=== PATIENT | female | born 1945 | race Caucasian/White ===

== ENCOUNTER 2016-12-16 10:35 | Inpatient (IN) | payer MEDICARE, OTHER ==
[~2016-12-16] VITALS: Ht 160 cm; Wt 72.8 kg
[2016-12-16] VITALS (12 sets, daily range): BP systolic 107–182; BP diastolic 61–113
[~2016-12-16 10:35] MED LIST: APIX5TAB PO; ASPI-586 PO; ATOR20TA66 PO; BENZ200C51 PO; CARV25TA PO; CITA20TA7 PO; CLOP75TA28 PO; CLOP75TA69 PO; FLUT1DIS26 IH; FURO20TA4 PO; INSTAFLEX PO; IPRA3AMP INH; LEVO750T9 PO; LISI10TA2 PO; MELO15TA39 PO; MULT-35 PO; PRED10TA22 PO
[2016-12-16] MEDS ORDERED: RT-ALBUTEROL/IPRATROPIUM 3 ML (DUONEB) VIAL ONE (10:50)
[2016-12-16] MEDS ORDERED: RT-ALBUTEROL/IPRATROPIUM 3 ML (DUONEB) VIAL IH STA (10:54)
[2016-12-16 10:58] LABS: BASOPHILS % (AUTO) 1 % (0-10); EOSINOPHILS % (AUTO) 0 % (0-10); LYMPHOCYTES # (AUTO) 0.6 X 10^3 (1.0-4.0); LYMPHOCYTES % (AUTO) 8 % (12-44); MEAN CORPUSCULAR HEMOGLOBIN 29 PG (25-34); MEAN CORPUSCULAR HGB CONC 31 G/DL (32-36); MEAN CORPUSCULAR VOLUME 93 FL (80-99); MEAN PLATELET VOLUME 9.7 FL (7.4-10.4); MONOCYTES # (AUTO) 0.4 X 10^3 (0.0-1.0); MONOCYTES % (AUTO) 6 % (0-12); NEUTROPHILS # (AUTO) 6.8 X 10^3 (1.8-7.8); NEUTROPHILS % (AUTO) 86 % (42-75); PLATELET COUNT 345 10^3/uL (130-400); RED BLOOD COUNT 4.11 10^6/uL (4.35-5.85); RED CELL DISTRIBUTION WIDTH 15.8 % (10.0-14.5); WHITE BLOOD COUNT 7.9 10^3/uL (4.3-11.0)
[2016-12-16] MEDS ORDERED: DILTIAZEM 25 MG/5 ML INJ (CARDIZEM) VIAL IVP ONE (11:00)
[2016-12-16] MEDS ORDERED: DILTIAZEM DRIP 100 MG in SODIUM CHLORIDE (ADD-VANTAGE) 100 ML IV SCH (11:00)
[2016-12-16] MEDS ORDERED: RT-ALBUTEROL/IPRATROPIUM 3 ML (DUONEB) VIAL INH ONE (11:00)
[2016-12-16] MEDS ORDERED: methylPREDNISolone 125 MG (Solu-MEDROL) VIAL IVP ONE (11:00)
[2016-12-16 11:06] LABS: ABG BASE EXCESS 3.8 MMOL/L (-2.5-2.5); ABG HCO3 28 MMOL/L (23-27); ABG OXYGEN SATURATION 99 % (94-100); ABG PCO2 43 MMHG (35-45); ABG PH 7.43 (7.37-7.43); ABG PO2 118 MMHG (79-93); ABG TCO2 29.1 MMOL/L (21.0-31.0)
[2016-12-16] MEDS ORDERED: RT-ALBUTEROL SULF 2.5 MG/3 ML PRE-MIX VIAL INH STA (11:06)
[2016-12-16 11:07] LABS: ALLENS TEST YES-POS
[2016-12-16 11:08] LABS: INR 1.1 (0.8-1.4); PROTHROMBIN TIME PATIENT 13.5 SEC (12.2-14.7)
[2016-12-16 11:08] LABS: PATIENT TEMP 99.8
[2016-12-16] MEDS ORDERED: RT-IPRATROPIUM (ATROVENT) 0.5MG/2.5ML AMP IH ONE (11:15)
[2016-12-16 11:16] LABS: ALANINE AMINOTRANSFERASE 15 U/L (0-55); ALBUMIN 3.6 G/DL (3.2-4.5); ANION GAP 12 MMOL/L (5-14); ASPARTATE AMINO TRANSFERASE 30 U/L (5-34); BILIRUBIN,TOTAL 1.2 MG/DL (0.1-1.0); BLOOD UREA NITROGEN 13 MG/DL (7-18); BUN/CREATININE RATIO 17; CALCIUM 9.2 MG/DL (8.5-10.1); CARBON DIOXIDE 26 MMOL/L (21-32); CHLORIDE 100 MMOL/L (98-107); CREATININE SERUM 0.77 MG/DL (0.60-1.30); GFR ESTIMATED > 60; GLUCOSE 128 MG/DL (70-105); MAGNESIUM 1.7 MG/DL (1.8-2.4); SODIUM 138 MMOL/L (135-145); TOTAL PROTEIN 7.1 G/DL (6.4-8.2)
[2016-12-16 11:17] LABS: POTASSIUM 4.4 MMOL/L (3.6-5.0)
[2016-12-16 11:22] LABS: BASOPHILS % (MANUAL) 1 %; LYMPHOCYTES % (MANUAL) 9 %; NEUTROPHILS % (MANUAL) 81 %
[2016-12-16 11:23] LABS: MYOGLOBIN SERUM 52.2 NG/ML (10.0-92.0)
--- NOTE | 2016-12-16 11:59 | Diagnostic Imaging Report ---
INDICATION: Shortness of air FINDINGS: Portable view of the chest demonstrates normal development of some mild patchy infiltrates in the right mid and lower lung. Cardiomegaly is stable. The vascularity is normal. There are no effusions. IMPRESSION: There's been interval development of some patchy infiltrates in the right mid and lower lung. Cardiomegaly is stable. Dictated by: Dictated on workstation # [id number]
--- NOTE | 2016-12-16 12:06 | ED General ---
General Chief Complaint: Respiratory Problems Stated Complaint: SOA Nursing Triage Note: PT TO ROOM 8 PT VERY SOA, LABORED BREATHING, WHEEZING Nursing Sepsis Screen: No Definite Risk Source of Information: Patient, Old Records, Other (Dr. Neal) Exam Limitations: Physical Impairments History of Present Illness Time Seen by Provider: 10:45 Initial Comments This 71-year-old woman with atrial fibrillation and COPD presents to the emergency room in respiratory distress and in atrial fibrillation with RVR. She was seen in Dr. Neal's office on Wednesday and was started on steroids and antibiotics for bronchitis. She had not been compliant with her Advair. Advair was restarted on Wednesday. She also has not been taking her Eliquis due to cost. She was to follow-up with Dr. Hamilton regarding anticoagulation use. Allergies and Home Medications Allergies Coded Allergies: No Known Drug Allergies (Unverified , 08/27/16) Home Medications Atorvastatin Calcium 20 Mg Tablet 20 MG PO DAILY (Reported) Carvedilol 25 Mg Tablet 25 MG PO BID (Reported) Citalopram Hydrobromide 20 Mg Tablet 20 MG PO HS (Reported) Clopidogrel Bisulfate 75 Mg Tablet 75 MG PO DAILY (Reported) Doxycycline Monohydrate 100 Mg Capsule 100 MG PO BID (Reported) FILLED 12/14/16 #14 FOR A 7 DAY THERAPY Fluticasone/Salmeterol 1 Each Blst.w.dev 1 PUFF IH BID (Reported) Guaifenesin/Codeine Phosphate 118 Ml Liquid 5 ML PO Q4H PRN PRN COUGH (Reported ) HAS NOT STARTED YET Hydrocodone/Chlorphen P-Stirex 473 Ml Chey.er.12h 5 ML PO Q12H PRN PRN COUGH ( Reported) Ipratropium/Albuterol Sulfate 3 Ml Ampul.neb 3 ML IH BID (Reported) Lisinopril 10 Mg Tablet 10 MG PO DAILY (Reported) Multivitamin 1 Each Tablet 1 TAB PO DAILY (Reported) Prednisone 10 Mg Tab 10 MG PO UD (Reported) FILLED 12/14/16 #16 FOR A 6 DAY THERAPY / 4 TABS PO QD X 2 DAYS, THEN 2 TABS QD X 4 DAYS Constitutional: no symptoms reported EENTM: no symptoms reported Respiratory: see HPI Cardiovascular: see HPI Gastrointestinal: no symptoms reported Genitourinary: no symptoms reported Musculoskeletal: no symptoms reported Skin: no symptoms reported Psychiatric/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: No Symptoms Reported Hematologic/Lymphatic: No Symptoms Reported Past Fbczdfb-Hqschw-Umnkgl Hx Patient Social History Alcohol Use: Denies Use Recreational Drug Use: No Smoking Status: Former Smoker Type Used: Cigarettes Former Smoker/When Quit: Oct 11, 2004 Recent Foreign Travel: No Contact w/Someone Who Travel: No Recent Infectious Disease Expo: No Recent Hopitalizations: No Immunizations Up To Date Date of Pneumonia Vaccine: Sep 17, 2015 Surgeries HX Surgeries: Yes (CARDIAC CATH X 3--STENTS X 4) Surgeries: Cardiac, Coronary Stent, Tubal Ligation Respiratory Hx Respiratory Disorders: Yes Respiratory Disorders: Pneumonia, COPD Cardiovascular Hx Cardiac Disorders: Yes Cardiac Disorders: Atrial Fibrillation, Coronary Artery Disease, Heart Attack, High Cholesterol, Hypertension 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 Hx 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 Disorders: 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 Genitourinary Hx Genitourinary Disorders: No Gastrointestinal Hx Gastrointestinal Disorders: No Musculoskeletal Hx Musculoskeletal Disorders: Yes Musculoskeletal Disorders: Rheumatoid Arthritis Endocrine Hx Endocrine Disorders: No HEENT HX ENT Disorders: No Cancer Hx Cancer: No Psychosocial Hx Psychiatric Problems: No Integumentary HX Skin/Integumentary Disorder: No Blood Transfusions Hx Blood Disorders: No Family Medical History Family Medial History: Cardiovascular disease 19 MOTHER Diabetes mellitus 19 MOTHER Hypertension 19 MOTHER Physical Exam-Suspected Sepsis Physical Exam Vital Signs Vital Sign - Last 12Hours Capillary Refill : Less Than 3 Seconds Blood Pressure Mean: 136 General Appearance: WD/WN Moderate Distress HEENT: PERRL/EOMI Normal ENT Inspection Respiratory: Accessory Muscle Use Decreased Breath Sounds Respiratory Distress Wheezing Cardiovascular: No Edema No Murmur Irregularly Irregular Tachycardia Gastrointestinal: Non Tender Soft Extremity: Normal Capillary Refill Normal Inspection No Pedal Edema Neurologic/Psychiatric: Alert Oriented x3 No Motor/Sensory Deficits Normal 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-XII Norm as Tested Skin: normal color warm/dry Progress/Results/Core Measures Suspected Sepsis Recent Fever Within 48 Hours: No Infection Criteria Present: None New/Unexplained Altered Menta: No Sepsis Screen: No Definite Risk Sepsis Diagnosis: SIRS Temperature:98.9 Pulse: 97 Respiratory Rate: 36 Laboratory Tests 12/16/16 10:45: White Blood Count 7.9 12/17/16 04:17: White Blood Count 6.3 Blood Pressure 182 /113 Mean: 136 Laboratory Tests 12/16/16 10:45: Creatinine 0.77, INR Comment 1.1, Platelet Count 345, Total Bilirubin 1.2H 12/17/16 04:17: Creatinine 0.58L, Platelet Count 288, Total Bilirubin 1.4H 12/18/16 05:00: Creatinine 0.61 Results/Orders Lab Results Laboratory Tests Test 12/16/16 10:45 12/16/16 10:52 12/16/16 12:10 12/17/16 04:17 Range/Units Activated Partial Thromboplast Time 23 L 24-35 SEC Alanine Aminotransferase (ALT/SGPT) 15 15 0-55 U/L Albumin 3.6 3.4 3.2-4.5 G/DL Alkaline Phosphatase 95 74 40-136 U/L Anion Gap 12 12 5-14 MMOL/L Aspartate Amino Transf (AST/SGOT) 30 28 5-34 U/L B-Type Natriuretic Peptide 405.2 H <100.0 PG/ML BUN/Creatinine Ratio 17 19 Basophils # (Auto) 0.0 0.0-0.1 10^3/uL Basophils % (Manual) 1 % Basophils (%) (Auto) 1 0-10 % Blood Morphology Comment NORMAL Blood Urea Nitrogen 13 11 7-18 MG/DL C-Reactive Protein High Sensitivity 3.35 H 0.00-0.50 MG/DL Calcium Level 9.2 8.2 L 8.5-10.1 MG/DL Carbon Dioxide Level 26 22 21-32 MMOL/L Chloride Level 100 104 98-107 MMOL/L Creatinine 0.77 0.58 L 0.60-1.30 MG/DL Eosinophils # (Auto) 0.0 0.0-0.3 10^3/uL Eosinophils (%) (Auto) 0 0-10 % Estimat Glomerular Filtration Rate > 60 > 60 Glucose Level 128 H 147 H 70-105 MG/DL Hematocrit 38 35 35-52 % Hemoglobin 11.9 10.8 L 11.5-16.0 G/DL INR Comment 1.1 0.8-1.4 Lymphocytes # (Auto) 0.6 L 1.0-4.0 X 10^3 Lymphocytes % (Manual) 9 % Lymphocytes (%) (Auto) 8 L 12-44 % Magnesium Level 1.7 L 2.0 1.8-2.4 MG/DL Mean Corpuscular Hemoglobin 29 28 25-34 PG Mean Corpuscular Hemoglobin Concent 31 L 31 L 32-36 G/DL Mean Corpuscular Volume 93 92 80-99 FL Mean Platelet Volume 9.7 10.0 7.4-10.4 FL Monocytes # (Auto) 0.4 0.0-1.0 X 10^3 Monocytes % (Manual) 9 % Monocytes (%) (Auto) 6 0-12 % Myoglobin 52.2 10.0-92.0 NG/ML Neutrophils # (Auto) 6.8 1.8-7.8 X 10^3 Neutrophils % (Manual) 81 % Neutrophils (%) (Auto) 86 H 42-75 % Platelet Count 345 288 130-400 10^3/uL Potassium Level 4.4 4.6 3.6-5.0 MMOL/L Prothrombin Time 13.5 12.2-14.7 SEC Red Blood Count 4.11 L 3.83 L 4.35-5.85 10^6/uL Red Cell Distribution Width 15.8 H 15.6 H 10.0-14.5 % Sodium Level 138 138 135-145 MMOL/L Total Bilirubin 1.2 H 1.4 H 0.1-1.0 MG/DL Total Protein 7.1 6.5 6.4-8.2 G/DL Troponin I < 0.30 <0.30 NG/ML White Blood Count 7.9 6.3 4.3-11.0 10^3/uL Garry Test YES-POS Arterial Blood Base Excess 3.8 H -2.5-2.5 MMOL/L Arterial Blood HCO3 28 H 23-27 MMOL/L Arterial Blood Oxygen Saturation 99 94-100 % Arterial Blood Partial Pressure CO2 43 35-45 MMHG Arterial Blood Partial Pressure O2 118 H 79-93 MMHG Arterial Blood Total CO2 29.1 21.0-31.0 MMOL/L Arterial Blood pH 7.43 7.37-7.43 Blood Gas Inspired Oxygen 2L Blood Gas Patient Temperature 99.8 Blood Gas Puncture Site LT BRACH Blood Gas Ventilator Setting NO Lactic Acid Level 1.1 0.5-2.0 MMOL/L Cholesterol Level 82 < 200 MG/DL HDL Cholesterol 22 L 40-60 MG/DL LDL Cholesterol Direct 48 1-129 MG/DL Phosphorus Level 2.4 2.3-4.7 MG/DL Thyroid Stimulating Hormone (TSH) 0.28 L 0.35-4.94 UIU/ML Triglycerides Level 74 <150 MG/DL VLDL Cholesterol 15 5-40 MG/DL Test 12/17/16 09:20 12/18/16 05:00 Range/Units Urine Bacteria NEGATIVE /HPF Urine Bilirubin NEGATIVE NEGATIVE Urine Casts NONE /LPF Urine Clarity CLEAR Urine Color YELLOW Urine Crystals NONE /LPF Urine Culture Indicated NO Urine Glucose (UA) NEGATIVE NEGATIVE Urine Ketones NEGATIVE NEGATIVE Urine Leukocyte Esterase NEGATIVE NEGATIVE Urine Mucus NEGATIVE /LPF Urine Nitrite NEGATIVE NEGATIVE Urine Other /HPF Urine Protein 2+ H NEGATIVE Urine RBC NONE /HPF Urine RBC (Auto) NEGATIVE NEGATIVE Urine Specific [place] 1.010 L 1.016-1.022 Urine Squamous Epithelial Cells RARE /HPF Urine Urobilinogen NORMAL NORMAL MG/DL Urine WBC NONE /HPF Urine pH 7 5-9 Anion Gap 11 5-14 MMOL/L BUN/Creatinine Ratio 20 Blood Urea Nitrogen 12 7-18 MG/DL Calcium Level 8.3 L 8.5-10.1 MG/DL Carbon Dioxide Level 25 21-32 MMOL/L Chloride Level 104 98-107 MMOL/L Creatinine 0.61 0.60-1.30 MG/DL Estimat Glomerular Filtration Rate > 60 Glucose Level 112 H 70-105 MG/DL Potassium Level 3.7 3.6-5.0 MMOL/L Sodium Level 140 135-145 MMOL/L Micro Results Microbiology 12/16/16 Blood Culture - Preliminary, Resulted No growth 12/16/16 Blood Culture - Preliminary, Resulted No growth 12/16/16 Influenza Types A,B Antigen (KENA) - Final, Complete My Orders Orders-JACQUELINE GONZALEZ MD Cbc With Automated Diff (12/16/16 10:49) Magnesium (12/16/16 10:49) Chest 1 View, Ap/Pa Only (12/16/16 10:49) Ekg Tracing (12/16/16 10:49) Cardiac Profile 1 (12/16/16 10:49) Comprehensive Metabolic Panel (12/16/16 10:49) Myoglobin Serum (12/16/16 10:49) Protime With Inr (12/16/16 10:49) Partial Thromboplastin Time (12/16/16 10:49) O2 (12/16/16 10:49) Monitor-Rhythm Ecg Trace Only (12/16/16 10:49) Saline Lock/Iv-Start (12/16/16 10:49) Diltiazem Injection (Cardizem Injection) (12/16/16 11:00) Sodium Chloride (Ad... W/Diltiazem Drip (12/16/16 11:00) Albuterol/Ipra Inhalation Soln (Duoneb I (12/16/16 11:00) Svn Sm Volume Nebulizer Rt-Rfs (12/16/16 10:51) Methylprednisolone Sod Succ (Solu-Medrol (12/16/16 11:00) Albuterol/Ipra Inhalation Soln (Duoneb I (12/16/16 10:50) Lactic Acid Analyzer (12/16/16 10:53) Blood Culture (12/16/16 10:53) Sputum Culture (12/16/16 10:53) Ua Culture If Indicated (12/16/16 10:53) Vital Signs Adult Sepsis Patie Q1HR (12/16/16 10:53) Albuterol/Ipra Inhalation Soln (Duoneb I (12/16/16 10:54) Arterial Blood Gas (12/16/16 10:56) BNP (12/16/16 10:56) Hs C Reactive Protein (12/16/16 10:56) Manual Differential (12/16/16 10:45) Bipap Rt-Rfs (12/16/16 11:06) Albuterol Pre-Mix Nebs (Rt) (Proventil P (12/16/16 11:06) Ipratropium 0.02% Neb Solution (Atrovent (12/16/16 11:15) Svn Sm Volume Nebulizer Rt-Rfs (12/16/16 11:06) Svn Sm Volume Nebulizer Rt-Rfs (12/16/16 11:06) Influenza A And B Antigens (12/16/16 11:59) Piperacillin Sodium/Tazobactam (Zosyn Vi (12/16/16 12:15) Enoxaparin Injection (Lovenox Injection) (12/16/16 12:30) Medications Given in ED Vital Signs/I&O Vital Sign - Last 12Hours 12/17/16 12/17/16 12/18/16 12/18/16 21:32 21:39 00:00 01:00 Temp 98.2 Pulse 97 83 Resp 18 B/P 134/91 Pulse Ox 98 99 97 O2 Delivery Room Air O2 Flow Rate 2.00 2.00 12/18/16 12/18/16 12/18/16 12/18/16 02:58 04:00 08:48 08:53 Temp 97.6 Pulse 93 Resp 18 B/P 153/91 Pulse Ox 98 98 98 99 O2 Delivery Room Air O2 Flow Rate 1.50 1.50 Capillary Refill : Less Than 3 Seconds Blood Pressure Mean: 136 Progress Note #1: Time: 10:50 Progress Note Patient is still tight and wheezy after a DuoNeb treatment. She also received Solu-Medrol 125 mg. An hour-long treatment has been ordered. Dr. Neal presented to the emergency room and requested BiPAP. She also requests sepsis workup has she has a history of pneumonia. Progress Note #2: Time: 12:25 Progress Note Patient much improved after an hour long treatment. She continues on BiPAP. Zosyn has been ordered for treatment of pneumonia. Heart rate is stable in the 90s on Cardizem drip. Lovenox 1 was ordered for initial anticoagulation therapy. Progress Note #3: Time: 12:59 Progress Note Case was reviewed with Dr. Lin who agrees to consultation. ECG Initial ECG Impression Date: Dec 16, 2016 Initial ECG Impression Time: 10:45 Initial ECG Rate: 133 Initial ECG Rhythm: A Fib/Flutter Initial ECG Impression: Atrial Fibrillation w/RVR Comment Atrial fibrillation with rapid ventricular rate. No ST elevation or depression. Diagnostic Imaging Diagonstic Imaging: Xray Plain Films/CT/US/NM/MRI: chest Comments Chest x-ray viewed by me and report reviewed. See report below: NAME: KELLEY GARCIA [facility] REC#: [id number] PT STATUS: REG ER : 1945 PHYSICIAN: JACQUELINE GONZALEZ MD ADMIT DATE: 12/16/16/ER Draft Date of Exam:12/16/16 CHEST 1 VIEW, AP/PA ONLY INDICATION: Shortness of air FINDINGS: Portable view of the chest demonstrates normal development of some mild patchy infiltrates in the right mid and lower lung. Cardiomegaly is stable. The vascularity is normal. There are no effusions. IMPRESSION: There's been interval development of some patchy infiltrates in the right mid and lower lung. Cardiomegaly is stable. Dictated on workstation # [id number] Dict: 12/16/16 1156 Trans: 12/16/16 1159 [facility] [id number] Interpreted by: GLENYS FLORES MD Departure Communication Time/Spoke to Admitting Phy: 10:[address] Neal Time/Spoke to Consulting Physi: 12:25 Communication/Consulting Dr. Kim was notified of consultation 12:20. Message was left with Dr. Lin regarding consultation. Impression Impression: Primary Impression: Atrial fibrillation with RVR Additional Impressions: Respiratory failure Qualified Code: J96.00 - Acute respiratory failure, unspecified whether with hypoxia or hypercapnia Pneumonia Qualified Code: J18.9 - Pneumonia, unspecified organism COPD exacerbation Noncompliance with medication regimen Disposition: ADMITTED INPATIENT Condition: Improved Decision to Admit Reason: Admit from ER (General) Decision to Admit/Date: Dec 16, 2016 Time/Decision to Admit Time: 10:50 Departure-Patient Inst. Referrals: JEROME NEAL DO (PCP/Family) Primary Care Physician JACQUELINE GONZALEZ MD Dec 16, 2016 12:06
[2016-12-16] MEDS ORDERED: PIPERACILLIN SODIUM/TAZOBACTAM 4.5 GM in NS (IVPB) 100 ML IV ONE (12:15)
[2016-12-16] MEDS ORDERED: ENOXAPARIN 80 MG/0.8 ML (LOVENOX) SYR SC ONE (12:30)
[2016-12-16] MEDS ORDERED: CATHETER FLUSH 10 ML SYR IV PRN (14:15)
[2016-12-16] MEDS: DILTIAZEM DRIP 100 MG/NS 100 ML IV SCH ×2 (14:15)
[2016-12-16] MEDS ORDERED: FLU TRIvalent (5 YOA+) 2016-17 (AFLURIA) 0.5 ML IM ONE (14:45)
[2016-12-16] MEDS ORDERED: FLUT1DIS26 IH (16:12)
[2016-12-16] MEDS ORDERED: DOXY100C42 PO (16:12)
[2016-12-16] MEDS ORDERED: IPRA3AMP IH (16:12)
[2016-12-16] MEDS ORDERED: GUAI118L16 PO (16:12)
[2016-12-16] MEDS ORDERED: PRD10T PO (16:12)
[2016-12-16] MEDS ORDERED: HYDR473S34 PO (16:12)
--- NOTE | 2016-12-16 16:29 | Consultation-Cardiology ---
HPI-Cardiology Cardiology Consultation: Date of Consultation 12/16/16 Date of Admission 12-16-16 Attending Physician Terese Verde DO Admitting Physician Terese Verde DO Consulting Physician Ayden Fischer MD HPI: Chief Complaint: A-fib with RVR Ms. Lee is a 71 year old female admitted to ICU 9 from the ED with respiratory distress secondary to pneumonia. She was also found to be in a-fib with RVR. She has chronic a-fib. Her primary body component engineer is Dr. Hamilton. She has not seen him since her last admit to this hospital in August 2016. She reports increasing dyspnea with associated fever, chills and productive cough. She states she is feeling much better at this time. No c/o LE edema. No c/o syncope or near syncope. She states she was taking Eliquis for stroke prophylaxis, but d/t cost had not taken it for a few months. Review of Systems-Cardiology Review of Systems Constitutional: As described under HPI Eyes: No blurred vision, No drainage, No pain, No vision change Ears/Nose/Throat: No ear discharge, No ear pain, No nasal drainage, No ulcerations Respiratory: As described under HPI Cardiovascular: As described under HPI Gastrointestinal: No constipation, No diarrhea, No nausea, No vomiting, No stool coloration changes Genitourinary: No dysuria, No discharge, No frequency, No hematuria, No urgency Skin: No rash, No skin related problems, No ulcerations Psychiatric/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: No anxiety, No depression, No focal weakness, No seizure, No syncope Hematologic: No bleeding abnormalities AZJ-Wnwqip-Srpktr Hx Patient Social History Alcohol Use: Denies Use Recreational Drug Use: No Smoking Status: Former Smoker Former smoker/When Quit: Oct 11, 2004 Type Used: Cigarettes Recent Foreign Travel: No Recent Infectious Disease Expo: No Hospitalization with Isolation: Denies Physical Abuse Screen: No Sexual Abuse: No Immunizations Up To Date Date of Pneumonia Vaccine: Sep 17, 2015 Past Medical History PMH As described under Assessment. Family Medical History Family Medical History: She reports her mother had coronary artery disease and hypertension. Family History: 19 MOTHER Cardiovascular disease Hypertension Diabetes mellitus Allergies and Home Medications Allergies Coded Allergies: No Known Drug Allergies (Unverified , 08/27/16) Home Medications Atorvastatin Calcium 20 Mg Tablet 20 MG PO DAILY (Reported) Carvedilol 25 Mg Tablet 25 MG PO BID (Reported) Citalopram Hydrobromide 20 Mg Tablet 20 MG PO HS (Reported) Clopidogrel Bisulfate 75 Mg Tablet 75 MG PO DAILY (Reported) Doxycycline Monohydrate 100 Mg Capsule 100 MG PO BID (Reported) FILLED 12/14/16 #14 FOR A 7 DAY THERAPY Fluticasone/Salmeterol 1 Each Blst.w.dev 1 PUFF IH BID (Reported) Guaifenesin/Codeine Phosphate 118 Ml Liquid 5 ML PO Q4H PRN PRN COUGH (Reported ) HAS NOT STARTED YET Hydrocodone/Chlorphen P-Stirex 473 Ml Chey.er.12h 5 ML PO Q12H PRN PRN COUGH ( Reported) Ipratropium/Albuterol Sulfate 3 Ml Ampul.neb 3 ML IH BID (Reported) Lisinopril 10 Mg Tablet 10 MG PO DAILY (Reported) Multivitamin 1 Each Tablet 1 TAB PO DAILY (Reported) Prednisone 10 Mg Tab 10 MG PO UD (Reported) FILLED 12/14/16 #16 FOR A 6 DAY THERAPY / 4 TABS PO QD X 2 DAYS, THEN 2 TABS QD X 4 DAYS Physical Exam-Cardiology Physical Exam Vital Signs/I&O Vital Sign - Last 12Hours 12/16/16 12/16/16 12/16/16 12/16/16 10:35 10:35 10:55 11:05 Temp 98.9 Pulse 130 104 Resp 40 40 B/P 182/113 187/126 Pulse Ox 99 99 95 97 O2 Delivery Nasal Cannula Nasal Cannula O2 Flow Rate 2 2 2 2.00 12/16/16 12/16/16 12/16/16 12/16/16 11:05 13:25 13:45 14:00 Temp 98.9 Pulse 97 86 87 Resp 36 26 B/P 125/84 Pulse Ox 99 99 O2 Flow Rate 50 2.00 12/16/16 12/16/16 12/16/16 12/16/16 14:01 14:45 15:45 16:00 Pulse 98 89 Resp 14 14 B/P 128/84 124/76 Pulse Ox 97 96 96 97 O2 Delivery Nasal Cannula Nasal Cannula O2 Flow Rate 3.00 2.00 2.00 3.00 12/16/16 12/16/16 12/16/16 16:00 17:00 18:00 Temp 98.1 Pulse 72 70 76 Resp 21 34 B/P 107/67 115/69 112/61 Pulse Ox 96 96 97 O2 Delivery Nasal Cannula Nasal Cannula Nasal Cannula O2 Flow Rate 2.00 2.00 2.00 Capillary Refill : Less Than 3 Seconds Constitutional: appears stated ageNo apparent distress, well-developed well- nourished HEENT: PERRLNo discharge, hearing is well preserved oral hygience is goodNo ulceration, No xanthelasmas are seen Neck: No carotid bruit, carotid pulses are 2 + bilaterally Respiratory: No accessory muscle use, No respiratory distress, other ( diminish RLL to RML with bilat exp wheezes and prolonged expiratory phase) Cardiovascular: irregularly irregularNo JVD, S1 and S2 Gastrointestinal: No tender, soft roundNo spleenomegaly Extremities: No clubbing, No cyanosis, No significant edema Neurologic/Psychiatric: alert oriented x 3 power is 5/5 both on sides Skin: normal color warm/dry Data Review Labs Laboratory Tests 12/16/16 10:45: Activated Partial Thromboplast Time 23L, Alanine Aminotransferase (ALT/SGPT) 15 , Albumin 3.6, Alkaline Phosphatase 95, Anion Gap 12, Aspartate Amino Transf ( AST/SGOT) 30, B-Type Natriuretic Peptide 405.2H, BUN/Creatinine Ratio 17, Basophils # (Auto) 0.0, Basophils % (Manual) 1, Basophils (%) (Auto) 1, Blood Morphology Comment NORMAL, Blood Urea Nitrogen 13, C-Reactive Protein High Sensitivity 3.35H, Calcium Level 9.2, Carbon Dioxide Level 26, Chloride Level 100, Creatinine 0.77, Eosinophils # (Auto) 0.0, Eosinophils (%) (Auto) 0, Estimat Glomerular Filtration Rate > 60, Glucose Level 128H, Hematocrit 38, Hemoglobin 11.9, INR Comment 1.1, Lymphocytes # (Auto) 0.6L, Lymphocytes % ( Manual) 9, Lymphocytes (%) (Auto) 8L, Magnesium Level 1.7L, Mean Corpuscular Hemoglobin 29, Mean Corpuscular Hemoglobin Concent 31L, Mean Corpuscular Volume 93, Mean Platelet Volume 9.7, Monocytes # (Auto) 0.4, Monocytes % (Manual) 9, Monocytes (%) (Auto) 6, Myoglobin 52.2, Neutrophils # (Auto) 6.8, Neutrophils % (Manual) 81, Neutrophils (%) (Auto) 86H, Platelet Count 345, Potassium Level 4.4 , Prothrombin Time 13.5, Red Blood Count 4.11L, Red Cell Distribution Width 15.8H, Sodium Level 138, Total Bilirubin 1.2H, Total Protein 7.1, Troponin I < 0.30, White Blood Count 7.9 12/16/16 10:52: Garry Test YES-POS, Arterial Blood Base Excess 3.8H, Arterial Blood HCO3 28H, Arterial Blood Oxygen Saturation 99, Arterial Blood Partial Pressure CO2 43, Arterial Blood Partial Pressure O2 118H, Arterial Blood Total CO2 29.1, Arterial Blood pH 7.43, Blood Gas Inspired Oxygen 2L, Blood Gas Patient Temperature 99.8, Blood Gas Puncture Site LT BRACH, Blood Gas Ventilator Setting NO 12/16/16 12:10: Lactic Acid Level 1.1 Microbiology 12/16/16 Influenza Types A,B Antigen (KENA) - Final, Complete Radiology NAME: KELLEY LEE [facility] REC#: [id number] PT STATUS: REG ER : 1945 PHYSICIAN: JACQUELINE GONZALEZ MD ADMIT DATE: 12/16/16/ER Draft Date of Exam:12/16/16 CHEST 1 VIEW, AP/PA ONLY INDICATION: Shortness of air FINDINGS: Portable view of the chest demonstrates normal development of some mild patchy infiltrates in the right mid and lower lung. Cardiomegaly is stable. The vascularity is normal. There are no effusions. IMPRESSION: There's been interval development of some patchy infiltrates in the right mid and lower lung. Cardiomegaly is stable. Dictated on workstation # [id number] Dict: 12/16/16 1156 Trans: 12/16/16 1159 [facility] [id number] Interpreted by: GLENYS FLORES MD Electronically signed by: ECG Impression ECG Initial ECG Impression: Atrial Fibrillation w/RVR A/P-Cardiology Assessment/Admission Diagnosis RLL, RML Pneumonia - management per medical/pulmonary services A-fib with RVR - currently controlled on Cardizem gtt Chronic a-fib CAD, last cor stenting at [facility] by Dr Hamilton more than 3 years ago, detail unavailable despite request to [facility] Echo of 08/28/16: LVEF 50%, mild to mod MR, diastolic dysfunction of LV Hyperlipidemia, managed by Dr Verde DM II, managed by Dr Verde Hypertension Non-compliance with OAC reportedly d/t cost Acute on chronic diastolic CHF - treat with diuretics Discussion and Recomendations RLL, RML pneumonia being managed by medical/pulmonary services. A-fib with RVR. She has a h/o chronic a-fib. Currently her rate is controlled with Cardizem gtt. Will change to oral Cardizem and stop the gtt. She has not been compliant with OAC d/t cost of Eliquis. We have discussed other OAC including Xarelto, Pradaxa and warfarin. She states she is concerned with increased bleeding risk documented in information she has reviewed and she wishes to take Eliquis. We will resume Eliquis 5mg BID. Dr. Hamilton is her primary body component engineer. She has a h/o CAD with stenting in the past, however exact details or unknown to us. She is on Plavix daily. We will continue Plavix. We will not start ASA tx since having her on all 3 agents places her at increased risk for bleeding. Monitor lab closely. D/t normal LVEF on echo of August 2016 and somewhat low blood pressure we will hold the Lisinopril for now. Replace electrolytes. Acute on chronic diastolic CHF we will start Lasix. Further recommendations will be based on her hospital course. We would like to thank the Hospitalist service for this consult. This consult is being scribed by Danielle Dockery APRN on behalf of Dr. Fischer after discussion regarding plan of care. Clinical Quality Measures DVT/VTE Risk/Contraindication: Risk Factor Score Per Nursin RFS Level Per Nursing on Admit: 4+=Very High Physician Assessment Physician Assessment Lungs: diminished air entry at both bases Cor: irreg A&R * As documented in our note above * Complex management due to multiple comorbidities * I spoke with her and answered questions SHY DOCKERY Dec 16, 2016 16:29 AYDEN FISCHER MD [facility] Dec 16, 2016 18:42
[2016-12-16] MEDS: NS IV 1000 ML 1,000 ML IV SCH (16:47)
[2016-12-16] MEDS ORDERED: DILTIAZEM 240 MG (CARDIZEM CD) CAP PO NR (17:15)
[2016-12-16] MEDS: ATORVASTATIN 40 MG (LIPITOR) TABLET PO SCH (20:30)
[2016-12-16] MEDS: APIXABAN 5 MG (ELIQUIS) TABLET PO SCH (20:30)
[2016-12-17] VITALS (10 sets, daily range): BP systolic 112–143; BP diastolic 69–91
[2016-12-17] MEDS: NS IV 1000 ML 1,000 ML IV SCH (01:40)
[2016-12-17 04:41] LABS: RED BLOOD COUNT 3.83 10^6/uL (4.35-5.85); RED CELL DISTRIBUTION WIDTH 15.6 % (10.0-14.5); WHITE BLOOD COUNT 6.3 10^3/uL (4.3-11.0)
[2016-12-17 05:11] LABS: ALANINE AMINOTRANSFERASE 15 U/L (0-55); ALBUMIN 3.4 G/DL (3.2-4.5); ANION GAP 12 MMOL/L (5-14); ASPARTATE AMINO TRANSFERASE 28 U/L (5-34); BILIRUBIN,TOTAL 1.4 MG/DL (0.1-1.0); BLOOD UREA NITROGEN 11 MG/DL (7-18); BUN/CREATININE RATIO 19; CALCIUM 8.2 MG/DL (8.5-10.1); CARBON DIOXIDE 22 MMOL/L (21-32); CHLORIDE 104 MMOL/L (98-107); CHOLESTEROL 82 MG/DL (< 200); CREATININE SERUM 0.58 MG/DL (0.60-1.30); DIRECT LDL 48 MG/DL (1-129); GFR ESTIMATED > 60; GLUCOSE 147 MG/DL (70-105); PHOSPHORUS 2.4 MG/DL (2.3-4.7); POTASSIUM 4.6 MMOL/L (3.6-5.0); SODIUM 138 MMOL/L (135-145); TOTAL PROTEIN 6.5 G/DL (6.4-8.2); TRIGLYCERIDES 74 MG/DL (<150); VLDL CHOLESTEROL 15 MG/DL (5-40)
[2016-12-17 05:35] LABS: THYROID STIMULATING HORMONE 0.28 UIU/ML (0.35-4.94)
[2016-12-17] MEDS ORDERED: MAGNESIUM 1 GM/100 ML IVPB 100 ML IV SCH (06:00)
[2016-12-17] MEDS ORDERED: KCL 20 MEQ TAB (K-DUR) PO SCH (06:00)
[2016-12-17] MEDS ORDERED: POTASSIUM CL 10MEQ/50ML IVPB 50 ML IV SCH (06:00)
--- NOTE | 2016-12-17 07:33 | Pulmonary Consultation ---
History of Present Illness History of Present Illness Date of Consultation 12/17/16 07:28 Date of Admission History of Present Illness 71yo with hx of afib, and COPD presented to ED secondary to acute respiratory and found to be in afib with RVR. She was treated in Dr. Verde's office on Wednesday with steroids and Abx for acute bronchitis. Pt has advair at home however she has not been compliant with it she was restarted on advair on Wednesday. She also has not been taking her Eliquis due to cost. She has had many prior episodes. I am consulted for pulmonary management. Allergies and Home Medications Allergies Coded Allergies: No Known Drug Allergies (Unverified , 08/27/16) Home Medications Atorvastatin Calcium 20 Mg Tablet 20 MG PO DAILY (Reported) Carvedilol 25 Mg Tablet 25 MG PO BID (Reported) Citalopram Hydrobromide 20 Mg Tablet 20 MG PO HS (Reported) Clopidogrel Bisulfate 75 Mg Tablet 75 MG PO DAILY (Reported) Doxycycline Monohydrate 100 Mg Capsule 100 MG PO BID (Reported) FILLED 12/14/16 #14 FOR A 7 DAY THERAPY Fluticasone/Salmeterol 1 Each Blst.w.dev 1 PUFF IH BID (Reported) Guaifenesin/Codeine Phosphate 118 Ml Liquid 5 ML PO Q4H PRN PRN COUGH (Reported ) HAS NOT STARTED YET Hydrocodone/Chlorphen P-Stirex 473 Ml Chey.er.12h 5 ML PO Q12H PRN PRN COUGH ( Reported) Ipratropium/Albuterol Sulfate 3 Ml Ampul.neb 3 ML IH BID (Reported) Lisinopril 10 Mg Tablet 10 MG PO DAILY (Reported) Multivitamin 1 Each Tablet 1 TAB PO DAILY (Reported) Prednisone 10 Mg Tab 10 MG PO UD (Reported) FILLED 12/14/16 #16 FOR A 6 DAY THERAPY / 4 TABS PO QD X 2 DAYS, THEN 2 TABS QD X 4 DAYS Past Hanbqdj-Yaxkbc-Ngoxyr Hx Patient Social History Alcohol Use: Denies Use Recreational Drug Use: No Smoking Status: Former Smoker Type Used: Cigarettes Former Smoker/When Quit: Oct 11, 2004 Recent Foreign Travel: No Contact w/Someone Who Travel: No Recent Infectious Disease Expo: No Recent Hopitalizations: No Physical Abuse Screen: No Sexual Abuse: No Immunizations Up To Date Date of Pneumonia Vaccine: Sep 17, 2015 Surgeries HX Surgeries: Yes (CARDIAC CATH X 3--STENTS X 4) Surgeries: Cardiac, Coronary Stent, Tubal Ligation Respiratory Hx Respiratory Disorders: Yes Respiratory Disorders: Pneumonia, COPD Cardiovascular Hx Cardiac Disorders: Yes Cardiac Disorders: Atrial Fibrillation, Coronary Artery Disease, Heart Attack, High Cholesterol, Hypertension 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 Hx 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 Disorders: 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 Genitourinary Hx Genitourinary Disorders: No Gastrointestinal Hx Gastrointestinal Disorders: No Musculoskeletal Hx Musculoskeletal Disorders: Yes Musculoskeletal Disorders: Rheumatoid Arthritis Endocrine Hx Endocrine Disorders: No HEENT HX ENT Disorders: No Cancer Hx Cancer: No Psychosocial Hx Psychiatric Problems: No Integumentary HX Skin/Integumentary Disorder: No Blood Transfusions Hx Blood Disorders: No Family Medical History Family Medial History: Cardiovascular disease 19 MOTHER Diabetes mellitus 19 MOTHER Hypertension 19 MOTHER Exam Exam Vital Signs Date Time Temp Pulse Resp B/P Pulse Ox O2 Delivery O2 Flow Rate FiO2 12/17/16 06:00 74 31 125/87 99 Nasal Cannula 3.00 12/17/16 05:00 73 23 135/81 98 Nasal Cannula 3.00 12/17/16 04:00 98 3.00 12/17/16 04:00 96.8 74 28 132/91 98 Nasal Cannula 3.00 12/17/16 03:00 70 18 112/70 99 Nasal Cannula 3.00 12/17/16 02:00 75 26 119/80 99 Nasal Cannula 3.00 12/17/16 01:00 78 12/17/16 01:00 78 30 118/69 98 Nasal Cannula 3.00 12/17/16 00:00 97 3.00 12/17/16 00:00 98.3 89 9 121/81 99 Nasal Cannula 3.00 12/16/16 23:00 84 28 128/88 93 Nasal Cannula 3.00 12/16/16 22:00 86 33 115/96 97 Nasal Cannula 3.00 12/16/16 21:00 97 26 139/92 94 Nasal Cannula 3.00 12/16/16 20:00 98.2 80 27 136/82 99 Nasal Cannula 3.00 12/16/16 20:00 97 3.00 12/16/16 19:00 80 28 123/82 99 Nasal Cannula 3.00 12/16/16 19:00 80 12/16/16 18:44 98 2.00 12/16/16 18:00 76 112/61 97 Nasal Cannula 2.00 12/16/16 17:00 70 34 115/69 96 Nasal Cannula 2.00 12/16/16 16:00 98.1 72 21 107/67 96 Nasal Cannula 2.00 12/16/16 16:00 97 3.00 12/16/16 15:45 89 14 124/76 96 Nasal Cannula 2.00 12/16/16 14:45 98 14 128/84 96 Nasal Cannula 2.00 12/16/16 14:01 97 3.00 12/16/16 14:00 87 12/16/16 13:45 125/84 12/16/16 13:25 98.9 86 26 99 2.00 12/16/16 11:05 97 36 99 50 12/16/16 11:05 104 40 187/126 97 2.00 12/16/16 10:55 95 2 12/16/16 10:35 99 Nasal Cannula 2 12/16/16 10:35 98.9 130 40 182/113 99 Nasal Cannula 2 I & O 12/17/16 07:00 Intake Total 1950 ml Output Total 0 ml Balance 1950 ml General Appearance: WD/WN Moderate Distress HEENT: PERRL/EOMI Normal ENT Inspection Respiratory: Accessory Muscle Use Decreased Breath Sounds Cardiovascular: No Edema No Murmur Irregularly Irregular Tachycardia Capillary Refill: Less Than 3 Seconds Extremity: Normal Capillary Refill Normal Inspection No Pedal Edema Neurologic/Psychiatric: Alert Oriented x3 No Motor/Sensory Deficits 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 Diastolic dysfunction EF 50% -hep lock IVF -Continue lasix Afib Transfer to 4th floor. Clinical Quality Measures DVT/VTE Risk/Contraindication: Risk Factor Score Per Nursin RFS Level Per Nursing on Admit: 4+=Very High JEWEL THAKKAR DO Dec 17, 2016 07:33
--- NOTE | 2016-12-17 07:46 | Diagnostic Imaging Report ---
INDICATION: Pneumonia followup. COMPARISON: 12/16/2016 FINDINGS: The multifocal heterogeneous opacities in the right lung continue to improve. No new airspace disease. No pleural effusion or pneumothorax. Stable marked cardiomegaly. IMPRESSION: 1. Continued improvement of right lung multifocal heterogeneous opacities. Dictated by: Dictated on workstation # [id number]
[2016-12-17] MEDS ORDERED: RT-ALBUTEROL/IPRATROPIUM 3 ML (DUONEB) VIAL INH PRN (08:15)
[2016-12-17] MEDS: DILTIAZEM 240 MG (CARDIZEM CD) CAP PO SCH (08:33)
[2016-12-17] MEDS: FUROSEMIDE 40 MG (LASIX) TAB PO SCH (08:34)
[2016-12-17] MEDS: CLOPIDOGREL 75 MG (PLAVIX) TABLET PO SCH (08:34)
[2016-12-17] MEDS: APIXABAN 5 MG (ELIQUIS) TABLET PO SCH ×2 (08:34→21:55)
--- NOTE | 2016-12-17 09:02 | Progress Note-Cardiology ---
Cardiology SOAP Progress Note Subjective: Sitting up in bed with spouse at the bedside. States she feels shortness of breath is somewhat better. No c/o CP, palpitations, syncope or near syncope. C /O loose productive cough of yellow sputum. Objective: I&O/Vital Signs Vital Sign - Last 12Hours 12/16/16 12/17/16 12/17/16 12/17/16 23:00 00:00 00:00 01:00 Temp 98.3 Pulse 84 89 78 Resp 28 9 30 B/P 128/88 121/81 118/69 Pulse Ox 93 99 97 98 O2 Delivery Nasal Cannula Nasal Cannula Nasal Cannula O2 Flow Rate 3.00 3.00 3.00 3.00 12/17/16 12/17/16 12/17/16 12/17/16 01:00 02:00 03:00 04:00 Temp 96.8 Pulse 78 75 70 74 Resp 26 18 28 B/P 119/80 112/70 132/91 Pulse Ox 99 99 98 O2 Delivery Nasal Cannula Nasal Cannula Nasal Cannula O2 Flow Rate 3.00 3.00 3.00 12/17/16 12/17/16 12/17/16 12/17/16 04:00 05:00 06:00 06:38 Pulse 73 74 Resp 23 31 B/P 135/81 125/87 Pulse Ox 98 98 99 100 O2 Delivery Nasal Cannula Nasal Cannula O2 Flow Rate 3.00 3.00 3.00 2.00 12/17/16 12/17/16 12/17/16 12/17/16 07:00 08:15 08:34 09:44 Temp 98.4 Pulse 66 Pulse Ox 92 O2 Flow Rate 2.00 2.00 Intake and Output 12/17/16 00:00 Intake Total 900 ml Balance 900 ml Weight (Pounds): 160 Weight (Ounces): 8.0 Weight (Calculated Kilograms): [id number] Constitutional: appears stated ageNo apparent distress, well-developed well- nourished Respiratory: No accessory muscle use, No respiratory distress, other ( diminish RLL to RML with bilat exp wheezes and prolonged expiratory phase) Cardiovascular: irregularly irregularNo JVD, S1 and S2 Gastrointestional: No tender, soft roundNo spleenomegaly Extremities: No clubbing, No cyanosis, No significant edema Neurologic/Psychiatric: alert oriented x 3 power is 5/5 both on sides Skin: normal color warm/dry Results/Procedures: Labs Laboratory Tests 12/16/16 10:45: Activated Partial Thromboplast Time 23L, Alanine Aminotransferase (ALT/SGPT) 15 , Albumin 3.6, Alkaline Phosphatase 95, Anion Gap 12, Aspartate Amino Transf ( AST/SGOT) 30, B-Type Natriuretic Peptide 405.2H, BUN/Creatinine Ratio 17, Basophils # (Auto) 0.0, Basophils % (Manual) 1, Basophils (%) (Auto) 1, Blood Morphology Comment NORMAL, Blood Urea Nitrogen 13, C-Reactive Protein High Sensitivity 3.35H, Calcium Level 9.2, Carbon Dioxide Level 26, Chloride Level 100, Creatinine 0.77, Eosinophils # (Auto) 0.0, Eosinophils (%) (Auto) 0, Estimat Glomerular Filtration Rate > 60, Glucose Level 128H, Hematocrit 38, Hemoglobin 11.9, INR Comment 1.1, Lymphocytes # (Auto) 0.6L, Lymphocytes % ( Manual) 9, Lymphocytes (%) (Auto) 8L, Magnesium Level 1.7L, Mean Corpuscular Hemoglobin 29, Mean Corpuscular Hemoglobin Concent 31L, Mean Corpuscular Volume 93, Mean Platelet Volume 9.7, Monocytes # (Auto) 0.4, Monocytes % (Manual) 9, Monocytes (%) (Auto) 6, Myoglobin 52.2, Neutrophils # (Auto) 6.8, Neutrophils % (Manual) 81, Neutrophils (%) (Auto) 86H, Platelet Count 345, Potassium Level 4.4 , Prothrombin Time 13.5, Red Blood Count 4.11L, Red Cell Distribution Width 15.8H, Sodium Level 138, Total Bilirubin 1.2H, Total Protein 7.1, Troponin I < 0.30, White Blood Count 7.9 12/16/16 10:52: Garry Test YES-POS, Arterial Blood Base Excess 3.8H, Arterial Blood HCO3 28H, Arterial Blood Oxygen Saturation 99, Arterial Blood Partial Pressure CO2 43, Arterial Blood Partial Pressure O2 118H, Arterial Blood Total CO2 29.1, Arterial Blood pH 7.43, Blood Gas Inspired Oxygen 2L, Blood Gas Patient Temperature 99.8, Blood Gas Puncture Site LT BRACH, Blood Gas Ventilator Setting NO 12/16/16 12:10: Lactic Acid Level 1.1 12/17/16 04:17: Alanine Aminotransferase (ALT/SGPT) 15, Albumin 3.4, Alkaline Phosphatase 74, Anion Gap 12, Aspartate Amino Transf (AST/SGOT) 28, BUN/Creatinine Ratio 19, Blood Urea Nitrogen 11, Calcium Level 8.2L, Carbon Dioxide Level 22, Chloride Level 104, Creatinine 0.58L, Estimat Glomerular Filtration Rate > 60, Glucose Level 147H, Hematocrit 35, Hemoglobin 10.8L, Magnesium Level 2.0, Mean Corpuscular Hemoglobin 28, Mean Corpuscular Hemoglobin Concent 31L, Mean Corpuscular Volume 92, Mean Platelet Volume 10.0, Platelet Count 288, Potassium Level 4.6, Red Blood Count 3.83L, Red Cell Distribution Width 15.6H, Sodium Level 138, Total Bilirubin 1.4H, Total Protein 6.5, White Blood Count 6.3, Cholesterol Level 82, HDL Cholesterol 22L, LDL Cholesterol Direct 48, Phosphorus Level 2.4, Thyroid Stimulating Hormone (TSH) 0.28L, Triglycerides Level 74, VLDL Cholesterol 15 12/17/16 09:20: Urine Bacteria NEGATIVE, Urine Bilirubin NEGATIVE, Urine Casts NONE, Urine Clarity CLEAR, Urine Color YELLOW, Urine Crystals NONE, Urine Culture Indicated NO, Urine Glucose (UA) NEGATIVE, Urine Ketones NEGATIVE, Urine Leukocyte Esterase NEGATIVE, Urine Mucus NEGATIVE, Urine Nitrite NEGATIVE, Urine Other , Urine Protein 2+H, Urine RBC NONE, Urine RBC (Auto) NEGATIVE, Urine Specific [place] 1.010L, Urine Squamous Epithelial Cells RARE, Urine Urobilinogen NORMAL , Urine WBC NONE, Urine pH 7 Microbiology 12/16/16 Influenza Types A,B Antigen (KENA) - Final, Complete Procedures NAME: [facility] REC#: [id number] PT STATUS: ADM IN : 1945 PHYSICIAN: JEWEL THAKKAR DO ADMIT DATE: 12/16/16/ICU Signed Date of Exam: 12/17/16 CHEST 1 VIEW, AP/PA ONLY INDICATION: Pneumonia followup. COMPARISON: 12/16/2016 FINDINGS: The multifocal heterogeneous opacities in the right lung continue to improve. No new airspace disease. No pleural effusion or pneumothorax. Stable marked cardiomegaly. IMPRESSION: 1. Continued improvement of right lung multifocal heterogeneous opacities. Dictated by: Dictated on workstation # [id number] Dict: 12/17/16 0733 Trans: 12/17/16 0837 CASEY [id number] Interpreted by: SKYLER MCPHERSON MD Electronically signed by:SKYLER MCPHERSON MD 12/17/16 0839 A/P: Assessment: RLL, RML Pneumonia - management per medical/pulmonary services A-fib with RVR - currently controlled on Cardizem gtt Chronic a-fib CAD, last cor stenting at [facility] by Dr Hamilton more than 3 years ago, detail unavailable despite request to [facility] Echo of 08/28/16: LVEF 50%, mild to mod MR, diastolic dysfunction of LV Hyperlipidemia, managed by Dr Verde DM II, managed by Dr Verde Hypertension Non-compliance with OAC reportedly d/t cost Acute on chronic diastolic CHF - treat with diuretics Hyperthyroidism indicated on lab of 12-17-16 - management per medical services Plan: RLL, RML pneumonia being managed by medical/pulmonary services. Chronic A-fib - rate currently controlled on oral Cardizem She has not been compliant with OAC d/t cost of Eliquis. We have discussed other OAC including Xarelto, Pradaxa and warfarin. She states she is concerned with increased bleeding risk documented in information she has reviewed and she wishes to take Eliquis. She has a h/o CAD with stenting in the past, however exact details or unknown to us. 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 We have continued Plavix. We will not start ASA tx since having her on all 3 agents places her at increased risk for bleeding. Monitor lab closely. Blood pressure improved - we will start BB (she was on Coreg at home) we will restart at a lower dose Acute on chronic diastolic CHF - continue diuretics Suppressed TSH on lab of 12-17-16 indicative of hyperthyroidism - management per Medical Services One episode of hematuria Physician Assessment Physician Assessment Lungs: fair air entry, diminished at the bases Cor: irreg A&R * As documented in our note above that I updated at the time of this dictation * Will add carvedilol back to regimen as tolerated * I spoke with Mrs Lee and her in detail and answered questions * I discussed her case with Dr Verde. Dr Verde will investigate and manage hematuria. We can temporarily hold off on Eliquis, if so directed by SHY Mcgill Dec 17, 2016 09:02 MK GRACE MD FACP FAC CCDS Dec 17, 2016 10:44
[2016-12-17] MEDS ORDERED: CARVEDILOL 6.25 MG (COREG) TAB PO NR (09:24)
[2016-12-17] MEDS: RT-ALBUTEROL/IPRATROPIUM 3 ML (DUONEB) VIAL INH SCH ×3 (09:43→21:32)
[2016-12-17] MEDS: RT-ADVAIR HFA 115/21 MCG PER PUFF IH SCH ×2 (09:44→21:32)
[2016-12-17 10:02] LABS: BILIRUBIN,URINE NEGATIVE (NEGATIVE); KETONES,URINE NEGATIVE (NEGATIVE); LEUKOCYTE ESTERASE ,URINE NEGATIVE (NEGATIVE); NITRITE,URINE NEGATIVE (NEGATIVE); PH,URINE 7 (5-9); PROTEIN,URINE 2+ (NEGATIVE); UROBILINOGEN,URINE NORMAL (NORMAL)
[2016-12-17 10:14] LABS: SQUAMOUS EPITHELIAL CELL,UR RARE /HPF
[2016-12-17] MEDS: DILTIAZEM DRIP 100 MG/NS 100 ML IV SCH ×2 (10:15)
--- NOTE | 2016-12-17 10:49 | History & Physical-Hospitalist ---
HPI History of Present Illness: HPI/Chief Complaint CC: SOB HPI: This is a 71yoWF clinic pt of mine with hx of RA and COPD with PAF that presented to ER yesterday with SOB and wheezing. I had seen pt Wednesday due to wheezing since she was in distress and reported she had stopped her Advair without my advice 5 days prior. She was assessed to have wheezing on exam, placed on Doxy for bronchitis and steroids for AECOPD and resume Advair and neb treatments but she worsened and was in respiratory failure at time of assessment requiring BiPAP and Cardiology consult for AF with RVR. She had stopped her Eliquis that was initiated last hospital stay when PAF was documented on telemetry during pneumonia treatment because it was too expensive. Dr. Fischer Review: Pt is on Eliquis currently, which will need to be maintained to reduce risk of stroke. Pt has suspected hematuria, since pt states that she is bleeding in urine. Pt is able to move to 4th floor. 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 Pt was asked to collect urine sample for Ua, but has not yet done so. Pt stable for move to 4th floor. Pt is on Plavix and Eliquis. Patient Interview: Pt states that she believes that blood was in her urine. Dr. Neal informs pt that they will need to analyze urine sample. Pt agrees to this plan. Dr. Neal discusses options for blood thinners with pt, since pt previously stopped using Eliquis due to financial stress. Pt states that she is unsure if she fully recovered from previous pneumonia. Dr. Neal discusses with pt the possibility that pts COPD is advanced enough to require Advair each day. Since pt stopped using Advair without medical advice , this likely led to worsened condition. Physical exam stable. Pt has been seen by both Cardiology and Pulmonology Pt states that she saw Dr. Hamilton last April, and Dr. Neal encourages pt to follow -up with Cardiology soon after DC. Pt asks if she could see a public health administrator at [facility] instead. Dr. Neal informs pt that this is an option. Pt states that her RA recently became exacerbated, and she has begun to take meds again for this issue. Pt takes 4 Methotrexate once per week. Scribed by Miko Crump under the direct supervision of Dr. Neal. Source: patient, caregiver Exam Limitations: no limitations Date Seen 12/17/16 Attending Physician Terese Neal DO PCP Terese Neal DO Referring Physician Date of Admission Dec 16, 2016 at 12:27 Home Medications & Allergies Home Medications Reviewed patient Home Medication Reconciliation Form Allergies Coded Allergies: No Known Drug Allergies (Unverified , 08/27/16) Past Hgifpso-Cjoeub-Dwvgks Hx Patient Social History Marrital Status: Employed/Student: retired Alcohol Use: Denies Use Recreational Drug Use: No Smoking Status: Former Smoker Former smoker/When Quit: Oct 11, 2004 Type Used: Cigarettes Physical Abuse Screen: No Sexual Abuse: No Recent Foreign Travel: No Contact w/other who traveled: No Recent Hopitalizations: No Recent Infectious Disease Expo: No Immunizations Up To Date Date of Pneumonia Vaccine: Sep 17, 2015 Surgeries HX Surgeries: Yes (CARDIAC CATH X 3--STENTS X 4) Surgeries: Cardiac, Coronary Stent, Tubal Ligation Respiratory Hx Respiratory Disorders: Yes Respiratory Disorders: COPD, Pneumonia Cardiovascular Hx Cardiovascular Disorders: Yes Cardiac Disorders: Atrial Fibrillation, Coronary Artery Disease, Heart Attack, High Cholesterol, Hypertension 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 Hx 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 Disorders: No Genitourinary Hx Genitourinary Disorders: No Gastrointestinal Hx Gastrointestinal Disorders: No Musculoskeletal Hx Musculoskeletal Disorders: Yes Musculoskeletal Disorders: Rheumatoid Arthritis Endocrine Hx Endocrine Disorders: No HEENT HX ENT Disorders: No Cancer Hx Cancer: No Psychosocial Hx Psychiatric Problems: No Integumentary HX Skin/Integumentary Disorder: No Blood Transfusions Hx Blood Disorders: No Family Medical History Family Hx: Cardiovascular disease 19 MOTHER Diabetes mellitus 19 MOTHER Hypertension 19 MOTHER Review of Systems Constitutional: see HPI dizziness malaise weakness EENTM: no symptoms reported Respiratory: cough dyspnea on exertion short of breath wheezing Cardiovascular: palpitations Gastrointestinal: no symptoms reported Genitourinary: no symptoms reported Musculoskeletal: back pain Skin: no symptoms reported Psychiatric/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: No Symptoms Reported All Other Systems Reviewed Negative Unless Noted: Yes Physical Exam Physical Exam Vital Signs Vital Sign - Last 12Hours Capillary Refill : Less Than 3 Seconds General Appearance: No Apparent Distress WD/WN Anxious Chronically ill Eyes: Bilateral Eye Normal Inspection, Bilateral Eye PERRL HEENT: PERRL/EOMI Normal ENT Inspection Pharynx Normal Neck: Full Range of Motion Normal Inspection Non Tender Supple Carotid Bruit Respiratory: Chest Non Tender No Respiratory Distress Crackles Decreased Breath Sounds Rales Wheezing Cardiovascular: No Edema No Gallop No JVD No Murmur Normal Peripheral Pulses Irregularly Irregular Tachycardia Gastrointestinal: Normal Bowel Sounds No Organomegaly No Pulsatile Mass Non Tender Soft Back: Normal Inspection No CVA Tenderness No Vertebral Tenderness Extremity: Normal Capillary Refill Normal Inspection Normal Range of Motion Non Tender No Calf Tenderness No Pedal Edema Neurologic/Psychiatric: Alert Oriented x3 No Motor/Sensory Deficits Normal Mood/Affect Skin: Normal Color Warm/Dry Lymphatic: No Adenopathy Results Results/Procedures Lab Laboratory Tests 12/16/16 10:45 12/17/16 04:17 Assessment/Plan Admission Diagnosis Assessment: Acute respiratory failure with pneumonia requiring BiPAP, IV steroids and Nebs Severe COPD relatively recent diagnosis AF with RVR requiring Cardizem drip RA with recent restarting of methotrexate per Dr. Gary P Acute hematuria per patient but UA was negative for blood only protein likely appeared dark from proteinuria and not blood Assessment and Plan Plan: Transfer to 4th floor Ua due to hematuria suspicion Maintain Eliquis due to stroke risk Maintain Cardizem due to AF with RVR Clinical Quality Measures DVT/VTE Risk/Contraindication: Risk Factor Score Per Nursin RFS Level Per Nursing on Admit: 4+=Very High TERESE NEAL DO Dec 17, 2016 10:49
[2016-12-17] MEDS ORDERED: MAGNESIUM 1 GM/100 ML IVPB 100 ML IV ONE (17:15)
[2016-12-17] MEDS: ATORVASTATIN 40 MG (LIPITOR) TABLET PO SCH (21:54)
[2016-12-17] MEDS: CARVEDILOL 6.25 MG (COREG) TAB PO SCH (21:55)
[2016-12-18] VITALS: BP 134/91
[2016-12-18] MEDS: RT-ALBUTEROL/IPRATROPIUM 3 ML (DUONEB) VIAL INH SCH ×2 (02:58→08:46)
[2016-12-18 04:00] VITALS: BP 153/91
[2016-12-18 05:46] LABS: ANION GAP 11 MMOL/L (5-14); BLOOD UREA NITROGEN 12 MG/DL (7-18); BUN/CREATININE RATIO 20; CALCIUM 8.3 MG/DL (8.5-10.1); CARBON DIOXIDE 25 MMOL/L (21-32); CHLORIDE 104 MMOL/L (98-107); CREATININE SERUM 0.61 MG/DL (0.60-1.30); GFR ESTIMATED > 60; GLUCOSE 112 MG/DL (70-105); POTASSIUM 3.7 MMOL/L (3.6-5.0); SODIUM 140 MMOL/L (135-145)
[2016-12-18 08:00] VITALS: BP_SYST 110; BP_SYST 142; BP_DIAS 68; BP_DIAS 95
--- NOTE | 2016-12-18 08:27 | Pulmonary Progress Note ---
Exam Exam Vital Signs Date Time Temp Pulse Resp B/P Pulse Ox O2 Delivery O2 Flow Rate FiO2 12/18/16 04:00 97.6 93 18 153/91 98 Room Air 12/18/16 02:58 98 1.50 12/18/16 01:00 83 12/18/16 00:00 98.2 97 18 134/91 97 Room Air 12/17/16 21:39 99 2.00 12/17/16 21:32 98 2.00 12/17/16 20:40 Nasal Cannula 2.00 12/17/16 20:21 98.7 76 18 143/82 99 Nasal Cannula 2.00 12/17/16 19:00 72 12/17/16 16:00 97.0 78 18 134/81 98 Nasal Cannula 2.00 12/17/16 14:35 96.0 72 22 126/75 99 Nasal Cannula 2.00 12/17/16 14:35 Nasal Cannula 2.00 12/17/16 13:28 96.4 12/17/16 13:00 68 12/17/16 12:55 2.00 12/17/16 09:44 92 2.00 12/17/16 08:34 2.00 I & O 12/18/16 07:00 Intake Total 1010 ml Output Total 2300 ml Balance -1290 ml General Appearance: No Apparent Distress WD/WN Anxious Chronically ill HEENT: PERRL/EOMI Normal ENT Inspection Pharynx Normal Neck: Full Range of Motion Normal Inspection Non Tender Supple Carotid Bruit Respiratory: Chest Non Tender No Respiratory Distress Crackles Decreased Breath Sounds Rales Wheezing Cardiovascular: No Edema No Gallop No JVD No Murmur Normal Peripheral Pulses Irregularly Irregular Tachycardia Capillary Refill: Less Than 3 Seconds Extremity: Normal Capillary Refill Normal Inspection Normal Range of Motion Non Tender No Calf Tenderness No Pedal Edema Neurologic/Psychiatric: Alert Oriented x3 No Motor/Sensory Deficits Normal Mood/Affect Skin: Normal Color Warm/Dry Lymphatic: No Adenopathy Results Lab Laboratory Tests 12/16/16 10:45 12/17/16 04:17 12/18/16 05:00 Assessment/Plan Assessment/Plan Acute bronchitis/COPDAE - PT feels much improved today -Out patient PFT -SVNS -PT needs to be evaluated for home oxygen prior to discharge. Diastolic dysfunction EF 50% -hep lock IVF -Continue lasix Afib Will have pt f/u with me as out patient Clinical Quality Measures DVT/VTE Risk/Contraindication: Risk Factor Score Per Nursin RFS Level Per Nursing on Admit: 4+=Very High JEWEL THAKKAR DO Dec 18, 2016 08:27
[2016-12-18] MEDS: APIXABAN 5 MG (ELIQUIS) TABLET PO SCH (08:30)
[2016-12-18] MEDS: FUROSEMIDE 40 MG (LASIX) TAB PO SCH (08:31)
[2016-12-18] MEDS: CLOPIDOGREL 75 MG (PLAVIX) TABLET PO SCH (08:31)
[2016-12-18] MEDS: DILTIAZEM 240 MG (CARDIZEM CD) CAP PO SCH (08:31)
[2016-12-18] MEDS: CARVEDILOL 6.25 MG (COREG) TAB PO SCH (08:31)
[2016-12-18] MEDS: RT-ADVAIR HFA 115/21 MCG PER PUFF IH SCH (08:47)
--- NOTE | 2016-12-18 10:14 | Discharge Summary-Hospitalist ---
Diagnosis/Chief Complaint Date of Admission Dec 16, 2016 at 12:27 Date of Discharge Admission Diagnosis Assessment: Acute respiratory failure with pneumonia requiring BiPAP, IV steroids and Nebs Severe COPD relatively recent diagnosis AF with RVR requiring Cardizem drip RA with recent restarting of methotrexate per Dr. Abdirahman MATUTE Acute hematuria per patient but UA was negative for blood only protein likely appeared dark from proteinuria and not blood Discharge Diagnosis Assessment: Acute respiratory failure with pneumonia requiring BiPAP, IV steroids and Nebs Severe COPD relatively recent diagnosis AF with RVR requiring Cardizem drip RA with recent restarting of methotrexate per Dr. Abdirahman MATUTE Acute hematuria per patient but UA was negative for blood only protein likely appeared dark from proteinuria and not blood Plan: Transfer to 4th floor Ua due to hematuria suspicion Maintain Eliquis due to stroke risk Maintain Cardizem due to AF with RVR Reason Hospital Visit/Course CC: SOB HPI: This is a 71yoWF clinic pt of [facility] with hx of RA and COPD with PAF that presented to ER yesterday with SOB and wheezing. I had seen pt Wednesday due to wheezing since she was in distress and reported she had stopped her Advair without my advice 5 days prior. She was assessed to have wheezing on exam, placed on Doxy for bronchitis and steroids for AECOPD and resume Advair and neb treatments but she worsened and was in respiratory failure at time of assessment requiring BiPAP and Cardiology consult for AF with RVR. She had stopped her Eliquis that was initiated last hospital stay when PAF was documented on telemetry during pneumonia treatment because it was too expensive. Dr. Fischer Review: Pt is on Eliquis currently, which will need to be maintained to reduce risk of stroke. Pt has suspected hematuria, since pt states that she is bleeding in urine. Pt is able to move to 4th floor. 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 Pt was asked to collect urine sample for Ua, but has not yet done so. Pt stable for move to 4th floor. Pt is on Plavix and Eliquis. Patient Interview: Pt states that she believes that blood was in her urine. Dr. Neal informs pt that they will need to analyze urine sample. Pt agrees to this plan. Dr. Neal discusses options for blood thinners with pt, since pt previously stopped using Eliquis due to financial stress. Pt states that she is unsure if she fully recovered from previous pneumonia. Dr. Neal discusses with pt the possibility that pts COPD is advanced enough to require Advair each day. Since pt stopped using Advair without medical advice , this likely led to worsened condition. Physical exam stable. Pt has been seen by both Cardiology and Pulmonology Pt states that she saw Dr. Hamilton last April, and Dr. Neal encourages pt to follow -up with Cardiology soon after DC. Pt asks if she could see a general intern at [facility] instead. Dr. Neal informs pt that this is an option. Pt states that her RA recently became exacerbated, and she has begun to take meds again for this issue. Pt takes 4 Methotrexate once per week. Scribed by Miko Crump under the direct supervision of Dr. Neal. 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 Pt did not qualify for Home O2. Patient Interview: Pt states that she wants to go home. Pt states that she is still wheezing, but is much improved. Dr. Neal informs pt that pneumonia was ruled out. Physical exam stable, reveals improved lung sounds. Wheezing remains, but is much improved. Pt states that she is having regular BMs and urination. Pt states that she will work very carefully to organize her home medicine. Dr. Fischer has not yet seen pt today. Dr. Neal informs pt that she will likely be able to DC today, with close follow-ups with Pulmonology, Cardiology and Dr. Neal. Pt uses [facility] for pharmacy. Dr. Neal informs pt that was able to obtain a coupon for Eliquis. Pt has sufficient supply of neb treatments. Vital signs stable, pleasant, improved, walking in room with telemetry at the bedside Irregular irregular rhythm with heart rate of 72, wheezing in bases but subtle and much improved from respiratory failure on admission No edema Plan: DC with close follow-ups with Pulmonology, Cardiology, and Dr. Neal. Scribed by Miko Crump under the direct supervision of Dr. Neal. Discharge Summary Discharge Physical Examination Allergies: Coded Allergies: No Known Drug Allergies (Unverified , 08/27/16) Vitals & I&Os Vital Signs Date Time Temp Pulse Resp B/P Pulse Ox O2 Delivery O2 Flow Rate FiO2 12/18/16 09:30 98 1.50 12/18/16 04:00 97.6 93 18 153/91 Room Air Hospital Course Labs (last 24 hrs) Laboratory Tests 12/18/16 05:00: Anion Gap 11, BUN/Creatinine Ratio 20, Blood Urea Nitrogen 12, Calcium Level 8.3L, Carbon Dioxide Level 25, Chloride Level 104, Creatinine 0.61, Estimat Glomerular Filtration Rate > 60, Glucose Level 112H, Potassium Level 3.7, Sodium Level 140 Microbiology 12/16/16 Blood Culture - Preliminary, Resulted No growth 12/16/16 Influenza Types A,B Antigen (KENA) - Final, Complete Pending Labs Laboratory Tests 12/18/16 05:00: Anion Gap 11, BUN/Creatinine Ratio 20, Blood Urea Nitrogen 12, Calcium Level 8.3 , Carbon Dioxide Level 25, Chloride Level 104, Creatinine 0.61, Estimat Glomerular Filtration Rate > 60, Glucose Level 112, Potassium Level 3.7, Sodium Level 140 Discharge Home Medications: Active Scripts Active Coreg (Carvedilol) 12.5 Mg Tablet 12.5 Mg PO BID Prednisone 10 Mg Tab.ds.pk 10 Mg PO DAILY Take 6 tabs(60mg)daily,decrease by 1 tab(10MG)daily. Lasix (Furosemide) 20 Mg Tablet 20 Mg PO DAILY Diltiazem 24Hr Cd (Diltiazem HCl) 240 Mg Cap.er.24h 240 Mg PO DAILY Eliquis (Apixaban) 5 Mg Tablet 5 Mg PO BID Reported Advair 250-50 Diskus (Fluticasone/Salmeterol) 1 Each Blst.w.dev 1 Puff IH BID Cheratussin AC Syrup (Guaifenesin/Codeine Phosphate) 118 Ml Liquid 5 Ml PO Q4H PRN HAS NOT STARTED YET Hydrocodone-Chlorphen ER Susp (Hydrocodone/Chlorphen P-Stirex) 473 Ml Chey.er.12h 5 Ml PO Q12H PRN Iprat-Albut 0.5-3(2.5) mg/3 ml (Ipratropium/Albuterol Sulfate) 3 Ml Ampul.neb 3 Ml IH BID Daily Multiple Vitamin (Multivitamin) 1 Each Tablet 1 Tab PO DAILY Clopidogrel (Clopidogrel Bisulfate) 75 Mg Tablet 75 Mg PO DAILY Citalopram HBr (Citalopram Hydrobromide) 20 Mg Tablet 20 Mg PO HS Atorvastatin Calcium 20 Mg Tablet 20 Mg PO DAILY Instructions to patient/family Please see [facility] discharge instructions given to patient. Clinical Quality Measures DVT/VTE Risk/Contraindication: Risk Factor Score Per Nursin RFS Level Per Nursing on Admit: 4+=Very High JEROME NEAL DO Dec 18, 2016 10:14
[2016-12-18] MEDS ORDERED: APIX5TAB PO (10:23)
[2016-12-18] MEDS ORDERED: DILT240C90 PO (10:23)
[2016-12-18] MEDS ORDERED: FURO-125 PO (10:23)
[2016-12-18] MEDS ORDERED: PRED10TA22 PO (10:23)
[2016-12-18] MEDS ORDERED: CARV6.252 PO (10:23)
[2016-12-18] MEDS ORDERED: CARV12.52 PO (10:25)
--- NOTE | 2016-12-18 10:25 | Discharge Instructions ---
Discharge Instructions Discharge Medications New, Converted or Re-Newed RX: Transmitted to Pharmacy New Medications: Furosemide (Lasix) 20 Mg Tablet 20 MG PO DAILY #30 TAB Prednisone (Prednisone) 10 Mg Tab.ds.pk 10 MG PO DAILY Take 6 tabs(60mg)daily,decrease by 1 tab(10MG)daily. #21 PKG Apixaban (Eliquis) 5 Mg Tablet 5 MG PO BID #60 TAB Carvedilol (Carvedilol) 6.25 Mg Tablet 6.25 MG PO BID #60 TAB Diltiazem HCl (Diltiazem 24Hr Cd) 240 Mg Cap.er.24h 240 MG PO DAILY #30 CAP Continued Medications: Atorvastatin Calcium (Atorvastatin Calcium) 20 Mg Tablet 20 MG PO DAILY TAB Citalopram Hydrobromide (Citalopram HBr) 20 Mg Tablet 20 MG PO HS TAB Clopidogrel Bisulfate (Clopidogrel) 75 Mg Tablet 75 MG PO DAILY TAB Fluticasone/Salmeterol (Advair 250-50 Diskus) 1 Each Blst.w.dev 1 PUFF IH BID Guaifenesin/Codeine Phosphate (Cheratussin AC Syrup) 118 Ml Liquid 5 ML PO Q4H HAS NOT STARTED YET PRN COUGH Hydrocodone/Chlorphen P-Stirex (Hydrocodone-Chlorphen ER Susp) 473 Ml Chey.er.12h 5 ML PO Q12H PRN COUGH Ipratropium/Albuterol Sulfate (Iprat-Albut 0.5-3(2.5) mg/3 ml) 3 Ml Ampul.neb 3 ML IH BID EACH Multivitamin (Daily Multiple Vitamin) 1 Each Tablet 1 TAB PO DAILY TAB Discontinued Medications: Carvedilol (Carvedilol) 25 Mg Tablet 25 MG PO BID TAB Doxycycline Monohydrate (Doxycycline Monohydrate) 100 Mg Capsule 100 MG PO BID FILLED 12/14/16 #14 FOR A 7 DAY THERAPY Lisinopril (Lisinopril) 10 Mg Tablet 10 MG PO DAILY TAB Prednisone (Prednisone) 10 Mg Tab 10 MG PO UD FILLED 12/14/16 #16 FOR A 6 DAY THERAPY / 4 TABS PO QD X 2 DAYS, THEN 2 TABS QD X 4 DAYS Patient Instructions Goal/Follow Up Appt: Dr. Verde 12/21/[address] Fischer as scheduled Dr. Delia as scheduled Patient Instructions: Resume Advair, breathing treatments Activity & Diet Discharge Diet: Low Sodium Diet, Cardiac Diet Activity as Tolerated: Yes JEROME VERDE DO Dec 18, 2016 10:25
[2016-12-18 11:30] VITALS: BP 142/95
--- NOTE | 2016-12-18 13:58 | Physician Query ---
PQ-Uncertain Diagnosis Admission/Discharge Admission Date: Dec 16, 2016 at 12:27 Discharge Date: Dec 18, 2016 at 11:40 The medical record reflects the following clinical scenario: History/Risk Factors: COPD/Patient stopped using Advair. Clinical Findings: Resp-40,O2 sats 90%on room air,Labored breathing, tachypnea, PH7.43, PO2 118, HCO3-28. Treatment: Solu Medrol 125mg-IVP, 1 hour long DuoNeb treatment and nasal cannula on 2 liters oxygen. Question: Is acute respiratory failure a clinically valid diagnosis? Please document a response below. PHYSICIAN RESPONSE Diagnosis clinically valid: Yes, Conditon resolved Please remember a lack of response to the above will prompt a phone page by CDI/ coding staff. In responding to this query, please exercise your independent professional judgment. The purpose of this communication is to more accurately reflect the complexity of your patients condition. The fact that a question is asked does not imply that any particular answer is desired or expected. Thank you for your timely response to this clarification. Requestors name: Reba Jain [facility] Phone # ext [phone] or [phone] THIS PHYSICIAN QUERY FORM IS A PERMANENT PART OF THE MEDICAL RECORD REBA JAIN Dec 18, 2016 13:58 JEROME NEAL DO Dec 21, 2016 12:14
--- NOTE | 2016-12-18 14:07 | Physician Query ---
PQ-Conflicting Diagnosis Admission/Discharge Admission Date: Dec 16, 2016 at 12:27 Discharge Date: Dec 18, 2016 at 11:40 The medical record reflects the following clinical scenario: History/Risk Factors: COPD exacerbation,Acute Bronchitis and patient stopped using Advair. Clinical Findings: Chest x ray impression: There has been interval development of some patchy infiltrate in the right mid and lower lung. Resp 40, labored breathing. Treatment: IV Zosyn 100ml, hour long DuoNeb treatment, nasal cannula at 2 liters oxygen. Question: Do you agree with the impression of acute bronchitis/COPD exacerbation only per Dr. Lin? He said, " No leukocytosis, no fever, doubt pneumonia. Your discharge summary lists pneumonia. Please document a response below. PHYSICIAN RESPONSE Do you agree w/Consulting Dx?: Yes (acute exacerbation of COPD with bronchitis) Please remember a lack of response to the above will prompt a phone page by CDI/ coding staff. In responding to this query, please exercise your independent professional judgment. The purpose of this communication is to more accurately reflect the complexity of your patients condition. The fact that a question is asked does not imply that any particular answer is desired or expected. Thank you for your timely response to this clarification. Requestors name: Reba Jain [facility] Phone # [phone] or [phone] THIS PHYSICIAN QUERY FORM IS A PERMANENT PART OF THE MEDICAL RECORD REBA JAIN Dec 18, 2016 14:07 JEROME NEAL DO Dec 21, 2016 12:14
== END 2016-12-18 11:40 | disposition home or self-care (01) | DRG 189 ==
LOC: EDUNIT# 10:35 → ER 10:38 → ICU 12:27 → 4TH 12-17 14:53
PROVIDERS: ADMIT Internal Medicine; ATTEND Internal Medicine
DX: J96.00 Acute respiratory failure, unspecified whether with hypoxia or hypercapnia (principal); J44.0 Chronic obstructive pulmonary disease with (acute) lower respiratory infection; J20.9 Acute bronchitis, unspecified; J44.1 Chronic obstructive pulmonary disease with (acute) exacerbation; I11.0 Hypertensive heart disease with heart failure; I50.33 Acute on chronic diastolic (congestive) heart failure; I48.2 Chronic atrial fibrillation; I25.10 Atherosclerotic heart disease of native coronary artery without angina pectoris; E11.9 Type 2 diabetes mellitus without complications; M06.9 Rheumatoid arthritis, unspecified; I25.2 Old myocardial infarction; R80.9 Proteinuria, unspecified; Z91.120 Patient's intentional underdosing of medication regimen due to financial hardship; Z87.891 Personal history of nicotine dependence; Z79.01 Long term (current) use of anticoagulants; Z79.899 Other long term (current) drug therapy; Z79.02 Long term (current) use of antithrombotics/antiplatelets
CPT/HCPCS: 36415; 71010; 80048; 80053; 80061; 81000; 82805; 83605; 83735; 83874; 83880; 84100; 84443; 84484; 85007; 85027; 85610; 85730; 86141; 87040; 87804; 93005; 93041; 94640; 94664; 94760; 94761; 96365; 96366

== ENCOUNTER 2016-12-25 11:12 | Inpatient (IN) | payer MEDICARE, OTHER ==
[2016-12-25] VITALS (8 sets, daily range): BP systolic 104–153; BP diastolic 63–96
[~2016-12-25] VITALS: Ht 160 cm; Wt 71.4 kg
[~2016-12-25 11:12] MED LIST changes: +CARV12.52 PO; +CARV6.252 PO; +DILT240C90 PO; +DOXY100C42 PO; +FURO-125 PO; +GUAI118L16 PO; +HYDR473S34 PO; +IPRA3AMP IH; +PRD10T PO
--- NOTE | 2016-12-25 12:21 | ED General ---
General Stated Complaint: DIFFICULTY WALKING/NOT SLEEPING COLD SYMPTOMS Source of Information: Patient Exam Limitations: No Limitations History of Present Illness Time Seen by Provider: 11:55 Initial Comments Here with report of shortness of breath and not feeling well today. Fever noted. reports that she's been increasingly weak and short of breath. She was in the hospital 10 days ago for atrial fibrillation with rapid ventricular response. Does report increasing cough. Eating and drinking okay. Denies dysuria or diarrhea. Timing/Duration: 12-24 Hours, Getting Worse Severity: Moderate Associated Systoms: No Chest Pain, Cough Fever/Chills MalaiseNo Nausea/ Vomiting, Shortness of Air Weakness Allergies and Home Medications Allergies Coded Allergies: No Known Drug Allergies (Unverified , 08/27/16) Home Medications Apixaban 5 Mg Tablet #60 5 MG PO BID Prescribed by: JEROME NEAL on 12/18/16 1023 Atorvastatin Calcium 20 Mg Tablet 20 MG PO DAILY (Reported) Carvedilol 12.5 Mg Tablet #60 12.5 MG PO BID Prescribed by: SHY NOEL on 12/18/16 1025 Citalopram Hydrobromide 20 Mg Tablet 20 MG PO HS (Reported) Clopidogrel Bisulfate 75 Mg Tablet 75 MG PO DAILY (Reported) Diltiazem HCl 240 Mg Cap.er.24h #30 240 MG PO DAILY Prescribed by: JEROME NEAL on 12/18/16 1023 Fluticasone/Salmeterol 1 Each Blst.w.dev 1 PUFF IH BID (Reported) Furosemide 20 Mg Tablet #30 20 MG PO DAILY Prescribed by: JEROME NEAL on 12/18/16 1023 Guaifenesin/Codeine Phosphate 118 Ml Liquid 5 ML PO Q4H PRN PRN COUGH (Reported ) HAS NOT STARTED YET Hydrocodone/Chlorphen P-Stirex 473 Ml Chey.er.12h 5 ML PO Q12H PRN PRN COUGH ( Reported) Ipratropium/Albuterol Sulfate 3 Ml Ampul.neb 3 ML IH BID (Reported) Multivitamin 1 Each Tablet 1 TAB PO DAILY (Reported) Prednisone 10 Mg Tab.ds.pk #21 10 MG PO DAILY Take 6 tabs(60mg)daily,decrease by 1 tab(10MG)daily. Prescribed by: JEROME NEAL on 12/18/16 1023 Constitutional: see HPINo chills, fever malaise weakness EENTM: no symptoms reported Respiratory: see HPI cough short of breath wheezing Cardiovascular: palpitationsNo syncope Gastrointestinal: No abdominal pain, No diarrhea, No nausea, No vomiting Genitourinary: No dysuria, No pain : No Musculoskeletal: no symptoms reported Skin: change in color (few areas of bruising to previous IV sites)No rash Psychiatric/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: See HPI All Other Systems Reviewed Negative Unless Noted: Yes Past Ndaojji-Umorjv-Navvja Hx Patient Social History Alcohol Use: Denies Use Recreational Drug Use: No Smoking Status: Former Smoker Type Used: Cigarettes Former Smoker/When Quit: Oct 11, 2004 Recent Foreign Travel: No Contact w/Someone Who Travel: No Recent Hopitalizations: No Immunizations Up To Date Date of Pneumonia Vaccine: Sep 17, 2015 Surgeries HX Surgeries: Yes (CARDIAC CATH X 3--STENTS X 4) Surgeries: Cardiac, Coronary Stent, Tubal Ligation Respiratory Hx Respiratory Disorders: Yes Respiratory Disorders: Pneumonia, COPD Cardiovascular Hx Cardiac Disorders: Yes Cardiac Disorders: Atrial Fibrillation, Coronary Artery Disease, Heart Attack, High Cholesterol, Hypertension 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 Hx 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 Disorders: No 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 Genitourinary Hx Genitourinary Disorders: No Gastrointestinal Hx Gastrointestinal Disorders: No Musculoskeletal Hx Musculoskeletal Disorders: Yes Musculoskeletal Disorders: Rheumatoid Arthritis Endocrine Hx Endocrine Disorders: No HEENT HX ENT Disorders: No Cancer Hx Cancer: No Psychosocial Hx Psychiatric Problems: No Integumentary HX Skin/Integumentary Disorder: No Blood Transfusions Hx Blood Disorders: No Reviewed Nursing Assessment Reviewed/Agree w Nursing PMH: Yes Family Medical History Family Medial History: Cardiovascular disease 19 MOTHER Diabetes mellitus 19 MOTHER Hypertension 19 MOTHER Physical Exam-Suspected Sepsis Physical Exam Vital Signs Vital Sign - Last 12Hours 12/25/16 12:35 Temp 101.9 Pulse 154 Resp 18 B/P 144/101 Pulse Ox 96 O2 Delivery Nasal Cannula O2 Flow Rate 2 Capillary Refill : General Appearance: WD/WN Mild Distress HEENT: PERRL/EOMI Pharynx Normal Neck: Non Tender Supple Respiratory: Crackles Decreased Breath Sounds Inspiration Cardiovascular: No Murmur Irregularly Irregular Tachycardia Gastrointestinal: Non Tender Soft Back: Normal Inspection No CVA Tenderness No Vertebral Tenderness Extremity: Normal Capillary Refill Normal Range of Motion Non Tender Neurologic/Psychiatric: Alert Oriented x3 Skin: warm/dry ecchymosis Progress/Results/Core Measures Suspected Sepsis SIRS Temperature: Pulse: Respiratory Rate: Laboratory Tests 12/25/16 12:26: White Blood Count 19.5H Blood Pressure / Mean: Laboratory Tests 12/25/16 12:26: Creatinine 0.80, INR Comment 1.3, Platelet Count 536H, Total Bilirubin 2.5H Results/Orders Lab Results Laboratory Tests Test 12/25/16 12:26 Range/Units Activated Partial Thromboplast Time 27 24-35 SEC Alanine Aminotransferase (ALT/SGPT) 30 0-55 U/L Albumin 3.6 3.2-4.5 G/DL Alkaline Phosphatase 96 40-136 U/L Anion Gap 8 5-14 MMOL/L Aspartate Amino Transf (AST/SGOT) 28 5-34 U/L B-Type Natriuretic Peptide 260.0 H <100.0 PG/ML BUN/Creatinine Ratio 16 Basophils # (Auto) 0.0 0.0-0.1 10^3/uL Basophils (%) (Auto) 0 0-10 % Blood Urea Nitrogen 13 7-18 MG/DL Calcium Level 8.9 8.5-10.1 MG/DL Carbon Dioxide Level 27 21-32 MMOL/L Chloride Level 102 98-107 MMOL/L Creatinine 0.80 0.60-1.30 MG/DL Eosinophils # (Auto) 0.1 0.0-0.3 10^3/uL Eosinophils (%) (Auto) 0 0-10 % Estimat Glomerular Filtration Rate > 60 Glucose Level 105 70-105 MG/DL Hematocrit 41 35-52 % Hemoglobin 12.8 11.5-16.0 G/DL INR Comment 1.3 0.8-1.4 Lactic Acid Level 1.49 0.50-2.00 MMOL/L Lymphocytes # (Auto) 1.3 1.0-4.0 X 10^3 Lymphocytes % (Manual) 4 % Lymphocytes (%) (Auto) 6 L 12-44 % Mean Corpuscular Hemoglobin 28 25-34 PG Mean Corpuscular Hemoglobin Concent 31 L 32-36 G/DL Mean Corpuscular Volume 90 80-99 FL Mean Platelet Volume 9.8 7.4-10.4 FL Monocytes # (Auto) 1.3 H 0.0-1.0 X 10^3 Monocytes % (Manual) 9 % Monocytes (%) (Auto) 7 0-12 % Neutrophils # (Auto) 16.8 H 1.8-7.8 X 10^3 Neutrophils % (Manual) 87 % Neutrophils (%) (Auto) 86 H 42-75 % Platelet Count 536 H 130-400 10^3/uL Potassium Level 4.4 3.6-5.0 MMOL/L Prothrombin Time 16.0 H 12.2-14.7 SEC Red Blood Count 4.57 4.35-5.85 10^6/uL Red Cell Distribution Width 16.3 H 10.0-14.5 % Sodium Level 137 135-145 MMOL/L Stomatocytes SLIGHT Target Cells SLIGHT Total Bilirubin 2.5 H 0.1-1.0 MG/DL Total Protein 7.0 6.4-8.2 G/DL White Blood Count 19.5 H 4.3-11.0 10^3/uL My Orders Orders-PATRICIA CABAN MD Lactic Acid Analyzer (12/25/16 12:09) Blood Culture (12/25/16 12:09) Sputum Culture (12/25/16 12:09) Protime With Inr (12/25/16 12:09) Partial Thromboplastin Time (12/25/16 12:09) O2 (12/25/16 12:09) Saline Lock/Iv-Start (12/25/16 12:09) Vital Signs Adult Sepsis Patie Q1HR (12/25/16 12:09) Remove Rings In Anticipation O (12/25/16 12:09) BNP (12/25/16 13:28) Diltiazem Injection (Cardizem Injection) (12/25/16 14:00) Sodium Chloride (Ad... W/Diltiazem Drip (12/25/16 14:00) Saline Lock/Iv-Start (12/25/16 13:49) Ns Iv 1000 Ml (Sodium Chloride 0.9%) (12/25/16 13:49) Levofloxacin 750 Mg/150 Ml Iv (Levaquin (12/25/16 14:07) Heart Healthy (12/25/16 Lunch) Medications Given in ED Current Medications Medications Dose Ordered Sig/Kadeem Route Start Time Stop Time Status Last Admin Dose Admin Diltiazem HCl 10 mg 10 mg ONCE ONCE IVP 12/25/16 14:00 12/25/16 14:01 DC 12/25/16 14:21 10 MG Sodium Chloride 1,000 ml @ 0 mls/hr Q0M ONCE IV 12/25/16 13:49 12/25/16 13:50 DC 12/25/16 14:30 0 MLS/HR Vital Signs/I&O Vital Sign - Last 12Hours 12/25/16 12/25/16 12/25/16 12:35 12:40 14:20 Temp 101.9 99.8 Pulse 154 127 Resp 18 26 B/P 144/101 166/118 Pulse Ox 96 96 99 O2 Delivery Nasal Cannula Nasal Cannula O2 Flow Rate 2 2 2.00 Capillary Refill : Progress Note : Progress Note Seen and evaluated. IV, labs, EKG, chest x-ray, blood cultures and lactic acid ordered. Monitor patient. Patient noted to be an A. fib with rapid ventricular response. Also has elevated white count in the setting of fever and findings on x-ray of pneumonia. We will treat both concerns. For the A. fib, Cardizem 10 mg IV bolus and 10 mg per hour drip initiated. Normal saline 1 L bolus. For the pneumonia, blood cultures and lactic acid have been drawn. Lactic acid negative. Levaquin 750 mg IV initiated at 1400. I did discuss the case with Dr. Nael and she accepts patient for admission with request for cardiology consult. 1415: I did discuss the case with Dr. Fischer and he accepts patient in consult. Patient does have slightly elevated BNP which is likely related to the A. fib and pneumonia and probably not related to heart failure at this time. Currently we believe fluids are more valuable given her findings. This was discussed with Dr. Fischer and he agrees. Admit, inpatient status. ICU admission. ECG Initial ECG Impression Date: Dec 25, 2016 Initial ECG Impression Time: 12:26 Initial ECG Rate: 147 Initial ECG Rhythm: A Fib/Flutter Initial ECG Impression: Atrial Fibrillation w/RVR Comment Atrial fibrillation with rapid ventricular response Q's in the inferior leads but unchanged from previous. Normal axis. No evidence of ST elevation OR. Interpreted by me. Diagnostic Imaging Diagonstic Imaging: Xray Plain Films/CT/US/NM/MRI: chest Comments NAME: KELLEY GARCIA [facility] REC#: [id number] PT STATUS: REG ER : 1945 PHYSICIAN: JACQUE PRITCHETT APRN ADMIT DATE: 12/25/16/ER Signed Date of Exam: 12/25/16 CHEST PA/LAT (2 VIEW) INDICATION: Dyspnea and chills. 1250 hrs. Since 12/17/2016, there is continued cardiomegaly. There has been development of bilateral airspace disease with a predominantly central distribution. No pneumothorax is identified. No significant pleural fluid is identified. IMPRESSION: Patchy bilateral airspace disease likely represents areas of pneumonitis, edema, or developing pneumonia. Radiographic followup would be useful to document resolution. Dictated by: Dictated on workstation # [id number] Dict: 12/25/16 1243 Trans: 12/25/16 1316 DINORA [id number] Interpreted by: CLARIBEL NGO MD Electronically signed by:CLARIBEL NGO MD 12/25/16 1318 Reviewed: Reviewed by Me Departure Communication Time/Spoke to Admitting Phy: 14:00 Time/Spoke to Consulting Physi: 14:15 Impression Impression: Primary Impression: Bilateral pneumonia Qualified Code: J18.9 - Pneumonia, unspecified organism Additional Impression: Atrial fibrillation with rapid ventricular response Disposition: ADMITTED INPATIENT Condition: Stable Decision to Admit Reason: Admit from ER (General) Decision to Admit/Date: Dec 25, 2016 Time/Decision to Admit Time: 14:00 Departure-Patient Inst. Referrals: JEROME NEAL DO (PCP/Family) Primary Care Physician PATRICIA CABAN MD Dec 25, 2016 12:21
[2016-12-25 12:40] LABS: BASOPHILS % (AUTO) 0 % (0-10); EOSINOPHILS # (AUTO) 0.1 10^3/uL (0.0-0.3); EOSINOPHILS % (AUTO) 0 % (0-10); LYMPHOCYTES # (AUTO) 1.3 X 10^3 (1.0-4.0); LYMPHOCYTES % (AUTO) 6 % (12-44); MEAN CORPUSCULAR HEMOGLOBIN 28 PG (25-34); MEAN CORPUSCULAR HGB CONC 31 G/DL (32-36); MEAN CORPUSCULAR VOLUME 90 FL (80-99); MEAN PLATELET VOLUME 9.8 FL (7.4-10.4); MONOCYTES # (AUTO) 1.3 X 10^3 (0.0-1.0); MONOCYTES % (AUTO) 7 % (0-12); NEUTROPHILS # (AUTO) 16.8 X 10^3 (1.8-7.8); NEUTROPHILS % (AUTO) 86 % (42-75); PLATELET COUNT 536 10^3/uL (130-400); RED BLOOD COUNT 4.57 10^6/uL (4.35-5.85); RED CELL DISTRIBUTION WIDTH 16.3 % (10.0-14.5); WHITE BLOOD COUNT 19.5 10^3/uL (4.3-11.0)
[2016-12-25 12:58] LABS: INR 1.3 (0.8-1.4)
--- NOTE | 2016-12-25 13:01 | Diagnostic Imaging Report ---
INDICATION: Dyspnea and chills. 1250 hrs. Since 12/17/2016, there is continued cardiomegaly. There has been development of bilateral airspace disease with a predominantly central distribution. No pneumothorax is identified. No significant pleural fluid is identified. IMPRESSION: Patchy bilateral airspace disease likely represents areas of pneumonitis, edema, or developing pneumonia. Radiographic followup would be useful to document resolution. Dictated by: Dictated on workstation # [id number]
[2016-12-25 13:03] LABS: LYMPHOCYTES % (MANUAL) 4 %; NEUTROPHILS % (MANUAL) 87 %; STOMATOCYTES SLIGHT; TARGET CELLS SLIGHT
[2016-12-25 13:08] LABS: ALANINE AMINOTRANSFERASE 30 U/L (0-55); ALBUMIN 3.6 G/DL (3.2-4.5); ANION GAP 8 MMOL/L (5-14); ASPARTATE AMINO TRANSFERASE 28 U/L (5-34); BILIRUBIN,TOTAL 2.5 MG/DL (0.1-1.0); BLOOD UREA NITROGEN 13 MG/DL (7-18); BUN/CREATININE RATIO 16; CALCIUM 8.9 MG/DL (8.5-10.1); CARBON DIOXIDE 27 MMOL/L (21-32); CHLORIDE 102 MMOL/L (98-107); GFR ESTIMATED > 60; GLUCOSE 105 MG/DL (70-105); POTASSIUM 4.4 MMOL/L (3.6-5.0); SODIUM 137 MMOL/L (135-145)
[2016-12-25] MEDS ORDERED: NS IV 1000 ML 1,000 ML IV ONE (13:49)
[2016-12-25] MEDS ORDERED: DILTIAZEM 25 MG/5 ML INJ (CARDIZEM) VIAL IVP ONE (14:00)
[2016-12-25] MEDS ORDERED: DILTIAZEM DRIP 100 MG in SODIUM CHLORIDE (ADD-VANTAGE) 100 ML IV SCH (14:00)
[2016-12-25] MEDS ORDERED: LEVOFLOXACIN 750 MG/150 ML IV 150 ML IV STA (14:07)
[2016-12-25 15:43] LABS: BILIRUBIN,URINE NEGATIVE (NEGATIVE); KETONES,URINE NEGATIVE (NEGATIVE); LEUKOCYTE ESTERASE ,URINE 1+ (NEGATIVE); NITRITE,URINE NEGATIVE (NEGATIVE); PH,URINE 8 (5-9); PROTEIN,URINE 3+ (NEGATIVE); UROBILINOGEN,URINE NORMAL (NORMAL)
[2016-12-25] MEDS ORDERED: ALPRAZolam 0.25 MG (XANAX) TAB PO PRN (16:45)
[2016-12-25] MEDS ORDERED: IBUPROFEN TABLET 200 MG TAB PO PRN (16:45)
[2016-12-25] MEDS ORDERED: ACETAMINOPHEN 500 MG TAB (TYLENOL) PO PRN (16:45)
[2016-12-25] MEDS ORDERED: ONDANSETRON 4 MG/2 ML (SDV) Z0FRAN IVP PRN (16:45)
[2016-12-25] MEDS ORDERED: fentaNYL INJECTION 100 MCG/2 ML AMP IVP PRN (16:45)
--- NOTE | 2016-12-25 16:55 | Consultation-Cardiology ---
HPI-Cardiology Cardiology Consultation: Date of Consultation 12/25/16 Date of Admission 12/25/16 Attending Physician Terese Neal DO Admitting Physician Terese Neal DO Consulting Physician MK GRACE MD, FACP, FACC, [facility], [facility] Physician requesting consult: Dr Neal HPI: Chief Complaint: Reason for consultation: A Fib with RVR 71 yo woman recently treated for pneumonia by Dr Neal returns to the hospital with one day of shaking chills, fevers and malaise. Denies cp or palp or syncope or swelling. She was in a fib (chronic) with RVR (new) and we were asked to see her in consult Review of Systems-Cardiology Review of Systems Constitutional: malaise tirednessNo weight loss, No weight gain Eyes: No vision change Ears/Nose/Throat: No ear discharge, No nasal drainage, No recent hearing loss Respiratory: cough shortness of breath Cardiovascular: As described under HPI Gastrointestinal: No constipation, No diarrhea, No nausea, No vomiting Genitourinary: No dysuria, No hematuria, No urine frequency changes : No Musculoskeletal: No back pain, No joint pain Skin: No rash, No ulcerations Psychiatric/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: No focal weakness, No seizure, No syncope Hematologic: No bleeding abnormalities All Other Systems Reviewed Negative Unless Noted: Yes JMK-Jieulz-Yyplzs Hx Patient Social History Alcohol Use: Denies Use Recreational Drug Use: No Smoking Status: Former Smoker Former smoker/When Quit: Oct 11, 2004 Type Used: Cigarettes Recent Foreign Travel: No Recent Infectious Disease Expo: No Immunizations Up To Date Date of Pneumonia Vaccine: Sep 17, 2015 Past Medical History PMH As described under Assessment. Family Medical History Family Medical History: She reports her mother had coronary artery disease and hypertension. Family History: Cardiovascular disease 19 MOTHER Diabetes mellitus 19 MOTHER Hypertension 19 MOTHER Allergies and Home Medications Allergies Coded Allergies: No Known Drug Allergies (Unverified , 08/27/16) Home Medications Apixaban 5 Mg Tablet #60 5 MG PO BID Prescribed by: TERESE NEAL on 12/18/16 1023 Atorvastatin Calcium 20 Mg Tablet 20 MG PO DAILY (Reported) Carvedilol 12.5 Mg Tablet #60 12.5 MG PO BID Prescribed by: SHY NOEL on 12/18/16 1025 Citalopram Hydrobromide 20 Mg Tablet 20 MG PO HS (Reported) Clopidogrel Bisulfate 75 Mg Tablet 75 MG PO DAILY (Reported) Diltiazem HCl 240 Mg Cap.er.24h #30 240 MG PO DAILY Prescribed by: TERESE NEAL on 12/18/16 1023 Fluticasone/Salmeterol 1 Each Blst.w.dev 1 PUFF IH BID (Reported) Furosemide 20 Mg Tablet #30 20 MG PO DAILY Prescribed by: TERESE NEAL on 12/18/16 1023 Guaifenesin/Codeine Phosphate 118 Ml Liquid 5 ML PO Q4H PRN PRN COUGH (Reported ) HAS NOT STARTED YET Hydrocodone/Chlorphen P-Stirex 473 Ml Chey.er.12h 5 ML PO Q12H PRN PRN COUGH ( Reported) Ipratropium/Albuterol Sulfate 3 Ml Ampul.neb 3 ML IH BID (Reported) Multivitamin 1 Each Tablet 1 TAB PO DAILY (Reported) Prednisone 10 Mg Tab.ds.pk #21 10 MG PO DAILY Take 6 tabs(60mg)daily,decrease by 1 tab(10MG)daily. Prescribed by: TERESE NEAL on 12/18/16 1023 Physical Exam-Cardiology Physical Exam Vital Signs/I&O Vital Sign - Last 12Hours 12/25/16 12/25/16 12/25/16 12:35 12:40 14:20 Temp 101.9 99.8 Pulse 154 127 Resp 18 26 B/P 144/101 166/118 Pulse Ox 96 96 99 O2 Delivery Nasal Cannula Nasal Cannula O2 Flow Rate 2 2 2.00 Capillary Refill : Less Than 3 Seconds Constitutional: AAO x 3 well-developed well-nourished HEENT: PERRL EOMI hearing is well preservedNo xanthelasmas are seen Neck: carotid pulses are 2 + bilaterally with good upstrokes Respiratory: No accessory muscle use, other (Diminished air entry at the bases ; rhonchi over large airways; exp wheezes) Cardiovascular: irregularly irregular tachycardia systolic murmur (soft PATTI at cardiac base) Gastrointestinal: No tender, softNo guarding, audible bowel sounds Extremities: No clubbing, No cyanosis, No significant edema Neurologic/Psychiatric: grossly intact power is 5/5 both on sides Skin: warm/dry ecchymosisNo rash on exposed areas, No ulcerations on exposed areas Data Review Labs Laboratory Tests 3/10/17 12:26: Activated Partial Thromboplast Time 27, Alanine Aminotransferase (ALT/SGPT) 30, Albumin 3.6, Alkaline Phosphatase 96, Anion Gap 8, Aspartate Amino Transf (AST/ SGOT) 28, B-Type Natriuretic Peptide 260.0H, BUN/Creatinine Ratio 16, Basophils # (Auto) 0.0, Basophils (%) (Auto) 0, Blood Urea Nitrogen 13, Calcium Level 8.9 , Carbon Dioxide Level 27, Chloride Level 102, Creatinine 0.80, Eosinophils # ( Auto) 0.1, Eosinophils (%) (Auto) 0, Estimat Glomerular Filtration Rate > 60, Glucose Level 105, Hematocrit 41, Hemoglobin 12.8, INR Comment 1.3, Lactic Acid Level 1.49, Lymphocytes # (Auto) 1.3, Lymphocytes % (Manual) 4, Lymphocytes (%) (Auto) 6L, Mean Corpuscular Hemoglobin 28, Mean Corpuscular Hemoglobin Concent 31L, Mean Corpuscular Volume 90, Mean Platelet Volume 9.8, Monocytes # (Auto) 1.3H, Monocytes % (Manual) 9, Monocytes (%) (Auto) 7, Neutrophils # (Auto) 16.8H , Neutrophils % (Manual) 87, Neutrophils (%) (Auto) 86H, Platelet Count 536H, Potassium Level 4.4, Prothrombin Time 16.0H, Red Blood Count 4.57, Red Cell Distribution Width 16.3H, Sodium Level 137, Stomatocytes SLIGHT, Target Cells SLIGHT, Total Bilirubin 2.5H, Total Protein 7.0, White Blood Count 19.5H 12/25/16 15:30: Urine Bacteria FEWH, Urine Bilirubin NEGATIVE, Urine Casts NONE, Urine Clarity CLEAR, Urine Color YELLOW, Urine Crystals NONE, Urine Culture Indicated YES, Urine Glucose (UA) NEGATIVE, Urine Ketones NEGATIVE, Urine Leukocyte Esterase 1+ H, Urine Mucus NEGATIVE, Urine Nitrite NEGATIVE, Urine Protein 3+H, Urine RBC NONE, Urine RBC (Auto) 1+H, Urine Specific [place] 1.010L, Urine Urobilinogen NORMAL, Urine WBC 5-10H, Urine pH 8 Laboratory Tests 12/25/16 12:26 A/P-Cardiology Assessment/Admission Diagnosis Recurrent pneumonia (recently discharged after treatment for RLL, RML pneumonia ) being managed by Dr Neal Chronic atrial fibrillation with a currently rapid vent response Suspected COPD, being followed by Dr Lin No clinical evidence of decompensated CHF at this time (despite mildly elevated BNP) Quit tobacco use in 2003 after having smoked for a number of years CAD, h/o cor stenting x 4 on different occasion; last cor stenting at [facility] by Dr Hamilton more than 3 years ago, detail unavailable despite request to [facility] Echo of 08/28/16: LVEF 50%, mild to mod MR, diastolic dysfunction of LV Hyperlipidemia, managed by Dr Neal DM II, managed by Dr Neal Hypertension, controlled Non-compliance with OAC reportedly d/t cost Hyperthyroidism (TSH 0.28 on 12/17/16) being managed by Dr Neal Discussion and Recomendations * Treat heart rate with iv dilt * Pneumonia treatment is with Dr Neal * Change to previous oral regimen for vent rate control when pneumonia and clinical status starts to improve * Continue oral anticoag for stroke prophylaxis * Monitor labs MK GRACE MD FACP FAC CCDS Dec 25, 2016 16:55
[2016-12-25] MEDS: VANCOMYCIN 1 GM/NS 250 ML IVPB IV SCH ×2 (16:57)
[2016-12-25] MEDS ORDERED: CATHETER FLUSH 10 ML SYR IV PRN (17:00)
[2016-12-25] MEDS: DILTIAZEM DRIP 100 MG/NS 100 ML IV SCH ×4 (17:00→23:31)
[2016-12-25] MEDS: NS IV 1000 ML 1,000 ML IV SCH (17:01)
[2016-12-25] MEDS ORDERED: PANTOPRAZOLE 40 MG (PROTONIX) TAB PO NR (17:15)
[2016-12-25] MEDS ORDERED: FLU TRIvalent (5 YOA+) 2016-17 (AFLURIA) 0.5 ML IM ONE (17:45)
[2016-12-25] MEDS: CEFEPIME 2 GM/NS 50 ML IVPB IV SCH ×2 (18:19)
[2016-12-25] MEDS: APIXABAN 5 MG (ELIQUIS) TABLET PO SCH (21:42)
[2016-12-26] VITALS (22 sets, daily range): BP systolic 96–143; BP diastolic 52–98
[2016-12-26 04:25] LABS: BASOPHILS % (AUTO) 0 % (0-10); EOSINOPHILS # (AUTO) 0.1 10^3/uL (0.0-0.3); EOSINOPHILS % (AUTO) 1 % (0-10); LYMPHOCYTES # (AUTO) 0.7 X 10^3 (1.0-4.0); LYMPHOCYTES % (AUTO) 6 % (12-44); MEAN CORPUSCULAR HEMOGLOBIN 28 PG (25-34); MEAN CORPUSCULAR HGB CONC 30 G/DL (32-36); MEAN CORPUSCULAR VOLUME 92 FL (80-99); MEAN PLATELET VOLUME 9.9 FL (7.4-10.4); MONOCYTES # (AUTO) 0.8 X 10^3 (0.0-1.0); MONOCYTES % (AUTO) 6 % (0-12); NEUTROPHILS # (AUTO) 11.3 X 10^3 (1.8-7.8); NEUTROPHILS % (AUTO) 87 % (42-75); PLATELET COUNT 404 10^3/uL (130-400); RED BLOOD COUNT 4.01 10^6/uL (4.35-5.85); RED CELL DISTRIBUTION WIDTH 16.1 % (10.0-14.5)
[2016-12-26 04:52] LABS: ALANINE AMINOTRANSFERASE 24 U/L (0-55); ALBUMIN 2.8 G/DL (3.2-4.5); ANION GAP 10 MMOL/L (5-14); ASPARTATE AMINO TRANSFERASE 30 U/L (5-34); BLOOD UREA NITROGEN 9 MG/DL (7-18); BUN/CREATININE RATIO 15; CARBON DIOXIDE 21 MMOL/L (21-32); CHLORIDE 110 MMOL/L (98-107); GFR ESTIMATED > 60; GLUCOSE 104 MG/DL (70-105); POTASSIUM 3.9 MMOL/L (3.6-5.0); SODIUM 141 MMOL/L (135-145); TOTAL PROTEIN 5.8 G/DL (6.4-8.2)
[2016-12-26] MEDS: NS IV 1000 ML 1,000 ML IV SCH ×3 (05:05→22:02)
[2016-12-26] MEDS: VANCOMYCIN 1 GM/NS 250 ML IVPB IV SCH ×4 (05:05→16:26)
[2016-12-26 05:42] LABS: MAGNESIUM 1.8 MG/DL (1.8-2.4)
[2016-12-26] MEDS: POTASSIUM CL 10MEQ/50ML IVPB 50 ML IV SCH (06:00)
[2016-12-26] MEDS: KCL 20 MEQ TAB (K-DUR) PO SCH (06:00)
[2016-12-26] MEDS: MAGNESIUM 1 GM/100 ML IVPB 100 ML IV SCH (06:00)
[2016-12-26] MEDS: PANTOPRAZOLE 40 MG (PROTONIX) TAB PO SCH (06:52)
[2016-12-26] MEDS: ASPIRIN 81 MG CHEW (CHILDREN'S ASA) PO SCH (08:35)
[2016-12-26] MEDS: APIXABAN 5 MG (ELIQUIS) TABLET PO SCH ×2 (08:35→21:07)
--- NOTE | 2016-12-26 09:16 | Diagnostic Imaging Report ---
INDICATION: Shortness of breath. Comparison made with prior examination from 12/25/16. FINDINGS: There's cardiomegaly. Mediastinum is unremarkable. There is an infiltrate in the superior segment right lower lobe suspect for pneumonia. There is also focal pulmonary parenchymal opacity in the lateral aspect of the left upper lobe. There is no pleural effusion or pneumothorax. IMPRESSION: Right base infiltrate suspect for pneumonia. Focal parenchymal opacity in the lateral aspect left upper lobe. While this may be infiltrate the possibility of underlying mass cannot be excluded. Recommend short interval followup films to assure resolution. If this abnormality persists further evaluation with CT chest should be considered. Cardiomegaly and some minimal central pulmonary venous congestion. Dictated by: Dictated on workstation # [id number]
[2016-12-26] MEDS: DILTIAZEM DRIP 100 MG/NS 100 ML IV SCH ×2 (10:01)
--- NOTE | 2016-12-26 11:08 | History & Physical-Hospitalist ---
HPI History of Present Illness: HPI/Chief Complaint CC: Fever with bilateral pneumonia and acute exacerbation of COPD with atrial fibrillation with rapid particular response HPI: This is a 71-year-old white female clinic patient of [facility] for the last several years with past medical history of rheumatoid arthritis maintain on immunosuppressive's with methotrexate by Dr. Gary, COPD from prior smoking and atrial fibrillation managed now by Dr. Shaikh with CAD previous stent placement 3 years ago that presented to the emergency room with fever and shortness of breath was found to have atrial fibrillation with rapid ventricular response of heart rate of 154 requiring Cardizem drip and cardiology consultation along with triple antibiotic therapy due to bilateral pneumonia with sepsis. Apparently she had been doing well I had just seen her in the office on Wednesday for a follow-up but she began having fever cough shortness of breath and palpitations called my office and I told her to go to the ER and was found in the above described status. Currently she is feeling much better chest x-ray reveals right lower lobe pneumonia has consolidated and the rest of the infiltrates appear to have been pulmonary edema since those are resolved. White blood cell count is down to 13 today and overall patient is in a chair feeling much better. Source: patient Exam Limitations: no limitations Date Seen 12/26/16 Attending Physician Terese Neal DO PCP Terese Neal DO Referring Physician Date of Admission Dec 25, 2016 at 14:37 Home Medications & Allergies Home Medications Reviewed patient Home Medication Reconciliation Form Allergies Coded Allergies: No Known Drug Allergies (Unverified , 08/27/16) Past Rejizru-Iexrst-Uvslbb Hx Patient Social History Marrital Status: Employed/Student: retired Alcohol Use: Denies Use Recreational Drug Use: No Smoking Status: Former Smoker Former smoker/When Quit: Oct 11, 2004 Type Used: Cigarettes Physical Abuse Screen: No Sexual Abuse: No Recent Foreign Travel: No Contact w/other who traveled: No Recent Hopitalizations: No Recent Infectious Disease Expo: No Immunizations Up To Date Date of Pneumonia Vaccine: Sep 17, 2015 Seasonal Allergies Seasonal Allergies: No Surgeries HX Surgeries: Yes (CARDIAC CATH X 3--STENTS X 4) Surgeries: Cardiac, Coronary Stent, Tubal Ligation Respiratory Hx Respiratory Disorders: Yes Respiratory Disorders: COPD, Pneumonia Cardiovascular Hx Cardiovascular Disorders: Yes Cardiac Disorders: Atrial Fibrillation, Coronary Artery Disease, Heart Attack, High Cholesterol, Hypertension 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 Hx 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 Disorders: No Genitourinary Hx Genitourinary Disorders: No Gastrointestinal Hx Gastrointestinal Disorders: No Musculoskeletal Hx Musculoskeletal Disorders: Yes Musculoskeletal Disorders: Rheumatoid Arthritis Endocrine Hx Endocrine Disorders: No HEENT HX ENT Disorders: No Cancer Hx Cancer: No Psychosocial Hx Psychiatric Problems: No Integumentary HX Skin/Integumentary Disorder: No Blood Transfusions Hx Blood Disorders: No Reviewed Nursing Assessment Reviewed/Agree w Nursing PMH: Yes Family Medical History Family Hx: Cardiovascular disease 19 MOTHER Diabetes mellitus 19 MOTHER Hypertension 19 MOTHER Review of Systems Constitutional: see HPI chills dizziness fever malaise weakness EENTM: no symptoms reported Respiratory: cough short of breath wheezing Cardiovascular: chest pain palpitations Gastrointestinal: no symptoms reported Genitourinary: no symptoms reported Musculoskeletal: no symptoms reported Skin: no symptoms reported Psychiatric/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: Anxiety Depressed All Other Systems Reviewed Negative Unless Noted: Yes Physical Exam Physical Exam Vital Signs Vital Sign - Last 12Hours 12/25/16 12:35 Temp 101.9 Pulse 154 Resp 18 B/P 144/101 Pulse Ox 96 O2 Delivery Nasal Cannula O2 Flow Rate 2 Capillary Refill : Less Than 3 Seconds General Appearance: No Apparent Distress WD/WN Chronically ill Eyes: Bilateral Eye Normal Inspection, Bilateral Eye PERRL HEENT: PERRL/EOMI Normal ENT Inspection Pharynx Normal Neck: Full Range of Motion Normal Inspection Non Tender Supple Carotid Bruit Respiratory: Chest Non Tender No Accessory Muscle Use No Respiratory Distress Crackles (right lower lobe) Decreased Breath Sounds Cardiovascular: No Edema No Gallop No JVD No Murmur Normal Peripheral Pulses Irregularly Irregular Tachycardia Gastrointestinal: Normal Bowel Sounds No Organomegaly No Pulsatile Mass Non Tender Soft Back: Normal Inspection No CVA Tenderness No Vertebral Tenderness Extremity: Normal Capillary Refill Normal Inspection Normal Range of Motion Non Tender No Calf Tenderness No Pedal Edema Neurologic/Psychiatric: Alert Oriented x3 No Motor/Sensory Deficits Normal Mood/Affect Skin: Normal Color Warm/Dry Lymphatic: No Adenopathy Results Results/Procedures Lab Laboratory Tests 12/25/16 12:26 12/26/16 03:25 Assessment/Plan Admission Diagnosis Assessment: Right lower lobe pneumonia high risk for MRSA and gram-negative placed on triple antibiotic therapy with sepsis and fever Previous immunosuppression with methotrexate stopped that 2 weeks ago Atrial fibrillation with rapid ventricular response managed by Dr. Fischer on [facility] dr Coronary artery disease previous stent placed by Dr. Hamilton at [facility] Rheumatoid arthritis managed by Dr. Gary Hypothyroidism Hypertension Hyperlipidemia Acute leukocytosis due to pneumonia Assessment and Plan Plan: Continue antibiotic therapy triple Anticoagulation due to age fibrillation for stroke prophylaxis and DVT prophylaxis Appreciate cardiology input IV steroids Inhaled corticosteroids Monitor labs Check chest x-ray in a.m. Prognosis guarded Clinical Quality Measures DVT/VTE Risk/Contraindication: Risk Factor Score Per Nursin RFS Level Per Nursing on Admit: 2=Moderate TERESE NEAL DO Dec 26, 2016 11:08
[2016-12-26] MEDS ORDERED: DILTIAZEM 240 MG (CARDIZEM CD) CAP PO NR (13:30)
[2016-12-26] MEDS ORDERED: RT-ALBUTEROL/IPRATROPIUM 3 ML (DUONEB) VIAL ONE (13:37)
[2016-12-26] MEDS ORDERED: FUROSEMIDE 40 MG/4 ML INJ (LASIX) ONE (13:38)
[2016-12-26] MEDS ORDERED: FUROSEMIDE 40 MG/4 ML INJ (LASIX) IVP ONE (13:45)
[2016-12-26] MEDS: LEVOFLOXACIN 750 MG/D5W 150 ML PRE-MIX IV SCH (13:46)
[2016-12-26] MEDS: RT-ALBUTEROL/IPRATROPIUM 3 ML (DUONEB) VIAL INH SCH ×3 (13:48→22:18)
--- NOTE | 2016-12-26 14:04 | Progress Note-Cardiology ---
Cardiology SOAP Progress Note Subjective: Still short of breath; cough mostly non-productive; no cp or palp or syncope Objective: I&O/Vital Signs Vital Sign - Last 12Hours 12/26/16 12/26/16 12/26/16 12/26/16 03:00 04:00 04:00 05:00 Temp 96.7 Pulse 72 81 85 Resp 10 B/P 136/87 125/68 142/98 Pulse Ox 100 98 97 O2 Delivery Nasal Cannula Nasal Cannula Nasal Cannula O2 Flow Rate 3.00 2.00 2.00 2.00 12/26/16 12/26/16 12/26/16 12/26/16 06:00 07:00 07:00 08:00 Pulse 86 87 84 76 Resp 17 B/P 96/52 138/91 143/84 Pulse Ox 98 99 98 O2 Delivery Nasal Cannula Nasal Cannula Nasal Cannula O2 Flow Rate 2.00 2.00 2.00 12/26/16 12/26/16 12/26/16 12/26/16 08:30 08:30 09:00 10:00 Temp 99.3 Pulse 85 89 90 Resp 16 31 B/P 133/84 121/74 Pulse Ox 99 98 98 O2 Delivery Nasal Cannula Nasal Cannula O2 Flow Rate 2.00 2.00 2.00 12/26/16 12/26/16 12/26/16 12/26/16 10:00 10:01 11:00 11:00 Temp 99.3 Pulse 87 88 Resp 28 30 B/P 128/70 121/74 121/74 Pulse Ox 98 98 O2 Flow Rate 2.00 12/26/16 12/26/16 12/26/16 12/26/16 12:00 12:30 13:00 13:50 Temp 98.6 Pulse 82 85 84 Resp 22 B/P 138/68 132/75 Pulse Ox 97 96 98 99 O2 Delivery Nasal Cannula Nasal Cannula O2 Flow Rate 4.00 4.00 2.00 Intake and Output 12/26/16 00:00 Intake Total 690 ml Output Total 950 ml Balance -260 ml Weight (Pounds): 158 Weight (Ounces): 3.2 Weight (Calculated Kilograms): [id number] Constitutional: AAO x 3 well-developed well-nourished Respiratory: No accessory muscle use, other (Diminished air entry at the bases ; rhonchi over large airways; exp wheezes) Cardiovascular: irregularly irregular tachycardia systolic murmur (soft PATTI at cardiac base) Gastrointestional: No tender, softNo guarding, audible bowel sounds Extremities: No clubbing, No cyanosis, No significant edema Neurologic/Psychiatric: grossly intact power is 5/5 both on sides Skin: warm/dry ecchymosisNo rash on exposed areas, No ulcerations on exposed areas Results/Procedures: Labs Laboratory Tests 12/25/16 15:30: Urine Bacteria FEWH, Urine Bilirubin NEGATIVE, Urine Casts NONE, Urine Clarity CLEAR, Urine Color YELLOW, Urine Crystals NONE, Urine Culture Indicated YES, Urine Glucose (UA) NEGATIVE, Urine Ketones NEGATIVE, Urine Leukocyte Esterase 1+ H, Urine Mucus NEGATIVE, Urine Nitrite NEGATIVE, Urine Protein 3+H, Urine RBC NONE, Urine RBC (Auto) 1+H, Urine Specific [place] 1.010L, Urine Urobilinogen NORMAL, Urine WBC 5-10H, Urine pH 8 12/26/16 03:25: Alanine Aminotransferase (ALT/SGPT) 24, Albumin 2.8L, Alkaline Phosphatase 86, Anion Gap 10, Aspartate Amino Transf (AST/SGOT) 30, BUN/Creatinine Ratio 15, Basophils # (Auto) 0.0, Basophils (%) (Auto) 0, Blood Urea Nitrogen 9, Calcium Level 8.0L, Carbon Dioxide Level 21, Chloride Level 110H, Creatinine 0.60, Eosinophils # (Auto) 0.1, Eosinophils (%) (Auto) 1, Estimat Glomerular Filtration Rate > 60, Glucose Level 104, Hematocrit 37, Hemoglobin 11.1L, Lymphocytes # (Auto) 0.7L, Lymphocytes (%) (Auto) 6L, Magnesium Level 1.8, Mean Corpuscular Hemoglobin 28, Mean Corpuscular Hemoglobin Concent 30L, Mean Corpuscular Volume 92, Mean Platelet Volume 9.9, Monocytes # (Auto) 0.8, Monocytes (%) (Auto) 6, Neutrophils # (Auto) 11.3H, Neutrophils (%) (Auto) 87H, Phosphorus Level 2.0L, Platelet Count 404H, Potassium Level 3.9, Red Blood Count 4.01L, Red Cell Distribution Width 16.1H, Sodium Level 141, Total Bilirubin 2.0H, Total Protein 5.8L, White Blood Count 13.0H Laboratory Tests 12/25/16 12:26 12/26/16 03:25 A/P: Assessment: Recurrent pneumonia (recently discharged after treatment for RLL, RML pneumonia ) being managed by Dr Verde Chronic atrial fibrillation with a currently rapid vent response Suspected COPD, being followed by Dr Lin Volume overload vs mild decomp ac diastolic CHF Quit tobacco use in 2003 after having smoked for a number of years CAD, h/o cor stenting x 4 on different occasion; last cor stenting at [facility] by Dr Hamilton more than 3 years ago, detail unavailable despite request to [facility] Echo of 08/28/16: LVEF 50%, mild to mod MR, diastolic dysfunction of LV Hyperlipidemia, managed by Dr Verde DM II, managed by Dr Verde Hypertension, controlled Non-compliance with OAC reportedly d/t cost Hyperthyroidism (TSH 0.28 on 12/17/16) being managed by Dr Verde Plan: * Still appears quite ill * Reduce iv fluids * Low dose furosemide * Change dilt to oral long-acting dilt * Breathing treatments recommended * Monitor labs MK GRACE MD FACP FAC CCDS Dec 26, 2016 14:04
[2016-12-26] MEDS ORDERED: TROUGH ORDER-PHARMACY XX NR (15:00)
[2016-12-26] MEDS: HYDROcodone/APAP 5 MG/325 MG (LORTAB) TAB PO PRN ×2 (16:30→21:07)
[2016-12-26] MEDS: CEFEPIME 2 GM/NS 50 ML IVPB IV SCH ×2 (19:31)
[2016-12-27] VITALS (16 sets, daily range): BP systolic 100–143; BP diastolic 71–95
[2016-12-27] MEDS: RT-ALBUTEROL/IPRATROPIUM 3 ML (DUONEB) VIAL INH SCH ×6 (01:18→22:55)
[2016-12-27] MEDS: HYDROcodone/APAP 5 MG/325 MG (LORTAB) TAB PO PRN (04:03)
[2016-12-27] MEDS: VANCOMYCIN 1 GM/NS 250 ML IVPB IV SCH ×4 (04:10→20:29)
[2016-12-27 05:37] LABS: BASOPHILS % (AUTO) 0 % (0-10); EOSINOPHILS # (AUTO) 0.3 10^3/uL (0.0-0.3); EOSINOPHILS % (AUTO) 2 % (0-10); LYMPHOCYTES % (AUTO) 8 % (12-44); MEAN CORPUSCULAR HEMOGLOBIN 28 PG (25-34); MEAN CORPUSCULAR HGB CONC 30 G/DL (32-36); MEAN CORPUSCULAR VOLUME 91 FL (80-99); MEAN PLATELET VOLUME 9.9 FL (7.4-10.4); MONOCYTES # (AUTO) 0.7 X 10^3 (0.0-1.0); MONOCYTES % (AUTO) 6 % (0-12); NEUTROPHILS # (AUTO) 10.4 X 10^3 (1.8-7.8); NEUTROPHILS % (AUTO) 84 % (42-75); PLATELET COUNT 403 10^3/uL (130-400); RED BLOOD COUNT 3.98 10^6/uL (4.35-5.85); RED CELL DISTRIBUTION WIDTH 15.9 % (10.0-14.5); WHITE BLOOD COUNT 12.4 10^3/uL (4.3-11.0)
[2016-12-27 05:55] LABS: ALANINE AMINOTRANSFERASE 20 U/L (0-55); ALBUMIN 2.8 G/DL (3.2-4.5); ANION GAP 10 MMOL/L (5-14); ASPARTATE AMINO TRANSFERASE 19 U/L (5-34); BILIRUBIN,TOTAL 1.1 MG/DL (0.1-1.0); BLOOD UREA NITROGEN 8 MG/DL (7-18); BUN/CREATININE RATIO 13; CALCIUM 7.7 MG/DL (8.5-10.1); CARBON DIOXIDE 21 MMOL/L (21-32); CHLORIDE 108 MMOL/L (98-107); CREATININE SERUM 0.62 MG/DL (0.60-1.30); GFR ESTIMATED > 60; GLUCOSE 135 MG/DL (70-105); POTASSIUM 3.3 MMOL/L (3.6-5.0); SODIUM 139 MMOL/L (135-145); TOTAL PROTEIN 5.6 G/DL (6.4-8.2)
[2016-12-27] MEDS: POTASSIUM CL 10MEQ/50ML IVPB 50 ML IV SCH (06:00)
[2016-12-27] MEDS: KCL 20 MEQ TAB (K-DUR) PO SCH ×3 (06:00→08:26)
[2016-12-27] MEDS: MAGNESIUM 1 GM/100 ML IVPB 100 ML IV SCH ×3 (06:00→08:22)
[2016-12-27] MEDS: PANTOPRAZOLE 40 MG (PROTONIX) TAB PO SCH (06:43)
[2016-12-27 06:46] LABS: MAGNESIUM 1.6 MG/DL (1.8-2.4); PHOSPHORUS 1.3 MG/DL (2.3-4.7)
[2016-12-27] MEDS: DILTIAZEM 240 MG (CARDIZEM CD) CAP PO SCH (08:26)
[2016-12-27] MEDS: ASPIRIN 81 MG CHEW (CHILDREN'S ASA) PO SCH (08:26)
[2016-12-27] MEDS: APIXABAN 5 MG (ELIQUIS) TABLET PO SCH ×2 (08:26→20:33)
--- NOTE | 2016-12-27 10:46 | Cardiology Progress Note ---
Subjective Subjective/Events-last exam patient is laying down in bed, feeling better, still having mild shortness of breath, no chest pain. Review of Systems General: No Chills, No Night Sweats, No Fatigue, No Malaise, No Appetite, No Other HEENT: No Head Aches, No Visual Changes, No Eye Pain, No Ear Pain, No Dysphasia , No Sinus Congestion, No Post Nasal Drip, No Sore Throat, No Other Pulmonary: DyspneaNo Cough, No Pleuritic Chest Pain, No Other Cardiovascular: No: Chest Pain, Edema, Lt Headedness, Orthopnea, Other, Palpitations, Paroxysmal Noc. Dyspnea Objective-Cardiology Exam Last Set of Vital Signs Vital Signs 12/27/16 12/27/16 12/27/16 12/27/16 04:00 06:00 07:00 07:06 Temp 97.1 Pulse 98 Resp 19 B/P 117/77 Pulse Ox 97 O2 Delivery Nasal Cannula O2 Flow Rate 1.00 Capillary Refill : Less Than 3 Seconds I&O Intake and Output 12/27/16 00:00 Intake Total 3255 ml Output Total 2720 ml Balance 535 ml Intake Oral 850 ml IV Total 2405 ml Output Urine Total 2720 ml General: Alert, Oriented X3, Cooperative HEENT: Atraumatic, PERRLA Neck: Supple, No JVD, No Thyromegaly Lungs: Clear to Auscultation, Normal Air Movement Heart: Normal S1, Normal S2, No Murmurs, Other (irregular rhythm) Abdomen: Normal Bowel Sounds, Soft, No Tenderness, No Hepatosplenomegaly, No Masses Extremities: No Clubbing, No Cyanosis, No Edema, Normal Pulses, No Tenderness/ Swelling Skin: No Rashes, No Breakdown, No Significant Lesion Neuro: Normal Gait, Normal Speech, Strength at 5/5 X4 Ext, Normal Tone, Sensation Intact Psych/Mental Status: Mental Status NL, Mood NL Results Lab Laboratory Tests 12/27/16 05:13 A/P-Cardiology Admission Diagnosis pneumonia Atrial fibrillation Coronary artery disease Hypertension Assessment/Plan Recurrent pneumonia (recently discharged after treatment for RLL, RML pneumonia ) being managed by Dr Verde, receiving triple antibiotics. Chronic atrial fibrillation with a currently rapid vent response, heart rate is better controlled. Continue to monitor. Continue on current medications. Hypokalemia, hypomagnesemia, hypophosphatemia, being replaced, monitor electrolyte closely. Suspected COPD, being followed by Dr Lin Volume overload vs mild decomp ac diastolic CHF, better at this time, no significant edema was noted. Quit tobacco use in 2003 after having smoked for a number of years CAD, h/o cor stenting x 4 on different occasion; last cor stenting at [facility] by Dr Hamilton more than 3 years ago, detail unavailable despite request to [facility] Echo of 08/28/16: LVEF 50%, mild to mod MR, diastolic dysfunction of LV Hyperlipidemia, managed by Dr Verde DM II, managed by Dr Verde Hypertension, controlled, continue to monitor. Non-compliance with OAC reportedly d/t cost Hyperthyroidism (TSH 0.28 on 12/17/16) being managed by Dr Verde Clinical Quality Measures DVT/VTE Risk/Contraindication: Risk Factor Score Per Nursin RFS Level Per Nursing on Admit: 2=Moderate ALEJANDRINA CRAWFORD MD Dec 27, 2016 10:46
[2016-12-27] MEDS ORDERED: SODIUM PHOSPHATE INJ 15 MM in NS (IVPB) 100 ML IV ONE (11:00)
--- NOTE | 2016-12-27 11:29 | Progress Note-Hospitalist ---
Progress Note HPI/CC on Admission CC: Fever with bilateral pneumonia and acute exacerbation of COPD with atrial fibrillation with rapid particular response HPI: This is a 71-year-old white female clinic patient of mine for the last several years with past medical history of rheumatoid arthritis maintain on immunosuppressive's with methotrexate by Dr. Gary, COPD from prior smoking and atrial fibrillation managed now by Dr. Shaikh with CAD previous stent placement 3 years ago that presented to the emergency room with fever and shortness of breath was found to have atrial fibrillation with rapid ventricular response of heart rate of 154 requiring Cardizem drip and cardiology consultation along with triple antibiotic therapy due to bilateral pneumonia with sepsis. Apparently she had been doing well I had just seen her in the office on Wednesday for a follow-up but she began having fever cough shortness of breath and palpitations called my office and I told her to go to the ER and was found in the above described status. Currently she is feeling much better chest x-ray reveals right lower lobe pneumonia has consolidated and the rest of the infiltrates appear to have been pulmonary edema since those are resolved. White blood cell count is down to 13 today and overall patient is in a chair feeling much better. Progress Notes/Assess & Plan Date Seen 12/27/16 Admission Dx/Process Assessment: Right lower lobe pneumonia high risk for MRSA and gram-negative placed on triple antibiotic therapy with sepsis and fever Previous immunosuppression with methotrexate stopped that 2 weeks ago Atrial fibrillation with rapid ventricular response managed by Dr. Fischer on Cardizem drip Coronary artery disease previous stent placed by Dr. Hamilton at [place] Rheumatoid arthritis managed by Dr. Gary Hypothyroidism Hypertension Hyperlipidemia Acute leukocytosis due to pneumonia Diagonsis/Assessment & Plan Patient doing well and now on oral Cardizem and off Cardizem drip Triple antibiotics remain No fever Less short of breath Will start IV steroids Electrolyte deficiency is been supplemented Will transfer to floor on telemetry Swing bed eval No fever, vital signs stable, pleasant, improved, oriented 3 iregular rate and rhythm, diminished breath sounds in the bases with crackles in the right lower lobe and coarseness in the left lower lobe No edema Laboratory Tests 12/27/16 05:13 Assessment: Right lower lobe pneumonia high risk for MRSA and gram-negative placed on triple antibiotic therapy with sepsis and fever Previous immunosuppression with methotrexate stopped that 2 weeks ago Atrial fibrillation with rapid ventricular response managed by Dr. Fischer s/p Cardizem drip now on oral Cardizem Coronary artery disease previous stent placed by Dr. Hamilton at [place] on aspirin and stop Plavix due to bleed risk Rheumatoid arthritis managed by Dr. Gary Hypothyroidism Hypertension Hyperlipidemia Acute leukocytosis due to pneumonia stable Hypokalemia replacing Plan: Continue antibiotic therapy triple Anticoagulation due to age fibrillation for stroke prophylaxis and DVT prophylaxis Appreciate cardiology input IV steroids Inhaled corticosteroids Monitor labs Check chest x-ray in a.m. Prognosis guarded Transfer to floor Telemetry JEROME NEAL DO Dec 27, 2016 11:29
[2016-12-27] MEDS ORDERED: LACTULOSE SYRUP 10GM/15ML (ENULOSE) 30ML UDC PO PRN (11:30)
[2016-12-27] MEDS ORDERED: HYDROCODONE/CHLOR 10MG/5 ML (TUSSIONEX SUSP) 5ML UDC PO PRN (11:30)
--- NOTE | 2016-12-27 12:03 | Diagnostic Imaging Report ---
INDICATION: Pneumonia. TECHNIQUE: Single view chest 5:38 AM. CORRELATION STUDY: 12/26/2016 FINDINGS: Marked severity cardiac enlargement again demonstrated. Pulmonary vasculature, however, appears to be within normal limits. Opacity of the right mid and lower lung field persists likely reflective of pneumonia. Slight asymmetric parenchymal density left mid lung. Left diaphragm is largely obscured likely by the cardiac enlargement. IMPRESSION: 1. Right mid and lower lung infiltrate suspect for pneumonia. Additional opacity left midlung persists but perhaps slightly improved. 2. Marked cardiac enlargement without evidence for overt failure Dictated by: Dictated on workstation # [id number]
[2016-12-27] MEDS ORDERED: TROUGH ORDER-PHARMACY XX NR (15:00)
[2016-12-27] MEDS: methylPREDNISolone 125 MG (Solu-MEDROL) VIAL IVP SCH ×3 (15:34→23:53)
[2016-12-27] MEDS: LEVOFLOXACIN 750 MG/D5W 150 ML PRE-MIX IV SCH (15:35)
[2016-12-27] MEDS: CEFEPIME 2 GM/NS 50 ML IVPB IV SCH ×2 (19:21)
[2016-12-27] MEDS ORDERED: NON-FORMULARY MEDICATION 1 EA EA (Fluticasone/Salmeterol (Advair 250-50 Diskus) 1 PUFF) IH SCH (21:00)
[2016-12-27] MEDS: RT-ADVAIR HFA 115/21 MCG PER PUFF IH SCH (22:56)
[2016-12-28 00:45] VITALS: BP 145/69
[2016-12-28] MEDS: HYDROcodone/APAP 5 MG/325 MG (LORTAB) TAB PO PRN (00:48)
[2016-12-28] MEDS: RT-ALBUTEROL/IPRATROPIUM 3 ML (DUONEB) VIAL INH SCH ×3 (02:31→10:13)
[2016-12-28] MEDS: CEFEPIME 2 GM/NS 50 ML IVPB IV SCH ×2 (04:10)
[2016-12-28] MEDS: VANCOMYCIN 1 GM/NS 250 ML IVPB IV SCH ×2 (04:52)
[2016-12-28 05:17] VITALS: BP 144/84
[2016-12-28 05:53] LABS: BASOPHILS % (AUTO) 0 % (0-10); EOSINOPHILS % (AUTO) 0 % (0-10); LYMPHOCYTES # (AUTO) 0.2 X 10^3 (1.0-4.0); LYMPHOCYTES % (AUTO) 2 % (12-44); MEAN CORPUSCULAR HEMOGLOBIN 28 PG (25-34); MEAN CORPUSCULAR HGB CONC 31 G/DL (32-36); MEAN CORPUSCULAR VOLUME 90 FL (80-99); MEAN PLATELET VOLUME 9.5 FL (7.4-10.4); MONOCYTES # (AUTO) 0.1 X 10^3 (0.0-1.0); MONOCYTES % (AUTO) 1 % (0-12); NEUTROPHILS # (AUTO) 9.8 X 10^3 (1.8-7.8); NEUTROPHILS % (AUTO) 96 % (42-75); PLATELET COUNT 459 10^3/uL (130-400); RED BLOOD COUNT 4.08 10^6/uL (4.35-5.85); RED CELL DISTRIBUTION WIDTH 15.7 % (10.0-14.5); WHITE BLOOD COUNT 10.2 10^3/uL (4.3-11.0)
[2016-12-28 06:09] LABS: ALANINE AMINOTRANSFERASE 22 U/L (0-55); ALBUMIN 3.1 G/DL (3.2-4.5); ANION GAP 10 MMOL/L (5-14); ASPARTATE AMINO TRANSFERASE 21 U/L (5-34); BILIRUBIN,TOTAL 0.8 MG/DL (0.1-1.0); BLOOD UREA NITROGEN 10 MG/DL (7-18); BUN/CREATININE RATIO 17; CALCIUM 7.8 MG/DL (8.5-10.1); CARBON DIOXIDE 20 MMOL/L (21-32); CHLORIDE 109 MMOL/L (98-107); GFR ESTIMATED > 60; GLUCOSE 189 MG/DL (70-105); POTASSIUM 4.1 MMOL/L (3.6-5.0); SODIUM 139 MMOL/L (135-145); TOTAL PROTEIN 6.3 G/DL (6.4-8.2)
[2016-12-28] MEDS: PANTOPRAZOLE 40 MG (PROTONIX) TAB PO SCH (06:20)
[2016-12-28] MEDS: methylPREDNISolone 125 MG (Solu-MEDROL) VIAL IVP SCH (06:20)
[2016-12-28 08:17] VITALS: BP 129/72
[2016-12-28] MEDS ORDERED: ALPRAZolam 0.25 MG (XANAX) TAB PO PRN (09:00)
[2016-12-28] MEDS: ASPIRIN 81 MG CHEW (CHILDREN'S ASA) PO SCH (09:15)
[2016-12-28] MEDS: APIXABAN 5 MG (ELIQUIS) TABLET PO SCH (09:15)
[2016-12-28] MEDS: DILTIAZEM 240 MG (CARDIZEM CD) CAP PO SCH (09:15)
[2016-12-28] MEDS ORDERED: HYDR473S34 PO (09:20)
[2016-12-28] MEDS ORDERED: PRED10TA22 PO (09:20)
[2016-12-28] MEDS ORDERED: CEFD300C3 PO (09:20)
[2016-12-28] MEDS ORDERED: ALPR0.254 PO (09:20)
[2016-12-28] MEDS ORDERED: ASPI-999 PO (09:20)
[2016-12-28] MEDS ORDERED: ZOLP5TAB PO (09:23)
--- NOTE | 2016-12-28 09:30 | Discharge Summary-Hospitalist ---
Diagnosis/Chief Complaint Date of Admission Dec 25, 2016 at 14:37 Date of Discharge Discharge Date: Dec 28, 2016 Admission Diagnosis Assessment: Right lower lobe pneumonia high risk for MRSA and gram-negative placed on triple antibiotic therapy with sepsis and fever Previous immunosuppression with methotrexate stopped that 2 weeks ago Atrial fibrillation with rapid ventricular response managed by Dr. Fischer on Cardizem drip Coronary artery disease previous stent placed by Dr. Hamilton at [place] Rheumatoid arthritis managed by Dr. Gary Hypothyroidism Hypertension Hyperlipidemia Acute leukocytosis due to pneumonia Discharge Diagnosis Assessment: Right lower lobe pneumonia high risk for MRSA and gram-negative placed on triple antibiotic therapy with sepsis and fever Previous immunosuppression with methotrexate stopped that 2 weeks ago Atrial fibrillation with rapid ventricular response managed by Dr. Fischer on Cardizem drip Coronary artery disease previous stent placed by Dr. Hamilton at [place] Rheumatoid arthritis managed by Dr. Gary Hypothyroidism Hypertension Hyperlipidemia Acute leukocytosis due to pneumonia Patient doing well and now on oral Cardizem and off Cardizem drip Triple antibiotics remain No fever Less short of breath Will start IV steroids Electrolyte deficiency is been supplemented Will transfer to floor on telemetry Swing bed eval No fever, vital signs stable, pleasant, improved, oriented 3 iregular rate and rhythm, diminished breath sounds in the bases with crackles in the right lower lobe and coarseness in the left lower lobe No edema Laboratory Tests 12/27/16 05:13 Assessment: Right lower lobe pneumonia high risk for MRSA and gram-negative placed on triple antibiotic therapy with sepsis and fever Previous immunosuppression with methotrexate stopped that 2 weeks ago Atrial fibrillation with rapid ventricular response managed by Dr. Fischer s/p Cardizem drip now on oral Cardizem Coronary artery disease previous stent placed by Dr. Hamilton at [place] on aspirin and stop Plavix due to bleed risk Rheumatoid arthritis managed by Dr. Gary Hypothyroidism Hypertension Hyperlipidemia Acute leukocytosis due to pneumonia stable Hypokalemia replacing Plan: Continue antibiotic therapy triple Anticoagulation due to age fibrillation for stroke prophylaxis and DVT prophylaxis Appreciate cardiology input IV steroids Inhaled corticosteroids Monitor labs Check chest x-ray in a.m. Prognosis guarded Transfer to floor Telemetry Reason Hospital Visit/Course CC: Fever with bilateral pneumonia and acute exacerbation of COPD with atrial fibrillation with rapid particular response HPI: This is a 71-year-old white female clinic patient of mine for the last several years with past medical history of rheumatoid arthritis maintain on immunosuppressive's with methotrexate by Dr. Gary, COPD from prior smoking and atrial fibrillation managed now by Dr. Shaikh with CAD previous stent placement 3 years ago that presented to the emergency room with fever and shortness of breath was found to have atrial fibrillation with rapid ventricular response of heart rate of 154 requiring Cardizem drip and cardiology consultation along with triple antibiotic therapy due to bilateral pneumonia with sepsis. Apparently she had been doing well I had just seen her in the office on Wednesday for a follow-up but she began having fever cough shortness of breath and palpitations called my office and I told her to go to the ER and was found in the above described status. Currently she is feeling much better chest x-ray reveals right lower lobe pneumonia has consolidated and the rest of the infiltrates appear to have been pulmonary edema since those are resolved. White blood cell count is down to 13 today and overall patient is in a chair feeling much better. Note from 12/28/16: Patient doing much better and less short of breath and overall doing well. Will have home O2 evaluation once again Counseled her on pulmonary rehabilitation Patient once to still go to Dr. Hamilton and I explained I need a local corporate communications associate since this is a possibility that this will not be the last hospitalization because of the severity of her COPD and atrial fibrillation but she seemed shocked with that information and her daughter updated so I counseled her a great deal on how to get as healthy as she can to prevent hospitalizations but the severity of her COPD will require pulmonary rehabilitation and other support in order to try to prevent readmissions. Patient is highly anxious and when she gets short of breath she becomes very very anxious so I have ordered alprazolam and she agrees to take that in addition to the Celexa that she takes for depression. Overall I try to supporters much as possible and try to ease her suffering and anxiousness but I'm unsure if that was successful. I did have Jovita BARON come and help educate and support this patient to prevent rehospitalizations but unable to modify all risk factors. She seemed agreeable for pulmonary rehabilitation and anything to help her become ill again the prognosis is guarded regardless due to the severity of her medical problems. No fever, vital signs stable, pleasant, improved Regular rate and rhythm, clear to auscultation bilaterally but diminished breath sounds all beltran No edema Hospital course: Patient had a lengthy hospital course due to the pneumonia that was likely gram-negative in origin considering her recent hospitalizations and severe COPD. IV steroids were required and overall she stabilized laboratory return back to normal with normal white count at day of discharge and overall patient wanted to go home and she was stable enough to do that. Overall unable to modify risk factors for rehospitalization considering the severity of her COPD and a defibrillation that weekly goes into rapid ventricular response but will try to support her in any way possible to optimize her quality of life. Discharge Summary Discharge Physical Examination Allergies: Coded Allergies: No Known Drug Allergies (Unverified , 08/27/16) Vitals & I&Os Vital Signs Date Time Temp Pulse Resp B/P Pulse Ox O2 Delivery O2 Flow Rate FiO2 12/28/16 08:17 97.9 119 20 129/72 92 Room Air 12/27/16 16:00 1.00 Hospital Course Labs (last 24 hrs) Laboratory Tests 12/27/16 15:04: Vancomycin Level Trough 12.6 12/28/16 05:39: Alanine Aminotransferase (ALT/SGPT) 22, Albumin 3.1L, Alkaline Phosphatase 87, Anion Gap 10, Aspartate Amino Transf (AST/SGOT) 21, BUN/Creatinine Ratio 17, Basophils # (Auto) 0.0, Basophils (%) (Auto) 0, Blood Urea Nitrogen 10, Calcium Level 7.8L, Carbon Dioxide Level 20L, Chloride Level 109H, Creatinine 0.60, Eosinophils # (Auto) 0.0, Eosinophils (%) (Auto) 0, Estimat Glomerular Filtration Rate > 60, Glucose Level 189H, Hematocrit 37, Hemoglobin 11.3L, Lymphocytes # (Auto) 0.2L, Lymphocytes (%) (Auto) 2L, Mean Corpuscular Hemoglobin 28, Mean Corpuscular Hemoglobin Concent 31L, Mean Corpuscular Volume 90, Mean Platelet Volume 9.5, Monocytes # (Auto) 0.1, Monocytes (%) (Auto) 1, Neutrophils # (Auto) 9.8H, Neutrophils (%) (Auto) 96H, Platelet Count 459H, Potassium Level 4.1, Red Blood Count 4.08L, Red Cell Distribution Width 15.7H, Sodium Level 139, Total Bilirubin 0.8, Total Protein 6.3L, White Blood Count 10.2 Microbiology 12/25/16 Blood Culture - Preliminary, Resulted No growth 12/25/16 Urine Culture - Final, Complete Pending Labs Laboratory Tests 12/28/16 05:39: Alanine Aminotransferase (ALT/SGPT) 22, Albumin 3.1, Alkaline Phosphatase 87, Anion Gap 10, Aspartate Amino Transf (AST/SGOT) 21, BUN/Creatinine Ratio 17, Basophils # (Auto) 0.0, Basophils (%) (Auto) 0, Blood Urea Nitrogen 10, Calcium Level 7.8, Carbon Dioxide Level 20, Chloride Level 109, Creatinine 0.60, Eosinophils # (Auto) 0.0, Eosinophils (%) (Auto) 0, Estimat Glomerular Filtration Rate > 60, Glucose Level 189, Hematocrit 37, Hemoglobin 11.3, Lymphocytes # (Auto) 0.2, Lymphocytes (%) (Auto) 2, Mean Corpuscular Hemoglobin 28, Mean Corpuscular Hemoglobin Concent 31, Mean Corpuscular Volume 90, Mean Platelet Volume 9.5, Monocytes # (Auto) 0.1, Monocytes (%) (Auto) 1, Neutrophils # (Auto) 9.8, Neutrophils (%) (Auto) 96, Platelet Count 459, Potassium Level 4.1, Red Blood Count 4.08, Red Cell Distribution Width 15.7, Sodium Level 139, Total Bilirubin 0.8, Total Protein 6.3, White Blood Count 10.2 Discharge Home Medications: Active Scripts Active Ambien (Zolpidem Tartrate) 5 Mg Tablet 5 Mg PO HS Prednisone 10 Mg Tab.ds.pk 10 Mg PO DAILY Take 6 tabs(60mg)daily,decrease by 1 tab(10mg)every other day. Cefdinir 300 Mg Capsule 300 Mg PO BID Alprazolam 0.25 Mg Tablet 0.25 Mg PO Q8H PRN Aspirin 81 Mg Tab.chew 81 Mg PO DAILY Hydrocodone-Chlorphen ER Susp (Hydrocodone/Chlorphen P-Stirex) 473 Ml Chey.er.12h 5 Ml PO Q12H PRN Coreg (Carvedilol) 12.5 Mg Tablet 12.5 Mg PO BID Prednisone 10 Mg Tab.ds.pk 10 Mg PO DAILY Take 6 tabs(60mg)daily,decrease by 1 tab(10MG)daily. Lasix (Furosemide) 20 Mg Tablet 20 Mg PO DAILY Diltiazem 24Hr Cd (Diltiazem HCl) 240 Mg Cap.er.24h 240 Mg PO DAILY Eliquis (Apixaban) 5 Mg Tablet 5 Mg PO BID Reported Advair 250-50 Diskus (Fluticasone/Salmeterol) 1 Each Blst.w.dev 1 Puff IH BID Cheratussin AC Syrup (Guaifenesin/Codeine Phosphate) 118 Ml Liquid 5 Ml PO Q4H PRN HAS NOT STARTED YET Iprat-Albut 0.5-3(2.5) mg/3 ml (Ipratropium/Albuterol Sulfate) 3 Ml Ampul.neb 3 Ml IH BID Daily Multiple Vitamin (Multivitamin) 1 Each Tablet 1 Tab PO DAILY Clopidogrel (Clopidogrel Bisulfate) 75 Mg Tablet 75 Mg PO DAILY Citalopram HBr (Citalopram Hydrobromide) 20 Mg Tablet 20 Mg PO HS Atorvastatin Calcium 20 Mg Tablet 20 Mg PO DAILY Instructions to patient/family Please see electonic discharge instructions given to patient. Clinical Quality Measures DVT/VTE Risk/Contraindication: Risk Factor Score Per Nursin RFS Level Per Nursing on Admit: 2=Moderate JEROME NEAL DO Dec 28, 2016 09:30
[2016-12-28] MEDS: RT-ADVAIR HFA 115/21 MCG PER PUFF IH SCH (10:12)
--- NOTE | 2016-12-28 10:20 | Cardiology Progress Note ---
Subjective Subjective/Events-last exam patient is laying down in bed, feeling better, being discharged home today. Denied any chest pain or shortness of breath. Review of Systems General: No Chills, No Night Sweats, No Fatigue, No Malaise, No Appetite, No Other HEENT: No Head Aches, No Visual Changes, No Eye Pain, No Ear Pain, No Dysphasia , No Sinus Congestion, No Post Nasal Drip, No Sore Throat, No Other Pulmonary: No Dyspnea, No Cough, No Pleuritic Chest Pain, No Other Cardiovascular: No: Chest Pain, Edema, Lt Headedness, Orthopnea, Other, Palpitations, Paroxysmal Noc. Dyspnea Objective-Cardiology Exam Last Set of Vital Signs Vital Signs 12/28/16 12/28/16 08:17 10:14 Temp 97.9 Pulse 119 Resp 20 B/P 129/72 Pulse Ox 92 O2 Delivery Room Air Capillary Refill : Less Than 3 Seconds I&O Intake and Output 12/28/16 00:00 Intake Total 1655 ml Output Total 860 ml Balance 795 ml Intake Oral 1100 ml IV Total 555 ml Output Urine Total 860 ml # Voids 3 General: Alert, Oriented X3, Cooperative HEENT: Atraumatic, PERRLA Neck: Supple, No JVD, No Thyromegaly Lungs: Clear to Auscultation, Normal Air Movement Heart: Normal S1, Normal S2, No Murmurs, Other (irregular rhythm) Abdomen: Normal Bowel Sounds, Soft, No Tenderness, No Hepatosplenomegaly, No Masses Extremities: No Clubbing, No Cyanosis, No Edema, Normal Pulses, No Tenderness/ Swelling Skin: No Rashes, No Breakdown, No Significant Lesion Neuro: Normal Gait, Normal Speech, Strength at 5/5 X4 Ext, Normal Tone, Sensation Intact Psych/Mental Status: Mental Status NL, Mood NL Results Lab Laboratory Tests 12/28/16 05:39 A/P-Cardiology Admission Diagnosis pneumonia Atrial fibrillation Coronary artery disease Hypertension Assessment/Plan Recurrent pneumonia (recently discharged after treatment for RLL, RML pneumonia ) being managed by Dr Verde, she is being discharged today. Follow-up as an outpatient. Chronic atrial fibrillation with a currently rapid vent response, heart rate is better controlled. Continue to monitor. Continue on current medications. Suspected COPD, being followed by Dr Lin Volume overload vs mild decomp ac diastolic CHF, better at this time, no significant edema was noted. Quit tobacco use in 2003 after having smoked for a number of years CAD, h/o cor stenting x 4 on different occasion; last cor stenting at [facility] by Dr Hamilton more than 3 years ago, detail unavailable despite request to [facility] Echo of 08/28/16: LVEF 50%, mild to mod MR, diastolic dysfunction of LV Hyperlipidemia, managed by Dr Verde DM II, managed by Dr Verde Hypertension, controlled, continue to monitor. Non-compliance with OAC reportedly d/t cost Hyperthyroidism (TSH 0.28 on 12/17/16) being managed by Dr Verde Clinical Quality Measures DVT/VTE Risk/Contraindication: Risk Factor Score Per Nursin RFS Level Per Nursing on Admit: 2=Moderate ALEJANDRINA CRAWFORD MD Dec 28, 2016 10:20
--- NOTE | 2016-12-29 13:37 | Physician Query ---
PQ-Uncertain Diagnosis Admission/Discharge Admission Date: Dec 25, 2016 at 14:37 Discharge Date: Dec 28, 2016 at 11:05 The medical record reflects the following clinical scenario: History/Risk Factors: Pneumonia and Atrial Fibrillation Clinical Findings: BNP 260.0 Treatment: 20 mg Lasix IVP Question: Please clarify if either volume overload or mild decompensated acute diastolic congestive heart failure are clinically valid diagnoses? Volume overload vs. mild decompensated acute diastolic congestive heart failure was documented in the 12/26/16, 12/27/16 and 12/28/16 Dr. Kim progress notes with no further documentation in the medical record. Dr. Fischer 's consult said that the slightly elevated BNP was likely related to atrial fibrillation and pneumonia and probably not related to heart failure. Please document a response below. PHYSICIAN RESPONSE Diagnosis clinically valid: Yes, Conditon resolved Please remember a lack of response to the above will prompt a phone page by [facility]/ coding staff. In responding to this query, please exercise your independent professional judgment. The purpose of this communication is to more accurately reflect the complexity of your patients condition. The fact that a question is asked does not imply that any particular answer is desired or expected. Thank you for your timely response to this clarification. Requestors name: Reba Jain [facility] Phone #[phone] THIS PHYSICIAN QUERY FORM IS A PERMANENT PART OF THE MEDICAL RECORD REBA JAIN Dec 29, 2016 13:37 JEROME NEAL DO Dec 30, 2016 07:30
== END 2016-12-28 11:05 | disposition home or self-care (01) | DRG 871 ==
LOC: EDUNIT# 11:12 → ER 11:17 → ICU 14:37 → 4TH 12-27 13:39
PROVIDERS: ADMIT Internal Medicine; ATTEND Internal Medicine
DX: A41.50 Gram-negative sepsis, unspecified (principal); J44.0 Chronic obstructive pulmonary disease with (acute) lower respiratory infection; J15.6 Pneumonia due to other Gram-negative bacteria; J44.1 Chronic obstructive pulmonary disease with (acute) exacerbation; I48.2 Chronic atrial fibrillation; I11.0 Hypertensive heart disease with heart failure; I50.31 Acute diastolic (congestive) heart failure; I25.10 Atherosclerotic heart disease of native coronary artery without angina pectoris; E11.9 Type 2 diabetes mellitus without complications; M06.9 Rheumatoid arthritis, unspecified; I25.2 Old myocardial infarction; E78.00 Pure hypercholesterolemia, unspecified; F41.9 Anxiety disorder, unspecified; F32.9 Major depressive disorder, single episode, unspecified; E03.9 Hypothyroidism, unspecified; E87.6 Hypokalemia; Z91.120 Patient's intentional underdosing of medication regimen due to financial hardship; Z87.891 Personal history of nicotine dependence; Z95.5 Presence of coronary angioplasty implant and graft; Z79.899 Other long term (current) drug therapy
CPT/HCPCS: 36415; 71010; 71020; 80053; 80202; 81000; 83605; 83735; 83880; 84100; 85007; 85025; 85027; 85610; 85730; 87040; 87088; 93005; 94640; 94664; 94760; 94761; 96365; 96366; 96367

== ENCOUNTER → 2017-02-08 | Outpatient (CLI) | payer MEDICARE, OTHER ==
[~2017-02-08] MED LIST changes: +ALPR0.254 PO; +ASPI-999 PO; +CEFD300C3 PO; +ZOLP5TAB PO
== END ==
LOC: RT 13:28
PROVIDERS: ATTEND Nurse Practitioner Family
DX: R06.02 Shortness of breath (principal); Z87.891 Personal history of nicotine dependence
CPT/HCPCS: 94060; 94726; 94729

== ENCOUNTER → 2017-02-24 | Outpatient (CLI) | payer MEDICARE, OTHER ==
--- NOTE | 2017-02-24 16:56 | Diagnostic Imaging Report ---
PROCEDURE: CT chest without contrast. TECHNIQUE: Multiple contiguous axial images were obtained through the chest without the use of intravenous contrast. INDICATION: Respiratory infection. FINDINGS: There is some subpleural fibrosis of the lungs. There are no consolidating alveolar infiltrates. There is coronary calcific arterial sclerosis. There are some small mediastinal lymph nodes but none that are pathologically enlarged. The heart is mildly enlarged. There is some pleural thickening at the left posterior base. There are calcified granulomas in the spleen. There is an 18 mm round mass in the right breast. Further evaluation with ultrasound would be recommended to exclude the possibility of a solid mass versus cyst. IMPRESSION: There is some peripheral interstitial fibrosis in the lungs. There are no acute infiltrates seen. There is coronary atherosclerosis and some focal pleural thickening in the left posterior chest. Further evaluation of the right breast with ultrasound would be recommended. Dictated by: Dictated on workstation # [id number]
== END ==
LOC: RAD 12:20
PROVIDERS: ATTEND Internal Medicine Critical Care Medicine
DX: R06.00 Dyspnea, unspecified (principal); J18.9 Pneumonia, unspecified organism; I10 Essential (primary) hypertension; E78.4 Other hyperlipidemia
CPT/HCPCS: 71250

== ENCOUNTER → 2017-03-04 | Outpatient (CLI) | payer MEDICARE, OTHER ==
--- NOTE | 2017-03-04 19:44 | Diagnostic Imaging Report ---
Bilateral diagnostic mammogram. The current study was also evaluated with a Computer Aided Detection (CAD) system. COMPARISON: Comparison with outside study from April 13, 2015 is obtained. INDICATION: Nodule seen in the right breast on CT scan. FINDINGS: When compared to 2012, there is a stable lobulated mass in the central slightly inferior aspect of the right breast, about 2 cm in size. It appears perhaps minimally smaller compared to the previous study of 2011 and 2012. This is consistent with benign etiology. There are otherwise background scattered fibroglandular tissues and scattered benign-appearing calcifications seen. IMPRESSION: Stable central inferior lobulated right breast mass from 2012, questionably slightly smaller compatible with benign etiology. No mammographic evidence of malignancy. ACR BI-RADS Category 2: Benign findings. Result letter will be mailed to the patient. Note: At least 10% of breast cancer is not imaged by mammography. Dictated by: Dictated on workstation # [id number]
== END ==
LOC: RAD 07:38
PROVIDERS: ATTEND Internal Medicine
DX: N63 Unspecified lump in breast (principal)
CPT/HCPCS: 77066

== ENCOUNTER 2017-04-01 09:00 | Outpatient (RCR) | payer MEDICARE, OTHER | END 2017-04-25 | disposition home or self-care (01) | LOC: PULM 09:00 | PROVIDERS: ATTEND Internal Medicine | DX: J18.9 Pneumonia, unspecified organism (principal); J44.9 Chronic obstructive pulmonary disease, unspecified; I48.91 Unspecified atrial fibrillation; M06.9 Rheumatoid arthritis, unspecified; I25.10 Atherosclerotic heart disease of native coronary artery without angina pectoris; Z95.5 Presence of coronary angioplasty implant and graft | CPT/HCPCS: 99211 ==

== ENCOUNTER 2018-03-20 00:10 | Emergency (ER) | payer MEDICARE, OTHER ==
[~2018-03-20] VITALS: Ht 162.6 cm; Wt 73.5 kg
[~2018-03-20 00:10] MED LIST changes: +ASPI-983 PO; +BUDE10.2 IH; +CHOL10007 PO; -CITA20TA7 PO; +CITA20TA9 PO; +CRV25T PO; +DILT240C53 PO; +FERR-84 PO; +FLAX1000 PO; -IPRA3AMP IH; +IPRA3AMP NEB; +OSEL30CA PO; +PNV1TABL81 PO
--- OUTSIDE RECORDS SUMMARY | 2018-03-20 00:19 | XMS REPORT | Continuity of Care Document ---
Author Author [facility] Organization [facility] Address Unknown Phone Unavailable Allergies Active Description Code Type Severity Reaction Onset Reported/Identified Relationship to Patient Clinical Status Yes No Known Drug Allergies [id number] Drug Allergy Unknown N/A 08/27/2016 Yes egg [id number] Drug Allergy Unknown N/A 12/27/2017 Yes Sulfa (Sulfonamide Antibiotics) [id number] Drug Allergy Unknown N/A 2017 Medications There is no data. Problems Date Dx Coded Attending Type Code Diagnosis Diagnosed By 08/27/2016 JEROME NEAL DO Ot E78.00 PURE HYPERCHOLESTEROLEMIA, UNSPECIFIED 08/27/2016 JEROME NEAL DO Ot I10 ESSENTIAL (PRIMARY) HYPERTENSION 08/27/2016 JEROME NEAL DO Ot I25.10 ATHSCL HEART DISEASE OF [place] CORONARY 08/27/2016 JEROME NEAL DO Ot I25.2 OLD MYOCARDIAL INFARCTION 08/27/2016 JEROME NEAL DO Ot I48.2 CHRONIC ATRIAL FIBRILLATION 08/27/2016 JEROME NEAL DO Ot J18.9 PNEUMONIA, UNSPECIFIED ORGANISM 08/27/2016 JERMOE NEAL DO Ot R09.02 HYPOXEMIA 08/27/2016 JEROME NEAL DO Ot R53.1 WEAKNESS 08/27/2016 JEROME NEAL DO Ot R74.8 ABNORMAL LEVELS OF OTHER SERUM ENZYMES 08/27/2016 JEROME NEAL DO Ot Z79.899 OTHER CARE HOME (CURRENT) DRUG THERAPY 08/27/2016 JEROME NEAL DO Ot Z87.891 PERSONAL HISTORY OF NICOTINE DEPENDENCE 08/27/2016 JEROME NEAL DO Ot 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 PRESENCE OF CORONARY ANGIOPLASTY IMPLANT 08/28/2016 JEROME NEAL DO Ot E78.00 PURE HYPERCHOLESTEROLEMIA, UNSPECIFIED 08/28/2016 JASIEL NEAL DOI Ot I10 ESSENTIAL (PRIMARY) HYPERTENSION 08/28/2016 JEROME NEAL DO Ot I25.10 ATHSCL HEART DISEASE OF [place] CORONARY 08/28/2016 VAL SERRANO JEROME Ot I25.2 OLD MYOCARDIAL INFARCTION 08/28/2016 JASIEL NEAL DOI Ot I48.2 CHRONIC ATRIAL FIBRILLATION 08/28/2016 JASIEL NEAL DOI Ot J18.9 PNEUMONIA, UNSPECIFIED ORGANISM 08/28/2016 VAL SERRANO JEROME Ot R09.02 HYPOXEMIA 08/28/2016 VAL SERRANO JEROME Ot R53.1 WEAKNESS 08/28/2016 JASIEL NEAL DOI Ot R74.8 ABNORMAL LEVELS OF OTHER SERUM ENZYMES 08/28/2016 VAL SERRANO JEROME Ot Z79.899 OTHER TRIPPER (CURRENT) DRUG THERAPY 08/28/2016 VAL SERRANO JEROME Ot Z87.891 PERSONAL HISTORY OF NICOTINE DEPENDENCE 08/28/2016 VAL SERRANO JEROME Ot Z95.5 PRESENCE OF CORONARY ANGIOPLASTY IMPLANT 08/28/2016 JASIEL NEAL DOI Ot E78.00 PURE HYPERCHOLESTEROLEMIA, UNSPECIFIED 08/28/2016 JASIEL NEAL DOI Ot F32.9 MAJOR DEPRESSIVE DISORDER, SINGLE EPISOD 08/28/2016 VAL SERRANO JEROME Ot I10 ESSENTIAL (PRIMARY) HYPERTENSION 08/28/2016 VAL SERRANO JEROME Ot I25.10 ATHSCL HEART DISEASE OF [place] CORONARY 08/28/2016 JASIEL NEAL DOI Ot I25.2 OLD MYOCARDIAL INFARCTION 08/28/2016 JASIEL NEAL DOI Ot I48.2 CHRONIC ATRIAL FIBRILLATION 08/28/2016 JASIEL NEAL DOI Ot J18.9 PNEUMONIA, UNSPECIFIED ORGANISM 08/28/2016 JASIEL NEAL DOI Ot J44.0 CHRONIC OBSTRUCTIVE PULMON DISEASE W ACU 08/28/2016 JASIEL NEAL DOI Ot M06.9 RHEUMATOID ARTHRITIS, UNSPECIFIED 08/28/2016 VAL SERRANO JEROME Ot R09.02 HYPOXEMIA 08/28/2016 VAL SERRANO JEROME Ot R53.1 WEAKNESS 08/28/2016 JASIEL NEAL DOI Ot R74.8 ABNORMAL LEVELS OF OTHER SERUM ENZYMES 08/28/2016 VAL SERRANO JEROME Ot Z79.899 OTHER TRIPPER (CURRENT) DRUG THERAPY 08/28/2016 VAL SERRANO JEROME Ot Z87.891 PERSONAL HISTORY OF NICOTINE DEPENDENCE 08/28/2016 VAL SERRANO JEROME Ot Z95.5 PRESENCE OF CORONARY ANGIOPLASTY IMPLANT 08/29/2016 JEROME NEAL DO Ot A41.9 SEPSIS, UNSPECIFIED ORGANISM 08/29/2016 JASIEL NEAL DOI Ot E11.9 TYPE 2 DIABETES MELLITUS WITHOUT COMPLIC 08/29/2016 JASIEL NEAL DOI Ot E78.00 PURE HYPERCHOLESTEROLEMIA, UNSPECIFIED 08/29/2016 JASIEL NEAL DOI Ot F32.9 MAJOR DEPRESSIVE DISORDER, SINGLE EPISOD 08/29/2016 JASIEL NEAL DOI Ot I08.1 RHEUMATIC DISORDERS OF BOTH MITRAL AND T 08/29/2016 VAL SERRANO JEROME Ot I10 ESSENTIAL (PRIMARY) HYPERTENSION 08/29/2016 VAL SERRANO JEROME Ot I25.10 ATHSCL HEART DISEASE OF [place] CORONARY 08/29/2016 VAL SERRANO JEROME Ot I25.2 OLD MYOCARDIAL INFARCTION 08/29/2016 JASIEL NEAL DOI Ot I48.1 PERSISTENT ATRIAL FIBRILLATION 08/29/2016 JASIEL NEAL DOI Ot I48.2 CHRONIC ATRIAL FIBRILLATION 08/29/2016 JEROME NEAL DO Ot J18.9 PNEUMONIA, UNSPECIFIED ORGANISM 08/29/2016 JASIEL NEAL DOI Ot J44.0 CHRONIC OBSTRUCTIVE PULMON DISEASE W ACU 08/29/2016 JASIEL NEAL DOI Ot M06.9 RHEUMATOID ARTHRITIS, UNSPECIFIED 08/29/2016 JASIEL NEAL DOI Ot R09.02 HYPOXEMIA 08/29/2016 JASIEL NEAL DOI Ot R53.1 WEAKNESS 08/29/2016 JASIEL NEAL DOI Ot R74.8 ABNORMAL LEVELS OF OTHER SERUM ENZYMES 08/29/2016 JEROME NEAL DO Ot Z79.899 OTHER CARE HOME (CURRENT) DRUG THERAPY 08/29/2016 JASIEL NEAL DOI Ot Z87.891 PERSONAL HISTORY OF NICOTINE DEPENDENCE 08/29/2016 JASIEL NEAL DOI Ot Z95.5 PRESENCE OF CORONARY ANGIOPLASTY IMPLANT 12/18/2016 JEROME NEAL DO Ot E11.9 TYPE 2 DIABETES MELLITUS WITHOUT COMPLIC 12/18/2016 JASIEL NEAL DOI Ot I11.0 HYPERTENSIVE HEART DISEASE WITH HEART FA 12/18/2016 JASIEL NEAL DOI Ot I25.10 ATHSCL HEART DISEASE OF [place] CORONARY 12/18/2016 JASIEL NEAL DOI Ot I25.2 OLD MYOCARDIAL INFARCTION 12/18/2016 JASIEL NEAL DOI Ot I48.2 CHRONIC ATRIAL FIBRILLATION 12/18/2016 JEROME NEAL DO Ot I50.33 ACUTE ON CHRONIC DIASTOLIC (CONGESTIVE) 12/18/2016 JEROME NEAL DO Ot J20.9 ACUTE BRONCHITIS, UNSPECIFIED 12/18/2016 JEROME NEAL DO Ot J44.0 CHRONIC OBSTRUCTIVE PULMON DISEASE W ACU 12/18/2016 JEROME NEAL DO Ot J44.1 CHRONIC OBSTRUCTIVE PULMONARY DISEASE W 12/18/2016 JEROME NEAL DO Ot J96.00 ACUTE RESPIRATORY FAILURE, UNSP W HYPOXI 12/18/2016 JEROME NEAL DO Ot M06.9 RHEUMATOID ARTHRITIS, UNSPECIFIED 12/18/2016 JEROME NEAL DO Ot R80.9 PROTEINURIA, UNSPECIFIED 12/18/2016 JEROME NEAL DO Ot Z79.01 TRIPPER (CURRENT) USE OF ANTICOAGULANT 12/18/2016 JEROME NEAL DO Ot Z79.02 CARE HOME (CURRENT) USE OF ANTITHROMBOTI 12/18/2016 JEROME NEAL DO Ot Z79.899 OTHER TRIPPER (CURRENT) DRUG THERAPY 12/18/2016 JEROME NEAL DO Ot Z87.891 PERSONAL HISTORY OF NICOTINE DEPENDENCE 12/18/2016 JEROME NEAL DO Ot Z91.120 PT INTENTL UNDRDOSE OF MEDS REGIMEN DUE 12/28/2016 JEROME NEAL DO Ot A41.50 GRAM-NEGATIVE SEPSIS, UNSPECIFIED 12/28/2016 JEROME NEAL DO Ot E03.9 HYPOTHYROIDISM, UNSPECIFIED 12/28/2016 JEROME NEAL DO Ot E11.9 TYPE 2 DIABETES MELLITUS WITHOUT COMPLIC 12/28/2016 JEROME NEAL DO Ot E78.00 PURE HYPERCHOLESTEROLEMIA, UNSPECIFIED 12/28/2016 JEROME NEAL DO Ot E87.6 HYPOKALEMIA 12/28/2016 JEROME NEAL DO Ot F32.9 MAJOR DEPRESSIVE DISORDER, SINGLE EPISOD 12/28/2016 JEROME NEAL DO Ot F41.9 ANXIETY DISORDER, UNSPECIFIED 12/28/2016 JASIEL NEAL DOI Ot I11.0 HYPERTENSIVE HEART DISEASE WITH HEART FA 12/28/2016 JEROME NEAL DO Ot I25.10 ATHSCL HEART DISEASE OF [place] CORONARY 12/28/2016 JEROME NEAL DO Ot I25.2 OLD MYOCARDIAL INFARCTION 12/28/2016 JEROME NEAL DO Ot I48.2 CHRONIC ATRIAL FIBRILLATION 12/28/2016 JEROME NEAL DO Ot I50.31 ACUTE DIASTOLIC (CONGESTIVE) HEART FAILU 12/28/2016 JEROME NEAL DO Ot J15.6 PNEUMONIA DUE TO OTHER AEROBIC GRAM-NEGA 12/28/2016 JEROME NEAL DO Ot J44.0 CHRONIC OBSTRUCTIVE PULMON DISEASE W ACU 12/28/2016 JEROME NEAL DO Ot J44.1 CHRONIC OBSTRUCTIVE PULMONARY DISEASE W 12/28/2016 JEROME NEAL DO Ot M06.9 RHEUMATOID ARTHRITIS, UNSPECIFIED 12/28/2016 JEROME NEAL DO Ot Z79.899 OTHER CARE HOME (CURRENT) DRUG THERAPY 12/28/2016 JEROME NEAL DO Ot Z87.891 PERSONAL HISTORY OF NICOTINE DEPENDENCE 12/28/2016 JEROME NEAL DO Ot Z91.120 PT INTENTL UNDRDOSE OF MEDS REGIMEN DUE 12/28/2016 JEROME NEAL DO Ot Z95.5 PRESENCE OF CORONARY ANGIOPLASTY IMPLANT 01/26/2017 JEORME NEAL DO Ot I25.10 ATHSCL HEART DISEASE OF [place] CORONARY 01/26/2017 JEROME NEAL DO Ot I48.91 UNSPECIFIED ATRIAL FIBRILLATION 01/26/2017 JEROME NEAL DO Ot J18.9 PNEUMONIA, UNSPECIFIED ORGANISM 01/26/2017 JEROME NEAL DO Ot J44.9 CHRONIC OBSTRUCTIVE PULMONARY DISEASE, U 01/26/2017 JEROME NEAL DO Ot M06.9 RHEUMATOID ARTHRITIS, UNSPECIFIED 01/26/2017 JEROME NEAL DO Ot Z95.5 PRESENCE OF CORONARY ANGIOPLASTY IMPLANT 02/25/2017 JEWEL THAKKAR DO Ot E78.4 OTHER HYPERLIPIDEMIA 02/25/2017 JEWEL THAKKAR DO Ot I10 ESSENTIAL (PRIMARY) HYPERTENSION 02/25/2017 JEWEL THAKKAR DO, Ot J18.9 PNEUMONIA, UNSPECIFIED ORGANISM 02/25/2017 JEWEL THAKKAR DO Ot R06.00 DYSPNEA, UNSPECIFIED 02/25/2017 JEWEL THAKKAR DO Ot E78.4 OTHER HYPERLIPIDEMIA 02/25/2017 JEWEL THAKKAR DO Ot I10 ESSENTIAL (PRIMARY) HYPERTENSION 02/25/2017 JEWEL THAKKAR DO Ot J18.9 PNEUMONIA, UNSPECIFIED ORGANISM 02/25/2017 JEWEL THAKKAR DO Ot R06.00 DYSPNEA, UNSPECIFIED 03/02/2017 JEROME NEAL DO Ot N63 UNSPECIFIED LUMP IN BREAST 03/03/2017 ERIC REIS APRN Ot R06.02 SHORTNESS OF BREATH 03/03/2017 ERIC REIS APRN Ot Z87.891 PERSONAL HISTORY OF NICOTINE DEPENDENCE 03/04/2017 VAL DOJASIELI Ot N63 UNSPECIFIED LUMP IN BREAST 03/04/2017 NEAL DOJASIELI Ot N63 UNSPECIFIED LUMP IN BREAST 03/10/2017 VAL SERRAON JEROME Ot I25.10 ATHSCL HEART DISEASE OF [place] CORONARY 03/10/2017 VAL DO JEROME Ot I48.91 UNSPECIFIED ATRIAL FIBRILLATION 03/10/2017 JASIEL NEAL DOI Ot J18.9 PNEUMONIA, UNSPECIFIED ORGANISM 03/10/2017 VAL SERRANO JEROME Ot J44.9 CHRONIC OBSTRUCTIVE PULMONARY DISEASE, U 03/10/2017 VAL SERRANO EJROME Ot M06.9 RHEUMATOID ARTHRITIS, UNSPECIFIED 03/10/2017 VAL DO JEROME Ot Z95.5 PRESENCE OF CORONARY ANGIOPLASTY IMPLANT 03/25/2017 VAL DOJEROME Ot N63 UNSPECIFIED LUMP IN BREAST 03/29/2017 JEWEL THAKKAR DO Ot E78.4 OTHER HYPERLIPIDEMIA 03/29/2017 JEWEL THAKKAR DO Ot I10 ESSENTIAL (PRIMARY) HYPERTENSION 03/29/2017 JEWEL THAKKAR DO Ot J18.9 PNEUMONIA, UNSPECIFIED ORGANISM 03/29/2017 JEWEL THAKKAR DO Ot R06.00 DYSPNEA, UNSPECIFIED 04/25/2017 VAL SERRANO JEROME Ot I25.10 ATHSCL HEART DISEASE OF [place] CORONARY 04/25/2017 VAL DO JEROME Ot I48.91 UNSPECIFIED ATRIAL FIBRILLATION 04/25/2017 JEROME NEAL DO Ot J18.9 PNEUMONIA, UNSPECIFIED ORGANISM 04/25/2017 JEROME NEAL DO Ot J44.9 CHRONIC OBSTRUCTIVE PULMONARY DISEASE, U 04/25/2017 VAL SERRANO JEROME Ot M06.9 RHEUMATOID ARTHRITIS, UNSPECIFIED 04/25/2017 VAL SERRANO JEROME Ot Z95.5 PRESENCE OF CORONARY ANGIOPLASTY IMPLANT 04/26/2017 NEAL DO, JEROME Ot I25.10 ATHSCL HEART DISEASE OF [place] CORONARY 04/26/2017 NEAL DO, JEROME Ot I48.91 UNSPECIFIED ATRIAL FIBRILLATION 04/26/2017 NEAL DO, JEROME Ot J18.9 PNEUMONIA, UNSPECIFIED ORGANISM 04/26/2017 NEAL DO, JEROME Ot J44.9 CHRONIC OBSTRUCTIVE PULMONARY DISEASE, U 04/26/2017 NEAL DO, JEROME Ot M06.9 RHEUMATOID ARTHRITIS, UNSPECIFIED 04/26/2017 NEAL DO, JEROME Ot Z95.5 PRESENCE OF CORONARY ANGIOPLASTY IMPLANT 12/27/2017 NEAL DO, JEROME Ot I25.10 ATHSCL HEART DISEASE OF [place] CORONARY 12/27/2017 NEAL DO, JEROME Ot I48.91 UNSPECIFIED ATRIAL FIBRILLATION 12/27/2017 NEAL DO, JEROME Ot J18.9 PNEUMONIA, UNSPECIFIED ORGANISM 12/27/2017 NEAL DO, JEROME Ot J44.9 CHRONIC OBSTRUCTIVE PULMONARY DISEASE, U 12/27/2017 NEAL DO, JEROME Ot M06.9 RHEUMATOID ARTHRITIS, UNSPECIFIED 12/27/2017 NEAL DO, JEROME Ot Z95.5 PRESENCE OF CORONARY ANGIOPLASTY IMPLANT 12/28/2017 ANIKET NOVA, JUN Hobbs Ot E05.90 THYROTOXICOSIS, UNSP WITHOUT THYROTOXIC 12/28/2017 JUN MARCIAL MD Ot E11.9 TYPE 2 DIABETES MELLITUS WITHOUT COMPLIC 12/28/2017 JUN MARCIAL MD Ot E78.00 PURE HYPERCHOLESTEROLEMIA, UNSPECIFIED 12/28/2017 JUN MARCIAL MD Ot E78.5 HYPERLIPIDEMIA, UNSPECIFIED 12/28/2017 JUN MARCIAL MD Ot G47.00 INSOMNIA, UNSPECIFIED 12/28/2017 JUN MARCIAL MD Ot G89.29 OTHER CHRONIC PAIN 12/28/2017 JUN MARCIAL MD Ot I11.0 HYPERTENSIVE HEART DISEASE WITH HEART FA 12/28/2017 JUN MARCIAL MD Ot I25.10 ATHSCL HEART DISEASE OF [place] CORONARY 12/28/2017 JUN MARCIAL MD Ot I25.2 OLD MYOCARDIAL INFARCTION 12/28/2017 JUN MARCIAL MD Ot I34.0 NONRHEUMATIC MITRAL (VALVE) INSUFFICIENC 12/28/2017 JUN MARCIAL MD Ot I48.2 CHRONIC ATRIAL FIBRILLATION 12/28/2017 JUN MARCIAL MD, Ot I50.33 ACUTE ON CHRONIC DIASTOLIC (CONGESTIVE) 12/28/2017 JUN MARCIAL MD, Ot J10.1 FLU DUE TO OTH IDENT INFLUENZA VIRUS W O 12/28/2017 JUN MARCIAL MD, Ot J10.89 INFLUENZA DUE TO OTH IDENT INFLUENZA VIR 12/28/2017 JUN MARCIAL MD, Ot J44.1 CHRONIC OBSTRUCTIVE PULMONARY DISEASE W 12/28/2017 JUN MARCIAL MD, Ot M06.9 RHEUMATOID ARTHRITIS, UNSPECIFIED 12/28/2017 JUN MARCIAL MD Ot R09.02 HYPOXEMIA 12/28/2017 JUN MARCIAL MD, Ot R41.0 DISORIENTATION, UNSPECIFIED 12/28/2017 JUN MARCIAL MD, Ot Z79.01 TRIPPER (CURRENT) USE OF ANTICOAGULANT 12/28/2017 JUN MARCIAL MD, Ot Z87.01 PERSONAL HISTORY OF PNEUMONIA (RECURRENT 12/28/2017 JUN MARCIAL MD, Ot Z87.891 PERSONAL HISTORY OF NICOTINE DEPENDENCE 12/28/2017 JUN MARCIAL MD, Ot Z95.5 PRESENCE OF CORONARY ANGIOPLASTY IMPLANT Procedures There is no data. Results Test Result Range Complete blood count (CBC) with automated white blood cell (WBC) differential - 08/27/16 03:15 Blood leukocytes automated count (number/volume) 9.7 10*3/uL 4.3-11.0 Blood erythrocytes automated count (number/volume) 5.14 10*6/uL 4.35-5.85 Venous blood hemoglobin measurement (mass/volume) 15.1 g/dL 11.5-16.0 Blood hematocrit (volume fraction) 46 % 35-52 Automated erythrocyte mean corpuscular volume 89 [foz_us] 80-99 Automated erythrocyte mean corpuscular hemoglobin (mass per erythrocyte) 29 pg 25-34 Automated erythrocyte mean corpuscular hemoglobin concentration measurement ( mass/volume) 33 g/dL 32-36 Automated erythrocyte distribution width ratio 13.4 % 10.0-14.5 Automated blood platelet count (count/volume) 216 10*3/uL 130-400 Automated blood platelet mean volume measurement 10.5 [foz_us] 7.4-10.4 Automated blood neutrophils/100 leukocytes 82 % 42-75 Automated blood lymphocytes/100 leukocytes 10 % 12-44 Blood monocytes/100 leukocytes 8 % 0-12 Automated blood eosinophils/100 leukocytes 0 % 0-10 Automated blood basophils/100 leukocytes 0 % 0-10 Blood neutrophils automated count (number/volume) 8.0 10*3 1.8-7.8 Blood lymphocytes automated count (number/volume) 1.0 10*3 1.0-4.0 Blood monocytes automated count (number/volume) 0.7 10*3 0.0-1.0 Automated eosinophil count 0.0 10*3/uL 0.0-0.3 Automated blood basophil count (count/volume) 0.0 10*3/uL 0.0-0.1 Blood lactic acid measurement (moles/volume) - 08/27/16 03:15 Blood lactic acid measurement (moles/volume) 1.2 mmol/L 0.5-2.0 Comprehensive metabolic panel - 08/27/16 03:15 Serum or plasma sodium measurement (moles/volume) 134 mmol/L 135-145 Serum or plasma potassium measurement (moles/volume) 3.7 mmol/L 3.6-5.0 Serum or plasma chloride measurement (moles/volume) 98 mmol/L 98-107 Carbon dioxide 23 mmol/L 21-32 Serum or plasma anion gap determination (moles/volume) 13 mmol/L 5-14 Serum or plasma urea nitrogen measurement (mass/volume) 12 mg/dL 7-18 Serum or plasma creatinine measurement (mass/volume) 0.71 mg/dL 0.60-1.30 Serum or plasma urea nitrogen/creatinine mass ratio 17 NRG Serum or plasma creatinine measurement with calculation of estimated glomerular filtration rate > NRG Serum or plasma glucose measurement (mass/volume) 134 mg/dL 70-105 Serum or plasma calcium measurement (mass/volume) 9.3 mg/dL 8.5-10.1 Serum or plasma total bilirubin measurement (mass/volume) 1.7 mg/dL 0.1-1.0 Serum or plasma alkaline phosphatase measurement (enzymatic activity/volume) 155 U/L 40-136 Serum or plasma aspartate aminotransferase measurement (enzymatic activity/ volume) 77 U/L 5-34 Serum or plasma alanine aminotransferase measurement (enzymatic activity/volume ) 102 U/L 0-55 Serum or plasma protein measurement (mass/volume) 7.2 g/dL 6.4-8.2 Serum or plasma albumin measurement (mass/volume) 3.7 g/dL 3.2-4.5 Acute hepatitis panel - 08/27/16 03:15 Confirmatory quantitative serum or plasma hepatitis B virus surface antigen measurement Non-Reactive Non-Reactive Hepatitis A virus IgM antibody assay Non-Reactive Non- Reactive Hepatitis B virus core IgM antibody assay Non-Reactive Non-Reactive Serum hepatitis C virus antibody detection Non-Reactive Non-Reactive Bacterial blood culture - 08/27/16 03:15 Bacterial blood culture NG NRG Bacterial blood culture - 08/27/16 03:58 Bacterial blood culture NG NRG Influenza virus A and B antigen detection - 08/27/16 04:45 FLU RESULT NEGATIVE FOR INFLUENZA A AND B ANTIGENS BY IA NRG Complete urinalysis with reflex to culture - 08/27/16 09:45 Urine color determination YELLOW NRG Urine clarity determination CLEAR NRG Urine pH measurement by test strip 5 5-9 Specific gravity of urine by test strip 1.025 1.016- 1.022 Urine protein assay by test strip, semi-quantitative 3+ NEGATIVE Urine glucose detection by automated test strip NEGATIVE NEGATIVE Erythrocytes detection in urine sediment by light microscopy 2+ NEGATIVE Urine ketones detection by automated test strip NEGATIVE NEGATIVE Urine nitrite detection by test strip NEGATIVE NEGATIVE Urine total bilirubin detection by test strip NEGATIVE NEGATIVE Urine urobilinogen measurement by automated test strip (mass/volume) NORMAL NORMAL Urine leukocyte esterase detection by dipstick 1+ NEGATIVE Automated urine sediment erythrocyte count by microscopy (number/high power field) NONE NRG Automated urine sediment leukocyte count by microscopy (number/high power field ) [HPF] NRG Bacteria detection in urine sediment by light microscopy MODERATE NRG Squamous epithelial cells detection in urine sediment by light microscopy 2-5 NRG Crystals detection in urine sediment by light microscopy NONE NRG Casts detection in urine sediment by light microscopy NONE NRG Mucus detection in urine sediment by light microscopy SMALL NRG Complete urinalysis with reflex to culture YES NRG Complete blood count (CBC) with automated white blood cell (WBC) differential - 08/28/16 04:46 Blood leukocytes automated count (number/volume) 13.3 10*3/uL 4.3-11.0 Blood erythrocytes automated count (number/volume) 5.31 10*6/uL 4.35-5.85 Venous blood hemoglobin measurement (mass/volume) 15.7 g/dL 11.5-16.0 Blood hematocrit (volume fraction) 47 % 35-52 Automated erythrocyte mean corpuscular volume 88 [foz_us] 80-99 Automated erythrocyte mean corpuscular hemoglobin (mass per erythrocyte) 30 pg 25-34 Automated erythrocyte mean corpuscular hemoglobin concentration measurement ( mass/volume) 34 g/dL 32-36 Automated erythrocyte distribution width ratio 13.4 % 10.0-14.5 Automated blood platelet count (count/volume) 233 10*3/uL 130-400 Automated blood platelet mean volume measurement 10.6 [foz_us] 7.4-10.4 Automated blood neutrophils/100 leukocytes 90 % 42-75 Automated blood lymphocytes/100 leukocytes 6 % 12-44 Blood monocytes/100 leukocytes 4 % 0-12 Automated blood eosinophils/100 leukocytes 0 % 0-10 Automated blood basophils/100 leukocytes 0 % 0-10 Blood neutrophils automated count (number/volume) 12.0 10*3 1.8-7.8 Blood lymphocytes automated count (number/volume) 0.8 10*3 1.0-4.0 Blood monocytes automated count (number/volume) 0.5 10*3 0.0-1.0 Automated eosinophil count 0.0 10*3/uL 0.0-0.3 Automated blood basophil count (count/volume) 0.0 10*3/uL 0.0-0.1 Comprehensive metabolic panel - 08/28/16 04:46 Serum or plasma sodium measurement (moles/volume) 138 mmol/L 135-145 Serum or plasma potassium measurement (moles/volume) 4.3 mmol/L 3.6-5.0 Serum or plasma chloride measurement (moles/volume) 102 mmol/L 98-107 Carbon dioxide 25 mmol/L 21-32 Serum or plasma anion gap determination (moles/volume) 11 mmol/L 5-14 Serum or plasma urea nitrogen measurement (mass/volume) 17 mg/dL 7-18 Serum or plasma creatinine measurement (mass/volume) 0.75 mg/dL 0.60-1.30 Serum or plasma urea nitrogen/creatinine mass ratio 23 NRG Serum or plasma creatinine measurement with calculation of estimated glomerular filtration rate > NRG Serum or plasma glucose measurement (mass/volume) 168 mg/dL 70-105 Serum or plasma calcium measurement (mass/volume) 10.0 mg/dL 8.5-10.1 Serum or plasma total bilirubin measurement (mass/volume) 1.1 mg/dL 0.1-1.0 Serum or plasma alkaline phosphatase measurement (enzymatic activity/volume) 153 U/L 40-136 Serum or plasma aspartate aminotransferase measurement (enzymatic activity/ volume) 44 U/L 5-34 Serum or plasma alanine aminotransferase measurement (enzymatic activity/volume ) 80 U/L 0-55 Serum or plasma protein measurement (mass/volume) 7.5 g/dL 6.4-8.2 Serum or plasma albumin measurement (mass/volume) 3.6 g/dL 3.2-4.5 Blood manual differential performed detection - 08/28/16 04:46 Blood monocytes/100 leukocytes 2 % NRG Manual blood segmented neutrophils/100 leukocytes 90 % NRG Blood band neutrophils/100 leukocytes 2 % NRG Manual blood lymphocytes/100 leukocytes 4 % NRG Manual eosinophils/100 leukocytes in nose 0 % NRG Manual blood basophils/100 leukocytes 0 % NRG Blood lymphocytes variant/100 leukocytes 2 % NRG Blood ovalocytes detection by light microscopy SLIGHT NRG Blood poikilocytosis detection by light microscopy SLIGHT NRG THYROID STIMULATING HORMONE - 08/28/16 04:46 THYROID STIMULATING HORMONE 0.48 u[iU]/mL 0.35-4.94 Complete blood count (CBC) with automated white blood cell (WBC) differential - 08/29/16 04:34 Blood leukocytes automated count (number/volume) 17.8 10*3/uL 4.3-11.0 Blood erythrocytes automated count (number/volume) 5.52 10*6/uL 4.35-5.85 Venous blood hemoglobin measurement (mass/volume) 16.4 g/dL 11.5-16.0 Blood hematocrit (volume fraction) 49 % 35-52 Automated erythrocyte mean corpuscular volume 89 [foz_us] 80-99 Automated erythrocyte mean corpuscular hemoglobin (mass per erythrocyte) 30 pg 25-34 Automated erythrocyte mean corpuscular hemoglobin concentration measurement ( mass/volume) 34 g/dL 32-36 Automated erythrocyte distribution width ratio 13.7 % 10.0-14.5 Automated blood platelet count (count/volume) 284 10*3/uL 130-400 Automated blood platelet mean volume measurement 10.8 [foz_us] 7.4-10.4 Automated blood neutrophils/100 leukocytes 91 % 42-75 Automated blood lymphocytes/100 leukocytes 6 % 12-44 Blood monocytes/100 leukocytes 4 % 0-12 Automated blood eosinophils/100 leukocytes 0 % 0-10 Automated blood basophils/100 leukocytes 0 % 0-10 Blood neutrophils automated count (number/volume) 16.1 10*3 1.8-7.8 Blood lymphocytes automated count (number/volume) 1.0 10*3 1.0-4.0 Blood monocytes automated count (number/volume) 0.7 10*3 0.0-1.0 Automated eosinophil count 0.0 10*3/uL 0.0-0.3 Automated blood basophil count (count/volume) 0.0 10*3/uL 0.0-0.1 Blood manual differential performed detection - 08/29/16 04:34 Blood monocytes/100 leukocytes 2 % NRG Manual blood segmented neutrophils/100 leukocytes 91 % NRG Blood band neutrophils/100 leukocytes 0 % NRG Manual blood lymphocytes/100 leukocytes 3 % NRG Manual eosinophils/100 leukocytes in nose 0 % NRG Manual blood basophils/100 leukocytes 0 % NRG Blood lymphocytes variant/100 leukocytes 4 % NRG Blood erythrocyte morphology finding identification NORMAL [facility] Comprehensive metabolic panel - 08/29/16 04:34 Serum or plasma sodium measurement (moles/volume) 139 mmol/L 135-145 Serum or plasma potassium measurement (moles/volume) 4.3 mmol/L 3.6-5.0 Serum or plasma chloride measurement (moles/volume) 100 mmol/L 98-107 Carbon dioxide 25 mmol/L 21-32 Serum or plasma anion gap determination (moles/volume) 14 mmol/L 5-14 Serum or plasma urea nitrogen measurement (mass/volume) 23 mg/dL 7-18 Serum or plasma creatinine measurement (mass/volume) 0.82 mg/dL 0.60-1.30 Serum or plasma urea nitrogen/creatinine mass ratio 28 NRG Serum or plasma creatinine measurement with calculation of estimated glomerular filtration rate > NRG Serum or plasma glucose measurement (mass/volume) 150 mg/dL 70-105 Serum or plasma calcium measurement (mass/volume) 10.3 mg/dL 8.5-10.1 Serum or plasma total bilirubin measurement (mass/volume) 1.0 mg/dL 0.1-1.0 Serum or plasma alkaline phosphatase measurement (enzymatic activity/volume) 146 U/L 40-136 Serum or plasma aspartate aminotransferase measurement (enzymatic activity/ volume) 48 U/L 5-34 Serum or plasma alanine aminotransferase measurement (enzymatic activity/volume ) 63 U/L 0-55 Serum or plasma protein measurement (mass/volume) 7.7 g/dL 6.4-8.2 Serum or plasma albumin measurement (mass/volume) 3.8 g/dL 3.2-4.5 Sputum Gram stain - 08/29/16 09:02 Bacterial sputum culture - 08/29/16 09:02 Bacterial sputum culture NORMAL NRG Bacterial urine culture - 08/29/16 09:45 Bacterial urine culture NG NRG Complete blood count (CBC) with automated white blood cell (WBC) differential - 12/16/16 10:45 Blood leukocytes automated count (number/volume) 7.9 10*3/uL 4.3-11.0 Blood erythrocytes automated count (number/volume) 4.11 10*6/uL 4.35-5.85 Venous blood hemoglobin measurement (mass/volume) 11.9 g/dL 11.5-16.0 Blood hematocrit (volume fraction) 38 % 35-52 Automated erythrocyte mean corpuscular volume 93 [foz_us] 80-99 Automated erythrocyte mean corpuscular hemoglobin (mass per erythrocyte) 29 pg 25-34 Automated erythrocyte mean corpuscular hemoglobin concentration measurement ( mass/volume) 31 g/dL 32-36 Automated erythrocyte distribution width ratio 15.8 % 10.0-14.5 Automated blood platelet count (count/volume) 345 10*3/uL 130-400 Automated blood platelet mean volume measurement 9.7 [foz_us] 7.4-10.4 Automated blood neutrophils/100 leukocytes 86 % 42-75 Automated blood lymphocytes/100 leukocytes 8 % 12-44 Blood monocytes/100 leukocytes 6 % 0-12 Automated blood eosinophils/100 leukocytes 0 % 0-10 Automated blood basophils/100 leukocytes 1 % 0-10 Blood neutrophils automated count (number/volume) 6.8 10*3 1.8-7.8 Blood lymphocytes automated count (number/volume) 0.6 10*3 1.0-4.0 Blood monocytes automated count (number/volume) 0.4 10*3 0.0-1.0 Automated eosinophil count 0.0 10*3/uL 0.0-0.3 Automated blood basophil count (count/volume) 0.0 10*3/uL 0.0-0.1 PT panel in platelet poor plasma by coagulation assay - 12/16/16 10:45 Prothrombin time (PT) in platelet poor plasma by coagulation assay 13.5 s 12.2-14.7 INR in platelet poor plasma or blood by coagulation assay 1.1 0.8-1.4 Activated partial thromboplastin time (aPTT) in platelet poor plasma bycoagulation assay - 12/16/16 10:45 Activated partial thromboplastin time (aPTT) in platelet poor plasma bycoagulation assay 23 s 24-35 Comprehensive metabolic panel - 12/16/16 10:45 Serum or plasma sodium measurement (moles/volume) 138 mmol/L 135-145 Serum or plasma potassium measurement (moles/volume) 4.4 mmol/L 3.6-5.0 Serum or plasma chloride measurement (moles/volume) 100 mmol/L 98-107 Carbon dioxide 26 mmol/L 21-32 Serum or plasma anion gap determination (moles/volume) 12 mmol/L 5-14 Serum or plasma urea nitrogen measurement (mass/volume) 13 mg/dL 7-18 Serum or plasma creatinine measurement (mass/volume) 0.77 mg/dL 0.60-1.30 Serum or plasma urea nitrogen/creatinine mass ratio 17 NRG Serum or plasma creatinine measurement with calculation of estimated glomerular filtration rate > NRG Serum or plasma glucose measurement (mass/volume) 128 mg/dL 70-105 Serum or plasma calcium measurement (mass/volume) 9.2 mg/dL 8.5-10.1 Serum or plasma total bilirubin measurement (mass/volume) 1.2 mg/dL 0.1-1.0 Serum or plasma alkaline phosphatase measurement (enzymatic activity/volume) 95 U/L 40-136 Serum or plasma aspartate aminotransferase measurement (enzymatic activity/ volume) 30 U/L 5-34 Serum or plasma alanine aminotransferase measurement (enzymatic activity/volume ) 15 U/L 0-55 Serum or plasma protein measurement (mass/volume) 7.1 g/dL 6.4-8.2 Serum or plasma albumin measurement (mass/volume) 3.6 g/dL 3.2-4.5 Magnesium - 12/16/16 10:45 Magnesium 1.7 mg/dL 1.8-2.4 Serum or plasma C reactive protein measurement (mass/volume) - 12/16/16 10:45 Serum or plasma C reactive protein measurement (mass/volume) 3.35 mg /dL 0.00-0.50 Blood manual differential performed detection - 12/16/16 10:45 Blood monocytes/100 leukocytes 9 % NRG Manual blood segmented neutrophils/100 leukocytes 81 % NRG Manual blood lymphocytes/100 leukocytes 9 % NRG Manual blood basophils/100 leukocytes 1 % NRG Blood erythrocyte morphology finding identification NORMAL NRG Serum or plasma troponin i.cardiac measurement (mass/volume) - 12/16/16 10:45 Serum or plasma troponin i.cardiac measurement (mass/volume) < ng/ mL <0.30 Myoglobin, serum - 12/16/16 10:45 Myoglobin, serum 52.2 ng/mL 10.0-92.0 Serum or plasma lithium measurement (moles/volume) - 12/16/16 10:45 BNP level 405.2 pg/mL <100.0 Arterial blood gas measurement - 12/16/16 10:52 Blood pCO2 43 mm[Hg] 35-45 Blood pO2 118 mm[Hg] 79-93 Arterial blood bicarbonate measurement (moles/volume) 28 mmol/L 23-27 Arterial blood base excess by calculation 3.8 mmol/L -2.5 -2.5 Arterial blood oxygen saturation measurement 99 % 94-100 * Inhaled oxygen flow rate 2L NRG Arterial blood pH measurement with patient temperature correction 7.43 7.37-7.43 Arterial blood carbon dioxide, total measurement (moles/volume) 29.1 mmol/L 21.0-31.0 Body site LT BRACH NRG Assessment of wrist artery patency prior to arterial puncture YES- POS NRG Setting of ventilation mode NO NRG Measurement of body temperature 99.8 NRG Influenza virus A and B antigen detection - 12/16/16 12:03 FLU RESULT NEGATIVE FOR INFLUENZA A AND B ANTIGENS BY IA NRG Blood lactic acid measurement (moles/volume) - 12/16/16 12:10 Blood lactic acid measurement (moles/volume) 1.1 mmol/L 0.5-2.0 Bacterial blood culture - 12/16/16 12:10 Bacterial blood culture NG NRG Bacterial blood culture - 12/16/16 12:49 Bacterial blood culture NG NRG Automated blood complete blood count (hemogram) panel - 12/17/16 04:17 Blood leukocytes automated count (number/volume) 6.3 10*3/uL 4.3-11.0 Blood erythrocytes automated count (number/volume) 3.83 10*6/uL 4.35-5.85 Venous blood hemoglobin measurement (mass/volume) 10.8 g/dL 11.5-16.0 Blood hematocrit (volume fraction) 35 % 35-52 Automated erythrocyte mean corpuscular volume 92 [foz_us] 80-99 Automated erythrocyte mean corpuscular hemoglobin (mass per erythrocyte) 28 pg 25-34 Automated erythrocyte mean corpuscular hemoglobin concentration measurement ( mass/volume) 31 g/dL 32-36 Automated erythrocyte distribution width ratio 15.6 % 10.0-14.5 Automated blood platelet count (count/volume) 288 10*3/uL 130-400 Automated blood platelet mean volume measurement 10.0 [foz_us] 7.4-10.4 Comprehensive metabolic panel - 12/17/16 04:17 Serum or plasma sodium measurement (moles/volume) 138 mmol/L 135-145 Serum or plasma potassium measurement (moles/volume) 4.6 mmol/L 3.6-5.0 Serum or plasma chloride measurement (moles/volume) 104 mmol/L 98-107 Carbon dioxide 22 mmol/L 21-32 Serum or plasma anion gap determination (moles/volume) 12 mmol/L 5-14 Serum or plasma urea nitrogen measurement (mass/volume) 11 mg/dL 7-18 Serum or plasma creatinine measurement (mass/volume) 0.58 mg/dL 0.60-1.30 Serum or plasma urea nitrogen/creatinine mass ratio 19 NRG Serum or plasma creatinine measurement with calculation of estimated glomerular filtration rate > NRG Serum or plasma glucose measurement (mass/volume) 147 mg/dL 70-105 Serum or plasma calcium measurement (mass/volume) 8.2 mg/dL 8.5-10.1 Serum or plasma total bilirubin measurement (mass/volume) 1.4 mg/dL 0.1-1.0 Serum or plasma alkaline phosphatase measurement (enzymatic activity/volume) 74 U/L 40-136 Serum or plasma aspartate aminotransferase measurement (enzymatic activity/ volume) 28 U/L 5-34 Serum or plasma alanine aminotransferase measurement (enzymatic activity/volume ) 15 U/L 0-55 Serum or plasma protein measurement (mass/volume) 6.5 g/dL 6.4-8.2 Serum or plasma albumin measurement (mass/volume) 3.4 g/dL 3.2-4.5 Serum or plasma phosphate measurement (mass/volume) - 12/17/16 04:17 Serum or plasma phosphate measurement (mass/volume) 2.4 mg/dL 2.3-4.7 Magnesium - 12/17/16 04:17 Magnesium 2.0 mg/dL 1.8-2.4 Lipid 1996 panel - 12/17/16 04:17 Serum or plasma triglyceride measurement (mass/volume) 74 mg/dL <150 Serum or plasma cholesterol measurement (mass/volume) 82 mg/dL < 200 Serum or plasma cholesterol in HDL measurement (mass/volume) 22 mg/ dL 40-60 Cholesterol in LDL [mass/volume] in serum or plasma by direct assay 48 mg/dL 1-129 Serum or plasma cholesterol in VLDL measurement (mass/volume) 15 mg/ dL 5-40 THYROID STIMULATING HORMONE - 12/17/16 04:17 THYROID STIMULATING HORMONE 0.28 u[iU]/mL 0.35-4.94 Complete urinalysis with reflex to culture - 12/17/16 09:20 Urine color determination YELLOW NRG Urine clarity determination CLEAR NRG Urine pH measurement by test strip 7 5-9 Specific gravity of urine by test strip 1.010 1.016- 1.022 Urine protein assay by test strip, semi-quantitative 2+ NEGATIVE Urine glucose detection by automated test strip NEGATIVE NEGATIVE Erythrocytes detection in urine sediment by light microscopy NEGATIVE NEGATIVE Urine ketones detection by automated test strip NEGATIVE NEGATIVE Urine nitrite detection by test strip NEGATIVE NEGATIVE Urine total bilirubin detection by test strip NEGATIVE NEGATIVE Urine urobilinogen measurement by automated test strip (mass/volume) NORMAL NORMAL Urine leukocyte esterase detection by dipstick NEGATIVE NEGATIVE Automated urine sediment erythrocyte count by microscopy (number/high power field) NONE NRG Automated urine sediment leukocyte count by microscopy (number/high power field ) NONE NRG Bacteria detection in urine sediment by light microscopy NEGATIVE NRG Squamous epithelial cells detection in urine sediment by light microscopy RARE NRG Crystals detection in urine sediment by light microscopy NONE NRG Casts detection in urine sediment by light microscopy NONE NRG Mucus detection in urine sediment by light microscopy NEGATIVE NRG Complete urinalysis with reflex to culture NO NRG Whole blood basic metabolic panel - 12/18/16 05:00 Serum or plasma sodium measurement (moles/volume) 140 mmol/L 135-145 Serum or plasma potassium measurement (moles/volume) 3.7 mmol/L 3.6-5.0 Serum or plasma chloride measurement (moles/volume) 104 mmol/L 98-107 Carbon dioxide 25 mmol/L 21-32 Serum or plasma anion gap determination (moles/volume) 11 mmol/L 5-14 Serum or plasma urea nitrogen measurement (mass/volume) 12 mg/dL 7-18 Serum or plasma creatinine measurement (mass/volume) 0.61 mg/dL 0.60-1.30 Serum or plasma urea nitrogen/creatinine mass ratio 20 NRG Serum or plasma creatinine measurement with calculation of estimated glomerular filtration rate > NRG Serum or plasma glucose measurement (mass/volume) 112 mg/dL 70-105 Serum or plasma calcium measurement (mass/volume) 8.3 mg/dL 8.5-10.1 Complete blood count (CBC) with automated white blood cell (WBC) differential - 12/25/16 12:26 Blood leukocytes automated count (number/volume) 19.5 10*3/uL 4.3-11.0 Blood erythrocytes automated count (number/volume) 4.57 10*6/uL 4.35-5.85 Venous blood hemoglobin measurement (mass/volume) 12.8 g/dL 11.5-16.0 Blood hematocrit (volume fraction) 41 % 35-52 Automated erythrocyte mean corpuscular volume 90 [foz_us] 80-99 Automated erythrocyte mean corpuscular hemoglobin (mass per erythrocyte) 28 pg 25-34 Automated erythrocyte mean corpuscular hemoglobin concentration measurement ( mass/volume) 31 g/dL 32-36 Automated erythrocyte distribution width ratio 16.3 % 10.0-14.5 Automated blood platelet count (count/volume) 536 10*3/uL 130-400 Automated blood platelet mean volume measurement 9.8 [foz_us] 7.4-10.4 Automated blood neutrophils/100 leukocytes 86 % 42-75 Automated blood lymphocytes/100 leukocytes 6 % 12-44 Blood monocytes/100 leukocytes 7 % 0-12 Automated blood eosinophils/100 leukocytes 0 % 0-10 Automated blood basophils/100 leukocytes 0 % 0-10 Blood neutrophils automated count (number/volume) 16.8 10*3 1.8-7.8 Blood lymphocytes automated count (number/volume) 1.3 10*3 1.0-4.0 Blood monocytes automated count (number/volume) 1.3 10*3 0.0-1.0 Automated eosinophil count 0.1 10*3/uL 0.0-0.3 Automated blood basophil count (count/volume) 0.0 10*3/uL 0.0-0.1 Blood lactic acid measurement (moles/volume) - 12/25/16 12:26 Blood lactic acid measurement (moles/volume) 1.49 mmol/L 0.50-2.00 PT panel in platelet poor plasma by coagulation assay - 12/25/16 12:26 Prothrombin time (PT) in platelet poor plasma by coagulation assay 16.0 s 12.2-14.7 INR in platelet poor plasma or blood by coagulation assay 1.3 0.8-1.4 Activated partial thromboplastin time (aPTT) in platelet poor plasma bycoagulation assay - 12/25/16 12:26 Activated partial thromboplastin time (aPTT) in platelet poor plasma bycoagulation assay 27 s 24-35 Blood manual differential performed detection - 12/25/16 12:26 Blood monocytes/100 leukocytes 9 % NRG Manual blood segmented neutrophils/100 leukocytes 87 % NRG Manual blood lymphocytes/100 leukocytes 4 % NRG Blood target cells detection by light microscopy SLIGHT NRG Blood stomatocytes detection by light microscopy SLIGHT NRG Comprehensive metabolic panel - 12/25/16 12:26 Serum or plasma sodium measurement (moles/volume) 137 mmol/L 135-145 Serum or plasma potassium measurement (moles/volume) 4.4 mmol/L 3.6-5.0 Serum or plasma chloride measurement (moles/volume) 102 mmol/L 98-107 Carbon dioxide 27 mmol/L 21-32 Serum or plasma anion gap determination (moles/volume) 8 mmol/L 5-14 Serum or plasma urea nitrogen measurement (mass/volume) 13 mg/dL 7-18 Serum or plasma creatinine measurement (mass/volume) 0.80 mg/dL 0.60-1.30 Serum or plasma urea nitrogen/creatinine mass ratio 16 NRG Serum or plasma creatinine measurement with calculation of estimated glomerular filtration rate > NRG Serum or plasma glucose measurement (mass/volume) 105 mg/dL 70-105 Serum or plasma calcium measurement (mass/volume) 8.9 mg/dL 8.5-10.1 Serum or plasma total bilirubin measurement (mass/volume) 2.5 mg/dL 0.1-1.0 Serum or plasma alkaline phosphatase measurement (enzymatic activity/volume) 96 U/L 40-136 Serum or plasma aspartate aminotransferase measurement (enzymatic activity/ volume) 28 U/L 5-34 Serum or plasma alanine aminotransferase measurement (enzymatic activity/volume ) 30 U/L 0-55 Serum or plasma protein measurement (mass/volume) 7.0 g/dL 6.4-8.2 Serum or plasma albumin measurement (mass/volume) 3.6 g/dL 3.2-4.5 Serum or plasma lithium measurement (moles/volume) - 12/25/16 12:26 BNP level 260.0 pg/mL <100.0 Bacterial blood culture - 12/25/16 12:26 Bacterial blood culture NG NRG Bacterial blood culture - 12/25/16 12:40 Bacterial blood culture NG NRG Complete urinalysis with reflex to culture - 12/25/16 15:30 Urine color determination YELLOW NRG Urine clarity determination CLEAR NRG Urine pH measurement by test strip 8 5-9 Specific gravity of urine by test strip 1.010 1.016- 1.022 Urine protein assay by test strip, semi-quantitative 3+ NEGATIVE Urine glucose detection by automated test strip NEGATIVE NEGATIVE Erythrocytes detection in urine sediment by light microscopy 1+ NEGATIVE Urine ketones detection by automated test strip NEGATIVE NEGATIVE Urine nitrite detection by test strip NEGATIVE NEGATIVE Urine total bilirubin detection by test strip NEGATIVE NEGATIVE Urine urobilinogen measurement by automated test strip (mass/volume) NORMAL NORMAL Urine leukocyte esterase detection by dipstick 1+ NEGATIVE Automated urine sediment erythrocyte count by microscopy (number/high power field) NONE NRG Automated urine sediment leukocyte count by microscopy (number/high power field ) [HPF] NRG Bacteria detection in urine sediment by light microscopy FEW NRG Crystals detection in urine sediment by light microscopy NONE NRG Casts detection in urine sediment by light microscopy NONE NRG Mucus detection in urine sediment by light microscopy NEGATIVE NRG Complete urinalysis with reflex to culture YES NRG Bacterial urine culture - 12/25/16 15:30 URINE CULTURE RESULTS <10,000/ML NRG Complete blood count (CBC) with automated white blood cell (WBC) differential - 12/26/16 03:25 Blood leukocytes automated count (number/volume) 13.0 10*3/uL 4.3-11.0 Blood erythrocytes automated count (number/volume) 4.01 10*6/uL 4.35-5.85 Venous blood hemoglobin measurement (mass/volume) 11.1 g/dL 11.5-16.0 Blood hematocrit (volume fraction) 37 % 35-52 Automated erythrocyte mean corpuscular volume 92 [foz_us] 80-99 Automated erythrocyte mean corpuscular hemoglobin (mass per erythrocyte) 28 pg 25-34 Automated erythrocyte mean corpuscular hemoglobin concentration measurement ( mass/volume) 30 g/dL 32-36 Automated erythrocyte distribution width ratio 16.1 % 10.0-14.5 Automated blood platelet count (count/volume) 404 10*3/uL 130-400 Automated blood platelet mean volume measurement 9.9 [foz_us] 7.4-10.4 Automated blood neutrophils/100 leukocytes 87 % 42-75 Automated blood lymphocytes/100 leukocytes 6 % 12-44 Blood monocytes/100 leukocytes 6 % 0-12 Automated blood eosinophils/100 leukocytes 1 % 0-10 Automated blood basophils/100 leukocytes 0 % 0-10 Blood neutrophils automated count (number/volume) 11.3 10*3 1.8-7.8 Blood lymphocytes automated count (number/volume) 0.7 10*3 1.0-4.0 Blood monocytes automated count (number/volume) 0.8 10*3 0.0-1.0 Automated eosinophil count 0.1 10*3/uL 0.0-0.3 Automated blood basophil count (count/volume) 0.0 10*3/uL 0.0-0.1 Comprehensive metabolic panel - 12/26/16 03:25 Serum or plasma sodium measurement (moles/volume) 141 mmol/L 135-145 Serum or plasma potassium measurement (moles/volume) 3.9 mmol/L 3.6-5.0 Serum or plasma chloride measurement (moles/volume) 110 mmol/L 98-107 Carbon dioxide 21 mmol/L 21-32 Serum or plasma anion gap determination (moles/volume) 10 mmol/L 5-14 Serum or plasma urea nitrogen measurement (mass/volume) 9 mg/dL 7-18 Serum or plasma creatinine measurement (mass/volume) 0.60 mg/dL 0.60-1.30 Serum or plasma urea nitrogen/creatinine mass ratio 15 NRG Serum or plasma creatinine measurement with calculation of estimated glomerular filtration rate > NRG Serum or plasma glucose measurement (mass/volume) 104 mg/dL 70-105 Serum or plasma calcium measurement (mass/volume) 8.0 mg/dL 8.5-10.1 Serum or plasma total bilirubin measurement (mass/volume) 2.0 mg/dL 0.1-1.0 Serum or plasma alkaline phosphatase measurement (enzymatic activity/volume) 86 U/L 40-136 Serum or plasma aspartate aminotransferase measurement (enzymatic activity/ volume) 30 U/L 5-34 Serum or plasma alanine aminotransferase measurement (enzymatic activity/volume ) 24 U/L 0-55 Serum or plasma protein measurement (mass/volume) 5.8 g/dL 6.4-8.2 Serum or plasma albumin measurement (mass/volume) 2.8 g/dL 3.2-4.5 Serum or plasma phosphate measurement (mass/volume) - 12/26/16 03:25 Serum or plasma phosphate measurement (mass/volume) 2.0 mg/dL 2.3-4.7 Magnesium - 12/26/16 03:25 Magnesium 1.8 mg/dL 1.8-2.4 Vancomycin trough - 12/26/16 14:52 Vancomycin trough 10.1 ug/mL 10.0-20.0 Complete blood count (CBC) with automated white blood cell (WBC) differential - 12/27/16 05:13 Blood leukocytes automated count (number/volume) 12.4 10*3/uL 4.3-11.0 Blood erythrocytes automated count (number/volume) 3.98 10*6/uL 4.35-5.85 Venous blood hemoglobin measurement (mass/volume) 11.0 g/dL 11.5-16.0 Blood hematocrit (volume fraction) 36 % 35-52 Automated erythrocyte mean corpuscular volume 91 [foz_us] 80-99 Automated erythrocyte mean corpuscular hemoglobin (mass per erythrocyte) 28 pg 25-34 Automated erythrocyte mean corpuscular hemoglobin concentration measurement ( mass/volume) 30 g/dL 32-36 Automated erythrocyte distribution width ratio 15.9 % 10.0-14.5 Automated blood platelet count (count/volume) 403 10*3/uL 130-400 Automated blood platelet mean volume measurement 9.9 [foz_us] 7.4-10.4 Automated blood neutrophils/100 leukocytes 84 % 42-75 Automated blood lymphocytes/100 leukocytes 8 % 12-44 Blood monocytes/100 leukocytes 6 % 0-12 Automated blood eosinophils/100 leukocytes 2 % 0-10 Automated blood basophils/100 leukocytes 0 % 0-10 Blood neutrophils automated count (number/volume) 10.4 10*3 1.8-7.8 Blood lymphocytes automated count (number/volume) 1.0 10*3 1.0-4.0 Blood monocytes automated count (number/volume) 0.7 10*3 0.0-1.0 Automated eosinophil count 0.3 10*3/uL 0.0-0.3 Automated blood basophil count (count/volume) 0.0 10*3/uL 0.0-0.1 Comprehensive metabolic panel - 12/27/16 05:13 Serum or plasma sodium measurement (moles/volume) 139 mmol/L 135-145 Serum or plasma potassium measurement (moles/volume) 3.3 mmol/L 3.6-5.0 Serum or plasma chloride measurement (moles/volume) 108 mmol/L 98-107 Carbon dioxide 21 mmol/L 21-32 Serum or plasma anion gap determination (moles/volume) 10 mmol/L 5-14 Serum or plasma urea nitrogen measurement (mass/volume) 8 mg/dL 7-18 Serum or plasma creatinine measurement (mass/volume) 0.62 mg/dL 0.60-1.30 Serum or plasma urea nitrogen/creatinine mass ratio 13 NRG Serum or plasma creatinine measurement with calculation of estimated glomerular filtration rate > NRG Serum or plasma glucose measurement (mass/volume) 135 mg/dL 70-105 Serum or plasma calcium measurement (mass/volume) 7.7 mg/dL 8.5-10.1 Serum or plasma total bilirubin measurement (mass/volume) 1.1 mg/dL 0.1-1.0 Serum or plasma alkaline phosphatase measurement (enzymatic activity/volume) 77 U/L 40-136 Serum or plasma aspartate aminotransferase measurement (enzymatic activity/ volume) 19 U/L 5-34 Serum or plasma alanine aminotransferase measurement (enzymatic activity/volume ) 20 U/L 0-55 Serum or plasma protein measurement (mass/volume) 5.6 g/dL 6.4-8.2 Serum or plasma albumin measurement (mass/volume) 2.8 g/dL 3.2-4.5 Serum or plasma phosphate measurement (mass/volume) - 12/27/16 05:13 Serum or plasma phosphate measurement (mass/volume) 1.3 mg/dL 2.3-4.7 Magnesium - 12/27/16 05:13 Magnesium 1.6 mg/dL 1.8-2.4 Vancomycin trough - 12/27/16 15:04 Vancomycin trough 12.6 ug/mL 10.0-20.0 Complete blood count (CBC) with automated white blood cell (WBC) differential - 12/28/16 05:39 Blood leukocytes automated count (number/volume) 10.2 10*3/uL 4.3-11.0 Blood erythrocytes automated count (number/volume) 4.08 10*6/uL 4.35-5.85 Venous blood hemoglobin measurement (mass/volume) 11.3 g/dL 11.5-16.0 Blood hematocrit (volume fraction) 37 % 35-52 Automated erythrocyte mean corpuscular volume 90 [foz_us] 80-99 Automated erythrocyte mean corpuscular hemoglobin (mass per erythrocyte) 28 pg 25-34 Automated erythrocyte mean corpuscular hemoglobin concentration measurement ( mass/volume) 31 g/dL 32-36 Automated erythrocyte distribution width ratio 15.7 % 10.0-14.5 Automated blood platelet count (count/volume) 459 10*3/uL 130-400 Automated blood platelet mean volume measurement 9.5 [foz_us] 7.4-10.4 Automated blood neutrophils/100 leukocytes 96 % 42-75 Automated blood lymphocytes/100 leukocytes 2 % 12-44 Blood monocytes/100 leukocytes 1 % 0-12 Automated blood eosinophils/100 leukocytes 0 % 0-10 Automated blood basophils/100 leukocytes 0 % 0-10 Blood neutrophils automated count (number/volume) 9.8 10*3 1.8-7.8 Blood lymphocytes automated count (number/volume) 0.2 10*3 1.0-4.0 Blood monocytes automated count (number/volume) 0.1 10*3 0.0-1.0 Automated eosinophil count 0.0 10*3/uL 0.0-0.3 Automated blood basophil count (count/volume) 0.0 10*3/uL 0.0-0.1 Comprehensive metabolic panel - 12/28/16 05:39 Serum or plasma sodium measurement (moles/volume) 139 mmol/L 135-145 Serum or plasma potassium measurement (moles/volume) 4.1 mmol/L 3.6-5.0 Serum or plasma chloride measurement (moles/volume) 109 mmol/L 98-107 Carbon dioxide 20 mmol/L 21-32 Serum or plasma anion gap determination (moles/volume) 10 mmol/L 5-14 Serum or plasma urea nitrogen measurement (mass/volume) 10 mg/dL 7-18 Serum or plasma creatinine measurement (mass/volume) 0.60 mg/dL 0.60-1.30 Serum or plasma urea nitrogen/creatinine mass ratio 17 NRG Serum or plasma creatinine measurement with calculation of estimated glomerular filtration rate > NRG Serum or plasma glucose measurement (mass/volume) 189 mg/dL 70-105 Serum or plasma calcium measurement (mass/volume) 7.8 mg/dL 8.5-10.1 Serum or plasma total bilirubin measurement (mass/volume) 0.8 mg/dL 0.1-1.0 Serum or plasma alkaline phosphatase measurement (enzymatic activity/volume) 87 U/L 40-136 Serum or plasma aspartate aminotransferase measurement (enzymatic activity/ volume) 21 U/L 5-34 Serum or plasma alanine aminotransferase measurement (enzymatic activity/volume ) 22 U/L 0-55 Serum or plasma protein measurement (mass/volume) 6.3 g/dL 6.4-8.2 Serum or plasma albumin measurement (mass/volume) 3.1 g/dL 3.2-4.5 Complete blood count (CBC) with automated white blood cell (WBC) differential - 12/26/17 18:30 Blood leukocytes automated count (number/volume) 9.8 10*3/uL 4.3-11.0 Blood erythrocytes automated count (number/volume) 4.11 10*6/uL 4.35-5.85 Venous blood hemoglobin measurement (mass/volume) 12.9 g/dL 11.5-16.0 Blood hematocrit (volume fraction) 39 % 35-52 Automated erythrocyte mean corpuscular volume 95 [foz_us] 80-99 Automated erythrocyte mean corpuscular hemoglobin (mass per erythrocyte) 31 pg 25-34 Automated erythrocyte mean corpuscular hemoglobin concentration measurement ( mass/volume) 33 g/dL 32-36 Automated erythrocyte distribution width ratio 13.1 % 10.0-14.5 Automated blood platelet count (count/volume) 264 10*3/uL 130-400 Automated blood platelet mean volume measurement 10.4 [foz_us] 7.4-10.4 Automated blood neutrophils/100 leukocytes 80 % 42-75 Automated blood lymphocytes/100 leukocytes 10 % 12-44 Blood monocytes/100 leukocytes 8 % 0-12 Automated blood eosinophils/100 leukocytes 2 % 0-10 Automated blood basophils/100 leukocytes 1 % 0-10 Blood neutrophils automated count (number/volume) 7.8 10*3 1.8-7.8 Blood lymphocytes automated count (number/volume) 0.9 10*3 1.0-4.0 Blood monocytes automated count (number/volume) 0.8 10*3 0.0-1.0 Automated eosinophil count 0.2 10*3/uL 0.0-0.3 Automated blood basophil count (count/volume) 0.1 10*3/uL 0.0-0.1 Blood lactic acid measurement (moles/volume) - 12/26/17 18:30 Blood lactic acid measurement (moles/volume) 1.19 mmol/L 0.50-2.00 PT panel in platelet poor plasma by coagulation assay - 12/26/17 18:30 Prothrombin time (PT) in platelet poor plasma by coagulation assay 17.6 s 12.2-14.7 INR in platelet poor plasma or blood by coagulation assay 1.4 0.8-1.4 Activated partial thromboplastin time (aPTT) in platelet poor plasma bycoagulation assay - 12/26/17 18:30 Activated partial thromboplastin time (aPTT) in platelet poor plasma bycoagulation assay 33 s 24-35 Comprehensive metabolic panel - 12/26/17 18:30 Serum or plasma sodium measurement (moles/volume) 136 mmol/L 135-145 Serum or plasma potassium measurement (moles/volume) 4.0 mmol/L 3.6-5.0 Serum or plasma chloride measurement (moles/volume) 101 mmol/L 98-107 Carbon dioxide 28 mmol/L 21-32 Serum or plasma anion gap determination (moles/volume) 7 mmol/L 5-14 Serum or plasma urea nitrogen measurement (mass/volume) 10 mg/dL 7-18 Serum or plasma creatinine measurement (mass/volume) 0.71 mg/dL 0.60-1.30 Serum or plasma urea nitrogen/creatinine mass ratio 14 NRG Serum or plasma creatinine measurement with calculation of estimated glomerular filtration rate > NRG Serum or plasma glucose measurement (mass/volume) 157 mg/dL 70-105 Serum or plasma calcium measurement (mass/volume) 8.9 mg/dL 8.5-10.1 Serum or plasma total bilirubin measurement (mass/volume) 2.0 mg/dL 0.1-1.0 Serum or plasma alkaline phosphatase measurement (enzymatic activity/volume) 128 U/L 40-136 Serum or plasma aspartate aminotransferase measurement (enzymatic activity/ volume) 24 U/L 5-34 Serum or plasma alanine aminotransferase measurement (enzymatic activity/volume ) 25 U/L 0-55 Serum or plasma protein measurement (mass/volume) 6.9 g/dL 6.4-8.2 Serum or plasma albumin measurement (mass/volume) 3.7 g/dL 3.2-4.5 Serum or plasma lithium measurement (moles/volume) - 12/26/17 18:30 BNP level 399.8 pg/mL <100.0 Bacterial blood culture - 12/26/17 18:30 Bacterial blood culture NG NR Arterial blood gas measurement - 12/26/17 18:52 Blood pCO2 46 mm[Hg] 35-45 Blood pO2 81 mm[Hg] 79-93 Arterial blood bicarbonate measurement (moles/volume) 26 mmol/L 23-27 Arterial blood base excess by calculation 2.0 mmol/L -2.5 -2.5 Arterial blood oxygen saturation measurement 96 % 94-100 * Inhaled oxygen flow rate 3L NRG Arterial blood pH measurement with patient temperature correction 7.39 7.37-7.43 Arterial blood carbon dioxide, total measurement (moles/volume) 27.6 mmol/L 21.0-31.0 Body site RIGHT RADIAL NRG Assessment of wrist artery patency prior to arterial puncture YES- POS NRG Setting of ventilation mode NO NRG Measurement of body temperature 100.9 NRG Influenza virus A and B antigen detection - 12/26/17 19:12 CALL POSITIVES (F1 HELP) [facility] NRG FLU RESULT POSITIVE FOR INFLUENZA B ANTIGEN, NEG FOR A ANTIGEN, BY IA NRG Bacterial blood culture - 12/26/17 19:22 Bacterial blood culture NG NR Complete urinalysis with reflex to culture - 12/26/17 20:17 Urine color determination YELLOW NRG Urine clarity determination CLEAR NRG Urine pH measurement by test strip 7 5-9 Specific gravity of urine by test strip 1.015 1.016- 1.022 Urine protein assay by test strip, semi-quantitative 3+ NEGATIVE Urine glucose detection by automated test strip NEGATIVE NEGATIVE Erythrocytes detection in urine sediment by light microscopy 2+ NEGATIVE Urine ketones detection by automated test strip NEGATIVE NEGATIVE Urine nitrite detection by test strip NEGATIVE NEGATIVE Urine total bilirubin detection by test strip NEGATIVE NEGATIVE Urine urobilinogen measurement by automated test strip (mass/volume) 8 mg/dL NORMAL Urine leukocyte esterase detection by dipstick 3+ NEGATIVE Automated urine sediment erythrocyte count by microscopy (number/high power field) [HPF] NRG Automated urine sediment leukocyte count by microscopy (number/high power field ) [HPF] NRG Bacteria detection in urine sediment by light microscopy FEW NRG Squamous epithelial cells detection in urine sediment by light microscopy 5-10 NRG Crystals detection in urine sediment by light microscopy NONE NRG Casts detection in urine sediment by light microscopy NONE NRG Mucus detection in urine sediment by light microscopy NEGATIVE NRG Complete urinalysis with reflex to culture YES NRG Bacterial urine culture - 12/26/17 20:17 URINE CULTURE RESULTS <10,000/ML NRG Complete blood count (CBC) with automated white blood cell (WBC) differential - 12/26/17 23:35 Blood leukocytes automated count (number/volume) 9.3 10*3/uL 4.3-11.0 Blood erythrocytes automated count (number/volume) 4.25 10*6/uL 4.35-5.85 Venous blood hemoglobin measurement (mass/volume) 13.4 g/dL 11.5-16.0 Blood hematocrit (volume fraction) 40 % 35-52 Automated erythrocyte mean corpuscular volume 95 [foz_us] 80-99 Automated erythrocyte mean corpuscular hemoglobin (mass per erythrocyte) 32 pg 25-34 Automated erythrocyte mean corpuscular hemoglobin concentration measurement ( mass/volume) 33 g/dL 32-36 Automated erythrocyte distribution width ratio 13.0 % 10.0-14.5 Automated blood platelet count (count/volume) 276 10*3/uL 130-400 Automated blood platelet mean volume measurement 9.9 [foz_us] 7.4-10.4 Automated blood neutrophils/100 leukocytes 75 % 42-75 Automated blood lymphocytes/100 leukocytes 13 % 12-44 Blood monocytes/100 leukocytes 10 % 0-12 Automated blood eosinophils/100 leukocytes 2 % 0-10 Automated blood basophils/100 leukocytes 0 % 0-10 Blood neutrophils automated count (number/volume) 7.0 10*3 1.8-7.8 Blood lymphocytes automated count (number/volume) 1.2 10*3 1.0-4.0 Blood monocytes automated count (number/volume) 0.9 10*3 0.0-1.0 Automated eosinophil count 0.2 10*3/uL 0.0-0.3 Automated blood basophil count (count/volume) 0.0 10*3/uL 0.0-0.1 Comprehensive metabolic panel - 12/26/17 23:35 Serum or plasma sodium measurement (moles/volume) 138 mmol/L 135-145 Serum or plasma potassium measurement (moles/volume) 3.7 mmol/L 3.6-5.0 Serum or plasma chloride measurement (moles/volume) 99 mmol/L 98-107 Carbon dioxide 29 mmol/L 21-32 Serum or plasma anion gap determination (moles/volume) 10 mmol/L 5-14 Serum or plasma urea nitrogen measurement (mass/volume) 10 mg/dL 7-18 Serum or plasma creatinine measurement (mass/volume) 0.74 mg/dL 0.60-1.30 Serum or plasma urea nitrogen/creatinine mass ratio 14 NRG Serum or plasma creatinine measurement with calculation of estimated glomerular filtration rate > NRG Serum or plasma glucose measurement (mass/volume) 125 mg/dL 70-105 Serum or plasma calcium measurement (mass/volume) 8.7 mg/dL 8.5-10.1 Serum or plasma total bilirubin measurement (mass/volume) 1.9 mg/dL 0.1-1.0 Serum or plasma alkaline phosphatase measurement (enzymatic activity/volume) 135 U/L 40-136 Serum or plasma aspartate aminotransferase measurement (enzymatic activity/ volume) 24 U/L 5-34 Serum or plasma alanine aminotransferase measurement (enzymatic activity/volume ) 22 U/L 0-55 Serum or plasma protein measurement (mass/volume) 7.0 g/dL 6.4-8.2 Serum or plasma albumin measurement (mass/volume) 3.7 g/dL 3.2-4.5 Comprehensive metabolic panel - 12/27/17 06:06 Serum or plasma sodium measurement (moles/volume) 136 mmol/L 135-145 Serum or plasma potassium measurement (moles/volume) 3.5 mmol/L 3.6-5.0 Serum or plasma chloride measurement (moles/volume) 100 mmol/L 98-107 Carbon dioxide 26 mmol/L 21-32 Serum or plasma anion gap determination (moles/volume) 10 mmol/L 5-14 Serum or plasma urea nitrogen measurement (mass/volume) 10 mg/dL 7-18 Serum or plasma creatinine measurement (mass/volume) 0.66 mg/dL 0.60-1.30 Serum or plasma urea nitrogen/creatinine mass ratio 15 NRG Serum or plasma creatinine measurement with calculation of estimated glomerular filtration rate > NRG Serum or plasma glucose measurement (mass/volume) 109 mg/dL 70-105 Serum or plasma calcium measurement (mass/volume) 8.4 mg/dL 8.5-10.1 Serum or plasma total bilirubin measurement (mass/volume) 2.1 mg/dL 0.1-1.0 Serum or plasma alkaline phosphatase measurement (enzymatic activity/volume) 131 U/L 40-136 Serum or plasma aspartate aminotransferase measurement (enzymatic activity/ volume) 23 U/L 5-34 Serum or plasma alanine aminotransferase measurement (enzymatic activity/volume ) 22 U/L 0-55 Serum or plasma protein measurement (mass/volume) 7.0 g/dL 6.4-8.2 Serum or plasma albumin measurement (mass/volume) 3.6 g/dL 3.2-4.5 Complete blood count (CBC) with automated white blood cell (WBC) differential - 12/27/17 06:06 Blood leukocytes automated count (number/volume) 10.3 10*3/uL 4.3-11.0 Blood erythrocytes automated count (number/volume) 4.28 10*6/uL 4.35-5.85 Venous blood hemoglobin measurement (mass/volume) 13.3 g/dL 11.5-16.0 Blood hematocrit (volume fraction) 40 % 35-52 Automated erythrocyte mean corpuscular volume 94 [foz_us] 80-99 Automated erythrocyte mean corpuscular hemoglobin (mass per erythrocyte) 31 pg 25-34 Automated erythrocyte mean corpuscular hemoglobin concentration measurement ( mass/volume) 33 g/dL 32-36 Automated erythrocyte distribution width ratio 13.0 % 10.0-14.5 Automated blood platelet count (count/volume) 267 10*3/uL 130-400 Automated blood platelet mean volume measurement 10.8 [foz_us] 7.4-10.4 Automated blood neutrophils/100 leukocytes 79 % 42-75 Automated blood lymphocytes/100 leukocytes 11 % 12-44 Blood monocytes/100 leukocytes 8 % 0-12 Automated blood eosinophils/100 leukocytes 2 % 0-10 Automated blood basophils/100 leukocytes 0 % 0-10 Blood neutrophils automated count (number/volume) 8.1 10*3 1.8-7.8 Blood lymphocytes automated count (number/volume) 1.1 10*3 1.0-4.0 Blood monocytes automated count (number/volume) 0.9 10*3 0.0-1.0 Automated eosinophil count 0.2 10*3/uL 0.0-0.3 Automated blood basophil count (count/volume) 0.0 10*3/uL 0.0-0.1 Complete blood count (CBC) with automated white blood cell (WBC) differential - 12/28/17 06:15 Blood leukocytes automated count (number/volume) 11.3 10*3/uL 4.3-11.0 Blood erythrocytes automated count (number/volume) 4.52 10*6/uL 4.35-5.85 Venous blood hemoglobin measurement (mass/volume) 14.1 g/dL 11.5-16.0 Blood hematocrit (volume fraction) 42 % 35-52 Automated erythrocyte mean corpuscular volume 93 [foz_us] 80-99 Automated erythrocyte mean corpuscular hemoglobin (mass per erythrocyte) 31 pg 25-34 Automated erythrocyte mean corpuscular hemoglobin concentration measurement ( mass/volume) 33 g/dL 32-36 Automated erythrocyte distribution width ratio 12.9 % 10.0-14.5 Automated blood platelet count (count/volume) 284 10*3/uL 130-400 Automated blood platelet mean volume measurement 9.9 [foz_us] 7.4-10.4 Automated blood neutrophils/100 leukocytes 80 % 42-75 Automated blood lymphocytes/100 leukocytes 10 % 12-44 Blood monocytes/100 leukocytes 7 % 0-12 Automated blood eosinophils/100 leukocytes 3 % 0-10 Automated blood basophils/100 leukocytes 0 % 0-10 Blood neutrophils automated count (number/volume) 9.1 10*3 1.8-7.8 Blood lymphocytes automated count (number/volume) 1.1 10*3 1.0-4.0 Blood monocytes automated count (number/volume) 0.8 10*3 0.0-1.0 Automated eosinophil count 0.3 10*3/uL 0.0-0.3 Automated blood basophil count (count/volume) 0.0 10*3/uL 0.0-0.1 Comprehensive metabolic panel - 12/28/17 06:15 Serum or plasma sodium measurement (moles/volume) 138 mmol/L 135-145 Serum or plasma potassium measurement (moles/volume) 3.2 mmol/L 3.6-5.0 Serum or plasma chloride measurement (moles/volume) 103 mmol/L 98-107 Carbon dioxide 27 mmol/L 21-32 Serum or plasma anion gap determination (moles/volume) 8 mmol/L 5-14 Serum or plasma urea nitrogen measurement (mass/volume) 11 mg/dL 7-18 Serum or plasma creatinine measurement (mass/volume) 0.68 mg/dL 0.60-1.30 Serum or plasma urea nitrogen/creatinine mass ratio 16 NRG Serum or plasma creatinine measurement with calculation of estimated glomerular filtration rate > NRG Serum or plasma glucose measurement (mass/volume) 105 mg/dL 70-105 Serum or plasma calcium measurement (mass/volume) 8.5 mg/dL 8.5-10.1 Serum or plasma total bilirubin measurement (mass/volume) 1.8 mg/dL 0.1-1.0 Serum or plasma alkaline phosphatase measurement (enzymatic activity/volume) 120 U/L 40-136 Serum or plasma aspartate aminotransferase measurement (enzymatic activity/ volume) 18 U/L 5-34 Serum or plasma alanine aminotransferase measurement (enzymatic activity/volume ) 19 U/L 0-55 Serum or plasma protein measurement (mass/volume) 6.8 g/dL 6.4-8.2 Serum or plasma albumin measurement (mass/volume) 3.4 g/dL 3.2-4.5 Magnesium - 12/28/17 06:15 Magnesium 1.7 mg/dL 1.8-2.4 THYROID STIMULATING HORMONE - 12/28/17 06:15 THYROID STIMULATING HORMONE 0.92 u[iU]/mL 0.35-4.94 Encounters ACCT No. Visit Date/Time Discharge Status Pt. Type Provider Facility Loc./Unit Complaint [id number] 12/26/2017 21:00:00 12/28/2017 12:40:00 DIS Inpatient ANIKET NOVA, JUN Hobbs [facility] 4TH ACUTE HEART FAILURE HYPOXIA, INFLUENZA B [id number] 04/26/2017 10:15:00 04/26/2017 23:59:59 CLS Preadmit VAL DO JEROME [facility] PULM BILAT PNEUMONIA [id number] 04/01/2017 09:00:00 04/25/2017 00:01:00 DIS Outpatient NEAL DO JEROME [facility] PULM BILAT PNEUMONIA [id number] 03/04/2017 07:38:00 03/04/2017 23:59:59 CLS Outpatient NEAL DO JEROME [facility] RAD N63 [id number] 02/24/2017 12:20:00 02/24/2017 23:59:59 CLS Outpatient JEWEL THAKKAR DO [facility] RAD R06.00 SOB [id number] 02/08/2017 13:28:00 02/08/2017 23:59:59 CLS Outpatient ERIC REIS APRN [facility] RT Z87.891,R06.00 [id number] 12/25/2016 14:37:00 12/28/2016 11:05:00 DIS Inpatient NEAL DO JEROME [facility] 4TH PNEUMONIA BILAT A-FIB W/ RVR [id number] 12/16/2016 12:27:00 12/18/2016 11:40:00 DIS Inpatient NEAL DO, JEROME [facility] 4TH AFIB W/ RVR,RESP FAILURE, PNEUMONIA [id number] 08/27/2016 05:20:00 08/29/2016 13:15:00 DIS Inpatient NEAL DO, JEROME [facility] 4TH LLL PNEUMONIA W/ HYPOXIA ; AFIB W/ RVR; HTN [id number] 03/22/2013 13:54:00 03/22/2013 23:59:59 CLS Outpatient [id number] 03/20/2018 00:14:00 ACT Emergency PATRICIA CABAN MD [facility] ER LOW O2 90% FALL 3 TIMES TODAY DELMI
--- NOTE | 2018-03-20 00:39 | ED Cough/URI ---
General Stated Complaint: LOW O2 90% FALL 3 TIMES TODAY WHIZZY History of Present Illness Date Seen by Provider: Mar 20, 2018 Time Seen by Provider: 00:34 Initial Comments Patient presents to the emergency room with complaints of productive cough, wheezing, weakness, and recent falls due to weakness for 2 days. She denies fever and injuries with the falls but has a significant history of pneumonia. Timing/Duration: yesterday Severity/Quality: moderate, productive cough Prior Episodes/Possible Cause: frequent episodes Modifying Factors: Worse With Activity; Improves With Coughing, Improves With Rest Associated Symptoms: cough, dizziness, wheezing (DAVID WOODS STUDENT) Severity/Quality: productive cough, sputum Associated Symptoms: fever/chills, shortness of breath (PATRICIA CABAN MD) Allergies and Home Medications Allergies Coded Allergies: Sulfa (Sulfonamide Antibiotics) (Verified Allergy, Unknown, 12/27/17) egg (Verified Allergy, Unknown, 12/27/17) Home Medications Apixaban 5 Mg Tablet, 5 MG PO BID, (Reported) LAST FILLED #60 12-28-17 Aspirin 81 Mg Tablet.dr, 81 MG PO HS, (Reported) Budesonide/Formoterol Fumarate 10.2 Gm Hfa.aer.ad, 2 PUFF IH BID PRN for SHORTNESS OF BREATH, (Reported) LAST FILLED DECEMBER 2016 Carvedilol 25 Mg Tab, 12.5 MG PO BID, (Reported) LAST FILLED #180 07-30-17 BUT TAKES 1/2 BID TAKES 1/2 (25MG) TABLET Cholecalciferol (Vitamin D3) 1,000 Unit Capsule, 1,000 UNIT PO DAILY, (Reported) Citalopram Hydrobromide 20 Mg Tablet, 20 MG PO HS, (Reported) Diltiazem HCl 240 Mg Cap.er.24h, 240 MG PO DAILY, (Reported) LAST FILLED #30 11-16-17 Ferrous Sulfate 325 Mg Tablet, 325 MG PO HS, (Reported) Flaxseed Oil 1,000 Mg Capsule, 1,000 MG PO 1200, (Reported) Furosemide 20 Mg Tablet, 20 MG PO DAILY PRN for SWELLING, (Reported) LAST FILLED #February Ipratropium/Albuterol Sulfate 3 Ml Ampul.neb, 3 ML NEB TID PRN for SHORTNESS OF BREATH, (Reported) LAST FILLED MARCH 2017 Oseltamivir Phosphate 30 Mg Capsule, 0 EACH PO BID Prescribed by: JEROME NEAL on 12/28/17 0911 Pnv No.122/Iron/Folic Acid 1 Each Tablet, 1 TAB PO 1200, (Reported) [Instaflex] , 1 TAB PO BID, (Reported) Patient Home Medication List Home Medication List Reviewed: Yes (DAVID WOODS) Review of Systems Constitutional: see HPI, weakness EENTM: see HPI Respiratory: see HPI, cough, dyspnea on exertion, phlegm, wheezing Cardiovascular: see HPI Gastrointestinal: see HPI Genitourinary: see HPI Musculoskeletal: see HPI Skin: see HPI Psychiatric/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: See HPI Hematologic/Lymphatic: See HPI Immunological/Allergic: see HPI (DAVID WOODS) All Other Systems Reviewed Negative Unless Noted: Yes (DAVID WOODS) Negative Unless Noted: Yes (PATRICIA CABAN MD) Past Eygpqom-Uknzil-Trueqj Hx Past Med/Social Hx: Reviewed Nursing Past Med/Soc Hx (DAVID WOODS) Past Med/Social Hx: Reviewed Nursing Past Med/Soc Hx (PATRICIA CABAN MD) Patient Social History Type Used: Cigarettes Former Smoker, Quit: Aug 27, 2004 Recent Foreign Travel: No Contact w/Someone Who Travel: No Recent Hopitalizations: No (DAVID WOODS) Immunizations Up To Date Date of Pneumonia Vaccine: Sep 17, 2015 (DAVID WOODS) Seasonal Allergies Seasonal Allergies: No (DAVID WOODS) Past Medical History Surgeries: Yes (CARDIAC CATH X 3--STENTS X 4) Cardiac, Coronary Stent, Tubal Ligation Respiratory: Yes Pneumonia, COPD Currently Using CPAP: No Cardiac: Yes Atrial Fibrillation, Coronary Artery Disease, Heart Attack, High Cholesterol, Hypertension 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: 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 History: Menopausal Genitourinary: No Gastrointestinal: No Musculoskeletal: Yes Rheumatoid Arthritis Endocrine: No HEENT: No Cancer: No Psychosocial: No Integumentary: No Blood Disorders: No Adverse Reaction/Blood Tranf: No (DAVID WOODS) Family Medical History Reviewed Nursing Family Hx (DAVID WOODS) Reviewed Nursing Family Hx (PATRICIA CABAN MD) Cardiovascular disease 19 MOTHER Diabetes mellitus 19 MOTHER Hypertension 19 MOTHER No Pertinent Family Hx (DAVID WOODS) Physical Exam Vital Signs Vital Signs - First Documented 03/20/18 00:18 Temp 97.6 Pulse 110 Resp 21 B/P (MAP) 139/103 (115) Pulse Ox 94 O2 Delivery Room Air (PATRICIA CABAN MD) Vital Signs Capillary Refill : (DAVID WOODS STUDENT) General Appearance: WD/WN, no apparent distress Eyes: Bilateral Eye Normal Inspection, Bilateral Eye PERRL HEENT: normal ENT inspection, TMs normal Neck: non-tender, full range of motion Respiratory: chest non-tender, lungs clear, no respiratory distress, no accessory muscle use, crackles (to the right lower lobe) Cardiovascular: normal peripheral pulses, regular rate, rhythm, no edema Gastrointestinal: normal bowel sounds, non tender Extremities: normal range of motion, non-tender Neurologic/Psychiatric: alert, oriented x 3 Skin: normal color, warm/dry Lymphatic: no adenopathy (DAVID WOODS STUDENT) Respiratory: no respiratory distress, crackles (right base) Cardiovascular: no murmur, tachycardia Extremities: no pedal edema, no calf tenderness (PATRICIA CABAN MD) Focused Exam Lactate Level 03/20/18 00:40: Lactic Acid Level 1.58 (PATRICIA CABAN MD) Lactic Acid Level Laboratory Tests Test 03/20/18 00:40 Lactic Acid Level 1.58 MMOL/L (0.50-2.00) (PATRICIA CABAN MD) Progress/Results/Core Measures Suspected Sepsis SIRS Temperature: Pulse: Respiratory Rate: Blood Pressure / Mean: (DAVID WOODS STUDENT) Results/Orders Lab Results Laboratory Tests Test 03/20/18 00:40 Range/Units White Blood Count 8.5 4.3-11.0 10^3/uL Red Blood Count 4.95 4.35-5.85 10^6/uL Hemoglobin 15.5 11.5-16.0 G/DL Hematocrit 45 35-52 % Mean Corpuscular Volume 91 80-99 FL Mean Corpuscular Hemoglobin 31 25-34 PG Mean Corpuscular Hemoglobin Concent 34 32-36 G/DL Red Cell Distribution Width 14.1 10.0-14.5 % Platelet Count 238 130-400 10^3/uL Mean Platelet Volume 10.9 H 7.4-10.4 FL Neutrophils (%) (Auto) 83 H 42-75 % Lymphocytes (%) (Auto) 10 L 12-44 % Monocytes (%) (Auto) 7 0-12 % Eosinophils (%) (Auto) 1 0-10 % Basophils (%) (Auto) 1 0-10 % Neutrophils # (Auto) 7.0 1.8-7.8 X 10^3 Lymphocytes # (Auto) 0.8 L 1.0-4.0 X 10^3 Monocytes # (Auto) 0.6 0.0-1.0 X 10^3 Eosinophils # (Auto) 0.1 0.0-0.3 10^3/uL Basophils # (Auto) 0.0 0.0-0.1 10^3/uL Prothrombin Time 13.7 12.2-14.7 SEC INR Comment 1.1 0.8-1.4 Activated Partial Thromboplast Time 28 24-35 SEC Sodium Level 139 135-145 MMOL/L Potassium Level 3.6 3.6-5.0 MMOL/L Chloride Level 100 98-107 MMOL/L Carbon Dioxide Level 25 21-32 MMOL/L Anion Gap 14 5-14 MMOL/L Blood Urea Nitrogen 12 7-18 MG/DL Creatinine 0.74 0.60-1.30 MG/DL Estimat Glomerular Filtration Rate > 60 BUN/Creatinine Ratio 16 Glucose Level 118 H 70-105 MG/DL Lactic Acid Level 1.58 0.50-2.00 MMOL/L Calcium Level 9.6 8.5-10.1 MG/DL Total Bilirubin 1.5 H 0.1-1.0 MG/DL Aspartate Amino Transf (AST/SGOT) 38 H 5-34 U/L Alanine Aminotransferase (ALT/SGPT) 39 0-55 U/L Alkaline Phosphatase 125 40-136 U/L B-Type Natriuretic Peptide 646.8 H <100.0 PG/ML Total Protein 7.6 6.4-8.2 GM/DL Albumin 3.9 3.2-4.5 GM/DL (PATRICIA CABAN MD) My Orders Orders - PATRICIA CABAN MD Chest 1 View, Ap/Pa Only (03/20/18 00:40) Cbc With Automated Diff (03/20/18 00:40) Comprehensive Metabolic Panel (03/20/18 00:40) BNP (03/20/18 00:40) Blood Culture (03/20/18 00:40) Ekg Tracing (03/20/18 00:40) O2 (03/20/18 00:40) Saline Lock/Iv-Start (03/20/18 00:40) Monitor-Rhythm Ecg Trace Only (03/20/18 00:40) Lactic Acid Analyzer (03/20/18 00:40) Sputum Culture (03/20/18 00:45) Ua Culture If Indicated (03/20/18 00:45) Protime With Inr (03/20/18 00:45) Partial Thromboplastin Time (03/20/18 00:45) Vital Signs Adult Sepsis Patie Q1H (03/20/18 00:45) Remove Rings In Anticipation O (03/20/18 00:45) Furosemide Injection (Lasix Injection) (03/20/18 02:15) (PATRICIA CABAN MD) Medications Given in ED Current Medications Medications Dose Ordered Sig/Kadeem Route Start Time Stop Time Status Last Admin Dose Admin Furosemide 40 mg ONCE ONCE IVP 03/20/18 02:15 03/20/18 02:16 03/20/18 02:07 40 MG (PATRICIA CABAN MD) Vital Signs/I&O 03/20/18 00:18 Temp 97.6 Pulse 110 Resp 21 B/P (MAP) 139/103 (115) Pulse Ox 94 O2 Delivery Room Air (PATRICIA CABAN MD) Vital Signs/I&O Capillary Refill : (DAVID WOODS STUDENT) Progress Note : Progress Note Seen and evaluated the patient and agree with above except as indicated. I have directed the plan of care. Patient here with shortness of breath and 2 falls that were only partial falls. Denies hitting her head or injury as significant spits that she made twisted her right ankle that. Does have history of heart failure. Denies fever or chills. Reports seeing her digital media associate a few days ago who prescribed a water pill but she has not started taking yet. I have reviewed the lab and x-ray. She does have cardiomegaly with some vascular congestion. We did do a walking O2 sats which remained above 92 percent on room air at this point. She has family staying with her. Patient does not want to stay in the hospital. We can try outpatient therapy. Lasix 40 mg IV ordered. She will continue outpatient water pills that were previously prescribed. Discharged home with return precautions. Patient verbalize understanding instructions and agreement with plan. (PATRICIA CABAN MD) Diagnostic Imaging Diagonstic Imaging: Xray Plain Films/CT/US/NM/MRI: chest Comments Cardiomegaly with pulmonary vascular congestion Reviewed: Reviewed by Me (PATRICIA CABAN MD) Departure Impression Primary Impression: Heart failure Qualified Codes: I50.23 - Acute on chronic systolic (congestive) heart failure Disposition: HOME, SELF-CARE Condition: Stable Departure-Patient Inst. Decision time for Depature: 02:19 (PATRICIA CABAN MD) Referrals: JEROME NEAL DO (PCP/Family) Primary Care Physician Patient Instructions: Heart Failure, Adult (DC) Add. Discharge Instructions: You should start your water pills as previously prescribed. Avoid sodium in your diet. Follow-up with your doctor on Wednesday or Wednesday for recheck and further evaluation. Return for worsening, fever, vomiting, weakness, breathing problems, or other concerns as needed. DAVID WOODS STUDENT Mar 20, 2018 00:39 PATRICIA CABAN MD Mar 20, 2018 02:20
[2018-03-20 00:52] LABS: BASOPHILS % (AUTO) 1 % (0-10); EOSINOPHILS # (AUTO) 0.1 10^3/uL (0.0-0.3); EOSINOPHILS % (AUTO) 1 % (0-10); HEMATOCRIT 45 % (35-52); HEMOGLOBIN 15.5 G/DL (11.5-16.0); LYMPHOCYTES # (AUTO) 0.8 X 10^3 (1.0-4.0); LYMPHOCYTES % (AUTO) 10 % (12-44); MEAN CORPUSCULAR HEMOGLOBIN 31 PG (25-34); MEAN CORPUSCULAR HGB CONC 34 G/DL (32-36); MEAN CORPUSCULAR VOLUME 91 FL (80-99); MEAN PLATELET VOLUME 10.9 FL (7.4-10.4); MONOCYTES # (AUTO) 0.6 X 10^3 (0.0-1.0); MONOCYTES % (AUTO) 7 % (0-12); NEUTROPHILS % (AUTO) 83 % (42-75); PLATELET COUNT 238 10^3/uL (130-400); RED BLOOD COUNT 4.95 10^6/uL (4.35-5.85); RED CELL DISTRIBUTION WIDTH 14.1 % (10.0-14.5); WHITE BLOOD COUNT 8.5 10^3/uL (4.3-11.0)
[2018-03-20 01:02] LABS: INR 1.1 (0.8-1.4); PROTHROMBIN TIME PATIENT 13.7 SEC (12.2-14.7)
[2018-03-20 01:11] LABS: ALANINE AMINOTRANSFERASE 39 U/L (0-55); ALBUMIN 3.9 GM/DL (3.2-4.5); ALKALINE PHOSPHATASE 125 U/L (40-136); BILIRUBIN,TOTAL 1.5 MG/DL (0.1-1.0); BUN/CREATININE RATIO 16; CALCIUM 9.6 MG/DL (8.5-10.1); CARBON DIOXIDE 25 MMOL/L (21-32); CHLORIDE 100 MMOL/L (98-107); CREATININE SERUM 0.74 MG/DL (0.60-1.30); GFR ESTIMATED > 60; GLUCOSE 118 MG/DL (70-105); POTASSIUM 3.6 MMOL/L (3.6-5.0); SODIUM 139 MMOL/L (135-145); TOTAL PROTEIN 7.6 GM/DL (6.4-8.2)
[2018-03-20] MEDS ORDERED: FUROSEMIDE 40 MG/4 ML INJ (LASIX) IVP ONE (02:15)
[2018-03-20 02:30] VITALS: BP 139/103
--- NOTE | 2018-03-20 08:22 | Diagnostic Imaging Report ---
Indication: Wheezing Comparison: 12/26/2017 Technique: Single frontal radiograph of the chest dated March 20, 2018. Findings: The cardiac silhouette is enlarged, though stable. Minimal central pulmonary vascular congestion. The lungs are clear of focal pulmonary opacity. No pleural effusion. No pneumothorax. No acute osseous abnormality. Impression: Cardiomegaly with minimal central pulmonary vascular. Dictated by: Dictated on workstation # [id number]
== END 2018-03-20 02:30 | disposition home or self-care (01) ==
LOC: EDUNIT# 00:10 → ER 00:14
DX: I11.0 Hypertensive heart disease with heart failure (principal); I50.9 Heart failure, unspecified; J44.9 Chronic obstructive pulmonary disease, unspecified; I48.91 Unspecified atrial fibrillation; I25.10 Atherosclerotic heart disease of native coronary artery without angina pectoris; E78.00 Pure hypercholesterolemia, unspecified; M06.9 Rheumatoid arthritis, unspecified; I25.2 Old myocardial infarction; Z88.2 Allergy status to sulfonamides; Z79.01 Long term (current) use of anticoagulants; Z79.82 Long term (current) use of aspirin; Z82.49 Family history of ischemic heart disease and other diseases of the circulatory system; Z87.891 Personal history of nicotine dependence; Z87.01 Personal history of pneumonia (recurrent); Z98.51 Tubal ligation status; Z95.5 Presence of coronary angioplasty implant and graft
CPT/HCPCS: 36415; 71045; 80053; 83605; 83880; 85025; 85610; 85730; 87040; 93005; 93041; 96374

== ENCOUNTER 2018-11-01 23:43 | Observation (INO) | payer MEDICARE, OTHER ==
[~2018-11-01] VITALS: Ht 162.6 cm; Wt 77.1 kg
[~2018-11-01 23:43] MED LIST changes: -FLAX1000 PO; +FLAX10004 PO; -IPRA3AMP INH; -IPRA3AMP NEB; +IPRA3AMP31 INH; +IPRA3AMP31 NEB
[2018-11-01] MEDS ORDERED: ASPIRIN 81 MG CHEW (CHILDREN'S ASA) ONE (23:58)
[2018-11-01] MEDS ORDERED: NITROGLYCERIN 0.4 MG SL TABS BTL 25'S SL ONE (23:58)
[2018-11-02] VITALS (7 sets, daily range): BP systolic 110–126; BP diastolic 62–75
[2018-11-02] MEDS ORDERED: ASPIRIN 81 MG CHEW (CHILDREN'S ASA) PO ONE
[2018-11-02] MEDS ORDERED: DILTIAZEM 125 MG/25 ML IV (CARDIZEM) IV ONE (00:08)
[2018-11-02 00:14] LABS: BASOPHILS % (AUTO) 0 % (0-10); EOSINOPHILS # (AUTO) 0.3 10^3/uL (0.0-0.3); EOSINOPHILS % (AUTO) 3 % (0-10); HEMATOCRIT 42 % (35-52); HEMOGLOBIN 13.7 G/DL (11.5-16.0); LYMPHOCYTES # (AUTO) 1.4 X 10^3 (1.0-4.0); LYMPHOCYTES % (AUTO) 14 % (12-44); MEAN CORPUSCULAR HEMOGLOBIN 30 PG (25-34); MEAN CORPUSCULAR HGB CONC 32 G/DL (32-36); MEAN CORPUSCULAR VOLUME 92 FL (80-99); MEAN PLATELET VOLUME 10.3 FL (7.4-10.4); MONOCYTES # (AUTO) 0.4 X 10^3 (0.0-1.0); MONOCYTES % (AUTO) 4 % (0-12); NEUTROPHILS # (AUTO) 8.4 X 10^3 (1.8-7.8); NEUTROPHILS % (AUTO) 80 % (42-75); PLATELET COUNT 333 10^3/uL (130-400); RED BLOOD COUNT 4.61 10^6/uL (4.35-5.85); WHITE BLOOD COUNT 10.5 10^3/uL (4.3-11.0)
[2018-11-02] MEDS ORDERED: DILTIAZEM INJECTION 125 MG in NS (IVPB) 100 ML IV SCH (00:15)
[2018-11-02] MEDS ORDERED: DILTIAZEM 25 MG/5 ML INJ (CARDIZEM) VIAL IVP ONE (00:15)
[2018-11-02 00:42] LABS: ALANINE AMINOTRANSFERASE 20 U/L (0-55); ALBUMIN 3.9 GM/DL (3.2-4.5); ALKALINE PHOSPHATASE 142 U/L (40-136); BILIRUBIN,TOTAL 1.1 MG/DL (0.1-1.0); BUN/CREATININE RATIO 12; CALCIUM 9.3 MG/DL (8.5-10.1); CARBON DIOXIDE 25 MMOL/L (21-32); CHLORIDE 102 MMOL/L (98-107); CREATININE SERUM 0.75 MG/DL (0.60-1.30); GFR ESTIMATED > 60; GLUCOSE 129 MG/DL (70-105); INR 1.2 (0.8-1.4); MAGNESIUM 1.8 MG/DL (1.8-2.4); POTASSIUM 3.7 MMOL/L (3.6-5.0); PROTHROMBIN TIME PATIENT 14.8 SEC (12.2-14.7); SODIUM 139 MMOL/L (135-145); TOTAL PROTEIN 7.5 GM/DL (6.4-8.2)
[2018-11-02 00:48] LABS: MYOGLOBIN SERUM 35.5 NG/ML (10.0-92.0)
[2018-11-02] MEDS ORDERED: CARVEDILOL 6.25 MG (COREG) TAB PO ONE (02:15)
[2018-11-02] MEDS ORDERED: DILTIAZEM 240 MG (CARDIZEM CD) CAP PO ONE (02:15)
--- NOTE | 2018-11-02 03:09 | ED General ---
General Chief Complaint: Chest Pain Stated Complaint: CP Nursing Triage Note: AMBULATORY TO ED WITH C/O CP THAT STARTED YESTERDAY BUT WORSE TODAY AND THIS EVENING. STATES IT HURTS WHEN SHE BREATHS, DENIES COUGH AND FEVER/CHILLS. ONLY TOOK ELIQUIS AND CITALOPRAM THIS AM. HAS NOT BEEN TAKING DAILY ASA, BUT ARTHRITIS PAIN MEDICATION. Nursing Sepsis Screen: No Definite Risk Source of Information: Patient Exam Limitations: No Limitations History of Present Illness Date Seen by Provider: Nov 01, 2018 Time Seen by Provider: 23:49 Initial Comments This 73-year-old woman presents to the emergency room with complaints of left- sided chest pain. It seems to be worse with activity and deep breath. Patient reports they have been moving recently so she has had some change in activity. She has had a mild cough without fever. She does admit to some shortness of breath. She rates her pain as 7 out of 10 and worsening today. She also has some muscle spasms in the left chest. She is noted to be hypertensive and tachycardic. She states she did not take her Cartia her Coreg today because she "didn't feel like it". Review of her chart notes she recently filled Cefdinir. She states this was because Dr. Gary's office did some blood work and thought she likely had an infection somewhere. Patient has atrial fibrillation and is in RVR at this time. She is anticoagulated and reports taking her Eliquis today. She states she "almost always" takes her Eliquis. Allergies and Home Medications Allergies Coded Allergies: Sulfa (Sulfonamide Antibiotics) (Verified Allergy, Unknown, 12/27/17) egg (Verified Allergy, Unknown, 12/27/17) Home Medications Apixaban 5 Mg Tablet, 5 MG PO BID, (Reported) LAST FILLED #60 12-28-17 Aspirin 81 Mg Tablet.dr, 81 MG PO HS, (Reported) Budesonide/Formoterol Fumarate 10.2 Gm Hfa.aer.ad, 2 PUFF IH BID PRN for SHORTNESS OF BREATH, (Reported) LAST FILLED DECEMBER 2016 Carvedilol 25 Mg Tab, 12.5 MG PO BID, (Reported) LAST FILLED #180 07-30-17 BUT TAKES 1/2 BID TAKES 1/2 (25MG) TABLET Cholecalciferol (Vitamin D3) 1,000 Unit Capsule, 1,000 UNIT PO DAILY, (Reported) Citalopram Hydrobromide 20 Mg Tablet, 20 MG PO HS, (Reported) Diltiazem HCl 240 Mg Cap.er.24h, 240 MG PO DAILY, (Reported) LAST FILLED #30 11-16-17 Ferrous Sulfate 325 Mg Tablet, 325 MG PO HS, (Reported) Flaxseed Oil 1,000 Mg Capsule, 1,000 MG PO 1200, (Reported) Furosemide 20 Mg Tablet, 20 MG PO DAILY PRN for SWELLING, (Reported) LAST FILLED #February Ipratropium/Albuterol Sulfate 3 Ml Ampul.neb, 3 ML NEB TID PRN for SHORTNESS OF BREATH, (Reported) LAST FILLED MARCH 2017 Oseltamivir Phosphate 30 Mg Capsule, 0 EACH PO BID Prescribed by: JEROME NEAL on 12/28/17 0911 Pnv No.122/Iron/Folic Acid 1 Each Tablet, 1 TAB PO 1200, (Reported) [Instaflex] , 1 TAB PO BID, (Reported) Patient Home Medication List Home Medication List Reviewed: Yes Review of Systems Review of Systems Constitutional: no symptoms reported EENTM: no symptoms reported Respiratory: see HPI Cardiovascular: see HPI Gastrointestinal: no symptoms reported Genitourinary: no symptoms reported : No Musculoskeletal: no symptoms reported Skin: no symptoms reported Psychiatric/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: No Symptoms Reported Hematologic/Lymphatic: See HPI Immunological/Allergic: no symptoms reported Past Mniyyov-Bditie-Jhshsq Hx Patient Social History Alcohol Use: Occasionally Uses Recreational Drug Use: No Smoking Status: Former Smoker Type Used: Cigarettes Former Smoker, Quit: Aug 27, 2004 Recent Foreign Travel: No Contact w/Someone Who Travel: No Recent Infectious Disease Expo: No Recent Hopitalizations: No Immunizations Up To Date Date of Pneumonia Vaccine: Sep 17, 2015 Seasonal Allergies Seasonal Allergies: No Past Medical History Surgeries: Yes (CARDIAC CATH X 3--STENTS X 4) Cardiac, Coronary Stent, Gallbladder, Tubal Ligation Respiratory: Yes Pneumonia, COPD Currently Using CPAP: No Cardiac: Yes Atrial Fibrillation, Coronary Artery Disease, Heart Attack, High Cholesterol, Hypertension 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 Genitourinary: No Gastrointestinal: No Musculoskeletal: Yes Rheumatoid Arthritis Endocrine: No HEENT: No Cancer: No Psychosocial: No Integumentary: No Blood Disorders: No Adverse Reaction/Blood Tranf: No Family Medical History Cardiovascular disease 19 MOTHER Diabetes mellitus 19 MOTHER Hypertension 19 MOTHER No Pertinent Family Hx Physical Exam Vital Signs Vital Signs - First Documented 11/01/18 11/02/18 11/02/18 11/02/18 23:51 03:56 04:31 06:27 Temp 98.4 Pulse 120 Resp 17 B/P (MAP) 172/114 (133) Pulse Ox 98 O2 Delivery Room Air O2 Flow Rate 2.00 FiO2 21 Capillary Refill : Less Than 3 Seconds Height, Weight, BMI Height: 5'4.00" Weight: 165lbs. 0oz. 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 Norm as Tested Progress/Results/Core Measures Suspected Sepsis Recent Fever Within 48 Hours: No Infection Criteria Present: None New/Unexplained Altered Menta: No Sepsis Screen: No Definite Risk SIRS Temperature:98.4 Pulse: 118 Respiratory Rate: 17 Laboratory Tests 11/01/18 23:53: White Blood Count 10.5 Blood Pressure 174 /115 Mean: 134 Laboratory Tests 11/01/18 23:53: Creatinine 0.75, INR Comment 1.2, Platelet Count 333, Total Bilirubin 1.1H Results/Orders Lab Results Laboratory Tests Test 11/01/18 23:53 11/02/18 07:14 Range/Units White Blood Count 10.5 4.3-11.0 10^3/uL Red Blood Count 4.61 4.35-5.85 10^6/uL Hemoglobin 13.7 11.5-16.0 G/DL Hematocrit 42 35-52 % Mean Corpuscular Volume 92 80-99 FL Mean Corpuscular Hemoglobin 30 25-34 PG Mean Corpuscular Hemoglobin Concent 32 32-36 G/DL Red Cell Distribution Width 14.0 10.0-14.5 % Platelet Count 333 130-400 10^3/uL Mean Platelet Volume 10.3 7.4-10.4 FL Neutrophils (%) (Auto) 80 H 42-75 % Lymphocytes (%) (Auto) 14 12-44 % Monocytes (%) (Auto) 4 0-12 % Eosinophils (%) (Auto) 3 0-10 % Basophils (%) (Auto) 0 0-10 % Neutrophils # (Auto) 8.4 H 1.8-7.8 X 10^3 Lymphocytes # (Auto) 1.4 1.0-4.0 X 10^3 Monocytes # (Auto) 0.4 0.0-1.0 X 10^3 Eosinophils # (Auto) 0.3 0.0-0.3 10^3/uL Basophils # (Auto) 0.0 0.0-0.1 10^3/uL Prothrombin Time 14.8 H 12.2-14.7 SEC INR Comment 1.2 0.8-1.4 Activated Partial Thromboplast Time 31 24-35 SEC Sodium Level 139 135-145 MMOL/L Potassium Level 3.7 3.6-5.0 MMOL/L Chloride Level 102 98-107 MMOL/L Carbon Dioxide Level 25 21-32 MMOL/L Anion Gap 12 5-14 MMOL/L Blood Urea Nitrogen 9 7-18 MG/DL Creatinine 0.75 0.60-1.30 MG/DL Estimat Glomerular Filtration Rate > 60 BUN/Creatinine Ratio 12 Glucose Level 129 H 70-105 MG/DL Calcium Level 9.3 8.5-10.1 MG/DL Corrected Calcium 9.4 8.5-10.1 MG/DL Magnesium Level 1.8 1.8-2.4 MG/DL Total Bilirubin 1.1 H 0.1-1.0 MG/DL Aspartate Amino Transf (AST/SGOT) 27 5-34 U/L Alanine Aminotransferase (ALT/SGPT) 20 0-55 U/L Alkaline Phosphatase 142 H 40-136 U/L Myoglobin 35.5 10.0-92.0 NG/ML Troponin I < 0.028 <0.028 NG/ML C-Reactive Protein High Sensitivity 4.96 H 0.00-0.50 MG/DL B-Type Natriuretic Peptide 206.3 H <100.0 PG/ML Total Protein 7.5 6.4-8.2 GM/DL Albumin 3.9 3.2-4.5 GM/DL My Orders [facility] - JACQUELINE GONZALEZ MD Nitroglycerin 0.4 Mg Btl 25's (Nitrostat (11/01/18 23:58) Aspirin Chewable Tablet (Baby Aspirin Ch (11/01/18 23:58) Cbc With Automated Diff (11/01/18 23:57) Magnesium (11/01/18 23:57) Ekg Tracing (11/01/18 23:57) Cardiac Profile 1 (11/01/18 23:57) Comprehensive Metabolic Panel (11/01/18 23:57) Myoglobin Serum (11/01/18 23:57) Protime With Inr (11/01/18 23:57) Partial Thromboplastin Time (11/01/18 23:57) O2 (11/01/18 23:57) Monitor-Rhythm Ecg Trace Only (11/01/18 23:57) Lipid Panel (11/02/18 06:00) Aspirin Chewable Tablet (Baby Aspirin Ch (11/02/18 00:00) Saline Lock/Iv-Start (11/01/18 23:57) Chest Pa/Lat (2 View) (11/01/18 23:57) BNP (11/01/18 23:57) Hs C Reactive Protein (11/01/18 23:57) Diltiazem Injection (Cardizem Injection) (11/02/18 00:15) Ns (Ivpb) (Sodium C... W/Diltiazem Injec (11/02/18 00:15) Diltiazem Iv For Drip (Cardizem Iv For D (11/02/18 00:08) Ct Angio Chest W (11/02/18 02:09) Diltiazem Cd 24 Hr Capsule (Cardizem Cd (11/02/18 02:15) Carvedilol Tablet (Coreg Tablet) (11/02/18 02:15) Furosemide Injection (Lasix Injection) (11/02/18 03:30) Medications Given in ED Current Medications Medications Dose Ordered Sig/Kadeem Route Start Time Stop Time Status Last Admin Dose Admin Aspirin 324 mg ONCE ONCE PO 11/02/18 00:00 11/02/18 00:05 DC 11/02/18 00:04 324 MG Carvedilol 6.25 mg ONCE ONCE PO 11/02/18 02:15 11/02/18 02:16 DC 11/02/18 02:53 6.25 MG Diltiazem HCl 10 mg ONCE ONCE IVP 11/02/18 00:15 11/02/18 00:16 DC 11/02/18 00:22 10 MG Diltiazem HCl 240 mg ONCE ONCE PO 11/02/18 02:15 11/02/18 02:16 DC 11/02/18 02:53 240 MG Vital Signs/I&O 11/01/18 11/01/18 11/02/18 11/02/18 23:51 23:51 00:22 03:50 Temp 98.4 Pulse 120 118 Resp 17 B/P (MAP) 172/114 (133) 174/115 O2 Delivery Room Air Room Air 11/02/18 11/02/18 11/02/18 11/02/18 03:56 04:10 04:31 04:31 Temp 98.4 98.3 Pulse 86 88 73 Resp 17 18 B/P (MAP) 121/68 (85) 110/62 (78) Pulse Ox 98 97 97 97 O2 Delivery Room Air Room Air Room Air FiO2 21 11/02/18 11/02/18 11/02/18 04:39 05:20 06:27 Pulse 75 79 76 B/P (MAP) 111/68 (82) 110/75 (87) Pulse Ox 99 O2 Delivery Nasal Cannula O2 Flow Rate 2.00 Capillary Refill : Less Than 3 Seconds Blood Pressure Mean: 134 Progress Note : Progress Note Patient was started on a Cardizem drip which controlled her heart rate nicely. Case was discussed with Dr. Fischer. He recommended CT of the chest to further evaluate for etiology of pain. Patient was converted to oral Cardizem and Coreg. BNP was slightly elevated and there was some evidence of pulmonary edema on imaging. Lasix 40 mg IV was administered. Patient reports that she has not taken her Lasix and spironolactone for a few days. ECG Initial ECG Impression Date: Nov 01, 2018 Initial ECG Impression Time: 23:54 Initial ECG Rate: 136 Initial ECG Rhythm: A Fib/Flutter Initial ECG Impression: Atrial Fibrillation w/RVR Comment A. fib with RVR. No ST elevation or depression. Diagnostic Imaging Diagonstic Imaging: Xray Plain Films/CT/US/NM/MRI: chest Comments Chest x-ray viewed by me. Report not yet available. Diffuse interstitial markings suspicious for pulmonary edema. Diagonstic Imaging: CT Plain Films/CT/US/NM/MRI: chest Comments CT chest viewed by me and [facility] report reviewed. There are small pleural effusions bilaterally with pulmonary edema evident. No significant other findings contribute to her pain. Departure Communication (Admissions) Time/Spoke to Admitting Phy: 01:40 Dr. Neal Time/Spoke to Consulting Phy: 01:45 Dr. Fischer Impression Primary Impression: Atrial fibrillation with RVR Additional Impressions: Fluid overload Qualified Codes: E87.70 - Fluid overload, unspecified Pleuritic chest pain Noncompliance with medication regimen Disposition: ADMITTED INPATIENT Condition: Improved Admissions Decision to Admit Reason: Admit from ER (General) Decision to Admit/Date: Nov 02, 2018 Time/Decision to Admit Time: 01:40 Departure-Patient Inst. Referrals: JEROME NEAL DO (PCP/Family) Primary Care Physician JACQUELINE GONZALEZ MD Nov 02, 2018 03:09
[2018-11-02] MEDS ORDERED: FUROSEMIDE 40 MG/4 ML INJ (LASIX) IVP ONE (03:30)
--- NOTE | 2018-11-02 03:50 | NUR ---
KELLEY GARCIA admitted to room 408-1, with an admitting diagnosis of A-fib RVR and fluid overload, on 11/02/18 from ED via w/c, accompanied by Ed staff. KELLEY GARCIA introduced to surroundings, call light, bed controls, phone, TV, temperature control, lights, meal times, smoking policy, visitor policy, side rail policy, bathrooms and showers. Patient Rights given to patient in the handbook. KELLEY GARCIA verbalizes understanding that [facility] is not responsible for the loss or damage to any personal effects or valuables that are kept in the patients posession during their hospitalization. The following Patient Care Plans were discussed with the pt: Discharge Planning, altered cardiopulmonary tissue perfusion, pain, anxiety, activity intolerance, and knowledge deficit. KELLEY GARCIA verbalizes understanding of Interdisciplinary Patient Education. Patient and/or family were informed about the Rapid Response Team and its purpose.
[2018-11-02] MEDS ORDERED: RT-ALBUTEROL/IPRATROPIUM 3 ML (DUONEB) VIAL ONE (04:27)
[2018-11-02] MEDS ORDERED: RT-ALBUTEROL/IPRATROPIUM 3 ML (DUONEB) VIAL INH PRN (05:00)
--- NOTE | 2018-11-02 06:54 | Diagnostic Imaging Report ---
INDICATION: Chest pain. Comparison with 03/20/2018. FINDINGS: Cardiomegaly is again noted. There has been development of pulmonary edema with bilateral interstitial infiltrates. Small bilateral pleural effusions. IMPRESSION: Findings are consistent with development of congestive failure since previous exam. Dictated by: Dictated on workstation # [id number]
[2018-11-02] MEDS ORDERED: FLU QUADRIvalent (5+ YOA) 2018-2019 (AFLURIA) 0.5 ML IM ONE (07:00)
--- NOTE | 2018-11-02 07:10 | Diagnostic Imaging Report ---
PROCEDURE: CT angiography of the chest with contrast. TECHNIQUE: Multiple contiguous axial images were obtained through the chest after uneventful bolus administration of intravenous contrast. 2D reconstructed CTA MIP acquisitions were also performed. INDICATION: Atrial fib. Shortness of breath. Comparison with noncontrasted CT of 02/24/2017. FINDINGS: There are small bilateral pleural effusions. Diffuse interstitial infiltrate with groundglass appearance are present consistent with pulmonary edema. There is cardiomegaly. There is good opacification of the aorta and pulmonary arteries. No evidence of aortic aneurysm or dissection. Aorta is atherosclerotic. Coronary arteries are densely atherosclerotic. Pulmonary arteries are well opacified without filling defects to indicate pulmonary emboli. The left atrium is well opacified without evidence of filling defects to indicate mural thrombus. No mediastinal or hilar adenopathy of pathologic size. IMPRESSION: 1. No evidence of pulmonary emboli. No evidence of aortic dissection. 2. Bilateral pleural effusions with diffuse interstitial lung disease and cardiomegaly consistent with congestive failure. Dictated by: Dictated on workstation # [id number]
[2018-11-02 07:46] LABS: CHOLESTEROL 138 MG/DL (< 200); HDL CHOLESTEROL 40 MG/DL (40-60); TRIGLYCERIDES 111 MG/DL (<150); VLDL CHOLESTEROL 22 MG/DL (5-40)
--- NOTE | 2018-11-02 08:55 | Short Stay Summary-Hospitalist ---
TERESE NEAL DO 11/02/18 0855: History of Present Illness HPI/Chief Complaint CC: Dyspnea with chest pain HPI: This is a 73yoWF clinic patient of mine who has a multitude of medical issues including O2 dependent COPD and AF who continues to have denial about her medical issues who presented to the ER with dyspnea and chest pain after she was moving boxes when moving into her new house to [place] from [place]. She had stopped taking her Lasix thinking she did not need it but now she told me she will be more diligent in taking it. This has been an issue in the past with her stopping her meds since she "did not need them." Currently she is aware she had pulmonary edema and overall feels better but still has chest pain. She was to see Dr Hamilton her primary Radio Communication Coordinator for her regular 6 month check up but worsened to the point she presented to the ER last night. Source: patient, family Date Seen 11/02/18 Time Seen by a Provider: 09:00 Attending Physician Terese Neal DO PCP Terese Neal DO Referring Physician Date of Admission Nov 02, 2018 at 03:23 Home Medications & Allergies Home Medications Reviewed patient Home Medication Reconciliation performed by pharmacy medication reconciliations biotechnician and/or nursing. Patients Allergies have been reviewed. Allergies Allergies Coded Allergies Sulfa (Sulfonamide Antibiotics) (Verified Allergy, Unknown, 12/27/17) egg (Verified Allergy, Unknown, 12/27/17) Past Pciuinh-Pxwacg-Iowalx Hx Past Med/Social Hx: Reviewed Nursing Past Med/Soc Hx, Reviewed and Corrections made Patient Social History Marrital Status: Employed/Student: retired Alcohol Use: Occasionally Uses Recreational Drug Use: No Smoking Status: Former Smoker Former Smoker, Quit: Aug 27, 2004 Type Used: Cigarettes Recent Foreign Travel: No Contact w/other who traveled: No Recent Hopitalizations: No Recent Infectious Disease Expo: No Immunizations Up To Date Date of Pneumonia Vaccine: Sep 17, 2015 Seasonal Allergies Seasonal Allergies: No Past Medical History Surgeries: Cardiac, Coronary Stent, Gallbladder, Tubal Ligation Respiratory: COPD, Pneumonia Currently Using CPAP: No Cardiac: Atrial Fibrillation, Coronary Artery Disease, Heart Attack, High Cholesterol, Hypertension Menopausal Musculoskeletal: Rheumatoid Arthritis History of Blood Disorders: No Adverse Reaction to Blood Sousa: No Family History Cardiovascular disease 19 MOTHER Diabetes mellitus 19 MOTHER Hypertension 19 MOTHER No Pertinent Family Hx Review of Systems Constitutional: see HPI, weakness EENTM: no symptoms reported Respiratory: dyspnea on exertion, short of breath, wheezing Cardiovascular: chest pain Gastrointestinal: no symptoms reported Genitourinary: no symptoms reported Musculoskeletal: no symptoms reported Skin: no symptoms reported Psychiatric/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: No Symptoms Reported All Other Systems Reviewed Negative Unless Noted: Yes Physical Exam Physical Exam Vital Signs Vital Signs - First Documented 11/01/18 11/02/18 11/02/18 11/02/18 23:51 03:56 04:31 06:27 Temp 98.4 Pulse 120 Resp 17 B/P (MAP) 172/114 (133) Pulse Ox 98 O2 Delivery Room Air O2 Flow Rate 2.00 FiO2 21 Capillary Refill : Less Than 3 Seconds Height, Weight, BMI Height: 5'4.00" Weight: 170lbs. 0oz. 77.257278jh; 28.5 BMI Method:Stated General Appearance: No Apparent Distress, WD/WN, Chronically ill Eyes: Bilateral Eye Normal Inspection, Bilateral Eye PERRL HEENT: PERRL/EOMI, Normal ENT Inspection, Pharynx Normal Neck: Full Range of Motion, Normal Inspection, Non Tender, Supple, Carotid Bruit Respiratory: Chest Non Tender, No Accessory Muscle Use, No Respiratory Distress , Crackles, Decreased Breath Sounds, Wheezing Cardiovascular: No Edema, No Gallop, No JVD, No Murmur, Normal Peripheral Pulses, Irregularly Irregular, Tachycardia Gastrointestinal: Normal Bowel Sounds, No Organomegaly, No Pulsatile Mass, Non Tender, Soft Back: Normal Inspection, No CVA Tenderness, No Vertebral Tenderness Extremity: Normal Capillary Refill, Normal Inspection, Normal Range of Motion, Non Tender, No Calf Tenderness, No Pedal Edema Neurologic/Psychiatric: Alert, Oriented x3, No Motor/Sensory Deficits, Normal Mood/Affect Skin: Normal Color, Warm/Dry Lymphatic: No Adenopathy Results Results/Procedures Labs Laboratory Tests 11/01/18 23:53 Patient resulted labs reviewed. Short Stay Diagnosis Discharge Diagnosis-Short Stay Admission Diagnosis Assessment: AF w/RVR Volume overload Non-compliance with meds Denial about medical issues COPD O2 dependency at night RA sees Dr Gary HTN HLP Hypothyroidism Plan: IV diuresis Appreciate Cardiology management Final Discharge Diagnosis Assessment: AF w/RVR Volume overload Non-compliance with meds Denial about medical issues COPD O2 dependency at night RA sees Dr Gary HTN HLP Hypothyroidism Plan: IV diuresis Appreciate Cardiology management Conclusion Plan Cardiology recs are appreciated Counseled patient on compliance with meds Diagnosis/Problems Diagnosis/Problems (1) Atrial fibrillation with rapid ventricular response Status: Acute (2) Fluid overload Status: Acute Qualifiers: Qualified Codes: E87.70 - Fluid overload, unspecified (3) Noncompliance with medication regimen Status: Chronic (4) Pleuritic chest pain Status: Acute (5) Hypoxia Status: Chronic (6) EMPHYSEMA, UNSPECIFIED Status: Chronic Clinical Quality Measures AMI/AHF: ASA po Prior to arrival: No DVT/VTE Risk/Contraindication: Risk Factor Score Per Nursin RFS Level Per Nursing on Admit: 3=High CRUZ ALBARADO MEDICAL STUDENT 11/02/18 1015: History of Present Illness HPI/Chief Complaint this is a 73 year old female with Hx of prior [place], CHF, CAD, HTN who was admitted from the ED last night for chest pain and SOB. Pt states she started having some shortness of breath 2 days ago followed by chest "pain." Pt states the pain was worth with exertion and got better with rest. Pt states the pain did not radiate anywhere. Pt states she had not taken her medication for a couple days leading up to the episode of chest pain because because she was tired of having to take all of her medication. Pt states that this chest pain did not feel like her prior episodes so that worried her enough to be seen. Pt states that she did not have nausea or vomiting with the chest pain and did not have any diaphoresis. Pt states she did not take any NTG or ASA during the episode of CP Source: patient Past Ibkluul-Asyxsv-Dmcxbt Hx Family History Cardiovascular disease 19 MOTHER Diabetes mellitus 19 MOTHER Hypertension 19 MOTHER Review of Systems Constitutional: No chills, No fever Respiratory: No cough; short of breath Cardiovascular: chest pain; No palpitations Gastrointestinal: No abdominal pain, No diarrhea, No nausea, No vomiting Musculoskeletal: no symptoms reported Skin: no symptoms reported Psychiatric/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: No Symptoms Reported Physical Exam Physical Exam General Appearance: No Apparent Distress, WD/WN Eyes: Bilateral Eye EOMI HEENT: PERRL/EOMI Neck: Full Range of Motion, Supple Respiratory: Lungs Clear, Normal Breath Sounds, No Respiratory Distress Cardiovascular: Regular Rate, Rhythm, No Murmur Gastrointestinal: Normal Bowel Sounds, Non Tender, Soft; No Distended Neurologic/Psychiatric: Alert, Oriented x3 Skin: Normal Color, Warm/Dry Short Stay Diagnosis Conclusion Plan Assessment: chest pain vs [place] vs ACS - negative troponin dyspnea Plan: cardiology consult TERESE NEAL DO Nov 02, 2018 08:55 CRUZ ALBARADO MEDICAL STUDENT Nov 02, 2018 10:15
[2018-11-02] MEDS ORDERED: APIXABAN 5 MG (ELIQUIS) TABLET PO SCH ×2 (09:00→21:00)
[2018-11-02] MEDS ORDERED: ASPIRIN 81 MG CHEW (CHILDREN'S ASA) PO SCH (09:00)
[2018-11-02] MEDS ORDERED: CEFDINIR 300 MG (OMNICEF) CAP PO SCH (09:00)
--- NOTE | 2018-11-02 09:19 | Consultation-Cardiology ---
HPI-Cardiology Cardiology Consultation: Date of Consultation 11/02/18 Date of Admission 11-02-18 Attending Physician Terese Verde DO Admitting Physician Terese Verde DO Consulting Physician Ayden Fischer MD Primary Business Process Analyst: Dr. Hamilton HPI: Chief Complaint: Dyspnea Chest pain Ms. Lee is a 73 year old female admitted to [facility] from the ED. She reports she has recently been moving from [place] to [place] and has been under increased stress. She states she has NOT been taking her medications, and is unsure as to how long it has been since she last took her medications as Rx. She reports she see Dr. Hamilton at [facility] in [place], [place] and was d/t see him today. She reports increasing exertional dyspnea over the course of the last few weeks. She reports c/o palpitations yesterday. She reports ACW pain which would come and go. Describes it as a sharp, squeezing pain which would last for a few minutes and then resolve. No r/t activity. She denies any cough , fever or chills. Denies any LE swelling. She reports the chest pain was worse with palpation. She currently denies any CP at this time. She reports she has not been compliant with her Eliquis either, missing several doses. Review of Systems-Cardiology Review of Systems Constitutional: No chills, No fever; malaise Eyes: No vision change Ears/Nose/Throat: No epistaxis, No recent hearing loss Respiratory: As described under HPI Cardiovascular: As described under HPI Gastrointestinal: No constipation, No diarrhea, No nausea, No vomiting Genitourinary: No dysuria, No hematuria : No Musculoskeletal: As describe under HPI Skin: No rash, No ulcerations Psychiatric/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: No seizure, No focal weakness Hematologic: No bleeding abnormalities CZO-Txiwdp-Ggtrqx Hx Patient Social History Alcohol Use: Occasionally Uses Recreational Drug Use: No Smoking Status: Former Smoker Former smoker/When Quit: Oct 11, 2004 Type Used: Cigarettes Recent Foreign Travel: No Recent Infectious Disease Expo: No Hospitalization with Isolation: Denies Immunizations Up To Date Date of Pneumonia Vaccine: Sep 17, 2015 Past Medical History PMH As described under Assessment. Family Medical History Family Medical History: She reports her mother had coronary artery disease and hypertension. Family History: Cardiovascular disease 19 MOTHER Diabetes mellitus 19 MOTHER Hypertension 19 MOTHER Allergies and Home Medications Allergies Coded Allergies: Sulfa (Sulfonamide Antibiotics) (Verified Allergy, Unknown, 12/27/17) egg (Verified Allergy, Unknown, 12/27/17) Home Medications Acetaminophen 650 Mg Tablet.er, 1,300 MG PO HS, (Reported) TAKES 2 (650MG) TABLETS Apixaban 5 Mg Tablet, 5 MG PO BID, (Reported) LAST FILLED #60 09-22-18 Budesonide/Formoterol Fumarate 10.2 Gm Hfa.aer.ad, 2 PUFF IH BID PRN for SHORTNESS OF BREATH, (Reported) Carvedilol 6.25 Mg Tablet, 6.25 MG PO BID, (Reported) LAST FILLED #60 09-21-18 Cefdinir 300 Mg Capsule, 300 MG PO BID, (Reported) 10 DAY SUPPLY FILLED 10-28-18 Cholecalciferol (Vitamin D3) 500 Unit/5 Ml Liquid, 5 ML PO DAILY, (Reported) Citalopram Hydrobromide 20 Mg Tablet, 20 MG PO HS, (Reported) LAST FILLED #90 06-27-18 Diltiazem HCl 120 Mg Cap.er.24h, 120 MG PO DAILY, (Reported) Flaxseed Oil 1,000 Mg Capsule, 1,000 MG PO DAILY, (Reported) Pnv No.122/Iron/Folic Acid 1 Each Tablet, 1 TAB PO DAILY, (Reported) [Instaflex] , 1 TAB PO DAILY, (Reported) Physical Exam-Cardiology Physical Exam Vital Signs/I&O Capillary Refill : Less Than 3 Seconds Constitutional: AAO x 3 HEENT: hearing is well preserved, oral hygience is good Neck: No carotid bruit; carotid pulses are 2 + bilaterally Respiratory: No accessory muscle use, No respiratory distress; chest expansion is symmetric, chest is bilaterally symmetric, lungs clear to auscultation Cardiovascular: irregularly irregular; No JVD; S1 and S2 Gastrointestinal: No tender; soft, round, audible bowel sounds Rectal: deferred Extremities: no lower extremity edema bilateral Neurologic/Psychiatric: grossly intact, power is 5/5 both on sides Skin: No rash, No ulcerations Data Review Labs Radiology NAME: KELLEY LEE [facility] REC#: [id number] PT STATUS: ADM Richi : 1945 PHYSICIAN: JACQUELINE GONZALEZ MD ADMIT DATE: 11/02/18 Signed Date of Exam: 11/02/18 CT ANGIO CHEST W PROCEDURE: CT angiography of the chest with contrast. TECHNIQUE: Multiple contiguous axial images were obtained through the chest after uneventful bolus administration of intravenous contrast. 2D reconstructed CTA MIP acquisitions were also performed. INDICATION: Atrial fib. Shortness of breath. Comparison with noncontrasted CT of 02/24/2017. FINDINGS: There are small bilateral pleural effusions. Diffuse interstitial infiltrate with groundglass appearance are present consistent with pulmonary edema. There is cardiomegaly. There is good opacification of the aorta and pulmonary arteries. No evidence of aortic aneurysm or dissection. Aorta is atherosclerotic. Coronary arteries are densely atherosclerotic. Pulmonary arteries are well opacified without filling defects to indicate pulmonary emboli. The left atrium is well opacified without evidence of filling defects to indicate mural thrombus. No mediastinal or hilar adenopathy of pathologic size. IMPRESSION: 1. No evidence of pulmonary emboli. No evidence of aortic dissection. 2. Bilateral pleural effusions with diffuse interstitial lung disease and cardiomegaly consistent with congestive failure. Dictated by: Dictated on workstation # [id number] Dict: 11/02/18 0704 Trans: 11/02/18818 Interpreted by: STIVEN MCPHERSON MD Electronically signed by: STIVEN MCPHERSON MD 11/02/18818 ECG Impression ECG Initial ECG Impression: Atrial Fibrillation A/P-Cardiology Assessment/Admission Diagnosis Dyspnea - likely multi-factorial - acute on chronic diastolic CHF, acute exacerbation of COPD Chest pain of undetermined etiology - no evidence of ACS Acute on chronic diastolic CHF Chronic a-fib with RVR - rate improved Non-compliance with medications Suspected COPD, being followed by Dr Lin Quit tobacco use in 2003 after having smoked for a number of years CAD, h/o cor stenting x 4 on different occasion; last cor stenting at [facility] by Dr Hamilton more than 3 years ago, detail unavailable despite request to [facility] - has refused further coronary work up in the past Echo of 08/28/16: LVEF 50%, mild to mod MR, diastolic dysfunction of LV Hyperlipidemia, managed by Dr Verde DM II, managed by Dr Verde Hypertension, controlled OAC with Eliquis Hyperthyroidism being managed by Dr Verde Discussion and Recomendations Chest pain of undetermined etiology - no evidence of ACS - wishes to f/u with her primary electrical designer drafter Dr. Hamilton Dyspnea - multi-factorial - Acute on chronic diastolic CHF, acute exacerbation of COPD Non-compliance with medications - we have discussed the rationale of medications and tx along with the deleterious effects of non-compliance - verbalizes understanding Advise compliance with OAC for stroke prophylaxis Clinical Quality Measures AMI/AHF: ASA po Prior to arrival: No DVT/VTE Risk/Contraindication: Risk Factor Score Per Nursin RFS Level Per Nursing on Admit: 3=High SHY NOEL Nov 02, 2018 09:19
[2018-11-02] MEDS ORDERED: DILT120C53 PO (09:20)
[2018-11-02] MEDS ORDERED: CARV6.252 PO (09:20)
[2018-11-02] MEDS ORDERED: CEFD300C3 PO (09:20)
[2018-11-02] MEDS ORDERED: CHOL500L3 PO (09:31)
[2018-11-02] MEDS ORDERED: ACET-2055 PO (09:36)
--- NOTE | 2018-11-02 09:36 | NUR ---
WENT OVER THE EXT MED HX WITH THE PATIENT, SHE VERIFIED HOW SHE TAKES THEM TO THE BEST OF HER ABILITY. SHE IS PAST DUE FOR REFILL ON A FEW OF THEM, SHE ADMITS SHE DOES NOT TAKE THEN REGULARLY SOMETIMES. SHE MIGHT TAKE ONE IN THE MORNING BUT MISS THE EVENING DOSE. SHE STATES SHE IS NOT TAKING ASPIRIN ANYMORE BECAUSE SHE IS TAKING ANOTHER OTC MED FOR ARTHRITIS THAT SHE THOUGHT WAS SIMILAR. SHE DOES NOT KNOW THE SPECIFIC NAME OF IT BUT STATES IT IS FROM [facility] AND IT STATES ARTHRITIS PAIN RELIEF.
[2018-11-02] MEDS: RT-ALBUTEROL/IPRATROPIUM 3 ML (DUONEB) VIAL INH SCH ×2 (11:43→14:45)
--- NOTE | 2018-11-02 12:40 | Consultation-Cardiology ---
HPI-Cardiology Cardiology Consultation: Date of Consultation 11/02/18 Time Seen by a Provider: 09:30 Date of Admission Attending Physician Terese Verde DO Admitting Physician Terese Verde DO Consulting Physician MK GRACE MD, MA, FACP, FACC, [facility] [place], CCDS Primary physician: Dr Verde Primary productivity engineer: Dr Hamilton HPI: Chief Complaint: CC: Shortness of breath and chest discomfort HPI: Ms. Lee is a 73 year old female admitted to [facility] from the ED. She reports she has recently been moving from [place] to [place] and has been under increased stress. She states she has NOT been taking her medications, and is unsure as to how long it has been since she last took her medications as Rx. She reports she see Dr. Hamilton at [facility] in [place], [place] and was d/t see him today. She reports increasing exertional dyspnea over the course of the last few weeks. She reports c/o palpitations yesterday. She reports ACW pain which would come and go. Describes it as a sharp, squeezing pain which would last for a few minutes and then resolve. No r/t activity. She denies any cough , fever or chills. Denies any LE swelling. She reports the chest pain was worse with palpation. She currently denies any CP at this time. She reports she has not been compliant with her Eliquis either, missing several doses. Review of Systems-Cardiology Review of Systems Constitutional: No chills, No fever; malaise Eyes: No vision change Ears/Nose/Throat: No epistaxis, No recent hearing loss Respiratory: As described under HPI Cardiovascular: As described under HPI Gastrointestinal: No constipation, No diarrhea, No nausea, No vomiting Genitourinary: No dysuria, No hematuria : No Musculoskeletal: As describe under HPI Skin: No rash, No ulcerations Psychiatric/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: No seizure, No focal weakness Hematologic: No bleeding abnormalities All Other Systems Reviewed Negative Unless Noted: Yes [id number] Hx Patient Social History Marrital Status: Employed/Student: retired Alcohol Use: Occasionally Uses Recreational Drug Use: No Smoking Status: Former Smoker Former smoker/When Quit: Oct 11, 2004 Type Used: Cigarettes Recent Foreign Travel: No Recent Infectious Disease Expo: No Hospitalization with Isolation: Denies Immunizations Up To Date Date of Pneumonia Vaccine: Sep 17, 2015 Past Medical History PMH As described under Assessment. Family Medical History Family Medical History: She reports her mother had coronary artery disease and hypertension. Family History: Cardiovascular disease 19 MOTHER Diabetes mellitus 19 MOTHER Hypertension 19 MOTHER Allergies and Home Medications Allergies Coded Allergies: Sulfa (Sulfonamide Antibiotics) (Verified Allergy, Unknown, 12/27/17) egg (Verified Allergy, Unknown, 12/27/17) Home Medications Acetaminophen 650 Mg Tablet.er, 1,300 MG PO HS, (Reported) TAKES 2 (650MG) TABLETS Apixaban 5 Mg Tablet, 5 MG PO BID, (Reported) LAST FILLED #60 09-22-18 Budesonide/Formoterol Fumarate 10.2 Gm Hfa.aer.ad, 2 PUFF IH BID PRN for SHORTNESS OF BREATH, (Reported) Carvedilol 6.25 Mg Tablet, 6.25 MG PO BID, (Reported) LAST FILLED #60 18 Cefdinir 300 Mg Capsule, 300 MG PO BID, (Reported) 10 DAY SUPPLY FILLED 10-28-18 Cholecalciferol (Vitamin D3) 500 Unit/5 Ml Liquid, 5 ML PO DAILY, (Reported) Citalopram Hydrobromide 20 Mg Tablet, 20 MG PO HS, (Reported) LAST FILLED #90 06-27-18 Diltiazem HCl 120 Mg Cap.er.24h, 120 MG PO DAILY, (Reported) Flaxseed Oil 1,000 Mg Capsule, 1,000 MG PO DAILY, (Reported) Pnv No.122/Iron/Folic Acid 1 Each Tablet, 1 TAB PO DAILY, (Reported) [Instaflex] , 1 TAB PO DAILY, (Reported) Patient Home Medication List Home Medication List Reviewed: Yes Physical Exam-Cardiology Physical Exam Vital Signs/I&O 11/02/18 11/02/18 11/02/18 11/02/18 03:50 03:56 04:10 04:31 Temp 98.4 98.3 Pulse 86 88 Resp 17 18 B/P (MAP) 121/68 (85) 110/62 (78) Pulse Ox 98 97 97 O2 Delivery Room Air Room Air Room Air Room Air 11/02/18 11/02/18 11/02/18 11/02/18 04:31 04:39 05:20 06:27 Pulse 73 75 79 76 B/P (MAP) 111/68 (82) 110/75 (87) Pulse Ox 97 99 O2 Delivery Nasal Cannula O2 Flow Rate 2.00 FiO2 21 11/02/18 11/02/18 11/02/18 07:00 08:00 08:51 Temp 96.4 Pulse 67 70 Resp 16 B/P (MAP) 122/66 (84) Pulse Ox 95 95 O2 Delivery Nasal Cannula Room Air O2 Flow Rate 2.00 Capillary Refill : Less Than 3 Seconds Constitutional: AAO x 3 HEENT: hearing is well preserved, oral hygience is good Neck: No carotid bruit; carotid pulses are 2 + bilaterally Respiratory: No accessory muscle use, No respiratory distress; chest expansion is symmetric, chest is bilaterally symmetric, lungs clear to auscultation Cardiovascular: irregularly irregular; No JVD; S1 and S2 Gastrointestinal: No tender; soft, round, audible bowel sounds Rectal: deferred Extremities: no lower extremity edema bilateral Neurologic/Psychiatric: grossly intact, power is 5/5 both on sides Skin: No rash, No ulcerations Data Review Labs Laboratory Tests 11/01/18 23:53: White Blood Count 10.5, Red Blood Count 4.61, Hemoglobin 13.7, Hematocrit 42, Mean Corpuscular Volume 92, Mean Corpuscular Hemoglobin 30, Mean Corpuscular Hemoglobin Concent 32, Red Cell Distribution Width 14.0, Platelet Count 333, Mean Platelet Volume 10.3, Neutrophils (%) (Auto) 80H, Lymphocytes (%) (Auto) 14 , Monocytes (%) (Auto) 4, Eosinophils (%) (Auto) 3, Basophils (%) (Auto) 0, Neutrophils # (Auto) 8.4H, Lymphocytes # (Auto) 1.4, Monocytes # (Auto) 0.4, Eosinophils # (Auto) 0.3, Basophils # (Auto) 0.0, Prothrombin Time 14.8H, INR Comment 1.2, Activated Partial Thromboplast Time 31, Sodium Level 139, Potassium Level 3.7, Chloride Level 102, Carbon Dioxide Level 25, Anion Gap 12, Blood Urea Nitrogen 9, Creatinine 0.75, Estimat Glomerular Filtration Rate > 60 , BUN/Creatinine Ratio 12, Glucose Level 129H, Calcium Level 9.3, Corrected Calcium 9.4, Magnesium Level 1.8, Total Bilirubin 1.1H, Aspartate Amino Transf ( AST/SGOT) 27, Alanine Aminotransferase (ALT/SGPT) 20, Alkaline Phosphatase 142H , Myoglobin 35.5, Troponin I < 0.028, C-Reactive Protein High Sensitivity 4.96H , B-Type Natriuretic Peptide 206.3H, Total Protein 7.5, Albumin 3.9 11/02/18 07:14: Triglycerides Level 111, Cholesterol Level 138, LDL Cholesterol Direct 83, VLDL Cholesterol 22, HDL Cholesterol 40 A/P-Cardiology Assessment/Admission Diagnosis Shortness of breath - likely multi-factorial - acute on chronic diastolic CHF, acute exacerbation of COPD Chest pain of undetermined etiology - no evidence of ACS Acute on chronic diastolic CHF Chronic a-fib with RVR - rate improved Non-compliance with medications Suspected COPD, being followed by Dr Lin Quit tobacco use in 2003 after having smoked for a number of years CAD, h/o cor stenting x 4 on different occasion; last cor stenting at [facility] by Dr Hamilton more than 3 years ago, detail unavailable despite request to [facility] - has refused further coronary work up in the past Echo of 08/28/16: LVEF 50%, mild to mod MR, diastolic dysfunction of LV Hyperlipidemia, managed by Dr Verde DM II, managed by Dr Verde Hypertension, controlled OAC with Eliquis Hyperthyroidism being managed by Dr Verde Discussion and Recomendations Chest pain of undetermined etiology - no evidence of ACS - wishes to f/u with her primary productivity engineer Dr. Hamilton Dyspnea - multi-factorial - Acute on chronic diastolic CHF, acute exacerbation of COPD Non-compliance with medications - we have discussed the rationale of medications and tx along with the deleterious effects of non-compliance - verbalizes understanding Advise compliance with OAC for stroke prophylaxis Clinical Quality Measures AMI/AHF: ASA po Prior to arrival: No DVT/VTE Risk/Contraindication: Risk Factor Score Per Nursin RFS Level Per Nursing on Admit: 3=High MK GRACE MD FACP FAC CCDS Nov 02, 2018 12:40
--- NOTE | 2018-11-02 14:41 | NUR ---
CALLED DR NEAL. SHE WILL PUT IN PENDING DISCHARGE ORDERS. THE PATIENT MAY GO HOME IF IT IS OKAY WITH DR SANJAY GRACE PAGECarla.
--- NOTE | 2018-11-02 15:05 | NUR ---
DR GRACE CALLED. IT OKAY FOR THE PATIENT TO BE DISCHARGED
[2018-11-02] MEDS ORDERED: RT-ADVAIR HFA 115/21 MCG PER PUFF IH PRN (20:00)
[2018-11-02] MEDS ORDERED: ACETAMINOPHEN 325 MG TABLET PO SCH (21:00)
[2018-11-02] MEDS ORDERED: CARVEDILOL 6.25 MG (COREG) TAB PO SCH (21:00)
[2018-11-02] MEDS ORDERED: NON-FORMULARY MEDICATION 1 EA EA (Cefdinir 300 MG) PO SCH (21:00)
[2018-11-03] MEDS ORDERED: PRENATAL VITAMIN 1 EA TAB PO SCH (07:00)
[2018-11-03] MEDS ORDERED: DILTIAZEM 120 MG (CARDIZEM CD) CAP PO SCH (09:00)
[2018-11-03] MEDS ORDERED: INSTAFLEX PO SCH (09:00)
[2018-11-03] MEDS ORDERED: VITAMIN D3 400 UNIT/ML (D VI SOL DROPS) 50 ML PO SCH (09:00)
[2018-11-03] MEDS ORDERED: NON-FORMULARY MEDICATION 1 EA EA (Flaxseed Oil 1,000 MG) PO SCH (09:00)
--- OUTSIDE RECORDS SUMMARY | 2018-11-04 12:04 | XMS REPORT | Clinical Summary ---
Author Author leticia roland [place] [address] Phone Unavailable Allergies, Adverse Reactions, Alerts Allergy Name Reaction Description Start Date Severity Status Provider No Known Allergies Terese Verde Conditions or Problems Problem Name Problem Code Onset Date Status Entry Date Provider Comment Standard Description Annotate RHEUMATOID ARTHRITIS 714.0 Active Terese Verde RHEUMATOID ARTHRITIS CORONARY ATHEROSCLEROSIS, [place] VESSEL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 Terese Verde CORONARY ATHEROSCLEROSIS OF [place] CORONARY ARTERY DEPRESSION 311 Active Terese Verde DEPRESSIVE DISORDER, NOT ELSEWHERE CLASSIFIED HYPERCHOLESTEROLEMIA 272.0 Active Terese Verde PURE HYPERCHOLESTEROLEMIA HYPERTENSION 401.1 Active Terese Verde ESSENTIAL HYPERTENSION, BENIGN CHRONIC PAIN V15.89 Active Terese Verde OTHER SPECIFIED PERSONAL HISTORY PRESENTING HAZARDS TO HEALTH ATRIAL FIBRILLATION 427.31 Active Terese Verde ATRIAL FIBRILLATION AORTIC VALVE DISORDERS 424.1 Active Terese Verde AORTIC VALVE DISORDERS CORONARY ATHEROSCLEROSIS, [place] VESSEL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 Terese Verde CORONARY ATHEROSCLEROSIS OF [place] CORONARY ARTERY Medication List Medication Instructions Start Date Stop Date Generic Name NDC Status Provider Patient Instruction CITALOPRAM HYDROBROMIDE 20 MG TABS 1 PO dialy CITALOPRAM HYDROBROMIDE 57704211558 Active Terese Verde MELOXICAM TABS 1 PO daily prn MELOXICAM TABS 06809150915 Active Terese Verde FOLIC ACID 800 MCG TABS 1 PO DAILY FOLIC ACID 21054386626 Active Terese Verde HYDROCODONE-ACETAMINOPHEN 7.5-500 MG TABS 1 PO 6 HRS PRN HYDROCODONE-ACETAMINOPHEN 54188265481 Active Terese Verde HYDROXYZINE HCL 10 MG TABS 1 PO daily prn itching HYDROXYZINE HCL 18578308989 Active Terese Verde PROAIR HFA 108 (90 BASE) MCG/ACT AERS 2 puff Q4 hrs prn wheezing and shortness of breath. ALBUTEROL SULFATE 94437356894 Active Terese Verde TYLENOL PM EXTRA STRENGTH 500-25 MG TABS 2 PO QHS prn DIPHENHYDRAMINE- APAP (SLEEP) 77919794878 Active Terese Verde LISINOPRIL 10 MG TABS 1 PO daily LISINOPRIL 94885636562 Active Terese Verde CARVEDILOL 25 MG TABS 1 PO BID CARVEDILOL 54941108328 Active Terese Verde PLAVIX 75 MG TABS 1 PO daily CLOPIDOGREL BISULFATE 00566746513 Active Terese Verde LIPITOR 20 MG TAB 1 PO QD ATORVASTATIN CALCIUM 69419803924 Active Terese Verde METHOTREXATE 2.5 MG TAB Take 4 tabs weekly METHOTREXATE SODIUM 04580028792 Active Terese Verde BP MULTINATAL PLUS CHEW 1 po daily W/O A VIT-FE FUM-FA CHEW 75688676974 Active Terese Verde Vital Signs Date Name Value Unit Range Description blood pressure, diastolic 70 mm[Hg] BP arechiga blood pressure, systolic 130 mm[Hg] BP sys pulse rate E&M 80 /min Heart rate respiratory rate E&M 14 /min Resp rate weight E&M 160 [lb_av] Weight Measured blood pressure, diastolic 80 mm[Hg] BP arechiga blood pressure, systolic 132 mm[Hg] BP sys pulse rate E&M 60 /min Heart rate respiratory rate E&M 14 /min Resp rate temperature E&M 98.6 [degF] Body temperature weight E&M 155 [lb_av] Weight Measured Diagnostic Results Date Name Value Unit Range Description Clinical Lists Update: CBC, ESR, CMP, TSH DR GAR[facility] - Chemistry glucose, plasma fasting 96 mg/dL albumin, serum 3.9 g/dL alkaline phosphatase, serum 91 U/L urea nitrogen, blood 12 mg/dL calcium, serum 9.8 mg/dL chloride, serum 102 mmol/L carbon dioxide, venous blood 28 mmol/L creatinine, serum 0.7 mg/dL thyroxine, serum, free 0.8 ng/dL thyroid stimulating hormone, serum 1.49 u[iU]/mL potassium, serum 4.5 mmol/L protein, total, serum 7.0 g/dL aspartate aminotransferase (SGOT), serum 37 U/L alanine aminotransferase (SGPT), serum 34 U/L bilirubin, serum, total 1.7 mg/dL sodium, serum 138.0 mmol/L anion gap, serum 13 Clinical Lists Update: CBC, ESR, CMP, TSH DR [facility] - Hematology leukocyte count, blood 7.9 10*3/mm3 hematocrit, blood 39.0 % erythrocyte sedimentation rate 23.0 mm/h red blood cell distribution width 15.6 % lymphocytes as percent of blood leukocytes 20.9 % mean corpuscular volume, RBC 98.8 fL hemoglobin, blood 13.0 g/dL platelet count 258 10*3/mm3 erythrocyte (RBC) count 4.03 10*6/mm3 Clinical Lists Update: CBC,CMP,FLP,TSH,Free T4,esr DR [facility] - Chemistry calcium, serum 9.3 mg/dL chloride, serum 103 mmol/L anion gap, serum 13 alanine aminotransferase (SGPT), serum 35 U/L carbon dioxide, venous blood 28 mmol/L aspartate aminotransferase (SGOT), serum 40 U/L sodium, serum 139 mmol/L urea nitrogen, blood 19 mg/dL thyroid stimulating hormone, serum 1.45 u[iU]/mL alkaline phosphatase, serum 99 U/L glucose, plasma fasting 93 mg/dL albumin, serum 3.6 g/dL thyroxine, serum, free 0.9 ng/dL potassium, serum 4.8 mmol/L creatinine, serum 0.6 mg/dL protein, total, serum 6.7 g/dL bilirubin, serum, total 1.1 mg/dL Clinical Lists Update: CBC,CMP,FLP,TSH,Free T4,esr DR [facility] - Hematology platelet count 261 10*3/mm3 mean corpuscular volume, RBC 86.6 fL red blood cell distribution width 20.1 % erythrocyte sedimentation rate 26.0 mm/h hematocrit, blood 36.3 % hemoglobin, blood 11.7 g/dL leukocyte count, blood 8.3 10*3/mm3 erythrocyte (RBC) count 4.19 10*6/mm3 Clinical Lists Update: Lipids - Chemistry cholesterol, serum 130 mg/dL HDL cholesterol, serum 47 mg/dL cholesterol/HDL ratio, serum 2.8 triglyceride, serum, fasting 123 mg/dL LDL cholesterol, serum 58 mg/dL
--- OUTSIDE RECORDS SUMMARY | 2018-11-04 12:04 | XMS REPORT | Clinical Summary ---
Author Author leticia roland [place] [address] Phone Unavailable Allergies, Adverse Reactions, Alerts Allergy Name Reaction Description Start Date Severity Status Provider No Known Allergies Terese Verde Conditions or Problems Problem Name Problem Code Onset Date Status Entry Date Provider Comment Standard Description Annotate RHEUMATOID ARTHRITIS 714.0 Active Terese Verde RHEUMATOID ARTHRITIS CORONARY ATHEROSCLEROSIS, [place] VESSEL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 Terese Verde CORONARY ATHEROSCLEROSIS OF [place] CORONARY ARTERY DEPRESSION 311 Active Terese Verde DEPRESSIVE DISORDER, NOT ELSEWHERE CLASSIFIED HYPERCHOLESTEROLEMIA 272.0 Active Terese Verde PURE HYPERCHOLESTEROLEMIA HYPERTENSION 401.1 Active Terese Vered ESSENTIAL HYPERTENSION, BENIGN CHRONIC PAIN V15.89 Active Terese Verde OTHER SPECIFIED PERSONAL HISTORY PRESENTING HAZARDS TO HEALTH ATRIAL FIBRILLATION 427.31 Active Terese Verde ATRIAL FIBRILLATION AORTIC VALVE DISORDERS 424.1 Active Terese Verde AORTIC VALVE DISORDERS CORONARY ATHEROSCLEROSIS, [place] VESSEL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 Terese Verde CORONARY ATHEROSCLEROSIS OF [place] CORONARY ARTERY Medication List Medication Instructions Start Date Stop Date Generic Name NDC Status Provider Patient Instruction CITALOPRAM HYDROBROMIDE 20 MG TABS 1 PO dialy CITALOPRAM HYDROBROMIDE 37118685648 Active Terese Verde FOLIC ACID 800 MCG TABS 1 PO DAILY FOLIC ACID 61237437017 Active Terese Verde HYDROXYZINE HCL 10 MG TABS 1 PO daily prn itching HYDROXYZINE HCL 08818994821 Active Terese Verde PROAIR HFA 108 (90 BASE) MCG/ACT AERS 2 puff Q4 hrs prn wheezing and shortness of breath. ALBUTEROL SULFATE 91345949585 Active Terese Verde TYLENOL PM EXTRA STRENGTH 500-25 MG TABS 2 PO QHS prn DIPHENHYDRAMINE- APAP (SLEEP) 45390099495 Active Terese Verde LISINOPRIL 10 MG TABS 1 PO daily LISINOPRIL 00074441873 Active Terese Verde CARVEDILOL 25 MG TABS 1 PO BID CARVEDILOL 00149611993 Active Terese Verde PLAVIX 75 MG TABS 1 PO daily CLOPIDOGREL BISULFATE 62076926187 Active Terese Verde LIPITOR 20 MG TAB 1 PO QD ATORVASTATIN CALCIUM 52910460703 Active Terese Verde BP MULTINATAL PLUS CHEW 1 po daily W/O A VIT-FE FUM-FA CHEW 01314296695 Active Terese Verde METHOTREXATE 2.5 MG TAB Take 3 tabs weekly METHOTREXATE SODIUM 47714567583 Active Terese Verde Vital Signs Date Name Value Unit Range Description blood pressure, diastolic 76 mm[Hg] BP arechiga blood pressure, systolic 130 mm[Hg] BP sys pulse rate E&M 60 /min Heart rate respiratory rate E&M 14 /min Resp rate blood pressure, diastolic 70 mm[Hg] BP arechiga [...] - Chemistry glucose, plasma fasting 96 mg/dL thyroid stimulating hormone, serum 1.49 u[iU]/mL anion gap, serum 13 alkaline phosphatase, serum 91 U/L sodium, serum 138.0 mmol/L urea nitrogen, blood 12 mg/dL bilirubin, serum, total 1.7 mg/dL calcium, serum 9.8 mg/dL alanine aminotransferase (SGPT), serum 34 U/L chloride, serum 102 mmol/L aspartate aminotransferase (SGOT), serum 37 U/L carbon dioxide, venous blood 28 mmol/L protein, total, serum 7.0 g/dL creatinine, serum 0.7 mg/dL potassium, serum 4.5 mmol/L thyroxine, serum, free 0.8 ng/dL albumin, serum 3.9 g/dL Clinical Lists Update: CBC, ESR, CMP, TSH DR [facility] - Hematology erythrocyte sedimentation rate 23.0 mm/h hematocrit, blood 39.0 % hemoglobin, blood 13.0 g/dL platelet count 258 10*3/mm3 erythrocyte (RBC) count 4.03 10*6/mm3 leukocyte count, blood 7.9 10*3/mm3 mean corpuscular volume, RBC 98.8 fL lymphocytes as percent of blood leukocytes 20.9 % red blood cell distribution width 15.6 % Clinical Lists Update: CBC,CMP,ESR DR [facility] - Chemistry sodium, serum 138 mmol/L potassium, serum 4.8 mmol/L anion gap, serum 12 alkaline phosphatase, serum 101 U/L glucose, plasma fasting 107 mg/dL albumin, serum 3.7 g/dL urea nitrogen, blood 12 mg/dL protein, total, serum 6.8 g/dL creatinine, serum 0.6 mg/dL aspartate aminotransferase (SGOT), serum 30 U/L carbon dioxide, venous blood 131 mmol/L alanine aminotransferase (SGPT), serum 26 U/L chloride, serum 103 mmol/L bilirubin, serum, total 1.6 mg/dL calcium, serum 9.5 mg/dL Clinical Lists Update: CBC,CMP,ESR DR [facility] - Hematology hemoglobin, blood 13.5 g/dL leukocyte count, blood 9.7 10*3/mm3 hematocrit, blood 42.4 % mean corpuscular volume, RBC 98.3 fL platelet count 258 10*3/mm3 erythrocyte sedimentation rate 39 mm/h red blood cell distribution width 15.9 % erythrocyte (RBC) count 4.32 10*6/mm3 Clinical Lists Update: CBC,CMP,FLP,TSH,Free T4,esr DR [facility] - Chemistry glucose, plasma fasting 93 mg/dL anion gap, serum 13 sodium, serum 139 mmol/L potassium, serum 4.8 mmol/L creatinine, serum 0.6 mg/dL carbon dioxide, venous blood 28 mmol/L chloride, serum 103 mmol/L calcium, serum 9.3 mg/dL urea nitrogen, blood 19 mg/dL Clinical Lists Update: FLP,TSH - Chemistry LDL cholesterol, serum 57 mg/dL HDL cholesterol, serum 47.0 mg/dL thyroid stimulating hormone, serum 2.06 u[iU]/mL cholesterol, serum 131 mg/dL triglyceride, serum, fasting 134 mg/dL cholesterol/HDL ratio, serum 2.8 Clinical Lists Update: Lipids - Chemistry LDL cholesterol, serum 58 mg/dL cholesterol, serum 130 mg/dL triglyceride, serum, fasting 123 mg/dL HDL cholesterol, serum 47 mg/dL cholesterol/HDL ratio, serum 2.8
--- OUTSIDE RECORDS SUMMARY | 2018-11-04 12:04 | XMS REPORT | Clinical Summary ---
Author Author leticia roland [place] [address] Phone Unavailable Allergies, Adverse Reactions, Alerts Allergy Name Reaction Description Start Date Severity Status Provider No Known Allergies Terese Verde Conditions or Problems Problem Name Problem Code Onset Date Status Entry Date Provider Comment Standard Description Annotate RHEUMATOID ARTHRITIS 714.0 Active Terese Verde RHEUMATOID ARTHRITIS CORONARY ATHEROSCLEROSIS, [place] VESSEL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 Terese Verde CORONARY ATHEROSCLEROSIS OF [place] CORONARY ARTERY DEPRESSION 311 Active Terese Verde DEPRESSIVE DISORDER, NOT ELSEWHERE CLASSIFIED HYPERCHOLESTEROLEMIA 272.0 Active Terese Verde PURE HYPERCHOLESTEROLEMIA HYPERTENSION 401.1 Active Terese Verde ESSENTIAL HYPERTENSION, BENIGN CHRONIC PAIN V15.89 Active Terese Verde OTHER SPECIFIED PERSONAL HISTORY PRESENTING HAZARDS TO HEALTH ATRIAL FIBRILLATION 427.31 Active Terese Verde ATRIAL FIBRILLATION AORTIC VALVE DISORDERS 424.1 Active Terese Verde AORTIC VALVE DISORDERS CORONARY ATHEROSCLEROSIS, [place] VESSEL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 Terese Verde CORONARY ATHEROSCLEROSIS OF [place] CORONARY ARTERY Medication List Medication Instructions Start Date Stop Date Generic Name NDC Status Provider Patient Instruction CITALOPRAM HYDROBROMIDE 20 MG TABS 1 PO dialy CITALOPRAM HYDROBROMIDE 30808642904 Active Terese Verde MELOXICAM TABS 1 PO daily prn MELOXICAM TABS 13115940998 Active Terese Verde FOLIC ACID 800 MCG TABS 1 PO DAILY FOLIC ACID 12162635762 Active Terese Verde HYDROCODONE-ACETAMINOPHEN 7.5-500 MG TABS 1 PO 6 HRS PRN HYDROCODONE-ACETAMINOPHEN 36492282506 Active Terese Verde HYDROXYZINE HCL 10 MG TABS 1 PO daily prn itching HYDROXYZINE HCL 11401692251 Active Terese Verde PROAIR HFA 108 (90 BASE) MCG/ACT AERS 2 puff Q4 hrs prn wheezing and shortness of breath. ALBUTEROL SULFATE 66864519646 Active Terese Verde TYLENOL PM EXTRA STRENGTH 500-25 MG TABS 2 PO QHS prn DIPHENHYDRAMINE- APAP (SLEEP) 52873008750 Active Terese Verde LISINOPRIL 10 MG TABS 1 PO daily LISINOPRIL 44484615207 Active Terese Verde CARVEDILOL 25 MG TABS 1 PO BID CARVEDILOL 14431664313 Active Terese Verde PLAVIX 75 MG TABS 1 PO daily CLOPIDOGREL BISULFATE 63996733918 Active Terese Verde LIPITOR 20 MG TAB 1 PO QD ATORVASTATIN CALCIUM 45996772394 Active Terese Verde METHOTREXATE 2.5 MG TAB Take 4 tabs weekly METHOTREXATE SODIUM 88144253197 Active Terese Verde BP MULTINATAL PLUS CHEW 1 po daily W/O A VIT-FE FUM-FA CHEW 65482269915 Active Terese Verde Vital Signs Date Name [...]
--- OUTSIDE RECORDS SUMMARY | 2018-11-04 12:04 | XMS REPORT | Clinical Summary ---
Author Author leticia roland [place] [address] Phone Unavailable Allergies, Adverse Reactions, Alerts Allergy Name Reaction Description Start Date Severity Status Provider No Known Allergies Terese Verde Conditions or Problems Problem Name Problem Code Onset Date Status Entry Date Provider Comment Standard Description Annotate RHEUMATOID ARTHRITIS 714.0 Active Terese Verde RHEUMATOID ARTHRITIS CORONARY ATHEROSCLEROSIS, [place] VESSEL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 Terese Verde CORONARY ATHEROSCLEROSIS OF [place] CORONARY ARTERY DEPRESSION 311 Active Terese Verde DEPRESSIVE DISORDER, NOT ELSEWHERE CLASSIFIED HYPERCHOLESTEROLEMIA 272.0 Active Terese Verde PURE HYPERCHOLESTEROLEMIA HYPERTENSION 401.1 Active Terese Verde ESSENTIAL HYPERTENSION, BENIGN CHRONIC PAIN V15.89 Active Terese Verde OTHER SPECIFIED PERSONAL HISTORY PRESENTING HAZARDS TO HEALTH ATRIAL FIBRILLATION 427.31 Active Terese Verde ATRIAL FIBRILLATION AORTIC VALVE DISORDERS 424.1 Active Terese Verde AORTIC VALVE DISORDERS CORONARY ATHEROSCLEROSIS, [place] VESSEL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 Terese Verde CORONARY ATHEROSCLEROSIS OF [place] CORONARY ARTERY Medication List Medication Instructions Start Date Stop Date Generic Name NDC Status Provider Patient Instruction CITALOPRAM HYDROBROMIDE 20 MG TABS 1 PO dialy CITALOPRAM HYDROBROMIDE 48087337655 Active Terese Verde MELOXICAM TABS 1 PO daily prn MELOXICAM TABS 06564591306 Active Terese Verde FOLIC ACID 800 MCG TABS 1 PO DAILY FOLIC ACID 13784284567 Active Terese Verde HYDROCODONE-ACETAMINOPHEN 7.5-500 MG TABS 1 PO 6 HRS PRN HYDROCODONE-ACETAMINOPHEN 05972964514 Active Terese Verde HYDROXYZINE HCL 10 MG TABS 1 PO daily prn itching HYDROXYZINE HCL 60838588836 Active Terese Verde PROAIR HFA 108 (90 BASE) MCG/ACT AERS 2 puff Q4 hrs prn wheezing and shortness of breath. ALBUTEROL SULFATE 82639871314 Active Terese Verde TYLENOL PM EXTRA STRENGTH 500-25 MG TABS 2 PO QHS prn DIPHENHYDRAMINE- APAP (SLEEP) 89375509196 Active Terese Verde LISINOPRIL 10 MG TABS 1 PO daily LISINOPRIL 38464761628 Active Terese Verde CARVEDILOL 25 MG TABS 1 PO BID CARVEDILOL 40772532112 Active Terese Verde PLAVIX 75 MG TABS 1 PO daily CLOPIDOGREL BISULFATE 47209163690 Active Terese Verde LIPITOR 20 MG TAB 1 PO QD ATORVASTATIN CALCIUM 49767999088 Active Terese Verde METHOTREXATE 2.5 MG TAB Take 4 tabs weekly METHOTREXATE SODIUM 79907641377 Active Terese Verde BP MULTINATAL PLUS CHEW 1 po daily W/O A VIT-FE FUM-FA CHEW 03099659832 Active Terese Verde Vital Signs Date Name [...]
--- OUTSIDE RECORDS SUMMARY | 2018-11-04 12:05 | XMS REPORT | Clinical Summary ---
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 Terese Verde CORONARY ATHEROSCLEROSIS OF [place] CORONARY ARTERY DEPRESSION 311 Active Terese Verde DEPRESSIVE DISORDER, NOT ELSEWHERE CLASSIFIED HYPERCHOLESTEROLEMIA 272.0 Active Terese Verde PURE HYPERCHOLESTEROLEMIA HYPERTENSION 401.1 Active Terese Verde ESSENTIAL HYPERTENSION, BENIGN CHRONIC PAIN V15.89 Active Terese Verde OTHER SPECIFIED PERSONAL HISTORY PRESENTING HAZARDS TO HEALTH ATRIAL FIBRILLATION 427.31 Active Terese Verde ATRIAL FIBRILLATION AORTIC VALVE DISORDERS 424.1 Active Terese Verde AORTIC VALVE DISORDERS CORONARY ATHEROSCLEROSIS, [place] VESSEL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 Terese Verde CORONARY ATHEROSCLEROSIS OF [place] CORONARY ARTERY Medication List Medication Instructions Start Date Stop Date Generic Name NDC Status Provider Patient Instruction CITALOPRAM HYDROBROMIDE 20 MG TABS 1 PO dialy CITALOPRAM HYDROBROMIDE 84533432631 Active Terese Verde MELOXICAM TABS 1 PO daily prn MELOXICAM TABS 29578029421 Active Terese Verde FOLIC ACID 800 MCG TABS 1 PO DAILY FOLIC ACID 25646281069 Active Terese Verde HYDROCODONE-ACETAMINOPHEN 7.5-500 MG TABS 1 PO 6 HRS PRN HYDROCODONE-ACETAMINOPHEN 38692202745 Active Terese Verde HYDROXYZINE HCL 10 MG TABS 1 PO daily prn itching HYDROXYZINE HCL 53370196197 Active Terese Verde PROAIR HFA 108 (90 BASE) MCG/ACT AERS 2 puff Q4 hrs prn wheezing and shortness of breath. ALBUTEROL SULFATE 95877053929 Active Terese Verde TYLENOL PM EXTRA STRENGTH 500-25 MG TABS 2 PO QHS prn DIPHENHYDRAMINE- APAP (SLEEP) 59476337327 Active Terese Verde LISINOPRIL 10 MG TABS 1 PO daily LISINOPRIL 09083473471 Active Terese Verde CARVEDILOL 25 MG TABS 1 PO BID CARVEDILOL 22020838524 Active Terese Verde PLAVIX 75 MG TABS 1 PO daily CLOPIDOGREL BISULFATE 13217900806 Active Terese Verde LIPITOR 20 MG TAB 1 PO QD ATORVASTATIN CALCIUM 46497688879 Active Terese Verde METHOTREXATE 2.5 MG TAB Take 4 tabs weekly METHOTREXATE SODIUM 99120740443 Active Terese Verde BP MULTINATAL PLUS CHEW 1 po daily W/O A VIT-FE FUM-FA CHEW 97208480233 Active Terese Verde Vital Signs Date Name [...]
--- OUTSIDE RECORDS SUMMARY | 2018-11-04 12:05 | XMS REPORT | Clinical Summary ---
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 Terese Verde CORONARY ATHEROSCLEROSIS OF [place] CORONARY ARTERY DEPRESSION 311 Active Terese Verde DEPRESSIVE DISORDER, NOT ELSEWHERE CLASSIFIED HYPERCHOLESTEROLEMIA 272.0 Active Terese Verde PURE HYPERCHOLESTEROLEMIA HYPERTENSION 401.1 Active Terese Verde ESSENTIAL HYPERTENSION, BENIGN CHRONIC PAIN V15.89 Active Terese Verde OTHER SPECIFIED PERSONAL HISTORY PRESENTING HAZARDS TO HEALTH ATRIAL FIBRILLATION 427.31 Active Terese Verde ATRIAL FIBRILLATION AORTIC VALVE DISORDERS 424.1 Active Terese Verde AORTIC VALVE DISORDERS CORONARY ATHEROSCLEROSIS, [place]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 Terese Verde CORONARY ATHEROSCLEROSIS OF [place] CORONARY ARTERY Medication List Medication Instructions Start Date Stop Date Generic Name NDC Status Provider Patient Instruction CITALOPRAM HYDROBROMIDE 20 MG TABS 1 PO dialy CITALOPRAM HYDROBROMIDE 14906157741 Active Terese Verde MELOXICAM TABS 1 PO daily prn MELOXICAM TABS 07797107328 Active Terese Verde FOLIC ACID 800 MCG TABS 1 PO DAILY FOLIC ACID 04550931942 Active Terese Verde HYDROCODONE-ACETAMINOPHEN 7.5-500 MG TABS 1 PO 6 HRS PRN HYDROCODONE-ACETAMINOPHEN 22008227965 Active Terese Verde HYDROXYZINE HCL 10 MG TABS 1 PO daily prn itching HYDROXYZINE HCL 95393291292 Active Terese Verde PROAIR HFA 108 (90 BASE) MCG/ACT AERS 2 puff Q4 hrs prn wheezing and shortness of breath. ALBUTEROL SULFATE 15735564446 Active Terese Verde TYLENOL PM EXTRA STRENGTH 500-25 MG TABS 2 PO QHS prn DIPHENHYDRAMINE- APAP (SLEEP) 21779213869 Active Terese Verde LISINOPRIL 10 MG TABS 1 PO daily LISINOPRIL 68754840122 Active Terese Verde CARVEDILOL 25 MG TABS 1 PO BID CARVEDILOL 61768997132 Active Terese Verde PLAVIX 75 MG TABS 1 PO daily CLOPIDOGREL BISULFATE 41357026651 Active Terese Verde LIPITOR 20 MG TAB 1 PO QD ATORVASTATIN CALCIUM 48801227060 Active Terese Verde METHOTREXATE 2.5 MG TAB Take 4 tabs weekly METHOTREXATE SODIUM 86214431757 Active Terese Verde BP MULTINATAL PLUS CHEW 1 po daily W/O A VIT-FE FUM-FA CHEW 69393782663 Active Terese Verde Vital Signs Date Name [...]
--- OUTSIDE RECORDS SUMMARY | 2018-11-04 12:05 | XMS REPORT | Clinical Summary ---
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 Terese Verde CORONARY ATHEROSCLEROSIS OF [place] CORONARY ARTERY DEPRESSION 311 Active Terese Verde DEPRESSIVE DISORDER, NOT ELSEWHERE CLASSIFIED HYPERCHOLESTEROLEMIA 272.0 Active Terese Verde PURE HYPERCHOLESTEROLEMIA HYPERTENSION 401.1 Active Terese Verde ESSENTIAL HYPERTENSION, [place]EN[place] CHRONIC PAIN V15.89 Active Terese Verde OTHER SPECIFIED PERSONAL HISTORY PRESENTING HAZARDS TO HEALTH ATRIAL FIBRILLATION 427.31 Active Terese Verde ATRIAL FIBRILLATION AORTIC VALVE DISORDERS 424.1 Active Terese Verde AORTIC VALVE DISORDERS CORONARY ATHEROSCLEROSIS, [place]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 Terese Verde CORONARY ATHEROSCLEROSIS OF [place] CORONARY ARTERY Medication List Medication Instructions Start Date Stop Date Generic Name NDC Status Provider Patient Instruction CITALOPRAM HYDROBROMIDE 20 MG TABS 1 PO dialy CITALOPRAM HYDROBROMIDE 33802780584 Active Terese Verde MELOXICAM TABS 1 PO daily prn MELOXICAM TABS 81462685206 Active Terese Verde FOLIC ACID 800 MCG TABS 1 PO DAILY FOLIC ACID 49960433559 Active Terese Verde HYDROCODONE-ACETAMINOPHEN 7.5-500 MG TABS 1 PO 6 HRS PRN HYDROCODONE-ACETAMINOPHEN 57271487433 Active Terese Verde HYDROXYZINE HCL 10 MG TABS 1 PO daily prn itching HYDROXYZINE HCL 59980894979 Active Terese Verde PROAIR HFA 108 (90 BASE) MCG/ACT AERS 2 puff Q4 hrs prn wheezing and shortness of breath. ALBUTEROL SULFATE 82074507051 Active Terese Verde TYLENOL PM EXTRA STRENGTH 500-25 MG TABS 2 PO QHS prn DIPHENHYDRAMINE- APAP (SLEEP) 29330805467 Active Terese Verde LISINOPRIL 10 MG TABS 1 PO daily LISINOPRIL 26167387491 Active Terese Verde CARVEDILOL 25 MG TABS 1 PO BID CARVEDILOL 81757738625 Active Terese Verde PLAVIX 75 MG TABS 1 PO daily CLOPIDOGREL BISULFATE 94212191037 Active Terese Verde LIPITOR 20 MG TAB 1 PO QD ATORVASTATIN CALCIUM 17735090695 Active Terese Verde METHOTREXATE 2.5 MG TAB Take 4 tabs weekly METHOTREXATE SODIUM 14995193652 Active Terese Verde BP MULTINATAL PLUS CHEW 1 po daily W/O A VIT-FE FUM-FA CHEW 81038710788 Active Terese Verde Vital Signs Date Name [...]
== END 2018-11-02 14:50 | disposition home or self-care (01) ==
LOC: EDUNIT# 23:43 → ER 23:46 → 4TH 23:47 → UNDOADMOB 11-02 03:23 → 4TH 11-02 03:23 → UNDODISOB 11-02 16:00
PROVIDERS: ADMIT Internal Medicine; ATTEND Internal Medicine
DX: I48.0 Paroxysmal atrial fibrillation (principal); I11.0 Hypertensive heart disease with heart failure; I50.33 Acute on chronic diastolic (congestive) heart failure; R07.1 Chest pain on breathing; I25.10 Atherosclerotic heart disease of native coronary artery without angina pectoris; I34.0 Nonrheumatic mitral (valve) insufficiency; E78.5 Hyperlipidemia, unspecified; E11.9 Type 2 diabetes mellitus without complications; J43.9 Emphysema, unspecified; M06.9 Rheumatoid arthritis, unspecified; E03.9 Hypothyroidism, unspecified; R09.02 Hypoxemia; I25.2 Old myocardial infarction; Z95.5 Presence of coronary angioplasty implant and graft; Z91.14 Patient's other noncompliance with medication regimen; Z99.81 Dependence on supplemental oxygen; Z87.891 Personal history of nicotine dependence; Z79.01 Long term (current) use of anticoagulants; Z79.82 Long term (current) use of aspirin; Z79.899 Other long term (current) drug therapy
CPT/HCPCS: 36415; 71046; 71275; 80053; 80061; 83735; 83874; 83880; 84484; 85025; 85610; 85730; 86141; 93005; 93041; 94640; 96365; 96366; 96375

== ENCOUNTER → 2019-02-22 | Outpatient (CLI) | payer MEDICARE, OTHER ==
[~2019-02-22] MED LIST changes: +ACET-2055 PO; +CHOL500L3 PO; +DILT120C53 PO
[2019-02-22 11:08] LABS: HEMOGLOBIN 12.2 G/DL (11.5-16.0); MEAN PLATELET VOLUME 9.8 FL (7.4-10.4); WHITE BLOOD COUNT 9.5 10^3/uL (4.3-11.0)
[2019-02-22 11:28] LABS: ALANINE AMINOTRANSFERASE 20 U/L (0-55); ALBUMIN 3.7 GM/DL (3.2-4.5); ALKALINE PHOSPHATASE 106 U/L (40-136); BILIRUBIN,TOTAL 1.7 MG/DL (0.1-1.0); BUN/CREATININE RATIO 14; CARBON DIOXIDE 29 MMOL/L (21-32); CHLORIDE 102 MMOL/L (98-107); GFR ESTIMATED > 60; GLUCOSE 116 MG/DL (70-105); POTASSIUM 4.5 MMOL/L (3.6-5.0); SODIUM 140 MMOL/L (135-145); TOTAL PROTEIN 6.9 GM/DL (6.4-8.2)
--- NOTE | 2019-02-22 11:34 | Diagnostic Imaging Report ---
INDICATION: Cough. TIME OF EXAM: 10:53 AM COMPARISON: Correlation made with prior study from 11/02/2018. FINDINGS: The heart is enlarged. Bilateral perihilar and bibasilar infiltrates are noted suggestive of CHF. There is no significant effusion or pneumothorax. IMPRESSION: Bilateral infiltrates and cardiomegaly suggestive of CHF. Dictated by: Dictated on workstation # [id number]
== END ==
LOC: RAD 10:30
PROVIDERS: ATTEND Internal Medicine
DX: I51.7 Cardiomegaly (principal); I50.9 Heart failure, unspecified; D64.9 Anemia, unspecified; I48.91 Unspecified atrial fibrillation; R91.8 Other nonspecific abnormal finding of lung field; R05 Cough
CPT/HCPCS: 36415; 71045; 80053; 82728; 83540; 83880; 85027; 85652

== ENCOUNTER 2019-10-06 21:06 | Inpatient (IN) | payer MEDICARE, OTHER ==
[~2019-10-06] VITALS: Ht 162.5 cm; Wt 80.6 kg
[2019-10-06 21:32] LABS: BASOPHILS % (AUTO) 0 % (0-10); EOSINOPHILS % (AUTO) 0 % (0-10); HEMATOCRIT 42 % (35-52); HEMOGLOBIN 13.5 G/DL (11.5-16.0); LYMPHOCYTES % (AUTO) 6 % (12-44); MEAN CORPUSCULAR HEMOGLOBIN 29 PG (25-34); MEAN CORPUSCULAR HGB CONC 32 G/DL (32-36); MEAN CORPUSCULAR VOLUME 89 FL (80-99); MONOCYTES # (AUTO) 0.8 X 10^3 (0.0-1.0); MONOCYTES % (AUTO) 4 % (0-12); NEUTROPHILS # (AUTO) 15.5 X 10^3 (1.8-7.8); NEUTROPHILS % (AUTO) 89 % (42-75); PLATELET COUNT 363 10^3/uL (130-400); RED CELL DISTRIBUTION WIDTH 15.7 % (10.0-14.5); WHITE BLOOD COUNT 17.4 10^3/uL (4.3-11.0)
[2019-10-06] MEDS ORDERED: DILTIAZEM IV FOR DRIP 125 MG in NS (IVPB) 100 ML IV SCH (21:45)
[2019-10-06] MEDS ORDERED: DILTIAZEM 25 MG/5 ML INJ (CARDIZEM) VIAL IVP ONE (21:45)
[2019-10-06] MEDS ORDERED: RT-ALBUTEROL/IPRATROPIUM 3 ML (DUONEB) VIAL INH ONE ×2 (21:45→22:15)
[2019-10-06 21:57] LABS: ALBUMIN 3.8 GM/DL (3.2-4.5); BILIRUBIN,TOTAL 2.9 MG/DL (0.1-1.0); CALCIUM 9.5 MG/DL (8.5-10.1); CREATININE SERUM 0.98 MG/DL (0.60-1.30); MAGNESIUM 1.5 MG/DL (1.6-2.4); POTASSIUM 3.9 MMOL/L (3.6-5.0); TOTAL PROTEIN 7.4 GM/DL (6.4-8.2)
[2019-10-06 22:05] LABS: LYMPHOCYTES % (MANUAL) 10 %; MONOCYTES % (MANUAL) 5 %; NEUTROPHILS % (MANUAL) 85 %; NUCLEATED RED BLOOD CELLS 1; RBC MORPH NORMAL
[2019-10-06 22:07] LABS: INR 1.2 (0.8-1.4); PROTHROMBIN TIME PATIENT 15.5 SEC (12.2-14.7)
--- NOTE | 2019-10-06 22:10 | Diagnostic Imaging Report ---
INDICATION: Cough and congestion with shortness of air. COMPARISON: 02/22/2019. EXAMINATION: Single view of the chest was obtained. FINDINGS: The heart is enlarged, perhaps greater than on prior. There are at least small pleural effusions, greater right than left. There is vascular congestion and presumed pulmonary edema. The pattern suggests congestive failure. IMPRESSION: Failure pattern as described. Dictated by: Dictated on workstation # [id number]
[2019-10-06] MEDS ORDERED: RT-ALBUTEROL SULF 2.5 MG/3 ML PRE-MIX VIAL INH STA (22:15)
[2019-10-06] MEDS ORDERED: APIXABAN 5 MG (ELIQUIS) TABLET PO ONE (23:15)
[2019-10-06] MEDS ORDERED: AMIODARONE INJECTION 450 MG in D5W IV SOLUTION (EXCEL) 250 ML IV SCH (23:15)
[2019-10-06] MEDS ORDERED: PIPERACILLIN SODIUM/TAZOBACTAM 4.5 GM in NS (IVPB) 100 ML IV ONE (23:15)
[2019-10-06] MEDS ORDERED: AMIODARONE FOR BOLUS 150 MG in D5W 100 ML IVPB 100 ML IV ONE (23:15)
[2019-10-06] MEDS ORDERED: methylPREDNISolone 40 MG/ML (Solu-MEDROL) VIAL IV ONE (23:15)
--- NOTE | 2019-10-06 23:20 | ED Cardiac General ---
History of Present Illness General Chief Complaint: Respiratory Problems Stated Complaint: DEHYDRATED/WEAKNESS Nursing Triage Note: went to urgent care earlier today for increased SOB, was given an antibiotic but pharmacy did not get it delivered, pt continues to have increased SOB Source: patient, family Exam Limitations: no limitations History of Present Illness Date Seen by Provider: Oct 06, 2019 Time Seen by Provider: 21:35 Initial Comments This 74-year-old woman presents to the emergency room accompanied by her family with complaints of shortness of air and wheezing. She reportedly went to urgent care today to be assessed. They state she was told she is dehydrated. Re portedly an antibiotic was prescribed but did not get delivered to the house from the pharmacy. She's been feeling poorly for a few days but really noticed the wheezing and shortness of breath today. Patient previously used oxygen only at night but in recent days has been using it continuously she has atrial fibrillation and takes Eliquis for stroke prophylaxis. Heart rate is in the 150s and 160s during assessment. Despite being short of breath and having COPD, she did not use any of her nebulizer treatments today. Allergies and Home Medications Allergies Coded Allergies: Sulfa (Sulfonamide Antibiotics) (Verified Allergy, Unknown, 12/27/17) egg (Verified Allergy, Unknown, 12/27/17) Home Medications Acetaminophen 650 Mg Tablet.er, 1,300 MG PO HS, (Reported) TAKES 2 (650MG) TABLETS Apixaban 5 Mg Tablet, 5 MG PO BID, (Reported) LAST FILLED #60 09-22-18 Budesonide/Formoterol Fumarate 10.2 Gm Hfa.aer.ad, 2 PUFF IH BID PRN for SHORTNESS OF BREATH, (Reported) Carvedilol 6.25 Mg Tablet, 6.25 MG PO BID, (Reported) LAST FILLED #60 09-21-18 Cefdinir 300 Mg Capsule, 300 MG PO BID, (Reported) 10 DAY SUPPLY FILLED 10-28-18 Cholecalciferol (Vitamin D3) 500 Unit/5 Ml Liquid, 5 ML PO DAILY, (Reported) Citalopram Hydrobromide 20 Mg Tablet, 20 MG PO HS, (Reported) LAST FILLED #90 06-27-18 Diltiazem HCl 120 Mg Cap.er.24h, 120 MG PO DAILY, (Reported) Flaxseed Oil 1,000 Mg Capsule, 1,000 MG PO DAILY, (Reported) Pnv No.122/Iron/Folic Acid 1 Each Tablet, 1 TAB PO DAILY, (Reported) [Instaflex] , 1 TAB PO DAILY, (Reported) Patient Home Medication List Home Medication List Reviewed: Yes Review of Systems Review of Systems Constitutional: no symptoms reported EENTM: No Symptoms Reported Respiratory: See HPI Cardiovascular: See HPI Gastrointestinal: No Symptoms Reported Genitourinary: No Symptoms Reported Musculoskeletal: no symptoms reported Skin: no symptoms reported Psychiatric/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: No Symptoms Reported Endocrine: No Symptoms Reported Hematologic/Lymphatic: No Symptoms Reported Past Vasgosm-Jxgscp-Emgjbh Hx Past Med/Social Hx: Reviewed and Corrections made Patient Social History Alcohol Use: Denies Use Recreational Drug Use: No Type Used: Cigarettes Former Smoker, Quit: Aug 27, 2004 2nd Hand Smoke Exposure: No Recent Foreign Travel: No Contact w/Someone Who Travel: No Recent Infectious Disease Expo: No Recent Hopitalizations: No Immunizations Up To Date Date of Pneumonia Vaccine: Sep 17, 2015 Seasonal Allergies Seasonal Allergies: No Past Medical History Surgeries: Yes (CARDIAC CATH X 3--STENTS X 4) Cardiac, Coronary Stent, Gallbladder, Tubal Ligation Respiratory: Yes Pneumonia, COPD (chronic oxygen supplementation by nasal cannula) Currently Using CPAP: No Cardiac: Yes Atrial Fibrillation, Coronary Artery Disease, Heart Attack, High Cholesterol, Hypertension 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 Genitourinary: No Gastrointestinal: No Musculoskeletal: Yes Rheumatoid Arthritis Endocrine: No HEENT: No Cancer: No Psychosocial: No Integumentary: No Blood Disorders: No Adverse Reaction/Blood Tranf: No Family Medical History Reviewed Nursing Family Hx Cardiovascular disease 19 MOTHER Diabetes mellitus 19 MOTHER Hypertension 19 MOTHER No Pertinent Family Hx Physical Exam Vital Signs Vital Signs - First Documented 10/06/19 10/06/19 21:15 21:17 Temp 36.9 Pulse 146 Resp 39 B/P (MAP) 136/103 (114) Pulse Ox 98 O2 Delivery Nasal Cannula O2 Flow Rate 3.00 Capillary Refill : Less Than 3 Seconds Height, Weight, BMI Height: 5'4.00" Weight: 170lbs. 0oz. 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 Norm as Tested Skin: Normal Color, Warm/Dry Focused Exam Lactate Level 10/06/19 21:20: Lactic Acid Level 1.47 Lactic Acid Level Laboratory Tests Test 10/06/19 21:20 Lactic Acid Level 1.47 MMOL/L (0.50-2.00) Progress/Results/Core Measures Results/Orders Lab Results Laboratory Tests Test 10/06/19 21:20 Range/Units White Blood Count 17.4 H 4.3-11.0 10^3/uL Red Blood Count 4.71 4.35-5.85 10^6/uL Hemoglobin 13.5 11.5-16.0 G/DL Hematocrit 42 35-52 % Mean Corpuscular Volume 89 80-99 FL Mean Corpuscular Hemoglobin 29 25-34 PG Mean Corpuscular Hemoglobin Concent 32 32-36 G/DL Red Cell Distribution Width 15.7 H 10.0-14.5 % Platelet Count 363 130-400 10^3/uL Mean Platelet Volume 10.0 7.4-10.4 FL Neutrophils (%) (Auto) 89 H 42-75 % Lymphocytes (%) (Auto) 6 L 12-44 % Monocytes (%) (Auto) 4 0-12 % Eosinophils (%) (Auto) 0 0-10 % Basophils (%) (Auto) 0 0-10 % Neutrophils # (Auto) 15.5 H 1.8-7.8 X 10^3 Lymphocytes # (Auto) 1.0 1.0-4.0 X 10^3 Monocytes # (Auto) 0.8 0.0-1.0 X 10^3 Eosinophils # (Auto) 0.0 0.0-0.3 10^3/uL Basophils # (Auto) 0.0 0.0-0.1 10^3/uL Neutrophils % (Manual) 85 % Lymphocytes % (Manual) 10 % Monocytes % (Manual) 5 % Nucleated Red Blood Cells 1 Blood Morphology Comment NORMAL Prothrombin Time 15.5 H 12.2-14.7 SEC INR Comment 1.2 0.8-1.4 Activated Partial Thromboplast Time 29 24-35 SEC Sodium Level 137 135-145 MMOL/L Potassium Level 3.9 3.6-5.0 MMOL/L Chloride Level 99 98-107 MMOL/L Carbon Dioxide Level 23 21-32 MMOL/L Anion Gap 15 H 5-14 MMOL/L Blood Urea Nitrogen 14 7-18 MG/DL Creatinine 0.98 0.60-1.30 MG/DL Estimat Glomerular Filtration Rate 55 BUN/Creatinine Ratio 14 Glucose Level 136 H 70-105 MG/DL Lactic Acid Level 1.47 0.50-2.00 MMOL/L Calcium Level 9.5 8.5-10.1 MG/DL Corrected Calcium 9.7 8.5-10.1 MG/DL Magnesium Level 1.5 L 1.6-2.4 MG/DL Total Bilirubin 2.9 H 0.1-1.0 MG/DL Aspartate Amino Transf (AST/SGOT) 22 5-34 U/L Alanine Aminotransferase (ALT/SGPT) 22 0-55 U/L Alkaline Phosphatase 119 40-136 U/L Myoglobin 64.1 10.0-92.0 NG/ML Troponin I < 0.028 <0.028 NG/ML C-Reactive Protein High Sensitivity 10.07 H 0.00-0.50 MG/DL B-Type Natriuretic Peptide 432.7 H <100.0 PG/ML Total Protein 7.4 6.4-8.2 GM/DL Albumin 3.8 3.2-4.5 GM/DL Thyroid Stimulating Hormone (TSH) 2.46 0.35-4.94 UIU/ML Free Thyroxine 0.94 0.70-1.48 NG/DL My Orders Orders - JACQUELINE GONZALEZ MD Cbc With Automated Diff (10/06/19 21:20) Magnesium (10/06/19 21:20) Chest 1 View, Ap/Pa Only (10/06/19 21:20) Ekg Tracing (10/06/19 21:20) Comprehensive Metabolic Panel (10/06/19 21:20) Myoglobin Serum (10/06/19 21:20) Protime With Inr (10/06/19 21:20) Partial Thromboplastin Time (10/06/19 21:20) O2 (10/06/19 21:20) Monitor-Rhythm Ecg Trace Only (10/06/19 21:20) Ed Iv/Invasive Line Start (10/06/19 21:20) Troponin I (10/06/19 21:20) Manual Differential (10/06/19 21:20) Diltiazem Injection (Cardizem Injection) (10/06/19 21:45) Ns (Ivpb) (Sodium C... W/Diltiazem Iv Fo (10/06/19 21:45) BNP (10/06/19 21:45) Hs C Reactive Protein (10/06/19 21:45) Albuterol/Ipra Inhalation Soln (Duoneb I (10/06/19 21:45) Svn Small Volume Nebulizer (10/06/19 21:45) Albuterol Pre-Mix Nebs (Rt) (Proventil (10/06/19 22:15) Albuterol/Ipra Inhalation Soln (Duoneb I (10/06/19 22:15) Svn Small Volume Nebulizer (10/06/19 22:15) Svn Small Volume Nebulizer (10/06/19 22:15) Blood Culture (10/06/19 22:31) Sputum Culture (10/06/19 22:31) Urinalysis (10/06/19 22:31) Urine Culture (10/06/19 22:31) Vital Signs Adult Sepsis Patie Q15M (10/06/19 22:31) O2 (10/06/19 22:31) Remove Rings In Anticipation O (10/06/19 22:31) Lactic Acid Analyzer (10/06/19 22:31) Piperacillin Sodium/Tazobactam (Zosyn Vi (10/06/19 23:15) Methylprednisolone Sod Succ (Solu-Medrol (10/06/19 23:15) Thyroid Stimulating Hormone (10/06/19 23:08) Free T4 (Free Thyroxine) (10/06/19 23:08) Apixaban Tablet (Eliquis Tablet) (10/06/19 23:15) Amiodarone For Bolus (Cordarone Bolus) (10/06/19 23:15) Amiodarone Injection (Cordarone Injectio (10/06/19 23:15) Medications Given in ED Current Medications Medications Dose Ordered Sig/Kadeem Route Start Time Stop Time Status Last Admin Dose Admin Albuterol/ Ipratropium 3 ml ONCE ONCE INH 10/06/19 21:45 10/06/19 21:47 DC 10/06/19 22:22 3 ML Amiodarone HCl 150 mg/Dextrose 103 ml @ 600 mls/hr ONCE ONCE IV 10/06/19 23:15 10/06/19 23:25 DC 10/07/19 02:03 600 MLS/HR Apixaban 5 mg ONCE ONCE PO 10/06/19 23:15 10/06/19 23:16 DC 10/06/19 23:32 5 MG Diltiazem HCl 10 mg ONCE ONCE IVP 10/06/19 21:45 10/06/19 21:46 DC 10/06/19 22:03 10 MG Methylprednisolone Sodium Succinate 40 mg ONCE ONCE IV 10/06/19 23:15 10/06/19 23:16 DC 10/06/19 23:32 40 MG Piperacillin Sod/ Tazobactam Sod 4.5 gm/Sodium Chloride 100 ml @ 200 mls/hr ONCE ONCE IV 10/06/19 23:15 10/06/19 23:44 DC 10/06/19 23:32 200 MLS/HR Vital Signs/I&O 10/06/19 10/06/19 10/06/19 21:15 21:17 22:06 Temp 36.9 Pulse 146 123 Resp 39 B/P (MAP) 136/103 (114) Pulse Ox 98 99 O2 Delivery Nasal Cannula O2 Flow Rate 3.00 Blood Pressure Mean: 114 Progress Progress Note : Progress Note Patient was seen and assessed. She had accessory muscle use with her breathing and tight expiratory wheezing. A DuoNeb treatment was administered but did not improve her symptoms significantly. An hour-long treatment was added. Atrial fibrillation with RVR was treated with a Cardizem bolus and drip. This helped control her heart rate down to the 110s and 120s. Patient did have an elevated WBC and CRP although no definite source of infection was identified. She was empirically treated with Zosyn as a precaution. Solu-Medrol 40 mg was ad ministered by IV route for treatment of COPD exacerbation. Part way through the hour-long nebulizer treatment patient was not improving as I anticipated. BiPAP was then ordered. I discussed CODE STATUS with the patient. She is unsettled on the issue of CODE STATUS and would like to remain full code for the time being. Case was discussed with Dr. Bermudez. He also requested a bolus and drip of amiodarone. Initial ECG Impression Date: Oct 06, 2019 Initial ECG Impression Time: 21:16 Initial ECG Rate: 157 Initial ECG Rhythm: A Fib/Flutter Initial ECG Impression: Atrial Fibrillation w/RVR Comment Atrial fibrillation with RVR. ST depression in the inferior lateral leads. No acute ST elevation. Diagnostic Imaging Diagonstic Imaging: Xray Plain Films/CT/US/NM/MRI: chest Comments Chest x-ray report reviewed. See report below: NAME: KELLEY GARCIA [facility] REC#: [id number] PT STATUS: REG ER : 1945 PHYSICIAN: JACQUELINE GONZALEZ MD ADMIT DATE: 10/06/19/ER Signed Date of Exam:10/06/19 CHEST 1 VIEW, AP/PA ONLY INDICATION: Cough and congestion with shortness of air. COMPARISON: 02/22/2019. EXAMINATION: Single view of the chest was obtained. FINDINGS: The heart is enlarged, perhaps greater than on prior. There are at least small pleural effusions, greater right than left. There is vascular congestion and presumed pulmonary edema. The pattern suggests congestive failure. IMPRESSION: Failure pattern as described. Dictated by: Dictated on workstation # [id number] Dict: [id number] Trans: 10/06/192209 [facility] [id number] Interpreted by: CLARIBEL BANERJEE Electronically signed by: CLARIBEL BANERJEE 10/06/192209 Departure Communication (Admissions) Time/Spoke to Admitting Phy: 23:05 Dr. Neal Time/Spoke to Consulting Phy: 23:10 Dr. Bermudez Impression Primary Impression: Atrial fibrillation with RVR Additional Impression: COPD exacerbation Disposition: ADMITTED INPATIENT Condition: Improved Admissions Decision to Admit Reason: Admit from ER (General) Decision to Admit/Date: Oct 06, 2019 Time/Decision to Admit Time: 21:40 Departure-Patient Inst. Referrals: JEROME NEAL DO (PCP/Family) Primary Care Physician JACQUELINE GONZALEZ MD Oct 06, 2019 23:19
[2019-10-06 23:34] VITALS: BP 126/101
[2019-10-06 23:59] LABS: FREE T4 (FREE THYROXINE) 0.94 NG/DL (0.70-1.48)
[2019-10-07] VITALS (30 sets, daily range): BP systolic 88–132; BP diastolic 57–107
[2019-10-07 00:17] LABS: BILIRUBIN,URINE 1+ (NEGATIVE); CLARITY,URINE CLEAR; COLOR,URINE YELLOW; GLUCOSE, URINE (UA) NEGATIVE (NEGATIVE); KETONES,URINE TRACE (NEGATIVE); LEUKOCYTE ESTERASE ,URINE NEGATIVE (NEGATIVE); NITRITE,URINE NEGATIVE (NEGATIVE); PH,URINE 5.5 (5-9); PROTEIN,URINE 3+ (NEGATIVE)
[2019-10-07 00:28] LABS: RBC,URINE 0-2 /HPF
[2019-10-07 00:29] LABS: AMORPHOUS SEDIMENT,UR MOD AMOR URATES /LPF; BACTERIA,URINE FEW /HPF
[2019-10-07] MEDS: AMIODARONE 450 MG/250 ML D5W EXCEL IV SCH ×4 (01:50→10:45)
[2019-10-07] MEDS ORDERED: AMIODARONE (OMNICELL DRIP KIT) 150 MG/3 ML IV ONE (01:56)
[2019-10-07] MEDS ORDERED: D5W 100 ML IVPB 100 ML IV ONE (01:57)
[2019-10-07 03:18] LABS: BASOPHILS % (AUTO) 0 % (0-10); EOSINOPHILS % (AUTO) 0 % (0-10); HEMATOCRIT 38 % (35-52); HEMOGLOBIN 12.4 G/DL (11.5-16.0); LYMPHOCYTES # (AUTO) 0.4 X 10^3 (1.0-4.0); LYMPHOCYTES % (AUTO) 2 % (12-44); MEAN CORPUSCULAR HEMOGLOBIN 29 PG (25-34); MEAN CORPUSCULAR HGB CONC 32 G/DL (32-36); MEAN CORPUSCULAR VOLUME 90 FL (80-99); MEAN PLATELET VOLUME 10.6 FL (7.4-10.4); MONOCYTES # (AUTO) 0.5 X 10^3 (0.0-1.0); MONOCYTES % (AUTO) 3 % (0-12); NEUTROPHILS # (AUTO) 17.6 X 10^3 (1.8-7.8); NEUTROPHILS % (AUTO) 95 % (42-75); PLATELET COUNT 325 10^3/uL (130-400); RED CELL DISTRIBUTION WIDTH 15.6 % (10.0-14.5); WHITE BLOOD COUNT 18.4 10^3/uL (4.3-11.0)
[2019-10-07 03:39] LABS: ALBUMIN 3.4 GM/DL (3.2-4.5); BILIRUBIN,TOTAL 2.6 MG/DL (0.1-1.0); CALCIUM 8.9 MG/DL (8.5-10.1); CREATININE SERUM 0.93 MG/DL (0.60-1.30); MAGNESIUM 1.4 MG/DL (1.6-2.4); PHOSPHORUS 3.4 MG/DL (2.3-4.7); POTASSIUM 3.3 MMOL/L (3.6-5.0); TOTAL PROTEIN 6.7 GM/DL (6.4-8.2)
--- NOTE | 2019-10-07 03:41 | Pulmonary Consultation ---
JACQUELINE MCGINNIS MED STUDENT 10/07/19 0341: History of Present Illness History of Present Illness Date Seen by Provider: Oct 07, 2019 Time Seen by Provider: 03:20 Date of Admission History of Present Illness The patient is a 74 year old female admitted to the ICU after presenting to the ER with a chief complaint of shortness of breath. She is answering all questions appropriately and fully participates with the physical exam. She states that she had been becoming increasingly short of breath over the past two days. Her family became increasingly worried last night and convinced her to go to the hospital. She reports that she has a history of CHF and COPD. She admits to a distant 20 pk/yr smoking history. This morning she states that she cannot perceive any change in her symptoms. She reports a persistent cough that is occasionally productive of clear sputum. She denies chest pain, fever, or chills. She has not other concerns at this time. Allergies and Home Medications Allergies Coded Allergies: Sulfa (Sulfonamide Antibiotics) (Verified Allergy, Unknown, 12/27/17) egg (Verified Allergy, Unknown, 12/27/17) Home Medications Acetaminophen 650 Mg Tablet.er, 1,300 MG PO HS, (Reported) TAKES 2 (650MG) TABLETS Apixaban 5 Mg Tablet, 5 MG PO BID, (Reported) LAST FILLED #60 09-22-18 Budesonide/Formoterol Fumarate 10.2 Gm Hfa.aer.ad, 2 PUFF IH BID PRN for SHORTNESS OF BREATH, (Reported) Carvedilol 6.25 Mg Tablet, 6.25 MG PO BID, (Reported) LAST FILLED #60 09-21-18 Cefdinir 300 Mg Capsule, 300 MG PO BID, (Reported) 10 DAY SUPPLY FILLED 10-28-18 Cholecalciferol (Vitamin D3) 500 Unit/5 Ml Liquid, 5 ML PO DAILY, (Reported) Citalopram Hydrobromide 20 Mg Tablet, 20 MG PO HS, (Reported) LAST FILLED #90 06-27-18 Diltiazem HCl 120 Mg Cap.er.24h, 120 MG PO DAILY, (Reported) Flaxseed Oil 1,000 Mg Capsule, 1,000 MG PO DAILY, (Reported) Pnv No.122/Iron/Folic Acid 1 Each Tablet, 1 TAB PO DAILY, (Reported) [Instaflex] , 1 TAB PO DAILY, (Reported) Past Dvkoflo-Aeposz-Gqmewz Hx Patient Social History Alcohol Use: Denies Use Recreational Drug Use: No Type Used: Cigarettes Former Smoker, Quit: Aug 27, 2004 2nd Hand Smoke Exposure: No Recent Foreign Travel: No Contact w/Someone Who Travel: No Recent Infectious Disease Expo: No Recent Hopitalizations: No Physical Abuse: No Sexual Abuse: No Mistreated: No Fear: No Immunizations Up To Date Date of Pneumonia Vaccine: Sep 17, 2015 Seasonal Allergies Seasonal Allergies: No Past Medical History Surgeries: Yes (CARDIAC CATH X 3--STENTS X 4) Cardiac, Coronary Stent, Gallbladder, Tubal Ligation Respiratory: Yes Pneumonia, COPD Currently Using CPAP: No Cardiac: Yes Atrial Fibrillation, Coronary Artery Disease, Heart Attack, High Cholesterol, Hypertension 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 0oz. 77.470121oc; 27.00 BMI Method:Stated Exam Exam Vital Signs Date Time Temp Pulse Resp B/P (MAP) Pulse Ox O2 Delivery O2 Flow Rate FiO2 10/07/19 03:00 92 28 112/75 (87) NIV Bilevel 30.00 10/07/19 02:30 102 20 116/91 (99) 95 NIV Bilevel 30.00 10/07/19 02:19 97 28 98 30.00 10/07/19 02:00 91 13 130/59 (82) 93 NIV Bilevel 30.00 10/07/19 01:30 105 20 113/74 (87) 99 NIV Bilevel 30.00 10/07/19 01:15 105 24 112/64 (80) 98 NIV Bilevel 30.00 10/07/19 01:00 102 17 112/69 (83) 92 NIV Bilevel 30.00 10/07/19 00:45 112 20 126/107 (113) 96 NIV Bilevel 30.00 10/07/19 00:44 118 10/07/19 00:40 37.1 115 26 126/107 (113) 95 NIV Bilevel 30.00 10/07/19 00:30 108 26 126/76 99 NIV Bilevel 10/07/19 00:27 NIV Bilevel 30 10/06/19 23:34 16 100 30.00 10/06/19 23:30 96 Nasal Cannula 2.00 10/06/19 22:06 123 10/06/19 21:17 99 Nasal Cannula 3.00 10/06/19 21:15 36.9 146 39 136/103 (114) 98 I & O 10/07/19 07:00 Intake Total 203 ml Output Total 125 ml Balance 78 ml Height & Weight Height: 5'4.00" Weight: 170lbs. 0oz. 77.727822iq; 27.00 BMI Method:Stated General Appearance: No Apparent Distress, Anxious Respiratory: Chest Non Tender, Wheezing Cardiovascular: No Edema, No Murmur Capillary Refill: Less Than 3 Seconds Neurologic/Psychiatric: Alert, Oriented x3, No Motor/Sensory Deficits, Normal Mood/Affect Skin: Normal Color, Warm/Dry Results Lab Laboratory Tests 10/06/19 21:20 10/07/19 02:36 Assessment/Plan Assessment/Plan Acute respiratory failure -BiPAP 15/5 at 30% COPD exacerbation -Pipercillin/Tazobactam -Methylprednisolone 40mg Q6h -Duoneb Q4h CHF -monitor A-fib w/ RVR -cardiology consulted -carvidilol -diltiazem -amiodarone JEWEL THAKKAR DO 10/07/19 9249: History of Present Illness History of Present Illness Time Seen by Provider: 05:10 Allergies and Home Medications Allergies Coded Allergies: Sulfa (Sulfonamide Antibiotics) (Verified Allergy, Unknown, 12/27/17) egg (Verified Allergy, Unknown, 12/27/17) Home Medications Acetaminophen 650 Mg Tablet.er, 1,300 MG PO HS, (Reported) TAKES 2 (650MG) TABLETS Apixaban 5 Mg Tablet, 5 MG PO BID, (Reported) LAST FILLED #60 09-22-18 Budesonide/Formoterol Fumarate 10.2 Gm Hfa.aer.ad, 2 PUFF IH BID PRN for SHORTNESS OF BREATH, (Reported) Carvedilol 6.25 Mg Tablet, 6.25 MG PO BID, (Reported) LAST FILLED #60 09-21-18 Cefdinir 300 Mg Capsule, 300 MG PO BID, (Reported) 10 DAY SUPPLY FILLED 10-28-18 Cholecalciferol (Vitamin D3) 500 Unit/5 Ml Liquid, 5 ML PO DAILY, (Reported) Citalopram Hydrobromide 20 Mg Tablet, 20 MG PO HS, (Reported) LAST FILLED #90 06-27-18 Diltiazem HCl 120 Mg Cap.er.24h, 120 MG PO DAILY, (Reported) Flaxseed Oil 1,000 Mg Capsule, 1,000 MG PO DAILY, (Reported) Pnv No.122/Iron/Folic Acid 1 Each Tablet, 1 TAB PO DAILY, (Reported) [Instaflex] , 1 TAB PO DAILY, (Reported) Past Ldeukdo-Iaffhf-Eujwoo Hx Family Medical History Cardiovascular disease 19 MOTHER Diabetes mellitus 19 MOTHER Hypertension 19 MOTHER Exam Exam General Appearance: No Apparent Distress, Anxious HEENT: Pharynx Normal Neck: Full Range of Motion, Supple Respiratory: Chest Non Tender, Wheezing Cardiovascular: No Edema, No Murmur Capillary Refill: Less Than 3 Seconds Gastrointestinal: normal bowel sounds, non tender, soft Extremity: Normal Capillary Refill Neurologic/Psychiatric: Alert, Oriented x3, No Motor/Sensory Deficits, Normal Mood/Affect Skin: Normal Color, Warm/Dry Assessment/Plan Assessment/Plan Acute respiratory failure -BiPAP 15/5 at 30% -Trial to NC COPD exacerbation -Pipercillin/Tazobactam -Methylprednisolone 40mg Q6h -Duoneb Q4h PNA -continue Zosyn -Check influenza -Delgado cultures Hypomagnesium/Hypokalemia -replace CHFAE -start lasix -monitor A-fib w/ RVR -cardiology consulted -carvidilol -diltiazem -amiodarone JACQUELINE MCGINNIS MED STUDENT Oct 07, 2019 03:41 JEWEL THAKKAR DO Oct 07, 2019 04:59
[2019-10-07] MEDS: POTASSIUM CL 10MEQ/50ML IVPB 50 ML IV SCH ×5 (04:31→07:54)
[2019-10-07] MEDS: MAGNESIUM 1 GM/100 ML IVPB 100 ML IV SCH ×3 (04:31→06:25)
[2019-10-07] MEDS: KCL 20 MEQ TAB (K-DUR) PO SCH (05:37)
[2019-10-07] MEDS: DILTIAZEM 125 MG/NS 100 ML IV SCH ×2 (05:49)
[2019-10-07] MEDS: methylPREDNISolone 40 MG/ML (Solu-MEDROL) VIAL IV SCH ×4 (05:49→23:12)
[2019-10-07] MEDS: RT-ALBUTEROL/IPRATROPIUM 3 ML (DUONEB) VIAL INH SCH ×4 (06:47→21:52)
--- NOTE | 2019-10-07 07:14 | Diagnostic Imaging Report ---
EXAMINATION: Chest 1 view HISTORY: Atrial fibrillation COMPARISON: 10/06/2019 FINDINGS: Heart is enlarged, unchanged. There is moderate pulmonary edema. No pneumothorax. Exam is stable from prior study. IMPRESSION: 1. Stable bilateral pulmonary edema and cardiomegaly. Dictated by: Dictated on workstation # [id number]
[2019-10-07] MEDS ORDERED: KCL 20 MEQ TAB (K-DUR) PO ONE (09:00)
[2019-10-07] MEDS: PIPERACILLIN/TAZO 4.5 GM/NS 100 ML IV SCH ×6 (09:02→20:39)
[2019-10-07] MEDS: CARVEDILOL 6.25 MG (COREG) TAB PO SCH ×2 (10:06→20:39)
[2019-10-07] MEDS: FUROSEMIDE 40 MG/4 ML INJ (LASIX) IVP SCH (10:06)
[2019-10-07] MEDS: APIXABAN 5 MG (ELIQUIS) TABLET PO SCH (10:06)
--- NOTE | 2019-10-07 12:31 | History & Physical-Hospitalist ---
History of Present Illness HPI/Chief Complaint CC: Respiratory distress with AF w/RVR HPI: This is a 74yoWF clinic patient of mine with h/o former smoking with COPD O 2 dependent at night, AF on OAC, HTN. HLP, RA and denial about severity of medical issues who presented to the ER last night with increased work of breathing and was found to have AECOPD with AF w/RVR and volume overload. Patient was placed on biPAP. She originally went to Urgent Care and was given an abx there for bronchitis and then when she worsened she came to ER. I did tell her that I would recommend her to come to ER instead of urgent cares int he future due to the severity of her medical problems and those facilities are limited in what they can do for her. Source: patient, RN/MD Exam Limitations: no limitations Date Seen 10/07/19 Time Seen by a Provider: 11:00 Attending Physician Terese Verde DO PCP Terese Verde DO Referring Physician Date of Admission Oct 06, 2019 at 23:17 Home Medications & Allergies Home Medications Reviewed patient Home Medication Reconciliation performed by pharmacy medication reconciliations industrial controls technician and/or nursing. Patients Allergies have been reviewed. Allergies Allergies Coded Allergies Sulfa (Sulfonamide Antibiotics) (Verified Allergy, Unknown, 12/27/17) egg (Verified Allergy, Unknown, 12/27/17) Past Hladend-Ybeagq-Dcvmpx Hx Past Med/Social Hx: Reviewed Nursing Past Med/Soc Hx, Reviewed and Corrections made Patient Social History Marrital Status: Employed/Student: retired Alcohol Use: Denies Use Recreational Drug Use: No Smoking Status: Former Smoker Former Smoker, Quit: Aug 27, 2004 Type Used: Cigarettes 2nd Hand Smoke Exposure: No Recent Foreign Travel: No Contact w/other who traveled: No Recent Hopitalizations: No Recent Infectious Disease Expo: No Immunizations Up To Date Date of Pneumonia Vaccine: Sep 17, 2015 Seasonal Allergies Seasonal Allergies: No Past Medical History Surgeries: Cardiac, Coronary Stent, Gallbladder, Tubal Ligation Respiratory: COPD, Pneumonia Currently Using CPAP: No Cardiac: Atrial Fibrillation, Coronary Artery Disease, Heart Attack, High Cholesterol, Hypertension Menopausal Musculoskeletal: Rheumatoid Arthritis History of Blood Disorders: No Adverse Reaction to Blood Sousa: No Family History Reviewed Nursing Family Hx Cardiovascular disease 19 MOTHER Diabetes mellitus 19 MOTHER Hypertension 19 MOTHER No Pertinent Family Hx Review of Systems Constitutional: see HPI, weakness Respiratory: cough, dyspnea on exertion, orthopnea, short of breath, wheezing Cardiovascular: palpitations Psychiatric/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: Anxiety, Depressed Physical Exam Physical Exam Vital Signs Vital Signs - First Documented 10/06/19 10/06/19 10/07/19 21:15 21:17 00:27 Temp 36.9 Pulse 146 Resp 39 B/P (MAP) 136/103 (114) Pulse Ox 98 O2 Delivery Nasal Cannula O2 Flow Rate 3.00 FiO2 30 Capillary Refill : Less Than 3 Seconds Height, Weight, BMI Height: 5'4.00" Weight: 170lbs. 0oz. 77.653087xd; 29.46 BMI Method:Stated General Appearance: No Apparent Distress, Anxious, Chronically ill Eyes: Right Eye Normal Inspection, Right Eye PERRL HEENT: PERRL/EOMI, Normal ENT Inspection, Pharynx Normal, Moist Mucous Memb ranes Neck: Full Range of Motion, Normal Inspection, Non Tender Respiratory: Chest Non Tender, No Accessory Muscle Use, No Respiratory Distress, Decreased Breath Sounds, Wheezing Cardiovascular: No Edema, No Gallop, No JVD, No Murmur, Normal Peripheral Pulses, Irregularly Irregular, Tachycardia Gastrointestinal: Normal Bowel Sounds, No Organomegaly, No Pulsatile Mass, Non Tender, Soft Back: Normal Inspection, No CVA Tenderness, No Vertebral Tenderness Extremity: Normal Capillary Refill, Normal Inspection, Normal Range of Motion, Non Tender, No Calf Tenderness, No Pedal Edema Neurologic/Psychiatric: Alert, Oriented x3, No Motor/Sensory Deficits, Normal Mood/Affect, director hematology II-XII Norm as Tested Skin: Normal Color, Warm/Dry Lymphatic: No Adenopathy Results Results/Procedures Labs Laboratory Tests 10/06/19 21:20 10/07/19 02:36 Patient resulted labs reviewed. Assessment/Plan Admission Diagnosis Assessment: Acute respiratory failure requiring biPAP PNA AF w/RVR OAC with Eliquis COPD O2 dependence at home at night RA Denial about her medical condition severity AECHF Plan: OAC Amio IV abx IV steroids Admission Status: Inpatient Order (span 2 midnights) Reason for Inpatient Admission: Severe resp failure Diagnosis/Problems Diagnosis/Problems (1) LLL pneumonia Status: Acute (2) Hypoxia Status: Chronic (3) Atrial fibrillation with RVR Status: Acute (4) COPD exacerbation Status: Acute (5) EMPHYSEMA, UNSPECIFIED Status: Chronic (6) Atrial fibrillation with rapid ventricular response Status: Acute (7) Noncompliance with medication regimen Status: Chronic (8) Acute heart failure Status: Acute (9) Fluid overload Status: Acute Clinical Quality Measures DVT/VTE Risk/Contraindication: Risk Factor Score Per Nursin RFS Level Per Nursing on Admit: 3=High TERESE VERDE DO Oct 07, 2019 12:31
[2019-10-07] MEDS ORDERED: DILTIAZEM 120 MG (CARDIZEM CD) CAP PO NR (13:15)
--- NOTE | 2019-10-07 13:57 | NUR ---
PATIENT CALLED THIS NURSE TO ROOM, STATED SHE "DIDNT FEEL RIGHT" HR DROPPED TO 50'S-60'S. BP DROP TO 80'S SYSTOLIC. NOTIFIED DR. COHEN AT THIS TIME. STATED TO HOLD IV CARDIZEM ET PO CARDIZEM. PATIENT PLACED BACK ON BIPAP AT THIS TIME.
[2019-10-07 14:28] LABS: ABG BASE EXCESS -3.6 MMOL/L (-2.5-2.5); ABG OXYGEN SATURATION 100 % (94-100); ABG PCO2 27 MMHG (35-45); ABG PH 7.47 (7.37-7.43); ABG PO2 165 MMHG (79-93); ABG TCO2 20.7 MMOL/L (21.0-31.0)
[2019-10-07 14:29] LABS: ALLENS TEST YES-POS; INSPIRED O2 40%; PATIENT TEMP 35.5; VENTILATOR NO
--- NOTE | 2019-10-07 14:38 | NUR ---
NOTIFIED DR. NEAL OF PATIENT STATUS CHANGED. RECEIVED ORDER FOR ABG. RESULTS GIVEN TO DR. NEAL ET DR. THAKKAR
--- NOTE | 2019-10-07 16:05 | Consultation-Cardiology ---
HPI-Cardiology Cardiology Consultation: Date of Consultation 10/07/19 Date of Admission Attending Physician Terese Verde DO Admitting Physician Terese Verde DO Consulting Physician Faby BERMUDEZ MD HPI: Time Seen by a Provider: 12:00 Chief Complaint: Shortness of breath, tachycardia This is a 74-year-old lady who follows with supervisor plastering Dr. Hamilton in [place]. She presented with significant shortness of breath. She denied any chest pain. 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 She had further stents 6 months later as well. She has history of COPD due to chronic smoking. She quit smoking in 2003. History is positive for CAD as well. She has atrial fibrillation for at least the last one and a half year. However she does not know if she has paroxysmal atrial fibrillation or chronic atrial fibrillation. She has been on Eliquis for the last one and a half year. She has been in atrial fibrillation since admission. She also has history of congestive heart failure. She was found to be in atrial fibrillation with rapid ventricular rate with heart rates in the 150 and 160s. Review of Systems-Cardiology Review of Systems Constitutional: As described under HPI; No As described under HPI, No no symptoms reported, No chills, No fever, No lightheadedness Eyes: No As described under HPI, No no symptoms reported, No blindness, No blurred vision, No contact lenses, No drainage, No decreased acuity, No foreign body sensation, No pain, No vision change Ears/Nose/Throat: No As described under HPI, No no symptoms reported, No chronic hearing loss, No ear discharge, No ear pain, No nasal drainage, No ulcerations Respiratory: No no symptoms reported; As described under HPI; No As described under HPI, No cough; orthopnea; No shortness of breath, No SOB with excertion Cardiovascular: No no symptoms reported; As described under HPI; No As described under HPI, No chest pain, No edema, No irregular heart rate, No lightheadedness; palpitations; No syncope, No other Gastrointestinal: No no symptoms reported, No As described under HPI, No abdomen distended, No abdominal pain, No blood streaked bowels, No constipation, No diarrhea, No nausea, No vomiting, No stool coloration changes Genitourinary: No As described under HPI, No burning, No dysuria, No discharge, No frequency, No flank pain, No hematuria, No urgency : Yes : No Skin: No rash, No skin related problems, No ulcerations Psychiatric/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: No anxiety, No depression, No seizure, No focal weakness, No syncope Hematologic: No bleeding abnormalities YAW-[place]-Wsgdnt Hx Patient Social History Alcohol Use: Denies Use Recreational Drug Use: No Former smoker/When Quit: Oct 11, 2004 Type Used: Cigarettes 2nd Hand Smoke Exposure: No Recent Foreign Travel: No Recent Infectious Disease Expo: No Hospitalization with Isolation: Denies Immunizations Up To Date Date of Pneumonia Vaccine: Sep 17, 2015 Past Medical History PMH As described under Assessment. Family Medical History Family Medical History: She reports her mother had coronary artery disease and hypertension. Family History: Cardiovascular disease 19 MOTHER Diabetes mellitus 19 MOTHER Hypertension 19 MOTHER Allergies and Home Medications Allergies Coded Allergies: Sulfa (Sulfonamide Antibiotics) (Verified Allergy, Unknown, 12/27/17) egg (Verified Allergy, Unknown, 12/27/17) Home Medications Acetaminophen 650 Mg Tablet.er, 1,300 MG PO HS, (Reported) TAKES 2 (650MG) TABLETS Apixaban 5 Mg Tablet, 5 MG PO BID, (Reported) LAST FILLED #60 09-22-18 Budesonide/Formoterol Fumarate 10.2 Gm Hfa.aer.ad, 2 PUFF IH BID PRN for S HORTNESS OF BREATH, (Reported) Carvedilol 6.25 Mg Tablet, 6.25 MG PO BID, (Reported) LAST FILLED #60 09-21-18 Cefdinir 300 Mg Capsule, 300 MG PO BID, (Reported) 10 DAY SUPPLY FILLED 10-28-18 Cholecalciferol (Vitamin D3) 500 Unit/5 Ml Liquid, 5 ML PO DAILY, (Reported) Citalopram Hydrobromide 20 Mg Tablet, 20 MG PO HS, (Reported) LAST FILLED #90 06-27-18 Diltiazem HCl 120 Mg Cap.er.24h, 120 MG PO DAILY, (Reported) Flaxseed Oil 1,000 Mg Capsule, 1,000 MG PO DAILY, (Reported) Pnv No.122/Iron/Folic Acid 1 Each Tablet, 1 TAB PO DAILY, (Reported) [Instaflex] , 1 TAB PO DAILY, (Reported) Patient Home Medication List Home Medication List Reviewed: Yes Physical Exam-Cardiology Physical Exam Vital Signs/I&O 10/07/19 10/07/19 10/07/19 10/07/19 05:00 05:15 05:49 06:00 Pulse 89 86 Resp 24 28 B/P (MAP) 113/66 (82) 124/72 (89) Pulse Ox 95 91 O2 Delivery NIV Bilevel Nasal Cannula Nasal Cannula Nasal Cannula O2 Flow Rate 30.00 3.00 3.00 3.00 10/07/19 10/07/19 10/07/19 10/07/19 06:47 07:00 07:00 07:49 Pulse 80 84 Resp 31 B/P (MAP) 108/62 (77) Pulse Ox 93 92 96 O2 Delivery Room Air Nasal Cannula Nasal Cannula O2 Flow Rate 2.00 2.00 10/07/19 10/07/19 10/07/19 10/07/19 08:00 09:00 10:00 10:58 Pulse 72 69 78 Resp 32 35 25 B/P (MAP) 104/83 (90) 112/64 (80) 132/71 (91) Pulse Ox 96 97 94 92 O2 Delivery Nasal Cannula Nasal Cannula Nasal Cannula Room Air O2 Flow Rate 2.00 2.00 2.00 10/07/19 10/07/19 10/07/19 10/07/19 11:00 12:00 12:00 12:00 Temp 36.5 Pulse 81 95 Resp 31 25 B/P (MAP) 120/88 (99) 117/72 (87) Pulse Ox 100 91 96 O2 Delivery Nasal Cannula Nasal Cannula Nasal Cannula O2 Flow Rate 2.00 2.00 2.00 10/07/19 10/07/19 10/07/19 10/07/19 13:00 13:00 13:55 14:00 Pulse 64 67 58 Resp 31 30 B/P (MAP) 92/69 (77) 88/60 (69) Pulse Ox 89 100 O2 Delivery Nasal Cannula NIV Bilevel NIV Bilevel O2 Flow Rate 2.00 40.00 40.00 10/07/19 10/07/19 14:25 15:00 Pulse 97 59 Resp 28 25 B/P (MAP) 93/58 (70) Pulse Ox 98 99 O2 Delivery NIV Bilevel O2 Flow Rate 25.00 40.00 Capillary Refill : Less Than 3 Seconds Constitutional: appears stated age; No apparent distress; well-developed, well- nourished HEENT: PERRL; No discharge; hearing is well preserved, oral hygience is good; No ulceration, No xanthelasmas are seen Neck: No carotid bruit; carotid pulses are 2 + bilaterally Respiratory: chest is bilaterally symmetric, lungs clear to auscultation Cardiovascular: irregularly irregular, S1 and S2 Gastrointestinal: soft, audible bowel sounds; No spleenomegaly Rectal: deferred Extremities: normal range of motion, non-tender, normal inspection, pedal edema; No clubbing, No cyanosis, No significant edema Neurologic/Psychiatric: no motor/sensory deficits, alert, normal mood/affect, oriented x 3, power is 5/5 both on sides Skin: normal color; No rash, No ulcerations Data Review Labs Laboratory Tests 10/06/19 21:20: White Blood Count 17.4H, Red Blood Count 4.71, Hemoglobin 13.5, Hematocrit 42, Mean Corpuscular Volume 89, Mean Corpuscular Hemoglobin 29, Mean Corpuscular Hemoglobin Concent 32, Red Cell Distribution Width 15.7H, Platelet Count 363, Mean Platelet Volume 10.0, Neutrophils (%) (Auto) 89H, Lymphocytes (%) (Auto) 6L , Monocytes (%) (Auto) 4, Eosinophils (%) (Auto) 0, Basophils (%) (Auto) 0, Neutrophils # (Auto) 15.5H, Lymphocytes # (Auto) 1.0, Monocytes # (Auto) 0.8, Eosinophils # (Auto) 0.0, Basophils # (Auto) 0.0, Neutrophils % (Manual) 85, Lymphocytes % (Manual) 10, Monocytes % (Manual) 5, Nucleated Red Blood Cells 1, Blood Morphology Comment NORMAL, Prothrombin Time 15.5H, INR Comment 1.2, Activated Partial Thromboplast Time 29, Sodium Level 137, Potassium Level 3.9, Chloride Level 99, Carbon Dioxide Level 23, Anion Gap 15H, Blood Urea Nitrogen 14, Creatinine 0.98, Estimat Glomerular Filtration Rate 55, BUN/Creatinine Ratio 14, Glucose Level 136H, Lactic Acid Level 1.47, Calcium Level 9.5, Corrected Calcium 9.7, Magnesium Level 1.5L, Total Bilirubin 2.9H, Aspartate Amino Transf (AST/SGOT) 22, Alanine Aminotransferase (ALT/SGPT) 22, Alkaline Phosphatase 119, Myoglobin 64.1, Troponin I < 0.028, C-Reactive Protein High Sensitivity 10.07H, B-Type Natriuretic Peptide 432.7H, Total Protein 7.4, Albumin 3.8, Thyroid Stimulating Hormone (TSH) 2.46, Free Thyroxine 0.94 10/07/19 00:08: Urine Color YELLOW, Urine Clarity CLEAR, Urine pH 5.5, Urine Specific Ransom >=1.030, Urine Protein 3+H, Urine Glucose (UA) NEGATIVE, Urine Ketones TRACEH, Urine Nitrite NEGATIVE, Urine Bilirubin 1+H, Urine Urobilinogen 0.2, Urine Leukocyte Esterase NEGATIVE, Urine RBC (Auto) 1+H, Urine RBC 0-2, Urine WBC 2-5, Urine Crystals PRESENTH, Urine Amorphous Sediment MOD WALDEMAR URATESH, Urine Bacteria FEWH, Urine Casts NONE, Urine Mucus NEGATIVE, Urine Culture Indicated YES 10/07/19 02:36: White Blood Count 18.4H, Red Blood Count 4.26L, Hemoglobin 12.4, Hematocrit 38, Mean Corpuscular Volume 90, Mean Corpuscular Hemoglobin 29, Mean Corpuscular Hemoglobin Concent 32, Red Cell Distribution Width 15.6H, Platelet Count 325, Mean Platelet Volume 10.6H, Neutrophils (%) (Auto) 95H, Lymphocytes (%) (Auto) 2L, Monocytes (%) (Auto) 3, Eosinophils (%) (Auto) 0, Basophils (%) (Auto) 0, Neutrophils # (Auto) 17.6H, Lymphocytes # (Auto) 0.4L, Monocytes # (Auto) 0.5, Eosinophils # (Auto) 0.0, Basophils # (Auto) 0.0, Sodium Level 134L, Potassium Level 3.3L, Chloride Level 100, Carbon Dioxide Level 17L, Anion Gap 17H, Blood Urea Nitrogen 14, Creatinine 0.93, Estimat Glomerular Filtration Rate 59, BUN/Creatinine Ratio 15, Glucose Level 268H, Calcium Level 8.9, Corrected Calcium 9.4, Magnesium Level 1.4L, Total Bilirubin 2.6H, Aspartate Amino Transf (AST/SGOT) 18, Alanine Aminotransferase (ALT/SGPT) 20, Alkaline Phosphatase 103, Total Protein 6.7, Albumin 3.4, Phosphorus Level 3.4, Triglycerides Level 99, Cholesterol Level 144, LDL Cholesterol Direct 105, VLDL Cholesterol 20, HDL Cholesterol 35L 10/07/19 14:24: Blood Gas Puncture Site RT RADIAL, Blood Gas Patient Temperature 35.5, Arterial Blood pH 7.47H, Arterial Blood Partial Pressure CO2 27L, Arterial Blood Partial Pressure O2 165H, Arterial Blood HCO3 20L, Arterial Blood Total CO2 20.7L, Arterial Blood Oxygen Saturation 100, Arterial Blood Base Excess -3.6L, Garry Test YES-POS, Blood Gas Ventilator Setting NO, Blood Gas Inspired Oxygen 40% ECG Impression ECG Initial ECG Impression: Atrial Fibrillation A/P-Cardiology Assessment/Admission Diagnosis Possible sepsis, COPD, Acute respiratory failure, Atrial fibrillation with rapid ventricular rate, CAD, History of smoking Plan Possible sepsis, leukocytosis with significantly elevated CRP. Was given a dose of antibiotic in the ER. Will defer to the primary team for further management. COPD, defer treatment to Dr. Lin and Dr. Verde. Acute respiratory failure, likely multifactorial with COPD and congestive heart failure. IV Lasix. Echocardiogram. Atrial fibrillation with rapid ventricular rate, was treated with IV amiodarone and IV Cardizem. We will discontinue amiodarone. Continue Cardizem for now if blood pressure tolerates. Transfer to by mouth Cardizem once able. CAD, first troponin was negative. Continue outpatient medical therapy. History of smoking Thank you for your consultation. Please call me if you have any questions. Edwina Bermudez MD, FACP, FACC, FSCAI, FHRS, CCDS Interventional Cardiology Cardiac Electrophysiology Vascular Medicine and Endovascular Interventions Clinical Quality Measures DVT/VTE Risk/Contraindication: Risk Factor Score Per Nursin RFS Level Per Nursing on Admit: 3=High Faby BERMUDEZ MD Oct 07, 2019 16:05
[2019-10-07] MEDS ORDERED: ONDANSETRON 4 MG (ZOFRAN) ORAL DISSOLVE TAB PO PRN (17:15)
[2019-10-07] MEDS ORDERED: LOPERAMIDE 2 MG (IMODIUM) TABLET PO PRN (17:15)
[2019-10-07] MEDS ORDERED: ACETAMINOPHEN 500 MG TAB (TYLENOL) PO PRN (17:15)
[2019-10-07] MEDS ORDERED: fentaNYL INJECTION 100 MCG/2 ML AMP IVP PRN (17:15)
[2019-10-07] MEDS ORDERED: CALCIUM CARBONATE 500 MG (TUMS) TAB.CHEW PO PRN (17:15)
[2019-10-07] MEDS ORDERED: ONDANSETRON 4 MG/2 ML (SDV) Z0FRAN IVP PRN (17:15)
[2019-10-07] MEDS ORDERED: diphenhydrAMINE 25 MG TAB (BENADRYL) PO PRN (17:15)
[2019-10-07] MEDS ORDERED: DOCUSATE SODIUM 100 MG (COLACE) CAP PO PRN (17:15)
[2019-10-07] MEDS ORDERED: HYDROcodone/APAP 5 MG/325 MG (LORTAB) TAB PO PRN (17:15)
[2019-10-07] MEDS: NS IV 1000 ML 1,000 ML IV SCH (18:18)
[2019-10-07] MEDS: SENNA W/DOCUSATE (SENOKOT S) TABLET PO SCH (20:39)
[2019-10-07] MEDS: MELATONIN 3 MG TABLET PO PRN (23:12)
[2019-10-08] VITALS (14 sets, daily range): BP systolic 98–131; BP diastolic 71–110
[2019-10-08] MEDS: DILTIAZEM 125 MG/NS 100 ML IV SCH ×2 (00:41)
[2019-10-08] MEDS: RT-ALBUTEROL/IPRATROPIUM 3 ML (DUONEB) VIAL INH SCH ×6 (02:44→23:36)
[2019-10-08 03:36] LABS: BASOPHILS % (AUTO) 0 % (0-10); EOSINOPHILS % (AUTO) 0 % (0-10); HEMATOCRIT 38 % (35-52); HEMOGLOBIN 12.1 G/DL (11.5-16.0); LYMPHOCYTES # (AUTO) 0.7 X 10^3 (1.0-4.0); LYMPHOCYTES % (AUTO) 3 % (12-44); MEAN CORPUSCULAR HEMOGLOBIN 29 PG (25-34); MEAN CORPUSCULAR HGB CONC 32 G/DL (32-36); MEAN CORPUSCULAR VOLUME 91 FL (80-99); MEAN PLATELET VOLUME 10.8 FL (7.4-10.4); MONOCYTES # (AUTO) 0.6 X 10^3 (0.0-1.0); MONOCYTES % (AUTO) 3 % (0-12); NEUTROPHILS # (AUTO) 20.2 X 10^3 (1.8-7.8); NEUTROPHILS % (AUTO) 94 % (42-75); PLATELET COUNT 312 10^3/uL (130-400); RED CELL DISTRIBUTION WIDTH 16.1 % (10.0-14.5); WHITE BLOOD COUNT 21.6 10^3/uL (4.3-11.0)
[2019-10-08 03:53] LABS: CALCIUM 9.3 MG/DL (8.5-10.1); CREATININE SERUM 1.52 MG/DL (0.60-1.30); MAGNESIUM 2.2 MG/DL (1.6-2.4); PHOSPHORUS 4.9 MG/DL (2.3-4.7); POTASSIUM 5.1 MMOL/L (3.6-5.0)
--- NOTE | 2019-10-08 05:31 | Pulmonary Progress Note ---
Subjective Time Seen by a Provider: 05:26 Subjective/Events-last exam Pt had episode of bradycardia and hypotension yesterday. She is now more co nfused, SOB, and wheezy. Sepsis Event Evaluation Height, Weight, BMI Height: 5'4.00" Weight: 170lbs. 0oz. [id number]; 29.46 BMI Method:Stated Focused Exam Lactate Level 10/06/19 21:20: Lactic Acid Level 1.47 Exam Exam Vital Signs Date Time Temp Pulse Resp B/P (MAP) Pulse Ox O2 Delivery O2 Flow Rate FiO2 10/08/19 04:00 Nasal Cannula 3.50 10/08/19 03:00 79 23 116/95 (102) 98 Nasal Cannula 3.50 10/08/19 02:44 98 Nasal Cannula 3.00 10/08/19 02:00 94 23 98/79 (85) 98 Nasal Cannula 3.50 10/08/19 01:00 79 23 102/92 (95) 98 Nasal Cannula 3.50 10/08/19 01:00 90 10/08/19 00:00 80 25 117/92 (100) 97 Nasal Cannula 3.50 10/08/19 00:00 Nasal Cannula 3.50 10/07/19 23:24 35.8 10/07/19 23:00 101 23 94/79 (84) 97 Nasal Cannula 3.50 10/07/19 22:00 96 25 113/81 (92) 97 Nasal Cannula 3.50 10/07/19 21:52 98 Nasal Cannula 3.00 10/07/19 21:00 86 21 107/93 (98) 98 Nasal Cannula 3.50 10/07/19 20:00 Nasal Cannula 3.50 10/07/19 20:00 82 25 105/68 (80) 98 Nasal Cannula 3.50 10/07/19 20:00 36.4 10/07/19 19:00 73 10/07/19 19:00 78 29 112/72 (85) 98 Nasal Cannula 3.50 10/07/19 18:46 99 Nasal Cannula 3.00 10/07/19 18:44 Nasal Cannula 3.00 10/07/19 18:00 69 20 97/71 (80) 98 NIV Bilevel 25.00 10/07/19 17:00 71 25 98/66 (77) 96 NIV Bilevel 40.00 10/07/19 16:00 96 NIV Bilevel 40 10/07/19 16:00 60 25 92/62 (72) 97 NIV Bilevel 40.00 10/07/19 16:00 35.0 10/07/19 15:00 59 25 93/58 (70) 99 NIV Bilevel 40.00 10/07/19 14:25 97 28 98 25.00 10/07/19 14:00 58 30 88/60 (69) 100 NIV Bilevel 40.00 10/07/19 13:55 NIV Bilevel 40.00 10/07/19 13:00 67 10/07/19 13:00 64 31 92/69 (77) 89 Nasal Cannula 2.00 10/07/19 12:00 96 Nasal Cannula 2.00 10/07/19 12:00 36.5 10/07/19 12:00 95 25 117/72 (87) 91 Nasal Cannula 2.00 10/07/19 11:00 81 31 120/88 (99) 100 Nasal Cannula 2.00 10/07/19 10:58 92 Room Air 10/07/19 10:00 78 25 132/71 (91) 94 Nasal Cannula 2.00 10/07/19 09:00 69 35 112/64 (80) 97 Nasal Cannula 2.00 10/07/19 08:00 72 32 104/83 (90) 96 Nasal Cannula 2.00 10/07/19 07:49 96 Nasal Cannula 2.00 10/07/19 07:00 84 10/07/19 07:00 80 31 108/62 (77) 92 Nasal Cannula 2.00 10/07/19 06:47 93 Room Air 10/07/19 06:00 86 28 124/72 (89) 91 Nasal Cannula 3.00 10/07/19 05:49 Nasal Cannula 3.00 I & O 10/08/19 07:00 Intake Total 1690 ml Output Total 750 ml Balance 940 ml Height & Weight Height: 5'4.00" Weight: 170lbs. 0oz. 77.464511cp; 29.46 BMI Method:Stated General Appearance: Anxious, Chronically ill, Mild Distress HEENT: Pharynx Normal Neck: Full Range of Motion, Supple Respiratory: Chest Non Tender, Decreased Breath Sounds, Wheezing Cardiovascular: No Edema, No Murmur Capillary Refill: Less Than 3 Seconds Gastrointestinal: normal bowel sounds, non tender, soft Extremity: Normal Capillary Refill Neurologic/Psychiatric: Alert, Oriented x3, No Motor/Sensory Deficits, Normal Mood/Affect Skin: Normal Color, Warm/Dry Lymphatic: No Adenopathy Results Lab Laboratory Tests 10/06/19 21:20 10/07/19 02:36 10/08/19 03:09 Assessment/Plan Assessment/Plan Acute respiratory failure -BiPAP 15/5 at 30% -Trial to NC COPD exacerbation -Pipercillin/Tazobactam -Methylprednisolone 40mg Q6h -Duoneb Q4h PNA -continue Zosyn -Delgado cultures Hyperkalmia -Will not give KCL with lasix today CHFAE -start lasix -monitor A-fib w/ RVR -cardiology consulted -carvidilol -diltiazem -amiodarone JEWEL THAKKAR DO Oct 08, 2019 05:31
[2019-10-08] MEDS: POTASSIUM CL 10MEQ/50ML IVPB 50 ML IV SCH (05:42)
[2019-10-08] MEDS: PIPERACILLIN/TAZO 4.5 GM/NS 100 ML IV SCH ×6 (05:42→20:00)
[2019-10-08] MEDS: MAGNESIUM 1 GM/100 ML IVPB 100 ML IV SCH (05:43)
[2019-10-08] MEDS: KCL 20 MEQ TAB (K-DUR) PO SCH (06:00)
[2019-10-08] MEDS: methylPREDNISolone 40 MG/ML (Solu-MEDROL) VIAL IV SCH ×4 (06:14→23:34)
--- NOTE | 2019-10-08 06:45 | Diagnostic Imaging Report ---
Portable erect AP chest at 3:37. INDICATION: Respiratory distress. The cardiomegaly noted on the prior exam of 10/07/2019 is again evident and no different. The central pulmonary vascularity and interstitial densities are prominent and similar to the prior exam as well. There is now vague area of slightly increased density in the right lung base. This may be related to coexistent pneumonia/atelectasis. The mediastinum is not widened. The osseous structures are intact. IMPRESSION: There is persistent cardiomegaly and mild pulmonary congestion. There now appears to be an area of pneumonia/atelectasis in the right lung base as well. A followup study would be recommended for continued evaluation. Dictated by: Dictated on workstation # [id number]
[2019-10-08] MEDS: APIXABAN 5 MG (ELIQUIS) TABLET PO SCH (09:23)
[2019-10-08] MEDS: FUROSEMIDE 40 MG/4 ML INJ (LASIX) IVP SCH (09:23)
[2019-10-08] MEDS: DILTIAZEM 120 MG (CARDIZEM CD) CAP PO SCH (09:23)
[2019-10-08] MEDS: CARVEDILOL 6.25 MG (COREG) TAB PO SCH ×2 (09:24→19:55)
[2019-10-08] MEDS: SENNA W/DOCUSATE (SENOKOT S) TABLET PO SCH ×2 (09:24→19:55)
[2019-10-08] MEDS: RT-BUDESONIDE NEBS 0.5 MG/2ML (PULMICORT) AMP INH SCH ×2 (09:44→19:39)
--- NOTE | 2019-10-08 11:16 | Cardiology Progress Note ---
Cardiology SOAP Progress Note Subjective: Improved shortness of breath. Objective: I&O/Vital Signs 10/07/19 10/08/19 10/08/19 10/08/19 23:24 00:00 00:00 01:00 Temp 35.8 Pulse 80 90 Resp 25 B/P (MAP) 117/92 (100) Pulse Ox 97 O2 Delivery Nasal Cannula Nasal Cannula O2 Flow Rate 3.50 3.50 10/08/19 10/08/19 10/08/19 10/08/19 01:00 02:00 02:44 03:00 Pulse 79 94 79 Resp 23 23 23 B/P (MAP) 102/92 (95) 98/79 (85) 116/95 (102) Pulse Ox 98 98 98 98 O2 Delivery Nasal Cannula Nasal Cannula Nasal Cannula Nasal Cannula O2 Flow Rate 3.50 3.50 3.00 3.50 10/08/19 10/08/19 10/08/19 10/08/19 04:00 04:00 05:00 06:00 Pulse 86 82 88 Resp 23 20 20 B/P (MAP) 112/81 (91) 128/71 (90) 117/80 (92) Pulse Ox 99 98 98 O2 Delivery Nasal Cannula Nasal Cannula Nasal Cannula Nasal Cannula O2 Flow Rate 3.50 3.50 3.50 3.50 10/08/19 10/08/19 10/08/19 10/08/19 07:00 07:00 08:00 08:31 Pulse 78 90 103 Resp 23 B/P (MAP) 121/96 (104) 127/110 (116) Pulse Ox 98 99 O2 Delivery Nasal Cannula Nasal Cannula Nasal Cannula O2 Flow Rate 3.50 3.50 3.00 10/08/19 10/08/19 10/08/19 10/08/19 09:00 09:44 09:51 10:00 Pulse 88 80 Resp 20 18 B/P (MAP) 107/78 (88) Pulse Ox 93 97 97 O2 Delivery Nasal Cannula Nasal Cannula Nasal Cannula Nasal Cannula O2 Flow Rate 3.50 3.00 3.00 3.50 10/08/19 11:00 Pulse 92 Resp 21 B/P (MAP) 118/78 (91) O2 Delivery Nasal Cannula O2 Flow Rate 3.50 10/08/19 00:00 Intake Total 1120 ml Output Total 425 ml Balance 695 ml Weight (Pounds): 170 Weight (Ounces): 0 Weight (Calculated Kilograms): 77.253408 Constitutional: appears stated age; No apparent distress; well-developed, well- nourished Respiratory: chest is bilaterally symmetric, lungs clear to auscultation Cardiovascular: irregularly irregular, S1 and S2 Gastrointestional: soft, audible bowel sounds; No spleenomegaly Extremities: normal range of motion, non-tender, normal inspection, pedal edema; No clubbing, No cyanosis, No significant edema Neurologic/Psychiatric: no motor/sensory deficits, alert, normal mood/affect, oriented x 3, power is 5/5 both on sides Skin: normal color; No rash, No ulcerations Results/Procedures: Labs Laboratory Tests 10/07/19 14:24: Blood Gas Puncture Site RT RADIAL, Blood Gas Patient Temperature 35.5, Arterial Blood pH 7.47H, Arterial Blood Partial Pressure CO2 27L, Arterial Blood Partial Pressure O2 165H, Arterial Blood HCO3 20L, Arterial Blood Total CO2 20.7L, Arterial Blood Oxygen Saturation 100, Arterial Blood Base Excess -3.6L, Garry Test YES-POS, Blood Gas Ventilator Setting NO, Blood Gas Inspired Oxygen 40% 10/08/19 03:09: White Blood Count 21.6H, Red Blood Count 4.17L, Hemoglobin 12.1, Hematocrit 38, Mean Corpuscular Volume 91, Mean Corpuscular Hemoglobin 29, Mean Corpuscular Hemoglobin Concent 32, Red Cell Distribution Width 16.1H, Platelet Count 312, Mean Platelet Volume 10.8H, Neutrophils (%) (Auto) 94H, Lymphocytes (%) (Auto) 3 L, Monocytes (%) (Auto) 3, Eosinophils (%) (Auto) 0, Basophils (%) (Auto) 0, Neutrophils # (Auto) 20.2H, Lymphocytes # (Auto) 0.7L, Monocytes # (Auto) 0.6, Eosinophils # (Auto) 0.0, Basophils # (Auto) 0.0, Sodium Level 135, Potassium Level 5.1H, Chloride Level 105, Carbon Dioxide Level 17L, Anion Gap 13, Blood Urea Nitrogen 27H, Creatinine 1.52H, Estimat Glomerular Filtration Rate 33, BUN/Creatinine Ratio 18, Glucose Level 163H, Calcium Level 9.3, Phosphorus Level 4.9H, Magnesium Level 2.2, B-Type Natriuretic Peptide 149.6H Microbiology 12/21/19 Urine Culture - Final, Complete NO GROWTH 10/06/19 Blood Culture - Preliminary, Resulted No growth A/P: Assessment/Dx: Possible sepsis, COPD, Acute respiratory failure, Atrial fibrillation with rapid ventricular rate, CAD, History of smoking Plan: Possible sepsis, leukocytosis with significantly elevated CRP. Was given a dose of antibiotic in the ER. Will defer to the primary team for further management. COPD, defer treatment to Dr. Lin and Dr. Verde. Acute respiratory failure, likely multifactorial with COPD and congestive heart failure. IV Lasix. Echocardiogram. Atrial fibrillation with controlled ventricular rate, was treated with IV amiodarone and IV Cardizem. Amiodarone discontinued. Continue Cardizem for now if blood pressure tolerates. Transfer to by mouth Cardizem once able. CAD, first troponin was negative. Continue outpatient medical therapy. History of smoking Thank you for your consultation. Please call me if you have any questions. Edwina Cohen MD, FACP, FACC, FSCAI, FHRS, CCDS Interventional Cardiology Cardiac Electrophysiology Vascular Medicine and Endovascular Interventions Focused Exam Lactate Level 10/06/19 21:20: Lactic Acid Level 1.47 Faby COHEN MD Oct 08, 2019 11:16
[2019-10-08] MEDS: NS IV 1000 ML 1,000 ML IV SCH (11:38)
--- NOTE | 2019-10-08 12:14 | Progress Note - Hospitalist ---
Subjective HPI/CC On Admission Date Seen by Provider: Oct 08, 2019 Time Seen by Provider: 11:00 CC: Respiratory distress with AF w/RVR HPI: This is a 74yoWF clinic patient of mine with h/o former smoking with COPD O2 dependent at night, AF on OAC, HTN. HLP, RA and denial about severity of medical issues who presented to the ER last night with increased work of breathing and was found to have AECOPD with AF w/RVR and volume overload. Patient was placed on biPAP. She originally went to Urgent Care and was given an abx there for bronchitis and then when she worsened she came to ER. I did tell her that I would recommend her to come to ER instead of urgent cares int he future due to the severity of her medical problems and those facilities are limited in what they can do for her. Subjective/Events-last exam Patient transferring to fourth floor We will discontinue catheter More alert today Patient and are both a bit confused at times the nurse reports Output has been much better today and last night Bowels are moving she reports Son at bedside he appears to be tearful at times Patient overall has very complex medical problems and will try to help her become compliant with inhalers and all the rest of her medications Review of Systems General: Fatigue Pulmonary: Dyspnea, Cough 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: Confusion Focused Exam Lactate Level 10/06/19 21:20: Lactic Acid Level 1.47 Objective Exam Vital Signs Vital Signs Date Time Temp Pulse Resp B/P (MAP) Pulse Ox O2 Delivery O2 Flow Rate FiO2 10/08/19 16:32 35.9 74 20 117/74 (88) 94 Nasal Cannula 3.50 10/07/19 16:00 40 Capillary Refill : Less Than 3 Seconds General Appearance: No Apparent Distress, WD/WN, Chronically ill Respiratory: Chest Non Tender, Lungs Clear, No Accessory Muscle Use, No Respiratory Distress, Decreased Breath Sounds Cardiovascular: Regular Rate, Rhythm, No Edema, No Gallop, No JVD, No Murmur, Normal Peripheral Pulses Neurologic/Psychiatric: Alert, Oriented x3, No Motor/Sensory Deficits, Normal Mood/Affect Results/Procedures Lab Laboratory Tests 10/08/19 03:09 Patient resulted labs reviewed. Assessment/Plan Assessment and Plan Assess & Plan/Chief Complaint Assessment: Acute respiratory failure requiring biPAP PNA AF w/RVR OAC with Eliquis COPD O2 dependence at home at night RA Denial about her medical condition severity AECHF Plan: OAC Amio IV abx IV steroids Diagnosis/Problems Diagnosis/Problems (1) LLL pneumonia Status: Acute (2) Hypoxia Status: Chronic (3) Atrial fibrillation with RVR Status: Acute (4) COPD exacerbation Status: Acute (5) EMPHYSEMA, UNSPECIFIED Status: Chronic (6) Atrial fibrillation with rapid ventricular response Status: Acute (7) Noncompliance with medication regimen Status: Chronic (8) Acute heart failure Status: Acute (9) Fluid overload Status: Acute Clinical Quality Measures DVT/VTE Risk/Contraindication: Risk Factor Score Per Nursin RFS Level Per Nursing on Admit: 3=High JEROME NEAL DO Oct 08, 2019 12:14
[2019-10-08] MEDS: MELATONIN 3 MG TABLET PO PRN (19:55)
[2019-10-09] VITALS: BP 138/93
[2019-10-09] MEDS: RT-ALBUTEROL/IPRATROPIUM 3 ML (DUONEB) VIAL INH SCH ×6 (02:08→21:55)
[2019-10-09 04:00] VITALS: BP 117/80
[2019-10-09] MEDS: NS IV 1000 ML 1,000 ML IV SCH (04:05)
[2019-10-09] MEDS: PIPERACILLIN/TAZO 4.5 GM/NS 100 ML IV SCH ×6 (04:52→20:08)
[2019-10-09 05:28] LABS: BASOPHILS % (AUTO) 0 % (0-10); EOSINOPHILS % (AUTO) 0 % (0-10); HEMATOCRIT 36 % (35-52); HEMOGLOBIN 11.3 G/DL (11.5-16.0); LYMPHOCYTES # (AUTO) 0.4 X 10^3 (1.0-4.0); LYMPHOCYTES % (AUTO) 3 % (12-44); MEAN CORPUSCULAR HEMOGLOBIN 29 PG (25-34); MEAN CORPUSCULAR HGB CONC 31 G/DL (32-36); MEAN CORPUSCULAR VOLUME 91 FL (80-99); MEAN PLATELET VOLUME 10.8 FL (7.4-10.4); MONOCYTES # (AUTO) 0.6 X 10^3 (0.0-1.0); MONOCYTES % (AUTO) 4 % (0-12); NEUTROPHILS # (AUTO) 13.7 X 10^3 (1.8-7.8); NEUTROPHILS % (AUTO) 93 % (42-75); PLATELET COUNT 343 10^3/uL (130-400); WHITE BLOOD COUNT 14.7 10^3/uL (4.3-11.0)
[2019-10-09] MEDS: methylPREDNISolone 40 MG/ML (Solu-MEDROL) VIAL IV SCH ×3 (05:30→16:48)
[2019-10-09 05:56] LABS: CALCIUM 8.7 MG/DL (8.5-10.1); CREATININE SERUM 1.47 MG/DL (0.60-1.30); MAGNESIUM 1.8 MG/DL (1.6-2.4); PHOSPHORUS 4.3 MG/DL (2.3-4.7); POTASSIUM 3.6 MMOL/L (3.6-5.0)
[2019-10-09] MEDS: RT-BUDESONIDE NEBS 0.5 MG/2ML (PULMICORT) AMP INH SCH ×2 (06:54→21:56)
[2019-10-09 08:00] VITALS: BP 151/79
[2019-10-09] MEDS: APIXABAN 5 MG (ELIQUIS) TABLET PO SCH ×2 (09:06→20:10)
[2019-10-09] MEDS: CARVEDILOL 6.25 MG (COREG) TAB PO SCH ×2 (09:06→20:09)
[2019-10-09] MEDS: FUROSEMIDE 40 MG/4 ML INJ (LASIX) IVP SCH (09:06)
[2019-10-09] MEDS: SENNA W/DOCUSATE (SENOKOT S) TABLET PO SCH ×2 (09:10→20:10)
[2019-10-09] MEDS: DILTIAZEM 120 MG (CARDIZEM CD) CAP PO SCH (09:10)
--- NOTE | 2019-10-09 10:10 | Progress Note ---
Subjective Date Seen by a Provider: Oct 09, 2019 Time Seen by a Provider: 09:45 Subjective/Events-last exam Pt doing well Confusion requiring bed alarm and telesitter Family member at the bedside Pt reports she is not confused Discontinue the talbot Lasix IV given and noted major diuresis Creatine 1.4 increase from normal Pt wants to go home but likely will require until tomorrow Will have speech therapy evaluated her slum score Review of Systems General: Fatigue, Malaise Pulmonary: Dyspnea 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: Confusion Focused Exam Lactate Level 10/06/19 21:20: Lactic Acid Level 1.47 Objective Exam Last Set of Vital Signs Vital Signs Date Time Temp Pulse Resp B/P (MAP) Pulse Ox O2 Delivery O2 Flow Rate FiO2 10/09/19 08:00 36.1 79 18 151/79 (103) 99 Nasal Cannula 3.50 10/07/19 16:00 40 Capillary Refill : Less Than 3 Seconds I&O Intake and Output 10/09/19 00:00 Intake Total 1440 ml Output Total 1750 ml Balance -310 ml Intake Oral 1200 ml IV Total 240 ml Output Urine Total 1750 ml # Bowel Movements 1 General: Alert, Oriented X3, Cooperative, No Acute Distress HEENT: Atraumatic, PERRLA Neck: Supple, No JVD, No Thyromegaly Lungs: Clear to Auscultation, Normal Air Movement Heart: Regular Rate, Normal S1, Normal S2, No Murmurs Abdomen: Normal Bowel Sounds, Soft, No Tenderness, No Hepatosplenomegaly, No Ma sses Extremities: No Clubbing, No Cyanosis, No Edema, Normal Pulses, No Tenderness/Swelling Skin: No Rashes, No Breakdown, No Significant Lesion Neuro: Normal Gait, Normal Speech, Strength at 5/5 X4 Ext, Normal Tone Psych/Mental Status: Mental Status NL, Mood NL, Other (Slightly confused ) Results Lab Laboratory Tests 10/09/19 04:33: White Blood Count 14.7H, Red Blood Count 3.95L, Hemoglobin 11.3L, Hematocrit 36, Mean Corpuscular Volume 91, Mean Corpuscular Hemoglobin 29, Mean Corpuscular Hemoglobin Concent 31L, Red Cell Distribution Width 16.0H, Platelet Count 343, Mean Platelet Volume 10.8H, Neutrophils (%) (Auto) 93H, Lymphocytes (%) (Auto) 3L, Monocytes (%) (Auto) 4, Eosinophils (%) (Auto) 0, Basophils (%) (Auto) 0, Neutrophils # (Auto) 13.7H, Lymphocytes # (Auto) 0.4L, Monocytes # (Auto) 0.6, Eosinophils # (Auto) 0.0, Basophils # (Auto) 0.0, Sodium Level 139, Potassium Level 3.6, Chloride Level 106, Carbon Dioxide Level 19L, Anion Gap 14, Blood Urea Nitrogen 42H, Creatinine 1.47H, Estimat Glomerular Filtration Rate 35, BUN/Creatinine Ratio 29, Glucose Level 167H, Calcium Level 8.7, Phosphorus Level 4.3, Magnesium Level 1.8 Microbiology 10/07/19 MRSA Screen - Final, Complete MRSA not isolated 10/07/19 Urine Culture - Final, Complete NO GROWTH 10/06/19 Blood Culture - Preliminary, Resulted No growth Assessment/Plan Assessment/Plan Assess & Plan/Chief Complaint Assessment: AF with RVR Respiratory insufficiency requiring bipap AECOPD Acute renal insufficiency Confusion Rheumatoid Arthritis Plan: Monitor labs Oxygen Nebs Speech therapy to evaluate confusion with slum score Monitor closely Diagnosis/Problems Diagnosis/Problems (1) LLL pneumonia Status: Acute (2) Hypoxia Status: Chronic (3) Atrial fibrillation with RVR Status: Acute (4) COPD exacerbation Status: Acute (5) EMPHYSEMA, UNSPECIFIED Status: Chronic (6) Atrial fibrillation with rapid ventricular response Status: Acute (7) Noncompliance with medication regimen Status: Chronic (8) Acute heart failure Status: Acute (9) Fluid overload Status: Acute Clinical Quality Measures DVT/VTE Risk/Contraindication: Risk Factor Score Per Nursin RFS Level Per Nursing on Admit: 3=High JEROME NEAL DO Oct 09, 2019 10:10
--- NOTE | 2019-10-09 11:55 | Physical Therapy Evaluation ---
PT Evaluation-General Medical Diagnosis Admission Date Oct 06, 2019 at 23:17 Medical Diagnosis: A-fib with RVR/COPD exacerbation Onset Date: Oct 06, 2019 Therapy Diagnosis Therapy Diagnosis: debility/weakness Height/Weight Height (Feet): 5 Height (Inches): 4.00 Weight (Pounds): 170 Weight (Ounces): 0 Precautions Precautions/Isolations: Fall Prevention, Standard Precautions, Pressure Ulcer Weight Bear Status Right Lower Extremity: Right Full Weight Bearing Left Lower Extremity: Left Full Weight Bearing Referral Physician: Ammon Reason for Referral: Evaluation/Treatment Medical History Pertinent Medical History: Atrial Fib, CAD, COPD, HTN, [place], Rheumatoid Arthritis Current History ER secondary to failed conservative treatment for SOA Reviewed History: Yes Social History Home: Single Level Current Living Status: Spouse Prior Prior Level of Function SCALE: Activities may be completed with or without assistive devices. 4-Zgvrhholxj-vzrraof completes the activity by him/herself with no assistance from a helper. 5-Set-up or Clean-up Assistance-helper sets up or cleans up; patient completes activity. [place] assists only prior to or following the activity. 4-Supervision or Touching Assistance-helper provides verbal cues and/or t ouching/steadying and/or contact guard assistance as patient completes activity. Assistance may be provided throughout the activity or intermittently. 3-Partial/Moderate Assistance-helper does LESS THAN HALF the effort. [place] lifts, holds or supports trunk or limbs, but provides less than half the effort. 2-Substantial/Maximal Assistance-helper does MORE THAN HALF the effort. [place] lifts or holds trunk or limbs and provides more than half the effort. 2-Hcjpytdor-gsrrhp does ALL the effort. Patient does none of the effort to complete the activity. Or, the assistance of 2 or more helpers is required for the patient to complete the activity. If activity was not attempted, code reason: 7-Patient Refused. 9-Not Applicable-not attempted and the patient did not perform the activity before the current illness, exacerbation or injury. 10-Not Attempted due to Environmental Limitations-(lack of equipment, weather restraints, etc.). 88-Not Attempted due to Medical Conditions or Safety Concerns. Bed Mobility: 6 Transfers (B,C,W/C): 6 Gait: 6 Stairs: 6 Indoor Mobility (Ambulation): Independent Stairs: Independent Prior Devices Use: None PT Evaluation-Current Subjective Patient agrees to PT. Appears to be very confused and slightly agitated with questions. Noted telesitter in place in room. Pain Numeric Pain Scale: 0-No Pain Location: No Pain Reported Objective Patient Orientation: Confused Attachments: IV ROM/Strength ROM Lower Extremities bilateral LE WFL Strength Lower Extremities 4-/5 grossly bilateral LE Integumentary/Posture Integumentary refer to nursing notes Bowel Incontinence: No Bladder Incontinence: No Posture WFL Neuromuscular (Tone, Coordination, Reflexes) grossly intact Sensory Vision: Functional Hearing: Functional Sensation Right Lower Extremit: Intact Sensation Left Lower Extremity: Intact Transfers Roll Left to Right (QC): 4 Sit to Lying (QC): 4 Lying to Sitting/Side of Bed(Q: 4 Sit to Stand (QC): 4 Chair/Vag-fx-Iqvhg Xfer(QC): 4 Toilet Transfer: 4 Gait Does the Patient Walk?: Yes Mode of Locomotion: Walk Anticipated Mode of Locomotion: Walk Walk 10 feet (QC): 4 Walk 50 ft with 2 Turns(QC): 4 Walk 150 ft (QC): 4 Walking 10ft/uneven surface-QC: 4 Distance: 225' Gait Assistive Device: FWW Comments/Gait Description Patient has not used FWW prior to this session. Patient required assistance to negotiate FWW safely due to patient is easily distracted and requires redirection to remain on task. Balance Sitting Static: Normal Sitting Dynamic: Normal Standing Static: Fair Standing Dynamic: Fair Assessment/Needs 74 y.o. female, will benefit from skilled PT to address functional strength and mobility to improve current LOF to safely return to home with family at maximum LOF. Rehab Potential: Fair PT Client Application Support Engineer Goals Nursing Home Goals PT Client Application Support Engineer Goals Time Frame: Oct 21, 2019 Roll Left & Right (QC): 6 Sit to Lying (QC): 6 Lying-Sitting on Side/Bed(QC): 6 Sit to Stand (QC): 6 Chair/Lav-il-Jnpli Xfer(QC): 6 Toilet Transfer (QC): 6 Car Transfer (QC): 6 Does the Patient Walk: Yes Walk 10 feet (QC): 6 Walk 50ft with 2 Turns (QC): 6 Walk 150 ft (QC): 6 Walking 10ft on Uneven Surface: 6 1 Step (curb) (QC): 6 4 Steps (QC): 6 12 Steps (QC): 9 Does the Pt use WC or Scooter?: No PT Plan Problem List Problem List: Activity Tolerance, Functional Strength, Safety, Balance, Gait, Transfer, Bed Mobility Treatment/Plan Treatment Plan: Continue Plan of Care Treatment Plan: Bed Mobility, Education, Functional Activity Rex, Functional Strength, Gait, Safety, Therapeutic Exercise, Transfers Treatment Duration: Oct 21, 2019 Frequency: 6 times per week Estimated Hrs Per Day: .25 hour per day Patient and/or Family Agrees t: Yes Time/GCodes Time In: 1130 Time Out: 1146 Total Billed Treatment Time: 16 Total Billed Treatment 1 visit EVMod 16 min MERT KASPER PT Oct 09, 2019 11:55
[2019-10-09] MEDS ORDERED: FURO20TA4 PO (11:58)
[2019-10-09] MEDS ORDERED: CITA20TA12 PO (11:58)
[2019-10-09 12:00] VITALS: BP 128/84
[2019-10-09] MEDS ORDERED: ATOR20TA66 PO (12:37)
--- NOTE | 2019-10-09 12:37 | NUR ---
Inpatient rehab evaluation Received order to evaluate patient for admission to the inpatient rehab unit. Met with HORACIO Fox who had just met with patient and her family. The patient does not want to stay in the hospital any longer, and she is angry that she was not discharged home today. The patient's and two daughters report they are willing to help the patient as they are able. Home health care was discussed and they are considering utilizing that at discharge. Anticipate patient will discharge home today or tomorrow. Thank you for the referral.
[2019-10-09] MEDS ORDERED: FERR300S PO (12:40)
[2019-10-09] MEDS ORDERED: MULT-974 PO (12:40)
--- NOTE | 2019-10-09 12:45 | NUR ---
SPOKE WITH THE PT, WENT THRU THE EXT MED HIST AND CALLED [facility] TO COMPLETE THE MED REC. PT ADMITTED THAT SHE DOES NOT TAKE HER MEDS ALL THE TIME AND IS WANTING TO START A BETTER ROUTINE. ALL HER HOME MEDS EXCEPT HER CELEXA ARE A MONTH PAST DUE ON THE REFILLS. I LEFT THEM ON THE MEDS REC SINCE SHE SAID SHE DOES SOMETIMES TAKE THEM CORRECTLY. PT SAYS SHE IS NO LONGER TAKING LEVOTHYROXINE. OTC MEDS: FLAXSEED [employer] LIQUID VIT D LIQUID IRON INSTAFLEX
--- NOTE | 2019-10-09 13:20 | Occupational Therapy Eval ---
OT Evaluation-General/PLF Medical Diagnosis Admission Date Oct 06, 2019 at 23:17 Medical Diagnosis: A-fib with RVR/COPD exacerbation Onset Date: Oct 06, 2019 Therapy Diagnosis Therapy Diagnosis: impaired ADLs and functional mobility Height/Weight Height (Feet): 5 Height (Inches): 4.00 Weight (Pounds): 170 Weight (Ounces): 0 Precautions Precautions/Isolations: Fall Prevention, Standard Precautions, Pressure Ulcer Safety Interventions: Reorient-PRN Referral Physician: Ammon Referral Reason: Evaluation/Treatment Medical History Pertinent Medical History: Atrial Fib, Arthritis, CAD, COPD, HTN, [place], Rheumatoid Arthritis Additional Medical History COPD, O2 dependent at night, AF on OAC, HTN, HLP, RA, CAD, Afib, heart attack, high cholesterol, CHF Current History Per H&P: "This is a 74yoWF clinic patient of mine with h/o former smoking with COPD O2 dependent at night, AF on OAC, HTN. HLP, RA and denial about severity of medical issues who presented to the ER last night with increased work of breathing and was found to have AECOPD with AF w/RVR and volume overload. Patient was placed on biPAP. She originally went to Urgent Care and was given an abx there for bronchitis and then when she worsened she came to ER. I did tell her that I would recommend her to come to ER instead of urgent cares int he future due to the severity of her medical problems and those facilities are limited in what they can do for her." Reviewed History: Yes Social History Home: Single Level Current Living Status: Spouse ADL-Prior Level of Function SCALE: Activities may be completed with or without assistive devices. 9-Toofwnaumf-geprtxu completes the activity by him/herself with no assistance from a helper. 5-Set-up or Clean-up Assistance-helper sets up or cleans up; patient completes activity. [place] assists only prior to or following the activity. 4-Supervision or Touching Assistance-helper provides verbal cues and/or touching/steadying and/or contact guard assistance as patient completes activity. Assistance may be provided throughout the activity or intermittently. 3-Partial/Moderate Assistance-helper does LESS THAN HALF the effort. [place] lifts, holds or supports trunk or limbs, but provides less than half the effort. 2-Substantial/Maximal Assistance-helper does MORE THAN HALF the effort. [place] lifts or holds trunk or limbs and provides more than half the effort. 1-Dtazeadnh-sjxdqm does ALL the effort. Patient does none of the effort to complete the activity. Or, the assistance of 2 or more helpers is required for the patient to complete the activity. If activity was not attempted, code reason: 7-Patient Refused. 9-Not Applicable-not attempted and the patient did not perform the activity before the current illness, exacerbation or injury. 10-Not Attempted due to Environmental Limitations-(lack of equipment, weather restraints, etc.). 88-Not Attempted due to Medical Conditions or Safety Concerns. ADL PLOF Comments Pt reports being independent with all ADLs prior to hospitalization. She denies needing assistance from her spouse. Pt denies needing a walker or a cane but indicates she has one at home available to her if needed. Self Care: Independent Functional Cognition: Independent DME/Equipment: Shower (walkin) DME/Equipment Comments Pt denies using walker/cane prior to hospitalization, states she has everything at home that she needs OT Current Status Subjective Pt upright in recliner eating lunch. Agreeable to OT evaluation. Mental Status/Objective Patient Orientation: Person, Place, Time, Situation Attachments: IV Current Glasses/Contacts: Yes Hearing Aids: No Dentures/Partials: Yes Hand Dominance: Right Upper Extremity ROM unable to fully assess, she did not perform ROM screen when asked. She was able to bring food to mouth using utensil. Upper Extremity Coordination WFL Upper Extremity Sensation pt denies tingling/numbness Upper Extremity Strength grossly 3/5 MMT ADL-Treatment Eating (QC): 6 On/Off Footwear (QC): 2 (based on clinical reasoning, pt would require max assist with task due to weakness and dizziness.) Other Treatments Pt seated in recliner eating lunch, reports no difficulty with eating. She is able to chop food, and bring food to her mouth. Pt provides information about P LOF and home set up, stating she feels like she is a lot weaker since coming to the hospital. She reports she also has really bad vertigo and dizziness, denying being dizzy at this time. OT educated pt on plan of care while she is in the hospital. Post OT session, pt seated upright in recliner, eating lunch with call light in reach and all needs met. Education OT Patient Education: Correct positioning, Energy conservation, Modified ADL techniques, Progress toward Goal/Update tx plan, Purpose of tx/functional activities Teaching Recipient: Patient Teaching Methods: Discussion Response to Teaching: Verbalize Understanding OT Snf Goals Snf Goals Time Frame: Oct 20, 2019 Eating (QC): 6 Oral Hygiene (QC): 6 Toileting Hygiene (QC): 6 Shower/Bathe Self (QC): 6 Upper Body Dressing (QC): 6 Lower Body Dressing (QC): 6 On/Off Footwear (QC): 6 Additional Goals: 1-Demonstrate ADL Tasks, 2-Verbalize Understanding, 3- ImproveStrength/Rex 1=Demonstrate adherence to instructed precautions during ADL tasks. 2=Patient will verbalize/demonstrate understanding of assistive devic es/modifications for ADL. 3=Patient will improve strength/tolerance for activity to enable patient to perform ADL's. OT Education/Plan Problem List/Assessment Assessment: Decreased Activ Tolerance, Decreased UE Strength, Impaired I ADL's, Impaired Self-Care Skills Discharge Recommendations Plan/Recommendations: Continue POC Treatment Plan/Plan of Care Treatment,Training & Education: Yes Patient would benefit from OT for education, treatment and training to promote independence in ADL's, mobility, safety and/or upper extremity function for ADL's. Plan of Care: ADL Retraining, Caregiver Training, Functional Mobility Treatment Duration: Oct 20, 2019 Frequency: 5 times per week Estimated Hrs Per Day: .25 hour per day Agreement: Yes Rehab Potential: Fair Time/GCodes Start Time: 12:57 Stop Time: 13:07 Total Time Billed (hr/min): 10 Billed Treatment Time 1, SAY HENLEY OT Oct 09, 2019 13:20
--- NOTE | 2019-10-09 13:22 | ST Cognitive Linguistic Eval ---
Speech Evaluation-General Medical Diagnosis A-fib with RVR/COPD exacerbation Onset Date: Oct 06, 2019 Therapy Diagnosis Therapy Diagnosis: Cognitive-communication Referral Referring Physician: Dr. Verde Medical History Pertinent Medical History: Atrial Fib, CAD, COPD, HTN, [place], Rheumatoid Arthritis Reviewed History: Yes Social History Current Living Status: Spouse Speech PLF-Current Status Prior Level of Function Patient lives at home with her spouse where she was assisted as needed for her daily needs. Subjective Patient stated throughout the evaluation that she was not confused, just tired. Patient did complete the SLUMS without difficulty. Language Eval: Auditory Comprehends Simple Yes/No Ques: Functional Indent/Objects Multiple Rao: Functional Ident/Pics in Multiple Rao: Functional Follows 1-Step Commands: Functional Follows Complex Directions: Mild Follows General Conversations: Functional Language Eval: Verbal Language Completes Spontaneous Greeting: Functional Produces Auto, Serial Info: Functional Imitates Simple Words/Phrases: Functional Word Finding: Mild Requests Basic Needs: Functional States Basic Personal Info: Functional Expresses Complex Ideas: Mild Objective Cognitive Domain Attention: Mild Memory: Mild Problem Solving: Mild Executive Functions: Mild Visuospatial Skills: Mild Composite Severity Rating: Mild Clock Drawing Severity Rating: Mild Objective Formal/Standardized Tests [facility] Mental Status ([facility]) Results 16/30, moderate dementia level of function Oral Motor/Speech Production Within Normal Limits Impression The patient is a 74 year old female who was admitted to the hospital due to COPD exacerbation. The patient scored an 18/30, which falls in the moderate dementia level of function. Patient stated she is not confused but just tired. She will be receiving ST for improving cognitive function until the time of discharge. Speech Short Term Goals Short Term Goals Short Term Goals 1) Patient will complete memory tasks related to self and daily needs at 80% or greater with minimal cuing. 2) Patient will complete problem solving tasks related to self and daily needs at 80% or greater with minimal cuing. 3) Patient will complete safety awareness tasks related to self and daily needs at 80% or greater with minimal cuing. Speech Group Home Goals Machine Set Up Operator Goals Patient will improve cognitive-communication necessary for safety and daily living tasks with minimal assist. Speech-Plan Patient/Family Goals Patient/Family Goals: Patient plans on returning home with her upon hospital discharge. Treatment Plan Speech Therapy Treatment Plan: Continue Plan of Care Patient will receive ST services until discharge. Treatment Duration: Oct 13, 2019 Frequency: 3 times per week Estimated Hrs Per Day: .25 hour per day Rehab Potential: Fair Barriers to Learning: Patient is within the moderate level of dementia function Pt/Family Agrees to Plan: Yes Safety Risks/Education Teaching Recipient: Patient, Family, Significant Other Teaching Methods: Demonstration, Discussion Response to Teaching: Verbalize Understanding, Return Demonstration, Reinforcement Needed Education Topics Provided: Safety within her room and communication of wants/needs Time Speech Therapy Time In: 10:30 Speech Therapy Time Out: 10:45 Total Billed Time: 15 Billed Treatment Time 1, SPSNDYUE [place] Oct 09, 2019 13:22
--- NOTE | 2019-10-09 14:04 | NUR ---
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 In recent years she had a brother and sister , which she is still grieving. She welcomed prayer and expressed appreciation for our visit.
--- NOTE | 2019-10-09 14:21 | Physician Query Clarification ---
PQ-CHF Specificity Admission Date: Oct 06, 2019 at 23:17 Discharge Date: The medical record reflects the following clinical scenario: History/Risk Factors: Acute respiratory failure Volume overload Hypertension Clinical Findings:BNP 432.7. 10/06/19 chest xray-The heart is enlarged, perhaps greater than on prior. There are at least small pleural effusion, greater right than left. There is vascular congestion and presumed pulmonary edema. The pattern suggests congestive failure. Treatment:Amiodarone HCI IV, 40 IV lasix. Question: Can you further specify the type of CHF per the clinical indicators above? Please document a response in the Progress Notes or Discharge Summary. 1. Acuity: Acute, Chronic or Acute on Chronic 2. Type: Systolic, Diastolic or Systolic & Diastolic 3. Unspecified: CHF cannot be further specified regarding type or acuity 4. Other, with explanation of clinical findings 5. Clinically undetermined, no explanation for clinical findings PHYSICIAN RESPONSE Acuity: Acute on Chronic Type: Systolic & Diastolic Please remember a lack of response to the above will prompt a phone page by CDI/Coding staff. In responding to this query, please exercise your independent professional judgment. The purpose of this communication is to more accurately reflect the complexity of your patients condition. The fact that a question is asked does not imply that any particular answer is desired or expected. Thank you for your timely response to this clarification. Requestors name: Reba Jain [facility] Phone # ext [phone] or [phone] THIS PHYSICIAN QUERY FORM IS A PERMANENT PART OF THE MEDICAL RECORD REBA JAIN Oct 09, 2019 14:21 Faby COHEN MD Oct 11, 2019 14:32
--- NOTE | 2019-10-09 14:38 | Physician Query Clarification ---
PQ-Conflicting Diagnosis Admission/Discharge Admission Date: Oct 06, 2019 at 23:17 Discharge Date: The medical record reflects the following clinical scenario: History/Risk Factors: Acute Respiratory Failure Pneumonia Acute CHF Clinical Findings: WBC 17.4, T 36.9, Pulse 146, Resp 39, BP 136/103, Lactic acid 1.47 and Blood cultures- no growth. Treatment: IV Piperacillin Sod/Taxobactam Sod 4.5 gm/Sodium Chloride. Question: Do you agree with the impression possible Sepsis diagnosis/condition per consulting physician, Dr. Bermudez? Please document a response in Progress Note or Discharge Summary. 1. Yes 2. No 3. Other, with explanation of clinical findings 4. Clinically undetermined, no explanation for clinical findings. PHYSICIAN RESPONSE Do you agree w/Consulting Dx?: Yes Please remember a lack of response to the above will prompt a phone page by CDI/Coding staff. In responding to this query, please exercise your independent professional judgment. The purpose of this communication is to more accurately reflect the complexity of your patients condition. The fact that a question is asked does not imply that any particular answer is desired or expected. Thank you for your timely response to this clarification. Requestors name: Reba Velez [facility] Phone # ext [phone] or [phone] THIS PHYSICIAN QUERY FORM IS A PERMANENT PART OF THE MEDICAL RECORD REBA VELEZ Oct 09, 2019 14:38 JEROME NEAL DO Oct 09, 2019 17:29
[2019-10-09 16:10] VITALS: BP 119/62
--- NOTE | 2019-10-09 16:44 | NUR ---
CM/SS: Visited with pt about discharge plan , per consult. Plan: Pt wanted to go home today, however she reports staff think she is confused. Pt shares she is dizzy, and sometimes people who are dizzy are confused. Pt to be discharged on tomorrow. Pt indicated she did not need any other services. When asked about home care she indicated she did not need that. Summary: Pt wanted to go home on today. Pt was encouraged as this worker was present to discuss her discharge plan. Pt reports she has her and daughters to help. She does not need anyone else at their home to help. Pt is able to introduce her daughter and grand-daughter however seems delayed in her coming up with grand-daughters name. Daughter shares that pt may be more confused when not wearing oxygen. Pt shares she wears it when she feels like she needs it, and mainly wears it at night. Pt is encouraged that she can be home for Rg. Daughter follows this worker out of room to say that pt has had some struggles recently. Daughter suggested home health care, however this worker shared that pt reported she did not need/want that. Daughter reports she will talk to her, and usually she will listen. This worker will follow up as to final plan for discharge.
--- NOTE | 2019-10-09 20:01 | Cardiology Progress Note ---
Cardiology SOAP Progress Note Subjective: No cardiac complaints. Objective: I&O/Vital Signs 10/09/19 10/09/19 10/09/19 10/09/19 11:21 12:00 12:41 15:19 Temp 36.0 Pulse 79 81 Resp 20 B/P (MAP) 128/84 (99) Pulse Ox 95 95 91 O2 Delivery Nasal Cannula Room Air Nasal Cannula O2 Flow Rate 4.00 4.00 10/09/19 10/09/19 16:10 18:46 Temp 36.0 Pulse 75 77 Resp 20 B/P (MAP) 119/62 (81) Pulse Ox 95 O2 Delivery Room Air 10/09/19 00:00 Intake Total 1120 ml Output Total 1100 ml Balance 20 ml Weight (Pounds): 170 Weight (Ounces): 0 Weight (Calculated Kilograms): 77.271869 Constitutional: appears stated age; No apparent distress; well-developed, well-nourished Respiratory: chest is bilaterally symmetric, lungs clear to auscultation Cardiovascular: irregularly irregular, S1 and S2 Gastrointestional: soft, audible bowel sounds; No spleenomegaly Extremities: normal range of motion, non-tender, normal inspection, pedal edema; No clubbing, No cyanosis, No significant edema Neurologic/Psychiatric: no motor/sensory deficits, alert, normal mood/affect, oriented x 3, power is 5/5 both on sides Skin: normal color; No rash, No ulcerations Results/Procedures: Labs Laboratory Tests 10/09/19 04:33: White Blood Count 14.7H, Red Blood Count 3.95L, Hemoglobin 11.3L, Hematocrit 36, Mean Corpuscular Volume 91, Mean Corpuscular Hemoglobin 29, Mean Corpuscular Hemoglobin Concent 31L, Red Cell Distribution Width 16.0H, Platelet Count 343, Mean Platelet Volume 10.8H, Neutrophils (%) (Auto) 93H, Lymphocytes (%) (Auto) 3L, Monocytes (%) (Auto) 4, Eosinophils (%) (Auto) 0, Basophils (%) (Auto) 0, Neutrophils # (Auto) 13.7H, Lymphocytes # (Auto) 0.4L, Monocytes # (Auto) 0.6, Eosinophils # (Auto) 0.0, Basophils # (Auto) 0.0, Sodium Level 139, Potassium Level 3.6, Chloride Level 106, Carbon Dioxide Level 19L, Anion Gap 14, Blood Urea Nitrogen 42H, Creatinine 1.47H, Estimat Glomerular Filtration Rate 35, BUN/Creatinine Ratio 29, Glucose Level 167H, Calcium Level 8.7, Phosphorus Level 4.3, Magnesium Level 1.8 Microbiology 10/07/19 MRSA Screen - Final, Complete MRSA not isolated 10/07/19 Urine Culture - Final, Complete NO GROWTH 10/06/19 Blood Culture - Preliminary, Resulted No growth A/P: Assessment/Dx: Possible sepsis, COPD, Acute respiratory failure, Atrial fibrillation with rapid ventricular rate, CAD, History of smoking Plan: Possible sepsis, leukocytosis with significantly elevated CRP. Was given a dose of antibiotic in the ER. Will defer to the primary team for further management. COPD, defer treatment to Dr. Lin and Dr. Verde. Acute respiratory failure, likely multifactorial with COPD and congestive heart failure. IV Lasix. Echocardiogram. Atrial fibrillation with controlled ventricular rate, was treated with IV amiodarone and IV Cardizem. Amiodarone discontinued. Continue Cardizem for now if blood pressure tolerates. Transfer to by mouth Cardizem once able. CAD, first troponin was negative. Continue outpatient medical therapy. History of smoking Thank you for your consultation. Please call me if you have any questions. Edwina Cohen MD, FACP, FACC, FSCAI, FHRS, CCDS Interventional Cardiology Cardiac Electrophysiology Vascular Medicine and Endovascular Interventions Focused Exam Lactate Level 10/06/19 21:20: Lactic Acid Level 1.47 Faby COHEN MD Oct 09, 2019 20:00
[2019-10-09] MEDS: ALPRAZolam 0.25 MG (XANAX) TAB PO PRN (20:09)
[2019-10-09 20:15] VITALS: BP 148/83
--- NOTE | 2019-10-09 23:00 | NUR ---
PTS DAUGHTER, PRATEEK, CAME BY TO VISIT. SHE LEFT SHE GAVE THIS RN HER PHONE NUMBERS [phone] & [phone]. PTS OTHER DAUGHTER AND HER ARE ALREADY LISTED ON STATUS BAR.
[2019-10-10 00:05] VITALS: BP 155/92
[2019-10-10] MEDS: ALPRAZolam 0.25 MG (XANAX) TAB PO PRN (00:19)
[2019-10-10] MEDS: methylPREDNISolone 40 MG/ML (Solu-MEDROL) VIAL IV SCH ×2 (00:23→05:30)
[2019-10-10] MEDS: RT-ALBUTEROL/IPRATROPIUM 3 ML (DUONEB) VIAL INH SCH ×3 (02:48→11:44)
[2019-10-10 04:00] VITALS: BP 152/104
[2019-10-10 05:04] LABS: BASOPHILS % (AUTO) 0 % (0-10); EOSINOPHILS % (AUTO) 0 % (0-10); HEMATOCRIT 38 % (35-52); LYMPHOCYTES # (AUTO) 0.4 X 10^3 (1.0-4.0); LYMPHOCYTES % (AUTO) 4 % (12-44); MEAN CORPUSCULAR HEMOGLOBIN 29 PG (25-34); MEAN CORPUSCULAR HGB CONC 32 G/DL (32-36); MEAN CORPUSCULAR VOLUME 91 FL (80-99); MEAN PLATELET VOLUME 10.7 FL (7.4-10.4); MONOCYTES # (AUTO) 0.4 X 10^3 (0.0-1.0); MONOCYTES % (AUTO) 4 % (0-12); NEUTROPHILS # (AUTO) 10.5 X 10^3 (1.8-7.8); NEUTROPHILS % (AUTO) 93 % (42-75); PLATELET COUNT 342 10^3/uL (130-400); RED CELL DISTRIBUTION WIDTH 15.5 % (10.0-14.5); WHITE BLOOD COUNT 11.3 10^3/uL (4.3-11.0)
[2019-10-10] MEDS: PIPERACILLIN/TAZO 4.5 GM/NS 100 ML IV SCH ×4 (05:29→13:00)
[2019-10-10 05:35] LABS: ALBUMIN 3.3 GM/DL (3.2-4.5); BILIRUBIN,TOTAL 0.7 MG/DL (0.1-1.0); CALCIUM 9.2 MG/DL (8.5-10.1); CREATININE SERUM 1.07 MG/DL (0.60-1.30); POTASSIUM 3.6 MMOL/L (3.6-5.0); TOTAL PROTEIN 6.1 GM/DL (6.4-8.2)
[2019-10-10] MEDS: RT-BUDESONIDE NEBS 0.5 MG/2ML (PULMICORT) AMP INH SCH (07:54)
[2019-10-10] MEDS: FUROSEMIDE 40 MG/4 ML INJ (LASIX) IVP SCH ×2 (08:36→09:20)
[2019-10-10] MEDS: CARVEDILOL 6.25 MG (COREG) TAB PO SCH (08:36)
[2019-10-10] MEDS: SENNA W/DOCUSATE (SENOKOT S) TABLET PO SCH ×2 (08:36→09:13)
[2019-10-10] MEDS: DILTIAZEM 120 MG (CARDIZEM CD) CAP PO SCH (08:36)
[2019-10-10] MEDS: APIXABAN 5 MG (ELIQUIS) TABLET PO SCH (08:36)
[2019-10-10] MEDS ORDERED: CEFDINIR 300 MG (OMNICEF) CAP PO NR (09:25)
--- NOTE | 2019-10-10 10:06 | Physical Therapy Daily Note ---
PT Daily Note-Current Subjective Pt. reclined in chair, agrees to PT. Mental Status Patient Orientation: Person, Confused Attachments: Oxygen Transfers SCALE: Activities may be completed with or without assistive devices. 2-Ulfpyxugpj-ihslkwu completes the activity by him/herself with no assistance from a helper. 5-Set-up or Clean-up Assistance-helper sets up or cleans up; patient completes activity. [place] assists only prior to or following the activity. 4-Supervision or Touching Assistance-helper provides verbal cues and/or touching/steadying and/or contact guard assistance as patient completes activity. Assistance may be provided throughout the activity or intermittently. 3-Partial/Moderate Assistance-helper does LESS THAN HALF the effort. [place] lifts, holds or supports trunk or limbs, but provides less than half the effort. 2-Substantial/Maximal Assistance-helper does MORE THAN HALF the effort. [place] lifts or holds trunk or limbs and provides more than half the effort. 4-Owoydgoba-mesvmj does ALL the effort. Patient does none of the effort to complete the activity. Or, the assistance of 2 or more helpers is required for the patient to complete the activity. If activity was not attempted, code reason: 7-Patient Refused. 9-Not Applicable-not attempted and the patient did not perform the activity before the current illness, exacerbation or injury. 10-Not Attempted due to Environmental Limitations-(lack of equipment, weather restraints, etc.). 88-Not Attempted due to Medical Conditions or Safety Concerns. Sit to Stand (QC): 5 Weight Bearing Right Lower Extremity: Right Full Weight Bearing Left Lower Extremity: Left Full Weight Bearing Gait Training Does the Patient Walk?: Yes Distance: 400 ft Walk 150 ft (QC): 4 Gait Persons Needed: 1 Gait Assistive Device: FWW Pt. needs frequent verbal and tactile cuing for safety with walker. She frequently veers to left and steps outside of the walker. Pt. has 1 minor LOB requiring therapist assist to correct. Exercises Seated Therapy Exercises: Ankle pumps, Long arc quads, Hip flexion, Hip abd/add Seated Reps: 20 Treatments gait and exercise Assessment Current Status: Good Progress Pt. demonstrates decreased safety during ambulation, requiring close CGA and several verbal and tactile cuing for walker management and safety. Pt. returned to bedside chair with chair alarm on, call light in hand, and all needs met. PT Family Court Justice Goals Family Court Justice Goals PT Family Court Justice Goals Time Frame: Oct 21, 2019 Roll Left & Right (QC): 6 Sit to Lying (QC): 6 Lying-Sitting on Side/Bed(QC): 6 Sit to Stand (QC): 6 Chair/Zlm-vf-Yagid Xfer(QC): 6 Toilet Transfer (QC): 6 Car Transfer (QC): 6 Does the Patient Walk: Yes Walk 10 feet (QC): 6 Walk 50ft with 2 Turns (QC): 6 Walk 150 ft (QC): 6 Walking 10ft on Uneven Surface: 6 1 Step (curb) (QC): 6 4 Steps (QC): 6 12 Steps (QC): 9 Does the Pt use WC or Scooter?: No PT Plan Treatment/Plan Treatment Plan: Continue Plan of Care Treatment Plan: Bed Mobility, Education, Functional Activity Rex, Functional Strength, Gait, Safety, Therapeutic Exercise, Transfers Treatment Duration: Oct 21, 2019 Frequency: 6 times per week Estimated Hrs Per Day: .25 hour per day Patient and/or Family Agrees t: Yes Time/GCodes Time In: 919 Time Out: 942 Total Billed Treatment Time: 23 Total Billed Treatment 1, GT 15', Ex 8' STEWART MANLEY PT Oct 10, 2019 10:06
[2019-10-10] MEDS ORDERED: IPRA3AMP31 INH (11:13)
[2019-10-10] MEDS ORDERED: CEFD300C3 PO (11:13)
[2019-10-10] MEDS ORDERED: PRED10TA22 PO (11:13)
--- NOTE | 2019-10-10 11:14 | Discharge Summary ---
Discharge Summary Hospital Course Was the Problem List Reviewed?: Yes Problems/Dx: (1) LLL pneumonia Status: Acute (2) Hypoxia Status: Chronic (3) Atrial fibrillation with RVR Status: Acute (4) COPD exacerbation Status: Acute (5) EMPHYSEMA, UNSPECIFIED Status: Chronic (6) Atrial fibrillation with rapid ventricular response Status: Acute (7) Noncompliance with medication regimen Status: Chronic (8) Acute heart failure Status: Acute (9) Fluid overload Status: Acute Hospital Course Date of Admission: Oct 06, 2019 at 23:17 Admission Diagnosis : Family Physician/Provider: Terese Verde DO Date of Discharge: 10/10/19 Discharge Diagnosis: Respiratory insufficiency, AECOPD, PNA, AF w/RVR, confusion, CAD, RA, CRI Hospital Course: Patient had an uncomplicated hospital course after ICU admit for AF w/RVR with AECOPD requiring biPAP and Cardizem respectively. O2 maintained along with IV steroids and Abx and Cardiology and Pulmo consulted which were appreciated. Patient had evidence of some confusion noted by nurses and this doctor and will follow up closely but she has h/o non-compliance with meds and has become angry with her situation as of late so will continue providing support for the patient but she declined HH and IRF. Labs and Pending Lab Test: Laboratory Tests 10/10/19 04:35: White Blood Count 11.3H, Red Blood Count 4.20L, Hemoglobin 12.0, Hematocrit 38, Mean Corpuscular Volume 91, Mean Corpuscular Hemoglobin 29, Mean Corpuscular Hemoglobin Concent 32, Red Cell Distribution Width 15.5H, Platelet Count 342, Mean Platelet Volume 10.7H, Neutrophils (%) (Auto) 93H, Lymphocytes (%) (Auto) 4L, Monocytes (%) (Auto) 4, Eosinophils (%) (Auto) 0, Basophils (%) (Auto) 0, Neutrophils # (Auto) 10.5H, Lymphocytes # (Auto) 0.4L, Monocytes # (Auto) 0.4, Eosinophils # (Auto) 0.0, Basophils # (Auto) 0.0, Sodium Level 141, Potassium Level 3.6, Chloride Level 104, Carbon Dioxide Level 24, Anion Gap 13, Blood Urea Nitrogen 35H, Creatinine 1.07, Estimat Glomerular Filtration Rate 50, BUN/Creatinine Ratio 33, Glucose Level 161H, Calcium Level 9.2, Corrected Calcium 9.8, Total Bilirubin 0.7, Aspartate Amino Transf (AST/SGOT) 30, Alanine Aminotransferase (ALT/SGPT) 43, Alkaline Phosphatase 93, Total Protein 6.1L, Albumin 3.3 Microbiology 10/07/19 MRSA Screen - Final, Complete MRSA not isolated 10/07/19 Urine Culture - Final, Complete NO GROWTH 10/06/19 Blood Culture - Preliminary, Resulted No growth Home Meds Active Iprat-Albut 0.5-3(2.5) mg/3 ml (Ipratropium/Albuterol Sulfate) 3 Ml Ampul.neb 3 Ml INH RTQ4HR Prednisone 10 Mg Tab.ds.pk 10 Mg PO DAILY Take 6 tabs(60mg)daily,decrease by 1 tab(10MG)daily. Cefdinir 300 Mg Capsule 300 Mg PO BID Reported Ferosul (Ferrous Sulfate) 300 Mg/6.82 Ml Solution 5 Ml PO DAILY Multi-Vitamin Daily (Multivitamin) 1 Each Tablet 2 Each PO DAILY Atorvastatin Calcium 20 Mg Tablet 20 Mg PO HS LAST FILLED 06-06-2019 #90/90DS Furosemide 20 Mg Tablet 20 Mg PO DAILY PRN Celexa (Citalopram Hydrobromide) 20 Mg Tablet 20 Mg PO HS LAST FILLED 06-06-2019 #90/90DS Vitamin D3 (Cholecalciferol (Vitamin D3)) 500 Unit/5 Ml Liquid 5 Ml PO 1200 Carvedilol 6.25 Mg Tablet 6.25 Mg PO BID LAST FILLED 06-06-2019 #180/90DS Cartia Xt (Diltiazem HCl) 120 Mg Cap.er.24h 120 Mg PO DAILY LAST FILLED 06-06-2019 #90/90DS [Instaflex] 1 Tab PO DAILY Flaxseed Oil 1,000 Mg Capsule 1,000 Mg PO DAILY Eliquis (Apixaban) 5 Mg Tablet 5 Mg PO BID LAST FILLED 06-06-2019 #180/90DS Assessment/Pt Instructions Dr Verde in 1 week Discharge Planning: <30 minutes discharge planning Discharge Instructions Discharge Diet: Cardiac Diet Activity as Tolerated: Yes Discharge Physical Examination Vital Signs Vital Signs Date Time Temp Pulse Resp B/P (MAP) Pulse Ox O2 Delivery O2 Flow Rate FiO2 10/10/19 07:59 97 10/10/19 07:54 Nasal Cannula 2.00 10/10/19 07:00 86 10/10/19 04:00 35.9 16 152/104 (120) 10/07/19 16:00 40 General Appearance: No Apparent Distress, WD/WN, Chronically ill Respiratory: Lungs Clear, Normal Breath Sounds Cardiovascular: Regular Rate, Rhythm Neurologic/Psychiatric: Alert, Oriented x3, No Motor/Sensory Deficits, Normal Mood/Affect Allergies: Coded Allergies: Sulfa (Sulfonamide Antibiotics) (Verified Allergy, Unknown, 12/27/17) egg (Verified Allergy, Unknown, 12/27/17) Discharge Summary Date of Admission Oct 06, 2019 at 23:17 Date of Discharge Discharge Date: Oct 10, 2019 Admission Diagnosis Assessment: Acute respiratory failure requiring biPAP PNA AF w/RVR OAC with Eliquis COPD O2 dependence at home at night RA Denial about her medical condition severity AECHF Plan: OAC Amio IV abx IV steroids Discharge Diagnosis Assessment: Acute respiratory failure requiring biPAP PNA AF w/RVR OAC with Eliquis COPD O2 dependence at home at night RA Denial about her medical condition severity AECHF Plan: OAC Amio IV abx IV steroids (1) LLL pneumonia Status: Acute (2) Hypoxia Status: Chronic (3) Atrial fibrillation with RVR Status: Acute (4) COPD exacerbation Status: Acute (5) EMPHYSEMA, UNSPECIFIED Status: Chronic (6) Atrial fibrillation with rapid ventricular response Status: Acute (7) Noncompliance with medication regimen Status: Chronic (8) Acute heart failure Status: Acute (9) Fluid overload Status: Acute Clinical Quality Measures DVT/VTE Risk/Contraindication: Risk Factor Score Per Nursin RFS Level Per Nursing on Admit: 3=High TERESE VERDE DO Oct 10, 2019 11:14
--- NOTE | 2019-10-10 11:30 | Occ Therapy Progress Note ---
Therapy Progress Note Attempted treatment at 1105. Pt dressed, sitting in chair. Pt states she is going home today and declined to participate in therapy at this time. Pt states she has no questions or concerns, just wants to leave. Pt sitting in chair with needs met, telesitter and visitor in room. 1, visit BROOKE BUSTOS OT Oct 10, 2019 11:30
--- NOTE | 2019-10-10 15:27 | Cardiology Progress Note ---
Cardiology SOAP Progress Note Subjective: No cardiac complaints. Objective: I&O/Vital Signs 10/10/19 10/10/19 10/10/19 10/10/19 04:00 07:00 07:54 07:59 Temp 35.9 Pulse 70 86 Resp 16 B/P (MAP) 152/104 (120) Pulse Ox 97 96 97 O2 Delivery Room Air Nasal Cannula O2 Flow Rate 2.00 10/10/19 10/10/19 10/10/19 08:00 11:44 12:26 B/P (MAP) Pulse Ox 98 O2 Delivery Room Air Nasal Cannula O2 Flow Rate 2.00 10/10/19 00:00 Intake Total 1790 ml Output Total 2050 ml Balance -260 ml Weight (Pounds): 170 Weight (Ounces): 0 Weight (Calculated Kilograms): 77.372689 Constitutional: appears stated age; No apparent distress; well-developed, well- nourished Respiratory: chest is bilaterally symmetric, lungs clear to auscultation Cardiovascular: irregularly irregular, S1 and S2 Gastrointestional: soft, audible bowel sounds; No spleenomegaly Extremities: normal range of motion, non-tender, normal inspection, pedal edema; No clubbing, No cyanosis, No significant edema Neurologic/Psychiatric: no motor/sensory deficits, alert, normal mood/affect, oriented x 3, power is 5/5 both on sides Skin: normal color; No rash, No ulcerations Results/Procedures: Labs Laboratory Tests 10/10/19 04:35: White Blood Count 11.3H, Red Blood Count 4.20L, Hemoglobin 12.0, Hematocrit 38, Mean Corpuscular Volume 91, Mean Corpuscular Hemoglobin 29, Mean Corpuscular Hemoglobin Concent 32, Red Cell Distribution Width 15.5H, Platelet Count 342, Mean Platelet Volume 10.7H, Neutrophils (%) (Auto) 93H, Lymphocytes (%) (Auto) 4L, Monocytes (%) (Auto) 4, Eosinophils (%) (Auto) 0, Basophils (%) (Auto) 0, Neutrophils # (Auto) 10.5H, Lymphocytes # (Auto) 0.4L, Monocytes # (Auto) 0.4, Eosinophils # (Auto) 0.0, Basophils # (Auto) 0.0, Sodium Level 141, Potassium Level 3.6, Chloride Level 104, Carbon Dioxide Level 24, Anion Gap 13, Blood Urea Nitrogen 35H, Creatinine 1.07, Estimat Glomerular Filtration Rate 50, BUN/Creatinine Ratio 33, Glucose Level 161H, Calcium Level 9.2, Corrected Calcium 9.8, Total Bilirubin 0.7, Aspartate Amino Transf (AST/SGOT) 30, Alanine Aminotransferase (ALT/SGPT) 43, Alkaline Phosphatase 93, Total Protein 6.1L, Albumin 3.3 Microbiology 10/07/19 MRSA Screen - Final, Complete MRSA not isolated 10/07/19 Urine Culture - Final, Complete NO GROWTH 10/06/19 Blood Culture - Preliminary, Resulted No growth A/P: Assessment/Dx: Possible sepsis, COPD, Acute respiratory failure, Atrial fibrillation with rapid ventricular rate, CAD, History of smoking Plan: Possible sepsis, leukocytosis with significantly elevated CRP. Antibiotics. Will defer to the primary team for further management. COPD, defer treatment to Dr. Lin and Dr. Verde. Acute respiratory failure, likely multifactorial with COPD and congestive heart failure. IV Lasix. Echocardiogram. Atrial fibrillation with controlled ventricular rate, was treated with IV amiodarone and IV Cardizem. Amiodarone discontinued. Continue Cardizem for now if blood pressure tolerates. Transfer to by mouth Cardizem once able. CAD, first troponin was negative. Continue outpatient medical therapy. History of smoking Thank you for your consultation. Please call me if you have any questions. Edwina Cohen MD, FACP, FACC, FSCAI, FHRS, CCDS Interventional Cardiology Cardiac Electrophysiology Vascular Medicine and Endovascular Interventions Faby COHEN MD Oct 10, 2019 15:27
[2019-10-10] MEDS ORDERED: CEFDINIR 300 MG (OMNICEF) CAP PO SCH (21:00)
[2019-10-11] MEDS ORDERED: predniSONE 20 MG TAB PO SCH (07:00)
== END 2019-10-10 13:20 | disposition home or self-care (01) | DRG 871 ==
LOC: EDUNIT# 21:06 → ER 21:07 → ICU 23:17 → 4TH 10-08 12:12
PROVIDERS: ADMIT Internal Medicine; ATTEND Internal Medicine
DX: A41.9 Sepsis, unspecified organism (principal); J18.9 Pneumonia, unspecified organism; I50.43 Acute on chronic combined systolic (congestive) and diastolic (congestive) heart failure; J96.00 Acute respiratory failure, unspecified whether with hypoxia or hypercapnia; I48.91 Unspecified atrial fibrillation; J43.9 Emphysema, unspecified; I11.0 Hypertensive heart disease with heart failure; E87.6 Hypokalemia; E83.42 Hypomagnesemia; I25.10 Atherosclerotic heart disease of native coronary artery without angina pectoris; I25.2 Old myocardial infarction; R00.1 Bradycardia, unspecified; I95.9 Hypotension, unspecified; E78.00 Pure hypercholesterolemia, unspecified; M06.9 Rheumatoid arthritis, unspecified; Z99.81 Dependence on supplemental oxygen; Z95.5 Presence of coronary angioplasty implant and graft; Z79.01 Long term (current) use of anticoagulants; Z87.891 Personal history of nicotine dependence; Z91.19 Patient's noncompliance with other medical treatment and regimen; Z98.51 Tubal ligation status; Z87.01 Personal history of pneumonia (recurrent)
CPT/HCPCS: 36415; 71045; 80048; 80053; 80061; 81000; 82805; 83605; 83735; 83874; 83880; 84100; 84439; 84443; 84484; 85007; 85025; 85027; 85610; 85730; 86141; 86710; 87040; 87081; 87088; 93041; 93306; 94640; 94660; 94760; 96365; 96366; 96367; 96368; 96375

== ENCOUNTER 2019-10-10 21:24 | Inpatient (IN) | payer MEDICARE, OTHER ==
[~2019-10-10] VITALS: Ht 167 cm; Wt 86.5 kg
[~2019-10-10 21:24] MED LIST changes: +CITA20TA12 PO; +FERR300S PO; +MULT-974 PO
[2019-10-10] MEDS ORDERED: SCOPOLAMINE 1.5 MG (TRANSDERM-SCOP) PATCH TD ONE (22:30)
[2019-10-10 22:37] LABS: BASOPHILS % (AUTO) 0 % (0-10); EOSINOPHILS % (AUTO) 0 % (0-10); HEMATOCRIT 40 % (35-52); HEMOGLOBIN 13.1 G/DL (11.5-16.0); LYMPHOCYTES # (AUTO) 0.4 X 10^3 (1.0-4.0); LYMPHOCYTES % (AUTO) 3 % (12-44); MEAN CORPUSCULAR HEMOGLOBIN 29 PG (25-34); MEAN CORPUSCULAR HGB CONC 33 G/DL (32-36); MEAN CORPUSCULAR VOLUME 90 FL (80-99); MEAN PLATELET VOLUME 10.3 FL (7.4-10.4); MONOCYTES # (AUTO) 0.7 X 10^3 (0.0-1.0); MONOCYTES % (AUTO) 6 % (0-12); NEUTROPHILS # (AUTO) 11.4 X 10^3 (1.8-7.8); NEUTROPHILS % (AUTO) 91 % (42-75); PLATELET COUNT 401 10^3/uL (130-400); RED CELL DISTRIBUTION WIDTH 15.6 % (10.0-14.5); WHITE BLOOD COUNT 12.5 10^3/uL (4.3-11.0)
[2019-10-10 22:49] LABS: INR 1.2 (0.8-1.4); PROTHROMBIN TIME PATIENT 15.3 SEC (12.2-14.7)
[2019-10-10 22:55] LABS: ALANINE AMINOTRANSFERASE 64 U/L (0-55); ALBUMIN 3.4 GM/DL (3.2-4.5); ALKALINE PHOSPHATASE 126 U/L (40-136); BILIRUBIN,TOTAL 0.7 MG/DL (0.1-1.0); BUN/CREATININE RATIO 28; CALCIUM 9.4 MG/DL (8.5-10.1); CARBON DIOXIDE 22 MMOL/L (21-32); CHLORIDE 102 MMOL/L (98-107); CREATINE KINASE 52 U/L (29-168); CREATININE SERUM 1.03 MG/DL (0.60-1.30); GFR ESTIMATED 52; GLUCOSE 208 MG/DL (70-105); MAGNESIUM 1.7 MG/DL (1.6-2.4); POTASSIUM 3.4 MMOL/L (3.6-5.0); SODIUM 140 MMOL/L (135-145); TOTAL PROTEIN 6.6 GM/DL (6.4-8.2)
[2019-10-10 22:59] LABS: BAND NEUTROPHILS 2 %; LYMPHOCYTES % (MANUAL) 2 %; MONOCYTES % (MANUAL) 3 %; NEUTROPHILS % (MANUAL) 93 %
[2019-10-10 23:00] LABS: RBC MORPH NORMAL
[2019-10-10 23:15] LABS: CREATINE KINASE MB 2.1 NG/ML (<6.6); TSH (THYROID ANALYZER) 0.75 UIU/ML (0.35-4.94)
[2019-10-10 23:28] LABS: BILIRUBIN,URINE NEGATIVE (NEGATIVE); CLARITY,URINE CLEAR; COLOR,URINE YELLOW; GLUCOSE, URINE (UA) TRACE (NEGATIVE); KETONES,URINE NEGATIVE (NEGATIVE); LEUKOCYTE ESTERASE ,URINE NEGATIVE (NEGATIVE); NITRITE,URINE NEGATIVE (NEGATIVE); PH,URINE 6.5 (5-9); PROTEIN,URINE TRACE (NEGATIVE)
[2019-10-10] MEDS ORDERED: NITROGLYCERIN 2% OINT 1 GM UNIT DOSE PACKET TOP ONE (23:30)
[2019-10-10] MEDS ORDERED: FUROSEMIDE 40 MG/4 ML INJ (LASIX) IVP ONE (23:30)
[2019-10-10] MEDS ORDERED: cefTRIAXone FOR IV USE 1,000 MG in WATER (STERILE) FOR INJECTION 10 ML IV ONE (23:30)
[2019-10-10 23:34] LABS: RBC,URINE 0-2 /HPF; WBC,URINE 0-2 /HPF
[2019-10-10 23:35] LABS: BACTERIA,URINE TRACE /HPF
[2019-10-10] MEDS ORDERED: MECLIZINE 25 MG (ANTIVERT) TAB PO ONE (23:45)
[2019-10-11] VITALS (17 sets, daily range): BP systolic 105–170; BP diastolic 69–102
[2019-10-11] MEDS ORDERED: LABETALOL HCL 20 MG/4 ML VIAL IV ONE (02:45)
[2019-10-11 04:56] LABS: BASOPHILS % (AUTO) 0 % (0-10); EOSINOPHILS % (AUTO) 0 % (0-10); HEMATOCRIT 45 % (35-52); HEMOGLOBIN 14.2 G/DL (11.5-16.0); LYMPHOCYTES # (AUTO) 0.5 X 10^3 (1.0-4.0); LYMPHOCYTES % (AUTO) 4 % (12-44); MEAN CORPUSCULAR HEMOGLOBIN 28 PG (25-34); MEAN CORPUSCULAR HGB CONC 31 G/DL (32-36); MEAN CORPUSCULAR VOLUME 89 FL (80-99); MEAN PLATELET VOLUME 10.3 FL (7.4-10.4); MONOCYTES # (AUTO) 0.8 X 10^3 (0.0-1.0); MONOCYTES % (AUTO) 6 % (0-12); NEUTROPHILS # (AUTO) 12.5 X 10^3 (1.8-7.8); NEUTROPHILS % (AUTO) 91 % (42-75); PLATELET COUNT 439 10^3/uL (130-400); RED CELL DISTRIBUTION WIDTH 15.9 % (10.0-14.5); WHITE BLOOD COUNT 13.7 10^3/uL (4.3-11.0)
[2019-10-11 05:27] LABS: ALBUMIN 3.8 GM/DL (3.2-4.5); BILIRUBIN,TOTAL 0.7 MG/DL (0.1-1.0); CALCIUM 9.7 MG/DL (8.5-10.1); CREATININE SERUM 1.13 MG/DL (0.60-1.30); POTASSIUM 3.1 MMOL/L (3.6-5.0); TOTAL PROTEIN 7.2 GM/DL (6.4-8.2)
--- NOTE | 2019-10-11 05:51 | Diagnostic Imaging Report ---
PROCEDURE: CT head wo r/o stroke. TECHNIQUE: Multiple contiguous axial images were obtained through the brain without the use of intravenous contrast. Auto Exposure Controls were utilized during the CT exam to meet ALARA standards for radiation dose reduction. INDICATION: Does not feel well. History of atrial fibrillation. COMPARISON: None. FINDINGS: No large acute territorial ischemia, mass, or hemorrhage. Chronic microvascular disease is seen in the periventricular and subcortical white matter. The ventricles and cortical sulci are prominent, consistent with generalized volume loss. The basilar cisterns are patent and unremarkable. The calvarium is intact. The visualized paranasal sinuses are clear. IMPRESSION: 1. No large acute territorial ischemia, mass, or hemorrhage. 2. Chronic microvascular disease. 3. Generalized volume loss. Agree with overnight report. Dictated by: Dictated on workstation # [id number]
[2019-10-11] MEDS ORDERED: POTASSIUM CL 10MEQ/50ML IVPB 50 ML IV SCH (06:00)
[2019-10-11] MEDS ORDERED: KCL 20 MEQ TAB (K-DUR) PO SCH (06:00)
[2019-10-11] MEDS ORDERED: MAGNESIUM 1 GM/100 ML IVPB 100 ML IV SCH (06:00)
--- NOTE | 2019-10-11 06:08 | ED General ---
General Chief Complaint: General Problems/Pain Stated Complaint: INTRACTABLE VERTIGO;HTN;CHF;RLL PNEUMONIA Nursing Triage Note: Pt to [facility] via W/C, accompanied by daughter and . Pt was discharged from this hospital for dehydration today and family has concerns of pt "not feeling well". Pt has hx of Afib and CHF, pt denies any chest pain or SOB at this time. Pt O2 94% on RA, this RN put 2 L NC on pt at this time. Nursing Sepsis Screen: No Definite Risk Source of Information: Patient (PT IS LIMITED HISTORIAN), Family (DAUGHTER DOES MOST OF TALKING FOR PT), Old Records History of Present Illness Date Seen by Provider: Oct 10, 2019 Time Seen by Provider: 22:12 Initial Comments PT ARRIVES VIA POV FROM HOME WITH MULTIPLE FAMILY MEMBERS PT WAS ADMITTED 10/06/19 AND DISMISSED THIS AFTERNOON AROUND 1400, HAS BEEN HOME SINCE 1430 WAS ADMITTED FOR ATRIAL FIB WITH RVR--WAS ON CARDIZEM DRIP; HAD COPD EXACERBATION WITH RLL PNEUMONIA AND WAS ON BIPAP; ALSO HAD CHF; PER FAMILY, PT WAS ALSO DEHYDRATED-PT HAS BEEN VERY WEEK FOR THE LAST WEEK--HAD DIARRHEA INITIALLY, AND FAMILY STATES SHE GOT DEHYDRATED AND HAD PROGRESSIVE WEAKNESS AFTER THAT, UNTIL SHE WAS ADMITTED TO THE HOSPITAL FAMILY REPORTS THAT SHE WAS GETTING BETTER EVERY DAY THAT SHE WAS IN THE HOSPITAL. PT HAD BEEN WEARING HOME O2 AT 2L AT HS, BUT FOR THE LAST WEEK SHE HAS BEEN WEARING IT DURING THE DAY WELL. WHEN PT GOT HOME FROM THE HOSPITAL TODAY, SHE ATE SOUP AND CRACKERS, THEN WENT TO BED. THEN WHEN SHE TRIED TO GET OUT OF BED, SHE WAS TOO WEAK TO GET OUT OF BED, AND PT STATES "I COULDN'T WALK STRAIGHT AND I CAN'T HOLD MY HEAD UP" PT STATES SHE HAS BEEN DIZZY--"BUT I HAVE VERTIGO ANYWAY" STATES SHE HAS ONGOING PROBLEMS WITH DIZZINESS AND DIFFICULTY WALKING STRAIGHT AND STATES IT IS NOT ANY DIFFERENT THAN WHAT SHE HAS HAD IN THE PAST. PT HAS A SEATED WALKER AT HOME. DENIES ANY RECENT FALLS DENIES HEADACHE NOW, BUT STATES HE HAS HEADACHES "OFF AND ON" VISION IS SLIGHTLY BLURRY NO NAUSEA/VOMITING NO CHEST PAIN NO PALPITATIONS INITIALLY STATES SHE IS NOT SHORT OF BREATH, THEN LATER ON QUESTIONING AGAIN, SH E STATES THAT SHE IS MORE SHORT OF BREATH THAN WHAT SHE HAS BEEN FOR THE LAST DAY OR TWO. NO PARESTHESIAS OR MOTOR DEFICITS NO FEVER/SWEATS/CHILLS STATES SHE HAS CHRONIC URINARY FREQUENCY, BUT ATTRIBUTES THIS TO TAKING LASIX--PT STATES SHE IS SUPPOSED TO TAKE IT EVERY DAY, BUT SHE HAS SELF DECREASED IT TO TAKING IT EVERY 2-3 DAYS, BECAUSE IT CAUSES HER TO URINATE SO OFTEN. PCP: DR. NEAL Allergies and Home Medications Allergies Coded Allergies: Sulfa (Sulfonamide Antibiotics) (Verified Allergy, Unknown, 12/27/17) egg (Verified Allergy, Unknown, 12/27/17) Home Medications Apixaban 5 Mg Tablet, 5 MG PO BID, (Reported) LAST FILLED 06-06-2019 #180/90DS Atorvastatin Calcium 20 Mg Tablet, 20 MG PO HS, (Reported) LAST FILLED 06-06-2019 #90/90DS Carvedilol 6.25 Mg Tablet, 6.25 MG PO BID, (Reported) LAST FILLED 06-06-2019 #180/90DS Cefdinir 300 Mg Capsule, 300 MG PO BID Prescribed by: JEROME NEAL on 10/10/19 111 Cholecalciferol (Vitamin D3) 500 Unit/5 Ml Liquid, 5 ML PO 1200, (Reported) Citalopram Hydrobromide 20 Mg Tablet, 20 MG PO HS, (Reported) LAST FILLED 06-06-2019 #90/90DS Diltiazem HCl 120 Mg Cap.er.24h, 120 MG PO DAILY, (Reported) LAST FILLED 06-06-2019 #90/90DS Ferrous Sulfate 300 Mg/6.82 Ml Solution, 5 ML PO DAILY, (Reported) Flaxseed Oil 1,000 Mg Capsule, 1,000 MG PO DAILY, (Reported) Furosemide 20 Mg Tablet, 20 MG PO DAILY PRN for SWELLING, (Reported) Ipratropium/Albuterol Sulfate 3 Ml Ampul.neb, 3 ML INH RTQ4HR Prescribed by: JEROME NEAL on 10/10/191112 Multivitamin 1 Each Tablet, 2 EACH PO DAILY, (Reported) Prednisone 10 Mg Tab.ds.pk, 10 MG PO DAILY Take 6 tabs(60mg)daily,decrease by 1 tab(10MG)daily. Prescribed by: JEROME NEAL on 10/10/19 111 [Instaflex] , 1 TAB PO DAILY, (Reported) Patient Home Medication List Home Medication List Reviewed: Yes Review of Systems Review of Systems Constitutional: see HPI; No chills, No diaphoresis; dizziness; No fever; malaise, weakness EENTM: see HPI, blurred vision, other (STATES SHE HAS ONGOING CLICKING IN LEFT EAR-HAS SEEN ENT, AND NEUROLOGIST-NO CAUSE FOUND-HAD CT AND MRI IN [place]. CLICKING IS NOT PRESENT NOW.) Respiratory: see HPI; No cough; dyspnea on exertion, short of breath Cardiovascular: see HPI; No chest pain, No edema, No palpitations, No syncope Gastrointestinal: see HPI; No abdominal pain, No nausea, No vomiting Genitourinary: see HPI Musculoskeletal: no symptoms reported; No back pain, No neck pain Skin: no symptoms reported Psychiatric/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: See HPI, Headache; Denies Numbness, Denies Paresthesia, Denies Seizure, Denies Tingling Hematologic/Lymphatic: No Symptoms Reported Past [id number] Hx Patient Social History Alcohol Use: Denies Use Recreational Drug Use: No Smoking Status: Former Smoker Type Used: Cigarettes Former Smoker, Quit: Aug 27, 2004 2nd Hand Smoke Exposure: No Recent Foreign Travel: No Contact w/Someone Who Travel: No Recent Infectious Disease Expo: No Recent Hopitalizations: No Physical Abuse: No Sexual Abuse: No Mistreated: No Fear: No Immunizations Up To Date Date of Pneumonia Vaccine: Sep 17, 2015 Seasonal Allergies Seasonal Allergies: No Past Medical History Surgeries: Yes (CARDIAC CATH X 3--STENTS X 4) Cardiac, Coronary Stent, Gallbladder, Tubal Ligation Respiratory: Yes Pneumonia, COPD Currently Using CPAP: No Cardiac: Yes (CHF; CARDIAC CATHS X 3 WITH STENTS X 4) Atrial Fibrillation, Coronary Artery Disease, Heart Attack, High Cholesterol, Hypertension 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: Yes 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 ) Cancer: No Psychosocial: Yes Anxiety, Depression Integumentary: No Blood Disorders: No Adverse Reaction/Blood Tranf: No Family Medical History Cardiovascular disease 19 MOTHER Diabetes mellitus 19 MOTHER Hypertension 19 MOTHER No Pertinent Family Hx LONG HISTORY OF NON-COMPLIANCE Physical Exam Vital Signs Vital Signs - First Documented 10/10/19 10/11/19 21:56 03:20 Temp 36.4 Pulse 85 Resp 19 B/P (MAP) 189/107 (134) Pulse Ox 98 O2 Delivery Room Air O2 Flow Rate 2.00 Capillary Refill : Less Than 3 Seconds Height, Weight, BMI Height: 5'4.00" Weight: 170lbs. 0oz. 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 as Tested Skin: Normal Color, Warm/Dry Progress/Results/Core Measures Suspected Sepsis Recent Fever Within 48 Hours: No Infection Criteria Present: Suspected New Infection New/Unexplained Altered Menta: No Sepsis Screen: No Definite Risk SIRS Temperature: Pulse: 84 Respiratory Rate: 23 Laboratory Tests 10/10/19 22:28: White Blood Count 12.5H 10/11/19 04:40: White Blood Count 13.7H Blood Pressure 130 /81 Mean: 97 Laboratory Tests 10/10/19 22:28: Creatinine 1.03, INR Comment 1.2, Platelet Count 401H, Total Bilirubin 0.7 10/11/19 04:40: Creatinine 1.13, Platelet Count 439H, Total Bilirubin 0.7 Results/Orders Lab Results Laboratory Tests Test 10/10/19 22:28 10/10/19 22:35 10/10/19 23:23 10/11/19 04:40 Range/Units White Blood Count 12.5 H 13.7 H 4.3-11.0 10^3/uL Red Blood Count 4.47 5.07 4.35-5.85 10^6/uL Hemoglobin 13.1 14.2 11.5-16.0 G/DL Hematocrit 40 45 35-52 % Mean Corpuscular Volume 90 89 80-99 FL Mean Corpuscular Hemoglobin 29 28 25-34 PG Mean Corpuscular Hemoglobin Concent 33 31 L 32-36 G/DL Red Cell Distribution Width 15.6 H 15.9 H 10.0-14.5 % Platelet Count 401 H 439 H 130-400 10^3/uL Mean Platelet Volume 10.3 10.3 7.4-10.4 FL Neutrophils (%) (Auto) 91 H 91 H 42-75 % Lymphocytes (%) (Auto) 3 L 4 L 12-44 % Monocytes (%) (Auto) 6 6 0-12 % Eosinophils (%) (Auto) 0 0 0-10 % Basophils (%) (Auto) 0 0 0-10 % Neutrophils # (Auto) 11.4 H 12.5 H 1.8-7.8 X 10^3 Lymphocytes # (Auto) 0.4 L 0.5 L 1.0-4.0 X 10^3 Monocytes # (Auto) 0.7 0.8 0.0-1.0 X 10^3 Eosinophils # (Auto) 0.0 0.0 0.0-0.3 10^3/uL Basophils # (Auto) 0.0 0.0 0.0-0.1 10^3/uL Neutrophils % (Manual) 93 % Lymphocytes % (Manual) 2 % Monocytes % (Manual) 3 % Band Neutrophils 2 % Blood Morphology Comment NORMAL Prothrombin Time 15.3 H 12.2-14.7 SEC INR Comment 1.2 0.8-1.4 Activated Partial Thromboplast Time 26 24-35 SEC Sodium Level 140 141 135-145 MMOL/L Potassium Level 3.4 L 3.1 L 3.6-5.0 MMOL/L Chloride Level 102 98 98-107 MMOL/L Carbon Dioxide Level 22 27 21-32 MMOL/L Anion Gap 16 H 16 H 5-14 MMOL/L Blood Urea Nitrogen 29 H 28 H 7-18 MG/DL Creatinine 1.03 1.13 0.60-1.30 MG/DL Estimat Glomerular Filtration Rate 52 47 BUN/Creatinine Ratio 28 25 Glucose Level 208 H 196 H 70-105 MG/DL Calcium Level 9.4 9.7 8.5-10.1 MG/DL Corrected Calcium 9.9 9.9 8.5-10.1 MG/DL Magnesium Level 1.7 1.6 1.6-2.4 MG/DL Total Bilirubin 0.7 0.7 0.1-1.0 MG/DL Aspartate Amino Transf (AST/SGOT) 40 H 40 H 5-34 U/L Alanine Aminotransferase (ALT/SGPT) 64 H 65 H 0-55 U/L Alkaline Phosphatase 126 121 40-136 U/L Total Creatine Kinase 52 29-168 U/L Creatine Kinase MB 2.1 <6.6 NG/ML Myoglobin 66.6 10.0-92.0 NG/ML Troponin I < 0.028 <0.028 NG/ML B-Type Natriuretic Peptide 429.2 H <100.0 PG/ML Total Protein 6.6 7.2 6.4-8.2 GM/DL Albumin 3.4 3.8 3.2-4.5 GM/DL TSH [place] Testing 0.75 0.35-4.94 UIU/ML Glucometer 200 H 70-110 MG/DL Urine Color YELLOW Urine Clarity CLEAR Urine pH 6.5 5-9 Urine Specific Potter 1.015 L 1.016-1.022 Urine Protein TRACE NEGATIVE Urine Glucose (UA) TRACE H NEGATIVE Urine Ketones NEGATIVE NEGATIVE Urine Nitrite NEGATIVE NEGATIVE Urine Bilirubin NEGATIVE NEGATIVE Urine Urobilinogen 0.2 < = 1.0 MG/DL Urine Leukocyte Esterase NEGATIVE NEGATIVE Urine RBC (Auto) TRACE-I NEGATIVE Urine RBC 0-2 /HPF Urine WBC 0-2 /HPF Urine Crystals NONE /LPF Urine Bacteria TRACE /HPF Urine Casts NONE /LPF Urine Mucus NEGATIVE /LPF Urine Culture Indicated NO Procalcitonin 0.03 <0.10 NG/ML My Orders Orders - AB CARRANZA DO Accucheck Stat ONCE (10/10/19 22:15) Ed Iv/Invasive Line Start (10/10/19 22:15) Ekg Tracing (10/10/19 22:15) Monitor-Rhythm Ecg Trace Only (10/10/19 22:15) BNP (10/10/19 22:15) Cbc With Automated Diff (10/10/19 22:15) Comprehensive Metabolic Panel (10/10/19 22:15) Creatine Kinase (10/10/19 22:15) Creatine Kinase Mb (10/10/19 22:15) Magnesium (10/10/19 22:15) Protime With Inr (10/10/19 22:15) Partial Thromboplastin Time (10/10/19 22:15) Thyroid Analyzer (10/10/19 22:15) Ua Culture If Indicated (10/10/19 22:15) Myoglobin Serum (10/10/19 22:15) Troponin I (10/10/19 22:15) Chest 1 View, Ap/Pa Only (10/10/19 22:18) Scopolamine Patch (Transderm-Scop Patch) (10/10/19 22:30) Manual Differential (10/10/19 22:28) Furosemide Injection (Lasix Injection) (10/10/19 23:30) Catheter(Urinary) Insert & Ass 03,15 (10/10/19 23:19) Nitroglycerin Ointment (Nitrobid Ointme (10/10/19 23:30) Ceftriaxone For Iv Use (Rocephin For I (10/10/19 23:30) Meclizine Tablet (Antivert Tablet) (10/10/19 23:45) Ct Head Wo-R/O Stroke (10/11/19 00:01) Labetalol Injection (Normodyne Injection (10/11/19 02:45) Medications Given in ED Current Medications Medications Dose Ordered Sig/Kadeem Route Start Time Stop Time Status Last Admin Dose Admin Ceftriaxone Sodium 1000 mg/ Sterile Water 10 ml @ 200 mls/hr ONCE ONCE IV 10/10/19 23:30 10/10/19 23:32 DC 10/10/19 23:34 200 MLS/HR Furosemide 80 mg ONCE ONCE IVP 10/10/19 23:30 10/10/19 23:31 DC 10/10/19 23:35 80 MG Meclizine HCl 50 mg ONCE ONCE PO 10/10/19 23:45 10/10/19 23:46 DC 10/10/19 23:57 50 MG Nitroglycerin 1 inch ONCE ONCE TOP 10/10/19 23:30 10/10/19 23:31 DC 10/10/19 23:35 1 INCH Scopolamine 1.5 mg ONCE ONCE TD 10/10/19 22:30 10/10/19 22:31 DC 10/10/19 22:38 1.5 MG Vital Signs/I&O 10/10/19 10/11/19 10/11/19 10/11/19 21:56 03:20 03:29 03:35 Temp 36.4 36.4 36.1 Pulse 85 85 79 78 Resp 19 19 14 B/P (MAP) 189/107 (134) 137/106 (134) 160/94 (116) Pulse Ox 98 98 97 O2 Delivery Room Air Nasal Cannula Nasal Cannula O2 Flow Rate 2.00 2.00 10/11/19 10/11/19 10/11/19 10/11/19 03:45 04:00 04:00 04:15 Pulse 86 87 77 Resp 18 20 15 B/P (MAP) 160/94 (116) 129/99 (109) 138/80 (99) Pulse Ox 99 98 98 O2 Delivery Nasal Cannula Nasal Cannula Nasal Cannula Nasal Cannula O2 Flow Rate 2.00 2.00 2.00 2.00 10/11/19 10/11/19 10/11/19 04:45 05:01 05:51 Pulse 84 Resp 23 B/P (MAP) 130/81 (97) Pulse Ox 97 O2 Delivery Nasal Cannula Nasal Cannula Nasal Cannula O2 Flow Rate 2.00 2.00 2.00 10/11/19 00:00 Intake Total 10 ml Balance 10 ml Capillary Refill : Less Than 3 Seconds Blood Pressure Mean: 97 Point of Care Testing Finger Stick Blood Glucose: 200 Progress Note : Progress Note PT GIVEN ANTIVERT AND SCOPOLAMINE, WITH IMPROVEMENT IN DIZZINESS, BUT PT IS STILL UNABLE TO STAND OR EVEN WALK 2 STEPS WITHOUT MUCH INSTABILITY AND REQUIRES 2 PERSON ASSIST. GIVEN LABETALOL AND BP DOWN TO 120'S/80'S AT TIME OF ADMIT NO DETERIORATION IN PT'S CONDITION DURING ER STAY ECG Initial ECG Impression Date: Oct 10, 2019 Initial ECG Impression Time: 22:27 Initial ECG Rate: 84 Initial ECG Rhythm: A Fib/Flutter Initial ECG Impression: Nonspecific Changes Initial ECG Comparisson: Unchanged Diagnostic Imaging Comments CXR--CARDIOMEGALY, CHF, RLL INFILTRATE--PENDING RADIOLOGIST REVIEW CT HEAD--NO ACUTE PROCESS, CHRONIC SMALL VESSEL DISEASE AND SENESCENT CHANGES--PER [facility] VIA FAX A [id number] Reviewed: Reviewed by Me Departure Communication (Admissions) 0150--SPOKE WITH DR. NEAL, ACCEPTS PT FOR ADMIT TO ICU Impression Primary Impression: INTRACTABLE VERTIGO Additional Impressions: CHF (congestive heart failure) COPD (chronic obstructive pulmonary disease) RLL pneumonia Hyperglycemia CHRONIC ATRIAL FIBRILLATION Uncontrolled hypertension Disposition: ADMITTED INPATIENT Condition: Improved Admissions Decision to Admit Reason: Admit from ER (General) Decision to Admit/Date: Oct 11, 2019 Time/Decision to Admit Time: 01:50 Departure-Patient Inst. Referrals: JEROME NEAL DO (PCP) Primary Care Physician AB CARRANZA DO Oct 11, 2019 06:08
--- NOTE | 2019-10-11 06:29 | Diagnostic Imaging Report ---
EXAMINATION: Chest 1 view HISTORY: Not feeling well. History of atrial fibrillation and CHF. COMPARISON: 10/08/2019. FINDINGS: Improved aeration is noted in the right lung base. There is continued cardiomegaly with central pulmonary vascular congestion. No overt pulmonary edema. No large pleural effusion or pneumothorax. There is calcified aortic atherosclerotic plaque. No acute osseous abnormalities. IMPRESSION: 1. Cardiomegaly with central pulmonary vascular congestion. No overt pulmonary edema. 2. Improving aeration in the right lung base, which may represent improved edema or infection. Dictated by: Dictated on workstation # [id number]
[2019-10-11] MEDS ORDERED: AZITHROMYCIN 500 MG/NS 250 ML IVPB IV ONE ×2 (06:30)
[2019-10-11] MEDS ORDERED: MECLIZINE 25 MG (ANTIVERT) TAB PO PRN (06:30)
[2019-10-11] MEDS ORDERED: NITROGLYCERIN 2% OINT 1 GM UNIT DOSE PACKET TOP PRN (06:30)
[2019-10-11] MEDS ORDERED: KCL 20 MEQ TAB (K-DUR) PO ONE ×2 (07:00→09:00)
[2019-10-11] MEDS: SCOPOLAMINE 1.5 MG (TRANSDERM-SCOP) PATCH TOP SCH (07:30)
[2019-10-11] MEDS: MAGNESIUM 1 GM/100 ML IVPB 100 ML IV SCH ×2 (07:41→08:36)
[2019-10-11] MEDS: APIXABAN 5 MG (ELIQUIS) TABLET PO SCH ×2 (08:40→21:21)
[2019-10-11] MEDS ORDERED: PIPERACILLIN/TAZOBACTAM (BULK) 4.5 GM in NS (IVPB) 100 ML IV NR (10:00)
--- NOTE | 2019-10-11 10:20 | History & Physical-Hospitalist ---
History of Present Illness HPI/Chief Complaint CC: Severe vertigo with HTN urgency HPI: This is a 74yoWF clinic patient of mine who I just DC the day before when she had improved rapidly after PNA and AECOPD with CHF along with chronic non- compliance with medical treatment and major denial about her medical problem severity who presented to the ER with severe vertigo and severe high BP with evidence of recurrent PNA and hypoxia in need of inpatient status. Patient has become more confused and become angry when questioned about it this most recent admit and completely denies any memory deficit. Patient currently feels better but very tired since she had not had any sleep last night due to admit. Daughter at the bedside who has a phone with speakerphone for her sister to be involved in the conversation. She refused to have HH set up and rehab and skilled at DC yesterday so she went home in improved condition but it is appearing that she will need increasing support in order to return to home to live independently but unsure if she will be open to any of these options. Patient has had a significant decline in the past 2 years becoming more complex medically as the months progress. I told her last time to come to ER in times of illness because of the severity of her medical issues will preclude her from going to an urgent care in the future due to their lack of resources that she will need to be managed appropriately. Source: patient, family, RN/MD, old records Exam Limitations: no limitations Date Seen 10/11/19 Time Seen by a Provider: 09:00 Attending Physician Terese Verde DO PCP Terese Verde DO Referring Physician Date of Admission Oct 11, 2019 at 02:41 Home Medications & Allergies Home Medications Reviewed patient Home Medication Reconciliation performed by pharmacy medication reconciliations design technician and/or nursing. Patients Allergies have been reviewed. Allergies Allergies Coded Allergies Sulfa (Sulfonamide Antibiotics) (Verified Allergy, Unknown, 12/27/17) Past Jiveily-Cnzmse-Unjgps Hx Past Med/Social Hx: Reviewed Nursing Past Med/Soc Hx, Reviewed and Corrections made Patient Social History Marrital Status: Employed/Student: retired Alcohol Use: Denies Use Recreational Drug Use: No Smoking Status: Former Smoker Former Smoker, Quit: Aug 27, 2004 Type Used: Cigarettes 2nd Hand Smoke Exposure: No Recent Foreign Travel: No Contact w/other who traveled: No Recent Hopitalizations: No Recent Infectious Disease Expo: No Immunizations Up To Date Date of Pneumonia Vaccine: Sep 17, 2015 Seasonal Allergies Seasonal Allergies: No Past Medical History Surgeries: Cardiac, Coronary Stent, Gallbladder, Tubal Ligation Respiratory: COPD, Pneumonia Currently Using CPAP: No Cardiac: Atrial Fibrillation, Coronary Artery Disease, Heart Attack, High Cholesterol, Hypertension 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: Vertigo Menopausal Musculoskeletal: Arthritis, Rheumatoid Arthritis Psychosocial: Anxiety, Depression History of Blood Disorders: No Adverse Reaction to Blood Sousa: No Family History Cardiovascular disease 19 MOTHER Diabetes mellitus 19 MOTHER Hypertension 19 MOTHER No Pertinent Family Hx LONG HISTORY OF NON-COMPLIANCE Review of Systems Constitutional: see HPI, dizziness, malaise, weakness Respiratory: cough, dyspnea on exertion Psychiatric/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: Depressed, Other (memory loss, confusion) Physical Exam Physical Exam Vital Signs Vital Signs - First Documented 10/10/19 10/11/19 10/11/19 21:56 03:20 14:04 Temp 36.4 Pulse 85 Resp 19 B/P (MAP) 189/107 (134) Pulse Ox 98 O2 Delivery Room Air O2 Flow Rate 2.00 FiO2 24 Capillary Refill : Less Than 3 Seconds Height, Weight, BMI Height: 5'4.00" Weight: 170lbs. 0oz. 77.627985lt; 29.00 BMI Method:Stated General Appearance: No Apparent Distress, WD/WN, Chronically ill Eyes: Right Eye Normal Inspection, Right Eye PERRL HEENT: PERRL/EOMI, Normal ENT Inspection, Pharynx Normal, Moist Mucous Membranes Neck: Full Range of Motion, Normal Inspection, Non Tender Respiratory: Chest Non Tender, No Accessory Muscle Use, No Respiratory Distress, Crackles, Decreased Breath Sounds, Wheezing Cardiovascular: Regular Rate, Rhythm, No Edema, No Gallop, No JVD, No Murmur, Normal Peripheral Pulses Gastrointestinal: Normal Bowel Sounds, No Organomegaly, No Pulsatile Mass, Non Tender, Soft Back: Normal Inspection, No CVA Tenderness, No Vertebral Tenderness Extremity: Normal Capillary Refill, Normal Inspection, Normal Range of Motion, Non Tender, No Calf Tenderness, No Pedal Edema Neurologic/Psychiatric: Alert, Oriented x3, No Motor/Sensory Deficits, Normal 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 Assessment/Plan Admission Diagnosis Assessment: Severe vertigo Malignant HTN with urgency AECOPD CHF AF CAD PNA recurrent CRI RA Confusion Rapid debility Plan: IV abx Zosyn Home meds OAC SCD's OT/PT IRF? Skilled Patient and family appear to be in denial about the severity of her medical issues and significant decline and confusion along with anger issues are limitations in giving her the needed support Admission Status: Inpatient Order (span 2 midnights) Reason for Inpatient Admission: Severe vertigo with malignant HTN with recurrence of PNA and ACHF Diagnosis/Problems Diagnosis/Problems (1) RLL pneumonia Status: Acute (2) Uncontrolled hypertension Status: Acute (3) CHF (congestive heart failure) Status: Acute (4) COPD exacerbation Status: Acute (5) Atrial fibrillation with rapid ventricular response Status: Acute (6) Noncompliance with medication regimen Status: Chronic (7) Hypoxia Status: Chronic Clinical Quality Measures DVT/VTE Risk/Contraindication: Risk Factor Score Per Nursin RFS Level Per Nursing on Admit: 4+=Very High TERESE VERDE DO Oct 11, 2019 10:20
[2019-10-11] MEDS: methylPREDNISolone 40 MG/ML (Solu-MEDROL) VIAL IV SCH ×2 (14:01→17:58)
[2019-10-11] MEDS: RT-ALBUTEROL/IPRATROPIUM 3 ML (DUONEB) VIAL INH SCH ×3 (14:03→22:33)
--- NOTE | 2019-10-11 14:26 | Consultation-Cardiology ---
HPI-Cardiology Cardiology Consultation: Date of Consultation 10/11/19 Date of Admission Attending Physician Terese Neal DO Admitting Physician Terese Neal DO Consulting Physician Faby BERMUDEZ MD HPI: Time Seen by a Provider: 12:00 Chief Complaint: Dizziness. This is a 74-year-old lady who follows with Dr. Hamilton as cardiology at [facility]. She has previous history of CAD with numerous PCI. She also has history of chronic atrial fibrillation on Cardizem and oral anticoagulation. She was admitted recently for atrial fibrillation with RVR which was controlled with Cardizem infusion. She was changed to by mouth Cardizem before discharge. She also had COPD exacerbation with right lower lobe pneumonia and mild acute diastolic heart failure. She presents with difficulty walking and being very dizzy. She denies any syncope or near syncope. She denies chest pain. She does complain of shortness of breath. Review of Systems-Cardiology Review of Systems Constitutional: As described under HPI; No As described under HPI, No no symptoms reported, No chills, No fever; lightheadedness Eyes: No As described under HPI, No no symptoms reported, No blindness, No blurred vision, No contact lenses, No drainage, No decreased acuity, No foreign body sensation, No pain, No vision change Ears/Nose/Throat: No As described under HPI, No no symptoms reported, No chronic hearing loss, No ear discharge, No ear pain, No nasal drainage, No ulcerations Respiratory: No no symptoms reported; As described under HPI; No As described under HPI, No cough, No orthopnea; shortness of breath; No SOB with excertion Cardiovascular: No no symptoms reported; As described under HPI; No As described under HPI, No chest pain, No edema, No irregular heart rate, No lightheadedness, No palpitations Gastrointestinal: No no symptoms reported, No As described under HPI, No abdomen distended, No abdominal pain, No blood streaked bowels, No constipation, No diarrhea, No nausea, No vomiting, No stool coloration changes Genitourinary: No As described under HPI, No burning, No dysuria, No discharge, No frequency, No flank pain, No hematuria, No urgency : Yes : No Skin: No rash, No skin related problems, No ulcerations Psychiatric/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: No anxiety, No depression, No seizure, No focal weakness, No syncope Hematologic: No bleeding abnormalities VNI-Dwzbzz-Svobdz Hx Patient Social History Alcohol Use: Denies Use Recreational Drug Use: No Smoking Status: Former Smoker Former smoker/When Quit: Oct 11, 2004 Type Used: Cigarettes 2nd Hand Smoke Exposure: No Recent Foreign Travel: No Recent Infectious Disease Expo: No Hospitalization with Isolation: Denies Immunizations Up To Date Date of Pneumonia Vaccine: Sep 17, 2015 Past Medical History PMH As described under Assessment. Family Medical History Family Medical History: She reports her mother had coronary artery disease and hypertension. Family History: Cardiovascular disease 19 MOTHER Diabetes mellitus 19 MOTHER Hypertension 19 MOTHER Allergies and Home Medications Allergies Coded Allergies: Sulfa (Sulfonamide Antibiotics) (Verified Allergy, Unknown, 12/27/17) Home Medications Apixaban 5 Mg Tablet, 5 MG PO BID, (Reported) LAST FILLED 06-06-2019 #180/90DS Atorvastatin Calcium 20 Mg Tablet, 20 MG PO HS, (Reported) LAST FILLED 06-06-2019 #90/90DS Carvedilol 6.25 Mg Tablet, 6.25 MG PO BID, (Reported) LAST FILLED 06-06-2019 #180/90DS Cefdinir 300 Mg Capsule, 300 MG PO BID Prescribed by: TERESE NEAL on 10/10/19 1113 Cholecalciferol (Vitamin D3) 500 Unit/5 Ml Liquid, 5 ML PO 1200, (Reported) Citalopram Hydrobromide 20 Mg Tablet, 20 MG PO HS, (Reported) LAST FILLED 06-06-2019 #90/90DS Diltiazem HCl 120 Mg Cap.er.24h, 120 MG PO DAILY, (Reported) LAST FILLED 06-06-2019 #90/90DS Ferrous Sulfate 300 Mg/6.82 Ml Solution, 5 ML PO DAILY, (Reported) Flaxseed Oil 1,000 Mg Capsule, 1,000 MG PO DAILY, (Reported) Furosemide 20 Mg Tablet, 20 MG PO DAILY PRN for SWELLING, (Reported) Ipratropium/Albuterol Sulfate 3 Ml Ampul.neb, 3 ML INH RTQ4HR Prescribed by: TERESE NEAL on 10/10/19 1113 Multivitamin 1 Each Tablet, 2 EACH PO DAILY, (Reported) Prednisone 10 Mg Tab.ds.pk, 10 MG PO DAILY Take 6 tabs(60mg)daily,decrease by 1 tab(10MG)daily. Prescribed by: TERESE NEAL on 10/10/19 1113 [Instaflex] , 1 TAB PO DAILY, (Reported) Patient Home Medication List Home Medication List Reviewed: Yes Physical Exam-Cardiology Physical Exam Vital Signs/I&O 10/11/19 10/11/19 10/11/19 10/11/19 03:20 03:29 03:35 03:45 Temp 36.4 36.1 Pulse 85 79 78 86 Resp 19 14 18 B/P (MAP) 137/106 (134) 160/94 (116) 160/94 (116) Pulse Ox 98 97 99 O2 Delivery Nasal Cannula Nasal Cannula Nasal Cannula O2 Flow Rate 2.00 2.00 2.00 10/11/19 10/11/19 10/11/19 10/11/19 04:00 04:00 04:15 04:45 Pulse 87 77 84 Resp 20 15 23 B/P (MAP) 129/99 (109) 138/80 (99) 130/81 (97) Pulse Ox 98 98 97 O2 Delivery Nasal Cannula Nasal Cannula Nasal Cannula Nasal Cannula O2 Flow Rate 2.00 2.00 2.00 2.00 10/11/19 10/11/19 10/11/19 10/11/19 05:01 05:15 05:51 06:15 Pulse 82 75 Resp 32 30 B/P (MAP) 128/87 (101) 126/78 (94) Pulse Ox 97 98 O2 Delivery Nasal Cannula Nasal Cannula Nasal Cannula Nasal Cannula O2 Flow Rate 2.00 2.00 2.00 2.00 10/11/19 10/11/19 10/11/19 10/11/19 07:00 07:00 08:00 08:00 Temp 35.9 Pulse 77 63 69 Resp 20 12 B/P (MAP) 105/69 (81) 132/86 (101) Pulse Ox 98 96 O2 Delivery Nasal Cannula Nasal Cannula O2 Flow Rate 2.00 2.00 10/11/19 10/11/19 10/11/19 10/11/19 08:00 09:00 10:00 11:00 Pulse 91 75 77 Resp 21 24 B/P (MAP) 144/87 (106) 109/75 (86) 133/78 (96) Pulse Ox 98 98 96 O2 Delivery Nasal Cannula Nasal Cannula Nasal Cannula Nasal Cannula O2 Flow Rate 2.00 2.00 2.00 2.00 10/11/19 10/11/19 10/11/19 10/11/19 11:25 12:30 13:00 14:04 Temp 35.8 Pulse 84 78 92 Resp 20 B/P (MAP) 170/102 (124) 136/94 (108) Pulse Ox 97 98 O2 Delivery Nasal Cannula O2 Flow Rate 2.00 FiO2 24 10/11/19 14:04 Pulse Ox 98 O2 Delivery Nasal Cannula O2 Flow Rate 1.00 10/11/19 00:00 Intake Total 10 ml Balance 10 ml Capillary Refill : Less Than 3 Seconds Constitutional: appears stated age, AAO x 3; No apparent distress; well- developed, well-nourished HEENT: PERRL; No discharge; hearing is well preserved, oral hygience is good; No ulceration, No xanthelasmas are seen Neck: No carotid bruit; carotid pulses are 2 + bilaterally Respiratory: chest is bilaterally symmetric, lungs clear to auscultation Cardiovascular: irregularly irregular, S1 and S2 Gastrointestinal: soft, audible bowel sounds; No spleenomegaly Rectal: deferred Extremities: normal range of motion, non-tender, normal inspection; No c lubbing, No cyanosis; no lower extremity edema bilateral; No significant edema Neurologic/Psychiatric: no motor/sensory deficits, alert, normal mood/affect, oriented x 3, power is 5/5 both on sides Skin: normal color; No rash, No ulcerations Data Review Labs Laboratory Tests 10/10/19 22:28: White Blood Count 12.5H, Red Blood Count 4.47, Hemoglobin 13.1, Hematocrit 40, Mean Corpuscular Volume 90, Mean Corpuscular Hemoglobin 29, Mean Corpuscular Hemoglobin Concent 33, Red Cell Distribution Width 15.6H, Platelet Count 401H, Mean Platelet Volume 10.3, Neutrophils (%) (Auto) 91H, Lymphocytes (%) (Auto) 3L , Monocytes (%) (Auto) 6, Eosinophils (%) (Auto) 0, Basophils (%) (Auto) 0, Neutrophils # (Auto) 11.4H, Lymphocytes # (Auto) 0.4L, Monocytes # (Auto) 0.7, Eosinophils # (Auto) 0.0, Basophils # (Auto) 0.0, Neutrophils % (Manual) 93, Lymphocytes % (Manual) 2, Monocytes % (Manual) 3, Band Neutrophils 2, Blood Morphology Comment NORMAL, Prothrombin Time 15.3H, INR Comment 1.2, Activated Partial Thromboplast Time 26, Sodium Level 140, Potassium Level 3.4L, Chloride Level 102, Carbon Dioxide Level 22, Anion Gap 16H, Blood Urea Nitrogen 29H, Creatinine 1.03, Estimat Glomerular Filtration Rate 52, BUN/Creatinine Ratio 28, Glucose Level 208H, Calcium Level 9.4, Corrected Calcium 9.9, Magnesium Level 1.7, Total Bilirubin 0.7, Aspartate Amino Transf (AST/SGOT) 40H, Alanine Aminotransferase (ALT/SGPT) 64H, Alkaline Phosphatase 126, Total Creatine Kinase 52, Creatine Kinase MB 2.1, Myoglobin 66.6, Troponin I < 0.028, B-Type Natriuretic Peptide 429.2H, Total Protein 6.6, Albumin 3.4, TSH [place] Testing 0.75 10/10/19 22:35: Glucometer 200H 10/10/19 23:23: Urine Color YELLOW, Urine Clarity CLEAR, Urine pH 6.5, Urine Specific [place] 1.015L, Urine Protein TRACE, Urine Glucose (UA) TRACEH, Urine Ketones NEGATIVE, Urine Nitrite NEGATIVE, Urine Bilirubin NEGATIVE, Urine Urobilinogen 0.2, Urine Leukocyte Esterase NEGATIVE, Urine RBC (Auto) TRACE-I, Urine RBC 0-2, Urine WBC 0-2, Urine Crystals NONE, Urine Bacteria TRACE, Urine Casts NONE, Urine Mucus NEGATIVE, Urine Culture Indicated NO 10/11/19 04:40: White Blood Count 13.7H, Red Blood Count 5.07, Hemoglobin 14.2, Hematocrit 45, Mean Corpuscular Volume 89, Mean Corpuscular Hemoglobin 28, Mean Corpuscular Hemoglobin Concent 31L, Red Cell Distribution Width 15.9H, Platelet Count 439H, Mean Platelet Volume 10.3, Neutrophils (%) (Auto) 91H, Lymphocytes (%) (Auto) 4L , Monocytes (%) (Auto) 6, Eosinophils (%) (Auto) 0, Basophils (%) (Auto) 0, Neutrophils # (Auto) 12.5H, Lymphocytes # (Auto) 0.5L, Monocytes # (Auto) 0.8, Eosinophils # (Auto) 0.0, Basophils # (Auto) 0.0, Sodium Level 141, Potassium Level 3.1L, Chloride Level 98, Carbon Dioxide Level 27, Anion Gap 16H, Blood Urea Nitrogen 28H, Creatinine 1.13, Estimat Glomerular Filtration Rate 47, BUN/Creatinine Ratio 25, Glucose Level 196H, Calcium Level 9.7, Corrected Calcium 9.9, Magnesium Level 1.6, Total Bilirubin 0.7, Aspartate Amino Transf (AST/SGOT) 40H, Alanine Aminotransferase (ALT/SGPT) 65H, Alkaline Phosphatase 121, Total Protein 7.2, Albumin 3.8, Procalcitonin 0.03 A/P-Cardiology Assessment/Admission Diagnosis Intractable dizziness, COPD, Mild acute on chronic systolic/diastolic heart failure, Atrial fibrillation with controlled ventricular rate CAD, History of smoking Plan Dizziness. Telemetry. Defer to the primary team. Leukocytosis. Sepsis needs to be ruled out. Defer to the primary team. COPD, defer treatment to Dr. Neal. Mild acute on chronic systolic/diastolic heart failure. BNP over 400 on admission. Previously on discharge BNP was 149. Will likely require Lasix. Atrial fibrillation with controlled ventricular rate, continue Cardizem and oral anticoagulation. CAD, history of PCI and stents. No chest pain. Troponins over the last 4 days 2 have been negative. History of smoking Thank you for your consultation. Please call me if you have any questions. Edwina Bermudez MD, FACP, FACC, FSCAI, FHRS, CCDS Interventional Cardiology Cardiac Electrophysiology Vascular Medicine and Endovascular Interventions Clinical Quality Measures DVT/VTE Risk/Contraindication: Risk Factor Score Per Nursin RFS Level Per Nursing on Admit: 4+=Very High Faby BERMUDEZ MD Oct 11, 2019 14:26
[2019-10-11] MEDS: PIPERACILLIN/TAZOBACTAM (BULK) 4.5 GM in NS (IVPB) 100 ML IV SCH (16:21)
[2019-10-11] MEDS ORDERED: cefTRIAXone 1,000 MG/SWFI 10 ML IV PUSH IV SCH ×2 (21:00)
[2019-10-11] MEDS ORDERED: WATER (STERILE) FOR INJECTION 10 ML ONE (21:13)
[2019-10-11] MEDS ORDERED: cefTRIAXone 1,000 MG IV (ROCEPHIN) VIAL ONE (21:13)
[2019-10-12] MEDS: PIPERACILLIN/TAZOBACTAM (BULK) 4.5 GM in NS (IVPB) 100 ML IV SCH ×2 (00:46→07:49)
[2019-10-12] MEDS: methylPREDNISolone 40 MG/ML (Solu-MEDROL) VIAL IV SCH ×3 (00:46→12:49)
[2019-10-12] MEDS: RT-ALBUTEROL/IPRATROPIUM 3 ML (DUONEB) VIAL INH SCH ×5 (02:15→18:32)
[2019-10-12 04:00] VITALS: BP 156/94
[2019-10-12 06:25] LABS: BASOPHILS % (AUTO) 0 % (0-10); EOSINOPHILS % (AUTO) 0 % (0-10); HEMATOCRIT 40 % (35-52); HEMOGLOBIN 12.4 G/DL (11.5-16.0); LYMPHOCYTES # (AUTO) 0.3 X 10^3 (1.0-4.0); LYMPHOCYTES % (AUTO) 3 % (12-44); MEAN CORPUSCULAR HEMOGLOBIN 29 PG (25-34); MEAN CORPUSCULAR HGB CONC 31 G/DL (32-36); MEAN CORPUSCULAR VOLUME 92 FL (80-99); MEAN PLATELET VOLUME 10.7 FL (7.4-10.4); MONOCYTES # (AUTO) 0.2 X 10^3 (0.0-1.0); MONOCYTES % (AUTO) 2 % (0-12); NEUTROPHILS # (AUTO) 12.1 X 10^3 (1.8-7.8); NEUTROPHILS % (AUTO) 96 % (42-75); PLATELET COUNT 304 10^3/uL (130-400); RED CELL DISTRIBUTION WIDTH 15.5 % (10.0-14.5); WHITE BLOOD COUNT 12.6 10^3/uL (4.3-11.0)
[2019-10-12 06:52] LABS: ALBUMIN 3.1 GM/DL (3.2-4.5); BILIRUBIN,TOTAL 0.6 MG/DL (0.1-1.0); CALCIUM 8.8 MG/DL (8.5-10.1); CREATININE SERUM 1.11 MG/DL (0.60-1.30); POTASSIUM 3.9 MMOL/L (3.6-5.0); TOTAL PROTEIN 5.8 GM/DL (6.4-8.2)
--- NOTE | 2019-10-12 06:52 | Diagnostic Imaging Report ---
INDICATION: Pneumonia Portable chest 3:52 AM There is cardiomegaly. Pulmonary vascularity is upper limits of normal. There are no infiltrates, effusions or pneumothoraces. IMPRESSION: Cardiomegaly with mild pulmonary venous hypertension. The degree of venous congestion appears slightly increased compared to 10/10/2019. Dictated by: Dictated on workstation # [id number]
[2019-10-12 08:00] VITALS: BP 147/98
[2019-10-12] MEDS: APIXABAN 5 MG (ELIQUIS) TABLET PO SCH ×2 (08:48→20:23)
[2019-10-12] MEDS ORDERED: AZITHROMYCIN 250 MG TAB (ZITHROMAX) PO SCH (09:00)
[2019-10-12] MEDS ORDERED: meTOprolol 5 MG/5 ML (LOPRESSOR) VIAL IV NR (09:52)
[2019-10-12 10:41] VITALS: BP 147/98
--- NOTE | 2019-10-12 11:03 | Occupational Therapy Eval ---
OT Evaluation-General/PLF Medical Diagnosis Admission Date Oct 11, 2019 at 02:41 Medical Diagnosis: vertigo/HTN/CHF/pneumonia Onset Date: Oct 11, 2019 Therapy Diagnosis Therapy Diagnosis: impaired ADLs and functional mobility Height/Weight Height (Feet): 5 Height (Inches): 4.00 Weight (Pounds): 170 Weight (Ounces): 0 Precautions Precautions/Isolations: Fall Prevention, Standard Precautions Safety Interventions: Notify Family, Reorient-PRN Referral Physician: Ammon Referral Reason: Self Care Medical History Pertinent Medical History: Atrial Fib, Arthritis, CAD, COPD, HTN, NC, Rheumatoid Arthritis Additional Medical History COPD, pneumonia, CAD, heart attack, high cholesterol, HTN, vertigo, arthritis, RA, anxiety/depression, coronary stent Current History Per H&P: "This is a 74yoWF clinic patient of mine who I just DC the day before when she had improved rapidly after PNA and AECOPD with CHF along with chronic non-compliance with medical treatment and major denial about her medical problem severity who presented to the ER with severe vertigo and severe high BP with evidence of recurrent PNA and hypoxia in need of inpatient status. Patient has become more confused and become angry when questioned about it this most recent admit and completely denies any memory deficit. Patient currently feels better but very tired since she had not had any sleep last night due to admit. Daughter at the bedside who has a phone with speakerphone for her sister to be involved in the conversation. She refused to have HH set up and rehab and skilled at DC yesterday so she went home in improved condition but it is appearing that she will need increasing support in order to return to home to live independently but unsure if she will be open to any of these options. Patient has had a significant decline in the past 2 years becoming more complex medically as the months progress. I told her last time to come to ER in times of illness because of the severity of her medical issues will preclude her from going to an urgent care in the future due to their lack of resources that she will need to be managed appropriately." Reviewed History: Yes Social History Home: Single Level Current Living Status: Spouse ADL-Prior Level of Function SCALE: Activities may be completed with or without assistive devices. 2-Jcqbbdzufv-jmqqvxu completes the activity by him/herself with no assistance from a helper. 5-Set-up or Clean-up Assistance-helper sets up or cleans up; patient completes activity. [place] assists only prior to or following the activity. 4-Supervision or Touching Assistance-helper provides verbal cues and/or touching/steadying and/or contact guard assistance as patient completes activity. Assistance may be provided throughout the activity or intermittently. 3-Partial/Moderate Assistance-helper does LESS THAN HALF the effort. [place] lifts, holds or supports trunk or limbs, but provides less than half the effort. 2-Substantial/Maximal Assistance-helper does MORE THAN HALF the effort. [place] lifts or holds trunk or limbs and provides more than half the effort. 7-Elnqmkipz-yjvboj does ALL the effort. Patient does none of the effort to complete the activity. Or, the assistance of 2 or more helpers is required for the patient to complete the activity. If activity was not attempted, code reason: 7-Patient Refused. 9-Not Applicable-not attempted and the patient did not perform the activity before the current illness, exacerbation or injury. 10-Not Attempted due to Environmental Limitations-(lack of equipment, weather restraints, etc.). 88-Not Attempted due to Medical Conditions or Safety Concerns. ADL PLOF Comments Pt reports she is independent with all ADLs prior to hospitalization, denies needing assistance from her . Pt reports she does not use a walker but she owns one and she is "going to start using a walker". Pt reports having a walk in shower and a tub shower, she denies having a shower chair but is "going to get one". Self Care: Independent Functional Cognition: Independent DME/Equipment: Shower (walk in), Tub/Shower OT Current Status Subjective Pt laying in bed at start of session, stating she is very tired. Pt agreeable to OT evaluation. Mental Status/Objective Patient Orientation: Person, Place, Time, Situation Attachments: IV Current Glasses/Contacts: Yes Hearing Aids: No Dentures/Partials: Yes Hand Dominance: Right Upper Extremity ROM WFL, BUE shoulder flexion to approximately 150 degress, she is able to bend arms and touch the back of her head. Upper Extremity Coordination WFL Upper Extremity Sensation pt denies tingling/numbness Upper Extremity Strength grossly 3+/5 MMT ADL-Treatment Oral Hygiene (QC): 7 Other Treatments Pt laying in bed, provided information about PLOF and home set up. Pt participated in ROM screening. OT encouraged pt to complete ADLs such as brushing her teeth or washing her face, pt denies all ADLs at this time stating she just wants to rest. Pt declines sitting EOB again saying she just wants to rest. Post OT session, pt laying in bed, bed alarm on, call light in reach and all needs met. OT Detention Goals Detention Goals Time Frame: Oct 20, 2019 Eating (QC): 6 Oral Hygiene (QC): 6 Toileting Hygiene (QC): 6 Shower/Bathe Self (QC): 6 Upper Body Dressing (QC): 6 Lower Body Dressing (QC): 6 On/Off Footwear (QC): 6 Additional Goals: 1-Demonstrate ADL Tasks, 2-Verbalize Understanding, 3- ImproveStrength/Rex 1=Demonstrate adherence to instructed precautions during ADL tasks. 2=Patient will verbalize/demonstrate understanding of assistive devices/modifications for ADL. 3=Patient will improve strength/tolerance for activity to enable patient to perform ADL's. OT Education/Plan Problem List/Assessment Assessment: Decreased Activ Tolerance, Decreased UE Strength, Impaired I ADL's, Impaired Self-Care Skills Discharge Recommendations Plan/Recommendations: Continue POC Treatment Plan/Plan of Care Treatment,Training & Education: Yes Patient would benefit from OT for education, treatment and training to promote independence in ADL's, mobility, safety and/or upper extremity function for ADL's. Plan of Care: ADL Retraining, Caregiver Training, Functional Mobility, UE Funct Exercise/Act Treatment Duration: Oct 20, 2019 Frequency: 5 times per week Estimated Hrs Per Day: .25 hour per day Agreement: Yes Rehab Potential: Guarded Time/GCodes Start Time: 10:45 Stop Time: 10:53 Total Time Billed (hr/min): 8 Billed Treatment Time 1, SAY HENLEY OT Oct 12, 2019 11:03
[2019-10-12 12:00] VITALS: BP 156/96
[2019-10-12] MEDS ORDERED: LACTATED RINGERS 1,000 ML IV NR (12:45)
--- NOTE | 2019-10-12 13:52 | Physical Therapy Evaluation ---
PT Evaluation-General Medical Diagnosis Admission Date Oct 11, 2019 at 02:41 Medical Diagnosis: vertigo/HTN/CHF/pneumonia Onset Date: Oct 11, 2019 Therapy Diagnosis Therapy Diagnosis: weakness; abn gait Height/Weight Height (Feet): 5 Height (Inches): 4.00 Weight (Pounds): 170 Weight (Ounces): 0 Precautions Precautions/Isolations: Fall Prevention, Standard Precautions Referral Physician: Ammon Reason for Referral: Evaluation/Treatment Medical History Pertinent Medical History: Atrial Fib, Arthritis, CAD, COPD, HTN, MD, Rheumatoid Arthritis Current History Admitted due to severe vertigo Reviewed History: Yes Social History Home: Single Level Current Living Status: Spouse Prior Prior Level of Function SCALE: Activities may be completed with or without assistive devices. 3-Zwwbhsymdh-rgmaesa completes the activity by him/herself with no assistance from a helper. 5-Set-up or Clean-up Assistance-helper sets up or cleans up; patient completes activity. [place] assists only prior to or following the activity. 4-Supervision or Touching Assistance-helper provides verbal cues and/or touching/steadying and/or contact guard assistance as patient completes activi ty. Assistance may be provided throughout the activity or intermittently. 3-Partial/Moderate Assistance-helper does LESS THAN HALF the effort. [place] lifts, holds or supports trunk or limbs, but provides less than half the effort. 2-Substantial/Maximal Assistance-helper does MORE THAN HALF the effort. [place] lifts or holds trunk or limbs and provides more than half the effort. 4-Ilzsfrxga-ursjym does ALL the effort. Patient does none of the effort to complete the activity. Or, the assistance of 2 or more helpers is required for the patient to complete the activity. If activity was not attempted, code reason: 7-Patient Refused. 9-Not Applicable-not attempted and the patient did not perform the activity before the current illness, exacerbation or injury. 10-Not Attempted due to Environmental Limitations-(lack of equipment, weather restraints, etc.). 88-Not Attempted due to Medical Conditions or Safety Concerns. Bed Mobility: 6 Transfers (B,C,W/C): 6 Gait: 6 Indoor Mobility (Ambulation): Independent Stairs: Independent PT Evaluation-Current Subjective Pt agreeable. Denies dizziness at this time. "How am I going to get better if you don't let me do things by myself" Pt asks this as this therapist assists with transfers and mobility Pain Numeric Pain Scale: 0-No Pain Location: No Pain Reported Objective Patient Orientation: Person, Confused, Place, Time, Situation Attachments: IV ROM/Strength ROM Lower Extremities wFL Strength Lower Extremities grossly 4-5 Integumentary/Posture Integumentary refer to nursing notes. Bowel Incontinence: No Bladder Incontinence: No Posture normal and symmetrical Neuromuscular (Tone, Coordination, Reflexes) intact and functional Sensory Vision: Functional Hearing: Functional Hand Dominance: Right Sensation Right Lower Extremit: Intact Sensation Left Lower Extremity: Intact Transfers Roll Left to Right (QC): 4 Sit to Lying (QC): 3 (min assist to sit up with cues for sequencing. ) Lying to Sitting/Side of Bed(Q: 3 Sit to Stand (QC): 3 (min assist for balance and to steady the patient. ) Toilet Transfer: 4 Min to CGA with all functional transfers due to safety issues and decreased safety awreness. Pt tends to stand up unsupervised and requires cues for safety. Gait Does the Patient Walk?: Yes Mode of Locomotion: Walk Anticipated Mode of Locomotion: Walk Walk 10 feet (QC): 2 Walk 50 ft with 2 Turns(QC): 2 (mod to max assist due to assist with walker) Gait Assistive Device: FWW Comments/Gait Description Pt unsafe with walker use, she abandons the walker and has difficulty managing it with obstacles such as the doorway or in the bathroom. She required heavy assist to manage the walker and without intervention, would become entangled in the device and likely fall. During turning, she steps outside the walker and often tangles her feet in the legs. Unsafe to attempt to ambulate without assist. path is staggered and she needs heavy cues to sequence. Unsteady at times, requiring min assist for balance. Balance Sitting Static: Good Sitting Dynamic: Good Standing Static: Poor Standing Dynamic: Poor Treatment Pt toileted and ambulated in the room; she stood at the sink to wash her hands. Assessment/Needs Pt presents with impaired functional strength and balance as well as impaired safety awareness that limits safe transfers and gait; she has difficulty managing the walker and often entangles her feet and the walker or has difficulty avoiding obstacles with her walker. She is unsafe to mobilize without assist and has difficulty following cues. She will benefit from skilled intervention to address mobility and safety to allow her to return home as before. Rehab Potential: Guarded PT [facility] Goals Atmospheric Chemist Goals PT [facility] Goals Time Frame: Oct 19, 2019 Roll Left & Right (QC): 6 Sit to Lying (QC): 6 Lying-Sitting on Side/Bed(QC): 6 Sit to Stand (QC): 6 Chair/Nmn-xl-Gqtue Xfer(QC): 6 Toilet Transfer (QC): 6 Walk 10 feet (QC): 6 Walk 50ft with 2 Turns (QC): 6 Walk 150 ft (QC): 6 PT Plan Problem List Problem List: Activity Tolerance, Functional Strength, Safety, Balance, Gait, Transfer, Bed Mobility Treatment/Plan Treatment Plan: Continue Plan of Care Treatment Plan: Bed Mobility, Education, Functional Activity Rex, Functional Strength, Gait, Safety, Therapeutic Exercise, Transfers Treatment Duration: Oct 19, 2019 Frequency: 5 times per week (to 6 ) Estimated Hrs Per Day: .25 hour per day Safety Risks/Education Patient Education: Gait Training, Transfer Techniques, Safety Issues Teaching Recipient: Patient Teaching Methods: Demonstration, Discussion Response to Teaching: Reinforcement Needed Discharge Recommendations Therapy Discharge Recommendati: Post Acute PT Time/GCodes Time In: 1115 Time Out: 1145 Total Billed Treatment Time: 30 Total Billed Treatment visit EVM 15 GT 15 JENELLE DOMINIQUE PT Oct 12, 2019 13:52
[2019-10-12] MEDS ORDERED: RT-ALBUTEROL/IPRATROPIUM 3 ML (DUONEB) VIAL INH PRN (15:00)
[2019-10-12 15:54] VITALS: BP 167/83
--- NOTE | 2019-10-12 16:08 | Progress Note - Hospitalist ---
Subjective HPI/CC On Admission Date Seen by Provider: Oct 12, 2019 Time Seen by Provider: 09:30 CC: Severe vertigo with HTN urgency HPI: This is a 74yoWF clinic patient of mine who I just DC the day before when she had improved rapidly after PNA and AECOPD with CHF along with chronic non- compliance with medical treatment and major denial about her medical problem severity who presented to the ER with severe vertigo and severe high BP with evidence of recurrent PNA and hypoxia in need of inpatient status. Patient has become more confused and become angry when questioned about it this most recent admit and completely denies any memory deficit. Patient currently feels better but very tired since she had not had any sleep last night due to admit. Daughter at the bedside who has a phone with speakerphone for her sister to be involved in the conversation. She refused to have HH set up and rehab and skilled at [place] yesterday so she went home in improved condition but it is appearing that she will need increasing support in order to return to home to live independently but unsure if she will be open to any of these options. Patient has had a significant decline in the past 2 years becoming more complex medically as the months progress. I told her last time to come to ER in times of illness because of the severity of her medical issues will preclude her from going to an urgent care in the future due to their lack of resources that she will need to be managed appropriately. Subjective/Events-last exam She reports that she has been feeling very weak. She denies having any falls at home, but had a fall here yesterday. She does not feel dizzy at this time but when she stands up she does feel dizzy. She denies any fevers, chills, chest pain. She denies any nausea, vomiting, abdominal pain, or diarrhea. Objective Exam Vital Signs Vital Signs Date Time Temp Pulse Resp B/P (MAP) Pulse Ox O2 Delivery O2 Flow Rate FiO2 10/12/19 15:31 93 Room Air 10/12/19 13:00 108 10/12/19 12:00 36.2 18 156/96 (116) 10/12/19 10:41 21 10/11/19 23:32 2.00 Capillary Refill : Less Than 3 Seconds General Appearance: No Apparent Distress, WD/WN HEENT: PERRL/EOMI, Pharynx Normal Neck: Normal Inspection, Supple Respiratory: Lungs Clear, Normal Breath Sounds, No Respiratory Distress Cardiovascular: Regular Rate, Rhythm, No Edema, No Murmur Gastrointestinal: Normal Bowel Sounds, Non Tender, Soft Extremity: Normal Inspection, Non Tender, No Pedal Edema Neurologic/Psychiatric: Alert, Oriented x3, No Motor/Sensory Deficits, Normal Mood/Affect Skin: Normal Color, Warm/Dry Lymphatic: No Adenopathy Results/Procedures Lab Laboratory Tests 10/12/19 05:30 Patient resulted labs reviewed. Imaging: Reviewed Imaging Report Assessment/Plan Assessment and Plan Assess & Plan/Chief Complaint Orthostatic hypotension Orthostatic vitals this morning positive for orthostasis Giving 1 L LR bolus this morning Continue LR 100 mL per hour overnight Reevaluate tomorrow morning Community acquired pneumonia COPD with acute exacerbation Recently treated for pneumonia Chest x-ray improved Procalcitonin normal Will discontinue antibiotics at this time Continue steroids, decreased dose Transition to prednisone tomorrow MAT protocol Paroxysmal atrial fibrillation Continue Eliquis Continue Coreg and diltiazem Steroid-induced hyperglycemia Sliding scale insulin Chronic kidney disease Stable, continue to monitor Debility Continue PT/OT Will consider IRF eval once medically stable DVT prophylaxis: Already receiving therapeutic anticoagulation Diagnosis/Problems Diagnosis/Problems (1) Orthostatic hypotension Status: Acute (2) COPD with acute exacerbation Status: Acute (3) Paroxysmal atrial fibrillation Status: Chronic Clinical Quality Measures DVT/VTE Risk/Contraindication: Risk Factor Score Per Nursin RFS Level Per Nursing on Admit: 4+=Very High CATRACHITO RAMOS MD Oct 12, 2019 16:08
[2019-10-12] MEDS: LACTATED RINGERS 1,000 ML IV SCH (16:26)
[2019-10-12] MEDS: inSUlin ASPART (NovoLOG) 1 UNIT/0.01 ML (CHARGE PER UNIT) SC SCH ×2 (17:01→21:15)
[2019-10-12] MEDS: CARVEDILOL 6.25 MG (COREG) TAB PO SCH (20:23)
[2019-10-12 20:24] VITALS: BP 171/89
[2019-10-12] MEDS ORDERED: methylPREDNISolone 40 MG/ML (Solu-MEDROL) VIAL IV SCH (21:00)
[2019-10-13] VITALS (8 sets, daily range): BP systolic 134–181; BP diastolic 78–111
[2019-10-13] MEDS ORDERED: DILTIAZEM 120 MG (CARDIZEM CD) CAP PO ONE (01:05)
[2019-10-13] MEDS: LACTATED RINGERS 1,000 ML IV SCH ×3 (01:12→22:10)
[2019-10-13 05:30] LABS: CALCIUM 8.8 MG/DL (8.5-10.1); POTASSIUM 3.8 MMOL/L (3.6-5.0)
[2019-10-13] MEDS ORDERED: amLODIPine 5 MG (NORVASC) TAB PO ONE (05:30)
[2019-10-13] MEDS: inSUlin ASPART (NovoLOG) 1 UNIT/0.01 ML (CHARGE PER UNIT) SC SCH ×4 (05:38→21:47)
[2019-10-13] MEDS: predniSONE 20 MG TAB PO SCH (06:06)
[2019-10-13] MEDS: RT-ALBUTEROL/IPRATROPIUM 3 ML (DUONEB) VIAL INH SCH ×5 (07:09→20:54)
[2019-10-13] MEDS: APIXABAN 5 MG (ELIQUIS) TABLET PO SCH ×2 (08:52→21:15)
[2019-10-13] MEDS: DILTIAZEM 240 MG (CARDIZEM CD) CAP PO SCH (08:52)
[2019-10-13] MEDS: CARVEDILOL 6.25 MG (COREG) TAB PO SCH (08:52)
[2019-10-13] MEDS ORDERED: DILTIAZEM 120 MG (CARDIZEM CD) CAP PO SCH (09:00)
--- NOTE | 2019-10-13 09:45 | Occupational Ther Daily Note ---
OT Current Status-Daily Note Subjective Pt laying in bed at start of session with daughter present. Pt agreeable to OT tx but declined ADLs at this time stating she just took a shower and has already done ADLs this AM. Pt agreed to BUE exercises, she did not report any pain. ADL-Treatment Therapy Code Descriptions/Definitions Functional [place] Measure: 0=Not Assessed/NA 4=Minimal Assistance 1=Total Assistance 5=Supervision or Setup 2=Maximal Assistance 6=Modified [place] 3=Moderate Assistance 7=Complete IndependenceSCALE: Activities may be completed with or without assistive devices. 2-Wtvpvkjmqu-plfiuqg completes the activity by him/herself with no assistance from a helper. 5-Set-up or Clean-up Assistance-helper sets up or cleans up; patient completes activity. [place] assists only prior to or following the activity. 4-Supervision or Touching Assistance-helper provides verbal cues and/or touching/steadying and/or contact guard assistance as patient completes activity. Assistance may be provided throughout the activity or intermittently. 3-Partial/Moderate Assistance-helper does LESS THAN HALF the effort. [place] lifts, holds or supports trunk or limbs, but provides less than half the effort. 2-Substantial/Maximal Assistance-helper does MORE THAN HALF the effort. [place] lifts or holds trunk or limbs and provides more than half the effort. 0-Gasqsgnea-qjjrid does ALL the effort. Patient does none of the effort to complete the activity. Or, the assistance of 2 or more helpers is required for the patient to complete the activity. If activity was not attempted, code reason: 7-Patient Refused. 9-Not Applicable-not attempted and the patient did not perform the activity before the current illness, exacerbation or injury. 10-Not Attempted due to Environmental Limitations-(lack of equipment, weather restraints, etc.). 88-Not Attempted due to Medical Conditions or Safety Concerns. Other Treatment Pt laying in bed, completed BUE exercises in order to increase functional endurance and strength. Pt completed x20 elbow flexion, x15 shoulder flexion, and x15 front punch, with rest breaks between exercises. Post OT session, pt laying in bed, call light in reach and all needs met. Education OT Patient Education: Correct positioning, Energy conservation, Exercise program, Progress toward Goal/Update tx plan, Purpose of tx/functional activities Teaching Recipient: Patient Teaching Methods: Demonstration, Discussion Response to Teaching: Verbalize Understanding, Return Demonstration OT Half-Way Goals Half-Way Goals Time Frame: Oct 20, 2019 Eating (QC): 6 Oral Hygiene (QC): 6 Toileting Hygiene (QC): 6 Shower/Bathe Self (QC): 6 Upper Body Dressing (QC): 6 Lower Body Dressing (QC): 6 On/Off Footwear (QC): 6 Additional Goals: 1-Demonstrate ADL Tasks, 2-Verbalize Understanding, 3-Impr oveStrength/Rex 1=Demonstrate adherence to instructed precautions during ADL tasks. 2=Patient will verbalize/demonstrate understanding of assistive devices/modifications for ADL. 3=Patient will improve strength/tolerance for activity to enable patient to perform ADL's. OT Education/Plan Problem List/Assessment Assessment: Decreased Activ Tolerance, Decreased UE Strength, Impaired I ADL's, Impaired Self-Care Skills Discharge Recommendations Plan/Recommendations: Continue POC Treatment Plan/Plan of Care Treatment,Training & Education: Yes Patient would benefit from OT for education, treatment and training to promote independence in ADL's, mobility, safety and/or upper extremity function for ADL's. Plan of Care: ADL Retraining, Caregiver Training, Functional Mobility, UE Funct Exercise/Act Treatment Duration: Oct 20, 2019 Frequency: 5 times per week Estimated Hrs Per Day: .25 hour per day Agreement: Yes Rehab Potential: Guarded Time/GCodes Start Time: 09:19 Stop Time: 09:29 Total Time Billed (hr/min): 10 Billed Treatment Time 1, EX SAY ROMANO OT Oct 13, 2019 09:45
--- NOTE | 2019-10-13 11:42 | Physical Therapy Daily Note ---
PT Daily Note-Current Subjective Patient in bed pre tx, agrees to PT reluctantly, has no complaints of pain. Appearance Patient in recliner post tx with nurse call, phone, tray, chair alarm on, family in the room. Mental Status Patient Orientation: Person, Confused Attachments: IV Transfers SCALE: Activities may be completed with or without assistive devices. 7-Oapozoubxa-rvqbscy completes the activity by him/herself with no assistance from a helper. 5-Set-up or Clean-up Assistance-helper sets up or cleans up; patient completes activity. [place] assists only prior to or following the activity. 4-Supervision or Touching Assistance-helper provides verbal cues and/or touching/steadying and/or contact guard assistance as patient completes a ctivity. Assistance may be provided throughout the activity or intermittently. 3-Partial/Moderate Assistance-helper does LESS THAN HALF the effort. [place] lifts, holds or supports trunk or limbs, but provides less than half the effort. 2-Substantial/Maximal Assistance-helper does MORE THAN HALF the effort. [place] lifts or holds trunk or limbs and provides more than half the effort. 5-Awzyuovud-dqvpaq does ALL the effort. Patient does none of the effort to complete the activity. Or, the assistance of 2 or more helpers is required for the patient to complete the activity. If activity was not attempted, code reason: 7-Patient Refused. 9-Not Applicable-not attempted and the patient did not perform the activity before the current illness, exacerbation or injury. 10-Not Attempted due to Environmental Limitations-(lack of equipment, weather restraints, etc.). 88-Not Attempted due to Medical Conditions or Safety Concerns. Roll Left & Right (QC): 3 Lying to Sitting/Side of Bed(Q: 3 Sit to Stand (QC): 4 Chair/Qpk-nf-Mktbn Xfer(QC): 3 Patient needs min assist for supine -> sit, has a tendency to fall backward when sitting, needs min assist for sitting balance. Patient needs min assist to help guide walker during transfers. Patient is impulsive and easily distracted and follows directions poorly. Gait Training Distance: 200' Walk 10 feet (QC): 3 Walk 50 ft with 2 Turns(QC): 3 Walk 150 ft (QC): 3 Gait Assistive Device: FWW Patient ambulates in a distracted manner, she tries to ambulate sideways so she can look at people and then blames her walker when she has trouble ambulating with it. Patient is very impulsive. 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 [facility] Goals PT [facility] Goals Time Frame: Oct 19, 2019 Roll Left & Right (QC): 6 Sit to Lying (QC): 6 Lying-Sitting on Side/Bed(QC): 6 Sit to Stand (QC): 6 Chair/Jpc-zj-Qedny Xfer(QC): 6 Toilet Transfer (QC): 6 Walk 10 feet (QC): 6 Walk 50ft with 2 Turns (QC): 6 Walk 150 ft (QC): 6 PT Plan Problem List Problem List: Activity Tolerance, Functional Strength, Safety, Balance, Gait, Transfer, Bed Mobility Treatment/Plan Treatment Plan: Continue Plan of Care Treatment Plan: Bed Mobility, Education, Functional Activity Rex, Functional Strength, Gait, Safety, Therapeutic Exercise, Transfers Treatment Duration: Oct 19, 2019 Frequency: 5 times per week (to 6 ) Estimated Hrs Per Day: .25 hour per day Safety Risks/Education Patient Education: Gait Training, Transfer Techniques, Correct Positioning, Safety Issues Teaching Recipient: Patient Teaching Methods: Demonstration, Discussion Response to Teaching: Reinforcement Needed Time/GCodes Time In: 1120 Time Out: 1132 Total Billed Treatment Time: 12 Total Billed Treatment 1 visit FA XIAO SANCHEZ PT Oct 13, 2019 11:42
--- NOTE | 2019-10-13 14:49 | Progress Note - Hospitalist ---
Subjective HPI/CC On Admission Date Seen by Provider: Oct 13, 2019 Time Seen by Provider: 09:20 CC: Severe vertigo with HTN urgency HPI: This is a 74yoWF clinic patient of mine who I just DC the day before when she had improved rapidly after PNA and AECOPD with CHF along with chronic non- compliance with medical treatment and major denial about her medical problem severity who presented to the ER with severe vertigo and severe high BP with evidence of recurrent PNA and hypoxia in need of inpatient status. Patient has become more confused and become angry when questioned about it this most recent admit and completely denies any memory deficit. Patient currently feels better but very tired since she had not had any sleep last night due to admit. Daughter at the bedside who has a phone with speakerphone for her sister to be involved in the conversation. She refused to have HH set up and rehab and skilled at [place] yesterday so she went home in improved condition but it is appearing that she will need increasing support in order to return to home to live independently but unsure if she will be open to any of these options. Patient has had a significant decline in the past 2 years becoming more complex medically as the months progress. I told her last time to come to ER in times of illness because of the severity of her medical issues will preclude her from going to an urgent care in the future due to their lack of resources that she will need to be managed appropriately. Subjective/Events-last exam She reports feeling better this morning. She reports that she has gotten up out of bed and did not feel lightheaded or dizzy. She denies any chest pain, shortness of breath, abdominal pain, nausea, vomiting, or diarrhea. Objective Exam Vital Signs Vital Signs Date Time Temp Pulse Resp B/P (MAP) Pulse Ox O2 Delivery O2 Flow Rate FiO2 10/13/19 12:00 36.2 106 20 166/98 (120) 91 Nasal Cannula 2.00 10/12/19 10:41 21 Capillary Refill : Less Than 3 Seconds General Appearance: No Apparent Distress, WD/WN, Obese HEENT: PERRL/EOMI, Pharynx Normal Neck: Normal Inspection, Supple Respiratory: Lungs Clear, Normal Breath Sounds, No Respiratory Distress Cardiovascular: Regular Rate, Rhythm, No Edema, No Murmur Gastrointestinal: Normal Bowel Sounds, Non Tender, Soft Extremity: Normal Inspection, Non Tender, No Pedal Edema Neurologic/Psychiatric: Alert, Oriented x3, No Motor/Sensory Deficits, Normal Mood/Affect Skin: Normal Color, Warm/Dry Lymphatic: No Adenopathy Results/Procedures Lab Laboratory Tests 10/13/19 04:50 Patient resulted labs reviewed. Imaging: Reviewed Imaging Report Assessment/Plan Assessment and Plan Assess & Plan/Chief Complaint Orthostatic hypotension Orthostatic vitals negative this morning Orthostasis resolved COPD with acute exacerbation Continue steroids MAT protocol Paroxysmal atrial fibrillation Continue Eliquis Continue Coreg and diltiazem Steroid-induced hyperglycemia Sliding scale insulin Chronic kidney disease Stable, continue to monitor Debility Continue PT/OT Plan for IRF transfer tomorrow DVT prophylaxis: Already receiving therapeutic anticoagulation Diagnosis/Problems Diagnosis/Problems (1) Orthostatic hypotension Status: Acute (2) COPD with acute exacerbation Status: Acute (3) Paroxysmal atrial fibrillation Status: Chronic Clinical Quality Measures DVT/VTE Risk/Contraindication: Risk Factor Score Per Nursin RFS Level Per Nursing on Admit: 4+=Very High CATRACHITO RAMOS MD Oct 13, 2019 14:49
--- NOTE | 2019-10-13 17:42 | Cardiology Progress Note ---
Cardiology SOAP Progress Note Subjective: No significant cardiac complaints. Objective: I&O/Vital Signs 10/13/19 10/13/19 10/13/19 10/13/19 06:42 07:11 08:00 08:00 Temp 36.4 Pulse 85 103 101 Resp 18 B/P (MAP) 141/97 (112) 156/94 (114) 169/101 (123) Pulse Ox 93 90 O2 Delivery Room Air Room Air 10/13/19 10/13/19 10/13/19 10/13/19 08:00 08:00 08:00 11:17 Pulse 92 103 B/P (MAP) 142/89 (106) 156/94 (114) Pulse Ox 92 87 O2 Delivery Room Air Room Air 10/13/19 10/13/19 10/13/19 12:00 15:50 16:00 Temp 36.2 36.6 Pulse 106 90 Resp 20 20 B/P (MAP) 166/98 (120) 134/78 (96) Pulse Ox 91 90 94 O2 Delivery Nasal Cannula Room Air Room Air O2 Flow Rate 2.00 10/13/19 00:00 Intake Total 2120 ml Output Total 600 ml Balance 1520 ml Weight (Pounds): 170 Weight (Ounces): 0 Weight (Calculated Kilograms): [id number] Constitutional: appears stated age, AAO x 3; No apparent distress; well- developed, well-nourished Respiratory: chest is bilaterally symmetric, lungs clear to auscultation Cardiovascular: irregularly irregular, S1 and S2 Gastrointestional: soft, audible bowel sounds; No spleenomegaly Extremities: normal range of motion, non-tender, normal inspection; No clubbing, No cyanosis; no lower extremity edema bilateral; No significant edema Neurologic/Psychiatric: no motor/sensory deficits, alert, normal mood/affect, oriented x 3, power is 5/5 both on sides Skin: normal color; No rash, No ulcerations Results/Procedures: Labs Laboratory Tests 10/12/19 21:03: Glucometer 170H 10/13/19 04:50: Sodium Level 140, Potassium Level 3.8, Chloride Level 102, Carbon Dioxide Level 24, Anion Gap 14, Blood Urea Nitrogen 34H, Creatinine 1.00, Estimat Glomerular Filtration Rate 54, BUN/Creatinine Ratio 34, Glucose Level 207H, Calcium Level 8.8 10/13/19 11:17: Glucometer 152H 10/13/19 15:49: Glucometer 178H Microbiology 10/11/19 MRSA Screen - Final, Complete MRSA not isolated A/P: Assessment/Dx: Intractable dizziness, COPD, Mild acute on chronic systolic/diastolic heart failure, Atrial fibrillation with controlled ventricular rate CAD, History of smoking Plan: Dizziness. Telemetry. Defer to the primary team. Leukocytosis. Sepsis needs to be ruled out. Defer to the primary team. COPD, defer treatment to Dr. Verde. Mild acute on chronic systolic/diastolic heart failure. BNP over 400 on admission. Previously on discharge BNP was 149. Will likely require Lasix. Atrial fibrillation with controlled ventricular rate, continue Cardizem and oral anticoagulation. CAD, history of PCI and stents. No chest pain. Troponins over the last 4 days 2 have been negative. History of smoking Thank you for your consultation. Please call me if you have any questions. Edwina Bermudez MD, FACP, FACC, FSCAI, FHRS, CCDS Interventional Cardiology Cardiac Electrophysiology Vascular Medicine and Endovascular Interventions Faby BERMUDEZ MD Oct 13, 2019 17:42
[2019-10-13] MEDS ORDERED: CARVEDILOL 6.25 MG (COREG) TAB PO SCH (21:00)
[2019-10-13] MEDS: CARVEDILOL 12.5 MG (COREG) TABLET PO SCH (21:15)
[2019-10-14] VITALS: BP 155/89
[2019-10-14 03:50] VITALS: BP 143/87
[2019-10-14 06:10] LABS: BASOPHILS % (AUTO) 0 % (0-10); EOSINOPHILS # (AUTO) 0.1 10^3/uL (0.0-0.3); EOSINOPHILS % (AUTO) 0 % (0-10); HEMATOCRIT 40 % (35-52); HEMOGLOBIN 12.7 G/DL (11.5-16.0); LYMPHOCYTES # (AUTO) 1.1 X 10^3 (1.0-4.0); LYMPHOCYTES % (AUTO) 6 % (12-44); MEAN CORPUSCULAR HEMOGLOBIN 29 PG (25-34); MEAN CORPUSCULAR HGB CONC 32 G/DL (32-36); MEAN CORPUSCULAR VOLUME 91 FL (80-99); MEAN PLATELET VOLUME 10.5 FL (7.4-10.4); MONOCYTES # (AUTO) 1.2 X 10^3 (0.0-1.0); MONOCYTES % (AUTO) 7 % (0-12); NEUTROPHILS # (AUTO) 16.5 X 10^3 (1.8-7.8); NEUTROPHILS % (AUTO) 88 % (42-75); PLATELET COUNT 322 10^3/uL (130-400); RED CELL DISTRIBUTION WIDTH 15.2 % (10.0-14.5); WHITE BLOOD COUNT 18.8 10^3/uL (4.3-11.0)
[2019-10-14] MEDS: SCOPOLAMINE 1.5 MG (TRANSDERM-SCOP) PATCH TOP SCH (06:28)
[2019-10-14] MEDS: predniSONE 20 MG TAB PO SCH (06:30)
[2019-10-14 06:36] LABS: ALANINE AMINOTRANSFERASE 56 U/L (0-55); ALBUMIN 3.1 GM/DL (3.2-4.5); ALKALINE PHOSPHATASE 89 U/L (40-136); BILIRUBIN,TOTAL 0.9 MG/DL (0.1-1.0); BUN/CREATININE RATIO 32; CALCIUM 8.8 MG/DL (8.5-10.1); CARBON DIOXIDE 26 MMOL/L (21-32); CHLORIDE 102 MMOL/L (98-107); CREATININE SERUM 0.81 MG/DL (0.60-1.30); GFR ESTIMATED > 60; GLUCOSE 112 MG/DL (70-105); POTASSIUM 3.7 MMOL/L (3.6-5.0); SODIUM 140 MMOL/L (135-145); TOTAL PROTEIN 5.7 GM/DL (6.4-8.2)
[2019-10-14] MEDS: inSUlin ASPART (NovoLOG) 1 UNIT/0.01 ML (CHARGE PER UNIT) SC SCH (06:38)
[2019-10-14] MEDS: RT-ALBUTEROL/IPRATROPIUM 3 ML (DUONEB) VIAL INH SCH (07:19)
[2019-10-14 07:37] VITALS: BP 162/94
[2019-10-14] MEDS: CARVEDILOL 12.5 MG (COREG) TABLET PO SCH (08:12)
[2019-10-14] MEDS: LACTATED RINGERS 1,000 ML IV SCH (08:12)
[2019-10-14] MEDS: DILTIAZEM 240 MG (CARDIZEM CD) CAP PO SCH (08:12)
[2019-10-14] MEDS: APIXABAN 5 MG (ELIQUIS) TABLET PO SCH (08:12)
--- NOTE | 2019-10-14 14:14 | Cardiology Progress Note ---
Cardiology SOAP Progress Note Subjective: No cardiac complaints. Complains of tiredness. Objective: I&O/Vital Signs 10/14/19 10/14/19 10/14/19 10/14/19 03:50 07:19 07:37 08:00 Temp 36.5 36.5 Pulse 60 91 Resp 22 20 B/P (MAP) 143/87 (105) 162/94 (116) Pulse Ox 94 92 93 93 O2 Delivery Room Air Room Air Room Air Room Air 10/14/19 10:00 B/P (MAP) 10/14/19 00:00 Intake Total 3020 ml Output Total 600 ml Balance 2420 ml Weight (Pounds): 170 Weight (Ounces): 0 Weight (Calculated Kilograms): 77.118729 Constitutional: appears stated age, AAO x 3; No apparent distress; well- developed, well-nourished Respiratory: chest is bilaterally symmetric, lungs clear to auscultation Cardiovascular: irregularly irregular, S1 and S2 Gastrointestional: soft, audible bowel sounds; No spleenomegaly Extremities: normal range of motion, non-tender, normal inspection; No clubbing, No cyanosis; no lower extremity edema bilateral; No significant edema Neurologic/Psychiatric: no motor/sensory deficits, alert, normal mood/affect, oriented x 3, power is 5/5 both on sides Skin: normal color; No rash, No ulcerations Results/Procedures: Labs Laboratory Tests 10/13/19 15:49: Glucometer 178H 10/13/19 21:35: Glucometer 199H 10/14/19 05:32: White Blood Count 18.8H, Red Blood Count 4.37, Hemoglobin 12.7, Hematocrit 40, Mean Corpuscular Volume 91, Mean Corpuscular Hemoglobin 29, Mean Corpuscular Hemoglobin Concent 32, Red Cell Distribution Width 15.2H, Platelet Count 322, Mean Platelet Volume 10.5H, Neutrophils (%) (Auto) 88H, Lymphocytes (%) (Auto) 6L, Monocytes (%) (Auto) 7, Eosinophils (%) (Auto) 0, Basophils (%) (Auto) 0, Neutrophils # (Auto) 16.5H, Lymphocytes # (Auto) 1.1, Monocytes # (Auto) 1.2H, Eosinophils # (Auto) 0.1, Basophils # (Auto) 0.0, Sodium Level 140, Potassium Level 3.7, Chloride Level 102, Carbon Dioxide Level 26, Anion Gap 12, Blood Urea Nitrogen 26H, Creatinine 0.81, Estimat Glomerular Filtration Rate > 60, BUN/Creatinine Ratio 32, Glucose Level 112H, Calcium Level 8.8, Corrected Calcium 9.5, Total Bilirubin 0.9, Aspartate Amino Transf (AST/SGOT) 35H, Alanine Aminotransferase (ALT/SGPT) 56H, Alkaline Phosphatase 89, Total Protein 5.7L, Albumin 3.1L 10/14/19 06:34: Glucometer 110 Microbiology 10/11/19 MRSA Screen - Final, Complete MRSA not isolated A/P: Assessment/Dx: Intractable dizziness, COPD, Mild acute on chronic systolic/diastolic heart failure, Atrial fibrillation with controlled ventricular rate CAD, History of smoking Plan: Dizziness. Telemetry. Defer to the primary team. Leukocytosis. Sepsis needs to be ruled out. Defer to the primary team. COPD, defer treatment to Dr. Verde. Mild acute on chronic systolic/diastolic heart failure. BNP over 400 on admission. Previously on discharge BNP was 149. Will likely require Lasix. Atrial fibrillation with controlled ventricular rate, continue Cardizem and oral anticoagulation. CAD, history of PCI and stents. No chest pain. Troponins over the last 4 days 2 have been negative. History of smoking Thank you for your consultation. Please call me if you have any questions. Edwina Bermudez MD, FACP, FACC, FSCAI, FHRS, CCDS Interventional Cardiology Cardiac Electrophysiology Vascular Medicine and Endovascular Interventions Faby BERMUDEZ MD Oct 14, 2019 14:14
--- NOTE | 2019-10-14 14:23 | Discharge Summary ---
Discharge Summary Hospital Course Problems/Dx: (1) Orthostatic hypotension Status: Resolved (2) COPD with acute exacerbation Status: Resolved (3) Paroxysmal atrial fibrillation Status: Chronic Hospital Course Date of Admission: Oct 11, 2019 at 02:41 Admission Diagnosis : vertigo Family Physician/Provider: Terese Verde DO Date of Discharge: 10/14/19 Discharge Diagnosis: orthostatic hypotension Hospital Course: Lindsay Lee is a 74-year-old female who presented with vertigo. She was initially thought to have a pneumonia but this was then rolled out. She had orthostatic vital signs which revealed orthostatic hypotension. She was given IV fluid resuscitation and this resolved. She had ongoing weakness and was evaluated by PT/OT/inpatient rehabilitation. Inpatient rehabilitation accepted her for transfer for ongoing therapies. Labs and Pending Lab Test: Laboratory Tests 10/13/19 15:49: Glucometer 178H 10/13/19 21:35: Glucometer 199H 10/14/19 05:32: White Blood Count 18.8H, Red Blood Count 4.37, Hemoglobin 12.7, Hematocrit 40, Mean Corpuscular Volume 91, Mean Corpuscular Hemoglobin 29, Mean Corpuscular Hemoglobin Concent 32, Red Cell Distribution Width 15.2H, Platelet Count 322, Mean Platelet Volume 10.5H, Neutrophils (%) (Auto) 88H, Lymphocytes (%) (Auto) 6L, Monocytes (%) (Auto) 7, Eosinophils (%) (Auto) 0, Basophils (%) (Auto) 0, Neutrophils # (Auto) 16.5H, Lymphocytes # (Auto) 1.1, Monocytes # (Auto) 1.2H, Eosinophils # (Auto) 0.1, Basophils # (Auto) 0.0, Sodium Level 140, Potassium Level 3.7, Chloride Level 102, Carbon Dioxide Level 26, Anion Gap 12, Blood Urea Nitrogen 26H, Creatinine 0.81, Estimat Glomerular Filtration Rate > 60, BUN/Creatinine Ratio 32, Glucose Level 112H, Calcium Level 8.8, Corrected Calcium 9.5, Total Bilirubin 0.9, Aspartate Amino Transf (AST/SGOT) 35H, Alanine Aminotransferase (ALT/SGPT) 56H, Alkaline Phosphatase 89, Total Protein 5.7L, Albumin 3.1L 10/14/19 06:34: Glucometer 110 Microbiology 10/11/19 MRSA Screen - Final, Complete MRSA not isolated Home Meds Active Iprat-Albut 0.5-3(2.5) mg/3 ml (Ipratropium/Albuterol Sulfate) 3 Ml Ampul.neb 3 Ml INH RTQ4HR Prednisone 10 Mg Tab.ds.pk 10 Mg PO DAILY Take 6 tabs(60mg)daily,decrease by 1 tab(10MG)daily. Reported Ferosul (Ferrous Sulfate) 300 Mg/6.82 Ml Solution 5 Ml PO DAILY Multi-Vitamin Daily (Multivitamin) 1 Each Tablet 2 Each PO DAILY Atorvastatin Calcium 20 Mg Tablet 20 Mg PO HS LAST FILLED 06-06-2019 #90/90DS Furosemide 20 Mg Tablet 20 Mg PO DAILY PRN Celexa (Citalopram Hydrobromide) 20 Mg Tablet 20 Mg PO HS LAST FILLED 06-06-2019 #90/90DS Vitamin D3 (Cholecalciferol (Vitamin D3)) 500 Unit/5 Ml Liquid 5 Ml PO 1200 Carvedilol 6.25 Mg Tablet 6.25 Mg PO BID LAST FILLED 06-06-2019 #180/90DS Cartia Xt (Diltiazem HCl) 120 Mg Cap.er.24h 120 Mg PO DAILY LAST FILLED 06-06-2019 #90/90DS [Instaflex] 1 Tab PO DAILY Flaxseed Oil 1,000 Mg Capsule 1,000 Mg PO DAILY Eliquis (Apixaban) 5 Mg Tablet 5 Mg PO BID LAST FILLED 06-06-2019 #180/90DS Assessment/Pt Instructions take medications as prescribed. Participate in therapies. Discharge Planning: <30 minutes discharge planning Discharge Instructions Discharge Diet: No Restrictions Activity as Tolerated: Yes Pneumonia Vaccine Order Indica: Yes Discharge Physical Examination Vital Signs Vital Signs Date Time Temp Pulse Resp B/P (MAP) Pulse Ox O2 Delivery O2 Flow Rate FiO2 10/14/19 10:00 10/14/19 08:00 93 Room Air 10/14/19 07:37 36.5 91 20 10/13/19 12:00 2.00 10/12/19 10:41 21 General Appearance: No Apparent Distress, WD/WN HEENT: PERRL/EOMI, Pharynx Normal Respiratory: Lungs Clear, Normal Breath Sounds, No Respiratory Distress Cardiovascular: Regular Rate, Rhythm, No Edema, No Murmur Gastrointestinal: Normal Bowel Sounds, Non Tender, Soft Extremity: Normal Inspection, Non Tender, No Pedal Edema Skin: Normal Color, Warm/Dry Neurologic/Psychiatric: Alert, Oriented x3 Allergies: Coded Allergies: Sulfa (Sulfonamide Antibiotics) (Verified Allergy, Unknown, 12/27/17) Discharge Summary Date of Admission Oct 11, 2019 at 02:41 Date of Discharge Oct 14, 2019 at 10:15 Discharge Date: Oct 14, 2019 Discharge Time: 10:15 Admission Diagnosis Severe vertigo Consults/Procedures Consulations Cardiology Discharge Diagnosis Orthostatic hypotension (1) Orthostatic hypotension Status: Resolved (2) COPD with acute exacerbation Status: Resolved (3) Paroxysmal atrial fibrillation Status: Chronic (4) Debility Status: Acute Clinical Quality Measures DVT/VTE Risk/Contraindication: Risk Factor Score Per Nursin RFS Level Per Nursing on Admit: 4+=Very High CATRACHITO RAMOS MD Oct 14, 2019 14:23
== END 2019-10-14 10:15 | DRG 312 ==
LOC: EDUNIT# 21:24 → ER 21:25 → ICU 10-11 02:41 → 4TH 10-11 11:25
PROVIDERS: ADMIT Internal Medicine; ATTEND Internal Medicine
DX: I95.1 Orthostatic hypotension (principal); I50.43 Acute on chronic combined systolic (congestive) and diastolic (congestive) heart failure; I13.0 Hypertensive heart and chronic kidney disease with heart failure and stage 1 through stage 4 chronic kidney disease, or unspecified chronic kidney disease; J44.1 Chronic obstructive pulmonary disease with (acute) exacerbation; I48.20 Chronic atrial fibrillation, unspecified; I48.0 Paroxysmal atrial fibrillation; E86.0 Dehydration; I25.10 Atherosclerotic heart disease of native coronary artery without angina pectoris; I16.0 Hypertensive urgency; E78.00 Pure hypercholesterolemia, unspecified; N18.9 Chronic kidney disease, unspecified; M19.90 Unspecified osteoarthritis, unspecified site; M06.9 Rheumatoid arthritis, unspecified; F41.9 Anxiety disorder, unspecified; F32.9 Major depressive disorder, single episode, unspecified; R73.9 Hyperglycemia, unspecified; T38.0X5A Adverse effect of glucocorticoids and synthetic analogues, initial encounter; Z91.14 Patient's other noncompliance with medication regimen; Z79.01 Long term (current) use of anticoagulants; Z87.891 Personal history of nicotine dependence
CPT/HCPCS: 36415; 70450; 71045; 80048; 80053; 81000; 82550; 82553; 82962; 83735; 83874; 83880; 84145; 84443; 84484; 85007; 85025; 85027; 85610; 85730; 87081; 93005; 93041; 94640; 94760; 96374; 96375

== ENCOUNTER 2019-10-14 10:20 | Inpatient (IN) | payer MEDICARE, OTHER ==
[~2019-10-14] VITALS: Ht 162.5 cm; Wt 76.1 kg
--- NOTE | 2019-10-14 10:18 | Physical Therapy Evaluation ---
PT Evaluation-General Medical Diagnosis Admission Date 10/14/19 Medical Diagnosis: vertigo/HTN/CHF/penumonia Onset Date: Oct 11, 2019 Therapy Diagnosis Therapy Diagnosis: weakness, debility, fall risk Height/Weight Height (Feet): 5 Height (Inches): 4.00 Weight (Pounds): 170 Weight (Ounces): 0 Precautions Precautions/Isolations: Fall Prevention, Standard Precautions Weight Bear Status Right Lower Extremity: Right Full Weight Bearing Left Lower Extremity: Left Full Weight Bearing Referral Physician: Ammon Reason for Referral: Evaluation/Treatment Medical History Pertinent Medical History: Atrial Fib, Arthritis, CAD, COPD, HTN, [place], Rheumatoid Arthritis Current History Pt recently discharged from hospital on 10/10/19. Presented to ER on 10/11/19 with severe vertigo and severe BP. Reviewed History: Yes Social History Home: Single Level Current Living Status: Spouse Entry Into Home: Stairs With Railing PT Steps Into Home: 4 Prior Prior Level of Function SCALE: Activities may be completed with or without assistive devices. 9-Bgghxoverf-ppazbhp completes the activity by him/herself with no assistance from a helper. 5-Set-up or Clean-up Assistance-helper sets up or cleans up; patient completes activity. [place] assists only prior to or following the activity. 4-Supervision or Touching Assistance-helper provides verbal cues and/or touching/steadying and/or contact guard assistance as patient completes activity. Assistance may be provided throughout the activity or intermittently. 3-Partial/Moderate Assistance-helper does LESS THAN HALF the effort. [place] l ifts, holds or supports trunk or limbs, but provides less than half the effort. 2-Substantial/Maximal Assistance-helper does MORE THAN HALF the effort. [place] lifts or holds trunk or limbs and provides more than half the effort. 0-Qsaziukao-nymgdo does ALL the effort. Patient does none of the effort to complete the activity. Or, the assistance of 2 or more helpers is required for t he patient to complete the activity. If activity was not attempted, code reason: 7-Patient Refused. 9-Not Applicable-not attempted and the patient did not perform the activity before the current illness, exacerbation or injury. 10-Not Attempted due to Environmental Limitations-(lack of equipment, weather restraints, etc.). 88-Not Attempted due to Medical Conditions or Safety Concerns. Bed Mobility: 6 Transfers (B,C,W/C): 6 Gait: 6 Stairs: 6 Wheelchair Mobility: 9 Indoor Mobility (Ambulation): Independent Stairs: Independent Prior Devices Use: None Pt's spouse reports that for about 2 months, Pt would beginning leaning forward (unaware) and consequently start a quick, shuffling gait, "She was almost runnin g. She was unaware she was doing it and if I would holler at her, it would stop her". PT Evaluation-Current Subjective Pt in bed, agreeable with encouragement. "I just want to go home. If you would just let me do it, but they won't let me do anything!". Pt also reports, "I'm just ready to take a nap. I got up at 4 this morning and couldn't go back to sleep." Denies pain. Pt/Family Goals Home Objective Patient Orientation: Person, Confused Attachments: SCD's, IV ROM/Strength ROM Upper Extremities See OT ROM Lower Extremities Grossly WFL for functional mobility Strength Upper Extremities See OT Strength Lower Extremities (B) ankles and knees grossly 3+/5, (B) hips grossly 3+/5 Integumentary/Posture Integumentary See nurses' notes Posture flexed Neuromuscular (Tone, Coordination, Reflexes) Decreased coordination, very impulsive Sensory Vision: Functional Hearing: Functional Transfers Roll Left to Right (QC): 4 Sit to Lying (QC): 4 Lying to Sitting/Side of Bed(Q: 4 Sit to Stand (QC): 3 Chair/Tnl-ii-Qqwko Xfer(QC): 3 Toilet Transfer: 3 Car Transfer (QC): 3 Very impulsive, poor attention to (L) side during functional tasks. Frequently running walker into chair legs. Near constant safety cues, attempting to stand with (L) LE remaining in "car". Gait Does the Patient Walk?: Yes Mode of Locomotion: Walk Anticipated Mode of Locomotion: Walk Walk 10 feet (QC): 3 Walk 50 ft with 2 Turns(QC): 3 Walk 150 ft (QC): 3 Walking 10ft/uneven surface-QC: 3 Distance: 150 Gait Assistive Device: FWW Comments/Gait Description Pt very unsafe with gait, poor safety awareness/attention to (L) side. Frequently tangling LE with walker, abandoning walker. Wheelchair Training Does the Pt Use a Wheelchair?: No Wheel 50 ft with 2 turns (QC): 9 Wheel 150 ft (QC): 9 Stairs #of Steps: 4 1 Step (curb) (QC): 3 4 Steps (QC): 3 12 Steps (QC): 88 Up/down curb step and 4 steps with (B) handrail. Flight not attempted due to poor safety awareness, limited compliance with safety cues. When descending step, Pt lead with (R) LE but would drag the (L) foot, requiring assist to advance (L) foot to next step. (Without assist she was attempting to initiate next step with (R) foot) Balance Sitting Static: Good Sitting Dynamic: Fair Standing Static: Fair Standing Dynamic: Fair Picking up an Object (QC): 88 Special Test Comments Poor safety awareness, unsafe to attempt picking up an object this date. Treatment Eval. Gait training with FWW. Pt requires near constant safety cues. Assessment/Needs Pt's problem list includes: decreased sitting and standing, balance, decreased functional strength, poor safety awareness, high fall risk, and increased dependence with functional mobility. Pt may benefit from skilled PT to address outlined dysfunctions and restore PLOF. Rehab Potential: Fair PT Short Term Goals Short Term Goals Time Frame: Oct 21, 2019 Roll Left & Right: 6 Sit to lyin Lying to sitting on side of be: 6 Sit to stand: 6 PT Fpc Goals Fpc Goals PT Public Policy Mediator Goals Time Frame: Nov 04, 2019 Roll Left & Right (QC): 6 Sit to Lying (QC): 6 Lying-Sitting on Side/Bed(QC): 6 Sit to Stand (QC): 6 Chair/Nls-fq-Ihkfx Xfer(QC): 6 Toilet Transfer (QC): 6 Car Transfer (QC): 4 Does the Patient Walk: Yes Walk 10 feet (QC): 6 Walk 50ft with 2 Turns (QC): 6 Walk 150 ft (QC): 6 Walking 10ft on Uneven Surface: 6 1 Step (curb) (QC): 4 4 Steps (QC): 4 12 Steps (QC): 9 Picking up an Object (QC): 4 Does the Pt use WC or Scooter?: No Wheel 50 feet with 2 turns (QC: 9 Wheel 150 feet: 9 PT LTGs established to allow return home with spouse with decreased caregiver burden. PT Plan Problem List Problem List: Activity Tolerance, Functional Strength, Safety, Balance, Gait, Transfer, Bed Mobility Treatment/Plan Treatment Plan: Continue Plan of Care Treatment Plan: Bed Mobility, Education, Functional Activity Rex, Functional Strength, Group Therapy, Gait, Safety, Therapeutic Exercise, Transfers Treatment Duration: Nov 04, 2019 Frequency: Modified Program (IRF) Estimated Hrs Per Day: 1.5 hours per day Patient and/or Family Agrees t: Yes Safety Risks/Education Patient Education: Gait Training, Safety Issues Teaching Recipient: Patient, Family Teaching Methods: Demonstration, Discussion Response to Teaching: Verbalize Understanding, Unable to Return Demonstration, Reinforcement Needed Discharge Recommendations Barriers to Progress recall, safety awareness Time/GCodes Time In: 1030 Time Out: 1110 Total Billed Treatment Time: 40 Total Billed Treatment 1, MONALISAC x 30', GT x 10' AMINTA MARTINES DPT Oct 14, 2019 10:18
[~2019-10-14 10:20] MED LIST changes: +BISACODYL 10 MG SUPP (DULCOLAX) PR PRN; +CALCIUM CARBONATE 500 MG (TUMS) TAB.CHEW PO PRN; +DOCUSATE SODIUM 100 MG (COLACE) CAP PO PRN; +FLEET ENEMA ADULT 1 EA BTL PR PRN; +LACTULOSE SYRUP 10GM/15ML (ENULOSE) 30ML UDC PO PRN; +LOPERAMIDE 2 MG (IMODIUM) TABLET PO PRN; +ONDANSETRON 4 MG (ZOFRAN) ORAL DISSOLVE TAB PO PRN; +ONDANSETRON 4 MG/2 ML (SDV) Z0FRAN IV PRN; +diphenhydrAMINE 25 MG TAB (BENADRYL) PO PRN; +guaiFENesin/CODEINE (ROBITUSSIN AC) 10ML UDC PO PRN
--- NOTE | 2019-10-14 10:20 | NUR ---
KELLEY GARCIA admitted to room 233-1, with an admitting diagnosis of PNEUMONIA,WEAKNESS, CHF, VERTIGO on 10/14/19 from [facility],she was accompanied by her TONY, and [facility] STAFF.KELLEY GARCIA introduced to surroundings, call light, bed controls, phone, TV, temperature control, lights, meal times, smoking policy, visitor policy, side rail policy, bathrooms and showers. Patient Rights given to patient in the handbook.KELLEY GARCIA verbalizes understanding that [facility] is not responsible for the loss or damage to any personal effects or valuables that are kept in the patients posession during their hospitalization. The following Patient Care Plans were discussed with the AND PT: Discharge Planning, RISK FOR FALL,MOBILITY IMPAIRMENT. KELLEY GARCIA verbalizes understanding of Interdisciplinary Patient Education. Patient received Patient Rights Booklet, which includes Privacy Act Statement and Data Collection Information Summary.
[2019-10-14 10:37] VITALS: BP 141/99
--- NOTE | 2019-10-14 12:03 | Occupational Therapy Eval ---
OT Evaluation-General/PLF Medical Diagnosis Admission Date Oct 14, 2019 at 10:20 Medical Diagnosis: vertigo/HTN/CHF/penum[place] Onset Date: Oct 11, 2019 Therapy Diagnosis Therapy Diagnosis: Decreased ADL function Height/Weight Height (Feet): 5 Height (Inches): 4.00 Weight (Pounds): 170 Weight (Ounces): 0 Precautions Precautions/Isolations: Fall Prevention, Standard Precautions Weight Bear Status Weight Bearing Restriction: Full Weight Bearing Referral Physician: Ammon Referral Reason: Activity Tolerance, Self Care, Evaluation/Treatment, Strength ening/ROM Medical History Pertinent Medical History: Atrial Fib, Arthritis, CAD, COPD, HTN, [place], Rheumatoid Arthritis Additional Medical History see above Current History Pt recently discharged from hospital on 10/10/19. Presented to ER on 10/11/19 with severe vertigo and severe BP. Reviewed History: Yes Social History Home: Single Level Current Living Status: Spouse Entry Into Home: Stairs With Railing Steps Into Home: 4 ADL-Prior Level of Function SCALE: Activities may be completed with or without assistive devices. 7-Qdjsfueshc-drxesoj completes the activity by him/herself with no assistance from a helper. 5-Set-up or Clean-up Assistance-helper sets up or cleans up; patient completes activity. [place] assists only prior to or following the activity. 4-Supervision or Touching Assistance-helper provides verbal cues and/or touching/steadying and/or contact guard assistance as patient completes activity . Assistance may be provided throughout the activity or intermittently. 3-Partial/Moderate Assistance-helper does LESS THAN HALF the effort. [place] lifts, holds or supports trunk or limbs, but provides less than half the effort. 2-Substantial/Maximal Assistance-helper does MORE THAN HALF the effort. [place] lifts or holds trunk or limbs and provides more than half the effort. 9-Orwctpqha-ehctrw does ALL the effort. Patient does none of the effort to complete the activity. Or, the assistance of 2 or more helpers is required for the patient to complete the activity. If activity was not attempted, code reason: 7-Patient Refused. 9-Not Applicable-not attempted and the patient did not perform the activity before the current illness, exacerbation or injury. 10-Not Attempted due to Environmental Limitations-(lack of equipment, weather restraints, etc.). 88-Not Attempted due to Medical Conditions or Safety Concerns. ADL PLOF Comments Pt states IND within ADLs without AE, soaks in tub/shower without grab bars. Self Care: Independent Functional Cognition: Independent DME/Equipment: Tub/Shower Occupation: retired OT Current Status Subjective Pt seen in bed, reclined. Pt agreeable to OT eval session, present. Pt denies pain, states fatigue. Mental Status/Objective Patient Orientation: Person, Place, Time, Situation, Normal For Age Current Glasses/Contacts: Yes Hearing Aids: No Dentures/Partials: Yes Hand Dominance: Right Upper Extremity ROM WFL BUE Upper Extremity Coordination WFL BUE Upper Extremity Sensation WFL Upper Extremity Strength decreased bilaterally ADL-Treatment Eating (QC): 6 Oral Hygiene (QC): 7 Shower/Bathe Self (QC): 7 Upper Body Dressing (QC): 5 Lower Body Dressing (QC): 7 On/Off Footwear (QC): 3 Toileting Hygiene (QC): 7 ADLs per pt. Pt denies OOB activity, states based on recent abilities Other Treatments Pt seen in bed, pt states fatigue and no pain. Pt and educated on ARU standards and OT role. Pt agreeable to eval only, stating very fatigued. Cues to keep eyes open/ participate. Pt states PLOF and pneumonia~3x this year. Pt educated and return demonstrates diaphragmatic breathing tasks and benefits of sitting up throughout the day. Pt and left in room, pt in bed with call light in reach, all needs met. Education OT Patient Education: Correct positioning, Exercise program, Home exercise program, Modified ADL techniques, Rehab process Teaching Recipient: Patient, Significant Other Teaching Methods: Demonstration, Discussion Response to Teaching: Verbalize Understanding, Return Demonstration OT Fdc Goals Fdc Goals Time Frame: Oct 28, 2019 Eating (QC): 6 Oral Hygiene (QC): 6 Toileting Hygiene (QC): 6 Shower/Bathe Self (QC): 6 Upper Body Dressing (QC): 6 Lower Body Dressing (QC): 6 On/Off Footwear (QC): 6 Additional Goals: 1-Demonstrate ADL Tasks, 2-Verbalize Understanding, 3- ImproveStrength/Rex 1=Demonstrate adherence to instructed precautions during ADL tasks. 2=Patient will verbalize/demonstrate understanding of assistive devices/modifications for ADL. 3=Patient will improve strength/tolerance for activity to enable patient to perform ADL's. OT Education/Plan Problem List/Assessment Assessment: Decreased Activ Tolerance, Decreased UE Strength, Dependent Transfers, Impaired Bed Mobility, Impaired Funct Balance, Impaired I ADL's, Impaired Self-Care Skills Discharge Recommendations Plan/Recommendations: Continue POC Equpiment Recommendations-D/C: Rails on Tub/Shower Treatment Plan/Plan of Care Treatment,Training & Education: Yes Patient would benefit from OT for education, treatment and training to promote independence in ADL's, mobility, safety and/or upper extremity function for ADL's. Plan of Care: ADL Retraining, Caregiver Training, Concurrent Therapy, Functional Mobility, Group Exercise/Act as Ind, UE Funct Exercise/Act Treatment Duration: Oct 28, 2019 Frequency: At least 5 of 7 days/Wk (IRF) Estimated Hrs Per Day: 1.5 hours per day Agreement: Yes Rehab Potential: Fair Time/GCodes Start Time: 11:10 Stop Time: 11:20 Total Time Billed (hr/min): 10 Billed Treatment Time KAYLA Garza (10) PEÑA NICHOLS OTR Oct 14, 2019 12:03
[2019-10-14] MEDS ORDERED: NITROGLYCERIN 2% OINT 1 GM UNIT DOSE PACKET TOP PRN (12:30)
[2019-10-14] MEDS ORDERED: MECLIZINE 25 MG (ANTIVERT) TAB PO PRN (12:30)
--- NOTE | 2019-10-14 12:52 | PM&R Post Admission Assessment ---
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 She has a long-standing history of medical treatment noncompliance when she is feeling well and then stops all of her medications in addition is in significant denial about the severity of her medical problems. She is become angry and frustrated with herself and I tried to reassure her and give her enough support to be able to be successful at home and prevent the multiple readmission she's had of recent past. Renal function has improved white count is 18,000 today without fever or any other issues and she had been transitioned to steroids that likely is a steroid effect will check labs in the morning. She constantly tells me she wants to go home and I tell her that she must be patient with herself to take one day at a time in order to regain enough function and work on cognitive skills in order to return home. Past Qwbqwew-Ofwjjl-Gcitxi Hx Past Med/Social Hx: Reviewed Nursing Past Med/Soc Hx, Reviewed and Corrections made Patient Social History Marrital Status: Employed/Student: retired Alcohol Use: Denies Use Recreational Drug Use: No Smoking Status: Former Smoker Former Smoker, Quit: Aug 27, 2004 Type Used: Cigarettes 2nd Hand Smoke Exposure: No Physical Abuse Screen: No Sexual Abuse: No Recent Foreign Travel: No Contact w/other who traveled: No Recent Hopitalizations: No Recent Infectious Disease Expo: No Immunizations Up To Date Date of Pneumonia Vaccine: Sep 17, 2015 Date of Influenza Vaccine: Jul 19, 2019 Seasonal Allergies Seasonal Allergies: No Past Medical History Surgeries: Cardiac, Coronary Stent, Gallbladder, Tubal Ligation Respiratory: Chronic Bronchitis, COPD, Emphysema, Pneumonia Currently Using CPAP: No Currently Using BIPAP: No Cardiac: Atrial Fibrillation, Coronary Artery Disease, Heart Attack, High Cholesterol, Hypertension 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: Vertigo Sexually Transmitted Disease: No HIV/AIDS: No Menopausal Genitourinary: Bladder Infection, Renal Failure Gastrointestinal: Gastroesophageal Reflux Musculoskeletal: Arthritis, Rheumatoid Arthritis Loss of Vision: Denies Psychosocial: Anxiety, Depression History of Blood Disorders: No Adverse Reaction to Blood Sousa: No Family History Cardiovascular disease 19 MOTHER Diabetes mellitus 19 MOTHER Hypertension 19 MOTHER No Pertinent Family Hx LONG HISTORY OF NON-COMPLIANCE Prior Level of Function Bed Mobility: 6 Transfers: 6 Gait: 6 Stairs: 6 Wheelchair Mobility: 9 Indoor Mobility (Ambulation): Independent Stairs: Independent Prior Devices Use: None Self Care: Independent Functional Cognition: Independent Occupation: retired Current Level of Fuctioning Roll Left to Right: 4 Sit to Lyin Lying to Sitting/Side of Bed: 4 Sit to Stand: 3 Chair/Bta-dd-Qlffa Xfer: 3 Car Transfer: 3 Does the Patient Walk: Yes Mode of Locomotion: Walk Anticipated Mode of Locomotion: Walk Walk 10 feet: 3 Walk 50 ft with 2 Turns: 3 Walk 150 ft: 3 Walking 10ft on uneven surface: 3 Gait Assistive Device: FWW Does the Pt Use a Wheelchair: No Wheel 50 ft with 2 turns: 9 Wheel 150 ft: 9 #of Steps: 4 1 Step (curb): 3 4 Steps: 3 12 Steps: 88 Picking up an Object: 88 Eatin Oral Hygiene: 7 Shower/Bathe Self: 7 Upper Body Dressin Lower Body Dressin On/Off Footwear: 3 Toileting Hygiene: 7 PM&R Allergy/Meds/Data Review Allergies Coded Allergies: Sulfa (Sulfonamide Antibiotics) (Verified Allergy, Unknown, 12/27/17) Home Medications Scheduled Apixaban (Eliquis), 5 MG PO BID, (Reported) Atorvastatin Calcium (Atorvastatin Calcium), 20 MG PO HS, (Reported) Carvedilol (Carvedilol), 6.25 MG PO BID, (Reported) Cholecalciferol (Vitamin D3) (Vitamin D3), 5 ML PO 1200, (Reported) Citalopram Hydrobromide (Celexa), 20 MG PO HS, (Reported) Diltiazem HCl (Cartia Xt), 120 MG PO DAILY, (Reported) Ferrous Sulfate (Ferosul), 5 ML PO DAILY, (Reported) Flaxseed Oil (Flaxseed Oil), 1,000 MG PO DAILY, (Reported) Ipratropium/Albuterol Sulfate (Iprat-Albut 0.5-3(2.5) mg/3 ml), 3 ML INH RTQ4HR Multivitamin (Multi-Vitamin Daily), 2 EACH PO DAILY, (Reported) Prednisone (Prednisone), 10 MG PO DAILY [Instaflex], 1 TAB PO DAILY, (Reported) Scheduled PRN Furosemide (Furosemide), 20 MG PO DAILY PRN for SWELLING, (Reported) Discontinued Medications Acetaminophen (Arthritis Pain Relief), 1,300 MG PO HS, (Reported) Discontinued Reason: No Longer Taking Budesonide/Formoterol Fumarate (Symbicort 160-4.5 Mcg Inhaler), 2 PUFF IH BID PRN for SHORTNESS OF BREATH, (Reported) Discontinued Reason: No Longer Taking Cefdinir (Cefdinir), 300 MG PO BID, (Reported) Discontinued Reason: No Longer Taking Cefdinir (Cefdinir), 300 MG PO BID Citalopram Hydrobromide (Citalopram HBr), 20 MG PO HS, (Reported) Discontinued Reason: No Longer Taking Pnv No.122/Iron/Folic Acid ( Multi Tablet), 1 TAB PO DAILY, (Reported) Discontinued Reason: No Longer Taking Current Medications Current Medications Reviewed Laboratory Data Laboratory Tests 10/14/19 05:32: Review of Systems Constitutional: see HPI, dizziness, malaise, weakness EENTM: no symptoms reported Respiratory: dyspnea on exertion Cardiovascular: no symptoms reported Gastrointestinal: no symptoms reported Genitourinary: no symptoms reported Musculoskeletal: back pain, joint pain Skin: see HPI Psychiatric/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: Anxiety, Emotional Problems All Other Systems Reviewed Negative Unless Noted: Yes Physical Exam Physical Exam Vital Signs Vital Signs - First Documented 10/14/19 10/14/19 10:20 10:37 Temp 36.6 Pulse 94 Resp 20 B/P (MAP) 141/99 Pulse Ox 92 O2 Delivery Room Air Capillary Refill : Less Than 3 Seconds Height, Weight, BMI Height: 5'4.00" Weight: 170lbs. 0oz. [id number]; 29.99 BMI Method:Stated General Appearance: No Apparent Distress, WD/WN, Chronically ill Eyes: Bilateral Eye Normal Inspection, Bilateral Eye PERRL HEENT: PERRL/EOMI, Normal ENT Inspection, Pharynx Normal Neck: Full Range of Motion, Normal Inspection, Non Tender, Supple, Carotid Bruit Respiratory: Chest Non Tender, Lungs Clear, No Accessory Muscle Use, No Respiratory Distress, Decreased Breath Sounds Cardiovascular: Regular Rate, Rhythm, No Edema, No Gallop, No JVD, No Murmur, Normal Peripheral Pulses Gastrointestinal: Normal Bowel Sounds, No Organomegaly, No Pulsatile Mass, Non Tender, Soft Back: Normal Inspection, No CVA Tenderness, No Vertebral Tenderness Extremity: Normal Capillary Refill, Normal Inspection, Normal Range of Motion, Non Tender, No Calf Tenderness, No Pedal Edema Neurologic/Psychiatric: Alert, Oriented x3, No Motor/Sensory Deficits, 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 Norm as Tested, Depressed Affect, Disoriented (subtle poor recall) Skin: Normal Color, Warm/Dry Lymphatic: No Adenopathy PM&R Medical Assessment & Plan REHAB/MEDICAL ASSESSMENT AND PLAN: REHAB IMPAIRMENT GROUP: 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 ETIOLOGIC DIAGNOSIS: 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 The comorbidities that impact the patients function and/or functional outcome by: Medical treatment noncompliance, denial about severity of medical issues, severe COPD, oxygen dependency, paroxysmal atrial fibrillation, CAD REHAB PLAN: The patient is being admitted to our comprehensive inpatient rehabilitation facility and can tolerate the intensity of service consisting of at least: 180 minutes of therapy a day, 5 out of 7 days a week Rehab treatment will consist of: PT and OT will help focus on regaining strength and decreased the readmission risk The patient/family has a good understanding of our discharge process and will benefit from an interdisciplinary inpatient rehabilitation program. The patient has potential to make improvement and is in need of at least two of the following multidisciplinary therapies including but not limited to physical, occupational, speech, and prosthetics and orthotics. Additionally the patient will need services from respiratory, nutritional services, wound care, psychology, etc. (Customize this to each patient). Given the patients complex condition and risk of further medical complications, rehabilitation services cannot be safely or effectively provided at a lower level of care such as a half-way facility. BARRIERS TO DISCHARGE: Patient in denial about medical problems and historically noncompliant with treatment plan ESTIMATED LOS: 7 days DISPOSITION: Home with RELEVANT CHANGES SINCE PREADMISSION SCREENING: I have compared the patients medical and functional status at the time of the preadmission screening and there are: no changes PROGNOSIS: Good REHABILITATION GOALS: 1. PT and OT and speech will help focus on regaining strength in order to regain independence to go home All the above goals were reviewed with the patient and he/she is in agreement. By signing this document, I acknowledge that I have personally performed a full physical examination on this patient within 24 hours of admission to this inpatient rehabilitation facility and have determined the patient to be able to tolerate the above course of treatment at an intensive level for a reasonable period of time. I will be completing a detailed individualized Plan of Care for this patient by day #4 of the patients stay based upon the Preadmission Screen, the Post-Admission Evaluation, and the therapy evaluations. Admission Dx/Comorbidities: (1) Myopathy ICD Codes: G72.9 - Myopathy, unspecified (2) Memory loss ICD Codes: R41.3 - Other amnesia (3) Denial about severity of illness (4) COPD with acute exacerbation Status: Acute ICD Codes: J44.1 - Chronic obstructive pulmonary disease with (acute) exacerbation (5) Paroxysmal atrial fibrillation Status: Chronic ICD Codes: I48.0 - Paroxysmal atrial fibrillation (6) Orthostatic hypotension Status: Acute ICD Codes: I95.1 - Orthostatic hypotension (7) Atrial fibrillation with rapid ventricular response Status: Acute ICD Codes: I48.91 - UNSPECIFIED ATRIAL FIBRILLATION (8) Noncompliance with medication regimen Status: Chronic (9) Hypoxia Status: Chronic (10) Uncontrolled hypertension Status: Acute (11) Hyperglycemia Status: Acute ICD Codes: R73.9 - Hyperglycemia, unspecified Assessment/Plan Assessment and Plan Assess & Plan/Chief Complaint Assessment: Myopathy CHF COPD Oxygen dependency New confusion Medical noncompliance Denial of severity of medical problems Former smoker Rheumatoid arthritis Chronic renal insufficiency Hyperglycemia awaiting hemoglobin A1c result Hypertension [id number] Orthostasis with vertigo Plan: Inpatient rehabilitation protocol Strengthening Home meds Monitor closely Work on cognition JEROME NEAL DO Oct 14, 2019 12:52
--- NOTE | 2019-10-14 13:02 | NUR ---
DR NEAL HERE TO SEE PT AT THIS TIME
[2019-10-14] MEDS: POLYETHYLENE GLYCOL 17 GM (MIRALAX) PACK PO SCH ×3 (13:55→20:09)
[2019-10-14] MEDS: DOCUSATE SODIUM 100 MG (COLACE) CAP PO SCH ×3 (13:55→20:06)
[2019-10-14] MEDS: SENNA W/DOCUSATE (SENOKOT S) TABLET PO SCH ×3 (13:56→20:09)
[2019-10-14] MEDS: RT-ALBUTEROL/IPRATROPIUM 3 ML (DUONEB) VIAL INH PRN (14:57)
[2019-10-14] MEDS: inSUlin ASPART (NovoLOG) 1 UNIT/0.01 ML (CHARGE PER UNIT) SC SCH ×2 (17:15→20:10)
[2019-10-14 18:34] VITALS: BP 168/96
[2019-10-14] MEDS: MELATONIN 3 MG TABLET PO PRN (18:51)
[2019-10-14] MEDS: ALPRAZolam 0.25 MG (XANAX) TAB PO PRN (18:51)
--- NOTE | 2019-10-14 19:23 | NUR ---
bedside report received from CAITLIN BARON, assume care of pt
[2019-10-14 20:01] VITALS: BP 160/78
[2019-10-14] MEDS: APIXABAN 5 MG (ELIQUIS) TABLET PO SCH (20:05)
[2019-10-14] MEDS: CARVEDILOL 12.5 MG (COREG) TABLET PO SCH (20:06)
--- NOTE | 2019-10-14 20:06 | NUR ---
pt refused miralax & Senokot did take Colace, fsbs 113 no ss insulin req pt confused to situation knows place & date, does not follow instructions well, side rails up x4, bed alarm on, tele sitter in place, up to coomode several times with 2 people assist & walker
[2019-10-14] MEDS: RT-ALBUTEROL/IPRATROPIUM 3 ML (DUONEB) VIAL INH SCH (21:18)
[2019-10-15] MEDS: inSUlin ASPART (NovoLOG) 1 UNIT/0.01 ML (CHARGE PER UNIT) SC SCH ×4 (06:00→21:25)
[2019-10-15 06:24] VITALS: BP 136/82
[2019-10-15 06:30] LABS: BASOPHILS % (AUTO) 0 % (0-10); EOSINOPHILS # (AUTO) 0.1 10^3/uL (0.0-0.3); EOSINOPHILS % (AUTO) 0 % (0-10); HEMATOCRIT 42 % (35-52); HEMOGLOBIN 13.2 G/DL (11.5-16.0); LYMPHOCYTES # (AUTO) 1.7 X 10^3 (1.0-4.0); LYMPHOCYTES % (AUTO) 8 % (12-44); MEAN CORPUSCULAR HEMOGLOBIN 28 PG (25-34); MEAN CORPUSCULAR HGB CONC 31 G/DL (32-36); MEAN CORPUSCULAR VOLUME 90 FL (80-99); MEAN PLATELET VOLUME 10.5 FL (7.4-10.4); MONOCYTES # (AUTO) 1.4 X 10^3 (0.0-1.0); MONOCYTES % (AUTO) 7 % (0-12); NEUTROPHILS # (AUTO) 17.9 X 10^3 (1.8-7.8); NEUTROPHILS % (AUTO) 85 % (42-75); PLATELET COUNT 348 10^3/uL (130-400); RED CELL DISTRIBUTION WIDTH 15.7 % (10.0-14.5); WHITE BLOOD COUNT 21.1 10^3/uL (4.3-11.0)
[2019-10-15 06:44] LABS: ALBUMIN 3.4 GM/DL (3.2-4.5); BILIRUBIN,TOTAL 1.4 MG/DL (0.1-1.0); CREATININE SERUM 0.96 MG/DL (0.60-1.30); POTASSIUM 3.9 MMOL/L (3.6-5.0); TOTAL PROTEIN 5.8 GM/DL (6.4-8.2)
[2019-10-15] MEDS ORDERED: predniSONE 20 MG TAB PO SCH (07:00)
[2019-10-15] MEDS: RT-ALBUTEROL/IPRATROPIUM 3 ML (DUONEB) VIAL INH SCH ×4 (07:03→22:32)
[2019-10-15] MEDS: RT-ALBUTEROL/IPRATROPIUM 3 ML (DUONEB) VIAL INH PRN (08:08)
[2019-10-15] MEDS: POLYETHYLENE GLYCOL 17 GM (MIRALAX) PACK PO SCH ×2 (08:34→21:18)
[2019-10-15] MEDS: DOCUSATE SODIUM 100 MG (COLACE) CAP PO SCH ×2 (08:35→21:18)
[2019-10-15] MEDS: DILTIAZEM 240 MG (CARDIZEM CD) CAP PO SCH (08:35)
[2019-10-15] MEDS: CARVEDILOL 12.5 MG (COREG) TABLET PO SCH ×2 (08:35→21:19)
[2019-10-15] MEDS: APIXABAN 5 MG (ELIQUIS) TABLET PO SCH ×2 (08:35→21:19)
[2019-10-15] MEDS: SENNA W/DOCUSATE (SENOKOT S) TABLET PO SCH ×2 (08:35→21:19)
[2019-10-15 12:19] LABS: ABG BASE EXCESS 5.2 MMOL/L (-2.5-2.5); ABG OXYGEN SATURATION 97 % (94-100); ABG PCO2 44 MMHG (35-45); ABG PH 7.44 (7.37-7.43); ABG PO2 84 MMHG (79-93); ABG TCO2 30.7 MMOL/L (21.0-31.0)
[2019-10-15 12:21] LABS: ALLENS TEST YES-POS; INSPIRED O2 4 L; PATIENT TEMP 36.6; VENTILATOR NO
--- NOTE | 2019-10-15 12:31 | Diagnostic Imaging Report ---
INDICATION: Increasing shortness of breath. TIME OF EXAM: 12:19 p.m. COMPARISON: Correlation is made with prior study from 10/12/2019. FINDINGS: The heart is enlarged. Worsening changes of congestive failure are noted. There are bilateral perihilar infiltrates. There is no effusion or pneumothorax. IMPRESSION: Worsening findings of congestive failure when compared with exam three days earlier. Dictated by: Dictated on workstation # [id number]
[2019-10-15] MEDS ORDERED: FUROSEMIDE 40 MG/4 ML INJ (LASIX) IVP ONE ×2 (13:00→17:45)
[2019-10-15] MEDS ORDERED: risperiDONE 0.25 MG (RisperDAL) TAB PO ONE (13:00)
--- NOTE | 2019-10-15 14:39 | Cardiology Progress Note ---
Cardiology SOAP Progress Note Subjective: No cardiac complaints. Objective: I&O/Vital Signs 10/15/19 10/15/19 06:24 10:45 Temp 36.4 Pulse 101 Resp 20 B/P (MAP) 136/82 (100) Pulse Ox 90 98 O2 Delivery Room Air Nasal Cannula O2 Flow Rate 4.00 10/15/19 00:00 Intake Total 640 ml Balance 640 ml Weight (Pounds): 170 Weight (Ounces): 0 Weight (Calculated Kilograms): [id number] Constitutional: AAO x 3 Respiratory: chest is bilaterally symmetric, lungs clear to auscultation Cardiovascular: irregularly irregular, S1 and S2 Gastrointestional: soft, audible bowel sounds Extremities: normal range of motion, non-tender, normal inspection, no lower extremity edema bilateral Neurologic/Psychiatric: alert, normal mood/affect, grossly intact Skin: normal color, warm/dry Results/Procedures: Labs Laboratory Tests 10/14/19 15:25: Glucometer 211H 10/14/19 19:57: Glucometer 113H 10/15/19 05:55: White Blood Count 21.1H, Red Blood Count 4.68, Hemoglobin 13.2, Hematocrit 42, Mean Corpuscular Volume 90, Mean Corpuscular Hemoglobin 28, Mean Corpuscular Hemoglobin Concent 31L, Red Cell Distribution Width 15.7H, Platelet Count 348, Mean Platelet Volume 10.5H, Neutrophils (%) (Auto) 85H, Lymphocytes (%) (Auto) 8L, Monocytes (%) (Auto) 7, Eosinophils (%) (Auto) 0, Basophils (%) (Auto) 0, Neutrophils # (Auto) 17.9H, Lymphocytes # (Auto) 1.7, Monocytes # (Auto) 1.4H, Eosinophils # (Auto) 0.1, Basophils # (Auto) 0.0, Sodium Level 140, Potassium Level 3.9, Chloride Level 102, Carbon Dioxide Level 25, Anion Gap 13, Blood Urea Nitrogen 33H, Creatinine 0.96, Estimat Glomerular Filtration Rate 57, BUN/Creatinine Ratio 34, Glucose Level 106H, Calcium Level 9.0, Corrected Calcium 9.5, Total Bilirubin 1.4H, Aspartate Amino Transf (AST/SGOT) 47H, Alanine Aminotransferase (ALT/SGPT) 86H, Alkaline Phosphatase 102, Total Protein 5.8L, Albumin 3.4 10/15/19 06:34: Glucometer 99 10/15/19 10:52: Glucometer 127H 10/15/19 12:12: Blood Gas Puncture Site RT RAD, Blood Gas Patient Temperature 36.6, Arterial Blood pH 7.44H, Arterial Blood Partial Pressure CO2 44, Arterial Blood Partial Pressure O2 84, Arterial Blood HCO3 29H, Arterial Blood Total CO2 30.7, Arterial Blood Oxygen Saturation 97, Arterial Blood Base Excess 5.2H, Garry Test YES-POS, Blood Gas Ventilator Setting NO, Blood Gas Inspired Oxygen 4 L 10/15/19 12:30: Lactic Acid Level 1.20, B-Type Natriuretic Peptide 468.7H, Procalcitonin 0.04 A/P: Assessment/Dx: Intractable dizziness, COPD, Mild acute on chronic systolic/diastolic heart failure, Atrial fibrillation with controlled ventricular rate CAD, History of smoking Plan: Plan: Dizziness. Telemetry. Defer to the primary team. Leukocytosis. Sepsis needs to be ruled out. Defer to the primary team. COPD, defer treatment to Dr. Verde. Mild acute on chronic systolic/diastolic heart failure. BNP over 400 on admission. Previously on discharge BNP was 149. Will likely require Lasix. Atrial fibrillation with controlled ventricular rate, continue Cardizem and oral anticoagulation. CAD, history of PCI and stents. No chest pain. Troponins over the last 4 days 2 have been negative. History of smoking Thank you for your consultation. Please call me if you have any questions. Edwina Bermudez MD, FACP, FACC, FSCAI, FHRS, CCDS Interventional Cardiology Cardiac Electrophysiology Vascular Medicine and Endovascular Interventions Focused Exam Lactate Level 10/15/19 12:30: Lactic Acid Level 1.20 Lactic Acid Level Laboratory Tests Test 10/15/19 12:30 Lactic Acid Level 1.20 MMOL/L (0.50-2.00) Faby BERMUDEZ MD Oct 15, 2019 14:39
--- NOTE | 2019-10-15 14:46 | PM&R Progress Note ---
Subjective HPI/CC On Admission Date Seen by Provider: Oct 15, 2019 Time Seen by Provider: 11:45 Subjective/Events-last exam Patient had a desaturation episode this morning alondra required Neb treatment and O2 supplement since she was on room air patient becoming more and more confused and most certainly cannot make decisions for herself. Spoke to Michael her outside of the room when CXR was obtained CXR revealed pulmonary edema so I gave 1 dose of Lasix 20mg to help since Cardiology did mention in their note that the diuresis would be required BNP 450 Procalcitonin normal indicating no evidence of sepsis even though the elevated wbx at 21k and lactic acid normal so that is from steroid effect ABG reviewed Hallucinating so will start Risperdal low dose 0.25mg PO BID Obsessed about going home over and over and over talking to me about that Checked meds and labs Reviewed therapy notes Conferred with RN extensively Review of Systems General: Fatigue Pulmonary: Dyspnea 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: Weakness, Confusion Focused Exam Lactate Level 10/15/19 12:30: Lactic Acid Level 1.20 Lactic Acid Level Objective Exam Vital Signs Vital Signs Date Time Temp Pulse Resp B/P (MAP) Pulse Ox O2 Delivery O2 Flow Rate FiO2 10/15/19 15:52 88 Room Air 10/15/19 10:45 4.00 10/15/19 06:24 36.4 101 20 136/82 (100) Capillary Refill : Less Than 3 SecondsLess Than 3 Seconds General Appearance: WD/WN, Anxious, Chronically ill, Mild Distress, Other (more declined and richmond colored) HEENT: PERRL/EOMI, Normal ENT Inspection, Pharynx Normal Neck: Full Range of Motion, Normal Inspection, Non Tender, Supple, Carotid Bruit Respiratory: Chest Non Tender, Lungs Clear, No Accessory Muscle Use, No Respiratory Distress, Decreased Breath Sounds Cardiovascular: Regular Rate, Rhythm, No Edema, No Gallop, No JVD, No Murmur, Normal Peripheral Pulses Gastrointestinal: Normal Bowel Sounds, No Organomegaly, No Pulsatile Mass, Non Tender, Soft Back: Normal Inspection, No CVA Tenderness, No Vertebral Tenderness Extremity: Normal Capillary Refill, Normal Inspection, Normal Range of Motion, Non Tender, No Calf Tenderness, No Pedal Edema Neurologic/Psychiatric: Alert, No Motor/Sensory Deficits, biometrics technician II-XII Norm as Te sted, Depressed Affect, Disoriented (subtle poor recall) Skin: Normal Color, Warm/Dry Lymphatic: No Adenopathy Results/Procedures Lab Laboratory Tests 10/15/19 05:55 Patient resulted labs reviewed. FIM Transfers Therapy Code Descriptions/Definitions Functional [place] Measure: 0=Not Assessed/NA 4=Minimal Assistance 1=Total Assistance 5=Supervision or Setup 2=Maximal Assistance 6=Modified [place] 3=Moderate Assistance 7=Complete IndependenceSCALE: Activities may be completed with or without assistive devices. 4-Xtwelxbdne-rvnqcqz completes the activity by him/herself with no assistance from a helper. 5-Set-up or Clean-up Assistance-helper sets up or cleans up; patient completes activity. [place] assists only prior to or following the activity. 4-Supervision or Touching Assistance-helper provides verbal cues and/or touching/steadying and/or contact guard assistance as patient completes activity. Assistance may be provided throughout the activity or intermittently. 3-Partial/Moderate Assistance-helper does LESS THAN HALF the effort. [place] lifts, holds or supports trunk or limbs, but provides less than half the effort. 2-Substantial/Maximal Assistance-helper does MORE THAN HALF the effort. [place] lifts or holds trunk or limbs and provides more than half the effort. 0-Uuhsbqyne-tdbiaq does ALL the effort. Patient does none of the effort to complete the activity. Or, the assistance of 2 or more helpers is required for the patient to complete the activity. If activity was not attempted, code reason: 7-Patient Refused. 9-Not Applicable-not attempted and the patient did not perform the activity before the current illness, exacerbation or injury. 10-Not Attempted due to Environmental Limitations-(lack of equipment, weather restraints, etc.). 88-Not Attempted due to Medical Conditions or Safety Concerns. Roll Left to Right (QC): 4 Sit to Lying (QC): 4 Sit to Stand (QC): 3 Chair/Kjx-vk-Yskpr Xfer(QC): 3 Car Transfer (QC): 3 Gait Training Does the Patient Walk?: Yes Walk 10 feet (QC): 3 Walk 50 ft with 2 Turns(QC): 3 Walk 150 ft (QC): 3 Walking 10ft/uneven surface-QC: 3 Gait Assistive Device: FWW Wheelchair Training Does the Pt Use a Wheelchair?: No Wheel 50 ft with 2 turns (QC): 9 Wheel 150 ft (QC): 9 Stair Training #of Steps: 4 1 Step (curb) (QC): 3 4 Steps (QC): 3 12 Steps (QC): 88 Balance Picking up an Object (QC): 88 ADL-Treatment Eating (QC): 6 Oral Hygiene (QC): 7 Shower/Bathe Self (QC): 7 Upper Body Dressing (QC): 5 Lower Body Dressing (QC): 7 On/Off Footwear (QC): 3 Toileting Hygiene (QC): 7 Assessment/Plan Assessment and Plan Assess & Plan/Chief Complaint Assessment: Myopathy CHF with volume overload requiring IV Lasix COPD Oxygen dependency New confusion with delirium as confirmed dx today Medical noncompliance Denial of severity of medical problems Former smoker Rheumatoid arthritis Chronic renal insufficiency Hyperglycemia awaiting hemoglobin A1c result Hypertension mar-lo-qtpjsyk Orthostasis with vertigo Plan: IV Lasix Inpatient rehabilitation protocol Strengthening Home meds Monitor closely Work on cognition Monitor labs O2 Nebs (1) Myopathy (2) Memory loss (3) Denial about severity of illness (4) COPD with acute exacerbation Status: Resolved Resolution Date/Time: 10/14/19 @ 14:22 (5) Paroxysmal atrial fibrillation Status: Chronic (6) Orthostatic hypotension Status: Resolved Resolution Date/Time: 10/14/19 @ 14:22 (7) Atrial fibrillation with rapid ventricular response Status: Acute (8) Noncompliance with medication regimen Status: Chronic (9) Hypoxia Status: Chronic (10) Uncontrolled hypertension Status: Acute (11) Hyperglycemia Status: Acute JEROME NEAL DO Oct 15, 2019 14:46
[2019-10-15 18:00] VITALS: BP 166/90
[2019-10-15] MEDS: risperiDONE 0.25 MG (RisperDAL) TAB PO SCH (21:19)
[2019-10-15] MEDS: ALPRAZolam 0.25 MG (XANAX) TAB PO PRN (21:20)
[2019-10-16 06:28] VITALS: BP 154/92
[2019-10-16] MEDS: predniSONE 20 MG TAB PO SCH (06:33)
[2019-10-16] MEDS: inSUlin ASPART (NovoLOG) 1 UNIT/0.01 ML (CHARGE PER UNIT) SC SCH ×4 (06:37→22:26)
[2019-10-16 07:08] LABS: BASOPHILS % (AUTO) 0 % (0-10); EOSINOPHILS # (AUTO) 0.1 10^3/uL (0.0-0.3); EOSINOPHILS % (AUTO) 0 % (0-10); HEMATOCRIT 43 % (35-52); HEMOGLOBIN 13.6 G/DL (11.5-16.0); LYMPHOCYTES # (AUTO) 1.3 X 10^3 (1.0-4.0); LYMPHOCYTES % (AUTO) 8 % (12-44); MEAN CORPUSCULAR HEMOGLOBIN 29 PG (25-34); MEAN CORPUSCULAR HGB CONC 32 G/DL (32-36); MEAN CORPUSCULAR VOLUME 91 FL (80-99); MEAN PLATELET VOLUME 10.8 FL (7.4-10.4); MONOCYTES % (AUTO) 6 % (0-12); NEUTROPHILS % (AUTO) 86 % (42-75); PLATELET COUNT 307 10^3/uL (130-400); RED CELL DISTRIBUTION WIDTH 15.3 % (10.0-14.5); WHITE BLOOD COUNT 16.4 10^3/uL (4.3-11.0)
[2019-10-16 07:27] LABS: ALANINE AMINOTRANSFERASE 77 U/L (0-55); ALBUMIN 3.6 GM/DL (3.2-4.5); ALKALINE PHOSPHATASE 112 U/L (40-136); BILIRUBIN,TOTAL 1.8 MG/DL (0.1-1.0); BUN/CREATININE RATIO 33; CALCIUM 9.5 MG/DL (8.5-10.1); CARBON DIOXIDE 29 MMOL/L (21-32); CHLORIDE 99 MMOL/L (98-107); CREATININE SERUM 0.87 MG/DL (0.60-1.30); GFR ESTIMATED > 60; GLUCOSE 112 MG/DL (70-105); POTASSIUM 3.7 MMOL/L (3.6-5.0); SODIUM 141 MMOL/L (135-145); TOTAL PROTEIN 6.2 GM/DL (6.4-8.2)
[2019-10-16 07:38] LABS: BAND NEUTROPHILS 1 %; LYMPHOCYTES % (MANUAL) 4 %; NEUTROPHILS % (MANUAL) 91 %
[2019-10-16 07:39] LABS: ANISOCYTOSIS SLIGHT; BASOPHILS % (MANUAL) 0 %; EOSINOPHILS % (MANUAL) 1 %; MONOCYTES % (MANUAL) 3 %
--- NOTE | 2019-10-16 08:04 | Occ Therapy Progress Note ---
Therapy Progress Note Daughter in room, stated that the pt had just gotten to sleep and she wanted her to sleep more. SAN explained that the pt will be getting 3 hours of therapy today and pt will be getting a schedule around 8:30 am for therapies. MENA rescheduled pt to later in am. 1 visit-refusal per daughter JENELLE RAMSEY Oct 16, 2019 08:04
[2019-10-16] MEDS: RT-ALBUTEROL/IPRATROPIUM 3 ML (DUONEB) VIAL INH SCH ×4 (08:06→21:54)
--- NOTE | 2019-10-16 08:37 | NUR ---
REVIEWED MED REC IT WAS REPORTED UPON ADMISSION TO 4TH FLOOR. THE ONLY CHANGE THAT WAS MADE WHEN THE PATIENT DISCHARGED TO REHAB WAS DISCONTINUING A SHORT TERM ROUND OF CLINDAMYCIN, I DID NOT ADD THAT BACK TO THE MED REC AT THIS TIME.
[2019-10-16 08:54] VITALS: BP 154/92
--- NOTE | 2019-10-16 08:54 | Physical Therapy Daily Note ---
PT Daily Note-Current Subjective Patient in recliner pre tx, agrees reluctantly to PT, no complaints of pain. Patient is very lethargic and confused, needs to get dressed and says she needs to use the restroom. Appearance Patient in recliner post tx with nurse call, phone, tray, chair alarm on, family in the room. Telesitter in room. Mental Status Patient Orientation: Person, Confused Attachments: Oxygen Transfers SCALE: Activities may be completed with or without assistive devices. 5-Vyuscrwcvf-pyafvrf completes the activity by him/herself with no assistance from a helper. 5-Set-up or Clean-up Assistance-helper sets up or cleans up; patient completes activity. [employer] assists only prior to or following the activity. 4-Supervision or Touching Assistance-helper provides verbal cues and/or touching/steadying and/or contact guard assistance as patient completes a ctivity. Assistance may be provided throughout the activity or intermittently. 3-Partial/Moderate Assistance-helper does LESS THAN HALF the effort. [employer] lifts, holds or supports trunk or limbs, but provides less than half the effort. 2-Substantial/Maximal Assistance-helper does MORE THAN HALF the effort. [employer] lifts or holds trunk or limbs and provides more than half the effort. 0-Xfvwnrofr-cgaopn does ALL the effort. Patient does none of the effort to complete the activity. Or, the assistance of 2 or more helpers is required for the patient to complete the activity. If activity was not attempted, code reason: 7-Patient Refused. 9-Not Applicable-not attempted and the patient did not perform the activity before the current illness, exacerbation or injury. 10-Not Attempted due to Environmental Limitations-(lack of equipment, weather restraints, etc.). 88-Not Attempted due to Medical Conditions or Safety Concerns. Sit to Stand (QC): 3 Chair/Qwo-mt-Xuxrd Xfer(QC): 3 Toilet Transfer (QC): 3 Initially patient is very retropulsive with sitting and standing and would lose balance and fall backwards if not for therapist assist, patient is not able to correct this. After patient does therapy for a while and wakes up this improves but never goes away completely. Patient needs constant cues for safety and positioning. Weight Bearing Right Lower Extremity: Right Full Weight Bearing Left Lower Extremity: Left Full Weight Bearing Gait Training Distance: 120' Walk 10 feet (QC): 3 Walk 50 ft with 2 Turns(QC): 3 Gait Assistive Device: FWW Min assist for balance, mostly unaware of her surroundings, runs into obstacles with walker, constant cues for safety and direction. Poor balance. Wheelchair Training Does the Pt Use a Wheelchair?: Yes Wheel 50 ft with 2 turns (QC): 1 Type of Wheelchair: Manual Exercises Standing: Heel/toe raises, Mini squats Standing Reps: 15 LAQ alternating for 5 min NuStep Minutes: 10 NuStep Workload: 5 Treatments dressing, toileting (patient can wipe herself but needs somebody to get toilet paper for her), transfers, ambulation, LE exercise Assessment Current Status: Poor Progress high fall risk, poor safety awareness PT Short Term Goals Short Term Goals Time Frame: Oct 21, 2019 Roll Left & Right: 6 Sit to lyin Lying to sitting on side of be: 6 Sit to stand: 6 PT Director [employer] Goals Shelter Goals PT Shelter Goals Time Frame: Nov 04, 2019 Roll Left & Right (QC): 6 Sit to Lying (QC): 6 Lying-Sitting on Side/Bed(QC): 6 Sit to Stand (QC): 6 Chair/Mep-xj-Verik Xfer(QC): 6 Toilet Transfer (QC): 6 Car Transfer (QC): 4 Does the Patient Walk: Yes Walk 10 feet (QC): 6 Walk 50ft with 2 Turns (QC): 6 Walk 150 ft (QC): 6 Walking 10ft on Uneven Surface: 6 1 Step (curb) (QC): 4 4 Steps (QC): 4 12 Steps (QC): 9 Picking up an Object (QC): 4 Does the Pt use WC or Scooter?: No Wheel 50 feet with 2 turns (QC: 9 Wheel 150 feet: 9 PT Plan Problem List Problem List: Activity Tolerance, Functional Strength, Safety, Balance, Gait, Transfer, Bed Mobility Treatment/Plan Treatment Plan: Continue Plan of Care Treatment Plan: Bed Mobility, Education, Functional Activity Rex, Functional Strength, Group Therapy, Gait, Safety, Therapeutic Exercise, Transfers Treatment Duration: Nov 04, 2019 Frequency: Modified Program (IRF) Estimated Hrs Per Day: 1.5 hours per day Patient and/or Family Agrees t: Yes Safety Risks/Education Patient Education: Gait Training, Transfer Techniques, Correct Positioning, Sa fety Issues Teaching Recipient: Patient Teaching Methods: Demonstration, Discussion Response to Teaching: Reinforcement Needed Time/GCodes Time In: 0800 Time Out: 0900 Total Billed Treatment Time: 60 Total Billed Treatment 1 visit EX 20' GT 10' FA 30' XIAO COLEY PT Oct 16, 2019 08:54
[2019-10-16] MEDS: SENNA W/DOCUSATE (SENOKOT S) TABLET PO SCH ×2 (08:59→20:44)
[2019-10-16] MEDS: APIXABAN 5 MG (ELIQUIS) TABLET PO SCH ×2 (08:59→20:41)
[2019-10-16] MEDS: CARVEDILOL 12.5 MG (COREG) TABLET PO SCH ×2 (08:59→20:41)
[2019-10-16] MEDS: risperiDONE 0.25 MG (RisperDAL) TAB PO SCH ×2 (08:59→20:41)
[2019-10-16] MEDS: DOCUSATE SODIUM 100 MG (COLACE) CAP PO SCH ×2 (08:59→20:44)
[2019-10-16] MEDS: DILTIAZEM 240 MG (CARDIZEM CD) CAP PO SCH (08:59)
[2019-10-16] MEDS: POLYETHYLENE GLYCOL 17 GM (MIRALAX) PACK PO SCH ×2 (09:32→20:45)
--- NOTE | 2019-10-16 10:06 | Diagnostic Imaging Report ---
INDICATION: Pulmonary edema PA and lateral views of the chest are obtained. Comparison is made to study of one day earlier. There is continued cardiomegaly and pulmonary venous congestion. Central pulmonary density persists but is slightly improved compared to previous study. There does appear to be mild blunting of the costophrenic sulci. IMPRESSION: Findings are most suggestive of mild improvement in bilateral pulmonary edema although mild residual density persists in both perihilar regions and additional follow-up study may be of value. Dictated by: Dictated on workstation # [id number]
--- NOTE | 2019-10-16 10:30 | NUR ---
Pastoral care visit.
--- NOTE | 2019-10-16 11:05 | PM&R Progress Note ---
Subjective HPI/CC On Admission Date Seen by Provider: Oct 16, 2019 Time Seen by Provider: 09:00 Subjective/Events-last exam Delirium is improved 2200cc of urinary output after Lasix of 40 given yesterday after my 20 Symbicort and Singulair will be given today Using IS Still asks to go home and I tell her to take one day at a time Pt ultimately will require skilled care if she can't be taken care of at home Updated family in-depth Family seems to be in denial about her issues also Checked meds and labs Reviewed therapy notes Conferred with RN extensively Review of Systems General: Fatigue Pulmonary: Dyspnea 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: Confusion Focused Exam Lactate Level 10/15/19 12:30: Lactic Acid Level 1.20 Objective Exam Vital Signs Vital Signs Date Time Temp Pulse Resp B/P (MAP) Pulse Ox O2 Delivery O2 Flow Rate FiO2 10/16/19 18:23 82 Room Air 10/16/19 18:00 36.2 85 18 139/92 (108) 3.00 10/16/19 08:54 32 Capillary Refill : Less Than 3 SecondsLess Than 3 Seconds General Appearance: WD/WN, Anxious, Chronically ill, Mild Distress, Other (more declined and [place] colored) HEENT: PERRL/EOMI, Normal ENT Inspection, Pharynx Normal Neck: Full Range of Motion, Normal Inspection, Non Tender, Supple, Carotid Bruit Respiratory: Chest Non Tender, Lungs Clear, No Accessory Muscle Use, No Respiratory Distress, Decreased Breath Sounds Cardiovascular: Regular Rate, Rhythm, No Edema, No Gallop, No JVD, No Murmur, Normal Peripheral Pulses Gastrointestinal: Normal Bowel Sounds, No Organomegaly, No Pulsatile Mass, Non Tender, Soft Back: Normal Inspection, No CVA Tenderness, No Vertebral Tenderness Extremity: Normal Capillary Refill, Normal Inspection, Normal Range of Motion, Non Tender, No Calf Tenderness, No Pedal Edema Neurologic/Psychiatric: Alert, No Motor/Sensory Deficits, mail handler assistant II-XII Norm as Tested, Depressed Affect, Disoriented (subtle poor recall) Skin: Normal Color, Warm/Dry Lymphatic: No Adenopathy Results/Procedures Lab Laboratory Tests 10/16/19 07:01 Patient resulted labs reviewed. FIM Transfers Therapy Code Descriptions/Definitions Functional [place] Measure: 0=Not Assessed/NA 4=Minimal Assistance 1=Total Assistance 5=Supervision or Setup 2=Maximal Assistance 6=Modified [place] 3=Moderate Assistance 7=Complete IndependenceSCALE: Activities may be completed with or without assistive devices. 4-Kyqthktrgi-ssqsalq completes the activity by him/herself with no assistance from a helper. 5-Set-up or Clean-up Assistance-helper sets up or cleans up; patient completes activity. [place] assists only prior to or following the activity. 4-Supervision or Touching Assistance-helper provides verbal cues and/or touching/steadying and/or contact guard assistance as patient completes activity. Assistance may be provided throughout the activity or intermittently. 3-Partial/Moderate Assistance-helper does LESS THAN HALF the effort. [place] lifts, holds or supports trunk or limbs, but provides less than half the effort. 2-Substantial/Maximal Assistance-helper does MORE THAN HALF the effort. [place] lifts or holds trunk or limbs and provides more than half the effort. 8-Wxsrdngoi-jejrbi does ALL the effort. Patient does none of the effort to complete the activity. Or, the assistance of 2 or more helpers is required for the patient to complete the activity. If activity was not attempted, code reason: 7-Patient Refused. 9-Not Applicable-not attempted and the patient did not perform the activity before the current illness, exacerbation or injury. 10-Not Attempted due to Environmental Limitations-(lack of equipment, weather restraints, etc.). 88-Not Attempted due to Medical Conditions or Safety Concerns. Roll Left to Right (QC): 4 Sit to Lying (QC): 4 Sit to Stand (QC): 3 Chair/Itf-aa-Cdory Xfer(QC): 3 Car Transfer (QC): 3 Gait Training Does the Patient Walk?: Yes Distance: 120' Walk 10 feet (QC): 3 Walk 50 ft with 2 Turns(QC): 3 Walk 150 ft (QC): 3 Walking 10ft/uneven surface-QC: 3 Gait Assistive Device: FWW Wheelchair Training Does the Pt Use a Wheelchair?: Yes Wheel 50 ft with 2 turns (QC): 1 Wheel 150 ft (QC): 9 Type of Wheelchair: Manual Stair Training #of Steps: 4 1 Step (curb) (QC): 3 4 Steps (QC): 3 12 Steps (QC): 88 Balance Picking up an Object (QC): 88 ADL-Treatment Eating (QC): 6 Oral Hygiene (QC): 7 Shower/Bathe Self (QC): 7 Upper Body Dressing (QC): 5 Lower Body Dressing (QC): 7 On/Off Footwear (QC): 3 Toileting Hygiene (QC): 7 Assessment/Plan Assessment and Plan Assess & Plan/Chief Complaint Assessment: Myopathy CHF with volume overload requiring IV Lasix COPD Oxygen dependency New confusion with delirium as confirmed dx today Medical noncompliance Denial of severity of medical problems Former smoker Rheumatoid arthritis Chronic renal insufficiency Hyperglycemia awaiting hemoglobin A1c result Hypertension tro-nn-ushpvzs Orthostasis with vertigo Plan: IV Lasix Inpatient rehabilitation protocol Strengthening Home meds Monitor closely Work on cognition Monitor labs O2 Nebs (1) Myopathy (2) Memory loss (3) Denial about severity of illness (4) COPD with acute exacerbation Status: Resolved Resolution Date/Time: 10/14/19 @ 14:22 (5) Paroxysmal atrial fibrillation Status: Chronic (6) Orthostatic hypotension Status: Resolved Resolution Date/Time: 10/14/19 @ 14:22 (7) Atrial fibrillation with rapid ventricular response Status: Acute (8) Noncompliance with medication regimen Status: Chronic (9) Hypoxia Status: Chronic (10) Uncontrolled hypertension Status: Acute (11) Hyperglycemia Status: Acute JEROME NEAL DO Oct 16, 2019 11:05
--- NOTE | 2019-10-16 11:06 | Individualized Plan of Care ---
Individualized Plan of Care Rehab Nursing IPOC Order Admission Date Oct 14, 2019 at 10:20 Current Orders Orders Admission Order(Inpt,Obs,Sdc) (10/13/19 17:20) Vital Signs: Per Unit Policy ( 08,16,00 (10/13/19 17:20) Iker Cai 09,21 (10/13/19 17:20) Sequential Compression Device Q4H (10/13/19 17:20) Chief Supply Chain Officer-Inpt Rehab Con (10/13/19 17:20) Rehab Nursing Orders-Ipoc (10/13/19 17:20) Physical Therapy Rehab Orders (10/13/19 17:20) Occupational Therapy Rehab Ord (10/13/19 17:20) Speech Therapy Rehab Orders (10/13/19 17:20) General/Regular (10/14/19 Breakfast) Intake & Output 06,14,22 (10/13/19 17:20) Precautions (Aru) (10/13/19 17:20) Weekly Weight WEEK (10/13/19 17:20) Rehab-Intensity Of Therapy (10/13/19 17:20) Initiate Admission Nursing Pro .admission (10/13/19 17:20) Alprazolam Tablet (Xanax Tablet) (10/13/19 17:30) Calcium Carbonate Chew Tablet (Antacid C (10/13/19 17:30) Diphenhydramine Tablet (Benadryl Tablet) (10/13/19 17:30) Docusate Sodium Capsule (Colace Capsule) (10/13/19 21:00) Docusate Sodium Capsule (Colace Capsule) (10/13/19 17:30) Bisacodyl Suppository (Dulcolax Supposit (10/13/19 17:30) Lactulose Oral Solution (Enulose Oral So (10/13/19 17:30) Na Phos/Na Biphos Enema (Fleet Enema Justice (10/13/19 17:30) Guaifenesin/Codeine Syrup (Robitussin Ac (10/13/19 17:30) Loperamide Tablet (Imodium Tablet) (10/13/19 17:30) Melatonin Tablet (Melatonin Tablet) (10/13/19 17:30) Polyethylene Glycol Powder Pkt (Miralax (10/13/19 21:00) Ondansetron Injection (Zofran Injectio (10/13/19 17:30) Ondansetron Oral Dissolve Tab (Zofran (10/13/19 17:30) Senna S Tablet (Senokot S Tablet) (10/13/19 21:00) Transfer - Bed/Room/Location (10/14/19 10:20) Ambulate 08,12,20 (10/14/19 10:50) Sequential Compression Device Q4H (10/14/19 10:50) Dvt/Vte Risk - Notifiy Physici Q4H (10/14/19 10:50) Patient Visit (10/14/19 ) Pt Eval High Complexity (10/14/19 ) Gait Training, Ea 15 Min (10/14/19 ) Code/Resuscitation (10/14/19 12:18) Accucheck Achs ACHS (10/14/19 12:18) Catheter(Urinary) Discontinue (10/14/19 12:18) Cho 45g/M 1snack (12-1500 Hemant) (10/14/19 Dinner) Albuterol/Ipra Inhalation Soln (Duoneb I (10/14/19 12:30) Apixaban Tablet (Eliquis Tablet) (10/14/19 21:00) Atorvastatin Tablet (Lipitor Tablet) (10/14/19 21:00) Citalopram Tablet (Celexa Tablet) (10/14/19 21:00) Carvedilol Tablet (Coreg Tablet) (10/14/19 21:00) Diltiazem Cd 24 Hr Capsule (Cardizem Cd (10/15/19 09:00) Meclizine Tablet (Antivert Tablet) (10/14/19 12:30) Nitroglycerin Ointment (Nitrobid Ointme (10/14/19 12:30) Insulin Aspart (Novolog) (Novolog (Charg (10/14/19 16:00) Prednisone Tablet (Deltasone Tablet) (10/15/19 07:00) Consult Cardiology (10/14/19 12:18) Consult Pulmonology (10/14/19 12:18) Oxygen Delivery Set Up (10/14/19 12:18) Cbc With Automated Diff (10/15/19 06:00) Comprehensive Metabolic Panel (10/15/19 06:00) Hemoglobin A1c (10/14/19 12:22) Scopolamine Patch (Transderm-Scop Patch) (10/17/19 06:30) Patch Removal (Patch Removal) (10/17/19 06:30) Albuterol/Ipra Inhalation Soln (Duoneb I (10/14/19 20:00) Arterial Blood Gas (10/15/19 12:16) Arterial Blood Draw (10/15/19 12:03) Chest 1 View, Ap/Pa Only (10/15/19 12:03) Lactic Acid Analyzer (10/15/19 12:18) Furosemide Injection (Lasix Injection) (10/15/19 13:00) Risperidone Tablet (Risperdal Tablet) (10/15/19 13:00) Risperidone Tablet (Risperdal Tablet) (10/15/19 21:00) Procalcitonin (Pct) (10/15/19 12:50) BNP (10/15/19 12:51) Prednisone Tablet (Deltasone Tablet) (10/16/19 07:00) Cbc With Automated Diff (10/16/19 06:00) Comprehensive Metabolic Panel (10/16/19 06:00) Chest Pa/Lat (2 View) (10/16/19 06:00) BNP (10/16/19 06:00) Furosemide Injection (Lasix Injection) (10/15/19 17:45) Manual Differential (10/16/19 07:01) Albuterol/Ipra Inhalation Soln (Duoneb I (10/16/19 10:00) Mat Initiate Protocol (10/16/19 08:54) Montelukast Tablet (Singulair Tablet) (10/17/19 09:00) Fluticasone/Salmeterol Common (Advair 11 (10/16/19 12:00) Mdi Treatment (10/16/19 11:22) Rehab Nursing Orders: Ongoing Assess. of Cognitive Status, Ongoing Assess. of Function Status, Bladder Management, Bladder Scan, Bladder Training, Bowel Management, Bowel Training, Disease Management & Educaiton, DVT Prophylaxis, Fall Prevention, Fluid/Electrolyte/Nutrition Mgmt, Infection Prevention, Medication Management & Education, Management of Risks & Complications, Nutrition Management, Pain Management, Patient/Family Support, Safety Management Intensity of Therapy to be met Patient to be seen: Min.3h per day/5 of 7d PT IPOC Problem List: Activity Tolerance, Functional Strength, Safety, Balance, Gait, Transfer, Bed Mobility Treatment Plan: Continue Plan of Care Bed Mobility, Education, Functional Activity Rex, Functional Strength, Group Therapy, Gait, Safety, Therapeutic Exercise, Transfers Treatment Duration: Nov 04, 2019 Frequency: Modified Program (IRF) Estimated Hrs Per Day: 1.5 hours per day OT IPOC Problems: Decreased Activ Tolerance, Decreased UE Strength, Dependent Transfers, Impaired Bed Mobility, Impaired Funct Balance, Impaired I ADL's, Impaired Self-Care Skills OT Treatment, Training and Edu: Yes Plan of Care: ADL Retraining, Caregiver Training, Concurrent Therapy, Functional Mobility, Group Exercise/Act as Ind, UE Funct Exercise/Act Treatment Duration: Oct 28, 2019 Frequency: At least 5 of 7 days/Wk (IRF) Estimated Hrs Per Day: 1.[address] IPOC Speech Therapy Treatment Plan: Continue Plan of Care Treatment Duration: Oct 16, 2019 Frequency: 2 times per week Estimated Hrs Per Day: Other Chief Supply Chain Officer/Case Mgmt Chief Supply Chain Officer/Case Managemen: Discharge Planning Dietitian/Real Estate Portfolio Manager Dietitian/Real Estate Portfolio Manager to monitor nutritional status and make changes and/or recommendations as needed and work with speech pathology on dietary upgrades as the occur. Physician IPOC Medical Issues being managed closely and that require the 24 hour availability of a physician: Recent multiple hospital stays for CHF and COPD and now confusion will require close monitoring along with IV diuresis with Cardiology management Medical Issues: Bowel/Bladder Function, DVT Prophylaxis, Falls Precautions, Fluid/Electrolyte/Nutrition Balance, Infection Protection, Pain Management Brief Synthesis of Preadmission Screen, Post-Admission Evaluation, and Therapy Evaluations: PT will help ambulation with O2 and work on regaining strength and fall risk prevention OT will focus on increasing independence in ADL's ST will focus on cognition Medical Prognosis: Good Anticipated Length of Stay: 7 days JEROME NEAL DO Oct 16, 2019 11:05
--- NOTE | 2019-10-16 12:54 | Occupational Ther Daily Note ---
OT Current Status-Daily Note Subjective Pt alert, sitting in recliner. Pt's present in room. Pt requires encouragement to participate in therapy. No c/o pain at this time. Mental Status/Objective Patient Orientation: Person, Confused, Time Attachments: IV ADL-Treatment Pt agrees to shower, states that she normally takes baths. Pt is unsteady with transfers, static/dynamic standing. Pt transferred to w/c with min A due to LOB. Pt transferred to toilet using grabbars and w/c, min A. CGA and verbal cues to manipulate clothing for toileting and cleansed self sitting on toilet. Min A to transfer into shower using grabbars and FWW. SBA while pt completed shower in sitting then CGA in standing while pt cleanse buttocks. Pt required verbal cue not to put foot up to cleanse while standing. Mod A for lower body dressing. Will attempt to educate pt on LE dressing AE. Educated pt on pursed lip breathing. Pt able to don/doff upper body clothing by self after setup. Pt takes increased time to complete oral care by self. After session, pt sitting in recliner with call light/phone in reach. Safety measures in place. All needs met in room. Therapy Code Descriptions/Definitions Functional Power Measure: 0=Not Assessed/NA 4=Minimal Assistance 1=Total Assistance 5=Supervision or Setup 2=Maximal Assistance 6=Modified Power 3=Moderate Assistance 7=Complete IndependenceSCALE: Activities may be completed with or without assistive devices. 5-Htkgvbgqms-zuyzpqi completes the activity by him/herself with no assistance from a helper. 5-Set-up or Clean-up Assistance-helper sets up or cleans up; patient completes activity. [place] assists only prior to or following the activity. 4-Supervision or Touching Assistance-helper provides verbal cues and/or touching/steadying and/or contact guard assistance as patient completes activity. Assistance may be provided throughout the activity or intermittently. 3-Partial/Moderate Assistance-helper does LESS THAN HALF the effort. [place] lifts, holds or supports trunk or limbs, but provides less than half the effort. 2-Substantial/Maximal Assistance-helper does MORE THAN HALF the effort. [place] lifts or holds trunk or limbs and provides more than half the effort. 2-Omdzhwpow-wyvfbx does ALL the effort. Patient does none of the effort to complete the activity. Or, the assistance of 2 or more helpers is required for the patient to complete the activity. If activity was not attempted, code reason: 7-Patient Refused. 9-Not Applicable-not attempted and the patient did not perform the activity before the current illness, exacerbation or injury. 10-Not Attempted due to Environmental Limitations-(lack of equipment, weather restraints, etc.). 88-Not Attempted due to Medical Conditions or Safety Concerns. Oral Hygiene (QC): 6 Shower/Bathe Self (QC): 4 Upper Body Dressing (QC): 5 Lower Body Dressing (QC): 2 On/Off Footwear: 2 Toileting Hygiene (QC): 4 Toilet Transfer (QC): 3 OT Curriculum Development Coordinator Goals Senior Care Goals Time Frame: Oct 28, 2019 Eating (QC): 6 Oral Hygiene (QC): 6 Toileting Hygiene (QC): 6 Shower/Bathe Self (QC): 6 Upper Body Dressing (QC): 6 Lower Body Dressing (QC): 6 On/Off Footwear (QC): 6 Additional Goals: 1-Demonstrate ADL Tasks, 2-Verbalize Understanding, 3- ImproveStrength/Rex 1=Demonstrate adherence to instructed precautions during ADL tasks. 2=Patient will verbalize/demonstrate understanding of assistive devices/modifications for ADL. 3=Patient will improve strength/tolerance for activity to enable patient to perform ADL's. OT Education/Plan Problem List/Assessment Assessment: Decreased Activ Tolerance, Decreased Safety Aware, Impaired Cognition, Impaired Coordination, Impaired Funct Balance, Impaired Self-Care Skills Discharge Recommendations Plan/Recommendations: Continue POC Treatment Plan/Plan of Care Patient would benefit from OT for education, treatment and training to promote independence in ADL's, mobility, safety and/or upper extremity function for ADL's. Plan of Care: ADL Retraining, Caregiver Training, Concurrent Therapy, Functional Mobility, Group Exercise/Act as Ind, UE Funct Exercise/Act Treatment Duration: Oct 28, 2019 Frequency: At least 5 of 7 days/Wk (IRF) Estimated Hrs Per Day: 1.5 hours per day Agreement: Yes Rehab Potential: Fair Time/GCodes Start Time: 10:30 Stop Time: 12:00 Total Time Billed (hr/min): 90 Billed Treatment Time 1 visit-ADL 6 (90 min) JENELLE RAMSEY Oct 16, 2019 12:54
--- NOTE | 2019-10-16 12:55 | ST Cognitive Linguistic Eval ---
Speech Evaluation-General Medical Diagnosis vertigo/HTN/CHF/[place] Onset Date: Oct 11, 2019 Therapy Diagnosis Therapy Diagnosis: Cognitive-communication Referral Referring Physician: Dr. Verde Medical History Pertinent Medical History: Atrial Fib, Arthritis, CAD, COPD, HTN, VA, Rheumatoid Arthritis Reviewed History: Yes Social History Current Living Status: Spouse Speech PLF-Current Status Prior Level of Function Patient lives in her home with her . She was independent for some of her daily needs. Subjective Patient was pleasant and compliant with the cognitive assessment. Language Eval: Auditory Comprehends Simple Yes/No Ques: Functional Indent/Objects Multiple Rao: Functional Ident/Pics in Multiple Rao: Functional Follows 1-Step Commands: Functional Follows Complex Directions: Mild Follows General Conversations: Mild Language Eval: Verbal Language Completes Spontaneous Greeting: Functional Produces Auto, Serial Info: Functional Imitates Simple Words/Phrases: Functional Word Finding: Mild Requests Basic Needs: Functional States Basic Personal Info: Functional Expresses Complex Ideas: Mild Objective Cognitive Domain Attention: WNL Memory: Mild Problem Solving: Mild Executive Functions: Mild Visuospatial Skills: Mild Composite Severity Rating: Mild Clock Drawing Severity Rating: Mild Objective Formal/Standardized Tests [facility] Mental Status ([facility]) Results 22/30, Mild Neurocognitive Disorder range of function Oral Motor/Speech Production Within Normal Limits Impression Patient is a pleasant 74 year old female who was admitted to the ARU for strengthening in order to return home safely. Patient was given the SLUMS with a score of 22/30 which is within the MNCD range of function. The patient will receive skilled ST for improving cognitive function with focus on safety and independence. Speech Patient Assess Expression of Ideas/Wants: Frequently (2) Understanding Verbal Content: Usually Understands (3) Brief Interview-Mental Status: Yes Repetition of Three Words: Three (3) Temporal Orientation: Year: Correct (3) Temporal Orientation: Month: Accurate within 5 days(2) Temporal Orientation: Day: Correct (1) Recall : Wear to say "Sock": Yes,after cueing (1) Recall : Color: Yes, after cueing (1) Recall : Bed: No, could not recall (0) Memory/Recall Ability: Current season, That he or she is in a hsp/hsp unit Speech Short Term Goals Short Term Goals Short Term Goals 1) The patient will complete memory tasks related to her daily needs at 90% or greater with minimal cues. 2) The patient will complete safety awareness tasks related to her daily needs at 90% or greater with minimal cues. 3) The patient will complete problem solving tasks related to her daily needs at 90% or greater with minimal cues. Speech Computer Graphic Designer Goals Senior Living Goals Patient will improve cognitive-communication necessary for safety and daily living tasks with minimal assist. Speech-Plan Patient/Family Goals Patient/Family Goals: The patient plans on returning to her home with her upon rehab discharge. Treatment Plan Speech Therapy Treatment Plan: Continue Plan of Care Patient will receive skilled cognitive therapy. Treatment Duration: Oct 27, 2019 Frequency: 4 times per week Estimated Hrs Per Day: .5 hour per day Rehab Potential: Fair Barriers to Learning: Patient has MNCD range of cognitive function Pt/Family Agrees to Plan: Yes Safety Risks/Education Teaching Recipient: Patient, Significant Other Teaching Methods: Discussion Response to Teaching: Verbalize Understanding Education Topics Provided: Safety within her room and utilization of the call light as needed. Time Speech Therapy Time In: 12:30 Speech Therapy Time Out: 12:45 Total Billed Time: 15 Billed Treatment Time 1, YUE Cid Oct 16, 2019 12:54
--- NOTE | 2019-10-16 14:26 | Physical Therapy Daily Note ---
PT Daily Note-Current Subjective Patient is in bed with spouse present. Patient is very confused and lethargic. Mental Status Patient Orientation: Confused Attachments: Oxygen (3L NC) Transfers SCALE: Activities may be completed with or without assistive devices. 1-Nfcrmgidwc-krpyavd completes the activity by him/herself with no assistance from a helper. 5-Set-up or Clean-up Assistance-helper sets up or cleans up; patient completes activity. [place] assists only prior to or following the activity. 4-Supervision or Touching Assistance-helper provides verbal cues and/or touching/steadying and/or contact guard assistance as patient completes activity. Assistance may be provided throughout the activity or intermittently. 3-Partial/Moderate Assistance-helper does LESS THAN HALF the effort. [place] lifts, holds or supports trunk or limbs, but provides less than half the effort. 2-Substantial/Maximal Assistance-helper does MORE THAN HALF the effort. [place] lifts or holds trunk or limbs and provides more than half the effort. 0-Grhzznhhp-tnrjmi does ALL the effort. Patient does none of the effort to complete the activity. Or, the assistance of 2 or more helpers is required for the patient to complete the activity. If activity was not attempted, code reason: 7-Patient Refused. 9-Not Applicable-not attempted and the patient did not perform the activity before the current illness, exacerbation or injury. 10-Not Attempted due to Environmental Limitations-(lack of equipment, weather restraints, etc.). 88-Not Attempted due to Medical Conditions or Safety Concerns. Roll Left & Right (QC): 3 Sit to Lying (QC): 3 Lying to Sitting/Side of Bed(Q: 3 Sit to Stand (QC): 3 Chair/Pjj-kk-Pjrme Xfer(QC): 3 Toilet Transfer (QC): 3 patient is very unsteady with all bed mobility and transfers and is unaware of safety concerns Weight Bearing Right Lower Extremity: Right Full Weight Bearing Left Lower Extremity: Left Full Weight Bearing Gait Training Does the Patient Walk?: Yes Distance: 150' x 3 Walk 10 feet (QC): 2 Walk 50 ft with 2 Turns(QC): 2 Walk 150 ft (QC): 2 Gait Assistive Device: FWW bilateral UE's extended with FWW use/flexed knee, shuffle gait sequence Exercises Seated Therapy Exercises: Ankle pumps, Long arc quads, Hip flexion Seated Reps: 15 (2 sets) Assessment Patient requires continuous redirection to remain on task and is highly unaware of safety concerns. Patient is severely limited with safe mobility. PT Short Term Goals Short Term Goals Time Frame: Oct 21, 2019 Roll Left & Right: 6 Sit to lyin Lying to sitting on side of be: 6 Sit to stand: 6 PT Halfway Goals Fishing Hand Goals PT Halfway Goals Time Frame: Nov 04, 2019 Roll Left & Right (QC): 6 Sit to Lying (QC): 6 Lying-Sitting on Side/Bed(QC): 6 Sit to Stand (QC): 6 Chair/Myb-dh-Wqbmv Xfer(QC): 6 Toilet Transfer (QC): 6 Car Transfer (QC): 4 Does the Patient Walk: Yes Walk 10 feet (QC): 6 Walk 50ft with 2 Turns (QC): 6 Walk 150 ft (QC): 6 Walking 10ft on Uneven Surface: 6 1 Step (curb) (QC): 4 4 Steps (QC): 4 12 Steps (QC): 9 Picking up an Object (QC): 4 Does the Pt use WC or Scooter?: No Wheel 50 feet with 2 turns (QC: 9 Wheel 150 feet: 9 PT Plan Treatment/Plan Treatment Plan: Continue Plan of Care Treatment Plan: Bed Mobility, Education, Functional Activity Rex, Functional Strength, Group Therapy, Gait, Safety, Therapeutic Exercise, Transfers Treatment Duration: Nov 04, 2019 Frequency: Modified Program (IRF) Estimated Hrs Per Day: 1.5 hours per day Patient and/or Family Agrees t: Yes Time/GCodes Time In: 1350 Time Out: 1420 Total Billed Treatment Time: 30 Total Billed Treatment 1 visit GT 20 min EX 10 min MERT KASPER PT Oct 16, 2019 14:26
--- NOTE | 2019-10-16 15:12 | NUR ---
RD ASSESSMENT PMHx: RA; afib; CAD; COPD; hypercholesterolemia; HTN; GERD; long hx of non-compliance PT INTERACTION: Pt was awake and pleasant during nutrition assessment. Pt states current appetite is good and has been for some time. Note avg PO intake of 45% x4meal, per chart review. Pt states trying to follow a gluten-free diet at home, and pt would not elaborate as to why they are following this diet. This RD unsure as pt has no hx of gluten sensitivity or Celiac disease, per chart review. Pt states some issues with swallowing food as she has "tongue pain" possibly from [place]. Pt states no recent issues with n/v/c/d at this time. Note last BM was 10/15, and pt currently on bowel regimen of colace BID; miralax BID; and senna BID, per chart review. Pt states possible recent wt loss, but unsure of amount/timeframe. Pt states UBW between 161-165#. Note current wt of 174# per chart review. ABNORMAL NUTRITION-RELATED LAB VALUES LOW: Pro 6.2 HIGH: BUN 29; glu 112; bili 1.8; ALT 77 Est. kcal needs: 1171-3289 kcal | 20-25 kcal/kg Est. Pro needs: 63-79 g Pro | 0.8-1.0 g Pro/kg PES STATEMENT: Inadequate oral intake (NI-2.1) related to "dry mouth" | loss of appetite as evidenced by pt interview | avg PO intake 45% x4meal INTERVENTION: Continue with current diet order of CHO 45g/m 1snack diet. Add Glucerna (vary) to meals BID, for increased kcal intake. Provides 220 kcal and 10 g Pro per serving. Will continue to follow and reassess as pt needs and status change. MONITOR/EVALUATE: PO Intake; Plan of Care; Hydration Status; Weight Status; Lab Values Alma Ansari, MS, RD, LD
[2019-10-16 15:30] VITALS: BP 118/82
--- NOTE | 2019-10-16 17:25 | Cardiology Progress Note ---
Cardiology SOAP Progress Note Subjective: Mild shortness of breath. Objective: I&O/Vital Signs 10/16/19 10/16/19 10/16/19 10/16/19 06:28 08:06 08:54 09:00 Temp 36.6 36.6 Pulse 87 86 Resp 21 B/P (MAP) 154/92 (112) Pulse Ox 97 99 98 O2 Delivery Nasal Cannula Nasal Cannula Nasal Cannula O2 Flow Rate 4.00 4.00 4.00 FiO2 32 10/16/19 10/16/19 11:38 15:30 Temp 35.5 Pulse 70 Resp 14 B/P (MAP) 118/82 (94) Pulse Ox 98 99 O2 Delivery Nasal Cannula Nasal Cannula O2 Flow Rate 3.00 3.00 10/16/19 00:00 Intake Total 600 ml Output Total 725 ml Balance -125 ml Weight (Pounds): 170 Weight (Ounces): 0 Weight (Calculated Kilograms): [id number] Constitutional: AAO x 3 Respiratory: chest is bilaterally symmetric, lungs clear to auscultation Cardiovascular: irregularly irregular, S1 and S2 Gastrointestional: soft, audible bowel sounds Extremities: normal range of motion, non-tender, normal inspection, no lower extremity edema bilateral Neurologic/Psychiatric: alert, normal mood/affect, grossly intact Skin: normal color, warm/dry Results/Procedures: Labs Laboratory Tests 10/15/19 20:59: Glucometer 158H 10/16/19 06:37: Glucometer 122H 10/16/19 07:01: White Blood Count 16.4H, Red Blood Count 4.75, Hemoglobin 13.6, Hematocrit 43, Mean Corpuscular Volume 91, Mean Corpuscular Hemoglobin 29, Mean Corpuscular Hemoglobin Concent 32, Red Cell Distribution Width 15.3H, Platelet Count 307, Mean Platelet Volume 10.8H, Neutrophils (%) (Auto) 86H, Lymphocytes (%) (Auto) 8L, Monocytes (%) (Auto) 6, Eosinophils (%) (Auto) 0, Basophils (%) (Auto) 0, Neutrophils # (Auto) 14.0H, Lymphocytes # (Auto) 1.3, Monocytes # (Auto) 1.0, Eosinophils # (Auto) 0.1, Basophils # (Auto) 0.0, Neutrophils % (Manual) 91, Lymphocytes % (Manual) 4, Monocytes % (Manual) 3, Eosinophils % (Manual) 1, Basophils % (Manual) 0, Band Neutrophils 1, Anisocytosis SLIGHT, Sodium Level 141, Potassium Level 3.7, Chloride Level 99, Carbon Dioxide Level 29, Anion Gap 13, Blood Urea Nitrogen 29H, Creatinine 0.87, Estimat Glomerular Filtration Rate > 60, BUN/Creatinine Ratio 33, Glucose Level 112H, Calcium Level 9.5, Corrected Calcium 9.8, Total Bilirubin 1.8H, Aspartate Amino Transf (AST/SGOT) 33, Alanine Aminotransferase (ALT/SGPT) 77H, Alkaline Phosphatase 112, B-Type Natriuretic Peptide 485.3H, Total Protein 6.2L, Albumin 3.6 10/16/19 11:01: Glucometer 234H 10/16/19 14:00: Glucometer 162H 10/16/19 15:28: Glucometer 118H A/P: Assessment/Dx: Intractable dizziness, COPD, Mild acute on chronic systolic/diastolic heart failure, Atrial fibrillation with controlled ventricular rate CAD, History of smoking Plan: Plan: Dizziness. Telemetry. Defer to the primary team. Leukocytosis. Sepsis needs to be ruled out. Defer to the primary team. COPD, defer treatment to Dr. Verde. Likely the cause of shortness of breath. Mild acute on chronic systolic/diastolic heart failure. BNP over 400 on admission. Currently BNP just over 400. Unlikely florid congestive heart failure. Can continue low-dose IV Lasix. Atrial fibrillation with controlled ventricular rate, continue Cardizem and oral anticoagulation. CAD, history of PCI and stents. No chest pain. Troponins over the last 4 days 2 have been negative. History of smoking Thank you for your consultation. Please call me if you have any questions. Edwina Bermudez MD, FACP, FACC, FSCAI, FHRS, CCDS Interventional Cardiology Cardiac Electrophysiology Vascular Medicine and Endovascular Interventions Focused Exam Lactate Level 10/15/19 12:30: Lactic Acid Level 1.20 Faby BERMUDEZ MD Oct 16, 2019 17:25
[2019-10-16 18:00] VITALS: BP 139/92
[2019-10-16 21:21] VITALS: BP 152/82
[2019-10-17] MEDS: RT-ALBUTEROL/IPRATROPIUM 3 ML (DUONEB) VIAL INH SCH ×5 (02:01→19:00)
[2019-10-17 04:05] VITALS: BP 110/79
[2019-10-17] MEDS: SCOPOLAMINE 1.5 MG (TRANSDERM-SCOP) PATCH TOP SCH (06:19)
[2019-10-17] MEDS: PATCH REMOVAL TP SCH (06:19)
[2019-10-17] MEDS: predniSONE 20 MG TAB PO SCH (06:19)
[2019-10-17] MEDS: inSUlin ASPART (NovoLOG) 1 UNIT/0.01 ML (CHARGE PER UNIT) SC SCH ×4 (06:21→21:34)
[2019-10-17] MEDS: DOCUSATE SODIUM 100 MG (COLACE) CAP PO SCH ×2 (07:45→20:02)
[2019-10-17] MEDS: POLYETHYLENE GLYCOL 17 GM (MIRALAX) PACK PO SCH ×2 (07:45→20:02)
[2019-10-17] MEDS: SENNA W/DOCUSATE (SENOKOT S) TABLET PO SCH ×2 (07:45→20:02)
[2019-10-17] MEDS: APIXABAN 5 MG (ELIQUIS) TABLET PO SCH ×2 (08:19→20:02)
[2019-10-17] MEDS: CARVEDILOL 12.5 MG (COREG) TABLET PO SCH ×2 (08:19→20:01)
[2019-10-17] MEDS: MONTELUKAST 10 MG (SINGULAIR) TAB PO SCH (08:19)
[2019-10-17] MEDS: risperiDONE 0.25 MG (RisperDAL) TAB PO SCH ×2 (08:19→20:02)
[2019-10-17] MEDS: DILTIAZEM 240 MG (CARDIZEM CD) CAP PO SCH (08:19)
--- NOTE | 2019-10-17 10:49 | Occupational Ther Daily Note ---
OT Current Status-Daily Note Subjective Pt participated in therapy this am with encouragement. Pt states multiple times that she will just complete tasks when she gets home. Daughter present and encourages pt to participate. Pt has no c/o pain, but states she is tired. Mental Status/Objective Attachments: Oxygen ADL-Treatment Pt sitting in BSC when therapist arrives. Pt states she has already completed toileting hygiene. Sit to stand with min assist. Pt requires assist to complete pant hike. Transfer to chair with FWW. Pt has decreased balance and safety awareness. Requires assist to manage FWW and skilled cues for sequencing and safety. Pt agrees to shower. Gait to restroom with FWW. Pt is impulsive and requires constant direction for FWW use, safety and sequencing. Transfer to shower bench with min assist using grab bars, skilled cues for safety. Seated bathing completed using hand held shower. Pt bathes upper body with SBA, but requires min assist for lower body bathing. Don pullover shirt with SBA and cues to pull down in the back. Assist required to thread bilateral LE into Depends and pants. Sit to stand with min assist. Pt able to complete pant hike with assist for balance and cues for sequencing. Pt attempts to don socks, but requires assist to complete task. Pt completed grooming tasks while seated at sink. Brushed hair with set up. Pt required SBA to complete oral care. Pt fatigues with activity and requires occasional rest breaks throughout treatment. Pt transferred to bed with min assist. Sit to supine with min assist. Pt resting in bed with needs met, bed alarm on, telesitter in room, and spouse present after session. Therapy Code Descriptions/Definitions Functional Teller Measure: 0=Not Assessed/NA 4=Minimal Assistance 1=Total Assistance 5=Supervision or Setup 2=Maximal Assistance 6=Modified Teller 3=Moderate Assistance 7=Complete IndependenceSCALE: Activities may be completed with or without assistive devices. 2-Orfrxixfby-jjsjlgd completes the activity by him/herself with no assistance from a helper. 5-Set-up or Clean-up Assistance-helper sets up or cleans up; patient completes activity. [place] assists only prior to or following the activity. 4-Supervision or Touching Assistance-helper provides verbal cues and/or touching/steadying and/or contact guard assistance as patient completes activity. Assistance may be provided throughout the activity or intermittently. 3-Partial/Moderate Assistance-helper does LESS THAN HALF the effort. [place] lifts, holds or supports trunk or limbs, but provides less than half the effort. 2-Substantial/Maximal Assistance-helper does MORE THAN HALF the effort. [place] lifts or holds trunk or limbs and provides more than half the effort. 0-Bhhayhkte-zcxywx does ALL the effort. Patient does none of the effort to complete the activity. Or, the assistance of 2 or more helpers is required for the patient to complete the activity. If activity was not attempted, code reason: 7-Patient Refused. 9-Not Applicable-not attempted and the patient did not perform the activity before the current illness, exacerbation or injury. 10-Not Attempted due to Environmental Limitations-(lack of equipment, weather restraints, etc.). 88-Not Attempted due to Medical Conditions or Safety Concerns. Oral Hygiene (QC): 4 Shower/Bathe Self (QC): 3 Upper Body Dressing (QC): 4 Lower Body Dressing (QC): 3 On/Off Footwear: 2 Toilet Transfer (QC): 3 Education OT Patient Education: Safety issues Teaching Recipient: Patient Teaching Methods: Discussion Response to Teaching: Unable to Comprehend, Reinforcement Needed OT Group Home Goals Group Home Goals Time Frame: Oct 28, 2019 Eating (QC): 6 Oral Hygiene (QC): 6 Toileting Hygiene (QC): 6 Shower/Bathe Self (QC): 6 Upper Body Dressing (QC): 6 Lower Body Dressing (QC): 6 On/Off Footwear (QC): 6 Additional Goals: 1-Demonstrate ADL Tasks, 2-Verbalize Understanding, 3- ImproveStrength/Rex 1=Demonstrate adherence to instructed precautions during ADL tasks. 2=Patient will verbalize/demonstrate understanding of assistive devices/modifications for ADL. 3=Patient will improve strength/tolerance for activity to enable patient to perform ADL's. OT Education/Plan Discharge Recommendations Plan/Recommendations: Continue POC Treatment Plan/Plan of Care Patient would benefit from OT for education, treatment and training to promote independence in ADL's, mobility, safety and/or upper extremity function for ADL's. Plan of Care: ADL Retraining, Caregiver Training, Concurrent Therapy, Functional Mobility, Group Exercise/Act as Ind, UE Funct Exercise/Act Treatment Duration: Oct 28, 2019 Frequency: At least 5 of 7 days/Wk (IRF) Estimated Hrs Per Day: 1.5 hours per day Agreement: Yes Rehab Potential: Fair Time/GCodes Start Time: 08:00 Stop Time: 09:15 Total Time Billed (hr/min): 75 Billed Treatment Time 1 visit, ADLx5(75minutes) BROOKE BUSTOS OT Oct 17, 2019 10:49
--- NOTE | 2019-10-17 11:30 | PM&R Progress Note ---
Subjective HPI/CC On Admission Date Seen by Provider: Oct 17, 2019 Time Seen by Provider: 10:30 Subjective/Events-last exam Delirium is about the same Lasix will be given as needed Symbicort and Singulair were started yesterday Using IS Still asks to go home and I tell her to take one day at a time Pt ultimately will require skilled care if she can't be taken care of at home due to her confusion and delirium does not lift during hospital stay here Updated family in-depth Family seems to be in denial about her issues also Checked meds and labs Reviewed therapy notes Conferred with RN extensively Review of Systems Pulmonary: Dyspnea, Cough 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: Confusion Focused Exam Lactate Level 10/15/19 12:30: Lactic Acid Level 1.20 Objective Exam Vital Signs Vital Signs Date Time Temp Pulse Resp B/P (MAP) Pulse Ox O2 Delivery O2 Flow Rate FiO2 10/17/19 10:47 98 Nasal Cannula 3.00 10/17/19 04:05 36.2 92 18 110/79 (89) 10/16/19 08:54 32 Capillary Refill : Less Than 3 SecondsLess Than 3 Seconds General Appearance: WD/WN, Anxious, Chronically ill, Mild Distress, Other (more declined and richmond colored) HEENT: PERRL/EOMI, Normal ENT Inspection, Pharynx Normal Neck: Full Range of Motion, Normal Inspection, Non Tender, Supple, Carotid Bruit Respiratory: Chest Non Tender, Lungs Clear, No Accessory Muscle Use, No Respiratory Distress, Decreased Breath Sounds Cardiovascular: Regular Rate, Rhythm, No Edema, No Gallop, No JVD, No Murmur, Normal Peripheral Pulses Gastrointestinal: Normal Bowel Sounds, No Organomegaly, No Pulsatile Mass, Non Tender, Soft Back: Normal Inspection, No CVA Tenderness, No Vertebral Tenderness Extremity: Normal Capillary Refill, Normal Inspection, Normal Range of Motion, Non Tender, No Calf Tenderness, No Pedal Edema Neurologic/Psychiatric: Alert, No Motor/Sensory Deficits, support director II-XII Norm as Tested, Depressed Affect, Disoriented (subtle poor recall) Skin: Normal Color, Warm/Dry Lymphatic: No Adenopathy Results/Procedures Lab Patient resulted labs reviewed. FIM Transfers Therapy Code Descriptions/Definitions Functional [place] Measure: 0=Not Assessed/NA 4=Minimal Assistance 1=Total Assistance 5=Supervision or Setup 2=Maximal Assistance 6=Modified [place] 3=Moderate Assistance 7=Complete IndependenceSCALE: Activities may be completed with or without assistive devices. 4-Kcergcgfgc-bbcdnec completes the activity by him/herself with no assistance fr om a helper. 5-Set-up or Clean-up Assistance-helper sets up or cleans up; patient completes activity. [place] assists only prior to or following the activity. 4-Supervision or Touching Assistance-helper provides verbal cues and/or touching/steadying and/or contact guard assistance as patient completes activity. Assistance may be provided throughout the activity or intermittently. 3-Partial/Moderate Assistance-helper does LESS THAN HALF the effort. [place] lifts, holds or supports trunk or limbs, but provides less than half the effort. 2-Substantial/Maximal Assistance-helper does MORE THAN HALF the effort. [place] lifts or holds trunk or limbs and provides more than half the effort. 2-Hlvqbehpb-qojxgp does ALL the effort. Patient does none of the effort to complete the activity. Or, the assistance of 2 or more helpers is required for the patient to complete the activity. If activity was not attempted, code reason: 7-Patient Refused. 9-Not Applicable-not attempted and the patient did not perform the activity before the current illness, exacerbation or injury. 10-Not Attempted due to Environmental Limitations-(lack of equipment, weather restraints, etc.). 88-Not Attempted due to Medical Conditions or Safety Concerns. Roll Left to Right (QC): 3 Sit to Lying (QC): 3 Sit to Stand (QC): 3 Chair/Yck-fi-Fnyqp Xfer(QC): 3 Car Transfer (QC): 3 Gait Training Does the Patient Walk?: Yes Distance: 150' x 3 Walk 10 feet (QC): 2 Walk 50 ft with 2 Turns(QC): 2 Walk 150 ft (QC): 2 Walking 10ft/uneven surface-QC: 3 Gait Assistive Device: FWW Wheelchair Training Does the Pt Use a Wheelchair?: Yes Wheel 50 ft with 2 turns (QC): 1 Wheel 150 ft (QC): 9 Type of Wheelchair: Manual Stair Training #of Steps: 4 1 Step (curb) (QC): 3 4 Steps (QC): 3 12 Steps (QC): 88 Balance Picking up an Object (QC): 88 ADL-Treatment Eating (QC): 6 Oral Hygiene (QC): 4 Shower/Bathe Self (QC): 3 Upper Body Dressing (QC): 4 Lower Body Dressing (QC): 3 On/Off Footwear (QC): 2 Toileting Hygiene (QC): 4 Toilet Transfer (QC): 3 Assessment/Plan Assessment and Plan Assess & Plan/Chief Complaint Assessment: Myopathy Delirium CHF with volume overload requiring IV Lasix COPD Oxygen dependency New confusion with delirium as confirmed dx today Medical noncompliance Denial of severity of medical problems Former smoker Rheumatoid arthritis Chronic renal insufficiency Hyperglycemia awaiting hemoglobin A1c result Hypertension [id number]-[id number] Orthostasis with vertigo Plan: IV Lasix Inpatient rehabilitation protocol Strengthening Home meds Monitor closely Work on cognition Monitor labs O2 Nebs Delirium treatment (1) Myopathy (2) Memory loss (3) Denial about severity of illness (4) COPD with acute exacerbation Status: Resolved Resolution Date/Time: 10/14/19 @ 14:22 (5) Paroxysmal atrial fibrillation Status: Chronic (6) Orthostatic hypotension Status: Resolved Resolution Date/Time: 10/14/19 @ 14:22 (7) Atrial fibrillation with rapid ventricular response Status: Acute (8) Noncompliance with medication regimen Status: Chronic (9) Hypoxia Status: Chronic (10) Uncontrolled hypertension Status: Acute (11) Hyperglycemia Status: Acute (12) Delirium JEROME NEAL DO Oct 17, 2019 11:30
--- NOTE | 2019-10-17 11:44 | NUR ---
ADMISSION Patient was admitted to ARU 10/14/19 for CHF Myopathy. She was a patient at [facility] 10/06-10/10 then readmitted 10/11-10/14 until her transfer into ARU. Interviewed patient and her spouse, Michael Lee, this a.m. Patient resides at home with Michael, their daughter Lyly Lee is currently residing with them for a temporary period. DME: Patient had been using a 4WW with seat/brakes and [facility] [place] [facility]. They do not have a BSC but do have a handicap stool re height. They have suction cup grab bars in the walk-in shower. Patient would benefit from a shower chair and Mr. Lee understands this is a non-covered item that he can purchase anytime. Radiation Safety Officer did recommend that PT/OT be consulted for proper style, likely one with back and arms because of patient vertigo/dizziness. PCP: Dr. Terese Verde, [facility]. PHARMACY: [facility] or [facility] INSURED: Medicare, [employer] ADVANCED DIRECTIVE: Mr. Lee indicates none in place at this time, but that they would likely select their daughter Shahida Alvarez as agent. Patient/spouse updated about the purpose of the Weekly Team Conference and indicated understanding. Their goal is that patient would return home with spouse as before with support from their daughters Lorelei. CONTACTS: Shahida Alvarez, [place], [place] [phone] Lyly Lee, [place], [place] (With patient and spouse) [phone] Ravi Lee, Son [place], [place]
--- NOTE | 2019-10-17 12:41 | Speech Therapy Daily Note ---
Speech Daily Progress Note Subjective Date Seen by Provider: Oct 17, 2019 Time Seen by Provider: 00:30 Patient was resting in her bed with her present. Objective Patient completed a series of general information questions with 60% given 30% verbal cuing. Assessment Assessment Current Status: Fair Progress Treatment Plan Continue Plan of Care Speech Short Term Goals Short Term Goals Short Term Goals 1) The patient will complete memory tasks related to her daily needs at 90% or greater with minimal cues. 2) The patient will complete safety awareness tasks related to her daily needs at 90% or greater with minimal cues. 3) The patient will complete problem solving tasks related to her daily needs at 90% or greater with minimal cues. Speech Project Management Advisor Goals Project Management Advisor Goals Patient will improve cognitive-communication necessary for safety and daily living tasks with minimal assist. Speech-Plan Patient/Family Goals Patient/Family Goals: Patient plans on returning to her home where she lives with her . Treatment Plan Speech Therapy Treatment Plan: Continue Plan of Care Patient appeared more confused today. Treatment Duration: Oct 27, 2019 Frequency: 4 times per week Estimated Hrs Per Day: Other Rehab Potential: Fair Barriers to Learning: Patient has cognitive deficits, dementia Pt/Family Agrees to Plan: Yes Safety Risks/Education Teaching Recipient: Patient, Significant Other Teaching Methods: Demonstration, Discussion Response to Teaching: Verbalize Understanding, Return Demonstration Education Topics Provided: Safety within her room. Time Speech Therapy Time In: 10:00 Speech Therapy Time Out: 10:30 Total Billed Time: 30 Billed Treatment Time 1PATIENCE [address] Oct 17, 2019 12:41
--- NOTE | 2019-10-17 12:54 | Physical Therapy Daily Note ---
PT Daily Note-Current Subjective Patient in bed pre tx, agrees to PT reluctantly, wants to go home, has no complaints of pain. Appearance Patient in recliner post tx with nurse call phone, tray, chair alarm on. Mental Status Patient Orientation: Person, Confused Attachments: Oxygen Transfers SCALE: Activities may be completed with or without assistive devices. 3-Alcscycdvo-emvussr completes the activity by him/herself with no assistance from a helper. 5-Set-up or Clean-up Assistance-helper sets up or cleans up; patient completes activity. [place] assists only prior to or following the activity. 4-Supervision or Touching Assistance-helper provides verbal cues and/or touching/steadying and/or contact guard assistance as patient completes activity. Assistance may be provided throughout the activity or intermittently. 3-Partial/Moderate Assistance-helper does LESS THAN HALF the effort. [place] lifts, holds or supports trunk or limbs, but provides less than half the effort. 2-Substantial/Maximal Assistance-helper does MORE THAN HALF the effort. [place] lifts or holds trunk or limbs and provides more than half the effort. 8-Hkplccctu-drqrck does ALL the effort. Patient does none of the effort to complete the activity. Or, the assistance of 2 or more helpers is required for the patient to complete the activity. If activity was not attempted, code reason: 7-Patient Refused. 9-Not Applicable-not attempted and the patient did not perform the activity before the current illness, exacerbation or injury. 10-Not Attempted due to Environmental Limitations-(lack of equipment, weather restraints, etc.). 88-Not Attempted due to Medical Conditions or Safety Concerns. Roll Left & Right (QC): 3 Lying to Sitting/Side of Bed(Q: 3 Sit to Stand (QC): 3 Chair/Tzt-as-Qerxb Xfer(QC): 3 Min assist for sit to stand and transfers, patient is retropulsive and seems unaware that she is, needs help with balance and guiding walker during transfers, cues for positioning and safety but rarely listed or responds to it. Practiced transfers to both sides, patient doesn't respond to cues for safety, poor safety awareness, patient has difficulty leaning forward, very retropuslive, poor poor motivation. Weight Bearing Right Lower Extremity: Right Full Weight Bearing Left Lower Extremity: Left Full Weight Bearing Gait Training Distance: 20', 10' Walk 10 feet (QC): 3 Gait Assistive Device: FWW Min assist for balance, impulsive, poor safety awareness, unsteady, poor coordination. Wheelchair Training Does the Pt Use a Wheelchair?: Yes Wheel 50 ft with 2 turns (QC): 1 Wheel 150 ft (QC): 1 Type of Wheelchair: Manual Exercises NuStep Minutes: 15 NuStep Workload: 5 Treatments transfers, bed mobility, LE strengthening, WC mobility Assessment Current Status: Poor Progress Patient seems unaware of her impairments, poor safety awareness, patient presents with similar to anoxic brain injury. PT Short Term Goals Short Term Goals Time Frame: Oct 21, 2019 Roll Left & Right: 6 Sit to lyin Lying to sitting on side of be: 6 Sit to stand: 6 PT Counselor Camp Goals Fdc Goals PT Counselor Camp Goals Time Frame: Nov 04, 2019 Roll Left & Right (QC): 6 Sit to Lying (QC): 6 Lying-Sitting on Side/Bed(QC): 6 Sit to Stand (QC): 6 Chair/Xpd-vs-Runii Xfer(QC): 6 Toilet Transfer (QC): 6 Car Transfer (QC): 4 Does the Patient Walk: Yes Walk 10 feet (QC): 6 Walk 50ft with 2 Turns (QC): 6 Walk 150 ft (QC): 6 Walking 10ft on Uneven Surface: 6 1 Step (curb) (QC): 4 4 Steps (QC): 4 12 Steps (QC): 9 Picking up an Object (QC): 4 Does the Pt use WC or Scooter?: No Wheel 50 feet with 2 turns (QC: 9 Wheel 150 feet: 9 PT Plan Problem List Problem List: Activity Tolerance, Functional Strength, Safety, Balance, Gait, Transfer, Bed Mobility, ROM Treatment/Plan Treatment Plan: Continue Plan of Care Treatment Plan: Bed Mobility, Education, Functional Activity Rex, Functional Strength, Group Therapy, Gait, Safety, Therapeutic Exercise, Transfers Treatment Duration: Nov 04, 2019 Frequency: Modified Program (IRF) Estimated Hrs Per Day: 1.5 hours per day Patient and/or Family Agrees t: Yes Safety Risks/Education Patient Education: Gait Training, Transfer Techniques, Correct Positioning, W/C Management, Safety Issues Teaching Recipient: Patient Teaching Methods: Demonstration, Discussion Response to Teaching: Reinforcement Needed Time/GCodes Time In: 1100 Time Out: 1200 Total Billed Treatment Time: 60 Total Billed Treatment 1 visit GT 10' EX 15' FA 35' XIAO COLEY PT Oct 17, 2019 12:54
--- NOTE | 2019-10-17 14:25 | Physical Therapy Daily Note ---
PT Daily Note-Current Subjective Patient in bed pre tx, lethargic but does wake to participate, keeps her eyes closed most of the time, no complaints of pain. Appearance Patient in bed post tx with nurse call, phone, tray, bed alarm on, in the room. Mental Status Patient Orientation: Person, Confused, [place] Attachments: Oxygen Transfers SCALE: Activities may be completed with or without assistive devices. 8-Gxyufnylni-ardkkti completes the activity by him/herself with no assistance from a helper. 5-Set-up or Clean-up Assistance-helper sets up or cleans up; patient completes activity. [place] assists only prior to or following the activity. 4-Supervision or Touching Assistance-helper provides verbal cues and/or touching/steadying and/or contact guard assistance as patient completes activity. Assistance may be provided throughout the activity or intermittently. 3-Partial/Moderate Assistance-helper does LESS THAN HALF the effort. [place] lifts, holds or supports trunk or limbs, but provides less than half the effort. 2-Substantial/Maximal Assistance-helper does MORE THAN HALF the effort. [place] lifts or holds trunk or limbs and provides more than half the effort. 7-Sdrsayehh-scahak does ALL the effort. Patient does none of the effort to complete the activity. Or, the assistance of 2 or more helpers is required for the patient to complete the activity. If activity was not attempted, code reason: 7-Patient Refused. 9-Not Applicable-not attempted and the patient did not perform the activity before the current illness, exacerbation or injury. 10-Not Attempted due to Environmental Limitations-(lack of equipment, weather restraints, etc.). 88-Not Attempted due to Medical Conditions or Safety Concerns. Weight Bearing Right Lower Extremity: Right Full Weight Bearing Left Lower Extremity: Left Full Weight Bearing Exercises Supine Ex: Ankle pumps, Quad Set, Glut sets, Heel Slides, Short Arc Quads, Straight leg raise, Hip abd/add Supine Reps: 15 Treatments LE AROM Assessment Current Status: Poor Progress Patient participated in exercises but was impulsive and forgetful. PT Short Term Goals Short Term Goals Time Frame: Oct 21, 2019 Roll Left & Right: 6 Sit to lyin Lying to sitting on side of be: 6 Sit to stand: 6 PT Nursing Home Goals Nursing Home Goals PT Charge Manager Goals Time Frame: Nov 04, 2019 Roll Left & Right (QC): 6 Sit to Lying (QC): 6 Lying-Sitting on Side/Bed(QC): 6 Sit to Stand (QC): 6 Chair/Jao-zo-Nbtit Xfer(QC): 6 Toilet Transfer (QC): 6 Car Transfer (QC): 4 Does the Patient Walk: Yes Walk 10 feet (QC): 6 Walk 50ft with 2 Turns (QC): 6 Walk 150 ft (QC): 6 Walking 10ft on Uneven Surface: 6 1 Step (curb) (QC): 4 4 Steps (QC): 4 12 Steps (QC): 9 Picking up an Object (QC): 4 Does the Pt use WC or Scooter?: No Wheel 50 feet with 2 turns (QC: 9 Wheel 150 feet: 9 PT Plan Problem List Problem List: Activity Tolerance, Functional Strength, Safety, Balance, Gait, Transfer, Bed Mobility, ROM Treatment/Plan Treatment Plan: Continue Plan of Care Treatment Plan: Bed Mobility, Education, Functional Activity Rex, Functional Strength, Group Therapy, Gait, Safety, Therapeutic Exercise, Transfers Treatment Duration: Nov 04, 2019 Frequency: Modified Program (IRF) Estimated Hrs Per Day: 1.5 hours per day Patient and/or Family Agrees t: Yes Safety Risks/Education Patient Education: Correct Positioning, Safety Issues Teaching Recipient: Patient Teaching Methods: Demonstration, Discussion Response to Teaching: Reinforcement Needed Time/GCodes Time In: 1410 Time Out: 1425 Total Billed Treatment Time: 15 Total Billed Treatment 1 visit EX XIAO MOONEY PT Oct 17, 2019 14:25
--- NOTE | 2019-10-17 15:15 | Cardiology Progress Note ---
Cardiology SOAP Progress Note Subjective: Confused. Objective: I&O/Vital Signs 10/17/19 10/17/19 10/17/19 04:05 08:22 10:47 Temp 36.2 Pulse 92 Resp 18 B/P (MAP) 110/79 (89) Pulse Ox 99 98 O2 Delivery Nasal Cannula Nasal Cannula Nasal Cannula O2 Flow Rate 3.00 3.00 3.00 10/17/19 00:00 Intake Total 1000 ml Output Total 300 ml Balance 700 ml Weight (Pounds): 170 Weight (Ounces): 0 Weight (Calculated Kilograms): [id number] Respiratory: chest is bilaterally symmetric, lungs clear to auscultation Cardiovascular: irregularly irregular, S1 and S2 Gastrointestional: soft, audible bowel sounds Extremities: normal range of motion, non-tender, normal inspection, no lower extremity edema bilateral Neurologic/Psychiatric: alert, normal mood/affect, grossly intact Skin: normal color, warm/dry Results/Procedures: Labs Laboratory Tests 10/16/19 15:28: Glucometer 118H 10/16/19 20:08: Glucometer 178H 10/17/19 06:08: Glucometer 93 10/17/19 10:51: Glucometer 151H A/P: Assessment/Dx: Worsening neurological status, Intractable dizziness, COPD, Mild acute on chronic systolic/diastolic heart failure, Atrial fibrillation with controlled ventricular rate CAD, History of smoking Plan: Plan: Worsening neurological status, confusion. Disorientation. Defer to the primary team. Dizziness. Telemetry. Defer to the primary team. Leukocytosis. Sepsis needs to be ruled out. Defer to the primary team. COPD, defer treatment to Dr. Verde. Likely the cause of shortness of breath. Mild acute on chronic systolic/diastolic heart failure. BNP over 400 on admission. Currently BNP just over 400. Unlikely florid congestive heart failure. Can continue low-dose IV Lasix. Atrial fibrillation with controlled ventricular rate, continue Cardizem and oral anticoagulation. CAD, history of PCI and stents. No chest pain. Troponins over the last 4 days 2 have been negative. History of smoking Thank you for your consultation. Please call me if you have any questions. Edwina Bermudez MD, FACP, FACC, FSCAI, FHRS, CCDS Interventional Cardiology Cardiac Electrophysiology Vascular Medicine and Endovascular Interventions Focused Exam Lactate Level 10/15/19 12:30: Lactic Acid Level 1.20 Faby BERMUDEZ MD Oct 17, 2019 15:15
--- NOTE | 2019-10-17 17:05 | NUR ---
WEEKLY TEAM CONFERENCE SUMMARY Returned a second time post team meeting to review summary with patient and her spouse. They are in agreement to a continued stay with review on 10/25/19. Following patient progress closely, home vs SNF. Physician has discussed this possibility with Mr. Lee.
[2019-10-17 18:00] VITALS: BP 156/89
[2019-10-17] MEDS: ALPRAZolam 0.25 MG (XANAX) TAB PO PRN (19:48)
[2019-10-17] MEDS: MELATONIN 3 MG TABLET PO PRN (19:48)
--- NOTE | 2019-10-17 20:07 | NUR ---
The patient appears somewhat confused, however responds most of my questions correctly. Pt's is at the bedside and confirms the accuracy of the answers. Pt denies any pain states she has been in the hospital since Rg. Pt does not appear in any distress. BP 152/92, HR 95, O@ sat 98 3L NS. GCS 14. Pt's reports she has been restless most of the evening, this report was verified by day time RN during hand off. Pt assisted to the BSC, voiding without difficulty. Will give Xanax prn for anxiety as ordered by Dr. Verde. Tele sitter in placed, bed exit alarm on. Call light within reach.
[2019-10-18] MEDS: RT-ALBUTEROL/IPRATROPIUM 3 ML (DUONEB) VIAL INH SCH ×5 (02:32→18:17)
[2019-10-18 05:59] VITALS: BP 144/92
[2019-10-18] MEDS: predniSONE 20 MG TAB PO SCH (06:30)
[2019-10-18] MEDS: inSUlin ASPART (NovoLOG) 1 UNIT/0.01 ML (CHARGE PER UNIT) SC SCH ×4 (06:31→20:15)
--- NOTE | 2019-10-18 08:36 | Occupational Ther Daily Note ---
OT Current Status-Daily Note Subjective Pt sleeping in bed, difficult to wake. Daughter in recliner sleeping. Pt agrees to therapy after encouragement to wake. No c/o pain at this time. Mental Status/Objective Patient Orientation: Person Attachments: IV ADL-Treatment Pt declines shower. Pt has difficulty with staying awake throughout therapy. Pt required assist and set up to don/doff upper body clothing due to lethargy. Mod A for transfer due to lethargy. Pt sat up in chair to eat breakfast. Pt required assist for set up breakfast then uses utensils to eat. Pt then transferred to [facility] and assist needed to manipulate clothing. Nrsg in room with pt to assist with transfer back to bed after session. Call light/phone in reach. All needs met in room. Therapy Code Descriptions/Definitions Functional [place] Measure: 0=Not Assessed/NA 4=Minimal Assistance 1=Total Assistance 5=Supervision or Setup 2=Maximal Assistance 6=Modified [place] 3=Moderate Assistance 7=Complete IndependenceSCALE: Activities may be completed with or without assistive devices. 2-Wdxbjdnkzs-naomiyx completes the activity by him/herself with no assistance from a helper. 5-Set-up or Clean-up Assistance-helper sets up or cleans up; patient completes activity. [place] assists only prior to or following the activity. 4-Supervision or Touching Assistance-helper provides verbal cues and/or touching/steadying and/or contact guard assistance as patient completes activity. Assistance may be provided throughout the activity or intermittently. 3-Partial/Moderate Assistance-helper does LESS THAN HALF the effort. [place] lifts, holds or supports trunk or limbs, but provides less than half the effort. 2-Substantial/Maximal Assistance-helper does MORE THAN HALF the effort. [place] lifts or holds trunk or limbs and provides more than half the effort. 8-Gljfuoepw-brpbyx does ALL the effort. Patient does none of the effort to complete the activity. Or, the assistance of 2 or more helpers is required for the patient to complete the activity. If activity was not attempted, code reason: 7-Patient Refused. 9-Not Applicable-not attempted and the patient did not perform the activity before the current illness, exacerbation or injury. 10-Not Attempted due to Environmental Limitations-(lack of equipment, weather restraints, etc.). 88-Not Attempted due to Medical Conditions or Safety Concerns. Eating (QC): 5 Upper Body Dressing (QC): 3 Toilet Transfer (QC): 3 OT Rebrander Goals Rebrander Goals Time Frame: Oct 28, 2019 Eating (QC): 6 Oral Hygiene (QC): 6 Toileting Hygiene (QC): 6 Shower/Bathe Self (QC): 6 Upper Body Dressing (QC): 6 Lower Body Dressing (QC): 6 On/Off Footwear (QC): 6 Additional Goals: 1-Demonstrate ADL Tasks, 2-Verbalize Understanding, 3- ImproveStrength/Rex 1=Demonstrate adherence to instructed precautions during ADL tasks. 2=Patient will verbalize/demonstrate understanding of assistive devices/modifications for ADL. 3=Patient will improve strength/tolerance for activity to enable patient to perform ADL's. OT Education/Plan Problem List/Assessment Assessment: Decreased Activ Tolerance, Decreased Safety Aware, Impaired C oordination, Impaired Funct Balance, Impaired Self-Care Skills Discharge Recommendations Plan/Recommendations: Continue POC Treatment Plan/Plan of Care Patient would benefit from OT for education, treatment and training to promote independence in ADL's, mobility, safety and/or upper extremity function for ADL's. Plan of Care: ADL Retraining, Caregiver Training, Concurrent Therapy, Functional Mobility, Group Exercise/Act as Ind, UE Funct Exercise/Act Treatment Duration: Oct 28, 2019 Frequency: At least 5 of 7 days/Wk (IRF) Estimated Hrs Per Day: 1.5 hours per day Agreement: Yes Rehab Potential: Fair Time/GCodes Start Time: 08:00 Stop Time: 09:00 Total Time Billed (hr/min): 60 Billed Treatment Time 1 visit-ADL 4 (60 min) JENELLE RAMSEY Oct 18, 2019 08:35
[2019-10-18 09:36] VITALS: BP 117/78
[2019-10-18] MEDS: risperiDONE 0.25 MG (RisperDAL) TAB PO SCH ×2 (09:48→20:20)
[2019-10-18] MEDS: APIXABAN 5 MG (ELIQUIS) TABLET PO SCH ×2 (09:48→20:20)
[2019-10-18] MEDS: DILTIAZEM 240 MG (CARDIZEM CD) CAP PO SCH (09:48)
[2019-10-18] MEDS: POLYETHYLENE GLYCOL 17 GM (MIRALAX) PACK PO SCH ×3 (09:48→20:20)
[2019-10-18] MEDS: DOCUSATE SODIUM 100 MG (COLACE) CAP PO SCH ×2 (09:49→20:20)
[2019-10-18] MEDS: MONTELUKAST 10 MG (SINGULAIR) TAB PO SCH (09:49)
[2019-10-18] MEDS: CARVEDILOL 12.5 MG (COREG) TABLET PO SCH ×2 (09:49→20:21)
[2019-10-18] MEDS: SENNA W/DOCUSATE (SENOKOT S) TABLET PO SCH ×2 (09:49→20:20)
--- NOTE | 2019-10-18 11:11 | Physical Therapy Daily Note ---
PT Daily Note-Current Subjective Pt very difficulty to awaken, agreed for pt to participate in PT, after awakening pt agreed to participate but requiring encouragement at first. Pt states just doesn't know why she is so tired, "usually on the go go go". Pain Numeric Pain Scale: 0-No Pain Appearance Upon arrival, pt in chair at bedside, pt in bed with alarm activated, very difficult to arouse requiring physical maneuvering before becoming more alert. Pt requesting and assisted to restroom requiring min A for balance but able to pull pants and brief down and up. At end of session, pt sitting up in recliner with alarm activated, call light, phone and bedside table within reach. Mental Status Patient Orientation: Person, Time, Unresponsive, Mumbles, Listless Attachments: Oxygen (2.5 l) pt unresponsive and very listless at beginning of session, improved some with activity but eyes remained closed most of session and didn't speak until last 20 - 25 min of session. Transfers SCALE: Activities may be completed with or without assistive devices. 6-Klcfbuicyx-ajjvlsh completes the activity by him/herself with no assistance from a helper. 5-Set-up or Clean-up Assistance-helper sets up or cleans up; patient completes activity. [place] assists only prior to or following the activity. 4-Supervision or Touching Assistance-helper provides verbal cues and/or touching/steadying and/or contact guard assistance as patient completes activity. Assistance may be provided throughout the activity or intermittently. 3-Partial/Moderate Assistance-helper does LESS THAN HALF the effort. [place] lifts, holds or supports trunk or limbs, but provides less than half the effort. 2-Substantial/Maximal Assistance-helper does MORE THAN HALF the effort. [place] lifts or holds trunk or limbs and provides more than half the effort. 4-Arxoqcqkm-ccrsue does ALL the effort. Patient does none of the effort to complete the activity. Or, the assistance of 2 or more helpers is required for the patient to complete the activity. If activity was not attempted, code reason: 7-Patient Refused. 9-Not Applicable-not attempted and the patient did not perform the activity before the current illness, exacerbation or injury. 10-Not Attempted due to Environmental Limitations-(lack of equipment, weather restraints, etc.). 88-Not Attempted due to Medical Conditions or Safety Concerns. Roll Left & Right (QC): 3 Lying to Sitting/Side of Bed(Q: 3 Sit to Stand (QC): 3 Toilet Transfer (QC): 3 min A required for all bed mobility and initial sit to and from stand transfers due to listlessness, CGA and skilled verb inst for safety, walker placement and hand placement rest of therapy session. Weight Bearing Right Lower Extremity: Right Full Weight Bearing Left Lower Extremity: Left Full Weight Bearing Gait Training Does the Patient Walk?: Yes Distance: 150 x2 Walk 10 feet (QC): 3 Walk 50 ft with 2 Turns(QC): 3 Walk 150 ft (QC): 3 Gait Persons Needed: 1 (2nd person A used to follow with w/c and O2 tank) Gait Assistive Device: FWW fast unsafe pace, easily distracted, physical and verb inst and assist required to attempt to avoid furniture, martinez, door jams and objects. Skilled verb inst for body placement in walker as pt tends to walk with walker with outstretched arms Wheelchair Training Wheel 50 ft with 2 turns (QC): 2 (pt very groggy and not following instruction well) Type of Wheelchair: Manual Exercises NuStep Minutes: 15 (A to maintain alertness, keeping eyes open. pt with R side lean and min to CGA required to maintain upright sitting, safety belt on machine use to keep pt from sliding forward due to decreased alertness) NuStep Workload: 1 Treatments education, safety, bed mobility, toileting, transfers, w/c mobility for strength and to assist in increasing alertness before attempting gait for safety, gait, strength, balance, functional mobility, activity tolerance Assessment Difficulty arousing at beginning of session and maintaining alertness throughout session, somewhat more alert with activity but requiring constant stimulation. Fast unsafe pace and easily distracted during gait, occasional impulsiveness with decreased safety awareness. PT Short Term Goals Short Term Goals Time Frame: Oct 21, 2019 Roll Left & Right: 6 Sit to lyin Lying to sitting on side of be: 6 Sit to stand: 6 PT Bi Tester Goals Halfway Goals PT Bi Tester Goals Time Frame: Nov 04, 2019 Roll Left & Right (QC): 6 Sit to Lying (QC): 6 Lying-Sitting on Side/Bed(QC): 6 Sit to Stand (QC): 6 Chair/Fxu-dz-Jgilv Xfer(QC): 6 Toilet Transfer (QC): 6 Car Transfer (QC): 4 Does the Patient Walk: Yes Walk 10 feet (QC): 6 Walk 50ft with 2 Turns (QC): 6 Walk 150 ft (QC): 6 Walking 10ft on Uneven Surface: 6 1 Step (curb) (QC): 4 4 Steps (QC): 4 12 Steps (QC): 9 Picking up an Object (QC): 4 Does the Pt use WC or Scooter?: No Wheel 50 feet with 2 turns (QC: 9 Wheel 150 feet: 9 PT Plan Treatment/Plan Treatment Plan: Continue Plan of Care Treatment Plan: Bed Mobility, Education, Functional Activity Rex, Functional Strength, Group Therapy, Gait, Safety, Therapeutic Exercise, Transfers Treatment Duration: Nov 04, 2019 Frequency: Modified Program (IRF) Estimated Hrs Per Day: 1.5 hours per day Patient and/or Family Agrees t: Yes Safety Risks/Education Patient Education: Gait Training, Transfer Techniques, Correct Positioning, W/C Management, Safety Issues Teaching Recipient: Patient Teaching Methods: Demonstration, Discussion Response to Teaching: Unable to Return Demonstration, Return Demonstration, Reinforcement Needed Time/GCodes Time In: 1100 Time Out: 1200 Total Billed Treatment Time: 60 Total Billed Treatment 1 visit, EX x15 min, FA x20 min, GT x25 min KELLY LOYA PTA Oct 18, 2019 11:11
--- NOTE | 2019-10-18 11:58 | PM&R Progress Note ---
Subjective HPI/CC On Admission Date Seen by Provider: Oct 18, 2019 Time Seen by Provider: 12:00 Subjective/Events-last exam Delirium is a bit improved Lasix will be given as needed for volume overload Symbicort and Singulair were started 2 days ago Using IS Still asks to go home and I tell her to take one day at a time Pt ultimately will require skilled care if she can't be taken care of at home due to her confusion and delirium does not lift during hospital stay here Updated family in-depth yesterday with daughter on the phone with RN witnessing the entire conversation on speakerphone Family seems to be in denial about her issues also so will try to educate as best as possible Checked meds and labs Reviewed therapy notes Conferred with RN extensively Review of Systems General: Fatigue Pulmonary: Dyspnea 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: Confusion Focused Exam Lactate Level Objective Exam Vital Signs Vital Signs Date Time Temp Pulse Resp B/P (MAP) Pulse Ox O2 Delivery O2 Flow Rate FiO2 10/18/19 16:00 36.0 78 24 107/72 (84) 90 Nasal Cannula 3.00 10/16/19 08:54 32 Capillary Refill : Less Than 3 SecondsLess Than 3 Seconds General Appearance: WD/WN, Anxious, Chronically ill, Mild Distress, Other (more declined and richmond colored) HEENT: PERRL/EOMI, Normal ENT Inspection, Pharynx Normal Neck: Full Range of Motion, Normal Inspection, Non Tender, Supple, Carotid Bruit Respiratory: Chest Non Tender, Lungs Clear, No Accessory Muscle Use, No Respiratory Distress, Decreased Breath Sounds Cardiovascular: Regular Rate, Rhythm, No Edema, No Gallop, No JVD, No Murmur, Normal Peripheral Pulses Gastrointestinal: Normal Bowel Sounds, No Organomegaly, No Pulsatile Mass, Non Tender, Soft Back: Normal Inspection, No CVA Tenderness, No Vertebral Tenderness Extremity: Normal Capillary Refill, Normal Inspection, Normal Range of Motion, Non Tender, No Calf Tenderness, No Pedal Edema Neurologic/Psychiatric: Alert, No Motor/Sensory Deficits, counselor aide II-XII Norm as Tested, Depressed Affect, Disoriented (subtle poor recall) Skin: Normal Color, Warm/Dry Lymphatic: No Adenopathy Results/Procedures Lab Patient resulted labs reviewed. FIM Transfers Therapy Code Descriptions/Definitions Functional [place] Measure: 0=Not Assessed/NA 4=Minimal Assistance 1=Total Assistance 5=Supervision or Setup 2=Maximal Assistance 6=Modified [place] 3=Moderate Assistance 7=Complete IndependenceSCALE: Activities may be completed with or without assistive devices. 0-Aqhhucfieg-fwbwuue completes the activity by him/herself with no assistance from a helper. 5-Set-up or Clean-up Assistance-helper sets up or cleans up; patient completes activity. [place] assists only prior to or following the activity. 4-Supervision or Touching Assistance-helper provides verbal cues and/or touching/steadying and/or contact guard assistance as patient completes activity. Assistance may be provided throughout the activity or intermittently. 3-Partial/Moderate Assistance-helper does LESS THAN HALF the effort. [place] lifts, holds or supports trunk or limbs, but provides less than half the effort. 2-Substantial/Maximal Assistance-helper does MORE THAN HALF the effort. [place] lifts or holds trunk or limbs and provides more than half the effort. 7-Ezhcmpvou-zrptds does ALL the effort. Patient does none of the effort to complete the activity. Or, the assistance of 2 or more helpers is required for the patient to complete the activity. If activity was not attempted, code reason: 7-Patient Refused. 9-Not Applicable-not attempted and the patient did not perform the activity before the current illness, exacerbation or injury. 10-Not Attempted due to Environmental Limitations-(lack of equipment, weather restraints, etc.). 88-Not Attempted due to Medical Conditions or Safety Concerns. Roll Left to Right (QC): 3 Sit to Lying (QC): 3 Sit to Stand (QC): 3 Chair/Ljr-vw-Gdizq Xfer(QC): 3 Car Transfer (QC): 3 Gait Training Does the Patient Walk?: Yes Distance: 20', 10' Walk 10 feet (QC): 3 Walk 50 ft with 2 Turns(QC): 2 Walk 150 ft (QC): 2 Walking 10ft/uneven surface-QC: 3 Gait Assistive Device: FWW Wheelchair Training Does the Pt Use a Wheelchair?: Yes Wheel 50 ft with 2 turns (QC): 1 Wheel 150 ft (QC): 1 Type of Wheelchair: Manual Stair Training #of Steps: 4 1 Step (curb) (QC): 3 4 Steps (QC): 3 12 Steps (QC): 88 Balance Picking up an Object (QC): 88 ADL-Treatment Eating (QC): 5 Oral Hygiene (QC): 4 Shower/Bathe Self (QC): 3 Upper Body Dressing (QC): 3 Lower Body Dressing (QC): 3 On/Off Footwear (QC): 2 Toileting Hygiene (QC): 4 Toilet Transfer (QC): 3 Assessment/Plan Assessment and Plan Assess & Plan/Chief Complaint Assessment: Myopathy Delirium CHF with volume overload requiring IV Lasix COPD Oxygen dependency New confusion with delirium as confirmed dx today Medical noncompliance Denial of severity of medical problems Former smoker Rheumatoid arthritis Chronic renal insufficiency Hyperglycemia awaiting hemoglobin A1c result Hypertension ocw-ye-czxsuhu Orthostasis with vertigo Plan: IV Lasix prn Inpatient rehabilitation protocol Strengthening Home meds Monitor closely Work on cognition Monitor labs O2 Nebs Delirium treatment Check labs in am (1) Myopathy (2) Memory loss (3) Denial about severity of illness (4) COPD with acute exacerbation Status: Resolved Resolution Date/Time: 10/14/19 @ 14:22 (5) Paroxysmal atrial fibrillation Status: Chronic (6) Orthostatic hypotension Status: Resolved Resolution Date/Time: 10/14/19 @ 14:22 (7) Atrial fibrillation with rapid ventricular response Status: Acute (8) Noncompliance with medication regimen Status: Chronic (9) Hypoxia Status: Chronic (10) Uncontrolled hypertension Status: Acute (11) Hyperglycemia Status: Acute (12) Delirium JEROME NEAL DO Oct 18, 2019 11:58
--- NOTE | 2019-10-18 14:15 | Therapy Group Daily Note ---
Therapy Daily Group Note Patient Education Topic Exercises Exercises LE Seated Exercise, UE Exercise Session Ratio (pt:therapist): 4:1 Goal of Session: UE/LE Strengthing Goal Met for this Session: Yes Pt Benefit of Group: Contributions to Others, Increased Functional Strength, Improved Cognition, Recognition of Peers, Socialization Other/Notes Pt ambulated to therapy gym using FWW for OT/PT group. Group consisted of introductions (name, place living, longest kept resolution), socialization, UE/LE seated exercises, B UE activity working on critical thinking and problem solving. Pt introduced self with verbal cues appropriately and actively listened to peers. Pt was able to follow directions to complete UE/LE seated exercises. Pt was able to read and follow directions on B UE activity. Pt did required minimal cues to complete instructions. After therapy, pt sitting in recliner with call [facility]/phone in reach. All needs met in room. Start Time: 12:30 Stop Time: 13:45 Total Billed Treatment Time: 75 Total Billed Treatment 1-JENELLE MUÑIZ Oct 18, 2019 14:15
[2019-10-18 16:00] VITALS: BP 107/72
--- NOTE | 2019-10-18 16:28 | Cardiology Progress Note ---
Cardiology SOAP Progress Note Subjective: Patient is more lucid today, not confused. Objective: I&O/Vital Signs 10/18/19 10/18/19 10/18/19 10/18/19 05:59 06:38 08:54 09:36 Temp 35.6 Pulse 71 78 Resp 18 20 B/P (MAP) 144/92 (109) 117/78 (91) Pulse Ox 100 98 98 100 O2 Delivery Nasal Cannula Nasal Cannula Nasal Cannula Nasal Cannula O2 Flow Rate 3.00 3.00 3.00 3.00 10/18/19 10:34 Pulse Ox 98 O2 Delivery Nasal Cannula O2 Flow Rate 3.00 10/18/19 00:00 Intake Total 780 ml Output Total 200 ml Balance 580 ml Weight (Pounds): 170 Weight (Ounces): 0 Weight (Calculated Kilograms): [id number] Respiratory: chest is bilaterally symmetric, lungs clear to auscultation Cardiovascular: irregularly irregular, S1 and S2 Gastrointestional: soft, audible bowel sounds Extremities: normal range of motion, non-tender, normal inspection, no lower extremity edema bilateral Neurologic/Psychiatric: no motor/sensory deficits, alert, normal mood/affect, grossly intact Skin: normal color, warm/dry Results/Procedures: Labs Laboratory Tests 10/17/19 21:29: Glucometer 122H 10/18/19 05:41: Glucometer 90 10/18/19 10:33: Glucometer 168H 10/18/19 15:40: Glucometer 176H A/P: Assessment/Dx: Worsening neurological status, improved today. Intractable dizziness, COPD, Mild acute on chronic systolic/diastolic heart failure, Atrial fibrillation with controlled ventricular rate CAD, History of smoking Plan: Plan: Worsening neurological status, confusion. Disorientation. Improved today. Defer to the primary team. Dizziness. Telemetry. Defer to the primary team. Leukocytosis. Sepsis needs to be ruled out. Defer to the primary team. COPD, defer treatment to Dr. Verde. Likely the cause of shortness of breath. Mild acute on chronic systolic/diastolic heart failure. BNP over 400 on admission. Currently BNP just over 400. Unlikely florid congestive heart [place]. Can continue low-dose IV Lasix. Atrial fibrillation with controlled ventricular rate, continue Cardizem and oral anticoagulation. CAD, history of PCI and stents. No chest pain. All troponins negative. No further invasive cardiac management at this point in time. History of smoking Thank you for your consultation. Please call me if you have any questions. Edwina Bermudez MD, FACP, FACC, FSCAI, FHRS, CCDS Interventional Cardiology Cardiac Electrophysiology Vascular Medicine and Endovascular Interventions Faby BERMUDEZ MD Oct 18, 2019 16:27
[2019-10-18 18:00] VITALS: BP 107/72
[2019-10-19] MEDS: RT-ALBUTEROL/IPRATROPIUM 3 ML (DUONEB) VIAL INH SCH ×7 (00:47→22:12)
[2019-10-19] MEDS: inSUlin ASPART (NovoLOG) 1 UNIT/0.01 ML (CHARGE PER UNIT) SC SCH ×4 (06:06→21:00)
[2019-10-19] MEDS: predniSONE 20 MG TAB PO SCH (06:11)
[2019-10-19 06:15] LABS: BASOPHILS % (AUTO) 0 % (0-10); EOSINOPHILS # (AUTO) 0.2 10^3/uL (0.0-0.3); EOSINOPHILS % (AUTO) 1 % (0-10); HEMATOCRIT 41 % (35-52); HEMOGLOBIN 12.4 G/DL (11.5-16.0); LYMPHOCYTES # (AUTO) 1.3 X 10^3 (1.0-4.0); LYMPHOCYTES % (AUTO) 7 % (12-44); MEAN CORPUSCULAR HEMOGLOBIN 28 PG (25-34); MEAN CORPUSCULAR HGB CONC 30 G/DL (32-36); MEAN CORPUSCULAR VOLUME 94 FL (80-99); MEAN PLATELET VOLUME 10.5 FL (7.4-10.4); MONOCYTES # (AUTO) 1.2 X 10^3 (0.0-1.0); MONOCYTES % (AUTO) 7 % (0-12); NEUTROPHILS # (AUTO) 15.2 X 10^3 (1.8-7.8); NEUTROPHILS % (AUTO) 85 % (42-75); PLATELET COUNT 263 10^3/uL (130-400); RED CELL DISTRIBUTION WIDTH 15.6 % (10.0-14.5); WHITE BLOOD COUNT 17.8 10^3/uL (4.3-11.0)
[2019-10-19 07:03] LABS: ALANINE AMINOTRANSFERASE 48 U/L (0-55); ALBUMIN 3.4 GM/DL (3.2-4.5); ALKALINE PHOSPHATASE 105 U/L (40-136); BILIRUBIN,TOTAL 1.1 MG/DL (0.1-1.0); BUN/CREATININE RATIO 32; CALCIUM 8.7 MG/DL (8.5-10.1); CARBON DIOXIDE 28 MMOL/L (21-32); CHLORIDE 101 MMOL/L (98-107); CREATININE SERUM 0.79 MG/DL (0.60-1.30); GFR ESTIMATED > 60; GLUCOSE 110 MG/DL (70-105); POTASSIUM 3.7 MMOL/L (3.6-5.0); SODIUM 141 MMOL/L (135-145); TOTAL PROTEIN 5.6 GM/DL (6.4-8.2)
--- NOTE | 2019-10-19 08:13 | Physical Therapy Daily Note ---
PT Daily Note-Current Subjective 1st session: Pt agreeable to PT session. States she does not want to be using BSC and really wants to start going into the bathroom to use real toilet. States her daughter just left and she wants to call her to take her home, discussed need for being in rehab unit until she gets stronger, pt voicing understanding but still does not agree. 2nd session: Pt agreeable to PT but states "I would rather just stay in bed, but I'll do whatever you say I have to". Pain Numeric Pain Scale: 0-No Pain Appearance 1st session: Upon arrival, pt sitting on BSC having BM with nursing present. At end of session, pt sitting up in recliner with alarm activated, call light, phone and bedside table within reach. 2nd session: Upon arrival, pt asleep in bed with present. At end of session, pt in bed, alarm activated, call light, phone and bedside table within reach. Mental Status Patient Orientation: Person, Place, Time, Situation Attachments: Saline Lock, Oxygen (2 L/NC) Transfers SCALE: Activities may be completed with or without assistive devices. 6-Irvhfbavsm-xegqocx completes the activity by him/herself with no assistance from a helper. 5-Set-up or Clean-up Assistance-helper sets up or cleans up; patient completes activity. [place] assists only prior to or following the activity. 4-Supervision or Touching Assistance-helper provides verbal cues and/or touching/steadying and/or contact guard assistance as patient completes activity. Assistance may be provided throughout the activity or intermittently. 3-Partial/Moderate Assistance-helper does LESS THAN HALF the effort. [place]us lifts, holds or supports trunk or limbs, but provides less than half the effort. 2-Substantial/Maximal Assistance-helper does MORE THAN HALF the effort. [place] lifts or holds trunk or limbs and provides more than half the effort. 2-Uqtvodtal-dnyenl does ALL the effort. Patient does none of the effort to complete the activity. Or, the assistance of 2 or more helpers is required for the patient to complete the activity. If activity was not attempted, code reason: 7-Patient Refused. 9-Not Applicable-not attempted and the patient did not perform the activity before the current illness, exacerbation or injury. 10-Not Attempted due to Environmental Limitations-(lack of equipment, weather restraints, etc.). 88-Not Attempted due to Medical Conditions or Safety Concerns. Roll Left & Right (QC): 4 Sit to Lying (QC): 4 Lying to Sitting/Side of Bed(Q: 4 Sit to Stand (QC): 4 Chair/Vjk-ow-Tlkyl Xfer(QC): 4 Toilet Transfer (QC): 4 decreased safety awareness, occasional misjudgment on sitting, impulsive to stand, R side lean Weight Bearing Right Lower Extremity: Right Full Weight Bearing Left Lower Extremity: Left Full Weight Bearing Gait Training Does the Patient Walk?: Yes Distance: 200 x2 Walk 10 feet (QC): 3 Walk 50 ft with 2 Turns(QC): 3 Walk 150 ft (QC): 3 Gait Persons Needed: 1 Gait Assistive Device: FWW 1st session: with FWW: noted improved gait quality compared to yesterday and improvement in following instruction to avoid objects. Pt continues with path deviation, R trunk lean, decreased step length and height and unsteadiness. Pt insistent upon trying to walk without walker, attempted this x25 ft x2 with visual feedback using mirror in // bars and pt requiring DIRECTOR OF CORPORATE COMMUNICATIONS to mod A, R side trunk lean much more prevalent and decreased step length and height, shuffling at times. 2nd session: Gait with FWW 100 ft x2, decreased gait quality, increased R side trunk lean and shuffling, decreased safety and object awareness, increased impulsiveness, decreased ability to follow instruction. Exercises NuStep Minutes: 8 NuStep Workload: 5 (very tired, increased R side lean in seat requiring tactile cuing, seat belt and constant inst for posture) Treatments 1st session: education, safety, bed mob, transfers, toileting and jen care, gait, balance, strength, activity tolerance, functional mobility. 2nd session: education, safety, bed mob, transfers, gait, balance, strength, activity tolerance, function mobility Assessment Pt continues with R side lean, decreased safety awareness and misjudgment during transfers, impulsive, decreased ability to follow instruction and occasional confusion. Noted all sx's increase with increased fatigue. PT Short Term Goals Short Term Goals Time Frame: Oct 21, 2019 Roll Left & Right: 6 Sit to lyin Lying to sitting on side of be: 6 Sit to stand: 6 PT District Director Goals District Director Goals PT Care Home Goals Time Frame: Nov 04, 2019 Roll Left & Right (QC): 6 Sit to Lying (QC): 6 Lying-Sitting on Side/Bed(QC): 6 Sit to Stand (QC): 6 Chair/Nkt-ck-Ilqor Xfer(QC): 6 Toilet Transfer (QC): 6 Car Transfer (QC): 4 Does the Patient Walk: Yes Walk 10 feet (QC): 6 Walk 50ft with 2 Turns (QC): 6 Walk 150 ft (QC): 6 Walking 10ft on Uneven Surface: 6 1 Step (curb) (QC): 4 4 Steps (QC): 4 12 Steps (QC): 9 Picking up an Object (QC): 4 Does the Pt use WC or Scooter?: No Wheel 50 feet with 2 turns (QC: 9 Wheel 150 feet: 9 PT Plan Treatment/Plan Treatment Plan: Continue Plan of Care Treatment Plan: Bed Mobility, Education, Functional Activity Rex, Functional Strength, Group Therapy, Gait, Safety, Therapeutic Exercise, Transfers Treatment Duration: Nov 04, 2019 Frequency: Modified Program (IRF) Estimated Hrs Per Day: 1.5 hours per day Patient and/or Family Agrees t: Yes Safety Risks/Education Patient Education: Gait Training, Transfer Techniques, Correct Positioning, Safety Issues Teaching Recipient: Patient Teaching Methods: Demonstration, Discussion Response to Teaching: Verbalize Understanding, Return Demonstration, Reinforcement Needed Time/GCodes Time In: 800 (2nd session: 1306) Time Out: 900 (2nd session: 1333) Total Billed Treatment Time: 60 (2nd session: 27) Total Billed Treatment 1st session: 1 visit, GT x30 min, FA x30 min. 2nd session: 1 visit, EX x10 min, GT x17 min KELLY LOYA PTA Oct 19, 2019 08:13
[2019-10-19] MEDS: APIXABAN 5 MG (ELIQUIS) TABLET PO SCH ×2 (09:10→20:11)
[2019-10-19] MEDS: CARVEDILOL 12.5 MG (COREG) TABLET PO SCH ×2 (09:10→20:09)
[2019-10-19] MEDS: DILTIAZEM 240 MG (CARDIZEM CD) CAP PO SCH (09:10)
[2019-10-19] MEDS: MONTELUKAST 10 MG (SINGULAIR) TAB PO SCH (09:11)
[2019-10-19] MEDS: SENNA W/DOCUSATE (SENOKOT S) TABLET PO SCH ×2 (09:11→20:11)
[2019-10-19] MEDS: risperiDONE 0.25 MG (RisperDAL) TAB PO SCH ×2 (09:11→20:11)
[2019-10-19] MEDS: DOCUSATE SODIUM 100 MG (COLACE) CAP PO SCH ×2 (09:12→20:11)
[2019-10-19] MEDS: POLYETHYLENE GLYCOL 17 GM (MIRALAX) PACK PO SCH ×2 (09:13→20:11)
--- NOTE | 2019-10-19 11:02 | PM&R Progress Note ---
Subjective HPI/CC On Admission Date Seen by Provider: Oct 19, 2019 Time Seen by Provider: 10:30 Subjective/Events-last exam Telesitter maintained O2 tubing was around her neck earlier last night She is leaning to the right Leaving the heplock out since nothing IV is maintained right now Improved a bit Checked meds and labs Reviewed therapy notes Conferred with RN extensively Review of Systems General: Fatigue Pulmonary: Dyspnea 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: Confusion Objective Exam Vital Signs Vital Signs Date Time Temp Pulse Resp B/P (MAP) Pulse Ox O2 Delivery O2 Flow Rate FiO2 10/19/19 16:35 36.2 72 20 119/72 (88) 99 Nasal Cannula 3.00 10/19/19 15:06 32 Capillary Refill : Less Than 3 SecondsLess Than 3 Seconds General Appearance: WD/WN, Anxious, Chronically ill, Mild Distress, Other (more declined and richmond colored) HEENT: PERRL/EOMI, Normal ENT Inspection, Pharynx Normal Neck: Full Range of Motion, Normal Inspection, Non Tender, Supple, Carotid Bruit Respiratory: Chest Non Tender, Lungs Clear, No Accessory Muscle Use, No Respiratory Distress, Decreased Breath Sounds Cardiovascular: Regular Rate, Rhythm, No Edema, No Gallop, No JVD, No Murmur, Normal Peripheral Pulses Gastrointestinal: Normal Bowel Sounds, No Organomegaly, No Pulsatile Mass, Non Tender, Soft Back: Normal Inspection, No CVA Tenderness, No Vertebral Tenderness Extremity: Normal Capillary Refill, Normal Inspection, Normal Range of Motion, Non Tender, No Calf Tenderness, No Pedal Edema Neurologic/Psychiatric: Alert, No Motor/Sensory Deficits, 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 FIM Transfers Therapy Code Descriptions/Definitions Functional [place] Measure: 0=Not Assessed/NA 4=Minimal Assistance 1=Total Assistance 5=Supervision or Setup 2=Maximal Assistance 6=Modified [place] 3=Moderate Assistance 7=Complete IndependenceSCALE: Activities may be completed with or without assistive devices. 8-Xazkfknpzi-dtcffzq completes the activity by him/herself with no assistance from a helper. 5-Set-up or Clean-up Assistance-helper sets up or cleans up; patient completes activity. [place] assists only prior to or following the activity. 4-Supervision or Touching Assistance-helper provides verbal cues and/or touching/steadying and/or contact guard assistance as patient completes activity. Assistance may be provided throughout the activity or intermittently. 3-Partial/Moderate Assistance-helper does LESS THAN HALF the effort. [place] lifts, holds or supports trunk or limbs, but provides less than half the effort. 2-Substantial/Maximal Assistance-helper does MORE THAN HALF the effort. [place] lifts or holds trunk or limbs and provides more than half the effort. 1-Mfquajxol-cjhnge does ALL the effort. Patient does none of the effort to complete the activity. Or, the assistance of 2 or more helpers is required for the patient to complete the activity. If activity was not attempted, code reason: 7-Patient Refused. 9-Not Applicable-not attempted and the patient did not perform the activity before the current illness, exacerbation or injury. 10-Not Attempted due to Environmental Limitations-(lack of equipment, weather restraints, etc.). 88-Not Attempted due to Medical Conditions or Safety Concerns. Roll Left to Right (QC): 3 Sit to Lying (QC): 3 Sit to Stand (QC): 3 Chair/Qia-lx-Zxkcf Xfer(QC): 3 Car Transfer (QC): 3 Gait Training Does the Patient Walk?: Yes Distance: 150 x2 Walk 10 feet (QC): 3 Walk 50 ft with 2 Turns(QC): 3 Walk 150 ft (QC): 3 Walking 10ft/uneven surface-QC: 3 Gait Persons Needed: 1 (2nd person A used to follow with w/c and O2 tank) Gait Assistive Device: FWW Wheelchair Training Does the Pt Use a Wheelchair?: Yes Wheel 50 ft with 2 turns (QC): 2 (pt very groggy and not following instruction well) Wheel 150 ft (QC): 1 Type of Wheelchair: Manual Stair Training #of Steps: 4 1 Step (curb) (QC): 3 4 Steps (QC): 3 12 Steps (QC): 88 Balance Picking up an Object (QC): 88 ADL-Treatment Eating (QC): 5 Oral Hygiene (QC): 4 Shower/Bathe Self (QC): 3 Upper Body Dressing (QC): 3 Lower Body Dressing (QC): 3 On/Off Footwear (QC): 2 Toileting Hygiene (QC): 4 Toilet Transfer (QC): 3 Assessment/Plan Assessment and Plan Assess & Plan/Chief Complaint Assessment: Myopathy Delirium CHF with volume overload requiring IV Lasix COPD Oxygen dependency New confusion with delirium as confirmed dx today Medical noncompliance Denial of severity of medical problems Former smoker Rheumatoid arthritis Chronic renal insufficiency Hyperglycemia awaiting hemoglobin A1c result Hypertension mat-ko-wgtqpii Orthostasis with vertigo Plan: IV Lasix prn Inpatient rehabilitation protocol Strengthening Home meds Monitor closely Work on cognition Monitor labs O2 Nebs Delirium treatment (1) Myopathy (2) Memory loss (3) Denial about severity of illness (4) COPD with acute exacerbation Status: Resolved Resolution Date/Time: 10/14/19 @ 14:22 (5) Paroxysmal atrial fibrillation Status: Chronic (6) Orthostatic hypotension Status: Resolved Resolution Date/Time: 10/14/19 @ 14:22 (7) Atrial fibrillation with rapid ventricular response Status: Acute (8) Noncompliance with medication regimen Status: Chronic (9) Hypoxia Status: Chronic (10) Uncontrolled hypertension Status: Acute (11) Hyperglycemia Status: Acute (12) Delirium JEROME NEAL DO Oct 19, 2019 11:02
--- NOTE | 2019-10-19 12:41 | Speech Therapy Daily Note ---
Speech Daily Progress Note Subjective Date Seen by Provider: Oct 19, 2019 Time Seen by Provider: 00:30 Patient was resting in her recliner following her PT session this morning. Her came in during our session. Objective Patient completed a series of problem tasks with scenario cards at 70% with 25% cues. Assessment Assessment Current Status: Good Progress Treatment Plan Continue Plan of Care Speech Short Term Goals Short Term Goals Short Term Goals 1) The patient will complete memory tasks related to her daily needs at 90% or greater with minimal cues. 2) The patient will complete safety awareness tasks related to her daily needs at 90% or greater with minimal cues. 3) The patient will complete problem solving tasks related to her daily needs at 90% or greater with minimal cues. Speech Manager Ent Goals Manager Ent Goals Patient will improve cognitive-communication necessary for safety and daily living tasks with minimal assist. Speech-Plan Patient/Family Goals Patient/Family Goals: Patient plans on returning to her home where she lives with her . Treatment Plan Speech Therapy Treatment Plan: Continue Plan of Care Patient was much more alert and oriented today. Treatment Duration: Oct 27, 2019 Frequency: 4 times per week Estimated Hrs Per Day: Other Rehab Potential: Fair Barriers to Learning: Patient's cognitive deficits Pt/Family Agrees to Plan: Yes Safety Risks/Education Teaching Recipient: Patient, Significant Other Teaching Methods: Demonstration, Discussion Response to Teaching: Verbalize Understanding, Return Demonstration Education Topics Provided: Continued safety within her room and communication of wants/needs Time Speech Therapy Time In: 09:00 Speech Therapy Time Out: 09:30 Total Billed Time: 30 Billed Treatment Time 1PATIENCE [facility] Oct 19, 2019 12:41
--- NOTE | 2019-10-19 13:26 | Occupational Ther Daily Note ---
OT Current Status-Daily Note Subjective Pt sleeping in recliner. Pt does agree to therapy, but requires encouragement to participate in therapy. Pt states she just needs to go home, she just needs to go to bed. SAN attempts to educate pt on the need to get stronger and better balance for safety. Mental Status/Objective Patient Orientation: Person, Place, Time, Situation ADL-Treatment Pt agrees to shower. Pt is unsteady with transfers, static/dynamic standing. Pt is impulsive and attempts to sit before getting fully turned to sit in chair safely, verbal/physical cues needed. Pt transferred to w/c with CGA due to LOB. Pt transferred to toilet using grabbars and w/c, CGA. CGA to manipulate clothing for toileting and cleansed self sitting on toilet. CGA to transfer into shower using grabbars and FWW. SBA while pt completed shower in sitting then CGA in standing while pt cleanse buttocks. Mod A for lower body dress ing,pt kept closing eyes during task stated that she was just tired. Pt takes increased time to complete oral care by self. Pt ambulated around [facility] with multiple recovery breaks. After session, pt lying in bed with call light/phone in reach. Safety measures in place. All needs met in room. Therapy Code Descriptions/Definitions Functional [place] Measure: 0=Not Assessed/NA 4=Minimal Assistance 1=Total Assistance 5=Supervision or Setup 2=Maximal Assistance 6=Modified [place] 3=Moderate Assistance 7=Complete IndependenceSCALE: Activities may be completed with or without assistive devices. 1-Muuiqqzlnl-aftfpyv completes the activity by him/herself with no assistance from a helper. 5-Set-up or Clean-up Assistance-helper sets up or cleans up; patient completes activity. [place] assists only prior to or following the activity. 4-Supervision or Touching Assistance-helper provides verbal cues and/or touching/steadying and/or contact guard assistance as patient completes activity. Assistance may be provided throughout the activity or intermittently. 3-Partial/Moderate Assistance-helper does LESS THAN HALF the effort. [place] lifts, holds or supports trunk or limbs, but provides less than half the effort. 2-Substantial/Maximal Assistance-helper does MORE THAN HALF the effort. [place] lifts or holds trunk or limbs and provides more than half the effort. 5-Bhewheduy-znleur does ALL the effort. Patient does none of the effort to complete the activity. Or, the assistance of 2 or more helpers is required for the patient to complete the activity. If activity was not attempted, code reason: 7-Patient Refused. 9-Not Applicable-not attempted and the patient did not perform the activity before the current illness, exacerbation or injury. 10-Not Attempted due to Environmental Limitations-(lack of equipment, weather restraints, etc.). 88-Not Attempted due to Medical Conditions or Safety Concerns. Oral Hygiene (QC): 6 Shower/Bathe Self (QC): 4 Upper Body Dressing (QC): 5 Lower Body Dressing (QC): 3 On/Off Footwear: 2 Toileting Hygiene (QC): 4 Toilet Transfer (QC): 4 OT Jail Goals Jail Goals Time Frame: Oct 28, 2019 Eating (QC): 6 Oral Hygiene (QC): 6 Toileting Hygiene (QC): 6 Shower/Bathe Self (QC): 6 Upper Body Dressing (QC): 6 Lower Body Dressing (QC): 6 On/Off Footwear (QC): 6 Additional Goals: 1-Demonstrate ADL Tasks, 2-Verbalize Understanding, 3- ImproveStrength/Rex 1=Demonstrate adherence to instructed precautions during ADL tasks. 2=Patient will verbalize/demonstrate understanding of assistive devices/modifications for ADL. 3=Patient will improve strength/tolerance for activity to enable patient to perform ADL's. OT Education/Plan Problem List/Assessment Assessment: Decreased Activ Tolerance, Decreased Safety Aware, Impaired Cognition, Impaired Coordination, Impaired Funct Balance, Impaired Self-Care Skills Discharge Recommendations Plan/Recommendations: Continue POC Treatment Plan/Plan of Care Patient would benefit from OT for education, treatment and training to promote independence in ADL's, mobility, safety and/or upper extremity function for ADL's. Plan of Care: ADL Retraining, Caregiver Training, Concurrent Therapy, Functional Mobility, Group Exercise/Act as Ind, UE Funct Exercise/Act Treatment Duration: Oct 28, 2019 Frequency: At least 5 of 7 days/Wk (IRF) Estimated Hrs Per Day: 1.5 hours per day Agreement: Yes Rehab Potential: Fair Time/GCodes Start Time: 11:00 Stop Time: 12:15 Total Time Billed (hr/min): 75 Billed Treatment Time 1 visit-ADL 4 (65 min) EX 1 (10 min) JENELLE RAMSEY Oct 19, 2019 13:26
[2019-10-19 15:06] VITALS: BP 107/72
--- NOTE | 2019-10-19 16:32 | Cardiology Progress Note ---
Cardiology SOAP Progress Note Subjective: No cardiac complaints. Complains of fatigue. Objective: I&O/Vital Signs 10/19/19 10/19/19 10/19/19 10/19/19 06:01 06:21 08:41 10:07 Temp 36.2 Pulse 76 Resp 18 B/P (MAP) Pulse Ox 93 99 99 O2 Delivery Nasal Cannula Nasal Cannula Nasal Cannula Nasal Cannula O2 Flow Rate 2.00 2.00 3.00 2.00 10/19/19 10/19/19 13:35 15:06 Temp 36.2 Pulse 76 Pulse Ox 100 97 O2 Delivery Nasal Cannula O2 Flow Rate 2.00 FiO2 32 10/19/19 00:00 Intake Total 1075 ml Output Total 1000 ml Balance 75 ml Weight (Pounds): 170 Weight (Ounces): 0 Weight (Calculated Kilograms): [id number] Respiratory: chest is bilaterally symmetric, lungs clear to auscultation Cardiovascular: irregularly irregular, S1 and S2 Gastrointestional: soft, audible bowel sounds Extremities: normal range of motion, non-tender, normal inspection, no lower extremity edema bilateral Neurologic/Psychiatric: no motor/sensory deficits, alert, normal mood/affect, grossly intact Skin: normal color, warm/dry Results/Procedures: Labs Laboratory Tests 10/18/19 20:04: Glucometer 157H 10/19/19 05:58: Glucometer 107 10/19/19 06:07: White Blood Count 17.8H, Red Blood Count 4.39, Hemoglobin 12.4, Hematocrit 41, Mean Corpuscular Volume 94, Mean Corpuscular Hemoglobin 28, Mean Corpuscular Hemoglobin Concent 30L, Red Cell Distribution Width 15.6H, Platelet Count 263, Mean Platelet Volume 10.5H, Neutrophils (%) (Auto) 85H, Lymphocytes (%) (Auto) 7L, Monocytes (%) (Auto) 7, Eosinophils (%) (Auto) 1, Basophils (%) (Auto) 0, Neutrophils # (Auto) 15.2H, Lymphocytes # (Auto) 1.3, Monocytes # (Auto) 1.2H, Eosinophils # (Auto) 0.2, Basophils # (Auto) 0.0, Sodium Level 141, Potassium Level 3.7, Chloride Level 101, Carbon Dioxide Level 28, Anion Gap 12, Blood Urea Nitrogen 25H, Creatinine 0.79, Estimat Glomerular Filtration Rate > 60, BUN/Creatinine Ratio 32, Glucose Level 110H, Calcium Level 8.7, Corrected Calcium 9.2, Total Bilirubin 1.1H, Aspartate Amino Transf (AST/SGOT) 25, Alanine Aminotransferase (ALT/SGPT) 48, Alkaline Phosphatase 105, Total Protein 5.6L, Albumin 3.4 10/19/19 10:59: Glucometer 161H 10/19/19 15:19: Glucometer 153H A/P: Assessment/Dx: Admitted for Intractable dizziness, resolved COPD, Mild acute on chronic systolic/diastolic heart failure, Atrial fibrillation with controlled ventricular rate CAD, History of smoking Plan: Plan: Improved neurological status. Dizziness. Telemetry. Defer to the primary team. Leukocytosis. Sepsis needs to be ruled out. Defer to the primary team. COPD, defer treatment to Dr. Verde. Likely the cause of shortness of breath. Mild acute on chronic systolic/diastolic heart failure. BNP over 400 on admission. Currently BNP just over 400. Unlikely florid congestive heart failure. Can continue low-dose IV Lasix. Atrial fibrillation with controlled ventricular rate, continue Cardizem and oral anticoagulation. CAD, history of PCI and stents. No chest pain. All troponins negative. No further invasive cardiac management at this point in time. History of smoking Thank you for your consultation. Please call me if you have any questions. Edwina Bermudez MD, FACP, FACC, FSCAI, FHRS, CCDS Interventional Cardiology Cardiac Electrophysiology Vascular Medicine and Endovascular Interventions Faby BERMUDEZ MD Oct 19, 2019 16:32
[2019-10-19 16:35] VITALS: BP 119/72
[2019-10-19] MEDS: ALPRAZolam 0.25 MG (XANAX) TAB PO PRN (20:11)
[2019-10-19] MEDS: RT-ADVAIR HFA 115/21 MCG PER PUFF IH PRN (22:12)
[2019-10-20] MEDS: RT-ALBUTEROL/IPRATROPIUM 3 ML (DUONEB) VIAL INH SCH ×4 (02:41→22:41)
[2019-10-20 05:44] VITALS: BP 140/86
[2019-10-20] MEDS: inSUlin ASPART (NovoLOG) 1 UNIT/0.01 ML (CHARGE PER UNIT) SC SCH ×4 (06:11→20:48)
[2019-10-20] MEDS: predniSONE 20 MG TAB PO SCH (06:33)
[2019-10-20] MEDS: SCOPOLAMINE 1.5 MG (TRANSDERM-SCOP) PATCH TOP SCH (06:33)
[2019-10-20] MEDS: PATCH REMOVAL TP SCH (06:36)
[2019-10-20] MEDS: risperiDONE 0.25 MG (RisperDAL) TAB PO SCH ×2 (08:53→21:00)
[2019-10-20] MEDS: CARVEDILOL 12.5 MG (COREG) TABLET PO SCH ×2 (08:53→21:00)
[2019-10-20] MEDS: DILTIAZEM 240 MG (CARDIZEM CD) CAP PO SCH (08:53)
[2019-10-20] MEDS: MONTELUKAST 10 MG (SINGULAIR) TAB PO SCH (08:53)
[2019-10-20] MEDS: APIXABAN 5 MG (ELIQUIS) TABLET PO SCH ×2 (08:53→21:00)
[2019-10-20] MEDS: DOCUSATE SODIUM 100 MG (COLACE) CAP PO SCH ×2 (08:54→22:01)
[2019-10-20] MEDS: SENNA W/DOCUSATE (SENOKOT S) TABLET PO SCH ×2 (08:54→22:01)
[2019-10-20] MEDS: POLYETHYLENE GLYCOL 17 GM (MIRALAX) PACK PO SCH ×2 (08:54→22:01)
[2019-10-20 08:57] VITALS: BP 124/75
--- NOTE | 2019-10-20 09:21 | Physical Therapy Daily Note ---
PT Daily Note-Current Subjective Pt. in bed asleep, lights out, daughter in recliner asleep . Pt. very difficult to awaken and states she only wants to sleep. Pt. shares that she expects to go home at [place] and possibly have more help for herself and her . Pain Numeric Pain Scale: 4 Location: Right Location Body Site: Hand (ingers) Pain Description: Ache Comment: pt. c/o RA stiffness and pain in hands and fingers Mental Status Patient Orientation: Person Attachments: Oxygen (2.5L) pt. keeps eyes closed even in stance and drifts at times in subject matter etc. Pt. very distractible and difficulty staying on task Transfers SCALE: Activities may be completed with or without assistive devices. 0-Ajcbvttczv-ayrgemk completes the activity by him/herself with no assistance from a helper. 5-Set-up or Clean-up Assistance-helper sets up or cleans up; patient completes activity. [place] assists only prior to or following the activity. 4-Supervision or Touching Assistance-helper provides verbal cues and/or touching/steadying and/or contact guard assistance as patient completes activity. Assistance may be provided throughout the activity or intermittently. 3-Partial/Moderate Assistance-helper does LESS THAN HALF the effort. [place] lifts, holds or supports trunk or limbs, but provides less than half the effort. 2-Substantial/Maximal Assistance-helper does MORE THAN HALF the effort. [place] lifts or holds trunk or limbs and provides more than half the effort. 3-Cguesmqzw-ikkgfl does ALL the effort. Patient does none of the effort to complete the activity. Or, the assistance of 2 or more helpers is required for the patient to complete the activity. If activity was not attempted, code reason: 7-Patient Refused. 9-Not Applicable-not attempted and the patient did not perform the activity before the current illness, exacerbation or injury. 10-Not Attempted due to Environmental Limitations-(lack of equipment, weather restraints, etc.). 88-Not Attempted due to Medical Conditions or Safety Concerns. Roll Left & Right (QC): 5 Sit to Lying (QC): 4 Lying to Sitting/Side of Bed(Q: 5 Sit to Stand (QC): 4 Chair/Ojd-no-Ogkkt Xfer(QC): 4 Toilet Transfer (QC): 4 pt. initially required assist of min to mod to come to sitting from sidelying. 2nd attempt on firmer surface in gym was improved and CGA to SBA. pt. so very unsafe in TRFs and gait this date more w/c training was done and dominic w/c to bed or w/c to chair and back as this may be a safer mode of transport for pt. pt. contd at risk even during these TRFs and required min assist Weight Bearing Right Lower Extremity: Right Full Weight Bearing Left Lower Extremity: Left Full Weight Bearing Gait Training Does the Patient Walk?: Yes Walk 10 feet (QC): 3 Walk 50 ft with 2 Turns(QC): 3 Walk 150 ft (QC): 3 Gait Persons Needed: 1 Gait Assistive Device: FWW back up with w/c was needed as pt. leaned heavy left at times and was distracted . pts knees melting a couple times as well as fast turns and twists; unsafe Wheelchair Training Does the Pt Use a Wheelchair?: Yes Wheel 50 ft with 2 turns (QC): 4 Type of Wheelchair: Manual pt. indep brakes w/c with instruction, straight ways with cues only, turns with instruction but hands and arthritis limit pts w/c use Balance Special Test Comments standing and TRF trials , dynamic ans static with poor safety judgement and LOB noted Exercises Supine Ex: Bridging, Ankle pumps, Quad Set, Rolling, Glut sets, Heel Slides, Short Arc Quads, Scooting, Straight leg raise, Hip abd/add Supine Reps: 20 Assessment Current Status: Fair Progress at risk for falls , poor safety awareness , requires radio time salesperson assist for safety PT Short Term Goals Short Term Goals Time Frame: Oct 21, 2019 Roll Left & Right: 6 Sit to lyin Lying to sitting on side of be: 6 Sit to stand: 6 PT Snf Goals Cdl Flatbed Truck Driver Goals PT Cdl Flatbed Truck Driver Goals Time Frame: Nov 04, 2019 Roll Left & Right (QC): 6 Sit to Lying (QC): 6 Lying-Sitting on Side/Bed(QC): 6 Sit to Stand (QC): 6 Chair/Tro-bz-Lbkvm Xfer(QC): 6 Toilet Transfer (QC): 6 Car Transfer (QC): 4 Does the Patient Walk: Yes Walk 10 feet (QC): 6 Walk 50ft with 2 Turns (QC): 6 Walk 150 ft (QC): 6 Walking 10ft on Uneven Surface: 6 1 Step (curb) (QC): 4 4 Steps (QC): 4 12 Steps (QC): 9 Picking up an Object (QC): 4 Does the Pt use WC or Scooter?: No Wheel 50 feet with 2 turns (QC: 9 Wheel 150 feet: 9 PT Plan Treatment/Plan Treatment Plan: Continue Plan of Care Treatment Plan: Bed Mobility, Education, Functional Activity Rex, Functional Strength, Group Therapy, Gait, Safety, Therapeutic Exercise, Transfers Treatment Duration: Nov 04, 2019 Frequency: Modified Program (IRF) Estimated Hrs Per Day: 1.5 hours per day Patient and/or Family Agrees t: Yes Safety Risks/Education Patient Education: Gait Training, Transfer Techniques, Correct Positioning, W/C Management, Disease Process, Safety Issues Teaching Recipient: Patient Teaching Methods: Demonstration, Discussion Response to Teaching: Unable to Return Demonstration, Reinforcement Needed Time/GCodes Time In: 800 Time Out: 900 Total Billed Treatment Time: 60 Total Billed Treatment 1,FA30m, GT15,EX15 DANYELLE CALLEJAS COMPLIANCE MANAGER Oct 20, 2019 09:21
--- NOTE | 2019-10-20 09:54 | NUR ---
DC PREDNISONE PER DR. NEAL.
--- NOTE | 2019-10-20 11:17 | PM&R Progress Note ---
Subjective HPI/CC On Admission Date Seen by Provider: Oct 20, 2019 Time Seen by Provider: 09:30 Subjective/Events-last exam Telesitter maintained O2 maintained Family at bedside DC steroids today after this dose Improved a bit Delirium improved a bit Checked meds and labs Reviewed therapy notes Conferred with RN extensively Review of Systems Pulmonary: Dyspnea 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: Confusion Objective Exam Vital Signs Vital Signs Date Time Temp Pulse Resp B/P (MAP) Pulse Ox O2 Delivery O2 Flow Rate FiO2 10/20/19 19:46 98 Nasal Cannula 2.00 10/20/19 17:30 36.7 75 16 145/74 (97) 10/19/19 15:06 32 Capillary Refill : Less Than 3 SecondsLess Than 3 Seconds General Appearance: WD/WN, Anxious, Chronically ill, Mild Distress, Other (more declined and richmond colored) HEENT: PERRL/EOMI, Normal ENT Inspection, Pharynx Normal Neck: Full Range of Motion, Normal Inspection, Non Tender, Supple, Carotid Bruit Respiratory: Chest Non Tender, Lungs Clear, No Accessory Muscle Use, No Respiratory Distress, Decreased Breath Sounds Cardiovascular: Regular Rate, Rhythm, No Edema, No Gallop, No JVD, No Murmur, Normal Peripheral Pulses Gastrointestinal: Normal Bowel Sounds, No Organomegaly, No Pulsatile Mass, Non Tender, Soft Back: Normal Inspection, No CVA Tenderness, No Vertebral Tenderness Extremity: Normal Capillary Refill, Normal Inspection, Normal Range of Motion, Non Tender, No Calf Tenderness, No Pedal Edema Neurologic/Psychiatric: Alert, No Motor/Sensory Deficits, dairy clerk II-XII Norm as Tested, Depressed Affect, Disoriented (subtle poor recall) Skin: Normal Color, Warm/Dry Lymphatic: No Adenopathy Results/Procedures Lab Patient resulted labs reviewed. FIM Transfers Therapy Code Descriptions/Definitions Functional [place] Measure: 0=Not Assessed/NA 4=Minimal Assistance 1=Total Assistance 5=Supervision or Setup 2=Maximal Assistance 6=Modified [place] 3=Moderate Assistance 7=Complete IndependenceSCALE: Activities may be completed with or without assistive devices. 1-Majhudkssi-tduqvpp completes the activity by him/herself with no assistance from a helper. 5-Set-up or Clean-up Assistance-helper sets up or cleans up; patient completes activity. [place] assists only prior to or following the activity. 4-Supervision or Touching Assistance-helper provides verbal cues and/or touching/steadying and/or contact guard assistance as patient completes activity. Assistance may be provided throughout the activity or intermittently. 3-Partial/Moderate Assistance-helper does LESS THAN HALF the effort. [place] lifts, holds or supports trunk or limbs, but provides less than half the effort. 2-Substantial/Maximal Assistance-helper does MORE THAN HALF the effort. [place] lifts or holds trunk or limbs and provides more than half the effort. 8-Wdiqzfbqw-zjgbze does ALL the effort. Patient does none of the effort to complete the activity. Or, the assistance of 2 or more helpers is required for the patient to complete the activity. If activity was not attempted, code reason: 7-Patient Refused. 9-Not Applicable-not attempted and the patient did not perform the activity before the current illness, exacerbation or injury. 10-Not Attempted due to Environmental Limitations-(lack of equipment, weather restraints, etc.). 88-Not Attempted due to Medical Conditions or Safety Concerns. Roll Left to Right (QC): 5 Sit to Lying (QC): 4 Sit to Stand (QC): 4 Chair/Zxo-ro-Nfktw Xfer(QC): 4 Car Transfer (QC): 3 Gait Training Does the Patient Walk?: Yes Distance: 200 x2 Walk 10 feet (QC): 3 Walk 50 ft with 2 Turns(QC): 3 Walk 150 ft (QC): 3 Walking 10ft/uneven surface-QC: 3 Gait Persons Needed: 1 Gait Assistive Device: FWW Wheelchair Training Does the Pt Use a Wheelchair?: Yes Wheel 50 ft with 2 turns (QC): 4 Wheel 150 ft (QC): 1 Type of Wheelchair: Manual Stair Training #of Steps: 4 1 Step (curb) (QC): 3 4 Steps (QC): 3 12 Steps (QC): 88 Balance Picking up an Object (QC): 88 ADL-Treatment Eating (QC): 5 Oral Hygiene (QC): 6 Shower/Bathe Self (QC): 4 Upper Body Dressing (QC): 5 Lower Body Dressing (QC): 3 On/Off Footwear (QC): 2 Toileting Hygiene (QC): 4 Toilet Transfer (QC): 4 Assessment/Plan Assessment and Plan Assess & Plan/Chief Complaint Assessment: Myopathy Delirium CHF with volume overload requiring IV Lasix COPD Oxygen dependency New confusion with delirium as confirmed Medical noncompliance Denial of severity of medical problems Former smoker Rheumatoid arthritis Chronic renal insufficiency Hyperglycemia HGA1C 6.1 Hypertension hkr-rc-uihapwa improved today Orthostasis with vertigo Plan: IV Lasix prn Inpatient rehabilitation protocol Strengthening Home meds Monitor closely Work on cognition Monitor labs O2 Nebs Delirium treatment (1) Myopathy (2) Memory loss (3) Denial about severity of illness (4) COPD with acute exacerbation Status: Resolved Resolution Date/Time: 10/14/19 @ 14:22 (5) Paroxysmal atrial fibrillation Status: Chronic (6) Orthostatic hypotension Status: Resolved Resolution Date/Time: 10/14/19 @ 14:22 (7) Atrial fibrillation with rapid ventricular response Status: Acute (8) Noncompliance with medication regimen Status: Chronic (9) Hypoxia Status: Chronic (10) Uncontrolled hypertension Status: Acute (11) Hyperglycemia Status: Acute (12) Delirium JEROME NEAL DO Oct 20, 2019 11:17
--- NOTE | 2019-10-20 11:56 | Occupational Ther Daily Note ---
OT Current Status-Daily Note Subjective Pt sleeping in bed, woke to name. Pt stated that she would be better if she could go to bed. Pt closed eyes and appeared to fall asleep. Pt agrees to therapy. Small amount of blood on towels after shower, reported to nrsg and nrsg looked at area. Mental Status/Objective Patient Orientation: Person, Place, Time, Situation ADL-Treatment Pt agrees to shower. Pt is unsteady with transfers, static/dynamic standing. Pt is impulsive and attempts to sit before getting fully turned to sit in chair safely, verbal/physical cues needed. Pt transferred to w/c with CGA due to LOB. Pt transferred to toilet using grabbars and w/c, CGA. CGA to manipulate clothing for toileting and cleansed self sitting on toilet. CGA to transfer into shower using grabbars and FWW. SBA while pt completed shower in sitting then CGA in standing while pt cleanse buttocks. Mod A for lower body dressing,pt kept closing eyes during task stated that she was just tired. Pt takes increased time to complete oral care by self. Attempted to demonstrate different techniques to complete donning lower body clothing and socks, pt unable to attempt due to falling asleep. After therapy, pt lying in bed and immediately fell asleep. NOÉ hose on and call light/phone in reach. All needs met in room. Therapy Code Descriptions/Definitions Functional [place] Measure: 0=Not Assessed/NA 4=Minimal Assistance 1=Total Assistance 5=Supervision or Setup 2=Maximal Assistance 6=Modified [place] 3=Moderate Assistance 7=Complete IndependenceSCALE: Activities may be completed with or without assistive devices. 6-Vkwfologid-ujgysqt completes the activity by him/herself with no assistance from a helper. 5-Set-up or Clean-up Assistance-helper sets up or cleans up; patient completes activity. [place] assists only prior to or following the activity. 4-Supervision or Touching Assistance-helper provides verbal cues and/or touching/steadying and/or contact guard assistance as patient completes activity. Assistance may be provided throughout the activity or intermittently. 3-Partial/Moderate Assistance-helper does LESS THAN HALF the effort. [place] lifts, holds or supports trunk or limbs, but provides less than half the effort. 2-Substantial/Maximal Assistance-helper does MORE THAN HALF the effort. [place] lifts or holds trunk or limbs and provides more than half the effort. 9-Udbosqtlz-ycuofq does ALL the effort. Patient does none of the effort to complete the activity. Or, the assistance of 2 or more helpers is required for the patient to complete the activity. If activity was not attempted, code reason: 7-Patient Refused. 9-Not Applicable-not attempted and the patient did not perform the activity befo re the current illness, exacerbation or injury. 10-Not Attempted due to Environmental Limitations-(lack of equipment, weather re straints, etc.). 88-Not Attempted due to Medical Conditions or Safety Concerns. Oral Hygiene (QC): 6 Shower/Bathe Self (QC): 4 Upper Body Dressing (QC): 3 (Pt required assist to pull shirt down.) Lower Body Dressing (QC): 2 On/Off Footwear: 2 Toileting Hygiene (QC): 4 Toilet Transfer (QC): 4 OT French Drawer Goals French Drawer Goals Time Frame: Oct 28, 2019 Eating (QC): 6 Oral Hygiene (QC): 6 Toileting Hygiene (QC): 6 Shower/Bathe Self (QC): 6 Upper Body Dressing (QC): 6 Lower Body Dressing (QC): 6 On/Off Footwear (QC): 6 Additional Goals: 1-Demonstrate ADL Tasks, 2-Verbalize Understanding, 3- ImproveStrength/Rex 1=Demonstrate adherence to instructed precautions during ADL tasks. 2=Patient will verbalize/demonstrate understanding of assistive devices/modifications for ADL. 3=Patient will improve strength/tolerance for activity to enable patient to perform ADL's. OT Education/Plan Problem List/Assessment Assessment: Decreased Activ Tolerance, Decreased Safety Aware, Impaired Cog nition, Impaired Coordination, Impaired Funct Balance, Impaired Self-Care Skills Discharge Recommendations Plan/Recommendations: Continue POC Treatment Plan/Plan of Care Patient would benefit from OT for education, treatment and training to promote independence in ADL's, mobility, safety and/or upper extremity function for ADL 's. Plan of Care: ADL Retraining, Caregiver Training, Concurrent Therapy, Functional Mobility, Group Exercise/Act as Ind, UE Funct Exercise/Act Treatment Duration: Oct 28, 2019 Frequency: At least 5 of 7 days/Wk (IRF) Estimated Hrs Per Day: 1.5 hours per day Agreement: Yes Rehab Potential: Fair Time/GCodes Start Time: 10:30 Stop Time: 11:45 Total Time Billed (hr/min): 75 Billed Treatment Time 1 visit-ADL 5 (75 min) JENELLE RAMSEY Oct 20, 2019 11:56
--- NOTE | 2019-10-20 12:52 | Pulmonary Consultation ---
History of Present Illness History of Present Illness Date Seen by Provider: Oct 20, 2019 Time Seen by Provider: 12:46 Date of Admission History of Present Illness 74yo with hx of severe oxygen dependent COPD, RA, AFIb, CAD, medical noncompliance admitted to rehab for rehabilitation. CXR appears to be improving. She is requiring 3 liters of oxygen. I am consulted for pulmonary management. Allergies and Home Medications Allergies Coded Allergies: Sulfa (Sulfonamide Antibiotics) (Verified Allergy, Unknown, 12/27/17) Home Medications Apixaban 5 Mg Tablet, 5 MG PO BID, (Reported) LAST FILLED 06-06-2019 #180/90DS Atorvastatin Calcium 20 Mg Tablet, 20 MG PO HS, (Reported) LAST FILLED 06-06-2019 #90/90DS Carvedilol 6.25 Mg Tablet, 6.25 MG PO BID, (Reported) LAST FILLED 06-06-2019 #180/90DS Cholecalciferol (Vitamin D3) 500 Unit/5 Ml Liquid, 5 ML PO 1200, (Reported) Citalopram Hydrobromide 20 Mg Tablet, 20 MG PO HS, (Reported) LAST FILLED 06-06-2019 #90/90DS Diltiazem HCl 120 Mg Cap.er.24h, 120 MG PO DAILY, (Reported) LAST FILLED 06-06-2019 #90/90DS Ferrous Sulfate 300 Mg/6.82 Ml Solution, 5 ML PO DAILY, (Reported) Flaxseed Oil 1,000 Mg Capsule, 1,000 MG PO DAILY, (Reported) Furosemide 20 Mg Tablet, 20 MG PO DAILY PRN for SWELLING, (Reported) Ipratropium/Albuterol Sulfate 3 Ml Ampul.neb, 3 ML INH RTQ4HR Prescribed by: JEROME NEAL on 10/10/191112 Multivitamin 1 Each Tablet, 2 EACH PO DAILY, (Reported) Prednisone 10 Mg Tab.ds.pk, 10 MG PO DAILY Take 6 tabs(60mg)daily,decrease by 1 tab(10MG)daily. Prescribed by: JEROME NEAL on 10/10/191112 [Instaflex] , 1 TAB PO DAILY, (Reported) Past Ipltwql-Gabxmx-Pwfhes Hx Past Med/Social Hx: Reviewed Nursing Past Med/Soc Hx, Reviewed and Corrections made Patient Social History Alcohol Use: Denies Use Recreational Drug Use: No Smoking Status: Former Smoker Type Used: Cigarettes Former Smoker, Quit: Aug 27, 2004 2nd Hand Smoke Exposure: No Recent Foreign Travel: No Contact w/Someone Who Travel: No Recent Infectious Disease Expo: No Recent Hopitalizations: No Immunizations Up To Date Date of Pneumonia Vaccine: Sep 17, 2015 Date of Influenza Vaccine: Jul 19, 2019 Seasonal Allergies Seasonal Allergies: No Past Medical History Surgeries: Yes (CARDIAC CATH X 3--STENTS X 4) Cardiac, Coronary Stent, Gallbladder, Tubal Ligation Respiratory: Yes Pneumonia, COPD Currently Using CPAP: No Currently Using BIPAP: No Cardiac: Yes (CHF; CARDIAC CATHS X 3 WITH STENTS X 4) Atrial Fibrillation, Coronary Artery Disease, Heart Attack, High Cholesterol, Hypertension 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: No Vertigo : No 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 ) Loss of Vision: Denies Cancer: No Psychosocial: Yes Anxiety, Depression Integumentary: No Blood Disorders: No Adverse Reaction/Blood Tranf: No Family Medical History Cardiovascular disease 19 MOTHER Diabetes mellitus 19 MOTHER Hypertension 19 MOTHER No Pertinent Family Hx LONG HISTORY OF NON-COMPLIANCE Sepsis Event Evaluation Height, Weight, BMI Height: 5'4.00" Weight: 170lbs. 0oz. 77.506667zt; 29.99 BMI Method:Stated Exam Exam Vital Signs Date Time Temp Pulse Resp B/P (MAP) Pulse Ox O2 Delivery O2 Flow Rate FiO2 10/20/19 09:56 Nasal Cannula 3.00 10/20/19 08:57 90 124/75 (91) 100 Nasal Cannula 3.00 10/20/19 05:44 36.8 66 20 140/86 (104) 96 Nasal Cannula 3.00 10/19/19 22:13 92 Nasal Cannula 2.00 10/19/19 21:00 Nasal Cannula 3.00 10/19/19 16:35 36.2 72 20 119/72 (88) 99 Nasal Cannula 3.00 10/19/19 15:06 36.2 76 97 32 10/19/19 13:35 100 Nasal Cannula 2.00 I & O 10/20/19 07:00 Intake Total 1280 ml Output Total 800 ml Balance 480 ml Height & Weight Height: 5'4.00" Weight: 170lbs. 0oz. 77.349441tg; 29.99 BMI Method:Stated General Appearance: WD/WN, Anxious, Chronically ill, Mild Distress, Other (more declined and [place] colored) HEENT: PERRL/EOMI, Normal ENT Inspection, Pharynx Normal Neck: Full Range of Motion, Normal Inspection, Non Tender, Supple, Carotid Bruit Respiratory: Chest Non Tender, Lungs Clear, No Accessory Muscle Use, No Respiratory Distress, Decreased Breath Sounds Cardiovascular: Regular Rate, Rhythm, No Edema, No Gallop, No JVD, No Murmur, Normal Peripheral Pulses Capillary Refill: Less Than 3 Seconds Extremity: Normal Capillary Refill, Normal Inspection, Normal Range of Motion, Non Tender, No Calf Tenderness, No Pedal Edema Neurologic/Psychiatric: Alert, No Motor/Sensory Deficits, 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
--- NOTE | 2019-10-20 12:52 | Cardiology Progress Note ---
Cardiology SOAP Progress Note Subjective: No cardiac complaints. Objective: I&O/Vital Signs 10/21/19 10/21/19 10/21/19 05:50 08:36 15:56 Temp 36.0 36.2 Pulse 66 65 Resp 18 18 B/P (MAP) 137/91 (106) 116/72 (87) Pulse Ox 99 93 O2 Delivery Nasal Cannula Nasal Cannula Room Air O2 Flow Rate 3.00 2.00 10/21/19 00:00 Intake Total 667 ml Balance 667 ml Weight (Pounds): 170 Weight (Ounces): 0 Weight (Calculated Kilograms): 77.377859 Respiratory: chest is bilaterally symmetric, lungs clear to auscultation Cardiovascular: irregularly irregular, S1 and S2 Gastrointestional: soft, audible bowel sounds Extremities: normal range of motion, non-tender, normal inspection, no lower extremity edema bilateral Neurologic/Psychiatric: no motor/sensory deficits, alert, normal mood/affect, grossly intact Skin: normal color, warm/dry Results/Procedures: Labs Laboratory Tests 10/20/19 20:36: Glucometer 156H 10/21/19 05:28: Glucometer 98 10/21/19 10:48: Glucometer 140H 10/21/19 15:14: Glucometer 152H A/P: Assessment/Dx: Admitted for Intractable dizziness, resolved COPD, Mild acute on chronic systolic/diastolic heart failure, Atrial fibrillation with controlled ventricular rate CAD, History of smoking Plan: Plan: Improved neurological status. Dizziness. Telemetry. Defer to the primary team. Leukocytosis. Sepsis needs to be ruled out. Defer to the primary team. COPD, defer treatment to Dr. Verde. Likely the cause of shortness of breath. Mild acute on chronic systolic/diastolic heart failure. BNP over 400 on admission. Currently BNP just over 400. Unlikely florid congestive heart failure. Can continue low-dose IV Lasix. Atrial fibrillation with controlled ventricular rate, continue Cardizem and oral anticoagulation. CAD, history of PCI and stents. No chest pain. All troponins negative. No further invasive cardiac management at this point in time. History of smoking Thank you for your consultation. Please call me if you have any questions. Edwina Bermudez MD, FACP, FACC, FSCAI, FHRS, CCDS Interventional Cardiology Cardiac Electrophysiology Vascular Medicine and Endovascular Interventions Faby BERMUDEZ MD Oct 20, 2019 12:52
[2019-10-20 13:24] VITALS: BP 115/73
--- NOTE | 2019-10-20 13:24 | NUR ---
THERAPY REPORTS THAT PATIENT SEEMS WEAK AND IS LEANING TO THE LEFT. IN ROOM TO ASSESS PATIENT. ALERT AND ORIENTED. BP 115/73, HR 73, 02 99% ON 3L PER NC. ABLE TO LIFT RIGHT AND LEFT LEGS UP OFF OF THE BED. HAND TRAM INSPECTOR EQUAL. NO FACIAL DROOPING NOTED. DENIES ANY COMPLAINTS OR CONCERNS. STATES, IS "JUST TIRED". DR. THAKKAR IN ROOM AND UPDATED. ASSESSED PATIENT. NO NEW ORDERS REC'D.
--- NOTE | 2019-10-20 13:29 | Physical Therapy Daily Note ---
PT Daily Note-Current Subjective Pt. on [facility] [place] upon entering. Nurse tech present and states pt. seems to be having more difficulty staying upright. Pts. speech slurred, nurse notified. Pt. comments that she is having difficulty moving and repeats several times that she will just have to hire someone to take care of her at home. Pain Location: No Pain Reported Transfers SCALE: Activities may be completed with or without assistive devices. 1-Uxwlpuvsbf-bauljnj completes the activity by him/herself with no assistance from a helper. 5-Set-up or Clean-up Assistance-helper sets up or cleans up; patient completes activity. Mobile assists only prior to or following the activity. 4-Supervision or Touching Assistance-helper provides verbal cues and/or touching/steadying and/or contact guard assistance as patient completes activity. Assistance may be provided throughout the activity or intermittently. 3-Partial/Moderate Assistance-helper does LESS THAN HALF the effort. Mobile lifts, holds or supports trunk or limbs, but provides less than half the effort. 2-Substantial/Maximal Assistance-helper does MORE THAN HALF the effort. Mobile lifts or holds trunk or limbs and provides more than half the effort. 3-Qijdnjegu-jldtsf does ALL the effort. Patient does none of the effort to complete the activity. Or, the assistance of 2 or more helpers is required for the patient to complete the activity. If activity was not attempted, code reason: 7-Patient Refused. 9-Not Applicable-not attempted and the patient did not perform the activity before the current illness, exacerbation or injury. 10-Not Attempted due to Environmental Limitations-(lack of equipment, weather restraints, etc.). 88-Not Attempted due to Medical Conditions or Safety Concerns. Sit to Lying (QC): 4 Sit to Stand (QC): 3 Chair/Qbd-rv-Fyxtl Xfer(QC): 3 Toilet Transfer (QC): 3 pt. needed mod to max assist to stand and clean self and get pants back up, pt. listing heavily to left through entire TRF. Pt. needed mod assist to SPT from [facility] [place] just beside bed to bed, then slumped to bed and required assist to sit upright as she layed over to her left side. sit to stand and side step to right to head of bed with mod assist and min assist to get LEs in bed and get to center of bed. BP115/73, HR 68, O2 sat 99%. Nursing alerted to pts status and came to assess Weight Bearing Right Lower Extremity: Right Full Weight Bearing Left Lower Extremity: Left Full Weight Bearing Gait Training 4-5 steps to right x 2 mod assist, poor grasp L hand on FWW Assessment Current Status: Poor Progress increased weakness noted L U&L extremity PT Short Term Goals Short Term Goals Time Frame: Oct 21, 2019 Roll Left & Right: 6 Sit to lyin Lying to sitting on side of be: 6 Sit to stand: 6 PT Jail Goals Jail Goals PT Secretary Specialist Goals Time Frame: Nov 04, 2019 Roll Left & Right (QC): 6 Sit to Lying (QC): 6 Lying-Sitting on Side/Bed(QC): 6 Sit to Stand (QC): 6 Chair/Vxq-gh-Lhejv Xfer(QC): 6 Toilet Transfer (QC): 6 Car Transfer (QC): 4 Does the Patient Walk: Yes Walk 10 feet (QC): 6 Walk 50ft with 2 Turns (QC): 6 Walk 150 ft (QC): 6 Walking 10ft on Uneven Surface: 6 1 Step (curb) (QC): 4 4 Steps (QC): 4 12 Steps (QC): 9 Picking up an Object (QC): 4 Does the Pt use WC or Scooter?: No Wheel 50 feet with 2 turns (QC: 9 Wheel 150 feet: 9 PT Plan Treatment/Plan Treatment Plan: Continue Plan of Care Treatment Plan: Bed Mobility, Education, Functional Activity Rex, Functional Strength, Group Therapy, Gait, Safety, Therapeutic Exercise, Transfers Treatment Duration: Nov 04, 2019 Frequency: Modified Program (IRF) Estimated Hrs Per Day: 1.5 hours per day Patient and/or Family Agrees t: Yes Safety Risks/Education Patient Education: Transfer Techniques Teaching Recipient: Patient Teaching Methods: Demonstration, Discussion Response to Teaching: Unable to Return Demonstration, Reinforcement Needed Time/GCodes Time In: 1230 Time Out: 1245 Total Billed Treatment Time: 15 Total Billed Treatment 1,FAFrancescom DANYELLE CALLEJAS ACCOUNT MANAGER B2B Oct 20, 2019 13:29
--- NOTE | 2019-10-20 15:02 | Speech Therapy Daily Note ---
Speech Daily Progress Note Subjective Date Seen by Provider: Oct 20, 2019 Time Seen by Provider: 00:30 Patient was just waking from an afternoon nap when I entered her room. Patient's was present. Objective Patient completed safety awareness tasks with 60% given moderate cues. Assessment Assessment Current Status: Fair Progress Treatment Plan Continue Plan of Care Speech Short Term Goals Short Term Goals Short Term Goals 1) The patient will complete memory tasks related to her daily needs at 90% or greater with minimal cues. 2) The patient will complete safety awareness tasks related to her daily needs at 90% or greater with minimal cues. 3) The patient will complete problem solving tasks related to her daily needs at 90% or greater with minimal cues. Speech Retirement Goals Lead Medical Technologist Goals Patient will improve cognitive-communication necessary for safety and daily living tasks with minimal assist. Speech-Plan Patient/Family Goals Patient/Family Goals: Patient plans on returning to her home where she lives with her . Treatment Plan Speech Therapy Treatment Plan: Continue Plan of Care Patient demo decreased alertness this afternoon. Treatment Duration: Oct 27, 2019 Frequency: 4 times per week Estimated Hrs Per Day: Other Rehab Potential: Fair Barriers to Learning: Patient's dementia, cognitive deficits Pt/Family Agrees to Plan: Yes Safety Risks/Education Teaching Recipient: Patient, Significant Other Teaching Methods: Demonstration, Discussion Response to Teaching: Verbalize Understanding, Return Demonstration, Reinforcement Needed Education Topics Provided: Continued safety and communication Time Speech Therapy Time In: 14:30 Speech Therapy Time Out: 15:00 Total Billed Time: 30 Billed Treatment Time 1PATIENCE [address] [facility] Oct 20, 2019 15:01
--- NOTE | 2019-10-20 15:36 | NUR ---
Visited pt and her , Michael. Provided follow up support and encouragement and one on one active listening for Michael. Both shared this has been a long process of healing and they appreciate the kindness of those who listen and offer support.
--- NOTE | 2019-10-20 15:42 | NUR ---
SW CONCURRENT NOTE Visited with Morgan Jesus, patient sleeping soundly. His observation is a slight improvement in her function overall. ARU team will continue to monitor progress as it relates to a return home vs SNF placement for continued therapies in a 10/05 environment.
[2019-10-20 17:30] VITALS: BP 145/74
[2019-10-20] MEDS: RT-ADVAIR HFA 115/21 MCG PER PUFF IH PRN (19:47)
[2019-10-20] MEDS: ALPRAZolam 0.25 MG (XANAX) TAB PO PRN (20:59)
[2019-10-20] MEDS: MELATONIN 3 MG TABLET PO PRN (21:01)
[2019-10-21] MEDS: RT-ALBUTEROL/IPRATROPIUM 3 ML (DUONEB) VIAL INH SCH ×6 (03:21→23:58)
[2019-10-21] MEDS: inSUlin ASPART (NovoLOG) 1 UNIT/0.01 ML (CHARGE PER UNIT) SC SCH ×4 (05:44→20:20)
[2019-10-21 05:50] VITALS: BP 137/91
[2019-10-21] MEDS: CARVEDILOL 12.5 MG (COREG) TABLET PO SCH ×2 (09:12→20:22)
[2019-10-21] MEDS: DOCUSATE SODIUM 100 MG (COLACE) CAP PO SCH ×2 (09:12→20:22)
[2019-10-21] MEDS: DILTIAZEM 240 MG (CARDIZEM CD) CAP PO SCH (09:12)
[2019-10-21] MEDS: SENNA W/DOCUSATE (SENOKOT S) TABLET PO SCH ×2 (09:12→20:22)
[2019-10-21] MEDS: POLYETHYLENE GLYCOL 17 GM (MIRALAX) PACK PO SCH ×2 (09:13→21:24)
[2019-10-21] MEDS: risperiDONE 0.25 MG (RisperDAL) TAB PO SCH ×2 (09:13→20:22)
[2019-10-21] MEDS: APIXABAN 5 MG (ELIQUIS) TABLET PO SCH ×2 (09:13→20:22)
[2019-10-21] MEDS: MONTELUKAST 10 MG (SINGULAIR) TAB PO SCH (09:13)
--- NOTE | 2019-10-21 12:42 | PM&R Progress Note ---
Subjective HPI/CC On Admission Date Seen by Provider: Oct 21, 2019 Time Seen by Provider: 12:45 Subjective/Events-last exam Telesitter maintained O2 maintained 24/7 No family at bedside today but the who is also my patient seems to wander around the unit and even attempt to go into other patients' rooms so will need to address that DC steroids yesterday after that dose Improved a bit Delirium improved a bit Labs and CXR ordered by Dr Delia Diego NHP Checked meds and labs Reviewed therapy notes Conferred with RN extensively Review of Systems Pulmonary: Dyspnea 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: Confusion Objective Exam Vital Signs Vital Signs Date Time Temp Pulse Resp B/P (MAP) Pulse Ox O2 Delivery O2 Flow Rate FiO2 10/21/19 08:36 Nasal Cannula 2.00 10/21/19 05:50 36.0 66 18 137/91 (106) 99 10/19/19 15:06 32 Capillary Refill : Less Than 3 SecondsLess Than 3 Seconds General Appearance: No Apparent Distress, WD/WN, Anxious, Chronically ill, Other (more declined and richmond colored) HEENT: PERRL/EOMI, Normal ENT Inspection, Pharynx Normal Neck: Full Range of Motion, Normal Inspection, Non Tender, Supple, Carotid Bruit Respiratory: Chest Non Tender, Lungs Clear, No Accessory Muscle Use, No Respiratory Distress, Decreased Breath Sounds Cardiovascular: Regular Rate, Rhythm, No Edema, No Gallop, No JVD, No Murmur, Normal Peripheral Pulses Gastrointestinal: Normal Bowel Sounds, No Organomegaly, No Pulsatile Mass, Non Tender, Soft Back: Normal Inspection, No CVA Tenderness, No Vertebral Tenderness Extremity: Normal Capillary Refill, Normal Inspection, Normal Range of Motion, Non Tender, No Calf Tenderness, No Pedal Edema Neurologic/Psychiatric: Alert, No Motor/Sensory Deficits, help desk administrator II-XII Norm as Tested, Depressed Affect, Disoriented (subtle poor recall) Skin: Normal Color, Warm/Dry Lymphatic: No Adenopathy Results/Procedures Lab Patient resulted labs reviewed. FIM Transfers Therapy Code Descriptions/Definitions Functional [place] Measure: 0=Not Assessed/NA 4=Minimal Assistance 1=Total Assistance 5=Supervision or Setup 2=Maximal Assistance 6=Modified [place] 3=Moderate Assistance 7=Complete IndependenceSCALE: Activities may be completed with or without assistive devices. 3-Oowswiqiel-cppzbdy completes the activity by him/herself with no assistance from a helper. 5-Set-up or Clean-up Assistance-helper sets up or cleans up; patient completes activity. [place] assists only prior to or following the activity. 4-Supervision or Touching Assistance-helper provides verbal cues and/or touching/steadying and/or contact guard assistance as patient completes activity. Assistance may be provided throughout the activity or intermittently. 3-Partial/Moderate Assistance-helper does LESS THAN HALF the effort. [place] lifts, holds or supports trunk or limbs, but provides less than half the effort. 2-Substantial/Maximal Assistance-helper does MORE THAN HALF the effort. [place] lifts or holds trunk or limbs and provides more than half the effort. 5-Zlbcbcdvr-bpaawm does ALL the effort. Patient does none of the effort to complete the activity. Or, the assistance of 2 or more helpers is required for the patient to complete the activity. If activity was not attempted, code reason: 7-Patient Refused. 9-Not Applicable-not attempted and the patient did not perform the activity before the current illness, exacerbation or injury. 10-Not Attempted due to Environmental Limitations-(lack of equipment, weather restraints, etc.). 88-Not Attempted due to Medical Conditions or Safety Concerns. Roll Left to Right (QC): 5 Sit to Lying (QC): 4 Sit to Stand (QC): 3 Chair/Izf-uo-Cxzrv Xfer(QC): 3 Car Transfer (QC): 3 Gait Training Does the Patient Walk?: Yes Distance: 200 x2 Walk 10 feet (QC): 3 Walk 50 ft with 2 Turns(QC): 3 Walk 150 ft (QC): 3 Walking 10ft/uneven surface-QC: 3 Gait Persons Needed: 1 Gait Assistive Device: FWW Wheelchair Training Does the Pt Use a Wheelchair?: Yes Wheel 50 ft with 2 turns (QC): 4 Wheel 150 ft (QC): 1 Type of Wheelchair: Manual Stair Training #of Steps: 4 1 Step (curb) (QC): 3 4 Steps (QC): 3 12 Steps (QC): 88 Balance Picking up an Object (QC): 88 ADL-Treatment Eating (QC): 5 Oral Hygiene (QC): 6 Shower/Bathe Self (QC): 4 Upper Body Dressing (QC): 3 (Pt required assist to pull shirt down.) Lower Body Dressing (QC): 2 On/Off Footwear (QC): 2 Toileting Hygiene (QC): 4 Toilet Transfer (QC): 4 Assessment/Plan Assessment and Plan Assess & Plan/Chief Complaint Assessment: Myopathy Delirium CHF with volume overload requiring IV Lasix COPD Oxygen dependency New confusion with delirium as confirmed Medical noncompliance Denial of severity of medical problems Former smoker Rheumatoid arthritis Chronic renal insufficiency Hyperglycemia HGA1C 6.1 Hypertension och-yh-rksiwhc improved today Orthostasis with vertigo Plan: IV Lasix prn Inpatient rehabilitation protocol Strengthening Home meds Monitor closely Work on cognition Monitor labs O2 Nebs Delirium treatment but definitely needs NH at [place] (1) Myopathy (2) Memory loss (3) Denial about severity of illness (4) COPD with acute exacerbation Status: Resolved Resolution Date/Time: 10/14/19 @ 14:22 (5) Paroxysmal atrial fibrillation Status: Chronic (6) Orthostatic hypotension Status: Resolved Resolution Date/Time: 10/14/19 @ 14:22 (7) Atrial fibrillation with rapid ventricular response Status: Acute (8) Noncompliance with medication regimen Status: Chronic (9) Hypoxia Status: Chronic (10) Uncontrolled hypertension Status: Acute (11) Hyperglycemia Status: Acute (12) Delirium JEROME NEAL DO Oct 21, 2019 12:42
--- NOTE | 2019-10-21 12:53 | Physical Therapy Daily Note ---
PT Daily Note-Current Subjective Pt requiring max encouragement and physical assist to participate in PT session. Pt states several times over "I just want to go home" and "if they would just take me home I would get better because they don't let me do anything by myself here". Pt voicing that she does not understand that she is not safe. Pain Numeric Pain Scale: 0-No Pain Appearance Upon arrival, pt in bed with eyes closed, dtr and present and assisting to encourage pt to participate. Pt requesting and assisted to bathroom. Pt sitting on toilet with call light cord in hand and FILM EDITOR at pt's side at end of session. Mental Status Patient Orientation: Person, Confused Transfers SCALE: Activities may be completed with or without assistive devices. 1-Upatobqudr-saariyn completes the activity by him/herself with no assistance from a helper. 5-Set-up or Clean-up Assistance-helper sets up or cleans up; patient completes activity. [place] assists only prior to or following the activity. 4-Supervision or Touching Assistance-helper provides verbal cues and/or touching/steadying and/or contact guard assistance as patient completes activity. Assistance may be provided throughout the activity or intermittently. 3-Partial/Moderate Assistance-helper does LESS THAN HALF the effort. [place] lifts, holds or supports trunk or limbs, but provides less than half the effort. 2-Substantial/Maximal Assistance-helper does MORE THAN HALF the effort. [place] lifts or holds trunk or limbs and provides more than half the effort. 7-[place]akhhu[place]g-bsfwfo does ALL the effort. Patient does none of the effort to comp lete the activity. Or, the assistance of 2 or more helpers is required for the patient to complete the activity. If activity was not attempted, code reason: 7-Patient Refused. 9-Not Applicable-not attempted and the patient did not perform the activity before the current illness, exacerbation or injury. 10-Not Attempted due to Environmental Limitations-(lack of equipment, weather restraints, etc.). 88-Not Attempted due to Medical Conditions or Safety Concerns. Roll Left & Right (QC): 3 Lying to Sitting/Side of Bed(Q: 3 Sit to Stand (QC): 3 Toilet Transfer (QC): 4 impulsive, sy9npffemd safety awareness, increased confusion, increased physical assist and strong verb inst required for safety and to prevent falls dominic with stand to sit as pt tries to leave walker aside and attempts to sit before a rriving at seat Weight Bearing Right Lower Extremity: Right Full Weight Bearing Left Lower Extremity: Left Full Weight Bearing Gait Training Does the Patient Walk?: Yes Distance: 150 x2 Walk 10 feet (QC): 4 Walk 50 ft with 2 Turns(QC): 3 Walk 150 ft (QC): 3 Gait Persons Needed: 2 (2nd person used to assist with O2 tank as this STUNTMAN needed to assist pt with balance and guiding walker) Gait Assistive Device: FWW unsteady, path deviation, LOB, requiring physical assist to guide walker at times, difficulty following inst and direction given at times, impulsive, decreased safety awareness Treatments education, safety, transfers from various surfaces, gait, balance, strength, toileting, bed mobility, activity tolerance, functional mobility, posture with lateral lean in sitting, standing and gait. Assessment Current Status: Poor Progress increased confusion and difficulty following inst and direction, increased impulsivity, decreased safety awareness, pt is not retaining safety and fall precautions as instructed in previous sessions. Continues to require strong encouragement to participate and continue with therapy session. Continues with lateral lean in sitting, standing and during gait. PT Short Term Goals Short Term Goals Time Frame: Oct 21, 2019 Roll Left & Right: 6 Sit to lyin Lying to sitting on side of be: 6 Sit to stand: 6 PT Snf Goals Snf Goals PT Oracle Reports Developer Goals Time Frame: Nov 04, 2019 Roll Left & Right (QC): 6 Sit to Lying (QC): 6 Lying-Sitting on Side/Bed(QC): 6 Sit to Stand (QC): 6 Chair/Qpb-ri-Eprls Xfer(QC): 6 Toilet Transfer (QC): 6 Car Transfer (QC): 4 Does the Patient Walk: Yes Walk 10 feet (QC): 6 Walk 50ft with 2 Turns (QC): 6 Walk 150 ft (QC): 6 Walking 10ft on Uneven Surface: 6 1 Step (curb) (QC): 4 4 Steps (QC): 4 12 Steps (QC): 9 Picking up an Object (QC): 4 Does the Pt use WC or Scooter?: No Wheel 50 feet with 2 turns (QC: 9 Wheel 150 feet: 9 PT Plan Treatment/Plan Treatment Plan: Continue Plan of Care Treatment Plan: Bed Mobility, Education, Functional Activity Rex, Functional Strength, Group Therapy, Gait, Safety, Therapeutic Exercise, Transfers Treatment Duration: Nov 04, 2019 Frequency: Modified Program (IRF) Estimated Hrs Per Day: 1.5 hours per day Patient and/or Family Agrees t: Yes Safety Risks/Education Patient Education: Gait Training, Transfer Techniques, Reviewed Precautions (falls and safety), Safety Issues Teaching Recipient: Patient Teaching Methods: Demonstration, Discussion Response to Teaching: Verbalize Understanding, Unable to Return Demonstration (at times), Return Demonstration, Reinforcement Needed Time/GCodes Time In: 844 Time Out: 913 Total Billed Treatment Time: 29 Total Billed Treatment 1 visit, FA x1 unit, GT x1 unit KELLY LOYA PTA Oct 21, 2019 12:53
[2019-10-21 15:56] VITALS: BP 116/72
[2019-10-21] MEDS: MELATONIN 3 MG TABLET PO PRN (20:22)
[2019-10-21] MEDS: ALPRAZolam 0.25 MG (XANAX) TAB PO PRN (20:22)
[2019-10-22] VITALS (7 sets, daily range): BP systolic 127–161; BP diastolic 70–91
[2019-10-22] MEDS: RT-ALBUTEROL/IPRATROPIUM 3 ML (DUONEB) VIAL INH SCH ×5 (03:03→23:19)
[2019-10-22 05:10] LABS: BASOPHILS % (AUTO) 0 % (0-10); EOSINOPHILS # (AUTO) 0.3 10^3/uL (0.0-0.3); EOSINOPHILS % (AUTO) 2 % (0-10); HEMATOCRIT 40 % (35-52); HEMOGLOBIN 12.3 G/DL (11.5-16.0); LYMPHOCYTES # (AUTO) 1.2 X 10^3 (1.0-4.0); LYMPHOCYTES % (AUTO) 8 % (12-44); MEAN CORPUSCULAR HEMOGLOBIN 29 PG (25-34); MEAN CORPUSCULAR HGB CONC 31 G/DL (32-36); MEAN CORPUSCULAR VOLUME 94 FL (80-99); MEAN PLATELET VOLUME 10.5 FL (7.4-10.4); MONOCYTES # (AUTO) 0.8 X 10^3 (0.0-1.0); MONOCYTES % (AUTO) 5 % (0-12); NEUTROPHILS # (AUTO) 12.2 X 10^3 (1.8-7.8); NEUTROPHILS % (AUTO) 84 % (42-75); PLATELET COUNT 232 10^3/uL (130-400); RED CELL DISTRIBUTION WIDTH 15.5 % (10.0-14.5); WHITE BLOOD COUNT 14.5 10^3/uL (4.3-11.0)
[2019-10-22 05:35] LABS: BUN/CREATININE RATIO 26; CALCIUM 9.2 MG/DL (8.5-10.1); CARBON DIOXIDE 29 MMOL/L (21-32); CHLORIDE 101 MMOL/L (98-107); CREATININE SERUM 0.82 MG/DL (0.60-1.30); GFR ESTIMATED > 60; GLUCOSE 107 MG/DL (70-105); MAGNESIUM 1.6 MG/DL (1.6-2.4); PHOSPHORUS 3.9 MG/DL (2.3-4.7); SODIUM 142 MMOL/L (135-145)
[2019-10-22] MEDS: inSUlin ASPART (NovoLOG) 1 UNIT/0.01 ML (CHARGE PER UNIT) SC SCH ×4 (05:41→20:43)
[2019-10-22 05:57] LABS: EOSINOPHILS % (MANUAL) 2 %; LYMPHOCYTES % (MANUAL) 7 %; MONOCYTES % (MANUAL) 3 %; NEUTROPHILS % (MANUAL) 88 %
--- NOTE | 2019-10-22 08:28 | Pulmonary Progress Note ---
Subjective Time Seen by a Provider: 08:26 Sepsis Event Evaluation Height, Weight, BMI Height: 5'4.00" Weight: 170lbs. 0oz. 77.097683rt; 29.99 BMI Method:Stated Exam Exam Vital Signs Date Time Temp Pulse Resp B/P (MAP) Pulse Ox O2 Delivery O2 Flow Rate FiO2 10/22/19 05:17 36.6 91 20 161/91 (114) 95 Nasal Cannula 3.00 10/22/19 03:07 98 Nasal Cannula 2.00 10/21/19 20:00 Nasal Cannula 3.00 10/21/19 17:57 90 Room Air 10/21/19 15:56 36.2 65 18 116/72 (87) 93 Room Air 10/21/19 08:36 Nasal Cannula 2.00 I & O 10/22/19 07:00 Intake Total 1250 ml Balance 1250 ml Height & Weight Height: 5'4.00" Weight: 170lbs. 0oz. [id number]; 29.99 BMI Method:Stated General Appearance: No Apparent Distress, WD/WN, Anxious, Chronically ill, Other (more declined and richmond colored) HEENT: PERRL/EOMI, Normal ENT Inspection, Pharynx Normal Neck: Full Range of Motion, Normal Inspection, Non Tender, Supple, Carotid Bruit Respiratory: Chest Non Tender, Lungs Clear, No Accessory Muscle Use, No Respiratory Distress, Decreased Breath Sounds Cardiovascular: Regular Rate, Rhythm, No Edema, No Gallop, No JVD, No Murmur, Normal Peripheral Pulses Capillary Refill: Less Than 3 Seconds Extremity: Normal Capillary Refill, Normal Inspection, Normal Range of Motion, Non Tender, No Calf Tenderness, No Pedal Edema Neurologic/Psychiatric: Alert, No Motor/Sensory Deficits, application performance engineer II-XII Norm as Tested, Depressed Affect, Disoriented (subtle poor recall) Skin: Normal Color, Warm/Dry Lymphatic: No Adenopathy Results Lab Laboratory Tests 10/22/19 05:05 Assessment/Plan Assessment/Plan COPD -Oxygen -SVN -Prednisone - d/c'd Debility CHF -Lasix Hx of tabacco use JEWEL TREADWELL DO Oct 22, 2019 08:27
--- NOTE | 2019-10-22 08:49 | NUR ---
Dr. Lin in to see pt, & dgtr. Pt denies needs.
[2019-10-22] MEDS: SENNA W/DOCUSATE (SENOKOT S) TABLET PO SCH ×2 (09:04→20:15)
[2019-10-22] MEDS: CARVEDILOL 12.5 MG (COREG) TABLET PO SCH ×2 (09:04→20:14)
[2019-10-22] MEDS: MONTELUKAST 10 MG (SINGULAIR) TAB PO SCH (09:04)
[2019-10-22] MEDS: risperiDONE 0.25 MG (RisperDAL) TAB PO SCH ×2 (09:04→20:14)
[2019-10-22] MEDS: DILTIAZEM 240 MG (CARDIZEM CD) CAP PO SCH (09:04)
[2019-10-22] MEDS: APIXABAN 5 MG (ELIQUIS) TABLET PO SCH ×2 (09:04→20:14)
[2019-10-22] MEDS: POLYETHYLENE GLYCOL 17 GM (MIRALAX) PACK PO SCH ×2 (09:06→20:14)
[2019-10-22] MEDS: DOCUSATE SODIUM 100 MG (COLACE) CAP PO SCH ×2 (09:06→20:14)
--- NOTE | 2019-10-22 12:47 | NUR ---
Dr. Lin states that can change the order from 2 view to 1 view for the CXR d/t only 2 staff in radiology to do transfers, & pt had episode this morning that her legs gave out, causing controlled fall w PCT, Sherrie.
--- NOTE | 2019-10-22 13:39 | PM&R Progress Note ---
Subjective HPI/CC On Admission Date Seen by Provider: Oct 22, 2019 Time Seen by Provider: 12:00 Subjective/Events-last exam Telesitter maintained O2 maintained 24/7 Had a controlled fall this morning and family witnessed that Improved a bit Delirium improved a bit Reviewed labs and CXR Needs NHP Checked meds and labs Reviewed therapy notes Conferred with RN extensively Review of Systems General: Fatigue Pulmonary: Dyspnea 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: Confusion Objective Exam Vital Signs Vital Signs Date Time Temp Pulse Resp B/P (MAP) Pulse Ox O2 Delivery O2 Flow Rate FiO2 10/22/19 19:40 98 Nasal Cannula 2.00 10/22/19 18:10 37.1 74 22 139/81 (100) 10/19/19 15:06 32 Capillary Refill : Less Than 3 SecondsLess Than 3 Seconds General Appearance: No Apparent Distress, WD/WN, Anxious, Chronically ill, Other (more declined and richmond colored) HEENT: PERRL/EOMI, Normal ENT Inspection, Pharynx Normal Neck: Full Range of Motion, Normal Inspection, Non Tender, Supple, Carotid Bruit Respiratory: Chest Non Tender, Lungs Clear, No Accessory Muscle Use, No Respiratory Distress, Decreased Breath Sounds Cardiovascular: Regular Rate, Rhythm, No Edema, No Gallop, No JVD, No Murmur, Normal Peripheral Pulses Gastrointestinal: Normal Bowel Sounds, No Organomegaly, No Pulsatile Mass, Non Tender, Soft Back: Normal Inspection, No CVA Tenderness, No Vertebral Tenderness Extremity: Normal Capillary Refill, Normal Inspection, Normal Range of Motion, Non Tender, No Calf Tenderness, No Pedal Edema Neurologic/Psychiatric: Alert, No Motor/Sensory Deficits, technical sales support specialist II-XII Norm as Tested, Depressed Affect, Disoriented (subtle poor recall) Skin: Normal Color, Warm/Dry Lymphatic: No Adenopathy Results/Procedures Lab Laboratory Tests 10/22/19 05:05 Patient resulted labs reviewed. FIM Transfers Therapy Code Descriptions/Definitions Functional [place] Measure: 0=Not Assessed/NA 4=Minimal Assistance 1=Total Assistance 5=Supervision or Setup 2=Maximal Assistance 6=Modified [place] 3=Moderate Assistance 7=Complete IndependenceSCALE: Activities may be completed with or without assistive devices. 7-Lycqrprzpu-rbltixf completes the activity by him/herself with no assistance from a helper. 5-Set-up or Clean-up Assistance-helper sets up or cleans up; patient completes activity. [place] assists only prior to or following the activity. 4-Supervision or Touching Assistance-helper provides verbal cues and/or touching/steadying and/or contact guard assistance as patient completes activity. Assistance may be provided throughout the activity or intermittently. 3-Partial/Moderate Assistance-helper does LESS THAN HALF the effort. [place] lifts, holds or supports trunk or limbs, but provides less than half the effort. 2-Substantial/Maximal Assistance-helper does MORE THAN HALF the effort. [place] lifts or holds trunk or limbs and provides more than half the effort. 1-Usxnwboxr-fzhmfx does ALL the effort. Patient does none of the effort to complete the activity. Or, the assistance of 2 or more helpers is required for the patient to complete the activity. If activity was not attempted, code reason: 7-Patient Refused. 9-Not Applicable-not attempted and the patient did not perform the activity before the current illness, exacerbation or injury. 10-Not Attempted due to Environmental Limitations-(lack of equipment, weather restraints, etc.). 88-Not Attempted due to Medical Conditions or Safety Concerns. Roll Left to Right (QC): 3 Sit to Lying (QC): 4 Sit to Stand (QC): 3 Chair/Kpd-sj-Lznel Xfer(QC): 3 Car Transfer (QC): 3 Gait Training Does the Patient Walk?: Yes Distance: 150 x2 Walk 10 feet (QC): 4 Walk 50 ft with 2 Turns(QC): 3 Walk 150 ft (QC): 3 Walking 10ft/uneven surface-QC: 3 Gait Persons Needed: 2 (2nd person used to assist with O2 tank as this INSPECTOR MACHINE CUT GLASS needed to assist pt with balance and guiding walker) Gait Assistive Device: FWW Wheelchair Training Does the Pt Use a Wheelchair?: Yes Wheel 50 ft with 2 turns (QC): 4 Wheel 150 ft (QC): 1 Type of Wheelchair: Manual Stair Training #of Steps: 4 1 Step (curb) (QC): 3 4 Steps (QC): 3 12 Steps (QC): 88 Balance Picking up an Object (QC): 88 ADL-Treatment Eating (QC): 5 Oral Hygiene (QC): 6 Shower/Bathe Self (QC): 4 Upper Body Dressing (QC): 3 (Pt required assist to pull shirt down.) Lower Body Dressing (QC): 2 On/Off Footwear (QC): 2 Toileting Hygiene (QC): 4 Toilet Transfer (QC): 4 Assessment/Plan Assessment and Plan Assess & Plan/Chief Complaint Assessment: Myopathy Delirium CHF with volume overload requiring IV Lasix COPD Oxygen dependency New confusion with delirium as confirmed Medical noncompliance Denial of severity of medical problems Former smoker Rheumatoid arthritis Chronic renal insufficiency Hyperglycemia HGA1C 6.1 Hypertension tuh-ub-pszmgnr improved today Orthostasis with vertigo Plan: IV Lasix prn Inpatient rehabilitation protocol Strengthening Home meds Monitor closely Work on cognition Monitor labs O2 Nebs Delirium treatment but definitely needs NH at [place] (1) Myopathy (2) Memory loss (3) Denial about severity of illness (4) COPD with acute exacerbation Status: Resolved Resolution Date/Time: 10/14/19 @ 14:22 (5) Paroxysmal atrial fibrillation Status: Chronic (6) Orthostatic hypotension Status: Resolved Resolution Date/Time: 10/14/19 @ 14:22 (7) Atrial fibrillation with rapid ventricular response Status: Acute (8) Noncompliance with medication regimen Status: Chronic (9) Hypoxia Status: Chronic (10) Uncontrolled hypertension Status: Acute (11) Hyperglycemia Status: Acute (12) Delirium JEROME NEAL DO Oct 22, 2019 13:39
--- NOTE | 2019-10-22 14:49 | Diagnostic Imaging Report ---
INDICATION: Dyspnea. COMPARISON: 10/16/2019 TECHNIQUE: Single radiograph of the chest dated 10/22/2019. FINDINGS: The cardiac silhouette is enlarged, similar to the prior examination. Increasing central pulmonary vascular congestion. Increasing prominence of the pulmonary interstitium with developing bibasilar pleural effusions. Calcified granuloma overlying the left ayse region are again noted. No pneumothorax. No acute osseous abnormality. IMPRESSION: Constellation of findings is felt to relate to mild congestive heart failure with interstitial edema and small bibasilar pleural effusions. Dictated by: Dictated on workstation # [id number]
--- NOTE | 2019-10-22 15:03 | NUR ---
Notified Dr. Lin of CXR results. No new orders.
--- NOTE | 2019-10-22 15:40 | Cardiology Progress Note ---
Cardiology SOAP Progress Note Subjective: Feels weak. Objective: I&O/Vital Signs 10/22/19 10/22/19 10/22/19 05:17 08:24 09:46 Temp 36.6 36.7 Pulse 91 82 Resp 20 18 B/P (MAP) 161/91 (114) 127/70 (89) Pulse Ox 95 99 O2 Delivery Nasal Cannula Nasal Cannula Nasal Cannula O2 Flow Rate 3.00 3.00 3.00 10/22/19 00:00 Intake Total 950 ml Balance 950 ml Weight (Pounds): 170 Weight (Ounces): 0 Weight (Calculated Kilograms): 77.330381 Respiratory: chest is bilaterally symmetric, lungs clear to auscultation Cardiovascular: irregularly irregular, S1 and S2 Gastrointestional: soft, audible bowel sounds Extremities: normal range of motion, non-tender, normal inspection, no lower extremity edema bilateral Neurologic/Psychiatric: no motor/sensory deficits, alert, normal mood/affect, grossly intact Skin: normal color, warm/dry Results/Procedures: Labs Laboratory Tests 10/21/19 20:18: Glucometer 114H 10/22/19 05:05: White Blood Count 14.5H, Red Blood Count 4.25L, Hemoglobin 12.3, Hematocrit 40, Mean Corpuscular Volume 94, Mean Corpuscular Hemoglobin 29, Mean Corpuscular Hemoglobin Concent 31L, Red Cell Distribution Width 15.5H, Platelet Count 232, Mean Platelet Volume 10.5H, Neutrophils (%) (Auto) 84H, Lymphocytes (%) (Auto) 8L, Monocytes (%) (Auto) 5, Eosinophils (%) (Auto) 2, Basophils (%) (Auto) 0, Neutrophils # (Auto) 12.2H, Lymphocytes # (Auto) 1.2, Monocytes # (Auto) 0.8, Eosinophils # (Auto) 0.3, Basophils # (Auto) 0.0, Neutrophils % (Manual) 88, Lymphocytes % (Manual) 7, Monocytes % (Manual) 3, Eosinophils % (Manual) 2, Sodium Level 142, Potassium Level 4.0, Chloride Level 101, Carbon Dioxide Level 29, Anion Gap 12, Blood Urea Nitrogen 21H, Creatinine 0.82, Estimat Glomerular Filtration Rate > 60, BUN/Creatinine Ratio 26, Glucose Level 107H, Calcium Level 9.2, Phosphorus Level 3.9, Magnesium Level 1.6 10/22/19 10:53: Glucometer 95 A/P: Assessment/Dx: Admitted for Intractable dizziness, improved COPD, Mild acute on chronic systolic/diastolic heart failure, Atrial fibrillation with controlled ventricular rate CAD, History of smoking Plan: Plan: Improved neurological status. Dizziness. Telemetry. Defer to the primary team. Leukocytosis. Sepsis needs to be ruled out. Defer to the primary team. COPD, defer treatment to Dr. Verde. Likely the cause of shortness of breath. Mild acute on chronic systolic/diastolic heart failure. BNP over 400 on admission. Currently BNP just over 400. Unlikely florid congestive heart failure. Can continue low-dose IV Lasix. Atrial fibrillation with controlled ventricular rate, continue Cardizem and oral anticoagulation. CAD, history of PCI and stents. No chest pain. All troponins negative. No further invasive cardiac management at this point in time. History of smoking Thank you for your consultation. Please call me if you have any questions. Edwina Bermudez MD, FACP, FACC, FSCAI, FHRS, CCDS Interventional Cardiology Cardiac Electrophysiology Vascular Medicine and Endovascular Interventions Faby BERMUDEZ MD Oct 22, 2019 15:40
[2019-10-22] MEDS: MELATONIN 3 MG TABLET PO PRN (20:14)
[2019-10-23] MEDS: RT-ALBUTEROL/IPRATROPIUM 3 ML (DUONEB) VIAL INH SCH ×5 (02:35→19:02)
[2019-10-23 05:45] VITALS: BP 114/77
[2019-10-23 06:02] LABS: BASOPHILS % (AUTO) 0 % (0-10); EOSINOPHILS # (AUTO) 0.2 10^3/uL (0.0-0.3); EOSINOPHILS % (AUTO) 2 % (0-10); HEMATOCRIT 38 % (35-52); HEMOGLOBIN 11.5 G/DL (11.5-16.0); LYMPHOCYTES # (AUTO) 0.9 X 10^3 (1.0-4.0); LYMPHOCYTES % (AUTO) 10 % (12-44); MEAN CORPUSCULAR HEMOGLOBIN 29 PG (25-34); MEAN CORPUSCULAR HGB CONC 30 G/DL (32-36); MEAN CORPUSCULAR VOLUME 94 FL (80-99); MEAN PLATELET VOLUME 11.2 FL (7.4-10.4); MONOCYTES # (AUTO) 0.7 X 10^3 (0.0-1.0); MONOCYTES % (AUTO) 7 % (0-12); NEUTROPHILS # (AUTO) 8.1 X 10^3 (1.8-7.8); NEUTROPHILS % (AUTO) 82 % (42-75); PLATELET COUNT 208 10^3/uL (130-400); RED CELL DISTRIBUTION WIDTH 15.9 % (10.0-14.5); WHITE BLOOD COUNT 9.9 10^3/uL (4.3-11.0)
[2019-10-23] MEDS: PATCH REMOVAL TP SCH (06:06)
[2019-10-23] MEDS: SCOPOLAMINE 1.5 MG (TRANSDERM-SCOP) PATCH TOP SCH (06:06)
[2019-10-23 06:31] LABS: BUN/CREATININE RATIO 21; CALCIUM 8.9 MG/DL (8.5-10.1); CARBON DIOXIDE 27 MMOL/L (21-32); CHLORIDE 101 MMOL/L (98-107); CREATININE SERUM 0.76 MG/DL (0.60-1.30); GFR ESTIMATED > 60; GLUCOSE 98 MG/DL (70-105); MAGNESIUM 1.6 MG/DL (1.6-2.4); PHOSPHORUS 3.4 MG/DL (2.3-4.7); POTASSIUM 3.6 MMOL/L (3.6-5.0); SODIUM 141 MMOL/L (135-145)
[2019-10-23] MEDS: inSUlin ASPART (NovoLOG) 1 UNIT/0.01 ML (CHARGE PER UNIT) SC SCH ×4 (06:34→20:19)
[2019-10-23] MEDS: POLYETHYLENE GLYCOL 17 GM (MIRALAX) PACK PO SCH ×2 (07:58→20:19)
[2019-10-23] MEDS: RT-ADVAIR HFA 115/21 MCG PER PUFF IH PRN (08:07)
[2019-10-23] MEDS: DILTIAZEM 240 MG (CARDIZEM CD) CAP PO SCH (08:57)
[2019-10-23] MEDS: DOCUSATE SODIUM 100 MG (COLACE) CAP PO SCH ×2 (08:57→20:17)
[2019-10-23] MEDS: APIXABAN 5 MG (ELIQUIS) TABLET PO SCH ×2 (08:57→20:17)
[2019-10-23] MEDS: SENNA W/DOCUSATE (SENOKOT S) TABLET PO SCH ×2 (08:57→20:19)
[2019-10-23] MEDS: CARVEDILOL 12.5 MG (COREG) TABLET PO SCH ×2 (08:57→20:17)
[2019-10-23] MEDS: MONTELUKAST 10 MG (SINGULAIR) TAB PO SCH (08:57)
[2019-10-23] MEDS: risperiDONE 0.25 MG (RisperDAL) TAB PO SCH ×2 (08:57→20:17)
--- NOTE | 2019-10-23 09:06 | Physical Therapy Daily Note ---
PT Daily Note-Current Subjective Pt. in bed eyes closed, dtr asleep in recliner, RT beginning resp Rx. Pt. very groggy, very difficult to open eyes and keep them open, difficulty getting pt. to participate. Dtr rouses and states pt slept well all night. AFter arrived and observed part of Rx he approached this PERSONAL CHEF and shared that he has no t slept well for 2 months or more as he has flet he cannot leave her for a second for fear she will fall or have an incident. nearly in tears as he explains that he has handled her himself and knows and sees now that she is declining and does not know what he will do but hopes that today since his other daughter is home from holiday she will help motivate his and or help come up with a plan for DC Pain Location: No Pain Reported Appearance very groggy, very difficult to awaken, keeps eyes closed even during stance, easily distracted, unsafe, poor awareness of situation and safety etc Mental Status Patient Orientation: Person, Place Transfers SCALE: Activities may be completed with or without assistive devices. 8-Wwgziwirte-uookazs completes the activity by him/herself with no assistance from a helper. 5-Set-up or Clean-up Assistance-helper sets up or cleans up; patient completes activity. [place] assists only prior to or following the activity. 4-Supervision or Touching Assistance-helper provides verbal cues and/or touching/steadying and/or contact guard assistance as patient completes activity. Assistance may be provided throughout the activity or intermittently. 3-Partial/Moderate Assistance-helper does LESS THAN HALF the effort. [place] lifts, holds or supports trunk or limbs, but provides less than half the effort. 2-Substantial/Maximal Assistance-helper does MORE THAN HALF the effort. [place] lifts or holds trunk or limbs and provides more than half the effort. 1-Gjyabbosn-qfoewf does ALL the effort. Patient does none of the effort to complete the activity. Or, the assistance of 2 or more helpers is required for the patient to complete the activity. If activity was not attempted, code reason: 7-Patient Refused. 9-Not Applicable-not attempted and the patient did not perform the activity before the current illness, exacerbation or injury. 10-Not Attempted due to Environmental Limitations-(lack of equipment, weather restraints, etc.). 88-Not Attempted due to Medical Conditions or Safety Concerns. Roll Left & Right (QC): 3 Sit to Lying (QC): 3 Lying to Sitting/Side of Bed(Q: 3 Sit to Stand (QC): 3 Chair/Mat-ao-Qyazm Xfer(QC): 2 Toilet Transfer (QC): 2 pt. was encouraged to sit herself up on edge of bed multiple times with HOB up (like home situation) but pt. very lethargic and does not begin to move until this PERSONAL CHEF assists which required mod to max assist to get her to sitting as well as to maintain it as pt. layed herself back down multiple times in unsafe position. sitting balance required mod to max asisst. Pt wanted on BSC, extra assist was called as sit to stand and SPT to BSC was mod to max assist as well as managing pants up down and cleaning. Weight Bearing Right Lower Extremity: Right Full Weight Bearing Left Lower Extremity: Left Full Weight Bearing Gait Training Does the Patient Walk?: Yes Walk 10 feet (QC): 2 Walk 50 ft with 2 Turns(QC): 88 Walk 150 ft (QC): 88 Gait Persons Needed: 2 Gait Assistive Device: Parallel Bars Left lean, left hand needs hand over hand, poor advance of LLE, pt. stops and needs many cues to continue and tend to task Wheelchair Training Does the Pt Use a Wheelchair?: Yes Wheel 50 ft with 2 turns (QC): 2 Wheel 150 ft (QC): 88 Type of Wheelchair: Manual pt. demonstrated locking brakes bilat x 2 but needed assist on left 4 trials Balance Special Test Comments pt. in sitting at EOB as well as stance trials with significant balance deficit, improved slightly with tactile cues and repeated instruction but unsafe overall Exercises Supine Ex: Ankle pumps, Heel Slides, Hip abd/add Supine Reps: 12 Treatments requires assist 1-2 for all mobility, poor awareness for safety , lethargic, poor tending to task Assessment Current Status: Poor Progress PT Short Term Goals Short Term Goals Time Frame: Oct 21, 2019 Roll Left & Right: 6 Sit to lyin Lying to sitting on side of be: 6 Sit to stand: 6 PT Temperature Regulator Pyrometer Goals Jail Goals PT Temperature Regulator Pyrometer Goals Time Frame: Nov 04, 2019 Roll Left & Right (QC): 6 Sit to Lying (QC): 6 Lying-Sitting on Side/Bed(QC): 6 Sit to Stand (QC): 6 Chair/Czf-mw-Lxcuq Xfer(QC): 6 Toilet Transfer (QC): 6 Car Transfer (QC): 4 Does the Patient Walk: Yes Walk 10 feet (QC): 6 Walk 50ft with 2 Turns (QC): 6 Walk 150 ft (QC): 6 Walking 10ft on Uneven Surface: 6 1 Step (curb) (QC): 4 4 Steps (QC): 4 12 Steps (QC): 9 Picking up an Object (QC): 4 Does the Pt use WC or Scooter?: No Wheel 50 feet with 2 turns (QC: 9 Wheel 150 feet: 9 PT Plan Treatment/Plan Treatment Plan: Continue Plan of Care Treatment Plan: Bed Mobility, Education, Functional Activity Rex, Functional Strength, Group Therapy, Gait, Safety, Therapeutic Exercise, Transfers Treatment Duration: Nov 04, 2019 Frequency: Modified Program (IRF) Estimated Hrs Per Day: 1.5 hours per day Patient and/or Family Agrees t: Yes Safety Risks/Education Patient Education: Gait Training, Transfer Techniques, Correct Positioning, W/C Management, Disease Process, Safety Issues Teaching Recipient: Patient Teaching Methods: Demonstration, Discussion Response to Teaching: Unable to Return Demonstration, Unable to Comprehend, Reinforcement Needed Time/GCodes Time In: 800 Time Out: 900 Total Billed Treatment Time: 60 Total Billed Treatment 1,FA60m DANYELLE CALLEJAS PERSONAL CHEF Oct 23, 2019 09:06
--- NOTE | 2019-10-23 09:43 | PM&R Progress Note ---
Subjective HPI/CC On Admission Date Seen by Provider: Oct 23, 2019 Time Seen by Provider: 08:45 Subjective/Events-last exam Pt now in a wheelchair. Feels like her legs can't maintain strength. MCC is needed. Fall risk continues. Crackles in lungs, will need Dr. Lin to evaluate that. Reviewed meds and labs. Needs NHP Checked meds and labs Reviewed therapy notes Conferred with RN extensively Review of Systems General: Fatigue 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: Confusion Objective Exam Vital Signs Vital Signs Date Time Temp Pulse Resp B/P (MAP) Pulse Ox O2 Delivery O2 Flow Rate FiO2 10/23/19 20:26 97 Nasal Cannula 2.00 10/23/19 16:01 36.9 65 14 102/68 (79) 10/23/19 13:21 32 Capillary Refill : Less Than 3 SecondsLess Than 3 Seconds General Appearance: No Apparent Distress, WD/WN, Anxious, Chronically ill, Other (more declined and [place] colored) HEENT: PERRL/EOMI, Normal ENT Inspection, Pharynx Normal Neck: Full Range of Motion, Normal Inspection, Non Tender, Supple, Carotid Bruit Respiratory: Chest Non Tender, No Accessory Muscle Use, No Respiratory Distress, Crackles, Decreased Breath Sounds, Wheezing Cardiovascular: Regular Rate, Rhythm, No Edema, No Gallop, No JVD, No Murmur, Normal Peripheral Pulses Gastrointestinal: Normal Bowel Sounds, No Organomegaly, No Pulsatile Mass, Non Tender, Soft Back: Normal Inspection, No CVA Tenderness, No Vertebral Tenderness Extremity: Normal Capillary Refill, Normal Inspection, Normal Range of Motion, Non Tender, No Calf Tenderness, No Pedal Edema Neurologic/Psychiatric: Alert, No Motor/Sensory Deficits, creative lead II-XII Norm as Tested, Depressed Affect, Disoriented (subtle poor recall) Skin: Normal Color, Warm/Dry Lymphatic: No Adenopathy Results/Procedures Lab Patient resulted labs reviewed. FIM Transfers Therapy Code Descriptions/Definitions Functional [place] Measure: 0=Not Assessed/NA 4=Minimal Assistance 1=Total Assistance 5=Supervision or Setup 2=Maximal Assistance 6=Modified [place] 3=Moderate Assistance 7=Complete IndependenceSCALE: Activities may be completed with or without assistive devices. 7-Fnwlzpbtzt-zxtawwm completes the activity by him/herself with no assistance from a helper. 5-Set-up or Clean-up Assistance-helper sets up or cleans up; patient completes activity. [place] assists only prior to or following the activity. 4-Supervision or Touching Assistance-helper provides verbal cues and/or touching/steadying and/or contact guard assistance as patient completes activity. Assistance may be provided throughout the activity or intermittently. 3-Partial/Moderate Assistance-helper does LESS THAN HALF the effort. [place] lifts, holds or supports trunk or limbs, but provides less than half the effort. 2-Substantial/Maximal Assistance-helper does MORE THAN HALF the effort. [place] lifts or holds trunk or limbs and provides more than half the effort. 1-Lejjhfxho-fvlzpf does ALL the effort. Patient does none of the effort to complete the activity. Or, the assistance of 2 or more helpers is required for the patient to complete the activity. If activity was not attempted, code reason: 7-Patient Refused. 9-Not Applicable-not attempted and the patient did not perform the activity before the current illness, exacerbation or injury. 10-Not Attempted due to Environmental Limitations-(lack of equipment, weather restraints, etc.). 88-Not Attempted due to Medical Conditions or Safety Concerns. Roll Left to Right (QC): 3 Sit to Lying (QC): 4 Sit to Stand (QC): 3 Chair/Vaf-uy-Czahe Xfer(QC): 3 Car Transfer (QC): 3 Gait Training Does the Patient Walk?: Yes Distance: 150 x2 Walk 10 feet (QC): 4 Walk 50 ft with 2 Turns(QC): 3 Walk 150 ft (QC): 3 Walking 10ft/uneven surface-QC: 3 Gait Persons Needed: 2 (2nd person used to assist with O2 tank as this CENTR[employer] AISLE CASHIER needed to assist pt with balance and guiding walker) Gait Assistive Device: FWW Wheelchair Training Does the Pt Use a Wheelchair?: Yes Wheel 50 ft with 2 turns (QC): 4 Wheel 150 ft (QC): 1 Type of Wheelchair: Manual Stair Training #of Steps: 4 1 Step (curb) (QC): 3 4 Steps (QC): 3 12 Steps (QC): 88 Balance Picking up an Object (QC): 88 ADL-Treatment Eating (QC): 5 Oral Hygiene (QC): 6 Shower/Bathe Self (QC): 4 Upper Body Dressing (QC): 3 (Pt required assist to pull shirt down.) Lower Body Dressing (QC): 2 On/Off Footwear (QC): 2 Toileting Hygiene (QC): 4 Toilet Transfer (QC): 4 Assessment/Plan Assessment and Plan Assess & Plan/Chief Complaint Assessment: Myopathy Delirium CHF with volume overload requiring IV Lasix COPD Oxygen dependency New confusion with delirium as confirmed Medical noncompliance Denial of severity of medical problems Former smoker Rheumatoid arthritis Chronic renal insufficiency Hyperglycemia HGA1C 6.1 Hypertension icx-zv-qgzoofw improved today Orthostasis with vertigo Crackles on exam of lungs today consulted Dr Lin Plan: IV Lasix prn Inpatient rehabilitation protocol Strengthening Home meds Monitor closely Work on cognition Monitor labs O2 Nebs Delirium treatment but definitely needs NH at [place] Lung crackles noted (1) Myopathy (2) Memory loss (3) Denial about severity of illness (4) COPD with acute exacerbation Status: Resolved Resolution Date/Time: 10/14/19 @ 14:22 (5) Paroxysmal atrial fibrillation Status: Chronic (6) Orthostatic hypotension Status: Resolved Resolution Date/Time: 10/14/19 @ 14:22 (7) Atrial fibrillation with rapid ventricular response Status: Acute (8) Noncompliance with medication regimen Status: Chronic (9) Hypoxia Status: Chronic (10) Uncontrolled hypertension Status: Acute (11) Hyperglycemia Status: Acute (12) Delirium JEROME NEAL DO Oct 23, 2019 09:43
--- NOTE | 2019-10-23 09:48 | Occupational Ther Daily Note ---
OT Current Status-Daily Note Subjective Pt working with PT. Co-treat with PT from 0830 to 0900, due to decreased sitting/standing balance, lethargy and need for skilled technique and instructions for safety during transfers, mobility and standing. PT focused on standing, LE strengthening/positioning, w/c mobility and transfers. OT focused on Mental Status/Objective Patient Orientation: Person, Confused ADL-Treatment Pt agreed to wheeling herself back to room. Unable to move hands and push WC. Max assist and max verbal cues with WC. Pt unable to sit upright or balance on the toilet. Max assist for balance. Max assist for wiping. Pt agreed to sponge bath. Pt requires assist to stay in upright position sitting and standing while cleansing self. Pt able to reach all areas though inefficient today due to lethargy. Pt required assist x2 to dress due to decreased sitting balance. After therapy, pt lying in bed with call light/phone in reach. All needs met in room. Safety measures in place. Therapy Code Descriptions/Definitions Functional [place] Measure: 0=Not Assessed/NA 4=Minimal Assistance 1=Total Assistance 5=Supervision or Setup 2=Maximal Assistance 6=Modified [place] 3=Moderate Assistance 7=Complete IndependenceSCALE: Activities may be completed with or without assistive devices. 4-Drgublkrxx-teyyhzm completes the activity by him/herself with no assistance from a helper. 5-Set-up or Clean-up Assistance-helper sets up or cleans up; patient completes activity. [place] assists only prior to or following the activity. 4-Supervision or Touching Assistance-helper provides verbal cues and/or touching/steadying and/or contact guard assistance as patient completes activity. Assistance may be provided throughout the activity or intermittently. 3-Partial/Moderate Assistance-helper does LESS THAN HALF the effort. [place] lifts, holds or supports trunk or limbs, but provides less than half the effort. 2-Substantial/Maximal Assistance-helper does MORE THAN HALF the effort. [place] lifts or holds trunk or limbs and provides more than half the effort. 3-Uxsafbaow-bhmbes does ALL the effort. Patient does none of the effort to complete the activity. Or, the assistance of 2 or more helpers is required for the patient to complete the activity. If activity was not attempted, code reason: 7-Patient Refused. 9-Not Applicable-not attempted and the patient did not perform the activity before the current illness, exacerbation or injury. 10-Not Attempted due to Environmental Limitations-(lack of equipment, weather restraints, etc.). 88-Not Attempted due to Medical Conditions or Safety Concerns. Bathing Location: L Arm, R Arm, L Upper Leg, R Upper Leg, L Lower Leg (including foot), R Lower Leg (including foot), Abdomen Other Treatment Pt required assist from OT for UE positioning during mobility/transfers during PT/OT co-treat. Pt requires verbal/physical cues for safe transfers/mobility. Pt shuffles feet and attempts to sit down in middle of transfer. Pt tends to keep eyes closed and leans either forward or sideways during standing and sitting. OT Commercial Driver'S License Driver Goals Commercial Driver'S License Driver Goals Time Frame: Oct 28, 2019 Eating (QC): 6 Oral Hygiene (QC): 6 Toileting Hygiene (QC): 6 Shower/Bathe Self (QC): 6 Upper Body Dressing (QC): 6 Lower Body Dressing (QC): 6 On/Off Footwear (QC): 6 Additional Goals: 1-Demonstrate ADL Tasks, 2-Verbalize Understanding, 3- ImproveStrength/Rex 1=Demonstrate adherence to instructed precautions during ADL tasks. 2=Patient will verbalize/demonstrate understanding of assistive devices/modifications for ADL. 3=Patient will improve strength/tolerance for activity to enable patient to perform ADL's. OT Education/Plan Problem List/Assessment Assessment: Decreased Activ Tolerance, Decreased Safety Aware, Decreased UE Strength, Dependent Transfers, Impaired Bed Mobility, Impaired Cognition, Impaired Coordination, Impaired Funct Balance, Impaired Self-Care Skills Discharge Recommendations Plan/Recommendations: Continue POC Treatment Plan/Plan of Care Patient would benefit from OT for education, treatment and training to promote independence in ADL's, mobility, safety and/or upper extremity function for ADL's. Plan of Care: ADL Retraining, Caregiver Training, Concurrent Therapy, Functional Mobility, Group Exercise/Act as Ind, UE Funct Exercise/Act Treatment Duration: Oct 28, 2019 Frequency: At least 5 of 7 days/Wk (IRF) Estimated Hrs Per Day: 1.5 hours per day Agreement: Yes Rehab Potential: Fair Time/GCodes Start Time: 08:30 Stop Time: 10:00 Total Time Billed (hr/min): 90 Billed Treatment Time 1 visit-FA 2 (30 min) ADL 4 (60 min) co-treat with PT [id number], individual [id number] JENELLE RAMSEY Oct 23, 2019 09:48
--- NOTE | 2019-10-23 11:50 | NUR ---
SW DISCHARGE PLANNING Patient is sleeping soundly. Visited with spouse this a.m. regarding proposed next steps for community SNF, later consult with spouse and daughter Shahida Alvarez together. Reviewed all local SNFs and provided Medicare Compare information re same. Shahida will visit with personal acquaintances for input about facilities before making a selection. CARE Assessment pending, patient has never been in a skilled setting. Ready to complete referral as soon as preferred facility known. Patient insured Medicare with secondary, do not anticipate issues regarding lengthy preauthorization process.
--- NOTE | 2019-10-23 13:03 | Pulmonary Progress Note ---
Subjective Time Seen by a Provider: 13:01 Sepsis Event Evaluation Height, Weight, BMI Height: 5'4.00" Weight: 170lbs. 0oz. 77.586223ok; 29.99 BMI Method:Stated Exam Exam Vital Signs Date Time Temp Pulse Resp B/P (MAP) Pulse Ox O2 Delivery O2 Flow Rate FiO2 10/23/19 10:30 98 Nasal Cannula 3.00 10/23/19 09:00 Nasal Cannula 3.00 10/23/19 08:05 99 Nasal Cannula 3.00 10/23/19 05:45 36.6 72 20 114/77 (89) 99 Nasal Cannula 3.00 10/23/19 02:35 98 Nasal Cannula 2.00 10/22/19 23:19 98 Nasal Cannula 2.00 10/22/19 21:00 97 Nasal Cannula 3.00 10/22/19 19:40 98 Nasal Cannula 2.00 10/22/19 18:10 37.1 74 22 139/81 (100) 98 Nasal Cannula 3.00 10/22/19 14:22 36.6 77 18 129/74 (92) 98 Nasal Cannula 3.00 I & O 10/23/19 07:00 Intake Total 1090 ml Balance 1090 ml Height & Weight Height: 5'4.00" Weight: 170lbs. 0oz. 77.034561ei; 29.99 BMI Method:Stated General Appearance: No Apparent Distress, WD/WN, Anxious, Chronically ill, Other (more declined and [place] colored) HEENT: PERRL/EOMI, Normal ENT Inspection, Pharynx Normal Neck: Full Range of Motion, Normal Inspection, Non Tender, Supple, Carotid Bru it Respiratory: Chest Non Tender, Lungs Clear, No Accessory Muscle Use, No Res piratory Distress, Decreased Breath Sounds Cardiovascular: Regular Rate, Rhythm, No Edema, No Gallop, No JVD, No Murmur, Normal Peripheral Pulses Capillary Refill: Less Than 3 Seconds Extremity: Normal Capillary Refill, Normal Inspection, Normal Range of Motion, Non Tender, No Calf Tenderness, No Pedal Edema Neurologic/Psychiatric: Alert, No Motor/Sensory Deficits, server manager II-XII Norm as Tested, Depressed Affect, Disoriented (subtle poor recall) Skin: Normal Color, Warm/Dry Lymphatic: No Adenopathy Results Lab Laboratory Tests 10/22/19 05:05 10/23/19 04:55 Assessment/Plan Assessment/Plan COPD -Oxygen -SVN -Prednisone - d/c'd Pulmonary edema -Add lasix Debility CHF -Lasix Hx of tabacco use CRI JEWEL THAKKAR DO Oct 23, 2019 13:03
--- NOTE | 2019-10-23 13:18 | Physical Therapy Daily Note ---
PT Daily Note-Current Subjective Pt. in bed with eyes closed. at bed side. Pt. opened eyes briefly a couple times, otherwise camila partially participated with eyes closed as if asleep. Pain Location: No Pain Reported Appearance eyes closed, Transfers SCALE: Activities may be completed with or without assistive devices. 2-Faargixvib-wuougrj completes the activity by him/herself with no assistance from a helper. 5-Set-up or Clean-up Assistance-helper sets up or cleans up; patient completes activity. [place] assists only prior to or following the activity. 4-Supervision or Touching Assistance-helper provides verbal cues and/or touching/steadying and/or contact guard assistance as patient completes activity. Assistance may be provided throughout the activity or intermittently. 3-Partial/Moderate Assistance-helper does LESS THAN HALF the effort. [place] lifts, holds or supports trunk or limbs, but provides less than half the effort. 2-Substantial/Maximal Assistance-helper does MORE THAN HALF the effort. [place] lifts or holds trunk or limbs and provides more than half the effort. 6-Ovociehpt-knxqel does ALL the effort. Patient does none of the effort to complete the activity. Or, the assistance of 2 or more helpers is required for the patient to complete the activity. If activity was not attempted, code reason: 7-Patient Refused. 9-Not Applicable-not attempted and the patient did not perform the activity before the current illness, exacerbation or injury. 10-Not Attempted due to Environmental Limitations-(lack of equipment, weather restraints, etc.). 88-Not Attempted due to Medical Conditions or Safety Concerns. Weight Bearing Right Lower Extremity: Right Full Weight Bearing Left Lower Extremity: Left Full Weight Bearing Exercises Supine Ex: Bridging, Ankle pumps (assisted), Rolling (assisted), Heel Slides (assisted), Straight leg raise (assisted), Hip abd/add (ssisted) Supine Reps: 10 (x2) Assessment Current Status: Poor Progress pt. needed much tactile and verbal cuing and still required assist for some /most of exercises. pt. fell back asleep, appears she does not understand instructions etc. PT Short Term Goals Short Term Goals Time Frame: Oct 21, 2019 Roll Left & Right: 6 Sit to lyin Lying to sitting on side of be: 6 Sit to stand: 6 PT Group Home Goals Group Home Goals PT Group Home Goals Time Frame: Nov 04, 2019 Roll Left & Right (QC): 6 Sit to Lying (QC): 6 Lying-Sitting on Side/Bed(QC): 6 Sit to Stand (QC): 6 Chair/Wpn-dl-Vuyzz Xfer(QC): 6 Toilet Transfer (QC): 6 Car Transfer (QC): 4 Does the Patient Walk: Yes Walk 10 feet (QC): 6 Walk 50ft with 2 Turns (QC): 6 Walk 150 ft (QC): 6 Walking 10ft on Uneven Surface: 6 1 Step (curb) (QC): 4 4 Steps (QC): 4 12 Steps (QC): 9 Picking up an Object (QC): 4 Does the Pt use WC or Scooter?: No Wheel 50 feet with 2 turns (QC: 9 Wheel 150 feet: 9 PT Plan Treatment/Plan Treatment Plan: Continue Plan of Care Treatment Plan: Bed Mobility, Education, Functional Activity Rex, Functional Strength, Group Therapy, Gait, Safety, Therapeutic Exercise, Transfers Treatment Duration: Nov 04, 2019 Frequency: Modified Program (IRF) Estimated Hrs Per Day: 1.5 hours per day Patient and/or Family Agrees t: Yes Safety Risks/Education Patient Education: Safety Issues Teaching Recipient: Patient, Family Response to Teaching: Unable to Return Demonstration, Unable to Comprehend, Reinforcement Needed Time/GCodes Time In: 1300 Time Out: 1315 Total Billed Treatment Time: 15 Total Billed Treatment 1,EX15m DANYELLE CALLEJAS TRAFFIC ENGINEERING TECHNICIAN Oct 23, 2019 13:18
[2019-10-23 13:21] VITALS: BP 114/77
--- NOTE | 2019-10-23 13:36 | NUR ---
"RD ASSESSMENT PMHx: RA; afib; CAD; COPD; hypercholesterolemia; HTN; GERD; long hx of non-compliance PT INTERACTION: Pt was asleep during nutrition follow-up, but note family was present at bedside. states pt has been eating pretty good since last assessment. Pt avg PO intake of 82% x4d, per chart review. states pt has had no recent issues with n/v/c/d since last assessment. Note last BM was /5 and pt currently on bowel regimen of colace BID; miralax BID; and senna BID, per chart review. ABNORMAL NUTRITION-RELATED LAB VALUES All Labs WNL Est. kcal needs: 1876-8132 kcal | 20-25 kcal/kg Est. Pro needs: 61-78 g Pro | 0.8-1.0 g Pro/kg PES STATEMENT: Given pt's PO intake, no nutrition diagnosis at this time (NO-1.1) INTERVENTION: Continue with current diet order of CHO 45g/m 1snack diet, with modifier of 2000mg Sodium restriction. Continue with current supplementation order of Glucerna with meals TID. Provides 220 kcal and 10 g Pro per serving. Will continue to follow and reassess as pt needs and status change. MONITOR/EVALUATE: PO Intake; Plan of Care; Hydration Status; Weight Status; Lab Values Alma Ansari, , RD, LD"
[2019-10-23] MEDS: KCL 20 MEQ TAB (K-DUR) PO SCH (14:08)
[2019-10-23] MEDS: FUROSEMIDE 40 MG (LASIX) TAB PO SCH (14:09)
[2019-10-23 16:01] VITALS: BP 102/68
--- NOTE | 2019-10-23 17:01 | Cardiology Progress Note ---
Cardiology SOAP Progress Note Subjective: No cardiac complaints. Objective: I&O/Vital Signs 10/23/19 10/23/19 10/23/19 10/23/19 05:45 08:05 09:00 10:30 Temp 36.6 Pulse 72 Resp 20 B/P (MAP) 114/77 (89) Pulse Ox 99 99 98 O2 Delivery Nasal Cannula Nasal Cannula Nasal Cannula Nasal Cannula O2 Flow Rate 3.00 3.00 3.00 3.00 10/23/19 10/23/19 13:21 16:01 Temp 36.6 36.9 Pulse 70 65 Resp 14 B/P (MAP) 102/68 (79) Pulse Ox 97 99 O2 Delivery Nasal Cannula O2 Flow Rate 4.00 FiO2 32 10/23/19 00:00 Intake Total 940 ml Balance 940 ml Weight (Pounds): 170 Weight (Ounces): 0 Weight (Calculated Kilograms): 77.384280 Respiratory: chest is bilaterally symmetric, lungs clear to auscultation Cardiovascular: irregularly irregular, S1 and S2 Gastrointestional: soft, audible bowel sounds Extremities: normal range of motion, non-tender, normal inspection, no lower extremity edema bilateral Neurologic/Psychiatric: no motor/sensory deficits, alert, normal mood/affect, grossly intact Skin: normal color, warm/dry Results/Procedures: Labs Laboratory Tests 10/22/19 20:23: Glucometer 105 10/23/19 04:55: White Blood Count 9.9, Red Blood Count 4.03L, Hemoglobin 11.5, Hematocrit 38, Mean Corpuscular Volume 94, Mean Corpuscular Hemoglobin 29, Mean Corpuscular Hemoglobin Concent 30L, Red Cell Distribution Width 15.9H, Platelet Count 208, Mean Platelet Volume 11.2H, Neutrophils (%) (Auto) 82H, Lymphocytes (%) (Auto) 10L, Monocytes (%) (Auto) 7, Eosinophils (%) (Auto) 2, Basophils (%) (Auto) 0, Neutrophils # (Auto) 8.1H, Lymphocytes # (Auto) 0.9L, Monocytes # (Auto) 0.7, Eosinophils # (Auto) 0.2, Basophils # (Auto) 0.0, Sodium Level 141, Potassium Level 3.6, Chloride Level 101, Carbon Dioxide Level 27, Anion Gap 13, Blood Urea Nitrogen 16, Creatinine 0.76, Estimat Glomerular Filtration Rate > 60, BUN/Creatinine Ratio 21, Glucose Level 98, Calcium Level 8.9, Phosphorus Level 3.4, Magnesium Level 1.6 10/23/19 10:53: Glucometer 146H 10/23/19 15:20: Glucometer 99 A/P: Assessment/Dx: Admitted for Intractable dizziness, improved COPD, Mild acute on chronic systolic/diastolic heart failure, Atrial fibrillation with controlled ventricular rate CAD, History of smoking Plan: Plan: Improved neurological status. Dizziness. Telemetry. Defer to the primary team. COPD, defer treatment to Dr. Verde. Likely the cause of shortness of breath. Mild acute on chronic systolic/diastolic heart failure. BNP over 400 on admi ssion. Currently BNP just over 400. Unlikely florid congestive heart failure. Can continue low-dose IV Lasix. Atrial fibrillation with controlled ventricular rate, continue Cardizem and oral anticoagulation. CAD, history of PCI and stents. No chest pain. All troponins negative. No further invasive cardiac management at this point in time. History of smoking Thank you for your consultation. Please call me if you have any questions. Edwina Bermudez MD, FACP, FACC, FSCAI, FHRS, CCDS Interventional Cardiology Cardiac Electrophysiology Vascular Medicine and Endovascular Interventions Faby BERMUDEZ MD Oct 23, 2019 17:01
[2019-10-23] MEDS: MELATONIN 3 MG TABLET PO PRN (20:17)
[2019-10-23] MEDS: ALPRAZolam 0.25 MG (XANAX) TAB PO PRN (21:54)
[2019-10-24 05:20] VITALS: BP 125/79
[2019-10-24] MEDS: inSUlin ASPART (NovoLOG) 1 UNIT/0.01 ML (CHARGE PER UNIT) SC SCH (05:25)
[2019-10-24 06:27] LABS: BASOPHILS % (AUTO) 0 % (0-10); EOSINOPHILS # (AUTO) 0.2 10^3/uL (0.0-0.3); EOSINOPHILS % (AUTO) 2 % (0-10); HEMATOCRIT 40 % (35-52); HEMOGLOBIN 12.2 G/DL (11.5-16.0); LYMPHOCYTES # (AUTO) 0.9 X 10^3 (1.0-4.0); LYMPHOCYTES % (AUTO) 10 % (12-44); MEAN CORPUSCULAR HEMOGLOBIN 29 PG (25-34); MEAN CORPUSCULAR HGB CONC 31 G/DL (32-36); MEAN CORPUSCULAR VOLUME 95 FL (80-99); MEAN PLATELET VOLUME 11.2 FL (7.4-10.4); MONOCYTES # (AUTO) 0.6 X 10^3 (0.0-1.0); MONOCYTES % (AUTO) 7 % (0-12); NEUTROPHILS # (AUTO) 7.3 X 10^3 (1.8-7.8); NEUTROPHILS % (AUTO) 81 % (42-75); PLATELET COUNT 193 10^3/uL (130-400); RED CELL DISTRIBUTION WIDTH 15.6 % (10.0-14.5)
[2019-10-24] MEDS: KCL 20 MEQ TAB (K-DUR) PO SCH (06:42)
[2019-10-24 06:51] LABS: BUN/CREATININE RATIO 24; CALCIUM 9.4 MG/DL (8.5-10.1); CARBON DIOXIDE 28 MMOL/L (21-32); CHLORIDE 101 MMOL/L (98-107); CREATININE SERUM 0.76 MG/DL (0.60-1.30); GFR ESTIMATED > 60; GLUCOSE 97 MG/DL (70-105); MAGNESIUM 1.8 MG/DL (1.6-2.4); PHOSPHORUS 3.8 MG/DL (2.3-4.7); POTASSIUM 3.8 MMOL/L (3.6-5.0); SODIUM 141 MMOL/L (135-145)
[2019-10-24] MEDS: RT-ALBUTEROL/IPRATROPIUM 3 ML (DUONEB) VIAL INH SCH ×4 (06:59→19:37)
[2019-10-24 08:20] VITALS: BP 122/80
[2019-10-24] MEDS: APIXABAN 5 MG (ELIQUIS) TABLET PO SCH ×2 (08:21→21:05)
[2019-10-24] MEDS: FUROSEMIDE 40 MG (LASIX) TAB PO SCH (08:21)
[2019-10-24] MEDS: CARVEDILOL 12.5 MG (COREG) TABLET PO SCH ×2 (08:21→21:05)
[2019-10-24] MEDS: risperiDONE 0.25 MG (RisperDAL) TAB PO SCH ×2 (08:21→21:05)
[2019-10-24] MEDS: MONTELUKAST 10 MG (SINGULAIR) TAB PO SCH (08:21)
[2019-10-24] MEDS: DILTIAZEM 240 MG (CARDIZEM CD) CAP PO SCH (08:21)
[2019-10-24] MEDS: POLYETHYLENE GLYCOL 17 GM (MIRALAX) PACK PO SCH ×2 (08:22→21:11)
[2019-10-24] MEDS: DOCUSATE SODIUM 100 MG (COLACE) CAP PO SCH ×2 (08:22→21:11)
[2019-10-24] MEDS: SENNA W/DOCUSATE (SENOKOT S) TABLET PO SCH ×2 (08:22→21:12)
--- NOTE | 2019-10-24 08:33 | NUR ---
SW DISCHARGE PLANNING Call from daughter Shahida yesterday afternoon that they have requested referral to [facility]. Referral completed this a.m. with MICHELLE/Siobhan, await confirmation of acceptance. CARE Assessment pending. Updated daughter that, if accepted, patient could transfer today.
--- NOTE | 2019-10-24 09:06 | Physical Therapy Daily Note ---
PT Daily Note-Current Subjective Pt sitting in recliner upon arrival. Pt's daughter is present at start of Rx but leaves during. Pt agrees to PT/OT co-treat. Mental Status Patient Orientation: Person, Confused Attachments: Oxygen (2L) Transfers SCALE: Activities may be completed with or without assistive devices. 1-Tqltdsjuzf-argogff completes the activity by him/herself with no assistance from a helper. 5-Set-up or Clean-up Assistance-helper sets up or cleans up; patient completes activity. [place] assists only prior to or following the activity. 4-Supervision or Touching Assistance-helper provides verbal cues and/or touching/steadying and/or contact guard assistance as patient completes activity. Assistance may be provided throughout the activity or intermittently. 3-Partial/Moderate Assistance-helper does LESS THAN HALF the effort. [place] lifts, holds or supports trunk or limbs, but provides less than half the effort. 2-Substantial/Maximal Assistance-helper does MORE THAN HALF the effort. [place] l ifts or holds trunk or limbs and provides more than half the effort. 3-Pstadeftm-aojilh does ALL the effort. Patient does none of the effort to complete the activity. Or, the assistance of 2 or more helpers is required for the patient to complete the activity. If activity was not attempted, code reason: 7-Patient Refused. 9-Not Applicable-not attempted and the patient did not perform the activity before the current illness, exacerbation or injury. 10-Not Attempted due to Environmental Limitations-(lack of equipment, weather restraints, etc.). 88-Not Attempted due to Medical Conditions or Safety Concerns. Roll Left & Right (QC): 4 Sit to Lying (QC): 3 Lying to Sitting/Side of Bed(Q: 3 Sit to Stand (QC): 3 Chair/Fjl-kt-Nygsp Xfer(QC): 3 Toilet Transfer (QC): 3 Car Transfer (QC): 2 Weight Bearing Right Lower Extremity: Right Full Weight Bearing Left Lower Extremity: Left Full Weight Bearing Gait Training Does the Patient Walk?: Yes Distance: 50' Walk 10 feet (QC): 3 Walk 50 ft with 2 Turns(QC): 3 Walk 150 ft (QC): 88 Walking 10ft/uneven surface-QC: 88 Gait Persons Needed: 1 Gait Assistive Device: FWW Pt fatigues quickly and reports "jello legs" or B LE giving out w/o warning while ambulating. Wheelchair Training Does the Pt Use a Wheelchair?: Yes Wheel 50 ft with 2 turns (QC): 3 Wheel 150 ft (QC): 9 Type of Wheelchair: Manual Balance Picking up an Object (QC): 88 Special Test Comments Pt is not able to bend over due to lack of balance. Treatments Pt unable to sit upright or balance on the toilet. Max assist x2 for toilet transfer due to balance. Max assist to stand and manipulate clothing, pt able to cleanse self sitting on toilet with supervision. Pt agreed to sponge bath. Pt requires assist x2 to stay in upright position sitting and standing while cleansing self. Pt able to reach all areas though inefficient today due to lethargy. Pt required assist x2 to dress due to decreased sitting balance. Pt tends to sit before getting fully turned to sit on appropriate surface, "butt dive" requiring assist for safe transfer. After therapy, pt lying in bed with call light/phone in reach. All needs met in room. Safety measures in place. Unable to move hands and push WC. Max assist and max verbal cues with WC. Pt required assist from OT for UE positioning during mobility/transfers during PT/OT co-treat. Pt requires verbal/physical cues for safe transfers/mobility. Pt shuffles feet and attempts to sit down in middle of transfer. Pt tends to keep eyes closed and leans either forward or sideways during standing and sitting. Assessment Current Status: Fair Progress Pt slumps to L side x2 during Rx w/o warning. Pt demonstrates lack of social awareness for safety. Pt sitting in recliner. Pt states that she is tired and wants to go to bed. Encouraged pt to participate in therapy. Co-treat with PT from 829 to 944 then individual treatment [id number], skills of 2 clinicians required due to decreased sitting/standing balance, lethargy and need for skilled technique and instructions for safety during transfers, mobility and standing. PT focused on standing, LE strengthening/positioning, w/c mobility and transfers. OT focused on ADLs, functional transfers, w/c mobility and UE positioning during mobility. PT Short Term Goals Short Term Goals Time Frame: Oct 21, 2019 Roll Left & Right: 6 Sit to lyin Lying to sitting on side of be: 6 Sit to stand: 6 PT Server Support Technician Goals Server Support Technician Goals PT Server Support Technician Goals Time Frame: Nov 04, 2019 Roll Left & Right (QC): 6 Sit to Lying (QC): 6 Lying-Sitting on Side/Bed(QC): 6 Sit to Stand (QC): 6 Chair/Dhl-wn-Ntpqo Xfer(QC): 6 Toilet Transfer (QC): 6 Car Transfer (QC): 4 Does the Patient Walk: Yes Walk 10 feet (QC): 6 Walk 50ft with 2 Turns (QC): 6 Walk 150 ft (QC): 6 Walking 10ft on Uneven Surface: 6 1 Step (curb) (QC): 4 4 Steps (QC): 4 12 Steps (QC): 9 Picking up an Object (QC): 4 Does the Pt use WC or Scooter?: No Wheel 50 feet with 2 turns (QC: 9 Wheel 150 feet: 9 PT Plan Problem List Problem List: Activity Tolerance, Functional Strength, Safety, Balance, Gait, Transfer, Bed Mobility Treatment/Plan Treatment Plan: Continue Plan of Care Treatment Plan: Bed Mobility, Education, Functional Activity Rex, Functional Strength, Group Therapy, Gait, Safety, Therapeutic Exercise, Transfers Treatment Duration: Nov 04, 2019 Frequency: Modified Program (IRF) Estimated Hrs Per Day: 1.5 hours per day Patient and/or Family Agrees t: Yes Safety Risks/Education Patient Education: Gait Training, Transfer Techniques, Correct Positioning, W/C Management, Safety Issues Teaching Recipient: Patient Teaching Methods: Discussion Response to Teaching: Reinforcement Needed Time/GCodes Time In: 830 Time Out: 945 Total Billed Treatment Time: 75 Total Billed Treatment 1, FA x5 (75m) Co-treat w/OT for 75m KLARISSA RITCHIE PTA Oct 24, 2019 09:06
--- NOTE | 2019-10-24 09:21 | PM&R Progress Note ---
Subjective HPI/CC On Admission Date Seen by Provider: Oct 24, 2019 Time Seen by Provider: 08:45 Subjective/Events-last exam Pt wants to go home and she says she has plenty of help at home but she failed and she has such very weak legs she can't really ambulate anymore Pt has become a two person assist Complete blood count and CBC are all within normal limits today Delirium is something that will take time and unsure if she will fully recover halfway placement may very well be nursing home solution Prognosis fair at this point Denies any pain Checked meds and labs Reviewed therapy notes Conferred with RN extensively Review of Systems General: Fatigue Pulmonary: Dyspnea 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: Confusion Objective Exam Vital Signs Vital Signs Date Time Temp Pulse Resp B/P (MAP) Pulse Ox O2 Delivery O2 Flow Rate FiO2 10/24/19 21:08 100 Nasal Cannula 2.00 10/24/19 21:00 78 20 123/73 (90) 10/24/19 16:42 36.6 10/23/19 13:21 32 Capillary Refill : Less Than 3 SecondsLess Than 3 Seconds General Appearance: No Apparent Distress, WD/WN, Anxious, Chronically ill, Other (more declined and richmond colored) HEENT: PERRL/EOMI, Normal ENT Inspection, Pharynx Normal Neck: Full Range of Motion, Normal Inspection, Non Tender, Supple, Carotid Bruit Respiratory: Chest Non Tender, No Accessory Muscle Use, No Respiratory Distress, Crackles, Decreased Breath Sounds, Wheezing Cardiovascular: Regular Rate, Rhythm, No Edema, No Gallop, No JVD, No Murmur, Normal Peripheral Pulses Gastrointestinal: Normal Bowel Sounds, No Organomegaly, No Pulsatile Mass, Non Tender, Soft Back: Normal Inspection, No CVA Tenderness, No Vertebral Tenderness Extremity: Normal Capillary Refill, Normal Inspection, Normal Range of Motion, Non Tender, No Calf Tenderness, No Pedal Edema Neurologic/Psychiatric: Alert, No Motor/Sensory Deficits, it 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 FIM Transfers Therapy Code Descriptions/Definitions Functional Cook Measure: 0=Not Assessed/NA 4=Minimal Assistance 1=Total Assistance 5=Supervision or Setup 2=Maximal Assistance 6=Modified Cook 3=Moderate Assistance 7=Complete IndependenceSCALE: Activities may be completed with or without assistive devices. 8-Icqocojkdo-ebrxziv completes the activity by him/herself with no assistance from a helper. 5-Set-up or Clean-up Assistance-helper sets up or cleans up; patient completes activity. [place] assists only prior to or following the activity. 4-Supervision or Touching Assistance-helper provides verbal cues and/or touching/steadying and/or contact guard assistance as patient completes activity. Assistance may be provided throughout the activity or intermittently. 3-Partial/Moderate Assistance-helper does LESS THAN HALF the effort. [place] lifts, holds or supports trunk or limbs, but provides less than half the effort. 2-Substantial/Maximal Assistance-helper does MORE THAN HALF the effort. [place] lifts or holds trunk or limbs and provides more than half the effort. 7-Ynqwkqbak-fbjbrq does ALL the effort. Patient does none of the effort to complete the activity. Or, the assistance of 2 or more helpers is required for the patient to complete the activity. If activity was not attempted, code reason: 7-Patient Refused. 9-Not Applicable-not attempted and the patient did not perform the activity before the current illness, exacerbation or injury. 10-Not Attempted due to Environmental Limitations-(lack of equipment, weather restraints, etc.). 88-Not Attempted due to Medical Conditions or Safety Concerns. Roll Left to Right (QC): 3 Sit to Lying (QC): 3 Sit to Stand (QC): 3 Chair/Edn-rp-Uihvu Xfer(QC): 2 Car Transfer (QC): 3 Gait Training Does the Patient Walk?: Yes Distance: 150 x2 Walk 10 feet (QC): 2 Walk 50 ft with 2 Turns(QC): 88 Walk 150 ft (QC): 88 Walking 10ft/uneven surface-QC: 3 Gait Persons Needed: 2 Gait Assistive Device: Parallel Bars Wheelchair Training Does the Pt Use a Wheelchair?: Yes Wheel 50 ft with 2 turns (QC): 2 Wheel 150 ft (QC): 88 Type of Wheelchair: Manual Stair Training #of Steps: 4 1 Step (curb) (QC): 3 4 Steps (QC): 3 12 Steps (QC): 88 Balance Picking up an Object (QC): 88 ADL-Treatment Eating (QC): 5 Oral Hygiene (QC): 6 Bathing Location: L Arm, R Arm, L Upper Leg, R Upper Leg, L Lower Leg (including foot), R Lower Leg (including foot), Abdomen Shower/Bathe Self (QC): 4 Upper Body Dressing (QC): 3 (Pt required assist to pull shirt down.) Lower Body Dressing (QC): 2 On/Off Footwear (QC): 2 Toileting Hygiene (QC): 4 Toilet Transfer (QC): 4 Assessment/Plan Assessment and Plan Assess & Plan/Chief Complaint Assessment: Myopathy Delirium CHF with volume overload requiring IV Lasix COPD Oxygen dependency New confusion with delirium as confirmed Medical noncompliance Denial of severity of medical problems Former smoker Rheumatoid arthritis Chronic renal insufficiency Hyperglycemia HGA1C 6.1 Hypertension bxn-dg-nmdpbqx improved today Orthostasis with vertigo Crackles on exam of lungs today consulted Dr Lni Plan: IV Lasix prn Inpatient rehabilitation protocol Strengthening Home meds Monitor closely Work on cognition Monitor labs O2 Nebs Delirium treatment but definitely needs NH at DC Lung crackles noted but today improved (1) Myopathy (2) Memory loss (3) Denial about severity of illness (4) COPD with acute exacerbation Status: Resolved Resolution Date/Time: 10/14/19 @ 14:22 (5) Paroxysmal atrial fibrillation Status: Chronic (6) Orthostatic hypotension Status: Resolved Resolution Date/Time: 10/14/19 @ 14:22 (7) Atrial fibrillation with rapid ventricular response Status: Acute (8) Noncompliance with medication regimen Status: Chronic (9) Hypoxia Status: Chronic (10) Uncontrolled hypertension Status: Acute (11) Hyperglycemia Status: Acute (12) Delirium JEROME NEAL DO Oct 24, 2019 09:20
--- NOTE | 2019-10-24 10:26 | Speech Therapy Daily Note ---
Speech Daily Progress Note Subjective Date Seen by Provider: Oct 23, 2019 Time Seen by Provider: 00:30 The patient was resting in her bed with her daughter present. Objective Patient completed memory tasks with 75% given moderate verbal cues. Assessment Assessment Current Status: Fair Progress Treatment Plan Continue Plan of Care Speech Short Term Goals Short Term Goals Short Term Goals 1) The patient will complete memory tasks related to her daily needs at 90% or greater with minimal cues. 2) The patient will complete safety awareness tasks related to her daily needs at 90% or greater with minimal cues. 3) The patient will complete problem solving tasks related to her daily needs at 90% or greater with minimal cues. Speech Half-Way Goals Taffy Candy Maker Goals Patient will improve cognitive-communication necessary for safety and daily living tasks with minimal assist. Speech-Plan Patient/Family Goals Patient/Family Goals: Patient plans on returning to her home where she lives with her . Treatment Plan Speech Therapy Treatment Plan: Continue Plan of Care Patient appears to be able to stay focused better in the mornings. Treatment Duration: Oct 27, 2019 Frequency: 4 times per week Estimated Hrs Per Day: Other Rehab Potential: Fair Barriers to Learning: Patient has dementia Pt/Family Agrees to Plan: Yes Safety Risks/Education Teaching Recipient: Patient, Family Teaching Methods: Demonstration, Discussion Response to Teaching: Verbalize Understanding, Return Demonstration Education Topics Provided: Continued safety within her room. Time Speech Therapy Time In: 15:00 Speech Therapy Time Out: 15:30 Total Billed Time: 30 Billed Treatment Time PATIENCE Garza [address] Oct 24, 2019 10:26
--- NOTE | 2019-10-24 11:34 | NUR ---
SW DISCHARGE PLANNING Assistant Pressman and [facility]/Siobhan met with patient's spouse and daughters Shahida and Lyly. Overview given for transition to Medicare skilled status and environment, answered their questions to their satisfaction. Per family preference, they then talked with her about going this next step from ARU to skilled prior to the overall goal of returning home. They indicated a positive response from patient and they understand that the move will likely be 10/26/19. Waiting on confirmation from [facility] re acceptance. PCP Dr. Verde has agreed to continue to cover patient in SNF environment. CARE Assessment pending.
--- NOTE | 2019-10-24 12:07 | Occupational Ther Daily Note ---
OT Current Status-Daily Note Subjective Pt sitting in recliner. Pt states that she is tired and wants to go to bed. Encouraged pt to participate in therapy. Co-treat with PT from 829 to 944 then individual treatment [id number], skills of 2 clinicians required due to decreased sitting/standing balance, lethargy and need for skilled technique and instructions for safety during transfers, mobility and standing. PT focused on standing, LE strengthening/positioning, w/c mobility and transfers. OT focused on ADLs, functional transfers, w/c mobility and UE positioning during mobility. ADL-Treatment Pt unable to sit upright or balance on the toilet. Max assist x2 for toilet transfer due to balance. Max assist to stand and manipulate clothing, pt able to cleanse self sitting on toilet with supervision. Pt agreed to sponge bath. Pt requires assist x2 to stay in upright position sitting and standing while cleansing self. Pt able to reach all areas though inefficient today due to lethargy. Pt required assist x2 to dress due to decreased sitting balance. Pt completed own oral hygiene. Pt tends to sit before getting fully turned to sit on appropriate surface, "butt dive" requiring assist for safe transfer. After therapy, pt lying in bed with call light/phone in reach. All needs met in room. Safety measures in place. Therapy Code Descriptions/Definitions Functional [place] Measure: 0=Not Assessed/NA 4=Minimal Assistance 1=Total Assistance 5=Supervision or Setup 2=Maximal Assistance 6=Modified [place] 3=Moderate Assistance 7=Complete IndependenceSCALE: Activities may be completed with or without assistive devices. 7-Oikzkflhig-pecourk completes the activity by him/herself with no assistance from a helper. 5-Set-up or Clean-up Assistance-helper sets up or cleans up; patient completes activity. [place] assists only prior to or following the activity. 4-Supervision or Touching Assistance-helper provides verbal cues and/or touching/steadying and/or contact guard assistance as patient completes activity. Assistance may be provided throughout the activity or intermittently. 3-Partial/Moderate Assistance-helper does LESS THAN HALF the effort. [place] lifts, holds or supports trunk or limbs, but provides less than half the effort. 2-Substantial/Maximal Assistance-helper does MORE THAN HALF the effort. [place] lifts or holds trunk or limbs and provides more than half the effort. 6-Gfkgfetwh-vjrnzd does ALL the effort. Patient does none of the effort to complete the activity. Or, the assistance of 2 or more helpers is required for the patient to complete the activity. If activity was not attempted, code reason: 7-Patient Refused. 9-Not Applicable-not attempted and the patient did not perform the activity before the current illness, exacerbation or injury. 10-Not Attempted due to Environmental Limitations-(lack of equipment, weather restraints, etc.). 88-Not Attempted due to Medical Conditions or Safety Concerns. Eating (QC): 6 (Pt is able to complete own set up and uses regular utensils to eat.) Oral Hygiene (QC): 6 Shower/Bathe Self (QC): 1 (Sponge bath due to no hot water on ARU. Assist x2 for safety due to pt falling toward L side and keeping eyes closed.) Upper Body Dressing (QC): 2 Lower Body Dressing (QC): 1 (Assist x2 due to pt's knees melting and decreased balance.) On/Off Footwear: 2 Toileting Hygiene (QC): 1 Toilet Transfer (QC): 1 Other Treatment Unable to move hands and push WC. Max assist and max verbal cues with WC. Pt required assist from OT for UE positioning during mobility/transfers during PT/OT co-treat. Pt requires verbal/physical cues for safe transfers/mobility. Pt shuffles feet and attempts to sit down in middle of transfer. Pt tends to keep eyes closed and leans either forward or sideways during standing and sitting. See PT note for PT QC's. OT Computer Systems Administrator Goals Longterm Goals Time Frame: Oct 28, 2019 Eating (QC): 6 (met-10/24/2019) Oral Hygiene (QC): 6 (met-10/24/2019) Toileting Hygiene (QC): 6 (not met) Shower/Bathe Self (QC): 6 (nt met) Upper Body Dressing (QC): 6 (nt met) Lower Body Dressing (QC): 6 (not met) On/Off Footwear (QC): 6 (not met) Additional Goals: 1-Demonstrate ADL Tasks, 2-Verbalize Understanding, 3- ImproveStrength/Rex 1=Demonstrate adherence to instructed precautions during ADL tasks. 2=Patient will verbalize/demonstrate understanding of assistive devices/modifications for ADL. 3=Patient will improve strength/tolerance for activity to enable patient to perform ADL's. OT Education/Plan Problem List/Assessment Assessment: Decreased Activ Tolerance, Decreased Safety Aware, Dependent Tr ansfers, Impaired Bed Mobility, Impaired Cognition, Impaired Coordination, Impaired Funct Balance, Impaired I ADL's, Impaired Self-Care Skills Discharge Recommendations Plan/Recommendations: Continue POC Treatment Plan/Plan of Care Patient would benefit from OT for education, treatment and training to promote independence in ADL's, mobility, safety and/or upper extremity function for ADL's. Plan of Care: ADL Retraining, Caregiver Training, Concurrent Therapy, Functional Mobility, Group Exercise/Act as Ind, UE Funct Exercise/Act Treatment Duration: Oct 28, 2019 Frequency: At least 5 of 7 days/Wk (IRF) Estimated Hrs Per Day: 1.5 hours per day Agreement: Yes Rehab Potential: Fair Time/GCodes Start Time: 08:30 Stop Time: 10:00 Total Time Billed (hr/min): 90 Billed Treatment Time 1 visit-ADL 5 (75 min) FA 1 (15 min) Co-treat with PT 75 min, individual xavier mathew 15 min JENELLE RAMSEY Oct 24, 2019 12:07
--- NOTE | 2019-10-24 14:14 | Speech Therapy Daily Note ---
Speech Daily Progress Note Subjective Date Seen by Provider: Oct 24, 2019 Time Seen by Provider: 00:30 Patient was visiting with her daughters and when we entered the room. Objective Patient completed a series of common sayings with 90% accuracy given 10% cues. Assessment Assessment Current Status: Good Progress Treatment Plan Continue Plan of Care Speech Short Term Goals Short Term Goals Short Term Goals 1) The patient will complete memory tasks related to her daily needs at 90% or greater with minimal cues. 2) The patient will complete safety awareness tasks related to her daily needs at 90% or greater with minimal cues. 3) The patient will complete problem solving tasks related to her daily needs at 90% or greater with minimal cues. Speech Alf Goals Alf Goals Patient will improve cognitive-communication necessary for safety and daily living tasks with minimal assist. Speech-Plan Patient/Family Goals Patient/Family Goals: Patient plans on returning to her home where she lives with her . Treatment Plan Speech Therapy Treatment Plan: Continue Plan of Care Patient is noted to be more alert in the mornings. Treatment Duration: Oct 27, 2019 Frequency: 4 times per week Estimated Hrs Per Day: Other Rehab Potential: Fair Barriers to Learning: Patient has dementia Pt/Family Agrees to Plan: Yes Safety Risks/Education Teaching Recipient: Patient Teaching Methods: Demonstration, Discussion Response to Teaching: Verbalize Understanding, Return Demonstration Education Topics Provided: Continued safety awareness within her room Time Speech Therapy Time In: 11:00 Speech Therapy Time Out: 11:30 Total Billed Time: 30 Billed Treatment Time 1PATIENCE [address] Oct 24, 2019 14:14
[2019-10-24 16:42] VITALS: BP 98/66
--- NOTE | 2019-10-24 18:42 | Cardiology Progress Note ---
Cardiology SOAP Progress Note Subjective: No cardiac complaints. Objective: I&O/Vital Signs 10/24/19 10/24/19 10/24/19 10/24/19 06:59 08:20 09:44 10:40 Pulse 80 B/P (MAP) 122/80 (94) Pulse Ox 99 99 99 O2 Delivery Nasal Cannula Nasal Cannula Nasal Cannula Nasal Cannula O2 Flow Rate 3.00 2.00 2.00 3.00 10/24/19 10/24/19 10/24/19 14:18 16:42 17:21 Temp 36.6 Pulse 71 72 Resp 20 18 B/P (MAP) 98/66 (77) Pulse Ox 97 96 98 O2 Delivery Nasal Cannula Nasal Cannula Nasal Cannula O2 Flow Rate 3.00 4.00 2.00 10/24/19 00:00 Intake Total 300 ml Balance 300 ml Weight (Pounds): 170 Weight (Ounces): 0 Weight (Calculated Kilograms): 77.795327 Respiratory: chest is bilaterally symmetric, lungs clear to auscultation Cardiovascular: irregularly irregular, S1 and S2 Gastrointestional: soft, audible bowel sounds Extremities: normal range of motion, non-tender, normal inspection, no lower ex tremity edema bilateral Neurologic/Psychiatric: no motor/sensory deficits, alert, normal mood/affect, grossly intact Skin: normal color, warm/dry Results/Procedures: Labs Laboratory Tests 10/23/19 20:19: Glucometer 122H 10/24/19 05:09: Glucometer 106 10/24/19 05:33: White Blood Count 9.0, Red Blood Count 4.18L, Hemoglobin 12.2, Hematocrit 40, Mean Corpuscular Volume 95, Mean Corpuscular Hemoglobin 29, Mean Corpuscular Hemoglobin Concent 31L, Red Cell Distribution Width 15.6H, Platelet Count 193, Mean Platelet Volume 11.2H, Neutrophils (%) (Auto) 81H, Lymphocytes (%) (Auto) 10L, Monocytes (%) (Auto) 7, Eosinophils (%) (Auto) 2, Basophils (%) (Auto) 0, Neutrophils # (Auto) 7.3, Lymphocytes # (Auto) 0.9L, Monocytes # (Auto) 0.6, Eosinophils # (Auto) 0.2, Basophils # (Auto) 0.0, Sodium Level 141, Potassium Level 3.8, Chloride Level 101, Carbon Dioxide Level 28, Anion Gap 12, Blood Urea Nitrogen 18, Creatinine 0.76, Estimat Glomerular Filtration Rate > 60, BUN/Creatinine Ratio 24, Glucose Level 97, Calcium Level 9.4, Phosphorus Level 3.8, Magnesium Level 1.8 A/P: Assessment/Dx: Admitted for Intractable dizziness, improved COPD, Mild acute on chronic systolic/diastolic heart failure, Atrial fibrillation with controlled ventricular rate CAD, History of smoking Plan: Plan: Improved neurological status. Dizziness. Telemetry. Defer to the primary team. COPD, defer treatment to Dr. Verde. Likely the cause of shortness of breath. Mild acute on chronic systolic/diastolic heart failure. BNP over 400 on admission. Currently BNP just over 400. Unlikely florid congestive heart fail ure. Can continue low-dose IV Lasix. Atrial fibrillation with controlled ventricular rate, continue Cardizem and oral anticoagulation. CAD, history of PCI and stents. No chest pain. All troponins negative. No further invasive cardiac management at this point in time. History of smoking Thank you for your consultation. Please call me if you have any questions. Edwina Bermudez MD, FACP, FACC, FSCAI, FHRS, CCDS Interventional Cardiology Cardiac Electrophysiology Vascular Medicine and Endovascular Interventions Faby BERMUDEZ MD Oct 24, 2019 18:42
--- NOTE | 2019-10-24 19:05 | NUR ---
BEDSIDE REPORT RECEIVED FROM STACEY BARON, ASSUME CARE OF PT
[2019-10-24 21:00] VITALS: BP 123/73
[2019-10-24] MEDS: MELATONIN 3 MG TABLET PO PRN (21:05)
--- NOTE | 2019-10-24 21:05 | NUR ---
PT REFUSED ISAIAH, MIRALAX & WADE, V/S 78-20-100%-123/73-0/10, BED/ CHAIR ALARM ON TELE SITTER IN PLACE, FAMILY AT BEDSIDE
[2019-10-25 05:20] LABS: BASOPHILS % (AUTO) 0 % (0-10); EOSINOPHILS # (AUTO) 0.3 10^3/uL (0.0-0.3); EOSINOPHILS % (AUTO) 3 % (0-10); HEMATOCRIT 39 % (35-52); LYMPHOCYTES # (AUTO) 0.8 X 10^3 (1.0-4.0); LYMPHOCYTES % (AUTO) 10 % (12-44); MEAN CORPUSCULAR HEMOGLOBIN 29 PG (25-34); MEAN CORPUSCULAR HGB CONC 31 G/DL (32-36); MEAN CORPUSCULAR VOLUME 94 FL (80-99); MEAN PLATELET VOLUME 10.7 FL (7.4-10.4); MONOCYTES # (AUTO) 0.5 X 10^3 (0.0-1.0); MONOCYTES % (AUTO) 5 % (0-12); NEUTROPHILS # (AUTO) 6.9 X 10^3 (1.8-7.8); NEUTROPHILS % (AUTO) 82 % (42-75); PLATELET COUNT 189 10^3/uL (130-400); RED CELL DISTRIBUTION WIDTH 15.4 % (10.0-14.5); WHITE BLOOD COUNT 8.5 10^3/uL (4.3-11.0)
[2019-10-25 05:42] LABS: CALCIUM 9.4 MG/DL (8.5-10.1); CREATININE SERUM 0.99 MG/DL (0.60-1.30); MAGNESIUM 1.7 MG/DL (1.6-2.4); PHOSPHORUS 4.6 MG/DL (2.3-4.7); POTASSIUM 3.9 MMOL/L (3.6-5.0)
[2019-10-25 06:00] VITALS: BP 121/74
[2019-10-25] MEDS: KCL 20 MEQ TAB (K-DUR) PO SCH (06:47)
[2019-10-25] MEDS: RT-ALBUTEROL/IPRATROPIUM 3 ML (DUONEB) VIAL INH SCH ×4 (07:55→19:18)
[2019-10-25] MEDS: FUROSEMIDE 40 MG (LASIX) TAB PO SCH (08:37)
[2019-10-25] MEDS: MONTELUKAST 10 MG (SINGULAIR) TAB PO SCH (08:37)
[2019-10-25] MEDS: CARVEDILOL 12.5 MG (COREG) TABLET PO SCH ×2 (08:37→21:00)
[2019-10-25] MEDS: risperiDONE 0.25 MG (RisperDAL) TAB PO SCH (08:37)
[2019-10-25] MEDS: DOCUSATE SODIUM 100 MG (COLACE) CAP PO SCH ×2 (08:37→20:59)
[2019-10-25] MEDS: DILTIAZEM 240 MG (CARDIZEM CD) CAP PO SCH (08:37)
[2019-10-25] MEDS: APIXABAN 5 MG (ELIQUIS) TABLET PO SCH ×2 (08:37→21:00)
[2019-10-25] MEDS: POLYETHYLENE GLYCOL 17 GM (MIRALAX) PACK PO SCH ×2 (08:37→21:06)
[2019-10-25] MEDS: SENNA W/DOCUSATE (SENOKOT S) TABLET PO SCH ×2 (08:37→21:00)
--- NOTE | 2019-10-25 08:56 | Occupational Ther Daily Note ---
OT Current Status-Daily Note Subjective Co-treat with PT from 799 to 944, individual treatment [id number], skills of 2 clinicians required due to decreased sitting/standing balance, lethargy and need for skilled technique and instructions for safety during transfers, mobility and standing. PT focused on standing, LE strengthening/positioning, bed mobility and transfers. OT focused on ADLs, functional transfers, bed mobility and UE positioning during mobility. Pt alert, half sitting half lying on bed. Daughter present beside pt. Mental Status/Objective Patient Orientation: Person, Place, Time, Situation ADL-Treatment Pt declined shower today or change of clothes. Pt stated that she wants to transfer herself and don't touch or help her. Pt was leaning significantly to L side, stating that she was sitting up and didn't need help. Daughter and [place] redirected pt that she was practically lying down on her L side. Pt required assist x2 to sit up on EOB and stay up right. Pt tends to push away from assist during sitting, standing or transfers then but dive into seat. Verbal/physical cues needed plus assist x2 to transfer safely. Pt transferred with assist x2 to [facility] [place] then was unable to sit upright and void. Pt then transferred to w/ to use regular toilet in attempt to void. Using w/c and grabbars, pt able to transfer with assist x1. Pt was able to sit upright on toilet and void. Pt able to cleanse jen area and assist needed to cleanse buttocks. Assist needed to hike pants over hips. Pt then transferred back to w/c to complete oral care and washing hands/face with set up due to pt unable to stay leaning forward enough to reach oral care items. Pt was able to apply toothpaste and brush teeth by self. Therapy Code Descriptions/Definitions Functional [place] Measure: 0=Not Assessed/NA 4=Minimal Assistance 1=Total Assistance 5=Supervision or Setup 2=Maximal Assistance 6=Modified [place] 3=Moderate Assistance 7=Complete IndependenceSCALE: Activities may be completed with or without assistive devices. 8-Azumfuhiky-hcgxqbj completes the activity by him/herself with no assistance from a helper. 5-Set-up or Clean-up Assistance-helper sets up or cleans up; patient completes activity. [place] assists only prior to or following the activity. 4-Supervision or Touching Assistance-helper provides verbal cues and/or to uching/steadying and/or contact guard assistance as patient completes activity. Assistance may be provided throughout the activity or intermittently. 3-Partial/Moderate Assistance-helper does LESS THAN HALF the effort. [place] lifts, holds or supports trunk or limbs, but provides less than half the effort. 2-Substantial/Maximal Assistance-helper does MORE THAN HALF the effort. [place] lifts or holds trunk or limbs and provides more than half the effort. 5-Dqvunibpq-zpyuro does ALL the effort. Patient does none of the effort to complete the activity. Or, the assistance of 2 or more helpers is required for the patient to complete the activity. If activity was not attempted, code reason: 7-Patient Refused. 9-Not Applicable-not attempted and the patient did not perform the activity before the current illness, exacerbation or injury. 10-Not Attempted due to Environmental Limitations-(lack of equipment, weather restraints, etc.). 88-Not Attempted due to Medical Conditions or Safety Concerns. Eating (QC): 6 (Pt complete own meal set up and uses regular utensils.) Oral Hygiene (QC): 5 Toileting Hygiene (QC): 2 Toilet Transfer (QC): 3 Other Treatment Pt required assist from OT for UE positioning during mobility/transfers during PT/OT co-treat. Pt requires verbal/physical cues for safe transfers/mobility. Pt shuffles feet and attempts to sit down in middle of transfer. Pt tends to keep eyes closed and leans either forward or sideways during standing and sitting. After therapy, pt lying in bed with call light/phone in reach. All needs met in room. OT Continuing Education Dean Goals Continuing Education Dean Goals Time Frame: Oct 28, 2019 Eating (QC): 6 (met-10/24/2019) Oral Hygiene (QC): 6 (met-10/24/2019) Toileting Hygiene (QC): 6 (not met) Shower/Bathe Self (QC): 6 (nt met) Upper Body Dressing (QC): 6 (nt met) Lower Body Dressing (QC): 6 (not met) On/Off Footwear (QC): 6 (not met) Additional Goals: 1-Demonstrate ADL Tasks, 2-Verbalize Understanding, 3-ImproveStrength/Rex 1=Demonstrate adherence to instructed precautions during ADL tasks. 2=Patient will verbalize/demonstrate understanding of assistive devices/modifications for ADL. 3=Patient will improve strength/tolerance for activity to enable patient to perform ADL's. OT Education/Plan Problem List/Assessment Assessment: Decreased Activ Tolerance, Decreased Safety Aware, Decreased UE Strength, Impaired Bed Mobility, Impaired Cognition, Impaired Coordination, Impaired Funct Balance, Impaired Self-Care Skills, Restricted Funct UE ROM Discharge Recommendations Plan/Recommendations: Continue POC Treatment Plan/Plan of Care Patient would benefit from OT for education, treatment and training to promote independence in ADL's, mobility, safety and/or upper extremity function for ADL's. Plan of Care: ADL Retraining, Caregiver Training, Concurrent Therapy, Functional Mobility, Group Exercise/Act as Ind, UE Funct Exercise/Act Treatment Duration: Oct 28, 2019 Frequency: At least 5 of 7 days/Wk (IRF) Estimated Hrs Per Day: 1.5 hours per day Agreement: Yes Rehab Potential: Fair Time/GCodes Start Time: 07:15 Stop Time: 08:45 Total Time Billed (hr/min): 90 Billed Treatment Time 1 visit-ADL 3 (45 min) FA 3 (45 min) JENELLE RAMSEY Oct 25, 2019 08:56
--- NOTE | 2019-10-25 09:03 | Physical Therapy Daily Note ---
PT Daily Note-Current Subjective Pt working with OT upon arrival. Pt agrees to PT/OT co-treat. Need for 2 clinicians due to lack of balance, activity tolerance and strength. Mental Status Patient Orientation: Person, Confused, Place Transfers SCALE: Activities may be completed with or without assistive devices. 9-Pepkibxzcm-yxgsbnp completes the activity by him/herself with no assistance from a helper. 5-Set-up or Clean-up Assistance-helper sets up or cleans up; patient completes activity. [place] assists only prior to or following the activity. 4-Supervision or Touching Assistance-helper provides verbal cues and/or touching/steadying and/or contact guard assistance as patient completes activity. Assistance may be provided throughout the activity or intermittently. 3-Partial/Moderate Assistance-helper does LESS THAN HALF the effort. [place] lifts, holds or supports trunk or limbs, but provides less than half the effort. 2-Substantial/Maximal Assistance-helper does MORE THAN HALF the effort. [place] lifts or holds trunk or limbs and provides more than half the effort. 6-Rkioaesvl-kdpepk does ALL the effort. Patient does none of the effort to complete the activity. Or, the assistance of 2 or more helpers is required for the patient to complete the activity. If activity was not attempted, code reason: 7-Patient Refused. 9-Not Applicable-not attempted and the patient did not perform the activity be fore the current illness, exacerbation or injury. 10-Not Attempted due to Environmental Limitations-(lack of equipment, weather restraints, etc.). 88-Not Attempted due to Medical Conditions or Safety Concerns. Lying to Sitting/Side of Bed(Q: 2 Sit to Stand (QC): 2 Chair/Vhw-fx-Elqbn Xfer(QC): 2 Weight Bearing Right Lower Extremity: Right Full Weight Bearing Left Lower Extremity: Left Full Weight Bearing Gait Training Does the Patient Walk?: No and Walking Goal IS indicated Wheelchair Training Does the Pt Use a Wheelchair?: Yes Wheel 50 ft with 2 turns (QC): 2 Wheel 150 ft (QC): 2 Type of Wheelchair: Manual Treatments Pt required assist x2 to sit up on EOB and stay up right. Pt tends to push away from assist during sitting, standing or transfers then but dive into seat. Verbal/physical cues needed plus assist x2 to transfer safely. Pt transferred with assist x2 to [facility] [place] then was unable to sit upright and void. Pt then transferred to w/c to use regular toilet in attempt to void. Using w/c and grabbars, pt able to transfer with assist x1. Pt was able to sit upright on toilet and void. Pt able to cleanse jen area and assist needed to cleanse buttocks. Assist needed to hike pants over hips. Pt then transferred back to w/c to complete oral care and washing hands/face with set up due to pt unable to stay leaning forward enough to reach oral care items. Pt was able to apply toothpaste and brush teeth by self. Pt returns to Supine in bed at end of Rx. Pt needs assist to lift B LE into bed. Pt has all needs met, call light next to pt. Assessment Current Status: Fair Progress Co-treat with PT from 0800 to 944, individual treatment [id number], skills of 2 clinicians required due to decreased sitting/standing balance, lethargy and need for skilled technique and instructions for safety during transfers, mobility and standing. PT focused on standing, LE strengthening/positioning, bed mobility and transfers. OT focused on ADLs, functional transfers, bed mobility and UE positioning during mobility. Pt alert, half sitting half lying on bed. Daughter present beside pt. PT Short Term Goals Short Term Goals Time Frame: Oct 21, 2019 Roll Left & Right: 6 Sit to lyin Lying to sitting on side of be: 6 Sit to stand: 6 PT Screw Eye Assembler Goals Snf Goals PT Screw Eye Assembler Goals Time Frame: Nov 04, 2019 Roll Left & Right (QC): 6 Sit to Lying (QC): 6 Lying-Sitting on Side/Bed(QC): 6 Sit to Stand (QC): 6 Chair/Gvy-we-Ahcib Xfer(QC): 6 Toilet Transfer (QC): 6 Car Transfer (QC): 4 Does the Patient Walk: Yes Walk 10 feet (QC): 6 Walk 50ft with 2 Turns (QC): 6 Walk 150 ft (QC): 6 Walking 10ft on Uneven Surface: 6 1 Step (curb) (QC): 4 4 Steps (QC): 4 12 Steps (QC): 9 Picking up an Object (QC): 4 Does the Pt use WC or Scooter?: No Wheel 50 feet with 2 turns (QC: 9 Wheel 150 feet: 9 PT Plan Problem List Problem List: Activity Tolerance, Functional Strength, Safety, Balance, Gait, Transfer, Bed Mobility, ROM Treatment/Plan Treatment Plan: Continue Plan of Care Treatment Plan: Bed Mobility, Education, Functional Activity Rex, Functional Strength, Group Therapy, Gait, Safety, Therapeutic Exercise, Transfers Treatment Duration: Nov 04, 2019 Frequency: Modified Program (IRF) Estimated Hrs Per Day: 1.5 hours per day Patient and/or Family Agrees t: Yes Safety Risks/Education Patient Education: Transfer Techniques, Correct Positioning, W/C Management, Safety Issues Teaching Recipient: Patient Teaching Methods: Discussion Response to Teaching: Reinforcement Needed Time/GCodes Time In: 800 Time Out: 900 Total Billed Treatment Time: 60 Total Billed Treatment 1, FA x2 (30m), EX (15m) & [facility] (15m) Co-treat w/OT 45m ([id number]) KLARISSA RITCHIE PTA Oct 25, 2019 09:03
--- NOTE | 2019-10-25 10:06 | PM&R Progress Note ---
Subjective HPI/CC On Admission Date Seen by Provider: Oct 25, 2019 Time Seen by Provider: 09:00 Subjective/Events-last exam It is been decided [facility] so orders will be placed Pt has become a two person assist and mostly resides in the wheelchair Complete blood count and CBC are all within normal limits today again Delirium is something that will take time and unsure if she will fully recover penitentiary placement may very well be fci solution Prognosis fair at this point Denies any pain Checked meds and labs Reviewed therapy notes Conferred with RN extensively Review of Systems General: Fatigue Pulmonary: Dyspnea 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: Confusion Objective Exam Vital Signs Vital Signs Date Time Temp Pulse Resp B/P (MAP) Pulse Ox O2 Delivery O2 Flow Rate FiO2 10/25/19 08:10 100 Nasal Cannula 2.00 10/25/19 06:00 36.6 73 8 121/74 (90) 10/23/19 13:21 32 Capillary Refill : Less Than 3 SecondsLess Than 3 Seconds General Appearance: No Apparent Distress, WD/WN, Anxious, Chronically ill, Othe r (more declined and [place] colored) HEENT: PERRL/EOMI, Normal ENT Inspection, Pharynx Normal Neck: Full Range of Motion, Normal Inspection, Non Tender, Supple, Carotid Bruit Respiratory: Chest Non Tender, No Accessory Muscle Use, No Respiratory Distress, Crackles, Decreased Breath Sounds, Wheezing Cardiovascular: Regular Rate, Rhythm, No Edema, No Gallop, No JVD, No Murmur, Normal Peripheral Pulses Gastrointestinal: Normal Bowel Sounds, No Organomegaly, No Pulsatile Mass, Non Tender, Soft Back: Normal Inspection, No CVA Tenderness, No Vertebral Tenderness Extremity: Normal Capillary Refill, Normal Inspection, Normal Range of Motion, Non Tender, No Calf Tenderness, No Pedal Edema Neurologic/Psychiatric: Alert, No Motor/Sensory Deficits, sheet cutting operator II-XII Norm as Tested, Depressed Affect, Disoriented (subtle poor recall) Skin: Normal Color, Warm/Dry Lymphatic: No Adenopathy Results/Procedures Lab Laboratory Tests 10/25/19 04:47 Patient resulted labs reviewed. FIM Transfers Therapy Code Descriptions/Definitions Functional [place] Measure: 0=Not Assessed/NA 4=Minimal Assistance 1=Total Assistance 5=Supervision or Setup 2=Maximal Assistance 6=Modified [place] 3=Moderate Assistance 7=Complete IndependenceSCALE: Activities may be completed with or without assistive devices. 7-Wevpgzbrjq-rixzhxj completes the activity by him/herself with no assistance from a helper. 5-Set-up or Clean-up Assistance-helper sets up or cleans up; patient completes activity. [place] assists only prior to or following the activity. 4-Supervision or Touching Assistance-helper provides verbal cues and/or touching/steadying and/or contact guard assistance as patient completes activity. Assistance may be provided throughout the activity or intermittently. 3-Partial/Moderate Assistance-helper does LESS THAN HALF the effort. [place] lifts, holds or supports trunk or limbs, but provides less than half the effort. 2-Substantial/Maximal Assistance-helper does MORE THAN HALF the effort. [place] lifts or holds trunk or limbs and provides more than half the effort. 0-Ppedlktlw-kdmufy does ALL the effort. Patient does none of the effort to complete the activity. Or, the assistance of 2 or more helpers is required for the patient to complete the activity. If activity was not attempted, code reason: 7-Patient Refused. 9-Not Applicable-not attempted and the patient did not perform the activity before the current illness, exacerbation or injury. 10-Not Attempted due to Environmental Limitations-(lack of equipment, weather restraints, etc.). 88-Not Attempted due to Medical Conditions or Safety Concerns. Roll Left to Right (QC): 4 Sit to Lying (QC): 3 Sit to Stand (QC): 3 Chair/Nfs-vp-Urkmp Xfer(QC): 3 Car Transfer (QC): 2 Gait Training Does the Patient Walk?: Yes Distance: 50' Walk 10 feet (QC): 3 Walk 50 ft with 2 Turns(QC): 3 Walk 150 ft (QC): 88 Walking 10ft/uneven surface-QC: 88 Gait Persons Needed: 1 Gait Assistive Device: FWW Wheelchair Training Does the Pt Use a Wheelchair?: Yes Wheel 50 ft with 2 turns (QC): 3 Wheel 150 ft (QC): 9 Type of Wheelchair: Manual Stair Training #of Steps: 4 1 Step (curb) (QC): 3 4 Steps (QC): 3 12 Steps (QC): 88 Balance Picking up an Object (QC): 88 ADL-Treatment Eating (QC): 6 (Pt is able to complete own set up and uses regular utensils to eat.) Oral Hygiene (QC): 6 Bathing Location: L Arm, R Arm, L Upper Leg, R Upper Leg, L Lower Leg (includi ng foot), R Lower Leg (including foot), Abdomen Shower/Bathe Self (QC): 1 (Sponge bath due to no hot water on ARU. Assist x2 for safety due to pt falling toward L side and keeping eyes closed.) Upper Body Dressing (QC): 2 Lower Body Dressing (QC): 1 (Assist x2 due to pt's knees melting and decreased balance.) On/Off Footwear (QC): 2 Toileting Hygiene (QC): 1 Toilet Transfer (QC): 1 Assessment/Plan Assessment and Plan Assess & Plan/Chief Complaint Assessment: Myopathy Delirium CHF with volume overload requiring IV Lasix COPD Oxygen dependency New confusion with delirium as confirmed Medical noncompliance Denial of severity of medical problems Former smoker Rheumatoid arthritis Chronic renal insufficiency Hyperglycemia HGA1C 6.1 Hypertension ehh-ns-lqhdueg improved today Orthostasis with vertigo Crackles on exam of lungs today consulted Dr Lin Plan: IV Lasix prn Inpatient rehabilitation protocol Strengthening Home meds Monitor closely Work on cognition Monitor labs O2 Nebs Delirium treatment but definitely needs NH at [place] (1) Myopathy (2) Memory loss (3) Denial about severity of illness (4) COPD with acute exacerbation Status: Resolved Resolution Date/Time: 10/14/19 @ 14:22 (5) Paroxysmal atrial fibrillation Status: Chronic (6) Orthostatic hypotension Status: Resolved Resolution Date/Time: 10/14/19 @ 14:22 (7) Atrial fibrillation with rapid ventricular response Status: Acute (8) Noncompliance with medication regimen Status: Chronic (9) Hypoxia Status: Chronic (10) Uncontrolled hypertension Status: Acute (11) Hyperglycemia Status: Acute (12) Delirium JEROME NEAL DO Oct 25, 2019 10:06
--- NOTE | 2019-10-25 10:41 | NUR ---
Care assumed. Agree with previous assessments.
[2019-10-25] MEDS ORDERED: FLUT12AE4 IH (11:49)
[2019-10-25] MEDS ORDERED: DILT240C97 PO (11:49)
[2019-10-25] MEDS ORDERED: IPRA3AMP31 INH (11:49)
[2019-10-25] MEDS ORDERED: POTA20TA8 PO (11:49)
[2019-10-25] MEDS ORDERED: SENN-20 PO (11:49)
[2019-10-25] MEDS ORDERED: LOPE2CAP PO (11:49)
[2019-10-25] MEDS ORDERED: MECL-106 PO (11:49)
[2019-10-25] MEDS ORDERED: ALPR0.254 PO (11:49)
[2019-10-25] MEDS ORDERED: DOCU100C37 PO (11:49)
[2019-10-25] MEDS ORDERED: CARV12.53 PO (11:49)
[2019-10-25] MEDS ORDERED: CALC200T40 PO (11:49)
[2019-10-25] MEDS ORDERED: FURO40TA4 PO (11:49)
[2019-10-25] MEDS ORDERED: MONT10TA24 PO (11:49)
--- NOTE | 2019-10-25 11:51 | Discharge Inst-Skilled Nursing ---
Discharge Inst-Skilled NF Reconcile Patient Problems Problems Reviewed?: Yes Patient Instructions Patient Problems: Delirium Severe COPD Congestive heart failure Atrial fibrillation Fall risk Severe debility Goal: Return to independent living with Consult/Follow Up/Orders Follow Up Appt.: Dr. Verde in 2 weeks Skilled NF Admit to: [facility] Certification (SNF) I certify that SNF services are required to be given on an inpatient basis b ecause of the above named patient's need for residential care on a continuing basis for the conditions(s) for which he/she was receiving inpatient hospital services prior to his/her transfer to the SNF. Longterm Facility Order: Nursing Services, Chicken Handler-Evaluate & Treat, Physical Therapy-Evaluate & Treat, Speech Language-Evaluate & Treat Oxygen Delivery Method: Nasal Cannula Discharge Diet: Low Sodium Diet Daily Activity as Tolerated: Yes Resuscitation Status: Full Code New & Resume Previous Orders New Medications: Alprazolam (Alprazolam) 0.25 Mg Tablet 0.25 MG PO Q8H PRN for ANXIETY, #30 TAB Calcium Carbonate (Calcium Antacid) 200 Mg Tab.chew 500 MG PO TID PRN for INDIGESTION for 60 Days, TAB Carvedilol (Carvedilol) 12.5 Mg Tablet 12.5 MG PO BID for 60 Days, TAB Diltiazem HCl (Diltiazem 24Hr Cd) 240 Mg Cap.er.24h 240 MG PO DAILY@0900 for 60 Days, CAP Docusate Sodium (Docusate Sodium) 100 Mg Capsule 100 MG PO BID for 60 Days, CAP Fluticasone/Salmeterol (Advair Hfa 115-21 Mcg Inhaler) 12 Gm Hfa.aer.ad 2 PUFF IH BID@08,20 PRN for SHORTNESS OF BREATH for 60 Days, GM Furosemide (Furosemide) 40 Mg Tablet 40 MG PO DAILY for 60 Days, TAB Ipratropium/Albuterol Sulfate (Iprat-Albut 0.5-3(2.5) mg/3 ml) 3 Ml Ampul.neb 3 ML INH RTQID for 60 Days, INHALER Loperamide HCl (Loperamide) 2 Mg Capsule 2 MG PO PRN PRN for DIARRHEA for 60 Days, CAP Meclizine HCl (Meclizine HCl) 25 Mg Tablet 50 MG PO Q6H PRN for DIZZINESS for 60 Days, TAB Montelukast Sodium (Montelukast Sodium) 10 Mg Tablet 10 MG PO DAILY@0900 for 60 Days, TAB Potassium Chloride (Klor-Con M20) 20 Meq Tab.er.prt 20 MEQ PO DAILY@0700 for 60 Days Sennosides/Docusate Sodium (Senna-Time S Tablet) 1 Each Tablet 1 EA PO BID for 60 Days, TAB Continued Medications: Apixaban (Eliquis) 5 Mg Tablet 5 MG PO BID, TAB LAST FILLED 06-06-2019 #180/90DS Atorvastatin Calcium (Atorvastatin Calcium) 20 Mg Tablet 20 MG PO HS, TAB LAST FILLED 06-06-2019 #90/90DS Citalopram Hydrobromide (Celexa) 20 Mg Tablet 20 MG PO HS, TAB LAST FILLED 06-06-2019 #90/90DS [Instaflex] () 1 TAB PO DAILY, TAB Discontinued Medications: Carvedilol (Carvedilol) 6.25 Mg Tablet 6.25 MG PO BID, TAB LAST FILLED 06-06-2019 #180/90DS Cholecalciferol (Vitamin D3) (Vitamin D3) 500 Unit/5 Ml Liquid 5 ML PO 1200, EA Diltiazem HCl (Cartia Xt) 120 Mg Cap.er.24h 120 MG PO DAILY, CAP LAST FILLED 06-06-2019 #90/90DS Ferrous Sulfate (Ferosul) 300 Mg/6.82 Ml Solution 5 ML PO DAILY, EA Flaxseed Oil (Flaxseed Oil) 1,000 Mg Capsule 1000 MG PO DAILY, CAP Furosemide (Furosemide) 20 Mg Tablet 20 MG PO DAILY PRN for SWELLING Ipratropium/Albuterol Sulfate (Iprat-Albut 0.5-3(2.5) mg/3 ml) 3 Ml Ampul.neb 3 ML INH RTQ4HR, #60 INHALER Multivitamin (Multi-Vitamin Daily) 1 Each Tablet 2 EACH PO DAILY, TAB Prednisone (Prednisone) 10 Mg Tab.ds.pk 10 MG PO DAILY, #21 EA Take 6 tabs(60mg)daily,decrease by 1 tab(10MG)daily. Terese Verde Oct 25, 2019 11:50 TERESE VERDE DO Oct 25, 2019 11:51
--- NOTE | 2019-10-25 13:38 | Cardiology Progress Note ---
Cardiology SOAP Progress Note Subjective: No cardiac complaints. Objective: I&O/Vital Signs 10/25/19 10/25/19 10/25/19 06:00 07:55 08:10 Temp 36.6 Pulse 73 Resp 8 B/P (MAP) 121/74 (90) Pulse Ox 94 98 100 O2 Delivery Nasal Cannula Nasal Cannula Nasal Cannula O2 Flow Rate 2.00 2.00 2.00 10/25/19 00:00 Intake Total 524 ml Balance 524 ml Weight (Pounds): 170 Weight (Ounces): 0 Weight (Calculated Kilograms): 77.822783 Respiratory: chest is bilaterally symmetric, lungs clear to auscultation Cardiovascular: irregularly irregular, S1 and S2 Gastrointestional: soft, audible bowel sounds Extremities: normal range of motion, non-tender, normal inspection, no lower extremity edema bilateral Neurologic/Psychiatric: no motor/sensory deficits, alert, normal mood/affect, grossly intact Skin: normal color, warm/dry Results/Procedures: Labs Laboratory Tests 10/25/19 04:47: White Blood Count 8.5, Red Blood Count 4.13L, Hemoglobin 12.0, Hematocrit 39, Mean Corpuscular Volume 94, Mean Corpuscular Hemoglobin 29, Mean Corpuscular Hemoglobin Concent 31L, Red Cell Distribution Width 15.4H, Platelet Count 189, Mean Platelet Volume 10.7H, Neutrophils (%) (Auto) 82H, Lymphocytes (%) (Auto) 10L, Monocytes (%) (Auto) 5, Eosinophils (%) (Auto) 3, Basophils (%) (Auto) 0, Neutrophils # (Auto) 6.9, Lymphocytes # (Auto) 0.8L, Monocytes # (Auto) 0.5, Eosinophils # (Auto) 0.3, Basophils # (Auto) 0.0, Sodium Level 142, Potassium Level 3.9, Chloride Level 99, Carbon Dioxide Level 30, Anion Gap 13, Blood Urea Nitrogen 20H, Creatinine 0.99, Estimat Glomerular Filtration Rate 55, BUN/Creatinine Ratio 20, Glucose Level 105, Calcium Level 9.4, Phosphorus Level 4.6, Magnesium Level 1.7 A/P: Assessment/Dx: Admitted for Intractable dizziness, improved COPD, Mild acute on chronic systolic/diastolic heart failure, Atrial fibrillation with controlled ventricular rate CAD, History of smoking Plan: Plan: Improved neurological status. Dizziness. Telemetry. Defer to the primary team. COPD, defer treatment to Dr. Verde. Likely the cause of shortness of breath. Mild acute on chronic systolic/diastolic heart failure. BNP over 400 on admission. Currently BNP just over 400. Unlikely florid congestive heart failure. Can continue low-dose IV Lasix. Atrial fibrillation with controlled ventricular rate, continue Cardizem and oral anticoagulation. CAD, history of PCI and stents. No chest pain. All troponins negative. No further invasive cardiac management at this point in time. History of smoking Thank you for your consultation. Please call me if you have any questions. Edwina Bermudez MD, FACP, FACC, FSCAI, FHRS, CCDS Interventional Cardiology Cardiac Electrophysiology Vascular Medicine and Endovascular Interventions Faby BERMUDEZ MD Oct 25, 2019 13:38
--- NOTE | 2019-10-25 13:55 | Speech Therapy Daily Note ---
Speech Daily Progress Note Subjective Date Seen by Provider: Oct 25, 2019 Time Seen by Provider: 00:30 Patient was resting in her bed following the PT session. Objective Patient completed personal memory tasks related to history, family and likes/dislikes with 75% with moderate cues and family input. Assessment Assessment Current Status: Fair Progress Treatment Plan Continue Plan of Care Speech Short Term Goals Short Term Goals Short Term Goals 1) The patient will complete memory tasks related to her daily needs at 90% or greater with minimal cues. 2) The patient will complete safety awareness tasks related to her daily needs at 90% or greater with minimal cues. 3) The patient will complete problem solving tasks related to her daily needs at 90% or greater with minimal cues. Speech Ecg Technician Goals Correction Goals Patient will improve cognitive-communication necessary for safety and daily living tasks with minimal assist. Speech-Plan Patient/Family Goals Patient/Family Goals: Patient is scheduled to discharge to SNF tomorrow. Treatment Plan Speech Therapy Treatment Plan: Discontinue ST Patient has made progress, however she has not achieved ST goals. Treatment Duration: Oct 26, 2019 Frequency: 4 times per week Estimated Hrs Per Day: Other Rehab Potential: Fair Barriers to Learning: Patient has moderate dementia Pt/Family Agrees to Plan: Yes Safety Risks/Education Teaching Recipient: Patient, Significant Other Teaching Methods: Demonstration, Discussion Response to Teaching: Verbalize Understanding, Return Demonstration, Reinforcement Needed Education Topics Provided: Communication of wants/needs Time Speech Therapy Time In: 09:00 Speech Therapy Time Out: 09:30 Total Billed Time: 30 Billed Treatment Time 1, COGN TEST, COGNDEVEL No QUALITY CODES EXPRESSION OF IDEAS/WANTS: 2 UNDERSTANDING VERBAL CONTENT: 3 BRIEF INTERVIEW MENTAL STATUS: YES REPETITION OF 3 WORDS: 3 TEMPORAL ORIENTATION: YEAR: CORRECT, MONTH: CORRECT, DAY: INCORRECT RECALL SOCK: NO, COLOR: NO, BED: NO MEMORY/RECALL ABILITY: [facility], IN [facility] Y[facility] Oct 25, 2019 13:55
--- NOTE | 2019-10-25 16:03 | NUR ---
WEEKLY TEAM CONFERENCE and DISCHARGE PLANNING Patient, spouse, and daughters all participated in discharge planning from [facility] to Medicare skilled admission to [facility] tomorrow. Team in agreement with this disposition. CARE Assessment pending, will finalize plans in a.m.
[2019-10-25 18:00] VITALS: BP 106/66
--- NOTE | 2019-10-25 19:14 | NUR ---
bedside report received from ARACELI BARON, assume care of pt
[2019-10-25] MEDS: RT-ADVAIR HFA 115/21 MCG PER PUFF IH PRN (19:18)
[2019-10-25 20:46] VITALS: BP 153/79
--- NOTE | 2019-10-25 20:49 | NUR ---
pt refused miralax, took Colace & Elly, v/s [id number], pt remains confused knows person & place but not date or situation, bed/chair alarm, tele sitter in place, family at bedside
[2019-10-25] MEDS: MELATONIN 3 MG TABLET PO PRN (21:00)
[2019-10-26 05:46] VITALS: BP 133/73
[2019-10-26 05:52] LABS: BASOPHILS % (AUTO) 0 % (0-10); EOSINOPHILS # (AUTO) 0.1 10^3/uL (0.0-0.3); EOSINOPHILS % (AUTO) 1 % (0-10); HEMATOCRIT 39 % (35-52); HEMOGLOBIN 12.2 G/DL (11.5-16.0); LYMPHOCYTES # (AUTO) 0.5 X 10^3 (1.0-4.0); LYMPHOCYTES % (AUTO) 6 % (12-44); MEAN CORPUSCULAR HEMOGLOBIN 29 PG (25-34); MEAN CORPUSCULAR HGB CONC 31 G/DL (32-36); MEAN CORPUSCULAR VOLUME 92 FL (80-99); MEAN PLATELET VOLUME 10.6 FL (7.4-10.4); MONOCYTES # (AUTO) 0.4 X 10^3 (0.0-1.0); MONOCYTES % (AUTO) 5 % (0-12); NEUTROPHILS # (AUTO) 7.3 X 10^3 (1.8-7.8); NEUTROPHILS % (AUTO) 87 % (42-75); PLATELET COUNT 175 10^3/uL (130-400); RED CELL DISTRIBUTION WIDTH 15.1 % (10.0-14.5); WHITE BLOOD COUNT 8.4 10^3/uL (4.3-11.0)
[2019-10-26 06:32] LABS: CALCIUM 9.8 MG/DL (8.5-10.1); MAGNESIUM 1.6 MG/DL (1.6-2.4); PHOSPHORUS 3.8 MG/DL (2.3-4.7); POTASSIUM 4.4 MMOL/L (3.6-5.0)
[2019-10-26] MEDS: KCL 20 MEQ TAB (K-DUR) PO SCH (06:45)
[2019-10-26] MEDS: RT-ALBUTEROL/IPRATROPIUM 3 ML (DUONEB) VIAL INH SCH (07:17)
--- NOTE | 2019-10-26 08:48 | Discharge Summary ---
Diagnosis/Chief Complaint Date of Admission Oct 14, 2019 at 10:20 Date of Discharge Discharge Date: Oct 26, 2019 Discharge Diagnosis Assessment: Myopathy Delirium CHF with volume overload requiring IV Lasix COPD Oxygen dependency New confusion with delirium as confirmed Medical noncompliance Denial of severity of medical problems Former smoker Rheumatoid arthritis Chronic renal insufficiency Hyperglycemia HGA1C 6.1 Hypertension [id number] improved today Orthostasis with vertigo Crackles on exam of lungs today consulted Dr Lin Plan: IV Lasix prn Inpatient rehabilitation protocol Strengthening Home meds Monitor closely Work on cognition Monitor labs O2 Nebs Delirium treatment but definitely needs NH at [place] (1) Myopathy (2) Memory loss (3) Denial about severity of illness (4) COPD with acute exacerbation Status: Resolved Resolution Date/Time: 10/14/19 @ 14:22 (5) Paroxysmal atrial fibrillation Status: Chronic (6) Orthostatic hypotension Status: Resolved Resolution Date/Time: 10/14/19 @ 14:22 (7) Atrial fibrillation with rapid ventricular response Status: Acute (8) Noncompliance with medication regimen Status: Chronic (9) Hypoxia Status: Chronic (10) Uncontrolled hypertension Status: Acute (11) Hyperglycemia Status: Acute (12) Delirium Discharge Summary Discharge Physical Examination Allergies: Coded Allergies: Sulfa (Sulfonamide Antibiotics) (Verified Allergy, Unknown, 12/27/17) Vitals & I&Os Vital Signs Date Time Temp Pulse Resp B/P (MAP) Pulse Ox O2 Delivery O2 Flow Rate FiO2 10/26/19 11:00 37.3 66 20 133/67 100 Nasal Cannula 2.00 10/23/19 13:21 32 General Appearance: Alert, Cooperative, Other (confusion, flat affect) Respiratory: Clear to Auscultation Cardiovascular: Regular Rate Neuro: Normal Speech Hospital Course Was the Problem List Reviewed?: Yes Hospital Course: Pt had an uneventful nearly two week hospital course in inpatient rehab. She was seen by cardiology and pulmonology and required extensive consultation and monitored labs closely. Oxygen was maintained as she has at home and will continue to be maintained on that along with nebulizer treatments and the rest of her medications that were triple checked at the. detention at [facility] on skilled care. Overall her delirium was a limitation which unclear if that will completely resolve but we did DC the Scopolamine Patch and Risperidone just in case that is a problem at [place] to the nursing facility so will monitor the pt closely in the meantime. I will see her close follow up but overall her prognosis remains guarded considering the fact that she appears to have vascular dementia underlying the long prolonged delirium she currently has. Labs (last 24 hrs) Laboratory Tests 10/14/19 05:32: Mean Blood Glucose 128H, Hemoglobin A1c 6.1H 10/14/19 15:25: Glucometer 211H 10/14/19 19:57: Glucometer 113H 10/15/19 05:55: White Blood Count 21.1H, Red Blood Count 4.68, Hemoglobin 13.2, Hematocrit 42, Mean Corpuscular Volume 90, Mean Corpuscular Hemoglobin 28, Mean Corpuscular Hemoglobin Concent 31L, Red Cell Distribution Width 15.7H, Platelet Count 348, Mean Platelet Volume 10.5H, Neutrophils (%) (Auto) 85H, Lymphocytes (%) (Auto) 8L, Monocytes (%) (Auto) 7, Eosinophils (%) (Auto) 0, Basophils (%) (Auto) 0, Neutrophils # (Auto) 17.9H, Lymphocytes # (Auto) 1.7, Monocytes # (Auto) 1.4H, Eosinophils # (Auto) 0.1, Basophils # (Auto) 0.0, Sodium Level 140, Potassium Level 3.9, Chloride Level 102, Carbon Dioxide Level 25, Anion Gap 13, Blood Urea Nitrogen 33H, Creatinine 0.96, Estimat Glomerular Filtration Rate 57, BUN/Creatinine Ratio 34, Glucose Level 106H, Calcium Level 9.0, Corrected Calcium 9.5, Total Bilirubin 1.4H, Aspartate Amino Transf (AST/SGOT) 47H, Alanine Aminotransferase (ALT/SGPT) 86H, Alkaline Phosphatase 102, Total Protein 5.8L, Albumin 3.4 10/15/19 06:34: Glucometer 99 10/15/19 10:52: Glucometer 127H 10/15/19 12:12: Blood Gas Puncture Site RT RAD, Blood Gas Patient Temperature 36.6, Arterial Blood pH 7.44H, Arterial Blood Partial Pressure CO2 44, Arterial Blood Partial Pressure O2 84, Arterial Blood HCO3 29H, Arterial Blood Total CO2 30.7, Arterial Blood Oxygen Saturation 97, Arterial Blood Base Excess 5.2H, Garry Test YES-POS, Blood Gas Ventilator Setting NO, Blood Gas Inspired Oxygen 4 L 10/15/19 12:30: Lactic Acid Level 1.20, B-Type Natriuretic Peptide 468.7H, Procalcitonin 0.04 10/15/19 15:35: Glucometer 168H 10/15/19 20:59: Glucometer 158H 10/16/19 06:37: Glucometer 122H 10/16/19 07:01: White Blood Count 16.4H, Red Blood Count 4.75, Hemoglobin 13.6, Hematocrit 43, Mean Corpuscular Volume 91, Mean Corpuscular Hemoglobin 29, Mean Corpuscular Hemoglobin Concent 32, Red Cell Distribution Width 15.3H, Platelet Count 307, Mean Platelet Volume 10.8H, Neutrophils (%) (Auto) 86H, Lymphocytes (%) (Auto) 8L, Monocytes (%) (Auto) 6, Eosinophils (%) (Auto) 0, Basophils (%) (Auto) 0, Neutrophils # (Auto) 14.0H, Lymphocytes # (Auto) 1.3, Monocytes # (Auto) 1.0, Eosinophils # (Auto) 0.1, Basophils # (Auto) 0.0, Neutrophils % (Manual) 91, Lymphocytes % (Manual) 4, Monocytes % (Manual) 3, Eosinophils % (Manual) 1, Basophils % (Manual) 0, Band Neutrophils 1, Anisocytosis SLIGHT, Sodium Level 141, Potassium Level 3.7, Chloride Level 99, Carbon Dioxide Level 29, Anion Gap 13, Blood Urea Nitrogen 29H, Creatinine 0.87, Estimat Glomerular Filtration Rate > 60, BUN/Creatinine Ratio 33, Glucose Level 112H, Calcium Level 9.5, Corrected Calcium 9.8, Total Bilirubin 1.8H, Aspartate Amino Transf (AST/SGOT) 33, Alanine Aminotransferase (ALT/SGPT) 77H, Alkaline Phosphatase 112, B-Type Natriuretic Peptide 485.3H, Total Protein 6.2L, Albumin 3.6 10/16/19 11:01: Glucometer 234H 10/16/19 14:00: Glucometer 162H 10/16/19 15:28: Glucometer 118H 10/16/19 20:08: Glucometer 178H 10/17/19 06:08: Glucometer 93 10/17/19 10:51: Glucometer 151H 10/17/19 16:18: Glucometer 129H 10/17/19 21:29: Glucometer 122H 10/18/19 05:41: Glucometer 90 10/18/19 10:33: Glucometer 168H 10/18/19 15:40: Glucometer 176H 10/18/19 20:04: Glucometer 157H 10/19/19 05:58: Glucometer 107 10/19/19 06:07: White Blood Count 17.8H, Red Blood Count 4.39, Hemoglobin 12.4, Hematocrit 41, Mean Corpuscular Volume 94, Mean Corpuscular Hemoglobin 28, Mean Corpuscular Hemoglobin Concent 30L, Red Cell Distribution Width 15.6H, Platelet Count 263, Mean Platelet Volume 10.5H, Neutrophils (%) (Auto) 85H, Lymphocytes (%) (Auto) 7L, Monocytes (%) (Auto) 7, Eosinophils (%) (Auto) 1, Basophils (%) (Auto) 0, Neutrophils # (Auto) 15.2H, Lymphocytes # (Auto) 1.3, Monocytes # (Auto) 1.2H, Eosinophils # (Auto) 0.2, Basophils # (Auto) 0.0, Sodium Level 141, Potassium Level 3.7, Chloride Level 101, Carbon Dioxide Level 28, Anion Gap 12, Blood Urea Nitrogen 25H, Creatinine 0.79, Estimat Glomerular Filtration Rate > 60, BUN/Creatinine Ratio 32, Glucose Level 110H, Calcium Level 8.7, Corrected Calcium 9.2, Total Bilirubin 1.1H, Aspartate Amino Transf (AST/SGOT) 25, Alanine Aminotransferase (ALT/SGPT) 48, Alkaline Phosphatase 105, Total Protein 5.6L, Albumin 3.4 10/19/19 10:59: Glucometer 161H 10/19/19 15:19: Glucometer 153H 10/19/19 20:33: Glucometer 122H 10/20/19 05:37: Glucometer 86 10/20/19 11:09: Glucometer 122H 10/20/19 15:43: Glucometer 160H 10/20/19 20:36: Glucometer 156H 10/21/19 05:28: Glucometer 98 10/21/19 10:48: Glucometer 140H 10/21/19 15:14: Glucometer 152H 10/21/19 20:18: Glucometer 114H 10/22/19 05:05: White Blood Count 14.5H, Red Blood Count 4.25L, Hemoglobin 12.3, Hematocrit 40, Mean Corpuscular Volume 94, Mean Corpuscular Hemoglobin 29, Mean Corpuscular Hemoglobin Concent 31L, Red Cell Distribution Width 15.5H, Platelet Count 232, Mean Platelet Volume 10.5H, Neutrophils (%) (Auto) 84H, Lymphocytes (%) (Auto) 8L, Monocytes (%) (Auto) 5, Eosinophils (%) (Auto) 2, Basophils (%) (Auto) 0, Neutrophils # (Auto) 12.2H, Lymphocytes # (Auto) 1.2, Monocytes # (Auto) 0.8, Eosinophils # (Auto) 0.3, Basophils # (Auto) 0.0, Neutrophils % (Manual) 88, Lymphocytes % (Manual) 7, Monocytes % (Manual) 3, Eosinophils % (Manual) 2, Sodium Level 142, Potassium Level 4.0, Chloride Level 101, Carbon Dioxide Level 29, Anion Gap 12, Blood Urea Nitrogen 21H, Creatinine 0.82, Estimat Glomerular Filtration Rate > 60, BUN/Creatinine Ratio 26, Glucose Level 107H, Calcium Level 9.2, Phosphorus Level 3.9, Magnesium Level 1.6 10/22/19 10:53: Glucometer 95 10/22/19 15:55: Glucometer 138H 10/22/19 20:23: Glucometer 105 10/23/19 04:55: White Blood Count 9.9, Red Blood Count 4.03L, Hemoglobin 11.5, Hematocrit 38, Mean Corpuscular Volume 94, Mean Corpuscular Hemoglobin 29, Mean Corpuscular Hemoglobin Concent 30L, Red Cell Distribution Width 15.9H, Platelet Count 208, Mean Platelet Volume 11.2H, Neutrophils (%) (Auto) 82H, Lymphocytes (%) (Auto) 10L, Monocytes (%) (Auto) 7, Eosinophils (%) (Auto) 2, Basophils (%) (Auto) 0, Neutrophils # (Auto) 8.1H, Lymphocytes # (Auto) 0.9L, Monocytes # (Auto) 0.7, Eosinophils # (Auto) 0.2, Basophils # (Auto) 0.0, Sodium Level 141, Potassium Level 3.6, Chloride Level 101, Carbon Dioxide Level 27, Anion Gap 13, Blood Urea Nitrogen 16, Creatinine 0.76, Estimat Glomerular Filtration Rate > 60, BUN/Creatinine Ratio 21, Glucose Level 98, Calcium Level 8.9, Phosphorus Level 3.4, Magnesium Level 1.6 10/23/19 10:53: Glucometer 146H 10/23/19 15:20: Glucometer 99 10/23/19 20:19: Glucometer 122H 10/24/19 05:09: Glucometer 106 10/24/19 05:33: White Blood Count 9.0, Red Blood Count 4.18L, Hemoglobin 12.2, Hematocrit 40, Mean Corpuscular Volume 95, Mean Corpuscular Hemoglobin 29, Mean Corpuscular Hemoglobin Concent 31L, Red Cell Distribution Width 15.6H, Platelet Count 193, Mean Platelet Volume 11.2H, Neutrophils (%) (Auto) 81H, Lymphocytes (%) (Auto) 10L, Monocytes (%) (Auto) 7, Eosinophils (%) (Auto) 2, Basophils (%) (Auto) 0, Neutrophils # (Auto) 7.3, Lymphocytes # (Auto) 0.9L, Monocytes # (Auto) 0.6, Eosinophils # (Auto) 0.2, Basophils # (Auto) 0.0, Sodium Level 141, Potassium Level 3.8, Chloride Level 101, Carbon Dioxide Level 28, Anion Gap 12, Blood Urea Nitrogen 18, Creatinine 0.76, Estimat Glomerular Filtration Rate > 60, BUN/Creatinine Ratio 24, Glucose Level 97, Calcium Level 9.4, Phosphorus Level 3.8, Magnesium Level 1.8 10/25/19 04:47: White Blood Count 8.5, Red Blood Count 4.13L, Hemoglobin 12.0, Hematocrit 39, Mean Corpuscular Volume 94, Mean Corpuscular Hemoglobin 29, Mean Corpuscular Hemoglobin Concent 31L, Red Cell Distribution Width 15.4H, Platelet Count 189, Mean Platelet Volume 10.7H, Neutrophils (%) (Auto) 82H, Lymphocytes (%) (Auto) 10L, Monocytes (%) (Auto) 5, Eosinophils (%) (Auto) 3, Basophils (%) (Auto) 0, Neutrophils # (Auto) 6.9, Lymphocytes # (Auto) 0.8L, Monocytes # (Auto) 0.5, Eosinophils # (Auto) 0.3, Basophils # (Auto) 0.0, Sodium Level 142, Potassium Level 3.9, Chloride Level 99, Carbon Dioxide Level 30, Anion Gap 13, Blood Urea Nitrogen 20H, Creatinine 0.99, Estimat Glomerular Filtration Rate 55, BUN/Creatinine Ratio 20, Glucose Level 105, Calcium Level 9.4, Phosphorus Level 4.6, Magnesium Level 1.7 10/26/19 05:36: White Blood Count 8.4, Red Blood Count 4.25L, Hemoglobin 12.2, Hematocrit 39, Mean Corpuscular Volume 92, Mean Corpuscular Hemoglobin 29, Mean Corpuscular Hemoglobin Concent 31L, Red Cell Distribution Width 15.1H, Platelet Count 175, Mean Platelet Volume 10.6H, Neutrophils (%) (Auto) 87H, Lymphocytes (%) (Auto) 6L, Monocytes (%) (Auto) 5, Eosinophils (%) (Auto) 1, Basophils (%) (Auto) 0, Neutrophils # (Auto) 7.3, Lymphocytes # (Auto) 0.5L, Monocytes # (Auto) 0.4, Eosinophils # (Auto) 0.1, Basophils # (Auto) 0.0, Sodium Level 138, Potassium Level 4.4, Chloride Level 98, Carbon Dioxide Level 25, Anion Gap 15H, Blood Urea Nitrogen 21H, Creatinine 1.00, Estimat Glomerular Filtration Rate 54, BUN/Creatinine Ratio 21, Glucose Level 147H, Calcium Level 9.8, Phosphorus Level 3.8, Magnesium Level 1.6 Pending Labs Laboratory Tests 10/14/19 05:32: Mean Blood Glucose 128, Hemoglobin A1c 6.1 10/14/19 15:25: Glucometer 211 10/14/19 19:57: Glucometer 113 10/15/19 05:55: White Blood Count 21.1, Red Blood Count 4.68, Hemoglobin 13.2, Hematocrit 42, Mean Corpuscular Volume 90, Mean Corpuscular Hemoglobin 28, Mean Corpuscular Hemoglobin Concent 31, Red Cell Distribution Width 15.7, Platelet Count 348, Mean Platelet Volume 10.5, Neutrophils (%) (Auto) 85, Lymphocytes (%) (Auto) 8, Monocytes (%) (Auto) 7, Eosinophils (%) (Auto) 0, Basophils (%) (Auto) 0, Neutrophils # (Auto) 17.9, Lymphocytes # (Auto) 1.7, Monocytes # (Auto) 1.4, Eosinophils # (Auto) 0.1, Basophils # (Auto) 0.0, Sodium Level 140, Potassium Level 3.9, Chloride Level 102, Carbon Dioxide Level 25, Anion Gap 13, Blood Urea Nitrogen 33, Creatinine 0.96, Estimat Glomerular Filtration Rate 57, BUN/Creatinine Ratio 34, Glucose Level 106, Calcium Level 9.0, Corrected Calcium 9.5, Total Bilirubin 1.4, Aspartate Amino Transf (AST/SGOT) 47, Alanine Aminotransferase (ALT/SGPT) 86, Alkaline Phosphatase 102, Total Protein 5.8, Albumin 3.4 10/15/19 06:34: Glucometer 99 10/15/19 10:52: Glucometer 127 10/15/19 12:12: Blood Gas Puncture Site RT RAD, Blood Gas Patient Temperature 36.6, Arterial Blood pH 7.44, Arterial Blood Partial Pressure CO2 44, Arterial Blood Partial Pressure O2 84, Arterial Blood HCO3 29, Arterial Blood Total CO2 30.7, Arterial Blood Oxygen Saturation 97, Arterial Blood Base Excess 5.2, Garry Test YES-POS, Blood Gas Ventilator Setting NO, Blood Gas Inspired Oxygen 4 L 10/15/19 12:30: Lactic Acid Level 1.20, B-Type Natriuretic Peptide 468.7, Procalcitonin 0.04 10/15/19 15:35: Glucometer 168 10/15/19 20:59: Glucometer 158 10/16/19 06:37: Glucometer 122 10/16/19 07:01: White Blood Count 16.4, Red Blood Count 4.75, Hemoglobin 13.6, Hematocrit 43, Mean Corpuscular Volume 91, Mean Corpuscular Hemoglobin 29, Mean Corpuscular Hemoglobin Concent 32, Red Cell Distribution Width 15.3, Platelet Count 307, Mean Platelet Volume 10.8, Neutrophils (%) (Auto) 86, Lymphocytes (%) (Auto) 8, Monocytes (%) (Auto) 6, Eosinophils (%) (Auto) 0, Basophils (%) (Auto) 0, Neutrophils # (Auto) 14.0, Lymphocytes # (Auto) 1.3, Monocytes # (Auto) 1.0, Eosinophils # (Auto) 0.1, Basophils # (Auto) 0.0, Neutrophils % (Manual) 91, Lymphocytes % (Manual) 4, Monocytes % (Manual) 3, Eosinophils % (Manual) 1, Basophils % (Manual) 0, Band Neutrophils 1, Anisocytosis SLIGHT, Sodium Level 141, Potassium Level 3.7, Chloride Level 99, Carbon Dioxide Level 29, Anion Gap 13, Blood Urea Nitrogen 29, Creatinine 0.87, Estimat Glomerular Filtration Rate > 60, BUN/Creatinine Ratio 33, Glucose Level 112, Calcium Level 9.5, Corrected Calcium 9.8, Total Bilirubin 1.8, Aspartate Amino Transf (AST/SGOT) 33, Alanine Aminotransferase (ALT/SGPT) 77, Alkaline Phosphatase 112, B-Type Natriuretic Peptide 485.3, Total Protein 6.2, Albumin 3.6 10/16/19 11:01: Glucometer 234 10/16/19 14:00: Glucometer 162 10/16/19 15:28: Glucometer 118 10/16/19 20:08: Glucometer 178 10/17/19 06:08: Glucometer 93 10/17/19 10:51: Glucometer 151 10/17/19 16:18: Glucometer 129 10/17/19 21:29: Glucometer 122 10/18/19 05:41: Glucometer 90 10/18/19 10:33: Glucometer 168 10/18/19 15:40: Glucometer 176 10/18/19 20:04: Glucometer 157 10/19/19 05:58: Glucometer 107 10/19/19 06:07: White Blood Count 17.8, Red Blood Count 4.39, Hemoglobin 12.4, Hematocrit 41, Mean Corpuscular Volume 94, Mean Corpuscular Hemoglobin 28, Mean Corpuscular Hemoglobin Concent 30, Red Cell Distribution Width 15.6, Platelet Count 263, Mean Platelet Volume 10.5, Neutrophils (%) (Auto) 85, Lymphocytes (%) (Auto) 7, Monocytes (%) (Auto) 7, Eosinophils (%) (Auto) 1, Basophils (%) (Auto) 0, Neutrophils # (Auto) 15.2, Lymphocytes # (Auto) 1.3, Monocytes # (Auto) 1.2, Eosinophils # (Auto) 0.2, Basophils # (Auto) 0.0, Sodium Level 141, Potassium Level 3.7, Chloride Level 101, Carbon Dioxide Level 28, Anion Gap 12, Blood Urea Nitrogen 25, Creatinine 0.79, Estimat Glomerular Filtration Rate > 60, BUN/Creatinine Ratio 32, Glucose Level 110, Calcium Level 8.7, Corrected Calcium 9.2, Total Bilirubin 1.1, Aspartate Amino Transf (AST/SGOT) 25, Alanine Aminotransferase (ALT/SGPT) 48, Alkaline Phosphatase 105, Total Protein 5.6, Albumin 3.4 10/19/19 10:59: Glucometer 161 10/19/19 15:19: Glucometer 153 10/19/19 20:33: Glucometer 122 10/20/19 05:37: Glucometer 86 10/20/19 11:09: Glucometer 122 10/20/19 15:43: Glucometer 160 10/20/19 20:36: Glucometer 156 10/21/19 05:28: Glucometer 98 10/21/19 10:48: Glucometer 140 10/21/19 15:14: Glucometer 152 10/21/19 20:18: Glucometer 114 10/22/19 05:05: White Blood Count 14.5, Red Blood Count 4.25, Hemoglobin 12.3, Hematocrit 40, Mean Corpuscular Volume 94, Mean Corpuscular Hemoglobin 29, Mean Corpuscular Hemoglobin Concent 31, Red Cell Distribution Width 15.5, Platelet Count 232, Mean Platelet Volume 10.5, Neutrophils (%) (Auto) 84, Lymphocytes (%) (Auto) 8, Monocytes (%) (Auto) 5, Eosinophils (%) (Auto) 2, Basophils (%) (Auto) 0, Neutrophils # (Auto) 12.2, Lymphocytes # (Auto) 1.2, Monocytes # (Auto) 0.8, Eosinophils # (Auto) 0.3, Basophils # (Auto) 0.0, Neutrophils % (Manual) 88, Lymphocytes % (Manual) 7, Monocytes % (Manual) 3, Eosinophils % (Manual) 2, Sodium Level 142, Potassium Level 4.0, Chloride Level 101, Carbon Dioxide Level 29, Anion Gap 12, Blood Urea Nitrogen 21, Creatinine 0.82, Estimat Glomerular Filtration Rate > 60, BUN/Creatinine Ratio 26, Glucose Level 107, Calcium Level 9.2, Phosphorus Level 3.9, Magnesium Level 1.6 10/22/19 10:53: Glucometer 95 10/22/19 15:55: Glucometer 138 10/22/19 20:23: Glucometer 105 10/23/19 04:55: White Blood Count 9.9, Red Blood Count 4.03, Hemoglobin 11.5, Hematocrit 38, Mean Corpuscular Volume 94, Mean Corpuscular Hemoglobin 29, Mean Corpuscular Hem oglobin Concent 30, Red Cell Distribution Width 15.9, Platelet Count 208, Mean Platelet Volume 11.2, Neutrophils (%) (Auto) 82, Lymphocytes (%) (Auto) 10, Monocytes (%) (Auto) 7, Eosinophils (%) (Auto) 2, Basophils (%) (Auto) 0, Neutrophils # (Auto) 8.1, Lymphocytes # (Auto) 0.9, Monocytes # (Auto) 0.7, Eosinophils # (Auto) 0.2, Basophils # (Auto) 0.0, Sodium Level 141, Potassium L evel 3.6, Chloride Level 101, Carbon Dioxide Level 27, Anion Gap 13, Blood Urea Nitrogen 16, Creatinine 0.76, Estimat Glomerular Filtration Rate > 60, BUN/Creatinine Ratio 21, Glucose Level 98, Calcium Level 8.9, Phosphorus Level 3.4, Magnesium Level 1.6 10/23/19 10:53: Glucometer 146 10/23/19 15:20: Glucometer 99 10/23/19 20:19: Glucometer 122 10/24/19 05:09: Glucometer 106 10/24/19 05:33: White Blood Count 9.0, Red Blood Count 4.18, Hemoglobin 12.2, Hematocrit 40, Mean Corpuscular Volume 95, Mean Corpuscular Hemoglobin 29, Mean Corpuscular Hemoglobin Concent 31, Red Cell Distribution Width 15.6, Platelet Count 193, Mean Platelet Volume 11.2, Neutrophils (%) (Auto) 81, Lymphocytes (%) (Auto) 10, Monocytes (%) (Auto) 7, Eosinophils (%) (Auto) 2, Basophils (%) (Auto) 0, Neutrophils # (Auto) 7.3, Lymphocytes # (Auto) 0.9, Monocytes # (Auto) 0.6, Eosinophils # (Auto) 0.2, Basophils # (Auto) 0.0, Sodium Level 141, Potassium Level 3.8, Chloride Level 101, Carbon Dioxide Level 28, Anion Gap 12, Blood Urea Nitrogen 18, Creatinine 0.76, Estimat Glomerular Filtration Rate > 60, BUN/Creatinine Ratio 24, Glucose Level 97, Calcium Level 9.4, Phosphorus Level 3.8, Magnesium Level 1.8 10/25/19 04:47: White Blood Count 8.5, Red Blood Count 4.13, Hemoglobin 12.0, Hematocrit 39, Mean Corpuscular Volume 94, Mean Corpuscular Hemoglobin 29, Mean Corpuscular Hemoglobin Concent 31, Red Cell Distribution Width 15.4, Platelet Count 189, Mean Platelet Volume 10.7, Neutrophils (%) (Auto) 82, Lymphocytes (%) (Auto) 10, Monocytes (%) (Auto) 5, Eosinophils (%) (Auto) 3, Basophils (%) (Auto) 0, Neutrophils # (Auto) 6.9, Lymphocytes # (Auto) 0.8, Monocytes # (Auto) 0.5, Eosinophils # (Auto) 0.3, Basophils # (Auto) 0.0, Sodium Level 142, Potassium Level 3.9, Chloride Level 99, Carbon Dioxide Level 30, Anion Gap 13, Blood Urea Nitrogen 20, Creatinine 0.99, Estimat Glomerular Filtration Rate 55, BUN/Creatinine Ratio 20, Glucose Level 105, Calcium Level 9.4, Phosphorus Level 4.6, Magnesium Level 1.7 10/26/19 05:36: White Blood Count 8.4, Red Blood Count 4.25, Hemoglobin 12.2, Hematocrit 39, Mean Corpuscular Volume 92, Mean Corpuscular Hemoglobin 29, Mean Corpuscular Hemoglobin Concent 31, Red Cell Distribution Width 15.1, Platelet Count 175, Mean Platelet Volume 10.6, Neutrophils (%) (Auto) 87, Lymphocytes (%) (Auto) 6, Monocytes (%) (Auto) 5, Eosinophils (%) (Auto) 1, Basophils (%) (Auto) 0, Neutrophils # (Auto) 7.3, Lymphocytes # (Auto) 0.5, Monocytes # (Auto) 0.4, Eosinophils # (Auto) 0.1, Basophils # (Auto) 0.0, Sodium Level 138, Potassium Level 4.4, Chloride Level 98, Carbon Dioxide Level 25, Anion Gap 15, Blood Urea Nitrogen 21, Creatinine 1.00, Estimat Glomerular Filtration Rate 54, BUN/Creatinine Ratio 21, Glucose Level 147, Calcium Level 9.8, Phosphorus Level 3.8, Magnesium Level 1.6 Discharge Home Medications: Active Scripts Active Meclizine HCl 25 Mg Tablet 50 Mg PO Q6H PRN 60 Days Senna-Time S Tablet (Sennosides/Docusate Sodium) 1 Each Tablet 1 Ea PO BID 60 Days Docusate Sodium 100 Mg Capsule 100 Mg PO BID 60 Days Loperamide (Loperamide HCl) 2 Mg Capsule 2 Mg PO PRN PRN 60 Days Calcium Antacid (Calcium Carbonate) 200 Mg Tab.chew 500 Mg PO TID PRN 60 Days Montelukast Sodium 10 Mg Tablet 10 Mg PO DAILY@0900 60 Days Advair Hfa 115-21 Mcg Inhaler (Fluticasone/Salmeterol) 12 Gm Hfa.aer.ad 2 Puff IH BID@08,20 PRN 60 Days Furosemide 40 Mg Tablet 40 Mg PO DAILY 60 Days Klor-Con M20 (Potassium Chloride) 20 Meq Tab.er.prt 20 Meq PO DAILY@0700 60 Days Alprazolam 0.25 Mg Tablet 0.25 Mg PO Q8H PRN Diltiazem 24Hr Cd (Diltiazem HCl) 240 Mg Cap.er.24h 240 Mg PO DAILY@0900 60 Days Carvedilol 12.5 Mg Tablet 12.5 Mg PO BID 60 Days Iprat-Albut 0.5-3(2.5) mg/3 ml (Ipratropium/Albuterol Sulfate) 3 Ml Ampul.neb 3 Ml INH RTQID 60 Days Reported Atorvastatin Calcium 20 Mg Tablet 20 Mg PO HS LAST FILLED 06-06-2019 #90/90DS Celexa (Citalopram Hydrobromide) 20 Mg Tablet 20 Mg PO HS LAST FILLED 06-06-2019 #90/90DS [Instaflex] 1 Tab PO DAILY Eliquis (Apixaban) 5 Mg Tablet 5 Mg PO BID LAST FILLED 06-06-2019 #180/90DS Instructions to patient/family Please see electronic discharge instructions given to patient. Diagnosis/Problems Diagnosis/Problems (1) Myopathy (2) Memory loss (3) Denial about severity of illness (4) COPD with acute exacerbation Status: Resolved Resolution Date/Time: 10/14/19 @ 14:22 (5) Paroxysmal atrial fibrillation Status: Chronic (6) Orthostatic hypotension Status: Resolved Resolution Date/Time: 10/14/19 @ 14:22 (7) Atrial fibrillation with rapid ventricular response Status: Acute (8) Noncompliance with medication regimen Status: Chronic (9) Hypoxia Status: Chronic (10) Uncontrolled hypertension Status: Acute (11) Hyperglycemia Status: Acute (12) Delirium Clinical Quality Measures DVT/VTE Risk/Contraindication: Risk Factor Score Per Nursin RFS Level Per Nursing on Admit: 3=High JEROME NEAL DO Oct 26, 2019 08:48
[2019-10-26 08:55] VITALS: BP 133/67
[2019-10-26] MEDS: DILTIAZEM 240 MG (CARDIZEM CD) CAP PO SCH (08:56)
[2019-10-26] MEDS: FUROSEMIDE 40 MG (LASIX) TAB PO SCH (08:56)
[2019-10-26] MEDS: CARVEDILOL 12.5 MG (COREG) TABLET PO SCH (08:56)
[2019-10-26] MEDS: MONTELUKAST 10 MG (SINGULAIR) TAB PO SCH (08:56)
[2019-10-26] MEDS: SENNA W/DOCUSATE (SENOKOT S) TABLET PO SCH (08:56)
[2019-10-26] MEDS: APIXABAN 5 MG (ELIQUIS) TABLET PO SCH (08:56)
[2019-10-26] MEDS: POLYETHYLENE GLYCOL 17 GM (MIRALAX) PACK PO SCH (09:40)
[2019-10-26] MEDS: DOCUSATE SODIUM 100 MG (COLACE) CAP PO SCH (09:40)
--- NOTE | 2019-10-26 10:37 | Therapy Team Discharge Summary ---
Therapy Discharge Summary Discharge Recommendations Date of Discharge Occupational Therapy Pt admits with vertigo, HTN, CHF, pneumonia dx. Pt admitting QC's include: oral hygiene 6, showering 4, UB dress 5, LB dress 2, footwear 2, toileting 4, toilet transfer 3. Pt and OT work towards higher functional IND within ADL tasks through ADL activities, functional activities and strengthening, education/ safety training. Pt limited by poor balance, poor safety awareness, impulsivity, and lethargy. Pt met oral hygiene and feeding LTGs. Pt d/c OT services from [facility], continued OT services recommended within SNF. In home environment, pt expected to utilize grab bars within tub/ shower, tub transfer bench, and bedside commode. Decreased Activ Tolerance, Decreased Safety Aware, Decreased UE Strength, Impaired Bed Mobility, Impaired Cognition, Impaired Coordination, Impaired Funct Balance, Impaired Self-Care Skills, Restricted Funct UE ROM PT Intermediate Goals Chief Radiology Goals PT Chief Radiology Goals Time Frame: Nov 04, 2019 Roll Left to Right (QC): 6 Sit to Lying (QC): 6 Lying-Sitting on Side/Bed(QC): 6 Sit to Stand (QC): 6 Chair/Uch-so-Nalcm Xfer(QC): 6 Car Transfer (QC): 4 Does the Patient Walk: Yes Walk 10 feet (QC): 6 Walk 10ft-Uneven Surface(QC): 6 Walk 50ft with 2 Turns (QC): 6 Walk 150 ft (QC): 6 Does the Pt use WC or Scooter?: No Wheel 50 feet with 2 turns (QC: 9 1 Step (curb) (QC): 4 4 Steps (QC): 4 12 Steps (QC): 9 Picking up an Object (QC): 4 OT Chief Radiology Goals Chief Radiology Goals Time Frame: Oct 28, 2019 Eating (QC): 6 (met-10/24/2019) Oral Hygiene (QC): 6 (met-10/24/2019) Shower/Bathe Self (QC): 6 (nt met) Upper Body Dressing (QC): 6 (nt met) Lower Body Dressing (QC): 6 (not met) On/Off Footwear (QC): 6 (not met) Toileting Hygiene (QC): 6 (not met) Toilet/Commode Transfer (QC): 6 Additional Goals: 1-Demonstrate ADL Tasks, 2-Verbalize Understanding, 3- ImproveStrength/Rex 1=Demonstrate adherence to instructed precautions during ADL tasks. 2=Patient will verbalize/demonstrate understanding of assistive devices/modifications for ADL. 3=Patient will improve strength/tolerance for activity to enable patient to perform ADL's. Speech Chief Radiology Goals Intermediate Goals Patient will improve cognitive-communication necessary for safety and daily living tasks with minimal assist. PEÑA NICHOLS OTR Oct 26, 2019 10:37
[2019-10-26 11:00] VITALS: BP 133/67
--- NOTE | 2019-10-26 12:15 | Cardiology Progress Note ---
Cardiology SOAP Progress Note Subjective: No cardiac complaints. Objective: I&O/Vital Signs 10/26/19 10/26/19 10/26/19 10/26/19 05:46 07:17 08:55 09:00 Temp 37.3 Pulse 75 66 Resp 20 B/P (MAP) 133/73 (93) 133/67 (89) Pulse Ox 90 97 100 O2 Delivery Nasal Cannula Nasal Cannula Nasal Cannula O2 Flow Rate 2.00 2.00 2.00 10/26/19 11:00 Temp 37.3 Pulse 66 Resp 20 B/P (MAP) 133/67 Pulse Ox 100 O2 Delivery Nasal Cannula O2 Flow Rate 2.00 10/26/19 00:00 Intake Total 440 ml Balance 440 ml Weight (Pounds): 170 Weight (Ounces): 0 Weight (Calculated Kilograms): 77.763111 Respiratory: chest is bilaterally symmetric, lungs clear to auscultation Cardiovascular: irregularly irregular, S1 and S2 Gastrointestional: soft, audible bowel sounds Extremities: normal range of motion, non-tender, normal inspection, no lower extremity edema bilateral Neurologic/Psychiatric: no motor/sensory deficits, alert, normal mood/affect, grossly intact Skin: normal color, warm/dry Results/Procedures: Labs Laboratory Tests 10/26/19 05:36: White Blood Count 8.4, Red Blood Count 4.25L, Hemoglobin 12.2, Hematocrit 39, Mean Corpuscular Volume 92, Mean Corpuscular Hemoglobin 29, Mean Corpuscular Hemoglobin Concent 31L, Red Cell Distribution Width 15.1H, Platelet Count 175, Mean Platelet Volume 10.6H, Neutrophils (%) (Auto) 87H, Lymphocytes (%) (Auto) 6L, Monocytes (%) (Auto) 5, Eosinophils (%) (Auto) 1, Basophils (%) (Auto) 0, Neutrophils # (Auto) 7.3, Lymphocytes # (Auto) 0.5L, Monocytes # (Auto) 0.4, Eosinophils # (Auto) 0.1, Basophils # (Auto) 0.0, Sodium Level 138, Potassium Level 4.4, Chloride Level 98, Carbon Dioxide Level 25, Anion Gap 15H, Blood Urea Nitrogen 21H, Creatinine 1.00, Estimat Glomerular Filtration Rate 54, BUN/Creatinine Ratio 21, Glucose Level 147H, Calcium Level 9.8, Phosphorus Level 3.8, Magnesium Level 1.6 A/P: Assessment/Dx: Admitted for Intractable dizziness, improved COPD, Mild acute on chronic systolic/diastolic heart failure, Atrial fibrillation with controlled ventricular rate CAD, History of smoking Plan: Plan: Improved neurological status. Dizziness. Telemetry. Defer to the primary team. COPD, defer treatment to Dr. Verde. Likely the cause of shortness of breath. Mild acute on chronic systolic/diastolic heart failure. BNP over 400 on adm ission. Currently BNP just over 400. Unlikely florid congestive heart failure. Can continue low-dose IV Lasix. Atrial fibrillation with controlled ventricular rate, continue Cardizem and oral anticoagulation. CAD, history of PCI and stents. No chest pain. All troponins negative. No further invasive cardiac management at this point in time. History of smoking Once discharge patient will follow with outpatient filing machine operator. Thank you for your consultation. Please call me if you have any questions. Edwina Bermudez MD, FACP, FACC, FSCAI, FHRS, CCDS Interventional Cardiology Cardiac Electrophysiology Vascular Medicine and Endovascular Interventions Faby BERMUDEZ MD Oct 26, 2019 12:15
--- NOTE | 2019-10-26 13:22 | Therapy Team Discharge Summary ---
Therapy Discharge Summary Discharge Recommendations Date of Discharge Oct 26, 2019 at 11:00 Physical Therapy Patient came to rehab with vertigo/HTN/CHF/penum[place]. Upon evaluation patient performed bed mobility with SBA, sit to stand and transfers with min assist, car transfer min assist, ambulated 150' with a rolling walker with min assist (including 50' with at least 2 turns of 90 degrees and 10' over an uneven surface), and went up and down 4 steps using 2 handrails with min assist. Patient has been performing bed mobility and transfer training, balance and endurance training, functional strengthening, stair training, gait training, and education. 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 Now, patient is max assist for bed mobility and transfers, ambulates 50' with a rolling walker with mod assist. Patient was discharged from this facility today and will be discharged from PT at this time. Occupational Therapy Decreased Activ Tolerance, Decreased Safety Aware, Decreased UE Strength, Impaired Bed Mobility, Impaired Cognition, Impaired Coordination, Impaired Funct Balance, Impaired Self-Care Skills, Restricted Funct UE ROM PT Chcf Goals Chcf Goals PT Insurance Territory Manager Goals Time Frame: Nov 04, 2019 Roll Left to Right (QC): 6 Sit to Lying (QC): 6 Lying-Sitting on Side/Bed(QC): 6 Sit to Stand (QC): 6 Chair/Qef-oe-Mqnzv Xfer(QC): 6 Car Transfer (QC): 4 Does the Patient Walk: Yes Walk 10 feet (QC): 6 Walk 10ft-Uneven Surface(QC): 6 Walk 50ft with 2 Turns (QC): 6 Walk 150 ft (QC): 6 Does the Pt use WC or Scooter?: No Wheel 50 feet with 2 turns (QC: 9 1 Step (curb) (QC): 4 4 Steps (QC): 4 12 Steps (QC): 9 Picking up an Object (QC): 4 OT Insurance Territory Manager Goals Insurance Territory Manager Goals Time Frame: Oct 28, 2019 Eating (QC): 6 (met-10/24/2019) Oral Hygiene (QC): 6 (met-10/24/2019) Shower/Bathe Self (QC): 6 (nt met) Upper Body Dressing (QC): 6 (nt met) Lower Body Dressing (QC): 6 (not met) On/Off Footwear (QC): 6 (not met) Toileting Hygiene (QC): 6 (not met) Toilet/Commode Transfer (QC): 6 Additional Goals: 1-Demonstrate ADL Tasks, 2-Verbalize Understanding, 3- ImproveStrength/Rex 1=Demonstrate adherence to instructed precautions during ADL tasks. 2=Patient will verbalize/demonstrate understanding of assistive devices/modifications for ADL. 3=Patient will improve strength/tolerance for activity to enable patient to perform ADL's. Speech Insurance Territory Manager Goals Chcf Goals Patient will improve cognitive-communication necessary for safety and daily living tasks with minimal assist. XIAO COLEY PT Oct 26, 2019 13:22
--- NOTE | 2019-10-26 13:48 | NUR ---
CM/SS DISCHARGE Patient discharged to [facility] for Medicare skilled placement via their transport this a.m. SNF understands to bring wheelchair and O2. IMM2 signed/charted. Discharge discussion was consistent over a 3 day period without any intention to appeal. CARE Assessment completed with patient, reviewed with africa Lee at bedside and with Shahida Alvarez by phone. Processed with [facility]. Faxed orders and CARE Assessment to [facility], prepared packet to accompany patient. Unit RN, patient/family all aware of arrangements for transfer.
== END 2019-10-26 11:00 | DRG 91 ==
PROVIDERS: ADMIT Internal Medicine; ATTEND Internal Medicine
DX: G72.89 Other specified myopathies (principal); I13.0 Hypertensive heart and chronic kidney disease with heart failure and stage 1 through stage 4 chronic kidney disease, or unspecified chronic kidney disease; I50.43 Acute on chronic combined systolic (congestive) and diastolic (congestive) heart failure; N18.9 Chronic kidney disease, unspecified; J43.9 Emphysema, unspecified; I48.0 Paroxysmal atrial fibrillation; M06.9 Rheumatoid arthritis, unspecified; R41.0 Disorientation, unspecified; I95.1 Orthostatic hypotension; R42 Dizziness and giddiness; R73.9 Hyperglycemia, unspecified; Z91.19 Patient's noncompliance with other medical treatment and regimen; R09.89 Other specified symptoms and signs involving the circulatory and respiratory systems; I25.10 Atherosclerotic heart disease of native coronary artery without angina pectoris; E78.00 Pure hypercholesterolemia, unspecified; F41.9 Anxiety disorder, unspecified; F32.9 Major depressive disorder, single episode, unspecified; K21.9 Gastro-esophageal reflux disease without esophagitis; M19.91 Primary osteoarthritis, unspecified site; I25.2 Old myocardial infarction; Z99.81 Dependence on supplemental oxygen; Z87.891 Personal history of nicotine dependence; Z95.5 Presence of coronary angioplasty implant and graft
CPT/HCPCS: 36415; 71045; 71046; 80048; 80053; 82805; 82962; 83036; 83605; 83735; 83880; 84100; 84145; 85007; 85025; 85027; 94640; 94760

== ENCOUNTER 2019-11-02 14:37 | Inpatient (IN) | payer MEDICARE, OTHER ==
[~2019-11-02] VITALS: Ht 162.6 cm; Wt 72.1 kg
[~2019-11-02 14:37] MED LIST changes: -BISACODYL 10 MG SUPP (DULCOLAX) PR PRN; +CALC200T40 PO; -CALCIUM CARBONATE 500 MG (TUMS) TAB.CHEW PO PRN; +CARV12.53 PO; +DILT240C92 PO; +DOCU100C37 PO; -DOCUSATE SODIUM 100 MG (COLACE) CAP PO PRN; -FLEET ENEMA ADULT 1 EA BTL PR PRN; +FLUT12AE4 IH; +FURO40TA4 PO; -HYDR473S34 PO; +HYDR473S61 PO; -LACTULOSE SYRUP 10GM/15ML (ENULOSE) 30ML UDC PO PRN; +LOPE2CAP PO; -LOPERAMIDE 2 MG (IMODIUM) TABLET PO PRN; +MECL-106 PO; +MONT10TA24 PO; -ONDANSETRON 4 MG (ZOFRAN) ORAL DISSOLVE TAB PO PRN; -ONDANSETRON 4 MG/2 ML (SDV) Z0FRAN IV PRN; +POTA20TA8 PO; +SENN-20 PO; -diphenhydrAMINE 25 MG TAB (BENADRYL) PO PRN; -guaiFENesin/CODEINE (ROBITUSSIN AC) 10ML UDC PO PRN
--- NOTE | 2019-11-02 14:56 | ED General ---
General Stated Complaint: AMS Source of Information: Patient, Family History of Present Illness Date Seen by Provider: Nov 02, 2019 Time Seen by Provider: 14:53 Initial Comments 74-year-old female brought in due to generalized weakness. Patient was dis charged from the hospital approximately 2 weeks ago from family. Patient has shingles under her left breast and into her back. She was taking acyclovir for this. Family reports that she just seemed generally weak and not feeling well and that it really started getting worse over the last couple days. I did report that she started taking pain medication about 2 days ago due to the shingles pain. No reports of fever chills. Patient herself states that she is just tired, wants to sleep. She denies feeling bad besides his her generalized weakness. Normally on 2- 4 L home oxygen Allergies and Home Medications Allergies Coded Allergies: Sulfa (Sulfonamide Antibiotics) (Verified Allergy, Unknown, 12/27/17) Home Medications Alprazolam 0.25 Mg Tablet, 0.25 MG PO Q8H PRN for ANXIETY Prescribed by: JEROME NEAL on 10/25/19 1149 Apixaban 5 Mg Tablet, 5 MG PO BID, (Reported) LAST FILLED 06-06-2019 #180/90DS Atorvastatin Calcium 20 Mg Tablet, 20 MG PO HS, (Reported) LAST FILLED 06-06-2019 #90/90DS Calcium Carbonate 200 Mg Tab.chew, 500 MG PO TID PRN for INDIGESTION Prescribed by: JEROME NEAL on 10/25/19 1149 Carvedilol 12.5 Mg Tablet, 12.5 MG PO BID Prescribed by: JEROME NEAL on 10/25/19 1149 Citalopram Hydrobromide 20 Mg Tablet, 20 MG PO HS, (Reported) LAST FILLED 06-06-2019 #90/90DS Diltiazem HCl 240 Mg Cap.er.24h, 240 MG PO DAILY@0900 Prescribed by: JEROME NEAL on 10/25/19 1149 Docusate Sodium 100 Mg Capsule, 100 MG PO BID Prescribed by: JEROME NEAL on 10/25/19 1149 Fluticasone/Salmeterol 12 Gm Hfa.aer.ad, 2 PUFF IH BID@ PRN for SHORTNESS OF BREATH Prescribed by: JEROME NEAL on 10/25/19 1149 Furosemide 40 Mg Tablet, 40 MG PO DAILY Prescribed by: JEROME NEAL on 10/25/19 1149 Ipratropium/Albuterol Sulfate 3 Ml Ampul.neb, 3 ML INH RTQID Prescribed by: JEROME NEAL on 10/25/19 114 Loperamide HCl 2 Mg Capsule, 2 MG PO PRN PRN for DIARRHEA Prescribed by: JEROME NEAL on 10/25/19 1149 Meclizine HCl 25 Mg Tablet, 50 MG PO Q6H PRN for DIZZINESS Prescribed by: JEROME NEAL on 10/25/19 1149 Montelukast Sodium 10 Mg Tablet, 10 MG PO DAILY@0900 Prescribed by: JEROME NEAL on 10/25/19 1149 Potassium Chloride 20 Meq Tab.er.prt, 20 MEQ PO DAILY@0700 Prescribed by: JEROME NEAL on 10/25/19 1149 Sennosides/Docusate Sodium 1 Each Tablet, 1 EA PO BID Prescribed by: JEROME NEAL on 10/25/19 1149 [Instaflex] , 1 TAB PO DAILY, (Reported) Patient Home Medication List Home Medication List Reviewed: Yes Review of Systems Review of Systems Constitutional: No chills; fever, malaise, weakness Respiratory: No cough, No short of breath Cardiovascular: No chest pain Gastrointestinal: No abdominal pain, No nausea, No vomiting Musculoskeletal: no symptoms reported Skin: see HPI Psychiatric/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: No Symptoms Reported Past Zkrqubp-Ojoqzp-Zxmtod Hx Past Med/Social Hx: Reviewed Nursing Past Med/Soc Hx Patient Social History Type Used: Cigarettes Former Smoker, Quit: Aug 27, 2004 2nd Hand Smoke Exposure: No Recent Foreign Travel: No Contact w/Someone Who Travel: No Recent Hopitalizations: No Immunizations Up To Date Date of Pneumonia Vaccine: Sep 17, 2015 Date of Influenza Vaccine: Jul 19, 2019 Seasonal Allergies Seasonal Allergies: No Past Medical History Surgeries: Yes (CARDIAC CATH X 3--STENTS X 4) Cardiac, Coronary Stent, Gallbladder, Tubal Ligation Respiratory: Yes Pneumonia, COPD Currently Using CPAP: No Currently Using BIPAP: No Cardiac: Yes (CHF; CARDIAC CATHS X 3 WITH STENTS X 4) Atrial Fibrillation, Coronary Artery Disease, Heart Attack, High Cholesterol, Hypertension 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: No Vertigo FUR WEIGHER History: Menopausal Sexually Transmitted Disease: No HIV/AIDS: No Genitourinary: No Bladder Infection, Renal Failure Gastrointestinal: No Gastroesophageal Reflux Musculoskeletal: Yes Arthritis, Rheumatoid Arthritis Endocrine: No HEENT: Yes (ONGOING PROBLEMS WITH "CLICKING" NOISE IN LEFT EAR. ) Loss of Vision: Denies Cancer: No Psychosocial: Yes Anxiety, Depression Integumentary: No Blood Disorders: No Adverse Reaction/Blood Tranf: No Family Medical History Cardiovascular disease 19 MOTHER Diabetes mellitus 19 MOTHER Hypertension 19 MOTHER No Pertinent Family Hx LONG HISTORY OF NON-COMPLIANCE Physical Exam Vital Signs Vital Signs - First Documented 11/02/19 14:50 Temp 36.8 Pulse 93 Resp 18 B/P (MAP) 121/86 (98) Pulse Ox 99 O2 Delivery Nasal Cannula O2 Flow Rate 3.00 Capillary Refill : Height, Weight, BMI Height: 5'4.00" Weight: 170lbs. 0oz. 77.419469ng; 29.99 BMI Method:Stated General Appearance: Other (fatigue, mildly lethargic) Neck: Non Tender, Supple Respiratory: Lungs Clear, Normal Breath Sounds Cardiovascular: Regular Rate, Rhythm, No Edema Gastrointestinal: Non Tender, Soft Extremity: Normal Capillary Refill Neurologic/Psychiatric: Oriented x3, No Motor/Sensory Deficits, access service representative II-XII Norm as Tested Skin: Rash (rash under her left breast in the left back consistent with a shingles outbreak) Focused Exam Lactate Level 11/02/19 15:08: Lactic Acid Level 1.16 Lactic Acid Level Laboratory Tests Test 11/02/19 15:08 Lactic Acid Level 1.16 MMOL/L (0.50-2.00) Progress/Results/Core Measures Suspected Sepsis SIRS Temperature: Pulse: Respiratory Rate: Laboratory Tests 11/02/19 14:50: White Blood Count 6.9 Blood Pressure / Mean: 11/02/19 15:08: Lactic Acid Level 1.16 Laboratory Tests 11/02/19 14:50: Creatinine 0.88, Platelet Count 304, Total Bilirubin 0.6 Results/Orders Lab Results Laboratory Tests Test 11/02/19 14:50 11/02/19 15:08 Range/Units White Blood Count 6.9 4.3-11.0 10^3/uL Red Blood Count 4.94 4.35-5.85 10^6/uL Hemoglobin 14.0 11.5-16.0 G/DL Hematocrit 45 35-52 % Mean Corpuscular Volume 91 80-99 FL Mean Corpuscular Hemoglobin 28 25-34 PG Mean Corpuscular Hemoglobin Concent 31 L 32-36 G/DL Red Cell Distribution Width 15.1 H 10.0-14.5 % Platelet Count 304 130-400 10^3/uL Mean Platelet Volume 9.7 7.4-10.4 FL Sodium Level 140 135-145 MMOL/L Potassium Level 4.2 3.6-5.0 MMOL/L Chloride Level 100 98-107 MMOL/L Carbon Dioxide Level 28 21-32 MMOL/L Anion Gap 12 5-14 MMOL/L Blood Urea Nitrogen 15 7-18 MG/DL Creatinine 0.88 0.60-1.30 MG/DL Estimat Glomerular Filtration Rate > 60 BUN/Creatinine Ratio 17 Glucose Level 123 H 70-105 MG/DL Calcium Level 9.6 8.5-10.1 MG/DL Corrected Calcium 9.8 8.5-10.1 MG/DL Total Bilirubin 0.6 0.1-1.0 MG/DL Aspartate Amino Transf (AST/SGOT) 31 5-34 U/L Alanine Aminotransferase (ALT/SGPT) 28 0-55 U/L Alkaline Phosphatase 118 40-136 U/L Troponin I < 0.028 <0.028 NG/ML Total Protein 7.3 6.4-8.2 GM/DL Albumin 3.7 3.2-4.5 GM/DL Lactic Acid Level 1.16 0.50-2.00 MMOL/L Micro Results Microbiology 11/02/19 Influenza Types A,B Antigen (KENA) - Final, Complete My Orders Orders - JUDGE,VIBHA L DO Cbc No Diff (11/02/19 14:56) Comprehensive Metabolic Panel (11/02/19 14:56) Lactic Acid Analyzer (11/02/19 14:56) Troponin I (11/02/19 14:56) Ua Culture If Indicated (11/02/19 14:56) Influenza A And B Antigens (11/02/19 14:56) Ekg Tracing (11/02/19 14:56) Oseltamivir 75 Mg Capsule (Tamiflu 75 (11/02/19 15:45) Chest Pa/Lat (2 View) (11/02/19 15:37) Lactic Acid Analyzer (11/02/19 15:37) Ed Iv/Invasive Line Start (11/02/19 15:37) Ns Iv 1000 Ml (Sodium Chloride 0.9%) (11/02/19 15:37) Vital Signs/I&O 11/02/19 14:50 Temp 36.8 Pulse 93 Resp 18 B/P (MAP) 121/86 (98) Pulse Ox 99 O2 Delivery Nasal Cannula O2 Flow Rate 3.00 Capillary Refill : Departure Communication (Admissions) Time/Spoke to Admitting Phy: 15:40 Impression Primary Impression: Herpes zoster Qualified Codes: B02.8 - Zoster with other complications Additional Impressions: Influenza A Influenza B Disposition: ADMITTED INPATIENT Condition: Stable Admissions Decision to Admit Reason: Admit from ER (General) Decision to Admit/Date: Nov 02, 2019 Time/Decision to Admit Time: 15:43 Departure-Patient Inst. Referrals: JEROME NEAL DO (PCP/Family) Primary Care Physician VIBHA JUDGE DO Nov 02, 2019 14:56
--- NOTE | 2019-11-02 15:03 | NUR ---
SEE LIST FOR CURRENT MEDS
[2019-11-02 15:04] LABS: MEAN PLATELET VOLUME 9.7 FL (7.4-10.4); RED CELL DISTRIBUTION WIDTH 15.1 % (10.0-14.5); WHITE BLOOD COUNT 6.9 10^3/uL (4.3-11.0)
--- NOTE | 2019-11-02 15:20 | NUR ---
KELLEY GARCIA admitted to room 409-1, with an admitting diagnosis of INFLUENZA A,B, on 11/02/19 from ED via [facility], accompanied by STAFF. KELLEY GARCIA introduced to surroundings, call light, bed controls, phone, TV, temperature control, lights, meal times, smoking policy, visitor policy, side rail policy, bathrooms and showers. Patient Rights given to patient in the handbook. KELLEY GARCIA verbalizes understanding that [facility] is not responsible for the loss or damage to any personal effects or valuables that are kept in the patients posession during their hospitalization. The following Patient Care Plans were discussed with the PATIENT: Discharge Planning, INFECTION, INJURY, FALL RISK AND KNOWLEDGE. KELLEY GARCIA verbalizes understanding of Interdisciplinary Patient Education.
[2019-11-02 15:27] LABS: ALANINE AMINOTRANSFERASE 28 U/L (0-55); ALBUMIN 3.7 GM/DL (3.2-4.5); ALKALINE PHOSPHATASE 118 U/L (40-136); BILIRUBIN,TOTAL 0.6 MG/DL (0.1-1.0); BUN/CREATININE RATIO 17; CALCIUM 9.6 MG/DL (8.5-10.1); CARBON DIOXIDE 28 MMOL/L (21-32); CHLORIDE 100 MMOL/L (98-107); CREATININE SERUM 0.88 MG/DL (0.60-1.30); GFR ESTIMATED > 60; GLUCOSE 123 MG/DL (70-105); POTASSIUM 4.2 MMOL/L (3.6-5.0); SODIUM 140 MMOL/L (135-145); TOTAL PROTEIN 7.3 GM/DL (6.4-8.2)
[2019-11-02] MEDS: NS IV 1000 ML 1,000 ML IV SCH ×3 (15:42→20:34)
[2019-11-02] MEDS ORDERED: OSELTAMIVIR 75 MG (TAMIFLU) CAPSULE PO ONE (15:45)
--- NOTE | 2019-11-02 16:05 | Diagnostic Imaging Report ---
EXAM: CHEST PA/LAT (TWO VIEWS). INDICATION: Altered mental status. COMPARISON: 10/22/2019. FINDINGS: Cardiomegaly. Diffuse prominence of the interstitium with some airspace consolidation in the lung bases, similar to the prior exam. No effusions. No pneumothorax. Calcified aorta. No acute osseous findings. IMPRESSION: Persistent cardiomegaly with diffuse interstitial and airspace opacities is similar to the prior exam and suspicious for fluid overload. No pleural effusion. Dictated by: Dictated on workstation # [id number]
[2019-11-02 16:34] VITALS: BP 139/82
[2019-11-02] MEDS ORDERED: VALA1000 PO (18:05)
[2019-11-02] MEDS ORDERED: OXYC-199 PO (18:10)
[2019-11-02 18:25] VITALS: BP 139/82
[2019-11-02] MEDS ORDERED: ENOXAPARIN 40 MG/0.4 ML (LOVENOX) SYR SC SCH (19:30)
[2019-11-02 20:03] VITALS: BP 137/68
[2019-11-02] MEDS ORDERED: CATHETER FLUSH 10 ML SYR IV PRN (20:15)
[2019-11-02] MEDS: OSELTAMIVIR 30 MG (TAMIFLU) CAPSULE PO SCH (20:34)
--- NOTE | 2019-11-02 20:52 | History & Physical-Hospitalist ---
History of Present Illness HPI/Chief Complaint CC: Influenza A and B with Shingles HPI: This is a very complicated 74yoWF clinic patient of mine who recently had a significant decline in her status from respiratory insufficiency from severe COPD and CHF with AF who ultimately required skilled care after failing IRF who was seen in my office on Wednesday for rash on her left breast and dx with shingles and placed on Valtrex who worsened through the rest of the week until she was no longer eating and drinking so she was sent to ER found to have Influenza A and B further complicating her significant medical issues. Patient has had significant delirium and I have assessed her to have a slow to no recover potential. is at the bedside tonight and patient appears to be more lucid today but nonetheless she appears to be more declined. Source: patient, family, RN/MD, old records Exam Limitations: no limitations Date Seen 11/02/19 Time Seen by a Provider: 18:30 Attending Physician Terese Verde DO PCP Terese Verde DO Referring Physician Date of Admission Nov 02, 2019 at 15:43 Home Medications & Allergies Home Medications Reviewed patient Home Medication Reconciliation performed by pharmacy medication reconciliations food safety technician and/or nursing. Patients Allergies have been reviewed. Allergies Allergies Coded Allergies Sulfa (Sulfonamide Antibiotics) (Verified Allergy, Unknown, 12/27/17) Past Ukgsqpu-Spxrbf-Kzbzgt Hx Past Med/Social Hx: Reviewed Nursing Past Med/Soc Hx, Reviewed and Corrections made Patient Social History Marrital Status: Employed/Student: retired Alcohol Use: Denies Use Recreational Drug Use: No Smoking Status: Former Smoker Former Smoker, Quit: Aug 27, 2004 Type Used: Cigarettes 2nd Hand Smoke Exposure: No Recent Foreign Travel: No Contact w/other who traveled: No Recent Hopitalizations: No Recent Infectious Disease Expo: No Immunizations Up To Date Tetanus Booster (TDap): Unknown Date of Pneumonia Vaccine: Sep 17, 2015 Date of Influenza Vaccine: Jul 19, 2019 Seasonal Allergies Seasonal Allergies: No Past Medical History Surgeries: Cardiac, Coronary Stent, Gallbladder, Tubal Ligation Respiratory: Chronic Bronchitis, COPD, Emphysema, Pneumonia Currently Using CPAP: No Currently Using BIPAP: No Cardiac: Atrial Fibrillation, Coronary Artery Disease, Heart Attack, High Cholesterol, Hypertension 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: Dementia, Vertigo Sexually Transmitted Disease: No HIV/AIDS: No Menopausal Genitourinary: Bladder Infection, Renal Failure Gastrointestinal: Gastroesophageal Reflux Musculoskeletal: Arthritis, Rheumatoid Arthritis Loss of Vision: Denies Psychosocial: Anxiety, Depression History of Blood Disorders: No Adverse Reaction to Blood Sousa: No Family History Cardiovascular disease 19 MOTHER Diabetes mellitus 19 MOTHER Hypertension 19 MOTHER No Pertinent Family Hx LONG HISTORY OF NON-COMPLIANCE Review of Systems Constitutional: see HPI, dizziness, fever, malaise, weakness Respiratory: cough Physical Exam Physical Exam Vital Signs Vital Signs - First Documented 11/02/19 14:50 Temp 36.8 Pulse 93 Resp 18 B/P (MAP) 121/86 (98) Pulse Ox 99 O2 Delivery Nasal Cannula O2 Flow Rate 3.00 Capillary Refill : Less Than 3 Seconds Height, Weight, BMI Height: 5'4.00" Weight: 170lbs. 0oz. 77.394850ws; 27.27 BMI Method:Stated General Appearance: No Apparent Distress, Chronically ill Eyes: Right Eye Normal Inspection, Right Eye PERRL HEENT: PERRL/EOMI, TMs Normal, Normal ENT Inspection, Pharynx Normal, Moist Mucous Membranes Neck: Full Range of Motion, Normal Inspection, Non Tender Respiratory: Chest Non Tender, Lungs Clear, No Accessory Muscle Use, No Respiratory Distress, Decreased Breath Sounds Cardiovascular: Regular Rate, Rhythm, No Edema, No Gallop, No JVD, No Murmur, Normal Peripheral Pulses Gastrointestinal: Normal Bowel Sounds, No Organomegaly, No Pulsatile Mass, Non Tender, Soft Back: Normal Inspection, No CVA Tenderness, No Vertebral Tenderness Extremity: Normal Capillary Refill, Normal Inspection, Normal Range of Motion, Non Tender, No Calf Tenderness, No Pedal Edema Neurologic/Psychiatric: Alert, No Motor/Sensory Deficits, Normal Mood/Affect, Disoriented Skin: Normal Color, Warm/Dry, Rash (left chest wall rahs with vesicles) Lymphatic: No Adenopathy Results Results/Procedures Labs Laboratory Tests 11/02/19 14:50 Patient resulted labs reviewed. Assessment/Plan Admission Diagnosis Assessment: Acute influenza A and B Acute shingles left chest wall Delirium acute on chronic Severe debility requiring usp placement CHF with volume overload requiring IV Lasix last admit COPD Oxygen dependency Medical noncompliance in the past Denial of severity of medical problems Former smoker Rheumatoid arthritis Chronic renal insufficiency Hyperglycemia HGA1C 6.1 Hypertension [id number] previously Orthostasis with vertigo Plan: Tamiflu Gentle IVF Supportive care Valtrex Admission Status: Inpatient Order (span 2 midnights) Reason for Inpatient Admission: Influenza A and B Diagnosis/Problems Diagnosis/Problems (1) Influenza B Status: Acute (2) Influenza A Status: Acute (3) Herpes zoster Status: Acute Qualifiers: Herpes zoster complications: unspecified herpes zoster complication Qualified Codes: B02.8 - Zoster with other complications (4) Debility Status: Acute (5) Myopathy (6) Memory loss (7) COPD exacerbation Status: Acute (8) Hypoxia Status: Chronic Clinical Quality Measures DVT/VTE Risk/Contraindication: Risk Factor Score Per Nursin RFS Level Per Nursing on Admit: 4+=Very High TERESE VERDE DO Nov 02, 2019 20:52
[2019-11-02] MEDS ORDERED: LOPERAMIDE 2 MG (IMODIUM) TABLET PO PRN (21:00)
[2019-11-02] MEDS ORDERED: APIXABAN 5 MG (ELIQUIS) TABLET PO SCH (21:00)
[2019-11-02] MEDS ORDERED: RT-ADVAIR HFA 115/21 MCG PER PUFF IH PRN (21:00)
[2019-11-02] MEDS ORDERED: MECLIZINE 25 MG (ANTIVERT) TAB PO PRN (21:00)
[2019-11-02] MEDS ORDERED: CALCIUM CARBONATE 500 MG (TUMS) TAB.CHEW PO PRN (21:00)
[2019-11-02] MEDS: VALACYCLOVIR 500 MG TAB (VALTREX) PO SCH (21:34)
[2019-11-02] MEDS: SENNA W/DOCUSATE (SENOKOT S) TABLET PO SCH (21:35)
[2019-11-02] MEDS: DOCUSATE SODIUM 100 MG (COLACE) CAP PO SCH (21:35)
[2019-11-02] MEDS: CARVEDILOL 12.5 MG (COREG) TABLET PO SCH (21:35)
[2019-11-02] MEDS: ALPRAZolam 0.25 MG (XANAX) TAB PO PRN (23:30)
[2019-11-03] VITALS (7 sets, daily range): BP systolic 141–174; BP diastolic 75–108
--- NOTE | 2019-11-03 03:52 | NUR ---
NOTIFIED DR. NEAL OF PATIENT RATING PAIN 05/27 AND NO PAIN MEDICATION ORDERED. NEW ORDER FOR HYDROCODONE 5/325 Q4 PRN FOR PAIN RECEIVED AT THIS TIME.
[2019-11-03] MEDS ORDERED: HYDROcodone/APAP 5 MG/325 MG (LORTAB) TAB ONE (03:54)
[2019-11-03] MEDS: HYDROcodone/APAP 5 MG/325 MG (LORTAB) TAB PO PRN ×2 (03:57→21:43)
[2019-11-03] MEDS: NS IV 1000 ML 1,000 ML IV SCH (04:50)
[2019-11-03 06:18] LABS: BASOPHILS % (AUTO) 0 % (0-10); EOSINOPHILS # (AUTO) 0.3 10^3/uL (0.0-0.3); EOSINOPHILS % (AUTO) 5 % (0-10); HEMATOCRIT 41 % (35-52); LYMPHOCYTES # (AUTO) 1.6 X 10^3 (1.0-4.0); LYMPHOCYTES % (AUTO) 25 % (12-44); MEAN CORPUSCULAR HEMOGLOBIN 29 PG (25-34); MEAN CORPUSCULAR HGB CONC 32 G/DL (32-36); MEAN CORPUSCULAR VOLUME 91 FL (80-99); MEAN PLATELET VOLUME 9.8 FL (7.4-10.4); MONOCYTES # (AUTO) 0.7 X 10^3 (0.0-1.0); MONOCYTES % (AUTO) 11 % (0-12); NEUTROPHILS # (AUTO) 3.8 X 10^3 (1.8-7.8); NEUTROPHILS % (AUTO) 59 % (42-75); PLATELET COUNT 256 10^3/uL (130-400); RED CELL DISTRIBUTION WIDTH 14.8 % (10.0-14.5); WHITE BLOOD COUNT 6.4 10^3/uL (4.3-11.0)
[2019-11-03 06:46] LABS: ALANINE AMINOTRANSFERASE 23 U/L (0-55); ALBUMIN 3.3 GM/DL (3.2-4.5); ALKALINE PHOSPHATASE 104 U/L (40-136); BILIRUBIN,TOTAL 0.6 MG/DL (0.1-1.0); BUN/CREATININE RATIO 15; CALCIUM 8.7 MG/DL (8.5-10.1); CARBON DIOXIDE 24 MMOL/L (21-32); CHLORIDE 105 MMOL/L (98-107); CREATININE SERUM 0.74 MG/DL (0.60-1.30); GFR ESTIMATED > 60; GLUCOSE 115 MG/DL (70-105); POTASSIUM 3.3 MMOL/L (3.6-5.0); SODIUM 140 MMOL/L (135-145); TOTAL PROTEIN 6.4 GM/DL (6.4-8.2)
[2019-11-03] MEDS: RT-ALBUTEROL/IPRATROPIUM 3 ML (DUONEB) VIAL INH SCH ×4 (06:53→19:17)
[2019-11-03] MEDS: KCL 20 MEQ TAB (K-DUR) PO SCH (07:03)
[2019-11-03] MEDS: OSELTAMIVIR 30 MG (TAMIFLU) CAPSULE PO SCH ×2 (09:40→21:43)
[2019-11-03] MEDS: DILTIAZEM 240 MG (CARDIZEM CD) CAP PO SCH (09:40)
[2019-11-03] MEDS: SENNA W/DOCUSATE (SENOKOT S) TABLET PO SCH ×2 (09:40→21:43)
[2019-11-03] MEDS: VALACYCLOVIR 500 MG TAB (VALTREX) PO SCH ×3 (09:40→21:43)
[2019-11-03] MEDS: CARVEDILOL 12.5 MG (COREG) TABLET PO SCH ×2 (09:40→21:43)
[2019-11-03] MEDS: FUROSEMIDE 40 MG (LASIX) TAB PO SCH (09:40)
[2019-11-03] MEDS: MONTELUKAST 10 MG (SINGULAIR) TAB PO SCH (09:40)
[2019-11-03] MEDS: DOCUSATE SODIUM 100 MG (COLACE) CAP PO SCH ×2 (09:40→21:43)
[2019-11-03] MEDS: APIXABAN 5 MG (ELIQUIS) TABLET PO SCH ×2 (09:41→21:44)
[2019-11-03] MEDS ORDERED: ALPR0.254 PO (10:41)
[2019-11-03] MEDS ORDERED: FURO40TA4 PO (10:41)
[2019-11-03] MEDS ORDERED: POTA-51 PO (10:41)
[2019-11-03] MEDS ORDERED: MELA5TAB14 PO (10:41)
[2019-11-03] MEDS ORDERED: DILT240C90 PO (10:41)
[2019-11-03] MEDS ORDERED: IPRA3AMP31 NEB (10:41)
[2019-11-03] MEDS ORDERED: CARV12.53 PO (10:41)
[2019-11-03] MEDS ORDERED: MONT10TA21 PO (10:41)
[2019-11-03] MEDS ORDERED: DOCU-143 PO (10:41)
[2019-11-03] MEDS ORDERED: LOPE2CAP PO (10:41)
[2019-11-03] MEDS ORDERED: CALC500T47 PO (10:41)
[2019-11-03] MEDS ORDERED: SENN-145 PO (10:41)
[2019-11-03] MEDS ORDERED: MECL-106 PO (10:41)
[2019-11-03] MEDS ORDERED: OXYC1TAB87 PO (10:41)
[2019-11-03] MEDS ORDERED: FLUT12AE4 IH (10:41)
--- NOTE | 2019-11-03 10:43 | NUR ---
UPDATED MED REC WITH MAR FROM [facility] EM[facility]
--- NOTE | 2019-11-03 11:38 | Progress Note - Hospitalist ---
Subjective HPI/CC On Admission Date Seen by Provider: Nov 03, 2019 Time Seen by Provider: 11:00 CC: Influenza A and B with Shingles HPI: This is a very complicated 74yoWF clinic patient of mine who recently had a significant decline in her status from respiratory insufficiency from severe COPD and CHF with AF who ultimately required skilled care after failing IRF who was seen in my office on Wednesday for rash on her left breast and dx with shingles and placed on Valtrex who worsened through the rest of the week until she was no longer eating and drinking so she was sent to ER found to have Influenza A and B further complicating her significant medical issues. Patient has had significant delirium and I have assessed her to have a slow to no recover potential. is at the bedside tonight and patient appears to be more lucid today but nonetheless she appears to be more declined. Subjective/Events-last exam Will order PT and OT. Supplementing Potassium with oral supplement Slowing up fluid at 50cc an hour Family at the bedside Pt overall extremely, extremely debilitated unsure if recovery is even feasible Will go back to the fci once stable Review of Systems General: Fatigue 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: Confusion Focused Exam Lactate Level 11/02/19 15:08: Lactic Acid Level 1.16 Objective Exam Vital Signs Vital Signs Date Time Temp Pulse Resp B/P (MAP) Pulse Ox O2 Delivery O2 Flow Rate FiO2 11/03/19 16:16 36.7 74 18 141/75 (97) 98 Nasal Cannula 3.00 Capillary Refill : Less Than 3 Seconds General Appearance: No Apparent Distress, WD/WN, Chronically ill Respiratory: Lungs Clear, Decreased Breath Sounds Cardiovascular: Regular Rate, Rhythm Neurologic/Psychiatric: Alert, Disoriented Results/Procedures Lab Laboratory Tests 11/03/19 06:02 Patient resulted labs reviewed. Assessment/Plan Assessment and Plan Assess & Plan/Chief Complaint Assessment: Acute influenza A and B Acute shingles left chest wall Delirium acute on chronic Severe debility requiring fci placement CHF with volume overload requiring IV Lasix last admit COPD Oxygen dependency Medical noncompliance in the past Denial of severity of medical problems Former smoker Rheumatoid arthritis Chronic renal insufficiency Hyperglycemia HGA1C 6.1 Hypertension svm-hy-shzhsxj previously Orthostasis with vertigo Plan: Tamiflu Gentle IVF Supportive care Valtrex Diagnosis/Problems Diagnosis/Problems (1) Influenza B Status: Acute (2) Influenza A Status: Acute (3) Herpes zoster Status: Acute Qualifiers: Herpes zoster complications: unspecified herpes zoster complication Qualified Codes: B02.8 - Zoster with other complications (4) Debility Status: Acute (5) Myopathy (6) Memory loss (7) COPD exacerbation Status: Acute (8) Hypoxia Status: Chronic Clinical Quality Measures DVT/VTE Risk/Contraindication: Risk Factor Score Per Nursin RFS Level Per Nursing on Admit: 4+=Very High JEROME NEAL DO Nov 03, 2019 11:38
[2019-11-03] MEDS ORDERED: KCL 10 MEQ TAB (MICRO K) PO ONE (11:45)
[2019-11-03] MEDS: POTASSIUM CHLORIDE INJ 10 MEQ in NS IV 1000 ML 1,000 ML IV SCH (12:28)
--- NOTE | 2019-11-03 13:37 | Physical Therapy Evaluation ---
PT Evaluation-General Medical Diagnosis Admission Date Nov 02, 2019 at 15:43 Medical Diagnosis: influenza A, B and Shingles Onset Date: Nov 02, 2019 Therapy Diagnosis Therapy Diagnosis: generalized weakness Height/Weight Height (Feet): 5 Height (Inches): 4.00 Weight (Pounds): 170 Weight (Ounces): 0 Precautions Precautions/Isolations: Droplet Isolation, Fall Prevention Referral Physician: Ammon Reason for Referral: Evaluation/Treatment Medical History Pertinent Medical History: Atrial Fib, Arthritis, CAD, COPD, HTN, [place], Rheumatoid Arthritis Current History ER from [place] secondary to weakness Reviewed History: Yes Social History Home: Intermediate Prior Prior Level of Function SCALE: Activities may be completed with or without assistive devices. 3-Citkjfhpsk-sizvgdl completes the activity by him/herself with no assistance from a helper. 5-Set-up or Clean-up Assistance-helper sets up or cleans up; patient completes activity. [place] assists only prior to or following the activity. 4-Supervision or Touching Assistance-helper provides verbal cues and/or touching/steadying and/or contact guard assistance as patient completes activity. Assistance may be provided throughout the activity or intermittently. 3-Partial/Moderate Assistance-helper does LESS THAN HALF the effort. [place] lifts, holds or supports trunk or limbs, but provides less than half the effort. 2-Substantial/Maximal Assistance-helper does MORE THAN HALF the effort. [place] lifts or holds trunk or limbs and provides more than half the effort. 2-Zzrqlpjml-leosep does ALL the effort. Patient does none of the effort to complete the activity. Or, the assistance of 2 or more helpers is required for the patient to complete the activity. If activity was not attempted, code reason: 7-Patient Refused. 9-Not Applicable-not attempted and the patient did not perform the activity before the current illness, exacerbation or injury. 10-Not Attempted due to Environmental Limitations-(lack of equipment, weather restraints, etc.). 88-Not Attempted due to Medical Conditions or Safety Concerns. Bed Mobility: 3 Transfers (B,C,W/C): 3 Gait: 3 Stairs: 9 Indoor Mobility (Ambulation): Needed Some Help Stairs: Not Applicalbe Prior Devices Use: Walker PT Evaluation-Current Subjective Patient is very lethargic and listless. Spouse present. Pain Numeric Pain Scale: 0-No Pain Location: No Pain Reported Objective Patient Orientation: Confused, Listless Attachments: Oxygen, IV ROM/Strength ROM Lower Extremities bilateral LE WFL Strength Lower Extremities 3-/5 grossly bilateral LE Integumentary/Posture Integumentary refer to nursing notes Bladder Incontinence: Yes Posture WFL Neuromuscular (Tone, Coordination, Reflexes) diminished coordination due to inactivity and weakness/confusion Sensory Vision: Functional Hearing: Functional Sensation Right Lower Extremit: Intact Sensation Left Lower Extremity: Intact Transfers Roll Left to Right (QC): 3 Sit to Lying (QC): 3 Lying to Sitting/Side of Bed(Q: 3 Sit to Stand (QC): 3 Chair/Nxm-rj-Ytgpu Xfer(QC): 3 patient able to assist with mobility, however, due to lethargy required assistance with all and SPT Gait Does the Patient Walk?: No and Walking Goal IS indicated Mode of Locomotion: Both Anticipated Mode of Locomotion: Both Comments/Gait Description patient currently unsafe and weak to perform ambulation at this time. Balance Sitting Static: Fair Sitting Dynamic: Poor Standing Static: Poor Standing Dynamic: Poor Assessment/Needs 74 y.o. female, will be seen short term by skilled PT to address functional strength and mobility to improve current LOF. Patient is severely lethargic/listless and confused and does not tolerate extensive therapy on this date. Rehab Potential: Fair PT Manufacturing Lead Goals Manufacturing Lead Goals PT Manufacturing Lead Goals Time Frame: Nov 10, 2019 Roll Left & Right (QC): 4 Sit to Lying (QC): 4 Lying-Sitting on Side/Bed(QC): 4 Sit to Stand (QC): 4 Chair/Rdm-gq-Dmhgt Xfer(QC): 4 Toilet Transfer (QC): 4 Does the Patient Walk: Yes Walk 10 feet (QC): 4 PT Plan Problem List Problem List: Activity Tolerance, Functional Strength, Safety, Balance, Gait, Transfer, Bed Mobility Treatment/Plan Treatment Plan: Continue Plan of Care Treatment Plan: Bed Mobility, Education, Functional Activity Rex, Functional Strength, Gait, Safety, Therapeutic Exercise, Transfers Treatment Duration: Nov 10, 2019 Frequency: 5 times per week Estimated Hrs Per Day: .25 hour per day Patient and/or Family Agrees t: Yes Time/GCodes Time In: 1300 Time Out: 1323 Total Billed Treatment Time: 23 [facility] Nov 03, 2019 13:37
--- NOTE | 2019-11-03 14:10 | Occupational Therapy Eval ---
OT Evaluation-General/PLF Medical Diagnosis Admission Date Nov 02, 2019 at 15:43 Medical Diagnosis: influenza A, B and Shingles Onset Date: Nov 02, 2019 Therapy Diagnosis Therapy Diagnosis: Decreased ADL function Height/Weight Height (Feet): 5 Height (Inches): 4.00 Weight (Pounds): 170 Weight (Ounces): 0 Precautions Precautions/Isolations: Droplet Isolation, Fall Prevention Safety Interventions: Notify Family Referral Physician: Ammon Referral Reason: Activity Tolerance, Self Care, Evaluation/Treatment, Strengthening/ROM Medical History Pertinent Medical History: Atrial Fib, Arthritis, CAD, COPD, HTN, [place], Rheumatoid Arthritis Additional Medical History anxiety/ depression, COPD, CHF with AF, coronary stent, CAD, HTN, pneumonia, A fib, RA, arthritis, [place], high cholesterol Current History Pt previous pt of ARU (10/14/19-10/25/19), pt d/c'd to [facility] where states she did well for a couple days and then declined. Pt now admits with influenza A/B and shingles. Reviewed History: Yes Social History Home: Shelter ADL-Prior Level of Function SCALE: Activities may be completed with or without assistive devices. 0-Rjxmndgwpn-vdknqcm completes the activity by him/herself with no assistance from a helper. 5-Set-up or Clean-up Assistance-helper sets up or cleans up; patient completes activity. [place] assists only prior to or following the activity. 4-Supervision or Touching Assistance-helper provides verbal cues and/or touching/steadying and/or contact guard assistance as patient completes activity. Assistance may be provided throughout the activity or intermittently. 3-Partial/Moderate Assistance-helper does LESS THAN HALF the effort. [place] lifts, holds or supports trunk or limbs, but provides less than half the effort. 2-Substantial/Maximal Assistance-helper does MORE THAN HALF the effort. [place] lifts or holds trunk or limbs and provides more than half the effort. 5-Tlcvcsbtv-qgcmnj does ALL the effort. Patient does none of the effort to complete the activity. Or, the assistance of 2 or more helpers is required for the patient to complete the activity. If activity was not attempted, code reason: 7-Patient Refused. 9-Not Applicable-not attempted and the patient did not perform the activity before the current illness, exacerbation or injury. 10-Not Attempted due to Environmental Limitations-(lack of equipment, weather restraints, etc.). 88-Not Attempted due to Medical Conditions or Safety Concerns. Self Care: Needed Some Help (Per chart records pt d/c'd from ARU with bathing TD, UB max A, LB TD, footwear max A) Functional Cognition: Needed Some Help (d/c'd with impulsivity and decreased safety awareness.) DME/Equipment Comments FWW and w/c for functional mob Drive Self: No OT Current Status Subjective Pt seen in recliner chair, present. Pt asleep, awakes with verbal cues for few moments, immediately returns to sleep. Pt's states pt has not c/o pain and has been quite lethargic. Mental Status/Objective Attachments: IV, Oxygen Current Glasses/Contacts: Yes Hearing Aids: No Dentures/Partials: No Upper Extremity ROM Unable to test due to pt fatigue Upper Extremity Coordination Unable to test due to pt fatigue Upper Extremity Sensation Unable to test due to pt fatigue Upper Extremity Strength Unable to test due to pt fatigue ADL-Treatment Eating (QC): 2 (Pt's states he had to fill fork and bring food to mouth. Pt only ate ~2-3 bites this afternoon.) Lower Body Dressing (QC): 1 (based on hx review and 's statements) On/Off Footwear (QC): 1 (based on hx review and 's statements) Other Treatments Pt does not maintain alertness with verbal or tactile cues. Pt's provides PMHx and recent events. Pt's states pt had 2 days within [facility] where she had gotten up and utilized FWW, other days pt has required max A to complete ADLs. Pt's educated on OT roles and goals of increasing functional IND and strength. Pt's feet/ UE's addressed for swelling, none noted. Pt's does not have gown/ gloves/ mask on, educated on decreasing risk of spread of flu/ shingles through gowning up. Pt's acknowledges, does not gown up. Pt and left in room, all needs met, call light in reach. Education OT Patient Education: Correct positioning, Instructions to caregiver, Rehab process, Safety issues Teaching Recipient: Patient, Significant Other Teaching Methods: Demonstration, Discussion Response to Teaching: Verbalize Understanding OT Short Term Goals Short Term Goals Eatin OT Prison Goals Prison Goals Time Frame: Nov 10, 2019 Eating (QC): 6 Oral Hygiene (QC): 6 Toileting Hygiene (QC): 2 Shower/Bathe Self (QC): 2 Upper Body Dressing (QC): 2 Lower Body Dressing (QC): 2 On/Off Footwear (QC): 2 Additional Goals: 1-Demonstrate ADL Tasks, 2-Verbalize Understanding, 3- ImproveStrength/Rex 1=Demonstrate adherence to instructed precautions during ADL tasks. 2=Patient will verbalize/demonstrate understanding of assistive devices /modifications for ADL. 3=Patient will improve strength/tolerance for activity to enable patient to perform ADL's. OT Education/Plan Problem List/Assessment Assessment: Decreased Activ Tolerance, Decreased UE Strength, Dependent Transfers, Impaired Bed Mobility, Impaired Funct Balance, Impaired I ADL's, Impaired Self-Care Skills Discharge Recommendations Plan/Recommendations: Continue POC Therapy Discharge Recommendati: 24 Hour Supervision Treatment Plan/Plan of Care Treatment,Training & Education: Yes Patient would benefit from OT for education, treatment and training to promote independence in ADL's, mobility, safety and/or upper extremity function for ADL's. Plan of Care: ADL Retraining, Caregiver Training, Functional Mobility, UE Funct Exercise/Act Treatment Duration: Nov 10, 2019 Frequency: 5 times per week Estimated Hrs Per Day: .25 hour per day Agreement: Yes Rehab Potential: Fair Time/GCodes Start Time: 13:45 Stop Time: 13:00 Total Time Billed (hr/min): 15 Billed Treatment Time KAYLA Garza (15) PEÑA NICHOLS OTRyder Nov 03, 2019 14:10
[2019-11-03] MEDS ORDERED: ADVAIR HFA 115/21 MCG INHALER 8 GM IH PRN (14:15)
--- NOTE | 2019-11-03 15:34 | NUR ---
CM/SS: Visited with family Daughter Karolyn [phone] about concern about holding bed for pt at [facility]. She is frustrated as she has been told that the bed will be $225.00 to hold and they report that is alot of money if she can not return there. This worker shares she has not be notified of discharge plans for pt. She wants to know if pt will return. This worker is unable to tell her the answer. She is frustrated. This worker checks with RN and they indicate no discharge plan today that they know of. Daughter is called back and reminded again when asked that this worker can not give her an answer as to holding the bed. She is given options about not holding bed and that when it is time for pt to discharge she can be referred and they may have a bed and be able to take her, if not there are other options for placement if needed. She is still not satisfied with that answer. She tells this worker bye, and ends the call.
[2019-11-03] MEDS: ALPRAZolam 0.25 MG (XANAX) TAB PO PRN (21:43)
[2019-11-04 00:20] VITALS: BP 130/76
[2019-11-04 04:00] VITALS: BP 145/72
[2019-11-04 05:37] LABS: BASOPHILS % (AUTO) 0 % (0-10); EOSINOPHILS # (AUTO) 0.2 10^3/uL (0.0-0.3); EOSINOPHILS % (AUTO) 3 % (0-10); HEMATOCRIT 40 % (35-52); HEMOGLOBIN 12.6 G/DL (11.5-16.0); LYMPHOCYTES # (AUTO) 1.7 X 10^3 (1.0-4.0); LYMPHOCYTES % (AUTO) 30 % (12-44); MEAN CORPUSCULAR HEMOGLOBIN 29 PG (25-34); MEAN CORPUSCULAR HGB CONC 32 G/DL (32-36); MEAN CORPUSCULAR VOLUME 91 FL (80-99); MEAN PLATELET VOLUME 9.8 FL (7.4-10.4); MONOCYTES # (AUTO) 0.7 X 10^3 (0.0-1.0); MONOCYTES % (AUTO) 11 % (0-12); NEUTROPHILS # (AUTO) 3.2 X 10^3 (1.8-7.8); NEUTROPHILS % (AUTO) 55 % (42-75); PLATELET COUNT 266 10^3/uL (130-400); RED CELL DISTRIBUTION WIDTH 14.7 % (10.0-14.5); WHITE BLOOD COUNT 5.8 10^3/uL (4.3-11.0)
[2019-11-04 05:55] LABS: ALANINE AMINOTRANSFERASE 25 U/L (0-55); ALBUMIN 3.1 GM/DL (3.2-4.5); ALKALINE PHOSPHATASE 100 U/L (40-136); BILIRUBIN,TOTAL 0.8 MG/DL (0.1-1.0); BUN/CREATININE RATIO 15; CALCIUM 8.9 MG/DL (8.5-10.1); CARBON DIOXIDE 23 MMOL/L (21-32); CHLORIDE 107 MMOL/L (98-107); CREATININE SERUM 0.81 MG/DL (0.60-1.30); GFR ESTIMATED > 60; GLUCOSE 96 MG/DL (70-105); POTASSIUM 3.7 MMOL/L (3.6-5.0); SODIUM 141 MMOL/L (135-145); TOTAL PROTEIN 5.9 GM/DL (6.4-8.2)
[2019-11-04] MEDS: KCL 20 MEQ TAB (K-DUR) PO SCH (06:07)
[2019-11-04 08:00] VITALS: BP 144/86
[2019-11-04] MEDS: RT-ALBUTEROL/IPRATROPIUM 3 ML (DUONEB) VIAL INH SCH ×4 (08:48→18:17)
[2019-11-04] MEDS: MONTELUKAST 10 MG (SINGULAIR) TAB PO SCH (08:54)
[2019-11-04] MEDS: FUROSEMIDE 40 MG (LASIX) TAB PO SCH (08:54)
[2019-11-04] MEDS: OSELTAMIVIR 30 MG (TAMIFLU) CAPSULE PO SCH ×2 (08:54→22:01)
[2019-11-04] MEDS: CARVEDILOL 12.5 MG (COREG) TABLET PO SCH ×2 (08:54→22:01)
[2019-11-04] MEDS: DOCUSATE SODIUM 100 MG (COLACE) CAP PO SCH ×2 (08:54→22:01)
[2019-11-04] MEDS: APIXABAN 5 MG (ELIQUIS) TABLET PO SCH ×2 (08:54→22:01)
[2019-11-04] MEDS: VALACYCLOVIR 500 MG TAB (VALTREX) PO SCH ×3 (08:55→22:01)
[2019-11-04] MEDS: SENNA W/DOCUSATE (SENOKOT S) TABLET PO SCH ×2 (08:55→22:01)
[2019-11-04] MEDS: POTASSIUM CHLORIDE INJ 10 MEQ in NS IV 1000 ML 1,000 ML IV SCH (08:55)
[2019-11-04] MEDS: DILTIAZEM 240 MG (CARDIZEM CD) CAP PO SCH (08:55)
[2019-11-04 12:00] VITALS: BP 140/78
--- NOTE | 2019-11-04 14:19 | Progress Note - Hospitalist ---
Subjective HPI/CC On Admission Date Seen by Provider: Nov 04, 2019 Time Seen by Provider: 13:15 CC: Influenza A and B with Shingles HPI: This is a very complicated 74yoWF clinic patient of mine who recently had a significant decline in her status from respiratory insufficiency from severe COPD and CHF with AF who ultimately required skilled care after failing IRF who was seen in my office on Wednesday for rash on her left breast and dx with shingles and placed on Valtrex who worsened through the rest of the week until she was no longer eating and drinking so she was sent to ER found to have Influenza A and B further complicating her significant medical issues. Patient has had significant delirium and I have assessed her to have a slow to no recover potential. is at the bedside tonight and patient appears to be more lucid today but nonetheless she appears to be more declined. Subjective/Events-last exam patient awakens easily and tells me she feels fine. The is present in the room and says she is neither eating nor drinking. She lays in bed without interacting. She denies having any pain but winces when I touch her of chest Focused Exam Lactate Level 11/02/19 15:08: Lactic Acid Level 1.16 Objective Exam Vital Signs Vital Signs Date Time Temp Pulse Resp B/P (MAP) Pulse Ox O2 Delivery O2 Flow Rate FiO2 11/05/19 11:41 98 Nasal Cannula 2.00 11/05/19 08:00 35.4 69 18 135/83 (100) Capillary Refill : Less Than 3 Seconds General Appearance: No Apparent Distress, Chronically ill HEENT: Normal ENT Inspection Neck: Limited Range of Motion Respiratory: Lungs Clear, Normal Breath Sounds, No Accessory Muscle Use, No Respiratory Distress Cardiovascular: Regular Rate, Rhythm, No Edema, No Gallop, No JVD, No Murmur Gastrointestinal: Normal Bowel Sounds, No Organomegaly, Non Tender, Soft Extremity: Normal Range of Motion, Non Tender, No Pedal Edema Results/Procedures Lab Patient resulted labs reviewed. Assessment/Plan Assessment and Plan Assess & Plan/Chief Complaint Acute influenza A and B shingles left chest wall influenza a and B Delirium acute on chronic Severe debility requiring fdc placement CHF -currently monitoring COPD Oxygen dependency Former smoker Rheumatoid arthritis Chronic renal insufficiency Hyperglycemia HGA1C 6.1 Hypertension tjw-hp-ngexhip previously Orthostasis with vertigo poor overall prognosis Clinical Quality Measures DVT/VTE Risk/Contraindication: Risk Factor Score Per Nursin RFS Level Per Nursing on Admit: 4+=Very High KATALINA CRISTINA MD Nov 04, 2019 14:19
[2019-11-04 16:00] VITALS: BP 131/66
[2019-11-04 19:50] VITALS: BP 148/77
[2019-11-04] MEDS: ALPRAZolam 0.25 MG (XANAX) TAB PO PRN (22:01)
[2019-11-04] MEDS: HYDROcodone/APAP 5 MG/325 MG (LORTAB) TAB PO PRN (22:01)
[2019-11-05 00:21] VITALS: BP 162/104
[2019-11-05 04:00] VITALS: BP 139/93
[2019-11-05] MEDS: POTASSIUM CHLORIDE INJ 10 MEQ in NS IV 1000 ML 1,000 ML IV SCH (04:00)
[2019-11-05] MEDS: KCL 20 MEQ TAB (K-DUR) PO SCH (05:55)
[2019-11-05 08:00] VITALS: BP 135/83
[2019-11-05] MEDS: HYDROcodone/APAP 5 MG/325 MG (LORTAB) TAB PO PRN ×2 (09:42→21:03)
[2019-11-05] MEDS: VALACYCLOVIR 500 MG TAB (VALTREX) PO SCH ×3 (09:42→21:02)
[2019-11-05] MEDS: SENNA W/DOCUSATE (SENOKOT S) TABLET PO SCH ×2 (09:42→21:03)
[2019-11-05] MEDS: FUROSEMIDE 40 MG (LASIX) TAB PO SCH (09:42)
[2019-11-05] MEDS: OSELTAMIVIR 30 MG (TAMIFLU) CAPSULE PO SCH ×2 (09:42→21:03)
[2019-11-05] MEDS: APIXABAN 5 MG (ELIQUIS) TABLET PO SCH ×2 (09:42→21:03)
[2019-11-05] MEDS: CARVEDILOL 12.5 MG (COREG) TABLET PO SCH ×2 (09:43→21:03)
[2019-11-05] MEDS: DILTIAZEM 240 MG (CARDIZEM CD) CAP PO SCH (09:43)
[2019-11-05] MEDS: DOCUSATE SODIUM 100 MG (COLACE) CAP PO SCH ×2 (09:43→21:03)
[2019-11-05] MEDS: MONTELUKAST 10 MG (SINGULAIR) TAB PO SCH (09:43)
[2019-11-05] MEDS: RT-ALBUTEROL/IPRATROPIUM 3 ML (DUONEB) VIAL INH SCH ×4 (11:40→20:45)
--- NOTE | 2019-11-05 12:20 | Progress Note - Hospitalist ---
Subjective HPI/CC On Admission Date Seen by Provider: Nov 05, 2019 Time Seen by Provider: 11:15 CC: Influenza A and B with Shingles HPI: This is a very complicated 74yoWF clinic patient of mine who recently had a significant decline in her status from respiratory insufficiency from severe COPD and CHF with AF who ultimately required skilled care after failing IRF who was seen in my office on Wednesday for rash on her left breast and dx with shingles and placed on Valtrex who worsened through the rest of the week until she was no longer eating and drinking so she was sent to ER found to have Influenza A and B further complicating her significant medical issues. Patient has had significant delirium and I have assessed her to have a slow to no recover potential. is at the bedside tonight and patient appears to be more lucid today but nonetheless she appears to be more declined. Subjective/Events-last exam patient is sitting up in her chair. She says she feels awful. When asked what hurts she closes her eyes. She is still on IV fluids and requiring some oxygen. I'll recheck a chest x-ray and Hep-Lock IV fluids Review of Systems Pulmonary: Cough Focused Exam Lactate Level 11/02/19 15:08: Lactic Acid Level 1.16 Objective Exam Vital Signs Vital Signs Date Time Temp Pulse Resp B/P (MAP) Pulse Ox O2 Delivery O2 Flow Rate FiO2 11/05/19 11:41 98 Nasal Cannula 2.00 11/05/19 08:00 35.4 69 18 135/83 (100) Capillary Refill : Less Than 3 Seconds General Appearance: No Apparent Distress, WD/WN, Chronically ill HEENT: Normal ENT Inspection Neck: Full Range of Motion, Normal Inspection, Non Tender, Supple Respiratory: No Accessory Muscle Use, No Respiratory Distress, Decreased Breath Sounds Cardiovascular: No Murmur, Irregularly Irregular Gastrointestinal: Normal Bowel Sounds, Non Tender, Soft Rectal: Deferred Extremity: Pedal Edema Results/Procedures Lab Patient resulted labs reviewed. Assessment/Plan Assessment and Plan Assess & Plan/Chief Complaint Acute influenza A and B shingles left chest wall Delirium acute on chronic Severe debility requiring care home placement CHF -currently monitoring-will Hep-Lock IV fluids and recheck chest x-ray COPD Oxygen dependency Former smoker Rheumatoid arthritis Chronic renal insufficiency-stable Hyperglycemia HGA1C 6.1 Hypertension jan-iy-sgabqye previously Orthostasis with vertigo poor overall prognosis Clinical Quality Measures DVT/VTE Risk/Contraindication: Risk Factor Score Per Nursin RFS Level Per Nursing on Admit: 4+=Very High KATALINA CRISTINA MD Nov 05, 2019 12:20
--- NOTE | 2019-11-05 13:53 | Diagnostic Imaging Report ---
Indication: Hypoxia and dyspnea, weakness. Comparison: 11/02/2019. Discussion: Two views of the chest were obtained. Cardiomegaly is again noted. Elevated right hemidiaphragm. Bilateral mixed interstitial and alveolar infiltrates are increased, likely moderate pulmonary edema, less likely infection. No pleural fluid or pneumothorax. No osseous abnormality. Impression: 1. Cardiomegaly with worsening infiltrates, likely edema. Dictated by: Dictated on workstation # [id number]
[2019-11-05] MEDS ORDERED: FUROSEMIDE 40 MG/4 ML INJ (LASIX) IVP NR (14:30)
[2019-11-05 16:00] VITALS: BP 136/67
[2019-11-05] MEDS: ALPRAZolam 0.25 MG (XANAX) TAB PO PRN (21:03)
[2019-11-05 23:30] VITALS: BP 142/68
[2019-11-06 05:30] LABS: BASOPHILS % (AUTO) 0 % (0-10); EOSINOPHILS # (AUTO) 0.1 10^3/uL (0.0-0.3); EOSINOPHILS % (AUTO) 2 % (0-10); HEMATOCRIT 40 % (35-52); HEMOGLOBIN 12.9 G/DL (11.5-16.0); LYMPHOCYTES # (AUTO) 1.7 X 10^3 (1.0-4.0); LYMPHOCYTES % (AUTO) 28 % (12-44); MEAN CORPUSCULAR HEMOGLOBIN 29 PG (25-34); MEAN CORPUSCULAR HGB CONC 32 G/DL (32-36); MEAN CORPUSCULAR VOLUME 90 FL (80-99); MONOCYTES # (AUTO) 0.7 X 10^3 (0.0-1.0); MONOCYTES % (AUTO) 11 % (0-12); NEUTROPHILS # (AUTO) 3.5 X 10^3 (1.8-7.8); NEUTROPHILS % (AUTO) 58 % (42-75); PLATELET COUNT 292 10^3/uL (130-400); RED CELL DISTRIBUTION WIDTH 14.6 % (10.0-14.5)
[2019-11-06 05:46] LABS: ALANINE AMINOTRANSFERASE 28 U/L (0-55); ALBUMIN 3.3 GM/DL (3.2-4.5); ALKALINE PHOSPHATASE 102 U/L (40-136); BILIRUBIN,TOTAL 0.7 MG/DL (0.1-1.0); BUN/CREATININE RATIO 14; CALCIUM 9.4 MG/DL (8.5-10.1); CARBON DIOXIDE 28 MMOL/L (21-32); CHLORIDE 101 MMOL/L (98-107); CREATININE SERUM 0.86 MG/DL (0.60-1.30); GFR ESTIMATED > 60; GLUCOSE 107 MG/DL (70-105); POTASSIUM 3.3 MMOL/L (3.6-5.0); SODIUM 142 MMOL/L (135-145); TOTAL PROTEIN 6.3 GM/DL (6.4-8.2)
[2019-11-06] MEDS: KCL 20 MEQ TAB (K-DUR) PO SCH (06:18)
[2019-11-06] MEDS: RT-ALBUTEROL/IPRATROPIUM 3 ML (DUONEB) VIAL INH SCH (06:39)
[2019-11-06 07:32] VITALS: BP 135/87
[2019-11-06] MEDS: DILTIAZEM 240 MG (CARDIZEM CD) CAP PO SCH (08:19)
[2019-11-06] MEDS: DOCUSATE SODIUM 100 MG (COLACE) CAP PO SCH (08:19)
[2019-11-06] MEDS: APIXABAN 5 MG (ELIQUIS) TABLET PO SCH (08:20)
[2019-11-06] MEDS: FUROSEMIDE 40 MG (LASIX) TAB PO SCH (08:20)
[2019-11-06] MEDS: CARVEDILOL 12.5 MG (COREG) TABLET PO SCH (08:20)
[2019-11-06] MEDS: SENNA W/DOCUSATE (SENOKOT S) TABLET PO SCH (08:20)
[2019-11-06] MEDS: VALACYCLOVIR 500 MG TAB (VALTREX) PO SCH (08:20)
[2019-11-06] MEDS: OSELTAMIVIR 30 MG (TAMIFLU) CAPSULE PO SCH (08:20)
[2019-11-06] MEDS: MONTELUKAST 10 MG (SINGULAIR) TAB PO SCH (08:20)
--- NOTE | 2019-11-06 09:36 | Discharge Inst-Skilled Nursing ---
Discharge Inst-Skilled NF Reconcile Patient Problems Problems Reviewed?: Yes Chief Complaint CC: Influenza A and B with Shingles HPI: This is a very complicated 74yoWF clinic patient of mine who recently had a significant decline in her status from respiratory insufficiency from severe COPD and CHF with AF who ultimately required skilled care after failing IRF who was seen in my office on Wednesday for rash on her left breast and dx with shingles and placed on Valtrex who worsened through the rest of the week until she was no longer eating and drinking so she was sent to ER found to have Influenza A and B further complicating her significant medical issues. Patient has had significant delirium and I have assessed her to have a slow to no recover potential. is at the bedside tonight and patient appears to be more lucid today but nonetheless she appears to be more declined. Patient Instructions Patient Problems: s/p Influenza A and B s/p herpes zoster Goal: [facility] Consult/Follow Up/Orders Follow Up Appt.: DR Verde 1 week Skilled NF Admit to: [facility] Certification ([facility]) I certify that SNF services are required to be given on an inpatient basis because of the above named patient's need for detention care on a continuing basis for the conditions(s) for which he/she was receiving inpatient hospital services prior to his/her transfer to the SNF. [facility] Facility Order: Nursing Services, Electric Accounting Machine Operator-Evaluate & Treat, Physical Therapy-Evaluate & Treat, Speech Language-Evaluate & Treat Oxygen Delivery Method: Nasal Cannula Discharge Diet: No Restrictions Resuscitation Status: Full Code New & Resume Previous Orders Continued Medications: Alprazolam (Alprazolam) 0.25 Mg Tablet 0.25 MG PO Q8H PRN for ANXIETY, TAB Apixaban (Eliquis) 5 Mg Tablet 5 MG PO BID, TAB Atorvastatin Calcium (Atorvastatin Calcium) 20 Mg Tablet 20 MG PO HS, TAB Calcium Carbonate (Calcium Carbonate) 200 Mg Tab.chew 500 MG PO TID PRN for INDIGESTION, TAB Carvedilol (Carvedilol) 12.5 Mg Tablet 12.5 MG PO BID, TAB Citalopram Hydrobromide (Celexa) 20 Mg Tablet 20 MG PO HS, TAB Diltiazem HCl (Diltiazem 24Hr Cd) 240 Mg Cap.er.24h 240 MG PO DAILY, CAP Docusate Sodium (Colace) 100 Mg Capsule 100 MG PO BID, CAP Fluticasone/Salmeterol (Advair Hfa 115-21 Mcg Inhaler) 12 Gm Hfa.aer.ad 2 PUFF IH Q12H PRN for SHORTNESS OF BREATH, INHALER Furosemide (Furosemide) 40 Mg Tablet 40 MG PO 0700, TAB [Instaflex] () 1 TAB PO DAILY, TAB Ipratropium/Albuterol Sulfate (Iprat-Albut 0.5-3(2.5) mg/3 ml) 3 Ml Ampul.neb 3 ML NEB QID, EACH Loperamide HCl (Loperamide) 2 Mg Capsule 2 MG PO UD PRN for DIARRHEA, CAP Meclizine HCl (Meclizine HCl) 25 Mg Tablet 50 MG PO Q6H PRN for DIZZINESS, TAB Melatonin (Melatonin) 5 Mg Tablet 5 MG PO HS PRN for RESTLESSNESS, TAB Montelukast Sodium (Singulair) 10 Mg Tablet 10 MG PO DAILY, TAB Oxycodone HCl/Acetaminophen (Percocet 5-325 mg Tablet) 1 Each Tablet 1 TAB PO Q6H PRN for SHINGLES PAIN, TAB Potassium Chloride (Potassium Chloride) 20 Meq Tablet.er 20 MEQ PO 0700, TAB Sennosides/Docusate Sodium (Senna S Tablet) 1 Each Tablet 1 TAB PO BID, TAB Discontinued Medications: Valacyclovir HCl (Valacyclovir) 1,000 Mg Tablet 1000 MG PO TID, TAB Terese Verde Nov 06, 2019 09:34 TERESE VERDE DO Nov 06, 2019 09:36
--- NOTE | 2019-11-06 09:37 | Discharge Summary ---
Diagnosis/Chief Complaint Date of Admission Nov 02, 2019 at 15:43 Date of Discharge Discharge Date: Nov 06, 2019 Discharge Diagnosis Assessment: Acute influenza A and B Acute shingles left chest wall Delirium acute on chronic Severe debility requiring assisted placement CHF with volume overload requiring IV Lasix last admit COPD Oxygen dependency Medical noncompliance in the past Denial of severity of medical problems Former smoker Rheumatoid arthritis Chronic renal insufficiency Hyperglycemia HGA1C 6.1 Hypertension [id number] previously Orthostasis with vertigo Plan: Tamiflu Gentle IVF Supportive care Valtrex Diagnosis/Problems Diagnosis/Problems (1) Influenza B Status: Acute (2) Influenza A Status: Acute (3) Herpes zoster Status: Acute Qualifiers: Herpes zoster complications: unspecified herpes zoster complication Qualified Codes: B02.8 - Zoster with other complications (4) Debility Status: Acute (5) Myopathy (6) Memory loss (7) COPD exacerbation Status: Acute (8) Hypoxia Status: Chronic Discharge Summary Discharge Physical Examination Allergies: Coded Allergies: Sulfa (Sulfonamide Antibiotics) (Verified Allergy, Unknown, 12/27/17) Vitals & I&Os Vital Signs Date Time Temp Pulse Resp B/P (MAP) Pulse Ox O2 Delivery O2 Flow Rate FiO2 11/06/19 12:00 11/06/19 08:25 Nasal Cannula 2.00 11/06/19 07:32 35.6 91 18 92 General Appearance: Alert, Cooperative Respiratory: Clear to Auscultation Cardiovascular: Regular Rate Hospital Course Was the Problem List Reviewed?: Yes Hospital Course: Pt had an uneventful hospital course for five days when she presented to the ER from [facility] with lethargy and altered mental status on top of the chronic delirium she has. She was found to have Influenza A and B and complication from Herpes Zoster of the left breast chest wall area. She was placed on IV fluids, Tamiflu, pain medication, Valtrex, and she completed all that treatment. Overall poor prognosis remained. Pt IV fluid was heplocked. Pt was restarted on all home medications including PO Lasix, chest x ray reveals slight volume overload so I did give her a dose of Lasix 20mg IV x1 but she was asymptomatic. Overall pt will continue to have a challenging course in trying to recover but her delirium just does not seem to be clearing at all and she will remain at [facility] what I am predicting to be a residential situation. Labs (last 24 hrs) Laboratory Tests 11/02/19 14:50: White Blood Count 6.9, Red Blood Count 4.94, Hemoglobin 14.0, Hematocrit 45, Mean Corpuscular Volume 91, Mean Corpuscular Hemoglobin 28, Mean Corpuscular Hemoglobin Concent 31L, Red Cell Distribution Width 15.1H, Platelet Count 304, Mean Platelet Volume 9.7, Sodium Level 140, Potassium Level 4.2, Chloride Level 100, Carbon Dioxide Level 28, Anion Gap 12, Blood Urea Nitrogen 15, Creatinine 0.88, Estimat Glomerular Filtration Rate > 60, BUN/Creatinine Ratio 17, Glucose Level 123H, Calcium Level 9.6, Corrected Calcium 9.8, Total Bilirubin 0.6, Aspartate Amino Transf (AST/SGOT) 31, Alanine Aminotransferase (ALT/SGPT) 28, Alkaline Phosphatase 118, Troponin I < 0.028, Total Protein 7.3, Albumin 3.7 11/02/19 15:08: Lactic Acid Level 1.16 11/03/19 06:02: White Blood Count 6.4, Red Blood Count 4.54, Hemoglobin 13.0, Hematocrit 41, Mean Corpuscular Volume 91, Mean Corpuscular Hemoglobin 29, Mean Corpuscular Hemoglobin Concent 32, Red Cell Distribution Width 14.8H, Platelet Count 256, Mean Platelet Volume 9.8, Sodium Level 140, Potassium Level 3.3L, Chloride Level 105, Carbon Dioxide Level 24, Anion Gap 11, Blood Urea Nitrogen 11, Creatinine 0.74, Estimat Glomerular Filtration Rate > 60, BUN/Creatinine Ratio 15, Glucose Level 115H, Calcium Level 8.7, Corrected Calcium 9.3, Total Bilirubin 0.6, Aspartate Amino Transf (AST/SGOT) 23, Alanine Aminotransferase (ALT/SGPT) 23, Alkaline Phosphatase 104, Total Protein 6.4, Albumin 3.3, Neutrophils (%) (Auto) 59, Lymphocytes (%) (Auto) 25, Monocytes (%) (Auto) 11, Eosinophils (%) (Auto) 5, Basophils (%) (Auto) 0, Neutrophils # (Auto) 3.8, Lymphocytes # (Auto) 1.6, Monocytes # (Auto) 0.7, Eosinophils # (Auto) 0.3, Basophils # (Auto) 0.0 11/04/19 05:08: White Blood Count 5.8, Red Blood Count 4.39, Hemoglobin 12.6, Hematocrit 40, Mean Corpuscular Volume 91, Mean Corpuscular Hemoglobin 29, Mean Corpuscular Hemoglobin Concent 32, Red Cell Distribution Width 14.7H, Platelet Count 266, Mean Platelet Volume 9.8, Sodium Level 141, Potassium Level 3.7, Chloride Level 107, Carbon Dioxide Level 23, Anion Gap 11, Blood Urea Nitrogen 12, Creatinine 0.81, Estimat Glomerular Filtration Rate > 60, BUN/Creatinine Ratio 15, Glucose Level 96, Calcium Level 8.9, Corrected Calcium 9.6, Total Bilirubin 0.8, Aspartate Amino Transf (AST/SGOT) 27, Alanine Aminotransferase (ALT/SGPT) 25, Alkaline Phosphatase 100, Total Protein 5.9L, Albumin 3.1L, Neutrophils (%) (Auto) 55, Lymphocytes (%) (Auto) 30, Monocytes (%) (Auto) 11, Eosinophils (%) (Auto) 3, Basophils (%) (Auto) 0, Neutrophils # (Auto) 3.2, Lymphocytes # (Auto) 1.7, Monocytes # (Auto) 0.7, Eosinophils # (Auto) 0.2, Basophils # (Auto) 0.0 11/06/19 05:00: White Blood Count 6.0, Red Blood Count 4.47, Hemoglobin 12.9, Hematocrit 40, Mean Corpuscular Volume 90, Mean Corpuscular Hemoglobin 29, Mean Corpuscular Hemoglobin Concent 32, Red Cell Distribution Width 14.6H, Platelet Count 292, Mean Platelet Volume 10.0, Neutrophils (%) (Auto) 58, Lymphocytes (%) (Auto) 28, Monocytes (%) (Auto) 11, Eosinophils (%) (Auto) 2, Basophils (%) (Auto) 0, Neutrophils # (Auto) 3.5, Lymphocytes # (Auto) 1.7, Monocytes # (Auto) 0.7, Eosinophils # (Auto) 0.1, Basophils # (Auto) 0.0, Sodium Level 142, Potassium Level 3.3L, Chloride Level 101, Carbon Dioxide Level 28, Anion Gap 13, Blood Urea Nitrogen 12, Creatinine 0.86, Estimat Glomerular Filtration Rate > 60, BUN/Creatinine Ratio 14, Glucose Level 107H, Calcium Level 9.4, Corrected Calcium 10.0, Total Bilirubin 0.7, Aspartate Amino Transf (AST/SGOT) 29, Alanine Aminotransferase (ALT/SGPT) 28, Alkaline Phosphatase 102, Total Protein 6.3L, Albumin 3.3 Microbiology 11/02/19 Influenza Types A,B Antigen ([facility]) - Final, Complete Pending Labs Microbiology Date/Time Source Procedure Growth Status 11/02/19 15:04 Nasopharynx Influenza Types A,B Antigen (KENA) - Final Complete Laboratory Tests 11/02/19 14:50: White Blood Count 6.9, Red Blood Count 4.94, Hemoglobin 14.0, Hematocrit 45, Mean Corpuscular Volume 91, Mean Corpuscular Hemoglobin 28, Mean Corpuscular Hemoglobin Concent 31, Red Cell Distribution Width 15.1, Platelet Count 304, Mean Platelet Volume 9.7, Sodium Level 140, Potassium Level 4.2, Chloride Level 100, Carbon Dioxide Level 28, Anion Gap 12, Blood Urea Nitrogen 15, Creatinine 0.88, Estimat Glomerular Filtration Rate > 60, BUN/Creatinine Ratio 17, Glucose Level 123, Calcium Level 9.6, Corrected Calcium 9.8, Total Bilirubin 0.6, Aspartate Amino Transf (AST/SGOT) 31, Alanine Aminotransferase (ALT/SGPT) 28, Alkaline Phosphatase 118, Troponin I < 0.028, Total Protein 7.3, Albumin 3.7 11/02/19 15:08: Lactic Acid Level 1.16 11/03/19 06:02: White Blood Count 6.4, Red Blood Count 4.54, Hemoglobin 13.0, Hematocrit 41, Mean Corpuscular Volume 91, Mean Corpuscular Hemoglobin 29, Mean Corpuscular Hemoglobin Concent 32, Red Cell Distribution Width 14.8, Platelet Count 256, Mean Platelet Volume 9.8, Sodium Level 140, Potassium Level 3.3, Chloride Level 105, Carbon Dioxide Level 24, Anion Gap 11, Blood Urea Nitrogen 11, Creatinine 0.74, Estimat Glomerular Filtration Rate > 60, BUN/Creatinine Ratio 15, Glucose Level 115, Calcium Level 8.7, Corrected Calcium 9.3, Total Bilirubin 0.6, Aspartate Amino Transf (AST/SGOT) 23, Alanine Aminotransferase (ALT/SGPT) 23, Alkaline Phosphatase 104, Total Protein 6.4, Albumin 3.3, Neutrophils (%) (Auto) 59, Lymphocytes (%) (Auto) 25, Monocytes (%) (Auto) 11, Eosinophils (%) (Auto) 5, Basophils (%) (Auto) 0, Neutrophils # (Auto) 3.8, Lymphocytes # (Auto) 1.6, Monocytes # (Auto) 0.7, Eosinophils # (Auto) 0.3, Basophils # (Auto) 0.0 11/04/19 05:08: White Blood Count 5.8, Red Blood Count 4.39, Hemoglobin 12.6, Hematocrit 40, Mean Corpuscular Volume 91, Mean Corpuscular Hemoglobin 29, Mean Corpuscular Hemoglobin Concent 32, Red Cell Distribution Width 14.7, Platelet Count 266, Mean Platelet Volume 9.8, Sodium Level 141, Potassium Level 3.7, Chloride Level 107, Carbon Dioxide Level 23, Anion Gap 11, Blood Urea Nitrogen 12, Creatinine 0.81, Estimat Glomerular Filtration Rate > 60, BUN/Creatinine Ratio 15, Glucose Level 96, Calcium Level 8.9, Corrected Calcium 9.6, Total Bilirubin 0.8, Aspartate Amino Transf (AST/SGOT) 27, Alanine Aminotransferase (ALT/SGPT) 25, Alkaline Phosphatase 100, Total Protein 5.9, Albumin 3.1, Neutrophils (%) (Auto) 55, Lymphocytes (%) (Auto) 30, Monocytes (%) (Auto) 11, Eosinophils (%) (Auto) 3, Basophils (%) (Auto) 0, Neutrophils # (Auto) 3.2, Lymphocytes # (Auto) 1.7, M onocytes # (Auto) 0.7, Eosinophils # (Auto) 0.2, Basophils # (Auto) 0.0 11/06/19 05:00: White Blood Count 6.0, Red Blood Count 4.47, Hemoglobin 12.9, Hematocrit 40, Mean Corpuscular Volume 90, Mean Corpuscular Hemoglobin 29, Mean Corpuscular Hemoglobin Concent 32, Red Cell Distribution Width 14.6, Platelet Count 292, Mean Platelet Volume 10.0, Neutrophils (%) (Auto) 58, Lymphocytes (%) (Auto) 28, Monocytes (%) (Auto) 11, Eosinophils (%) (Auto) 2, Basophils (%) (Auto) 0, Neutrophils # (Auto) 3.5, Lymphocytes # (Auto) 1.7, Monocytes # (Auto) 0.7, Eosinophils # (Auto) 0.1, Basophils # (Auto) 0.0, Sodium Level 142, Potassium Level 3.3, Chloride Level 101, Carbon Dioxide Level 28, Anion Gap 13, Blood Urea Nitrogen 12, Creatinine 0.86, Estimat Glomerular Filtration Rate > 60, BUN/Creatinine Ratio 14, Glucose Level 107, Calcium Level 9.4, Corrected Calcium 10.0, Total Bilirubin 0.7, Aspartate Amino Transf (AST/SGOT) 29, Alanine Aminotransferase (ALT/SGPT) 28, Alkaline Phosphatase 102, Total Protein 6.3, Albumin 3.3 Discharge Home Medications: Active Scripts Active Reported Percocet 5-325 mg Tablet (Oxycodone HCl/Acetaminophen) 1 Each Tablet 1 Tab PO Q6H PRN Meclizine HCl 25 Mg Tablet 50 Mg PO Q6H PRN Loperamide (Loperamide HCl) 2 Mg Capsule 2 Mg PO UD PRN Advair Hfa 115-21 Mcg Inhaler (Fluticasone/Salmeterol) 12 Gm Hfa.aer.ad 2 Puff IH Q12H PRN Calcium Carbonate 200 Mg Tab.chew 500 Mg PO TID PRN Alprazolam 0.25 Mg Tablet 0.25 Mg PO Q8H PRN Potassium Chloride 20 Meq Tablet.er 20 Meq PO 0700 Furosemide 40 Mg Tablet 40 Mg PO 0700 Iprat-Albut 0.5-3(2.5) mg/3 ml (Ipratropium/Albuterol Sulfate) 3 Ml Ampul.neb 3 Ml NEB QID Singulair (Montelukast Sodium) 10 Mg Tablet 10 Mg PO DAILY Senna S Tablet (Sennosides/Docusate Sodium) 1 Each Tablet 1 Tab PO BID Colace (Docusate Sodium) 100 Mg Capsule 100 Mg PO BID Diltiazem 24Hr Cd (Diltiazem HCl) 240 Mg Cap.er.24h 240 Mg PO DAILY Carvedilol 12.5 Mg Tablet 12.5 Mg PO BID Atorvastatin Calcium 20 Mg Tablet 20 Mg PO HS Celexa (Citalopram Hydrobromide) 20 Mg Tablet 20 Mg PO HS [Instaflex] 1 Tab PO DAILY Eliquis (Apixaban) 5 Mg Tablet 5 Mg PO BID Instructions to patient/family Please see electronic discharge instructions given to patient. Diagnosis/Problems Diagnosis/Problems (1) Influenza B Status: Acute (2) Influenza A Status: Acute (3) Herpes zoster Status: Acute Qualifiers: Qualified Codes: B02.8 - Zoster with other complications (4) Debility Status: Acute (5) Myopathy (6) Memory loss (7) COPD exacerbation Status: Acute (8) Hypoxia Status: Chronic Clinical Quality Measures DVT/VTE Risk/Contraindication: Risk Factor Score Per Nursin RFS Level Per Nursing on Admit: 4+=Very High JEROME NEAL DO Nov 06, 2019 09:37
[2019-11-06] MEDS ORDERED: FUROSEMIDE 40 MG/4 ML INJ (LASIX) IVP NR (09:58)
--- NOTE | 2019-11-06 11:02 | NUR ---
CM FINALIZED DISCHARGE PLAN: Patient is returning to [facility] today skilled for Nursing, Physical therapy, Occupational therapy, et Speech therapy. She will need oxygen and wheel chair for transport. [facility] staff made aware that the patient has been in isolation for flu A&B. 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 She will also need a script for xanax that can be picked up at Dr. Verde's office. 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 No further interventions noted to be needed at this time. Patient is dressed in bed awaiting to be picked up.
== END 2019-11-06 12:00 | DRG 194 ==
LOC: EDUNIT# 14:37 → ER 14:38 → 4TH 15:43
PROVIDERS: ADMIT Internal Medicine; ATTEND Internal Medicine
DX: J10.1 Influenza due to other identified influenza virus with other respiratory manifestations (principal); I13.0 Hypertensive heart and chronic kidney disease with heart failure and stage 1 through stage 4 chronic kidney disease, or unspecified chronic kidney disease; B02.9 Zoster without complications; I50.9 Heart failure, unspecified; J43.9 Emphysema, unspecified; I48.91 Unspecified atrial fibrillation; E78.00 Pure hypercholesterolemia, unspecified; I25.10 Atherosclerotic heart disease of native coronary artery without angina pectoris; F03.90 Unspecified dementia, unspecified severity, without behavioral disturbance, psychotic disturbance, mood disturbance, and anxiety; K21.9 Gastro-esophageal reflux disease without esophagitis; M06.9 Rheumatoid arthritis, unspecified; M19.90 Unspecified osteoarthritis, unspecified site; F41.9 Anxiety disorder, unspecified; F32.9 Major depressive disorder, single episode, unspecified; N18.9 Chronic kidney disease, unspecified; G72.9 Myopathy, unspecified; Z87.891 Personal history of nicotine dependence; R73.9 Hyperglycemia, unspecified
CPT/HCPCS: 36415; 71046; 80053; 83605; 84484; 85025; 85027; 87804; 93005; 94640; 94760

== ENCOUNTER 2020-01-01 07:52 | Inpatient (IN) | payer MEDICARE, OTHER ==
[2020-01-01] VITALS (7 sets, daily range): BP systolic 108–200; BP diastolic 64–112
[~2020-01-01] VITALS: Ht 162 cm; Wt 78.2 kg
[~2020-01-01 07:52] MED LIST changes: -ACET-2055 PO; +ACET650T13 PO; +CALC500T47 PO; +DOCU-143 PO; -MECL-106 PO; +MECL-149 PO; +MELA5TAB14 PO; +MONT10TA21 PO; -MONT10TA24 PO; +MONT10TA26 PO; +OXYC-199 PO; +OXYC1TAB87 PO; +POTA-51 PO; +SENN-145 PO; +VALA10007 PO
[2020-01-01] MEDS ORDERED: fentaNYL INJECTION 100 MCG/2 ML AMP IVP ONE (08:00)
[2020-01-01] MEDS ORDERED: NS IV 500 ML 500 ML IV ONE (08:00)
--- NOTE | 2020-01-01 08:10 | ED Hip Pain/Injury ---
General Chief Complaint: Hip/Pelvic Problems Stated Complaint: FALL Nursing Triage Note: ARRIVED VIA EMS FROM HOME WITH COMPLAINS OF LEFT HIP PAIN AFTER FALLING OFF BAR STOOL YESTERDAY MORNING AT 0830. PT STATES SHE IS TIRED. DENIES HITTING HER HEAD. PT HAS LONG PAUSES WHEN ANSWERING QUESTIONS. STATES SHE IS ON BLOOD THINNERS. Source: patient, EMS Exam Limitations: no limitations History of Present Illness Date Seen by Provider: Jan 01, 2020 Time Seen by Provider: 07:50 Initial Comments Patient presents to ER by EMS from home with chief complaint that she had a fall yesterday around 8:30 in the morning laid there for about half an hour before some family came to help her up. She got back to bed took some Tylenol with mild relief of symptoms. She did not seek medical help at that time. She has no previous history of fractures of her hips but today she was not able to get out of bed because of pain rates it about a 7 out of 10 at rest in her left hip not reproducible to direct palpation per EMS. No shortening or rotation of the left lower extremity. Patient denies any cough fever chills weakness shortness of breath or dysuria. She does depend on 2-1/2-3 L of oxygen for her chronic obst ructive pulmonary disease. Echocardiogram from September [address] Bermudez demonstrates an EF of 40-45%. Allergies and Home Medications Allergies Coded Allergies: Sulfa (Sulfonamide Antibiotics) (Verified Allergy, Unknown, 12/27/17) Home Medications Alprazolam 0.25 Mg Tablet, 0.25 MG PO Q8H PRN for ANXIETY, (Reported) Apixaban 5 Mg Tablet, 5 MG PO BID, (Reported) Atorvastatin Calcium 20 Mg Tablet, 20 MG PO HS, (Reported) Calcium Carbonate 200 Mg Tab.chew, 500 MG PO TID PRN for INDIGESTION, (Reported) Carvedilol 12.5 Mg Tablet, 12.5 MG PO BID, (Reported) Citalopram Hydrobromide 20 Mg Tablet, 20 MG PO HS, (Reported) Diltiazem HCl 240 Mg Cap.er.24h, 240 MG PO DAILY, (Reported) Docusate Sodium 100 Mg Capsule, 100 MG PO BID, (Reported) Fluticasone/Salmeterol 12 Gm Hfa.aer.ad, 2 PUFF IH Q12H PRN for SHORTNESS OF BREATH, (Reported) Furosemide 40 Mg Tablet, 40 MG PO 0700, (Reported) Ipratropium/Albuterol Sulfate 3 Ml Ampul.neb, 3 ML NEB QID, (Reported) Loperamide HCl 2 Mg Capsule, 2 MG PO UD PRN for DIARRHEA, (Reported) Meclizine HCl 25 Mg Tablet, 50 MG PO Q6H PRN for DIZZINESS, (Reported) Melatonin 5 Mg Tablet, 5 MG PO HS PRN for RESTLESSNESS, (Reported) Montelukast Sodium 10 Mg Tablet, 10 MG PO DAILY, (Reported) Oxycodone HCl/Acetaminophen 1 Each Tablet, 1 TAB PO Q6H PRN for SHINGLES PAIN, (Reported) Potassium Chloride 20 Meq Tablet.er, 20 MEQ PO 0700, (Reported) Sennosides/Docusate Sodium 1 Each Tablet, 1 TAB PO BID, (Reported) [Instaflex] , 1 TAB PO DAILY, (Reported) Patient Home Medication List Home Medication List Reviewed: Yes Review of Systems Constitutional: No chills, No diaphoresis EENTM: No ear discharge, No ear pain Respiratory: No cough, No short of breath Cardiovascular: No chest pain, No edema Gastrointestinal: No abdominal pain, No constipation, No diarrhea, No nausea, No vomiting Genitourinary: No discharge, No dysuria Musculoskeletal: see HPI; No back pain; joint pain Skin: No pruritus; rash (previous shingles under her left breast) Psychiatric/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: Denies Anxiety, Denies Depressed Past Fujpuxq-Bjzixh-Sgyfei Hx Patient Social History Alcohol Use: Denies Use Recreational Drug Use: No Smoking Status: Former Smoker Type Used: Cigarettes Former Smoker, Quit: Aug 27, 2004 2nd Hand Smoke Exposure: No Recent Foreign Travel: No Contact w/Someone Who Travel: No Recent Infectious Disease Expo: No Recent Hopitalizations: No Immunizations Up To Date Tetanus Booster (TDap): Unknown Date of Pneumonia Vaccine: Sep 17, 2015 Date of Influenza Vaccine: Jul 19, 2019 Seasonal Allergies Seasonal Allergies: No Past Medical History Surgeries: Yes (CARDIAC CATH X 3--STENTS X 4) Cardiac, Coronary Stent, Gallbladder, Tubal Ligation Respiratory: Yes Pneumonia, COPD Currently Using CPAP: No Currently Using BIPAP: No Cardiac: Yes (CHF; CARDIAC CATHS X 3 WITH STENTS X 4) Atrial Fibrillation, Coronary Artery Disease, Heart Attack, High Cholesterol, Hypertension 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: No Dementia, Vertigo 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 ) Loss of Vision: Denies Cancer: No Psychosocial: Yes Anxiety, Depression Integumentary: No Blood Disorders: No Adverse Reaction/Blood Tranf: No Family Medical History Cardiovascular disease 19 MOTHER Diabetes mellitus 19 MOTHER Hypertension 19 MOTHER No Pertinent Family Hx LONG HISTORY OF NON-COMPLIANCE Physical Exam Vital Signs Vital Signs - First Documented 01/01/20 07:52 Temp 37.0 Pulse 115 Resp 16 B/P (MAP) 200/78 (118) Pulse Ox 90 O2 Delivery Room Air Capillary Refill : Less Than 3 Seconds Height, Weight, BMI Height: 5'4.00" Weight: 170lbs. 0oz. 77.668477qe; 34.00 BMI Method:Stated General Appearance: WD/WN, Mild Distress HEENT: PERRL/EOMI, TMs Normal, Normal ENT Inspection, Pharynx Normal, Moist Mucous Membranes Neck: Full Range of Motion, Normal Inspection, Non Tender, Supple Cardiovascular: Regular Rate, Rhythm, No Edema, Normal Peripheral Pulses Respiratory: Chest Non Tender, Lungs Clear, Normal Breath Sounds, No Accessory Muscle Use, No Respiratory Distress Peripheral Pulses: 2+ Dorsalis Pedis (R), 2+ Left Dors-Pedis (L), 2+ Radial Pulses (R), 2+ Radial Pulses (L) Gastrointestinal: Normal Bowel Sounds, Non Tender, Soft Extremity: Normal Capillary Refill, Normal Inspection, Normal Range of Motion, No Calf Tenderness, Other (mild tenderness along the left inguinal ligament. No ecchymoses or deformity.) Neurologic/Psychiatric: Alert, Oriented x3, Depressed Affect, Motor Weakness (4-5 left lower extremity versus 5 out of 5 right lower extremity to dorsiflexion, plantar flexion. 3 out of 5 motor strength on lifting left hip flexors), Other (4-5 motor strength left lower) Skin: Normal Color, Warm/Dry Progress/Results/Core Measures Results/Orders Lab Results Laboratory Tests Test 01/01/20 08:08 01/01/20 08:45 Range/Units White Blood Count 17.6 H 4.3-11.0 10^3/uL Red Blood Count 5.11 4.35-5.85 10^6/uL Hemoglobin 15.1 11.5-16.0 G/DL Hematocrit 45 35-52 % Mean Corpuscular Volume 88 80-99 FL Mean Corpuscular Hemoglobin 30 25-34 PG Mean Corpuscular Hemoglobin Concent 34 32-36 G/DL Red Cell Distribution Width 15.1 H 10.0-14.5 % Platelet Count 313 130-400 10^3/uL Mean Platelet Volume 10.2 7.4-10.4 FL Neutrophils (%) (Auto) 88 H 42-75 % Lymphocytes (%) (Auto) 5 L 12-44 % Monocytes (%) (Auto) 4 0-12 % Eosinophils (%) (Auto) 2 0-10 % Basophils (%) (Auto) 0 0-10 % Neutrophils # (Auto) 15.5 H 1.8-7.8 X 10^3 Lymphocytes # (Auto) 1.0 1.0-4.0 X 10^3 Monocytes # (Auto) 0.7 0.0-1.0 X 10^3 Eosinophils # (Auto) 0.4 H 0.0-0.3 10^3/uL Basophils # (Auto) 0.0 0.0-0.1 10^3/uL Neutrophils % (Manual) 86 % Lymphocytes % (Manual) 5 % Monocytes % (Manual) 6 % Eosinophils % (Manual) 3 % Band Neutrophils % Blood Morphology Comment NORMAL Sodium Level 139 135-145 MMOL/L Potassium Level 3.3 L 3.6-5.0 MMOL/L Chloride Level 101 98-107 MMOL/L Carbon Dioxide Level 25 21-32 MMOL/L Anion Gap 13 5-14 MMOL/L Blood Urea Nitrogen 9 7-18 MG/DL Creatinine 0.76 0.60-1.30 MG/DL Estimat Glomerular Filtration Rate > 60 BUN/Creatinine Ratio 12 Glucose Level 140 H 70-105 MG/DL Calcium Level 9.4 8.5-10.1 MG/DL Corrected Calcium 9.6 8.5-10.1 MG/DL Total Bilirubin 2.4 H 0.1-1.0 MG/DL Aspartate Amino Transf (AST/SGOT) 23 5-34 U/L Alanine Aminotransferase (ALT/SGPT) 17 0-55 U/L Alkaline Phosphatase 127 40-136 U/L Total Creatine Kinase 27 L 29-168 U/L B-Type Natriuretic Peptide 819.2 H <100.0 PG/ML Total Protein 7.3 6.4-8.2 GM/DL Albumin 3.8 3.2-4.5 GM/DL Urine Color YELLOW Urine Clarity CLEAR Urine pH 7.0 5-9 Urine Specific Isom 1.025 H 1.016-1.022 Urine Protein 3+ H NEGATIVE Urine Glucose (UA) NEGATIVE NEGATIVE Urine Ketones NEGATIVE NEGATIVE Urine Nitrite NEGATIVE NEGATIVE Urine Bilirubin NEGATIVE NEGATIVE Urine Urobilinogen 0.2 < = 1.0 MG/DL Urine Leukocyte Esterase NEGATIVE NEGATIVE Urine RBC (Auto) TRACE-I NEGATIVE Urine RBC RARE /HPF Urine WBC 10-25 H /HPF Urine Squamous Epithelial Cells 0-2 /HPF Urine Crystals NONE /LPF Urine Bacteria FEW H /HPF Urine Casts NONE /LPF Urine Mucus NEGATIVE /LPF Urine Culture Indicated YES Micro Results Microbiology 01/01/20 Influenza Types A,B Antigen (KENA) - Final, Complete My Orders Orders - HEMANT BAL Chest 1 View, Ap/Pa Only (01/01/20 07:59) Hip, Left, 2 Views (01/01/20 07:59) Cbc With Automated Diff (01/01/20 07:59) Comprehensive Metabolic Panel (01/01/20 07:59) Ua Culture If Indicated (01/01/20 07:59) Creatine Kinase (01/01/20 08:00) Ct Head/Cervical Spine Wo (01/01/20 08:00) Ed Iv/Invasive Line Start (01/01/20 08:00) Ns Iv 500 Ml (Sodium Chloride 0.9%) (01/01/20 08:00) BNP (01/01/20 08:00) Fentanyl Injection (Sublimaze Injection (01/01/20 08:00) Manual Differential (01/01/20 08:08) Influenza A And B Antigens (01/01/20 08:34) Urine Culture (01/01/20 08:45) Blood Culture (01/01/20 09:23) Sputum Culture (01/01/20 09:23) Protime With Inr (01/01/20 09:23) Partial Thromboplastin Time (01/01/20 09:23) Ed Iv/Invasive Line Start (01/01/20 09:23) Ed Iv/Invasive Line Start (01/01/20 09:23) Vital Signs Adult Sepsis Patie Q15M (01/01/20 09:23) O2 (01/01/20 09:23) Remove Rings In Anticipation O (01/01/20 09:23) Lactic Acid Analyzer (01/01/20 09:23) Ns Iv 1000 Ml (Sodium Chloride 0.9%) (01/01/20 09:23) Oseltamivir 75 Mg Capsule (Tamiflu 75 (01/01/20 09:30) Ceftriaxone For Iv Use (Rocephin For I (01/01/20 09:30) Medications Given in ED Current Medications Medications Dose Ordered Sig/Kadeem Route Start Time Stop Time Status Last Admin Dose Admin Fentanyl Citrate 25 mcg ONCE ONCE IVP 01/01/20 08:00 01/01/20 08:05 DC 01/01/20 08:15 25 MCG Oseltamivir Phosphate 75 mg ONCE ONCE PO 01/01/20 09:30 01/01/20 09:31 DC 01/01/20 09:32 75 MG Sodium Chloride 500 ml @ 0 mls/hr Q0M ONCE IV 01/01/20 08:00 01/01/20 08:05 DC 01/01/20 08:15 500 MLS/HR Vital Signs/I&O 01/01/20 07:52 Temp 37.0 Pulse 115 Resp 16 B/P (MAP) 200/78 (118) Pulse Ox 90 O2 Delivery Room Air Blood Pressure Mean: 118 Progress Progress Note : Time: 08:06 Progress Note Upon arrival the patient does have a heart rate of 110 but no fever. She is oriented however she is slow in getting answers. Suspect may be underlying issu e. Plan to scan her head since she is on some kind of an antiplatelet as well as get x-rays of her left hip. A left hip is intact and she still having pain despite 25 g of fentanyl and we may consider getting a CT of her abdomen pelvis with IV contrast of the lateral looking for an intra-abdominal explanation for her pain. We'll get a CPK as I am suspicious of her history whether she really just laid for 30 minutes. Plan to give her a 500 mL bolus of fluids to see if that helps with her tachycardia. Her tachycardia could be from hypoxia since she was about 88% on room air on arrival versus infection versus pain versus dehydration? Patient does admit to thirst and appears clinically dry. She says she was unable to get any sleep overnight. Diagnostic Imaging Diagonstic Imaging: Xray Plain Films/CT/US/NM/MRI: chest (1v) Comments NAME: KELLEY GARCIA [facility] REC#: [id number] PT STATUS: REG ER : 1945 PHYSICIAN: HEMANT BAL MD ADMIT DATE: 01/01/20/ER Draft Date of Exam:01/01/20 CHEST 1 VIEW, AP/PA ONLY HISTORY: Fall TECHNIQUE: Single frontal view of the chest. COMPARISON: 11/05/2019 FINDINGS: There is moderate cardiomegaly. There are chronic interstitial opacities in the lungs with mild central vascular congestion. No pleural effusion or pneumothorax is seen. There is aortic atherosclerosis. IMPRESSION: 1.. Stable cardiomegaly with chronic interstitial opacities which may be due to vascular congestion/interstitial edema. Dictated on workstation # [id number] Dict: 01/01/20 0848 Trans: 01/01/20 0851 [facility] [id number] Interpreted by: KANNAN NICHOLAS MD Electronically signed by: Reviewed: Reviewed by Me Diagonstic Imaging: Xray Plain Films/CT/US/NM/MRI: hip (left) Comments [facility] [place] [place] NAME: KELLEY GARCIA [facility] REC#: [id number] PT STATUS: REG ER : 1945 PHYSICIAN: HEMANT BAL MD ADMIT DATE: 01/01/20/ER Draft Date of Exam:01/01/20 HIP, LEFT, 2 VIEWS HISTORY: Fall with left hip pain. TECHNIQUE: Two views of the left hip. COMPARISON: None. FINDINGS: There is an impacted subcapital fracture of the left femoral neck without significant displacement. There may be mild posterior angulation. The femoroacetabular alignment appears normal. There are degenerative changes in the left sacroiliac joint. There is surrounding soft tissue edema. IMPRESSION: 1. Impacted fracture of the left femoral neck. Dictated on workstation # [id number] Dict: 01/01/20 0851 Trans: 01/01/20 0856 [id number] Interpreted by: KANNAN NICHOLAS MD Electronically signed by: Reviewed: Reviewed by Me Diagonstic Imaging: CT Plain Films/CT/US/NM/MRI: c-spine, head Comments [facility] [place] NAME: KELLEY GARCIA [facility] REC#: [id number] PT STATUS: REG ER : 1945 PHYSICIAN: HEMANT BAL MD ADMIT DATE: 01/01/20/ER Draft Date of Exam:01/01/20 CT HEAD/CERVICAL SPINE WO PROCEDURE: CT head and CT cervical spine without contrast. TECHNIQUE: Multiple contiguous axial images were obtained through the brain and cervical spine without the use of intravenous contrast. Sagittal and coronal reformations through the cervical spine were then performed. Auto Exposure Controls were utilized during the CT exam to meet ALARA standards for radiation dose reduction. DATE: January 01, 2020. COMPARISON: CT head October 11, 2019. INDICATION: 74-year-old female, fall while sitting. Head and neck pain. FINDINGS: There are prominent areas of low-attenuation in the periventricular and subcortical white matter which are nonspecific but most likely relate to extensive changes of chronic small vessel ischemic disease. This is unchanged since comparison CT head imaging. There is mild proportional prominence of the ventricles and CSF spaces consistent with mild cerebral volume loss. There is no mass effect or midline shift. There is no acute intracranial hemorrhage. There is no abnormal extra-axial fluid collection. The left sphenoid sinus is hypoplastic. There is no identified facet joint subluxation or dislocation. There are no prominent facet degenerative changes of the cervical spine. There is no asymmetric widening of the cervical disc spaces. There is moderate to severe disc height loss at C3-C4, C4-C5, and C5-C6. There is moderate disc height loss at C6-C7. There are posterior disc osteophyte complexes at these levels. CT is limited for assessment of disc pathology as well as additional non-bony causes of pathology in the spinal canal. There is no acute fracture of the cervical spine. The visualized portions of the lung apices are clear. IMPRESSION: 1. No identified acute intracranial abnormality. 2. Mild cerebral volume loss and extensive changes of chronic small vessel ischemic disease. 3. Multilevel disc degenerative changes of the cervical spine. 4. No identified acute abnormality of the cervical spine. Dictated on workstation # [id number] Dict: 01/01/20 0838 Trans: 01/01/20 0850 [id number] Interpreted by: THI LAZARO MD Electronically signed by: Reviewed: Reviewed by Me Departure Communication (Admissions) Time/Spoke to Admitting Phy: 09:30 Discussed the case with Dr. Jose and she agrees with cardiac stepdown as well as a consult with Dr. 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 She agrees with antibiotic selection. Time/Spoke to Consulting Phy: 09:35 Discussed the case with Dr. Wasserman, orthopedic surgery and he said he would consult on the case. Discussed the case with Dr. Kim who said he would discussed the case with Dr. Bermudez who was sitting right beside him. Impression Primary Impression: Closed left hip fracture Qualified Codes: S72.002A - Fracture of unspecified part of neck of left femur, initial encounter for closed fracture Additional Impressions: UTI (urinary tract infection) Qualified Codes: N30.00 - Acute cystitis without hematuria Sepsis Qualified Codes: A41.9 - Sepsis, unspecified organism Influenza Disposition: ADMITTED INPATIENT Condition: Stable Admissions Decision to Admit Reason: Admit from ER (General) Decision to Admit/Date: Jan 01, 2020 Time/Decision to Admit Time: 09:27 Departure-Patient Inst. Referrals: JEROME NEAL DO (PCP/Family) Primary Care Physician HEMANT BAL Jan 01, 2020 08:10
[2020-01-01 08:19] LABS: BASOPHILS % (AUTO) 0 % (0-10); EOSINOPHILS # (AUTO) 0.4 10^3/uL (0.0-0.3); EOSINOPHILS % (AUTO) 2 % (0-10); HEMATOCRIT 45 % (35-52); HEMOGLOBIN 15.1 G/DL (11.5-16.0); LYMPHOCYTES % (AUTO) 5 % (12-44); MEAN CORPUSCULAR HEMOGLOBIN 30 PG (25-34); MEAN CORPUSCULAR HGB CONC 34 G/DL (32-36); MEAN CORPUSCULAR VOLUME 88 FL (80-99); MEAN PLATELET VOLUME 10.2 FL (7.4-10.4); MONOCYTES # (AUTO) 0.7 X 10^3 (0.0-1.0); MONOCYTES % (AUTO) 4 % (0-12); NEUTROPHILS # (AUTO) 15.5 X 10^3 (1.8-7.8); NEUTROPHILS % (AUTO) 88 % (42-75); PLATELET COUNT 313 10^3/uL (130-400); RED CELL DISTRIBUTION WIDTH 15.1 % (10.0-14.5); WHITE BLOOD COUNT 17.6 10^3/uL (4.3-11.0)
[2020-01-01 08:45] LABS: ALANINE AMINOTRANSFERASE 17 U/L (0-55); ALBUMIN 3.8 GM/DL (3.2-4.5); ALKALINE PHOSPHATASE 127 U/L (40-136); BILIRUBIN,TOTAL 2.4 MG/DL (0.1-1.0); BUN/CREATININE RATIO 12; CALCIUM 9.4 MG/DL (8.5-10.1); CARBON DIOXIDE 25 MMOL/L (21-32); CHLORIDE 101 MMOL/L (98-107); CREATINE KINASE 27 U/L (29-168); CREATININE SERUM 0.76 MG/DL (0.60-1.30); GFR ESTIMATED > 60; GLUCOSE 140 MG/DL (70-105); POTASSIUM 3.3 MMOL/L (3.6-5.0); SODIUM 139 MMOL/L (135-145); TOTAL PROTEIN 7.3 GM/DL (6.4-8.2)
--- NOTE | 2020-01-01 08:50 | Diagnostic Imaging Report ---
PROCEDURE: CT head and CT cervical spine without contrast. TECHNIQUE: Multiple contiguous axial images were obtained through the brain and cervical spine without the use of intravenous contrast. Sagittal and coronal reformations through the cervical spine were then performed. Auto Exposure Controls were utilized during the CT exam to meet ALARA standards for radiation dose reduction. DATE: January 01, 2020. COMPARISON: CT head October 11, 2019. INDICATION: 74-year-old female, fall while sitting. Head and neck pain. FINDINGS: There are prominent areas of low-attenuation in the periventricular and subcortical white matter which are nonspecific but most likely relate to extensive changes of chronic small vessel ischemic disease. This is unchanged since comparison CT head imaging. There is mild proportional prominence of the ventricles and CSF spaces consistent with mild cerebral volume loss. There is no mass effect or midline shift. There is no acute intracranial hemorrhage. There is no abnormal extra-axial fluid collection. The left sphenoid sinus is hypoplastic. There is no identified facet joint subluxation or dislocation. There are no prominent facet degenerative changes of the cervical spine. There is no asymmetric widening of the cervical disc spaces. There is moderate to severe disc height loss at C3-C4, C4-C5, and C5-C6. There is moderate disc height loss at C6-C7. There are posterior disc osteophyte complexes at these levels. CT is limited for assessment of disc pathology as well as additional non-bony causes of pathology in the spinal canal. There is no acute fracture of the cervical spine. The visualized portions of the lung apices are clear. IMPRESSION: 1. No identified acute intracranial abnormality. 2. Mild cerebral volume loss and extensive changes of chronic small vessel ischemic disease. 3. Multilevel disc degenerative changes of the cervical spine. 4. No identified acute abnormality of the cervical spine. Dictated by: Dictated on workstation # [id number]
--- NOTE | 2020-01-01 08:52 | Diagnostic Imaging Report ---
HISTORY: Fall TECHNIQUE: Single frontal view of the chest. COMPARISON: 11/05/2019 FINDINGS: There is moderate cardiomegaly. There are chronic interstitial opacities in the lungs with mild central vascular congestion. No pleural effusion or pneumothorax is seen. There is aortic atherosclerosis. IMPRESSION: 1.. Stable cardiomegaly with chronic interstitial opacities which may be due to vascular congestion/interstitial edema. Dictated by: Dictated on workstation # [id number]
[2020-01-01 08:53] LABS: BILIRUBIN,URINE NEGATIVE (NEGATIVE); CLARITY,URINE CLEAR; COLOR,URINE YELLOW; GLUCOSE, URINE (UA) NEGATIVE (NEGATIVE); KETONES,URINE NEGATIVE (NEGATIVE); LEUKOCYTE ESTERASE ,URINE NEGATIVE (NEGATIVE); NITRITE,URINE NEGATIVE (NEGATIVE); PROTEIN,URINE 3+ (NEGATIVE)
--- NOTE | 2020-01-01 08:56 | Diagnostic Imaging Report ---
HISTORY: Fall with left hip pain. TECHNIQUE: Two views of the left hip. COMPARISON: None. FINDINGS: There is an impacted subcapital fracture of the left femoral neck without significant displacement. There may be mild posterior angulation. The femoroacetabular alignment appears normal. There are degenerative changes in the left sacroiliac joint. There is surrounding soft tissue edema. IMPRESSION: 1. Impacted fracture of the left femoral neck. Dictated by: Dictated on workstation # [id number]
[2020-01-01 09:05] LABS: BACTERIA,URINE FEW /HPF; RBC,URINE RARE /HPF; SQUAMOUS EPITHELIAL CELL,UR 0-2 /HPF
[2020-01-01 09:06] LABS: EOSINOPHILS % (MANUAL) 3 %; LYMPHOCYTES % (MANUAL) 5 %; MONOCYTES % (MANUAL) 6 %; NEUTROPHILS % (MANUAL) 86 %; RBC MORPH NORMAL
[2020-01-01] MEDS ORDERED: NS IV 1000 ML 1,000 ML IV SCH (09:23)
[2020-01-01] MEDS ORDERED: cefTRIAXone FOR IV USE 1,000 MG in WATER (STERILE) FOR INJECTION 10 ML IV ONE (09:30)
[2020-01-01] MEDS ORDERED: OSELTAMIVIR 75 MG (TAMIFLU) CAPSULE PO ONE (09:30)
--- NOTE | 2020-01-01 09:59 | NUR ---
ATTEMPT TO CALL REPORT ET NURSE UNAVAILABLE AT THIS TIME AND WILL CALL BACK.
[2020-01-01 10:01] LABS: INR 1.1 (0.8-1.4); PROTHROMBIN TIME PATIENT 14.6 SEC (12.2-14.7)
--- NOTE | 2020-01-01 10:15 | NUR ---
DR BAL NOTIFIED ON CONTINUING HIGH BP.
[2020-01-01] MEDS ORDERED: 1/2 NS W/KCL 20 MEQ/L 1,000 ML IV ONE (10:31)
[2020-01-01] MEDS ORDERED: NOREPINEPHRINE 4 MG/250 ML 250 ML IV SCH (10:50)
[2020-01-01] MEDS ORDERED: VASOPRESSIN INJECTION 20 UNIT in NORMAL SALINE 100 ML IV SCH (10:50)
[2020-01-01] MEDS ORDERED: fentaNYL INJECTION 100 MCG/2 ML AMP ONE (10:52)
[2020-01-01] MEDS ORDERED: EPINEPHrine 1 MG INJECTION 2 MG in NS (IVPB) 250 ML IV SCH (11:00)
[2020-01-01] MEDS ORDERED: cefTRIAXone FOR IV USE 1,000 MG in WATER (STERILE) FOR INJECTION 10 ML IV SCH (11:00)
[2020-01-01] MEDS ORDERED: ANTACID SUSP 30 ML UDC (MYLANTA) PO PRN (11:15)
[2020-01-01] MEDS ORDERED: fentaNYL INJECTION 100 MCG/2 ML AMP IVP PRN (11:15)
[2020-01-01] MEDS ORDERED: ONDANSETRON 4 MG/2 ML (SDV) Z0FRAN IVP PRN (11:15)
[2020-01-01] MEDS: CARVEDILOL 12.5 MG (COREG) TABLET PO SCH ×2 (11:17→20:37)
[2020-01-01] MEDS: 1/2 NS W/KCL 20 MEQ/L 1,000 ML IV SCH ×2 (11:18→20:59)
--- NOTE | 2020-01-01 11:20 | NUR ---
Pastoral care visit.
--- NOTE | 2020-01-01 11:32 | History & Physical-Hospitalist ---
History of Present Illness HPI/Chief Complaint Patient presented to ED after falling from a stool yesterday at around 8am, she said she laid there for 30 minutes before someone came to help. She denies LOC and head CT shows no acute process. She has a L femoral head fracture. Source: patient Date Seen 01/01/20 Attending Physician Terese Verde DO PCP Terese Verde DO Referring Physician Date of Admission Jan 01, 2020 at 09:52 Home Medications & Allergies Home Medications Reviewed patient Home Medication Reconciliation performed by pharmacy medication reconciliations contact lens technician and/or nursing. Patients Allergies have been reviewed. Allergies Allergies Coded Allergies Sulfa (Sulfonamide Antibiotics) (Verified Allergy, Unknown, 12/27/17) Past Qjdhclk-Eelfqw-Qgjcek Hx Patient Social History Alcohol Use: Denies Use Recreational Drug Use: No Smoking Status: Former Smoker Former Smoker, Quit: Aug 27, 2004 Type Used: Cigarettes 2nd Hand Smoke Exposure: No Recent Foreign Travel: No Contact w/other who traveled: No Recent Hopitalizations: No Recent Infectious Disease Expo: No Immunizations Up To Date Tetanus Booster (TDap): Unknown Date of Pneumonia Vaccine: Sep 17, 2015 Date of Influenza Vaccine: Jul 19, 2019 Seasonal Allergies Seasonal Allergies: No Past Medical History Surgeries: Cardiac, Coronary Stent, Gallbladder, Tubal Ligation Respiratory: Chronic Bronchitis, COPD, Emphysema, Pneumonia Currently Using CPAP: No Currently Using BIPAP: No Cardiac: Atrial Fibrillation, Coronary Artery Disease, Heart Attack, High Cholesterol, Hypertension 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: Dementia, Vertigo Sexually Transmitted Disease: No HIV/AIDS: No Menopausal Genitourinary: Bladder Infection, Renal Failure Gastrointestinal: Gastroesophageal Reflux Musculoskeletal: Arthritis, Rheumatoid Arthritis Loss of Vision: Denies Psychosocial: Anxiety, Depression History of Blood Disorders: No Adverse Reaction to Blood Sousa: No Family History Cardiovascular disease 19 MOTHER Diabetes mellitus 19 MOTHER Hypertension 19 MOTHER No Pertinent Family Hx LONG HISTORY OF NON-COMPLIANCE Physical Exam Physical Exam Vital Signs Vital Signs - First Documented 01/01/20 01/01/20 07:52 10:15 Temp 37.0 Pulse 115 Resp 16 B/P (MAP) 200/78 (118) Pulse Ox 90 O2 Delivery Room Air O2 Flow Rate 2.00 Capillary Refill : Less Than 3 Seconds Height, Weight, BMI Height: 5'4.00" Weight: 170lbs. 0oz. 77.165041ls; 34.00 BMI Method:Stated Results Results/Procedures Labs Laboratory Tests 3/16/20 08:08 Patient resulted labs reviewed. Assessment/Plan Assessment and Plan L femoral head hip fracture after fall Flu A and B Leukocytosis Hypokalemia Elevated BNP COPD CAD Hx of DE hx of Afib Dementia Arthritis HTN Ortho consult for hip fracture evaluation Consult Cardiology pain control - fentanyl Tamiflu IVF, replace K Isolation CCB for HTN BENIGNO PEREZ MED STUD Jan 01, 2020 11:32
--- NOTE | 2020-01-01 12:59 | Consultation - Ortho ---
Consult - Ortho Subjective Date of Exam 01/01/20 Chief Complaint Left hip pain HPI/Events since last exam The patient is a 74-year-old white female who injured her left hip yesterday when she fell off a bar stool. She stated she fell directly onto the left hip. She had immediate onset of left hip pain. She has not been ambulating. She stated she has been in bed since the injury. Due to continued pain she was seen in the emergency room this morning. X-rays did show an impacted subcapital fracture left hip. She is admitted by Dr. Verde for possible surgical treatment. She also tested positive for influenza A and B. She also is noted to have a urinary tract infection. She is on Eliquis for A. fib She denies any previous problems with the left hip. She states she walks without a walker or cane. She denies any previous orthopedic problems. Medical, Surgical History Reviewed and no additions or changes Social History Reviewed and no additions or changes Family History Reviewed and no additions or changes Review of Systems Reviewed and no additions or changes Allergies: Coded Allergies: Sulfa (Sulfonamide Antibiotics) (Verified Allergy, Unknown, 12/27/17) Home Meds Reported Medications Melatonin (Melatonin) 5 Mg Tablet, 5 MG PO HS PRN for RESTLESSNESS, TAB 11/03/19 Oxycodone HCl/Acetaminophen (Percocet 5-325 mg Tablet) 1 Each Tablet, 1 TAB PO Q6H PRN for SHINGLES PAIN, TAB 11/03/19 Meclizine HCl (Meclizine HCl) 25 Mg Tablet, 50 MG PO Q6H PRN for DIZZINESS, TAB 11/03/19 Loperamide HCl (Loperamide) 2 Mg Capsule, 2 MG PO UD PRN for DIARRHEA, CAP 11/03/19 Fluticasone/Salmeterol (Advair Hfa 115-21 Mcg Inhaler) 12 Gm Hfa.aer.ad, 2 PUFF IH Q12H PRN for SHORTNESS OF BREATH, INHALER 11/03/19 Calcium Carbonate (Calcium Carbonate) 200 Mg Tab.chew, 500 MG PO TID PRN for INDIGESTION, TAB 11/03/19 Alprazolam (Alprazolam) 0.25 Mg Tablet, 0.25 MG PO Q8H PRN for ANXIETY, TAB 11/03/19 Potassium Chloride (Potassium Chloride) 20 Meq Tablet.er, 20 MEQ PO 0700, TAB 11/03/19 Furosemide (Furosemide) 40 Mg Tablet, 40 MG PO 0700, TAB 11/03/19 Ipratropium/Albuterol Sulfate (Iprat-Albut 0.5-3(2.5) mg/3 ml) 3 Ml Ampul.neb, 3 ML NEB QID, EACH 11/03/19 Montelukast Sodium (Singulair) 10 Mg Tablet, 10 MG PO DAILY, TAB 11/03/19 Sennosides/Docusate Sodium (Senna S Tablet) 1 Each Tablet, 1 TAB PO BID, TAB 11/03/19 Docusate Sodium (Colace) 100 Mg Capsule, 100 MG PO BID, CAP 11/03/19 Diltiazem HCl (Diltiazem 24Hr Cd) 240 Mg Cap.er.24h, 240 MG PO DAILY, CAP 11/03/19 Carvedilol (Carvedilol) 12.5 Mg Tablet, 12.5 MG PO BID, TAB 11/03/19 Atorvastatin Calcium (Atorvastatin Calcium) 20 Mg Tablet, 20 MG PO HS, TAB 10/09/19 Citalopram Hydrobromide (Celexa) 20 Mg Tablet, 20 MG PO HS, TAB 10/09/19 [Instaflex] No Conflict Check, 1 TAB PO DAILY, TAB 12/27/17 Apixaban (Eliquis) 5 Mg Tablet, 5 MG PO BID, TAB 12/27/17 Objective Exam Constitutional: [] HEENT: [] Neck: [No pain with palpation or range of motion] Cardiovascular: [] Respiratory: [] Gastrointestinal: [] Genitourinary: [] Skin: [] Back/Spine: No pain with palpation [] Extremities: [] Upper extremitiesno deformity. Good motion without pain. No skin changes. No crepitation. Normal sensation to the fingers and thumb with good cap refill. Good radial pulse. Right lower extremitygood motion of the hip, knee and ankle without pain. No deformity. She is able to dorsiflex and plantarflex the foot and ankle without pain. Normal sensation to the foot and toes with good capillary refill. Good pulses. No calf tenderness and negative Homans. Left lower extremitypain with motion and palpation left hip. No pain at the knee and no effusion. No skin changes. No pain at the ankle with full motion. Normal sensation to the foot and toes with good capillary refill and good pulses. No calf tenderness and negative Homans. She is able to plantarflex and dorsiflex the foot and ankle without pain. No weakness. Neurologic: [Grossly intact] Psychiatric: [] Hematologic/lymphatic/immunologic: [] Vital Signs Vital Signs Date Time Temp Pulse Resp B/P (MAP) Pulse Ox O2 Delivery O2 Flow Rate FiO2 01/01/20 12:16 94 Nasal Cannula 2.00 01/01/20 12:09 115 01/01/20 12:00 126 19 154/108 (123) 89 Room Air 01/01/20 11:00 107 27 148/112 (124) 92 Room Air 01/01/20 10:42 109 01/01/20 10:30 105 24 169/108 (128) 99 Room Air 01/01/20 10:15 36.7 114 18 181/124 96 Nasal Cannula 2.00 01/01/20 07:52 37.0 115 16 200/78 (118) 90 Room Air Lab Results Laboratory Tests 01/01/20 08:08: White Blood Count 17.6H, Red Blood Count 5.11, Hemoglobin 15.1, Hematocrit 45, Mean Corpuscular Volume 88, Mean Corpuscular Hemoglobin 30, Mean Corpuscular Hemoglobin Concent 34, Red Cell Distribution Width 15.1H, Platelet Count 313, Mean Platelet Volume 10.2, Neutrophils (%) (Auto) 88H, Lymphocytes (%) (Auto) 5L , Monocytes (%) (Auto) 4, Eosinophils (%) (Auto) 2, Basophils (%) (Auto) 0, Neutrophils # (Auto) 15.5H, Lymphocytes # (Auto) 1.0, Monocytes # (Auto) 0.7, Eosinophils # (Auto) 0.4H, Basophils # (Auto) 0.0, Neutrophils % (Manual) 86, Lymphocytes % (Manual) 5, Monocytes % (Manual) 6, Eosinophils % (Manual) 3, Band Neutrophils , Blood Morphology Comment NORMAL, Prothrombin Time 14.6, INR Comment 1.1, Activated Partial Thromboplast Time 29, Sodium Level 139, Potassium Level 3.3L, Chloride Level 101, Carbon Dioxide Level 25, Anion Gap 13, Blood Urea Nitrogen 9, Creatinine 0.76, Estimat Glomerular Filtration Rate > 60, BUN/Creatinine Ratio 12, Glucose Level 140H, Calcium Level 9.4, Corrected Calcium 9.6, Total Bilirubin 2.4H, Aspartate Amino Transf (AST/SGOT) 23, Alanine Aminotransferase (ALT/SGPT) 17, Alkaline Phosphatase 127, Total Creatine Kinase 27L, B-Type Natriuretic Peptide 819.2H, Total Protein 7.3, Albumin 3.8 01/01/20 08:45: Urine Color YELLOW, Urine Clarity CLEAR, Urine pH 7.0, Urine Specific [place] 1.025H, Urine Protein 3+H, Urine Glucose (UA) NEGATIVE, Urine Ketones NEGATIVE, Urine Nitrite NEGATIVE, Urine Bilirubin NEGATIVE, Urine Urobilinogen 0.2, Urine Leukocyte Esterase NEGATIVE, Urine RBC (Auto) TRACE-I, Urine RBC RARE, Urine WBC 10-25H, Urine Squamous Epithelial Cells 0-2, Urine Crystals NONE, Urine Bacteria FEWH, Urine Casts NONE, Urine Mucus NEGATIVE, Urine Culture Indicated YES 01/01/20 09:35: Lactic Acid Level 1.51 Microbiology 01/01/20 Influenza Types A,B Antigen (KENA) - Final, Complete Imaging X-rays were reviewed of the left hip. She has an impacted subcapital fracture. There is slight posterior displacement on the lateral view. No other fractures are noted. Assessment and Plan Assessment Impacted subcapital fracture left hip Problem List Impacted subcapital fracture left hip Plan Treatment options were discussed with the patient as well as her daughter. Initially I spoke to just the patient and the daughter arrived as I was leaving. I talked to both of them about the injury itself as well as the fracture. We talked about nonoperative treatment which is an option for an impacted subcapital fracture. With this type treatment one has to be very careful and maintain nonweightbearing status. Even doing this the fracture can displace. Operative treatments were discussed which included in situ cannulated screw fixation as well as cemented bipolar hemiarthroplasty. The procedure, risks and complications were discussed. After discussing this both thought that they would like to proceed with the in situ cannulated screw fixation. I talked to them about the postop recovery with nonweightbearing initially and then proceed to partial weightbearing and then full weightbearing on there is enough healing. Also discussed the possibility of the fracture moving even after in situ screw fixation. They also understand that he fracture may not heal, the head may undergo avascular changes even up to 2 years. Again they would like to proceed with in situ screw fixation but they wanted discuss this further. I also talked to Dr. Verde and she would like to proceed as soon as possible with the surgery tomorrow if available. I did call surgery and we can do her tomorrow afternoon. She is set up for in situ screw fixation but if the family changes her mind and wants to proceed with nonoperative treatment or with cemented bipolar hemiarthroplasty obviously we can change her plan. Final Diagonsis Impacted subcapital fracture left hip Level of the visit: Level 3 LIBRADO BONILLA MD Jan 01, 2020 12:59
[2020-01-01] MEDS: fentaNYL INJECTION 100 MCG/2 ML AMP IVP PRN ×2 (13:02→16:07)
--- NOTE | 2020-01-01 13:24 | History & Physical ---
BENIGNO PEREZ [facility] [place] 01/01/20 1324: History of Present Illness History of Present Illness Reason for visit/HPI Patient is known to via shanel and rehab floor, she has history of FL, Afib, CAD, dementia, and COPD, presented to ED after falling from a stool yesterday at around 8am, she said she laid there for 30 minutes before someone came to help. She denies LOC and head CT shows no acute process. She has a L femoral head fracture and is being consulted by ortho for possible surgery tomorrow. She can't rate the pain at this moment but she says its well controlled. She reports also having back spasms. She has Flu A and B. Date of Admission Jan 01, 2020 at 09:52 Date Seen by a Provider: Jan 01, 2020 Time Seen by a Provider: 13:03 I consulted on this patient on 01/01/20 13:17 Attending Physician Terese Neal DO Admitting Physician Terese Neal DO Consult Allergies and Home Medications Allergies Coded Allergies: Sulfa (Sulfonamide Antibiotics) (Verified Allergy, Unknown, 12/27/17) Home Medications Acetaminophen 650 Mg Tablet.er, 1,300 MG PO Q8H PRN for PAIN-MILD (1-4), (Reported) Apixaban 5 Mg Tablet, 5 MG PO BID, (Reported) Atorvastatin Calcium 20 Mg Tablet, 20 MG PO HS, (Reported) Calcium Carbonate 200 Mg Tab.chew, 500 MG PO TID PRN for INDIGESTION, (Reported) Carvedilol 6.25 Mg Tablet, 6.25 MG PO BID, (Reported) Citalopram Hydrobromide 20 Mg Tablet, 20 MG PO HS, (Reported) Diltiazem HCl 240 Mg Cap.er.24h, 240 MG PO DAILY, (Reported) Fluticasone/Salmeterol 12 Gm Hfa.aer.ad, 2 PUFF IH Q12H PRN for SHORTNESS OF BREATH, (Reported) Furosemide 40 Mg Tablet, 40 MG PO DAILY, (Reported) Ipratropium/Albuterol Sulfate 3 Ml Ampul.neb, 3 ML NEB QID PRN for SHORTNESS OF BREATH, (Reported) Lidocaine HCl 76.5 Gm Cream..g., 1 APPLIC TP Q4H PRN for HERPETIC PAIN, (Reported) APPLY TO LEFT TORSO RASH Loperamide HCl 2 Mg Capsule, 2 MG PO UD PRN for DIARRHEA, (Reported) Meclizine HCl 25 Mg Tablet, 50 MG PO Q6H PRN for DIZZINESS, (Reported) Melatonin 5 Mg Tablet, 5 MG PO HS PRN for RESTLESSNESS, (Reported) Montelukast Sodium 10 Mg Tablet, 10 MG PO DAILY, (Reported) Potassium Chloride 20 Meq Tablet.er, 20 MEQ PO DAILY, (Reported) Sennosides/Docusate Sodium 1 Each Tablet, 1 TAB PO BID, (Reported) [Instaflex] , 1 TAB PO DAILY, (Reported) Past Zpgitca-Szfheg-Bjfroq Hx Patient Social History Alcohol Use: Denies Use Recreational Drug Use: No Smoking Status: Former Smoker Former Smoker, Quit: Aug 27, 2004 Type Used: Cigarettes 2nd Hand Smoke Exposure: No Recent Foreign Travel: No Contact w/other who traveled: No Recent Hopitalizations: No Recent Infectious Disease Expo: No Immunizations Up To Date Tetanus Booster (TDap): Unknown Date of Pneumonia Vaccine: Sep 17, 2015 Date of Influenza Vaccine: Jul 19, 2019 Seasonal Allergies Seasonal Allergies: No Surgeries Yes (CARDIAC CATH X 3--STENTS X 4) Cardiac, Coronary Stent, Gallbladder, Tubal Ligation Respiratory Yes Chronic Bronchitis, COPD, Emphysema, Pneumonia Currently Using CPAP: No Currently Using BIPAP: No Cardiovascular Yes (CHF; CARDIAC CATHS X 3 WITH STENTS X 4) Atrial Fibrillation, Coronary Artery Disease, Heart Attack, High Cholesterol, Hypertension 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 No Dementia, Vertigo Reproductive System Sexually Transmitted Disease: No HIV/AIDS: 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 ) Loss of Vision: Denies Cancer No Psychosocial History of Psychiatric Problem: Yes Behavioral Health Disorders: Anxiety, Depression Integumentary History of Skin or Integumenta: No Blood Transfusions History of Blood Disorders: No Adverse Reaction to a Blood Tr: No Family Medical History Significant Family History: No Pertinent Family Hx Other Significan Family Hx: LONG HISTORY OF NON-COMPLIANCE Family Hx: Cardiovascular disease 19 MOTHER Diabetes mellitus 19 MOTHER Hypertension 19 MOTHER Review of Systems Constitutional: No diaphoresis, No fever EENTM: No ear discharge, No hearing loss, No ear pain, No blurred vision, No eye pain Respiratory: No cough, No hemoptysis, No orthopnea, No short of breath Cardiovascular: No chest pain, No palpitations Gastrointestinal: No abdominal pain, No melena, No nausea, No vomiting Genitourinary: No hematuria, No pain Musculoskeletal: back pain, joint pain (L hip Fx) Skin: No change in color, No dryness, No hx of skin cancer Physical Exam Vital Signs Vital Signs - First Documented 01/01/20 01/01/20 07:52 10:15 Temp 37.0 Pulse 115 Resp 16 B/P (MAP) 200/78 (118) Pulse Ox 90 O2 Delivery Room Air O2 Flow Rate 2.00 Capillary Refill : Less Than 3 Seconds Height, Weight, BMI Height: 5'4.00" Weight: 170lbs. 0oz. [id number]; 34.00 BMI Method:Stated General Appearance: No Apparent Distress, WD/WN HEENT: Pharynx Normal; No Scleral Icterus (L), No Scleral Icterus (R) Neck: Non Tender, Supple Respiratory: Chest Non Tender, No Accessory Muscle Use, No Respiratory Distress, Decreased Breath Sounds Cardiovascular: Regular Rate, Rhythm, No Gallop, No Murmur, Normal Peripheral Pulses Gastrointestinal: Non Tender, Soft Rectal: Deferred Back: Muscle Spasm Extremity: Normal Capillary Refill, No Pedal Edema Neurologic/Psychiatric: Alert, Normal Mood/Affect Skin: Normal Color, Warm/Dry Lymphatic: No Adenopathy (neck, supraclavicular) Assessment/Plan Assessment and Plan L femoral head hip fracture after fall Flu A and B Leukocytosis Hypokalemia Elevated BNP COPD CAD Hx of FL hx of Afib Dementia Arthritis HTN Ortho consult for hip fracture evaluation, possibly will do surgery tomorrow. Consult Cardiology Pain control - Fentanyl, doing well on it Tamiflu IVF, replace K Isolation CCB for HTN Clinical Quality Measures DVT/VTE Risk/Contraindication: Risk Factor Score Per Nursin RFS Level Per Nursing on Admit: 4+=Very High TERESE NEAL DO 01/01/20 1355: History of Present Illness History of Present Illness Reason for visit/HPI CC: Left femoral neck fracture HPI: This is a 74yoWF clinic patient of mine who has a h/o delirium with dementia, COPD O2 dependent, CHF, AF who presents to the ER after a fall yesterday and was helped to bed by family who ultimately came to ER due to increasing pain and found to have left femoral neck fracture. I saw the patient in the office Wednesday12/29/19 and she was in good health although frail. Patient has had a long course recently including multiple hospital stays along with IRF and failed requiring NH placement then went home with her on HH. Patient has not had complete resolution from the severe delirium she experienced recently. Influenza swab was positive and CXR negative for infiltrate and UTI noted on results. Dr Wasserman saw the patient and offered 3 percutaneous pins, no surgery and hemiarthroplasty. We will restart OAC. Allergies and Home Medications Allergies Coded Allergies: Sulfa (Sulfonamide Antibiotics) (Verified Allergy, Unknown, 12/27/17) Home Medications Acetaminophen 650 Mg Tablet.er, 1,300 MG PO Q8H PRN for PAIN-MILD (1-4), (Reported) Apixaban 5 Mg Tablet, 5 MG PO BID, (Reported) Atorvastatin Calcium 20 Mg Tablet, 20 MG PO HS, (Reported) Calcium Carbonate 200 Mg Tab.chew, 500 MG PO TID PRN for INDIGESTION, (Reported) Carvedilol 6.25 Mg Tablet, 6.25 MG PO BID, (Reported) Citalopram Hydrobromide 20 Mg Tablet, 20 MG PO HS, (Reported) Diltiazem HCl 240 Mg Cap.er.24h, 240 MG PO DAILY, (Reported) Fluticasone/Salmeterol 12 Gm Hfa.aer.ad, 2 PUFF IH Q12H PRN for SHORTNESS OF BREATH, (Reported) Furosemide 40 Mg Tablet, 40 MG PO DAILY, (Reported) Ipratropium/Albuterol Sulfate 3 Ml Ampul.neb, 3 ML NEB QID PRN for SHORTNESS OF BREATH, (Reported) Lidocaine HCl 76.5 Gm Cream..g., 1 APPLIC TP Q4H PRN for HERPETIC PAIN, (Reported) APPLY TO LEFT TORSO RASH Loperamide HCl 2 Mg Capsule, 2 MG PO UD PRN for DIARRHEA, (Reported) Meclizine HCl 25 Mg Tablet, 50 MG PO Q6H PRN for DIZZINESS, (Reported) Melatonin 5 Mg Tablet, 5 MG PO HS PRN for RESTLESSNESS, (Reported) Montelukast Sodium 10 Mg Tablet, 10 MG PO DAILY, (Reported) Potassium Chloride 20 Meq Tablet.er, 20 MEQ PO DAILY, (Reported) Sennosides/Docusate Sodium 1 Each Tablet, 1 TAB PO BID, (Reported) [Instaflex] , 1 TAB PO DAILY, (Reported) Patient Home Medication List Home Medication List Reviewed: Yes Past Wuebjfi-Ynhqjg-Uqgmdo Hx Patient Social History Marrital Status: Employed/Student: retired Smoking Status: Former Smoker Respiratory Chronic Bronchitis, COPD, Emphysema, Pneumonia Cardiovascular Atrial Fibrillation, Coronary Artery Disease, High Cholesterol, Hypertension 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 Dementia Genitourinary Bladder Infection Gastrointestinal Gastroesophageal Reflux Musculoskeletal Arthritis, Rheumatoid Arthritis, Chronic Back Pain Family Medical History Family Hx: Cardiovascular disease 19 MOTHER Diabetes mellitus 19 MOTHER Hypertension 19 MOTHER Review of Systems Constitutional: see HPI Musculoskeletal: joint pain (L hip Fx) Physical Exam General Appearance: Anxious, Chronically ill, Mild Distress Respiratory: Lungs Clear Cardiovascular: Regular Rate, Rhythm Extremity: Normal Range of Motion (except left leg) Neurologic/Psychiatric: Alert, No Motor/Sensory Deficits, Disoriented Assessment/Plan Assessment and Plan UTI Rocephin empirically Tamiflu for A and B Percutaneous pins to be placed tomorrow OAC Dr Kim appreciated Problems: (1) Closed left hip fracture Status: Acute Qualifiers: Qualified Codes: S72.002A - Fracture of unspecified part of neck of left femur, initial encounter for closed fracture (2) History of shingles (3) Dementia (4) Influenza Status: Acute (5) UTI (urinary tract infection) Status: Acute Qualifiers: Qualified Codes: N30.00 - Acute cystitis without hematuria (6) Debility Status: Acute (7) Memory loss (8) Delirium (9) Paroxysmal atrial fibrillation Status: Chronic (10) EMPHYSEMA, UNSPECIFIED Status: Chronic (11) COPD (chronic obstructive pulmonary disease) Status: Acute (12) CHF (congestive heart failure) Status: Acute Admission Diagnosis Admission Status: Inpatient Order (span 2 midnights) Reason for Inpatient Admission: Left hip fracture Supervisory-Addendum Brief Verification & Attestation Participated in pt care: history, MDM, physical Personally performed: exam, history, MDM, supervision of care Care discussed with: Medical Student Procedures: n/a Results interpretation: Verified all documentation Verification and Attestation of Medical Student E/M Service A medical student performed and documented this service in my presence. I reviewed and verified all information documented by the medical student and made modifications to such information, when appropriate. I personally performed the physical exam and medical decision making. Terese Neal, Jan 01, 2020,19:34 B[facility]IGNO PEREZ [facility] Jan 01, 2020 13:24 TERESE NEAL DO Jan 01, 2020 13:55
[2020-01-01] MEDS ORDERED: ACET-2840 PO (13:58)
[2020-01-01] MEDS ORDERED: CARV6.252 PO (13:58)
[2020-01-01] MEDS ORDERED: LIDO76.5 TP (13:58)
[2020-01-01] MEDS ORDERED: DILT240C90 PO (13:59)
--- NOTE | 2020-01-01 14:52 | NUR ---
SPOKE WITH THE PT AND HER FAMILY, WENT THRU THE EXT MED HISTORY, AND GOT A DISCHARGE FORM FROM [facility] TO COMPLETE THE MED REC FAMILY TELLS ME SHE WAS OUT OF THE HOME FOR OVER 2 MONTHS BETWEEN HER STAY HERE AND IN [facility]. THE DAUGHTER HAD THE LIST OF MEDS THAT WERE TO BE CONTINUED WHEN SHE LEFT THE [facility] MOST HER MEDS ARE PAST DUE BUT THE [facility] WAS GIVING HER MEDS FROM THERE PHARMACY WHILE SHE WAS THERE. MONTELUKAST AND ADVAIR WERE NEVER GIVEN FROM [facility] BUT IT LOOKS IF SHE HAD SOME MEDS SHE TOOK HOME FROM THE [facility]. OTC MEDS: INSTAFLEX TYLENOL TUMS ASPERCREME LOPERAMIDE MECLIZINE MELATONIN SENNA S
[2020-01-01] MEDS ORDERED: RT-ALBUTEROL/IPRATROPIUM 3 ML (DUONEB) VIAL INH PRN (16:00)
--- NOTE | 2020-01-01 17:45 | Consultation-Cardiology ---
HPI-Cardiology Cardiology Consultation Date of Consultation 01/01/20 Date of Admission Time Seen by Provider: 17:38 Indication: Coronary artery disease HPI 74-year-old lady with extensive cardiac history including coronary artery disease, atrial fibrillation, recent hospitalization for influenza. Sustained a fall resulted in hip fracture. We are called for preoperative cardiac evaluation, she denied any chest pain or shortness of breath. No palpitation. No syncope or near syncopal episodes. No claudications. Home Medications & Allergies Allergies: Coded Allergies: Sulfa (Sulfonamide Antibiotics) (Verified Allergy, Unknown, 12/27/17) Home Medication List Reviewed: Yes [id number] Hx Patient Social History Marital Status: Employed/Student: retired Alcohol Use: Denies Use Recreational Drug Use: No Smoking Status: Former Smoker Former smoker/When Quit: Oct 11, 2004 Type Used: Cigarettes 2nd Hand Smoke Exposure: No Recent Foreign Travel: No Recent Infectious Disease Expo: No Recent Hopitalizations: No Immunizations Up To Date Tetanus Booster (TDap): Unknown Date of Pneumonia Vaccine: Sep 17, 2015 Date of Influenza Vaccine: Jul 19, 2019 Past Medical History Discussed below Family Medical History Significant Family History: No Pertinent Family Hx Family History: Cardiovascular disease 19 MOTHER Diabetes mellitus 19 MOTHER Hypertension 19 MOTHER Review of Systems-General Review of Systems Constitutional: see HPI; No diaphoresis, No fever; weakness EENTM: see HPI; No ear discharge, No hearing loss, No ear pain, No blurred vision, No eye pain Respiratory: see HPI; No cough, No dyspnea on exertion, No hemoptysis, No orthopnea, No phlegm, No short of breath, No stridor, No wheezing, No other Cardiovascular: see HPI; No chest pain, No edema, No Hx of Intervention, No palpitations, No syncope, No vascular heart diseas, No other Gastrointestinal: no symptoms reported, see HPI; No abdominal pain, No melena, No nausea, No vomiting Genitourinary: No hematuria, No pain Musculoskeletal: back pain, joint pain (L hip Fx) Skin: see HPI; No change in color, No dryness, No hx of skin cancer Psychiatric/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: See HPI; Denies Anxiety, Denies Depressed Reviewed Test Results Reviewed Test Results Lab Laboratory Tests Test 01/01/20 08:08 01/01/20 08:45 01/01/20 09:35 Range/Units White Blood Count 17.6 H 4.3-11.0 10^3/uL Red Blood Count 5.11 4.35-5.85 10^6/uL Hemoglobin 15.1 11.5-16.0 G/DL Hematocrit 45 35-52 % Mean Corpuscular Volume 88 80-99 FL Mean Corpuscular Hemoglobin 30 25-34 PG Mean Corpuscular Hemoglobin Concent 34 32-36 G/DL Red Cell Distribution Width 15.1 H 10.0-14.5 % Platelet Count 313 130-400 10^3/uL Mean Platelet Volume 10.2 7.4-10.4 FL Neutrophils (%) (Auto) 88 H 42-75 % Lymphocytes (%) (Auto) 5 L 12-44 % Monocytes (%) (Auto) 4 0-12 % Eosinophils (%) (Auto) 2 0-10 % Basophils (%) (Auto) 0 0-10 % Neutrophils # (Auto) 15.5 H 1.8-7.8 X 10^3 Lymphocytes # (Auto) 1.0 1.0-4.0 X 10^3 Monocytes # (Auto) 0.7 0.0-1.0 X 10^3 Eosinophils # (Auto) 0.4 H 0.0-0.3 10^3/uL Basophils # (Auto) 0.0 0.0-0.1 10^3/uL Neutrophils % (Manual) 86 % Lymphocytes % (Manual) 5 % Monocytes % (Manual) 6 % Eosinophils % (Manual) 3 % Band Neutrophils % Blood Morphology Comment NORMAL Prothrombin Time 14.6 12.2-14.7 SEC INR Comment 1.1 0.8-1.4 Activated Partial Thromboplast Time 29 24-35 SEC Sodium Level 139 135-145 MMOL/L Potassium Level 3.3 L 3.6-5.0 MMOL/L Chloride Level 101 98-107 MMOL/L Carbon Dioxide Level 25 21-32 MMOL/L Anion Gap 13 5-14 MMOL/L Blood Urea Nitrogen 9 7-18 MG/DL Creatinine 0.76 0.60-1.30 MG/DL Estimat Glomerular Filtration Rate > 60 BUN/Creatinine Ratio 12 Glucose Level 140 H 70-105 MG/DL Calcium Level 9.4 8.5-10.1 MG/DL Corrected Calcium 9.6 8.5-10.1 MG/DL Total Bilirubin 2.4 H 0.1-1.0 MG/DL Aspartate Amino Transf (AST/SGOT) 23 5-34 U/L Alanine Aminotransferase (ALT/SGPT) 17 0-55 U/L Alkaline Phosphatase 127 40-136 U/L Total Creatine Kinase 27 L 29-168 U/L B-Type Natriuretic Peptide 819.2 H <100.0 PG/ML Total Protein 7.3 6.4-8.2 GM/DL Albumin 3.8 3.2-4.5 GM/DL Urine Color YELLOW Urine Clarity CLEAR Urine pH 7.0 5-9 Urine Specific [place] 1.025 H 1.016-1.022 Urine Protein 3+ H NEGATIVE Urine Glucose (UA) NEGATIVE NEGATIVE Urine Ketones NEGATIVE NEGATIVE Urine Nitrite NEGATIVE NEGATIVE Urine Bilirubin NEGATIVE NEGATIVE Urine Urobilinogen 0.2 < = 1.0 MG/DL Urine Leukocyte Esterase NEGATIVE NEGATIVE Urine RBC (Auto) TRACE-I NEGATIVE Urine RBC RARE /HPF Urine WBC 10-25 H /HPF Urine Squamous Epithelial Cells 0-2 /HPF Urine Crystals NONE /LPF Urine Bacteria FEW H /HPF Urine Casts NONE /LPF Urine Mucus NEGATIVE /LPF Urine Culture Indicated YES Lactic Acid Level 1.51 0.50-2.00 MMOL/L Physical Exam Physical Exam Vital Signs Vital Signs - First Documented 01/01/20 01/01/20 01/01/20 07:52 10:15 12:52 Temp 37.0 Pulse 115 Resp 16 B/P (MAP) 200/78 (118) Pulse Ox 90 O2 Delivery Room Air O2 Flow Rate 2.00 FiO2 21 Capillary Refill : Less Than 3 SecondsLess Than 3 Seconds Height, Weight, BMI Height: 5'4.00" Weight: 170lbs. 0oz. 77.992538zz; 29.72 BMI Method:Stated General Appearance: No Apparent Distress, WD/WN HEENT: Pharynx Normal; No Scleral Icterus (L), No Scleral Icterus (R) Neck: Non Tender, Supple Respiratory: Chest Non Tender, No Accessory Muscle Use, No Respiratory Distres s, Decreased Breath Sounds Cardiovascular: No Gallop, Normal Peripheral Pulses, Systolic Murmur, Irregular ly Irregular Gastrointestinal: Non Tender, Soft Rectal: Deferred Back: Muscle Spasm Extremity: Normal Capillary Refill, No Pedal Edema Neurologic/Psychiatric: Alert, Normal Mood/Affect Skin: Normal Color, Warm/Dry Lymphatic: No Adenopathy (neck, supraclavicular) A/P-Cardiology Admission Diagnosis Hip fracture Coronary artery disease Chronic atrial fibrillation Hypertension Assessment/Plan Hip fracture, for possible surgery. Preoperative cardiac evaluation, patient is considered at intermediate to high risk for perioperative cardiovascular c omplication, has been maintained on Eliquis and Plavix which will be held at this point. Decision regarding the surgery, risks versus benefit is deferred to the surgeon Atrial fibrillation, chronic, rate controlled. Maintained on oral anticoag ulation. Continue to monitor. Start home medications except for Eliquis Coronary artery disease, history of multiple intervention a total of 4 stents, last cardiac catheterization was done by Dr. Hamilton more than 40 years ago, she was offered another cardiac catheterization, has been refusing cardiac workup. Congestive heart failure, chronic left ventricular systolic dysfunction, ejection fraction 40-45 percent per echocardiogram done in September 2019, has PA pressure of 45-50 mmHg, mitral and tricuspid regurgitation. Chronic shortness of breath multifactorial. Continue to monitor Hypertension, monitor blood pressure Hyperlipidemia, managed by primary care physician Diabetes mellitus, followed and managed by primary care physician History of tobaccoism, stopped smoking in 2003. Clinical Quality Measures DVT/VTE Risk/Contraindication: Risk Factor Score Per Nursin RFS Level Per Nursing on Admit: 4+=Very High ALEJANDRINA CRAWFORD MD Jan 01, 2020 17:45
--- NOTE | 2020-01-01 18:17 | NUR ---
Report received from Miri BARON, I agree with previous RN's assessment and will assume care of patient at this time.
[2020-01-01] MEDS: RT-ALBUTEROL/IPRATROPIUM 3 ML (DUONEB) VIAL INH SCH ×2 (18:40→22:12)
--- NOTE | 2020-01-01 18:53 | NUR ---
1740 REPORT GIVEN TO UBALDO BARON, PT TRANSFERRED TO MEDICAL FLOOR ALL PERSONAL BELONGINGS SENT WITH PT.
[2020-01-01] MEDS ORDERED: MECLIZINE 25 MG (ANTIVERT) TAB PO PRN (19:30)
[2020-01-01] MEDS ORDERED: CALCIUM CARBONATE 500 MG (TUMS) TAB.CHEW PO PRN (19:30)
[2020-01-01] MEDS ORDERED: LIDOCAINE HCL TP PRN (19:30)
[2020-01-01] MEDS ORDERED: RT-ADVAIR HFA 115/21 MCG PER PUFF IH PRN (19:30)
[2020-01-01] MEDS ORDERED: LOPERAMIDE 2 MG (IMODIUM) TABLET PO PRN (19:30)
[2020-01-01] MEDS ORDERED: ACETAMINOPHEN 500 MG TAB (TYLENOL) PO PRN (19:45)
--- NOTE | 2020-01-01 20:00 | NUR ---
DR. BONILLA INFORMED PT ON ELIQUIS. ORDER TO GIVE HS DOSE AND HOLD AM DOSE.
[2020-01-01] MEDS: OSELTAMIVIR 30 MG (TAMIFLU) CAPSULE PO SCH (20:58)
[2020-01-01] MEDS: APIXABAN 5 MG (ELIQUIS) TABLET PO SCH (20:58)
[2020-01-01] MEDS: MONTELUKAST 10 MG (SINGULAIR) TAB PO SCH (20:58)
[2020-01-01] MEDS: CARVEDILOL 6.25 MG (COREG) TAB PO SCH (20:58)
[2020-01-01] MEDS: SENNA W/DOCUSATE (SENOKOT S) TABLET PO SCH (20:58)
[2020-01-01] MEDS ORDERED: APIXABAN 5 MG (ELIQUIS) TABLET PO SCH (21:00)
[2020-01-01] MEDS ORDERED: MELATONIN 3 MG TABLET PO PRN (21:00)
[2020-01-02] VITALS (14 sets, daily range): BP systolic 92–155; BP diastolic 57–90
[2020-01-02] MEDS: RT-ALBUTEROL/IPRATROPIUM 3 ML (DUONEB) VIAL INH SCH ×7 (01:24→21:56)
[2020-01-02] MEDS: 1/2 NS W/KCL 20 MEQ/L 1,000 ML IV SCH ×3 (01:53→22:21)
[2020-01-02] MEDS: APIXABAN 5 MG (ELIQUIS) TABLET PO SCH ×2 (04:58→22:13)
[2020-01-02] MEDS: KCL 20 MEQ TAB (K-DUR) PO SCH (05:01)
[2020-01-02 06:44] LABS: BASOPHILS % (AUTO) 0 % (0-10); EOSINOPHILS # (AUTO) 0.5 10^3/uL (0.0-0.3); EOSINOPHILS % (AUTO) 4 % (0-10); HEMATOCRIT 38 % (35-52); HEMOGLOBIN 12.3 G/DL (11.5-16.0); LYMPHOCYTES # (AUTO) 1.5 X 10^3 (1.0-4.0); LYMPHOCYTES % (AUTO) 11 % (12-44); MEAN CORPUSCULAR HEMOGLOBIN 29 PG (25-34); MEAN CORPUSCULAR HGB CONC 33 G/DL (32-36); MEAN CORPUSCULAR VOLUME 91 FL (80-99); MEAN PLATELET VOLUME 10.4 FL (7.4-10.4); MONOCYTES # (AUTO) 0.9 X 10^3 (0.0-1.0); MONOCYTES % (AUTO) 7 % (0-12); NEUTROPHILS # (AUTO) 10.8 X 10^3 (1.8-7.8); NEUTROPHILS % (AUTO) 78 % (42-75); PLATELET COUNT 290 10^3/uL (130-400); RED CELL DISTRIBUTION WIDTH 15.4 % (10.0-14.5); WHITE BLOOD COUNT 13.7 10^3/uL (4.3-11.0)
[2020-01-02 07:05] LABS: BUN/CREATININE RATIO 19; CALCIUM 8.6 MG/DL (8.5-10.1); CARBON DIOXIDE 22 MMOL/L (21-32); CHLORIDE 104 MMOL/L (98-107); CREATININE SERUM 0.72 MG/DL (0.60-1.30); GFR ESTIMATED > 60; GLUCOSE 105 MG/DL (70-105); POTASSIUM 3.6 MMOL/L (3.6-5.0); SODIUM 137 MMOL/L (135-145)
--- NOTE | 2020-01-02 08:18 | Physician Query Clarification ---
PQ-Uncertain Diagnosis Admission/Discharge Admission Date: Jan 01, 2020 at 09:52 Discharge Date: The medical record reflects the following clinical scenario: History/Risk Factors: Subcapital left hip fracture Acute cystitis Influenza A and B Clinical Findings:T 37.0, P 115, Resp 16, BP 200/78, WBC 17.6, no blood cultures, lactic acid 1.51. Treatment:IV Rocephin Question: Is Sepsis a clinically valid diagnosis? Sepsis was documented in the ED impression by Dr. Schwartz with no further docum entation in the medical record. Please document a response in Progress Note or Discharge Summary. 1. Yes, clinically valid, condition resolved. 2. No, condition ruled out. 3. Other, with explanation of clinical findings. 4. Undetermined, no explanation for clinical findings. PHYSICIAN RESPONSE Diagnosis clinically valid: No, conditon ruled out Please remember a lack of response to the above will prompt a phone page by CDI/Coding staff. In responding to this query, please exercise your independent professional judgment. The purpose of this communication is to more accurately reflect the complexity of your patients condition. The fact that a question is asked does not imply that any particular answer is desired or expected. Thank you for your timely response to this clarification. Requestors name: Reba Jain [facility] Phone # ext [phone] or [phone] THIS PHYSICIAN QUERY FORM IS A PERMANENT PART OF THE MEDICAL RECORD REBA JAIN Jan 02, 2020 08:18 JEROME NEAL DO Jan 02, 2020 20:40
--- NOTE | 2020-01-02 08:26 | Physician Query Clarification ---
PQ-Further Specificity Admission/Discharge Admission Date: Jan 01, 2020 at 09:52 Discharge Date: The medical record reflects the following clinical scenario: History/Risk Factors: Hypertension Paroxysmal atrial fibrillation Clinical Findings: BNP 819.2 Previous echo in Sep showed EF 40-45%. Treatment: Furosemide [address] Kim's consult listed chronic systolic congestive heart failure. Your H&P assessment and plan listed congestive heart failure-acute. Question: Can you further specify Congestive Heart Failure per the clinical indicators above? Please document a response in the Progress Notes or Discharge Summary. 1. Acute and chronic systolic congestive heart failure. 2. Chronic systolic congestive heart failure. 3. Other, with explanation of the clinical findings. 4. Clinically undetermined, no explanation for the clinical findings. PHYSICIAN RESPONSE Can you specify per above: 2 Explanation/Clinical Findings Please read my assessment and plan in the consultation report Please remember a lack of response to the above will prompt a phone page by CDI/Coding staff. In responding to this query, please exercise your independent professional judgment. The purpose of this communication is to more accurately reflect the complexity of your patients condition. The fact that a question is asked does not imply that any particular answer is desired or expected. Thank you for your timely response to this clarification. Requestors name: Reba Jain [facility] [place] Phone # ext [phone] or [phone] THIS PHYSICIAN QUERY FORM IS A PERMANENT PART OF THE MEDICAL RECORD REBA JAIN Jan 02, 2020 08:26 ALEJANDRINA KIM MD Jan 02, 2020 09:04 JEROME NEAL DO Jan 02, 2020 20:41
[2020-01-02] MEDS: OSELTAMIVIR 30 MG (TAMIFLU) CAPSULE PO SCH ×2 (09:08→22:13)
[2020-01-02] MEDS: CARVEDILOL 6.25 MG (COREG) TAB PO SCH ×2 (09:09→22:13)
[2020-01-02] MEDS: SENNA W/DOCUSATE (SENOKOT S) TABLET PO SCH ×2 (09:09→22:13)
[2020-01-02] MEDS: FUROSEMIDE 40 MG (LASIX) TAB PO SCH (09:09)
--- NOTE | 2020-01-02 09:10 | NUR ---
NOTE THAT DR BONILLA WAS CALLED AND ASKED IF PT COULD HAD AM MEDS WITH SIP OF WATER HE OKED GIVING THEM
[2020-01-02] MEDS: AMPICILLIN FOR IV USE 1,000 MG in WATER (STERILE) FOR INJECTION 7.4 ML IV SCH ×3 (09:19→21:00)
[2020-01-02] MEDS ORDERED: cefTRIAXone FOR IV USE 1,000 MG in WATER (STERILE) FOR INJECTION 10 ML IV SCH (09:30)
--- NOTE | 2020-01-02 10:07 | Cardiology Progress Note ---
Subjective Date Seen by Provider: Jan 02, 2020 Time Seen by Provider: 10:06 Subjective/Events-last exam Patient is laying down in bed, no new complaint. No chest pain Review of Systems General: No Chills, No Night Sweats, No Fatigue, No Malaise, No Appetite, No Other HEENT: No Head Aches, No Visual Changes, No Eye Pain, No Ear Pain, No Dysphasia, No Sinus Congestion, No Post Nasal Drip, No Sore Throat, No Other Pulmonary: No Dyspnea, No Cough, No Pleuritic Chest Pain, No Other Cardiovascular: No: Chest Pain, Palpitations, Orthopnea, Paroxysmal Noc. Dyspnea, Edema, Lt Headedness, Other Focused Exam Lactate Level 01/01/20 09:35: Lactic Acid Level 1.51 Objective-Cardiology Exam Last Set of Vital Signs Vital Signs 01/01/20 01/02/20 12:52 08:00 Temp 36.2 Pulse 95 Resp 16 B/P (MAP) 132/85 (101) Pulse Ox 99 O2 Delivery Nasal Cannula O2 Flow Rate 3.00 FiO2 21 Capillary Refill : Less Than 3 SecondsLess Than 3 Seconds I&O Intake and Output 01/02/20 00:00 Intake Total 910 ml Output Total 325 ml Balance 585 ml Intake Oral 400 ml IV Total 510 ml Output Urine Total 325 ml Daily Weight Change No General: Alert, Oriented X3, Cooperative HEENT: Atraumatic, PERRLA Neck: Supple, No JVD, No Thyromegaly Lungs: Clear to Auscultation, Normal Air Movement Heart: Normal S1, Normal S2, No Murmurs, Other (atrial fibrillation) Abdomen: Normal Bowel Sounds, Soft, No Tenderness, No Hepatosplenomegaly, No Masses Extremities: No Clubbing, No Cyanosis, No Edema, Normal Pulses, No Tenderness/Swelling Skin: No Rashes, No Breakdown, No Significant Lesion Neuro: Normal Speech, Normal Tone, Sensation Intact Psych/Mental Status: Mental Status NL, Mood NL Results Lab Laboratory Tests 01/02/20 06:30 A/P-Cardiology Admission Diagnosis Hip fracture Coronary artery disease Chronic atrial fibrillation Hypertension Assessment/Plan Hip fracture, for possible surgery. Preoperative cardiac evaluation, patient is considered at intermediate to high risk for perioperative cardiovascular complication, has been maintained on Eliquis and Plavix which will be held at this point. Decision regarding the surgery, risks versus benefit is deferred to the surgeon Atrial fibrillation, chronic, rate controlled. Maintained on oral anticoagulation. Continue to monitor. Coronary artery disease, history of multiple intervention a total of 4 stents, last cardiac catheterization was done by Dr. Hamilton more than 40 years ago, she was offered another cardiac catheterization, has been refusing cardiac workup. Congestive heart failure, chronic left ventricular systolic dysfunction, ejection fraction 40-45 percent per echocardiogram done in September 2019, has PA pressure of 45-50 mmHg, mitral and tricuspid regurgitation. Chronic shortness of breath multifactorial. Continue to monitor Hypertension, monitor blood pressure Hyperlipidemia, managed by primary care physician Diabetes mellitus, followed and managed by primary care physician History of tobaccoism, stopped smoking in 2003. Clinical Quality Measures DVT/VTE Risk/Contraindication: Risk Factor Score Per Nursin RFS Level Per Nursing on Admit: 4+=Very High ALEJANDRINA CRAWFORD MD Jan 02, 2020 10:07 am
--- NOTE | 2020-01-02 11:57 | Occ Therapy Progress Note ---
Therapy Progress Note Discussed pt plan of care with RN who states pt is scheduled to have surgery today to repair hip fracture. Will hold therapy at this time and initiate evaluation tomorrow post surgery. BROOKE BUSTOS OT Jan 02, 2020 11:57
[2020-01-02] MEDS ORDERED: LIDOCAINE PF 2% 5 ML (XYLOCAINE) VIAL ONE (12:41)
[2020-01-02] MEDS ORDERED: ONDANSETRON 4 MG/2 ML (SDV) Z0FRAN ONE (12:41)
[2020-01-02] MEDS ORDERED: SEVOFLURANE (ULTANE) 15 ML INHAL SOLN ONE ×4 (12:41→14:07)
[2020-01-02] MEDS ORDERED: fentaNYL INJECTION 100 MCG/2 ML AMP ONE (12:41)
[2020-01-02] MEDS ORDERED: DEXAMETHASONE 10 MG/ML (DECADRON) 1 ML VIAL ONE (12:41)
[2020-01-02] MEDS ORDERED: proPOfol 200 MG/20 ML (DIPRIVAN) VIAL IV ONE (12:41)
[2020-01-02] MEDS ORDERED: MIDAZOLAM 2 MG/2 ML (VERSED) VIAL ONE (12:42)
[2020-01-02] MEDS ORDERED: ROCURONIUM 10 MG/ML 5 ML SYRINGE IV ONE (12:44)
[2020-01-02] MEDS ORDERED: ceFAZolin 2 GM IV Premixed 50 ML IV ONE (13:00)
[2020-01-02] MEDS ORDERED: LACTATED RINGERS 1,000 ML IV PRN (13:09)
[2020-01-02] MEDS ORDERED: PHENYLEPHRINE 100 MCG/ML 10 ML (ANESTHESIA) SYR ONE (13:30)
[2020-01-02] MEDS ORDERED: NEO/POLY/BACI (NEOSPORIN) OPHTH OINT 3.5 GM ONE (14:00)
[2020-01-02] MEDS ORDERED: NEO/POLY/BAC (NEOSPORIN) OINT 15 GM TUBE ONE (14:01)
[2020-01-02] MEDS ORDERED: morphine INJ 10 MG/ML 1ML (SYR OR VIAL) IVP ONE (14:30)
[2020-01-02] MEDS ORDERED: ONDANSETRON 4 MG/2 ML (SDV) Z0FRAN IVP PRN (14:30)
[2020-01-02] MEDS ORDERED: HYDROmorphone 2 MG/ML VIAL (DILAUDID) IV ONE (14:30)
--- NOTE | 2020-01-02 14:58 | Diagnostic Imaging Report ---
EXAMINATION: Fluoroscopy. INDICATION: Hip pain. FINDINGS: Fluoroscopic assistance was provided for Dr. Wasserman. 87.9 seconds of fluoroscopy time was utilized. Three spot films of the left hip were received. There are three orthopedic fixation screws obliquely traversing the subcapital fracture of the left femur seen on the exam performed on 01/01/2020. The orthopedic hardware appears to be in good position and the main fracture fragments are in near anatomic alignment. IMPRESSION: Fluoroscopic assistance was provided for Dr. Wasserman. Dictated by: Dictated on workstation # [id number]
--- NOTE | 2020-01-02 15:17 | Progress Note-Pre Operative ---
Pre-Operative Progress Note H&P Reviewed The H&P was reviewed, patient examined and no changes noted. Date Seen by Provider: Jan 02, 2020 Time Seen by Provider: 12:00 Date H&P Reviewed: Jan 02, 2020 Time H&P Reviewed: 11:45 Pre-Operative Diagnosis: impacted subcapital fracture left hip.Leg was marked. LIBRADO BONILLA MD Jan 02, 2020 15:17
--- NOTE | 2020-01-02 15:23 | Operative Report - Ortho ---
Operative Report Surgeon (s)/Electronic Funds Transfer Coordinator (s) Surgeon LIBRADO BONILLA MD Electronic Funds Transfer Coordinator n/a Pre-Operative Diagnosis impacted subcapital fracture left hip Post-Operative Diagnosis same Operative Report Date of Procedure: Jan 02, 2020 Name of Procedure Performed: In situ cannulated screw fixation of impacted subcapital fracture left hip Description & Findings The patient was seen preoperatively in her hospital room. The left leg was marked. The procedure risk, cases were discussed with the patient and her . They understand that if the head is displaced and not acceptable that instead of in situ screw fixation we will proceed with a cemented bipolar hemiarthroplasty. The patient was taken to the operating room in her hospital bed. After general anesthesia she was transferred to the fracture table. She was positioned on the fracture table with perineal post, the right leg in the well leg gupta and the left foot and ankle in the traction boot. No traction was applied to the left lower extremity. The leg was placed in slight internal rotation. At this point fluoroscopy was used to visualize the hip and on the AP view the head was noted be impacted and on the lateral view there was no posterior or anterior displacement. At this point the left hip and thigh were prepped and draped in usual sterile manner. A guidepin was placed percutaneously through the skin to the lateral femur. Once the position was identified with fluoroscopy the pin was placed in the anterior superior aspect of the neck and head. The second guidepin was placed through a small incision around the first pin. This was placed in the posterior superior aspect of the neck and head. The third pin was placed in the central aspect of the neck and head inferior. These were placed to the subchondral bone and measured. The cortex was opened with the cortical drill and then a 95 mm screw was placed anterior superior and posterior superior. These were 7.3 partially-threaded cannulated screws. The inferior screw was 105 mm. Images used to visualize the position of the screws after insertion. All 3 were within the head and within a few millimeters of the articular surface. Purchase was noted with all 3. AP and lateral views were obtained with maximum internal and external rotation and all 3 screws were within the head. Final x- rays were obtained. The guidepins were removed. The wound was irrigated with normal saline. Subcutaneous sutures for closure with 2-0 Vicryl. Skin was clos ed with trudy. Wound was dressed with triple antibiotic ointment, Adaptic, 4 x 4's and ABDs. These were taped in position. The patient was then taken out of the traction boot and the right leg out of the well leg gupta and transferred to her hospital bed. She was transferred to recovery room in good condition. She tolerated the procedure well. Blood lossless than 15 mL Replacementnone Drainsnone Complicationsnone n/a Anesthesia Type Gen. Estimated Blood Loss minimal Specimen(s) collected/removed none LIBRADO BONILLA MD Jan 02, 2020 15:23
--- NOTE | 2020-01-02 15:30 | NUR ---
PT BACK TO FLOOR FROM RECOVERY -- REPORT FROM WAITER/WAITRESS FIRST CLASS -- DSG TO L HIP D/I , ICE TO SITE -- PT DENIES PAIN OR DISCOMFORT
--- NOTE | 2020-01-02 17:53 | NUR ---
CM/SS: [facility] Lindsay Vieyra RN called [phone] due to pt being on their services, to verify that she is a pt at the hospital and that she is admitted with a left hip fracture. This information is verified. They will put pt on hold and can resume care when pt is released from hospital.
--- NOTE | 2020-01-02 19:52 | Progress Note ---
Subjective Date Seen by a Provider: Jan 02, 2020 Time Seen by a Provider: 09:30 Subjective/Events-last exam Patient ready for surgery to get it done and over with Pins will be placed by Dr. Wasserman Pain is well controlled as long as she does not move Arana catheter maintained Lungs appear to be stable No A. fib with RVR noted Appreciate cardiology consultation Monitoring closely Review of Systems General: Fatigue Musculoskeletal: leg pain 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: Confusion Focused Exam Lactate Level 01/01/20 09:35: Lactic Acid Level 1.51 Objective Exam Last Set of Vital Signs Vital Signs Date Time Temp Pulse Resp B/P (MAP) Pulse Ox O2 Delivery O2 Flow Rate FiO2 01/02/20 19:00 98 01/02/20 19:00 98 Nasal Cannula 2.00 01/02/20 15:52 35.6 15 136/77 (96) 01/01/20 12:52 21 Capillary Refill : Less Than 3 SecondsLess Than 3 Seconds I&O Intake and Output 01/02/20 00:00 Intake Total 910 ml Output Total 325 ml Balance 585 ml Intake Oral 400 ml IV Total 510 ml Output Urine Total 325 ml Daily Weight Change No General: Alert, Oriented X3, Cooperative, No Acute Distress Lungs: Clear to Auscultation Heart: Regular Rate Psych/Mental Status: Mental Status NL Results Lab Laboratory Tests 01/02/20 06:30: White Blood Count 13.7H, Red Blood Count 4.18L, Hemoglobin 12.3, Hematocrit 38, Mean Corpuscular Volume 91, Mean Corpuscular Hemoglobin 29, Mean Corpuscular Hemoglobin Concent 33, Red Cell Distribution Width 15.4H, Platelet Count 290, Mean Platelet Volume 10.4, Neutrophils (%) (Auto) 78H, Lymphocytes (%) (Auto) 11L, Monocytes (%) (Auto) 7, Eosinophils (%) (Auto) 4, Basophils (%) (Auto) 0, Neutrophils # (Auto) 10.8H, Lymphocytes # (Auto) 1.5, Monocytes # (Auto) 0.9, Eosinophils # (Auto) 0.5H, Basophils # (Auto) 0.0, Sodium Level 137, Potassium Level 3.6, Chloride Level 104, Carbon Dioxide Level 22, Anion Gap 11, Blood Urea Nitrogen 14, Creatinine 0.72, Estimat Glomerular Filtration Rate > 60, BUN/Creatinine Ratio 19, Glucose Level 105, Calcium Level 8.6 Microbiology 3/16/20 Blood Culture - Preliminary, Resulted No growth 01/01/20 Urine Culture - Preliminary, Resulted Enterococcus faecalis 01/01/20 Influenza Types A,B Antigen (KENA) - Final, Complete Assessment/Plan Assessment/Plan Assess & Plan/Chief Complaint Assessment: L femoral head hip fracture after fall going for repair today 01/02/20 Flu A and B acute Leukocytosis Hypokalemia Elevated BNP COPD CAD Hx of DE hx of Afib Dementia Arthritis HTN UTI Arana in place Ortho consult appreciated Consult Cardiology is appreciated Pain control Tamiflu IVF, replace K Isolation CCB for HTN Diagnosis/Problems Diagnosis/Problems (1) Closed left hip fracture Status: Acute Qualifiers: Qualified Codes: S72.002A - Fracture of unspecified part of neck of left femur, initial encounter for closed fracture (2) History of shingles (3) Dementia (4) Influenza Status: Acute (5) UTI (urinary tract infection) Status: Acute Qualifiers: Qualified Codes: N30.00 - Acute cystitis without hematuria (6) Debility Status: Acute (7) Memory loss (8) Delirium (9) Paroxysmal atrial fibrillation Status: Chronic (10) EMPHYSEMA, UNSPECIFIED Status: Chronic (11) COPD (chronic obstructive pulmonary disease) Status: Acute (12) CHF (congestive heart failure) Status: Acute Clinical Quality Measures Admission Status Admission Dx UTI Rocephin empirically Tamiflu for A and B Percutaneous pins to be placed tomorrow OAC Dr Kim appreciated DVT/VTE Risk/Contraindication: Risk Factor Score Per Nursin RFS Level Per Nursing on Admit: 4+=Very High JEROME NEAL DO Jan 02, 2020 19:52
[2020-01-02] MEDS: ceFAZolin 2 GM IV Premixed 50 ML IV SCH (22:10)
[2020-01-02] MEDS: MONTELUKAST 10 MG (SINGULAIR) TAB PO SCH (22:13)
[2020-01-03 00:15] VITALS: BP 151/81
[2020-01-03] MEDS: RT-ALBUTEROL/IPRATROPIUM 3 ML (DUONEB) VIAL INH SCH ×6 (02:15→22:59)
[2020-01-03] MEDS: AMPICILLIN FOR IV USE 1,000 MG in WATER (STERILE) FOR INJECTION 7.4 ML IV SCH ×4 (02:55→20:53)
[2020-01-03 03:36] VITALS: BP 178/88
[2020-01-03] MEDS: HYDROcodone/APAP 5 MG/325 MG (LORTAB) TAB PO PRN (03:39)
[2020-01-03 05:07] LABS: BASOPHILS % (AUTO) 0 % (0-10); EOSINOPHILS % (AUTO) 0 % (0-10); HEMATOCRIT 39 % (35-52); HEMOGLOBIN 12.6 G/DL (11.5-16.0); LYMPHOCYTES # (AUTO) 0.6 X 10^3 (1.0-4.0); LYMPHOCYTES % (AUTO) 4 % (12-44); MEAN CORPUSCULAR HEMOGLOBIN 29 PG (25-34); MEAN CORPUSCULAR HGB CONC 32 G/DL (32-36); MEAN CORPUSCULAR VOLUME 91 FL (80-99); MEAN PLATELET VOLUME 10.3 FL (7.4-10.4); MONOCYTES # (AUTO) 0.6 X 10^3 (0.0-1.0); MONOCYTES % (AUTO) 5 % (0-12); NEUTROPHILS # (AUTO) 12.1 X 10^3 (1.8-7.8); NEUTROPHILS % (AUTO) 91 % (42-75); PLATELET COUNT 295 10^3/uL (130-400); RED CELL DISTRIBUTION WIDTH 15.1 % (10.0-14.5); WHITE BLOOD COUNT 13.3 10^3/uL (4.3-11.0)
[2020-01-03 05:30] LABS: ALANINE AMINOTRANSFERASE 13 U/L (0-55); ALBUMIN 3.3 GM/DL (3.2-4.5); ALKALINE PHOSPHATASE 104 U/L (40-136); BILIRUBIN,TOTAL 0.7 MG/DL (0.1-1.0); BUN/CREATININE RATIO 20; CALCIUM 8.9 MG/DL (8.5-10.1); CARBON DIOXIDE 24 MMOL/L (21-32); CHLORIDE 104 MMOL/L (98-107); CREATININE SERUM 0.84 MG/DL (0.60-1.30); GFR ESTIMATED > 60; GLUCOSE 262 MG/DL (70-105); POTASSIUM 4.3 MMOL/L (3.6-5.0); SODIUM 137 MMOL/L (135-145); TOTAL PROTEIN 6.7 GM/DL (6.4-8.2)
[2020-01-03] MEDS: ceFAZolin 2 GM IV Premixed 50 ML IV SCH (06:08)
[2020-01-03] MEDS: KCL 20 MEQ TAB (K-DUR) PO SCH (06:08)
[2020-01-03 08:00] VITALS: BP 142/71
--- NOTE | 2020-01-03 08:37 | Physical Therapy Evaluation ---
PT Evaluation-General Medical Diagnosis Admission Date Jan 01, 2020 at 09:52 Medical Diagnosis: left hip fracture/UTI/Influenza A&B Onset Date: Jan 01, 2020 Therapy Diagnosis Therapy Diagnosis: impaired mobility Height/Weight Height (Feet): 5 Height (Inches): 4.00 Weight (Pounds): 170 Weight (Ounces): 0 Precautions Precautions/Isolations: Droplet Isolation, Fall Prevention Weight Bear Status Right Lower Extremity: Right Weight Bearing/Tolerated Left Lower Extremity: Left Non Weight Bearing Referral Physician: Lux Reason for Referral: Evaluation/Treatment Medical History Pertinent Medical History: Atrial Fib, Arthritis, CAD, COPD, Dementia, HTN, [place], Renal Insufficiency, Rheumatoid Arthritis Current History EMS secondary to fall off of bar stool in home Reviewed History: Yes Prior Prior Level of Function SCALE: Activities may be completed with or without assistive devices. 8-Yezfwnawfn-snlqwox completes the activity by him/herself with no assistance from a helper. 5-Set-up or Clean-up Assistance-helper sets up or cleans up; patient completes activity. Bannock assists only prior to or following the activity. 4-Supervision or Touching Assistance-helper provides verbal cues and/or touching/steadying and/or contact guard assistance as patient completes activity. Assistance may be provided throughout the activity or intermittently. 3-Partial/Moderate Assistance-helper does LESS THAN HALF the effort. B[place]ock lifts, holds or supports trunk or limbs, but provides less than half the effort. 2-Substantial/Maximal Assistance-helper does MORE THAN HALF the effort. B[place] lifts or holds trunk or limbs and provides more than half the effort. 4-Qqotwvwqd-dpkmxs does ALL the effort. Patient does none of the effort to complete the activity. Or, the assistance of 2 or more helpers is required for the patient to complete the activity. If activity was not attempted, code reason: 7-Patient Refused. 9-Not Applicable-not attempted and the patient did not perform the activity before the current illness, exacerbation or injury. 10-Not Attempted due to Environmental Limitations-(lack of equipment, weather restraints, etc.). 88-Not Attempted due to Medical Conditions or Safety Concerns. Bed Mobility: 5 Transfers (B,C,W/C): 5 Gait: 5 Indoor Mobility (Ambulation): Needed Some Help Prior Devices Use: Walker PT Evaluation-Current Subjective Patient agrees to PT. Pain Numeric Pain Scale: 8 Location: Left Location Body Site: Hip Pain Description: Acute Objective Patient Orientation: Person, Time, Situation Attachments: Oxygen, Arana Catheter, IV ROM/Strength ROM Lower Extremities left LE limited due to pain/right LE WFL Strength Lower Extremities right LE 3/5 grossly/left LE 3-/5 grossly Integumentary/Posture Integumentary refer to nursing notes Bladder Incontinence: Arana Cath Posture trunk flexed posture and right lean to reduce left hip pain Neuromuscular (Tone, Coordination, Reflexes) grossly intact Sensory Vision: Functional Hearing: Functional Sensation Right Lower Extremit: Intact Sensation Left Lower Extremity: Intact Transfers Roll Left to Right (QC): 1 Lying to Sitting/Side of Bed(Q: 1 Sit to Stand (QC): 1 Gait Does the Patient Walk?: No and Walking Goal NOT indicated Balance Sitting Static: Fair Sitting Dynamic: Fair Standing Static: Poor Standing Dynamic: Poor Treatment Patient is currently positive influenza A and B and is NWB left LE after fixation. PT will see patient 6/wk to preserve PPE and will increase when patient is able to increase weight bearing left LE. Assessment/Needs 74 y.o. female, has difficulty with NWB status left LE, will benefit from skilled PT to address functional strength and mobility to improve current LOF. From a PT standpoint, patient will require extended care facility to allow proper healing of left hip due to NWB status. Rehab Potential: Fair PT Fpc Goals Statistical Clerk Advertising Goals PT Fpc Goals Time Frame: Jan 20, 2020 Roll Left & Right (QC): 3 Sit to Lying (QC): 3 Lying-Sitting on Side/Bed(QC): 3 Sit to Stand (QC): 3 Chair/Bzw-tb-Qtwqn Xfer(QC): 3 Toilet Transfer (QC): 3 Does the Patient Walk: No and Walking Goal NOT indicated PT Plan Problem List Problem List: Activity Tolerance, Functional Strength, Balance, Transfer, Bed Mobility, ROM Treatment/Plan Treatment Plan: Continue Plan of Care Treatment Plan: Bed Mobility, Education, Functional Activity Rex, Functional Strength, Safety, Therapeutic Exercise, Transfers Treatment Duration: Jan 20, 2020 Frequency: 6 times per week Estimated Hrs Per Day: .5 hour per day Patient and/or Family Agrees t: Yes Safety Risks/Education Patient Education: Transfer Techniques, Safety Issues Teaching Recipient: Patient Teaching Methods: Demonstration, Discussion Response to Teaching: Verbalize Understanding, Reinforcement Needed Discharge Recommendations Therapy Discharge Recommendati: Other, See Comments (group home facility) Time/GCodes Time In: 750 Time Out: 810 Total Billed Treatment Time: 20 Total Billed Treatment 1 visit EVMod 20 min MERT KASPER PT Jan 03, 2020 08:37
[2020-01-03] MEDS: CARVEDILOL 6.25 MG (COREG) TAB PO SCH ×2 (08:58→20:55)
[2020-01-03] MEDS: APIXABAN 5 MG (ELIQUIS) TABLET PO SCH ×2 (08:58→20:55)
[2020-01-03] MEDS: FUROSEMIDE 40 MG (LASIX) TAB PO SCH (08:58)
[2020-01-03] MEDS: SENNA W/DOCUSATE (SENOKOT S) TABLET PO SCH ×2 (08:58→20:56)
[2020-01-03] MEDS: OSELTAMIVIR 30 MG (TAMIFLU) CAPSULE PO SCH ×2 (08:58→21:05)
[2020-01-03] MEDS: 1/2 NS W/KCL 20 MEQ/L 1,000 ML IV SCH ×2 (09:09→19:54)
--- NOTE | 2020-01-03 09:27 | Progress Note - Ortho ---
Progress Note Subjective Date of Exam 01/03/20 Chief Complaint POD#1 percutaneous in situ screw fixation impacted subcapital fracture left hip HPI/Events since last exam Mrs. Lee is 1 day postop. When I saw her she was up sitting in the chair. She states she's having minimal pain. She had no increased pain getting to the chair. Therapy is not started ambulating her yet. She'll ambulate with walker nonweightbearing on the left for at least 2 weeks. She denies any other problems or issues Review of Systems Reviewed and no additions or changes Allergies: Coded Allergies: Sulfa (Sulfonamide Antibiotics) (Verified Allergy, Unknown, 12/27/17) Home Meds Reported Medications Diltiazem HCl (Diltiazem 24Hr Cd) 240 Mg Cap.er.24h, 240 MG PO DAILY, CAP 01/01/20 Lidocaine HCl (Aspercreme) 76.5 Gm Cream..g., 1 APPLIC TP Q4H PRN for HERPETIC PAIN, TUBE APPLY TO LEFT TORSO RASH 01/01/20 Acetaminophen (Tylenol 8 Hour) 650 Mg Tablet.er, 1300 MG PO Q8H PRN for PAIN- MILD (1-4), TAB 01/01/20 Carvedilol (Carvedilol) 6.25 Mg Tablet, 6.25 MG PO BID, TAB 01/01/20 Melatonin (Melatonin) 5 Mg Tablet, 5 MG PO HS PRN for RESTLESSNESS, TAB 11/03/19 Meclizine HCl (Meclizine HCl) 25 Mg Tablet, 50 MG PO Q6H PRN for DIZZINESS, TAB 11/03/19 Loperamide HCl (Loperamide) 2 Mg Capsule, 2 MG PO UD PRN for DIARRHEA, CAP 11/03/19 Fluticasone/Salmeterol (Advair Hfa 115-21 Mcg Inhaler) 12 Gm Hfa.aer.ad, 2 PUFF IH Q12H PRN for SHORTNESS OF BREATH, INHALER 11/03/19 Calcium Carbonate (Calcium Carbonate) 200 Mg Tab.chew, 500 MG PO TID PRN for INDIGESTION, TAB 11/03/19 Potassium Chloride (Potassium Chloride) 20 Meq Tablet.er, 20 MEQ PO DAILY, TAB 11/03/19 Furosemide (Furosemide) 40 Mg Tablet, 40 MG PO DAILY, TAB 11/03/19 Ipratropium/Albuterol Sulfate (Iprat-Albut 0.5-3(2.5) mg/3 ml) 3 Ml Ampul.neb, 3 ML NEB QID PRN for SHORTNESS OF BREATH, EACH 11/03/19 Montelukast Sodium (Singulair) 10 Mg Tablet, 10 MG PO DAILY, TAB 11/03/19 Sennosides/Docusate Sodium (Senna S Tablet) 1 Each Tablet, 1 TAB PO BID, TAB 11/03/19 Atorvastatin Calcium (Atorvastatin Calcium) 20 Mg Tablet, 20 MG PO HS, TAB 10/09/19 Citalopram Hydrobromide (Celexa) 20 Mg Tablet, 20 MG PO HS, TAB 10/09/19 [Instaflex] No Conflict Check, 1 TAB PO DAILY, TAB 12/27/17 Apixaban (Eliquis) 5 Mg Tablet, 5 MG PO BID, TAB 12/27/17 Discontinued Reported Medications Oxycodone HCl/Acetaminophen (Percocet 5-325 mg Tablet) 1 Each Tablet, 1 TAB PO Q6H PRN for SHINGLES PAIN, TAB 11/03/19 Alprazolam (Alprazolam) 0.25 Mg Tablet, 0.25 MG PO Q8H PRN for ANXIETY, TAB 11/03/19 Docusate Sodium (Colace) 100 Mg Capsule, 100 MG PO BID, CAP 11/03/19 Diltiazem HCl (Diltiazem 24Hr Cd) 240 Mg Cap.er.24h, 240 MG PO DAILY, CAP 11/03/19 Carvedilol (Carvedilol) 12.5 Mg Tablet, 12.5 MG PO BID, TAB 11/03/19 Objective Exam Constitutional: [] HEENT: [] Neck: [] Cardiovascular: [] Respiratory: [] Gastrointestinal: [] Genitourinary: [] Skin: [] Back/Spine: [] Extremities: [Dressing is intact. No swelling or bruising. No calf tenderness and negative Homans either leg. She is neurovascularly intact both lower extremities with equal pulses and no weakness. Normal sensation with good capillary refill. Good position of both legs Neurologic: [] Psychiatric: [] Hematologic/lymphatic/immunologic: [] Vital Signs Vital Signs Date Time Temp Pulse Resp B/P (MAP) Pulse Ox O2 Delivery O2 Flow Rate FiO2 01/03/20 07:33 97 Nasal Cannula 2.00 01/03/20 06:40 86 01/03/20 03:36 36.2 87 20 178/88 (118) 95 Nasal Cannula 2.00 01/03/20 02:16 95 Nasal Cannula 2.00 01/03/20 01:00 97 01/03/20 00:15 36.3 82 20 151/81 (104) 96 Nasal Cannula 2.00 01/02/20 21:57 98 Nasal Cannula 2.00 01/02/20 21:00 Room Air 01/02/20 20:00 35.3 97 20 133/73 (93) 95 Nasal Cannula 2.00 01/02/20 19:00 98 01/02/20 19:00 98 Nasal Cannula 2.00 01/02/20 16:07 91 2.00 01/02/20 15:52 35.6 89 15 136/77 (96) 93 Nasal Cannula 2.00 01/02/20 15:27 35.9 79 16 125/61 (82) 92 Nasal Cannula 3.00 01/02/20 15:10 Nasal Cannula 2 01/02/20 15:10 36.1 20 115/82 (93) 97 Room Air 2 01/02/20 15:00 20 115/82 (93) 98 Nasal Cannula 2 01/02/20 15:00 Nasal Cannula 3 01/02/20 14:50 20 120/80 (93) 98 Nasal Cannula 3 01/02/20 14:45 Nasal Cannula 3 01/02/20 14:40 20 112/90 (97) 98 Nasal Cannula 3 01/02/20 14:30 20 115/89 (98) 99 Nasal Cannula 3 01/02/20 14:30 OxyMask 5 01/02/20 14:20 20 92/71 (78) 99 OxyMask 5 01/02/20 14:16 OxyMask 5 01/02/20 14:16 35.6 20 108/76 (87) 100 OxyMask 5 01/02/20 12:05 79 01/02/20 12:00 36.1 85 18 129/72 (91) 98 Nasal Cannula 3.00 01/02/20 11:12 96 Nasal Cannula 3.00 I & O 01/03/20 06:59 Intake Total 3984.8 ml Output Total 2350 ml Balance 1634.8 ml Lab Results Laboratory Tests 01/03/20 04:45: White Blood Count 13.3H, Red Blood Count 4.31L, Hemoglobin 12.6, Hematocrit 39, Mean Corpuscular Volume 91, Mean Corpuscular Hemoglobin 29, Mean Corpuscular Hemoglobin Concent 32, Red Cell Distribution Width 15.1H, Platelet Count 295, Mean Platelet Volume 10.3, Neutrophils (%) (Auto) 91H, Lymphocytes (%) (Auto) 4L , Monocytes (%) (Auto) 5, Eosinophils (%) (Auto) 0, Basophils (%) (Auto) 0, Neutrophils # (Auto) 12.1H, Lymphocytes # (Auto) 0.6L, Monocytes # (Auto) 0.6, Eosinophils # (Auto) 0.0, Basophils # (Auto) 0.0, Sodium Level 137, Potassium Level 4.3, Chloride Level 104, Carbon Dioxide Level 24, Anion Gap 9, Blood Urea Nitrogen 17, Creatinine 0.84, Estimat Glomerular Filtration Rate > 60, BUN/Creatinine Ratio 20, Glucose Level 262H, Calcium Level 8.9, Corrected Calcium 9.5, Total Bilirubin 0.7, Aspartate Amino Transf (AST/SGOT) 17, Alanine Aminotransferase (ALT/SGPT) 13, Alkaline Phosphatase 104, Total Protein 6.7, Albumin 3.3 Microbiology 01/01/20 Blood Culture - Preliminary, Resulted No growth 01/01/20 Urine Culture - Preliminary, Resulted Enterococcus faecalis 01/01/20 Influenza Types A,B Antigen (KENA) - Final, Complete Assessment and Plan Assessment Doing well first postop day Problem List Unchanged Plan Physical therapy, walker ambulation nonweightbearing on the left for at least 2 weeks. Final Diagonsis 1 day postop percutaneous in situ screw fixation impacted subcapital fracture left hip Level of the visit: Level 3 Focused Exam Lactate Level 01/01/20 09:35: Lactic Acid Level 1.51 Clinical Quality Measures DVT/VTE Risk/Contraindication: Risk Factor Score Per Nursin RFS Level Per Nursing on Admit: 4+=Very High LIBRADO BONILLA MD Jan 03, 2020 09:27
--- NOTE | 2020-01-03 10:19 | Cardiology Progress Note ---
Subjective Date Seen by Provider: Jan 03, 2020 Time Seen by Provider: 10:18 Subjective/Events-last exam Patient is sitting up in chair, denies any chest pain or dyspnea. Review of Systems General: No Chills, No Night Sweats, No Fatigue, No Malaise, No Appetite, No Other HEENT: No Head Aches, No Visual Changes, No Eye Pain, No Ear Pain, No Dysphasia, No Sinus Congestion, No Post Nasal Drip, No Sore Throat, No Other Pulmonary: No Dyspnea, No Cough, No Pleuritic Chest Pain, No Other Cardiovascular: Chest Pain; No: Palpitations, Orthopnea, Paroxysmal Noc. Dyspnea, Edema, Lt Headedness, Other Focused Exam Lactate Level Objective-Cardiology Exam Last Set of Vital Signs Vital Signs 01/01/20 01/04/20 01/04/20 12:52 10:06 11:13 Temp 35.6 Pulse 88 Resp 22 B/P (MAP) 145/88 Pulse Ox 98 O2 Delivery Nasal Cannula O2 Flow Rate 2.00 FiO2 21 Capillary Refill : Less Than 3 Seconds I&O Intake and Output 01/04/20 00:00 Intake Total 1774 ml Output Total 1650 ml Balance 124 ml Intake Oral 1724 ml IV Total 50 ml Output Urine Total 1650 ml General: Alert, Oriented X3, Cooperative, No Acute Distress HEENT: Atraumatic, PERRLA Neck: Supple, No JVD, No Thyromegaly Lungs: Clear to Auscultation Heart: Regular Rate, Normal S1, Normal S2 Abdomen: Normal Bowel Sounds, Soft, No Tenderness, No Hepatosplenomegaly, No Masses Extremities: No Clubbing, No Cyanosis, No Edema, Normal Pulses, No Tenderness/Swelling Skin: No Rashes, No Breakdown, No Significant Lesion Neuro: Normal Speech, Normal Tone, Sensation Intact Psych/Mental Status: Mental Status NL Results Lab Laboratory Tests 01/04/20 04:55 A/P-Cardiology Admission Diagnosis Hip fracture Coronary artery disease Chronic atrial fibrillation Hypertension Assessment/Plan Hip fracture, s/p surgical repair. Atrial fibrillation, chronic, rate controlled. Maintained on oral anticoagulation. Continue to monitor. Influenza A and B- continue supportive care. Coronary artery disease, history of multiple intervention a total of 4 stents, last cardiac catheterization was done by Dr. Hamilton more than 40 years ago, she was offered another cardiac catheterization, has been refusing cardiac workup. Congestive heart failure, chronic left ventricular systolic dysfunction, ejection fraction 40-45 percent per echocardiogram done in September 2019, has PA pressure of 45-50 mmHg, mitral and tricuspid regurgitation. Chronic shortness of breath multifactorial. Continue to monitor Hypertension, monitor blood pressure Hyperlipidemia, managed by primary care physician Diabetes mellitus, followed and managed by primary care physician History of tobaccoism, stopped smoking in 2003. Patient was seen and evaluated with Danni, examination performed, management plan was discussed, agree with the current scribed note, I made few changes to the note using Italic font Patient is laying down in bed, feeling well. No new complaint Denied any chest pain or shortness of breath Possible discharge to rehabilitation today Clinical Quality Measures DVT/VTE Risk/Contraindication: Risk Factor Score Per Nursin RFS Level Per Nursing on Admit: 4+=Very High DANNI REILLY Jan 03, 2020 10:19 am ALEJANDRINA CRAWFORD MD Jan 04, 2020 11:46 am
--- NOTE | 2020-01-03 10:23 | NUR ---
CM/SS: Visited with spouse as to plan for discharge Plan: Spouse reports he would like pt to return home with [facility] Summary: Spouse reports that pt is doing ok and that [facility] then [facility]. He would like and think pt prefers to return home. He would also like home care; as they had [facility] in the past, and is ok for that upon discharge. This worker will follow up.
--- NOTE | 2020-01-03 10:52 | Anesthesia-General Post-Op ---
General Patient Condition Mental Status/LOC: Same as Preop Cardiovascular: Satisfactory Nausea/Vomiting: Absent Respiratory: Satisfactory Pain: Controlled Complications: Absent Post Op Complications Complications None Follow Up Care/Instructions Patient Instructions None needed. Anesthesia/Patient Condition Patient Condition Patient is doing well, no complaints, stable vital signs, no apparent adverse anesthesia problems. No complications reported per nursing. CARYN STEELE CRNA Jan 03, 2020 10:52
--- NOTE | 2020-01-03 11:00 | Occupational Therapy Eval ---
OT Evaluation-General/PLF Medical Diagnosis Admission Date Jan 01, 2020 at 09:52 Medical Diagnosis: left hip fracture/UTI/Influenza A&B Onset Date: Jan 01, 2020 Therapy Diagnosis Therapy Diagnosis: impaired self care skills Height/Weight Height (Feet): 5 Height (Inches): 4.00 Weight (Pounds): 170 Weight (Ounces): 0 Precautions Precautions/Isolations: Droplet Isolation, Fall Prevention Weight Bear Status Weight Bearing Restriction: Non Weight Bearing Location Restriction: L LE Referral Physician: Lux Medical History Pertinent Medical History: Atrial Fib, Arthritis, CAD, COPD, Dementia, HTN, [place], Renal Insufficiency, Rheumatoid Arthritis Additional Medical History high cholesterol, anxiety, depression Current History Pt admitted with left hip fracture, influenza A/B Reviewed History: Yes Social History Home: Single Level Steps Into Home: 3 Steps Inside Home: 1 ADL-Prior Level of Function SCALE: Activities may be completed with or without assistive devices. 6-Qukqgxlgyq-ywingdk completes the activity by him/herself with no assistance from a helper. 5-Set-up or Clean-up Assistance-helper sets up or cleans up; patient completes activity. Irene assists only prior to or following the activity. 4-Supervision or Touching Assistance-helper provides verbal cues and/or touching/steadying and/or contact guard assistance as patient completes act ivity. Assistance may be provided throughout the activity or intermittently. 3-Partial/Moderate Assistance-helper does LESS THAN HALF the effort. Irene lifts, holds or supports trunk or limbs, but provides less than half the effort. 2-Substantial/Maximal Assistance-helper does MORE THAN HALF the effort. Irene lifts or holds trunk or limbs and provides more than half the effort. 4-Btdjkkxeu-fhuabq does ALL the effort. Patient does none of the effort to complete the activity. Or, the assistance of 2 or more helpers is required for the patient to complete the activity. If activity was not attempted, code reason: 7-Patient Refused. 9-Not Applicable-not attempted and the patient did not perform the activity before the current illness, exacerbation or injury. 10-Not Attempted due to Environmental Limitations-(lack of equipment, weather restraints, etc.). 88-Not Attempted due to Medical Conditions or Safety Concerns. ADL PLOF Comments Spouse states pt was recently at [facility] and has been home for ~1month. He states pt uses a walker for mobility and is able to complete most basic self care tasks. Functional Cognition: Needed Some Help DME/Equipment: Grab Bars, Shower, Tub/Shower OT Current Status Subjective Pt resting in bed, agrees to therapy. Pt reports fatigue, but has no c/o pain. Mental Status/Objective Patient Orientation: Person Attachments: Arana Catheter, Oxygen Current Glasses/Contacts: Yes (readers) Hearing Aids: No Dentures/Partials: Yes (uppers) Hand Dominance: Right Upper Extremity ROM grossly WFL Upper Extremity Coordination Fair Upper Extremity Strength generalized weakness ADL-Treatment ADL-Current Pt in bed, states she just got back in bed after sitting in chair. Nurse aide states she assisted pt with bed bath. Pt participated in UE assessment while in bed. Pt completed grooming tasks. Combed hair with min assist to reach back. Pt performed oral care with supervision. Pt declined further activity at this time. Education provided regarding role of OT and plan of care. Pt resting in bed with needs met and spouse present after session. Oral Hygiene (QC): 4 Education OT Patient Education: Rehab process Teaching Recipient: Patient, Family Teaching Methods: Discussion Response to Teaching: Reinforcement Needed OT Fdc Goals Fdc Goals Time Frame: Jan 17, 2020 Oral Hygiene (QC): 6 Toileting Hygiene (QC): 3 Shower/Bathe Self (QC): 3 Upper Body Dressing (QC): 4 Lower Body Dressing (QC): 3 Additional Goals: 1-Demonstrate ADL Tasks, 2-Verbalize Understanding, 3-ImproveStrength/Rex 1=Demonstrate adherence to instructed precautions during ADL tasks. 2=Patient will verbalize/demonstrate understanding of assistive devices/modifications for ADL. 3=Patient will improve strength/tolerance for activity to enable patient to per form ADL's. OT Education/Plan Problem List/Assessment Assessment: Decreased Activ Tolerance, Decreased UE Strength, Dependent Transfers, Impaired I ADL's, Impaired Self-Care Skills Pt admitted with left hip fracture, now s/p surgical intervention. Pt is NWB left LE. Pt to benefit from skilled OT intervention for ADL training, transfers, strengthening, and safety education to increase level of independence and allow safe discharge plan. Discharge Recommendations Plan/Recommendations: Continue POC Treatment Plan/Plan of Care Treatment,Training & Education: Yes Patient would benefit from OT for education, treatment and training to promote independence in ADL's, mobility, safety and/or upper extremity function for ADL's. Plan of Care: ADL Retraining, Functional Mobility, UE Funct Exercise/Act Treatment Duration: Jan 17, 2020 Frequency: 5 times per week Estimated Hrs Per Day: .25 hour per day Rehab Potential: Fair Time/GCodes Start Time: 10:35 Stop Time: 10:50 Total Time Billed (hr/min): 15 Billed Treatment Time 1 visit, KAYLA(15minutes) BROOKE BUSTOS OT Jan 03, 2020 10:59
[2020-01-03 12:00] VITALS: BP 123/71
--- NOTE | 2020-01-03 12:37 | Progress Note ---
Subjective Date Seen by a Provider: Jan 03, 2020 Time Seen by a Provider: 11:15 Subjective/Events-last exam Patient did well after surgery Pain well controlled DC IVF to prevent overload PT OT ordered Non-weight bearing for 2 weeks I proposed VCV x 2 weeks then I would have intention of accepting back to IRF for 1 week then DC home Patient adamant about refusing to go back to [facility] so I spoke to SW and will try to talk her into that since she had the fall at home and has cognitive deficit and I do not feel that would be a safe option for her BM+ Using IS and Nebs ordered Arana cath will DC Review of Systems General: Fatigue Musculoskeletal: leg pain Focused Exam Lactate Level 01/01/20 09:35: Lactic Acid Level 1.51 Objective Exam Last Set of Vital Signs Vital Signs Date Time Temp Pulse Resp B/P (MAP) Pulse Ox O2 Delivery O2 Flow Rate FiO2 01/03/20 09:33 95 Nasal Cannula 2.00 01/03/20 08:00 36.2 85 18 142/71 (94) 01/01/20 12:52 21 Capillary Refill : Less Than 3 Seconds I&O Intake and Output 01/03/20 00:00 Intake Total 3834.8 ml Output Total 2050 ml Balance 1784.8 ml Intake Oral 720 ml IV Total 3114.8 ml Output Urine Total 2050 ml General: Alert, Oriented X3, Cooperative, No Acute Distress Lungs: Clear to Auscultation, Normal Air Movement Heart: Regular Rate, Normal S1, Normal S2, No Murmurs Neuro: Strength at 5/5 X4 Ext Psych/Mental Status: Mental Status NL Results Lab Laboratory Tests 01/03/20 04:45: White Blood Count 13.3H, Red Blood Count 4.31L, Hemoglobin 12.6, Hematocrit 39, Mean Corpuscular Volume 91, Mean Corpuscular Hemoglobin 29, Mean Corpuscular Hemoglobin Concent 32, Red Cell Distribution Width 15.1H, Platelet Count 295, Mean Platelet Volume 10.3, Neutrophils (%) (Auto) 91H, Lymphocytes (%) (Auto) 4L , Monocytes (%) (Auto) 5, Eosinophils (%) (Auto) 0, Basophils (%) (Auto) 0, Neutrophils # (Auto) 12.1H, Lymphocytes # (Auto) 0.6L, Monocytes # (Auto) 0.6, Eosinophils # (Auto) 0.0, Basophils # (Auto) 0.0, Sodium Level 137, Potassium Level 4.3, Chloride Level 104, Carbon Dioxide Level 24, Anion Gap 9, Blood Urea Nitrogen 17, Creatinine 0.84, Estimat Glomerular Filtration Rate > 60, BUN/Creatinine Ratio 20, Glucose Level 262H, Calcium Level 8.9, Corrected Hemant cium 9.5, Total Bilirubin 0.7, Aspartate Amino Transf (AST/SGOT) 17, Alanine Aminotransferase (ALT/SGPT) 13, Alkaline Phosphatase 104, Total Protein 6.7, Albumin 3.3 Microbiology 01/01/20 Blood Culture - Preliminary, Resulted No growth 01/01/20 Urine Culture - Final, Complete Enterococcus faecalis 01/01/20 Influenza Types A,B Antigen (KENA) - Final, Complete Assessment/Plan Assessment/Plan Assess & Plan/Chief Complaint Assessment: L femoral head hip fracture after fall s/p repair 01/02/20 POD # 1 Flu A and B acute Leukocytosis Hypokalemia Elevated BNP COPD CAD Hx of AK hx of Afib Dementia Arthritis HTN UTI Arana in place now DC Plan: Ortho consult appreciated Consult Cardiology is appreciated Pain control Tamiflu IVF, replace K Isolation CCB for HTN DC IVF Diagnosis/Problems Diagnosis/Problems (1) Closed left hip fracture Status: Acute Qualifiers: Qualified Codes: S72.002A - Fracture of unspecified part of neck of left femur, initial encounter for closed fracture (2) History of shingles (3) Dementia (4) Influenza Status: Acute (5) UTI (urinary tract infection) Status: Acute Qualifiers: Qualified Codes: N30.00 - Acute cystitis without hematuria (6) Debility Status: Acute (7) Memory loss (8) Delirium (9) Paroxysmal atrial fibrillation Status: Chronic (10) EMPHYSEMA, UNSPECIFIED Status: Chronic (11) COPD (chronic obstructive pulmonary disease) Status: Acute (12) CHF (congestive heart failure) Status: Acute Clinical Quality Measures Admission Status Admission Dx UTI Rocephin empirically Tamiflu for A and B Percutaneous pins to be placed tomorrow OAC Dr Kim appreciated DVT/VTE Risk/Contraindication: Risk Factor Score Per Nursin RFS Level Per Nursing on Admit: 4+=Very High JEROME NEAL DO Jan 03, 2020 12:37
--- NOTE | 2020-01-03 15:56 | NUR ---
CM/SS: Visited with pt as to plan for discharge after recommendation from Plan: Pt to go to residential facility - [facility] and then to In Patient Rehab, then home. Summary: Visited with pt as to doctors recommendation as to returning to [facility] for 2 weeks, then to Inpatient Rehab for one week then home. Pt just wants to go home. Pt reminded of her limitations based on her surgery, and that she will be unable to have weight on her left side. Pt thinks about it and decides that she can go back to [facility] and then to Rehab and then to home. Pt is given the choice form and determines [facility] and if they are unable to take her she can go to [facility]. Pt seems ok with that plan. [facility] is faxed information on pt and determine they can take pt on tomorrow. As pt has been there in the past. 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 No Level I CARE assessment needed as pt has been there previously.
[2020-01-03 16:02] VITALS: BP 116/66
[2020-01-03 20:37] VITALS: BP 125/60
[2020-01-03] MEDS: MONTELUKAST 10 MG (SINGULAIR) TAB PO SCH (20:55)
[2020-01-04] MEDS: HYDROcodone/APAP 5 MG/325 MG (LORTAB) TAB PO PRN (00:08)
[2020-01-04 00:29] VITALS: BP 152/89
[2020-01-04] MEDS: AMPICILLIN FOR IV USE 1,000 MG in WATER (STERILE) FOR INJECTION 7.4 ML IV SCH ×2 (01:50→07:47)
[2020-01-04] MEDS: RT-ALBUTEROL/IPRATROPIUM 3 ML (DUONEB) VIAL INH SCH ×3 (02:36→11:11)
[2020-01-04] MEDS: 1/2 NS W/KCL 20 MEQ/L 1,000 ML IV SCH (02:57)
[2020-01-04 04:00] VITALS: BP 142/93
[2020-01-04 05:17] LABS: BASOPHILS % (AUTO) 0 % (0-10); EOSINOPHILS % (AUTO) 0 % (0-10); HEMATOCRIT 38 % (35-52); HEMOGLOBIN 12.3 G/DL (11.5-16.0); LYMPHOCYTES # (AUTO) 1.3 X 10^3 (1.0-4.0); LYMPHOCYTES % (AUTO) 7 % (12-44); MEAN CORPUSCULAR HEMOGLOBIN 30 PG (25-34); MEAN CORPUSCULAR HGB CONC 33 G/DL (32-36); MEAN CORPUSCULAR VOLUME 91 FL (80-99); MEAN PLATELET VOLUME 10.4 FL (7.4-10.4); MONOCYTES # (AUTO) 1.1 X 10^3 (0.0-1.0); MONOCYTES % (AUTO) 6 % (0-12); NEUTROPHILS # (AUTO) 15.5 X 10^3 (1.8-7.8); NEUTROPHILS % (AUTO) 87 % (42-75); PLATELET COUNT 365 10^3/uL (130-400); RED CELL DISTRIBUTION WIDTH 15.4 % (10.0-14.5); WHITE BLOOD COUNT 17.8 10^3/uL (4.3-11.0)
[2020-01-04 05:44] LABS: ALANINE AMINOTRANSFERASE 15 U/L (0-55); ALBUMIN 3.4 GM/DL (3.2-4.5); ALKALINE PHOSPHATASE 107 U/L (40-136); BILIRUBIN,TOTAL 0.6 MG/DL (0.1-1.0); BUN/CREATININE RATIO 31; CALCIUM 9.2 MG/DL (8.5-10.1); CARBON DIOXIDE 24 MMOL/L (21-32); CHLORIDE 101 MMOL/L (98-107); CREATININE SERUM 0.86 MG/DL (0.60-1.30); GFR ESTIMATED > 60; GLUCOSE 129 MG/DL (70-105); POTASSIUM 4.4 MMOL/L (3.6-5.0); SODIUM 136 MMOL/L (135-145); TOTAL PROTEIN 6.6 GM/DL (6.4-8.2)
[2020-01-04] MEDS: KCL 20 MEQ TAB (K-DUR) PO SCH (06:28)
[2020-01-04] MEDS: SENNA W/DOCUSATE (SENOKOT S) TABLET PO SCH (07:39)
[2020-01-04] MEDS: APIXABAN 5 MG (ELIQUIS) TABLET PO SCH (07:39)
[2020-01-04] MEDS: FUROSEMIDE 40 MG (LASIX) TAB PO SCH (07:40)
[2020-01-04] MEDS: CARVEDILOL 6.25 MG (COREG) TAB PO SCH (07:40)
[2020-01-04] MEDS: OSELTAMIVIR 30 MG (TAMIFLU) CAPSULE PO SCH (07:57)
[2020-01-04 08:00] VITALS: BP 145/88
--- NOTE | 2020-01-04 09:39 | Progress Note - Ortho ---
Progress Note Subjective Date of Exam 01/04/20 Chief Complaint POD#2 percutaneous in situ screw fixation for impacted subcapital fracture left hip HPI/Events since last exam Mrs. Lee is 2 days postop. She states only time she has pain is when they move her. Other than that she's having no complaints or problems Review of Systems Reviewed and no additions or changes Allergies: Coded Allergies: Sulfa (Sulfonamide Antibiotics) (Verified Allergy, Unknown, 12/27/17) Home Meds Reported Medications Diltiazem HCl (Diltiazem 24Hr Cd) 240 Mg Cap.er.24h, 240 MG PO DAILY, CAP 01/01/20 Lidocaine HCl (Aspercreme) 76.5 Gm Cream..g., 1 APPLIC TP Q4H PRN for HERPETIC PAIN, TUBE APPLY TO LEFT TORSO RASH 01/01/20 Acetaminophen (Tylenol 8 Hour) 650 Mg Tablet.er, 1300 MG PO Q8H PRN for PAIN- MILD (1-4), TAB 01/01/20 Carvedilol (Carvedilol) 6.25 Mg Tablet, 6.25 MG PO BID, TAB 01/01/20 Melatonin (Melatonin) 5 Mg Tablet, 5 MG PO HS PRN for RESTLESSNESS, TAB 11/03/19 Meclizine HCl (Meclizine HCl) 25 Mg Tablet, 50 MG PO Q6H PRN for DIZZINESS, TAB 11/03/19 Loperamide HCl (Loperamide) 2 Mg Capsule, 2 MG PO UD PRN for DIARRHEA, CAP 11/03/19 Fluticasone/Salmeterol (Advair Hfa 115-21 Mcg Inhaler) 12 Gm Hfa.aer.ad, 2 PUFF IH Q12H PRN for SHORTNESS OF BREATH, INHALER 11/03/19 Calcium Carbonate (Calcium Carbonate) 200 Mg Tab.chew, 500 MG PO TID PRN for INDIGESTION, TAB 11/03/19 Potassium Chloride (Potassium Chloride) 20 Meq Tablet.er, 20 MEQ PO DAILY, TAB 11/03/19 Furosemide (Furosemide) 40 Mg Tablet, 40 MG PO DAILY, TAB 11/03/19 Ipratropium/Albuterol Sulfate (Iprat-Albut 0.5-3(2.5) mg/3 ml) 3 Ml Ampul.neb, 3 ML NEB QID PRN for SHORTNESS OF BREATH, EACH 1/17/20 Montelukast Sodium (Singulair) 10 Mg Tablet, 10 MG PO DAILY, TAB 11/03/19 Sennosides/Docusate Sodium (Senna S Tablet) 1 Each Tablet, 1 TAB PO BID, TAB 11/03/19 Atorvastatin Calcium (Atorvastatin Calcium) 20 Mg Tablet, 20 MG PO HS, TAB 10/09/19 Citalopram Hydrobromide (Celexa) 20 Mg Tablet, 20 MG PO HS, TAB 10/09/19 [Instaflex] No Conflict Check, 1 TAB PO DAILY, TAB 12/27/17 Apixaban (Eliquis) 5 Mg Tablet, 5 MG PO BID, TAB 12/27/17 Discontinued Reported Medications Oxycodone HCl/Acetaminophen (Percocet 5-325 mg Tablet) 1 Each Tablet, 1 TAB PO Q6H PRN for SHINGLES PAIN, TAB 11/03/19 Alprazolam (Alprazolam) 0.25 Mg Tablet, 0.25 MG PO Q8H PRN for ANXIETY, TAB 11/03/19 Docusate Sodium (Colace) 100 Mg Capsule, 100 MG PO BID, CAP 11/03/19 Diltiazem HCl (Diltiazem 24Hr Cd) 240 Mg Cap.er.24h, 240 MG PO DAILY, CAP 11/03/19 Carvedilol (Carvedilol) 12.5 Mg Tablet, 12.5 MG PO BID, TAB 11/03/19 Objective Exam Constitutional: [] HEENT: [] Neck: [] Cardiovascular: [] Respiratory: [] Gastrointestinal: [] Genitourinary: [] Skin: [] Back/Spine: [] Extremities: [] Her dressing has been changed. No thigh swelling or bruising. No calf tenderness negative Homans. She can dorsiflex and plantarflex the foot and ankle without any problems or pain. Good strength. Normal sensation with good cap refill and symmetrical pulses Neurologic: [] Psychiatric: [] Hematologic/lymphatic/immunologic: [] Vital Signs Vital Signs Date Time Temp Pulse Resp B/P (MAP) Pulse Ox O2 Delivery O2 Flow Rate FiO2 01/04/20 09:00 92 Nasal Cannula 2.00 01/04/20 08:00 35.6 88 22 145/88 (107) 92 Nasal Cannula 01/04/20 06:40 91 01/04/20 04:00 36.3 84 20 142/93 (109) 98 Room Air 01/04/20 02:34 88 Room Air 01/04/20 01:00 89 01/04/20 00:29 36.8 111 20 152/89 (110) 91 Room Air 01/03/20 23:01 89 Room Air 01/03/20 20:37 36.1 84 20 125/60 (81) 92 Room Air 01/03/20 19:54 Room Air 01/03/20 19:00 91 01/03/20 18:48 90 Nasal Cannula 01/03/20 16:02 36.0 83 20 116/66 (83) 91 Nasal Cannula 2.00 01/03/20 14:01 97 Nasal Cannula 2.00 01/03/20 12:45 94 01/03/20 12:00 36.4 84 16 123/71 (88) 95 Nasal Cannula 2.00 I & O 01/04/20 07:00 Intake Total 1924 ml Output Total 1550 ml Balance 374 ml Lab Results Laboratory Tests 01/04/20 04:55: White Blood Count 17.8H, Red Blood Count 4.15L, Hemoglobin 12.3, Hematocrit 38, Mean Corpuscular Volume 91, Mean Corpuscular Hemoglobin 30, Mean Corpuscular Hemoglobin Concent 33, Red Cell Distribution Width 15.4H, Platelet Count 365, Mean Platelet Volume 10.4, Neutrophils (%) (Auto) 87H, Lymphocytes (%) (Auto) 7L , Monocytes (%) (Auto) 6, Eosinophils (%) (Auto) 0, Basophils (%) (Auto) 0, Neutrophils # (Auto) 15.5H, Lymphocytes # (Auto) 1.3, Monocytes # (Auto) 1.1H, Eosinophils # (Auto) 0.0, Basophils # (Auto) 0.0, Sodium Level 136, Potassium Level 4.4, Chloride Level 101, Carbon Dioxide Level 24, Anion Gap 11, Blood Urea Nitrogen 27H, Creatinine 0.86, Estimat Glomerular Filtration Rate > 60, BUN/Creatinine Ratio 31, Glucose Level 129H, Calcium Level 9.2, Corrected Calcium 9.7, Total Bilirubin 0.6, Aspartate Amino Transf (AST/SGOT) 23, Alanine Aminotransferase (ALT/SGPT) 15, Alkaline Phosphatase 107, Total Protein 6.6, Albumin 3.4 Microbiology 01/01/20 Blood Culture - Preliminary, Resulted No growth 01/01/20 Urine Culture - Final, Complete Enterococcus faecalis 01/01/20 Influenza Types A,B Antigen (KENA) - Final, Complete Assessment and Plan Assessment Doing well postop day number 2 Problem List No changes Plan Continue physical therapy, bed to chair as tolerated. Continue walker ambulation nonweightbearing on the left Final Diagonsis Status post percutaneous in situ screw fixation for impacted subcapital fracture left hip Level of the visit: Level 3 Clinical Quality Measures DVT/VTE Risk/Contraindication: Risk Factor Score Per Nursin RFS Level Per Nursing on Admit: 4+=Very High LIBRADO BONILLA MD Jan 04, 2020 09:39
[2020-01-04] MEDS ORDERED: HYDR-4196 PO (09:57)
[2020-01-04] MEDS ORDERED: AMOX500T2 PO (09:57)
--- NOTE | 2020-01-04 09:59 | Discharge Inst-Skilled Nursing ---
Discharge Inst-Skilled NF Reconcile Patient Problems Problems Reviewed?: Yes Chief Complaint Patient presented to ED after falling from a stool yesterday at around 8am, she said she laid there for 30 minutes before someone came to help. She denies LOC and head CT shows no acute process. She has a L femoral head fracture. Patient Instructions Patient Problems: Left hip fracture s/p repair Cognitive deficit COPD AF UTI Goal: Return to IRF after 2 weeks of weight bearing restriction lifted Consult/Follow Up/Orders Follow Up Appt.: Dr Verde in 1 week Skilled NF Admit to: [facility] Certification ([facility]) I certify that [facility] services are required to be given on an inpatient basis b ecause of the above named patient's need for [facility] care on a continuing basis for the conditions(s) for which he/she was receiving inpatient hospital services prior to his/her transfer to the SNF. Fdc Facility Order: Nursing Services, Casino Assistant Manager-Evaluate & Treat, Physical Therapy-Evaluate & Treat, Speech Language-Evaluate & Treat Oxygen Delivery Method: Nasal Cannula Discharge Diet: No Restrictions Resuscitation Status: Full Code New & Resume Previous Orders New Medications: Amoxicillin (Amoxicillin) 500 Mg Tablet 500 MG PO TID, #9 TAB Hydrocodone/Acetaminophen (Hammond 10-325 Tablet) 1 Each Tablet 1 TAB PO Q4H PRN for PAIN-MODERATE MDD 5 TABS, #40 TAB Continued Medications: Acetaminophen (Tylenol 8 Hour) 650 Mg Tablet.er 1300 MG PO Q8H PRN for PAIN-MILD (1-4), TAB Apixaban (Eliquis) 5 Mg Tablet 5 MG PO BID, TAB Atorvastatin Calcium (Atorvastatin Calcium) 20 Mg Tablet 20 MG PO HS, TAB Calcium Carbonate (Calcium Carbonate) 200 Mg Tab.chew 500 MG PO TID PRN for INDIGESTION, TAB Carvedilol (Carvedilol) 6.25 Mg Tablet 6.25 MG PO BID, TAB Citalopram Hydrobromide (Celexa) 20 Mg Tablet 20 MG PO HS, TAB Diltiazem HCl (Diltiazem 24Hr Cd) 240 Mg Cap.er.24h 240 MG PO DAILY, CAP Fluticasone/Salmeterol (Advair Hfa 115-21 Mcg Inhaler) 12 Gm Hfa.aer.ad 2 PUFF IH Q12H PRN for SHORTNESS OF BREATH, INHALER Furosemide (Furosemide) 40 Mg Tablet 40 MG PO DAILY, TAB [Instaflex] () 1 TAB PO DAILY, TAB Ipratropium/Albuterol Sulfate (Iprat-Albut 0.5-3(2.5) mg/3 ml) 3 Ml Ampul.neb 3 ML NEB QID PRN for SHORTNESS OF BREATH, EACH Lidocaine HCl (Aspercreme) 76.5 Gm Cream..g. 1 APPLIC TP Q4H PRN for HERPETIC PAIN, TUBE APPLY TO LEFT TORSO RASH Loperamide HCl (Loperamide) 2 Mg Capsule 2 MG PO UD PRN for DIARRHEA, CAP Meclizine HCl (Meclizine HCl) 25 Mg Tablet 50 MG PO Q6H PRN for DIZZINESS, TAB Melatonin (Melatonin) 5 Mg Tablet 5 MG PO HS PRN for RESTLESSNESS, TAB Montelukast Sodium (Singulair) 10 Mg Tablet 10 MG PO DAILY, TAB Potassium Chloride (Potassium Chloride) 20 Meq Tablet.er 20 MEQ PO DAILY, TAB Sennosides/Docusate Sodium (Senna S Tablet) 1 Each Tablet 1 TAB PO BID, TAB Terese S Ammon Jan 04, 2020 09:58 TERESE VERDE DO Jan 04, 2020 09:59
--- NOTE | 2020-01-04 10:00 | Discharge Summary ---
Diagnosis/Chief Complaint Date of Admission Jan 01, 2020 at 09:52 Date of Discharge Discharge Date: Jan 04, 2020 Discharge Diagnosis Assessment: L femoral head hip fracture after fall s/p repair 01/02/20 POD # 2 Flu A and B acute Leukocytosis Hypokalemia Elevated BNP COPD CAD Hx of SD hx of Afib Dementia Arthritis HTN UTI Arana in place now DC Plan: Ortho consult appreciated Consult Cardiology is appreciated Pain control Tamiflu IVF, replace K Isolation CCB for HTN DC IVF Problem List Diagnosis/Problems Diagnosis/Problems (1) Closed left hip fracture Status: Acute Qualifiers: Qualified Codes: S72.002A - Fracture of unspecified part of neck of left femur, initial encounter for closed fracture (2) History of shingles (3) Dementia (4) Influenza Status: Acute (5) UTI (urinary tract infection) Status: Acute Qualifiers: Qualified Codes: N30.00 - Acute cystitis without hematuria (6) Debility Status: Acute (7) Memory loss (8) Delirium (9) Paroxysmal atrial fibrillation Status: Chronic (10) EMPHYSEMA, UNSPECIFIED Status: Chronic (11) COPD (chronic obstructive pulmonary disease) Status: Acute (12) CHF (congestive heart failure) Status: Acute Reason Hospital Visit CC: Left femoral neck fracture HPI: This is a 74[facility] patient of mine who has a h/o delirium with dementia, COPD O2 dependent, CHF, AF who presents to the ER after a fall yesterday and was helped to bed by family who ultimately came to ER due to increasing pain and found to have left femoral neck fracture. I saw the patient in the office Wednesday12/29/19 and she was in good health although frail. Patient has had a long course recently including multiple hospital stays along with IRF and failed requiring NH placement then went home with her on . Patient has not had complete resolution from the severe delirium she experienced recently. Influenza swab was positive and CXR negative for infiltrate and UTI noted on results. Dr Wasserman saw the patient and offered 3 percutaneous pins, no surgery and hemiarthroplasty. We will restart OAC. Discharge Summary Discharge Physical Examination Allergies: Coded Allergies: Sulfa (Sulfonamide Antibiotics) (Verified Allergy, Unknown, 12/27/17) Vitals & I&Os Vital Signs Date Time Temp Pulse Resp B/P (MAP) Pulse Ox O2 Delivery O2 Flow Rate FiO2 3/19/20 12:16 35.6 81 20 147/78 (101) 95 Nasal Cannula 2.00 01/01/20 12:52 21 General Appearance: Alert, Oriented X3, Cooperative Respiratory: Clear to Auscultation Cardiovascular: Regular Rate Neuro: Strength at 5/5 X4 Ext Hospital Course Was the Problem List Reviewed?: Yes Patient had a short course after a fall at home resulting in hip fracture requiring pin placement while maintained on OAC by Dr Wasserman. UTI treated for Enterococcus. COPD and AF remained stable during the stay and patient went to [facility] for 2 weeks until weight bearing restriction was lifted and will then DC to IRF for 1 week then DC home. Labs (last 24 hrs) Laboratory Tests 01/01/20 08:08: White Blood Count 17.6H, Red Blood Count 5.11, Hemoglobin 15.1, Hematocrit 45, Mean Corpuscular Volume 88, Mean Corpuscular Hemoglobin 30, Mean Corpuscular Hemoglobin Concent 34, Red Cell Distribution Width 15.1H, Platelet Count 313, Mean Platelet Volume 10.2, Neutrophils (%) (Auto) 88H, Lymphocytes (%) (Auto) 5L , Monocytes (%) (Auto) 4, Eosinophils (%) (Auto) 2, Basophils (%) (Auto) 0, Neutrophils # (Auto) 15.5H, Lymphocytes # (Auto) 1.0, Monocytes # (Auto) 0.7, Eosinophils # (Auto) 0.4H, Basophils # (Auto) 0.0, Neutrophils % (Manual) 86, Lymphocytes % (Manual) 5, Monocytes % (Manual) 6, Eosinophils % (Manual) 3, Band Neutrophils , Blood Morphology Comment NORMAL, Prothrombin Time 14.6, INR Comment 1.1, Activated Partial Thromboplast Time 29, Sodium Level 139, Potassium Level 3.3L, Chloride Level 101, Carbon Dioxide Level 25, Anion Gap 13, Blood Urea Nitrogen 9, Creatinine 0.76, Estimat Glomerular Filtration Rate > 60, BUN/Creatinine Ratio 12, Glucose Level 140H, Calcium Level 9.4, Corrected Calcium 9.6, Total Bilirubin 2.4H, Aspartate Amino Transf (AST/SGOT) 23, Alanine Aminotransferase (ALT/SGPT) 17, Alkaline Phosphatase 127, Total Creatine Kinase 27L, B-Type Natriuretic Peptide 819.2H, Total Protein 7.3, Albumin 3.8 01/01/20 08:45: Urine Color YELLOW, Urine Clarity CLEAR, Urine pH 7.0, Urine Specific [place] 1.025H, Urine Protein 3+H, Urine Glucose (UA) NEGATIVE, Urine Ketones NEGATIVE, Urine Nitrite NEGATIVE, Urine Bilirubin NEGATIVE, Urine Urobilinogen 0.2, Urine Leukocyte Esterase NEGATIVE, Urine RBC (Auto) TRACE-I, Urine RBC RARE, Urine WBC 10-25H, Urine Squamous Epithelial Cells 0-2, Urine Crystals NONE, Urine Bacteria FEWH, Urine Casts NONE, Urine Mucus NEGATIVE, Urine Culture Indicated YES 01/01/20 09:35: Lactic Acid Level 1.51 01/02/20 06:30: White Blood Count 13.7H, Red Blood Count 4.18L, Hemoglobin 12.3, Hematocrit 38, Mean Corpuscular Volume 91, Mean Corpuscular Hemoglobin 29, Mean Corpuscular Hemoglobin Concent 33, Red Cell Distribution Width 15.4H, Platelet Count 290, Mean Platelet Volume 10.4, Neutrophils (%) (Auto) 78H, Lymphocytes (%) (Auto) 11L, Monocytes (%) (Auto) 7, Eosinophils (%) (Auto) 4, Basophils (%) (Auto) 0, Neutrophils # (Auto) 10.8H, Lymphocytes # (Auto) 1.5, Monocytes # (Auto) 0.9, Eosinophils # (Auto) 0.5H, Basophils # (Auto) 0.0, Sodium Level 137, Potassium Level 3.6, Chloride Level 104, Carbon Dioxide Level 22, Anion Gap 11, Blood Urea Nitrogen 14, Creatinine 0.72, Estimat Glomerular Filtration Rate > 60, BUN/Creatinine Ratio 19, Glucose Level 105, Calcium Level 8.6 01/03/20 04:45: White Blood Count 13.3H, Red Blood Count 4.31L, Hemoglobin 12.6, Hematocrit 39, Mean Corpuscular Volume 91, Mean Corpuscular Hemoglobin 29, Mean Corpuscular Hemoglobin Concent 32, Red Cell Distribution Width 15.1H, Platelet Count 295, Mean Platelet Volume 10.3, Neutrophils (%) (Auto) 91H, Lymphocytes (%) (Auto) 4L , Monocytes (%) (Auto) 5, Eosinophils (%) (Auto) 0, Basophils (%) (Auto) 0, Neutrophils # (Auto) 12.1H, Lymphocytes # (Auto) 0.6L, Monocytes # (Auto) 0.6, Eosinophils # (Auto) 0.0, Basophils # (Auto) 0.0, Sodium Level 137, Potassium Level 4.3, Chloride Level 104, Carbon Dioxide Level 24, Anion Gap 9, Blood Urea Nitrogen 17, Creatinine 0.84, Estimat Glomerular Filtration Rate > 60, BUN/Creatinine Ratio 20, Glucose Level 262H, Calcium Level 8.9, Corrected Calcium 9.5, Total Bilirubin 0.7, Aspartate Amino Transf (AST/SGOT) 17, Alanine Aminotransferase (ALT/SGPT) 13, Alkaline Phosphatase 104, Total Protein 6.7, Albumin 3.3 01/04/20 04:55: White Blood Count 17.8H, Red Blood Count 4.15L, Hemoglobin 12.3, Hematocrit 38, Mean Corpuscular Volume 91, Mean Corpuscular Hemoglobin 30, Mean Corpuscular Hemoglobin Concent 33, Red Cell Distribution Width 15.4H, Platelet Count 365, Mean Platelet Volume 10.4, Neutrophils (%) (Auto) 87H, Lymphocytes (%) (Auto) 7L , Monocytes (%) (Auto) 6, Eosinophils (%) (Auto) 0, Basophils (%) (Auto) 0, Neutrophils # (Auto) 15.5H, Lymphocytes # (Auto) 1.3, Monocytes # (Auto) 1.1H, Eosinophils # (Auto) 0.0, Basophils # (Auto) 0.0, Sodium Level 136, Potassium Level 4.4, Chloride Level 101, Carbon Dioxide Level 24, Anion Gap 11, Blood Urea Nitrogen 27H, Creatinine 0.86, Estimat Glomerular Filtration Rate > 60, BUN/Creatinine Ratio 31, Glucose Level 129H, Calcium Level 9.2, Corrected Calcium 9.7, Total Bilirubin 0.6, Aspartate Amino Transf (AST/SGOT) 23, Alanine Aminotransferase (ALT/SGPT) 15, Alkaline Phosphatase 107, Total Protein 6.6, Albumin 3.4 Microbiology 01/01/20 Blood Culture - Preliminary, Resulted No growth 01/01/20 Urine Culture - Final, Complete Enterococcus faecalis 01/01/20 Influenza Types A,B Antigen (KENA) - Final, Complete Pending Labs Microbiology Date/Time Source Procedure Growth Status 01/01/20 09:42 Peripheral Peripheral, Nos Blood Culture - Preliminary No growth Resulted 01/01/20 09:35 Peripheral Lt Ac Blood Culture - Preliminary No growth Resulted 01/01/20 08:45 Urine Straight Cath, In/Out Urine Culture - Final Enterococcus faecalis Complete 01/01/20 08:45 Nasopharynx Influenza Types A,B Antigen (KENA) - Final Complete Laboratory Tests 01/01/20 08:08: White Blood Count 17.6, Red Blood Count 5.11, Hemoglobin 15.1, Hematocrit 45, Mean Corpuscular Volume 88, Mean Corpuscular Hemoglobin 30, Mean Corpuscular Hemoglobin Concent 34, Red Cell Distribution Width 15.1, Platelet Count 313, Mean Platelet Volume 10.2, Neutrophils (%) (Auto) 88, Lymphocytes (%) (Auto) 5, Monocytes (%) (Auto) 4, Eosinophils (%) (Auto) 2, Basophils (%) (Auto) 0, Neutrophils # (Auto) 15.5, Lymphocytes # (Auto) 1.0, Monocytes # (Auto) 0.7, Eosinophils # (Auto) 0.4, Basophils # (Auto) 0.0, Neutrophils % (Manual) 86, Lymphocytes % (Manual) 5, Monocytes % (Manual) 6, Eosinophils % (Manual) 3, Band Neutrophils , Blood Morphology Comment NORMAL, Prothrombin Time 14.6, INR Comment 1.1, Activated Partial Thromboplast Time 29, Sodium Level 139, Potassium Level 3.3, Chloride Level 101, Carbon Dioxide Level 25, Anion Gap 13, Blood Urea Nitrogen 9, Creatinine 0.76, Estimat Glomerular Filtration Rate > 60, BUN/Creatinine Ratio 12, Glucose Level 140, Calcium Level 9.4, Corrected Calcium 9.6, Total Bilirubin 2.4, Aspartate Amino Transf (AST/SGOT) 23, Alanine Aminotransferase (ALT/SGPT) 17, Alkaline Phosphatase 127, Total Creatine Kinase 27, B-Type Natriuretic Peptide 819.2, Total Protein 7.3, Albumin 3.8 01/01/20 08:45: Urine Color YELLOW, Urine Clarity CLEAR, Urine pH 7.0, Urine Specific [place] 1.025, Urine Protein 3+, Urine Glucose (UA) NEGATIVE, Urine Ketones NEGATIVE, Urine Nitrite NEGATIVE, Urine Bilirubin NEGATIVE, Urine Urobilinogen 0.2, Urine Leukocyte Esterase NEGATIVE, Urine RBC (Auto) TRACE-I, Urine RBC RARE, Urine WBC 10-25, Urine Squamous Epithelial Cells 0-2, Urine Crystals NONE, Urine Bacteria FEW, Urine Casts NONE, Urine Mucus NEGATIVE, Urine Culture Indicated YES 01/01/20 09:35: Lactic Acid Level 1.51 01/02/20 06:30: White Blood Count 13.7, Red Blood Count 4.18, Hemoglobin 12.3, Hematocrit 38, Mean Corpuscular Volume 91, Mean Corpuscular Hemoglobin 29, Mean Corpuscular Hemoglobin Concent 33, Red Cell Distribution Width 15.4, Platelet Count 290, Mean Platelet Volume 10.4, Neutrophils (%) (Auto) 78, Lymphocytes (%) (Auto) 11, Monocytes (%) (Auto) 7, Eosinophils (%) (Auto) 4, Basophils (%) (Auto) 0, Neutrophils # (Auto) 10.8, Lymphocytes # (Auto) 1.5, Monocytes # (Auto) 0.9, Eosinophils # (Auto) 0.5, Basophils # (Auto) 0.0, Sodium Level 137, Potassium Level 3.6, Chloride Level 104, Carbon Dioxide Level 22, Anion Gap 11, Blood Urea Nitrogen 14, Creatinine 0.72, Estimat Glomerular Filtration Rate > 60, BUN/Creatinine Ratio 19, Glucose Level 105, Calcium Level 8.6 01/03/20 04:45: White Blood Count 13.3, Red Blood Count 4.31, Hemoglobin 12.6, Hematocrit 39, Mean Corpuscular Volume 91, Mean Corpuscular Hemoglobin 29, Mean Corpuscular Hemoglobin Concent 32, Red Cell Distribution Width 15.1, Platelet Count 295, Mean Platelet Volume 10.3, Neutrophils (%) (Auto) 91, Lymphocytes (%) (Auto) 4, Monocytes (%) (Auto) 5, Eosinophils (%) (Auto) 0, Basophils (%) (Auto) 0, Neutrophils # (Auto) 12.1, Lymphocytes # (Auto) 0.6, Monocytes # (Auto) 0.6, Eosinophils # (Auto) 0.0, Basophils # (Auto) 0.0, Sodium Level 137, Potassium Level 4.3, Chloride Level 104, Carbon Dioxide Level 24, Anion Gap 9, Blood Urea Nitrogen 17, Creatinine 0.84, Estimat Glomerular Filtration Rate > 60, BUN/Creatinine Ratio 20, Glucose Level 262, Calcium Level 8.9, Corrected Calcium 9.5, Total Bilirubin 0.7, Aspartate Amino Transf (AST/SGOT) 17, Alanine Aminotransferase (ALT/SGPT) 13, Alkaline Phosphatase 104, Total Protein 6.7, Albumin 3.3 01/04/20 04:55: White Blood Count 17.8, Red Blood Count 4.15, Hemoglobin 12.3, Hematocrit 38, Mean Corpuscular Volume 91, Mean Corpuscular Hemoglobin 30, Mean Corpuscular Hemoglobin Concent 33, Red Cell Distribution Width 15.4, Platelet Count 365, Mean Platelet Volume 10.4, Neutrophils (%) (Auto) 87, Lymphocytes (%) (Auto) 7, Monocytes (%) (Auto) 6, Eosinophils (%) (Auto) 0, Basophils (%) (Auto) 0, Neutrophils # (Auto) 15.5, Lymphocytes # (Auto) 1.3, Monocytes # (Auto) 1.1, Eosinophils # (Auto) 0.0, Basophils # (Auto) 0.0, Sodium Level 136, Potassium Level 4.4, Chloride Level 101, Carbon Dioxide Level 24, Anion Gap 11, Blood Urea Nitrogen 27, Creatinine 0.86, Estimat Glomerular Filtration Rate > 60, BUN/Creatinine Ratio 31, Glucose Level 129, Calcium Level 9.2, Corrected Calcium 9.7, Total Bilirubin 0.6, Aspartate Amino Transf (AST/SGOT) 23, Alanine Aminotransferase (ALT/SGPT) 15, Alkaline Phosphatase 107, Total Protein 6.6, Albumin 3.4 Discharge Home Medications: Active Scripts Active Walker 10-325 Tablet (Hydrocodone/Acetaminophen) 1 Each Tablet 1 Tab PO Q4H PRN MDD 5 TABS Amoxicillin 500 Mg Tablet 500 Mg PO TID Reported Diltiazem 24Hr Cd (Diltiazem HCl) 240 Mg Cap.er.24h 240 Mg PO DAILY Aspercreme (Lidocaine HCl) 76.5 Gm Cream..g. 1 Applic TP Q4H PRN APPLY TO LEFT TORSO RASH Tylenol 8 Hour (Acetaminophen) 650 Mg Tablet.er 1,300 Mg PO Q8H PRN Carvedilol 6.25 Mg Tablet 6.25 Mg PO BID Melatonin 5 Mg Tablet 5 Mg PO HS PRN Meclizine HCl 25 Mg Tablet 50 Mg PO Q6H PRN Loperamide (Loperamide HCl) 2 Mg Capsule 2 Mg PO UD PRN Advair Hfa 115-21 Mcg Inhaler (Fluticasone/Salmeterol) 12 Gm Hfa.aer.ad 2 Puff IH Q12H PRN Calcium Carbonate 200 Mg Tab.chew 500 Mg PO TID PRN Potassium Chloride 20 Meq Tablet.er 20 Meq PO DAILY Furosemide 40 Mg Tablet 40 Mg PO DAILY Iprat-Albut 0.5-3(2.5) mg/3 ml (Ipratropium/Albuterol Sulfate) 3 Ml Ampul.neb 3 Ml NEB QID PRN Singulair (Montelukast Sodium) 10 Mg Tablet 10 Mg PO DAILY Senna S Tablet (Sennosides/Docusate Sodium) 1 Each Tablet 1 Tab PO BID Atorvastatin Calcium 20 Mg Tablet 20 Mg PO HS Celexa (Citalopram Hydrobromide) 20 Mg Tablet 20 Mg PO HS [Instaflex] 1 Tab PO DAILY Eliquis (Apixaban) 5 Mg Tablet 5 Mg PO BID Instructions to patient/family Please see electronic discharge instructions given to patient. Diagnosis/Problems Diagnosis/Problems (1) Closed left hip fracture Status: Acute Qualifiers: Qualified Codes: S72.002A - Fracture of unspecified part of neck of left femur, initial encounter for closed fracture (2) History of shingles (3) Dementia (4) Influenza Status: Acute (5) UTI (urinary tract infection) Status: Acute Qualifiers: Qualified Codes: N30.00 - Acute cystitis without hematuria (6) Debility Status: Acute (7) Memory loss (8) Delirium (9) Paroxysmal atrial fibrillation Status: Chronic (10) EMPHYSEMA, UNSPECIFIED Status: Chronic (11) COPD (chronic obstructive pulmonary disease) Status: Acute (12) CHF (congestive heart failure) Status: Acute Clinical Quality Measures DVT/VTE Risk/Contraindication: Risk Factor Score Per Nursin RFS Level Per Nursing on Admit: 4+=Very High JEROME NEAL DO Jan 04, 2020 10:00
[2020-01-04 10:06] VITALS: BP 145/88
--- NOTE | 2020-01-04 10:20 | NUR ---
IRF Evaluation Notified by Dr. Verde that patient will be admitting to local SNF, with the intention of being re-evaluated for ARU, in two weeks. Thank you for this referral.
[2020-01-04 12:16] VITALS: BP 147/78
--- NOTE | 2020-01-04 12:16 | NUR ---
REPORT CALLED TO TREVON BARON AT THE [facility].
--- NOTE | 2020-01-04 14:44 | NUR ---
CM/SS: Visited with daughter as to plan for discharge Plan: Pt will go to [facility] and be discharged today Summary: Daughter wants to ensure that [facility] can meet her moms needs. She request to talk to staff at [facility] and this worker calls and requests that they call her as she has questions. Her contact information is given to staff at the [facility]. Daughter is able to get connected with [facility] staff and gets her questions answered. [facility] reports they can pick remover pt today at 1:30pm Daughter is notified of the plan. She is ok with that, and was told by [facility] earlier. Pt will be discharged to [facility] at 1:30pm today.
== END 2020-01-04 14:09 | DRG 481 ==
LOC: EDUNIT# 07:52 → ER 07:53 → ICU 09:52 → 4TH 18:13
PROVIDERS: ADMIT Internal Medicine; ATTEND Internal Medicine
PROC: 0QH734Z Insertion of Internal Fixation Device into Left Upper Femur, Percutaneous Approach (ICD-10-PCS; principal; 2020-01-02 13:13)
DX: S72.012A Unspecified intracapsular fracture of left femur, initial encounter for closed fracture (principal); J10.1 Influenza due to other identified influenza virus with other respiratory manifestations; N39.0 Urinary tract infection, site not specified; I11.0 Hypertensive heart disease with heart failure; I50.22 Chronic systolic (congestive) heart failure; E11.9 Type 2 diabetes mellitus without complications; I48.0 Paroxysmal atrial fibrillation; J43.9 Emphysema, unspecified; I25.10 Atherosclerotic heart disease of native coronary artery without angina pectoris; I25.2 Old myocardial infarction; I08.1 Rheumatic disorders of both mitral and tricuspid valves; R41.0 Disorientation, unspecified; F03.90 Unspecified dementia, unspecified severity, without behavioral disturbance, psychotic disturbance, mood disturbance, and anxiety; R53.81 Other malaise; M62.830 Muscle spasm of back; D72.829 Elevated white blood cell count, unspecified; E87.6 Hypokalemia; E78.00 Pure hypercholesterolemia, unspecified; K21.9 Gastro-esophageal reflux disease without esophagitis; M19.91 Primary osteoarthritis, unspecified site; M06.9 Rheumatoid arthritis, unspecified; F41.9 Anxiety disorder, unspecified; F32.9 Major depressive disorder, single episode, unspecified; W07.XXXA Fall from chair, initial encounter; Y92.009 Unspecified place in unspecified non-institutional (private) residence as the place of occurrence of the external cause; Z99.81 Dependence on supplemental oxygen; Z95.5 Presence of coronary angioplasty implant and graft; Z87.891 Personal history of nicotine dependence; Z79.01 Long term (current) use of anticoagulants
CPT/HCPCS: 36415; 51701; 70450; 71045; 72125; 73502; 80048; 80053; 81000; 82550; 83605; 83880; 85007; 85025; 85027; 85610; 85730; 87040; 87077; 87088; 87186; 87804; 94640; 94664; 94760

== ENCOUNTER → 2020-04-04 | Outpatient (CLI) | payer MEDICARE, OTHER ==
[~2020-04-04] MED LIST changes: +ACET-2840 PO; +AMOX500T2 PO; +HYDR-4196 PO; +LIDO76.5 TP
--- NOTE | 2020-04-04 13:55 | Diagnostic Imaging Report ---
INDICATION: Follow-up left hip fracture. TIME OF EXAM: 11:08 a.m. FINDINGS: Two views of the left hip demonstrate three partially threaded screws transfixing the left femoral neck. Femoroacetabular alignment is normal. No acute fracture is seen. Left-sided rami are intact. IMPRESSION: Satisfactory postop appearance to the left hip. Dictated by: Dictated on workstation # [id number]
== END ==
LOC: ORTHO 10:48
PROVIDERS: ATTEND Orthopaedic Surgery
DX: S72.012D Unspecified intracapsular fracture of left femur, subsequent encounter for closed fracture with routine healing (principal)
CPT/HCPCS: 73502

== ENCOUNTER 2020-05-01 10:42 | Inpatient (IN) | payer MEDICARE, OTHER ==
[~2020-05-01] VITALS: Ht 157.5 cm; Wt 60.4 kg
[2020-05-01] VITALS (11 sets, daily range): BP systolic 134–179; BP diastolic 95–139
--- NOTE | 2020-05-01 10:47 | NUR ---
Pt arrives via [facility] cart from home with c/o stroke like symptoms. Upon arrival pt taken straight to CT scan accompanied by ED staff et [facility] crew.
--- NOTE | 2020-05-01 10:50 | ED 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 Problem ---
General Stated Complaint: STROKE Source: EMS Exam Limitations: no limitations History of Present Illness Date Seen by Provider: May 01, 2020 Time Seen by Provider: 10:50 Initial Comments History obtained from patient's daughter as patient is nonverbal. She has a history of congestive heart failure A. fib and dementia. On Eliquis. Had a good day yesterday, went to bed about 9 PM, went to check on her this morning between 9 and 10 AM because she was not awake and typically would be, when she awakened she didn't move the right side of her body and was nonverbal. EMS was summoned. She did miss about 3 days of her Eliquis recently because of a miscommunication daughter states. Last known well 2100 last night. Severity: moderate Allergies and Home Medications Allergies Coded Allergies: Sulfa (Sulfonamide Antibiotics) (Verified Allergy, Unknown, 12/27/17) Home Medications Acetaminophen 650 Mg Tablet.er, 1,300 MG PO Q8H PRN for PAIN-MILD (1-4), (Reported) Amoxicillin 500 Mg Tablet, 500 MG PO TID Prescribed by: JEROME NEAL on 01/04/20 0957 Apixaban 5 Mg Tablet, 5 MG PO BID, (Reported) Atorvastatin Calcium 20 Mg Tablet, 20 MG PO HS, (Reported) Calcium Carbonate 200 Mg Tab.chew, 500 MG PO TID PRN for INDIGESTION, (Reported) Carvedilol 6.25 Mg Tablet, 6.25 MG PO BID, (Reported) Citalopram Hydrobromide 20 Mg Tablet, 20 MG PO HS, (Reported) Diltiazem HCl 240 Mg Cap.er.24h, 240 MG PO DAILY, (Reported) Fluticasone/Salmeterol 12 Gm Hfa.aer.ad, 2 PUFF IH Q12H PRN for SHORTNESS OF BREATH, (Reported) Furosemide 40 Mg Tablet, 40 MG PO DAILY, (Reported) Hydrocodone/Acetaminophen 1 Each Tablet, 1 TAB PO Q4H PRN for PAIN-MODERATE Prescribed by: JEROME NEAL on 01/04/20 0957 Ipratropium/Albuterol Sulfate 3 Ml Ampul.neb, 3 ML NEB QID PRN for SHORTNESS OF BREATH, (Reported) Lidocaine HCl 76.5 Gm Cream..g., 1 APPLIC TP Q4H PRN for HERPETIC PAIN, (Reported) APPLY TO LEFT TORSO RASH Loperamide HCl 2 Mg Capsule, 2 MG PO UD PRN for DIARRHEA, (Reported) Meclizine HCl 25 Mg Tablet, 50 MG PO Q6H PRN for DIZZINESS, (Reported) Melatonin 5 Mg Tablet, 5 MG PO HS PRN for RESTLESSNESS, (Reported) Montelukast Sodium 10 Mg Tablet, 10 MG PO DAILY, (Reported) Potassium Chloride 20 Meq Tablet.er, 20 MEQ PO DAILY, (Reported) Sennosides/Docusate Sodium 1 Each Tablet, 1 TAB PO BID, (Reported) [Instaflex] , 1 TAB PO DAILY, (Reported) Patient Home Medication List Home Medication List Reviewed: Yes Review of Systems Review of Systems Constitutional: see HPI, other (unable to obtain from patient due to nonverbal at this time) Past Joqmxga-Zkdjts-Npppzp Hx Patient Social History Type Used: Cigarettes Former Smoker, Quit: Aug 27, 2004 2nd Hand Smoke Exposure: No Recent Hopitalizations: No Immunizations Up To Date Tetanus Booster (TDap): Unknown Date of Pneumonia Vaccine: Sep 17, 2015 Date of Influenza Vaccine: Jul 19, 2019 Seasonal Allergies Seasonal Allergies: No Past Medical History Surgeries: Yes (CARDIAC CATH X 3--STENTS X 4) Cardiac, Coronary Stent, Gallbladder, Tubal Ligation Respiratory: Yes Pneumonia, COPD Currently Using CPAP: No Currently Using BIPAP: No Cardiac: Yes (CHF; CARDIAC CATHS X 3 WITH STENTS X 4) Atrial Fibrillation, Coronary Artery Disease, High Cholesterol, Hypertension 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: No Dementia RN LICENSED PRACTICAL History: Menopausal Sexually Transmitted Disease: No HIV/AIDS: No Genitourinary: No Bladder Infection Gastrointestinal: No Gastroesophageal Reflux Musculoskeletal: Yes Arthritis, Rheumatoid Arthritis, Chronic Back Pain Endocrine: No HEENT: Yes (ONGOING PROBLEMS WITH "CLICKING" NOISE IN LEFT EAR. ) Loss of Vision: Denies Cancer: No Psychosocial: Yes Anxiety, Depression Integumentary: No Blood Disorders: No Adverse Reaction/Blood Tranf: No Family Medical History Cardiovascular disease 19 MOTHER Diabetes mellitus 19 MOTHER Hypertension 19 MOTHER No Pertinent Family Hx LONG HISTORY OF NON-COMPLIANCE Physical Exam Vital Signs Vital Signs - First Documented 05/01/20 05/01/20 10:47 11:00 Temp 36.2 Pulse 90 Resp 20 B/P (MAP) 171/109 (129) Pulse Ox 96 O2 Delivery Nasal Cannula O2 Flow Rate 2.00 Capillary Refill : Height, Weight, BMI Height: 5'4.00" Weight: 170lbs. 0oz. 77.201538kg; 29.72 BMI Method:Stated General Appearance: WD/WN, no apparent distress HEENT: other (eyes deviated to left) Respiratory: no respiratory distress, no accessory muscle use Cardiovascular: tachycardia, irregularly irregular Gastrointestinal: normal bowel sounds, non tender, soft Neurologic/Psychiatric: alert [place] Nerves: normal hearing Skin: normal color, warm/dry Stroke Onset of Symptoms Date of Onset of Symptoms: May 01, 2020 Time of Symptom Onset: 11:07 Symptoms onset unknown: Yes NIH Stroke Scale Assessment Select: Initial Level of Consciousness: 0=Alert (0), Level of Consciousness- Questions: 2=Answer neither question (2), LOC Commands: 1=Performs one task (1), Gaze: Partial Gaze Palsy (1), Facial Movement (Facial Paresis): 3=Complete paralysis (3), Motor Function-Arms Right: 3=No effort/gravity (3), Motor Function-Arms Left: 0=No drift (0), Motor Function-Legs Right: 3=No effort/gravity (3), Motor Function-Legs Left: 0=No drift (0), Dysarthria: 2=Severe dysarthria (2), Extinction & Inattention: 2=ProfoundHemiInattention (2), Total: 17 Stroke Thrombolytic Exclusion Age 18 or Over: Yes Acute intenal hemorrhage: No History of CVA: No Uncontrolled Coagulation Defec: No Intracranial Hemorrhage: No Severe Hypertension: No GI or Bleed: No Subarachnoid Hemorrhage: No Intracranial Neoplasm/Aneurysm: No Oral Anticoagulants: Yes Surgery or Trauma: No Puncture of Non-Compressible V: No Recent CPR: No Diabetic Hemorrhagic Retinopat: No Organ Biopsy: No Recent Obstetric Delivery: No Glucose: No Significant Hepatic Dysfunctio: No NIH Stoke Scale >22: No Bacterial Endocarditis: No Pericarditis: No Improving Symptoms: Yes Platelets: No TPA Contraindication: No IV - TPa Received IV - TPa Procedure Performed?: No NIH Stroke Scale NIH : Select: Post CT Level of Consciousness: 0=Alert Level of Consciousness-Questio: 1=Answers one question LOC Commands: 1=Performs one task Facial Movement (Facial Paresi: 3=Complete paralysis Motor Function-Arms Right: 3=No effort/gravity Motor Function-Arms Left: 0=No drift Motor Function-Legs Right: 0=No drift Motor Function-Legs Left: 0=No drift Limb Ataxia: 1=Present in one limb Dysarthria: 2=Severe dysarthria Extinction & Inattention: 2=ProfoundHemiInattention Progress/Results/Core Measures Results/Orders Lab Results Laboratory Tests Test 05/01/20 10:55 05/01/20 11:28 05/01/20 11:31 Range/Units Urine Color YELLOW Urine Clarity CLEAR Urine pH 8.5 5-9 Urine Specific [place] 1.010 L 1.016-1.022 Urine Protein NEGATIVE NEGATIVE Urine Glucose (UA) NEGATIVE NEGATIVE Urine Ketones NEGATIVE NEGATIVE Urine Nitrite NEGATIVE NEGATIVE Urine Bilirubin NEGATIVE NEGATIVE Urine Urobilinogen 0.2 < = 1.0 MG/DL Urine Leukocyte Esterase NEGATIVE NEGATIVE Urine RBC (Auto) 2+ H NEGATIVE Urine RBC 5-10 H /HPF Urine WBC RARE /HPF Urine Squamous Epithelial Cells RARE /HPF Urine Crystals PRESENT H /LPF Urine Amorphous Sediment FEW WALDEMAR PHOSPHATE H /LPF Urine Bacteria TRACE /HPF Urine Casts NONE /LPF Urine Mucus NEGATIVE /LPF Urine Culture Indicated NO White Blood Count 10.2 4.3-11.0 10^3/uL Red Blood Count 4.83 4.35-5.85 10^6/uL Hemoglobin 14.3 11.5-16.0 G/DL Hematocrit 43 35-52 % Mean Corpuscular Volume 89 80-99 FL Mean Corpuscular Hemoglobin 30 25-34 PG Mean Corpuscular Hemoglobin Concent 33 32-36 G/DL Red Cell Distribution Width 14.1 10.0-14.5 % Platelet Count 266 130-400 10^3/uL Mean Platelet Volume 9.8 7.4-10.4 FL Neutrophils (%) (Auto) 77 H 42-75 % Lymphocytes (%) (Auto) 15 12-44 % Monocytes (%) (Auto) 6 0-12 % Eosinophils (%) (Auto) 2 0-10 % Basophils (%) (Auto) 1 0-10 % Neutrophils # (Auto) 7.9 H 1.8-7.8 X 10^3 Lymphocytes # (Auto) 1.5 1.0-4.0 X 10^3 Monocytes # (Auto) 0.6 0.0-1.0 X 10^3 Eosinophils # (Auto) 0.2 0.0-0.3 10^3/uL Basophils # (Auto) 0.1 0.0-0.1 10^3/uL Prothrombin Time 13.8 12.2-14.7 SEC INR Comment 1.0 0.8-1.4 Activated Partial Thromboplast Time 30 24-35 SEC D-Dimer 1.57 H 0.00-0.49 UG/ML Sodium Level 140 135-145 MMOL/L Potassium Level 3.8 3.6-5.0 MMOL/L Chloride Level 103 98-107 MMOL/L Carbon Dioxide Level 26 21-32 MMOL/L Anion Gap 11 5-14 MMOL/L Blood Urea Nitrogen 13 7-18 MG/DL Creatinine 0.76 0.60-1.30 MG/DL Estimat Glomerular Filtration Rate > 60 BUN/Creatinine Ratio 17 Glucose Level 107 H 70-105 MG/DL Calcium Level 9.4 8.5-10.1 MG/DL Corrected Calcium 9.6 8.5-10.1 MG/DL Total Bilirubin 1.4 H 0.1-1.0 MG/DL Aspartate Amino Transf (AST/SGOT) 28 5-34 U/L Alanine Aminotransferase (ALT/SGPT) 26 0-55 U/L Alkaline Phosphatase 149 H 40-136 U/L Troponin I < 0.028 <0.028 NG/ML B-Type Natriuretic Peptide 425.4 H <100.0 PG/ML Total Protein 7.2 6.4-8.2 GM/DL Albumin 3.8 3.2-4.5 GM/DL Glucometer 103 70-110 MG/DL My Orders Orders - JACQUE ESPINOSA APRN Cbc With Automated Diff (05/01/20 10:46) Protime With Inr (05/01/20 10:46) Partial Thromboplastin Time (05/01/20 10:46) Comprehensive Metabolic Panel (05/01/20 10:46) Fibrin Degradation Products (05/01/20 10:46) Troponin I (05/01/20 10:46) Ua Culture If Indicated (05/01/20 10:46) Chest 1 View, Ap/Pa Only (05/01/20 10:46) Catheter(Urinary) Insert & Ass ,15 (05/01/20 10:46) Ekg Tracing (7/15/20 10:46) Nothing By Mouth (05/01/20 Lunch) Accucheck Stat ONCE (05/01/20 10:46) Ed Iv/Invasive Line Start (05/01/20 10:46) Ed Iv/Invasive Line Start (05/01/20 10:46) Vital Signs Stroke Patient Q15M (05/01/20 10:46) O2 (05/01/20 10:46) Intake & Output 06,14,22 (05/01/20 10:46) Monitor-Rhythm Ecg Trace Only (05/01/20 10:46) Dysphagia Screening Tool (05/01/20 10:46) Post Thrombolytic Adminstratio (05/01/20 10:46) Lipid Panel (05/02/20 06:00) Ct Angio Head/Neck (05/01/20 10:46) Furosemide Injection (Lasix Injection) (05/01/20 11:30) BNP (05/01/20 11:21) Mri Brain W/O Contrast (05/01/20 11:45) Medications Given in ED Current Medications Medications Dose Ordered Sig/Kadeem Route Start Time Stop Time Status Last Admin Dose Admin Furosemide 40 mg ONCE ONCE IVP 05/01/20 11:30 05/01/20 11:31 DC 05/01/20 11:57 40 MG Iohexol 75 ml ONCE ONCE IV 05/01/20 11:15 05/01/20 11:23 DC 05/01/20 11:09 75 ML Sodium Chloride 100 ml ONCE ONCE IV 05/01/20 11:15 05/01/20 11:23 DC 05/01/20 11:10 80 ML Vital Signs/I&O 05/01/20 05/01/20 10:47 11:00 Temp 36.2 Pulse 90 Resp 20 B/P (MAP) 171/109 (129) Pulse Ox 96 96 O2 Delivery Nasal Cannula Nasal Cannula O2 Flow Rate 2.00 2.00 Diagnostic Imaging Diagonstic Imaging: Xray Comments NAME: GARCIAKELLEY J MED REC#: [id number] PT STATUS: REG ER : 1945 PHYSICIAN: JACQUE ESPINOSA PROTECTION AGENT ADMIT DATE: 05/01/20/ER Signed Date of Exam:05/01/20 CHEST 1 VIEW, AP/PA ONLY Indication: CVA Portable chest 11:14 AM There is cardiomegaly with pulmonary vascular congestion. There are no effusions or pneumothoraces. There is some pulmonary edema. IMPRESSION: Congestive heart failure Dictated by: Dictated on workstation # [id number] Dict: 05/01/20 1112 Trans: 05/01/20 1113 [id number] Interpreted by: PATRICIA GARCIA MD Electronically signed by: PATRICIA GARCIA MD 05/01/20 1113 NAME: KELLEY GARCIA [facility] REC#: [id number] PT STATUS: REG ER : 1945 PHYSICIAN: JACQUE ESPINOSA APRN ADMIT DATE: 05/01/20/ER Draft Date of Exam:05/01/20 CT ANGIO HEAD/NECK PROCEDURE: CT angiography of the head and CT angiography of the neck with and without contrast. TECHNIQUE: Contiguous noncontrast images were obtained from the skull base through the vertex. After intravenous contrast administration, helical CT angiography of the neck was performed. Source data was reformatted into 3D MIP projections. Delayed post contrast acquisition was also obtained. Auto Exposure Controls were utilized during the CT exam to meet ALARA standards for radiation dose reduction. INDICATION: Stroke. COMPARISON: CT head without contrast 01/01/2020. FINDINGS: Noncontrast head CT demonstrates advanced generalized cerebral and cerebellar parenchymal volume loss. Advanced leukoaraiosis. Chronic appearing lacunar infarct in the deep white matter of the left frontal lobe is similar to the prior. There is also chronic lacunar infarct in the right basal ganglia. Intracranial vascular calcifications. No CT evidence of an acute territorial infarction. No intracranial hemorrhage, mass effect, hydrocephalus or extra-axial fluid collections. Osseous structures are intact. The visualized paranasal sinuses and mastoids are clear. CTA demonstrates a conventional aortic arch. Retropharyngeal course of the carotid arteries bilaterally. The basilar, bilateral vertebral, internal carotid, common carotid, anterior cerebral, middle cerebral and posterior cerebral arteries are widely patent without evidence of aneurysm or dissection. The dural venous sinuses are grossly patent. Moderate to advanced spondylotic changes in the cervical spine without acute findings. Visualized paravertebral soft tissues are unremarkable. The lung apices are clear allowing for the motion artifact. IMPRESSION: 1. No acute intracranial CT findings. 2. Chronic infarcts in the left frontal lobe and right basal ganglia. 3. Advanced generalized parenchymal volume loss and leukoaraiosis. 4. No high-grade narrowing, aneurysm or dissection involving major arteries in the head and neck. Dictated on workstation # [id number] Dict: 05/01/20 1115 Trans: 05/01/20 1130 SA [id number] Interpreted by: ANGELA ANDREWS MD Electronically signed by: NAME: KELLEY GARCIA [facility] REC#: [id number] PT STATUS: ADM IN : 1945 PHYSICIAN: JACQUE ESPINOSA APRN ADMIT DATE: 05/01/20/ICU Draft Date of Exam:05/01/20 MRI BRAIN W/O CONTRAST PROCEDURE: MR imaging of the brain without contrast. TECHNIQUE: Multiplanar, multisequence MR imaging of the brain was performed without contrast. INDICATION: Weakness. Unable to speak. Concern for stroke. Comparison: CTA head and neck on 05/01/2020. Findings: An area of acute/subacute ischemia is seen involving the left insular cortex and left rushing radiata. No associated hemorrhage or mass effect is seen. Old lacunar infarct is seen in the right rushing radiata. Chronic microvascular disease is seen in the periventricular and subcortical white matter. The ventricles and cortical sulci are diffusely prominent. The basilar cisterns are symmetric and unremarkable. There is flattening of the pituitary. The major intracranial flow voids are intact. The brainstem and posterior fossa are unremarkable. The paranasal sinuses and mastoid air cells demonstrate normal signal characteristics. The globes and orbits are symmetric and unremarkable. The scalp and calvarium have a normal appearance. Impression: 1. Focus of acute/subacute ischemia involving the left insular cortex and left rushing radiata. No associated hemorrhage or mass effect. 2. Chronic microvascular disease. 3. Generalized parenchymal volume loss. Findings were discussed with Dr. Espinosa at 12:50 PM on 05/01/[address] Bushra Gordon. Dictated on workstation # [id number] Dict: 05/01/20 1241 Trans: 05/01/20 1257 [id number] Interpreted by: BUSHRA GORDON DO Electronically signed by: Departure Communication (Admissions) Time/Spoke to Admitting Phy: 12:22 Dr. Neal will admit, Dr. Bermudez will consult 1221-now has use of her right leg, she can lift it up off the bed with full strength. She does not qualify for TPA because of the Eliquis use and her symptoms are improving. CT scan is unremarkable which was surprising given the degree of deficit on clinical exam upon arrival. She is now over for MRI. Vitals are stable. Oxygen about 82% on room air with waveform, given 2 L at up to 97%. Impression Primary Impression: Left-sided cerebrovascular accident (CVA) Additional Impression: Atrial fibrillation Disposition: ADMITTED INPATIENT Condition: Stable Admissions Decision to Admit Reason: Admit from ER (General) Decision to Admit/Date: May 01, 2020 Time/Decision to Admit Time: 12:00 Departure-Patient Inst. Referrals: JEROME NEAL DO (PCP/Family) Primary Care Physician JACQUE ESPINOSA APRN May 01, 2020 10:50
--- NOTE | 2020-05-01 11:14 | Diagnostic Imaging Report ---
Indication: CVA Portable chest 11:14 AM There is cardiomegaly with pulmonary vascular congestion. There are no effusions or pneumothoraces. There is some pulmonary edema. IMPRESSION: Congestive heart failure Dictated by: Dictated on workstation # [id number]
[2020-05-01] MEDS ORDERED: NS 100 ML (IVPB) BAG IV ONE (11:15)
[2020-05-01] MEDS ORDERED: HOLD METFORMIN - RECEIVED CONTRAST 20 ML VIAL IV SCH (11:15)
[2020-05-01] MEDS ORDERED: IOHEXOL 350 MG/ML 100 ML (OMNIPAQUE 350) VIAL IV ONE (11:15)
[2020-05-01 11:28] LABS: BILIRUBIN,URINE NEGATIVE (NEGATIVE); CLARITY,URINE CLEAR; COLOR,URINE YELLOW; GLUCOSE, URINE (UA) NEGATIVE (NEGATIVE); KETONES,URINE NEGATIVE (NEGATIVE); LEUKOCYTE ESTERASE ,URINE NEGATIVE (NEGATIVE); NITRITE,URINE NEGATIVE (NEGATIVE); PH,URINE 8.5 (5-9); PROTEIN,URINE NEGATIVE (NEGATIVE)
[2020-05-01] MEDS ORDERED: FUROSEMIDE 40 MG/4 ML INJ (LASIX) IVP ONE (11:30)
--- NOTE | 2020-05-01 11:30 | Diagnostic Imaging Report ---
PROCEDURE: CT angiography of the head and CT angiography of the neck with and without contrast. TECHNIQUE: Contiguous noncontrast images were obtained from the skull base through the vertex. After intravenous contrast administration, helical CT angiography of the neck was performed. Source data was reformatted into 3D MIP projections. Delayed post contrast acquisition was also obtained. Auto Exposure Controls were utilized during the CT exam to meet ALARA standards for radiation dose reduction. INDICATION: Stroke. COMPARISON: CT head without contrast 01/01/2020. FINDINGS: Noncontrast head CT demonstrates advanced generalized cerebral and cerebellar parenchymal volume loss. Advanced leukoaraiosis. Chronic appearing lacunar infarct in the deep white matter of the left frontal lobe is similar to the prior. There is also chronic lacunar infarct in the right basal ganglia. Intracranial vascular calcifications. No CT evidence of an acute territorial infarction. No intracranial hemorrhage, mass effect, hydrocephalus or extra-axial fluid collections. Osseous structures are intact. The visualized paranasal sinuses and mastoids are clear. CTA demonstrates a conventional aortic arch. Retropharyngeal course of the carotid arteries bilaterally. The basilar, bilateral vertebral, internal carotid, common carotid, anterior cerebral, middle cerebral and posterior cerebral arteries are widely patent without evidence of aneurysm or dissection. The dural venous sinuses are grossly patent. Moderate to advanced spondylotic changes in the cervical spine without acute findings. Visualized paravertebral soft tissues are unremarkable. The lung apices are clear allowing for the motion artifact. IMPRESSION: 1. No acute intracranial CT findings. 2. Chronic infarcts in the left frontal lobe and right basal ganglia. 3. Advanced generalized parenchymal volume loss and leukoaraiosis. 4. No high-grade narrowing, aneurysm or dissection involving major arteries in the head and neck. Dictated by: Dictated on workstation # [id number]
[2020-05-01 11:39] LABS: AMORPHOUS SEDIMENT,UR FEW AMOR PHOSPHATE /LPF; BACTERIA,URINE TRACE /HPF; SQUAMOUS EPITHELIAL CELL,UR RARE /HPF; WBC,URINE RARE /HPF
[2020-05-01 11:40] LABS: BASOPHILS # (AUTO) 0.1 10^3/uL (0.0-0.1); BASOPHILS % (AUTO) 1 % (0-10); EOSINOPHILS # (AUTO) 0.2 10^3/uL (0.0-0.3); EOSINOPHILS % (AUTO) 2 % (0-10); HEMATOCRIT 43 % (35-52); HEMOGLOBIN 14.3 G/DL (11.5-16.0); LYMPHOCYTES # (AUTO) 1.5 X 10^3 (1.0-4.0); LYMPHOCYTES % (AUTO) 15 % (12-44); MEAN CORPUSCULAR HEMOGLOBIN 30 PG (25-34); MEAN CORPUSCULAR HGB CONC 33 G/DL (32-36); MEAN CORPUSCULAR VOLUME 89 FL (80-99); MEAN PLATELET VOLUME 9.8 FL (7.4-10.4); MONOCYTES # (AUTO) 0.6 X 10^3 (0.0-1.0); MONOCYTES % (AUTO) 6 % (0-12); NEUTROPHILS # (AUTO) 7.9 X 10^3 (1.8-7.8); NEUTROPHILS % (AUTO) 77 % (42-75); PLATELET COUNT 266 10^3/uL (130-400); RED CELL DISTRIBUTION WIDTH 14.1 % (10.0-14.5); WHITE BLOOD COUNT 10.2 10^3/uL (4.3-11.0)
[2020-05-01 11:57] LABS: ALBUMIN 3.8 GM/DL (3.2-4.5); CHLORIDE 103 MMOL/L (98-107); FIBRIN DEGRADATION PRODUCTS 1.57 UG/ML (0.00-0.49); POTASSIUM 3.8 MMOL/L (3.6-5.0); PROTHROMBIN TIME PATIENT 13.8 SEC (12.2-14.7); SODIUM 140 MMOL/L (135-145)
[2020-05-01 11:58] LABS: CALCIUM 9.4 MG/DL (8.5-10.1)
[2020-05-01 11:59] LABS: GLUCOSE 107 MG/DL (70-105); TOTAL PROTEIN 7.2 GM/DL (6.4-8.2)
[2020-05-01 12:00] LABS: CARBON DIOXIDE 26 MMOL/L (21-32)
[2020-05-01 12:01] LABS: BILIRUBIN,TOTAL 1.4 MG/DL (0.1-1.0)
[2020-05-01 12:03] LABS: ALKALINE PHOSPHATASE 149 U/L (40-136); CREATININE SERUM 0.76 MG/DL (0.60-1.30); GFR ESTIMATED > 60
[2020-05-01 12:04] LABS: BUN/CREATININE RATIO 17
[2020-05-01 12:06] LABS: ALANINE AMINOTRANSFERASE 26 U/L (0-55)
--- NOTE | 2020-05-01 12:25 | NUR ---
Provider speaking with family at this time.
--- OUTSIDE RECORDS SUMMARY | 2020-05-01 12:35 | XMS REPORT | Continuity of Care Document ---
Author Organization Unknown Address Unknown Phone Unavailable Allergies Active Description Code Type Severity Reaction Onset Reported/Identified Relationship to Patient Clinical Status Yes No Known Drug Allergies [id number] Drug Allergy Unknown N/A 08/27/2016 Yes egg [id number] Drug Allergy Unknown N/A 12/27/2017 Yes Sulfa (Sulfonamide Antibiotics) [id number] Drug Allergy Unknown N/A 018 Medications There is no data. Problems Date Dx Coded Attending Type Code Diagnosis Diagnosed By 08/27/2016 JEROME NEAL DO Ot E78.00 PURE HYPERCHOLESTEROLEMIA, UNSPECIFIED 08/27/2016 JEROME NEAL DO Ot I10 ESSENTIAL (PRIMARY) HYPERTENSION 08/27/2016 JEROME NEAL DO Ot I25.10 ATHSCL HEART DISEASE OF [place] CORONARY 08/27/2016 JEROME NEAL DO Ot I25.2 OLD MYOCARDIAL INFARCTION 08/27/2016 JEROME NEAL DO Ot I48.2 CHRONIC ATRIAL FIBRILLATION 08/27/2016 JEROME NEAL DO Ot J18.9 PNEUMONIA, UNSPECIFIED ORGANISM 08/27/2016 JASIEL NEAL DOI Ot R09.02 HYPOXEMIA 08/27/2016 JEROME NEAL DO Ot R53.1 WEAKNESS 08/27/2016 JEROME NEAL DO Ot R74.8 ABNORMAL LEVELS OF OTHER SERUM ENZYMES 08/27/2016 JEROME NEAL DO Ot Z79.89 9 OTHER RESIDENTIAL (CURRENT) DRUG THERAPY 08/27/2016 JEROME NEAL DO Ot Z87.89 1 PERSONAL HISTORY OF NICOTINE DEPENDENCE 08/27/2016 JEROME NEAL DO Ot Z95.5 PRESENCE OF CORONARY ANGIOPLASTY IMPLANT 08/28/2016 JEROME NEAL DO Ot E78.00 PURE HYPERCHOLESTEROLEMIA, UNSPECIFIED 08/28/2016 JEROME NEAL DO Ot I10 ESSENTIAL (PRIMARY) HYPERTENSION 08/28/2016 JEROME NEAL DO Ot I25.10 ATHSCL HEART DISEASE OF [place] CORONARY 08/28/2016 NEAL DO, JEROME Ot I25.2 OLD MYOCARDIAL INFARCTION 08/28/2016 JASIEL NEAL DOI Ot I48.2 CHRONIC ATRIAL FIBRILLATION 08/28/2016 JASIEL NEAL DOI Ot J18.9 PNEUMONIA, UNSPECIFIED ORGANISM 08/28/2016 JASIEL NEAL DOI Ot R09.02 HYPOXEMIA 08/28/2016 JASIEL NEAL DOI Ot R53.1 WEAKNESS 08/28/2016 JASIEL NEAL DOI Ot R74.8 ABNORMAL LEVELS OF OTHER SERUM ENZYMES 08/28/2016 JASIEL NEAL DOI Ot Z79.89 9 OTHER RESIDENTIAL (CURRENT) DRUG THERAPY 08/28/2016 VAL SERRANO JEROME Ot Z87.89 1 PERSONAL HISTORY OF NICOTINE DEPENDENCE 08/28/2016 JASIEL NEAL DOI Ot Z95.5 PRESENCE OF CORONARY ANGIOPLASTY IMPLANT 08/28/2016 JASIEL NEAL DOI Ot E78.00 PURE HYPERCHOLESTEROLEMIA, UNSPECIFIED 08/28/2016 JASIEL NEAL DOI Ot F32.9 MAJOR DEPRESSIVE DISORDER, SINGLE EPISOD 08/28/2016 JASIEL NEAL DOI Ot I10 ESSENTIAL (PRIMARY) HYPERTENSION 08/28/2016 JASIEL NEAL DOI Ot I25.10 ATHSCL HEART DISEASE OF [place] CORONARY 08/28/2016 JASIEL NEAL DOI Ot I25.2 [...] ABNORMAL LEVELS OF OTHER SERUM ENZYMES 08/28/2016 JASIEL NEAL DOI Ot Z79.89 9 OTHER BAGEL MAKER (CURRENT) DRUG THERAPY 08/28/2016 JASIEL NEAL DOI Ot Z87.89 1 PERSONAL HISTORY OF NICOTINE DEPENDENCE 08/28/2016 JASIEL NEAL DOI Ot Z95.5 PRESENCE OF CORONARY ANGIOPLASTY IMPLANT 08/29/2016 JASIEL NEAL DOI Ot A41.9 SEPSIS, UNSPECIFIED ORGANISM 08/29/2016 JASIEL NEAL DOI Ot E11.9 TYPE 2 DIABETES MELLITUS WITHOUT COMPLIC 08/29/2016 JASIEL NEAL DOI Ot E78.00 PURE HYPERCHOLESTEROLEMIA, UNSPECIFIED 08/29/2016 JASIEL NEAL DOI Ot F32.9 MAJOR DEPRESSIVE DISORDER, SINGLE EPISOD 08/29/2016 VAL SERRANO JEROME Ot I08.1 RHEUMATIC DISORDERS OF BOTH MITRAL AND T 08/29/2016 VAL SERRANO JEROME Ot I10 ESSENTIAL (PRIMARY) HYPERTENSION 08/29/2016 VAL SERRANO JEROME Ot I25.10 ATHSCL HEART DISEASE OF [place] CORONARY 08/29/2016 VAL SERRANO JEROME Ot I25.2 OLD MYOCARDIAL INFARCTION 08/29/2016 VAL SERRANO JEROME Ot I48.1 PERSISTENT ATRIAL FIBRILLATION 08/29/2016 VAL SERRANO JEROME Ot I48.2 CHRONIC ATRIAL FIBRILLATION 08/29/2016 JASIEL NEAL DOI Ot J18.9 PNEUMONIA, UNSPECIFIED ORGANISM 08/29/2016 JASIEL NEAL DOI Ot J44.0 CHRONIC OBSTRUCTIVE PULMON DISEASE W ACU 08/29/2016 JASIEL NEAL DOI Ot M06.9 RHEUMATOID ARTHRITIS, UNSPECIFIED 08/29/2016 JASIEL NEAL DOI Ot R09.02 HYPOXEMIA 08/29/2016 JASIEL NEAL DOI Ot R53.1 WEAKNESS 08/29/2016 JASIEL NEAL DOI Ot R74.8 ABNORMAL LEVELS OF OTHER SERUM ENZYMES 08/29/2016 JASIEL ENAL DOI Ot Z79.89 9 OTHER BAGEL MAKER (CURRENT) DRUG THERAPY 08/29/2016 JASIEL NEAL DOI Ot Z87.89 1 PERSONAL HISTORY OF NICOTINE DEPENDENCE 08/29/2016 JASIEL NEAL DOI Ot Z95.5 PRESENCE OF CORONARY ANGIOPLASTY IMPLANT 12/18/2016 JASIEL NEAL DOI Ot E11.9 TYPE 2 DIABETES MELLITUS WITHOUT COMPLIC 12/18/2016 JASIEL NEAL DOI Ot I11.0 HYPERTENSIVE HEART DISEASE WITH HEART FA 12/18/2016 VAL SERRANO JEROME Ot I25.10 ATHSCL HEART DISEASE OF [place] CORONARY 12/18/2016 VAL SERRANO JEROME Ot I25.2 OLD MYOCARDIAL INFARCTION 12/18/2016 VAL SERRANO JEROME Ot I48.2 CHRONIC ATRIAL FIBRILLATION 12/18/2016 JEROME [...] UNSPECIFIED 12/18/2016 JEROME NEAL DO Ot Z79.01 RESIDENTIAL (CURRENT) USE OF ANTICOAGULANT 12/18/2016 JEROME NEAL DO Ot Z79.02 BAGEL MAKER (CURRENT) USE OF ANTITHROMBOTI 12/18/2016 JEROME NEAL DO Ot Z79.89 9 OTHER BAGEL MAKER (CURRENT) DRUG THERAPY 12/18/2016 JEROME NEAL DO Ot Z87.89 1 PERSONAL HISTORY OF NICOTINE DEPENDENCE 12/18/2016 JEROME NEAL DO Ot Z91.12 0 PT INTENTL UNDRDOSE OF MEDS REGIMEN DUE 12/28/2016 JEROME NEAL DO Ot A41.50 GRAM-NEGATIVE SEPSIS, UNSPECIFIED 12/28/2016 JEROME NEAL DO Ot E03.9 HYPOTHYROIDISM, UNSPECIFIED 12/28/2016 JASIEL NEAL DOI Ot E11.9 TYPE 2 DIABETES MELLITUS WITHOUT COMPLIC 12/28/2016 JEROME NEAL DO Ot E78.00 PURE HYPERCHOLESTEROLEMIA, UNSPECIFIED 12/28/2016 JASIEL NEAL DOI Ot E87.6 HYPOKALEMIA 12/28/2016 JEROME NEAL DO Ot F32.9 MAJOR DEPRESSIVE DISORDER, SINGLE EPISOD 12/28/2016 JEROME NEAL DO Ot F41.9 ANXIETY DISORDER, UNSPECIFIED 12/28/2016 JASIEL NEAL DOI Ot I11.0 HYPERTENSIVE HEART DISEASE WITH HEART FA 12/28/2016 JEROME NEAL DO Ot I25.10 ATHSCL HEART DISEASE OF [place] CORONARY 12/28/2016 JEROME NEAL DO Ot I25.2 [...] ARTHRITIS, UNSPECIFIED 12/28/2016 JEROME NEAL DO Ot Z79.89 9 OTHER RESIDENTIAL (CURRENT) DRUG THERAPY 12/28/2016 JEROME NEAL DO Ot Z87.89 1 PERSONAL HISTORY OF NICOTINE DEPENDENCE 12/28/2016 JEROME NEAL DO Ot Z91.12 0 PT INTENTL UNDRDOSE OF MEDS REGIMEN DUE 12/28/2016 JEROME NEAL DO Ot Z95.5 PRESENCE OF CORONARY ANGIOPLASTY IMPLANT 01/26/2017 JEROME NEAL DO Ot I25.10 ATHSCL HEART DISEASE OF [place] CORONARY 01/26/2017 JEROME NEAL DO Ot I48.91 UNSPECIFIED ATRIAL FIBRILLATION 01/26/2017 JEROME NEAL DO Ot J18.9 PNEUMONIA, UNSPECIFIED ORGANISM 01/26/2017 JEROME NEAL DO Ot J44.9 CHRONIC OBSTRUCTIVE PULMONARY DISEASE, U 01/26/2017 JEROME NEAL DO Ot M06.9 RHEUMATOID ARTHRITIS, UNSPECIFIED 01/26/2017 JEROME NEAL DO Ot Z95.5 PRESENCE OF CORONARY ANGIOPLASTY IMPLANT 02/25/2017 JEWEL THAKKAR DO Ot E78. 4 OTHER HYPERLIPIDEMIA 02/25/2017 JEWEL THAKKAR DO Ot I10 ESSENTIAL (PRIMARY) HYPERTENSION 02/25/2017 JEWEL THAKKAR DO Ot J18. 9 PNEUMONIA, UNSPECIFIED ORGANISM 02/25/2017 JEWEL THAKKAR DO Ot R06. 00 DYSPNEA, UNSPECIFIED 02/25/2017 JEWEL THAKKAR DO Ot E78. 4 OTHER HYPERLIPIDEMIA 02/25/2017 JEWEL THAKKAR DO Ot I10 ESSENTIAL (PRIMARY) HYPERTENSION 02/25/2017 JEWEL THAKKAR DO Ot J18. 9 PNEUMONIA, UNSPECIFIED ORGANISM 02/25/2017 JEWEL THAKKAR DO Ot R06. 00 DYSPNEA, UNSPECIFIED 03/02/2017 VAL DOJEROME Ot N63 UNSPECIFIED LUMP IN BREAST 03/03/2017 ERIC REIS APRN Ot R06.02 SHORTNESS OF BREATH 03/03/2017 ERIC REIS APRN Ot Z87.891 PERSONAL HISTORY OF NICOTINE DEPENDENCE 03/04/2017 VAL DO JEROME Ot N63 UNSPECIFIED LUMP IN BREAST 03/04/2017 VAL DOJASIELI Ot N63 UNSPECIFIED LUMP IN BREAST 03/10/2017 VAL SERRANO JEROME Ot I25.10 ATHSCL HEART DISEASE OF [place] CORONARY 03/10/2017 VAL DO JEROME Ot I48.91 UNSPECIFIED ATRIAL FIBRILLATION 03/10/2017 JEROME NEAL DO Ot J18.9 PNEUMONIA, UNSPECIFIED ORGANISM 03/10/2017 VLA SERRANO JEROME Ot J44.9 CHRONIC OBSTRUCTIVE PULMONARY DISEASE, U 03/10/2017 JEROME NEAL DO Ot M06.9 RHEUMATOID ARTHRITIS, UNSPECIFIED 03/10/2017 VAL SERRANO JEROME Ot Z95.5 PRESENCE OF CORONARY ANGIOPLASTY IMPLANT 03/25/2017 JEROME NEAL DO Ot N63 UNSPECIFIED LUMP IN BREAST 03/29/2017 JEWEL THAKKAR DO Ot E78. 4 OTHER HYPERLIPIDEMIA 03/29/2017 JEWEL THAKKAR DO Ot I10 ESSENTIAL (PRIMARY) HYPERTENSION 03/29/2017 JEWEL THAKKAR DO Ot J18. 9 PNEUMONIA, UNSPECIFIED ORGANISM 03/29/2017 JEWEL THAKKAR DO Ot R06. 00 DYSPNEA, UNSPECIFIED 04/25/2017 JEROME NEAL DO Ot I25.10 ATHSCL HEART DISEASE OF [place] CORONARY 04/25/2017 JEROME NEAL DO Ot I48.91 UNSPECIFIED ATRIAL FIBRILLATION 04/25/2017 JEROME NEAL DO Ot J18.9 PNEUMONIA, UNSPECIFIED ORGANISM 04/25/2017 VAL SERRANO JEROME Ot J44.9 CHRONIC OBSTRUCTIVE PULMONARY DISEASE, U 04/25/2017 VAL SERRANO JEROME Ot M06.9 RHEUMATOID ARTHRITIS, UNSPECIFIED 04/25/2017 VAL SERRANO JEROME Ot Z95.5 PRESENCE OF CORONARY ANGIOPLASTY IMPLANT 04/26/2017 VAL SERRANO JEROME Ot I25.10 ATHSCL HEART DISEASE OF [place] CORONARY 04/26/2017 NEAL DO, JEROME Ot I48.91 UNSPECIFIED ATRIAL FIBRILLATION 04/26/2017 NEAL DO, JEROME Ot J18.9 PNEUMONIA, UNSPECIFIED ORGANISM 04/26/2017 NEAL DO, JEROME Ot J44.9 CHRONIC OBSTRUCTIVE PULMONARY DISEASE, U 04/26/2017 NEAL DO, JEROME Ot M06.9 RHEUMATOID ARTHRITIS, UNSPECIFIED 04/26/2017 NEAL DO, JEROME Ot Z95.5 PRESENCE OF CORONARY ANGIOPLASTY IMPLANT 12/27/2017 NEAL DO JEROME Ot I25.10 ATHSCL HEART DISEASE OF [place] CORONARY 12/27/2017 NEAL DO, JEROME Ot I48.91 UNSPECIFIED ATRIAL FIBRILLATION 12/27/2017 NEAL DO, JEROME Ot J18.9 PNEUMONIA, UNSPECIFIED ORGANISM 12/27/2017 NEAL DO, JEROME Ot J44.9 CHRONIC OBSTRUCTIVE PULMONARY DISEASE, U 12/27/2017 NEAL DO, JEROME Ot M06.9 RHEUMATOID ARTHRITIS, UNSPECIFIED 12/27/2017 NEAL DO, JEROME Ot Z95.5 PRESENCE OF CORONARY ANGIOPLASTY IMPLANT 12/28/2017 ANIKET NOVA, JUN Hobbs Ot E05. 90 THYROTOXICOSIS, UNSP WITHOUT THYROTOXIC 12/28/2017 JUN MARCIAL MD Ot E11. 9 TYPE 2 DIABETES MELLITUS WITHOUT COMPLIC 12/28/2017 JUN MARCIAL MD Ot E78. 00 PURE HYPERCHOLESTEROLEMIA, UNSPECIFIED 12/28/2017 JUN MARCIAL MD Ot E78. 5 HYPERLIPIDEMIA, UNSPECIFIED 12/28/2017 JUN MARCIAL MD, Ot G47. 00 INSOMNIA, UNSPECIFIED 12/28/2017 JUN MARCIAL MD Ot G89. 29 OTHER CHRONIC PAIN 12/28/2017 JUN MARCIAL MD Ot I11. 0 HYPERTENSIVE HEART DISEASE WITH HEART FA 12/28/2017 JUN MARCIAL MD Ot I25. 10 ATHSCL HEART DISEASE OF [place] CORONARY 12/28/2017 JUN MARCIAL MD Ot I25. 2 OLD MYOCARDIAL INFARCTION 12/28/2017 JUN MARCIAL MD Ot I34. 0 NONRHEUMATIC MITRAL (VALVE) INSUFFICIENC 12/28/2017 JUN MARCIAL MD, Ot I48. 2 CHRONIC ATRIAL FIBRILLATION 12/28/2017 JUN MARCIAL MD Ot I50. 33 ACUTE ON CHRONIC DIASTOLIC (CONGESTIVE) 12/28/2017 JUN MARCIAL MD Ot J10. 1 FLU DUE TO OTH IDENT INFLUENZA VIRUS W O 12/28/2017 JUN MARCIAL MD Ot J10. 89 INFLUENZA DUE TO OTH IDENT INFLUENZA VIR 12/28/2017 JUN MARCIAL MD, Ot J44. 1 CHRONIC OBSTRUCTIVE PULMONARY DISEASE W 12/28/2017 JUN MARCIAL MD Ot M06. 9 RHEUMATOID ARTHRITIS, UNSPECIFIED 12/28/2017 JUN MARCIAL MD Ot R09. 02 HYPOXEMIA 12/28/2017 JUN MARCIAL MD Ot R41. 0 DISORIENTATION, UNSPECIFIED 12/28/2017 JUN MARCIAL MD Ot Z79. 01 BAGEL MAKER (CURRENT) USE OF ANTICOAGULANT 12/28/2017 JUN MARCIAL MD Ot Z87. 01 PERSONAL HISTORY OF PNEUMONIA (RECURRENT 12/28/2017 JUN MARCIAL MD, Ot Z87.891 PERSONAL HISTORY OF NICOTINE DEPENDENCE 12/28/2017 JUN MARCIAL MD Ot Z95. 5 PRESENCE OF CORONARY ANGIOPLASTY IMPLANT 03/20/2018 PATRICIA CABAN MD Ot E78.00 PURE HYPERCHOLESTEROLEMIA, UNSPECIFIED 03/20/2018 PATRICIA CABAN MD Ot I11.0 HYPERTENSIVE HEART DISEASE WITH HEART FA 03/20/2018 PATRICIA CABAN MD Ot I25.10 ATHSCL HEART DISEASE OF [place] CORONARY 03/20/2018 PATRICIA CABAN MD Ot I25.2 OLD MYOCARDIAL INFARCTION 03/20/2018 PATRICIA CABAN MD Ot I48.91 UNSPECIFIED ATRIAL FIBRILLATION 03/20/2018 PATRICIA CABAN MD Ot I50.9 HEART FAILURE, UNSPECIFIED 03/20/2018 PATRICIA CABAN MD Ot J44.9 CHRONIC OBSTRUCTIVE PULMONARY DISEASE, U 03/20/2018 PATRICIA CABAN MD Ot M06.9 RHEUMATOID ARTHRITIS, UNSPECIFIED 03/20/2018 PATRICIA CABAN MD Ot R05 COUGH 03/20/2018 PATRICIA CABAN MD Ot Z79.01 RESIDENTIAL (CURRENT) USE OF ANTICOAGULANT 03/20/2018 PATRICIA CABAN MD, Ot Z79.82 RESIDENTIAL (CURRENT) USE OF ASPIRIN 03/20/2018 PATRICIA CABAN MD Ot Z82.49 FAMILY HX OF ISCHEM HEART DIS AND OTH DI 03/20/2018 PATRICIA CABAN MD, Ot Z87.01 PERSONAL HISTORY OF PNEUMONIA (RECURRENT 03/20/2018 PATRICIA CABAN MD Ot Z87.891 PERSONAL HISTORY OF NICOTINE DEPENDENCE 03/20/2018 PATRICIA CABAN MD Ot Z88.2 ALLERGY STATUS TO SULFONAMIDES STATUS 03/20/2018 PATRICIA CABAN MD Ot Z95.5 PRESENCE OF CORONARY ANGIOPLASTY IMPLANT 03/20/2018 PATRICIA CABAN MD Ot Z98.51 TUBAL LIGATION STATUS 03/22/2018 PATRICIA CABAN MD Ot E78.00 PURE HYPERCHOLESTEROLEMIA, UNSPECIFIED 03/22/2018 PATRICIA CABAN MD Ot I11.0 HYPERTENSIVE HEART DISEASE WITH HEART FA 03/22/2018 PATRICIA CABAN MD, Ot I25.10 ATHSCL HEART DISEASE OF [place] CORONARY 03/22/2018 PATRICIA CABAN MD Ot I25.2 OLD MYOCARDIAL INFARCTION 03/22/2018 PATRICIA CABAN MD Ot I48.91 UNSPECIFIED ATRIAL FIBRILLATION 03/22/2018 PATRICIA CABAN MD Ot I50.9 HEART FAILURE, UNSPECIFIED 03/22/2018 PATRICIA CABAN MD Ot J44.9 CHRONIC OBSTRUCTIVE PULMONARY DISEASE, U 03/22/2018 PATRICIA CABAN MD Ot M06.9 RHEUMATOID ARTHRITIS, UNSPECIFIED 03/22/2018 PATRICIA CABAN MD Ot R05 COUGH 03/22/2018 PATRICIA CABAN MD, Ot Z79.01 BAGEL MAKER (CURRENT) USE OF ANTICOAGULANT 03/22/2018 PATRICIA CABAN MD Ot Z79.82 RESIDENTIAL (CURRENT) USE OF ASPIRIN 03/22/2018 PATRICIA CABAN MD Ot Z82.49 FAMILY HX OF ISCHEM HEART DIS AND OTH DI 03/22/2018 PATRICIA CABAN MD Ot Z87.01 PERSONAL HISTORY OF PNEUMONIA (RECURRENT 03/22/2018 PATRICIA CABAN MD Ot Z87.891 PERSONAL HISTORY OF NICOTINE DEPENDENCE 03/22/2018 PATRICIA CABAN MD Ot Z88.2 ALLERGY STATUS TO SULFONAMIDES STATUS 03/22/2018 PATRICIA CABAN MD Ot Z95.5 PRESENCE OF CORONARY ANGIOPLASTY IMPLANT 03/22/2018 PATRICIA CABAN MD Ot Z98.51 TUBAL LIGATION STATUS 11/01/2018 ERIC REIS APRN Ot R06.02 SHORTNESS OF BREATH 11/01/2018 ERIC REIS APRN Ot Z87.891 PERSONAL HISTORY OF NICOTINE DEPENDENCE 11/01/2018 JEWEL THAKKAR DO Ot E78. 4 OTHER HYPERLIPIDEMIA 11/01/2018 JEWEL THAKKAR DO Ot I10 ESSENTIAL (PRIMARY) HYPERTENSION 11/01/2018 JEWEL THAKKAR DO Ot J18. 9 PNEUMONIA, UNSPECIFIED ORGANISM 11/01/2018 JEWEL THAKKAR DO Ot R06. 00 DYSPNEA, UNSPECIFIED 11/01/2018 JASIEL NEAL DOI Ot N63 UNSPECIFIED LUMP IN BREAST 11/01/2018 JEROME NEAL DO Ot I25.10 ATHSCL HEART DISEASE OF [place] CORONARY 11/01/2018 JASIEL NEAL DOI Ot I48.91 UNSPECIFIED ATRIAL FIBRILLATION 11/01/2018 JEROME NEAL DO Ot J18.9 PNEUMONIA, UNSPECIFIED ORGANISM 11/01/2018 JEROME NEAL DO Ot J44.9 CHRONIC OBSTRUCTIVE PULMONARY DISEASE, U 11/01/2018 JEROME NEAL DO Ot M06.9 RHEUMATOID ARTHRITIS, UNSPECIFIED 11/01/2018 JASIEL NEAL DOI Ot Z95.5 PRESENCE OF CORONARY ANGIOPLASTY IMPLANT 11/02/2018 ERIC REIS APRN Ot R06.02 SHORTNESS OF BREATH 11/02/2018 ERIC REIS APRN Ot Z87.891 PERSONAL HISTORY OF NICOTINE DEPENDENCE 11/02/2018 JEWEL THAKKAR DO Ot E78. 4 OTHER HYPERLIPIDEMIA 11/02/2018 JEWEL THAKKAR DO Ot I10 ESSENTIAL (PRIMARY) HYPERTENSION 11/02/2018 JEWEL THAKKAR DO Ot J18. 9 PNEUMONIA, UNSPECIFIED ORGANISM 11/02/2018 JEWEL THAKKAR DO Ot R06. 00 DYSPNEA, UNSPECIFIED 11/02/2018 JASIEL NEAL DOI Ot N63 UNSPECIFIED LUMP IN BREAST 11/02/2018 NEAL DO, JEROME Ot I25.10 ATHSCL HEART DISEASE OF [place] CORONARY 11/02/2018 VAL SERRANO JEROME Ot I48.91 UNSPECIFIED ATRIAL FIBRILLATION 11/02/2018 JEROME NEAL DO Ot J18.9 PNEUMONIA, UNSPECIFIED ORGANISM 11/02/2018 VAL SERRANO JEROME Ot J44.9 CHRONIC OBSTRUCTIVE PULMONARY DISEASE, U 11/02/2018 VAL SERRANO JEROME Ot M06.9 RHEUMATOID ARTHRITIS, UNSPECIFIED 11/02/2018 JASIEL NEAL DOI Ot Z95.5 PRESENCE OF CORONARY ANGIOPLASTY IMPLANT 11/02/2018 JASIEL NEAL DOI Ot E03.9 HYPOTHYROIDISM, UNSPECIFIED 11/02/2018 VAL SERRANO JEROME Ot E11.9 TYPE 2 DIABETES MELLITUS WITHOUT COMPLIC 11/02/2018 JEROME NEAL DO Ot E78.5 HYPERLIPIDEMIA, UNSPECIFIED 11/02/2018 VAL SERRANO JEROME Ot I11.0 HYPERTENSIVE HEART DISEASE WITH HEART FA 11/02/2018 JASIEL NEAL DOI Ot I25.10 ATHSCL HEART DISEASE OF [place] CORONARY 11/02/2018 JASIEL NEAL DOI Ot I25.2 OLD MYOCARDIAL INFARCTION 11/02/2018 JASIEL NEAL DOI Ot I34.0 NONRHEUMATIC MITRAL (VALVE) INSUFFICIENC 11/02/2018 JASIEL NEAL DOI Ot I48.0 PAROXYSMAL ATRIAL FIBRILLATION 11/02/2018 JASIEL NEAL DOI Ot I50.33 ACUTE ON CHRONIC DIASTOLIC (CONGESTIVE) 11/02/2018 JEROME NEAL DO Ot J43.9 EMPHYSEMA, UNSPECIFIED 11/02/2018 JEROME NEAL DO Ot M06.9 RHEUMATOID ARTHRITIS, UNSPECIFIED 11/02/2018 JEROME NEAL DO Ot R07.1 CHEST PAIN ON BREATHING 11/02/2018 JASIEL NEAL DOI Ot R09.02 HYPOXEMIA 11/02/2018 JEROME NEAL DO Ot Z79.01 BAGEL MAKER (CURRENT) USE OF ANTICOAGULANT 11/02/2018 JEROME NEAL DO Ot Z79.82 RESIDENTIAL (CURRENT) USE OF ASPIRIN 11/02/2018 JASIEL NEAL DOI Ot Z79.89 9 OTHER RESIDENTIAL (CURRENT) DRUG THERAPY 11/02/2018 JEROME NEAL DO Ot Z87.89 1 PERSONAL HISTORY OF NICOTINE DEPENDENCE 11/02/2018 JEROME NEAL DO Ot Z91.14 PATIENT'S OTHER NONCOMPLIANCE WITH MEDIC 11/02/2018 VAL SERRANO JEROME Ot Z95.5 PRESENCE OF CORONARY ANGIOPLASTY IMPLANT 11/02/2018 JASIEL NEAL DOI Ot Z99.81 DEPENDENCE ON SUPPLEMENTAL OXYGEN 02/22/2019 ERIC REIS APRN Ot R06.02 SHORTNESS OF BREATH 02/22/2019 ERIC REIS APRN Ot Z87.891 PERSONAL HISTORY OF NICOTINE DEPENDENCE 02/22/2019 JEWEL THAKKAR DO Ot E78. 4 OTHER HYPERLIPIDEMIA 02/22/2019 JEWEL THAKKAR DO Ot I10 ESSENTIAL (PRIMARY) HYPERTENSION 02/22/2019 JEWEL THAKKAR DO Ot J18. 9 PNEUMONIA, UNSPECIFIED ORGANISM 02/22/2019 JEWEL THAKKAR DO Ot R06. 00 DYSPNEA, UNSPECIFIED 02/22/2019 JASIEL NEAL DOI Ot N63 UNSPECIFIED LUMP IN BREAST 02/22/2019 JEROME NEAL DO Ot I25.10 ATHSCL HEART DISEASE OF EEK CORONARY 02/22/2019 JASIEL NEAL DOI Ot I48.91 UNSPECIFIED ATRIAL FIBRILLATION 02/22/2019 JEROME NEAL DO Ot J18.9 PNEUMONIA, UNSPECIFIED ORGANISM 02/22/2019 JEROME NEAL DO Ot J44.9 CHRONIC OBSTRUCTIVE PULMONARY DISEASE, U 02/22/2019 JEROME NEAL DO Ot M06.9 RHEUMATOID ARTHRITIS, UNSPECIFIED 02/22/2019 VAL SERRANO JEROME Ot Z95.5 PRESENCE OF CORONARY ANGIOPLASTY IMPLANT 02/24/2019 JEROME NEAL DO Ot D64.9 ANEMIA, UNSPECIFIED 02/24/2019 VAL SERRANO JEROME Ot I48.91 UNSPECIFIED ATRIAL FIBRILLATION 02/24/2019 VAL SERRANO JEROME Ot I50.9 HEART FAILURE, UNSPECIFIED 02/24/2019 VAL SERRANO JEROME Ot I51.7 CARDIOMEGALY 02/24/2019 JASIEL NEAL DOI Ot R05 COUGH 02/24/2019 VAL SERRANO JEROME Ot R91.8 OTHER NONSPECIFIC ABNORMAL FINDING OF JACKLYN 03/17/2019 VAL SERRANO JEROME Ot D64.9 ANEMIA, UNSPECIFIED 03/17/2019 VAL SERRANO JEROME Ot I48.91 UNSPECIFIED ATRIAL FIBRILLATION 03/17/2019 NEAL DO, JEROME Ot I50.9 HEART FAILURE, UNSPECIFIED 03/17/2019 NEALANGELA SERRANO JEROME Ot I51.7 CARDIOMEGALY 03/17/2019 NEALANGELA SERRANO JEROME Ot R05 COUGH 03/17/2019 VAL SERRANO JEROME Ot R91.8 OTHER NONSPECIFIC ABNORMAL FINDING OF JACKLYN 10/07/2019 ERIC REIS APRN Ot R06.02 SHORTNESS OF BREATH 10/07/2019 ERIC REIS APRN Ot Z87.891 PERSONAL HISTORY OF NICOTINE DEPENDENCE 10/07/2019 JEWEL THAKKAR DO Ot E78. 4 OTHER HYPERLIPIDEMIA 10/07/2019 JEWEL THAKKAR DO Ot I10 ESSENTIAL (PRIMARY) HYPERTENSION 10/07/2019 JEWEL THAKKAR DO Ot J18. 9 PNEUMONIA, UNSPECIFIED ORGANISM 10/07/2019 JEWEL THAKKAR DO Ot R06. 00 DYSPNEA, UNSPECIFIED 10/07/2019 VAL SERRANO JEROME Ot N63 UNSPECIFIED LUMP IN BREAST 10/07/2019 VAL SERRANO JEROME Ot I25.10 ATHSCL HEART DISEASE OF EEK CORONARY 10/07/2019 VAL SERRANO JEROME Ot I48.91 UNSPECIFIED ATRIAL FIBRILLATION 10/07/2019 VAL SERRANO JEROME Ot J18.9 PNEUMONIA, UNSPECIFIED ORGANISM 10/07/2019 VAL SERRANO JEROME Ot J44.9 CHRONIC OBSTRUCTIVE PULMONARY DISEASE, U 10/07/2019 VAL SERRANO JEROME Ot M06.9 RHEUMATOID ARTHRITIS, UNSPECIFIED 10/07/2019 VAL SERRANO JEROME Ot Z95.5 PRESENCE OF CORONARY ANGIOPLASTY IMPLANT 10/07/2019 VAL SERRANO JEROME Ot D64.9 ANEMIA, UNSPECIFIED 10/07/2019 VAL DO JEROME Ot I48.91 UNSPECIFIED ATRIAL FIBRILLATION 10/07/2019 VAL SERRANO JEROME Ot I50.9 HEART FAILURE, UNSPECIFIED 10/07/2019 VAL SERRANO JEROME Ot I51.7 CARDIOMEGALY 10/07/2019 VAL SERRANO JEROME Ot R05 COUGH 10/07/2019 VAL SERRANO JEROME Ot R91.8 OTHER NONSPECIFIC ABNORMAL FINDING OF JACKLYN 10/10/2019 VAL SERRANO JEROME Ot A41.9 SEPSIS, UNSPECIFIED ORGANISM 10/10/2019 VAL SERRANO JEROME Ot E78.00 PURE HYPERCHOLESTEROLEMIA, UNSPECIFIED 10/10/2019 VAL SERRANO JEROME Ot E83.42 HYPOMAGNESEMIA 10/10/2019 JASIEL NEAL DOI Ot E87.6 HYPOKALEMIA 10/10/2019 JASIEL NEAL DOI Ot I11.0 HYPERTENSIVE HEART DISEASE WITH HEART FA 10/10/2019 VAL SERRANO JEROME Ot I25.10 ATHSCL HEART DISEASE OF [place] CORONARY 10/10/2019 JASIEL NEAL DOI Ot I25.2 OLD MYOCARDIAL INFARCTION 10/10/2019 JASIEL NEAL DOI Ot I48.91 UNSPECIFIED ATRIAL FIBRILLATION 10/10/2019 VAL SERRANO JEROME Ot I50.43 ACUTE ON CHRONIC COMBINED SYSTOLIC AND D 10/10/2019 JASIEL NEAL DOI Ot I50.9 HEART FAILURE, UNSPECIFIED 10/10/2019 JASIEL NEAL DOI Ot I95.9 HYPOTENSION, UNSPECIFIED 10/10/2019 JASIEL NEAL DOI Ot J18.9 PNEUMONIA, UNSPECIFIED ORGANISM 10/10/2019 JEROME NEAL DO Ot J43.9 EMPHYSEMA, UNSPECIFIED 10/10/2019 VAL SERRANO JEROME Ot J96.00 ACUTE RESPIRATORY FAILURE, UNSP W HYPOXI 10/10/2019 VAL SERRANO JEROME Ot M06.9 RHEUMATOID ARTHRITIS, UNSPECIFIED 10/10/2019 JASIEL NEAL DOI Ot R00.1 BRADYCARDIA, UNSPECIFIED 10/10/2019 VAL SERRANO JEROME Ot Z79.01 BAGEL MAKER (CURRENT) USE OF ANTICOAGULANT 10/10/2019 JASIEL NEAL DOI Ot Z87.01 PERSONAL HISTORY OF PNEUMONIA (RECURRENT 10/10/2019 JEROME NEAL DO Ot Z87.89 1 PERSONAL HISTORY OF NICOTINE DEPENDENCE 10/10/2019 JEROME NEAL DO Ot Z91.19 PATIENT'S NONCOMPLIANCE W OT MEDICAL TR 10/10/2019 JEROME NEAL DO Ot Z95.5 PRESENCE OF CORONARY ANGIOPLASTY IMPLANT 10/10/2019 JEROME NEAL DO Ot Z98.51 TUBAL LIGATION STATUS 10/10/2019 JASIEL NEAL DOI Ot Z99.81 DEPENDENCE ON SUPPLEMENTAL OXYGEN 10/11/2019 VAL SERRANO JEROME Ot I25.10 ATHSCL HEART DISEASE OF [place] CORONARY 10/11/2019 VAL SERRANO JEROME Ot I48.91 UNSPECIFIED ATRIAL FIBRILLATION 10/11/2019 JEROME NEAL DO Ot J18.9 PNEUMONIA, UNSPECIFIED ORGANISM 10/11/2019 JEROME NEAL DO Ot J44.9 CHRONIC OBSTRUCTIVE PULMONARY DISEASE, U 10/11/2019 JEROME NEAL DO Ot M06.9 RHEUMATOID ARTHRITIS, UNSPECIFIED 10/11/2019 JEROME NEAL DO Ot Z95.5 PRESENCE OF CORONARY ANGIOPLASTY IMPLANT 10/14/2019 JEROME NEAL DO Ot E78.00 PURE HYPERCHOLESTEROLEMIA, UNSPECIFIED 10/14/2019 JASIEL NEAL DOI Ot E86.0 DEHYDRATION 10/14/2019 JEROME NEAL DO Ot F32.9 MAJOR DEPRESSIVE DISORDER, SINGLE EPISOD 10/14/2019 JEROME NEAL DO Ot F41.9 ANXIETY DISORDER, UNSPECIFIED 10/14/2019 JEROME NEAL DO Ot I13.0 HYP HRT CHR KDNY DIS W HRT FAIL AND ST 10/14/2019 JASIEL NEAL DOI Ot I16.0 HYPERTENSIVE URGENCY 10/14/2019 JEROME NEAL DO Ot I25.10 ATHSCL HEART DISEASE OF [place] CORONARY 10/14/2019 JEROME NEAL DO Ot I48.0 PAROXYSMAL ATRIAL FIBRILLATION 10/14/2019 JASIEL NEAL DOI Ot I48.20 CHRONIC ATRIAL FIBRILLATION, UNSPECIFIED 10/14/2019 JEROME NEAL DO Ot I50.43 ACUTE ON CHRONIC COMBINED SYSTOLIC AND D 10/14/2019 JASIEL NEAL DOI Ot I95.1 ORTHOSTATIC HYPOTENSION 10/14/2019 JEROME NEAL DO Ot J44.1 CHRONIC OBSTRUCTIVE PULMONARY DISEASE W 10/14/2019 JEROME NEAL DO Ot M06.9 RHEUMATOID ARTHRITIS, UNSPECIFIED 10/14/2019 JASIEL NEAL DOI Ot M19.90 UNSPECIFIED OSTEOARTHRITIS, UNSPECIFIED 10/14/2019 JASIEL NEAL DOI Ot N18.9 CHRONIC KIDNEY DISEASE, UNSPECIFIED 10/14/2019 JEROME NEAL DO Ot R73.9 HYPERGLYCEMIA, UNSPECIFIED 10/14/2019 JEROME NEAL DO Ot T38.0X 5A ADVERSE EFFECT OF GLUCOCORT/SYNTH ANALOG 10/14/2019 JEROME NEAL DO Ot Z79.01 RESIDENTIAL (CURRENT) USE OF ANTICOAGULANT 10/14/2019 JEROME NEAL DO Ot Z87.89 1 PERSONAL HISTORY OF NICOTINE DEPENDENCE 10/14/2019 NEAL DO, JEROME Ot Z91.14 PATIENT'S OTHER NONCOMPLIANCE WITH MEDIC 10/26/2019 NEAL DO, JEROME Ot E78.00 PURE HYPERCHOLESTEROLEMIA, UNSPECIFIED 10/26/2019 NEAL DO, JEROME Ot F32.9 MAJOR DEPRESSIVE DISORDER, SINGLE EPISOD 10/26/2019 NEAL DO, JEROME Ot F41.9 ANXIETY DISORDER, UNSPECIFIED 10/26/2019 NEAL DO, JEROME Ot G72.89 OTHER SPECIFIED MYOPATHIES 10/26/2019 NEAL DO, JEROME Ot I13.0 HYP HRT CHR KDNY DIS W HRT FAIL AND ST 10/26/2019 NEAL DO, JEROME Ot I25.10 ATHSCL HEART DISEASE OF [place] CORONARY 10/26/2019 NEAL DO, JEROME Ot I25.2 OLD MYOCARDIAL INFARCTION 10/26/2019 NEAL DO, JEROME Ot I48.0 PAROXYSMAL ATRIAL FIBRILLATION 10/26/2019 NEAL DO, JEROME Ot I50.43 ACUTE ON CHRONIC COMBINED SYSTOLIC AND D 10/26/2019 NEAL DO, JEROME Ot I95.1 ORTHOSTATIC HYPOTENSION 10/26/2019 NEAL DO, JEROME Ot J43.9 EMPHYSEMA, UNSPECIFIED 10/26/2019 NEAL DO, JEROME Ot K21.9 GASTRO-ESOPHAGEAL REFLUX DISEASE WITHOUT 10/26/2019 NEAL DO, JEROME Ot M06.9 RHEUMATOID ARTHRITIS, UNSPECIFIED 10/26/2019 NEAL DO, JEROME Ot M19.91 PRIMARY OSTEOARTHRITIS, UNSPECIFIED SITE 10/26/2019 NEAL DO, JEROME Ot N18.9 CHRONIC KIDNEY DISEASE, UNSPECIFIED 10/26/2019 NEAL DO, JEROME Ot R09.89 OT SYMPTOMS AND SIGNS INVOLVING THE CIR 10/26/2019 NEAL DO, JEROME Ot R41.0 DISORIENTATION, UNSPECIFIED 10/26/2019 NEAL DO, JEROME Ot R42 DIZZINESS AND GIDDINESS 10/26/2019 NEAL DO, JEROME Ot R73.9 HYPERGLYCEMIA, UNSPECIFIED 10/26/2019 NEAL DO, JEROME Ot Z87.89 1 PERSONAL HISTORY OF NICOTINE DEPENDENCE 10/26/2019 NEAL DO, JEROME Ot Z91.19 PATIENT'S NONCOMPLIANCE W OT MEDICAL TR 10/26/2019 NEAL DO, JEROME Ot Z95.5 PRESENCE OF CORONARY ANGIOPLASTY IMPLANT 10/26/2019 NEAL DO, JEROME Ot Z99.81 DEPENDENCE ON SUPPLEMENTAL OXYGEN 11/06/2019 NEAL DO, JEROME Ot B02.9 ZOSTER WITHOUT COMPLICATIONS 11/06/2019 NEAL DO, JEROME Ot E78.00 PURE HYPERCHOLESTEROLEMIA, UNSPECIFIED 11/06/2019 NEAL DO, JEROME Ot F03.90 UNSPECIFIED DEMENTIA WITHOUT BEHAVIORAL 11/06/2019 NEAL DO, JEROME Ot F32.9 MAJOR DEPRESSIVE DISORDER, SINGLE EPISOD 11/06/2019 NEAL DO, JEROME Ot F41.9 ANXIETY DISORDER, UNSPECIFIED 11/06/2019 NEAL DO, JEROME Ot G72.9 MYOPATHY, UNSPECIFIED 11/06/2019 NEAL DO, JEROME Ot I13.0 HYP HRT CHR KDNY DIS W HRT FAIL AND ST 11/06/2019 NEAL DO, JEROME Ot I25.10 ATHSCL HEART DISEASE OF [place] CORONARY 11/06/2019 NEAL DO, JEROME Ot I48.91 UNSPECIFIED ATRIAL FIBRILLATION 11/06/2019 NEAL DO, JEROME Ot I50.9 HEART FAILURE, UNSPECIFIED 11/06/2019 NEAL DO, JEROME Ot J10.1 FLU DUE TO OTH IDENT INFLUENZA VIRUS W O 11/06/2019 NEAL DO, JEROME Ot J43.9 EMPHYSEMA, UNSPECIFIED 11/06/2019 NEAL DO, JEROME Ot K21.9 GASTRO-ESOPHAGEAL REFLUX DISEASE WITHOUT 11/06/2019 NEAL DO, JEROME Ot M06.9 RHEUMATOID ARTHRITIS, UNSPECIFIED 11/06/2019 NEAL DO, JEROME Ot M19.90 UNSPECIFIED OSTEOARTHRITIS, UNSPECIFIED 11/06/2019 NEAL DO, JEROME Ot N18.9 CHRONIC KIDNEY DISEASE, UNSPECIFIED 11/06/2019 NEAL DO, JEROME Ot R73.9 HYPERGLYCEMIA, UNSPECIFIED 11/06/2019 NEAL DO, JEROME Ot Z87.89 1 PERSONAL HISTORY OF NICOTINE DEPENDENCE 01/03/2020 NEAL DO, JEROME Ot D72.82 9 ELEVATED WHITE BLOOD CELL COUNT, UNSPECI 01/03/2020 NEAL DO, JEROME Ot E11.9 TYPE 2 DIABETES MELLITUS WITHOUT COMPLIC 01/03/2020 NEAL DO, JEROME Ot E78.00 PURE HYPERCHOLESTEROLEMIA, UNSPECIFIED 01/03/2020 NEAL DO, JEROME Ot E87.6 HYPOKALEMIA 01/03/2020 NEAL DO, JEROME Ot F03.90 UNSPECIFIED DEMENTIA WITHOUT BEHAVIORAL 01/03/2020 NEAL DO, JEROME Ot F32.9 MAJOR DEPRESSIVE DISORDER, SINGLE EPISOD 01/03/2020 NEAL DO, JEROME Ot F41.9 ANXIETY DISORDER, UNSPECIFIED 01/03/2020 NEAL DO, JEROME Ot I08.1 RHEUMATIC DISORDERS OF BOTH MITRAL AND T 01/03/2020 NEAL DO, JEROME Ot I11.0 HYPERTENSIVE HEART DISEASE WITH HEART FA 01/03/2020 NEAL DO, JEROME Ot I25.10 ATHSCL HEART DISEASE OF [place] CORONARY 01/03/2020 NEAL DO, JEROME Ot I25.2 OLD MYOCARDIAL INFARCTION 01/03/2020 NEAL DO, JEROME Ot I48.0 PAROXYSMAL ATRIAL FIBRILLATION 01/03/2020 NEAL DO, JEROME Ot I50.23 ACUTE ON CHRONIC SYSTOLIC (CONGESTIVE) H 01/03/2020 NEAL DO, JEROME Ot J10.89 INFLUENZA DUE TO [facility] IDENT INFLUENZA VIR 01/03/2020 NEAL DO, JEROME Ot J43.9 EMPHYSEMA, UNSPECIFIED 01/03/2020 NEAL DO, JEROME Ot K21.9 GASTRO-ESOPHAGEAL REFLUX DISEASE WITHOUT 01/03/2020 NEAL DO, JEROME Ot M06.9 RHEUMATOID ARTHRITIS, UNSPECIFIED 01/03/2020 NEAL DO, JEROME Ot M19.91 PRIMARY OSTEOARTHRITIS, UNSPECIFIED SITE 01/03/2020 NEAL DO, JEROME Ot M62.83 0 MUSCLE SPASM OF BACK 01/03/2020 VAL DO, JEROME Ot N30.00 ACUTE CYSTITIS WITHOUT HEMATURIA 01/03/2020 VAL DO, JEROME Ot R41.0 DISORIENTATION, UNSPECIFIED 01/03/2020 NEAL DO, JEROME Ot R53.81 OTHER MALAISE 01/03/2020 VAL DO, JEROME Ot S72.01 2A UNSP INTRACAPSULAR FRACTURE OF LEFT FEMU 01/03/2020 VAL SERRANO JEROME Ot W07.XX XA FALL FROM CHAIR, INITIAL ENCOUNTER 01/03/2020 VAL SERRANO JEROME Ot Y92.[address] IN [facility] NON-INSTITUT (PRIVATE 01/03/2020 VAL SERRANO JEROME Ot Z79.01 RESIDENTIAL (CURRENT) USE OF ANTICOAGULANT 01/03/2020 NEAL DO, JEROME Ot Z87.89 1 PERSONAL HISTORY OF NICOTINE DEPENDENCE 01/03/2020 NEAL DO, JEROME Ot Z95.5 PRESENCE OF CORONARY ANGIOPLASTY IMPLANT 01/03/2020 NEAL DO, JEROME Ot Z99.81 DEPENDENCE ON SUPPLEMENTAL OXYGEN 01/03/2020 NEAL DO, JEROME Ot D72.82 9 ELEVATED WHITE BLOOD CELL COUNT, UNSPECI 01/03/2020 NEAL DO, JEROME Ot E11.9 TYPE 2 DIABETES MELLITUS WITHOUT COMPLIC 01/03/2020 NEAL DO, JEROME Ot E78.00 PURE HYPERCHOLESTEROLEMIA, UNSPECIFIED 01/03/2020 NEAL DO, JEROME Ot E87.6 HYPOKALEMIA 01/03/2020 NEAL DO, JEROME Ot F03.90 UNSPECIFIED DEMENTIA WITHOUT BEHAVIORAL 01/03/2020 NEAL DO, JEROME Ot F32.9 MAJOR DEPRESSIVE DISORDER, SINGLE EPISOD 01/03/2020 NEAL DO, JEROME Ot F41.9 ANXIETY DISORDER, UNSPECIFIED 01/03/2020 NEAL DO, JEROME Ot I08.1 RHEUMATIC DISORDERS OF BOTH MITRAL AND T 01/03/2020 NEAL DO, JEROME Ot 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 HYPERTENSIVE HEART DISEASE WITH HEART FA 01/03/2020NEAL DO, JEROME Ot I25.10 ATHSCL HEART DISEASE OF [place] CORONARY 01/03/2020 NEAL DO, JEROME Ot I25.2 OLD MYOCARDIAL INFARCTION 01/03/2020 NEAL DO, JEROME Ot I48.0 PAROXYSMAL ATRIAL FIBRILLATION 01/03/2020 NEAL DO, JEROME Ot I50.23 ACUTE ON CHRONIC SYSTOLIC (CONGESTIVE) H 01/03/2020 NEAL DO, JEROME Ot J10.89 INFLUENZA DUE TO [facility] IDENT INFLUENZA VIR 01/03/2020 NEAL DO, JEROME Ot J43.9 EMPHYSEMA, UNSPECIFIED 01/03/2020 NEAL DO, JEROME Ot K21.9 GASTRO-ESOPHAGEAL REFLUX DISEASE WITHOUT 01/03/2020 NEAL DO, JEROME Ot M06.9 RHEUMATOID ARTHRITIS, UNSPECIFIED 01/03/2020 NEAL DO, JEROME Ot M19.91 PRIMARY OSTEOARTHRITIS, UNSPECIFIED SITE 01/03/2020 NEAL DO, JEROME Ot M62.83 0 MUSCLE SPASM OF BACK 01/03/2020 NEAL DO, JEROME Ot N30.00 ACUTE CYSTITIS WITHOUT HEMATURIA 01/03/2020 NEAL DO, JEROME Ot R41.0 DISORIENTATION, UNSPECIFIED 01/03/2020 VAL SERRANO, JEROME Ot R53.81 OTHER MALAISE 01/03/2020 VAL SERRANO JEROME Ot S72.01 2A UNSP INTRACAPSULAR FRACTURE OF LEFT FEMU 01/03/2020 VAL SERRANO JEROME Ot W07.XX XA FALL FROM CHAIR, INITIAL ENCOUNTER 01/03/2020 VAL SERRANO JEROME Ot Y92.[address] IN [facility] NON-INSTITUT (PRIVATE 01/03/2020 VAL SERRANO JEROME Ot Z79.01 BAGEL MAKER (CURRENT) USE OF ANTICOAGULANT 01/03/2020 VAL SERRANO JEROME Ot Z87.89 1 PERSONAL HISTORY OF NICOTINE DEPENDENCE 01/03/2020 VAL SERRANO JEROME Ot Z95.5 PRESENCE OF CORONARY ANGIOPLASTY IMPLANT 01/03/2020 VAL SERRANO JEROME Ot Z99.81 DEPENDENCE ON SUPPLEMENTAL OXYGEN 01/03/2020 VAL SERRANO JEROME Ot D72.82 9 ELEVATED WHITE BLOOD CELL COUNT, UNSPECI 01/03/2020 VAL SERRANO JEROME Ot E11.9 TYPE 2 DIABETES MELLITUS WITHOUT COMPLIC 01/03/2020 VAL SERRANO, JEROME Ot E78.00 PURE HYPERCHOLESTEROLEMIA, UNSPECIFIED 01/03/2020 VAL SERRANO, JEROME Ot E87.6 HYPOKALEMIA 01/03/2020 VAL SERRANO JEROME Ot F03.90 UNSPECIFIED DEMENTIA WITHOUT BEHAVIORAL 01/03/2020 VAL SERRANO JEROME Ot F32.9 MAJOR DEPRESSIVE DISORDER, SINGLE EPISOD 01/03/2020 VAL SERRANO JEROME Ot F41.9 ANXIETY DISORDER, UNSPECIFIED 01/03/2020 VAL SERRANO JEROME Ot I08.1 RHEUMATIC DISORDERS OF BOTH MITRAL AND T 01/03/2020 VAL SERRANO JEROME Ot I11.0 HYPERTENSIVE HEART DISEASE WITH HEART FA 01/03/2020 VAL SERRANO JEROME Ot I25.10 ATHSCL HEART DISEASE OF EEK CORONARY 01/03/2020 VAL SERRANO JEROME Ot I25.2 OLD MYOCARDIAL INFARCTION 01/03/2020 VAL SERRANO JEROME Ot I48.0 PAROXYSMAL ATRIAL FIBRILLATION 01/03/2020 VAL SERRANO JEROME Ot I50.23 ACUTE ON CHRONIC SYSTOLIC (CONGESTIVE) H 01/03/2020 VAL SERRANO JEROME Ot J10.89 INFLUENZA DUE TO OT IDENT INFLUENZA VIR 01/03/2020 VAL SERRANO JEROME Ot J43.9 EMPHYSEMA, UNSPECIFIED 01/03/2020 VAL SERRANO JEROME Ot K21.9 GASTRO-ESOPHAGEAL REFLUX DISEASE WITHOUT 01/03/2020 VAL SERRANO JEROME Ot M06.9 RHEUMATOID ARTHRITIS, UNSPECIFIED 01/03/2020 VAL SERRANO JEROME Ot M19.91 PRIMARY OSTEOARTHRITIS, UNSPECIFIED SITE 01/03/2020 VAL SERRANO JEROME Ot M62.83 0 MUSCLE SPASM OF BACK 01/03/2020 VAL SERRANO JEROME Ot N30.00 ACUTE CYSTITIS WITHOUT HEMATURIA 01/03/2020 VAL SERRANO JEROME Ot R41.0 DISORIENTATION, UNSPECIFIED 01/03/2020 VAL SERRANO JEROME Ot R53.81 OTHER MALAISE 01/03/2020 VAL SERRANO JEROME Ot S72.01 2A UNSP INTRACAPSULAR FRACTURE OF LEFT FEMU 01/03/2020 VAL SERRANO JEROME Ot W07.XX XA FALL FROM CHAIR, INITIAL ENCOUNTER 01/03/2020 JASIEL NEAL DOI Ot Y92.[address] IN [facility] NON-INSTITUT (PRIVATE 01/03/2020 VAL SERRANO JEROME Ot Z79.01 RESIDENTIAL (CURRENT) USE OF ANTICOAGULANT 01/03/2020 VAL SERRANO JEROME Ot Z87.89 1 PERSONAL HISTORY OF NICOTINE DEPENDENCE 01/03/2020 VAL SERRANO JEROME Ot Z95.5 PRESENCE OF CORONARY ANGIOPLASTY IMPLANT 01/03/2020 VAL SERRANO JEROME Ot Z99.81 DEPENDENCE ON SUPPLEMENTAL OXYGEN 01/04/2020 VAL SERRANO JEROME Ot D72.82 9 ELEVATED WHITE BLOOD CELL COUNT, UNSPECI 01/04/2020 VAL SERRAON JEROME Ot E11.9 TYPE 2 DIABETES MELLITUS WITHOUT COMPLIC 01/04/2020 VAL SERRANO JEROME Ot E78.00 PURE HYPERCHOLESTEROLEMIA, UNSPECIFIED 01/04/2020 VAL SERRANO JEROME Ot E87.6 HYPOKALEMIA 01/04/2020 VAL SERRANO JEROME Ot F03.90 UNSPECIFIED DEMENTIA WITHOUT BEHAVIORAL 01/04/2020 VAL SERRANO JEROME Ot F32.9 MAJOR DEPRESSIVE DISORDER, SINGLE EPISOD 01/04/2020 VAL SERRANO JEROME Ot F41.9 ANXIETY DISORDER, UNSPECIFIED 01/04/2020 VAL SERRANO JEROME Ot I08.1 RHEUMATIC DISORDERS OF BOTH MITRAL AND T 01/04/2020 VAL SERRANO, JEROME Ot I11.0 HYPERTENSIVE HEART DISEASE WITH HEART FA 01/04/2020 VAL SERRANO JEROME Ot I25.10 ATHSCL HEART DISEASE OF EEK CORONARY 01/04/2020 VAL SERRANO JEROME Ot I25.2 OLD MYOCARDIAL INFARCTION 01/04/2020 VAL SERRANO JEROME Ot I48.0 PAROXYSMAL ATRIAL FIBRILLATION 01/04/2020 VAL SERRANO JEROME Ot I50.23 ACUTE ON CHRONIC SYSTOLIC (CONGESTIVE) H 01/04/2020 VAL SERRANO JEROME Ot J10.89 INFLUENZA DUE TO OTH IDENT INFLUENZA VIR 01/04/2020 VAL SERRANO JEROME Ot J43.9 EMPHYSEMA, UNSPECIFIED 01/04/2020 VAL SERRANO JEROME Ot K21.9 GASTRO-ESOPHAGEAL REFLUX DISEASE WITHOUT 01/04/2020 VAL SERRANO JEROME Ot M06.9 RHEUMATOID ARTHRITIS, UNSPECIFIED 01/04/2020 VAL SERRANO JEROME Ot M19.91 PRIMARY OSTEOARTHRITIS, UNSPECIFIED SITE 01/04/2020 VAL SERRANO JEROME Ot M62.83 0 MUSCLE SPASM OF BACK 01/04/2020 VAL SERRANO JEROME Ot N30.00 ACUTE CYSTITIS WITHOUT HEMATURIA 01/04/2020 VAL SERRANO JEROME Ot R41.0 DISORIENTATION, UNSPECIFIED 01/04/2020 VAL SERRANO JEROME Ot R53.81 OTHER MALAISE 01/04/2020 VAL SERRANO JEROME Ot S72.01 2A UNSP INTRACAPSULAR FRACTURE OF LEFT FEMU 01/04/2020 VAL SERRANO JEROME Ot W07.XX XA FALL FROM CHAIR, INITIAL ENCOUNTER 01/04/2020 VAL SERRANO JEROME Ot Y92.[address] IN [facility] NON-INSTITUT (PRIVATE 01/04/2020 VAL SERRANO JEROME Ot Z79.01 BAGEL MAKER (CURRENT) USE OF ANTICOAGULANT 01/04/2020 VAL SERRANO JEROME Ot Z87.89 1 PERSONAL HISTORY OF NICOTINE DEPENDENCE 01/04/2020 VAL SERRANO JEROME Ot Z95.5 PRESENCE OF CORONARY ANGIOPLASTY IMPLANT 01/04/2020 VAL SERRANO JEROME Ot Z99.81 DEPENDENCE ON SUPPLEMENTAL OXYGEN 01/04/2020 VAL SERRANO JEROME Ot D72.82 9 ELEVATED WHITE BLOOD CELL COUNT, UNSPECI 01/04/2020 NEAL DO, JEROME Ot E11.9 TYPE 2 DIABETES MELLITUS WITHOUT COMPLIC 01/04/2020 NEAL DO, JEROME Ot E78.00 PURE HYPERCHOLESTEROLEMIA, UNSPECIFIED 01/04/2020 NEAL DO, JEROME Ot E87.6 HYPOKALEMIA 01/04/2020 NEAL DO, JEROME Ot F03.90 UNSPECIFIED DEMENTIA WITHOUT BEHAVIORAL 01/04/2020 NEAL DO, JEROME Ot F32.9 MAJOR DEPRESSIVE DISORDER, SINGLE EPISOD 01/04/2020 NEAL DO, JEROME Ot F41.9 ANXIETY DISORDER, UNSPECIFIED 01/04/2020 NEAL DO, JEROME Ot I08.1 RHEUMATIC DISORDERS OF BOTH MITRAL AND T 01/04/2020 NEAL DO, JEROME Ot I11.0 HYPERTENSIVE HEART DISEASE WITH HEART FA 01/04/2020 NEAL DO, JEROME Ot I25.10 ATHSCL HEART DISEASE OF EE[place] CORONARY 01/04/2020 NEAL DO, JEROME Ot I25.2 OLD MYOCARDIAL INFARCTION 01/04/2020 NEAL DO, JEROME Ot I48.0 PAROXYSMAL ATRIAL FIBRILLATION 01/04/2020 NEAL DO, JEROME Ot I50.22 CHRONIC SYSTOLIC (CONGESTIVE) HEART FAIL 01/04/2020 NEAL DO, JEROME Ot J10.1 FLU DUE TO OT IDENT INFLUENZA VIRUS W O 01/04/2020 NEAL DO, JEROME Ot J43.9 EMPHYSEMA, UNSPECIFIED 01/04/2020 NEAL DO, JEROME Ot K21.9 GASTRO-ESOPHAGEAL REFLUX DISEASE WITHOUT 01/04/2020 NEAL DO, JEROME Ot M06.9 RHEUMATOID ARTHRITIS, UNSPECIFIED 01/04/2020 NEAL DO, JEROME Ot M19.91 PRIMARY OSTEOARTHRITIS, UNSPECIFIED SITE 01/04/2020 NEAL DO, JEROME Ot M62.83 0 MUSCLE SPASM OF BACK 01/04/2020 NEAL DO, JEROME Ot N39.0 URINARY TRACT INFECTION, SITE NOT SPECIF 01/04/2020 ENAL DO, JEROME Ot R41.0 DISORIENTATION, UNSPECIFIED 01/04/2020 NEAL DO, JEROME Ot R53.81 OTHER MALAISE 01/04/2020 NEAL DO, JEROME Ot S72.01 2A UNSP INTRACAPSULAR FRACTURE OF LEFT FEMU 01/04/2020 NEAL DO, JEROME Ot W07.XX XA FALL FROM CHAIR, INITIAL ENCOUNTER 01/04/2020 JEROME NEAL DO Ot Y92.00 [address] [facility] NON-INSTITUT (PRIVATE 01/04/2020 JEROME NEAL DO Ot Z79.01 BAGEL MAKER (CURRENT) USE OF ANTICOAGULANT 01/04/2020 JEROME NEAL DO Ot Z87.89 1 PERSONAL HISTORY OF NICOTINE DEPENDENCE 01/04/2020 JASIEL NEAL DOI Ot Z95.5 PRESENCE OF CORONARY ANGIOPLASTY IMPLANT 01/04/2020 JASIEL NEAL DOI Ot Z99.81 DEPENDENCE ON SUPPLEMENTAL OXYGEN 04/26/2020 CHAD NOVA, LIBRADO Aguirre Ot S72.012D [facility] INTRACAP FX LEFT FEMUR, SUBS FOR CL Procedures Code Description Performed By Carter rios On [id number] IN SERTION OF INT FIX INTO L UP FEMUR, PE 01/02/2020 Results Test Result Range Complete blood count (CBC) with automate d white blood cell (WBC) differential - 08/27/16 03:15 Blood leukocytes automated count (number/volume) 9.7 10*3/uL 4.3-11.0 Blood erythrocytes automated count (number/volume) 5.14 10*6/uL 4.35-5.85 Venous blood hemoglobin measurement (mass/volume) 15.1 g/dL 11.5-16.0 Blood hematocrit (volume fraction) 46 % 35-52 Automated erythrocyte mean corpuscular volume 89 [ foz_us] 80-99 Automated erythrocyte mean corpuscular h emoglobin (mass per erythrocyte) 29 pg 25-34 Automated erythrocyte mean corpuscular h emoglobin concentration measurement (mass/volume) 33 g/dL 32-36 Automated erythrocyte distribution width ratio 13. 4 % 10.0- 14.5 Automated blood platelet count (count/volume) 216 10*3/uL [...] 10*3 1.0-4.0 Blood monocytes automated count (number/volume) 0. 7 10*3 0.0-1.0 Automated eosinophil count 0.0 10*3/uL 0 .0-0.3 Automated blood basophil count (count/volume) 0.0 10*3/uL 0.0-0.1 Blood lactic acid measurement (moles/vol ume) - 08/27/16 03:15 Blood lactic acid measurement (moles/volume) 1.2 m mol/L 0.5- 2.0 Comprehensive metabolic panel - 08/27/16 03:15 Serum or plasma sodium measurement (moles/volume) 134 mmol/L 135-145 Serum or plasma potassium measurement (moles/volume) 3.7 mmol/L 3.6-5.0 Serum or plasma chloride measurement (moles/volume) 98 mmol/L 98-107 Carbon dioxide 23 mmol/L 21-32 Serum or plasma anion gap determination (moles/volume) 13 mmol/L 5-14 Serum or plasma urea nitrogen measurement (mass/volume ) 12 mg/dL 7-18 Serum or plasma creatinine measurement (mass/volume) 0.71 mg/dL 0.60-1.30 Serum or plasma urea nitrogen/creatinine mass ratio 17 NRG Serum or plasma creatinine measurement w ith calculation of estimated glomerular filtration rate > NRG Serum or plasma glucose measurement (mass/volume) 134 mg/dL 70-105 Serum or plasma calcium measurement (mass/volume) 9.3 mg/dL 8.5-10.1 Serum or plasma total bilirubin measurement (mass/volu me) 1.7 mg/dL 0.1-1.0 Serum or plasma alkaline phosphatase bj surement (enzymatic activity/volume) 155 U/L 40-136 Serum or plasma aspartate aminotransfera se measurement (enzymatic activity/volume) 77 U/L 5-34 Serum or plasma alanine aminotransferase measurement (enzymatic activity/volume) 102 U/L 0-55 Serum or plasma protein measurement (mass/volume) 7.2 g/dL 6.4-8.2 Serum or plasma albumin measurement (mass/volume) 3.7 g/dL 3.2-4.5 Acute hepatitis panel - 08/27/16 03:15 Confirmatory quantitative serum or plasm a hepatitis B virus surface antigen measurement Non-Reactive Non-Reactive Hepatitis A virus IgM antibody assay Non-Reactive Non- Reactive Hepatitis B virus core IgM antibody assay Non-Reac tive Non- Reactive Serum hepatitis C virus antibody detection Non-Camryn ctive Non-Reactive Bacterial blood culture - 08/27/16 03:15 Bacterial blood culture NG NRG Bacterial blood culture - 08/27/16 03:58 Bacterial blood culture NG NRG Influenza virus A and B antigen detectio n - 08/27/16 04:45 FLU RESULT NEGATIVE FOR INFLUENZA A AND B ANTIGENS BY IA NRG Complete urinalysis with reflex to cultu re - 08/27/16 09:45 Urine color determination YELLOW NRG Urine clarity determination CLEAR NR G Urine pH measurement by test strip 5 5-9 Specific gravity of urine by test strip 1.025 1.016-1.022 Urine protein assay by test strip, semi-quantitative 3+ NEGATIVE Urine glucose detection by automated test strip NE GATIVE NEGATIVE Erythrocytes detection in urine sediment by light micr oscopy 2+ NEGATIVE Urine ketones detection by automated test strip NE GATIVE NEGATIVE Urine nitrite detection by test strip NEGATIVE NEGATIVE Urine total bilirubin detection by test strip NEGA TIVE NEGATIVE Urine urobilinogen measurement by automated test strip (mass/volume) NORMAL NORMAL Urine leukocyte esterase detection by dipstick 1+ NEGATIVE Automated urine sediment erythrocyte cou nt by microscopy (number/high power field) NONE NRG Automated urine sediment leukocyte count by microscopy (number/high power field) [HPF] NRG Bacteria detection in urine sediment by light microsco py MODERATE NRG Squamous epithelial cells detection in u rine sediment by light microscopy 2-5 NRG Crystals detection in urine sediment by light microsco py NONE NRG Casts detection in urine sediment by light microscopy NONE NRG Mucus detection in urine sediment by light microscopy SMALL NRG Complete urinalysis with reflex to culture YES NRG Complete blood count (CBC) with automate d white blood cell (WBC) differential - 08/28/16 04:46 Blood leukocytes automated count (number/volume) 13.3 10*3/uL 4.3-11.0 Blood erythrocytes automated count (number/volume) 5.31 10*6/uL 4.35-5.85 Venous blood hemoglobin measurement (mass/volume) 15.7 g/dL 11.5-16.0 Blood hematocrit (volume fraction) 47 % 35-52 Automated erythrocyte mean corpuscular volume 88 [ foz_us] 80-99 Automated erythrocyte mean corpuscular h emoglobin (mass per erythrocyte) 30 pg 25-34 Automated erythrocyte mean corpuscular h emoglobin concentration measurement (mass/volume) 34 g/dL 32-36 Automated erythrocyte distribution width ratio 13. 4 % 10.0- 14.5 Automated blood platelet count (count/volume) 233 10*3/uL [...] 10*3 1.0-4.0 Blood monocytes automated count (number/volume) 0. 5 10*3 0.0-1.0 Automated eosinophil count 0.0 10*3/uL 0 .0-0.3 Automated blood basophil count (count/volume) 0.0 10*3/uL 0.0-0.1 Comprehensive metabolic panel - 08/28/16 04:46 Serum or plasma sodium measurement (moles/volume) 138 mmol/L 135-145 Serum or plasma potassium measurement (moles/volume) 4.3 mmol/L 3.6-5.0 Serum or plasma chloride measurement (moles/volume) 102 mmol/L 98-107 Carbon dioxide 25 mmol/L 21-32 Serum or plasma anion gap determination (moles/volume) 11 mmol/L 5-14 Serum or plasma urea nitrogen measurement (mass/volume ) 17 mg/dL 7-18 Serum or plasma creatinine measurement (mass/volume) 0.75 mg/dL 0.60-1.30 Serum or plasma urea nitrogen/creatinine mass ratio 23 NRG Serum or plasma creatinine measurement w ith calculation of estimated glomerular filtration rate > NRG Serum or plasma glucose measurement (mass/volume) 168 mg/dL 70-105 Serum or plasma calcium measurement (mass/volume) 10.0 mg/dL 8.5-10.1 Serum or plasma total bilirubin measurement (mass/volu me) 1.1 mg/dL 0.1-1.0 Serum or plasma alkaline phosphatase bj surement (enzymatic activity/volume) 153 U/L 40-136 Serum or plasma aspartate aminotransfera se measurement (enzymatic activity/volume) 44 U/L 5-34 Serum or plasma alanine aminotransferase measurement (enzymatic activity/volume) 80 U/L 0-55 Serum or plasma protein measurement (mass/volume) 7.5 g/dL 6.4-8.2 Serum or plasma albumin measurement (mass/volume) 3.6 g/dL 3.2-4.5 Blood manual differential performed dete ction - 08/28/16 04:46 Blood monocytes/100 leukocytes 2 % NRG Manual blood segmented neutrophils/100 leukocytes 90 % NRG Blood band neutrophils/100 leukocytes 2 % NRG Manual blood lymphocytes/100 leukocytes 4 % NRG Manual eosinophils/100 leukocytes in nose 0 % NRG Manual blood basophils/100 leukocytes 0 % NRG Blood lymphocytes variant/100 leukocytes 2 % NRG Blood ovalocytes detection by light microscopy SLI GHT NRG Blood poikilocytosis detection by light microscopy SLIGHT NRG THYROID STIMULATING HORMONE - 08/28/16 0 4:46 THYROID STIMULATING HORMONE 0.48 u[iU]/mL 0.35-4.94 Complete blood count (CBC) with automate d white blood cell (WBC) differential - 08/29/16 04:34 Blood leukocytes automated count (number/volume) 17.8 10*3/uL 4.3-11.0 Blood erythrocytes automated count (number/volume) 5.52 10*6/uL 4.35-5.85 Venous blood hemoglobin measurement (mass/volume) 16.4 g/dL 11.5-16.0 Blood hematocrit (volume fraction) 49 % 35-52 Automated erythrocyte mean corpuscular volume 89 [ foz_us] 80-99 Automated erythrocyte mean corpuscular h emoglobin (mass per erythrocyte) 30 pg 25-34 Automated erythrocyte mean corpuscular h emoglobin concentration measurement (mass/volume) 34 g/dL 32-36 Automated erythrocyte distribution width ratio 13. 7 % 10.0- 14.5 Automated blood platelet count (count/volume) 284 10*3/uL [...] 10*3 1.0-4.0 Blood monocytes automated count (number/volume) 0. 7 10*3 0.0-1.0 Automated eosinophil count 0.0 10*3/uL 0 .0-0.3 Automated blood basophil count (count/volume) 0.0 10*3/uL 0.0-0.1 Blood manual differential performed dete ction - 08/29/16 04:34 Blood monocytes/100 leukocytes 2 % NRG Manual blood segmented neutrophils/100 leukocytes 91 % NRG Blood band neutrophils/100 leukocytes 0 % NRG Manual blood lymphocytes/100 leukocytes 3 % NRG Manual eosinophils/100 leukocytes in nose 0 % NRG Manual blood basophils/100 leukocytes 0 % NRG Blood lymphocytes variant/100 leukocytes 4 % NRG Blood erythrocyte morphology finding identification NORMAL NRG Comprehensive metabolic panel - 08/29/16 04:34 Serum or plasma sodium measurement (moles/volume) 139 mmol/L 135-145 Serum or plasma potassium measurement (moles/volume) 4.3 mmol/L 3.6-5.0 Serum or plasma chloride measurement (moles/volume) 100 mmol/L 98-107 Carbon dioxide 25 mmol/L 21-32 Serum or plasma anion gap determination (moles/volume) 14 mmol/L 5-14 Serum or plasma urea nitrogen measurement (mass/volume ) 23 mg/dL 7-18 Serum or plasma creatinine measurement (mass/volume) 0.82 mg/dL 0.60-1.30 Serum or plasma urea nitrogen/creatinine mass ratio 28 NRG Serum or plasma creatinine measurement w ith calculation of estimated glomerular filtration rate > NRG Serum or plasma glucose measurement (mass/volume) 150 mg/dL 70-105 Serum or plasma calcium measurement (mass/volume) 10.3 mg/dL 8.5-10.1 Serum or plasma total bilirubin measurement (mass/volu me) 1.0 mg/dL 0.1-1.0 Serum or plasma alkaline phosphatase bj surement (enzymatic activity/volume) 146 U/L 40-136 Serum or plasma aspartate aminotransfera se measurement (enzymatic activity/volume) 48 U/L 5-34 Serum or plasma alanine aminotransferase measurement (enzymatic activity/volume) 63 U/L 0-55 Serum or plasma protein measurement (mass/volume) 7.7 g/dL 6.4-8.2 Serum or plasma albumin measurement (mass/volume) 3.8 g/dL 3.2-4.5 Sputum Gram stain - 08/29/16 09:02 Bacterial sputum culture - 08/29/16 09:0 2 Bacterial sputum culture NORMAL NRG Bacterial urine culture - 08/29/16 09:45 Bacterial urine culture NG NRG Complete blood count (CBC) with automate d white blood cell (WBC) differential - 12/16/16 10:45 Blood leukocytes automated count (number/volume) 7.9 10*3/uL 4.3-11.0 Blood erythrocytes automated count (number/volume) 4.11 10*6/uL 4.35-5.85 Venous blood hemoglobin measurement (mass/volume) 11.9 g/dL 11.5-16.0 Blood hematocrit (volume fraction) 38 % 35-52 Automated erythrocyte mean corpuscular volume 93 [ foz_us] 80-99 Automated erythrocyte mean corpuscular h emoglobin (mass per erythrocyte) 29 pg 25-34 Automated erythrocyte mean corpuscular h emoglobin concentration measurement (mass/volume) 31 g/dL 32-36 Automated erythrocyte distribution width ratio 15. 8 % 10.0- 14.5 Automated blood platelet count (count/volume) 345 10*3/uL [...] 10*3 1.0-4.0 Blood monocytes automated count (number/volume) 0. 4 10*3 0.0-1.0 Automated eosinophil count 0.0 10*3/uL 0 .0-0.3 Automated blood basophil count (count/volume) 0.0 10*3/uL 0.0-0.1 PT panel in platelet poor plasma by coag ulation assay - 12/16/16 10:45 Prothrombin time (PT) in platelet poor plasma by coagu lation assay 13.5 s 12.2-14.7 INR in platelet poor plasma or blood by coagulation as say 1.1 0.8-1.4 Activated partial thromboplastin time (a PTT) in platelet poor plasma bycoagulation assay - 12/16/16 10:45 Activated partial thromboplastin time (a PTT) in platelet poor plasma bycoagulation assay 23 s 24-35 Comprehensive metabolic panel - 12/16/16 10:45 Serum or plasma sodium measurement (moles/volume) 138 mmol/L 135-145 Serum or plasma potassium measurement (moles/volume) 4.4 mmol/L 3.6-5.0 Serum or plasma chloride measurement (moles/volume) 100 mmol/L 98-107 Carbon dioxide 26 mmol/L 21-32 Serum or plasma anion gap determination (moles/volume) 12 mmol/L 5-14 Serum or plasma urea nitrogen measurement (mass/volume ) 13 mg/dL 7-18 Serum or plasma creatinine measurement (mass/volume) 0.77 mg/dL 0.60-1.30 Serum or plasma urea nitrogen/creatinine mass ratio 17 NRG Serum or plasma creatinine measurement w ith calculation of estimated glomerular filtration rate > NRG Serum or plasma glucose measurement (mass/volume) 128 mg/dL 70-105 Serum or plasma calcium measurement (mass/volume) 9.2 mg/dL 8.5-10.1 Serum or plasma total bilirubin measurement (mass/volu me) 1.2 mg/dL 0.1-1.0 Serum or plasma alkaline phosphatase bj surement (enzymatic activity/volume) 95 U/L 40-136 Serum or plasma aspartate aminotransfera se measurement (enzymatic activity/volume) 30 U/L 5-34 Serum or plasma alanine aminotransferase measurement (enzymatic activity/volume) 15 U/L 0-55 Serum or plasma protein measurement (mass/volume) 7.1 g/dL 6.4-8.2 Serum or plasma albumin measurement (mass/volume) 3.6 g/dL 3.2-4.5 Magnesium - 12/16/16 10:45 Magnesium 1.7 mg/dL 1.8-2.4 Serum or plasma C reactive protein measu rement (mass/volume) - 12/16/16 10:45 Serum or plasma C reactive protein measurement (mass/v olume) 3.35 mg/dL 0.00-0.50 Blood manual differential performed dete ction - 12/16/16 10:45 Blood monocytes/100 leukocytes 9 % NRG Manual blood segmented neutrophils/100 leukocytes 81 % NRG Manual blood lymphocytes/100 leukocytes 9 % NRG Manual blood basophils/100 leukocytes 1 % NRG Blood erythrocyte morphology finding identification NORMAL NRG Serum or plasma troponin i.cardiac measu rement (mass/volume) - 12/16/16 10:45 Serum or plasma troponin i.cardiac measurement (mass/v olume) < ng/mL <0.30 Myoglobin, serum - 12/16/16 10:45 Myoglobin, serum 52.2 ng/mL 10.0-92.0 Serum or plasma lithium measurement (mol es/volume) - 12/16/16 10:45 BNP level 405.2 pg/mL <100.0 Arterial blood gas measurement - 7 10:52 Blood pCO2 43 mm[Hg] 35-45 Blood pO2 118 mm[Hg] 79-93 Arterial blood bicarbonate measurement (moles/volume) 28 mmol/L 23-27 Arterial blood base excess by calculation 3.8 mmol /L -2.5-2.5 Arterial blood oxygen saturation measurement 99 % 94-100 * Inhaled oxygen flow rate 2L NRG Arterial blood pH measurement with patient temperature correction 7.43 7.37-7.43 Arterial blood carbon dioxide, total measurement (mole s/volume) 29.1 mmol/L 21.0-31.0 Body site LT BRACH NRG Assessment of wrist artery patency prior to arterial p uncture YES-POS NRG Setting of ventilation mode NO NR G Measurement of body temperature 99.8 NRG Influenza virus A and B antigen detectio n - 12/16/16 12:03 FLU RESULT NEGATIVE FOR INFLUENZA A AND B ANTIGENS BY IA NRG Blood lactic acid measurement (moles/vol ume) - 12/16/16 12:10 Blood lactic acid measurement (moles/volume) 1.1 m mol/L 0.5- 2.0 Bacterial blood culture - 12/16/16 12:10 Bacterial blood culture NG NRG Bacterial blood culture - 12/16/16 12:49 Bacterial blood culture NG NR Automated blood complete blood count (he mogram) panel - 12/17/16 04:17 Blood leukocytes automated count (number/volume) 6.3 10*3/uL 4.3-11.0 Blood erythrocytes automated count (number/volume) 3.83 10*6/uL 4.35-5.85 Venous blood hemoglobin measurement (mass/volume) 10.8 g/dL 11.5-16.0 Blood hematocrit (volume fraction) 35 % 35-52 Automated erythrocyte mean corpuscular volume 92 [ foz_us] 80-99 Automated erythrocyte mean corpuscular h emoglobin (mass per erythrocyte) 28 pg 25-34 Automated erythrocyte mean corpuscular h emoglobin concentration measurement (mass/volume) 31 g/dL 32-36 Automated erythrocyte distribution width ratio 15. 6 % 10.0- 14.5 Automated blood platelet count (count/volume) 288 10*3/uL [...] 5-14 Serum or plasma urea nitrogen measurement (mass/volume ) 11 mg/dL 7-18 Serum or plasma creatinine measurement (mass/volume) 0.58 mg/dL 0.60-1.30 Serum or plasma urea nitrogen/creatinine mass ratio 19 NRG Serum or plasma creatinine measurement w ith calculation of estimated glomerular filtration rate > NRG Serum or plasma glucose measurement (mass/volume) 147 mg/dL 70-105 Serum or plasma calcium measurement (mass/volume) 8.2 mg/dL 8.5-10.1 Serum or plasma total bilirubin measurement (mass/volu me) 1.4 mg/dL 0.1-1.0 Serum or plasma alkaline phosphatase bj surement (enzymatic activity/volume) 74 U/L 40-136 Serum or plasma aspartate aminotransfera se measurement (enzymatic activity/volume) 28 U/L 5-34 Serum or plasma alanine aminotransferase measurement (enzymatic activity/volume) 15 U/L 0-55 Serum or plasma protein measurement (mass/volume) 6.5 g/dL 6.4-8.2 Serum or plasma albumin measurement (mass/volume) 3.4 g/dL 3.2-4.5 Serum or plasma phosphate measurement (m ass/volume) - 12/17/16 04:17 Serum or plasma phosphate measurement (mass/volume) 2.4 mg/dL 2.3-4.7 Magnesium - 12/17/16 04:17 Magnesium 2.0 mg/dL 1.8-2.4 Lipid 1996 panel - 12/17/16 04:17 Serum or plasma triglyceride measurement (mass/volume) 74 mg/dL <150 Serum or plasma cholesterol measurement (mass/volume) 82 mg/dL < 200 Serum or plasma cholesterol in HDL measurement (mass/v olume) 22 mg/dL 40-60 Cholesterol in LDL [mass/volume] in serum or plasma by direct assay 48 mg/dL 1-129 Serum or plasma cholesterol in VLDL measurement (mass/ volume) 15 mg/dL 5-40 THYROID STIMULATING HORMONE - 12/17/16 0 4:17 THYROID STIMULATING HORMONE 0.28 u[iU]/mL 0.35-4.94 Complete urinalysis with reflex to cultu re - 12/17/16 09:20 Urine color determination YELLOW NRG Urine clarity determination CLEAR NR G Urine pH measurement by test strip 7 5-9 Specific gravity of urine by test strip 1.010 1.016-1.022 Urine protein assay by test strip, semi-quantitative 2+ NEGATIVE Urine glucose detection by automated test strip NE GATIVE NEGATIVE Erythrocytes detection in urine sediment by light micr oscopy NEGATIVE NEGATIVE Urine ketones detection by automated test strip NE GATIVE NEGATIVE Urine nitrite detection by test strip NEGATIVE NEGATIVE Urine total bilirubin detection by test strip NEGA TIVE NEGATIVE Urine urobilinogen measurement by automated test strip (mass/volume) NORMAL NORMAL Urine leukocyte esterase detection by dipstick NEG ATIVE NEGATIVE Automated urine sediment erythrocyte cou nt by microscopy (number/high power field) NONE NRG Automated urine sediment leukocyte count by microscopy (number/high power field) NONE NRG Bacteria detection in urine sediment by light microsco py NEGATIVE NRG Squamous epithelial cells detection in u rine sediment by light microscopy RARE NRG Crystals detection in urine sediment by light microsco py NONE NRG Casts detection in urine sediment by light microscopy NONE NRG Mucus detection in urine sediment by light microscopy NEGATIVE NRG Complete urinalysis with reflex to culture NO NRG Whole blood basic metabolic panel - 01/01 05:00 Serum or plasma sodium measurement (moles/volume) 140 mmol/L 135-145 Serum or plasma potassium measurement (moles/volume) 3.7 mmol/L 3.6-5.0 Serum or plasma chloride measurement (moles/volume) 104 mmol/L 98-107 Carbon dioxide 25 mmol/L 21-32 Serum or plasma anion gap determination (moles/volume) 11 mmol/L 5-14 Serum or plasma urea nitrogen measurement (mass/volume ) 12 mg/dL 7-18 Serum or plasma creatinine measurement (mass/volume) 0.61 mg/dL 0.60-1.30 Serum or plasma urea nitrogen/creatinine mass ratio 20 NRG Serum or plasma creatinine measurement w ith calculation of estimated glomerular filtration rate > NRG Serum or plasma glucose measurement (mass/volume) 112 mg/dL 70-105 Serum or plasma calcium measurement (mass/volume) 8.3 mg/dL 8.5-10.1 Complete blood count (CBC) with automate d white blood cell (WBC) differential - 12/25/16 12:26 Blood leukocytes automated count (number/volume) 19.5 10*3/uL 4.3-11.0 Blood erythrocytes automated count (number/volume) 4.57 10*6/uL 4.35-5.85 Venous blood hemoglobin measurement (mass/volume) 12.8 g/dL 11.5-16.0 Blood hematocrit (volume fraction) 41 % 35-52 Automated erythrocyte mean corpuscular volume 90 [ foz_us] 80-99 Automated erythrocyte mean corpuscular h emoglobin (mass per erythrocyte) 28 pg 25-34 Automated erythrocyte mean corpuscular h emoglobin concentration measurement (mass/volume) 31 g/dL 32-36 Automated erythrocyte distribution width ratio 16. 3 % 10.0- 14.5 Automated blood platelet count (count/volume) 536 10*3/uL [...] 10*3 1.0-4.0 Blood monocytes automated count (number/volume) 1. 3 10*3 0.0-1.0 Automated eosinophil count 0.1 10*3/uL 0 .0-0.3 Automated blood basophil count (count/volume) 0.0 10*3/uL 0.0-0.1 Blood lactic acid measurement (moles/vol ume) - 12/25/16 12:26 Blood lactic acid measurement (moles/volume) 1.49 mmol/L 0.50-2.00 PT panel in platelet poor plasma by coag ulation assay - 12/25/16 12:26 Prothrombin time (PT) in platelet poor plasma by coagu lation assay 16.0 s 12.2-14.7 INR in platelet poor plasma or blood by coagulation as say 1.3 0.8-1.4 Activated partial thromboplastin time (a PTT) in platelet poor plasma bycoagulation assay - 12/25/16 12:26 Activated partial thromboplastin time (a PTT) in platelet poor plasma bycoagulation assay 27 s 24-35 Blood manual differential performed dete ction - 12/25/16 12:26 Blood monocytes/100 leukocytes 9 % NRG Manual blood segmented neutrophils/100 leukocytes 87 % NRG Manual blood lymphocytes/100 leukocytes 4 % NRG Blood target cells detection by light microscopy S LIGHT NRG Blood stomatocytes detection by light microscopy S LIGHT NRG Comprehensive metabolic panel - 12/25/16 12:26 Serum or plasma sodium measurement (moles/volume) 137 mmol/L 135-145 Serum or plasma potassium measurement (moles/volume) 4.4 mmol/L 3.6-5.0 Serum or plasma chloride measurement (moles/volume) 102 mmol/L 98-107 Carbon dioxide 27 mmol/L 21-32 Serum or plasma anion gap determination (moles/volume) 8 mmol/L 5-14 Serum or plasma urea nitrogen measurement (mass/volume ) 13 mg/dL 7-18 Serum or plasma creatinine measurement (mass/volume) 0.80 mg/dL 0.60-1.30 Serum or plasma urea nitrogen/creatinine mass ratio 16 NRG Serum or plasma creatinine measurement w ith calculation of estimated glomerular filtration rate > NRG Serum or plasma glucose measurement (mass/volume) 105 mg/dL 70-105 Serum or plasma calcium measurement (mass/volume) 8.9 mg/dL 8.5-10.1 Serum or plasma total bilirubin measurement (mass/volu me) 2.5 mg/dL 0.1-1.0 Serum or plasma alkaline phosphatase bj surement (enzymatic activity/volume) 96 U/L 40-136 Serum or plasma aspartate aminotransfera se measurement (enzymatic activity/volume) 28 U/L 5-34 Serum or plasma alanine aminotransferase measurement (enzymatic activity/volume) 30 U/L 0-55 Serum or plasma protein measurement (mass/volume) 7.0 g/dL 6.4-8.2 Serum or plasma albumin measurement (mass/volume) 3.6 g/dL 3.2-4.5 Serum or plasma lithium measurement (mol es/volume) - 12/25/16 12:26 BNP level 260.0 pg/mL <100.0 Bacterial blood culture - 12/25/16 12:26 Bacterial blood culture NG NRG Bacterial blood culture - 12/25/16 12:40 Bacterial blood culture NG NRG Complete urinalysis with reflex to cultu re - 12/25/16 15:30 Urine color determination YELLOW NRG Urine clarity determination CLEAR NR G Urine pH measurement by test strip 8 5-9 Specific gravity of urine by test strip 1.010 1.016-1.022 Urine protein assay by test strip, semi-quantitative 3+ NEGATIVE Urine glucose detection by automated test strip NE GATIVE NEGATIVE Erythrocytes detection in urine sediment by light micr oscopy 1+ NEGATIVE Urine ketones detection by automated test strip NE GATIVE NEGATIVE Urine nitrite detection by test strip NEGATIVE NEGATIVE Urine total bilirubin detection by test strip NEGA TIVE NEGATIVE Urine urobilinogen measurement by automated test strip (mass/volume) NORMAL NORMAL Urine leukocyte esterase detection by dipstick 1+ NEGATIVE Automated urine sediment erythrocyte cou nt by microscopy (number/high power field) NONE NRG Automated urine sediment leukocyte count by microscopy (number/high power field) [HPF] NRG Bacteria detection in urine sediment by light microsco py FEW NRG Crystals detection in urine sediment by light microsco py NONE NRG Casts detection in urine sediment by light microscopy NONE NRG Mucus detection in urine sediment by light microscopy NEGATIVE NRG Complete urinalysis with reflex to culture YES NRG Bacterial urine culture - 12/25/16 15:30 URINE CULTURE RESULTS <10,000/ML NRG Complete blood count (CBC) with automate d white blood cell (WBC) differential - 12/26/16 03:25 Blood leukocytes automated count (number/volume) 13.0 10*3/uL 4.3-11.0 Blood erythrocytes automated count (number/volume) 4.01 10*6/uL 4.35-5.85 Venous blood hemoglobin measurement (mass/volume) 11.1 g/dL 11.5-16.0 Blood hematocrit (volume fraction) 37 % 35-52 Automated erythrocyte mean corpuscular volume 92 [ foz_us] 80-99 Automated erythrocyte mean corpuscular h emoglobin (mass per erythrocyte) 28 pg 25-34 Automated erythrocyte mean corpuscular h emoglobin concentration measurement (mass/volume) 30 g/dL 32-36 Automated erythrocyte distribution width ratio 16. 1 % 10.0- 14.5 Automated blood platelet count (count/volume) 404 10*3/uL [...] 10*3 1.0-4.0 Blood monocytes automated count (number/volume) 0. 8 10*3 0.0-1.0 Automated eosinophil count 0.1 10*3/uL 0 .0-0.3 Automated blood basophil count (count/volume) 0.0 10*3/uL 0.0-0.1 Comprehensive metabolic panel - 12/26/16 03:25 Serum or plasma sodium measurement (moles/volume) 141 mmol/L 135-145 Serum or plasma potassium measurement (moles/volume) 3.9 mmol/L 3.6-5.0 Serum or plasma chloride measurement (moles/volume) 110 mmol/L 98-107 Carbon dioxide 21 mmol/L 21-32 Serum or plasma anion gap determination (moles/volume) 10 mmol/L 5-14 Serum or plasma urea nitrogen measurement (mass/volume ) 9 mg/dL 7-18 Serum or plasma creatinine measurement (mass/volume) 0.60 mg/dL 0.60-1.30 Serum or plasma urea nitrogen/creatinine mass ratio 15 NRG Serum or plasma creatinine measurement w ith calculation of estimated glomerular filtration rate > NRG Serum or plasma glucose measurement (mass/volume) 104 mg/dL 70-105 Serum or plasma calcium measurement (mass/volume) 8.0 mg/dL 8.5-10.1 Serum or plasma total bilirubin measurement (mass/volu me) 2.0 mg/dL 0.1-1.0 Serum or plasma alkaline phosphatase bj surement (enzymatic activity/volume) 86 U/L 40-136 Serum or plasma aspartate aminotransfera se measurement (enzymatic activity/volume) 30 U/L 5-34 Serum or plasma alanine aminotransferase measurement (enzymatic activity/volume) 24 U/L 0-55 Serum or plasma protein measurement (mass/volume) 5.8 g/dL 6.4-8.2 Serum or plasma albumin measurement (mass/volume) 2.8 g/dL 3.2-4.5 Serum or plasma phosphate measurement (m ass/volume) - 12/26/16 03:25 Serum or plasma phosphate measurement (mass/volume) 2.0 mg/dL 2.3-4.7 Magnesium - 12/26/16 03:25 Magnesium 1.8 mg/dL 1.8-2.4 Vancomycin trough - 12/26/16 14:52 Vancomycin trough 10.1 ug/mL 10.0-20.0 Complete blood count (CBC) with automate d white blood cell (WBC) differential - 12/27/16 05:13 Blood leukocytes automated count (number/volume) 12.4 10*3/uL 4.3-11.0 Blood erythrocytes automated count (number/volume) 3.98 10*6/uL 4.35-5.85 Venous blood hemoglobin measurement (mass/volume) 11.0 g/dL 11.5-16.0 Blood hematocrit (volume fraction) 36 % 35-52 Automated erythrocyte mean corpuscular volume 91 [ foz_us] 80-99 Automated erythrocyte mean corpuscular h emoglobin (mass per erythrocyte) 28 pg 25-34 Automated erythrocyte mean corpuscular h emoglobin concentration measurement (mass/volume) 30 g/dL 32-36 Automated erythrocyte distribution width ratio 15. 9 % 10.0- 14.5 Automated blood platelet count (count/volume) 403 10*3/uL [...] 10*3 1.0-4.0 Blood monocytes automated count (number/volume) 0. 7 10*3 0.0-1.0 Automated eosinophil count 0.3 10*3/uL 0 .0-0.3 Automated blood basophil count (count/volume) 0.0 10*3/uL 0.0-0.1 Comprehensive metabolic panel - 12/27/16 05:13 Serum or plasma sodium measurement (moles/volume) 139 mmol/L 135-145 Serum or plasma potassium measurement (moles/volume) 3.3 mmol/L 3.6-5.0 Serum or plasma chloride measurement (moles/volume) 108 mmol/L 98-107 Carbon dioxide 21 mmol/L 21-32 Serum or plasma anion gap determination (moles/volume) 10 mmol/L 5-14 Serum or plasma urea nitrogen measurement (mass/volume ) 8 mg/dL 7-18 Serum or plasma creatinine measurement (mass/volume) 0.62 mg/dL 0.60-1.30 Serum or plasma urea nitrogen/creatinine mass ratio 13 NRG Serum or plasma creatinine measurement w ith calculation of estimated glomerular filtration rate > NRG Serum or plasma glucose measurement (mass/volume) 135 mg/dL 70-105 Serum or plasma calcium measurement (mass/volume) 7.7 mg/dL 8.5-10.1 Serum or plasma total bilirubin measurement (mass/volu me) 1.1 mg/dL 0.1-1.0 Serum or plasma alkaline phosphatase bj surement (enzymatic activity/volume) 77 U/L 40-136 Serum or plasma aspartate aminotransfera se measurement (enzymatic activity/volume) 19 U/L 5-34 Serum or plasma alanine aminotransferase measurement (enzymatic activity/volume) 20 U/L 0-55 Serum or plasma protein measurement (mass/volume) 5.6 g/dL 6.4-8.2 Serum or plasma albumin measurement (mass/volume) 2.8 g/dL 3.2-4.5 Serum or plasma phosphate measurement (m ass/volume) - 12/27/16 05:13 Serum or plasma phosphate measurement (mass/volume) 1.3 mg/dL 2.3-4.7 Magnesium - 12/27/16 05:13 Magnesium 1.6 mg/dL 1.8-2.4 Vancomycin trough - 12/27/16 15:04 Vancomycin trough 12.6 ug/mL 10.0-20.0 Complete blood count (CBC) with automate d white blood cell (WBC) differential - 12/28/16 05:39 Blood leukocytes automated count (number/volume) 10.2 10*3/uL 4.3-11.0 Blood erythrocytes automated count (number/volume) 4.08 10*6/uL 4.35-5.85 Venous blood hemoglobin measurement (mass/volume) 11.3 g/dL 11.5-16.0 Blood hematocrit (volume fraction) 37 % 35-52 Automated erythrocyte mean corpuscular volume 90 [ foz_us] 80-99 Automated erythrocyte mean corpuscular h emoglobin (mass per erythrocyte) 28 pg 25-34 Automated erythrocyte mean corpuscular h emoglobin concentration measurement (mass/volume) 31 g/dL 32-36 Automated erythrocyte distribution width ratio 15. 7 % 10.0- 14.5 Automated blood platelet count (count/volume) 459 10*3/uL [...] 10*3 1.0-4.0 Blood monocytes automated count (number/volume) 0. 1 10*3 0.0-1.0 Automated eosinophil count 0.0 10*3/uL 0 .0-0.3 Automated blood basophil count (count/volume) 0.0 10*3/uL 0.0-0.1 Comprehensive metabolic panel - 12/28/16 05:39 Serum or plasma sodium measurement (moles/volume) 139 mmol/L 135-145 Serum or plasma potassium measurement (moles/volume) 4.1 mmol/L 3.6-5.0 Serum or plasma chloride measurement (moles/volume) 109 mmol/L 98-107 Carbon dioxide 20 mmol/L 21-32 Serum or plasma anion gap determination (moles/volume) 10 mmol/L 5-14 Serum or plasma urea nitrogen measurement (mass/volume ) 10 mg/dL 7-18 Serum or plasma creatinine measurement (mass/volume) 0.60 mg/dL 0.60-1.30 Serum or plasma urea nitrogen/creatinine mass ratio 17 NRG Serum or plasma creatinine measurement w ith calculation of estimated glomerular filtration rate > NRG Serum or plasma glucose measurement (mass/volume) 189 mg/dL 70-105 Serum or plasma calcium measurement (mass/volume) 7.8 mg/dL 8.5-10.1 Serum or plasma total bilirubin measurement (mass/volu me) 0.8 mg/dL 0.1-1.0 Serum or plasma alkaline phosphatase bj surement (enzymatic activity/volume) 87 U/L 40-136 Serum or plasma aspartate aminotransfera se measurement (enzymatic activity/volume) 21 U/L 5-34 Serum or plasma alanine aminotransferase measurement (enzymatic activity/volume) 22 U/L 0-55 Serum or plasma protein measurement (mass/volume) 6.3 g/dL 6.4-8.2 Serum or plasma albumin measurement (mass/volume) 3.1 g/dL 3.2-4.5 Complete blood count (CBC) with automate d white blood cell (WBC) differential - 12/26/17 18:30 Blood leukocytes automated count (number/volume) 9.8 10*3/uL 4.3-11.0 Blood erythrocytes automated count (number/volume) 4.11 10*6/uL 4.35-5.85 Venous blood hemoglobin measurement (mass/volume) 12.9 g/dL 11.5-16.0 Blood hematocrit (volume fraction) 39 % 35-52 Automated erythrocyte mean corpuscular volume 95 [ foz_us] 80-99 Automated erythrocyte mean corpuscular h emoglobin (mass per erythrocyte) 31 pg 25-34 Automated erythrocyte mean corpuscular h emoglobin concentration measurement (mass/volume) 33 g/dL 32-36 Automated erythrocyte distribution width ratio 13. 1 % 10.0- 14.5 Automated blood platelet count (count/volume) 264 10*3/uL [...] 10*3 1.0-4.0 Blood monocytes automated count (number/volume) 0. 8 10*3 0.0-1.0 Automated eosinophil count 0.2 10*3/uL 0 .0-0.3 Automated blood basophil count (count/volume) 0.1 10*3/uL 0.0-0.1 Blood lactic acid measurement (moles/vol ume) - 12/26/17 18:30 Blood lactic acid measurement (moles/volume) 1.19 mmol/L 0.50-2.00 PT panel in platelet poor plasma by coag ulation assay - 12/26/17 18:30 Prothrombin time (PT) in platelet poor plasma by coagu lation assay 17.6 s 12.2-14.7 INR in platelet poor plasma or blood by coagulation as say 1.4 0.8-1.4 Activated partial thromboplastin time (a PTT) in platelet poor plasma bycoagulation assay - 12/26/17 18:30 Activated partial thromboplastin time (a PTT) in platelet poor plasma bycoagulation assay 33 s 24-35 Comprehensive metabolic panel - 12/26/17 18:30 Serum or plasma sodium measurement (moles/volume) 136 mmol/L 135-145 Serum or plasma potassium measurement (moles/volume) 4.0 mmol/L 3.6-5.0 Serum or plasma chloride measurement (moles/volume) 101 mmol/L 98-107 Carbon dioxide 28 mmol/L 21-32 Serum or plasma anion gap determination (moles/volume) 7 mmol/L 5-14 Serum or plasma urea nitrogen measurement (mass/volume ) 10 mg/dL 7-18 Serum or plasma creatinine measurement (mass/volume) 0.71 mg/dL 0.60-1.30 Serum or plasma urea nitrogen/creatinine mass ratio 14 NRG Serum or plasma creatinine measurement w ith calculation of estimated glomerular filtration rate > NRG Serum or plasma glucose measurement (mass/volume) 157 mg/dL 70-105 Serum or plasma calcium measurement (mass/volume) 8.9 mg/dL 8.5-10.1 Serum or plasma total bilirubin measurement (mass/volu me) 2.0 mg/dL 0.1-1.0 Serum or plasma alkaline phosphatase bj surement (enzymatic activity/volume) 128 U/L 40-136 Serum or plasma aspartate aminotransfera se measurement (enzymatic activity/volume) 24 U/L 5-34 Serum or plasma alanine aminotransferase measurement (enzymatic activity/volume) 25 U/L 0-55 Serum or plasma protein measurement (mass/volume) 6.9 g/dL 6.4-8.2 Serum or plasma albumin measurement (mass/volume) 3.7 g/dL 3.2-4.5 Serum or plasma lithium measurement (mol es/volume) - 12/26/17 18:30 BNP level 399.8 pg/mL <100.0 Bacterial blood culture - 12/26/17 18:30 Bacterial blood culture NG NRG Arterial blood gas measurement - 8 18:52 Blood pCO2 46 mm[Hg] 35-45 Blood pO2 81 mm[Hg] 79-93 Arterial blood bicarbonate measurement (moles/volume) 26 mmol/L 23-27 Arterial blood base excess by calculation 2.0 mmol /L -2.5-2.5 Arterial blood oxygen saturation measurement 96 % 94-100 * Inhaled oxygen flow rate 3L NRG Arterial blood pH measurement with patient temperature correction 7.39 7.37-7.43 Arterial blood carbon dioxide, total measurement (mole s/volume) 27.6 mmol/L 21.0-31.0 Body site RIGHT RADIAL NRG Assessment of wrist artery patency prior to arterial p uncture YES-POS NRG Setting of ventilation mode NO NR G Measurement of body temperature 100.9 NRG Influenza virus A and B antigen detectio n - 12/26/17 19:12 CALL POSITIVES (F1 HELP) [employer] NRG FLU RESULT POSITIVE FOR INFLUENZA B ANT IGEN, NEG FOR A ANTIGEN, BY IA NRG Bacterial blood culture - 12/26/17 19:22 Bacterial blood culture NG NRG Complete urinalysis with reflex to cultu re - 12/26/17 20:17 Urine color determination YELLOW NRG Urine clarity determination CLEAR NR G Urine pH measurement by test strip 7 5-9 Specific gravity of urine by test strip 1.015 1.016-1.022 Urine protein assay by test strip, semi-quantitative 3+ NEGATIVE Urine glucose detection by automated test strip NE GATIVE NEGATIVE Erythrocytes detection in urine sediment by light micr oscopy 2+ NEGATIVE Urine ketones detection by automated test strip NE GATIVE NEGATIVE Urine nitrite detection by test strip NEGATIVE NEGATIVE Urine total bilirubin detection by test strip NEGA TIVE NEGATIVE Urine urobilinogen measurement by automated test strip (mass/volume) 8 mg/dL NORMAL Urine leukocyte esterase detection by dipstick 3+ NEGATIVE Automated urine sediment erythrocyte cou nt by microscopy (number/high power field) [HPF] NRG Automated urine sediment leukocyte count by microscopy (number/high power field) [HPF] NRG Bacteria detection in urine sediment by light microsco py FEW NRG Squamous epithelial cells detection in u rine sediment by light microscopy 5-10 NRG Crystals detection in urine sediment by light microsco py NONE NRG Casts detection in urine sediment by light microscopy NONE NRG Mucus detection in urine sediment by light microscopy NEGATIVE NRG Complete urinalysis with reflex to culture YES NRG Bacterial urine culture - 12/26/17 20:17 URINE CULTURE RESULTS <10,000/ML NRG Complete blood count (CBC) with automate d white blood cell (WBC) differential - 12/26/17 23:35 Blood leukocytes automated count (number/volume) 9.3 10*3/uL 4.3-11.0 Blood erythrocytes automated count (number/volume) 4.25 10*6/uL 4.35-5.85 Venous blood hemoglobin measurement (mass/volume) 13.4 g/dL 11.5-16.0 Blood hematocrit (volume fraction) 40 % 35-52 Automated erythrocyte mean corpuscular volume 95 [ foz_us] 80-99 Automated erythrocyte mean corpuscular h emoglobin (mass per erythrocyte) 32 pg 25-34 Automated erythrocyte mean corpuscular h emoglobin concentration measurement (mass/volume) 33 g/dL 32-36 Automated erythrocyte distribution width ratio 13. 0 % 10.0- 14.5 Automated blood platelet count (count/volume) 276 10*3/uL [...] 10*3 1.0-4.0 Blood monocytes automated count (number/volume) 0. 9 10*3 0.0-1.0 Automated eosinophil count 0.2 10*3/uL 0 .0-0.3 Automated blood basophil count (count/volume) 0.0 10*3/uL 0.0-0.1 Comprehensive metabolic panel - 12/26/17 23:35 Serum or plasma sodium measurement (moles/volume) 138 mmol/L 135-145 Serum or plasma potassium measurement (moles/volume) 3.7 mmol/L 3.6-5.0 Serum or plasma chloride measurement (moles/volume) 99 mmol/L 98-107 Carbon dioxide 29 mmol/L 21-32 Serum or plasma anion gap determination (moles/volume) 10 mmol/L 5-14 Serum or plasma urea nitrogen measurement (mass/volume ) 10 mg/dL 7-18 Serum or plasma creatinine measurement (mass/volume) 0.74 mg/dL 0.60-1.30 Serum or plasma urea nitrogen/creatinine mass ratio 14 NRG Serum or plasma creatinine measurement w ith calculation of estimated glomerular filtration rate > NRG Serum or plasma glucose measurement (mass/volume) 125 mg/dL 70-105 Serum or plasma calcium measurement (mass/volume) 8.7 mg/dL 8.5-10.1 Serum or plasma total bilirubin measurement (mass/volu me) 1.9 mg/dL 0.1-1.0 Serum or plasma alkaline phosphatase bj surement (enzymatic activity/volume) 135 U/L 40-136 Serum or plasma aspartate aminotransfera se measurement (enzymatic activity/volume) 24 U/L 5-34 Serum or plasma alanine aminotransferase measurement (enzymatic activity/volume) 22 U/L 0-55 Serum or plasma protein [...] 5-14 Serum or plasma urea nitrogen measurement (mass/volume ) 10 mg/dL 7-18 Serum or plasma creatinine measurement (mass/volume) 0.66 mg/dL 0.60-1.30 Serum or plasma urea nitrogen/creatinine mass ratio 15 NRG Serum or plasma creatinine measurement w ith calculation of estimated glomerular filtration rate > NRG Serum or plasma glucose measurement (mass/volume) 109 mg/dL 70-105 Serum or plasma calcium measurement (mass/volume) 8.4 mg/dL 8.5-10.1 Serum or plasma total bilirubin measurement (mass/volu me) 2.1 mg/dL 0.1-1.0 Serum or plasma alkaline phosphatase bj surement (enzymatic activity/volume) 131 U/L 40-136 Serum or plasma aspartate aminotransfera se measurement (enzymatic activity/volume) 23 U/L 5-34 Serum or plasma alanine aminotransferase measurement (enzymatic activity/volume) 22 U/L 0-55 Serum or plasma protein measurement (mass/volume) 7.0 g/dL 6.4-8.2 Serum or plasma albumin measurement (mass/volume) 3.6 g/dL 3.2-4.5 Complete blood count (CBC) with automate d white blood cell (WBC) differential - 12/27/17 06:06 Blood leukocytes automated count (number/volume) 10.3 10*3/uL 4.3-11.0 Blood erythrocytes automated count (number/volume) 4.28 10*6/uL 4.35-5.85 Venous blood hemoglobin measurement (mass/volume) 13.3 g/dL 11.5-16.0 Blood hematocrit (volume fraction) 40 % 35-52 Automated erythrocyte mean corpuscular volume 94 [ foz_us] 80-99 Automated erythrocyte mean corpuscular h emoglobin (mass per erythrocyte) 31 pg 25-34 Automated erythrocyte mean corpuscular h emoglobin concentration measurement (mass/volume) 33 g/dL 32-36 Automated erythrocyte distribution width ratio 13. 0 % 10.0- 14.5 Automated blood platelet count (count/volume) 267 10*3/uL [...] 10*3 1.0-4.0 Blood monocytes automated count (number/volume) 0. 9 10*3 0.0-1.0 Automated eosinophil count 0.2 10*3/uL 0 .0-0.3 Automated blood basophil count (count/volume) 0.0 10*3/uL 0.0-0.1 Complete blood count (CBC) with automate d white blood cell (WBC) differential - 12/28/17 06:15 Blood leukocytes automated count (number/volume) 11.3 10*3/uL 4.3-11.0 Blood erythrocytes automated count (number/volume) 4.52 10*6/uL 4.35-5.85 Venous blood hemoglobin measurement (mass/volume) 14.1 g/dL 11.5-16.0 Blood hematocrit (volume fraction) 42 % 35-52 Automated erythrocyte mean corpuscular volume 93 [ foz_us] 80-99 Automated erythrocyte mean corpuscular h emoglobin (mass per erythrocyte) 31 pg 25-34 Automated erythrocyte mean corpuscular h emoglobin concentration measurement (mass/volume) 33 g/dL 32-36 Automated erythrocyte distribution width ratio 12. 9 % 10.0- 14.5 Automated blood platelet count (count/volume) 284 10*3/uL [...] 10*3 1.0-4.0 Blood monocytes automated count (number/volume) 0. 8 10*3 0.0-1.0 Automated eosinophil count 0.3 10*3/uL 0 .0-0.3 Automated blood basophil count (count/volume) 0.0 10*3/uL 0.0-0.1 Comprehensive metabolic panel - 12/28/17 06:15 Serum or plasma sodium measurement (moles/volume) 138 mmol/L 135-145 Serum or plasma potassium measurement (moles/volume) 3.2 mmol/L 3.6-5.0 Serum or plasma chloride measurement (moles/volume) 103 mmol/L 98-107 Carbon dioxide 27 mmol/L 21-32 Serum or plasma anion gap determination (moles/volume) 8 mmol/L 5-14 Serum or plasma urea nitrogen measurement (mass/volume ) 11 mg/dL 7-18 Serum or plasma creatinine measurement (mass/volume) 0.68 mg/dL 0.60-1.30 Serum or plasma urea nitrogen/creatinine mass ratio 16 NRG Serum or plasma creatinine measurement w ith calculation of estimated glomerular filtration rate > NRG Serum or plasma glucose measurement (mass/volume) 105 mg/dL 70-105 Serum or plasma calcium measurement (mass/volume) 8.5 mg/dL 8.5-10.1 Serum or plasma total bilirubin measurement (mass/volu me) 1.8 mg/dL 0.1-1.0 Serum or plasma alkaline phosphatase bj surement (enzymatic activity/volume) 120 U/L 40-136 Serum or plasma aspartate aminotransfera se measurement (enzymatic activity/volume) 18 U/L 5-34 Serum or plasma alanine aminotransferase measurement (enzymatic activity/volume) 19 U/L 0-55 Serum or plasma protein measurement (mass/volume) 6.8 g/dL 6.4-8.2 Serum or plasma albumin measurement (mass/volume) 3.4 g/dL 3.2-4.5 Magnesium - 12/28/17 06:15 Magnesium 1.7 mg/dL 1.8-2.4 THYROID STIMULATING HORMONE - 12/28/17 0 6:15 THYROID STIMULATING HORMONE 0.92 u[iU]/mL 0.35-4.94 Complete blood count (CBC) with automate d white blood cell (WBC) differential - 03/20/18 00:40 Blood leukocytes automated count (number/volume) 8.5 10*3/uL 4.3-11.0 Blood erythrocytes automated count (number/volume) 4.95 10*6/uL 4.35-5.85 Venous blood hemoglobin measurement (mass/volume) 15.5 g/dL 11.5-16.0 Blood hematocrit (volume fraction) 45 % 35-52 Automated erythrocyte mean corpuscular volume 91 [ foz_us] 80-99 Automated erythrocyte mean corpuscular h emoglobin (mass per erythrocyte) 31 pg 25-34 Automated erythrocyte mean corpuscular h emoglobin concentration measurement (mass/volume) 34 g/dL 32-36 Automated erythrocyte distribution width ratio 14. 1 % 10.0- 14.5 Automated blood platelet count (count/volume) 238 10*3/uL 130-400 Automated blood platelet mean volume measurement 10.9 [foz_us] 7.4-10.4 Automated blood neutrophils/100 leukocytes 83 % 42-75 Automated blood lymphocytes/100 leukocytes 10 % 12-44 Blood monocytes/100 leukocytes 7 % 0-12 Automated blood eosinophils/100 leukocytes 1 % 0-10 Automated blood basophils/100 leukocytes 1 % 0-10 Blood neutrophils automated count (number/volume) 7.0 10*3 1.8-7.8 Blood lymphocytes automated count (number/volume) 0.8 10*3 1.0-4.0 Blood monocytes automated count (number/volume) 0. 6 10*3 0.0-1.0 Automated eosinophil count 0.1 10*3/uL 0 .0-0.3 Automated blood basophil count (count/volume) 0.0 10*3/uL 0.0-0.1 PT panel in platelet poor plasma by coag ulation assay - 03/20/18 00:40 Prothrombin time (PT) in platelet poor plasma by coagu lation assay 13.7 s 12.2-14.7 INR in platelet poor plasma or blood by coagulation as say 1.1 0.8-1.4 Activated partial thromboplastin time (a PTT) in platelet poor plasma bycoagulation assay - 03/20/18 00:40 Activated partial thromboplastin time (a PTT) in platelet poor plasma bycoagulation assay 28 s 24-35 Blood lactic acid measurement (moles/vol ume) - 03/20/18 00:40 Blood lactic acid measurement (moles/volume) 1.58 mmol/L 0.50-2.00 Comprehensive metabolic panel - 03/20/18 00:40 Serum or plasma sodium measurement (moles/volume) 139 mmol/L 135-145 Serum or plasma potassium measurement (moles/volume) 3.6 mmol/L 3.6-5.0 Serum or plasma chloride measurement (moles/volume) 100 mmol/L 98-107 Carbon dioxide 25 mmol/L 21-32 Serum or plasma anion gap determination (moles/volume) 14 mmol/L 5-14 Serum or plasma urea nitrogen measurement (mass/volume ) 12 mg/dL 7-18 Serum or plasma creatinine measurement (mass/volume) 0.74 mg/dL 0.60-1.30 Serum or plasma urea nitrogen/creatinine mass ratio 16 NRG Serum or plasma creatinine measurement w ith calculation of estimated glomerular filtration rate > NRG Serum or plasma glucose measurement (mass/volume) 118 mg/dL 70-105 Serum or plasma calcium measurement (mass/volume) 9.6 mg/dL 8.5-10.1 Serum or plasma total bilirubin measurement (mass/volu me) 1.5 mg/dL 0.1-1.0 Serum or plasma alkaline phosphatase bj surement (enzymatic activity/volume) 125 U/L 40-136 Serum or plasma aspartate aminotransfera se measurement (enzymatic activity/volume) 38 U/L 5-34 Serum or plasma alanine aminotransferase measurement (enzymatic activity/volume) 39 U/L 0-55 Serum or plasma protein measurement (mass/volume) 7.6 g/dL 6.4-8.2 Serum or plasma albumin measurement (mass/volume) 3.9 g/dL 3.2-4.5 Serum or plasma lithium measurement (mol es/volume) - 03/20/18 00:40 BNP level 646.8 pg/mL <100.0 Bacterial blood culture - 03/20/18 00:40 Bacterial blood culture NG NRG Bacterial blood culture - 03/20/18 00:59 Bacterial blood culture NG NRG Complete blood count (CBC) with automate d white blood cell (WBC) differential - 11/01/18 23:53 Blood leukocytes automated count (number/volume) 10.5 10*3/uL 4.3-11.0 Blood erythrocytes automated count (number/volume) 4.61 10*6/uL 4.35-5.85 Venous blood hemoglobin measurement (mass/volume) 13.7 g/dL 11.5-16.0 Blood hematocrit (volume fraction) 42 % 35-52 Automated erythrocyte mean corpuscular volume 92 [ foz_us] 80-99 Automated erythrocyte mean corpuscular h emoglobin (mass per erythrocyte) 30 pg 25-34 Automated erythrocyte mean corpuscular h emoglobin concentration measurement (mass/volume) 32 g/dL 32-36 Automated erythrocyte distribution width ratio 14. 0 % 10.0- 14.5 Automated blood platelet count (count/volume) 333 10*3/uL 130-400 Automated blood platelet mean volume measurement 10.3 [foz_us] 7.4-10.4 Automated blood neutrophils/100 leukocytes 80 % 42-75 Automated blood lymphocytes/100 leukocytes 14 % 12-44 Blood monocytes/100 leukocytes 4 % 0-12 Automated blood eosinophils/100 leukocytes 3 % 0-10 Automated blood basophils/100 leukocytes 0 % 0-10 Blood neutrophils automated count (number/volume) 8.4 10*3 1.8-7.8 Blood lymphocytes automated count (number/volume) 1.4 10*3 1.0-4.0 Blood monocytes automated count (number/volume) 0. 4 10*3 0.0-1.0 Automated eosinophil count 0.3 10*3/uL 0 .0-0.3 Automated blood basophil count (count/volume) 0.0 10*3/uL 0.0-0.1 Serum or plasma lithium measurement (mol es/volume) - 11/01/18 23:53 BNP level 206.3 pg/mL <100.0 Serum or plasma C reactive protein measu rement (mass/volume) - 11/01/18 23:53 Serum or plasma C reactive protein measurement (mass/v olume) 4.96 mg/dL 0.00-0.50 Comprehensive metabolic panel - 11/01/18 23:53 Serum or plasma sodium measurement (moles/volume) 139 mmol/L 135-145 Serum or plasma potassium measurement (moles/volume) 3.7 mmol/L 3.6-5.0 Serum or plasma chloride measurement (moles/volume) 102 mmol/L 98-107 Carbon dioxide 25 mmol/L 21-32 Serum or plasma anion gap determination (moles/volume) 12 mmol/L 5-14 Serum or plasma urea nitrogen measurement (mass/volume ) 9 mg/dL 7-18 Serum or plasma creatinine measurement (mass/volume) 0.75 mg/dL 0.60-1.30 Serum or plasma urea nitrogen/creatinine mass ratio 12 NRG Serum or plasma creatinine measurement w ith calculation of estimated glomerular filtration rate > NRG Serum or plasma glucose measurement (mass/volume) 129 mg/dL 70-105 Serum or plasma calcium measurement (mass/volume) 9.3 mg/dL 8.5-10.1 Serum or plasma total bilirubin measurement (mass/volu me) 1.1 mg/dL 0.1-1.0 Serum or plasma alkaline phosphatase bj surement (enzymatic activity/volume) 142 U/L 40-136 Serum or plasma aspartate aminotransfera se measurement (enzymatic activity/volume) 27 U/L 5-34 Serum or plasma alanine aminotransferase measurement (enzymatic activity/volume) 20 U/L 0-55 Serum or plasma protein measurement (mass/volume) 7.5 g/dL 6.4-8.2 Serum or plasma albumin measurement (mass/volume) 3.9 g/dL 3.2-4.5 CALCIUM CORRECTED 9.4 mg/dL 8.5-10.1 Magnesium - 11/01/18 23:53 Magnesium 1.8 mg/dL 1.8-2.4 PT panel in platelet poor plasma by coag ulation assay - 11/01/18 23:53 Prothrombin time (PT) in platelet poor plasma by coagu lation assay 14.8 s 12.2-14.7 INR in platelet poor plasma or blood by coagulation as say 1.2 0.8-1.4 Activated partial thromboplastin time (a PTT) in platelet poor plasma bycoagulation assay - 11/01/18 23:53 Activated partial thromboplastin time (a PTT) in platelet poor plasma bycoagulation assay 31 s 24-35 Serum or plasma troponin i.cardiac measu rement (mass/volume) - 11/01/18 23:53 Serum or plasma troponin i.cardiac measurement (mass/v olume) < ng/mL <0.028 Myoglobin, serum - 11/01/18 23:53 Myoglobin, serum 35.5 ng/mL 10.0-92.0 Lipid 1996 panel - 11/02/18 07:14 Serum or plasma triglyceride measurement (mass/volume) 111 mg/dL <150 Serum or plasma cholesterol measurement (mass/volume) 138 mg/dL < 200 Serum or plasma cholesterol in HDL measurement (mass/v olume) 40 mg/dL 40-60 Cholesterol in LDL [mass/volume] in serum or plasma by direct assay 83 mg/dL 1-129 Serum or plasma cholesterol in VLDL measurement (mass/ volume) 22 mg/dL 5-40 Automated blood complete blood count (he mogram) panel - 02/22/19 11:00 Blood leukocytes automated count (number/volume) 9.5 10*3/uL 4.3-11.0 Blood erythrocytes automated count (number/volume) 4.29 10*6/uL 4.35-5.85 Venous blood hemoglobin measurement (mass/volume) 12.2 g/dL 11.5-16.0 Blood hematocrit (volume fraction) 40 % 35-52 Automated erythrocyte mean corpuscular volume 92 [ foz_us] 80-99 Automated erythrocyte mean corpuscular h emoglobin (mass per erythrocyte) 28 pg 25-34 Automated erythrocyte mean corpuscular h emoglobin concentration measurement (mass/volume) 31 g/dL 32-36 Automated erythrocyte distribution width ratio 15. 0 % 10.0- 14.5 Automated blood platelet count (count/volume) 383 10*3/uL 130-400 Automated blood platelet mean volume measurement 9.8 [foz_us] 7.4-10.4 Comprehensive metabolic panel - 02/22/19 11:00 Serum or plasma sodium measurement (moles/volume) 140 mmol/L 135-145 Serum or plasma potassium measurement (moles/volume) 4.5 mmol/L 3.6-5.0 Serum or plasma chloride measurement (moles/volume) 102 mmol/L 98-107 Carbon dioxide 29 mmol/L 21-32 Serum or plasma anion gap determination (moles/volume) 9 mmol/L 5-14 Serum or plasma urea nitrogen measurement (mass/volume ) 11 mg/dL 7-18 Serum or plasma creatinine measurement (mass/volume) 0.80 mg/dL 0.60-1.30 Serum or plasma urea nitrogen/creatinine mass ratio 14 NRG Serum or plasma creatinine measurement w ith calculation of estimated glomerular filtration rate > NRG Serum or plasma glucose measurement (mass/volume) 116 mg/dL 70-105 Serum or plasma calcium measurement (mass/volume) 10.0 mg/dL 8.5-10.1 Serum or plasma total bilirubin measurement (mass/volu me) 1.7 mg/dL 0.1-1.0 Serum or plasma alkaline phosphatase bj surement (enzymatic activity/volume) 106 U/L 40-136 Serum or plasma aspartate aminotransfera se measurement (enzymatic activity/volume) 26 U/L 5-34 Serum or plasma alanine aminotransferase measurement (enzymatic activity/volume) 20 U/L 0-55 Serum or plasma protein measurement (mass/volume) 6.9 g/dL 6.4-8.2 Serum or plasma albumin measurement (mass/volume) 3.7 g/dL 3.2-4.5 CALCIUM CORRECTED 10.2 mg/dL 8.5-10.1 Serum or plasma lithium measurement (mol es/volume) - 02/22/19 11:00 BNP level 612.0 pg/mL <100.0 Erythrocyte sedimentation rate by katja gren method - 02/22/19 11:00 Erythrocyte sedimentation rate by westergren method 29 mm 0- 30 Serum iron and total iron binding capaci ty panel - 02/22/19 11:00 Serum or plasma iron measurement (mass/volume) 50 % 35-180 Total iron binding capacity and transferrin saturation measurement 13 % 15-50 Iron binding capacity [mass/volume] in serum or plasma 399 % 280-380 UIBC (unsaturated iron binding capacity) 349 % 55-450 Serum or plasma ferritin measurement (mass/volume) 211.1 % 20.0-177.0 Complete blood count (CBC) with automate d white blood cell (WBC) differential - 10/06/19 21:20 Blood leukocytes automated count (number/volume) 17.4 10*3/uL 4.3-11.0 Blood erythrocytes automated count (number/volume) 4.71 10*6/uL 4.35-5.85 Venous blood hemoglobin measurement (mass/volume) 13.5 g/dL 11.5-16.0 Blood hematocrit (volume fraction) 42 % 35-52 Automated erythrocyte mean corpuscular volume 89 [ foz_us] 80-99 Automated erythrocyte mean corpuscular h emoglobin (mass per erythrocyte) 29 pg 25-34 Automated erythrocyte mean corpuscular h emoglobin concentration measurement (mass/volume) 32 g/dL 32-36 Automated erythrocyte distribution width ratio 15. 7 % 10.0- 14.5 Automated blood platelet count (count/volume) 363 10*3/uL 130-400 Automated blood platelet mean volume measurement 10.0 [foz_us] 7.4-10.4 Automated blood neutrophils/100 leukocytes 89 % 42-75 Automated blood lymphocytes/100 leukocytes 6 % 12-44 Blood monocytes/100 leukocytes 4 % 0-12 Automated blood eosinophils/100 leukocytes 0 % 0-10 Automated blood basophils/100 leukocytes 0 % 0-10 Blood neutrophils automated count (number/volume) 15.5 10*3 1.8-7.8 Blood lymphocytes automated count (number/volume) 1.0 10*3 1.0-4.0 Blood monocytes automated count (number/volume) 0. 8 10*3 0.0-1.0 Automated eosinophil count 0.0 10*3/uL 0 .0-0.3 Automated blood basophil count (count/volume) 0.0 10*3/uL 0.0-0.1 Comprehensive metabolic panel - 10/06/19 21:20 Serum or plasma sodium measurement (moles/volume) 137 mmol/L 135-145 Serum or plasma potassium measurement (moles/volume) 3.9 mmol/L 3.6-5.0 Serum or plasma chloride measurement (moles/volume) 99 mmol/L 98-107 Carbon dioxide 23 mmol/L 21-32 Serum or plasma anion gap determination (moles/volume) 15 mmol/L 5-14 Serum or plasma urea nitrogen measurement (mass/volume ) 14 mg/dL 7-18 Serum or plasma creatinine measurement (mass/volume) 0.98 mg/dL 0.60-1.30 Serum or plasma urea nitrogen/creatinine mass ratio 14 NRG Serum or plasma creatinine measurement w ith calculation of estimated glomerular filtration rate 55 NRG Serum or plasma glucose measurement (mass/volume) 136 mg/dL 70-105 Serum or plasma calcium measurement (mass/volume) 9.5 mg/dL 8.5-10.1 Serum or plasma total bilirubin measurement (mass/volu me) 2.9 mg/dL 0.1-1.0 Serum or plasma alkaline phosphatase bj surement (enzymatic activity/volume) 119 U/L 40-136 Serum or plasma aspartate aminotransfera se measurement (enzymatic activity/volume) 22 U/L 5-34 Serum or plasma alanine aminotransferase measurement (enzymatic activity/volume) 22 U/L 0-55 Serum or plasma protein measurement (mass/volume) 7.4 g/dL 6.4-8.2 Serum or plasma albumin measurement (mass/volume) 3.8 g/dL 3.2-4.5 CALCIUM CORRECTED 9.7 mg/dL 8.5-10.1 Magnesium - 10/06/19 21:20 Magnesium 1.5 mg/dL 1.6-2.4 Myoglobin, serum - 10/06/19 21:20 Myoglobin, serum 64.1 ng/mL 10.0-92.0 Serum or plasma troponin i.cardiac measu rement (mass/volume) - 10/06/19 21:20 Serum or plasma troponin i.cardiac measurement (mass/v olume) < ng/mL <0.028 Serum or plasma C reactive protein measu rement (mass/volume) - 10/06/19 21:20 Serum or plasma C reactive protein measurement (mass/v olume) 10.07 mg/dL 0.00-0.50 Manual absolute plasma cell count - 09/18 21:20 Blood monocytes/100 leukocytes 5 % NRG Manual blood segmented neutrophils/100 leukocytes 85 % NRG Manual blood lymphocytes/100 leukocytes 10 % NRG Blood erythrocyte morphology finding identification NORMAL NR Manual blood nucleated erythrocytes/100 leukocytes ratio 1 NRG PT panel in platelet poor plasma by coag ulation assay - 10/06/19 21:20 Prothrombin time (PT) in platelet poor plasma by coagu lation assay 15.5 s 12.2-14.7 INR in platelet poor plasma or blood by coagulation as say 1.2 0.8-1.4 Activated partial thromboplastin time (a PTT) in platelet poor plasma bycoagulation assay - 10/06/19 21:20 Activated partial thromboplastin time (a PTT) in platelet poor plasma bycoagulation assay 29 s 24-35 Serum or plasma lithium measurement (mol es/volume) - 10/06/19 21:20 BNP PT 432.7 pg/mL <100.0 Blood lactic acid measurement (moles/vol ume) - 10/06/19 21:20 Blood lactic acid measurement (moles/volume) 1.47 mmol/L 0.50-2.00 THYROID STIMULATING HORMONE - 10/06/19 2 1:20 THYROID STIMULATING HORMONE 2.46 u[iU]/mL 0.35-4.94 Serum or plasma thyroxine (T4) free geni urement (mass/volume) - 10/06/19 21:20 Serum or plasma thyroxine (T4) free measurement (mass/ volume) 0.94 ng/dL 0.70-1.48 Bacterial blood culture - 10/06/19 21:20 Bacterial blood culture NG NRG Bacterial blood culture - 10/06/19 22:51 Bacterial blood culture NG NRG Complete urinalysis with reflex to cultu re - 10/07/19 00:08 Urine color determination YELLOW NRG Urine clarity determination CLEAR NR G Urine pH measurement by test strip 5.5 5-9 Specific gravity of urine by test strip >= 1.016-1.022 Urine protein assay by test strip, semi-quantitative 3+ NEGATIVE Urine glucose detection by automated test strip NE GATIVE NEGATIVE Erythrocytes detection in urine sediment by light micr oscopy 1+ NEGATIVE Urine ketones detection by automated test strip TR HESHAM NEGATIVE Urine nitrite detection by test strip NEGATIVE NEGATIVE Urine total bilirubin detection by test strip 1+ NEGATIVE Urine urobilinogen measurement by automated test strip (mass/volume) 0.2 mg/dL < = 1.0 Urine leukocyte esterase detection by dipstick NEG ATIVE NEGATIVE Automated urine sediment erythrocyte cou nt by microscopy (number/high power field) [HPF] NRG Automated urine sediment leukocyte count by microscopy (number/high power field) [HPF] NRG Bacteria detection in urine sediment by light microsco py FEW NRG Crystals detection in urine sediment by light microsco py PRESENT NRG Casts detection in urine sediment by light microscopy NONE NRG Mucus detection in urine sediment by light microscopy NEGATIVE NRG Complete urinalysis with reflex to culture YES NRG Amorphous sediment detection in urine sediment by ligh t microscopy MOD WALDEMAR URATES NRG Bacterial urine culture - 10/07/19 00:08 Bacterial urine culture NG NRG Methicillin resistant Staphylococcus aur eus (MRSA) screening culture - 10/07/19 00:42 Methicillin resistant Staphylococcus aureus (MRSA) scr eening culture NEG NRG Complete blood count (CBC) with automate d white blood cell (WBC) differential - 10/07/19 02:36 Blood leukocytes automated count (number/volume) 18.4 10*3/uL 4.3-11.0 Blood erythrocytes automated count (number/volume) 4.26 10*6/uL 4.35-5.85 Venous blood hemoglobin measurement (mass/volume) 12.4 g/dL 11.5-16.0 Blood hematocrit (volume fraction) 38 % 35-52 Automated erythrocyte mean corpuscular volume 90 [ foz_us] 80-99 Automated erythrocyte mean corpuscular h emoglobin (mass per erythrocyte) 29 pg 25-34 Automated erythrocyte mean corpuscular h emoglobin concentration measurement (mass/volume) 32 g/dL 32-36 Automated erythrocyte distribution width ratio 15. 6 % 10.0- 14.5 Automated blood platelet count (count/volume) 325 10*3/uL 130-400 Automated blood platelet mean volume measurement 10.6 [foz_us] 7.4-10.4 Automated blood neutrophils/100 leukocytes 95 % 42-75 Automated blood lymphocytes/100 leukocytes 2 % 12-44 Blood monocytes/100 leukocytes 3 % 0-12 Automated blood eosinophils/100 leukocytes 0 % 0-10 Automated blood basophils/100 leukocytes 0 % 0-10 Blood neutrophils automated count (number/volume) 17.6 10*3 1.8-7.8 Blood lymphocytes automated count (number/volume) 0.4 10*3 1.0-4.0 Blood monocytes automated count (number/volume) 0. 5 10*3 0.0-1.0 Automated eosinophil count 0.0 10*3/uL 0 .0-0.3 Automated blood basophil count (count/volume) 0.0 10*3/uL 0.0-0.1 Comprehensive metabolic panel - 10/07/19 02:36 Serum or plasma sodium measurement (moles/volume) 134 mmol/L 135-145 Serum or plasma potassium measurement (moles/volume) 3.3 mmol/L 3.6-5.0 Serum or plasma chloride measurement (moles/volume) 100 mmol/L 98-107 Carbon dioxide 17 mmol/L 21-32 Serum or plasma anion gap determination (moles/volume) 17 mmol/L 5-14 Serum or plasma urea nitrogen measurement (mass/volume ) 14 mg/dL 7-18 Serum or plasma creatinine measurement (mass/volume) 0.93 mg/dL 0.60-1.30 Serum or plasma urea nitrogen/creatinine mass ratio 15 NRG Serum or plasma creatinine measurement w ith calculation of estimated glomerular filtration rate 59 NRG Serum or plasma glucose measurement (mass/volume) 268 mg/dL 70-105 Serum or plasma calcium measurement (mass/volume) 8.9 mg/dL 8.5-10.1 Serum or plasma total bilirubin measurement (mass/volu me) 2.6 mg/dL 0.1-1.0 Serum or plasma alkaline phosphatase bj surement (enzymatic activity/volume) 103 U/L 40-136 Serum or plasma aspartate aminotransfera se measurement (enzymatic activity/volume) 18 U/L 5-34 Serum or plasma alanine aminotransferase measurement (enzymatic activity/volume) 20 U/L 0-55 Serum or plasma protein measurement (mass/volume) 6.7 g/dL 6.4-8.2 Serum or plasma albumin measurement (mass/volume) 3.4 g/dL 3.2-4.5 CALCIUM CORRECTED 9.4 mg/dL 8.5-10.1 Serum or plasma phosphate measurement (m ass/volume) - 10/07/19 02:36 Serum or plasma phosphate measurement (mass/volume) 3.4 mg/dL 2.3-4.7 Magnesium - 12/21/19 02:36 Magnesium 1.4 mg/dL 1.6-2.4 Lipid 1996 panel - 10/07/19 02:36 Serum or plasma triglyceride measurement (mass/volume) 99 mg/dL <150 Serum or plasma cholesterol measurement (mass/volume) 144 mg/dL < 200 Serum or plasma cholesterol in HDL measurement (mass/v olume) 35 mg/dL 40-60 Cholesterol in LDL [mass/volume] in serum or plasma by direct assay 105 mg/dL 1-129 Serum or plasma cholesterol in VLDL measurement (mass/ volume) 20 mg/dL 5-40 Arterial blood gas measurement - 9 14:24 Blood pCO2 27 mm[Hg] 35-45 Blood pO2 165 mm[Hg] 79-93 Arterial blood bicarbonate measurement (moles/volume) 20 mmol/L 23-27 Arterial blood base excess by calculation -3.6 mmo l/L -2.5-2.5 Arterial blood oxygen saturation measurement 100 % 94-100 * Inhaled oxygen flow rate 40% NRG Arterial blood pH measurement with patient temperature correction 7.47 7.37-7.43 Arterial blood carbon dioxide, total measurement (mole s/volume) 20.7 mmol/L 21.0-31.0 Body site RT RADIAL NRG Assessment of wrist artery patency prior to arterial p uncture YES-POS NRG Setting of ventilation mode NO NR G Measurement of body temperature 35.5 NRG Complete blood count (CBC) with automate d white blood cell (WBC) differential - 10/08/19 03:09 Blood leukocytes automated count (number/volume) 21.6 10*3/uL 4.3-11.0 Blood erythrocytes automated count (number/volume) 4.17 10*6/uL 4.35-5.85 Venous blood hemoglobin measurement (mass/volume) 12.1 g/dL 11.5-16.0 Blood hematocrit (volume fraction) 38 % 35-52 Automated erythrocyte mean corpuscular volume 91 [ foz_us] 80-99 Automated erythrocyte mean corpuscular h emoglobin (mass per erythrocyte) 29 pg 25-34 Automated erythrocyte mean corpuscular h emoglobin concentration measurement (mass/volume) 32 g/dL 32-36 Automated erythrocyte distribution width ratio 16. 1 % 10.0- 14.5 Automated blood platelet count (count/volume) 312 10*3/uL 130-400 Automated blood platelet mean volume measurement 10.8 [foz_us] 7.4-10.4 Automated blood neutrophils/100 leukocytes 94 % 42-75 Automated blood lymphocytes/100 leukocytes 3 % 12-44 Blood monocytes/100 leukocytes 3 % 0-12 Automated blood eosinophils/100 leukocytes 0 % 0-10 Automated blood basophils/100 leukocytes 0 % 0-10 Blood neutrophils automated count (number/volume) 20.2 10*3 1.8-7.8 Blood lymphocytes automated count (number/volume) 0.7 10*3 1.0-4.0 Blood monocytes automated count (number/volume) 0. 6 10*3 0.0-1.0 Automated eosinophil count 0.0 10*3/uL 0 .0-0.3 Automated blood basophil count (count/volume) 0.0 10*3/uL 0.0-0.1 Whole blood basic metabolic panel - 09/18 12/06 03:09 Serum or plasma sodium measurement (moles/volume) 135 mmol/L 135-145 Serum or plasma potassium measurement (moles/volume) 5.1 mmol/L 3.6-5.0 Serum or plasma chloride measurement (moles/volume) 105 mmol/L 98-107 Carbon dioxide 17 mmol/L 21-32 Serum or plasma anion gap determination (moles/volume) 13 mmol/L 5-14 Serum or plasma urea nitrogen measurement (mass/volume ) 27 mg/dL 7-18 Serum or plasma creatinine measurement (mass/volume) 1.52 mg/dL 0.60-1.30 Serum or plasma urea nitrogen/creatinine mass ratio 18 NRG Serum or plasma creatinine measurement w ith calculation of estimated glomerular filtration rate 33 NRG Serum or plasma glucose measurement (mass/volume) 163 mg/dL 70-105 Serum or plasma calcium measurement (mass/volume) 9.3 mg/dL 8.5-10.1 Serum or plasma phosphate measurement (m ass/volume) - 10/08/19 03:09 Serum or plasma phosphate measurement (mass/volume) 4.9 mg/dL 2.3-4.7 Magnesium - 10/08/19 03:09 Magnesium 2.2 mg/dL 1.6-2.4 Serum or plasma lithium measurement (mol es/volume) - 10/08/19 03:09 BNP PT 149.6 pg/mL <100.0 Complete blood count (CBC) with automate d white blood cell (WBC) differential - 10/09/19 04:33 Blood leukocytes automated count (number/volume) 14.7 10*3/uL 4.3-11.0 Blood erythrocytes automated count (number/volume) 3.95 10*6/uL 4.35-5.85 Venous blood hemoglobin measurement (mass/volume) 11.3 g/dL 11.5-16.0 Blood hematocrit (volume fraction) 36 % 35-52 Automated erythrocyte mean corpuscular volume 91 [ foz_us] 80-99 Automated erythrocyte mean corpuscular h emoglobin (mass per erythrocyte) 29 pg 25-34 Automated erythrocyte mean corpuscular h emoglobin concentration measurement (mass/volume) 31 g/dL 32-36 Automated erythrocyte distribution width ratio 16. 0 % 10.0- 14.5 Automated blood platelet count (count/volume) 343 10*3/uL 130-400 Automated blood platelet mean volume measurement 10.8 [foz_us] 7.4-10.4 Automated blood neutrophils/100 leukocytes 93 % 42-75 Automated blood lymphocytes/100 leukocytes 3 % 12-44 Blood monocytes/100 leukocytes 4 % 0-12 Automated blood eosinophils/100 leukocytes 0 % 0-10 Automated blood basophils/100 leukocytes 0 % 0-10 Blood neutrophils automated count (number/volume) 13.7 10*3 1.8-7.8 Blood lymphocytes automated count (number/volume) 0.4 10*3 1.0-4.0 Blood monocytes automated count (number/volume) 0. 6 10*3 0.0-1.0 Automated eosinophil count 0.0 10*3/uL 0 .0-0.3 Automated blood basophil count (count/volume) 0.0 10*3/uL 0.0-0.1 Whole blood basic metabolic panel - 09/18 01/03 04:33 Serum or plasma sodium measurement (moles/volume) 139 mmol/L 135-145 Serum or plasma potassium measurement (moles/volume) 3.6 mmol/L 3.6-5.0 Serum or plasma chloride measurement (moles/volume) 106 mmol/L 98-107 Carbon dioxide 19 mmol/L 21-32 Serum or plasma anion gap determination (moles/volume) 14 mmol/L 5-14 Serum or plasma urea nitrogen measurement (mass/volume ) 42 mg/dL 7-18 Serum or plasma creatinine measurement (mass/volume) 1.47 mg/dL 0.60-1.30 Serum or plasma urea nitrogen/creatinine mass ratio 29 NRG Serum or plasma creatinine measurement w ith calculation of estimated glomerular filtration rate 35 NRG Serum or plasma glucose measurement (mass/volume) 167 mg/dL 70-105 Serum or plasma calcium measurement (mass/volume) 8.7 mg/dL 8.5-10.1 Serum or plasma phosphate measurement (m ass/volume) - 10/09/19 04:33 Serum or plasma phosphate measurement (mass/volume) 4.3 mg/dL 2.3-4.7 Magnesium - 10/09/19 04:33 Magnesium 1.8 mg/dL 1.6-2.4 Complete blood count (CBC) with automate d white blood cell (WBC) differential - 10/10/19 04:35 Blood leukocytes automated count (number/volume) 11.3 10*3/uL 4.3-11.0 Blood erythrocytes automated count (number/volume) 4.20 10*6/uL 4.35-5.85 Venous blood hemoglobin measurement (mass/volume) 12.0 g/dL 11.5-16.0 Blood hematocrit (volume fraction) 38 % 35-52 Automated erythrocyte mean corpuscular volume 91 [ foz_us] 80-99 Automated erythrocyte mean corpuscular h emoglobin (mass per erythrocyte) 29 pg 25-34 Automated erythrocyte mean corpuscular h emoglobin concentration measurement (mass/volume) 32 g/dL 32-36 Automated erythrocyte distribution width ratio 15. 5 % 10.0- 14.5 Automated blood platelet count (count/volume) 342 10*3/uL 130-400 Automated blood platelet mean volume measurement 10.7 [foz_us] 7.4-10.4 Automated blood neutrophils/100 leukocytes 93 % 42-75 Automated blood lymphocytes/100 leukocytes 4 % 12-44 Blood monocytes/100 leukocytes 4 % 0-12 Automated blood eosinophils/100 leukocytes 0 % 0-10 Automated blood basophils/100 leukocytes 0 % 0-10 Blood neutrophils automated count (number/volume) 10.5 10*3 1.8-7.8 Blood lymphocytes automated count (number/volume) 0.4 10*3 1.0-4.0 Blood monocytes automated count (number/volume) 0. 4 10*3 0.0-1.0 Automated eosinophil count 0.0 10*3/uL 0 .0-0.3 Automated blood basophil count (count/volume) 0.0 10*3/uL 0.0-0.1 Comprehensive metabolic panel - 10/10/19 04:35 Serum or plasma sodium measurement (moles/volume) 141 mmol/L 135-145 Serum or plasma potassium measurement (moles/volume) 3.6 mmol/L 3.6-5.0 Serum or plasma chloride measurement (moles/volume) 104 mmol/L 98-107 Carbon dioxide 24 mmol/L 21-32 Serum or plasma anion gap determination (moles/volume) 13 mmol/L 5-14 Serum or plasma urea nitrogen measurement (mass/volume ) 35 mg/dL 7-18 Serum or plasma creatinine measurement (mass/volume) 1.07 mg/dL 0.60-1.30 Serum or plasma urea nitrogen/creatinine mass ratio 33 NRG Serum or plasma creatinine measurement w ith calculation of estimated glomerular filtration rate 50 NRG Serum or plasma glucose measurement (mass/volume) 161 mg/dL 70-105 Serum or plasma calcium measurement (mass/volume) 9.2 mg/dL 8.5-10.1 Serum or plasma total bilirubin measurement (mass/volu me) 0.7 mg/dL 0.1-1.0 Serum or plasma alkaline phosphatase bj surement (enzymatic activity/volume) 93 U/L 40-136 Serum or plasma aspartate aminotransfera se measurement (enzymatic activity/volume) 30 U/L 5-34 Serum or plasma alanine aminotransferase measurement (enzymatic activity/volume) 43 U/L 0-55 Serum or plasma protein measurement (mass/volume) 6.1 g/dL 6.4-8.2 Serum or plasma albumin measurement (mass/volume) 3.3 g/dL 3.2-4.5 CALCIUM CORRECTED 9.8 mg/dL 8.5-10.1 Complete blood count (CBC) with automate d white blood cell (WBC) differential - 10/10/19 22:28 Blood leukocytes automated count (number/volume) 12.5 10*3/uL 4.3-11.0 Blood erythrocytes automated count (number/volume) 4.47 10*6/uL 4.35-5.85 Venous blood hemoglobin measurement (mass/volume) 13.1 g/dL 11.5-16.0 Blood hematocrit (volume fraction) 40 % 35-52 Automated erythrocyte mean corpuscular volume 90 [ foz_us] 80-99 Automated erythrocyte mean corpuscular h emoglobin (mass per erythrocyte) 29 pg 25-34 Automated erythrocyte mean corpuscular h emoglobin concentration measurement (mass/volume) 33 g/dL 32-36 Automated erythrocyte distribution width ratio 15. 6 % 10.0- 14.5 Automated blood platelet count (count/volume) 401 10*3/uL 130-400 Automated blood platelet mean volume measurement 10.3 [foz_us] 7.4-10.4 Automated blood neutrophils/100 leukocytes 91 % 42-75 Automated blood lymphocytes/100 leukocytes 3 % 12-44 Blood monocytes/100 leukocytes 6 % 0-12 Automated blood eosinophils/100 leukocytes 0 % 0-10 Automated blood basophils/100 leukocytes 0 % 0-10 Blood neutrophils automated count (number/volume) 11.4 10*3 1.8-7.8 Blood lymphocytes automated count (number/volume) 0.4 10*3 1.0-4.0 Blood monocytes automated count (number/volume) 0. 7 10*3 0.0-1.0 Automated eosinophil count 0.0 10*3/uL 0 .0-0.3 Automated blood basophil count (count/volume) 0.0 10*3/uL 0.0-0.1 PT panel in platelet poor plasma by coag ulation assay - 10/10/19 22:28 Prothrombin time (PT) in platelet poor plasma by coagu lation assay 15.3 s 12.2-14.7 INR in platelet poor plasma or blood by coagulation as say 1.2 0.8-1.4 Activated partial thromboplastin time (a PTT) in platelet poor plasma bycoagulation assay - 10/10/19 22:28 Activated partial thromboplastin time (a PTT) in platelet poor plasma bycoagulation assay 26 s 24-35 Comprehensive metabolic panel - 10/10/19 22:28 Serum or plasma sodium measurement (moles/volume) 140 mmol/L 135-145 Serum or plasma potassium measurement (moles/volume) 3.4 mmol/L 3.6-5.0 Serum or plasma chloride measurement (moles/volume) 102 mmol/L 98-107 Carbon dioxide 22 mmol/L 21-32 Serum or plasma anion gap determination (moles/volume) 16 mmol/L 5-14 Serum or plasma urea nitrogen measurement (mass/volume ) 29 mg/dL 7-18 Serum or plasma creatinine measurement (mass/volume) 1.03 mg/dL 0.60-1.30 Serum or plasma urea nitrogen/creatinine mass ratio 28 NRG Serum or plasma creatinine measurement w ith calculation of estimated glomerular filtration rate 52 NRG Serum or plasma glucose measurement (mass/volume) 208 mg/dL 70-105 Serum or plasma calcium measurement (mass/volume) 9.4 mg/dL 8.5-10.1 Serum or plasma total bilirubin measurement (mass/volu me) 0.7 mg/dL 0.1-1.0 Serum or plasma alkaline phosphatase bj surement (enzymatic activity/volume) 126 U/L 40-136 Serum or plasma aspartate aminotransfera se measurement (enzymatic activity/volume) 40 U/L 5-34 Serum or plasma alanine aminotransferase measurement (enzymatic activity/volume) 64 U/L 0-55 Serum or plasma protein measurement (mass/volume) 6.6 g/dL 6.4-8.2 Serum or plasma albumin measurement (mass/volume) 3.4 g/dL 3.2-4.5 CALCIUM CORRECTED 9.9 mg/dL 8.5-10.1 Magnesium - 10/10/19 22:28 Magnesium 1.7 mg/dL 1.6-2.4 Serum or plasma creatine kinase measurem ent (enzymatic activity/volume) - 10/10/19 22:28 Serum or plasma creatine kinase measurem ent (enzymatic activity/volume) 52 U/L 29-168 Manual absolute plasma cell count - 09/18 02/03 22:28 Blood monocytes/100 leukocytes 3 % NRG Manual blood segmented neutrophils/100 leukocytes 93 % NRG Blood band neutrophils/100 leukocytes 2 % NRG Manual blood lymphocytes/100 leukocytes 2 % NRG Blood erythrocyte morphology finding identification NORMAL NRG Serum or plasma lithium measurement (mol es/volume) - 10/10/19 22:28 BNP PT 429.2 pg/mL <100.0 Serum or plasma creatine kinase MB measu rement (enzymatic activity/volume) - 10/10/19 22:28 Serum or plasma creatine kinase MB measu rement (enzymatic activity/volume) 2.1 ng/mL <6.6 Serum or plasma troponin i.cardiac measu rement (mass/volume) - 10/10/19 22:28 Serum or plasma troponin i.cardiac measurement (mass/v olume) < ng/mL <0.028 Myoglobin, serum - 10/10/19 22:28 Myoglobin, serum 66.6 ng/mL 10.0-92.0 Serum or plasma thyrotropin measurement by detection limit <=0.05 miu/l (units/volume) - 10/10/19 22:28 Serum or plasma thyrotropin measurement by detection limit <=0.05 miu/l (units/volume) 0.75 u[iU]/mL 0.35-4.94 Capillary blood glucose measurement by g lucometer (mass/volume) - 10/10/19 22:35 Capillary blood glucose measurement by glucometer (mas s/volume) 200 mg/dL 70-110 Complete urinalysis with reflex to cultu re - 10/10/19 23:23 Urine color determination YELLOW NRG Urine clarity determination CLEAR NR G Urine pH measurement by test strip 6.5 5-9 Specific gravity of urine by test strip 1.015 1.016-1.022 Urine protein assay by test strip, semi-quantitative TRACE NEGATIVE Urine glucose detection by automated test strip TR HESHAM NEGATIVE Erythrocytes detection in urine sediment by light micr oscopy TRACE-I NEGATIVE Urine ketones detection by automated test strip NE GATIVE NEGATIVE Urine nitrite detection by test strip NEGATIVE NEGATIVE Urine total bilirubin detection by test strip NEGA TIVE NEGATIVE Urine urobilinogen measurement by automated test strip (mass/volume) 0.2 mg/dL < = 1.0 Urine leukocyte esterase detection by dipstick NEG ATIVE NEGATIVE Automated urine sediment erythrocyte cou nt by microscopy (number/high power field) [HPF] NRG Automated urine sediment leukocyte count by microscopy (number/high power field) [HPF] NRG Bacteria detection in urine sediment by light microsco py TRACE NRG Crystals detection in urine sediment by light microsco py NONE NRG Casts detection in urine sediment by light microscopy NONE NRG Mucus detection in urine sediment by light microscopy NEGATIVE NRG Complete urinalysis with reflex to culture NO NRG Methicillin resistant Staphylococcus aur eus (MRSA) screening culture - 10/11/19 03:35 Methicillin resistant Staphylococcus aureus (MRSA) scr eening culture NEG NRG Complete blood count (CBC) with automate d white blood cell (WBC) differential - 10/11/19 04:40 Blood leukocytes automated count (number/volume) 13.7 10*3/uL 4.3-11.0 Blood erythrocytes automated count (number/volume) 5.07 10*6/uL 4.35-5.85 Venous blood hemoglobin measurement (mass/volume) 14.2 g/dL 11.5-16.0 Blood hematocrit (volume fraction) 45 % 35-52 Automated erythrocyte mean corpuscular volume 89 [ foz_us] 80-99 Automated erythrocyte mean corpuscular h emoglobin (mass per erythrocyte) 28 pg 25-34 Automated erythrocyte mean corpuscular h emoglobin concentration measurement (mass/volume) 31 g/dL 32-36 Automated erythrocyte distribution width ratio 15. 9 % 10.0- 14.5 Automated blood platelet count (count/volume) 439 10*3/uL 130-400 Automated blood platelet mean volume measurement 10.3 [foz_us] 7.4-10.4 Automated blood neutrophils/100 leukocytes 91 % 42-75 Automated blood lymphocytes/100 leukocytes 4 % 12-44 Blood monocytes/100 leukocytes 6 % 0-12 Automated blood eosinophils/100 leukocytes 0 % 0-10 Automated blood basophils/100 leukocytes 0 % 0-10 Blood neutrophils automated count (number/volume) 12.5 10*3 1.8-7.8 Blood lymphocytes automated count (number/volume) 0.5 10*3 1.0-4.0 Blood monocytes automated count (number/volume) 0. 8 10*3 0.0-1.0 Automated eosinophil count 0.0 10*3/uL 0 .0-0.3 Automated blood basophil count (count/volume) 0.0 10*3/uL 0.0-0.1 Comprehensive metabolic panel - 10/11/19 04:40 Serum or plasma sodium measurement (moles/volume) 141 mmol/L 135-145 Serum or plasma potassium measurement (moles/volume) 3.1 mmol/L 3.6-5.0 Serum or plasma chloride measurement (moles/volume) 98 mmol/L 98-107 Carbon dioxide 27 mmol/L 21-32 Serum or plasma anion gap determination (moles/volume) 16 mmol/L 5-14 Serum or plasma urea nitrogen measurement (mass/volume ) 28 mg/dL 7-18 Serum or plasma creatinine measurement (mass/volume) 1.13 mg/dL 0.60-1.30 Serum or plasma urea nitrogen/creatinine mass ratio 25 NRG Serum or plasma creatinine measurement w ith calculation of estimated glomerular filtration rate 47 NRG Serum or plasma glucose measurement (mass/volume) 196 mg/dL 70-105 Serum or plasma calcium measurement (mass/volume) 9.7 mg/dL 8.5-10.1 Serum or plasma total bilirubin measurement (mass/volu me) 0.7 mg/dL 0.1-1.0 Serum or plasma alkaline phosphatase bj surement (enzymatic activity/volume) 121 U/L 40-136 Serum or plasma aspartate aminotransfera se measurement (enzymatic activity/volume) 40 U/L 5-34 Serum or plasma alanine aminotransferase measurement (enzymatic activity/volume) 65 U/L 0-55 Serum or plasma protein measurement (mass/volume) 7.2 g/dL 6.4-8.2 Serum or plasma albumin measurement (mass/volume) 3.8 g/dL 3.2-4.5 CALCIUM CORRECTED 9.9 mg/dL 8.5-10.1 PROCALCITONIN (PCT) - 10/11/19 04:40 PROCALCITONIN (PCT) 0.03 ng/mL <0.10 Magnesium - 10/11/19 04:40 Magnesium 1.6 mg/dL 1.6-2.4 Complete blood count (CBC) with automate d white blood cell (WBC) differential - 10/12/19 05:30 Blood leukocytes automated count (number/volume) 12.6 10*3/uL 4.3-11.0 Blood erythrocytes automated count (number/volume) 4.31 10*6/uL 4.35-5.85 Venous blood hemoglobin measurement (mass/volume) 12.4 g/dL 11.5-16.0 Blood hematocrit (volume fraction) 40 % 35-52 Automated erythrocyte mean corpuscular volume 92 [ foz_us] 80-99 Automated erythrocyte mean corpuscular h emoglobin (mass per erythrocyte) 29 pg 25-34 Automated erythrocyte mean corpuscular h emoglobin concentration measurement (mass/volume) 31 g/dL 32-36 Automated erythrocyte distribution width ratio 15. 5 % 10.0- 14.5 Automated blood platelet count (count/volume) 304 10*3/uL 130-400 Automated blood platelet mean volume measurement 10.7 [foz_us] 7.4-10.4 Automated blood neutrophils/100 leukocytes 96 % 42-75 Automated blood lymphocytes/100 leukocytes 3 % 12-44 Blood monocytes/100 leukocytes 2 % 0-12 Automated blood eosinophils/100 leukocytes 0 % 0-10 Automated blood basophils/100 leukocytes 0 % 0-10 Blood neutrophils automated count (number/volume) 12.1 10*3 1.8-7.8 Blood lymphocytes automated count (number/volume) 0.3 10*3 1.0-4.0 Blood monocytes automated count (number/volume) 0. 2 10*3 0.0-1.0 Automated eosinophil count 0.0 10*3/uL 0 .0-0.3 Automated blood basophil count (count/volume) 0.0 10*3/uL 0.0-0.1 Comprehensive metabolic panel - 10/12/19 05:30 Serum or plasma sodium measurement (moles/volume) 140 mmol/L 135-145 Serum or plasma potassium measurement (moles/volume) 3.9 mmol/L 3.6-5.0 Serum or plasma chloride measurement (moles/volume) 102 mmol/L 98-107 Carbon dioxide 22 mmol/L 21-32 Serum or plasma anion gap determination (moles/volume) 16 mmol/L 5-14 Serum or plasma urea nitrogen measurement (mass/volume ) 28 mg/dL 7-18 Serum or plasma creatinine measurement (mass/volume) 1.11 mg/dL 0.60-1.30 Serum or plasma urea nitrogen/creatinine mass ratio 25 NRG Serum or plasma creatinine measurement w ith calculation of estimated glomerular filtration rate 48 NRG Serum or plasma glucose measurement (mass/volume) 210 mg/dL 70-105 Serum or plasma calcium measurement (mass/volume) 8.8 mg/dL 8.5-10.1 Serum or plasma total bilirubin measurement (mass/volu me) 0.6 mg/dL 0.1-1.0 Serum or plasma alkaline phosphatase bj surement (enzymatic activity/volume) 85 U/L 40-136 Serum or plasma aspartate aminotransfera se measurement (enzymatic activity/volume) 32 U/L 5-34 Serum or plasma alanine aminotransferase measurement (enzymatic activity/volume) 60 U/L 0-55 Serum or plasma protein measurement (mass/volume) 5.8 g/dL 6.4-8.2 Serum or plasma albumin measurement (mass/volume) 3.1 g/dL 3.2-4.5 CALCIUM CORRECTED 9.5 mg/dL 8.5-10.1 Capillary blood glucose measurement by g lucometer (mass/volume) - 10/12/19 16:33 Capillary blood glucose measurement by glucometer (mas s/volume) 237 mg/dL 70-110 Capillary blood glucose measurement by g lucometer (mass/volume) - 10/12/19 21:03 Capillary blood glucose measurement by glucometer (mas s/volume) 170 mg/dL 70-110 Whole blood basic metabolic panel - 09/18 05/05 04:50 Serum or plasma sodium measurement (moles/volume) 140 mmol/L 135-145 Serum or plasma potassium measurement (moles/volume) 3.8 mmol/L 3.6-5.0 Serum or plasma chloride measurement (moles/volume) 102 mmol/L 98-107 Carbon dioxide 24 mmol/L 21-32 Serum or plasma anion gap determination (moles/volume) 14 mmol/L 5-14 Serum or plasma urea nitrogen measurement (mass/volume ) 34 mg/dL 7-18 Serum or plasma creatinine measurement (mass/volume) 1.00 mg/dL 0.60-1.30 Serum or plasma urea nitrogen/creatinine mass ratio 34 NRG Serum or plasma creatinine measurement w ith calculation of estimated glomerular filtration rate 54 NRG Serum or plasma glucose measurement (mass/volume) 207 mg/dL 70-105 Serum or plasma calcium measurement (mass/volume) 8.8 mg/dL 8.5-10.1 Capillary blood glucose measurement by g lucometer (mass/volume) - 10/13/19 11:17 Capillary blood glucose measurement by glucometer (mas s/volume) 152 mg/dL 70-110 Capillary blood glucose measurement by g lucometer (mass/volume) - 10/13/19 15:49 Capillary blood glucose measurement by glucometer (mas s/volume) 178 mg/dL 70-110 Capillary blood glucose measurement by g lucometer (mass/volume) - 10/13/19 21:35 Capillary blood glucose measurement by glucometer (mas s/volume) 199 mg/dL 70-110 Comprehensive metabolic panel - 10/14/19 05:32 Serum or plasma sodium measurement (moles/volume) 140 mmol/L 135-145 Serum or plasma potassium measurement (moles/volume) 3.7 mmol/L 3.6-5.0 Serum or plasma chloride measurement (moles/volume) 102 mmol/L 98-107 Carbon dioxide 26 mmol/L 21-32 Serum or plasma anion gap determination (moles/volume) 12 mmol/L 5-14 Serum or plasma urea nitrogen measurement (mass/volume ) 26 mg/dL 7-18 Serum or plasma creatinine measurement (mass/volume) 0.81 mg/dL 0.60-1.30 Serum or plasma urea nitrogen/creatinine mass ratio 32 NRG Serum or plasma creatinine measurement w ith calculation of estimated glomerular filtration rate > NRG Serum or plasma glucose measurement (mass/volume) 112 mg/dL 70-105 Serum or plasma calcium measurement (mass/volume) 8.8 mg/dL 8.5-10.1 Serum or plasma total bilirubin measurement (mass/volu me) 0.9 mg/dL 0.1-1.0 Serum or plasma alkaline phosphatase bj surement (enzymatic activity/volume) 89 U/L 40-136 Serum or plasma aspartate aminotransfera se measurement (enzymatic activity/volume) 35 U/L 5-34 Serum or plasma alanine aminotransferase measurement (enzymatic activity/volume) 56 U/L 0-55 Serum or plasma protein measurement (mass/volume) 5.7 g/dL 6.4-8.2 Serum or plasma albumin measurement (mass/volume) 3.1 g/dL 3.2-4.5 CALCIUM CORRECTED 9.5 mg/dL 8.5-10.1 Complete blood count (CBC) with automate d white blood cell (WBC) differential - 10/14/19 05:32 Blood leukocytes automated count (number/volume) 18.8 10*3/uL 4.3-11.0 Blood erythrocytes automated count (number/volume) 4.37 10*6/uL 4.35-5.85 Venous blood hemoglobin measurement (mass/volume) 12.7 g/dL 11.5-16.0 Blood hematocrit (volume fraction) 40 % 35-52 Automated erythrocyte mean corpuscular volume 91 [ foz_us] 80-99 Automated erythrocyte mean corpuscular h emoglobin (mass per erythrocyte) 29 pg 25-34 Automated erythrocyte mean corpuscular h emoglobin concentration measurement (mass/volume) 32 g/dL 32-36 Automated erythrocyte distribution width ratio 15. 2 % 10.0- 14.5 Automated blood platelet count (count/volume) 322 10*3/uL 130-400 Automated blood platelet mean volume measurement 10.5 [foz_us] 7.4-10.4 Automated blood neutrophils/100 leukocytes 88 % 42-75 Automated blood lymphocytes/100 leukocytes 6 % 12-44 Blood monocytes/100 leukocytes 7 % 0-12 Automated blood eosinophils/100 leukocytes 0 % 0-10 Automated blood basophils/100 leukocytes 0 % 0-10 Blood neutrophils automated count (number/volume) 16.5 10*3 1.8-7.8 Blood lymphocytes automated count (number/volume) 1.1 10*3 1.0-4.0 Blood monocytes automated count (number/volume) 1. 2 10*3 0.0-1.0 Automated eosinophil count 0.1 10*3/uL 0 .0-0.3 Automated blood basophil count (count/volume) 0.0 10*3/uL 0.0-0.1 Hemoglobin A1c measurement - 10/14/19 05 :32 Blood hemoglobin A1C measurement (mass/volume) 6.1 % 4.0-5.6 MEAN BLOOD GLUCOSE 128 % <=126 Capillary blood glucose measurement by g lucometer (mass/volume) - 10/14/19 06:34 Capillary blood glucose measurement by glucometer (mas s/volume) 110 mg/dL 70-110 Capillary blood glucose measurement by g lucometer (mass/volume) - 10/14/19 15:25 Capillary blood glucose measurement by glucometer (mas s/volume) 211 mg/dL 70-110 Capillary blood glucose measurement by g lucometer (mass/volume) - 10/14/19 19:57 Capillary blood glucose measurement by glucometer (mas s/volume) 113 mg/dL 70-110 Complete blood count (CBC) with automate d white blood cell (WBC) differential - 10/15/19 05:55 Blood leukocytes automated count (number/volume) 21.1 10*3/uL 4.3-11.0 Blood erythrocytes automated count (number/volume) 4.68 10*6/uL 4.35-5.85 Venous blood hemoglobin measurement (mass/volume) 13.2 g/dL 11.5-16.0 Blood hematocrit (volume fraction) 42 % 35-52 Automated erythrocyte mean corpuscular volume 90 [ foz_us] 80-99 Automated erythrocyte mean corpuscular h emoglobin (mass per erythrocyte) 28 pg 25-34 Automated erythrocyte mean corpuscular h emoglobin concentration measurement (mass/volume) 31 g/dL 32-36 Automated erythrocyte distribution width ratio 15. 7 % 10.0- 14.5 Automated blood platelet count (count/volume) 348 10*3/uL 130-400 Automated blood platelet mean volume measurement 10.5 [foz_us] 7.4-10.4 Automated blood neutrophils/100 leukocytes 85 % 42-75 Automated blood lymphocytes/100 leukocytes 8 % 12-44 Blood monocytes/100 leukocytes 7 % 0-12 Automated blood eosinophils/100 leukocytes 0 % 0-10 Automated blood basophils/100 leukocytes 0 % 0-10 Blood neutrophils automated count (number/volume) 17.9 10*3 1.8-7.8 Blood lymphocytes automated count (number/volume) 1.7 10*3 1.0-4.0 Blood monocytes automated count (number/volume) 1. 4 10*3 0.0-1.0 Automated eosinophil count 0.1 10*3/uL 0 .0-0.3 Automated blood basophil count (count/volume) 0.0 10*3/uL 0.0-0.1 Comprehensive metabolic panel - 10/15/19 05:55 Serum or plasma sodium measurement (moles/volume) 140 mmol/L 135-145 Serum or plasma potassium measurement (moles/volume) 3.9 mmol/L 3.6-5.0 Serum or plasma chloride measurement (moles/volume) 102 mmol/L 98-107 Carbon dioxide 25 mmol/L 21-32 Serum or plasma anion gap determination (moles/volume) 13 mmol/L 5-14 Serum or plasma urea nitrogen measurement (mass/volume ) 33 mg/dL 7-18 Serum or plasma creatinine measurement (mass/volume) 0.96 mg/dL 0.60-1.30 Serum or plasma urea nitrogen/creatinine mass ratio 34 NRG Serum or plasma creatinine measurement w ith calculation of estimated glomerular filtration rate 57 NRG Serum or plasma glucose measurement (mass/volume) 106 mg/dL 70-105 Serum or plasma calcium measurement (mass/volume) 9.0 mg/dL 8.5-10.1 Serum or plasma total bilirubin measurement (mass/volu me) 1.4 mg/dL 0.1-1.0 Serum or plasma alkaline phosphatase bj surement (enzymatic activity/volume) 102 U/L 40-136 Serum or plasma aspartate aminotransfera se measurement (enzymatic activity/volume) 47 U/L 5-34 Serum or plasma alanine aminotransferase measurement (enzymatic activity/volume) 86 U/L 0-55 Serum or plasma protein measurement (mass/volume) 5.8 g/dL 6.4-8.2 Serum or plasma albumin measurement (mass/volume) 3.4 g/dL 3.2-4.5 CALCIUM CORRECTED 9.5 mg/dL 8.5-10.1 Capillary blood glucose measurement by g lucometer (mass/volume) - 10/15/19 06:34 Capillary blood glucose measurement by glucometer (mas s/volume) 99 mg/dL 70-110 Capillary blood glucose measurement by g lucometer (mass/volume) - 10/15/19 10:52 Capillary blood glucose measurement by glucometer (mas s/volume) 127 mg/dL 70-110 Arterial blood gas measurement - 9 12:12 Blood pCO2 44 mm[Hg] 35-45 Blood pO2 84 mm[Hg] 79-93 Arterial blood bicarbonate measurement (moles/volume) 29 mmol/L 23-27 Arterial blood base excess by calculation 5.2 mmol /L -2.5-2.5 Arterial blood oxygen saturation measurement 97 % 94-100 * Inhaled oxygen flow rate 4 L NRG Arterial blood pH measurement with patient temperature correction 7.44 7.37-7.43 Arterial blood carbon dioxide, total measurement (mole s/volume) 30.7 mmol/L 21.0-31.0 Body site RT RAD NRG Assessment of wrist artery patency prior to arterial p uncture YES-POS NRG Setting of ventilation mode NO NR G Measurement of body temperature 36.6 NRG Blood lactic acid measurement (moles/vol ume) - 10/15/19 12:30 Blood lactic acid measurement (moles/volume) 1.20 mmol/L 0.50-2.00 Serum or plasma lithium measurement (mol es/volume) - 10/15/19 12:30 BNP PT 468.7 pg/mL <100.0 PROCALCITONIN (PCT) - 10/15/19 12:30 PROCALCITONIN (PCT) 0.04 ng/mL <0.10 Capillary blood glucose measurement by g lucometer (mass/volume) - 10/15/19 15:35 Capillary blood glucose measurement by glucometer (mas s/volume) 168 mg/dL 70-110 Capillary blood glucose measurement by g lucometer (mass/volume) - 10/15/19 20:59 Capillary blood glucose measurement by glucometer (mas s/volume) 158 mg/dL 70-110 Capillary blood glucose measurement by g lucometer (mass/volume) - 10/16/19 06:37 Capillary blood glucose measurement by glucometer (mas s/volume) 122 mg/dL 70-110 Complete blood count (CBC) with automate d white blood cell (WBC) differential - 10/16/19 07:01 Blood leukocytes automated count (number/volume) 16.4 10*3/uL 4.3-11.0 Blood erythrocytes automated count (number/volume) 4.75 10*6/uL 4.35-5.85 Venous blood hemoglobin measurement (mass/volume) 13.6 g/dL 11.5-16.0 Blood hematocrit (volume fraction) 43 % 35-52 Automated erythrocyte mean corpuscular volume 91 [ foz_us] 80-99 Automated erythrocyte mean corpuscular h emoglobin (mass per erythrocyte) 29 pg 25-34 Automated erythrocyte mean corpuscular h emoglobin concentration measurement (mass/volume) 32 g/dL 32-36 Automated erythrocyte distribution width ratio 15. 3 % 10.0- 14.5 Automated blood platelet count (count/volume) 307 10*3/uL 130-400 Automated blood platelet mean volume measurement 10.8 [foz_us] 7.4-10.4 Automated blood neutrophils/100 leukocytes 86 % 42-75 Automated blood lymphocytes/100 leukocytes 8 % 12-44 Blood monocytes/100 leukocytes 6 % 0-12 Automated blood eosinophils/100 leukocytes 0 % 0-10 Automated blood basophils/100 leukocytes 0 % 0-10 Blood neutrophils automated count (number/volume) 14.0 10*3 1.8-7.8 Blood lymphocytes automated count (number/volume) 1.3 10*3 1.0-4.0 Blood monocytes automated count (number/volume) 1. 0 10*3 0.0-1.0 Automated eosinophil count 0.1 10*3/uL 0 .0-0.3 Automated blood basophil count (count/volume) 0.0 10*3/uL 0.0-0.1 Comprehensive metabolic panel - 10/16/19 07:01 Serum or plasma sodium measurement (moles/volume) 141 mmol/L 135-145 Serum or plasma potassium measurement (moles/volume) 3.7 mmol/L 3.6-5.0 Serum or plasma chloride measurement (moles/volume) 99 mmol/L 98-107 Carbon dioxide 29 mmol/L 21-32 Serum or plasma anion gap determination (moles/volume) 13 mmol/L 5-14 Serum or plasma urea nitrogen measurement (mass/volume ) 29 mg/dL 7-18 Serum or plasma creatinine measurement (mass/volume) 0.87 mg/dL 0.60-1.30 Serum or plasma urea nitrogen/creatinine mass ratio 33 NRG Serum or plasma creatinine measurement w ith calculation of estimated glomerular filtration rate > NRG Serum or plasma glucose measurement (mass/volume) 112 mg/dL 70-105 Serum or plasma calcium measurement (mass/volume) 9.5 mg/dL 8.5-10.1 Serum or plasma total bilirubin measurement (mass/volu me) 1.8 mg/dL 0.1-1.0 Serum or plasma alkaline phosphatase bj surement (enzymatic activity/volume) 112 U/L 40-136 Serum or plasma aspartate aminotransfera se measurement (enzymatic activity/volume) 33 U/L 5-34 Serum or plasma alanine aminotransferase measurement (enzymatic activity/volume) 77 U/L 0-55 Serum or plasma protein measurement (mass/volume) 6.2 g/dL 6.4-8.2 Serum or plasma albumin measurement (mass/volume) 3.6 g/dL 3.2-4.5 CALCIUM CORRECTED 9.8 mg/dL 8.5-10.1 Manual absolute plasma cell count - 09/19 07:01 Blood monocytes/100 leukocytes 3 % NRG Manual blood segmented neutrophils/100 leukocytes 91 % NRG Blood band neutrophils/100 leukocytes 1 % NRG Manual blood lymphocytes/100 leukocytes 4 % NRG Manual eosinophils/100 leukocytes in nose 1 % NRG Manual blood basophils/100 leukocytes 0 % NRG Blood anisocytosis detection by light microscopy S LIGHT NRG Serum or plasma lithium measurement (mol es/volume) - 10/16/19 07:01 BNP PT 485.3 pg/mL <100.0 Capillary blood glucose measurement by g lucometer (mass/volume) - 10/16/19 11:01 Capillary blood glucose measurement by glucometer (mas s/volume) 234 mg/dL 70-110 Capillary blood glucose measurement by g lucometer (mass/volume) - 10/16/19 14:00 Capillary blood glucose measurement by glucometer (mas s/volume) 162 mg/dL 70-110 Capillary blood glucose measurement by g lucometer (mass/volume) - 10/16/19 15:28 Capillary blood glucose measurement by glucometer (mas s/volume) 118 mg/dL 70-110 Capillary blood glucose measurement by g lucometer (mass/volume) - 10/16/19 20:08 Capillary blood glucose measurement by glucometer (mas s/volume) 178 mg/dL 70-110 Capillary blood glucose measurement by g lucometer (mass/volume) - 10/17/19 06:08 Capillary blood glucose measurement by glucometer (mas s/volume) 93 mg/dL 70-110 Capillary blood glucose measurement by g lucometer (mass/volume) - 10/17/19 10:51 Capillary blood glucose measurement by glucometer (mas s/volume) 151 mg/dL 70-110 Capillary blood glucose measurement by g lucometer (mass/volume) - 10/17/19 16:18 Capillary blood glucose measurement by glucometer (mas s/volume) 129 mg/dL 70-110 Capillary blood glucose measurement by g lucometer (mass/volume) - 10/17/19 21:29 Capillary blood glucose measurement by glucometer (mas s/volume) 122 mg/dL 70-110 Capillary blood glucose measurement by g lucometer (mass/volume) - 10/18/19 05:41 Capillary blood glucose measurement by glucometer (mas s/volume) 90 mg/dL 70-110 Capillary blood glucose measurement by g lucometer (mass/volume) - 10/18/19 10:33 Capillary blood glucose measurement by glucometer (mas s/volume) 168 mg/dL 70-110 Capillary blood glucose measurement by g lucometer (mass/volume) - 10/19/19 05:58 Capillary blood glucose measurement by glucometer (mas s/volume) 107 mg/dL 70-110 Complete blood count (CBC) with automate d white blood cell (WBC) differential - 10/19/19 06:07 Blood leukocytes automated count (number/volume) 17.8 10*3/uL 4.3-11.0 Blood erythrocytes automated count (number/volume) 4.39 10*6/uL 4.35-5.85 Venous blood hemoglobin measurement (mass/volume) 12.4 g/dL 11.5-16.0 Blood hematocrit (volume fraction) 41 % 35-52 Automated erythrocyte mean corpuscular volume 94 [ foz_us] 80-99 Automated erythrocyte mean corpuscular h emoglobin (mass per erythrocyte) 28 pg 25-34 Automated erythrocyte mean corpuscular h emoglobin concentration measurement (mass/volume) 30 g/dL 32-36 Automated erythrocyte distribution width ratio 15. 6 % 10.0- 14.5 Automated blood platelet count (count/volume) 263 10*3/uL 130-400 Automated blood platelet mean volume measurement 10.5 [foz_us] 7.4-10.4 Automated blood neutrophils/100 leukocytes 85 % 42-75 Automated blood lymphocytes/100 leukocytes 7 % 12-44 Blood monocytes/100 leukocytes 7 % 0-12 Automated blood eosinophils/100 leukocytes 1 % 0-10 Automated blood basophils/100 leukocytes 0 % 0-10 Blood neutrophils automated count (number/volume) 15.2 10*3 1.8-7.8 Blood lymphocytes automated count (number/volume) 1.3 10*3 1.0-4.0 Blood monocytes automated count (number/volume) 1. 2 10*3 0.0-1.0 Automated eosinophil count 0.2 10*3/uL 0 .0-0.3 Automated blood basophil count (count/volume) 0.0 10*3/uL 0.0-0.1 Comprehensive metabolic panel - 10/19/19 06:07 Serum or plasma sodium measurement (moles/volume) 141 mmol/L 135-145 Serum or plasma potassium measurement (moles/volume) 3.7 mmol/L 3.6-5.0 Serum or plasma chloride measurement (moles/volume) 101 mmol/L 98-107 Carbon dioxide 28 mmol/L 21-32 Serum or plasma anion gap determination (moles/volume) 12 mmol/L 5-14 Serum or plasma urea nitrogen measurement (mass/volume ) 25 mg/dL 7-18 Serum or plasma creatinine measurement (mass/volume) 0.79 mg/dL 0.60-1.30 Serum or plasma urea nitrogen/creatinine mass ratio 32 NRG Serum or plasma creatinine measurement w ith calculation of estimated glomerular filtration rate > NRG Serum or plasma glucose measurement (mass/volume) 110 mg/dL 70-105 Serum or plasma calcium measurement (mass/volume) 8.7 mg/dL 8.5-10.1 Serum or plasma total bilirubin measurement (mass/volu me) 1.1 mg/dL 0.1-1.0 Serum or plasma alkaline phosphatase bj surement (enzymatic activity/volume) 105 U/L 40-136 Serum or plasma aspartate aminotransfera se measurement (enzymatic activity/volume) 25 U/L 5-34 Serum or plasma alanine aminotransferase measurement (enzymatic activity/volume) 48 U/L 0-55 Serum or plasma protein measurement (mass/volume) 5.6 g/dL 6.4-8.2 Serum or plasma albumin measurement (mass/volume) 3.4 g/dL 3.2-4.5 CALCIUM CORRECTED 9.2 mg/dL 8.5-10.1 Capillary blood glucose measurement by g lucometer (mass/volume) - 10/19/19 10:59 Capillary blood glucose measurement by glucometer (mas s/volume) 161 mg/dL 70-110 Capillary blood glucose measurement by g lucometer (mass/volume) - 10/19/19 15:19 Capillary blood glucose measurement by glucometer (mas s/volume) 153 mg/dL 70-110 Capillary blood glucose measurement by g lucometer (mass/volume) - 10/19/19 20:33 Capillary blood glucose measurement by glucometer (mas s/volume) 122 mg/dL 70-110 Capillary blood glucose measurement by g lucometer (mass/volume) - 10/20/19 05:37 Capillary blood glucose measurement by glucometer (mas s/volume) 86 mg/dL 70-110 Capillary blood glucose measurement by g lucometer (mass/volume) - 10/20/19 11:09 Capillary blood glucose measurement by glucometer (mas s/volume) 122 mg/dL 70-110 Capillary blood glucose measurement by g lucometer (mass/volume) - 10/20/19 15:43 Capillary blood glucose measurement by glucometer (mas s/volume) 160 mg/dL 70-110 Capillary blood glucose measurement by g lucometer (mass/volume) - 10/20/19 20:36 Capillary blood glucose measurement by glucometer (mas s/volume) 156 mg/dL 70-110 Capillary blood glucose measurement by g lucometer (mass/volume) - 10/21/19 05:28 Capillary blood glucose measurement by glucometer (mas s/volume) 98 mg/dL 70-110 Capillary blood glucose measurement by g lucometer (mass/volume) - 10/21/19 10:48 Capillary blood glucose measurement by glucometer (mas s/volume) 140 mg/dL 70-110 Capillary blood glucose measurement by g lucometer (mass/volume) - 10/21/19 15:14 Capillary blood glucose measurement by glucometer (mas s/volume) 152 mg/dL 70-110 Capillary blood glucose measurement by g lucometer (mass/volume) - 10/21/19 20:18 Capillary blood glucose measurement by glucometer (mas s/volume) 114 mg/dL 70-110 Complete blood count (CBC) with automate d white blood cell (WBC) differential - 10/22/19 05:05 Blood leukocytes automated count (number/volume) 14.5 10*3/uL 4.3-11.0 Blood erythrocytes automated count (number/volume) 4.25 10*6/uL 4.35-5.85 Venous blood hemoglobin measurement (mass/volume) 12.3 g/dL 11.5-16.0 Blood hematocrit (volume fraction) 40 % 35-52 Automated erythrocyte mean corpuscular volume 94 [ foz_us] 80-99 Automated erythrocyte mean corpuscular h emoglobin (mass per erythrocyte) 29 pg 25-34 Automated erythrocyte mean corpuscular h emoglobin concentration measurement (mass/volume) 31 g/dL 32-36 Automated erythrocyte distribution width ratio 15. 5 % 10.0- 14.5 Automated blood platelet count (count/volume) 232 10*3/uL 130-400 Automated blood platelet mean volume measurement 10.5 [foz_us] 7.4-10.4 Automated blood neutrophils/100 leukocytes 84 % 42-75 Automated blood lymphocytes/100 leukocytes 8 % 12-44 Blood monocytes/100 leukocytes 5 % 0-12 Automated blood eosinophils/100 leukocytes 2 % 0-10 Automated blood basophils/100 leukocytes 0 % 0-10 Blood neutrophils automated count (number/volume) 12.2 10*3 1.8-7.8 Blood lymphocytes automated count (number/volume) 1.2 10*3 1.0-4.0 Blood monocytes automated count (number/volume) 0. 8 10*3 0.0-1.0 Automated eosinophil count 0.3 10*3/uL 0 .0-0.3 Automated blood basophil count (count/volume) 0.0 10*3/uL 0.0-0.1 Whole blood basic metabolic panel - 03/06 05:05 Serum or plasma sodium measurement (moles/volume) 142 mmol/L 135-145 Serum or plasma potassium measurement (moles/volume) 4.0 mmol/L 3.6-5.0 Serum or plasma chloride measurement (moles/volume) 101 mmol/L 98-107 Carbon dioxide 29 mmol/L 21-32 Serum or plasma anion gap determination (moles/volume) 12 mmol/L 5-14 Serum or plasma urea nitrogen measurement (mass/volume ) 21 mg/dL 7-18 Serum or plasma creatinine measurement (mass/volume) 0.82 mg/dL 0.60-1.30 Serum or plasma urea nitrogen/creatinine mass ratio 26 NRG Serum or plasma creatinine measurement w ith calculation of estimated glomerular filtration rate > NRG Serum or plasma glucose measurement (mass/volume) 107 mg/dL 70-105 Serum or plasma calcium measurement (mass/volume) 9.2 mg/dL 8.5-10.1 Serum or plasma phosphate measurement (m ass/volume) - 10/22/19 05:05 Serum or plasma phosphate measurement (mass/volume) 3.9 mg/dL 2.3-4.7 Magnesium - 10/22/19 05:05 Magnesium 1.6 mg/dL 1.6-2.4 Manual absolute plasma cell count - 03/06 05:05 Blood monocytes/100 leukocytes 3 % NRG Manual blood segmented neutrophils/100 leukocytes 88 % NRG Manual blood lymphocytes/100 leukocytes 7 % NRG Manual eosinophils/100 leukocytes in nose 2 % NRG Capillary blood glucose measurement by g lucometer (mass/volume) - 10/22/19 10:53 Capillary blood glucose measurement by glucometer (mas s/volume) 95 mg/dL 70-110 Capillary blood glucose measurement by g lucometer (mass/volume) - 10/22/19 15:55 Capillary blood glucose measurement by glucometer (mas s/volume) 138 mg/dL 70-110 Capillary blood glucose measurement by g lucometer (mass/volume) - 10/22/19 20:23 Capillary blood glucose measurement by glucometer (mas s/volume) 105 mg/dL 70-110 Complete blood count (CBC) with automate d white blood cell (WBC) differential - 10/23/19 04:55 Blood leukocytes automated count (number/volume) 9.9 10*3/uL 4.3-11.0 Blood erythrocytes automated count (number/volume) 4.03 10*6/uL 4.35-5.85 Venous blood hemoglobin measurement (mass/volume) 11.5 g/dL 11.5-16.0 Blood hematocrit (volume fraction) 38 % 35-52 Automated erythrocyte mean corpuscular volume 94 [ foz_us] 80-99 Automated erythrocyte mean corpuscular h emoglobin (mass per erythrocyte) 29 pg 25-34 Automated erythrocyte mean corpuscular h emoglobin concentration measurement (mass/volume) 30 g/dL 32-36 Automated erythrocyte distribution width ratio 15. 9 % 10.0- 14.5 Automated blood platelet count (count/volume) 208 10*3/uL 130-400 Automated blood platelet mean volume measurement 11.2 [foz_us] 7.4-10.4 Automated blood neutrophils/100 leukocytes 82 % 42-75 Automated blood lymphocytes/100 leukocytes 10 % 12-44 Blood monocytes/100 leukocytes 7 % 0-12 Automated blood eosinophils/100 leukocytes 2 % 0-10 Automated blood basophils/100 leukocytes 0 % 0-10 Blood neutrophils automated count (number/volume) 8.1 10*3 1.8-7.8 Blood lymphocytes automated count (number/volume) 0.9 10*3 1.0-4.0 Blood monocytes automated count (number/volume) 0. 7 10*3 0.0-1.0 Automated eosinophil count 0.2 10*3/uL 0 .0-0.3 Automated blood basophil count (count/volume) 0.0 10*3/uL 0.0-0.1 Whole blood basic metabolic panel - 04/06 04:55 Serum or plasma sodium measurement (moles/volume) 141 mmol/L 135-145 Serum or plasma potassium measurement (moles/volume) 3.6 mmol/L 3.6-5.0 Serum or plasma chloride measurement (moles/volume) 101 mmol/L 98-107 Carbon dioxide 27 mmol/L 21-32 Serum or plasma anion gap determination (moles/volume) 13 mmol/L 5-14 Serum or plasma urea nitrogen measurement (mass/volume ) 16 mg/dL 7-18 Serum or plasma creatinine measurement (mass/volume) 0.76 mg/dL 0.60-1.30 Serum or plasma urea nitrogen/creatinine mass ratio 21 NRG Serum or plasma creatinine measurement w ith calculation of estimated glomerular filtration rate > NRG Serum or plasma glucose measurement (mass/volume) 98 mg/dL 70-105 Serum or plasma calcium measurement (mass/volume) 8.9 mg/dL 8.5-10.1 Serum or plasma phosphate measurement (m ass/volume) - 10/23/19 04:55 Serum or plasma phosphate measurement (mass/volume) 3.4 mg/dL 2.3-4.7 Magnesium - 10/23/19 04:55 Magnesium 1.6 mg/dL 1.6-2.4 Capillary blood glucose measurement by g lucometer (mass/volume) - 10/23/19 10:53 Capillary blood glucose measurement by glucometer (mas s/volume) 146 mg/dL 70-110 Capillary blood glucose measurement by g lucometer (mass/volume) - 10/23/19 15:20 Capillary blood glucose measurement by glucometer (mas s/volume) 99 mg/dL 70-110 Capillary blood glucose measurement by g lucometer (mass/volume) - 10/23/19 20:19 Capillary blood glucose measurement by glucometer (mas s/volume) 122 mg/dL 70-110 Capillary blood glucose measurement by g lucometer (mass/volume) - 10/24/19 05:09 Capillary blood glucose measurement by glucometer (mas s/volume) 106 mg/dL 70-110 Complete blood count (CBC) with automate d white blood cell (WBC) differential - 10/24/19 05:33 Blood leukocytes automated count (number/volume) 9.0 10*3/uL 4.3-11.0 Blood erythrocytes automated count (number/volume) 4.18 10*6/uL 4.35-5.85 Venous blood hemoglobin measurement (mass/volume) 12.2 g/dL 11.5-16.0 Blood hematocrit (volume fraction) 40 % 35-52 Automated erythrocyte mean corpuscular volume 95 [ foz_us] 80-99 Automated erythrocyte mean corpuscular h emoglobin (mass per erythrocyte) 29 pg 25-34 Automated erythrocyte mean corpuscular h emoglobin concentration measurement (mass/volume) 31 g/dL 32-36 Automated erythrocyte distribution width ratio 15. 6 % 10.0- 14.5 Automated blood platelet count (count/volume) 193 10*3/uL 130-400 Automated blood platelet mean volume measurement 11.2 [foz_us] 7.4-10.4 Automated blood neutrophils/100 leukocytes 81 % 42-75 Automated blood lymphocytes/100 leukocytes 10 % 12-44 Blood monocytes/100 leukocytes 7 % 0-12 Automated blood eosinophils/100 leukocytes 2 % 0-10 Automated blood basophils/100 leukocytes 0 % 0-10 Blood neutrophils automated count (number/volume) 7.3 10*3 1.8-7.8 Blood lymphocytes automated count (number/volume) 0.9 10*3 1.0-4.0 Blood monocytes automated count (number/volume) 0. 6 10*3 0.0-1.0 Automated eosinophil count 0.2 10*3/uL 0 .0-0.3 Automated blood basophil count (count/volume) 0.0 10*3/uL 0.0-0.1 Whole blood basic metabolic panel - 05/06 05:33 Serum or plasma sodium measurement (moles/volume) 141 mmol/L 135-145 Serum or plasma potassium measurement (moles/volume) 3.8 mmol/L 3.6-5.0 Serum or plasma chloride measurement (moles/volume) 101 mmol/L 98-107 Carbon dioxide 28 mmol/L 21-32 Serum or plasma anion gap determination (moles/volume) 12 mmol/L 5-14 Serum or plasma urea nitrogen measurement (mass/volume ) 18 mg/dL 7-18 Serum or plasma creatinine measurement (mass/volume) 0.76 mg/dL 0.60-1.30 Serum or plasma urea nitrogen/creatinine mass ratio 24 NRG Serum or plasma creatinine measurement w ith calculation of estimated glomerular filtration rate > NRG Serum or plasma glucose measurement (mass/volume) 97 mg/dL 70-105 Serum or plasma calcium measurement (mass/volume) 9.4 mg/dL 8.5-10.1 Serum or plasma phosphate measurement (m ass/volume) - 10/24/19 05:33 Serum or plasma phosphate measurement (mass/volume) 3.8 mg/dL 2.3-4.7 Magnesium - 10/24/19 05:33 Magnesium 1.8 mg/dL 1.6-2.4 Complete blood count (CBC) with automate d white blood cell (WBC) differential - 10/25/19 04:47 Blood leukocytes automated count (number/volume) 8.5 10*3/uL 4.3-11.0 Blood erythrocytes automated count (number/volume) 4.13 10*6/uL 4.35-5.85 Venous blood hemoglobin measurement (mass/volume) 12.0 g/dL 11.5-16.0 Blood hematocrit (volume fraction) 39 % 35-52 Automated erythrocyte mean corpuscular volume 94 [ foz_us] 80-99 Automated erythrocyte mean corpuscular h emoglobin (mass per erythrocyte) 29 pg 25-34 Automated erythrocyte mean corpuscular h emoglobin concentration measurement (mass/volume) 31 g/dL 32-36 Automated erythrocyte distribution width ratio 15. 4 % 10.0- 14.5 Automated blood platelet count (count/volume) 189 10*3/uL 130-400 Automated blood platelet mean volume measurement 10.7 [foz_us] 7.4-10.4 Automated blood neutrophils/100 leukocytes 82 % 42-75 Automated blood lymphocytes/100 leukocytes 10 % 12-44 Blood monocytes/100 leukocytes 5 % 0-12 Automated blood eosinophils/100 leukocytes 3 % 0-10 Automated blood basophils/100 leukocytes 0 % 0-10 Blood neutrophils automated count (number/volume) 6.9 10*3 1.8-7.8 Blood lymphocytes automated count (number/volume) 0.8 10*3 1.0-4.0 Blood monocytes automated count (number/volume) 0. 5 10*3 0.0-1.0 Automated eosinophil count 0.3 10*3/uL 0 .0-0.3 Automated blood basophil count (count/volume) 0.0 10*3/uL 0.0-0.1 Whole blood basic metabolic panel - 06/06 04:47 Serum or plasma sodium measurement (moles/volume) 142 mmol/L 135-145 Serum or plasma potassium measurement (moles/volume) 3.9 mmol/L 3.6-5.0 Serum or plasma chloride measurement (moles/volume) 99 mmol/L 98-107 Carbon dioxide 30 mmol/L 21-32 Serum or plasma anion gap determination (moles/volume) 13 mmol/L 5-14 Serum or plasma urea nitrogen measurement (mass/volume ) 20 mg/dL 7-18 Serum or plasma creatinine measurement (mass/volume) 0.99 mg/dL 0.60-1.30 Serum or plasma urea nitrogen/creatinine mass ratio 20 NRG Serum or plasma creatinine measurement w ith calculation of estimated glomerular filtration rate 55 NRG Serum or plasma glucose measurement (mass/volume) 105 mg/dL 70-105 Serum or plasma calcium measurement (mass/volume) 9.4 mg/dL 8.5-10.1 Serum or plasma phosphate measurement (m ass/volume) - 10/25/19 04:47 Serum or plasma phosphate measurement (mass/volume) 4.6 mg/dL 2.3-4.7 Magnesium - 10/25/19 04:47 Magnesium 1.7 mg/dL 1.6-2.4 Complete blood count (CBC) with automate d white blood cell (WBC) differential - 10/26/19 05:36 Blood leukocytes automated count (number/volume) 8.4 10*3/uL 4.3-11.0 Blood erythrocytes automated count (number/volume) 4.25 10*6/uL 4.35-5.85 Venous blood hemoglobin measurement (mass/volume) 12.2 g/dL 11.5-16.0 Blood hematocrit (volume fraction) 39 % 35-52 Automated erythrocyte mean corpuscular volume 92 [ foz_us] 80-99 Automated erythrocyte mean corpuscular h emoglobin (mass per erythrocyte) 29 pg 25-34 Automated erythrocyte mean corpuscular h emoglobin concentration measurement (mass/volume) 31 g/dL 32-36 Automated erythrocyte distribution width ratio 15. 1 % 10.0- 14.5 Automated blood platelet count (count/volume) 175 10*3/uL 130-400 Automated blood platelet mean volume measurement 10.6 [foz_us] 7.4-10.4 Automated blood neutrophils/100 leukocytes 87 % 42-75 Automated blood lymphocytes/100 leukocytes 6 % 12-44 Blood monocytes/100 leukocytes 5 % 0-12 Automated blood eosinophils/100 leukocytes 1 % 0-10 Automated blood basophils/100 leukocytes 0 % 0-10 Blood neutrophils automated count (number/volume) 7.3 10*3 1.8-7.8 Blood lymphocytes automated count (number/volume) 0.5 10*3 1.0-4.0 Blood monocytes automated count (number/volume) 0. 4 10*3 0.0-1.0 Automated eosinophil count 0.1 10*3/uL 0 .0-0.3 Automated blood basophil count (count/volume) 0.0 10*3/uL 0.0-0.1 Whole blood basic metabolic panel - 07/07 05:36 Serum or plasma sodium measurement (moles/volume) 138 mmol/L 135-145 Serum or plasma potassium measurement (moles/volume) 4.4 mmol/L 3.6-5.0 Serum or plasma chloride measurement (moles/volume) 98 mmol/L 98-107 Carbon dioxide 25 mmol/L 21-32 Serum or plasma anion gap determination (moles/volume) 15 mmol/L 5-14 Serum or plasma urea nitrogen measurement (mass/volume ) 21 mg/dL 7-18 Serum or plasma creatinine measurement (mass/volume) 1.00 mg/dL 0.60-1.30 Serum or plasma urea nitrogen/creatinine mass ratio 21 NRG Serum or plasma creatinine measurement w ith calculation of estimated glomerular filtration rate 54 NRG Serum or plasma glucose measurement (mass/volume) 147 mg/dL 70-105 Serum or plasma calcium measurement (mass/volume) 9.8 mg/dL 8.5-10.1 Serum or plasma phosphate measurement (m ass/volume) - 10/26/19 05:36 Serum or plasma phosphate measurement (mass/volume) 3.8 mg/dL 2.3-4.7 Magnesium - 10/26/19 05:36 Magnesium 1.6 mg/dL 1.6-2.4 Automated blood complete blood count (he mogram) panel - 11/02/19 14:50 Blood leukocytes automated count (number/volume) 6.9 10*3/uL 4.3-11.0 Blood erythrocytes automated count (number/volume) 4.94 10*6/uL 4.35-5.85 Venous blood hemoglobin measurement (mass/volume) 14.0 g/dL 11.5-16.0 Blood hematocrit (volume fraction) 45 % 35-52 Automated erythrocyte mean corpuscular volume 91 [ foz_us] 80-99 Automated erythrocyte mean corpuscular h emoglobin (mass per erythrocyte) 28 pg 25-34 Automated erythrocyte mean corpuscular h emoglobin concentration measurement (mass/volume) 31 g/dL 32-36 Automated erythrocyte distribution width ratio 15. 1 % 10.0- 14.5 Automated blood platelet count (count/volume) 304 10*3/uL 130-400 Automated blood platelet mean volume measurement 9.7 [foz_us] 7.4-10.4 Comprehensive metabolic panel - 11/02/19 14:50 Serum or plasma sodium measurement (moles/volume) 140 mmol/L 135-145 Serum or plasma potassium measurement (moles/volume) 4.2 mmol/L 3.6-5.0 Serum or plasma chloride measurement (moles/volume) 100 mmol/L 98-107 Carbon dioxide 28 mmol/L 21-32 Serum or plasma anion gap determination (moles/volume) 12 mmol/L 5-14 Serum or plasma urea nitrogen measurement (mass/volume ) 15 mg/dL 7-18 Serum or plasma creatinine measurement (mass/volume) 0.88 mg/dL 0.60-1.30 Serum or plasma urea nitrogen/creatinine mass ratio 17 NRG Serum or plasma creatinine measurement w ith calculation of estimated glomerular filtration rate > NRG Serum or plasma glucose measurement (mass/volume) 123 mg/dL 70-105 Serum or plasma calcium measurement (mass/volume) 9.6 mg/dL 8.5-10.1 Serum or plasma total bilirubin measurement (mass/volu me) 0.6 mg/dL 0.1-1.0 Serum or plasma alkaline phosphatase bj surement (enzymatic activity/volume) 118 U/L 40-136 Serum or plasma aspartate aminotransfera se measurement (enzymatic activity/volume) 31 U/L 5-34 Serum or plasma alanine aminotransferase measurement (enzymatic activity/volume) 28 U/L 0-55 Serum or plasma protein measurement (mass/volume) 7.3 g/dL 6.4-8.2 Serum or plasma albumin measurement (mass/volume) 3.7 g/dL 3.2-4.5 CALCIUM CORRECTED 9.8 mg/dL 8.5-10.1 Serum or plasma troponin i.cardiac measu rement (mass/volume) - 11/02/19 14:50 Serum or plasma troponin i.cardiac measurement (mass/v olume) < ng/mL <0.028 Influenza virus A and B antigen detectio n - 11/02/19 15:04 CALL POSITIVES (F1 HELP) HERMELINDO @[address] FLU RESULT POSITIVE FOR INFLUENZA A AND B ANTIGENS NR Blood lactic acid measurement (moles/vol ume) - 11/02/19 15:08 Blood lactic acid measurement (moles/volume) 1.16 mmol/L 0.50-2.00 Complete blood count (CBC) with automate d white blood cell (WBC) differential - 11/03/19 06:02 Blood leukocytes automated count (number/volume) 6.4 10*3/uL 4.3-11.0 Blood erythrocytes automated count (number/volume) 4.54 10*6/uL 4.35-5.85 Venous blood hemoglobin measurement (mass/volume) 13.0 g/dL 11.5-16.0 Blood hematocrit (volume fraction) 41 % 35-52 Automated erythrocyte mean corpuscular volume 91 [ foz_us] 80-99 Automated erythrocyte mean corpuscular h emoglobin (mass per erythrocyte) 29 pg 25-34 Automated erythrocyte mean corpuscular h emoglobin concentration measurement (mass/volume) 32 g/dL 32-36 Automated erythrocyte distribution width ratio 14. 8 % 10.0- 14.5 Automated blood platelet count (count/volume) 256 10*3/uL 130-400 Automated blood platelet mean volume measurement 9.8 [foz_us] 7.4-10.4 Automated blood neutrophils/100 leukocytes 59 % 42-75 Automated blood lymphocytes/100 leukocytes 25 % 12-44 Blood monocytes/100 leukocytes 11 % 0-12 Automated blood eosinophils/100 leukocytes 5 % 0-10 Automated blood basophils/100 leukocytes 0 % 0-10 Blood neutrophils automated count (number/volume) 3.8 10*3 1.8-7.8 Blood lymphocytes automated count (number/volume) 1.6 10*3 1.0-4.0 Blood monocytes automated count (number/volume) 0. 7 10*3 0.0-1.0 Automated eosinophil count 0.3 10*3/uL 0 .0-0.3 Automated blood basophil count (count/volume) 0.0 10*3/uL 0.0-0.1 Comprehensive metabolic panel - 11/03/19 06:02 Serum or plasma sodium measurement (moles/volume) 140 mmol/L 135-145 Serum or plasma potassium measurement (moles/volume) 3.3 mmol/L 3.6-5.0 Serum or plasma chloride measurement (moles/volume) 105 mmol/L 98-107 Carbon dioxide 24 mmol/L 21-32 Serum or plasma anion gap determination (moles/volume) 11 mmol/L 5-14 Serum or plasma urea nitrogen measurement (mass/volume ) 11 mg/dL 7-18 Serum or plasma creatinine measurement (mass/volume) 0.74 mg/dL 0.60-1.30 Serum or plasma urea nitrogen/creatinine mass ratio 15 NRG Serum or plasma creatinine measurement w ith calculation of estimated glomerular filtration rate > NRG Serum or plasma glucose measurement (mass/volume) 115 mg/dL 70-105 Serum or plasma calcium measurement (mass/volume) 8.7 mg/dL 8.5-10.1 Serum or plasma total bilirubin measurement (mass/volu me) 0.6 mg/dL 0.1-1.0 Serum or plasma alkaline phosphatase bj surement (enzymatic activity/volume) 104 U/L 40-136 Serum or plasma aspartate aminotransfera se measurement (enzymatic activity/volume) 23 U/L 5-34 Serum or plasma alanine aminotransferase measurement (enzymatic activity/volume) 23 U/L 0-55 Serum or plasma protein measurement (mass/volume) 6.4 g/dL 6.4-8.2 Serum or plasma albumin measurement (mass/volume) 3.3 g/dL 3.2-4.5 CALCIUM CORRECTED 9.3 mg/dL 8.5-10.1 Complete blood count (CBC) with automate d white blood cell (WBC) differential - 11/04/19 05:08 Blood leukocytes automated count (number/volume) 5.8 10*3/uL 4.3-11.0 Blood erythrocytes automated count (number/volume) 4.39 10*6/uL 4.35-5.85 Venous blood hemoglobin measurement (mass/volume) 12.6 g/dL 11.5-16.0 Blood hematocrit (volume fraction) 40 % 35-52 Automated erythrocyte mean corpuscular volume 91 [ foz_us] 80-99 Automated erythrocyte mean corpuscular h emoglobin (mass per erythrocyte) 29 pg 25-34 Automated erythrocyte mean corpuscular h emoglobin concentration measurement (mass/volume) 32 g/dL 32-36 Automated erythrocyte distribution width ratio 14. 7 % 10.0- 14.5 Automated blood platelet count (count/volume) 266 10*3/uL 130-400 Automated blood platelet mean volume measurement 9.8 [foz_us] 7.4-10.4 Automated blood neutrophils/100 leukocytes 55 % 42-75 Automated blood lymphocytes/100 leukocytes 30 % 12-44 Blood monocytes/100 leukocytes 11 % 0-12 Automated blood eosinophils/100 leukocytes 3 % 0-10 Automated blood basophils/100 leukocytes 0 % 0-10 Blood neutrophils automated count (number/volume) 3.2 10*3 1.8-7.8 Blood lymphocytes automated count (number/volume) 1.7 10*3 1.0-4.0 Blood monocytes automated count (number/volume) 0. 7 10*3 0.0-1.0 Automated eosinophil count 0.2 10*3/uL 0 .0-0.3 Automated blood basophil count (count/volume) 0.0 10*3/uL 0.0-0.1 Comprehensive metabolic panel - 11/04/19 05:08 Serum or plasma sodium measurement (moles/volume) 141 mmol/L 135-145 Serum or plasma potassium measurement (moles/volume) 3.7 mmol/L 3.6-5.0 Serum or plasma chloride measurement (moles/volume) 107 mmol/L 98-107 Carbon dioxide 23 mmol/L 21-32 Serum or plasma anion gap determination (moles/volume) 11 mmol/L 5-14 Serum or plasma urea nitrogen measurement (mass/volume ) 12 mg/dL 7-18 Serum or plasma creatinine measurement (mass/volume) 0.81 mg/dL 0.60-1.30 Serum or plasma urea nitrogen/creatinine mass ratio 15 NRG Serum or plasma creatinine measurement w ith calculation of estimated glomerular filtration rate > NRG Serum or plasma glucose measurement (mass/volume) 96 mg/dL 70-105 Serum or plasma calcium measurement (mass/volume) 8.9 mg/dL 8.5-10.1 Serum or plasma total bilirubin measurement (mass/volu me) 0.8 mg/dL 0.1-1.0 Serum or plasma alkaline phosphatase bj surement (enzymatic activity/volume) 100 U/L 40-136 Serum or plasma aspartate aminotransfera se measurement (enzymatic activity/volume) 27 U/L 5-34 Serum or plasma alanine aminotransferase measurement (enzymatic activity/volume) 25 U/L 0-55 Serum or plasma protein measurement (mass/volume) 5.9 g/dL 6.4-8.2 Serum or plasma albumin measurement (mass/volume) 3.1 g/dL 3.2-4.5 CALCIUM CORRECTED 9.6 mg/dL 8.5-10.1 Complete blood count (CBC) with automate d white blood cell (WBC) differential - 11/06/19 05:00 Blood leukocytes automated count (number/volume) 6.0 10*3/uL 4.3-11.0 Blood erythrocytes automated count (number/volume) 4.47 10*6/uL 4.35-5.85 Venous blood hemoglobin measurement (mass/volume) 12.9 g/dL 11.5-16.0 Blood hematocrit (volume fraction) 40 % 35-52 Automated erythrocyte mean corpuscular volume 90 [ foz_us] 80-99 Automated erythrocyte mean corpuscular h emoglobin (mass per erythrocyte) 29 pg 25-34 Automated erythrocyte mean corpuscular h emoglobin concentration measurement (mass/volume) 32 g/dL 32-36 Automated erythrocyte distribution width ratio 14. 6 % 10.0- 14.5 Automated blood platelet count (count/volume) 292 10*3/uL 130-400 Automated blood platelet mean volume measurement 10.0 [foz_us] 7.4-10.4 Automated blood neutrophils/100 leukocytes 58 % 42-75 Automated blood lymphocytes/100 leukocytes 28 % 12-44 Blood monocytes/100 leukocytes 11 % 0-12 Automated blood eosinophils/100 leukocytes 2 % 0-10 Automated blood basophils/100 leukocytes 0 % 0-10 Blood neutrophils automated count (number/volume) 3.5 10*3 1.8-7.8 Blood lymphocytes automated count (number/volume) 1.7 10*3 1.0-4.0 Blood monocytes automated count (number/volume) 0. 7 10*3 0.0-1.0 Automated eosinophil count 0.1 10*3/uL 0 .0-0.3 Automated blood basophil count (count/volume) 0.0 10*3/uL 0.0-0.1 Comprehensive metabolic panel - 11/06/19 05:00 Serum or plasma sodium measurement (moles/volume) 142 mmol/L 135-145 Serum or plasma potassium measurement (moles/volume) 3.3 mmol/L 3.6-5.0 Serum or plasma chloride measurement (moles/volume) 101 mmol/L 98-107 Carbon dioxide 28 mmol/L 21-32 Serum or plasma anion gap determination (moles/volume) 13 mmol/L 5-14 Serum or plasma urea nitrogen measurement (mass/volume ) 12 mg/dL 7-18 Serum or plasma creatinine measurement (mass/volume) 0.86 mg/dL 0.60-1.30 Serum or plasma urea nitrogen/creatinine mass ratio 14 NRG Serum or plasma creatinine measurement w ith calculation of estimated glomerular filtration rate > NRG Serum or plasma glucose measurement (mass/volume) 107 mg/dL 70-105 Serum or plasma calcium measurement (mass/volume) 9.4 mg/dL 8.5-10.1 Serum or plasma total bilirubin measurement (mass/volu me) 0.7 mg/dL 0.1-1.0 Serum or plasma alkaline phosphatase bj surement (enzymatic activity/volume) 102 U/L 40-136 Serum or plasma aspartate aminotransfera se measurement (enzymatic activity/volume) 29 U/L 5-34 Serum or plasma alanine aminotransferase measurement (enzymatic activity/volume) 28 U/L 0-55 Serum or plasma protein measurement (mass/volume) 6.3 g/dL 6.4-8.2 Serum or plasma albumin measurement (mass/volume) 3.3 g/dL 3.2-4.5 CALCIUM CORRECTED 10.0 mg/dL 8.5-10.1 Bacterial urine culture - 01/01/20 08:45 Bacterial urine culture [id number] NRG COLONY COUNT >100,000/ML NRG SUSCEPTIBILITY SUSCEPTIBILITY REPORTED 01/02 10:45 NRG RAPID ID RAPID ID TEST AT [facility] 01/01 07:20 NRG Complete urinalysis with reflex to cultu re - 01/01/20 08:45 Urine color determination YELLOW NRG Urine clarity determination CLEAR NR G Urine pH measurement by test strip 7.0 5-9 Specific gravity of urine by test strip 1.025 1.016-1.022 Urine protein assay by test strip, semi-quantitative 3+ NEGATIVE Urine glucose detection by automated test strip NE GATIVE NEGATIVE Erythrocytes detection in urine sediment by light micr oscopy TRACE-I NEGATIVE Urine ketones detection by automated test strip NE GATIVE NEGATIVE Urine nitrite detection by test strip NEGATIVE NEGATIVE Urine total bilirubin detection by test strip NEGA TIVE NEGATIVE Urine urobilinogen measurement by automated test strip (mass/volume) 0.2 mg/dL < = 1.0 Urine leukocyte esterase detection by dipstick NEG ATIVE NEGATIVE Automated urine sediment erythrocyte cou nt by microscopy (number/high power field) RARE NRG Automated urine sediment leukocyte count by microscopy (number/high power field) [HPF] NRG Bacteria detection in urine sediment by light microsco py FEW NRG Squamous epithelial cells detection in u rine sediment by light microscopy 0-2 NRG Crystals detection in urine sediment by light microsco py NONE NRG Casts detection in urine sediment by light microscopy NONE NRG Mucus detection in urine sediment by light microscopy NEGATIVE NRG Complete urinalysis with reflex to culture YES NRG Dirithromycin susceptibility test by dis k diffusion - 01/01/20 08:45 Vancomycin susceptibility test by minimum inhibitory c oncentration 1 NRG Levofloxacin susceptibility test by minimum inhibitory concentration <= NRG Ampicillin susceptibility test by minimum inhibitory c oncentration 1 NRG Nitrofurantoin susceptibility test by mi nimum inhibitory concentration <= NRG Linezolid susceptibility test by minimum inhibitory co ncentration <= NRG Daptomycin susc KENA <= NRG Bacterial blood culture - 01/01/20 09:35 Bacterial blood culture NG NRG Bacterial blood culture - 01/01/20 09:42 Bacterial blood culture NG NRG Complete blood count (CBC) with automate d white blood cell (WBC) differential - 01/02/20 06:30 Blood leukocytes automated count (number/volume) 13.7 10*3/uL 4.3-11.0 Blood erythrocytes automated count (number/volume) 4.18 10*6/uL 4.35-5.85 Venous blood hemoglobin measurement (mass/volume) 12.3 g/dL 11.5-16.0 Blood hematocrit (volume fraction) 38 % 35-52 Automated erythrocyte mean corpuscular volume 91 [ foz_us] 80-99 Automated erythrocyte mean corpuscular h emoglobin (mass per erythrocyte) 29 pg 25-34 Automated erythrocyte mean corpuscular h emoglobin concentration measurement (mass/volume) 33 g/dL 32-36 Automated erythrocyte distribution width ratio 15. 4 % 10.0- 14.5 Automated blood platelet count (count/volume) 290 10*3/uL 130-400 Automated blood platelet mean volume measurement 10.4 [foz_us] 7.4-10.4 Automated blood neutrophils/100 leukocytes 78 % 42-75 Automated blood lymphocytes/100 leukocytes 11 % 12-44 Blood monocytes/100 leukocytes 7 % 0-12 Automated blood eosinophils/100 leukocytes 4 % 0-10 Automated blood basophils/100 leukocytes 0 % 0-10 Blood neutrophils automated count (number/volume) 10.8 10*3 1.8-7.8 Blood lymphocytes automated count (number/volume) 1.5 10*3 1.0-4.0 Blood monocytes automated count (number/volume) 0. 9 10*3 0.0-1.0 Automated eosinophil count 0.5 10*3/uL 0 .0-0.3 Automated blood basophil count (count/volume) 0.0 10*3/uL 0.0-0.1 Whole blood basic metabolic panel - 12/16 05/06 06:30 Serum or plasma sodium measurement (moles/volume) 137 mmol/L 135-145 Serum or plasma potassium measurement (moles/volume) 3.6 mmol/L 3.6-5.0 Serum or plasma chloride measurement (moles/volume) 104 mmol/L 98-107 Carbon dioxide 22 mmol/L 21-32 Serum or plasma anion gap determination (moles/volume) 11 mmol/L 5-14 Serum or plasma urea nitrogen measurement (mass/volume ) 14 mg/dL 7-18 Serum or plasma creatinine measurement (mass/volume) 0.72 mg/dL 0.60-1.30 Serum or plasma urea nitrogen/creatinine mass ratio 19 NRG Serum or plasma creatinine measurement w ith calculation of estimated glomerular filtration rate > NRG Serum or plasma glucose measurement (mass/volume) 105 mg/dL 70-105 Serum or plasma calcium measurement (mass/volume) 8.6 mg/dL 8.5-10.1 Complete blood count (CBC) with automate d white blood cell (WBC) differential - 01/03/20 04:45 Blood leukocytes automated count (number/volume) 13.3 10*3/uL 4.3-11.0 Blood erythrocytes automated count (number/volume) 4.31 10*6/uL 4.35-5.85 Venous blood hemoglobin measurement (mass/volume) 12.6 g/dL 11.5-16.0 Blood hematocrit (volume fraction) 39 % 35-52 Automated erythrocyte mean corpuscular volume 91 [ foz_us] 80-99 Automated erythrocyte mean corpuscular h emoglobin (mass per erythrocyte) 29 pg 25-34 Automated erythrocyte mean corpuscular h emoglobin concentration measurement (mass/volume) 32 g/dL 32-36 Automated erythrocyte distribution width ratio 15. 1 % 10.0- 14.5 Automated blood platelet count (count/volume) 295 10*3/uL 130-400 Automated blood platelet mean volume measurement 10.3 [foz_us] 7.4-10.4 Automated blood neutrophils/100 leukocytes 91 % 42-75 Automated blood lymphocytes/100 leukocytes 4 % 12-44 Blood monocytes/100 leukocytes 5 % 0-12 Automated blood eosinophils/100 leukocytes 0 % 0-10 Automated blood basophils/100 leukocytes 0 % 0-10 Blood neutrophils automated count (number/volume) 12.1 10*3 1.8-7.8 Blood lymphocytes automated count (number/volume) 0.6 10*3 1.0-4.0 Blood monocytes automated count (number/volume) 0. 6 10*3 0.0-1.0 Automated eosinophil count 0.0 10*3/uL 0 .0-0.3 Automated blood basophil count (count/volume) 0.0 10*3/uL 0.0-0.1 Comprehensive metabolic panel - 01/03/20 04:45 Serum or plasma sodium measurement (moles/volume) 137 mmol/L 135-145 Serum or plasma potassium measurement (moles/volume) 4.3 mmol/L 3.6-5.0 Serum or plasma chloride measurement (moles/volume) 104 mmol/L 98-107 Carbon dioxide 24 mmol/L 21-32 Serum or plasma anion gap determination (moles/volume) 9 mmol/L 5-14 Serum or plasma urea nitrogen measurement (mass/volume ) 17 mg/dL 7-18 Serum or plasma creatinine measurement (mass/volume) 0.84 mg/dL 0.60-1.30 Serum or plasma urea nitrogen/creatinine mass ratio 20 NRG Serum or plasma creatinine measurement w ith calculation of estimated glomerular filtration rate > NRG Serum or plasma glucose measurement (mass/volume) 262 mg/dL 70-105 Serum or plasma calcium measurement (mass/volume) 8.9 mg/dL 8.5-10.1 Serum or plasma total bilirubin measurement (mass/volu me) 0.7 mg/dL 0.1-1.0 Serum or plasma alkaline phosphatase bj surement (enzymatic activity/volume) 104 U/L 40-136 Serum or plasma aspartate aminotransfera se measurement (enzymatic activity/volume) 17 U/L 5-34 Serum or plasma alanine aminotransferase measurement (enzymatic activity/volume) 13 U/L 0-55 Serum or plasma protein measurement (mass/volume) 6.7 g/dL 6.4-8.2 Serum or plasma albumin measurement (mass/volume) 3.3 g/dL 3.2-4.5 CALCIUM CORRECTED 9.5 mg/dL 8.5-10.1 Complete blood count (CBC) with automate d white blood cell (WBC) differential - 01/04/20 04:55 Blood leukocytes automated count (number/volume) 17.8 10*3/uL 4.3-11.0 Blood erythrocytes automated count (number/volume) 4.15 10*6/uL 4.35-5.85 Venous blood hemoglobin measurement (mass/volume) 12.3 g/dL 11.5-16.0 Blood hematocrit (volume fraction) 38 % 35-52 Automated erythrocyte mean corpuscular volume 91 [ foz_us] 80-99 Automated erythrocyte mean corpuscular h emoglobin (mass per erythrocyte) 30 pg 25-34 Automated erythrocyte mean corpuscular h emoglobin concentration measurement (mass/volume) 33 g/dL 32-36 Automated erythrocyte distribution width ratio 15. 4 % 10.0- 14.5 Automated blood platelet count (count/volume) 365 10*3/uL 130-400 Automated blood platelet mean volume measurement 10.4 [foz_us] 7.4-10.4 Automated blood neutrophils/100 leukocytes 87 % 42-75 Automated blood lymphocytes/100 leukocytes 7 % 12-44 Blood monocytes/100 leukocytes 6 % 0-12 Automated blood eosinophils/100 leukocytes 0 % 0-10 Automated blood basophils/100 leukocytes 0 % 0-10 Blood neutrophils automated count (number/volume) 15.5 10*3 1.8-7.8 Blood lymphocytes automated count (number/volume) 1.3 10*3 1.0-4.0 Blood monocytes automated count (number/volume) 1. 1 10*3 0.0-1.0 Automated eosinophil count 0.0 10*3/uL 0 .0-0.3 Automated blood basophil count (count/volume) 0.0 10*3/uL 0.0-0.1 Comprehensive metabolic panel - 01/04/20 04:55 Serum or plasma sodium measurement (moles/volume) 136 mmol/L 135-145 Serum or plasma potassium measurement (moles/volume) 4.4 mmol/L 3.6-5.0 Serum or plasma chloride measurement (moles/volume) 101 mmol/L 98-107 Carbon dioxide 24 mmol/L 21-32 Serum or plasma anion gap determination (moles/volume) 11 mmol/L 5-14 Serum or plasma urea nitrogen measurement (mass/volume ) 27 mg/dL 7-18 Serum or plasma creatinine measurement (mass/volume) 0.86 mg/dL 0.60-1.30 Serum or plasma urea nitrogen/creatinine mass ratio 31 NRG Serum or plasma creatinine measurement w ith calculation of estimated glomerular filtration rate > NRG Serum or plasma glucose measurement (mass/volume) 129 mg/dL 70-105 Serum or plasma calcium measurement (mass/volume) 9.2 mg/dL 8.5-10.1 Serum or plasma total bilirubin measurement (mass/volu me) 0.6 mg/dL 0.1-1.0 Serum or plasma alkaline phosphatase bj surement (enzymatic activity/volume) 107 U/L 40-136 Serum or plasma aspartate aminotransfera se measurement (enzymatic activity/volume) 23 U/L 5-34 Serum or plasma alanine aminotransferase measurement (enzymatic activity/volume) 15 U/L 0-55 Serum or plasma protein measurement (mass/volume) 6.6 g/dL 6.4-8.2 Serum or plasma albumin measurement (mass/volume) 3.4 g/dL 3.2-4.5 CALCIUM CORRECTED 9.7 mg/dL 8.5-10.1 Encounters ACCT No. Visit Date/Time Discharge Status Pt. Type Provider Facility Loc./Unit Complaint [id number] 04/04/2020 10:48:00 020 23:59:59 CLS Outpatient LIBRADO BONILLA MD [facility] [id number] 01/01/2020 09:52:00 020 14:09:00 DIS Inpatient JEROME NEAL DO, [facility] 4TH L HIP FX;UTI;INLFUENZA A B;SEPSIS [id number] 11/02/2019 15:43:00 020 12:00:00 DIS Inpatient NEALJEROME MILLER DO, [facility] 4TH INFLUENZA A,B;HERPES ZO STER [id number] 10/14/2019 10:20:00 020 11:00:00 DIS Inpatient NEALJEROME MILLER DO, V [facility] IRF CHF MYOPATHY [id number] 10/11/2019 02:41:00 019 10:15:00 DIS Inpatient NEALJEROME MILLER DO, [facility] 4TH INTRACTABLE VERTIGO;HTN ;CHF;RLL PNEUMONIA [id number] 10/06/2019 23:17:00 019 13:20:00 DIS Inpatient JEROME NEAL DO, [facility] 4TH A-FIB RVR,COPD EXACERBA TION [id number] 02/22/2019 10:30:00 019 23:59:59 CLS Outpatient JEROME NEAL DO [facility] RAD COUGH [id number] 11/01/2018 23:47:00 019 14:50:00 DIS Inpatient JEROME NEAL DO, [facility] 4TH A-FIB RVR, FLUID OVERLO AD [id number] 03/20/2018 00:14:00 018 02:30:00 DIS Emergency PATRICIA CABAN MD [facility] ER LOW O2 90% FALL 3 TIMES TODAY WHIZZY [id number] 12/26/2017 21:00:00 018 12:40:00 DIS Inpatient JUN MARCIAL MD [facility] 4TH ACUTE HEART FAILURE HYP OXIA, INFLUENZA B [id number] 04/26/2017 10:15:00 017 23:59:59 CLS Preadmit NEAL JEROME Vi [facility] PULM BILAT PNEUMONIA [id number] 04/01/2017 09:00:00 017 00:01:00 DIS Outpatient NEAL DO, JEROME [facility] PULM BILAT PNEUMONIA [id number] 03/04/2017 07:38:00 017 23:59:59 CLS Outpatient NEAL DO, JEROME [facility] RAD N63 [id number] 02/24/2017 12:20:00 017 23:59:59 CLS Outpatient JEWEL THAKKAR DO [facility] RAD R06.00 SOB [id number] 02/08/2017 13:28:00 017 23:59:59 CLS Outpatient ERIC REIS APRN [facility] RT Z87.891,R06.00 [id number] 12/25/2016 14:37:00 017 11:05:00 DIS Inpatient NEAL DO, JEROME [facility] 4TH PNEUMONIA BILAT A-FIB W /RVR [id number] 12/16/2016 12:27:00 017 11:40:00 DIS Inpatient NEAL DO, JEROME V [facility] 4TH AFIB W/ RVR,RESP FAILUR E,PNEUMONIA [id number] 08/27/2016 05:20:00 016 13:15:00 DIS Inpatient NEAL DO, JEROME [facility] 4TH LLL PNEUMONIA W/ HYPOXI A; AFIB W/ RVR; HTN [id number] 03/22/2013 13:54:00 013 23:59:59 CLS Outpatient [id number] 05/01/2020 10:44:[address] Emergency JACQUE PRITCHETT COLLECTIONS CURATOR [facility] ER STROKE
--- NOTE | 2020-05-01 12:42 | NUR ---
Pt returns from MRI.
--- NOTE | 2020-05-01 12:58 | Diagnostic Imaging Report ---
PROCEDURE: MR imaging of the brain without contrast. TECHNIQUE: Multiplanar, multisequence MR imaging of the brain was performed without contrast. INDICATION: Weakness. Unable to speak. Concern for stroke. Comparison: CTA head and neck on 05/01/2020. Findings: An area of acute/subacute ischemia is seen involving the left insular cortex and left rushing radiata. No associated hemorrhage or mass effect is seen. Old lacunar infarct is seen in the right rushing radiata. Chronic microvascular disease is seen in the periventricular and subcortical white matter. The ventricles and cortical sulci are diffusely prominent. The basilar cisterns are symmetric and unremarkable. There is flattening of the pituitary. The major intracranial flow voids are intact. The brainstem and posterior fossa are unremarkable. The paranasal sinuses and mastoid air cells demonstrate normal signal characteristics. The globes and orbits are symmetric and unremarkable. The scalp and calvarium have a normal appearance. Impression: 1. Focus of acute/subacute ischemia involving the left insular cortex and left rushing radiata. No associated hemorrhage or mass effect. 2. Chronic microvascular disease. 3. Generalized parenchymal volume loss. Findings were discussed with Dr. Espinosa at 12:50 PM on 05/01/[address] Rowdy Gordon. Dictated by: Dictated on workstation # [id number]
--- NOTE | 2020-05-01 13:58 | Progress Note ---
BALDEMAR MARTELL MED STUDENT 05/01/20 1358: Progress Note Neuro Workup: History: Ms. Lee just arrived in ICU9 after arriving in ER 05/01 with aphasia and R sided weakness. Last known well 9 pm last night before she went to bed, was awoken by her after she did not wake at her typical time, and was found to be nonverbal with R sided weakness. Daughter reports that she missed about 3 days of eliquis prior to today. She has a medical history of CHF and afib, with multiple hospitalizations for each since 2018. She also has a history of COPD, CAD w/ stents, hypercholesterolemia, hypertension, dementia, GERD, rheumatoid arthritis, osteoarthritis, anxiety, and depression. Neuro Exam: Ms. Lee was somnolent, falling asleep frequently during exam, and unable to change her position. Appeared to be aware of her current condition. Cranial Nerves: - II - pupils equal and reactive to light bilaterally. - III/IV/ - difficulty maintaining focus to track, eyes moved symmetrically. Showed full superior and inferior movement on left, some rightward gaze, no superior and inferior gaze demonstrated on right. - V - unable to indicate whether she had sensation, did open eyes to palpation of face in superior trigeminal distribution - VII - R sided droop when asked to smile, slight motion on left when asked to smile. - VIII - able to follow verbal commands when standing on either side of her - IX, X - palate elevates symmetrically - XI - was able to turn head towards those speaking to her, kept head turned towards left mostly. Did not demonstrate any effort to turn head against hand when requested - XII - tongue midline, did not demonstrate ability to stick out tongue when requested Motor: 4+ hand squeez on L, 1+ on R. 4+ elbow flexion on L, 0 on R. Did not demonstrate ability to flex or extend wrists, abduct shoulders bilaterally. Able to elevate L arm for several seconds, no ability to maintain R arm elevation. 4+ L ankle flexion and extension, 3+ R ankle flexion, 2+ R ankle extension Able to elevate L leg for several seconds, able to maintain R leg elevation briefly before slowly dropping leg. Reflexes: Unable to change position to properly evaluate reflexes. Able to feel twitch with palpation of patellar and biceps reflex. Sensation: Unable to communicate about her sensation. Did open eyes when her feet are to uched bilaterally. Coordination: Did not display ability to lift either arm for [id number] test when requested. Assessment: R sided paresis. Based on history of afib without eliquis, R sided weakness greater in R UE, as well as R sided facial droop and potential R sided visual field defect or neglect, and aphasia, suspicious for L sided cardioembolic oc clusion within distribution of middle cerebral artery. Somnolence, generalized weakness. Hx of Afib, recently missed doses of eliquis for around 3 days CHF hypercholesterolemia hypertension dementia [MRI Impression: 1. Focus of acute/subacute ischemia involving the left insular cortex and left rushing radiata. No associated hemorrhage or mass effect. 2. Chronic microvascular disease. 3. Generalized parenchymal volume loss.] TERESE NEAL DO 05/01/202127: Supervisory-Addendum Brief Verification & Attestation Participated in pt care: history, MDM, physical Personally performed: exam, history, MDM, supervision of care Care discussed with: Medical Student Procedures: n/a Results interpretation: Verified all documentation Verification and Attestation of Medical Student E/M Service A medical student performed and documented this service in my presence. I reviewed and verified all information documented by the medical student and made modifications to such information, when appropriate. I personally performed the physical exam and medical decision making. Terese Neal, May 01, 2020,21:28 BALDEMAR MARTELL MED STUDENT May 01, 2020 13:58 TERESE NEAL DO May 01, 2020 21:28
--- NOTE | 2020-05-01 15:01 | Physical Therapy Evaluation ---
PT Evaluation-General Medical Diagnosis Admission Date May 01, 2020 at 12:43 Medical Diagnosis: CVA Onset Date: May 01, 2020 Therapy Diagnosis Therapy Diagnosis: impaired mobility, strength, endurance, balance Height/Weight Height (Feet): 5 Height (Inches): 4.00 Weight (Pounds): 170 Weight (Ounces): 0 Weight Bear Status Right Lower Extremity: Right Weight Bearing/Tolerated Left Lower Extremity: Left Weight Bearing/Tolerated Referral Physician: Terese Verde DO Reason for Referral: Evaluation/Treatment Medical History Pertinent Medical History: Atrial Fib, Arthritis, CAD, COPD, Dementia, HTN, [place], Renal Insufficiency, Rheumatoid Arthritis Additional Medical History Past Medical History Surgeries: Yes (CARDIAC CATH X 3--STENTS X 4) Cardiac, Coronary Stent, Gallbladder, Tubal Ligation Respiratory: Yes Pneumonia, COPD Currently Using CPAP: No Currently Using BIPAP: No Cardiac: Yes (CHF; CARDIAC CATHS X 3 WITH STENTS X 4) Atrial Fibrillation, Coronary Artery Disease, High Cholesterol, Hypertension 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: No 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 ) Loss of Vision: Denies Cancer: No Psychosocial: Yes Anxiety, Depression Reviewed History: Yes Social History Patient non-verbal at this time, no history obtained. Prior Prior Level of Function SCALE: Activities may be completed with or without assistive devices. 7-[id number]-sgitpus completes the activity by him/herself with no assistance from a helper. 5-Set-up or Clean-up Assistance-helper sets up or cleans up; patient completes activity. [place] assists only prior to or following the activity. 4-Supervision or Touching Assistance-helper provides verbal cues and/or touching/steadying and/or contact guard assistance as patient completes activity. Assistance may be provided throughout the activity or intermittently. 3-Partial/Moderate Assistance-helper does LESS THAN HALF the effort. [place] lifts, holds or supports trunk or limbs, but provides less than half the effort. 2-Substantial/Maximal Assistance-helper does MORE THAN HALF the effort. [place] lifts or holds trunk or limbs and provides more than half the effort. 9-Fykqotltf-vgtjfx does ALL the effort. Patient does none of the effort to complete the activity. Or, the assistance of 2 or more helpers is required for the patient to complete the activity. If activity was not attempted, code reason: 7-Patient Refused. 9-Not Applicable-not attempted and the patient did not perform the activity before the current illness, exacerbation or injury. 10-Not Attempted due to Environmental Limitations-(lack of equipment, weather restraints, etc.). 88-Not Attempted due to Medical Conditions or Safety Concerns. unknown PT Evaluation-Current Subjective Patient in bed pre tx, non-verbal, very drowsy, opens eyes when talked to. Pt/Family Goals none stated Objective Patient Orientation: Unable to Assess Attachments: Oxygen, Arana Catheter ROM/Strength ROM Lower Extremities WNL Strength Lower Extremities unable to assess, patient doesn't follow directions Neuromuscular (Tone, Coordination, Reflexes) Patient may have increased muscle tone in her right leg but it is hard to tell because she also appears to resist movement. Transfers Roll Left to Right (QC): 1 Sit to Lying (QC): 1 Lying to Sitting/Side of Bed(Q: 1 Dependent for supine to sit. Patient sat on the side of the bed for about 1 min before oxygen dropped, immediately layed patient back down and it went back up to 96% quickly. Patient dependent for sitting balance also. Assessment/Needs Patient has impaired mobility, strength, endurance, balance. She will not turn her head past midline, keeps head turned to the left side, has right hemiparesis. Patient in bed post tx with nurse call, clover, all needs met. Rehab Potential: Guarded PT Front Office Clerk Goals Front Office Clerk Goals PT Assisted Goals Time Frame: May 08, 2020 Roll Left & Right (QC): 2 Sit to Lying (QC): 2 Lying-Sitting on Side/Bed(QC): 2 Sit to Stand (QC): 2 Chair/Lmj-ot-Lqwlr Xfer(QC): 2 PT Plan Problem List Problem List: Activity Tolerance, Functional Strength, Safety, Balance, Gait, Transfer, Bed Mobility, ROM Treatment/Plan Treatment Plan: Continue Plan of Care Treatment Plan: Bed Mobility, Education, Functional Activity Rex, Functional Strength, Gait, Safety, Therapeutic Exercise, Transfers Treatment Duration: May 08, 2020 Frequency: 6 times per week Estimated Hrs Per Day: .25 hour per day Patient and/or Family Agrees t: Yes Safety Risks/Education Patient Education: Correct Positioning, Safety Issues Teaching Recipient: Patient Teaching Methods: Demonstration, Discussion Response to Teaching: Reinforcement Needed Discharge Recommendations Plan Patient will perform bed mobility and transfer training, balance and endurance training, functional strengthening, gait training, and education, to improve functional mobility and independence at home. Therapy Discharge Recommendati: Other, See Comments ([place]), Home & Family, Post Acute PT Time/GCodes Time In: 1440 Time Out: 1451 Total Billed Treatment Time: 11 Total Billed Treatment 1 visit [facility] 11' XIAO COLEY PT May 01, 2020 15:01
[2020-05-01] MEDS: ENOXAPARIN 80 MG/0.8 ML (LOVENOX) SYR SC SCH (17:20)
[2020-05-01] MEDS ORDERED: ALBUTEROL/IPRATROP (COMBIVENT RESPIMAT) 4 GM INHALER ONE (21:08)
--- NOTE | 2020-05-01 21:24 | History & Physical-Hospitalist ---
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 Lee just arrived in ICU9 after arriving in ER 05/01 with aphasia and R sided weakness. Last known well 9 pm last night before she went to bed, was awoken by her after she did not wake at her typical time, and was found to be nonverbal with R sided weakness. Daughter reports that she missed about 3 days of eliquis prior to today. She has a medical history of CHF and afib, with multiple hospitalizations for each since 2018. She also has a history of COPD, CAD w/ stents, hypercholesterolemia, hypertension, dementia, GERD, rheumatoid arthritis, osteoarthritis, anxiety, and depression. Neuro Exam: Ms. Lee was somnolent, falling asleep frequently during exam, and unable to change her position. Appeared to be aware of her current condition. Cranial Nerves: - II - pupils equal and reactive to light bilaterally. - III/IV/ - difficulty maintaining focus to track, eyes moved symmetrically. Showed full superior and inferior movement on left, some rightward gaze, no superior and inferior gaze demonstrated on right. - V - unable to indicate whether she had sensation, did open eyes to palpation of face in superior trigeminal distribution - VII - R sided droop when asked to smile, slight motion on left when asked to smile. - VIII - able to follow verbal commands when standing on either side of her - IX, X - palate elevates symmetrically - XI - was able to turn head towards those speaking to her, kept head turned towards left mostly. Did not demonstrate any effort to turn head against hand when requested - XII - tongue midline, did not demonstrate ability to stick out tongue when requested Motor: 4+ hand squeez on L, 1+ on R. 4+ elbow flexion on L, 0 on R. Did not demonstrate ability to flex or extend wrists, abduct shoulders bilaterally. Able to elevate L arm for several seconds, no ability to maintain R arm elevation. 4+ L ankle flexion and extension, 3+ R ankle flexion, 2+ R ankle extension Able to elevate L leg for several seconds, able to maintain R leg elevation briefly before slowly dropping leg. Reflexes: Unable to change position to properly evaluate reflexes. Able to feel twitch with palpation of patellar and biceps reflex. Sensation: Unable to communicate about her sensation. Did open eyes when her feet are touched bilaterally. Coordination: Did not display ability to lift either arm for [id number] test when requested. Assessment: R sided paresis. Based on history of afib without eliquis, R sided weakness greater in R UE, as well as R sided facial droop and potential R sided visual field defect or neglect, and aphasia, suspicious for L sided cardioembolic occlusion within distribution of middle cerebral artery. Somnolence, generalized weakness. Hx of Afib, recently missed doses of eliquis for around 3 days CHF hypercholesterolemia hypertension dementia [MRI Impression: 1. Focus of acute/subacute ischemia involving the left insular cortex and left rushing radiata. No associated hemorrhage or mass effect. 2. Chronic microvascular disease. 3. Generalized parenchymal volume loss.] Verification and Attestation Supervisory-Addendum Brief BALDEMAR MARTELL MED STUDENT May 01, 2020 13:58 Source: family, RN/MD Exam Limitations: physical impairment Date Seen 05/01/20 Time Seen by a Provider: 12:00 Attending Physician Terese Neal DO PCP Terese Neal DO Referring Physician Date of Admission May 01, 2020 at 12:43 Home Medications & Allergies Home Medications Reviewed patient Home Medication Reconciliation performed by pharmacy medication reconciliations photo equipment technician and/or nursing. Patients Allergies have been reviewed. Allergies Allergies Coded Allergies Sulfa (Sulfonamide Antibiotics) (Verified Allergy, Unknown, 12/27/17) Past Mucrtcl-Oziwog-Zzcihu Hx Past Med/Social Hx: Reviewed Nursing Past Med/Soc Hx, Reviewed and Corrections made Patient Social History Marrital Status: Employed/Student: retired Alcohol Use: Denies Use Recreational Drug Use: No Smoking Status: Former Smoker Former Smoker, Quit: Aug 27, 2004 Type Used: Cigarettes 2nd Hand Smoke Exposure: No Recent Foreign Travel: No Contact w/other who traveled: No Recent Hopitalizations: No Recent Infectious Disease Expo: No Immunizations Up To Date Tetanus Booster (TDap): Unknown Date of Pneumonia Vaccine: Sep 17, 2015 Date of Influenza Vaccine: Jul 19, 2019 Seasonal Allergies Seasonal Allergies: No Past Medical History Surgeries: Cardiac, Coronary Stent, Gallbladder, Tubal Ligation Respiratory: Chronic Bronchitis, COPD, Emphysema, Pneumonia Currently Using CPAP: No Currently Using BIPAP: No Cardiac: Atrial Fibrillation, Coronary Artery Disease, High Cholesterol, Hypertension 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: Dementia Sexually Transmitted Disease: No HIV/AIDS: No Menopausal Genitourinary: Bladder Infection Gastrointestinal: Gastroesophageal Reflux Musculoskeletal: Arthritis, Rheumatoid Arthritis, Chronic Back Pain Loss of Vision: Denies Psychosocial: Anxiety, Depression History of Blood Disorders: No Adverse Reaction to Blood Sousa: No Family History Cardiovascular disease 19 MOTHER Diabetes mellitus 19 MOTHER Hypertension 19 MOTHER No Pertinent Family Hx LONG HISTORY OF NON-COMPLIANCE Review of Systems Constitutional: see HPI, weakness Psychiatric/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: Weakness Physical Exam Physical Exam Vital Signs Vital Signs - First Documented 05/01/20 05/01/20 10:47 11:00 Temp 36.2 Pulse 90 Resp 20 B/P (MAP) 171/109 (129) Pulse Ox 96 O2 Delivery Nasal Cannula O2 Flow Rate 2.00 Capillary Refill : Less Than 3 Seconds Height, Weight, BMI Height: 5'4.00" Weight: 170lbs. 0oz. 77.790993cp; 30.00 BMI Method:Stated General Appearance: No Apparent Distress, WD/WN, Chronically ill Eyes: Right Eye Normal Inspection, Right Eye PERRL HEENT: PERRL/EOMI, Normal ENT Inspection, Pharynx Normal, Moist Mucous Membranes Neck: Full Range of Motion, Normal Inspection, Non Tender Respiratory: Chest Non Tender, Lungs Clear, Normal Breath Sounds, No Accessory Muscle Use, No Respiratory Distress, Decreased Breath Sounds Cardiovascular: No Edema, No Gallop, No JVD, No Murmur, Normal Peripheral Pulses, Irregularly Irregular Gastrointestinal: Normal Bowel Sounds, No Organomegaly, No Pulsatile Mass, Non Tender, Soft Back: Normal Inspection, No CVA Tenderness, No Vertebral Tenderness, Decreased Range of Motion Extremity: Normal Capillary Refill, Normal Inspection, Normal Range of Motion, Non Tender, No Calf Tenderness, No Pedal Edema Neurologic/Psychiatric: Alert, No Motor/Sensory Deficits, Abnormal medical and health services manager II-XII (right sided gaze), Aphasia, Depressed Affect, Motor Weakness (right arm and right leg) Skin: Normal Color, Warm/Dry Lymphatic: No Adenopathy Results Results/Procedures Labs Laboratory Tests 05/01/20 11:28 Patient resulted labs reviewed. 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 HTN AF Recent hip fracture Debility COPD h/o delirium severe requiring NH placement for months just recently DC home 4 weeks ago Plan: MRI Lovenox Swallow study PT OT Admission Status: Inpatient Order (span 2 midnights) Reason for Inpatient Admission: CVA subacute Diagnosis/Problems Diagnosis/Problems (1) CVA (cerebral vascular accident) (2) Aphasia (3) Atrial fibrillation Status: Acute (4) EMPHYSEMA, UNSPECIFIED Status: Chronic (5) History of shingles (6) Debility Status: Acute (7) Dementia (8) Delirium (9) Memory loss (10) Hypoxia Status: Chronic (11) Denial about severity of illness (12) Uncontrolled hypertension Status: Acute Clinical Quality Measures DVT/VTE Risk/Contraindication: Risk Factor Score Per Nursin RFS Level Per Nursing on Admit: 4+=Very High Stroke: Date of last known well: May 01, 2020 Time of last known well: 11:07 Symptoms onset unknown: Yes TERESE NEAL DO May 01, 2020 21:24
[2020-05-02] VITALS (24 sets, daily range): BP systolic 122–169; BP diastolic 75–127
[2020-05-02 03:30] LABS: BASOPHILS % (AUTO) 0 % (0-10); EOSINOPHILS # (AUTO) 0.1 10^3/uL (0.0-0.3); EOSINOPHILS % (AUTO) 1 % (0-10); HEMATOCRIT 45 % (35-52); HEMOGLOBIN 14.9 G/DL (11.5-16.0); LYMPHOCYTES # (AUTO) 2.2 X 10^3 (1.0-4.0); LYMPHOCYTES % (AUTO) 21 % (12-44); MEAN CORPUSCULAR HEMOGLOBIN 29 PG (25-34); MEAN CORPUSCULAR HGB CONC 33 G/DL (32-36); MEAN CORPUSCULAR VOLUME 90 FL (80-99); MEAN PLATELET VOLUME 10.4 FL (7.4-10.4); MONOCYTES # (AUTO) 0.9 X 10^3 (0.0-1.0); MONOCYTES % (AUTO) 8 % (0-12); NEUTROPHILS # (AUTO) 7.4 X 10^3 (1.8-7.8); NEUTROPHILS % (AUTO) 69 % (42-75); PLATELET COUNT 278 10^3/uL (130-400); RED CELL DISTRIBUTION WIDTH 14.1 % (10.0-14.5); WHITE BLOOD COUNT 10.6 10^3/uL (4.3-11.0)
[2020-05-02] MEDS: ENOXAPARIN 80 MG/0.8 ML (LOVENOX) SYR SC SCH (03:42)
[2020-05-02 03:46] LABS: BUN/CREATININE RATIO 20; CALCIUM 10.1 MG/DL (8.5-10.1); CARBON DIOXIDE 27 MMOL/L (21-32); CHLORIDE 103 MMOL/L (98-107); CHOLESTEROL 180 MG/DL (< 200); CREATININE SERUM 0.85 MG/DL (0.60-1.30); GFR ESTIMATED > 60; GLUCOSE 95 MG/DL (70-105); HDL CHOLESTEROL 52 MG/DL (40-60); MAGNESIUM 1.8 MG/DL (1.6-2.4); PHOSPHORUS 4.4 MG/DL (2.3-4.7); POTASSIUM 3.9 MMOL/L (3.6-5.0); SODIUM 144 MMOL/L (135-145); TRIGLYCERIDES 142 MG/DL (<150); VLDL CHOLESTEROL 28 MG/DL (5-40)
--- NOTE | 2020-05-02 06:23 | Pulmonary Consultation ---
History of Present Illness History of Present Illness Date Seen by Provider: May 02, 2020 Time Seen by Provider: 06:18 Date of Admission Allergies and Home Medications Allergies Coded Allergies: Sulfa (Sulfonamide Antibiotics) (Verified Allergy, Unknown, 12/27/17) Home Medications Acetaminophen 650 Mg Tablet.er, 1,300 MG PO Q8H PRN for PAIN-MILD (1-4), (Reported) Amoxicillin 500 Mg Tablet, 500 MG PO TID Prescribed by: JEROME NEAL on 01/04/20956 Apixaban 5 Mg Tablet, 5 MG PO BID, (Reported) Atorvastatin Calcium 20 Mg Tablet, 20 MG PO HS, (Reported) Calcium Carbonate 200 Mg Tab.chew, 500 MG PO TID PRN for INDIGESTION, (Reported) Carvedilol 6.25 Mg Tablet, 6.25 MG PO BID, (Reported) Citalopram Hydrobromide 20 Mg Tablet, 20 MG PO HS, (Reported) Diltiazem HCl 240 Mg Cap.er.24h, 240 MG PO DAILY, (Reported) Fluticasone/Salmeterol 12 Gm Hfa.aer.ad, 2 PUFF IH Q12H PRN for SHORTNESS OF BREATH, (Reported) Furosemide 40 Mg Tablet, 40 MG PO DAILY, (Reported) Hydrocodone/Acetaminophen 1 Each Tablet, 1 TAB PO Q4H PRN for PAIN-MODERATE Prescribed by: JEROME NEAL on 01/04/20956 Ipratropium/Albuterol Sulfate 3 Ml Ampul.neb, 3 ML NEB QID PRN for SHORTNESS OF BREATH, (Reported) Lidocaine HCl 76.5 Gm Cream..g., 1 APPLIC TP Q4H PRN for HERPETIC PAIN, (Reported) APPLY TO LEFT TORSO RASH Loperamide HCl 2 Mg Capsule, 2 MG PO UD PRN for DIARRHEA, (Reported) Meclizine HCl 25 Mg Tablet, 50 MG PO Q6H PRN for DIZZINESS, (Reported) Melatonin 5 Mg Tablet, 5 MG PO HS PRN for RESTLESSNESS, (Reported) Montelukast Sodium 10 Mg Tablet, 10 MG PO DAILY, (Reported) Potassium Chloride 20 Meq Tablet.er, 20 MEQ PO DAILY, (Reported) Sennosides/Docusate Sodium 1 Each Tablet, 1 TAB PO BID, (Reported) [Instaflex] , 1 TAB PO DAILY, (Reported) Past Pyjpppv-Bzccff-Molmlr Hx Past Med/Social Hx: Reviewed Nursing Past Med/Soc Hx, Reviewed and Corrections made Patient Social History Alcohol Use: Denies Use Recreational Drug Use: No Smoking Status: Former Smoker Type Used: Cigarettes Former Smoker, Quit: Aug 27, 2004 2nd Hand Smoke Exposure: No Recent Foreign Travel: No Contact w/Someone Who Travel: No Recent Infectious Disease Expo: No Recent Hopitalizations: No Immunizations Up To Date Tetanus Booster (TDap): Unknown Date of Pneumonia Vaccine: Sep 17, 2015 Date of Influenza Vaccine: Jul 19, 2019 Seasonal Allergies Seasonal Allergies: No Past Medical History Surgeries: Yes (CARDIAC CATH X 3--STENTS X 4) Cardiac, Coronary Stent, Gallbladder, Tubal Ligation Respiratory: Yes Pneumonia, COPD Currently Using CPAP: No Currently Using BIPAP: No Cardiac: Yes (CHF; CARDIAC CATHS X 3 WITH STENTS X 4) Atrial Fibrillation, Coronary Artery Disease, High Cholesterol, Hypertension 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: No 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 ) Loss of Vision: Denies Cancer: No Psychosocial: Yes Anxiety, Depression Integumentary: No Blood Disorders: No Adverse Reaction/Blood Tranf: No Family Medical History Cardiovascular disease 19 MOTHER Diabetes mellitus 19 MOTHER Hypertension 19 MOTHER No Pertinent Family Hx LONG HISTORY OF NON-COMPLIANCE Review of Systems Time Seen by Provider: 06:25 Sepsis Event Evaluation Height, Weight, BMI Height: 5'4.00" Weight: 170lbs. 0oz. 77.375146lx; 30.00 BMI Method:Stated Exam Exam Vital Signs Date Time Temp Pulse Resp B/P (MAP) Pulse Ox O2 Delivery O2 Flow Rate FiO2 05/02/20 04:00 100 Nasal Cannula 2.00 05/02/20 03:41 36.2 05/02/20 03:00 82 28 169/118 (135) 100 Nasal Cannula 2.00 05/02/20 02:00 93 14 146/93 (110) 100 Nasal Cannula 2.00 05/02/20 01:00 90 30 147/75 (99) 100 Nasal Cannula 2.00 05/02/20 01:00 90 05/02/20 00:30 36.1 7/16/20 00:09 110 20 164/125 (138) 100 Nasal Cannula 2.00 05/02/20 00:00 110 22 162/122 (135) 91 Nasal Cannula 2.00 05/02/20 00:00 100 Nasal Cannula 2.00 05/01/20 23:00 121 23 160/132 (141) 100 Nasal Cannula 2.00 05/01/20 22:00 117 26 178/117 (137) 100 Nasal Cannula 2.00 05/01/20 21:00 97 15 163/139 (147) 100 Nasal Cannula 2.00 05/01/20 20:00 100 Nasal Cannula 2.00 05/01/20 20:00 89 33 172/115 (134) 100 Nasal Cannula 2.00 05/01/20 19:39 125 27 161/125 (137) 100 Nasal Cannula 2.00 05/01/20 19:19 36.1 05/01/20 19:00 98 05/01/20 19:00 98 22 179/129 (146) 100 Nasal Cannula 2.00 05/01/20 18:00 95 19 148/106 (120) 100 Nasal Cannula 2.00 05/01/20 17:00 108 19 134/108 (117) 100 Nasal Cannula 2.00 05/01/20 16:32 100 Nasal Cannula 2.00 05/01/20 16:00 89 19 158/113 (128) 100 Nasal Cannula 2.00 05/01/20 16:00 36.9 05/01/20 16:00 100 Nasal Cannula 2.00 05/01/20 15:00 94 40 144/95 (111) 100 Nasal Cannula 2.00 05/01/20 13:45 87 19 146/105 (119) 95 Nasal Cannula 2.00 05/01/20 13:41 97 05/01/20 13:30 36.6 103 19 170/104 (129) 97 Nasal Cannula 2.00 05/01/20 13:27 36.5 05/01/20 11:00 36.2 90 20 171/109 (129) 96 Nasal Cannula 2.00 05/01/20 10:47 96 Nasal Cannula 2.00 I & O 05/02/20 07:00 Intake Total 0 ml Output Total 1835 ml Balance -1835 ml Height & Weight Height: 5'4.00" Weight: 170lbs. 0oz. 77.594830kq; 30.00 BMI Method:Stated General Appearance: No Apparent Distress, WD/WN, Chronically ill HEENT: PERRL/EOMI, Normal ENT Inspection, Pharynx Normal, Moist Mucous Membranes Neck: Full Range of Motion, Normal Inspection, Non Tender Respiratory: Chest Non Tender, Lungs Clear, Normal Breath Sounds, No Accessory Muscle Use, No Respiratory Distress, Decreased Breath Sounds Cardiovascular: No Edema, No Gallop, No JVD, No Murmur, Normal Peripheral Pulses, Irregularly Irregular Capillary Refill: Less Than 3 Seconds Gastrointestinal: normal bowel sounds, non tender, soft Extremity: Normal Capillary Refill, Normal Inspection, Normal Range of Motion, Non Tender, No Calf Tenderness, No Pedal Edema Neurologic/Psychiatric: Alert, No Motor/Sensory Deficits, Abnormal thermocouple tester II-XII (right sided gaze), Aphasia, Depressed Affect, Motor Weakness (right arm and right leg) Skin: Normal Color, Warm/Dry Lymphatic: No Adenopathy Results Lab Laboratory Tests 05/01/20 11:28 05/02/20 03:05 Assessment/Plan Assessment/Plan 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
--- NOTE | 2020-05-02 08:21 | NUR ---
ADJUSTED ENOXAPARIN DOSE TO 60MG SQ BID DUE TO WEIGHT UPDATED TO 61KG.
--- NOTE | 2020-05-02 08:33 | Diagnostic Imaging Report ---
Indication: Shortness of breath Portable chest 4:25 AM Heart size and pulmonary vascularity are within normal limits. Lungs are clear. There are no effusions or pneumothoraces. IMPRESSION: Heart size upper limits of normal. There is been interval improvement of the pulmonary vascular congestion since the previous day. Dictated by: Dictated on workstation # [id number]
--- NOTE | 2020-05-02 09:15 | NUR ---
This nurse attempted to call at [phone]. [phone] this nurse spoke with on ICU floor, I notified him of patients elevated b/p. Order received to start patients home medication of cardizem 240mg. I spoke with about patients elevated b/p as well, verbal order received from to restart patients home eliquis. Speech therapy was called prior to the administration of cardizem, I asked speech therapy to please do a swallow evaluation on patient. Speech therapy said to me that she recommends the patient to be on a dysphagia 1 diet with nectar thick liquids. I contacted updating her on speech therapy's recommendation, this nurse received a telephone order from to place a dysphagia 1 with nectar thick liquids diet order. Will continue to closely monitor.
--- NOTE | 2020-05-02 09:20 | Progress Note - Hospitalist ---
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 Lee just arrived in ICU9 after arriving in ER 05/01 with aphasia and R sided weakness. Last known well 9 pm last night before she went to bed, was awoken by her after she did not wake at her typical time, and was found to be nonverbal with R sided weakness. Daughter reports that she missed about 3 days of eliquis prior to today. She has a medical history of CHF and afib, with multiple hospitalizations for each since 2018. She also has a history of COPD, CAD w/ stents, hypercholesterolemia, hypertension, dementia, GERD, rheumatoid arthritis, osteoarthritis, anxiety, and depression. Neuro Exam: Ms. Lee was somnolent, falling asleep frequently during exam, and unable to change her position. Appeared to be aware of her current condition. Cranial Nerves: - II - pupils equal and reactive to light bilaterally. - III/IV/ - difficulty maintaining focus to track, eyes moved symmetrically. Showed full superior and inferior movement on left, some rightward gaze, no superior and inferior gaze demonstrated on right. - V - unable to indicate whether she had sensation, did open eyes to palpation of face in superior trigeminal distribution - VII - R sided droop when asked to smile, slight motion on left when asked to smile. - VIII - able to follow verbal commands when standing on either side of her - IX, X - palate elevates symmetrically - XI - was able to turn head towards those speaking to her, kept head turned towards left mostly. Did not demonstrate any effort to turn head against hand when requested - XII - tongue midline, did not demonstrate ability to stick out tongue when requested Motor: 4+ hand squeez on L, 1+ on R. 4+ elbow flexion on L, 0 on R. Did not demonstrate ability to flex or extend wrists, abduct shoulders bilaterally. Able to elevate L arm for several seconds, no ability to maintain R arm elevation. 4+ L ankle flexion and extension, 3+ R ankle flexion, 2+ R ankle extension Able to elevate L leg for several seconds, able to maintain R leg elevation briefly before slowly dropping leg. Reflexes: Unable to change position to properly evaluate reflexes. Able to feel twitch with palpation of patellar and biceps reflex. Sensation: Unable to communicate about her sensation. Did open eyes when her feet are touched bilaterally. Coordination: Did not display ability to lift either arm for [id number]-[id number] test when requested. Assessment: R sided paresis. Based on history of afib without eliquis, R sided weakness greater in R UE, as well as R sided facial droop and potential R sided visual field defect or neglect, and aphasia, suspicious for L sided cardioembolic occlusion within distribution of middle cerebral artery. Somnolence, generalized weakness. Hx of Afib, recently missed doses of eliquis for around 3 days CHF hypercholesterolemia hypertension dementia [MRI Impression: 1. Focus of acute/subacute ischemia involving the left insular cortex and left rushing radiata. No associated hemorrhage or mass effect. 2. Chronic microvascular disease. 3. Generalized parenchymal volume loss.] Verification and Attestation Supervisory-Addendum Brief BALDEMAR MARTELL MED STUDENT May 01, 2020 13:58 Subjective/Events-last exam Ms. Lee had limited ability to communicate, sounded like she said 'hi' when I introduced myself, but afterward gave no indication of a response to yes or no questions. Unable to obtain a ROS. She was able to squeeze both hands, 4+ on L and 2+ on R, R side improved from yesterday. Improved R elbow flexion. She was able to lift both legs, flex both hips and knees. Fell asleep less during exam compared to yesterday. Objective Exam Vital Signs Vital Signs Date Time Temp Pulse Resp B/P (MAP) Pulse Ox O2 Delivery O2 Flow Rate FiO2 05/02/20 11:00 97 19 150/99 (116) 99 Nasal Cannula 1.00 05/02/20 08:00 36.3 Capillary Refill : Less Than 3 Seconds General Appearance: WD/WN, Chronically ill HEENT: No Pale Conjunctivae (L), No Pale Conjunctivae (R), No Scleral Icterus (L), No Scleral Icterus (R) Neck: Normal Inspection, Supple; No Carotid Bruit Respiratory: Lungs Clear, No Accessory Muscle Use, No Respiratory Distress, Other (did not take deep breaths when requested) Cardiovascular: No Murmur, Normal Peripheral Pulses, Tachycardia Extremity: Pedal Edema (legs wrapped) Neurologic/Psychiatric: Alert, Aphasia (attempted to speak several times), Facial Droop (R sided), Motor Weakness, Other (somnolent, improved compared to yesterday) Skin: Normal Color, Warm/Dry Results/Procedures Lab Laboratory Tests 05/02/20 03:05 Patient resulted labs reviewed. 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 HTN AF Oropharyngeal Dysphagia Recent hip fracture Debility COPD h/o delirium severe requiring NH placement for months just recently DC home 4 weeks ago Dementia Hypercholesterolemia Plan: Echo pending Dysphagia I diet Continue Lovenox Start aspirin Continue diltiazem PT, OT, Speech Therapy Clinical Quality Measures DVT/VTE Risk/Contraindication: Risk Factor Score Per Nursin RFS Level Per Nursing on Admit: 4+=Very High Stroke: Date of last known well: May 01, 2020 Time of last known well: 11:07 Symptoms onset unknown: Yes TERESE NEAL DO 05/02/20 1247: Subjective Subjective/Events-last exam Pt actually responding today and able to talk a little bit Able to swallow dysphagia-2 diet so will start that and try to give her her oral meds of Eliquis and Verapamil because she does have AFIB with RVR BP much more stable Will have therapy evaluate her and go to inpatient rehab tomorrow Maintained with catheter Lovenox discontinued since Eliquis will restart Able to move her right arm just a little bit today Review of Systems General: Fatigue, Malaise Objective Exam General Appearance: No Apparent Distress, WD/WN, Chronically ill Respiratory: Chest Non Tender, Lungs Clear, Normal Breath Sounds, No Accessory Muscle Use, No Respiratory Distress Cardiovascular: No Edema, No Gallop, No JVD, No Murmur, Normal Peripheral Pulses, Irregularly Irregular Neurologic/Psychiatric: Alert, Aphasia (attempted to speak several times), Motor Weakness Assessment/Plan Assessment and Plan Assess & Plan/Chief Complaint Plan: ICU PO meds with DYS2 diet IRF tomorrow Supervisory-Addendum Brief Verification & Attestation Participated in pt care: history, MDM, physical Personally performed: exam, history, MDM, supervision of care Care discussed with: Medical Student Procedures: n/a Results interpretation: Verified all documentation Verification and Attestation of Medical Student E/M Service A medical student performed and documented this service in my presence. I revi ewed and verified all information documented by the medical student and made modifications to such information, when appropriate. I personally performed the physical exam and medical decision making. Terese Neal, May 02, 2020,20:53 BALDEMAR MARTELL MED STUDENT May 02, 2020 09:20 TERESE NEAL DO May 02, 2020 12:47
[2020-05-02] MEDS ORDERED: POTA10TA PO (10:06)
[2020-05-02] MEDS ORDERED: LEVO50TA6 PO (10:06)
[2020-05-02] MEDS ORDERED: FURO20TA4 PO (10:06)
[2020-05-02] MEDS ORDERED: FLAX100031 PO (10:08)
[2020-05-02] MEDS ORDERED: INSTAFLEX PO (10:08)
[2020-05-02] MEDS ORDERED: ASPI-999 PO (10:08)
--- NOTE | 2020-05-02 10:17 | Physical Therapy Daily Note ---
PT Daily Note-Current Subjective Patient does respond by blinking and follow direction with exercises. Mental Status Patient Orientation: Listless Attachments: Oxygen, Arana Catheter Transfers SCALE: Activities may be completed with or without assistive devices. 9-Qvjzqphnxo-dwzjjdz completes the activity by him/herself with no assistance from a helper. 5-Set-up or Clean-up Assistance-helper sets up or cleans up; patient completes activity. [place] assists only prior to or following the activity. 4-Supervision or Touching Assistance-helper provides verbal cues and/or touching/steadying and/or contact guard assistance as patient completes activity. Assistance may be provided throughout the activity or intermittently. 3-Partial/Moderate Assistance-helper does LESS THAN HALF the effort. [place] lifts, holds or supports trunk or limbs, but provides less than half the effort. 2-Substantial/Maximal Assistance-helper does MORE THAN HALF the effort. [place] lifts or holds trunk or limbs and provides more than half the effort. 2-Ydzvqysvk-talmxd does ALL the effort. Patient does none of the effort to complete the activity. Or, the assistance of 2 or more helpers is required for the patient to complete the activity. If activity was not attempted, code reason: 7-Patient Refused. 9-Not Applicable-not attempted and the patient did not perform the activity before the current illness, exacerbation or injury. 10-Not Attempted due to Environmental Limitations-(lack of equipment, weather restraints, etc.). 88-Not Attempted due to Medical Conditions or Safety Concerns. Roll Left & Right (QC): 1 Sit to Lying (QC): 1 Lying to Sitting/Side of Bed(Q: 1 Patient sat EOB CGA for safety x 8 min Weight Bearing Right Lower Extremity: Right Weight Bearing/Tolerated Left Lower Extremity: Left Weight Bearing/Tolerated Exercises Supine Ex: Ankle pumps, Heel Slides, Straight leg raise Supine Reps: 12 (AAROM with patient able to initiate movement when asked) Seated Therapy Exercises: Ankle pumps, Long arc quads Seated Reps: 12 (AAROM) Assessment Due to elevated BP and HR and decreased SAO2 with activity, patient returned to supine per RN request and not transferred to recliner. PT to increase activity as patient becomes more medically stable and able to tolerate activity. PT Coding Manager Goals Assisted Goals PT Assisted Goals Time Frame: May 08, 2020 Roll Left & Right (QC): 2 Sit to Lying (QC): 2 Lying-Sitting on Side/Bed(QC): 2 Sit to Stand (QC): 2 Chair/Kek-pl-Nzoui Xfer(QC): 2 PT Plan Treatment/Plan Treatment Plan: Continue Plan of Care Treatment Plan: Bed Mobility, Education, Functional Activity Rex, Functional Strength, Gait, Safety, Therapeutic Exercise, Transfers Treatment Duration: May 08, 2020 Frequency: 6 times per week Estimated Hrs Per Day: .25 hour per day Patient and/or Family Agrees t: Yes Time/GCodes Time In: 931 Time Out: 955 Total Billed Treatment Time: 24 Total Billed Treatment 1 visit EX x 2 24 min MERT KASPER PT May 02, 2020 10:17
--- NOTE | 2020-05-02 10:26 | NUR ---
UNABLE TO COMMUNICATE WITH THE PT AT THIS TIME. THERE IS A MED LIST ON THE PATIENTS FILE- I USED THAT AND WENT THRU THE EXT MED HISTORY AND ALSO SPOKE WITH THE PATIENTS (TONY) TO ENTER THE MED REC HYDROXYZINE 10MG- THIS IS LISTED ON THE MED LIST AND SAYS PRN- IT WAS LAST FILLED ON 03-12-2020 #90 AND WHEN I SPOKE WITH THE TONY HE SAYS THAT HE THINKS SHE IS STILL TAKING. I DID INCLUDE IT ON THE MED REC WITH THE LAST FILL DATE INCLUDED IN THE NOTES SYMBICORT AND PROAIR ARE ON THE MED LIST BUT WHEN I CALLED [facility] THEY HAD NEVER FILLED EITHER AND TONY INDICATED SHE WASNT USING ANY INHALERS ALL OTHER MEDICATIONS ON THE MED LIST ARE ON THE EXT MED HISTORY AND I WENT OVER THEM WITH TONY OTC MEDS: INSTAFLEX FLAXSEED TYLENOL ASPIRIN 81 WHEN I AM ABLE TO SPEAK/COMMUNICATE WITH THE PT I WILL UPDATE THE MED REC/NOTES NEEDED
[2020-05-02] MEDS ORDERED: HYDR-3584 PO (10:30)
--- NOTE | 2020-05-02 10:53 | ST Dysphagia Evaluation ---
Speech Evaluation-General Medical Diagnosis CVA Onset Date: May 01, 2020 Therapy Diagnosis Therapy Diagnosis: Oropharyngeal Dysphagia Precautions Precautions: Aspiration Referral Referring Physician: Dr. Verde Medical History Pertinent Medical History: Atrial Fib, Arthritis, CAD, COPD, Dementia, HTN, [place], Renal Insufficiency, Rheumatoid Arthritis Reviewed History: Yes Speech PLF/Current-Dysphagia Prior Level of Function Patient has a significant medical history so that she is dependent for assistance with her daily needs. Subjective Patient was cooperative with the Bedside Dysphagia Evaluation. Cognitive Status Patient Orientation: Unable to Assess, Non-Verbal/Aphasic Oral Motor Skills Dentition: Natural Ability to Follow Directions: Fair Patient was NPO pending BDE. Oral Expression Ability: Unable Secondary to new onset CVA Oral-Facial Assessment Lingual Protrusion: Abnormal Lingual ROM: Abnormal Lingual Strength: Abnormal Pharynx Velopharyngeal Move.: Weak on Right Volitional Dry Swallow: Yes Voluntary Cough: Yes Following thin liquids Dysphagia Evaluation Consistencies Presented: Thin Liquid, [place] Thick Liquid, Pureed Oral Phase: Unable to Suck Straw, Reduced Oral Transit Decreased control of thin liquids, patient does not exhibit oral control to suck a straw. Pharyngeal Phase: Decreased A/P Bolus Transit, Delayed Laryngeal Elevation, Swallows Too Rapidly Patient's swallow initiation of thin liquids noted. Patient cough/clear with presentation of thin. Controlled swallow for nectar consistency and puree. Swallowing Precautions: Alternate Liquids/Solids, Decreased Bolus 1/2 Tsp, Liquids from Spoon, No Straw, Small Bites and Sips, Sitting Upright 90 Degrees, Sitting 90 Degrees 30 Post Intake, Right Tongue Sweep Dysphagia Evaluation Summary Patient was evaluated per physician order for swallow function. Patient completed the Bedside Dysphagia Evaluation with the ST at bedside. Patient was given thin liquids at 1/2 tsp x2 with delayed cough/clear post swallow. Patient was given nectar consistency liquids at 1/2 tsp x3 without difficulty. Patient is unable to suck from a straw. Patient was also given puree at 1/2 tsp x2 without difficulty for swallow. Patient was noted to have mild oral residue following puree. Repeat presentation of nectar consistency liquids cleared oral residue. Patient is recommended for Dysphagia I and nectar consistency liquids. This information was provided for her nurse, Kristin and written on the white board in her room. Barriers to Learning New onset CVA, aphasic, nonverbal Speech Short Term Goals Short Term Goals Short Term Goals 1) Patient will tolerate least restrictive diet level without s/s of aspiration at 90%. 2) Patient/caregiver will utilize compensatory strategies for safe oral intake at 90% or greater with minimal cues. 3) Patient will respond to yes/no questions with nods/gestures at 80% with minimal cues. 4) Patient will respond appropriately to questions presented with pictures at 80% with minimal cues. Speech Chcf Goals Clinical Services Consultant Goals Patient will maintain adequate nutrition/hydration via safe effective swallow function. Patient will express her needs/wants via y/n answers and/or gestures. Speech-Plan Patient/Family Goals Patient/Family Goals: Patient's plans are unknown at this time. Treatment Plan Speech Therapy Treatment Plan: Continue Plan of Care Treatment Duration: May 10, 2020 Frequency: 5 times per week Estimated Hrs Per Day: .25 hour per day Rehab Potential: Guarded Barriers to Learning: New onset CVA, aphasic, nonverbal Pt/Family Agrees to Plan: Yes Safety Risks/Education Teaching Recipient: Patient Teaching Methods: Demonstration, Discussion Response to Teaching: Reinforcement Needed Education Topics Provided: Safety of oral intake, diet level Time Speech Therapy Time In: 10:30 Speech Therapy Time Out: 10:55 Total Billed Time: 25 Billed Treatment Time 1, MARQUISE KHAN [address] ST May 02, 2020 10:53
--- NOTE | 2020-05-02 11:32 | Occupational Therapy Eval ---
OT Evaluation-General/PLF Medical Diagnosis Admission Date May 01, 2020 at 12:43 Medical Diagnosis: CVA Onset Date: May 01, 2020 Therapy Diagnosis Therapy Diagnosis: Right sided weakness Height/Weight Height (Feet): 5 Height (Inches): 4.00 Weight (Pounds): 170 Weight (Ounces): 0 Precautions Precautions/Isolations: Fall Prevention, Standard Precautions Weight Bear Status Weight Bearing Restriction: Weight Bearing/Tolerated Referral Physician: Terese Verde DO Referral Reason: Activity Tolerance, Self Care, Evaluation/Treatment, Strengthening/ROM Medical History Pertinent Medical History: Atrial Fib, Arthritis, CAD, COPD, Dementia, HTN, [place], Renal Insufficiency, Rheumatoid Arthritis Additional Medical History Cardiac cath x 3, stents x 4 Current History Spouse noted that pt. aphasic and not moving her right side when he attempted to wake her up the morning of 05-01-20. Reviewed History: Yes Social History Pt. non-verbal. Unable to determine home set up. Family not present. ADL-Prior Level of Function SCALE: Activities may be completed with or without assistive devices. 0-Ihtlywamfq-uqwrftx completes the activity by him/herself with no assistance fr om a helper. 5-Set-up or Clean-up Assistance-helper sets up or cleans up; patient completes activity. [place] assists only prior to or following the activity. 4-Supervision or Touching Assistance-helper provides verbal cues and/or touching/steadying and/or contact guard assistance as patient completes activity. Assistance may be provided throughout the activity or intermittently. 3-Partial/Moderate Assistance-helper does LESS THAN HALF the effort. [place] lifts, holds or supports trunk or limbs, but provides less than half the effort. 2-Substantial/Maximal Assistance-helper does MORE THAN HALF the effort. [place] lifts or holds trunk or limbs and provides more than half the effort. 6-Bhiaherjp-tmcmio does ALL the effort. Patient does none of the effort to complete the activity. Or, the assistance of 2 or more helpers is required for the patient to complete the activity. If activity was not attempted, code reason: 7-Patient Refused. 9-Not Applicable-not attempted and the patient did not perform the activity before the current illness, exacerbation or injury. 10-Not Attempted due to Environmental Limitations-(lack of equipment, weather restraints, etc.). 88-Not Attempted due to Medical Conditions or Safety Concerns. ADL PLOF Comments Pt. independent with daily skills. Self Care: Independent Functional Cognition: Unknown OT Current Status Subjective Pt. does not indicate pain. Appearance Pt. in bed when therapy enters room. Pt. is able to very quietly mouth words of "I need some water." Pt. unable to have water at this time. Pt. does not answer any other questions or verbalize throughout treatment. Mental Status/Objective Patient Orientation: Unable to Assess Attachments: Arana Catheter, IV Current Pt. is able to slightly "wiggle" fingers of right hand. Pt. able to move left hand with cues, but this is not consistent. ADL-Treatment Pt's BP at 161/117. OT checked with nursing before working with pt. Nursing agrees for pt. to sit on side of bed, but not to transfer to chair. Noted that pt's head is turned toward left side. She is awake in bed but requires cues to participate. She is able to follow some cues. Pt. transfers supine-sit with max assist. Required CGA/Min assist at times to maintain sitting balance on EOB. Right hand was placed on bed for weight bearing. Pt. encouraged to turn head to right side. She is able to do this at one time, but turns head back toward left. Significant right sided neglect noted. Pt. is handed a warm washcloth in left hand, and encouraged to wash her face. Pt. does wipe at face but does not wash all of it. Max assist noted for sit-supine. Dependent assist x 2 for bed mobility and positioning. Rails placed and bed alarm on. Pt. has call light. All needs are met. Education OT Patient Education: Correct positioning, Modified ADL techniques, Progress toward Goal/Update tx plan, Purpose of tx/functional activities, Reviewed precautions, Rehab process, Transfer techniques Teaching Recipient: Patient Teaching Methods: Demonstration, Discussion Response to Teaching: Unable to Return Demonstration, Unable to Comprehend, R einforcement Needed OT Short Term Goals Short Term Goals Time Frame: May 16, 2020 Eatin Oral hygiene: 3 Toileting hygiene: 3 Shower/bathe self: 3 Upper body dressin Lower body dressin Putting on/taking off footwear: 3 OT Correction Goals It Application Development Manager Goals Time Frame: May 30, 2020 Eating (QC): 4 Oral Hygiene (QC): 4 Toileting Hygiene (QC): 3 Shower/Bathe Self (QC): 3 Upper Body Dressing (QC): 4 Lower Body Dressing (QC): 4 On/Off Footwear (QC): 3 Additional Goals: 1-Demonstrate ADL Tasks, 2-Verbalize Understanding, 3- ImproveStrength/Rex 1=Demonstrate adherence to instructed precautions during ADL tasks. 2=Patient will verbalize/demonstrate understanding of assistive devices/modifications for ADL. 3=Patient will improve strength/tolerance for activity to enable patient to perform ADL's. OT Education/Plan Problem List/Assessment Assessment: Decreased Activ Tolerance, Decreased Safety Aware, Decreased UE Strength, Dependent Transfers, Impaired Bed Mobility, Impaired Cognition, Impaired Coordination, Impaired Funct Balance, Impaired I ADL's, Impaired Self- Care Skills, Restricted Funct UE ROM, Visual-Perceptual Deficit Discharge Recommendations Plan/Recommendations: Continue POC Therapy Discharge Recommendati: 24 Hour Supervision, Post Acute OT Comment Discharge location and equipment needs to be determined. Treatment Plan/Plan of Care Treatment,Training & Education: Yes Patient would benefit from OT for education, treatment and training to promote independence in ADL's, mobility, safety and/or upper extremity function for ADL's. Plan of Care: ADL Retraining, Functional Mobility, UE Funct Exercise/Act, UE Neuromus Re-Ed/Coord, Visual/Perceptual Retrain Treatment Duration: May 30, 2020 Frequency: 5 times per week Estimated Hrs Per Day: .5 hour per day Agreement: Yes Rehab Potential: Fair Time/GCodes Start Time: 08:50 Stop Time: 09:15 Total Time Billed (hr/min): 25 Billed Treatment Time 1, EVH x 10minutes, FA x 15minutes RILEY DUBON OT May 02, 2020 11:32
--- NOTE | 2020-05-02 12:05 | Progress Note ---
BALDEMAR MARTELL MED STUDENT 05/02/20 1205: Progress Note History: Ms. Lee arrived in ICU9 after arriving in ER 05/01 with aphasia and R sided weakness. Last known well 9 pm last night before she went to bed, was awoken by her after she did not wake at her typical time, and was found to be nonverbal with R sided weakness. Daughter reports that she missed about 3 days of eliquis prior to today. She has a medical history of CHF and afib, with multiple hospitalizations for each since 2018. She also has a history of COPD, CAD w/ stents, hypercholesterolemia, hypertension, dementia, GERD, rheumatoid arthritis, osteoarthritis, anxiety, and depression. Diagnosis is CVA with right sided weakness and aphasia. 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 When seen today, she was less somnolent, and attempted to speak twice, but was still mostly nonverbal. She seemed to have difficulty focusing during the neuro exam. Neuro Exam: Cranial Nerves: - II - pupils equal and reactive to light bilaterally. - III/IV/ - difficulty maintaining focus to track, eyes moved symmetrically. Showed full superior and inferior movement on left. Slightly improved rightward gaze, as well as superior and inferior gaze on the right, but still less motion compared to the left. - V - unable to indicate whether she had sensation, this is unchanged - VII - Did not demonstrate any motion when asked to smile, frown, close eyes, or raise eyebrows, but did change facial expressions when attempting to speak. R sided droop persists. - VIII - able to follow verbal commands when standing on either side of her, th is is unchanged - IX, X - palate elevates symmetrically, this is unchanged - XI - 1+ turning head to L, 0+ to R, shoulder shrug 0+ bilaterally, may have been due to focus. - XII - tongue midline, did not demonstrate ability to stick out tongue when requested, this is unchanged Motor: 4+ hand squeeze on L, 2+ on R. R improved from 1+ yesterday. Demonstrated 4+ elbow flexion on L, 2+ on R. Did not demonstrate ability to flex or extend wrists, abduct shoulders bilaterally. This is unchanged. Able to elevate L arm for several seconds, no ability to maintain R arm elevation. This is unchanged. Did not demonstrate ankle flexion or extension today, likely due to focus. Yesterday demonstrated 4+ L ankle flexion and extension, 3+ R ankle flexion, 2+ R ankle extension Able to flex both of her hips and knees in bed, but was not able to do so when requested for strength assessment. Able to elevate L leg for several seconds, able to maintain R leg elevation briefly before slowly dropping leg. R leg elevation improved compared to yesterday. Reflexes: Unable to change position to properly evaluate reflexes. Able to feel twitch with palpation of patellar and biceps reflex. This is unchanged. Sensation: Unable to communicate about her sensation. Coordination: Able to perform yxcivx-yw-mioy test with L hand very slowly with mild dysmetria TERESE NEAL DO 05/02/202053: Supervisory-Addendum Brief Verification & Attestation Participated in pt care: history, MDM, physical Personally performed: exam, history, MDM, supervision of care Care discussed with: Medical Student Procedures: n/a Results interpretation: Verified all documentation Verification and Attestation of Medical Student E/M Service A medical student performed and documented this service in my presence. I reviewed and verified all information documented by the medical student and made modifications to such information, when appropriate. I personally performed the physical exam and medical decision making. Terese Neal, May 02, 2020,20:54 BALDEMAR MARTELL MED STUDENT May 02, 2020 12:05 TERESE NEAL DO May 02, 2020 20:54
--- NOTE | 2020-05-02 14:29 | Physician Query Clarification ---
PQ-CHF Specificity Admission Date: May 01, 2020 at 12:43 Discharge Date: The medical record reflects the following clinical scenario: Dr. Verde, History/Risk Factors: CVA with right hemiplegia and aphasia Hypertension CHF history Clinical Findings: Chest xray 05/01 impression: Congestive heart failure. BNP 425.4 Treatment: Lasix injection 40 mg lasix. Question: Can you further specify the acuity &/or type of CHF per the clinical indicators above? Please document a response in the Progress Notes or Discharge Summary. 1. Acuity: Acute, Chronic or Acute on Chronic 2. Type: Systolic, Diastolic or Systolic & Diastolic 3. Unspecified: CHF cannot be further specified regarding type or acuity 4. Other, with explanation of clinical findings 5. Clinically undetermined, no explanation for clinical findings PHYSICIAN RESPONSE Acuity: Chronic Type: Diastolic Please remember a lack of response to the above will prompt a phone page by CDI/Coding staff. In responding to this query, please exercise your independent professional judgment. The purpose of this communication is to more accurately reflect the complexity of your patients condition. The fact that a question is asked does not imply that any particular answer is desired or expected. Thank you for your timely response to this clarification. Requestors name: Reba Jian [facility] Phone # ext [phone] or [phone] THIS PHYSICIAN QUERY FORM IS A PERMANENT PART OF THE MEDICAL RECORD REBA JAIN May 02, 2020 14:29 JEROME VERDE DO May 02, 2020 21:05
--- NOTE | 2020-05-02 14:59 | NUR ---
CM/SS: Visited with pt and daughter as to plan for discharge Plan: Pt will be admitted to Inpatient Rehab on tomorrow per January, IRF Clinical Coordinator Summary: Daughter Karolyn is at the bedside giving pt water, as pt is coughing. Pt is alert, and only mumbles things to the daughter. This worker speaks to daughter upon entering the room, daughter does not say anything, worker speaks again, and daughter shares that she remembers this worker from pt's last hospital stay. When indicating we would be working on the plan for discharge, daughter shares "it is a little early to be thinking about that". This worker explains it is a process so will be checking back as to pt's progress. Daughter reports spouse of pt is ok, as well as he can be. He is home today. Daughter is given toothette to use to provide moisture to pts mouth. RN indicated daughter could use them. Daughter thanked this worker for it. This worker will follow up.
--- NOTE | 2020-05-02 15:36 | NUR ---
IRF Evaluation Determination: Approved Chart review complete and findings discussed with Dr. Verde. Anticipate admission, 05/03/20. Met with patient and daughter to discuss details of rehabilitation program. Daughter familiar with program as patient been on unit in the past. Patient awake for conversation but not contributing as she is aphasic. Daughter agreeable to admission and therapy regimen. Thank you for this referral.
--- NOTE | 2020-05-02 17:19 | Consultation-Cardiology ---
HPI-Cardiology Cardiology Consultation: Date of Consultation 05/02/20 Date of Admission Attending Physician Terese Verde DO Admitting Physician Terese Verde DO Consulting Physician Faby BERMUDEZ MD HPI: Time Seen by a Provider: 10:00 Chief Complaint: Acute stroke This is a 74-year-old lady with history of atrial fibrillation, congestive heart failure, dementia, CAD. She is on Eliquis. She presents with acute stroke. She has not been on Eliquis for the last 3 days. She is nonverbal. Smoking history and family history is unavailable. Review of Systems-Cardiology Review of Systems Constitutional: As described under HPI; No As described under HPI, No no symptoms reported, No chills, No fever, No lightheadedness Eyes: No As described under HPI, No no symptoms reported, No blindness, No blurred vision, No contact lenses, No drainage, No decreased acuity, No foreign body sensation, No pain, No vision change Ears/Nose/Throat: No As described under HPI, No no symptoms reported, No chronic hearing loss, No ear discharge, No ear pain, No nasal drainage, No ulcerations Respiratory: No no symptoms reported; As described under HPI; No As described under HPI, No cough, No orthopnea, No shortness of breath, No SOB with excertion Cardiovascular: No no symptoms reported; As described under HPI; No As described under HPI, No chest pain, No edema, No irregular heart rate, No lightheadedness, No palpitations Gastrointestinal: No no symptoms reported, No As described under HPI, No abdomen distended, No abdominal pain, No blood streaked bowels, No constipation, No diarrhea, No nausea, No vomiting, No stool coloration changes Genitourinary: No As described under HPI, No burning, No dysuria, No discharge, No frequency, No flank pain, No hematuria, No urgency : Yes : No Skin: No rash, No skin related problems, No ulcerations Psychiatric/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: As described under HPI; No anxiety, No depression, No seizure, No focal weakness, No syncope Hematologic: No bleeding abnormalities [id number]-Mrcdmh Hx Patient Social History Marrital Status: Employed/Student: retired Alcohol Use: Denies Use Recreational Drug Use: No Smoking Status: Former Smoker Former smoker/When Quit: Oct 11, 2004 Type Used: Cigarettes 2nd Hand Smoke Exposure: No Recent Foreign Travel: No Recent Infectious Disease Expo: No Hospitalization with Isolation: Denies Immunizations Up To Date Tetanus Booster (TDap): Unknown Date of Pneumonia Vaccine: Sep 17, 2015 Date of Influenza Vaccine: Jul 19, 2019 Past Medical History PMH As described under Assessment. Family Medical History Family Medical History: She reports her mother had coronary artery disease and hypertension. Family History: Cardiovascular disease 19 MOTHER Diabetes mellitus 19 MOTHER Hypertension 19 MOTHER Allergies and Home Medications Allergies Coded Allergies: Sulfa (Sulfonamide Antibiotics) (Verified Allergy, Unknown, 12/27/17) Home Medications Acetaminophen 650 Mg Tablet.er, 1,300 MG PO Q8H PRN for PAIN-MILD (1-4), (Reported) Apixaban 5 Mg Tablet, 5 MG PO BID, (Reported) Aspirin 81 Mg Tab.chew, 81 MG PO DAILY, (Reported) Atorvastatin Calcium 20 Mg Tablet, 20 MG PO HS, (Reported) Carvedilol 6.25 Mg Tablet, 6.25 MG PO BID, (Reported) Citalopram Hydrobromide 20 Mg Tablet, 20 MG PO HS, (Reported) Diltiazem HCl 240 Mg Cap.er.24h, 240 MG PO DAILY, (Reported) Flaxseed Oil 1,000 Mg Capsule, 1,000 MG PO DAILY, (Reported) Furosemide 20 Mg Tablet, 20 MG PO Q72H, (Reported) TAKE THE SAME DAY POTASSIUM Hydroxyzine HCl 10 Mg Tablet, 10 MG PO TID PRN for ANXIETY, (Reported) LAST FILLED 03-15-2020 #90 Ipratropium/Albuterol Sulfate 3 Ml Ampul.neb, 3 ML NEB QID PRN for SHORTNESS OF BREATH, (Reported) Levothyroxine Sodium 50 Mcg Tablet, 50 MCG PO DAILY, (Reported) Montelukast Sodium 10 Mg Tablet, 10 MG PO DAILY, (Reported) Potassium Chloride 10 Meq Tablet.er, 10 MEQ PO Q72H, (Reported) TAKES ON THE SAME DAY FUROSEMIDE [Instaflex] , 1 TAB PO DAILY, (Reported) Patient Home Medication List Home Medication List Reviewed: Yes Physical Exam-Cardiology Physical Exam Vital Signs/I&O Capillary Refill : Less Than 3 Seconds Constitutional: appears stated age; No apparent distress; well-developed, well- nourished HEENT: PERRL; No discharge; hearing is well preserved, oral hygience is good; No ulceration, No xanthelasmas are seen Neck: No carotid bruit; carotid pulses are 2 + bilaterally Respiratory: chest is bilaterally symmetric, lungs clear to auscultation Cardiovascular: irregularly irregular, S1 and S2 Gastrointestinal: soft, audible bowel sounds; No spleenomegaly Rectal: deferred Extremities: No clubbing, No cyanosis; no lower extremity edema bilateral; No significant edema Neurologic/Psychiatric: alert, motor weakness, other (Non-verbal.) Skin: normal color, warm/dry; No rash, No ulcerations Data Review Labs Microbiology 05/01/20 MRSA Screen - Final, Complete MRSA not isolated A/P-Cardiology Assessment/Admission Diagnosis acute stroke, Hypertension, Dementia, Coronary artery disease Chronic atrial fibrillation, Pulmonary hypertension Plan Recent acute stroke, will require inpatient rehabilitation. Was not a candidate for TPA due to Eliquis. Atrial fibrillation, chronic, rate controlled. Maintained on oral anticoagu lation. Continue to monitor. Continue Eliquis Coronary artery disease, history of multiple intervention a total of 4 stents, last cardiac catheterization was done by Dr. Hamilton Chronic Congestive heart failure, previous left ventricular systolic dysfuncti on, ejection fraction 40-45 percent per echocardiogram done in September 2019, has PA pressure of 45-50 mmHg, mitral and tricuspid regurgitation. Hypertension, monitor blood pressure Hyperlipidemia, managed by primary care physician Diabetes mellitus, followed and managed by primary care physician History of smoking. Quit in 2003. Thank you for your consultation. Please call me if you have any questions. Edwina Bermudez MD, FACP, FACC, FSCAI, FHRS, CCDS Interventional Cardiology Cardiac Electrophysiology Vascular Medicine and Endovascular Interventions Clinical Quality Measures DVT/VTE Risk/Contraindication: Risk Factor Score Per Nursin RFS Level Per Nursing on Admit: 4+=Very High Stroke: Date of last known well: May 01, 2020 Time of last known well: 11:07 Symptoms onset unknown: Yes Faby BERMUDEZ MD May 02, 2020 17:19
[2020-05-02] MEDS ORDERED: ENOXAPARIN 60 MG/0.6 ML (LOVENOX) SYR SC SCH (18:00)
[2020-05-02] MEDS: AA 4.25% W/LYTES IN D5W IV SOL 1,000 ML IV SCH (18:49)
[2020-05-02] MEDS: APIXABAN 5 MG (ELIQUIS) TABLET PO SCH (21:27)
[2020-05-03] VITALS (10 sets, daily range): BP systolic 121–155; BP diastolic 78–117
[2020-05-03 03:33] LABS: BASOPHILS # (AUTO) 0.1 10^3/uL (0.0-0.1); BASOPHILS % (AUTO) 0 % (0-10); EOSINOPHILS # (AUTO) 0.1 10^3/uL (0.0-0.3); EOSINOPHILS % (AUTO) 1 % (0-10); HEMATOCRIT 46 % (35-52); HEMOGLOBIN 14.8 G/DL (11.5-16.0); LYMPHOCYTES # (AUTO) 2.2 X 10^3 (1.0-4.0); LYMPHOCYTES % (AUTO) 20 % (12-44); MEAN CORPUSCULAR HEMOGLOBIN 29 PG (25-34); MEAN CORPUSCULAR HGB CONC 32 G/DL (32-36); MEAN CORPUSCULAR VOLUME 90 FL (80-99); MEAN PLATELET VOLUME 10.3 FL (7.4-10.4); MONOCYTES % (AUTO) 9 % (0-12); NEUTROPHILS # (AUTO) 7.8 X 10^3 (1.8-7.8); NEUTROPHILS % (AUTO) 70 % (42-75); PLATELET COUNT 290 10^3/uL (130-400); RED CELL DISTRIBUTION WIDTH 14.4 % (10.0-14.5); WHITE BLOOD COUNT 11.1 10^3/uL (4.3-11.0)
[2020-05-03 03:45] LABS: CHLORIDE 103 MMOL/L (98-107); POTASSIUM 3.9 MMOL/L (3.6-5.0); SODIUM 141 MMOL/L (135-145)
[2020-05-03 03:47] LABS: CALCIUM 9.7 MG/DL (8.5-10.1); GLUCOSE 120 MG/DL (70-105)
[2020-05-03 03:49] LABS: CARBON DIOXIDE 25 MMOL/L (21-32)
[2020-05-03 03:51] LABS: GFR ESTIMATED > 60; PHOSPHORUS 4.5 MG/DL (2.3-4.7)
[2020-05-03 03:52] LABS: BUN/CREATININE RATIO 34
[2020-05-03 03:53] LABS: MAGNESIUM 1.9 MG/DL (1.6-2.4)
--- NOTE | 2020-05-03 05:54 | Diagnostic Imaging Report ---
INDICATION: Follow-up dyspnea. COMPARISON: 05/02/2020 FINDINGS: Single frontal radiographic view of the chest was obtained and again demonstrates [id number] cardiomegaly and pulmonary vascular congestion. There is also mild diffuse prominence of the interstitium. Overall, appearance is stable compared to prior exam. There is no large effusion or pneumothorax. Osseous structures show no acute abnormalities. IMPRESSION: 1. Stable exam of the chest showing cardiomegaly with vascular congestion and interstitial pulmonary edema. Dictated by: Dictated on workstation # [id number]
[2020-05-03] MEDS ORDERED: POTASSIUM CL 10MEQ/50ML IVPB 50 ML IV SCH (06:00)
[2020-05-03] MEDS ORDERED: MAGNESIUM 1 GM/100 ML IVPB 100 ML IV SCH (06:00)
[2020-05-03] MEDS ORDERED: KCL 20 MEQ TAB (K-DUR) PO SCH (06:00)
[2020-05-03] MEDS: AA 4.25% W/LYTES IN D5W IV SOL 1,000 ML IV SCH (07:00)
--- NOTE | 2020-05-03 09:20 | Progress Note ---
BALDEMAR MARTELL MED STUDENT 05/03/20 0920: Progress Note Ms. Lee arrived in ER 05/01 with aphasia and R sided weakness. Last known well 9 pm last night before she went to bed, was awoken by her after she did not wake at her typical time, and was found to be nonverbal with R sided weakness. Daughter reports that she missed about 3 days of eliquis prior 05/01. She has a medical history of CHF and afib, with multiple hospitalizations for each since 2018. She also has a history of COPD, CAD w/ stents, hypercholesterolemia, hypertension, dementia, GERD, rheumatoid arthritis, osteoarthritis, anxiety, and depression. On neurological exam she displayed R sided paresis, worse in R arm than R leg, as well as somnolence. Since arriving she has been mostly nonverbal, but has attempted to speak on multiple occasions, usually 1-2 words that may or may not be intelligible. Has been hypertensive since admission, systolic pressure has been reduced significantly but diastolic remains consistently over 100. Has been consistently tachycardic. Swallow study indicated need for dysphagia 1 diet. When seen today, she has slightly improved somnolence, but continues to need to be addressed and redirected frequently to keep her eyes open and to follow requested directions. Has improved mobility of R side. Has 2+ R hand squeeze, was able to pull 2+ with R arm but not push, and was able to partially perform heel-aquino maneuver with both legs. Flexed R arm to attempt [id number]-bv-[id number] maneuver but was unable to perform with right arm, was slowly able to perform maneuver with L arm. Unable to hold R arm or leg elevated today, while able to hold L arm and leg elevated for 5 seconds or more. Able to shrug shoulders 3+ bilaterally. Continued R sided facial droop. Suspect some apparent debility on R is due to inability to focus for exam, for example, she was able to hold R leg elevated briefly yesterday and slowly lowered it on the day of admission, but did not demonstrate any ability to maintain tone when requested today, and she was able to partially perform rqio-pp-[id number] maneuver with R leg today. May be transferred to IRF. Hypertension has been better controlled, and she remains tachycardic with HR between 85-112. COPD has remained stable. She has displayed efforts to speak as well as definite improvement in strength and mobility of R side since admission. However, she continues to have somnolence and overall remains mostly aphasic and nonresponsive to questions about pain or sensation, and remains bedbound due to generalized weakness and R sided debility. TERESE NEAL DO 05/03/20 2219: Supervisory-Addendum Brief Verification & Attestation Participated in pt care: history, MDM, physical Personally performed: exam, history, MDM, supervision of care Care discussed with: Medical Student Procedures: n/a Results interpretation: Verified all documentation Verification and Attestation of Medical Student E/M Service A medical student performed and documented this service in my presence. I reviewed and verified all information documented by the medical student and made modifications to such information, when appropriate. I personally performed the physical exam and medical decision making. Terese Neal, May 03, 2020,22:19 BALDEMAR MARTELL MED STUDENT May 03, 2020 09:20 TERESE NEAL DO May 03, 2020 22:19
[2020-05-03] MEDS: APIXABAN 5 MG (ELIQUIS) TABLET PO SCH (09:23)
--- NOTE | 2020-05-03 10:02 | Discharge Summary ---
Diagnosis/Chief Complaint Date of Admission May 01, 2020 at 12:43 Date of Discharge Discharge Date: May 03, 2020 Discharge Diagnosis Catastrophic CVA with right sided weakness Partial aphasia Dysphagia COPD PAF HTN CAD RA O2 dependence Recent hip fracture Recent delirium requiring NHP Discharge Summary Discharge Physical Examination Allergies: Coded Allergies: Sulfa (Sulfonamide Antibiotics) (Verified Allergy, Unknown, 12/27/17) Vitals & I&Os Vital Signs Date Time Temp Pulse Resp B/P (MAP) Pulse Ox O2 Delivery O2 Flow Rate FiO2 05/03/20 09:23 Nasal Cannula 1.00 05/03/20 09:00 104 19 136/106 (116) 98 05/03/20 07:23 36.0 General Appearance: Alert, Cooperative Respiratory: Clear to Auscultation Cardiovascular: Regular Rate Neuro: Other (weakness right sided) Hospital Course Was the Problem List Reviewed?: Yes Ms. Lee arrived in ER 05/01 with aphasia and R sided weakness. Last known well 9 pm last night before she went to bed, was awoken by her after she did not wake at her typical time, and was found to be nonverbal with R sided weakness. Daughter reports that she missed about 3 days of eliquis prior 05/01. She has a medical history of CHF and afib, with multiple hospitalizations for each since 2018. She also has a history of COPD, CAD w/ stents, hypercholesterolemia, hypertension, dementia, GERD, rheumatoid arthritis, osteoarthritis, anxiety, and depression. On neurological exam she displayed R sided paresis, worse in R arm than R leg, as well as somnolence. Since arriving she has been mostly nonverbal, but has attempted to speak on multiple occasions, usually 1-2 words that may or may not be intelligible. Has been hypertensive since admission, systolic pressure has been reduced significantly but diastolic remains consistently over 100. Has been consistently tachycardic. Swallow study indicated need for dysphagia 1 diet. When seen today, she has slightly improved somnolence, but continues to need to be addressed and redirected frequently to keep her eyes open and to follow requested directions. Has improved mobility of R side. Has 2+ R hand squeeze, was able to pull 2+ with R arm but not push, and was able to partially perform heel-aquino maneuver with both legs. Flexed R arm to attempt qcxqfr-jn-qhbh maneuver but was unable to perform with right arm, was slowly able to perform maneuver with L arm. Unable to hold R arm or leg elevated today, while able to hold L arm and leg elevated for 5 seconds or more. Able to shrug shoulders 3+ bilaterally. Continued R sided facial droop. Suspect some apparent debility on R is due to inability to focus for exam, for example, she was able to hold R leg elevated briefly yesterday and slowly lowered it on the day of admission, but did not demonstrate any ability to maintain tone when requested today, and she was able to partially perform nbsp-pz-[id number] maneuver with R leg today. May be transferred to IRF. Hypertension has been better controlled, and she remains tachycardic with HR between 85-112. COPD has remained stable. She has displayed efforts to speak as well as definite improvement in strength and mobil ity of R side since admission. However, she continues to have somnolence and overall remains mostly aphasic and nonresponsive to questions about pain or sensation, and remains bedbound due to generalized weakness and R sided debility. BALDEMAR MARTELL MED STUDENT Labs (last 24 hrs) Laboratory Tests 05/01/20 10:55: Urine Color YELLOW, Urine Clarity CLEAR, Urine pH 8.5, Urine Specific [place] 1.010L, Urine Protein NEGATIVE, Urine Glucose (UA) NEGATIVE, Urine Ketones NEGA TIVE, Urine Nitrite NEGATIVE, Urine Bilirubin NEGATIVE, Urine Urobilinogen 0.2, Urine Leukocyte Esterase NEGATIVE, Urine RBC (Auto) 2+H, Urine RBC 5-10H, Urine WBC RARE, Urine Squamous Epithelial Cells RARE, Urine Crystals PRESENTH, Urine Amorphous Sediment FEW WALDEMAR PHOSPHATEH, Urine Bacteria TRACE, Urine Casts NONE, Urine Mucus NEGATIVE, Urine Culture Indicated NO 05/01/20 11:28: White Blood Count 10.2, Red Blood Count 4.83, Hemoglobin 14.3, Hematocrit 43, Mean Corpuscular Volume 89, Mean Corpuscular Hemoglobin 30, Mean Corpuscular Hemoglobin Concent 33, Red Cell Distribution Width 14.1, Platelet Count 266, Mean Platelet Volume 9.8, Neutrophils (%) (Auto) 77H, Lymphocytes (%) (Auto) 15, Monocytes (%) (Auto) 6, Eosinophils (%) (Auto) 2, Basophils (%) (Auto) 1, Neutrophils # (Auto) 7.9H, Lymphocytes # (Auto) 1.5, Monocytes # (Auto) 0.6, Eosinophils # (Auto) 0.2, Basophils # (Auto) 0.1, Prothrombin Time 13.8, INR Comment 1.0, Activated Partial Thromboplast Time 30, D-Dimer 1.57H, Sodium Level 140, Potassium Level 3.8, Chloride Level 103, Carbon Dioxide Level 26, Anion Gap 11, Blood Urea Nitrogen 13, Creatinine 0.76, Estimat Glomerular Filtration Rate > 60, BUN/Creatinine Ratio 17, Glucose Level 107H, Calcium Level 9.4, Corrected Calcium 9.6, Total Bilirubin 1.4H, Aspartate Amino Transf (AST/SGOT) 28, Alanine Aminotransferase (ALT/SGPT) 26, Alkaline Phosphatase 149H, Troponin I < 0.028, B-Type Natriuretic Peptide 425.4H, Total Protein 7.2, Albumin 3.8 05/01/20 11:31: Glucometer 103 05/02/20 03:05: White Blood Count 10.6, Red Blood Count 5.07, Hemoglobin 14.9, Hematocrit 45, Mean Corpuscular Volume 90, Mean Corpuscular Hemoglobin 29, Mean Corpuscular Hemoglobin Concent 33, Red Cell Distribution Width 14.1, Platelet Count 278, Umu n Platelet Volume 10.4, Neutrophils (%) (Auto) 69, Lymphocytes (%) (Auto) 21, Monocytes (%) (Auto) 8, Eosinophils (%) (Auto) 1, Basophils (%) (Auto) 0, Neutrophils # (Auto) 7.4, Lymphocytes # (Auto) 2.2, Monocytes # (Auto) 0.9, Eosinophils # (Auto) 0.1, Basophils # (Auto) 0.0, Sodium Level 144, Potassium Level 3.9, Chloride Level 103, Carbon Dioxide Level 27, Anion Gap 14, Blood Urea Nitrogen 17, Creatinine 0.85, Estimat Glomerular Filtration Rate > 60, BUN/Creatinine Ratio 20, Glucose Level 95, Calcium Level 10.1, Phosphorus Level 4.4, Magnesium Level 1.8, Triglycerides Level 142, Cholesterol Level 180, LDL Cholesterol Direct 117, VLDL Cholesterol 28, HDL Cholesterol 52 05/03/20 03:14: White Blood Count 11.1H, Red Blood Count 5.07, Hemoglobin 14.8, Hematocrit 46, Mean Corpuscular Volume 90, Mean Corpuscular Hemoglobin 29, Mean Corpuscular Hemoglobin Concent 32, Red Cell Distribution Width 14.4, Platelet Count 290, Mean Platelet Volume 10.3, Neutrophils (%) (Auto) 70, Lymphocytes (%) (Auto) 20, Monocytes (%) (Auto) 9, Eosinophils (%) (Auto) 1, Basophils (%) (Auto) 0, Neutrophils # (Auto) 7.8, Lymphocytes # (Auto) 2.2, Monocytes # (Auto) 1.0, Eosinophils # (Auto) 0.1, Basophils # (Auto) 0.1, Sodium Level 141, Potassium Level 3.9, Chloride Level 103, Carbon Dioxide Level 25, Anion Gap 13, Blood Urea Nitrogen 31H, Creatinine 0.90, Estimat Glomerular Filtration Rate > 60, BUN/Creatinine Ratio 34, Glucose Level 120H, Calcium Level 9.7, Phosphorus Level 4.5, Magnesium Level 1.9 Microbiology 05/01/20 MRSA Screen - Final, Complete MRSA not isolated Pending Labs Microbiology Date/Time Source Procedure Growth Status 05/01/20 21:19 Nasal MRSA Screen - Final MRSA not isolated Complete Laboratory Tests 05/01/20 10:55: Urine Color YELLOW, Urine Clarity CLEAR, Urine pH 8.5, Urine Specific [place] 1.010, Urine Protein NEGATIVE, Urine Glucose (UA) NEGATIVE, Urine Ketones NEGATIVE, Urine Nitrite NEGATIVE, Urine Bilirubin NEGATIVE, Urine Urobilinogen 0.2, Urine Leukocyte Esterase NEGATIVE, Urine RBC (Auto) 2+, Urine RBC 5-10, Urine WBC RARE, Urine Squamous Epithelial Cells RARE, Urine Crystals PRESENT, Urine Amorphous Sediment FEW [place] PHOSPHATE, Urine Bacteria TRACE, Urine Casts NONE, Urine Mucus NEGATIVE, Urine Culture Indicated NO 05/01/20 11:28: White Blood Count 10.2, Red Blood Count 4.83, Hemoglobin 14.3, Hematocrit 43, Mean Corpuscular Volume 89, Mean Corpuscular Hemoglobin 30, Mean Corpuscular Hemoglobin Concent 33, Red Cell Distribution Width 14.1, Platelet Count 266, Mean Platelet Volume 9.8, Neutrophils (%) (Auto) 77, Lymphocytes (%) (Auto) 15, Monocytes (%) (Auto) 6, Eosinophils (%) (Auto) 2, Basophils (%) (Auto) 1, Neutrophils # (Auto) 7.9, Lymphocytes # (Auto) 1.5, Monocytes # (Auto) 0.6, Eosinophils # (Auto) 0.2, Basophils # (Auto) 0.1, Prothrombin Time 13.8, INR Comment 1.0, Activated Partial Thromboplast Time 30, D-Dimer 1.57, Sodium Level 140, Potassium Level 3.8, Chloride Level 103, Carbon Dioxide Level 26, Anion Gap 11, Blood Urea Nitrogen 13, Creatinine 0.76, Estimat Glomerular Filtration Rate > 60, BUN/Creatinine Ratio 17, Glucose Level 107, Calcium Level 9.4, Corrected Calcium 9.6, Total Bilirubin 1.4, Aspartate Amino Transf (AST/SGOT) 28, Alanine Aminotransferase (ALT/SGPT) 26, Alkaline Phosphatase 149, Troponin I < 0.028, B- Type Natriuretic Peptide 425.4, Total Protein 7.2, Albumin 3.8 05/01/20 11:31: Glucometer 103 05/02/20 03:05: White Blood Count 10.6, Red Blood Count 5.07, Hemoglobin 14.9, Hematocrit 45, Mean Corpuscular Volume 90, Mean Corpuscular Hemoglobin 29, Mean Corpuscular Hemoglobin Concent 33, Red Cell Distribution Width 14.1, Platelet Count 278, Mean Platelet Volume 10.4, Neutrophils (%) (Auto) 69, Lymphocytes (%) (Auto) 21, Monocytes (%) (Auto) 8, Eosinophils (%) (Auto) 1, Basophils (%) (Auto) 0, Neutrophils # (Auto) 7.4, Lymphocytes # (Auto) 2.2, Monocytes # (Auto) 0.9, Eosinophils # (Auto) 0.1, Basophils # (Auto) 0.0, Sodium Level 144, Potassium Level 3.9, Chloride Level 103, Carbon Dioxide Level 27, Anion Gap 14, Blood Urea Nitrogen 17, Creatinine 0.85, Estimat Glomerular Filtration Rate > 60, BUN/Creatinine Ratio 20, Glucose Level 95, Calcium Level 10.1, Phosphorus Level 4.4, Magnesium Level 1.8, Triglycerides Level 142, Cholesterol Level 180, LDL C holesterol Direct 117, VLDL Cholesterol 28, HDL Cholesterol 52 05/03/20 03:14: White Blood Count 11.1, Red Blood Count 5.07, Hemoglobin 14.8, Hematocrit 46, Mean Corpuscular Volume 90, Mean Corpuscular Hemoglobin 29, Mean Corpuscular H emoglobin Concent 32, Red Cell Distribution Width 14.4, Platelet Count 290, Mean Platelet Volume 10.3, Neutrophils (%) (Auto) 70, Lymphocytes (%) (Auto) 20, Monocytes (%) (Auto) 9, Eosinophils (%) (Auto) 1, Basophils (%) (Auto) 0, Neutrophils # (Auto) 7.8, Lymphocytes # (Auto) 2.2, Monocytes # (Auto) 1.0, Eosinophils # (Auto) 0.1, Basophils # (Auto) 0.1, Sodium Level 141, Potassium Level 3.9, Chloride Level 103, Carbon Dioxide Level 25, Anion Gap 13, Blood Urea Nitrogen 31, Creatinine 0.90, Estimat Glomerular Filtration Rate > 60, BUN/Creatinine Ratio 34, Glucose Level 120, Calcium Level 9.7, Phosphorus Level 4.5, Magnesium Level 1.9 Discharge Home Medications: Active Scripts Active Reported Hydroxyzine HCl 10 Mg Tablet 10 Mg PO TID PRN LAST FILLED 03-15-2020 #90 Aspirin 81 Mg Tab.chew 81 Mg PO DAILY Flax Seed Oil (Flaxseed Oil) 1,000 Mg Capsule 1,000 Mg PO DAILY [Instaflex] 1 Tab PO DAILY Furosemide 20 Mg Tablet 20 Mg PO Q72H TAKE THE SAME DAY POTASSIUM Levothyroxine Sodium 50 Mcg Tablet 50 Mcg PO DAILY K-Tab ER (Potassium Chloride) 10 Meq Tablet.er 10 Meq PO Q72H TAKES ON THE SAME DAY FUROSEMIDE Diltiazem 24Hr Cd (Diltiazem HCl) 240 Mg Cap.er.24h 240 Mg PO DAILY Tylenol 8 Hour (Acetaminophen) 650 Mg Tablet.er 1,300 Mg PO Q8H PRN Carvedilol 6.25 Mg Tablet 6.25 Mg PO BID Iprat-Albut 0.5-3(2.5) mg/3 ml (Ipratropium/Albuterol Sulfate) 3 Ml Ampul.neb 3 Ml NEB QID PRN Singulair (Montelukast Sodium) 10 Mg Tablet 10 Mg PO DAILY Atorvastatin Calcium 20 Mg Tablet 20 Mg PO HS Celexa (Citalopram Hydrobromide) 20 Mg Tablet 20 Mg PO HS Eliquis (Apixaban) 5 Mg Tablet 5 Mg PO BID Instructions to patient/family Please see electronic discharge instructions given to patient. Diagnosis/Problems Diagnosis/Problems (1) CVA (cerebral vascular accident) (2) Aphasia (3) Atrial fibrillation Status: Acute (4) EMPHYSEMA, UNSPECIFIED Status: Chronic (5) History of shingles (6) Debility Status: Acute (7) Dementia (8) Delirium (9) Memory loss (10) Hypoxia Status: Chronic (11) Denial about severity of illness (12) Uncontrolled hypertension Status: Acute Clinical Quality Measures DVT/VTE Risk/Contraindication: Risk Factor Score Per Nursin RFS Level Per Nursing on Admit: 4+=Very High Stroke: Date of last known well: May 01, 2020 Time of last known well: 11:07 Symptoms onset unknown: Yes JEROME NEAL DO May 03, 2020 10:02
--- NOTE | 2020-05-03 11:00 | NUR ---
PT TRANSPORTED VIA W/C TO ARU VIA PHYSICAL THERAPY STAFF. NO TELE PER ONCOMING NURSE (DR NEAL ON ARU AT THIS TIME). REPORT CALLED TO ARU RN. ALL PERSONAL BELONGINGS WITH PATIENTS .
--- NOTE | 2020-05-03 11:01 | NUR ---
CM/SS: Pt will discharge and go to Inpatient Rehab Facility on today.
--- NOTE | 2020-05-03 18:13 | Cardiology Progress Note ---
Cardiology SOAP Progress Note Subjective: Non-verbal. No acute complaints. Objective: I&O/Vital Signs Weight (Pounds): 170 Weight (Ounces): 0 Weight (Calculated Kilograms): [phone] Constitutional: appears stated age, PERRL, well-developed, well-nourished Respiratory: chest is bilaterally symmetric, lungs clear to auscultation Cardiovascular: irregularly irregular, S1 and S2 Gastrointestional: soft, audible bowel sounds Extremities: normal range of motion, non-tender, normal inspection, no lower extremity edema bilateral Neurologic/Psychiatric: alert, motor weakness, other (Nonverbal.) Skin: normal color Results/Procedures: Labs Microbiology 05/01/20 MRSA Screen - Final, Complete MRSA not isolated A/P: Assessment/Dx: acute stroke, Hypertension, Dementia, Coronary artery disease Chronic atrial fibrillation, Pulmonary hypertension Plan: Recent acute stroke, will require inpatient rehabilitation. Was not a candidate for TPA due to Eliquis. Atrial fibrillation, chronic, rate controlled. Maintained on oral anticoagulation. Continue to monitor. Continue Eliquis Coronary artery disease, history of multiple intervention a total of 4 stents, last cardiac catheterization was done by Dr. Hamilton Chronic Congestive heart failure, previous left ventricular systolic dysfunction, ejection fraction 40-45 percent per echocardiogram done in September 2019, has PA pressure of 45-50 mmHg, mitral and tricuspid regurgitation. Hypertension, monitor blood pressure Hyperlipidemia, managed by primary care physician Diabetes mellitus, followed and managed by primary care physician History of smoking. Quit in 2003. Thank you for your consultation. Please call me if you have any questions. Edwina Bermudez MD, FACP, FACC, FSCAI, FHRS, CCDS Interventional Cardiology Cardiac Electrophysiology Vascular Medicine and Endovascular Interventions Clinical Quality Measures Stroke: Date of last known well: May 01, 2020 Time of last known well: 11:07 Symptoms onset unknown: Yes Faby BERMUDEZ MD May 03, 2020 18:12
== END 2020-05-03 11:00 | DRG 65 ==
LOC: EDUNIT# 10:42 → ER 10:44 → ICU 12:43
PROVIDERS: ADMIT Internal Medicine; ATTEND Internal Medicine
DX: I63.412 Cerebral infarction due to embolism of left middle cerebral artery (principal); G81.91 Hemiplegia, unspecified affecting right dominant side; I50.32 Chronic diastolic (congestive) heart failure; R47.01 Aphasia; H54.7 Unspecified visual loss; E78.00 Pure hypercholesterolemia, unspecified; F03.90 Unspecified dementia, unspecified severity, without behavioral disturbance, psychotic disturbance, mood disturbance, and anxiety; J43.9 Emphysema, unspecified; I11.0 Hypertensive heart disease with heart failure; R09.02 Hypoxemia; R13.12 Dysphagia, oropharyngeal phase; I48.91 Unspecified atrial fibrillation; R29.717 NIHSS score 17; I25.10 Atherosclerotic heart disease of native coronary artery without angina pectoris; K21.9 Gastro-esophageal reflux disease without esophagitis; M19.91 Primary osteoarthritis, unspecified site; M06.9 Rheumatoid arthritis, unspecified; F41.9 Anxiety disorder, unspecified; F32.9 Major depressive disorder, single episode, unspecified; Z79.01 Long term (current) use of anticoagulants; Z95.5 Presence of coronary angioplasty implant and graft; Z87.891 Personal history of nicotine dependence
CPT/HCPCS: 36415; 70496; 70498; 70551; 71045; 80048; 80053; 80061; 81000; 82962; 83735; 83880; 84100; 84484; 85025; 85379; 85610; 85730; 87081; 93005; 93041; 93306

== ENCOUNTER 2020-05-03 10:40 | Inpatient (IN) | payer MEDICARE, OTHER ==
[~2020-05-03] VITALS: Ht 162.6 cm; Wt 70.2 kg
[2020-05-03] MEDS: DOCUSATE SODIUM 100 MG (COLACE) CAP PO SCH ×2 (09:00→21:14)
[2020-05-03] MEDS: SENNA W/DOCUSATE (SENOKOT S) TABLET PO SCH ×2 (09:00→21:22)
[2020-05-03] MEDS: polyethylene glycoL POWDER 17 GM (MIRALAX) PACK PO SCH ×2 (09:00→21:14)
[~2020-05-03 10:40] MED LIST changes: +BISACODYL 10 MG SUPP (DULCOLAX) PR PRN; +CALCIUM CARBONATE 500 MG (TUMS) TAB.CHEW PO PRN; +DOCUSATE SODIUM 100 MG (COLACE) CAP PO PRN; +FLAX100031 PO; +FLEET ENEMA ADULT 1 EA BTL PR PRN; +HYDR-3584 PO; +LACTULOSE SYRUP 10GM/15ML (ENULOSE) 30ML UDC PO PRN; +LEVO50TA6 PO; +LOPERAMIDE 2 MG (IMODIUM) TABLET PO PRN; +ONDANSETRON 4 MG (ZOFRAN) ORAL DISSOLVE TAB PO PRN; +POTA10TA PO; +diphenhydrAMINE 25 MG TAB (BENADRYL) PO PRN; +guaiFENesin/CODEINE (ROBITUSSIN AC) 10ML UDC PO PRN
--- NOTE | 2020-05-03 10:40 | NUR ---
Lindsay Lee admitted to room 232-1, with an admitting diagnosis of CVA, on 05/03/20 from fourth floor medical [facility] via w/c, accompanied by and staff. LINDSAY LEE introduced to surroundings, call light, bed controls, phone, TV, temperature control, lights, meal times, smoking policy, visitor policy, side rail policy, bathrooms and showers. Patient Rights given to patient in the handbook.LINDSAY LEE verbalizes understanding that [facility] is not responsible for the loss or damage to any personal effects or valuables that are kept in the patients posession during their hospitalization. Patient unable to verbalize at this time. Patient and/or family were informed about the Rapid Response Team and its purpose. Patient received Patient Rights Booklet, which includes Privacy Act Statement and Data Collection Information Summary.
[2020-05-03 11:00] VITALS: BP 153/85
--- NOTE | 2020-05-03 11:24 | Physical Therapy Evaluation ---
PT Evaluation-General Medical Diagnosis Admission Date May 03, 2020 Medical Diagnosis: CVA right hemiparesis Onset Date: Apr 30, 2020 Therapy Diagnosis Therapy Diagnosis: severe weakness/debility Height/Weight Height (Feet): 5 Height (Inches): 4.00 Weight (Pounds): 170 Weight (Ounces): 0 Precautions Precautions/Isolations: Fall Prevention, Standard Precautions Referral Physician: Ammon Medical History Pertinent Medical History: Atrial Fib, Arthritis, CAD, COPD, Dementia, HTN, [place], Renal Insufficiency, Rheumatoid Arthritis Current History Transfer to ARU Reviewed History: Yes Social History Home: Single Level Current Living Status: Spouse Entry Into Home: Stairs With Railing PT Steps Into Home: 4 Prior Prior Level of Function SCALE: Activities may be completed with or without assistive devices. 3-Vjpgecmwcz-yaefcps completes the activity by him/herself with no assistance from a helper. 5-Set-up or Clean-up Assistance-helper sets up or cleans up; patient completes activity. Delevan assists only prior to or following the activity. 4-Supervision or Touching Assistance-helper provides verbal cues and/or touching/steadying and/or contact guard assistance as patient completes activity. Assistance may be provided throughout the activity or intermittently. 3-Partial/Moderate Assistance-helper does LESS THAN HALF the effort. Delevan lifts, holds or supports trunk or limbs, but provides less than half the effort. 2-Substantial/Maximal Assistance-helper does MORE THAN HALF the effort. Delevan lifts or holds trunk or limbs and provides more than half the effort. 8-Hugwulnad-ysiutx does ALL the effort. Patient does none of the effort to c omplete the activity. Or, the assistance of 2 or more helpers is required for the patient to complete the activity. If activity was not attempted, code reason: 7-Patient Refused. 9-Not Applicable-not attempted and the patient did not perform the activity before the current illness, exacerbation or injury. 10-Not Attempted due to Environmental Limitations-(lack of equipment, weather restraints, etc.). 88-Not Attempted due to Medical Conditions or Safety Concerns. Bed Mobility: 5 Transfers (B,C,W/C): 5 Gait: 5 Stairs: 5 Indoor Mobility (Ambulation): Independent Stairs: Independent Prior Devices Use: Walker PT Evaluation-Current Subjective Patient is non verbal. Blinks eyes to respond. Spouse present Pain Numeric Pain Scale: 0-No Pain Location: No Pain Reported Objective Patient Orientation: Non-Verbal/Aphasic Attachments: Oxygen (1L), Arana Catheter, IV ROM/Strength ROM Lower Extremities bilateral LE WFL Strength Lower Extremities left LE 3+/5 all planes/right LE 3-/5 grossly all planes ( noted tone right LE with difficulty following direction to perform MMT) Integumentary/Posture Integumentary refer to nursing notes Bowel Incontinence: Yes Bladder Incontinence: Arana Cath Posture WFL Neuromuscular (Tone, Coordination, Reflexes) severely diminished coordination and proprioception with slight extension tone right LE Sensory Vision: Functional Hearing: Impaired Sensation Right Lower Extremit: Impaired Sensation Left Lower Extremity: Impaired Transfers Roll Left to Right (QC): 1 Sit to Lying (QC): 1 Lying to Sitting/Side of Bed(Q: 1 Sit to Stand (QC): 1 Chair/Wgm-mx-Vsfos Xfer(QC): 1 Toilet Transfer (QC): 88 Car Transfer (QC): 88 unable to sit EOB without dependent assist due to severe right neglect and weakness Gait Does the Patient Walk?: No and Walking Goal IS indicated Mode of Locomotion: Both Anticipated Mode of Locomotion: Both Walk 10 feet (QC): 88 Walk 50 ft with 2 Turns(QC): 88 Walk 150 ft (QC): 88 Walking 10ft/uneven surface-QC: 88 Wheelchair Training Does the Pt Use a Wheelchair?: Yes Distance: 300' Wheel 50 ft with 2 turns (QC): 1 Wheel 150 ft (QC): 1 Type of Wheelchair: Manual Stairs 1 Step (curb) (QC): 88 4 Steps (QC): 88 12 Steps (QC): 88 Balance Sitting Static: Poor Sitting Dynamic: Poor Standing Static: Poor Standing Dynamic: Poor Picking up an Object (QC): 88 Treatment All 88 due to dependent assist and inability to perform or safely perform tasks due to severe CVA with right hemiparesis with neglect. Assessment/Needs 74 y.o. female, will benefit from skilled PT to address functional strength and mobility to improve current LOF. Patient is currently dependent with all mobility and is unable to safely sit unassisted or perform mobility tasks. Rehab Potential: Guarded PT Short Term Goals Short Term Goals Time Frame: May 25, 2020 Roll Left & Right: 3 Sit to lyin Lying to sitting on side of be: 3 Sit to stand: 3 Chair/zvv-gp-wvspu transfer: 3 Toilet transfer: 3 Car transfer: 3 Walk 10 feet: 3 PT Digester Operator Goals Digester Operator Goals PT Digester Operator Goals Time Frame: Jun 08, 2020 Roll Left & Right (QC): 4 Sit to Lying (QC): 4 Lying-Sitting on Side/Bed(QC): 4 Sit to Stand (QC): 4 Chair/Ssr-tz-Jqaxx Xfer(QC): 4 Toilet Transfer (QC): 4 Car Transfer (QC): 4 Does the Patient Walk: No and Walking Goal IS indicated Walk 10 feet (QC): 4 Walk 50ft with 2 Turns (QC): 4 Walk 150 ft (QC): 4 Walking 10ft on Uneven Surface: 4 1 Step (curb) (QC): 4 4 Steps (QC): 4 12 Steps (QC): 9 Picking up an Object (QC): 3 Does the Pt use WC or Scooter?: Yes Wheel 50 feet with 2 turns (QC: 4 Type: Manual Wheel 150 feet: 4 PT Plan Problem List Problem List: Activity Tolerance, Functional Strength, Safety, Balance, Gait, Transfer, Bed Mobility Treatment/Plan Treatment Plan: Continue Plan of Care Treatment Plan: Bed Mobility, Concurrent Therapy, Education, Functional Activity Rex, Functional Strength, Group Therapy, Gait, Safety, Therapeutic Exercise, Transfers Treatment Duration: Jun 08, 2020 Frequency: Modified Program (IRF) (01/05) Estimated Hrs Per Day: 1.5 hours per day Patient and/or Family Agrees t: Yes Safety Risks/Education Patient Education: Safety Issues Teaching Recipient: Family Teaching Methods: Discussion Response to Teaching: Verbalize Understanding Discharge Recommendations Therapy Discharge Recommendati: 24 Hour Supervision Time/GCodes Time In: 1040 Time Out: 1110 Total Billed Treatment Time: 30 Total Billed Treatment 1 visit EVModC 15 min FA 15 min MERT KASPER PT May 03, 2020 11:23
--- NOTE | 2020-05-03 11:32 | PM&R Post Admission Assessment ---
PM&R HP Date of Visit: May 03, 2020 Time of Visit: 11:30 History of Present Illness CC: Catastrophic CVA with right sided weakness and partial aphasia with dysphagia HPI: This is a 74yoWF clinic patient of mine for the past 14 years who has a h/o RA, COPD, O2 dependence, CAD previous stent, PAF on OAC, HTN, HLP and recent hip fracture with prolonged delirium requiring NHP until 6 weeks ago when she was DC home who presented to the ER with CVA. 3 days of OAC had been missed leading to increased risk for stroke. PLOF was independent with most ADL's and the use of walker but had a few falls recently. Med student DC note: Ms. Lee arrived in ER 05/01 with aphasia and R sided weakness. Last known well 9 pm last night before she went to bed, was awoken by her after she did not wake at her typical time, and was found to be nonverbal with R sided weakness. Daughter reports that she missed about 3 days of eliquis prior 05/01. She has a medical history of CHF and afib, with multiple hospitalizations for each since 2018. She also has a history of COPD, CAD w/ stents, hypercholesterolemia, hypertension, dementia, GERD, rheumatoid arthritis, osteoarthritis, anxiety, and depression. On neurological exam she displayed R sided paresis, worse in R arm than R leg, as well as somnolence. Since arriving she has been mostly nonverbal, but has attempted to speak on multiple occasions, usually 1-2 words that may or may not be intelligible. Has been hypertensive since admission, systolic pressure has been reduced significantly but diastolic remains consistently over 100. Has been consistently tachycardic. Swallow study indicated need for dysphagia 1 diet. When seen today, she has slightly improved somnolence, but continues to need to be addressed and redirected frequently to keep her eyes open and to follow requested directions. Has improved mobility of R side. Has 2+ R hand squeeze, was able to pull 2+ with R arm but not push, and was able to partially perform heel-aquino maneuver with both legs. Flexed R arm to attempt qyogye-si-eepi maneuver but was unable to perform with right arm, was slowly able to perform maneuver with L arm. Unable to hold R arm or leg elevated today, while able to hold L arm and leg elevated for 5 seconds or more. Able to shrug shoulders 3+ bilaterally. Continued R sided facial droop. Suspect some apparent debility on R is due to inability to focus for exam, for example, she was able to hold R leg elevated briefly yesterday and slowly lowered it on the day of admission, but did not demonstrate any ability to maintain tone when requested today, and she was able to partially perform vxyk-st-ggfl maneuver with R leg today. May be transferred to IRF. Hypertension has been better controlled, and she remains tachycardic with HR between 85-112. COPD has remained stable. She has displayed efforts to speak as well as definite improvement in strength and mobility of R side since admission. However, she continues to have somnolence and overall remains mostly aphasic and nonresponsive to questions about pain or sensation, and remains bedbound due to generalized weakness and R sided debility. BALDEMAR MARTELL MED STUDENT Past Oujkczv-Lznyiy-Fynluw Hx Past Med/Social Hx: Reviewed Nursing Past Med/Soc Hx, Reviewed and Corrections made Patient Social History Marrital Status: Employed/Student: retired Alcohol Use: Denies Use Smoking Status: Former Smoker Former Smoker, Quit: Aug 27, 2004 Type Used: Cigarettes 2nd Hand Smoke Exposure: No Recent Hopitalizations: No Immunizations Up To Date Tetanus Booster (TDap): Unknown Date of Pneumonia Vaccine: Sep 17, 2015 Date of Influenza Vaccine: Jul 19, 2019 Seasonal Allergies Seasonal Allergies: No Past Medical History Surgeries: Cardiac, Coronary Stent, Gallbladder, Tubal Ligation Respiratory: Chronic Bronchitis, COPD, Emphysema, Pneumonia Currently Using CPAP: No Currently Using BIPAP: No Cardiac: Atrial Fibrillation, Coronary Artery Disease, High Cholesterol, Hypertension 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: Dementia, Stroke (04/2020) Sexually Transmitted Disease: No HIV/AIDS: No Menopausal Genitourinary: Bladder Infection Gastrointestinal: Gastroesophageal Reflux Musculoskeletal: Arthritis, Rheumatoid Arthritis, Chronic Back Pain Loss of Vision: Denies Psychosocial: Anxiety, Depression History of Blood Disorders: No Adverse Reaction to Blood Sousa: No Family History Cardiovascular disease 19 MOTHER Diabetes mellitus 19 MOTHER Hypertension 19 MOTHER No Pertinent Family Hx LONG HISTORY OF NON-COMPLIANCE Prior Level of Function Bed Mobility: 5 Transfers: 5 Gait: 5 Stairs: 5 Indoor Mobility (Ambulation): Independent Stairs: Independent Prior Devices Use: Walker Occupation: retired Current Level of Fuctioning Roll Left to Right: 1 Sit to Lyin Lying to Sitting/Side of Bed: 1 Sit to Stand: 1 Chair/Jtu-td-Zqryu Xfer: 1 Car Transfer: 88 Does the Patient Walk: No and Walking Goal IS indicated Mode of Locomotion: Both Anticipated Mode of Locomotion: Both Walk 10 feet: 88 Walk 50 ft with 2 Turns: 88 Walk 150 ft: 88 Walking 10ft on uneven surface: 88 Does the Pt Use a Wheelchair: Yes Wheelchair Distance: 300' Wheel 50 ft with 2 turns: 1 Wheel 150 ft: 1 Type of Wheelchair: Manual 1 Step (curb): 88 4 Steps: 88 12 Steps: 88 Picking up an Object: 88 PM&R Allergy/Meds/Data Review Allergies Coded Allergies: Sulfa (Sulfonamide Antibiotics) (Verified Allergy, Unknown, 12/27/17) Home Medications Scheduled Apixaban (Eliquis), 5 MG PO BID, (Reported) Aspirin (Aspirin), 81 MG PO DAILY, (Reported) Atorvastatin Calcium (Atorvastatin Calcium), 20 MG PO HS, (Reported) Carvedilol (Carvedilol), 6.25 MG PO BID, (Reported) Citalopram Hydrobromide (Celexa), 20 MG PO HS, (Reported) Diltiazem HCl (Diltiazem 24Hr Cd), 240 MG PO DAILY, (Reported) Flaxseed Oil (Flax Seed Oil), 1,000 MG PO DAILY, (Reported) Furosemide (Furosemide), 20 MG PO Q72H, (Reported) Levothyroxine Sodium (Levothyroxine Sodium), 50 MCG PO DAILY, (Reported) Montelukast Sodium (Singulair), 10 MG PO DAILY, (Reported) Potassium Chloride (K-Tab ER), 10 MEQ PO Q72H, (Reported) [Instaflex], 1 TAB PO DAILY, (Reported) Scheduled PRN Acetaminophen (Tylenol 8 Hour), 1,300 MG PO Q8H PRN for PAIN-MILD (1-4), (Reported) Hydroxyzine HCl (Hydroxyzine HCl), 10 MG PO TID PRN for ANXIETY, (Reported) Ipratropium/Albuterol Sulfate (Iprat-Albut 0.5-3(2.5) mg/3 ml), 3 ML NEB QID PRN for SHORTNESS OF BREATH, (Reported) Discontinued Medications Amoxicillin (Amoxicillin), 500 MG PO TID Discontinued Reason: No Longer Taking Calcium Carbonate (Calcium Carbonate), 500 MG PO TID PRN for INDIGESTION, (Reported) Discontinued Reason: No Longer Taking Fluticasone/Salmeterol (Advair Hfa 115-21 Mcg Inhaler), 2 PUFF IH Q12H PRN for SHORTNESS OF BREATH, (Reported) Discontinued Reason: No Longer Taking Furosemide (Furosemide), 40 MG PO DAILY, (Reported) Discontinued Reason: No Longer Taking Hydrocodone/Acetaminophen ([place] 10-325 Tablet), 1 TAB PO Q4H PRN for PAIN- MODERATE Discontinued Reason: No Longer Taking Lidocaine HCl (Aspercreme), 1 APPLIC TP Q4H PRN for HERPETIC PAIN, (Reported) Discontinued Reason: No Longer Taking Loperamide HCl (Loperamide), 2 MG PO UD PRN for DIARRHEA, (Reported) Discontinued Reason: No Longer Taking Meclizine HCl (Meclizine HCl), 50 MG PO Q6H PRN for DIZZINESS, (Reported) Discontinued Reason: No Longer Taking Melatonin (Melatonin), 5 MG PO HS PRN for RESTLESSNESS, (Reported) Discontinued Reason: No Longer Taking Potassium Chloride (Potassium Chloride), 20 MEQ PO DAILY, (Reported) Discontinued Reason: Duplicate Order Sennosides/Docusate Sodium (Senna S Tablet), 1 TAB PO BID, (Reported) Discontinued Reason: No Longer Taking Current Medications Current Medications Reviewed Review of Systems Constitutional: see HPI, malaise, weakness EENTM: mouth pain, throat pain Respiratory: no symptoms reported Cardiovascular: no symptoms reported Gastrointestinal: no symptoms reported Genitourinary: no symptoms reported Musculoskeletal: back pain Skin: no symptoms reported Psychiatric/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: Numbness, Weakness Physical Exam Physical Exam Vital Signs Capillary Refill : Height, Weight, BMI Height: 5'4.00" Weight: 170lbs. 0oz. [id number]; 30.00 BMI Method:Stated General Appearance: No Apparent Distress, WD/WN, Chronically ill Eyes: Bilateral Eye Normal Inspection, Bilateral Eye PERRL HEENT: PERRL/EOMI, Normal ENT Inspection, Pharynx Normal Neck: Full Range of Motion, Normal Inspection, Non Tender, Supple, Carotid Bruit Respiratory: Chest Non Tender, Lungs Clear, Normal Breath Sounds, No Accessory Muscle Use, No Respiratory Distress Cardiovascular: Regular Rate, Rhythm, No Edema, No Gallop, No JVD, No Murmur, Normal Peripheral Pulses Gastrointestinal: Normal Bowel Sounds, No Organomegaly, No Pulsatile Mass, Non Tender, Soft Back: Normal Inspection, No CVA Tenderness, No Vertebral Tenderness Extremity: Normal Capillary Refill, Normal Inspection, Normal Range of Motion, Non Tender, No Calf Tenderness, No Pedal Edema Neurologic/Psychiatric: Alert, 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, Aphasia, Depressed Affect, Disoriented, Facial Droop, Motor Weakness (right sided) Skin: Normal Color, Warm/Dry Lymphatic: No Adenopathy PM&R Medical Assessment & Plan REHAB/MEDICAL ASSESSMENT AND PLAN: REHAB IMPAIRMENT GROUP: CVA ETIOLOGIC DIAGNOSIS: CVA The comorbidities that impact the patients function and/or functional outcome by: severe CVA with disability, COPD, RA, CAD, PAF, falls, delirium, aphasia REHAB PLAN: The patient is being admitted to our comprehensive inpatient rehabilitation facility and can tolerate the intensity of service consisting of at least: 180 minutes of therapy a day, 5 out of 7 days a week Rehab treatment will consist of: PT OT ST will all focus on regaining some function from catastrophic CVA with right sided weakness and partial aphasia The patient/family has a good understanding of our discharge process and will benefit from an interdisciplinary inpatient rehabilitation program. The patient has potential to make improvement and is in need of at least two of the following multidisciplinary therapies including but not limited to physical, occupational, speech, and prosthetics and orthotics. Additionally the patient will need services from respiratory, nutritional services, wound care, psychology, etc. (Customize this to each patient). Given the patients complex condition and risk of further medical complications, rehabilitation services cannot be safely or effectively provided at a lower level of care such as a retirement facility. BARRIERS TO DISCHARGE: Severe disability ESTIMATED LOS: 21 days DISPOSITION: Home with HH RELEVANT CHANGES SINCE PREADMISSION SCREENING: I have compared the patients medical and functional status at the time of the preadmission screening and there are: no changes PROGNOSIS: Guarded REHABILITATION GOALS: 1. PT OT ST will all focus on regaining some function from catastrophic CVA with right sided weakness and partial aphasia All the above goals were reviewed with the patient and he/she is in agreement. By signing this document, I acknowledge that I have personally performed a full physical examination on this patient within 24 hours of admission to this inpatient rehabilitation facility and have determined the patient to be able to tolerate the above course of treatment at an intensive level for a reasonable period of time. I will be completing a detailed individualized Plan of Care for this patient by day #4 of the patients stay based upon the Preadmission Screen, the Post-Admission Evaluation, and the therapy evaluations. Admission Dx/Comorbidities: (1) CVA (cerebral vascular accident) ICD Codes: I63.9 - Cerebral infarction, unspecified (2) EMPHYSEMA, UNSPECIFIED Status: Chronic ICD Codes: J43.9 - EMPHYSEMA, UNSPECIFIED (3) Denial about severity of illness (4) History of shingles ICD Codes: Z86.19 - Personal history of other infectious and parasitic diseases (5) Uncontrolled hypertension Status: Acute (6) Aphasia ICD Codes: R47.01 - Aphasia (7) Debility Status: Acute ICD Codes: R53.81 - Other malaise (8) Hypoxia Status: Chronic (9) Dementia ICD Codes: F03.90 - Unspecified dementia without behavioral disturbance (10) Delirium ICD Codes: R41.0 - Disorientation, unspecified (11) Memory loss ICD Codes: R41.3 - Other amnesia (12) Paroxysmal atrial fibrillation Status: Chronic ICD Codes: I48.0 - Paroxysmal atrial fibrillation (13) Myopathy ICD Codes: G72.9 - Myopathy, unspecified (14) Noncompliance with medication regimen Status: Chronic Assessment/Plan Assessment and Plan Assess & Plan/Chief Complaint Assessment: Catastrophic CVA with right sided weakness and aphasia HTN AF Recent hip fracture Debility COPD h/o delirium severe requiring NH placement for months just recently DC home 6 weeks ago Plan: IRF protocol Home meds Monitor BP Fall risk JEROME ZEPEDA DO May 03, 2020 11:32
--- NOTE | 2020-05-03 12:01 | NUR ---
I ENTERED THE MED REC WHEN THE PT WAS IN ICU ON 05-02-2020- THE PT WAS UNABLE TO GIVE ME ANY INFORMATION THEREFORE I CALLED HER TONY, WENT THRU THE EXT MED HISTORY AND THERE WAS A MED LIST ON THE PATIENTS CHART. OTC MEDS: TYLENOL ASPIRIN 81 INSTAFLEX FLAXSEED OIL CAPS
[2020-05-03 12:08] VITALS: BP 148/87
--- NOTE | 2020-05-03 12:40 | Physical Therapy Daily Note ---
PT Daily Note-Current Mental Status Patient Orientation: Non-Verbal/Aphasic Attachments: Oxygen, Arana Catheter Transfers SCALE: Activities may be completed with or without assistive devices. 4-Bvjxqfqrvg-ldxvrqo completes the activity by him/herself with no assistance from a helper. 5-Set-up or Clean-up Assistance-helper sets up or cleans up; patient completes activity. Cunningham assists only prior to or following the activity. 4-Supervision or Touching Assistance-helper provides verbal cues and/or touching/steadying and/or contact guard assistance as patient completes activity. Assistance may be provided throughout the activity or intermittently. 3-Partial/Moderate Assistance-helper does LESS THAN HALF the effort. Cunningham lifts, holds or supports trunk or limbs, but provides less than half the effort. 2-Substantial/Maximal Assistance-helper does MORE THAN HALF the effort. Cunningham lifts or holds trunk or limbs and provides more than half the effort. 7-Khfzzakzy-lpdglu does ALL the effort. Patient does none of the effort to com plete the activity. Or, the assistance of 2 or more helpers is required for the patient to complete the activity. If activity was not attempted, code reason: 7-Patient Refused. 9-Not Applicable-not attempted and the patient did not perform the activity before the current illness, exacerbation or injury. 10-Not Attempted due to Environmental Limitations-(lack of equipment, weather restraints, etc.). 88-Not Attempted due to Medical Conditions or Safety Concerns. Sit to Stand (QC): 1 Toilet Transfer (QC): 1 dependent assist with all sit to stand and SPT w/c to commode to recliner x 3 se ts with PT address sitting and standing static and dynamic balance. Patient requires assistance to advance right LE for safe transfers. Weight Bearing Right Lower Extremity: Right Weight Bearing/Tolerated Left Lower Extremity: Left Weight Bearing/Tolerated Treatments Co Treat with OT due to patient requires the skilled of 2 clinicians to safely and effectively perform standing and sitting dynamic and static balance activity while OT address ADL tasks. Assessment Patient fatigues with activity and is up in recliner with needs met. PT to increase activity as tolerated by patient. PT Short Term Goals Short Term Goals Time Frame: May 25, 2020 Roll Left & Right: 3 Sit to lyin Lying to sitting on side of be: 3 Sit to stand: 3 Chair/efc-az-dcooo transfer: 3 Toilet transfer: 3 Car transfer: 3 Walk 10 feet: 3 PT Paver Goals Paver Goals PT Paver Goals Time Frame: Jun 08, 2020 Roll Left & Right (QC): 4 Sit to Lying (QC): 4 Lying-Sitting on Side/Bed(QC): 4 Sit to Stand (QC): 4 Chair/Wtf-pp-Cjdrq Xfer(QC): 4 Toilet Transfer (QC): 4 Car Transfer (QC): 4 Does the Patient Walk: No and Walking Goal IS indicated Walk 10 feet (QC): 4 Walk 50ft with 2 Turns (QC): 4 Walk 150 ft (QC): 4 Walking 10ft on Uneven Surface: 4 1 Step (curb) (QC): 4 4 Steps (QC): 4 12 Steps (QC): 9 Picking up an Object (QC): 3 Does the Pt use WC or Scooter?: Yes Wheel 50 feet with 2 turns (QC: 4 Type: Manual Wheel 150 feet: 4 PT Plan Treatment/Plan Treatment Plan: Continue Plan of Care Treatment Plan: Bed Mobility, Concurrent Therapy, Education, Functional Act ivity Rex, Functional Strength, Group Therapy, Gait, Safety, Therapeutic Exercise, Transfers Treatment Duration: Jun 08, 2020 Frequency: Modified Program (IRF) (01/05) Estimated Hrs Per Day: 1.5 hours per day Patient and/or Family Agrees t: Yes Time/GCodes Time In: 1130 Time Out: 1200 Total Billed Treatment Time: 30 Total Billed Treatment 1 visit FA x 2 30 min ([place] with OT) MERT KASPER PT May 03, 2020 12:40
[2020-05-03] MEDS ORDERED: CATHETER FLUSH 10 ML SYR IV PRN (12:45)
--- NOTE | 2020-05-03 12:47 | Occupational Therapy Eval ---
OT Evaluation-General/PLF Medical Diagnosis Admission Date May 03, 2020 at 10:40 Medical Diagnosis: CVA right hemiparesis Onset Date: Apr 30, 2020 Therapy Diagnosis Therapy Diagnosis: decreased self care skills Height/Weight Height (Feet): 5 Height (Inches): 4.00 Weight (Pounds): 170 Weight (Ounces): 0 Precautions Precautions/Isolations: Fall Prevention, Standard Precautions Referral Physician: Ammon Medical History Pertinent Medical History: Atrial Fib, Arthritis, CAD, COPD, Dementia, HTN, [place], Renal Insufficiency, Rheumatoid Arthritis Additional Medical History anxiety, depression, hypercholesterolemia Current History Pt admitted to ARU following acute hospitalization for CVA Reviewed History: Yes Social History Home: Single Level Current Living Status: Spouse Entry Into Home: Stairs With Railing Steps Into Home: 4 ADL-Prior Level of Function SCALE: Activities may be completed with or without assistive devices. 1-Nhguhoolry-nntzloz completes the activity by him/herself with no assistance from a helper. 5-Set-up or Clean-up Assistance-helper sets up or cleans up; patient completes activity. Mellott assists only prior to or following the activity. 4-Supervision or Touching Assistance-helper provides verbal cues and/or touching/steadying and/or contact guard assistance as patient completes activity. Assistance may be provided throughout the activity or intermittently. 3-Partial/Moderate Assistance-helper does LESS THAN HALF the effort. Mellott lifts, holds or supports trunk or limbs, but provides less than half the effort. 2-Substantial/Maximal Assistance-helper does MORE THAN HALF the effort. Mellott lifts or holds trunk or limbs and provides more than half the effort. 9-Gijyvnuca-atsuut does ALL the effort. Patient does none of the effort to complete the activity. Or, the assistance of 2 or more helpers is required for the patient to complete the activity. If activity was not attempted, code reason: 7-Patient Refused. 9-Not Applicable-not attempted and the patient did not perform the activity before the current illness, exacerbation or injury. 10-Not Attempted due to Environmental Limitations-(lack of equipment, weather restraints, etc.). 88-Not Attempted due to Medical Conditions or Safety Concerns. ADL PLOF Comments Pt is nonverbal. PLOF obtained from spouse. Spouse reports pt is normally able to complete basic self care tasks without assist. Uses FWW for mobility. Spouse states pt has minimal activity level. Pt does not complete household tasks. Self Care: Needed Some Help DME/Equipment: Bath Chair, Grab Bars, Shower Drive Self: No OT Current Status Subjective Pt sitting in w/c, is nonverbal. Spouse present Mental Status/Objective Patient Orientation: Unable to Assess, Non-Verbal/Aphasic Attachments: Arana Catheter, IV Current Glasses/Contacts: Yes (reading glasses. Pt's keeps head turned to left. ) Hearing Aids: No Dentures/Partials: Yes Hand Dominance: Right Upper Extremity ROM Pt has difficulty following commands for ROM/MMT Left UE grossly WFL Right UE: Pt demonstrates trace finger movement and elbow flexion. PROM grossly functional Upper Extremity Coordination Impaired Upper Extremity Sensation Unable to assess ADL-Treatment Eating (QC): 1 (per nursing report) Oral Hygiene (QC): 10 Shower/Bathe Self (QC): 1 (Pt attempts to wash face with left UE. Dependent to wash all other areas. ) Upper Body Dressing (QC): 1 (Dependent for UE dressing.) Lower Body Dressing (QC): 1 On/Off Footwear (QC): 2 (Dependent to doff/don socks.) Toileting Hygiene (QC): 1 (Pt was incontinent of bowel. Transferred to [facility] with total assist. Total assist required to complete toileting hygiene.) Other Treatments After initial evaluation, co-treat with PT secondary to need for two skilled therapists to address pt's mobility, ADL functioning, and balance. OT focusing on ADL task completion and UE management. PT focusing on sitting and standing balance during ADL tasks and mobility. Pt requires assist x2 for safety during ADL tasks. Pt sitting in recliner chair with needs met after session. Education OT Patient Education: Rehab process Teaching Recipient: Patient Teaching Methods: Discussion Response to Teaching: Unable to Comprehend OT Short Term Goals Short Term Goals Time Frame: May 17, 2020 Shower/bathe self: 2 Upper body dressin Lower body dressin OT Professor Of Environmental Studies Goals Professor Of Environmental Studies Goals Time Frame: May 31, 2020 Eating (QC): 4 Oral Hygiene (QC): 4 Toileting Hygiene (QC): 3 Shower/Bathe Self (QC): 3 Upper Body Dressing (QC): 4 Lower Body Dressing (QC): 3 On/Off Footwear (QC): 3 Additional Goals: 1-Demonstrate ADL Tasks, 2-Verbalize Understanding, 3- ImproveStrength/Rex 1=Demonstrate adherence to instructed precautions during ADL tasks. 2=Patient will verbalize/demonstrate understanding of assistive d evices/modifications for ADL. 3=Patient will improve strength/tolerance for activity to enable patient to perform ADL's. OT Education/Plan Problem List/Assessment Assessment: Decreased Activ Tolerance, Decreased Safety Aware, Decreased UE Strength, Dependent Transfers, Impaired Bed Mobility, Impaired Cognition, Impaired Coordination, Impaired Funct Balance, Impaired I ADL's, Impaired Self- Care Skills, Restricted Funct UE ROM, Visual-Perceptual Deficit Pt admitted to ARU secondary to CVA with right side deficits. Pt demonstrates impaired ADL functioning, mobility, strength, coordination, and activity tolerance. Pt to benefit from skilled OT intervention for ADL training, transfers, strengthening, and home safety education to increase level of independence and allow safe discharge plan. Discharge Recommendations Plan/Recommendations: Continue POC Treatment Plan/Plan of Care Patient would benefit from OT for education, treatment and training to promote independence in ADL's, mobility, safety and/or upper extremity function for ADL's. Plan of Care: ADL Retraining, Functional Mobility, Group Exercise/Act as Ind, UE Funct Exercise/Act, UE Neuromus Re-Ed/Coord, Visual/Perceptual Retrain Treatment Duration: May 31, 2020 Frequency: Modified Program (IRF) (01/05) Rehab Potential: Guarded Time/GCodes Start Time: 11:10 Stop Time: 12:00 Total Time Billed (hr/min): 50 Billed Treatment Time 1 visit, EVM(20minutes), ADLx2(30minutes) OT eval [id number] Co-treat with PT [id number] BROOKE BUSTOS OT May 03, 2020 12:47
--- OUTSIDE RECORDS SUMMARY | 2020-05-03 13:58 | XMS REPORT | Continuity of Care Document ---
Author Organization Unknown Address Unknown Phone Unavailable Allergies Active Description Code Type Severity Reaction Onset Reported/Identified Relationship to Patient Clinical Status Yes No Known Drug Allergies [id number] Drug Allergy Unknown N/A 08/27/2016 Yes egg [id number] Drug Allergy Unknown N/A 12/27/2017 Yes Sulfa (Sulfonamide Antibiotics) [id number] Drug Allergy Unknown N/A 018 Medications There is no data. Problems Date Dx Coded Attending Type Code Diagnosis Diagnosed By 08/27/2016 JEROME NEAL DO Ot E78.00 PURE HYPERCHOLESTEROLEMIA, UNSPECIFIED 08/27/2016 JEROME NEAL DO Ot I10 ESSENTIAL (PRIMARY) HYPERTENSION 08/27/2016 JEROME NEAL DO Ot I25.10 ATHSCL HEART DISEASE OF [place] CORONARY 08/27/2016 JEROME NEAL DO Ot I25.2 OLD MYOCARDIAL INFARCTION 08/27/2016 JEROME NEAL DO Ot I48.2 CHRONIC ATRIAL FIBRILLATION 08/27/2016 JEROME NEAL DO Ot J18.9 PNEUMONIA, UNSPECIFIED ORGANISM 08/27/2016 JASIEL NEAL DOI Ot R09.02 HYPOXEMIA 08/27/2016 JEROME NEAL DO Ot R53.1 WEAKNESS 08/27/2016 JEROME NEAL DO Ot R74.8 ABNORMAL LEVELS OF OTHER SERUM ENZYMES 08/27/2016 JEROME NEAL DO Ot Z79.89 9 OTHER ASSISTED (CURRENT) DRUG THERAPY 08/27/2016 JEROME NEAL DO Ot Z87.89 1 PERSONAL HISTORY OF NICOTINE DEPENDENCE 08/27/2016 JEROME NEAL DO Ot Z95.5 PRESENCE OF CORONARY ANGIOPLASTY IMPLANT 08/28/2016 JEROME NEAL DO Ot E78.00 PURE HYPERCHOLESTEROLEMIA, UNSPECIFIED 08/28/2016 JEROME NEAL DO Ot I10 ESSENTIAL (PRIMARY) HYPERTENSION 08/28/2016 JEROME NEAL DO Ot I25.10 ATHSCL HEART DISEASE OF [place] CORONARY 08/28/2016 NEAL DO, JEROME Ot I25.2 OLD MYOCARDIAL INFARCTION 08/28/2016 JASIEL NEAL DOI Ot I48.2 CHRONIC ATRIAL FIBRILLATION 08/28/2016 JASIEL NEAL DOI Ot J18.9 PNEUMONIA, UNSPECIFIED ORGANISM 08/28/2016 JASIEL NEAL DOI Ot R09.02 HYPOXEMIA 08/28/2016 JASIEL NEAL DOI Ot R53.1 WEAKNESS 08/28/2016 JASIEL NEAL DOI Ot R74.8 ABNORMAL LEVELS OF OTHER SERUM ENZYMES 08/28/2016 JASIEL NEAL DOI Ot Z79.89 9 OTHER ASSISTED (CURRENT) DRUG THERAPY 08/28/2016 VAL SERRANO JEROME [...] DOI Ot I25.10 ATHSCL HEART DISEASE OF [place] CORONARY 08/28/2016 JASIEL NEAL DOI Ot I25.2 [...] JASIEL NEAL DOI Ot Z79.89 9 OTHER FIELD ASSOCIATE (CURRENT) DRUG THERAPY 08/28/2016 JASIEL NEAL DOI [...] JEROME Ot I25.10 ATHSCL HEART DISEASE OF [place] CORONARY 08/29/2016 VAL SERRANO JEROME Ot I25.2 [...] LEVELS OF OTHER SERUM ENZYMES 08/29/2016 JASIEL NEAL DOI Ot Z79.89 9 OTHER FIELD ASSOCIATE (CURRENT) DRUG THERAPY 08/29/2016 JASIEL NEAL DOI Ot Z87.89 1 PERSONAL HISTORY OF NICOTINE DEPENDENCE 08/29/2016 JASIEL NEAL DOI Ot Z95.5 PRESENCE OF CORONARY ANGIOPLASTY IMPLANT 12/18/2016 JASIEL NEAL DOI Ot E11.9 TYPE 2 DIABETES MELLITUS WITHOUT COMPLIC 12/18/2016 JASIEL NEAL DOI Ot I11.0 HYPERTENSIVE HEART DISEASE WITH HEART FA 12/18/2016 VAL SERRANO JEROME Ot I25.10 ATHSCL HEART DISEASE OF [place] CORONARY 12/18/2016 VAL SERRANO JEROME Ot I25.2 [...] UNSPECIFIED 12/18/2016 JEROME NEAL DO Ot Z79.01 ASSISTED (CURRENT) USE OF ANTICOAGULANT 12/18/2016 JEROME NEAL DO Ot Z79.02 FIELD ASSOCIATE (CURRENT) USE OF ANTITHROMBOTI 12/18/2016 JEROME NEAL DO Ot Z79.89 9 OTHER FIELD ASSOCIATE (CURRENT) DRUG THERAPY 12/18/2016 JEROME NEAL DO [...] DO Ot I25.10 ATHSCL HEART DISEASE OF [place] CORONARY 12/28/2016 JEROME NEAL DO Ot I25.2 [...] JEROME NEAL DO Ot Z79.89 9 OTHER ASSISTED (CURRENT) DRUG THERAPY 12/28/2016 JEROME NEAL DO Ot Z87.89 1 PERSONAL HISTORY OF NICOTINE DEPENDENCE 12/28/2016 JEROME NEAL DO Ot Z91.12 0 PT INTENTL UNDRDOSE OF MEDS REGIMEN DUE 12/28/2016 JEROME NEAL DO Ot Z95.5 PRESENCE OF CORONARY ANGIOPLASTY IMPLANT 01/26/2017 JEROME NEAL DO Ot I25.10 ATHSCL HEART DISEASE OF [place] CORONARY 01/26/2017 JEROME NEAL DO Ot I48.91 UNSPECIFIED ATRIAL FIBRILLATION 01/26/2017 JEROME NEAL DO Ot J18.9 PNEUMONIA, UNSPECIFIED ORGANISM 01/26/2017 JEROME NEAL DO Ot J44.9 CHRONIC OBSTRUCTIVE PULMONARY DISEASE, U 01/26/2017 JEROME NEAL DO Ot M06.9 RHEUMATOID ARTHRITIS, UNSPECIFIED 01/26/2017 JEROME NEAL DO Ot Z95.5 PRESENCE OF CORONARY ANGIOPLASTY IMPLANT 02/25/2017 JEWEL THAKKAR DO Ot E78. 4 OTHER HYPERLIPIDEMIA 02/25/2017 JEWEL THAKAKR DO Ot I10 ESSENTIAL (PRIMARY) HYPERTENSION 02/25/2017 [...] JEROME Ot I25.10 ATHSCL HEART DISEASE OF [place] CORONARY 03/10/2017 VAL DO JEROME Ot I48.91 UNSPECIFIED ATRIAL FIBRILLATION 03/10/2017 JEROME NEAL DO Ot J18.9 PNEUMONIA, UNSPECIFIED ORGANISM 03/10/2017 VAL [...] DO Ot I25.10 ATHSCL HEART DISEASE OF [place] CORONARY 04/25/2017 JEROME NEAL DO Ot I48.91 UNSPECIFIED ATRIAL FIBRILLATION 04/25/2017 JEROME NEAL DO Ot J18.9 PNEUMONIA, UNSPECIFIED ORGANISM 04/25/2017 VAL SERRANO JEROME Ot J44.9 CHRONIC OBSTRUCTIVE PULMONARY DISEASE, U 04/25/2017 VAL SERRANO JEROME Ot M06.9 RHEUMATOID ARTHRITIS, UNSPECIFIED 04/25/2017 VAL SERRANO JEROME Ot Z95.5 PRESENCE OF CORONARY ANGIOPLASTY IMPLANT 04/26/2017 VAL SERRANO JEROME Ot I25.10 ATHSCL HEART DISEASE OF [place] CORONARY 04/26/2017 NEAL DO, JEROME Ot I48.91 UNSPECIFIED ATRIAL FIBRILLATION 04/26/2017 NEAL DO, JEROME Ot J18.9 PNEUMONIA, UNSPECIFIED ORGANISM 04/26/2017 NEAL DO, JEROME Ot J44.9 CHRONIC OBSTRUCTIVE PULMONARY DISEASE, U 04/26/2017 NEAL DO, JEROME Ot M06.9 RHEUMATOID ARTHRITIS, UNSPECIFIED 04/26/2017 NEAL DO, JEROME Ot Z95.5 PRESENCE OF CORONARY ANGIOPLASTY IMPLANT 12/27/2017 NEAL DO JEROME Ot I25.10 ATHSCL HEART DISEASE OF [place] CORONARY 12/27/2017 NEAL DO, JEROME Ot I48.91 [...] Ot I25. 10 ATHSCL HEART DISEASE OF [place] CORONARY 12/28/2017 JUN MARCIAL MD Ot I25. [...] 12/28/2017 JUN MARCIAL MD Ot Z79. 01 FIELD ASSOCIATE (CURRENT) USE OF ANTICOAGULANT 12/28/2017 JUN MARCIAL [...] MD Ot I25.10 ATHSCL HEART DISEASE OF [place] CORONARY 03/20/2018 PATRICIA CABAN MD Ot I25.2 OLD MYOCARDIAL INFARCTION 03/20/2018 PATRICIA CABAN MD Ot I48.91 UNSPECIFIED ATRIAL FIBRILLATION 03/20/2018 PATRICIA CABAN MD Ot I50.9 HEART FAILURE, UNSPECIFIED 03/20/2018 PATRICIA CABAN MD Ot J44.9 CHRONIC OBSTRUCTIVE PULMONARY DISEASE, U 03/20/2018 PATRICIA CABAN MD Ot M06.9 RHEUMATOID ARTHRITIS, UNSPECIFIED 03/20/2018 PATRICIA CABAN MD Ot R05 COUGH 03/20/2018 PATRICIA CABAN MD Ot Z79.01 ASSISTED (CURRENT) USE OF ANTICOAGULANT 03/20/2018 PATRICIA CABAN MD, Ot Z79.82 ASSISTED (CURRENT) USE OF ASPIRIN 03/20/2018 PATRICIA CABAN [...] MD, Ot I25.10 ATHSCL HEART DISEASE OF [place] CORONARY 03/22/2018 PATRICIA CABAN MD Ot I25.2 OLD MYOCARDIAL INFARCTION 03/22/2018 PATRICIA CABAN MD Ot I48.91 UNSPECIFIED ATRIAL FIBRILLATION 03/22/2018 PATRICIA CABAN MD Ot I50.9 HEART FAILURE, UNSPECIFIED 03/22/2018 PATRICIA CABAN MD Ot J44.9 CHRONIC OBSTRUCTIVE PULMONARY DISEASE, U 03/22/2018 PATRICIA CABAN MD Ot M06.9 RHEUMATOID ARTHRITIS, UNSPECIFIED 03/22/2018 PATRICIA CABAN MD Ot R05 COUGH 03/22/2018 PATRICIA CABAN MD, Ot Z79.01 FIELD ASSOCIATE (CURRENT) USE OF ANTICOAGULANT 03/22/2018 PATRICIA CABAN MD Ot Z79.82 ASSISTED (CURRENT) USE OF ASPIRIN 03/22/2018 PATRICIA CABAN [...] DO Ot I25.10 ATHSCL HEART DISEASE OF [place] CORONARY 11/01/2018 JASIEL NEAL DOI Ot I48.91 [...] JEROME Ot I25.10 ATHSCL HEART DISEASE OF [place] CORONARY 11/02/2018 VAL SERRANO JEROME Ot I48.91 [...] DOI Ot I25.10 ATHSCL HEART DISEASE OF [place] CORONARY 11/02/2018 JASIEL NEAL DOI Ot I25.2 [...] HYPOXEMIA 11/02/2018 JEROME NEAL DO Ot Z79.01 FIELD ASSOCIATE (CURRENT) USE OF ANTICOAGULANT 11/02/2018 JEROME NEAL DO Ot Z79.82 ASSISTED (CURRENT) USE OF ASPIRIN 11/02/2018 JASIEL NEAL DOI Ot Z79.89 9 OTHER ASSISTED (CURRENT) DRUG THERAPY 11/02/2018 JEROME NEAL DO [...] DO Ot I25.10 ATHSCL HEART DISEASE OF [place] CORONARY 02/22/2019 JASIEL NEAL DOI Ot I48.91 UNSPECIFIED ATRIAL FIBRILLATION 02/22/2019 JEROME NEAL DO Ot J18.9 PNEUMONIA, UNSPECIFIED ORGANISM 02/22/2019 JEROME NEAL DO Ot J44.9 CHRONIC OBSTRUCTIVE PULMONARY DISEASE, U 02/22/2019 JEROME NEAL DO Ot M06.9 RHEUMATOID ARTHRITIS, UNSPECIFIED 02/22/2019 VAL SERRANO JEROME Ot Z95.5 PRESENCE OF CORONARY ANGIOPLASTY IMPLANT 02/24/2019 JEROME NEAL DO Ot D64.9 ANEMIA, UNSPECIFIED 02/24/2019 VAL SERRANO JEROEM Ot I48.91 UNSPECIFIED ATRIAL FIBRILLATION 02/24/2019 VAL [...] JEROME Ot I25.10 ATHSCL HEART DISEASE OF [place] CORONARY 10/07/2019 VAL SERRANO JEROME Ot I48.91 [...] JEROME Ot I25.10 ATHSCL HEART DISEASE OF [place] CORONARY 10/10/2019 JASIEL NEAL DOI Ot I25.2 [...] UNSPECIFIED 10/10/2019 VAL SERRANO JEROME Ot Z79.01 FIELD ASSOCIATE (CURRENT) USE OF ANTICOAGULANT 10/10/2019 JASIEL NEAL [...] JEROME Ot I25.10 ATHSCL HEART DISEASE OF [place] CORONARY 10/11/2019 VAL SERRANO JEROME Ot I48.91 [...] DO Ot I25.10 ATHSCL HEART DISEASE OF [place] CORONARY 10/14/2019 JEROME NEAL DO Ot I48.0 [...] ANALOG 10/14/2019 JEROME NEAL DO Ot Z79.01 ASSISTED (CURRENT) USE OF ANTICOAGULANT 10/14/2019 JEROME NEAL [...] JEROME Ot I25.10 ATHSCL HEART DISEASE OF [place] CORONARY 10/26/2019 NEAL DO, JEROME Ot I25.2 [...] JEROME Ot I25.10 ATHSCL HEART DISEASE OF [place] CORONARY 11/06/2019 NEAL DO, JEROME Ot I48.91 [...] JEROME Ot I25.10 ATHSCL HEART DISEASE OF [place] CORONARY 01/03/2020 NEAL DO, JEROME Ot I25.2 OLD MYOCARDIAL INFARCTION 01/03/2020 NEAL DO, JEROME Ot I48.0 PAROXYSMAL ATRIAL FIBRILLATION 01/03/2020 NEAL DO, JEROME Ot I50.23 ACUTE ON CHRONIC SYSTOLIC (CONGESTIVE) H 01/03/2020 NEAL DO, JEROME Ot J10.89 INFLUENZA DUE TO [facility] IDENT INFLUENZA VIR 01/03/2020 NEAL DO, JEROME [...] JEROME Ot Y92.[address] IN [facility] NON-INSTITUT (PRIVATE 01/03/2020 VAL SERRANO JEROME Ot Z79.01 ASSISTED (CURRENT) USE OF ANTICOAGULANT 01/03/2020 NEAL DO, [...] JEROME Ot I25.10 ATHSCL HEART DISEASE OF [place] CORONARY 01/03/2020 NEAL DO, JEROME Ot I25.2 OLD MYOCARDIAL INFARCTION 01/03/2020 NEAL DO, JEROME Ot I48.0 PAROXYSMAL ATRIAL FIBRILLATION 01/03/2020 NEAL DO, JEROME Ot I50.23 ACUTE ON CHRONIC SYSTOLIC (CONGESTIVE) H 01/03/2020 NEAL DO, JEROME Ot J10.89 INFLUENZA DUE TO [facility] IDENT INFLUENZA VIR 01/03/2020 NEAL DO, JEROME [...] JEROME Ot Y92.[address] [facility] NON-INSTITUT (PRIVATE 01/03/2020 VAL SERRANO JEROME Ot Z79.01 FIELD ASSOCIATE (CURRENT) USE OF ANTICOAGULANT 01/03/2020 VAL SERRANO [...] JEROME Ot I25.10 ATHSCL HEART DISEASE OF [place] CORONARY 01/03/2020 VAL SERRANO JEROME Ot I25.2 [...] (PRIVATE 01/03/2020 VAL SERRANO JEROME Ot Z79.01 ASSISTED (CURRENT) USE OF ANTICOAGULANT 01/03/2020 VAL SERRANO JEROME Ot Z87.89 1 PERSONAL HISTORY OF NICOTINE DEPENDENCE 01/03/2020 VAL SERRANO JEROME Ot Z95.5 PRESENCE OF CORONARY ANGIOPLASTY IMPLANT 01/03/2020 VAL SERRANO JEROME Ot Z99.81 DEPENDENCE ON SUPPLEMENTAL OXYGEN 01/04/2020 VAL SERRANO JEROME Ot D72.82 9 ELEVATED WHITE BLOOD CELL COUNT, UNSPECI 01/04/2020 VAL SERRANO JEROME Ot E11.9 TYPE 2 [...] JEROME Ot I25.10 ATHSCL HEART DISEASE OF [place] CORONARY 01/04/2020 VAL SERRANO JEROME Ot I25.2 [...] K21.9 GASTRO-ESOPHAGEAL REFLUX DISEASE WITHOUT 01/04/2020 VAL SRERANO JEROME Ot M06.9 RHEUMATOID ARTHRITIS, UNSPECIFIED 01/04/2020 [...] JEROME Ot Y92.[address] [facility] NON-INSTITUT (PRIVATE 01/04/2020 VAL SERRANO JEROME Ot Z79.01 FIELD ASSOCIATE (CURRENT) USE OF ANTICOAGULANT 01/04/2020 VAL SERRANO [...] JEROME Ot I25.10 ATHSCL HEART DISEASE OF [place] CORONARY 01/04/2020 NEAL DO, JEROME Ot I25.2 OLD MYOCARDIAL INFARCTION 01/04/2020 NAEL DO, JEROME Ot I48.0 PAROXYSMAL ATRIAL FIBRILLATION [...] URINARY TRACT INFECTION, SITE NOT SPECIF 01/04/2020 NEAL DO, JEROME Ot R41.0 DISORIENTATION, UNSPECIFIED 01/04/2020 NEAL DO, JEROME Ot R53.81 OTHER MALAISE 01/04/2020 NEAL DO, JEROME Ot S72.01 2A UNSP INTRACAPSULAR FRACTURE OF LEFT FEMU 01/04/2020 NEAL DO, JEROME Ot W07.XX XA FALL FROM CHAIR, INITIAL ENCOUNTER 01/04/2020 JEROME NEAL DO Ot Y92.00 [address] [facility] NON-INSTITUT (PRIVATE 01/04/2020 JEROME NEAL DO Ot Z79.01 FIELD ASSOCIATE (CURRENT) USE OF ANTICOAGULANT 01/04/2020 JEROME NEAL DO Ot Z87.89 1 PERSONAL HISTORY OF NICOTINE DEPENDENCE 01/04/2020 JASIEL NEAL DOI Ot Z95.5 PRESENCE OF CORONARY ANGIOPLASTY IMPLANT 01/04/2020 JASIEL NEAL DOI Ot Z99.81 DEPENDENCE ON SUPPLEMENTAL OXYGEN 04/26/2020 CHAD NOVA, LIBRADO Aguirre Ot S72.012D [facility] INTRACAP FX LEFT FEMUR, SUBS FOR CL Procedures Code Description Performed By Carter rios On [id number] IN SERTION OF INT FIX INTO L [...] mg/dL 0.1-1.0 Serum or plasma alkaline phosphatase jb surement (enzymatic activity/volume) 77 U/L 40-136 Serum [...] mg/dL 0.1-1.0 Serum or plasma alkaline phosphatase jb surement (enzymatic activity/volume) 87 U/L 40-136 Serum [...] - 12/26/17 19:12 CALL POSITIVES (F1 HELP) [facility] NRG FLU RESULT POSITIVE FOR INFLUENZA B [...] culture - 01/01/20 08:45 Bacterial urine culture [id number] NRG COLONY COUNT >100,000/ML NRG SUSCEPTIBILITY SUSCEPTIBILITY REPORTED 01/02 10:45 NRG RAPID ID RAPID ID TEST AT [facility] 01/01 07:20 NRG Complete urinalysis with [...] g/dL 3.2-4.5 CALCIUM CORRECTED 9.7 mg/dL 8.5-10.1 Complete urinalysis with reflex to cultu re - 05/01/20 10:55 Urine color determination YELLOW NRG Urine clarity determination CLEAR NR G Urine pH measurement by test strip 8.5 5-9 Specific gravity of urine by test strip 1.010 1.016-1.022 Urine protein assay by test strip, semi-quantitative NEGATIVE NEGATIVE Urine glucose detection by automated test [...] leukocyte count by microscopy (number/high power field) RARE NRG Bacteria detection in urine sediment by light microsco py TRACE NRG Squamous epithelial cells detection in u rine sediment by light microscopy RARE NRG Crystals detection in urine sediment by light microsco py PRESENT NRG Casts detection in urine sediment by light microscopy NONE NRG Mucus detection in urine sediment by light microscopy NEGATIVE NRG Complete urinalysis with reflex to culture NO NRG Amorphous sediment detection in urine sediment by ligh t microscopy FEW WALDEMAR PHOSPHATE NRG Complete blood count (CBC) with automate d white blood cell (WBC) differential - 05/01/20 11:28 Blood leukocytes automated count (number/volume) 10.2 10*3/uL 4.3-11.0 Blood erythrocytes automated count (number/volume) 4.83 10*6/uL 4.35-5.85 Venous blood hemoglobin measurement (mass/volume) 14.3 g/dL 11.5-16.0 Blood hematocrit (volume fraction) 43 [...] 9.8 [foz_us] 7.4-10.4 Automated blood neutrophils/100 leukocytes 77 % 42-75 Automated blood lymphocytes/100 leukocytes 15 % 12-44 Blood monocytes/100 leukocytes 6 % 0-12 Automated blood eosinophils/100 leukocytes 2 % 0-10 Automated blood basophils/100 leukocytes 1 % 0-10 Blood neutrophils automated count (number/volume) 7.9 10*3 1.8-7.8 Blood lymphocytes automated count (number/volume) 1.5 10*3 1.0-4.0 Blood monocytes automated count (number/volume) 0. 6 10*3 0.0-1.0 Automated eosinophil count 0.2 10*3/uL 0 .0-0.3 Automated blood basophil count (count/volume) 0.1 10*3/uL 0.0-0.1 Comprehensive metabolic panel - 05/01/20 11:28 Serum or plasma sodium measurement (moles/volume) 140 mmol/L 135-145 Serum or plasma potassium measurement (moles/volume) 3.8 mmol/L 3.6-5.0 Serum or plasma chloride measurement (moles/volume) 103 mmol/L 98-107 Carbon dioxide 26 mmol/L 21-32 [...] plasma alkaline phosphatase bj surement (enzymatic activity/volume) 149 U/L 40-136 Serum or plasma aspartate aminotransfera se measurement (enzymatic activity/volume) 28 U/L 5-34 Serum or plasma alanine aminotransferase measurement (enzymatic activity/volume) 26 U/L 0-55 Serum or plasma protein measurement (mass/volume) 7.2 g/dL 6.4-8.2 Serum or plasma albumin measurement (mass/volume) 3.8 g/dL 3.2-4.5 CALCIUM CORRECTED 9.6 mg/dL 8.5-10.1 PT panel in platelet poor plasma by coag ulation assay - 05/01/20 11:28 Prothrombin time (PT) in platelet poor plasma by coagu lation assay 13.8 s 12.2-14.7 INR in platelet poor plasma or blood by coagulation as say 1.0 0.8-1.4 Activated partial thromboplastin time (a PTT) in platelet poor plasma bycoagulation assay - 05/01/20 11:28 Activated partial thromboplastin time (a PTT) in platelet poor plasma bycoagulation assay 30 s 24-35 Fibrin D-dimer FEU measurement in platel et poor plasma (mass/volume) - 05/01/20 11:28 Fibrin D-dimer FEU measurement in platelet poor plasma (mass/volume) 1.57 ug/mL 0.00-0.49 Serum or plasma lithium measurement (mol es/volume) - 05/01/20 11:28 BNP PT 425.4 pg/mL <100.0 Serum or plasma troponin i.cardiac measu rement (mass/volume) - 05/01/20 11:28 Serum or plasma troponin i.cardiac measurement (mass/v olume) < ng/mL <0.028 Capillary blood glucose measurement by g lucometer (mass/volume) - 05/01/20 11:31 Capillary blood glucose measurement by glucometer (mas s/volume) 103 mg/dL 70-110 Methicillin resistant Staphylococcus aur eus (MRSA) screening culture - 05/01/20 21:19 Methicillin resistant Staphylococcus aureus (MRSA) scr eening culture NEG NRG Complete blood count (CBC) with automate d white blood cell (WBC) differential - 05/02/20 03:05 Blood leukocytes automated count (number/volume) 10.6 10*3/uL 4.3-11.0 Blood erythrocytes automated count (number/volume) 5.07 10*6/uL 4.35-5.85 Venous blood hemoglobin measurement (mass/volume) 14.9 g/dL 11.5-16.0 Blood hematocrit (volume fraction) 45 % 35-52 Automated erythrocyte mean corpuscular volume 90 [ foz_us] 80-99 Automated erythrocyte mean corpuscular h emoglobin (mass per erythrocyte) 29 pg 25-34 Automated erythrocyte mean corpuscular h emoglobin concentration measurement (mass/volume) 33 g/dL 32-36 Automated erythrocyte distribution width ratio 14. 1 % 10.0- 14.5 Automated blood platelet count (count/volume) 278 10*3/uL 130-400 Automated blood platelet mean volume measurement 10.4 [foz_us] 7.4-10.4 Automated blood neutrophils/100 leukocytes 69 % 42-75 Automated blood lymphocytes/100 leukocytes 21 % 12-44 Blood monocytes/100 leukocytes 8 % 0-12 Automated blood eosinophils/100 leukocytes 1 % 0-10 Automated blood basophils/100 leukocytes 0 % 0-10 Blood neutrophils automated count (number/volume) 7.4 10*3 1.8-7.8 Blood lymphocytes automated count (number/volume) 2.2 10*3 1.0-4.0 Blood monocytes automated count (number/volume) 0. 9 10*3 0.0-1.0 Automated eosinophil count 0.1 10*3/uL 0 .0-0.3 Automated blood basophil count (count/volume) 0.0 10*3/uL 0.0-0.1 Whole blood basic metabolic panel - 04/17 04/06 03:05 Serum or plasma sodium measurement (moles/volume) 144 mmol/L 135-145 Serum or plasma potassium measurement (moles/volume) 3.9 mmol/L 3.6-5.0 Serum or plasma chloride measurement (moles/volume) 103 mmol/L 98-107 Carbon dioxide 27 mmol/L 21-32 Serum or plasma anion gap determination (moles/volume) 14 mmol/L 5-14 Serum or plasma urea nitrogen measurement (mass/volume ) 17 mg/dL 7-18 Serum or plasma creatinine measurement (mass/volume) 0.85 mg/dL 0.60-1.30 Serum or plasma urea nitrogen/creatinine mass ratio 20 NRG Serum or plasma creatinine measurement w ith calculation of estimated glomerular filtration rate > NRG Serum or plasma glucose measurement (mass/volume) 95 mg/dL 70-105 Serum or plasma calcium measurement (mass/volume) 10.1 mg/dL 8.5-10.1 Serum or plasma phosphate measurement (m ass/volume) - 05/02/20 03:05 Serum or plasma phosphate measurement (mass/volume) 4.4 mg/dL 2.3-4.7 Magnesium - 05/02/20 03:05 Magnesium 1.8 mg/dL 1.6-2.4 Lipid 1996 panel - 05/02/20 03:05 Serum or plasma triglyceride measurement (mass/volume) 142 mg/dL <150 Serum or plasma cholesterol measurement (mass/volume) 180 mg/dL < 200 Serum or plasma cholesterol in HDL measurement (mass/v olume) 52 mg/dL 40-60 Cholesterol in LDL [mass/volume] in serum or plasma by direct assay 117 mg/dL 1-129 Serum or plasma cholesterol in VLDL measurement (mass/ volume) 28 mg/dL 5-40 Complete blood count (CBC) with automate d white blood cell (WBC) differential - 05/03/20 03:14 Blood leukocytes automated count (number/volume) 11.1 10*3/uL 4.3-11.0 Blood erythrocytes automated count (number/volume) 5.07 10*6/uL 4.35-5.85 Venous blood hemoglobin measurement (mass/volume) 14.8 g/dL 11.5-16.0 Blood hematocrit (volume fraction) 46 % 35-52 Automated erythrocyte mean corpuscular volume 90 [ foz_us] 80-99 Automated erythrocyte mean corpuscular h emoglobin (mass per erythrocyte) 29 pg 25-34 Automated erythrocyte mean corpuscular h emoglobin concentration measurement (mass/volume) 32 g/dL 32-36 Automated erythrocyte distribution width ratio 14. 4 % 10.0- 14.5 Automated blood platelet count (count/volume) 290 10*3/uL 130-400 Automated blood platelet mean volume measurement 10.3 [foz_us] 7.4-10.4 Automated blood neutrophils/100 leukocytes 70 % 42-75 Automated blood lymphocytes/100 leukocytes 20 % 12-44 Blood monocytes/100 leukocytes 9 % 0-12 Automated blood eosinophils/100 leukocytes 1 % 0-10 Automated blood basophils/100 leukocytes 0 % 0-10 Blood neutrophils automated count (number/volume) 7.8 10*3 1.8-7.8 Blood lymphocytes automated count (number/volume) 2.2 10*3 1.0-4.0 Blood monocytes automated count (number/volume) 1. 0 10*3 0.0-1.0 Automated eosinophil count 0.1 10*3/uL 0 .0-0.3 Automated blood basophil count (count/volume) 0.1 10*3/uL 0.0-0.1 Whole blood basic metabolic panel - 04/17 05/06 03:14 Serum or plasma sodium measurement (moles/volume) 141 mmol/L 135-145 Serum or plasma potassium measurement (moles/volume) 3.9 mmol/L 3.6-5.0 Serum or plasma chloride measurement (moles/volume) 103 mmol/L 98-107 Carbon dioxide 25 mmol/L 21-32 Serum or plasma anion gap determination (moles/volume) 13 mmol/L 5-14 Serum or plasma urea nitrogen measurement (mass/volume ) 31 mg/dL 7-18 Serum or plasma creatinine measurement (mass/volume) 0.90 mg/dL 0.60-1.30 Serum or plasma urea nitrogen/creatinine mass ratio 34 NRG Serum or plasma creatinine measurement w ith calculation of estimated glomerular filtration rate > NRG Serum or plasma glucose measurement (mass/volume) 120 mg/dL 70-105 Serum or plasma calcium measurement (mass/volume) 9.7 mg/dL 8.5-10.1 Serum or plasma phosphate measurement (m ass/volume) - 05/03/20 03:14 Serum or plasma phosphate measurement (mass/volume) 4.5 mg/dL 2.3-4.7 Magnesium - 05/03/20 03:14 Magnesium 1.9 mg/dL 1.6-2.4 Encounters ACCT No. Visit Date/Time Discharge Status Pt. Type Provider Facility Loc./Unit Complaint [id number] 04/04/2020 10:48:00 23:59:59 CLS Outpatient LIBRADO BONILLA MD [facility] ORTHO [id number] 01/01/2020 09:52:00 14:09:00 DIS Inpatient [facility] 4TH L HIP FX;UTI;INLFUENZA A B;SEPSIS [id number] 11/02/2019 15:43:00 12:00:00 DIS Inpatient [facility] 4TH INFLUENZA A,B;HERPES ZO STER [id number] 10/14/2019 10:20:00 020 11:00:00 DIS Inpatient [facility] IRF CHF MYOPATHY [id number] 10/11/2019 02:41:00 019 10:15:00 DIS Inpatient [facility] 4TH INTRACTABLE VERTIGO;HTN ;CHF;RLL PNEUMONIA [id number] 10/06/2019 23:17:00 019 13:20:00 DIS Inpatient NEAL DO, JEROME [facility] 4TH A-FIB RVR,COPD EXACERBA TION [id number] 02/22/2019 10:30:00 019 23:59:59 CLS Outpatient NEAL DO, JEROME [facility] RAD COUGH [id number] 11/01/2018 23:47:00 019 14:50:00 DIS Inpatient NEAL DO, JEROME [facility] 4TH A-FIB RVR, FLUID OVERLO AD [id number] 03/20/2018 00:14:00 018 02:30:00 DIS Emergency PATRICIA CABAN MD [facility] ER LOW O2 90% FALL 3 TIMES TODAY WHIZZY [id number] 12/26/2017 21:00:00 018 12:40:00 DIS Inpatient ANIKET NOVA, JUN Hobbs [facility] 4TH ACUTE HEART FAILURE HYP OXIA, INFLUENZA B [id number] 04/26/2017 10:15:00 017 23:59:59 CLS Preadmit NEALANGELA SERRANO JEROME [facility] PULM BILAT PNEUMONIA [id number] 04/01/2017 09:00:00 017 00:01:00 DIS Outpatient VAL DO JEROME [facility] PULM BILAT PNEUMONIA [id number] 03/04/2017 07:38:00 017 23:59:59 CLS Outpatient NEAL DO JEROME [facility] RAD N63 [id number] 02/24/2017 12:20:00 017 23:59:59 CLS Outpatient JEWEL THAKKAR DO [facility] RAD R06.00 SOB [id number] 02/08/2017 13:28:00 017 23:59:59 CLS Outpatient ERIC REIS APRN [facility] RT [id number],R06.00 [id number] 12/25/2016 14:37:00 017 11:05:00 DIS Inpatient NEAL DO, JEROME [facility] 4TH PNEUMONIA BILAT A-FIB W /RVR [id number] 12/16/2016 12:27:00 017 11:40:00 DIS Inpatient NEAL DO, JEROME V [facility] 4TH AFIB W/ RVR,RESP FAILUR E,PNEUMONIA [id number] 08/27/2016 05:20:00 016 13:15:00 DIS Inpatient NEAL DO, JEROME V [facility] 4TH LLL PNEUMONIA W/ HYPOXI A; AFIB W/ RVR; HTN [id number] 03/22/2013 13:54:00 013 23:59:59 CLS Outpatient [id number] 05/03/2020 12:41:00 Document Registration [id number] 05/01/2020 12:43:[address] Inpatient JASIEL NEAL [facility] ISCHEMIC;CVA
--- NOTE | 2020-05-03 14:23 | Occupational Ther Daily Note ---
OT Current Status-Daily Note Subjective Pt sitting in recliner, points to bed. Mental Status/Objective Patient Orientation: Non-Verbal/Aphasic Attachments: Arana Catheter, IV ADL-Treatment Pt sitting in recliner. Attempted to have pt complete oral care. Pt holds swab in left hand and attempts to bring to mouth, but is unable to complete task. Pt sit to stand and transferred to EOB with assist x2 for safety. Dependent for sit to supine. Pt repositioned in bed with needs met and spouse present after session. Therapy Code Descriptions/Definitions Functional [place] Measure: 0=Not Assessed/NA 4=Minimal Assistance 1=Total Assistance 5=Supervision or Setup 2=Maximal Assistance 6=Modified [place] 3=Moderate Assistance 7=Complete IndependenceSCALE: Activities may be completed with or without assistive devices. 5-Fdnkkzguvw-ifoevwc completes the activity by him/herself with no assistance from a helper. 5-Set-up or Clean-up Assistance-helper sets up or cleans up; patient completes activity. [place] assists only prior to or following the activity. 4-Supervision or Touching Assistance-helper provides verbal cues and/or touching/steadying and/or contact guard assistance as patient completes activity. Assistance may be provided throughout the activity or intermittently. 3-Partial/Moderate Assistance-helper does LESS THAN HALF the effort. [place] lifts, holds or supports trunk or limbs, but provides less than half the effort. 2-Substantial/Maximal Assistance-helper does MORE THAN HALF the effort. [place] lifts or holds trunk or limbs and provides more than half the effort. 0-Cynhrbine-fwdlso does ALL the effort. Patient does none of the effort to complete the activity. Or, the assistance of 2 or more helpers is required for the patient to complete the activity. If activity was not attempted, code reason: 7-Patient Refused. 9-Not Applicable-not attempted and the patient did not perform the activity before the current illness, exacerbation or injury. 10-Not Attempted due to Environmental Limitations-(lack of equipment, weather restraints, etc.). 88-Not Attempted due to Medical Conditions or Safety Concerns. Oral Hygiene (QC): 1 OT Short Term Goals Short Term Goals Time Frame: May 17, 2020 Shower/bathe self: 2 Upper body dressin Lower body dressin OT Special Effects Person Goals Senior Living Goals Time Frame: May 31, 2020 Eating (QC): 4 Oral Hygiene (QC): 4 Toileting Hygiene (QC): 3 Shower/Bathe Self (QC): 3 Upper Body Dressing (QC): 4 Lower Body Dressing (QC): 3 On/Off Footwear (QC): 3 Additional Goals: 1-Demonstrate ADL Tasks, 2-Verbalize Understanding, 3- ImproveStrength/Rex 1=Demonstrate adherence to instructed precautions during ADL tasks. 2=Patient will verbalize/demonstrate understanding of assistive dev ices/modifications for ADL. 3=Patient will improve strength/tolerance for activity to enable patient to perform ADL's. OT Education/Plan Problem List/Assessment Assessment: Decreased Activ Tolerance, Decreased Safety Aware, Decreased UE Strength, Dependent Transfers, Impaired Bed Mobility, Impaired Coordination, Impaired Funct Balance, Impaired I ADL's, Impaired Self-Care Skills, Visual- Perceptual Deficit Discharge Recommendations Plan/Recommendations: Continue POC Treatment Plan/Plan of Care Patient would benefit from OT for education, treatment and training to promote independence in ADL's, mobility, safety and/or upper extremity function for ADL's. Plan of Care: ADL Retraining, Functional Mobility, Group Exercise/Act as Ind, UE Funct Exercise/Act, UE Neuromus Re-Ed/Coord, Visual/Perceptual Retrain Treatment Duration: May 31, 2020 Frequency: Modified Program (IRF) (01/05) Rehab Potential: Guarded Time/GCodes Start Time: 13:45 Stop Time: 14:00 Total Time Billed (hr/min): 15 Billed Treatment Time 1 visit, ADL(15minutes) BROOKE BUSTOS OT May 03, 2020 14:23
--- NOTE | 2020-05-03 14:53 | ST Cognitive Linguistic Eval ---
Speech Evaluation-General Medical Diagnosis CVA right hemiparesis Onset Date: Apr 30, 2020 Therapy Diagnosis Therapy Diagnosis: Cognitive-communication Referral Referring Physician: Dr. Verde Medical History Pertinent Medical History: Atrial Fib, Arthritis, CAD, COPD, Dementia, HTN, [place], Renal Insufficiency, Rheumatoid Arthritis Reviewed History: Yes Social History Current Living Status: Spouse Speech PLF-Current Status Prior Level of Function Patient lives at home with her where she is assisted with her daily needs. Subjective Patient was nonverbal during the evaluation. She responds with her eye gaze and some gestures. Language Eval: Auditory Comprehends Simple Yes/No Ques: Moderate Indent/Objects Multiple Rao: Moderate Ident/Pics in Multiple Rao: Moderate Follows 1-Step Commands: Moderate Follows Complex Directions: Severe Follows General Conversations: Moderate Language Eval: Verbal Language Completes Spontaneous Greeting: Moderate Produces Auto, Serial Info: Moderate Imitates Simple Words/Phrases: Severe Word Finding: Severe Requests Basic Needs: Moderate Expresses Complex Ideas: Severe Objective Formal/Standardized Tests [facility] Mental Status ([facility]) Unable to complete due to patient's nonverbal state Results Unable to obtain a valid score at this time. Oral Motor/Speech Production Nonverbal Impression Patient is a 74 y/o female who was admitted from ICU due to new onset CVA. Patient is nonverbal at this time. She was able to respond with eye gaze and some gestures. Patient will receive aphasia therapy with goal to improve communication. Speech Patient Assess Expression of Ideas/Wants: Rarely/Never (1) Understanding Verbal Content: Sometimes Understands(2) Brief Interview-Mental Status: No(pt is rarely/never understood) Repetition of Three Words: None (0) Temporal Orientation: Year: No answer (0) Temporal Orientation: Month: No answer (0) Temporal Orientation: Day: Incorrect or No Answer(0) Recall : Wear to say "Sock": No, could not recall (0) Recall : Color: No, could not recall (0) Recall : Bed: No, could not recall (0) Memory/Recall Ability: None of the above were recalled Speech Short Term Goals Short Term Goals Short Term Goals 1) Patient will answer y/n questions related to herself with 80% or greater with minimal cues. 2) Patient will respond to questions related to items/pictures at 80% or greater with minimal cues. Speech Hazard Mitigation Officer Goals Hazard Mitigation Officer Goals Patient will improve communication necessary for safety and daily living tasks with minimal assist. Speech-Plan Patient/Family Goals Patient/Family Goals: Patient's plans are unknown at this time. Treatment Plan Speech Therapy Treatment Plan: Continue Plan of Care Treatment Duration: May 10, 2020 Frequency: 5 times per week Estimated Hrs Per Day: .5 hour per day Rehab Potential: Guarded Barriers to Learning: Recent CVA Pt/Family Agrees to Plan: Yes Safety Risks/Education Teaching Recipient: Patient, Significant Other Teaching Methods: Discussion Response to Teaching: Reinforcement Needed Education Topics Provided: Safety within her room and communication of her wants/needs Time Speech Therapy Time In: 14:00 Speech Therapy Time Out: 14:30 Total Billed Time: 30 Billed Treatment Time 1, YUE Cid May 03, 2020 14:53
--- NOTE | 2020-05-03 15:06 | ST Dysphagia Evaluation ---
Speech Evaluation-General Medical Diagnosis CVA right hemiparesis Onset Date: Apr 30, 2020 Therapy Diagnosis Therapy Diagnosis: Oropharyngeal Dysphagia Precautions Precautions: Aspiration Referral Referring Physician: Dr. Verde Medical History Pertinent Medical History: Atrial Fib, Arthritis, CAD, COPD, Dementia, HTN, [place], Renal Insufficiency, Rheumatoid Arthritis Reviewed History: Yes Social History Current Living Status: Spouse Speech PLF/Current-Dysphagia Prior Level of Function Patient lived at home with her . He assists her with all of her cooking and intake. Subjective Patient was cooperative with the Bedside Dysphagia Evaluation. Cognitive Status Patient Orientation: Unable to Assess, Non-Verbal/Aphasic Oral Motor Skills Dentition: Natural, Tumbled, Stained Current Food Consistancy: Pureed, [place] Liquids Ability to Follow Directions: Fair Oral Expression Ability: Unable Face Facial Symmetry: Asymmetrical Oral-Facial Assessment Oral-Facial Dentition: Normal Labial Seal Description: Reduced ROM, Droops Right, Poor Coordination Smile: Reduced ROM, Droops Right, Poor Coordination Lingual Protrusion: Abnormal Lingual ROM: Abnormal Lingual Strength: Abnormal Pharynx Velopharyngeal Move.: Weak on Right Volitional Dry Swallow: Yes Voluntary Cough: Yes Can Clear Throat Volitionally: Yes Dysphagia Evaluation Consistencies Presented: Thin Liquid, [place] Thick Liquid, Pureed Oral Phase: Anterior Spillage, Unable to Suck Straw Oral phase is grossly within normal range except thin which she experienced anterior leakage. Pharyngeal phase is within normal range for puree and nectar thick liquids. Funct. Velo/Pharyngeal Symptom: Cough After Swallow With thin liquids Dietary Recommendations: Pureed Liquid Recommendations: [place] Consistancy Swallowing Precautions: Alternate Liquids/Solids, Chin Tuck, Decreased Bolus 1/2 Tsp, Liquids from Spoon, No Straw, Small Bites and Sips, Sitting Upright 90 Degrees, Sitting 90 Degrees 30 Post Intake Dysphagia Evaluation Summary Patient was evaluated at bedside for safe oral intake. Patient was placed on Dy sphagia I and nectar consistency liquids yesterday. Due to her moderate decreased oral motor level of function she is not ready to be upgraded at this time. Patient will receive skilled dysphagia therapy for ongoing diet level assessment and compensatory strategies training. Barriers to Learning Recent CVA Speech Short Term Goals Short Term Goals Short Term Goals 1) Patient will answer y/n questions related to herself with 80% or greater with minimal cues. 2) Patient will respond to questions related to items/pictures at 80% or greater with minimal cues. 3) Patient will tolerate least restrictive diet level without s/s of aspiration at 80% or greater. 4) Patient/caregiver will utilize compensatory strategies as trained at 90% or greater with minimal cues. Speech Detention Goals Detention Goals Patient will improve communication necessary for safety and daily living tasks with minimal assist. Patient will maintain adequate nutrition/hydration via safe, effective swallow function. Speech-Plan Patient/Family Goals Patient/Family Goals: Patient's plans are unknown at this time. Treatment Plan Speech Therapy Treatment Plan: Continue Plan of Care Treatment Duration: May 10, 2020 Frequency: 5 times per week Estimated Hrs Per Day: .5 hour per day Rehab Potential: Guarded Barriers to Learning: Recent CVA Pt/Family Agrees to Plan: Yes Safety Risks/Education Teaching Recipient: Patient, Significant Other Teaching Methods: Discussion Response to Teaching: Reinforcement Needed Education Topics Provided: Safety of oral intake and diet level Time Speech Therapy Time In: 14:00 Speech Therapy Time Out: 14:30 Total Billed Time: 30 Billed Treatment Time 1, YUE Jaramillo May 03, 2020 15:06
[2020-05-03 16:00] VITALS: BP 127/89
--- NOTE | 2020-05-03 16:00 | NUR ---
ATTEMPT TO OBTAIN MIDLINE UNSUCCESSFUL X 2. 20 GA HL OBTAINED X 1 ATTEMPT. FLUSHES EASILY. GOOD BLOOD RETURN.
[2020-05-03 16:26] VITALS: BP 153/85
[2020-05-03] MEDS: AA 4.25% W/LYTES IN D5W IV SOL 1,000 ML IV SCH (16:44)
[2020-05-03] MEDS: APIXABAN 5 MG (ELIQUIS) TABLET PO SCH (21:22)
[2020-05-04] MEDS: AA 4.25% W/LYTES IN D5W IV SOL 1,000 ML IV SCH ×2 (01:24→14:03)
[2020-05-04 05:04] VITALS: BP 124/74
[2020-05-04 05:35] LABS: BASOPHILS % (AUTO) 0 % (0-10); EOSINOPHILS # (AUTO) 0.2 10^3/uL (0.0-0.3); EOSINOPHILS % (AUTO) 2 % (0-10); HEMATOCRIT 44 % (35-52); HEMOGLOBIN 14.5 G/DL (11.5-16.0); LYMPHOCYTES # (AUTO) 1.8 X 10^3 (1.0-4.0); LYMPHOCYTES % (AUTO) 13 % (12-44); MEAN CORPUSCULAR HEMOGLOBIN 30 PG (25-34); MEAN CORPUSCULAR HGB CONC 33 G/DL (32-36); MEAN CORPUSCULAR VOLUME 91 FL (80-99); MEAN PLATELET VOLUME 10.4 FL (7.4-10.4); MONOCYTES % (AUTO) 7 % (0-12); NEUTROPHILS # (AUTO) 10.2 X 10^3 (1.8-7.8); NEUTROPHILS % (AUTO) 77 % (42-75); PLATELET COUNT 331 10^3/uL (130-400); RED CELL DISTRIBUTION WIDTH 14.3 % (10.0-14.5); WHITE BLOOD COUNT 13.2 10^3/uL (4.3-11.0)
[2020-05-04 05:50] LABS: ALBUMIN 3.5 GM/DL (3.2-4.5)
[2020-05-04 05:51] LABS: CHLORIDE 106 MMOL/L (98-107); POTASSIUM 4.1 MMOL/L (3.6-5.0); SODIUM 142 MMOL/L (135-145)
[2020-05-04 05:52] LABS: CALCIUM 9.4 MG/DL (8.5-10.1)
[2020-05-04 05:53] LABS: GLUCOSE 124 MG/DL (70-105); TOTAL PROTEIN 7.1 GM/DL (6.4-8.2)
[2020-05-04 05:54] LABS: CARBON DIOXIDE 24 MMOL/L (21-32)
[2020-05-04 05:55] LABS: BILIRUBIN,TOTAL 1.2 MG/DL (0.1-1.0)
[2020-05-04 05:56] LABS: ALKALINE PHOSPHATASE 118 U/L (40-136)
[2020-05-04 05:57] LABS: CREATININE SERUM 0.75 MG/DL (0.60-1.30); GFR ESTIMATED > 60
[2020-05-04 05:58] LABS: BUN/CREATININE RATIO 48
[2020-05-04 06:00] LABS: ALANINE AMINOTRANSFERASE 18 U/L (0-55)
[2020-05-04] MEDS: APIXABAN 5 MG (ELIQUIS) TABLET PO SCH ×2 (08:58→21:49)
[2020-05-04] MEDS: DOCUSATE SODIUM 100 MG (COLACE) CAP PO SCH ×2 (09:06→21:41)
[2020-05-04] MEDS: polyethylene glycoL POWDER 17 GM (MIRALAX) PACK PO SCH ×2 (09:08→21:41)
[2020-05-04] MEDS: SENNA W/DOCUSATE (SENOKOT S) TABLET PO SCH ×2 (09:08→21:49)
--- NOTE | 2020-05-04 10:05 | Occupational Ther Daily Note ---
OT Current Status-Daily Note Subjective Pt. awake. Pt. able to nod "yes" when OT asks if she lives in [place]. Mental Status/Objective Patient Orientation: Unable to Assess ADL-Treatment Therapy Code Descriptions/Definitions Functional [place] Measure: 0=Not Assessed/NA 4=Minimal Assistance 1=Total Assistance 5=Supervision or Setup 2=Maximal Assistance 6=Modified [place] 3=Moderate Assistance 7=Complete IndependenceSCALE: Activities may be completed with or without assistive devices. 1-Wazxqmlppz-tvlszvy completes the activity by him/herself with no assistance from a helper. 5-Set-up or Clean-up Assistance-helper sets up or cleans up; patient completes activity. [place] assists only prior to or following the activity. 4-Supervision or Touching Assistance-helper provides verbal cues and/or touching/steadying and/or contact guard assistance as patient completes activity. Assistance may be provided throughout the activity or intermittently. 3-Partial/Moderate Assistance-helper does LESS THAN HALF the effort. [place] lifts, holds or supports trunk or limbs, but provides less than half the effort. 2-Substantial/Maximal Assistance-helper does MORE THAN HALF the effort. [place] lifts or holds trunk or limbs and provides more than half the effort. 1-Qmxjyjypq-ltuaxj does ALL the effort. Patient does none of the effort to complete the activity. Or, the assistance of 2 or more helpers is required for the patient to complete the activity. If activity was not attempted, code reason: 7-Patient Refused. 9-Not Applicable-not attempted and the patient did not perform the activity before the current illness, exacerbation or injury. 10-Not Attempted due to Environmental Limitations-(lack of equipment, weather restraints, etc.). 88-Not Attempted due to Medical Conditions or Safety Concerns. Other Treatment Pt. in bed with eyes open. Pt. is able to turn eyes and head slightly toward right side when OT enters room. Pt. is able to nod that she lives in [place], but does not verbalize. OT facilitates PROM, AAROM, and AROM to right UE. Pt. is encouraged to perform the movement. Pt. does try each time with cues. OT performs PROM in all planes. Noted increased tone with elbow flexion/extension. Engaged pt. to actively assist with movement, to "push/pull." Pt. does but continually closes eyes. OT prompts pt. throughout to open eyes, and engage in conversation. Pt. falls asleep and all needs are met at bed level. Education OT Patient Education: Correct positioning, Exercise program, Purpose of tx/functional activities, Reviewed precautions, Rehab process Teaching Recipient: Patient Teaching Methods: Demonstration, Discussion Response to Teaching: Unable to Comprehend, Reinforcement Needed OT Short Term Goals Short Term Goals Time Frame: May 17, 2020 Shower/bathe self: 2 Upper body dressin Lower body dressin OT Track Oiler Goals Fdc Goals Time Frame: May 31, 2020 Eating (QC): 4 Oral Hygiene (QC): 4 Toileting Hygiene (QC): 3 Shower/Bathe Self (QC): 3 Upper Body Dressing (QC): 4 Lower Body Dressing (QC): 3 On/Off Footwear (QC): 3 Additional Goals: 1-Demonstrate ADL Tasks, 2-Verbalize Understanding, 3- ImproveStrength/Rex 1=Demonstrate adherence to instructed precautions during ADL tasks. 2=Patient will verbalize/demonstrate understanding of assistive devices/modifications for ADL. 3=Patient will improve strength/tolerance for activity to enable patient to perform ADL's. OT Education/Plan Problem List/Assessment Assessment: Decreased Activ Tolerance, Decreased Safety Aware, Decreased UE Strength, Dependent Transfers, Impaired Bed Mobility, Impaired Cognition, Impaired Coordination, Impaired Funct Balance, Impaired I ADL's, Impaired Self- Care Skills, Restricted Funct UE ROM, Visual-Perceptual Deficit Discharge Recommendations Plan/Recommendations: Continue POC Therapy Discharge Recommendati: 24 Hour Supervision Treatment Plan/Plan of Care Treatment,Training & Education: Yes Patient would benefit from OT for education, treatment and training to promote independence in ADL's, mobility, safety and/or upper extremity function for ADL's. Plan of Care: ADL Retraining, Functional Mobility, Group Exercise/Act as Ind, UE Funct Exercise/Act, UE Neuromus Re-Ed/Coord, Visual/Perceptual Retrain Treatment Duration: May 31, 2020 Frequency: Modified Program (IRF) (01/05) Agreement: Yes Rehab Potential: Fair Time/GCodes Start Time: 09:30 Stop Time: 09:45 Total Time Billed (hr/min): 15 Billed Treatment Time 1, Ex RILEY DUBON OT May 04, 2020 10:05
--- NOTE | 2020-05-04 10:16 | Physical Therapy Daily Note ---
PT Daily Note-Current Subjective Pt in bed asleep upon arrival. ONLINE MERCHANT wakes pt up and explains pt has therapy this am. Pain Numeric Pain Scale: 0-No Pain Location: No Pain Reported Comment: No visual signs from pt regarding pain Mental Status Patient Orientation: Non-Verbal/Aphasic Attachments: Oxygen, Arana Catheter, IV Transfers SCALE: Activities may be completed with or without assistive devices. 0-Tqrmqjdjhg-atrpjwe completes the activity by him/herself with no assistance from a helper. 5-Set-up or Clean-up Assistance-helper sets up or cleans up; patient completes activity. [place] assists only prior to or following the activity. 4-Supervision or Touching Assistance-helper provides verbal cues and/or touching/steadying and/or contact guard assistance as patient completes activity. Assistance may be provided throughout the activity or intermittently. 3-Partial/Moderate Assistance-helper does LESS THAN HALF the effort. [place] lifts, holds or supports trunk or limbs, but provides less than half the effort. 2-Substantial/Maximal Assistance-helper does MORE THAN HALF the effort. [place] lifts or holds trunk or limbs and provides more than half the effort. 1-Simlgjlfg-fbfpow does ALL the effort. Patient does none of the effort to complete the activity. Or, the assistance of 2 or more helpers is required for the patient to complete the activity. If activity was not attempted, code reason: 7-Patient Refused. 9-Not Applicable-not attempted and the patient did not perform the activity before the current illness, exacerbation or injury. 10-Not Attempted due to Environmental Limitations-(lack of equipment, weather restraints, etc.). 88-Not Attempted due to Medical Conditions or Safety Concerns. Weight Bearing Right Lower Extremity: Right Weight Bearing/Tolerated Left Lower Extremity: Left Weight Bearing/Tolerated Exercises Supine Ex: Ankle pumps (20 x2), Heel Slides (20 x2), Short Arc Quads (20 x2), Straight leg raise (20 x2), Hip abd/add (20 x2) Treatments Supine ex completed. At times completed w/ AAROM, mainly PROM though. RN entered room to give medication. After medication given and ex completed, pt head of bed remained elevated, per RN, call light and bedside table w/in reach and all needs met. Assessment Current Status: Fair Progress Pt appears fatigued and flushed. RN in room giving medication and took vitals. PT Short Term Goals Short Term Goals Time Frame: May 25, 2020 Roll Left & Right: 3 Sit to lyin Lying to sitting on side of be: 3 Sit to stand: 3 Chair/gwx-eq-uequf transfer: 3 Toilet transfer: 3 Car transfer: 3 Walk 10 feet: 3 PT Detention Goals Detention Goals PT Detention Goals Time Frame: Jun 08, 2020 Roll Left & Right (QC): 4 Sit to Lying (QC): 4 Lying-Sitting on Side/Bed(QC): 4 Sit to Stand (QC): 4 Chair/Ncb-yl-Vacgy Xfer(QC): 4 Toilet Transfer (QC): 4 Car Transfer (QC): 4 Does the Patient Walk: No and Walking Goal IS indicated Walk 10 feet (QC): 4 Walk 50ft with 2 Turns (QC): 4 Walk 150 ft (QC): 4 Walking 10ft on Uneven Surface: 4 1 Step (curb) (QC): 4 4 Steps (QC): 4 12 Steps (QC): 9 Picking up an Object (QC): 3 Does the Pt use WC or Scooter?: Yes Wheel 50 feet with 2 turns (QC: 4 Type: Manual Wheel 150 feet: 4 PT Plan Problem List Problem List: Functional Strength, ROM Treatment/Plan Treatment Plan: Continue Plan of Care Treatment Plan: Bed Mobility, Concurrent Therapy, Education, Functional Activity Rex, Functional Strength, Group Therapy, Gait, Safety, Therapeutic Exercise, Transfers Treatment Duration: Jun 08, 2020 Frequency: Modified Program (IRF) (01/05) Estimated Hrs Per Day: 1.5 hours per day Patient and/or Family Agrees t: Yes Safety Risks/Education Patient Education: Correct Positioning Teaching Recipient: Patient Teaching Methods: Discussion Response to Teaching: Unable to Return Demonstration Time/GCodes Time In: 0853 Time Out: 0908 Total Billed Treatment Time: 15 Total Billed Treatment 1, Ex (15m) NOLBERTO DELAROSA ONLINE MERCHANT May 04, 2020 10:16
--- NOTE | 2020-05-04 10:47 | Individualized Plan of Care ---
Individualized Plan of Care Rehab Nursing IPOC Order Admission Date May 03, 2020 at 10:40 Current Orders Orders Admission Order(Inpt,Obs,Sdc) (05/03/20 06:17) Vital Signs: Per Unit Policy ( 08,16,00 (05/03/20 06:17) Iker Cai 09,21 (05/03/20 06:17) Sequential Compression Device Q4H (05/03/20 06:17) Manager Advanced-Inpt Rehab Con (05/03/20 06:17) Rehab Nursing Orders-Ipoc (05/03/20 06:17) Physical Therapy Rehab Orders (05/03/20 06:17) Occupational Therapy Rehab Ord (05/03/20 06:17) Speech Therapy Rehab Orders (05/03/20 06:17) Cbc With Automated Diff (05/04/20 06:00) Comprehensive Metabolic Panel (05/04/20 06:00) Intake & Output 06,14,22 (05/03/20 06:17) Precautions (Aru) (05/03/20 06:17) Weekly Weight WEEK (05/03/20 06:17) Rehab-Intensity Of Therapy (05/03/20 06:17) Initiate Admission Nursing Pro .admission (05/03/20 06:17) Alprazolam Tablet (Xanax Tablet) (05/03/20 06:30) Calcium Carbonate Chew Tablet (Antacid C (05/03/20 06:30) Diphenhydramine Tablet (Benadryl Tablet) (05/03/20 06:30) Docusate Sodium Capsule (Colace Capsule) (05/03/20 09:00) Docusate Sodium Capsule (Colace Capsule) (05/03/20 06:30) Bisacodyl Suppository (Dulcolax Supposit (05/03/20 06:30) Lactulose Oral Solution (Enulose Oral So (05/03/20 06:30) Na Phos/Na Biphos Enema (Fleet Enema Justice (05/03/20 06:30) Guaifenesin/Codeine Syrup (Robitussin Ac (05/03/20 06:30) Loperamide Tablet (Imodium Tablet) (05/03/20 06:30) Melatonin Tablet (Melatonin Tablet) (05/03/20 06:30) Polyethylene Glycol Powder Pkt (Miralax (05/03/20 09:00) Ondansetron Oral Dissolve Tab (Zofran (05/03/20 06:30) Senna S Tablet (Senokot S Tablet) (05/03/20 09:00) Initiate Admission Nursing Pro .admission (05/03/20 06:17) Admission Arrival Bed Request (05/03/20 10:40) Code/Resuscitation (05/03/20 11:27) Activity (05/03/20 11:27) Catheter(Urinary) Insert & Ass 03,15 (05/03/20 11:27) Intake & Output 06,14,22 (05/03/20 11:27) Dys1 Pureed (05/03/20 Lunch) Apixaban Tablet (Eliquis Tablet) (05/03/20 21:00) Aa 4.25% W/Lytes In D5w Iv Faina (Clinimix (05/03/20 11:30) Diltiazem Cd 24 Hr Capsule (Cardizem Cd (05/04/20 09:00) Consult Cardiology (05/03/20 11:27) Venous Access Request Order (05/03/20 11:30) Sodium Chloride Flush (Catheter Flush Sy (05/03/20 12:45) Patient Visit (05/03/20 ) Pt Eval Moderate Complexity (05/03/20 ) Functional Activities, Ea 15 (05/03/20 ) Patient Visit (05/03/20 ) Dysphagia Evaluation Std (05/03/20 ) Speech Sound Lang Comp (05/03/20 ) Ambulate 08,12,20 (05/03/20 18:16) Sequential Compression Device Q4H (05/03/20 18:16) Dvt/Vte Risk - Notifiy Physici Q4H (05/03/20 18:16) Patient Visit (05/04/20 ) Exercise Therap, Ea 15 Min (05/04/20 ) Rehab Nursing Orders: Ongoing Assess. of Cognitive Status, Ongoing Assess. of Function Status, Bladder Management, Bladder Scan, Bladder Training, Bowel Manag ement, Bowel Training, Disease Management & Educaiton, DVT Prophylaxis, Fall Prevention, Fluid/Electrolyte/Nutrition Mgmt, Infection Prevention, Medication Management & Education, Management of Risks & Complications, Management of Skin Intergrity, Nutrition Management, Pain Management, Patient/Family Support, Safety Management Intensity of Therapy to be met Patient to be seen: 15 hrs over 7 cons. days PT IPOC Problem List: Functional Strength, ROM Treatment Plan: Continue Plan of Care Bed Mobility, Concurrent Therapy, Education, Functional Activity Rex, Functional Strength, Group Therapy, Gait, Safety, Therapeutic Exercise, Transfers Treatment Duration: Jun 08, 2020 Frequency: Modified Program (IRF) (01/05) Estimated Hrs Per Day: 1.5 hours per day OT IPOC Problems: Decreased Activ Tolerance, Decreased Safety Aware, Decreased UE Strength, Dependent Transfers, Impaired Bed Mobility, Impaired Cognition, Impaired Coordination, Impaired Funct Balance, Impaired I ADL's, Impaired Self- Care Skills, Restricted Funct UE ROM, Visual-Perceptual Deficit OT Treatment, Training and Edu: Yes Plan of Care: ADL Retraining, Functional Mobility, Group Exercise/Act as Ind, UE Funct Exercise/Act, UE Neuromus Re-Ed/Coord, Visual/Perceptual Retrain Treatment Duration: May 31, 2020 Frequency: Modified Program (IRF) (01/05) Estimated Hrs Per Day: .[address] IPOC Speech Therapy Treatment Plan: Continue Plan of Care Treatment Duration: May 10, 2020 Frequency: 5 times per week Estimated Hrs Per Day: .5 hour per day Manager Advanced/Case Mgmt Manager Advanced/Case Managemen: Discharge Planning Dietitian/Cellar Hand Dietitian/Cellar Hand to monitor nutritional status and make changes and/or recommendations as needed and work with speech pathology on dietary upgrades as the occur. 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
--- NOTE | 2020-05-04 10:50 | PM&R Progress Note ---
Subjective HPI/CC On Admission Date Seen by Provider: May 04, 2020 Time Seen by Provider: 06:45 Subjective/Events-last exam Patient reports no major issues Partial aphasia is a challenge for communication Patient tends to respond to me easier since I am her PCP for past 14 years Communicates with her eyes most of the time and nods head subtly Labs ok Tolerating PO pills and nutrition WBC 13k No falls No pain reported Checked meds and labs Conferred with RN Reviewed therapy notes Review of Systems General: Fatigue, Malaise 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: Weakness, Numbness, Incoordination, Change in speech Objective Exam Vital Signs Vital Signs Date Time Temp Pulse Resp B/P (MAP) Pulse Ox O2 Delivery O2 Flow Rate FiO2 05/04/20 09:13 Nasal Cannula 1.00 05/04/20 05:04 36.1 97 18 124/74 (91) 97 Capillary Refill : Less Than 3 Seconds General Appearance: No Apparent Distress, WD/WN, Chronically ill HEENT: PERRL/EOMI, Normal ENT Inspection, Pharynx Normal Neck: Full Range of Motion, Normal Inspection, Non Tender, Supple, Carotid Bruit Respiratory: Chest Non Tender, Lungs Clear, Normal Breath Sounds, No Accessory Muscle Use, No Respiratory Distress Cardiovascular: Regular Rate, Rhythm, No Edema, No Gallop, No JVD, No Murmur, Normal Peripheral Pulses Gastrointestinal: Normal Bowel Sounds, No Organomegaly, No Pulsatile Mass, Non Tender, Soft Back: Normal Inspection, No CVA Tenderness, No Vertebral Tenderness Extremity: Normal Capillary Refill, Normal Inspection, Normal Range of Motion, Non Tender, No Calf Tenderness, No Pedal Edema Neurologic/Psychiatric: Alert, 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 FIM Transfers Therapy Code Descriptions/Definitions Functional [place] Measure: 0=Not Assessed/NA 4=Minimal Assistance 1=Total Assistance 5=Supervision or Setup 2=Maximal Assistance 6=Modified [place] 3=Moderate Assistance 7=Complete IndependenceSCALE: Activities may be completed with or without assistive devices. 0-Viluiwewyt-etltzaw completes the activity by him/herself with no assistance from a helper. 5-Set-up or Clean-up Assistance-helper sets up or cleans up; patient completes activity. [place] assists only prior to or following the activity. 4-Supervision or Touching Assistance-helper provides verbal cues and/or touching/steadying and/or contact guard assistance as patient completes activity. Assistance may be provided throughout the activity or intermittently. 3-Partial/Moderate Assistance-helper does LESS THAN HALF the effort. [place] lifts, holds or supports trunk or limbs, but provides less than half the effort. 2-Substantial/Maximal Assistance-helper does MORE THAN HALF the effort. [place] lifts or holds trunk or limbs and provides more than half the effort. 9-Avcpwgqqd-npiqoj does ALL the effort. Patient does none of the effort to complete the activity. Or, the assistance of 2 or more helpers is required for the patient to complete the activity. If activity was not attempted, code reason: 7-Patient Refused. 9-Not Applicable-not attempted and the patient did not perform the activity before the current illness, exacerbation or injury. 10-Not Attempted due to Environmental Limitations-(lack of equipment, weather restraints, etc.). 88-Not Attempted due to Medical Conditions or Safety Concerns. Roll Left to Right (QC): 1 Sit to Lying (QC): 1 Sit to Stand (QC): 1 Chair/Uke-ig-Pzfps Xfer(QC): 1 Car Transfer (QC): 88 Gait Training Does the Patient Walk?: No and Walking Goal IS indicated Walk 10 feet (QC): 88 Walk 50 ft with 2 Turns(QC): 88 Walk 150 ft (QC): 88 Walking 10ft/uneven surface-QC: 88 Wheelchair Training Does the Pt Use a Wheelchair?: Yes Distance: 300' Wheel 50 ft with 2 turns (QC): 1 Wheel 150 ft (QC): 1 Type of Wheelchair: Manual Stair Training 1 Step (curb) (QC): 88 4 Steps (QC): 88 12 Steps (QC): 88 Balance Picking up an Object (QC): 88 ADL-Treatment Eating (QC): 1 (per nursing report) Oral Hygiene (QC): 1 Shower/Bathe Self (QC): 1 (Pt attempts to wash face with left UE. Dependent to wash all other areas. ) Upper Body Dressing (QC): 1 (Dependent for UE dressing.) Lower Body Dressing (QC): 1 On/Off Footwear (QC): 2 (Dependent to doff/don socks.) Toileting Hygiene (QC): 1 (Pt was incontinent of bowel. Transferred to C with total assist. 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 HTN AF Recent hip fracture Debility COPD h/o delirium severe requiring NH placement for months just recently DC home 6 weeks ago Plan: IRF protocol Home meds Monitor BP Fall risk ST (1) CVA (cerebral vascular accident) (2) EMPHYSEMA, UNSPECIFIED Status: Chronic (3) Denial about severity of illness (4) History of shingles (5) Uncontrolled hypertension Status: Acute (6) Aphasia (7) Debility Status: Acute (8) Hypoxia Status: Chronic (9) Dementia (10) Delirium (11) Memory loss (12) Paroxysmal atrial fibrillation Status: Chronic (13) Myopathy (14) Noncompliance with medication regimen Status: Chronic JEROME NEAL DO May 04, 2020 10:50
--- NOTE | 2020-05-04 14:18 | NUR ---
PATIENT TRASFERRED TO CHAIR VIA TREVA LIFT FOR LUNCH. PATIENT ABLE TO BRING SPOON TO MOUTH. WEIGHTED SPOON ATTEMPTED AND PATIENT ABLE TO FEED SELF BETTER. PATIENT REQUIRES MUCH ENCOURAGEMENT AND INSTRUCTION >75% OF THE TIME. PATIENT STATED TO THIS RN, "I AM SAD." PROVIDED ENOURAGEMENT AND PRESENCE. PATIENT INCONTINENT EARLIER. STAFF TOTAL ASSIST FOR RASHAD CARE AND LINEN CHANGE. PATIENT ENCOURAGED TO USE LEFT HAND AND LEG. FOLLOWS COMMANDS. PATIENT BACK TO BED, TREVA TRANSFER. ALCARE AND ALLEYVN FOR HEELS TO PREVENT BREAKDOWN. HEELS FLOATED AND PATIENT TURNED Q2. PATIENT IS ABLE TO GIVE SELF DRINKS AND REQUIRES REMINDERS TO SLOW DOWN. DAUGHTER IS AT BEDSIDE AND SEEMS VERY SUPPORTIVE AND ENCOURAGING. CONTINUE TO MONITOR. DENIES NEEDS OR C/O AT THIS TIME.
--- NOTE | 2020-05-04 14:29 | Cardiology Progress Note ---
Cardiology SO Progress Note Subjective: No acute cardiac complaints. Objective: I&O/Vital Signs 05/05/20 05/05/20 05:15 09:00 Temp 36.2 Pulse 92 Resp 18 B/P (MAP) 141/65 (90) Pulse Ox 97 O2 Delivery Nasal Cannula Nasal Cannula O2 Flow Rate 1.00 1.00 05/05/20 00:00 Intake Total 480 ml Output Total 375 ml Balance 105 ml Weight (Pounds): 170 Weight (Ounces): 0 Weight (Calculated Kilograms): 77.830022 Constitutional: appears stated age, PERRL, well-developed, well-nourished Respiratory: chest is bilaterally symmetric, lungs clear to auscultation Cardiovascular: irregularly irregular, S1 and S2; No diastolic murmur, No systolic murmur Gastrointestional: soft, audible bowel sounds Extremities: normal range of motion, non-tender, normal inspection, no lower extremity edema bilateral Neurologic/Psychiatric: alert, normal mood/affect Skin: normal color, warm/dry Results/Procedures: Labs A/P: Assessment/Dx: Recent acute stroke, Hypertension, Dementia, Coronary artery disease Chronic atrial fibrillation, moderate to severe mitral regurgitation, Pulmonary hypertension Plan: Recent acute stroke, requiring inpatient rehabilitation. Atrial fibrillation, chronic, rate controlled. Maintained on oral anticoagulation. Continue to monitor. Continue Eliquis Coronary artery disease, history of multiple intervention a total of 4 stents, last cardiac catheterization was done by Dr. Hamilton Chronic Congestive heart failure, previous left ventricular systolic dysfunction, ejection fraction 40-45 percent per echocardiogram done in September 2019, has PA pressure of 45-50 mmHg, mitral and tricuspid regurgitation. Echocardiogram done 05/04/2020 showed normal LVEF with moderate to severe mitral regurgitation. PA pressure 35-40 mmHg. [id number]-[id number] tricuspid regurgitation. Hypertension, monitor blood pressure Hyperlipidemia, managed by primary care physician Diabetes mellitus, followed and managed by primary care physician History of smoking. Quit in 2004. Thank you for your consultation. Please call me if you have any questions. Edwina Bermudez MD, FACP, FACC, FSCAI, FHRS, CCDS Interventional Cardiology Cardiac Electrophysiology Vascular Medicine and Endovascular Interventions Faby BERMUDEZ MD May 04, 2020 14:29
[2020-05-04 16:00] VITALS: BP 120/55
[2020-05-05] MEDS: AA 4.25% W/LYTES IN D5W IV SOL 1,000 ML IV SCH ×2 (02:10→14:34)
[2020-05-05 05:15] VITALS: BP 141/65
[2020-05-05] MEDS: polyethylene glycoL POWDER 17 GM (MIRALAX) PACK PO SCH ×2 (09:13→19:34)
[2020-05-05] MEDS: SENNA W/DOCUSATE (SENOKOT S) TABLET PO SCH ×2 (09:13→19:34)
[2020-05-05] MEDS: DOCUSATE SODIUM 100 MG (COLACE) CAP PO SCH ×2 (09:14→19:34)
[2020-05-05] MEDS: APIXABAN 5 MG (ELIQUIS) TABLET PO SCH ×2 (09:22→21:49)
--- NOTE | 2020-05-05 11:50 | PM&R Progress Note ---
Subjective HPI/CC On Admission Date Seen by Provider: May 05, 2020 Time Seen by Provider: 16:00 Subjective/Events-last exam Patient reports no major issues Partial aphasia is a challenge for communication per nurses but she does speak to me a fair amount Patient tends to respond to me easier since I am her PCP for past 14 years Communicates with her eyes most of the time and nods head subtly at bedside Midline will be placed tomorrow Tolerating PO pills and nutrition fairly well but Clinimix maintained for now WBC 13k and checking labs tomorrow No falls Situational depression noted No pain reported Checked meds and labs Conferred with RN Reviewed therapy notes Review of Systems General: Fatigue, Malaise 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: Weakness, Numbness, Incoordination, Change in speech Objective Exam Vital Signs Vital Signs Date Time Temp Pulse Resp B/P (MAP) Pulse Ox O2 Delivery O2 Flow Rate FiO2 05/06/20 05:04 36.0 101 18 146/89 (108) 98 Nasal Cannula 1.00 Capillary Refill : Less Than 3 Seconds General Appearance: No Apparent Distress, WD/WN, Chronically ill HEENT: PERRL/EOMI, Normal ENT Inspection, Pharynx Normal Neck: Full Range of Motion, Normal Inspection, Non Tender, Supple, Carotid Bruit Respiratory: Chest Non Tender, Lungs Clear, Normal Breath Sounds, No Accessory Muscle Use, No Respiratory Distress Cardiovascular: Regular Rate, Rhythm, No Edema, No Gallop, No JVD, No Murmur, Normal Peripheral Pulses Gastrointestinal: Normal Bowel Sounds, No Organomegaly, No Pulsatile Mass, Non Tender, Soft Back: Normal Inspection, No CVA Tenderness, No Vertebral Tenderness Extremity: Normal Capillary Refill, Normal Inspection, Normal Range of Motion, Non Tender, No Calf Tenderness, No Pedal Edema Neurologic/Psychiatric: Alert, 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 FIM Transfers Therapy Code Descriptions/Definitions Functional [place] Measure: 0=Not Assessed/NA 4=Minimal Assistance 1=Total Assistance 5=Supervision or Setup 2=Maximal Assistance 6=Modified [place] 3=Moderate Assistance 7=Complete IndependenceSCALE: Activities may be completed with or without assistive devices. 1-Xywqskdtgx-crdiyyf completes the activity by him/herself with no assistance from a helper. 5-Set-up or Clean-up Assistance-helper sets up or cleans up; patient completes activity. [place] assists only prior to or following the activity. 4-Supervision or Touching Assistance-helper provides verbal cues and/or touching/steadying and/or contact guard assistance as patient completes activity. Assistance may be provided throughout the activity or intermittently. 3-Partial/Moderate Assistance-helper does LESS THAN HALF the effort. [place] lifts, holds or supports trunk or limbs, but provides less than half the effort. 2-Substantial/Maximal Assistance-helper does MORE THAN HALF the effort. [place] lifts or holds trunk or limbs and provides more than half the effort. 8-Mbcounopy-wsjqpy does ALL the effort. Patient does none of the effort to complete the activity. Or, the assistance of 2 or more helpers is required for the patient to complete the activity. If activity was not attempted, code reason: 7-Patient Refused. 9-Not Applicable-not attempted and the patient did not perform the activity before the current illness, exacerbation or injury. 10-Not Attempted due to Environmental Limitations-(lack of equipment, weather restraints, etc.). 88-Not Attempted due to Medical Conditions or Safety Concerns. Roll Left to Right (QC): 1 Sit to Lying (QC): 1 Sit to Stand (QC): 1 Chair/Gum-gq-Ngexx Xfer(QC): 1 Car Transfer (QC): 88 Gait Training Does the Patient Walk?: No and Walking Goal IS indicated Walk 10 feet (QC): 88 Walk 50 ft with 2 Turns(QC): 88 Walk 150 ft (QC): 88 Walking 10ft/uneven surface-QC: 88 Wheelchair Training Does the Pt Use a Wheelchair?: Yes Distance: 300' Wheel 50 ft with 2 turns (QC): 1 Wheel 150 ft (QC): 1 Type of Wheelchair: Manual Stair Training 1 Step (curb) (QC): 88 4 Steps (QC): 88 12 Steps (QC): 88 Balance Picking up an Object (QC): 88 ADL-Treatment Eating (QC): 1 (per nursing report) Oral Hygiene (QC): 1 Shower/Bathe Self (QC): 1 (Pt attempts to wash face with left UE. Dependent to wash all other areas. ) Upper Body Dressing (QC): 1 (Dependent for UE dressing.) Lower Body Dressing (QC): 1 On/Off Footwear (QC): 2 (Dependent to doff/don socks.) Toileting Hygiene (QC): 1 (Pt was incontinent of bowel. Transferred to [facility] with total assist. 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 HTN AF Recent hip fracture Debility COPD h/o delirium severe requiring NH placement for months just recently DC home 6 weeks ago Plan: IRF protocol Home meds Monitor BP Fall risk ST Continue gentle hydration and increase PO intake in meantime (1) CVA (cerebral vascular accident) (2) EMPHYSEMA, UNSPECIFIED Status: Chronic (3) Denial about severity of illness (4) History of shingles (5) Uncontrolled hypertension Status: Acute (6) Aphasia (7) Debility Status: Acute (8) Hypoxia Status: Chronic (9) Dementia (10) Delirium (11) Memory loss (12) Paroxysmal atrial fibrillation Status: Chronic (13) Myopathy (14) Noncompliance with medication regimen Status: Chronic JEROME NEAL DO May 05, 2020 11:50
--- NOTE | 2020-05-05 14:13 | Cardiology Progress Note ---
Cardiology SO Progress Note Subjective: No acute cardiac complaints. Objective: I&O/Vital Signs 05/05/20 05/05/20 05:15 09:00 Temp 36.2 Pulse 92 Resp 18 B/P (MAP) 141/65 (90) Pulse Ox 97 O2 Delivery Nasal Cannula Nasal Cannula O2 Flow Rate 1.00 1.00 05/05/20 00:00 Intake Total 480 ml Output Total 375 ml Balance 105 ml Weight (Pounds): 170 Weight (Ounces): 0 Weight (Calculated Kilograms): 77.837987 Constitutional: appears stated age, PERRL, well-developed, well-nourished Respiratory: chest is bilaterally symmetric, lungs clear to auscultation Cardiovascular: irregularly irregular, S1 and S2; No diastolic murmur, No systolic murmur Gastrointestional: soft, audible bowel sounds Extremities: normal range of motion, non-tender, normal inspection, no lower extremity edema bilateral Neurologic/Psychiatric: alert, normal mood/affect Skin: normal color, warm/dry A/P: Assessment/Dx: Recent acute stroke, Hypertension, Dementia, Coronary artery disease Chronic atrial fibrillation, moderate to severe mitral regurgitation, Pulmonary hypertension Plan: Recent acute stroke, requiring inpatient rehabilitation. Atrial fibrillation, chronic, rate controlled. Maintained on oral anticoagulation. Continue to monitor. Continue Eliquis Coronary artery disease, history of multiple intervention a total of 4 stents, last cardiac catheterization was done by Dr. Hamilton Chronic Congestive heart failure, previous left ventricular systolic dysfunction, ejection fraction 40-45 percent per echocardiogram done in September 2019, has PA pressure of 45-50 mmHg, mitral and tricuspid regurgitation. Echocardiogram done 05/04/2020 showed normal LVEF with moderate to severe mitral regurgitation. PA pressure 35-40 mmHg. [id number] tricuspid regurgitation. Hypertension, monitor blood pressure Hyperlipidemia, managed by primary care physician Diabetes mellitus, followed and managed by primary care physician History of smoking. Quit in 2004. Thank you for your consultation. Please call me if you have any questions. Edwina Bermudez MD, FACP, FACC, FSCAI, FHRS, CCDS Interventional Cardiology Cardiac Electrophysiology Vascular Medicine and Endovascular Interventions Faby BERMUDEZ MD May 05, 2020 14:13
[2020-05-05 17:07] VITALS: BP 136/85
[2020-05-06] MEDS: AA 4.25% W/LYTES IN D5W IV SOL 1,000 ML IV SCH ×2 (03:05→14:01)
[2020-05-06 05:04] VITALS: BP 146/89
[2020-05-06 05:51] LABS: BASOPHILS % (AUTO) 0 % (0-10); EOSINOPHILS # (AUTO) 0.3 10^3/uL (0.0-0.3); EOSINOPHILS % (AUTO) 3 % (0-10); HEMATOCRIT 41 % (35-52); HEMOGLOBIN 13.2 G/DL (11.5-16.0); LYMPHOCYTES # (AUTO) 1.3 X 10^3 (1.0-4.0); LYMPHOCYTES % (AUTO) 13 % (12-44); MEAN CORPUSCULAR HEMOGLOBIN 30 PG (25-34); MEAN CORPUSCULAR HGB CONC 33 G/DL (32-36); MEAN CORPUSCULAR VOLUME 92 FL (80-99); MONOCYTES # (AUTO) 0.9 X 10^3 (0.0-1.0); MONOCYTES % (AUTO) 9 % (0-12); NEUTROPHILS # (AUTO) 7.9 X 10^3 (1.8-7.8); NEUTROPHILS % (AUTO) 75 % (42-75); PLATELET COUNT 235 10^3/uL (130-400); RED CELL DISTRIBUTION WIDTH 13.6 % (10.0-14.5); WHITE BLOOD COUNT 10.5 10^3/uL (4.3-11.0)
[2020-05-06 06:00] LABS: ALBUMIN 3.3 GM/DL (3.2-4.5)
[2020-05-06 06:01] LABS: CHLORIDE 106 MMOL/L (98-107); POTASSIUM 4.5 MMOL/L (3.6-5.0); SODIUM 139 MMOL/L (135-145)
[2020-05-06 06:02] LABS: CALCIUM 9.1 MG/DL (8.5-10.1)
[2020-05-06 06:03] LABS: GLUCOSE 106 MG/DL (70-105); TOTAL PROTEIN 6.4 GM/DL (6.4-8.2)
[2020-05-06 06:04] LABS: CARBON DIOXIDE 24 MMOL/L (21-32)
[2020-05-06 06:06] LABS: ALKALINE PHOSPHATASE 108 U/L (40-136)
[2020-05-06 06:07] LABS: CREATININE SERUM 0.67 MG/DL (0.60-1.30); GFR ESTIMATED > 60
[2020-05-06 06:08] LABS: BUN/CREATININE RATIO 39
[2020-05-06 06:10] LABS: ALANINE AMINOTRANSFERASE 36 U/L (0-55)
--- NOTE | 2020-05-06 06:44 | PM&R Progress Note ---
Subjective HPI/CC On Admission Date Seen by Provider: May 06, 2020 Time Seen by Provider: 10:00 Subjective/Events-last exam BM yesterday Midline will be placed today after failing to do so on Wednesday because of poor venous access Not eating well or drinking well, started Clinimix of 50 cc an hr. Will also give Lasix of 20mg IV x1 because it does sound like she is a little bit coarse Very poor prognosis overall, it doesn't appear she is recovering any of what had been recovered shortly after the stroke Will evaluate living will and her wishes since this very well could be her baseline from the catastrophic stroke and other comorbidities Palliative care consult Checked meds and labs Conferred with RN Reviewed therapy notes Review of Systems General: Fatigue, Malaise 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: Weakness Objective Exam Vital Signs Vital Signs Date Time Temp Pulse Resp B/P (MAP) Pulse Ox O2 Delivery O2 Flow Rate FiO2 05/06/20 18:00 36.4 87 18 158/86 (110) 96 Nasal Cannula 1.00 Capillary Refill : Less Than 3 Seconds General Appearance: No Apparent Distress, WD/WN, Chronically ill HEENT: PERRL/EOMI, Normal ENT Inspection, Pharynx Normal Neck: Full Range of Motion, Normal Inspection, Non Tender, Supple, Carotid Bruit Respiratory: Chest Non Tender, Lungs Clear, Normal Breath Sounds, No Accessory Muscle Use, No Respiratory Distress Cardiovascular: Regular Rate, Rhythm, No Edema, No Gallop, No JVD, No Murmur, Normal Peripheral Pulses Gastrointestinal: Normal Bowel Sounds, No Organomegaly, No Pulsatile Mass, Non Tender, Soft Back: Normal Inspection, No CVA Tenderness, No Vertebral Tenderness Extremity: Normal Capillary Refill, Normal Inspection, Normal Range of Motion, Non Tender, No Calf Tenderness, No Pedal Edema Neurologic/Psychiatric: Alert, 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 FIM Transfers Therapy Code Descriptions/Definitions Functional [place] Measure: 0=Not Assessed/NA 4=Minimal Assistance 1=Total Assistance 5=Supervision or Setup 2=Maximal Assistance 6=Modified [place] 3=Moderate Assistance 7=Complete IndependenceSCALE: Activities may be completed with or without assistive devices. 5-Ruicjlmkmq-tvsuhhk completes the activity by him/herself with no assistance from a helper. 5-Set-up or Clean-up Assistance-helper sets up or cleans up; patient completes activity. [place] assists only prior to or following the activity. 4-Supervision or Touching Assistance-helper provides verbal cues and/or touching/steadying and/or contact guard assistance as patient completes activity. Assistance may be provided throughout the activity or intermittently. 3-Partial/Moderate Assistance-helper does LESS THAN HALF the effort. [place] lifts, holds or supports trunk or limbs, but provides less than half the effort. 2-Substantial/Maximal Assistance-helper does MORE THAN HALF the effort. [place] lifts or holds trunk or limbs and provides more than half the effort. 3-Qckifyyqz-vyathv does ALL the effort. Patient does none of the effort to complete the activity. Or, the assistance of 2 or more helpers is required for the patient to complete the activity. If activity was not attempted, code reason: 7-Patient Refused. 9-Not Applicable-not attempted and the patient did not perform the activity before the current illness, exacerbation or injury. 10-Not Attempted due to Environmental Limitations-(lack of equipment, weather restraints, etc.). 88-Not Attempted due to Medical Conditions or Safety Concerns. Roll Left to Right (QC): 1 Sit to Lying (QC): 1 Sit to Stand (QC): 1 Chair/Ixs-ds-Fabbc Xfer(QC): 1 Car Transfer (QC): 88 Gait Training Does the Patient Walk?: No and Walking Goal IS indicated Walk 10 feet (QC): 88 Walk 50 ft with 2 Turns(QC): 88 Walk 150 ft (QC): 88 Walking 10ft/uneven surface-QC: 88 Wheelchair Training Does the Pt Use a Wheelchair?: Yes Distance: 300' Wheel 50 ft with 2 turns (QC): 1 Wheel 150 ft (QC): 1 Type of Wheelchair: Manual Stair Training 1 Step (curb) (QC): 88 4 Steps (QC): 88 12 Steps (QC): 88 Balance Picking up an Object (QC): 88 ADL-Treatment Eating (QC): 1 (per nursing report) Oral Hygiene (QC): 1 Shower/Bathe Self (QC): 1 (Pt attempts to wash face with left UE. Dependent to wash all other areas. ) Upper Body Dressing (QC): 1 (Dependent for UE dressing.) Lower Body Dressing (QC): 1 On/Off Footwear (QC): 2 (Dependent to doff/don socks.) Toileting Hygiene (QC): 1 (Pt was incontinent of bowel. Transferred to [facility] [place] with total assist. 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 HTN AF Recent hip fracture Debility COPD h/o delirium severe requiring NH placement for months just recently DC home 6 weeks ago Plan: IRF protocol Home meds Monitor BP Fall risk ST Continue gentle hydration and increase PO intake in meantime 05/06/20: Speech therapy evaluation for dysphagia Calorie count May need pay 2 Palliative care consult Evaluate living will Unsure of how she will progress and improve she's fully dependent (1) CVA (cerebral vascular accident) (2) EMPHYSEMA, UNSPECIFIED Status: Chronic (3) Denial about severity of illness (4) History of shingles (5) Uncontrolled hypertension Status: Acute (6) Aphasia (7) Debility Status: Acute (8) Hypoxia Status: Chronic (9) Dementia (10) Delirium (11) Memory loss (12) Paroxysmal atrial fibrillation Status: Chronic (13) Myopathy (14) Noncompliance with medication regimen Status: Chronic JEROME NEAL DO May 06, 2020 06:44
[2020-05-06] MEDS: polyethylene glycoL POWDER 17 GM (MIRALAX) PACK PO SCH ×2 (09:00→20:24)
[2020-05-06] MEDS: APIXABAN 5 MG (ELIQUIS) TABLET PO SCH ×2 (09:27→20:51)
[2020-05-06] MEDS: SENNA W/DOCUSATE (SENOKOT S) TABLET PO SCH ×2 (09:27→20:51)
[2020-05-06] MEDS: DOCUSATE SODIUM 100 MG (COLACE) CAP PO SCH ×2 (09:27→20:51)
--- NOTE | 2020-05-06 09:47 | Occupational Ther Daily Note ---
OT Current Status-Daily Note Subjective Pt seen in bed, sitting at ~60*. Pt's eyes open, requires cues to maintain eye opening and attention through session. Pt states pain in back intermittently (red spot noticed bilaterally, lotion is applied and shift in weight in bed; pt also states increased pain in LUE (nursing notified of pain and pain addressed). Pt agrees to sessions to focus on increasing functional IND. OT individual session: [id number] OT/ HAND OUTSIDE CUTTER co-treat: [id number]: Co-treat rendered due to decreased ADL status, decreased attention, decreased UE movement and feeding skills. OT addresses fee ding/ UE movement/ adaptive tools and eye tracking as HAND OUTSIDE CUTTER focuses on swallowing/ feeding and attention to task. OT/ PT co-treat: [id number]: Co-treat rendered due to pt's dependent transfers, decreased ADL status, decreased attention/ safety to task, and need for 2 skilled therapists to complete higher functional tasks for pt. OT focuses on ADLs, UE movement, attention to tasks, eye tracking while PT focuses on bed mob, transfers, LB movement. Mental Status/Objective Attachments: Arana Catheter, IV, Oxygen (1L) ADL-Treatment Therapy Code Descriptions/Definitions Functional [place] Measure: 0=Not Assessed/NA 4=Minimal Assistance 1=Total Assistance 5=Supervision or Setup 2=Maximal Assistance 6=Modified [place] 3=Moderate Assistance 7=Complete IndependenceSCALE: Activities may be completed with or without assistive devices. 2-Hlcfcruhsh-thvfvwo completes the activity by him/herself with no assistance from a helper. 5-Set-up or Clean-up Assistance-helper sets up or cleans up; patient completes activity. [place] assists only prior to or following the activity. 4-Supervision or Touching Assistance-helper provides verbal cues and/or touching/steadying and/or contact guard assistance as patient completes activity. Assistance may be provided throughout the activity or intermittently. 3-Partial/Moderate Assistance-helper does LESS THAN HALF the effort. [place] lifts, holds or supports trunk or limbs, but provides less than half the effort. 2-Substantial/Maximal Assistance-helper does MORE THAN HALF the effort. [place] lifts or holds trunk or limbs and provides more than half the effort. 4-Fsaxnbvbh-hekliy does ALL the effort. Patient does none of the effort to complete the activity. Or, the assistance of 2 or more helpers is required for the patient to complete the activity. If activity was not attempted, code reason: 7-Patient Refused. 9-Not Applicable-not attempted and the patient did not perform the activity before the current illness, exacerbation or injury. 10-Not Attempted due to Environmental Limitations-(lack of equipment, weather restraints, etc.). 88-Not Attempted due to Medical Conditions or Safety Concerns. Eating (QC): 3 (mod A scooping food and bringing to mouth. Pt able to swallow with modified diet. Pt requires cues for use of adaptive handle due to decreased LUE movement/ strength/ endurance and tracking food to mouth. Pt requires mod physical cues to place bite into mouth as spoon is placed on R side of mouth by pt. ) Shower/Bathe Self (QC): 1 (Pt completes sponge bath in bed with assist x2 (PT/ OT) for bed mob and completion of jen/ bottom/ back cleaning. Pt able to bring wash cloth to face, unable to follow additional directions. ) Upper Body Dressing (QC): 1 (TD gown donning. ) Lower Body Dressing (QC): 1 (TD for brief and rolling in bed (Ax2)) On/Off Footwear: 1 (socks doffed/ cleaned/ donned TD) Toileting Hygiene (QC): 1 (Pt has BM in brief, cleaned with Ax2, rolls in bed side to side with Ax2 and TD. pt cleaned, jen lotion/ barrier cream applied and new brief donned.) Other Treatment OT individual session: [id number]: Pt seen in bed. Minimal vocalizations u tilized by pt. Pt able to state back hurts. Pt repositioned with pillow under side for weight shift. Pt completes TD for sponge bath (limbs/ face/ chest). PROM completed of RUE in all planes, pt does not c/o pain. LUE AROM completed with max cues for direction following. Pt able to bring wash cloth to face to minimally wash face. Pt requires cues to bring to R side of face. Pt able to state yes/ no, minimal spontaneous words. OT/ HAND OUTSIDE CUTTER co-treat: [id number]: Co-treat rendered due to decreased ADL status, decreased attention, decreased UE movement and feeding skills. OT addresses feeding/ UE movement/ adaptive tools and eye tracking as HAND OUTSIDE CUTTER focuses on swallowing/ feeding and attention to task. Pt completes feeding in bed with HOB elevated. Pt given adaptive tool, completes feeding with LUE with bowel placed to R side of pt. Pt able to initiate scooping (requires max A for filling spoon), initiate bite with cues, requires assist to hit mouth as pt consistently hits R side of mouth. Pt able to hold light weight cup of water, bring to mouth with CGA, and drink with cues; pt requires HAND OUTSIDE CUTTER to bring spoon of water to mouth as pt not able to regulate intake and water spills on pt gown. Pt requires cues for maintaining attention/ eye tracking throughout. OT/ PT co-treat: [id number]: Co-treat rendered due to pt's dependent transfers, decreased ADL status, decreased attention/ safety to task, and need for 2 skilled therapists to complete higher functional tasks for pt. OT focuses on ADLs, UE movement, attention to tasks, eye tracking while PT focuses on bed mob, transfers, LB movement. Pt completes sponge bath (bottom/ jen/ back) in bed with assistx2. Pt rolls with TD. Cleaned thoroughly. Pt requires TD to complete EOB movement. Sits with BUE EOB, OT initiates tricep extension in order to assist sitting balance. Pt requires min cues for eye opening and max A for mouth closure while in sit. Pt requires min-mod A for EOB static sit throughout. Pt left with PT EOB, all needs met, call light in reach. Education OT Patient Education: Correct positioning, Modified ADL techniques, Purpose of tx/functional activities, Safety issues, Transfer techniques Teaching Recipient: Patient Teaching Methods: Demonstration, Discussion Response to Teaching: Verbalize Understanding, Unable to Return Demonstration, Return Demonstration, Unable to Comprehend, Reinforcement Needed OT Short Term Goals Short Term Goals Time Frame: May 17, 2020 Shower/bathe self: 2 Upper body dressin Lower body dressin OT Fpc Goals Fpc Goals Time Frame: May 31, 2020 Eating (QC): 4 Oral Hygiene (QC): 4 Toileting Hygiene (QC): 3 Shower/Bathe Self (QC): 3 Upper Body Dressing (QC): 4 Lower Body Dressing (QC): 3 On/Off Footwear (QC): 3 Additional Goals: 1-Demonstrate ADL Tasks, 2-Verbalize Understanding, 3- ImproveStrength/Rex 1=Demonstrate adherence to instructed precautions during ADL tasks. 2=Patient will verbalize/demonstrate understanding of assistive devices/modifications for ADL. 3=Patient will improve strength/tolerance for activity to enable patient to perform ADL's. OT Education/Plan Problem List/Assessment Assessment: Decreased Activ Tolerance, Decreased Safety Aware, Decreased UE Strength, Dependent Transfers, Impaired Bed Mobility, Impaired Cognition, Impaired Coordination, Impaired Funct Balance, Impaired I ADL's, Impaired Self- Care Skills, Restricted Funct UE ROM, Visual-Perceptual Deficit Discharge Recommendations Plan/Recommendations: Continue POC Therapy Discharge Recommendati: 24 Hour Supervision, Post Acute OT Treatment Plan/Plan of Care Treatment,Training & Education: Yes Patient would benefit from OT for education, treatment and training to promote independence in ADL's, mobility, safety and/or upper extremity function for ADL's. Plan of Care: ADL Retraining, Functional Mobility, Group Exercise/Act as Ind, UE Funct Exercise/Act, UE Neuromus Re-Ed/Coord, Visual/Perceptual Retrain Treatment Duration: May 31, 2020 Frequency: Modified Program (IRF) (01/05) Estimated Hrs Per Day: .5 hour per day Agreement: Yes Rehab Potential: Fair Time/GCodes Start Time: 08:00 Stop Time: 09:30 Total Time Billed (hr/min): 90 Billed Treatment Time OT individual session: [id number] OT/ HAND OUTSIDE CUTTER co-treat: [id number]: Co-treat rendered due to decreased ADL status, decreased attention, decreased UE movement and feeding skills. OT addresses feeding/ UE movement/ adaptive tools and eye tracking as HAND OUTSIDE CUTTER focuses on swallowing/ feeding and attention to task. OT/ PT co-treat: [id number]: Co-treat rendered due to pt's dependent transfers, decreased ADL status, decreased attention/ safety to task, and need for 2 skilled therapists to complete higher functional tasks for pt. OT focuses on ADLs, UE movement, attention to tasks, eye tracking while PT focuses on bed mob, transfers, LB movement. 1, ADL 6 (90) PEÑA NICHOLS OTR May 06, 2020 09:47
--- NOTE | 2020-05-06 10:03 | Physical Therapy Daily Note ---
PT Daily Note-Current Subjective Pt in bed upon arrival with OT and Nurse bedside. Pt is extremely lethargic and had her eyes closed most of tx. Pt has loose, rattling cough throughout tx. Upright position seems to help alleviate this a bit Pain Location: Left Location Body Site: Arm Comment: OT states pt. c/o back discomfort Mental Status Patient Orientation: Person, [place] (whispy voice) Attachments: Oxygen, Arana Catheter Transfers SCALE: Activities may be completed with or without assistive devices. 3-Hjvdaoreza-ywmjmve completes the activity by him/herself with no assistance from a helper. 5-Set-up or Clean-up Assistance-helper sets up or cleans up; patient completes activity. [place] assists only prior to or following the activity. 4-Supervision or Touching Assistance-helper provides verbal cues and/or touching/steadying and/or contact guard assistance as patient completes activity. Assistance may be provided throughout the activity or intermittently. 3-Partial/Moderate Assistance-helper does LESS THAN HALF the effort. [place] lifts, holds or supports trunk or limbs, but provides less than half the effort. 2-Substantial/Maximal Assistance-helper does MORE THAN HALF the effort. [place] lifts or holds trunk or limbs and provides more than half the effort. 0-Bjtxqyexn-tzhdja does ALL the effort. Patient does none of the effort to complete the activity. Or, the assistance of 2 or more helpers is required for the patient to complete the activity. If activity was not attempted, code reason: 7-Patient Refused. 9-Not Applicable-not attempted and the patient did not perform the activity before the current illness, exacerbation or injury. 10-Not Attempted due to Environmental Limitations-(lack of equipment, weather restraints, etc.). 88-Not Attempted due to Medical Conditions or Safety Concerns. Roll Left & Right (QC): 1 Sit to Lying (QC): 1 Lying to Sitting/Side of Bed(Q: 1 Chair/Ppi-kk-Dzxif Xfer(QC): 1 Brielle lift for bed to chair, max assist 1-2 for rolling and sup to sit and sit to sup Weight Bearing Right Lower Extremity: Right Weight Bearing/Tolerated Left Lower Extremity: Left Weight Bearing/Tolerated Gait Training Does the Patient Walk?: No and Walking Goal IS indicated Exercises Supine Ex: Rolling (with max assist and education for positioning etc) Supine Reps: 7 Seated Therapy Exercises: Ankle pumps (HC stretches passive), Long arc quads (Pt attempted LAQ BLE with VC and TC. Pt quads 3-/5. ) Seated Reps: 5 Treatments OT and PT give pt a bed bath as OT focused on bathing and PT focused on rolling side to side and positioning. Pt was cleaned and Brielle sling was placed under her. Pt supine to sit w total dependence x2 and use of Brielle sling to slide and turn pt. Pt worked on sitting balance with Max assist as OT focused on WB through R UE. Pt required OT to hold R hand flat on bed and extend elbow for WB. PT held legs on floor and provided WB. PT massaged pt back while pt worked on sitting balance. Pt able to sit w 1 persons max assist but leans to the R. OT focused on UE positioning/strengthening, bathing, and dressing. PT focused on bed mobility, LE positioning/strengthening, and static sitting balance. Pt trans ferred to recliner with use of Brielle lift and attempted seated LAQ. Pt able to kick both LE, R LE much weaker than L. R LE at 2/5 d/t not able to have full ROM against gravity. Pt positioned in recliner with pillows supporting BUE and pillows under knees w heels floating. Pt left with call light in hand and O2 on. Assessment Current Status: Poor Progress Use of two clinicians d/t pt's weakness, low activity tolerance, poor static balance, impaired mobility, and poor ROM. Throughout tx pt able to answer a few questions and seemed aware of her surroundings. Pt had eyes closed throughout most of tx, needing VC to stay awake. Dependent for all mobility PT Short Term Goals Short Term Goals Time Frame: May 25, 2020 Roll Left & Right: 3 Sit to lyin Lying to sitting on side of be: 3 Sit to stand: 3 Chair/ycn-sb-iwtjy transfer: 3 Toilet transfer: 3 Car transfer: 3 Walk 10 feet: 3 PT Residential Goals [employer] Lab Technician Goals PT Residential Goals Time Frame: Jun 08, 2020 Roll Left & Right (QC): 4 Sit to Lying (QC): 4 Lying-Sitting on Side/Bed(QC): 4 Sit to Stand (QC): 4 Chair/Ppt-tu-Szscc Xfer(QC): 4 Toilet Transfer (QC): 4 Car Transfer (QC): 4 Does the Patient Walk: No and Walking Goal IS indicated Walk 10 feet (QC): 4 Walk 50ft with 2 Turns (QC): 4 Walk 150 ft (QC): 4 Walking 10ft on Uneven Surface: 4 1 Step (curb) (QC): 4 4 Steps (QC): 4 12 Steps (QC): 9 Picking up an Object (QC): 3 Does the Pt use WC or Scooter?: Yes Wheel 50 feet with 2 turns (QC: 4 Type: Manual Wheel 150 feet: 4 PT Plan Problem List Problem List: Activity Tolerance, Functional Strength, Safety, Balance, Transfer, Bed Mobility, ROM Treatment/Plan Treatment Plan: Continue Plan of Care Treatment Plan: Bed Mobility, Concurrent Therapy, Education, Functional Activity Rex, Functional Strength, Group Therapy, Gait, Safety, Therapeutic Exercise, Transfers Treatment Duration: Jun 08, 2020 Frequency: Modified Program (IRF) (01/05) Estimated Hrs Per Day: 1.5 hours per day Patient and/or Family Agrees t: Yes Safety Risks/Education Patient Education: Correct Positioning, Safety Issues Teaching Recipient: Patient, Significant Other Response to Teaching: Unable to Return Demonstration, Reinforcement Needed Time/GCodes Time In: 900 Time Out: 1000 Total Billed Treatment Time: 60 Total Billed Treatment 1, FA x3 (45m), Ex (15m) DANYELLE CALLEJAS BURR PICKER May 06, 2020 10:03
[2020-05-06] MEDS ORDERED: FUROSEMIDE 40 MG/4 ML INJ (LASIX) IVP NR (10:15)
[2020-05-06 10:30] VITALS: BP 131/81
[2020-05-06] MEDS: ALPRAZolam 0.25 MG (XANAX) TAB PO PRN (13:57)
--- NOTE | 2020-05-06 14:26 | Cardiology Progress Note ---
Cardiology SOAP Progress Note Subjective: Non-verbal. Not in acute distress. Objective: I&O/Vital Signs 05/06/20 05/06/20 05:04 10:59 Temp 36.0 Pulse 101 Resp 18 B/P (MAP) 146/89 (108) Pulse Ox 98 O2 Delivery Nasal Cannula Nasal Cannula O2 Flow Rate 1.00 1.00 05/06/20 00:00 Intake Total 1800 ml Output Total 700 ml Balance 1100 ml Weight (Pounds): 170 Weight (Ounces): 0 Weight (Calculated Kilograms): 77.219628 Constitutional: appears stated age, PERRL, well-developed, well-nourished Respiratory: chest is bilaterally symmetric, lungs clear to auscultation Cardiovascular: irregularly irregular, S1 and S2; No diastolic murmur, No systolic murmur Gastrointestional: soft, audible bowel sounds Extremities: normal range of motion, non-tender, normal inspection, no lower extremity edema bilateral Neurologic/Psychiatric: alert, normal mood/affect Skin: normal color, warm/dry Results/Procedures: Labs Laboratory Tests 05/06/20 05:15: White Blood Count 10.5, Red Blood Count 4.42, Hemoglobin 13.2, Hematocrit 41, Mean Corpuscular Volume 92, Mean Corpuscular Hemoglobin 30, Mean Corpuscular Hemoglobin Concent 33, Red Cell Distribution Width 13.6, Platelet Count 235, Mean Platelet Volume 11.0H, Neutrophils (%) (Auto) 75, Lymphocytes (%) (Auto) 13, Monocytes (%) (Auto) 9, Eosinophils (%) (Auto) 3, Basophils (%) (Auto) 0, Neutrophils # (Auto) 7.9H, Lymphocytes # (Auto) 1.3, Monocytes # (Auto) 0.9, Eosinophils # (Auto) 0.3, Basophils # (Auto) 0.0, Sodium Level 139, Potassium Level 4.5, Chloride Level 106, Carbon Dioxide Level 24, Anion Gap 9, Blood Urea Nitrogen 26H, Creatinine 0.67, Estimat Glomerular Filtration Rate > 60, BUN/Creatinine Ratio 39, Glucose Level 106H, Calcium Level 9.1, Corrected Calcium 9.7, Total Bilirubin 1.0, Aspartate Amino Transf (AST/SGOT) 36H, Alanine Aminotransferase (ALT/SGPT) 36, Alkaline Phosphatase 108, B-Type Natriuretic Peptide 166.2H, Total Protein 6.4, Albumin 3.3 A/P: Assessment/Dx: Recent acute stroke, Hypertension, Dementia, Coronary artery disease Chronic atrial fibrillation, moderate to severe mitral regurgitation, Pulmonary hypertension Plan: Recent acute stroke, requiring inpatient rehabilitation. Atrial fibrillation, chronic, rate controlled. Maintained on oral anticoagulation. Continue to monitor. Continue Eliquis Coronary artery disease, history of multiple intervention a total of 4 stents, last cardiac catheterization was done by Dr. Hamilton Chronic Congestive heart failure, previous left ventricular systolic dysfunction, ejection fraction 40-45 percent per echocardiogram done in September 2019, has PA pressure of 45-50 mmHg, mitral and tricuspid regurgitation. Echocardiogram done 05/04/2020 showed normal LVEF with moderate to severe mitral regurgitation. PA pressure 35-40 mmHg. Togf-ml-xmkbvtkh tricuspid regurgitation. Hypertension, monitor blood pressure Hyperlipidemia, managed by primary care physician Diabetes mellitus, followed and managed by primary care physician History of smoking. Quit in 2003. Thank you for your consultation. Please call me if you have any questions. Edwina Bermudez MD, FACP, FACC, FSCAI, FHRS, CCDS Interventional Cardiology Cardiac Electrophysiology Vascular Medicine and Endovascular Interventions Faby BERMUDEZ MD May 06, 2020 14:26
--- NOTE | 2020-05-06 14:49 | Speech Therapy Daily Note ---
Speech Daily Progress Note Subjective Date Seen by Provider: May 06, 2020 Time Seen by Provider: 00:30 Patient pleasant with feeding this am. Patient is noted to answer y/n and simple questions. Objective Patient received co-treatment with ST and OT due to decreased ADL status, decreased attention to task, decreased UE movement and feeding skills. ST focus on swallowing/feeding safety with current diet level of Dysphagia I and nectar consistency liquids. Patient was able to answer y/n and simple questions related to herself with 60% vocalizations. Patient's intake of current diet is noted with decreased pocketing. Patient noted to cough/clear x3 with intake. Assessment Assessment Current Status: Good Progress Treatment Plan Continue Plan of Care Speech Short Term Goals Short Term Goals Short Term Goals 1) Patient will answer y/n questions related to herself with 80% or greater with minimal cues. 2) Patient will respond to questions related to items/pictures at 80% or greater with minimal cues. 3) Patient will tolerate least restrictive diet level without s/s of aspiration at 80% or greater. 4) Patient/caregiver will utilize compensatory strategies as trained at 90% or greater with minimal cues. Speech Manager Infusion Goals Skilled Nursing Goals Patient will improve communication necessary for safety and daily living tasks with minimal assist. Patient will maintain adequate nutrition/hydration via safe, effective swallow function. Speech-Plan Patient/Family Goals Patient/Family Goals: Patient's discharge plans are unknown at this time. Team meeting will discuss the best and safest placement at the time of discharge. Treatment Plan Speech Therapy Treatment Plan: Continue Plan of Care Treatment Duration: May 10, 2020 Frequency: 5 times per week Estimated Hrs Per Day: .5 hour per day Rehab Potential: Fair Barriers to Learning: Patient's recent CVA and prior health issues Safety Risks/Education Teaching Recipient: Patient Teaching Methods: Demonstration, Discussion Response to Teaching: Verbalize Understanding, Return Demonstration, Reinforcement Needed Education Topics Provided: Continued safety of all oral intake Time Speech Therapy Time In: 08:30 Speech Therapy Time Out: 09:00 Total Billed Time: 30 Billed Treatment Time 1PATIENCE BETHANIA ST May 06, 2020 14:49
--- NOTE | 2020-05-06 14:55 | NUR ---
CM/SS ADMISSION Patient was admitted to ARU 05/03/20 from [facility] for CVA, catastrophic. Additional comorbidities are, in part, emphysema, uncontrolled HTN, aphasia, chronic hypoxia, dementia, delirium, memory loss, noncompliance with medication regimen. Patient had been under skilled status at [facility] until 03/07/20 when she returned home with her spouse. Per her daughter Shahida Alvarez, patient was in an improved state where she could ambulate the short distance from bed to bathroom with stand by monitor. They had been utilizing private pay caregivers 6 days per week varied hours and had actually started to back off hours due to patient's progress. Patient will not have any skilled days remaining at this time. She used all 100 Medicare skilled days at [facility], she discharged from there as noted 03/07/20 and admitted here 05/01/20 still in the old benefit period. In order to reset her benefits she would have had to remain well until at least May 05 which she missed by 4 days. Any nursing facility admission will be private pay at this time. [facility] this specific issue. [facility] PHARMACY: [facility]. INSURANCE: Medicare, Time To Cater DME: [employer], home O2 through [facility] in [place], [place]. They do not have a BSC but do have a handicap stool re height. They have suction cup grab bars in the walk-in shower. A shower chair was recommended last ARU stay, unknown if purchased. Therapy team to assess for new assistive device needs due to change in level of functioning and relative to home performance and safety. ADVANCED DIRECTIVE: Healthcare and Financial DPOA completed October 29, 2019, naming her spouse Michael Lee and daughter Shahida Alvarez as agents. BARRIERS TO DISCHARGE PLANNING: Diagnosis/catastrophic stroke and dependent status at present, resources for adequate and total care in the home, no Medicare skilled benefits for community nursing facility making any stay private pay. CONTACTS: Michael Lee, spouse, DPOA [phone] Shahida Alvarez, daughter, DPOA [phone] Lyly Lee, Daughter [place], [place] [phone] Ravi Lee, Son [place], [place] Patient has aphasia, daughter/DPOA Crystal indicates understanding of the purpose and process of weekly patient care conference and that patient first review will be 05/08/20.
--- NOTE | 2020-05-06 15:22 | NUR ---
"RD ASSESSMENT PMHx: RA; COPD; CAD; HTN; HLP; GERD; stroke (04/2020) PT INTERACTION: Pt was awake and pleasant during nutrition assessment. Note pt has dementia, and recently suffered a stroke (04/2020), so pt's answers to diet hx questions were limited. Pt states current appetite is poor. Note avg PO intake 50-75% x2d, per chart review. Note pt had been receiving Clinimix TPN of 4.25% AA/D5W. This provided 340 kcal and 43 g Pro. Pt states some issues with chewing/swallowing food. Pt states no recent issues with nausea or vomiting. Note last BM was 05/05, and pt currently on bowel regimen of colace BID; sennna BID; and miralax BID, per chart review. Note recent 26# wt loss x6mon, per chart review. ABNORMAL NUTRITION-RELATED LAB VALUES LOW: HIGH: BNU 26; glu 106; AST 36 Est. kcal needs: 1500 kcal | 25 kcal/kg Est. Pro needs: 72 g Pro | 0.8 g Pro/kg PES STATEMENT: Inadequate oral intake (NI-2.1) related to loss of appetite | dementia as evidenced by pt interview | avg PO intake 50-75% x2d INTERVENTION: Continue with current diet order of DYS1 Pureed diet, with modifier of [place] Thickened Liquids. Would recommend continuation of TPN to supplement kcal intake. Received dietary consult for Calorie Count. With begin analysis on 05/07. Will continue to follow and reassess as pt needs, intake, and status change. MONITOR/EVALUATE: PO Intake; Plan of Care; Hydration Status; Weight Status; Lab Values Alma Ansari, , RD, LD"
[2020-05-06 18:00] VITALS: BP 158/86
[2020-05-06] MEDS: MELATONIN 3 MG TABLET PO PRN (20:52)
[2020-05-06] MEDS: APAP 325 MG/10.15 ML LIQ (TYLENOL) UDC PO PRN (20:52)
[2020-05-07] MEDS: AA 4.25% W/LYTES IN D5W IV SOL 1,000 ML IV SCH ×2 (02:53→15:25)
[2020-05-07 06:00] VITALS: BP 113/58
--- NOTE | 2020-05-07 08:35 | NUR ---
"PO CALORIE COUNT: Est kcal needs: 1500 kcal | 25 kcal/kg Est Pro needs: 72 g Pro | 0.8 g Pro/kg 05/06 Lunch: 396 kcal | 9 g Pro /20 Dinner: 272 kcal | 10 g Pro Total: 668 kcal (45% of est needs) | 19 g Pro (26% of est needs) Note this does not include Clinimix, which provides 340 kcal and 43 g Pro per 1000ml S. Rowdy Ansari, MS, RD, LD"
[2020-05-07] MEDS: SENNA W/DOCUSATE (SENOKOT S) TABLET PO SCH ×2 (09:08→21:12)
[2020-05-07] MEDS: polyethylene glycoL POWDER 17 GM (MIRALAX) PACK PO SCH ×2 (09:08→21:12)
[2020-05-07] MEDS: DOCUSATE SODIUM 100 MG (COLACE) CAP PO SCH ×2 (09:08→21:12)
[2020-05-07] MEDS: APIXABAN 5 MG (ELIQUIS) TABLET PO SCH ×2 (09:08→21:05)
--- NOTE | 2020-05-07 09:34 | PM&R Progress Note ---
Subjective HPI/CC On Admission Date Seen by Provider: May 07, 2020 Time Seen by Provider: 09:30 Subjective/Events-last exam Caloric count in process Arana is in place will consult Dr. Mckinney regarding possibly discontinuing that but she could have neurogenic bladder from the stroke Had a large BM this morning Crushing her pills and she is taking those okay Midline is working well Clinimix at 50 CCs an hour because she really is not taking enough in Palliative care consult for peg tube vs. Pt may very well require hospice Checked meds and labs Conferred with RN Reviewed therapy notes Review of Systems General: Fatigue, Malaise 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: Weakness, Incoordination Objective Exam Vital Signs Vital Signs Date Time Temp Pulse Resp B/P (MAP) Pulse Ox O2 Delivery O2 Flow Rate FiO2 05/07/20 18:31 36.9 82 18 136/78 (97) 96 Nasal Cannula 1.00 Capillary Refill : Less Than 3 Seconds General Appearance: No Apparent Distress, WD/WN, Chronically ill HEENT: PERRL/EOMI, Normal ENT Inspection, Pharynx Normal Neck: Full Range of Motion, Normal Inspection, Non Tender, Supple, Carotid Bruit Respiratory: Chest Non Tender, Lungs Clear, Normal Breath Sounds, No Accessory Muscle Use, No Respiratory Distress Cardiovascular: Regular Rate, Rhythm, No Edema, No Gallop, No JVD, No Murmur, Normal Peripheral Pulses Gastrointestinal: Normal Bowel Sounds, No Organomegaly, No Pulsatile Mass, Non Tender, Soft Back: Normal Inspection, No CVA Tenderness, No Vertebral Tenderness Extremity: Normal Capillary Refill, Normal Inspection, Normal Range of Motion, Non Tender, No Calf Tenderness, No Pedal Edema Neurologic/Psychiatric: Alert, Abnormal facing baster jumpbasting II-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 FIM Transfers Therapy Code Descriptions/Definitions Functional [place] Measure: 0=Not Assessed/NA 4=Minimal Assistance 1=Total Assistance 5=Supervision or Setup 2=Maximal Assistance 6=Modified [place] 3=Moderate Assistance 7=Complete IndependenceSCALE: Activities may be completed with or without assistive devices. 2-Cvfbqjfkee-tcduzzi completes the activity by him/herself with no assistance from a helper. 5-Set-up or Clean-up Assistance-helper sets up or cleans up; patient completes activity. [place] assists only prior to or following the activity. 4-Supervision or Touching Assistance-helper provides verbal cues and/or touching/steadying and/or contact guard assistance as patient completes activity. Assistance may be provided throughout the activity or intermittently. 3-Partial/Moderate Assistance-helper does LESS THAN HALF the effort. [place] lifts, holds or supports trunk or limbs, but provides less than half the effort. 2-Substantial/Maximal Assistance-helper does MORE THAN HALF the effort. [place] lifts or holds trunk or limbs and provides more than half the effort. 5-Aikmvaedq-cxnorn does ALL the effort. Patient does none of the effort to complete the activity. Or, the assistance of 2 or more helpers is required for the patient to complete the activity. If activity was not attempted, code reason: 7-Patient Refused. 9-Not Applicable-not attempted and the patient did not perform the activity before the current illness, exacerbation or injury. 10-Not Attempted due to Environmental Limitations-(lack of equipment, weather restraints, etc.). 88-Not Attempted due to Medical Conditions or Safety Concerns. Roll Left to Right (QC): 1 Sit to Lying (QC): 1 Sit to Stand (QC): 1 Chair/Gez-mq-Hpiyg Xfer(QC): 1 Car Transfer (QC): 88 Gait Training Does the Patient Walk?: No and Walking Goal IS indicated Walk 10 feet (QC): 88 Walk 50 ft with 2 Turns(QC): 88 Walk 150 ft (QC): 88 Walking 10ft/uneven surface-QC: 88 Wheelchair Training Does the Pt Use a Wheelchair?: Yes Distance: 300' Wheel 50 ft with 2 turns (QC): 1 Wheel 150 ft (QC): 1 Type of Wheelchair: Manual Stair Training 1 Step (curb) (QC): 88 4 Steps (QC): 88 12 Steps (QC): 88 Balance Picking up an Object (QC): 88 ADL-Treatment Eating (QC): 3 (mod A scooping food and bringing to mouth. Pt able to swallow with modified diet. Pt requires cues for use of adaptive handle due to decreased LUE movement/ strength/ endurance and tracking food to mouth. Pt requires mod physical cues to place bite into mouth as spoon is placed on R side of mouth by pt. ) Oral Hygiene (QC): 1 Shower/Bathe Self (QC): 1 (Pt completes sponge bath in bed with assist x2 (PT/ OT) for bed mob and completion of jen/ bottom/ back cleaning. Pt able to bring wash cloth to face, unable to follow additional directions. ) Upper Body Dressing (QC): 1 (TD gown donning. ) Lower Body Dressing (QC): 1 (TD for brief and rolling in bed (Ax2)) On/Off Footwear (QC): 1 (socks doffed/ cleaned/ donned TD) Toileting Hygiene (QC): 1 (Pt has BM in brief, cleaned with Ax2, rolls in bed side to side with Ax2 and TD. pt cleaned, jen lotion/ barrier cream applied and new brief donned.) Assessment/Plan Assessment and Plan Assess & Plan/Chief Complaint Assessment: 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 Lord regarding Arana catheter discontinuation Continue crushed pills Continue Clinimix Living will and palliative care consult (1) CVA (cerebral vascular accident) (2) EMPHYSEMA, UNSPECIFIED Status: Chronic (3) Denial about severity of illness (4) History of shingles (5) Uncontrolled hypertension Status: Acute (6) Aphasia (7) Debility Status: Acute (8) Hypoxia Status: Chronic (9) Dementia (10) Delirium (11) Memory loss (12) Paroxysmal atrial fibrillation Status: Chronic (13) Myopathy (14) Noncompliance with medication regimen Status: Chronic JEROME NEAL DO May 07, 2020 09:34
--- NOTE | 2020-05-07 10:51 | NUR ---
PALLIATIVE CARE RN in to see patient and talk to her and her . She is sitting in chair upon arrival and alert, did not assess orientation. Although she did say she had a stroke but this could have been repeating what I said. She appeared to answer questions appropriately but had a very weak voice and her speech drifted into a mumble after a few words. reports she has been eating well and would consider a PEG tube if this was indicated. I told them I would follow along in her rehab to determine the best POC for discharge. She will need to improve significantly for a home discharge unless the choice is for Hospice. She is not yet ready for this at this time.
--- NOTE | 2020-05-07 11:02 | Physical Therapy Daily Note ---
PT Daily Note-Current Subjective Patient in pre tx, has already been working with OT, doesn't seem to indicate she has pain except for on her left elbow which also has a bandage on it. Will be co-treating with OT due to poor patient mobility, strength, endurance, sitting and standing balance, the need to coordinate uE and LE during activity. Appearance Patient in recliner post tx with nurse call, phone, tray, all needs met, legs elevated and in the room. Mental Status Patient Orientation: Person, [place] Attachments: Oxygen, Arana Catheter, IV Transfers SCALE: Activities may be completed with or without assistive devices. 9-Jwgijbjajh-acvchxz completes the activity by him/herself with no assistance from a helper. 5-Set-up or Clean-up Assistance-helper sets up or cleans up; patient completes activity. [place] assists only prior to or following the activity. 4-Supervision or Touching Assistance-helper provides verbal cues and/or touching/steadying and/or contact guard assistance as patient completes activity. Assistance may be provided throughout the activity or intermittently. 3-Partial/Moderate Assistance-helper does LESS THAN HALF the effort. [place] lifts, holds or supports trunk or limbs, but provides less than half the effort. 2-Substantial/Maximal Assistance-helper does MORE THAN HALF the effort. [place] lifts or holds trunk or limbs and provides more than half the effort. 4-Hesrpqwwi-chgmcb does ALL the effort. Patient does none of the effort to complete the activity. Or, the assistance of 2 or more helpers is required for the patient to complete the activity. If activity was not attempted, code reason: 7-Patient Refused. 9-Not Applicable-not attempted and the patient did not perform the activity before the current illness, exacerbation or injury. 10-Not Attempted due to Environmental Limitations-(lack of equipment, weather restraints, etc.). 88-Not Attempted due to Medical Conditions or Safety Concerns. Sit to Stand (QC): 2 Chair/Roe-zb-Ppcfq Xfer(QC): 2 In room finished up bathing UE, needs assist with sitting balance. Went to therapy gym, stood in parallel bars x3, took a few steps forward during one of those with max assist (about 5'). Transferred to therapy table worked on sitting balance, limits of stability training. Transferred back to WC, max assist 120', patient encouraged to assist, she can assist with pulling forward with both feet but needs constant cues to stay on task. Transferred to recliner. Weight Bearing Right Lower Extremity: Right Weight Bearing/Tolerated Left Lower Extremity: Left Weight Bearing/Tolerated Treatments sitting balance training, standing, ambulation, transfers, WC mobility. PT performed functional mobility, sitting balance during bathing and dressing, WC mobility, OT performed bathing and dressing, UE positioning and safety during activity, assist with sitting balance training. Assessment Current Status: Poor Progress poor balance, fall risk, cues to focus PT Short Term Goals Short Term Goals Time Frame: May 25, 2020 Roll Left & Right: 3 Sit to lyin Lying to sitting on side of be: 3 Sit to stand: 3 Chair/jen-ch-uqacf transfer: 3 Toilet transfer: 3 Car transfer: 3 Walk 10 feet: 3 PT Prison Goals Service Observer Goals PT Prison Goals Time Frame: Jun 08, 2020 Roll Left & Right (QC): 4 Sit to Lying (QC): 4 Lying-Sitting on Side/Bed(QC): 4 Sit to Stand (QC): 4 Chair/Sfo-ri-Ycldb Xfer(QC): 4 Toilet Transfer (QC): 4 Car Transfer (QC): 4 Does the Patient Walk: No and Walking Goal IS indicated Walk 10 feet (QC): 4 Walk 50ft with 2 Turns (QC): 4 Walk 150 ft (QC): 4 Walking 10ft on Uneven Surface: 4 1 Step (curb) (QC): 4 4 Steps (QC): 4 12 Steps (QC): 9 Picking up an Object (QC): 3 Does the Pt use WC or Scooter?: Yes Wheel 50 feet with 2 turns (QC: 4 Type: Manual Wheel 150 feet: 4 PT Plan Problem List Problem List: Activity Tolerance, Functional Strength, Safety, Balance, Gait, Transfer, Bed Mobility, ROM Treatment/Plan Treatment Plan: Continue Plan of Care Treatment Plan: Bed Mobility, Concurrent Therapy, Education, Functional Activity Rex, Functional Strength, Group Therapy, Gait, Safety, Therapeutic Exercise, Transfers Treatment Duration: Jun 08, 2020 Frequency: Modified Program (IRF) (01/05) Estimated Hrs Per Day: 1.5 hours per day Patient and/or Family Agrees t: Yes Safety Risks/Education Patient Education: Gait Training, Transfer Techniques, Correct Positioning, W/C Management, Safety Issues Teaching Recipient: Patient Teaching Methods: Demonstration, Discussion Response to Teaching: Reinforcement Needed Time/GCodes Time In: 0900 Time Out: 1000 Total Billed Treatment Time: 60 Total Billed Treatment 1 visit FA 60' co-treated with OT for 45 min. XIAO COLEY PT May 07, 2020 11:02
--- NOTE | 2020-05-07 11:18 | Occupational Ther Daily Note ---
OT Current Status-Daily Note Subjective Pt in bed, agrees to therapy. Pt verbalizes throughout treatment, but speech is difficult to understand. Pt does state she is not having any pain. OT individual treatment [id number] Co-treat with PT Mental Status/Objective Attachments: Arana Catheter, IV, Oxygen ADL-Treatment Therapy Code Descriptions/Definitions Functional [place] Measure: 0=Not Assessed/NA 4=Minimal Assistance 1=Total Assistance 5=Supervision or Setup 2=Maximal Assistance 6=Modified [place] 3=Moderate Assistance 7=Complete IndependenceSCALE: Activities may be completed with or without assistive devices. 8-Igxuygjjns-vwtpxnt completes the activity by him/herself with no assistance f rom a helper. 5-Set-up or Clean-up Assistance-helper sets up or cleans up; patient completes activity. [place] assists only prior to or following the activity. 4-Supervision or Touching Assistance-helper provides verbal cues and/or touching/steadying and/or contact guard assistance as patient completes activity. Assistance may be provided throughout the activity or intermittently. 3-Partial/Moderate Assistance-helper does LESS THAN HALF the effort. [place] lifts, holds or supports trunk or limbs, but provides less than half the effort. 2-Substantial/Maximal Assistance-helper does MORE THAN HALF the effort. [place] lifts or holds trunk or limbs and provides more than half the effort. 9-Qtleyzhxb-tyrkmj does ALL the effort. Patient does none of the effort to complete the activity. Or, the assistance of 2 or more helpers is required for the patient to complete the activity. If activity was not attempted, code reason: 7-Patient Refused. 9-Not Applicable-not attempted and the patient did not perform the activity before the current illness, exacerbation or injury. 10-Not Attempted due to Environmental Limitations-(lack of equipment, weather restraints, etc.). 88-Not Attempted due to Medical Conditions or Safety Concerns. Shower/Bathe Self (QC): 1 On/Off Footwear: 1 Toileting Hygiene (QC): 1 Toilet Transfer (QC): 1 OT individual treatment. Pt resting in bed. ROM completed right UE to promote increased functional ROM/strength. Pt has minimal active movement and difficulty following cues for ROM. PROM completed in all planes. Increased tone noted at elbow. Pt keeps eyes closed during most of time during UE activity. Pt reports need to have BM. Dependent for supine to sit. Pt dependent for transfer to BSC. Pt leans to right and requires assist for balance/posture while seated on BSC. Assist x2 required to complete toileting hygiene and to don clean brief. Transfer to w/c with total assist. Co-treat with PT secondary to pt's dependent transfers, decreased ADL status, decreased attention/ safety to task, and need for 2 skilled therapists to compl ete higher functional tasks. OT focusing on ADLs completion, UE movement/management, and safety. PT focusing on transfers, balance, and lower body movement. Sponge bath completed while seated in w/c. Pt able to wash face, but requires assist for all other areas. Dependent to don hospital gown and socks. To therapy gym via w/c. Pt stood in parallel bars x3 trials with max assist. Rest breaks between trials. Pt able to take few steps in parallel bars with max assist. Pt requires assist to advance right LE. Transfer to mat to work on sitting balance. Pt leans to right and requires assist for posture and balance. Attempted to use mirror for visual feedback, but pt does not keep eyes open or attend to mirror even with multiple cues. Pt sitting in w/c with PT pres ent after session. OT Short Term Goals Short Term Goals Time Frame: May 17, 2020 Shower/bathe self: 2 Upper body dressin Lower body dressin OT Mcc Goals Mcc Goals Time Frame: May 31, 2020 Eating (QC): 4 Oral Hygiene (QC): 4 Toileting Hygiene (QC): 3 Shower/Bathe Self (QC): 3 Upper Body Dressing (QC): 4 Lower Body Dressing (QC): 3 On/Off Footwear (QC): 3 Additional Goals: 1-Demonstrate ADL Tasks, 2-Verbalize Understanding, 3- ImproveStrength/Rxe 1=Demonstrate adherence to instructed precautions during ADL tasks. 2=Patient will verbalize/demonstrate understanding of assistive devices/modifications for ADL. 3=Patient will improve strength/tolerance for activity to enable patient to perform ADL's. OT Education/Plan Discharge Recommendations Plan/Recommendations: Continue POC Treatment Plan/Plan of Care Patient would benefit from OT for education, treatment and training to promote independence in ADL's, mobility, safety and/or upper extremity function for ADL's. Plan of Care: ADL Retraining, Functional Mobility, Group Exercise/Act as Ind, UE Funct Exercise/Act, UE Neuromus Re-Ed/Coord, Visual/Perceptual Retrain Treatment Duration: May 31, 2020 Frequency: Modified Program (IRF) (01/05) Estimated Hrs Per Day: .5 hour per day Agreement: Yes Rehab Potential: Fair Time/GCodes Start Time: 08:30 Stop Time: 09:45 Total Time Billed (hr/min): 75 Billed Treatment Time 1 visit, EX(15minutes), ADLx2(30minutes), FAx2(30minutes) Co-treat with PT 45minutes BROOKE BUSTOS OT May 07, 2020 11:18
--- NOTE | 2020-05-07 13:49 | Physical Therapy Daily Note ---
PT Daily Note-Current Subjective Patient in bed pre tx, voices no complaints of pain. Patient verbalizes some stuff but is too quiet to hear and she is drowsy and cannot speak more clearly even when encouraged to. Appearance Patient in bed post tx with nurse call, phone, tray, all needs met, laying on left side with pillow support, SCD's on. Mental Status Patient Orientation: Confused, Unable to Assess Transfers SCALE: Activities may be completed with or without assistive devices. 0-Tpdtpeyiis-mmlgrtr completes the activity by him/herself with no assistance from a helper. 5-Set-up or Clean-up Assistance-helper sets up or cleans up; patient completes activity. [place] assists only prior to or following the activity. 4-Supervision or Touching Assistance-helper provides verbal cues and/or touching/steadying and/or contact guard assistance as patient completes activity. Assistance may be provided throughout the activity or intermittently. 3-Partial/Moderate Assistance-helper does LESS THAN HALF the effort. [place] lifts, holds or supports trunk or limbs, but provides less than half the effort. 2-Substantial/Maximal Assistance-helper does MORE THAN HALF the effort. [place] lifts or holds trunk or limbs and provides more than half the effort. 1-Mdhmsjmab-mqciyh does ALL the effort. Patient does none of the effort to complete the activity. Or, the assistance of 2 or more helpers is required for the patient to complete the activity. If activity was not attempted, code reason: 7-Patient Refused. 9-Not Applicable-not attempted and the patient did not perform the activity before the current illness, exacerbation or injury. 10-Not Attempted due to Environmental Limitations-(lack of equipment, weather restraints, etc.). 88-Not Attempted due to Medical Conditions or Safety Concerns. Weight Bearing Right Lower Extremity: Right Weight Bearing/Tolerated Left Lower Extremity: Left Weight Bearing/Tolerated Exercises Supine Ex: Ankle pumps, Heel Slides, Short Arc Quads, Straight leg raise, Hip abd/add Supine Reps: 15 (AAROM) Treatments LE exercise Assessment Current Status: Poor Progress constant cues to stay on task PT Short Term Goals Short Term Goals Time Frame: May 25, 2020 Roll Left & Right: 3 Sit to lyin Lying to sitting on side of be: 3 Sit to stand: 3 Chair/pma-tt-vxfgj transfer: 3 Toilet transfer: 3 Car transfer: 3 Walk 10 feet: 3 PT Longterm Goals Longterm Goals PT Longterm Goals Time Frame: Jun 08, 2020 Roll Left & Right (QC): 4 Sit to Lying (QC): 4 Lying-Sitting on Side/Bed(QC): 4 Sit to Stand (QC): 4 Chair/Uke-vs-Rqdps Xfer(QC): 4 Toilet Transfer (QC): 4 Car Transfer (QC): 4 Does the Patient Walk: No and Walking Goal IS indicated Walk 10 feet (QC): 4 Walk 50ft with 2 Turns (QC): 4 Walk 150 ft (QC): 4 Walking 10ft on Uneven Surface: 4 1 Step (curb) (QC): 4 4 Steps (QC): 4 12 Steps (QC): 9 Picking up an Object (QC): 3 Does the Pt use WC or Scooter?: Yes Wheel 50 feet with 2 turns (QC: 4 Type: Manual Wheel 150 feet: 4 PT Plan Problem List Problem List: Activity Tolerance, Functional Strength, Safety, Balance, Gait, Transfer, Bed Mobility, ROM Treatment/Plan Treatment Plan: Continue Plan of Care Treatment Plan: Bed Mobility, Concurrent Therapy, Education, Functional Activity Rex, Functional Strength, Group Therapy, Gait, Safety, Therapeutic Exercise, Transfers Treatment Duration: Jun 08, 2020 Frequency: Modified Program (IRF) (01/05) Estimated Hrs Per Day: 1.5 hours per day Patient and/or Family Agrees t: Yes Safety Risks/Education Patient Education: Correct Positioning, Safety Issues Teaching Recipient: Patient Teaching Methods: Demonstration, Discussion Response to Teaching: Reinforcement Needed Time/GCodes Time In: 1330 Time Out: 1345 Total Billed Treatment Time: 15 Total Billed Treatment 1 visit EX XIAO MOONEY PT May 07, 2020 13:48
--- NOTE | 2020-05-07 15:28 | Speech Therapy Daily Note ---
Speech Daily Progress Note Subjective Date Seen by Provider: May 07, 2020 Time Seen by Provider: 00:30 Patient sitting in chair with present. They had just visited with the pharmacy care coordinator when I entered. Objective Patient was able to answer y/n and simple questions with 50% given 25% repetitions. Assessment Assessment Current Status: Fair Progress Treatment Plan Continue Plan of Care Speech Short Term Goals Short Term Goals Short Term Goals 1) Patient will answer y/n questions related to herself with 80% or greater with minimal cues. 2) Patient will respond to questions related to items/pictures at 80% or greater with minimal cues. 3) Patient will tolerate least restrictive diet level without s/s of aspiration at 80% or greater. 4) Patient/caregiver will utilize compensatory strategies as trained at 90% or greater with minimal cues. Speech Cloth Finisher Goals Cloth Finisher Goals Patient will improve communication necessary for safety and daily living tasks with minimal assist. Patient will maintain adequate nutrition/hydration via safe, effective swallow function. Speech-Plan Patient/Family Goals Patient/Family Goals: Patient's discharge will be determined by progress and rehab team with family members. Treatment Plan Speech Therapy Treatment Plan: Continue Plan of Care Treatment Duration: May 10, 2020 Frequency: 5 times per week Estimated Hrs Per Day: .5 hour per day Rehab Potential: Fair Barriers to Learning: Patient's recent CVA Pt/Family Agrees to Plan: Yes Safety Risks/Education Teaching Recipient: Patient, Significant Other Teaching Methods: Demonstration, Discussion Response to Teaching: Verbalize Understanding, Return Demonstration, Reinforcement Needed Education Topics Provided: Continued safety and communication of wants/needs Time Speech Therapy Time In: 10:45 Speech Therapy Time Out: 11:15 Total Billed Time: 30 Billed Treatment Time PATIENCE Garza [address] May 07, 2020 15:28
[2020-05-07] MEDS ORDERED: ASPIRIN 81 MG CHEW (CHILDREN'S ASA) PO ONE (15:30)
--- NOTE | 2020-05-07 16:11 | Progress Note - Cardiology ---
Cardiology SOAP Progress Note Subjective: Not able to provide any history or respond verbally Objective: I&O/Vital Signs 05/07/20 05/07/20 06:00 09:00 Temp 35.6 Pulse 67 Resp 18 B/P (MAP) 113/58 (76) Pulse Ox 94 O2 Delivery Nasal Cannula Nasal Cannula O2 Flow Rate 1.00 1.00 05/07/20 00:00 Intake Total 720 ml Output Total 1600 ml Balance -880 ml Weight (Pounds): 170 Weight (Ounces): 0 Weight (Calculated Kilograms): [id number] Constitutional: appears stated age, PERRL, well-developed, well-nourished Respiratory: chest is bilaterally symmetric, lungs clear to auscultation Cardiovascular: irregularly irregular, S1 and S2; No diastolic murmur, No systolic murmur Gastrointestional: soft, audible bowel sounds Extremities: no lower extremity edema bilateral Neurologic/Psychiatric: alert, other (non-verbal; right sided weakness) Skin: No rash on exposed areas, No ulcerations on exposed areas Results/Procedures: Labs Laboratory Tests 05/06/20 05:15 A/P: Assessment: Acute CVA (had been off OAC 3 days prior to event) Atrial fibrillation, chronic OAC with Eliquis Coronary artery disease, history of multiple intervention a total of 4 stents, last cardiac catheterization was done by Dr. Hamilton - details unknown Chronic systolic/diastolic congestive heart failure, previous left ventricular systolic dysfunction, ejection fraction 40-45% per echocardiogram done in 2018, has PA pressure of 45-50 mmHg, mitral and tricuspid regurgitation. Echocardiogram done 05/04/2020 showed normal LVEF with moderate to severe mitral regurgitation. PA pressure 35-40 mmHg. Otbj-gc-jvpojseq tricuspid regurgitation. Hypertension Hyperlipidemia Diabetes mellitus, followed and managed by primary care physician History of smoking. Quit in 2003. Plan: I examined the patient and reviewed the records of this hospitalization Continue current regimen Monitor lab Start low dose ASA d/t known h/o CAD Management of stroke per MK Cantrell MD FACP FAC CCDS May 07, 2020 16:11
--- NOTE | 2020-05-07 17:00 | NUR ---
PT CONTINUES TO COUGH AND ATTEMPT TO CLEAR THROAT. VOICE RASPY. RESP 22, O2 SAT 97%. COUGH MED OFFERED, PT WANTS TO TAKE, GIVEN, PO, WITH THICKENER ADDED.
[2020-05-07 18:31] VITALS: BP 136/78
[2020-05-07] MEDS: MELATONIN 3 MG TABLET PO PRN (21:05)
[2020-05-07] MEDS: APAP 325 MG/10.15 ML LIQ (TYLENOL) UDC PO PRN (21:05)
[2020-05-08] MEDS: AA 4.25% W/LYTES IN D5W IV SOL 1,000 ML IV SCH ×2 (03:54→20:24)
[2020-05-08 06:00] VITALS: BP 125/64
--- NOTE | 2020-05-08 08:34 | NUR ---
"PO CALORIE COUNT: Est kcal needs: 1500 kcal | 25 kcal/kg Est Pro needs: 72 g Pro | 0.8 g Pro/kg 05/06 Lunch: 396 kcal | 9 g Pro 05/06 Dinner: 272 kcal | 10 g Pro 05/06 Total: 668 kcal (45% of est needs) | 19 g Pro (26% of est needs) 05/07 Breakfast: 206 kcal | 9 g Pro 05/07 Lunch: 323 kcal | 10 g Pro 05/07 Dinner: no ticket left 05/07 Total: 529 kcal (35% of est needs) | 19 g Pro (26% of est needs) Note this does not include Clinimix, which provides 340 kcal and 43 g Pro per 1000ml S. Rowdy Ansari, MS, RD, LD"
--- NOTE | 2020-05-08 08:52 | PM&R Progress Note ---
Subjective HPI/CC On Admission Date Seen by Provider: May 08, 2020 Time Seen by Provider: 09:45 Subjective/Events-last exam Reviewed caloric intake, she will need a peg tube Family aware of everything and it appears they want everything done They do not want to consider hospice at this time Peg tube will be placed, will inquire which surgeon she wants Arana catheter was discontinued and will monitor for retention Checked meds and labs Conferred with RN Reviewed therapy notes Review of Systems General: Fatigue, Malaise 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: Weakness, Incoordination Objective Exam Vital Signs Vital Signs Date Time Temp Pulse Resp B/P (MAP) Pulse Ox O2 Delivery O2 Flow Rate FiO2 05/08/20 20:10 Nasal Cannula 1.00 05/08/20 19:23 37.0 82 18 140/80 (100) 97 Capillary Refill : Less Than 3 Seconds General Appearance: No Apparent Distress, WD/WN, Chronically ill HEENT: PERRL/EOMI, Normal ENT Inspection, Pharynx Normal Neck: Full Range of Motion, Normal Inspection, Non Tender, Supple, Carotid Br uit Respiratory: Chest Non Tender, Lungs Clear, Normal Breath Sounds, No Accessory Muscle Use, No Respiratory Distress Cardiovascular: Regular Rate, Rhythm, No Edema, No Gallop, No JVD, No Murmur, Normal Peripheral Pulses Gastrointestinal: Normal Bowel Sounds, No Organomegaly, No Pulsatile Mass, Non Tender, Soft Back: Normal Inspection, No CVA Tenderness, No Vertebral Tenderness Extremity: Normal Capillary Refill, Normal Inspection, Normal Range of Motion, Non Tender, No Calf Tenderness, No Pedal Edema Neurologic/Psychiatric: Alert, Abnormal manager clinic II-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 FIM Transfers Therapy Code Descriptions/Definitions Functional [place] Measure: 0=Not Assessed/NA 4=Minimal Assistance 1=Total Assistance 5=Supervision or Setup 2=Maximal Assistance 6=Modified [place] 3=Moderate Assistance 7=Complete IndependenceSCALE: Activities may be completed with or without assistive devices. 2-Kfahbvrqtk-bbkokmv completes the activity by him/herself with no assistance from a helper. 5-Set-up or Clean-up Assistance-helper sets up or cleans up; patient completes activity. [place] assists only prior to or following the activity. 4-Supervision or Touching Assistance-helper provides verbal cues and/or touching/steadying and/or contact guard assistance as patient completes activity. Assistance may be provided throughout the activity or intermittently. 3-Partial/Moderate Assistance-helper does LESS THAN HALF the effort. [place] lifts, holds or supports trunk or limbs, but provides less than half the effort. 2-Substantial/Maximal Assistance-helper does MORE THAN HALF the effort. [place] lifts or holds trunk or limbs and provides more than half the effort. 3-Ubcbvjlth-mjjfmj does ALL the effort. Patient does none of the effort to complete the activity. Or, the assistance of 2 or more helpers is required for the patient to complete the activity. If activity was not attempted, code reason: 7-Patient Refused. 9-Not Applicable-not attempted and the patient did not perform the activity before the current illness, exacerbation or injury. 10-Not Attempted due to Environmental Limitations-(lack of equipment, weather restraints, etc.). 88-Not Attempted due to Medical Conditions or Safety Concerns. Roll Left to Right (QC): 1 Sit to Lying (QC): 1 Sit to Stand (QC): 2 Chair/Agg-qo-Cccgd Xfer(QC): 2 Car Transfer (QC): 88 Gait Training Does the Patient Walk?: No and Walking Goal IS indicated Walk 10 feet (QC): 88 Walk 50 ft with 2 Turns(QC): 88 Walk 150 ft (QC): 88 Walking 10ft/uneven surface-QC: 88 Wheelchair Training Does the Pt Use a Wheelchair?: Yes Distance: 300' Wheel 50 ft with 2 turns (QC): 1 Wheel 150 ft (QC): 1 Type of Wheelchair: Manual Stair Training 1 Step (curb) (QC): 88 4 Steps (QC): 88 12 Steps (QC): 88 Balance Picking up an Object (QC): 88 ADL-Treatment Eating (QC): 3 (mod A scooping food and bringing to mouth. Pt able to swallow with modified diet. Pt requires cues for use of adaptive handle due to decreased LUE movement/ strength/ endurance and tracking food to mouth. Pt requires mod physical cues to place bite into mouth as spoon is placed on R side of mouth by pt. ) Oral Hygiene (QC): 1 Shower/Bathe Self (QC): 1 Upper Body Dressing (QC): 1 (TD gown donning. 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 Lord regarding Arana catheter discontinuation Continue crushed pills Continue Clinimix Living will and palliative care consult 05/08/20: Reconsult Dr. Lord since she is not ready for palliative care Discontinued Catheter monitor for retention Bowels are a bit loose hold laxatives Peg tube will be required so will consult general surgery on that (1) CVA (cerebral vascular accident) (2) EMPHYSEMA, UNSPECIFIED Status: Chronic (3) Denial about severity of illness (4) History of shingles (5) Uncontrolled hypertension Status: Acute (6) Aphasia (7) Debility Status: Acute (8) Hypoxia Status: Chronic (9) Dementia (10) Delirium (11) Memory loss (12) Paroxysmal atrial fibrillation Status: Chronic (13) Myopathy (14) Noncompliance with medication regimen Status: Chronic JEROME NEAL DO May 08, 2020 08:52
--- NOTE | 2020-05-08 09:27 | Physical Therapy Daily Note ---
PT Daily Note-Current Subjective Pt laying Supine in bed upon arrival. Pt agrees to PT. Pain Location: No Pain Reported Mental Status Patient Orientation: Person, Place, [place] Attachments: Oxygen, Arana Catheter, IV Transfers SCALE: Activities may be completed with or without assistive devices. 1-Rbioluujfj-thdmolt completes the activity by him/herself with no assistance from a helper. 5-Set-up or Clean-up Assistance-helper sets up or cleans up; patient completes activity. [place] assists only prior to or following the activity. 4-Supervision or Touching Assistance-helper provides verbal cues and/or touching/steadying and/or contact guard assistance as patient completes activity. Assistance may be provided throughout the activity or intermittently. 3-Partial/Moderate Assistance-helper does LESS THAN HALF the effort. [place] li fts, holds or supports trunk or limbs, but provides less than half the effort. 2-Substantial/Maximal Assistance-helper does MORE THAN HALF the effort. [place] lifts or holds trunk or limbs and provides more than half the effort. 5-Pfcvhaurc-bjfoby does ALL the effort. Patient does none of the effort to complete the activity. Or, the assistance of 2 or more helpers is required for the patient to complete the activity. If activity was not attempted, code reason: 7-Patient Refused. 9-Not Applicable-not attempted and the patient did not perform the activity before the current illness, exacerbation or injury. 10-Not Attempted due to Environmental Limitations-(lack of equipment, weather restraints, etc.). 88-Not Attempted due to Medical Conditions or Safety Concerns. Lying to Sitting/Side of Bed(Q: 2 Sit to Stand (QC): 2 Chair/Mqj-tl-Nkiet Xfer(QC): 2 Weight Bearing Right Lower Extremity: Right Weight Bearing/Tolerated Left Lower Extremity: Left Weight Bearing/Tolerated Treatments Skill of 2 clinicians needed for decreased balance, activity tolerance and transfers/bed mobility. Pt transfers from bed to EOB then to Shower chair. Pt showers then returns to room to dress and transfers to recliner. Pt resting with all needs met at end of Rx. PT works on transfers and increased LE strengthening through standing balance while OT works ADLs and hand placement. Assessment Current Status: Fair Progress Pt demonstrates improved sit to stand transfer although still Max A as well as length of standing has improved. Pt becomes tearful when Dr Verde mentions possibility of needing feeding tube. Nurse aware. PT Short Term Goals Short Term Goals Time Frame: May 25, 2020 Roll Left & Right: 3 Sit to lyin Lying to sitting on side of be: 3 Sit to stand: 3 Chair/fbo-ni-pnaxq transfer: 3 Toilet transfer: 3 Car transfer: 3 Walk 10 feet: 3 PT Paper Products Machine Operator Goals Paper Products Machine Operator Goals PT Halfway Goals Time Frame: Jun 08, 2020 Roll Left & Right (QC): 4 Sit to Lying (QC): 4 Lying-Sitting on Side/Bed(QC): 4 Sit to Stand (QC): 4 Chair/Nkf-va-Stmzn Xfer(QC): 4 Toilet Transfer (QC): 4 Car Transfer (QC): 4 Does the Patient Walk: No and Walking Goal IS indicated Walk 10 feet (QC): 4 Walk 50ft with 2 Turns (QC): 4 Walk 150 ft (QC): 4 Walking 10ft on Uneven Surface: 4 1 Step (curb) (QC): 4 4 Steps (QC): 4 12 Steps (QC): 9 Picking up an Object (QC): 3 Does the Pt use WC or Scooter?: Yes Wheel 50 feet with 2 turns (QC: 4 Type: Manual Wheel 150 feet: 4 PT Plan Problem List Problem List: Activity Tolerance, Functional Strength, Safety, Balance, Gait, Transfer, Bed Mobility Treatment/Plan Treatment Plan: Continue Plan of Care Treatment Plan: Bed Mobility, Concurrent Therapy, Education, Functional Activity Rex, Functional Strength, Group Therapy, Gait, Safety, Therapeutic Exercise, Transfers Treatment Duration: Jun 08, 2020 Frequency: Modified Program (IRF) (01/05) Estimated Hrs Per Day: 1.5 hours per day Patient and/or Family Agrees t: Yes Safety Risks/Education Patient Education: Transfer Techniques, Correct Positioning, Safety Issues Teaching Recipient: Patient Teaching Methods: Discussion Response to Teaching: Reinforcement Needed Time/GCodes Time In: 800 Time Out: 915 Total Billed Treatment Time: 75 Total Billed Treatment 1, FA x5 (75m) KLARISSA RITCHIE PTA May 08, 2020 09:26
[2020-05-08] MEDS: APIXABAN 5 MG (ELIQUIS) TABLET PO SCH ×2 (09:37→21:18)
[2020-05-08] MEDS: ALPRAZolam 0.25 MG (XANAX) TAB PO PRN (09:37)
[2020-05-08] MEDS: ASPIRIN 81 MG CHEW (CHILDREN'S ASA) PO SCH (09:37)
[2020-05-08] MEDS: SENNA W/DOCUSATE (SENOKOT S) TABLET PO SCH ×2 (09:38→21:18)
[2020-05-08] MEDS: DOCUSATE SODIUM 100 MG (COLACE) CAP PO SCH ×2 (09:38→19:27)
[2020-05-08] MEDS: polyethylene glycoL POWDER 17 GM (MIRALAX) PACK PO SCH ×2 (09:38→19:28)
[2020-05-08] MEDS ORDERED: PATIENT MAY USE OWN MED,SINGLE MED PO SCH (09:45)
--- NOTE | 2020-05-08 10:28 | Speech Therapy Daily Note ---
Speech Daily Progress Note Subjective Date Seen by Provider: May 08, 2020 Time Seen by Provider: 00:30 Patient was sitting up in her recliner watching television with by her side when I entered her room. Objective Patient demo answering y/n and short answers at 60% with 30% repetitions given. Assessment Assessment Current Status: Fair Progress Treatment Plan Continue Plan of Care Speech Short Term Goals Short Term Goals Short Term Goals 1) Patient will answer y/n questions related to herself with 80% or greater with minimal cues. 2) Patient will respond to questions related to items/pictures at 80% or greater with minimal cues. 3) Patient will tolerate least restrictive diet level without s/s of aspiration at 80% or greater. 4) Patient/caregiver will utilize compensatory strategies as trained at 90% or greater with minimal cues. Speech [facility] Goals [facility] Goals Patient will improve communication necessary for safety and daily living tasks with minimal assist. Patient will maintain adequate nutrition/hydration via safe, effective swallow function. Speech-Plan Patient/Family Goals Patient/Family Goals: Patient's discharge information will be discussed today at the weekly Medicare mtg. Treatment Plan Speech Therapy Treatment Plan: Continue Plan of Care Treatment Duration: May 10, 2020 Frequency: 5 times per week Estimated Hrs Per Day: .5 hour per day Rehab Potential: Fair Barriers to Learning: Patient's new onset CVA Pt/Family Agrees to Plan: Yes Safety Risks/Education Teaching Recipient: Patient, Significant Other Teaching Methods: Demonstration, Discussion Response to Teaching: Verbalize Understanding, Return Demonstration, Reinforcement Needed Education Topics Provided: Continued communication of wants/needs Time Speech Therapy Time In: 10:00 Speech Therapy Time Out: 10:30 Total Billed Time: 30 Billed Treatment Time PATIENCE Garza [address] May 08, 2020 10:28
--- NOTE | 2020-05-08 10:55 | Occupational Ther Daily Note ---
OT Current Status-Daily Note Subjective Pt agreeable to treatment this morning. Has no c/o pain. Mental Status/Objective Attachments: Arana Catheter, IV, Oxygen ADL-Treatment Therapy Code Descriptions/Definitions Functional [place] Measure: 0=Not Assessed/NA 4=Minimal Assistance 1=Total Assistance 5=Supervision or Setup 2=Maximal Assistance 6=Modified [place] 3=Moderate Assistance 7=Complete IndependenceSCALE: Activities may be completed with or without assistive devices. 3-Lryessfkcq-iojyjao completes the activity by him/herself with no assistance from a helper. 5-Set-up or Clean-up Assistance-helper sets up or cleans up; patient completes activity. [place] assists only prior to or following the activity. 4-Supervision or Touching Assistance-helper provides verbal cues and/or touching/steadying and/or contact guard assistance as patient completes activity. Assistance may be provided throughout the activity or intermittently. 3-Partial/Moderate Assistance-helper does LESS THAN HALF the effort. [place] lifts, holds or supports trunk or limbs, but provides less than half the effort. 2-Substantial/Maximal Assistance-helper does MORE THAN HALF the effort. [place] lifts or holds trunk or limbs and provides more than half the effort. 0-Snmmsixua-ugeigo does ALL the effort. Patient does none of the effort to complete the activity. Or, the assistance of 2 or more helpers is required for the patient to complete the activity. If activity was not attempted, code reason: 7-Patient Refused. 9-Not Applicable-not attempted and the patient did not perform the activity before the current illness, exacerbation or injury. 10-Not Attempted due to Environmental Limitations-(lack of equipment, weather restraints, etc.). 88-Not Attempted due to Medical Conditions or Safety Concerns. Shower/Bathe Self (QC): 1 (Bathing completed while seated on rolling shower chair. Pt used left UE to partially wash chest and abdomen, but required assist for all other areas. ) Upper Body Dressing (QC): 1 (Pt dependent to thread bilateral UE into nightgown, warehouse puller head, and pull down in back. Pt does not assist with task.) Lower Body Dressing (QC): 1 (Assist x2 to don brief and stand to pull up) On/Off Footwear: 1 (Total assist to doff/don socks.) Co-treat with PT secondary need for 2 skilled clinicians to address impaired mobility, strength, activity tolerance, and ADL functioning. OT focusing on ADLs, UE management, and safety. PT focusing on transfers, mobility, and balance during functional tasks. Pt supine to sit with max assist. Pt performed transfer EOB-> shower chair with max assist. To shower via rolling shower chair. Seated shower completed with total assist. Dependent for dressing tasks. Pt transferred to recliner chair with max assist. Fatigues quickly with activity. Pt sitting in recliner chair with needs met and spouse present after session. OT Short Term Goals Short Term Goals Time Frame: May 17, 2020 Shower/bathe self: 2 Upper body dressin Lower body dressin OT [facility] Goals Public Relations Goals Time Frame: May 31, 2020 Eating (QC): 4 Oral Hygiene (QC): 4 Toileting Hygiene (QC): 3 Shower/Bathe Self (QC): 3 Upper Body Dressing (QC): 4 Lower Body Dressing (QC): 3 On/Off Footwear (QC): 3 Additional Goals: 1-Demonstrate ADL Tasks, 2-Verbalize Understanding, 3- ImproveStrength/Rex 1=Demonstrate adherence to instructed precautions during ADL tasks. 2=Patient will verbalize/demonstrate understanding of assistive devices/modifications for ADL. 3=Patient will improve strength/tolerance for activity to enable patient to perform ADL's. OT Education/Plan Discharge Recommendations Plan/Recommendations: Continue POC Treatment Plan/Plan of Care Patient would benefit from OT for education, treatment and training to promote independence in ADL's, mobility, safety and/or upper extremity function for ADL's. Plan of Care: ADL Retraining, Functional Mobility, Group Exercise/Act as Ind, UE Funct Exercise/Act, UE Neuromus Re-Ed/Coord, Visual/Perceptual Retrain Treatment Duration: May 31, 2020 Frequency: Modified Program (IRF) (01/05) Estimated Hrs Per Day: .5 hour per day Agreement: Yes Rehab Potential: Fair Time/GCodes Start Time: 08:00 Stop Time: 09:15 Total Time Billed (hr/min): 75 Billed Treatment Time 1 visit, ADLx5(75minutes) Co-treat with PT 75 minutes BROOKE BUSTOS OT May 08, 2020 10:55
--- NOTE | 2020-05-08 11:39 | CONSULTATION REPORT ---
DATE OF SERVICE: 05/08/2020 ATTENDING PHYSICIAN: Dr. Verde. SUMMARY: A 74-year-old white female, who suffered a CVA and had a Arana catheter in. I was consulted to manage the voiding pattern and trial of voiding. The patient and her denied any previous problem of voiding at home. IMPRESSION: Cerebrovascular accident with possible neurogenic bladder and retention. PLAN: Trial of voiding today and manage accordingly. Job ID: [id number] DocumentID: [id number] Dictated Date: 05/08/2020 10:44:52 Auto Inspector Date: 05/08/2020 11:39:09 Dictated By: BROOK MASON MD
[2020-05-08 19:23] VITALS: BP 140/80
[2020-05-09 05:36] VITALS: BP 151/74
--- NOTE | 2020-05-09 06:26 | PM&R Progress Note ---
Subjective HPI/CC On Admission Date Seen by Provider: May 09, 2020 Time Seen by Provider: 10:00 Subjective/Events-last exam PEG tube will be placed tomorrow by Dr. Chayo Scott in order to have that surgery Overall extremely debilitated and aphasia continues Coarseness in breath sounds noted Will hopefully be able to decrease and eliminate Clinimix infusion once PEG tube is placed Overall prognosis is extremely poor Checked meds and labs Conferred with RN Reviewed therapy notes Review of Systems General: Fatigue, Malaise 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: Weakness, Incoordination, Change in speech Objective Exam Vital Signs Vital Signs Date Time Temp Pulse Resp B/P (MAP) Pulse Ox O2 Delivery O2 Flow Rate FiO2 05/09/20 18:16 36.2 75 20 132/79 (96) 95 Room Air 05/09/20 09:00 0.50 Capillary Refill : Less Than 3 Seconds General Appearance: No Apparent Distress, WD/WN, Chronically ill HEENT: PERRL/EOMI, Normal ENT Inspection, Pharynx Normal Neck: Full Range of Motion, Normal Inspection, Non Tender, Supple, Carotid Bruit Respiratory: Chest Non Tender, Lungs Clear, Normal Breath Sounds, No Accessory Muscle Use, No Respiratory Distress Cardiovascular: Regular Rate, Rhythm, No Edema, No Gallop, No JVD, No Murmur, Normal Peripheral Pulses Gastrointestinal: Normal Bowel Sounds, No Organomegaly, No Pulsatile Mass, Non Tender, Soft Back: Normal Inspection, No CVA Tenderness, No Vertebral Tenderness Extremity: Normal Capillary Refill, Normal Inspection, Normal Range of Motion, Non Tender, No Calf Tenderness, No Pedal Edema Neurologic/Psychiatric: Alert, Abnormal hand i blocker II-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 FIM Transfers Therapy Code Descriptions/Definitions Functional [place] Measure: 0=Not Assessed/NA 4=Minimal Assistance 1=Total Assistance 5=Supervision or Setup 2=Maximal Assistance 6=Modified [place] 3=Moderate Assistance 7=Complete IndependenceSCALE: Activities may be completed with or without assistive devices. 8-Gprwawicev-xsjtgsj completes the activity by him/herself with no assistance from a helper. 5-Set-up or Clean-up Assistance-helper sets up or cleans up; patient completes activity. [place] assists only prior to or following the activity. 4-Supervision or Touching Assistance-helper provides verbal cues and/or touching/steadying and/or contact guard assistance as patient completes activity. Assistance may be provided throughout the activity or intermittently. 3-Partial/Moderate Assistance-helper does LESS THAN HALF the effort. [place] lifts, holds or supports trunk or limbs, but provides less than half the effort. 2-Substantial/Maximal Assistance-helper does MORE THAN HALF the effort. [place] lifts or holds trunk or limbs and provides more than half the effort. 4-Nkllslnex-hyliiv does ALL the effort. Patient does none of the effort to complete the activity. Or, the assistance of 2 or more helpers is required for the patient to complete the activity. If activity was not attempted, code reason: 7-Patient Refused. 9-Not Applicable-not attempted and the patient did not perform the activity bef ore the current illness, exacerbation or injury. 10-Not Attempted due to Environmental Limitations-(lack of equipment, weather r estraints, etc.). 88-Not Attempted due to Medical Conditions or Safety Concerns. Roll Left to Right (QC): 1 Sit to Lying (QC): 1 Sit to Stand (QC): 2 Chair/Biv-co-Kgkbj Xfer(QC): 2 Car Transfer (QC): 88 Gait Training Does the Patient Walk?: No and Walking Goal IS indicated Walk 10 feet (QC): 88 Walk 50 ft with 2 Turns(QC): 88 Walk 150 ft (QC): 88 Walking 10ft/uneven surface-QC: 88 Wheelchair Training Does the Pt Use a Wheelchair?: Yes Distance: 300' Wheel 50 ft with 2 turns (QC): 1 Wheel 150 ft (QC): 1 Type of Wheelchair: Manual Stair Training 1 Step (curb) (QC): 88 4 Steps (QC): 88 12 Steps (QC): 88 Balance Picking up an Object (QC): 88 ADL-Treatment Eating (QC): 3 (mod A scooping food and bringing to mouth. Pt able to swallow with modified diet. Pt requires cues for use of adaptive handle due to decreased LUE movement/ strength/ endurance and tracking food to mouth. Pt requires mod physical cues to place bite into mouth as spoon is placed on R side of mouth by pt. ) Oral Hygiene (QC): 1 Shower/Bathe Self (QC): 1 (Bathing completed while seated on rolling shower chair. Pt used left UE to partially wash chest and abdomen, but required assist for all other areas. ) Upper Body Dressing (QC): 1 (Pt dependent to thread bilateral UE into nightgown, pulley mortiser operator head, and pull down in back. 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 Lord regarding Arana catheter discontinuation Continue crushed pills Continue Clinimix Living will and palliative care consult 05/08/20: Reconsult Dr. Lord since she is not ready for palliative care Discontinued Catheter monitor for retention Bowels are a bit loose hold laxatives Peg tube will be required so will consult general surgery on that 05/09/20: PEG to placement per Dr. Chayo Smart Eliquis today Continue therapies Prognosis poor correction considering catastrophic level of stroke (1) CVA (cerebral vascular accident) (2) EMPHYSEMA, UNSPECIFIED Status: Chronic (3) Denial about severity of illness (4) History of shingles (5) Uncontrolled hypertension Status: Acute (6) Aphasia (7) Debility Status: Acute (8) Hypoxia Status: Chronic (9) Dementia (10) Delirium (11) Memory loss (12) Paroxysmal atrial fibrillation Status: Chronic (13) Myopathy (14) Noncompliance with medication regimen Status: Chronic JEROME NEAL DO May 09, 2020 06:26
[2020-05-09] MEDS: SENNA W/DOCUSATE (SENOKOT S) TABLET PO SCH ×2 (08:08→21:15)
[2020-05-09] MEDS: ASPIRIN 81 MG CHEW (CHILDREN'S ASA) PO SCH (08:08)
[2020-05-09] MEDS: APIXABAN 5 MG (ELIQUIS) TABLET PO SCH (08:09)
[2020-05-09] MEDS: DOCUSATE SODIUM 100 MG (COLACE) CAP PO SCH ×2 (08:09→19:48)
[2020-05-09] MEDS: APAP 325 MG/10.15 ML LIQ (TYLENOL) UDC PO PRN (08:09)
--- NOTE | 2020-05-09 08:30 | NUR ---
"PO CALORIE COUNT: Est kcal needs: 1500 kcal | 25 kcal/kg Est Pro needs: 72 g Pro | 0.8 g Pro/kg 05/06 Total: 668 kcal (45% of est needs) | 19 g Pro (26% of est needs) 05/07 B: 206 kcal | 9 g Pro 05/07 L: 323 kcal | 10 g Pro 05/07 D: no ticket left; but consumed 50% of meal, per chart review 05/07 Total: 529 kcal (35% of est needs) | 19 g Pro (26% of est needs) 05/08 B: 173 kcal | 4 g Pro 05/08 L: 270 kcal | 11 g Pro 05/08 D: 369 kcal | 12 g Pro 05/08 Total: 812 kcal (54% of est needs) | 27 g Pro (38% of est needs) Note this does not include Clinimix, which provides 340 kcal and 43 g Pro per 1000ml S. Rowdy Ansari, MS, RD, LD"
[2020-05-09] MEDS ORDERED: INSTAFLEX PO SCH (09:00)
--- NOTE | 2020-05-09 09:39 | Occupational Ther Daily Note ---
OT Current Status-Daily Note Subjective Pt in bed working with PT when OT entered the room. No c/o pain this am. Pt. agreeable to therapy. Mental Status/Objective Patient Orientation: Unable to Assess Attachments: IV ADL-Treatment Therapy Code Descriptions/Definitions Functional [place] Measure: 0=Not Assessed/NA 4=Minimal Assistance 1=Total Assistance 5=Supervision or Setup 2=Maximal Assistance 6=Modified [place] 3=Moderate Assistance 7=Complete IndependenceSCALE: Activities may be completed with or without assistive devices. 4-Picuvbnwhv-rbybszm completes the activity by him/herself with no assistance from a helper. 5-Set-up or Clean-up Assistance-helper sets up or cleans up; patient completes activity. [place] assists only prior to or following the activity. 4-Supervision or Touching Assistance-helper provides verbal cues and/or touching/steadying and/or contact guard assistance as patient completes activity. Assistance may be provided throughout the activity or intermittently. 3-Partial/Moderate Assistance-helper does LESS THAN HALF the effort. [place] lifts, holds or supports trunk or limbs, but provides less than half the effort. 2-Substantial/Maximal Assistance-helper does MORE THAN HALF the effort. [place] lifts or holds trunk or limbs and provides more than half the effort. 1-Pneyifvot-vjcgdz does ALL the effort. Patient does none of the effort to complete the activity. Or, the assistance of 2 or more helpers is required for the patient to complete the activity. If activity was not attempted, code reason: 7-Patient Refused. 9-Not Applicable-not attempted and the patient did not perform the activity before the current illness, exacerbation or injury. 10-Not Attempted due to Environmental Limitations-(lack of equipment, weather restraints, etc.). 88-Not Attempted due to Medical Conditions or Safety Concerns. Lower Body Dressing (QC): 1 (Assist x2 for bed mobility and standing to don pants and dross puller hips) Toileting Hygiene (QC): 1 (Dependent for doffing dirty brief, jen cleansing, and donning clean brief while in bed) Other Treatment Co-treated with PT as pt requires the skills of 2 clinicians due to her medical complexity. PT focused on mobility, transfers, and LE ROM. OT focused on functional transfers, daily task skills, and UE ROM. Pt. working with PT when OT entered room. Pt. still groggy and reported that she did not sleep well last night. OT handed pt a warm washcloth to clean face. Pt. brought washcloth to mouth and cleaned around lips. She required max A to complete task. Pt. dependent for changing brief and jen cleansing requiring assist x2 for bed mobility. Assist x2 was also required for donning pants while in bed. Supine-sit transfer dependent. Pt. required max A for standing. Assist x2 needed to pull pants over hips while standing. Pt. transferred to w/c and taken to therapy gym. Once in gym, pt tolerated standing at parallel bars in front of mirror 3 times, approximately 3 minutes each time, with multiple rest breaks. While standing, pt required assist x2 and multiple tactile and verbal cues for proper posture, weight shifts, and looking into mirror. During rest breaks, pt tolerated PROM of R UE shoulder and elbow in all planes to help reduce tone and maintain ROM. Pt then transferred to mat to work on sitting tolerance while unsupported. Pt. required tactile and verbal cues to correct posture, as she would tend to lean t oward right side. Pt. would close her eyes, and required cues to open and participate. Pt. was on .5 L 02 when therapy entered room. Pt. taken off oxygen for treatment, and sats monitored throughout. 02 sats ranged from 94-97% while on room air. Pt. working with PT when OT left room. Education OT Patient Education: Correct positioning, Energy conservation, Exercise program, Modified ADL techniques, Progress toward Goal/Update tx plan, Purpose of tx/functional activities, Reviewed precautions, Rehab process, Transfer techniques Teaching Recipient: Patient Teaching Methods: Demonstration, Discussion Response to Teaching: Unable to Return Demonstration, Reinforcement Needed OT Short Term Goals Short Term Goals Time Frame: May 17, 2020 Shower/bathe self: 2 Upper body dressin Lower body dressin OT Shelter Goals Shelter Goals Time Frame: May 31, 2020 Eating (QC): 4 Oral Hygiene (QC): 4 Toileting Hygiene (QC): 3 Shower/Bathe Self (QC): 3 Upper Body Dressing (QC): 4 Lower Body Dressing (QC): 3 On/Off Footwear (QC): 3 Additional Goals: 1-Demonstrate ADL Tasks, 2-Verbalize Understanding, 3- ImproveStrength/Rex 1=Demonstrate adherence to instructed precautions during ADL tasks. 2=Patient will verbalize/demonstrate understanding of assistive devices/modifications for ADL. 3=Patient will improve strength/tolerance for activity to enable patient to perform ADL's. OT Education/Plan Problem List/Assessment Assessment: Decreased Activ Tolerance, Decreased UE Strength, Dependent Transfers, Impaired Bed Mobility, Impaired Cognition, Impaired Coordination, Impaired Funct Balance, Impaired I ADL's, Impaired Self-Care Skills, Restricted Funct UE ROM Discharge Recommendations Plan/Recommendations: Continue POC Therapy Discharge Recommendati: 24 Hour Supervision, Post Acute OT Treatment Plan/Plan of Care Treatment,Training & Education: Yes Patient would benefit from OT for education, treatment and training to promote independence in ADL's, mobility, safety and/or upper extremity function for ADL's. Plan of Care: ADL Retraining, Functional Mobility, Group Exercise/Act as Ind, UE Funct Exercise/Act, UE Neuromus Re-Ed/Coord, Visual/Perceptual Retrain Treatment Duration: May 31, 2020 Frequency: Modified Program (IRF) (01/05) Estimated Hrs Per Day: Other Agreement: Yes Rehab Potential: Fair Time/GCodes Start Time: 08:30 Stop Time: 09:30 Total Time Billed (hr/min): 60 Billed Treatment Time 1, FA 2 (30 minutes), ADL (15 minutes), EX (15 minutes) Co-treatment completed with PT. Please see above note for designated roles. RILEY DUBON OT May 09, 2020 09:39
--- NOTE | 2020-05-09 09:47 | Physical Therapy Daily Note ---
PT Daily Note-Current Subjective Pt in bed upon arrival and agrees to co-treat. Throughout tx pt states she is tired and wants to nap. Pt stated she didn't sleep well last night. Use of two clinicians required d/t poor activity tolerance, decreased strength, ROM, endurance, and poor balance. Pain Location: No Pain Reported Mental Status Patient Orientation: Person, Place, Time, Situation Attachments: Oxygen (1), IV Pt on 1 L of O2, pt sats at 97 at beginning of tx, so taken off of O2 throughout tx. Pt sats didn't drop below 96. O2 placed back on once pt returned to bed. Transfers SCALE: Activities may be completed with or without assistive devices. 7-Dquuhuvrwf-zqlznoe completes the activity by him/herself with no assistance from a helper. 5-Set-up or Clean-up Assistance-helper sets up or cleans up; patient completes activity. [place] assists only prior to or following the activity. 4-Supervision or Touching Assistance-helper provides verbal cues and/or touching /steadying and/or contact guard assistance as patient completes activity. Assistance may be provided throughout the activity or intermittently. 3-Partial/Moderate Assistance-helper does LESS THAN HALF the effort. [place] lifts, holds or supports trunk or limbs, but provides less than half the effort. 2-Substantial/Maximal Assistance-helper does MORE THAN HALF the effort. [place] lifts or holds trunk or limbs and provides more than half the effort. 6-Wlsmjygql-qtjede does ALL the effort. Patient does none of the effort to complete the activity. Or, the assistance of 2 or more helpers is required for the patient to complete the activity. If activity was not attempted, code reason: 7-Patient Refused. 9-Not Applicable-not attempted and the patient did not perform the activity before the current illness, exacerbation or injury. 10-Not Attempted due to Environmental Limitations-(lack of equipment, weather restraints, etc.). 88-Not Attempted due to Medical Conditions or Safety Concerns. Roll Left & Right (QC): 2 Sit to Lying (QC): 2 Lying to Sitting/Side of Bed(Q: 2 Sit to Stand (QC): 2 Chair/Esn-vw-Ipngy Xfer(QC): 2 Weight Bearing Right Lower Extremity: Right Weight Bearing/Tolerated Left Lower Extremity: Left Weight Bearing/Tolerated Wheelchair Training Does the Pt Use a Wheelchair?: Yes Type of Wheelchair: Manual Exercises Supine Ex: Ankle pumps, D2 F/E UE, Hip abd/add Supine Reps: 10 Pt AAROM for R LE. Treatments Pt performs LE and UE stretching/exercising in bed. Pt washes face w assist from OT. Pt performs bed mobility while OT changes pt's brief and dons pants. Pt supine to sit with MaxA x2. Pt taken to gym and performs sit to stand x3 approx 45 secs each time. Pt required TC to keep upright posture and stay in midline. PT focused on standing balance and weight shifts as OT focused on UE positioning and posture. Pt transferred to mat in gym and performs static sitting balance approx 5 mins with ModA x2. Pt required TC and VC to stay in midline and keep upright. Pt laid on mat while L UE and LE were stretched by OT and PT. Pt transferred back to and taken back to bed. Pt left with all needs met, call light in hand. PT focused on LE strengthening/positioning/stretching, transfers, balance, and bed mobility. OT focused on UE strengthening/positioning/stretching, dressing, and posture. Assessment Current Status: Fair Progress Pt required TC throughout tx to keep upright posture and in midline. Pt easily fatigued and was very tired throughout tx, keeping her eyes closed most the time. PT Short Term Goals Short Term Goals Time Frame: May 25, 2020 Roll Left & Right: 3 Sit to lyin Lying to sitting on side of be: 3 Sit to stand: 3 Chair/bxq-yz-lwtzv transfer: 3 Toilet transfer: 3 Car transfer: 3 Walk 10 feet: 3 PT Vault Teller Goals Care Home Goals PT [place] Goals Time Frame: Jun 08, 2020 Roll Left & Right (QC): 4 Sit to Lying (QC): 4 Lying-Sitting on Side/Bed(QC): 4 Sit to Stand (QC): 4 Chair/Uot-vw-[place] Xfer(QC): 4 Toilet Transfer (QC): 4 Car Transfer (QC): 4 Does the Patient Walk: No and Walking Goal IS indicated Walk 10 feet (QC): 4 Walk 50ft with 2 Turns (QC): 4 Walk 150 ft (QC): 4 Walking 10ft on Uneven Surface: 4 1 Step (curb) (QC): 4 4 Steps (QC): 4 12 Steps (QC): 9 Picking up an Object (QC): 3 Does the Pt use WC or Scooter?: Yes Wheel 50 feet with 2 turns (QC: 4 Type: Manual Wheel 150 feet: 4 PT Plan Problem List Problem List: Activity Tolerance, Functional Strength, Safety, Balance, Transfer, Bed Mobility, ROM Treatment/Plan Treatment Plan: Continue Plan of Care Treatment Plan: Bed Mobility, Concurrent Therapy, Education, Functional Activity Rex, Functional Strength, Group Therapy, Gait, Safety, Therapeutic Exercise, Transfers Treatment Duration: Jun 08, 2020 Frequency: Modified Program (IRF) (01/05) Estimated Hrs Per Day: 1.5 hours per day Patient and/or Family Agrees t: Yes Safety Risks/Education Patient Education: Transfer Techniques, Correct Positioning, Safety Issues Teaching Recipient: Patient Teaching Methods: Demonstration, Discussion Response to Teaching: Verbalize Understanding, Return Demonstration, Reinforcement Needed Time/GCodes Time In: 830 Time Out: 945 Total Billed Treatment Time: 75 Total Billed Treatment 1, FA x3 (45m), NM x2 (30m) Co-treat [phone] KLARISSA RITCHIE PTA May 09, 2020 09:47
[2020-05-09] MEDS: polyethylene glycoL POWDER 17 GM (MIRALAX) PACK PO SCH ×2 (09:50→19:41)
--- NOTE | 2020-05-09 11:22 | NUR ---
NOTED THAT PATIENT AND FAMILY ARE NOT INTERESTED IN HOSPICE CARE AT THIS TIME. THIS WAS THE FEELING I GOT FROM THEM WELL. PALLIATIVE CARE RN WILL SIGN OFF AND IF REQUESTED REINSERT MYSELF INTO HER CARE PLAN.
--- NOTE | 2020-05-09 11:29 | Occupational Ther Daily Note ---
OT Current Status-Daily Note Subjective Pt asleep in bed when OT entered room. Pt. awoken and agreed to therapy. When asked about pain, pt reported that she is not having any pain. Mental Status/Objective Patient Orientation: Unable to Assess Attachments: IV, Oxygen ADL-Treatment Therapy Code Descriptions/Definitions Functional [place] Measure: 0=Not Assessed/NA 4=Minimal Assistance 1=Total Assistance 5=Supervision or Setup 2=Maximal Assistance 6=Modified [place] 3=Moderate Assistance 7=Complete IndependenceSCALE: Activities may be completed with or without assistive devices. 0-Dqlkbemlib-nhlzhht completes the activity by him/herself with no assistance from a helper. 5-Set-up or Clean-up Assistance-helper sets up or cleans up; patient completes activity. [place] assists only prior to or following the activity. 4-Supervision or Touching Assistance-helper provides verbal cues and/or touching/steadying and/or contact guard assistance as patient completes activity. Assistance may be provided throughout the activity or intermittently. 3-Partial/Moderate Assistance-helper does LESS THAN HALF the effort. [place] lifts, holds or supports trunk or limbs, but provides less than half the effort. 2-Substantial/Maximal Assistance-helper does MORE THAN HALF the effort. [place] lifts or holds trunk or limbs and provides more than half the effort. 4-Zqeogjcks-vouyif does ALL the effort. Patient does none of the effort to complete the activity. Or, the assistance of 2 or more helpers is required for the patient to complete the activity. If activity was not attempted, code reason: 7-Patient Refused. 9-Not Applicable-not attempted and the patient did not perform the activity before the current illness, exacerbation or injury. 10-Not Attempted due to Environmental Limitations-(lack of equipment, weather restraints, etc.). 88-Not Attempted due to Medical Conditions or Safety Concerns. Other Treatment Pt. agreed to therapy while remaining in bed. Pt. dependent for repositioning in bed. Pt. tolerated 15 minutes PROM in all joints in R UE in all planes to decrease tone. Noted that elbow would extend when pt cued to relax it. Pt. and spouse educated on tone after CVA and importance of maintaining ROM for function. Both pt and spouse verbalized understanding. Pt. would hold short conversations answering questions appropriately, then would fall back to sleep throughout session. Pt. repositioned in bed with in room. All needs met. Education OT Patient Education: Correct positioning, Disease process, Exercise program, Modified ADL techniques, Progress toward Goal/Update tx plan, Purpose of tx/functional activities, Reviewed precautions, Rehab process, Transfer techniques Teaching Recipient: Patient, Family Teaching Methods: Demonstration, Discussion Response to Teaching: Verbalize Understanding OT Short Term Goals Short Term Goals Time Frame: May 17, 2020 Shower/bathe self: 2 Upper body dressin Lower body dressin OT [employer] Engineer Goals [employer] Engineer Goals Time Frame: May 31, 2020 Eating (QC): 4 Oral Hygiene (QC): 4 Toileting Hygiene (QC): 3 Shower/Bathe Self (QC): 3 Upper Body Dressing (QC): 4 Lower Body Dressing (QC): 3 On/Off Footwear (QC): 3 Additional Goals: 1-Demonstrate ADL Tasks, 2-Verbalize Understanding, 3- ImproveStrength/Rex 1=Demonstrate adherence to instructed precautions during ADL tasks. 2=Patient will verbalize/demonstrate understanding of assistive devic es/modifications for ADL. 3=Patient will improve strength/tolerance for activity to enable patient to perform ADL's. OT Education/Plan Problem List/Assessment Assessment: Decreased Activ Tolerance, Decreased UE Strength, Dependent Transfers, Impaired Bed Mobility, Impaired Cognition, Impaired Coordination, Impaired Funct Balance, Impaired I ADL's, Impaired Self-Care Skills, Restricted Funct UE ROM Discharge Recommendations Plan/Recommendations: Continue POC Therapy Discharge Recommendati: 24 Hour Supervision, Post Acute OT Treatment Plan/Plan of Care Treatment,Training & Education: Yes Patient would benefit from OT for education, treatment and training to promote independence in ADL's, mobility, safety and/or upper extremity function for ADL's. Plan of Care: ADL Retraining, Functional Mobility, Group Exercise/Act as Ind, UE Funct Exercise/Act, UE Neuromus Re-Ed/Coord, Visual/Perceptual Retrain Treatment Duration: May 31, 2020 Frequency: Modified Program (IRF) (01/05) Estimated Hrs Per Day: Other Agreement: Yes Rehab Potential: Fair Time/GCodes Start Time: 11:03 Stop Time: 11:18 Total Time Billed (hr/min): 15 Billed Treatment Time 1, EX (15 minutes) RILEY DUBON OT May 09, 2020 11:29
--- NOTE | 2020-05-09 13:33 | NUR ---
CM/SS PATIENT CARE CONFERENCE Reviewed Summary with patient's spouse Michael Lee and provided for his reading/review. Once Mr. Lee's questions were answered to his satisfaction, signature obtained, charted. Reviewed EMR, care plan appears to be moving forward for PEG tube for adequate nutrition and collective progress notes reflect that the family wishes to continue aggressive/curative measures. Visited with Mr. Lee privately, he stated that the patient communicated she does not want to return to a fpc environment, having just left [facility] March 07, 2020 after at least 100 days. Explored, then, whether family could provide for her at home to which Mr. Lee replied, "not right now." He also indicated their daughter Lyly Lee is still living in a trailer behind their home and could be available to assist. Patient's overall level of functioning will likely determine whether she returns home vs fpc. As earlier noted, this will be private pay without available Medicare skilled benefits. Final post hospital care plan is to be determined by patient's ARU course. Continue intermittent reviews and supportive discharge planning.
--- NOTE | 2020-05-09 13:48 | Speech Therapy Daily Note ---
Speech Daily Progress Note Subjective Date Seen by Provider: May 09, 2020 Time Seen by Provider: 00:30 Patient resting in her bed following her OT and PT session. Objective Patient completed a speech task of sentence completion using 2 given unrelated words with 60% given mod repetitions. Assessment Assessment Current Status: Fair Progress Treatment Plan Continue Plan of Care Speech Short Term Goals Short Term Goals Short Term Goals 1) Patient will answer y/n questions related to herself with 80% or greater with minimal cues. 2) Patient will respond to questions related to items/pictures at 80% or greater with minimal cues. 3) Patient will tolerate least restrictive diet level without s/s of aspiration at 80% or greater. 4) Patient/caregiver will utilize compensatory strategies as trained at 90% or greater with minimal cues. Speech Babbitter Goals Residential Goals Patient will improve communication necessary for safety and daily living tasks with minimal assist. Patient will maintain adequate nutrition/hydration via safe, effective swallow function. Speech-Plan Patient/Family Goals Patient/Family Goals: Patient's discharge plan will be determined at a later date, although patient's family plan for her to return home. Treatment Plan Speech Therapy Treatment Plan: Continue Plan of Care Treatment Duration: May 10, 2020 Frequency: 5 times per week Estimated Hrs Per Day: .5 hour per day Rehab Potential: Fair Barriers to Learning: Patient's medical status and progress Pt/Family Agrees to Plan: Yes Safety Risks/Education Teaching Recipient: Patient, Significant Other Teaching Methods: Demonstration, Discussion Response to Teaching: Verbalize Understanding, Return Demonstration Education Topics Provided: Continued safety and communication of wants/needs Time Speech Therapy Time In: 09:45 Speech Therapy Time Out: 10:15 Total Billed Time: 30 Billed Treatment Time 1PATIENCE BETHAN[address] ST May 09, 2020 13:48
--- NOTE | 2020-05-09 15:43 | NUR ---
Initial visit made by MANISH Judge. Prayed with pt's .
[2020-05-09] MEDS: AA 4.25% W/LYTES IN D5W IV SOL 1,000 ML IV SCH (16:00)
--- NOTE | 2020-05-09 17:23 | Consultation - Surgery ---
History of Present Illness History of Present Illness Patient Consulted On(damaris/time) 05/09/20 17:18 Date Seen by Provider: May 09, 2020 Time Seen by Provider: 17:18 History of Present Illness Consult requested by Dr Verde for PEG tube placement. Patient with acute stroke with result of right sided weakness, poor oral intake. Patient unable to provide any history. She is on Eliquis which is on hold for PEG tube discussed with Dr. Verde. is at bedside. Allergies and Home Medications Allergies Coded Allergies: Sulfa (Sulfonamide Antibiotics) (Verified Allergy, Unknown, 12/27/17) Home Medications Acetaminophen 650 Mg Tablet.er, 1,300 MG PO Q8H PRN for PAIN-MILD (1-4), (Repor lizett) Apixaban 5 Mg Tablet, 5 MG PO BID, (Reported) Aspirin 81 Mg Tab.chew, 81 MG PO DAILY, (Reported) Atorvastatin Calcium 20 Mg Tablet, 20 MG PO HS, (Reported) Carvedilol 6.25 Mg Tablet, 6.25 MG PO BID, (Reported) Citalopram Hydrobromide 20 Mg Tablet, 20 MG PO HS, (Reported) Diltiazem HCl 240 Mg Cap.er.24h, 240 MG PO DAILY, (Reported) Flaxseed Oil 1,000 Mg Capsule, 1,000 MG PO DAILY, (Reported) Furosemide 20 Mg Tablet, 20 MG PO Q72H, (Reported) TAKE THE SAME DAY POTASSIUM Hydroxyzine HCl 10 Mg Tablet, 10 MG PO TID PRN for ANXIETY, (Reported) LAST FILLED 03-15-2020 #90 Ipratropium/Albuterol Sulfate 3 Ml Ampul.neb, 3 ML NEB QID PRN for SHORTNESS OF BREATH, (Reported) Levothyroxine Sodium 50 Mcg Tablet, 50 MCG PO DAILY, (Reported) Montelukast Sodium 10 Mg Tablet, 10 MG PO DAILY, (Reported) Potassium Chloride 10 Meq Tablet.er, 10 MEQ PO Q72H, (Reported) TAKES ON THE SAME DAY FUROSEMIDE [Instaflex] , 1 TAB PO DAILY, (Reported) Patient Home Medication List Home Medication List Reviewed: Yes Past Jnsdfqm-Vsxdrv-Nvfeqg Hx Patient Social History Alcohol Use: Denies Use Recreational Drug Use: No Smoking Status: Former Smoker Former Smoker, Quit: Aug 27, 2004 Type Used: Cigarettes 2nd Hand Smoke Exposure: No Recent Foreign Travel: No Contact w/Someone Who Travel: No Recent Infectious Disease Expo: No Recent Hopitalizations: No Immunizations Up To Date Tetanus Booster (TDap): Unknown Date of Pneumonia Vaccine: Sep 17, 2015 Date of Influenza Vaccine: Jul 19, 2019 Seasonal Allergies Seasonal Allergies: No Surgeries History of Surgeries: Yes (CARDIAC CATH X 3--STENTS X 4) Surgeries: Cardiac, Coronary Stent, Gallbladder, Tubal Ligation Respiratory History of Respiratory Disorde: Yes Respiratory Disorders: Pneumonia, COPD Cardiovascular History of Cardiac Disorders: Yes (CHF; CARDIAC CATHS X 3 WITH STENTS X 4) Cardiac Disorders: Atrial Fibrillation, Coronary Artery Disease, High Cholesterol, Hypertension 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 History of 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 Disord: No 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 Disorders: Dementia, Stroke (04/2020) Reproductive System Sexually Transmitted Disease: No HIV/AIDS: No 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 ) Loss of Vision: Denies Cancer History of Cancer: No Psychosocial History of Psychiatric Problem: Yes Behavioral Health Disorders: Anxiety, Depression Integumentary History of Skin or Integumenta: No Blood Transfusions History of Blood Disorders: No Adverse Reaction to a Blood Tr: No Reviewed Nursing Assessment Reviewed/Agree w Nursing PMH: Yes Family Medical History Significant Family History: No Pertinent Family Hx Family Medial History: Cardiovascular disease 19 MOTHER Diabetes mellitus 19 MOTHER Hypertension 19 MOTHER Review of Systems-General ROS-Unable to Obtain: patient unable to provide due to condition Physical Exam-General Problems Physical Exam Vital Signs Vital Signs - First Documented 05/03/20 05/03/20 11:00 16:00 Temp 36.1 Pulse 119 Resp 18 B/P (MAP) 153/85 Pulse Ox 95 O2 Delivery Nasal Cannula O2 Flow Rate 1.00 Capillary Refill : Less Than 3 Seconds General Appearance: WD/WN, no apparent distress HEENT: PERRL/EOMI Neck: supple, normal inspection Respiratory: chest non-tender, no respiratory distress, no accessory muscle use Cardiovascular: irregularly irregular Gastrointestinal: non tender, soft, no organomegaly Rectal: deferred Back: no CVA tenderness, no vertebral tenderness Extremities: normal inspection, other (right sided weakness) Neurologic/Psychiatric: alert, normal mood/affect, oriented x 3 Skin: normal color, warm/dry Lymphatic: no adenopathy Assessment/Plan Assessment/Plan Assessment/Plan cva poor oral intake afib eliquis on hold npo after midnight will likely be tomorrow afternoon discussed risks and benefits with who understands risks and benefits consent for PEG tube Clinical Quality Measures DVT/VTE Risk/Contraindication: Risk Factor Score Per Nursin RFS Level Per Nursing on Admit: 4+=Very High JANINE MAZA DO May 09, 2020 17:23
[2020-05-09 18:16] VITALS: BP 132/79
[2020-05-09] MEDS: ALPRAZolam 0.25 MG (XANAX) TAB PO PRN (23:15)
[2020-05-10 05:08] VITALS: BP 147/95
--- NOTE | 2020-05-10 07:55 | NUR ---
PATIENT SCHEDULED FOR PEG TUBE PLACEMENT TODAY. [address] MAZA ET ANESTHESIA ORDER, RELATED TO PATIENT UNABLE TO STAY NPO DUE TO TAKING ALL MEDS IN PUDDING.
--- NOTE | 2020-05-10 08:55 | Speech Therapy Daily Note ---
Speech Daily Progress Note Subjective Date Seen by Provider: May 10, 2020 Time Seen by Provider: 00:30 Patient resting in her bed, alerts to name and answers questions appropriately. Objective Patient completed simple q/a related to herself with 85% given minimal repetitions. Assessment Assessment Current Status: Good Progress Treatment Plan Continue Plan of Care Speech Short Term Goals Short Term Goals Short Term Goals 1) Patient will answer y/n questions related to herself with 80% or greater with minimal cues. 2) Patient will respond to questions related to items/pictures at 80% or greater with minimal cues. 3) Patient will tolerate least restrictive diet level without s/s of aspiration at 80% or greater. 4) Patient/caregiver will utilize compensatory strategies as trained at 90% or greater with minimal cues. Speech Mcc Goals Auto [employer] Clerk Goals Patient will improve communication necessary for safety and daily living tasks with minimal assist. Patient will maintain adequate nutrition/hydration via safe, effective swallow function. Speech-Plan Patient/Family Goals Patient/Family Goals: Patient's discharge is planned for return to her home where she lives with her . Treatment Plan Speech Therapy Treatment Plan: Continue Plan of Care Patient is scheduled for PEG tube placement this afternoon. Treatment Duration: May 17, 2020 Frequency: 5 times per week Estimated Hrs Per Day: .5 hour per day Rehab Potential: Fair Barriers to Learning: Patient's current medical status Pt/Family Agrees to Plan: Yes Safety Risks/Education Teaching Recipient: Patient Teaching Methods: Demonstration, Discussion Response to Teaching: Verbalize Understanding, Return Demonstration, Reinforcement Needed Education Topics Provided: Patient's safety and communication Time Speech Therapy Time In: 08:30 Speech Therapy Time Out: 09:00 Total Billed Time: 30 Billed Treatment Time 1PATIENCE BETHAN[address] ST May 10, 2020 08:54
--- NOTE | 2020-05-10 09:14 | PM&R Progress Note ---
Subjective HPI/CC On Admission Date Seen by Provider: May 10, 2020 Time Seen by Provider: 09:15 Subjective/Events-last exam PEG tube will be placed today by Dr. Domingo later this afternoon Holding Sonia in order to have that surgery Overall extremely debilitated and aphasia continues which she speaks clearer early in the day Coarseness in breath sounds noted and will monitor closey due to COPD and h/o PNA and CHF Will hopefully be able to decrease and eliminate Clinimix infusion once PEG tube is placed Overall prognosis is extremely poor Dr Mckinney and I conferred about DC cath and not emptying well just some residual incontinence Checked meds and labs Conferred with RN Reviewed therapy notes Objective Exam Vital Signs Vital Signs Date Time Temp Pulse Resp B/P (MAP) Pulse Ox O2 Delivery O2 Flow Rate FiO2 05/10/20 10:35 Room Air 05/10/20 09:00 95 1.00 05/10/20 05:08 36.8 84 18 147/95 (112) Capillary Refill : Less Than 3 Seconds General Appearance: No Apparent Distress, WD/WN, Chronically ill HEENT: PERRL/EOMI, Normal ENT Inspection, Pharynx Normal Neck: Full Range of Motion, Normal Inspection, Non Tender, Supple, Carotid Bruit Respiratory: Chest Non Tender, Lungs Clear, Normal Breath Sounds, No Accessory Muscle Use, No Respiratory Distress Cardiovascular: Regular Rate, Rhythm, No Edema, No Gallop, No JVD, No Murmur, Normal Peripheral Pulses Gastrointestinal: Normal Bowel Sounds, No Organomegaly, No Pulsatile Mass, Non Tender, Soft Back: Normal Inspection, No CVA Tenderness, No Vertebral Tenderness Extremity: Normal Capillary Refill, Normal Inspection, Normal Range of Motion, Non Tender, No Calf Tenderness, No Pedal Edema Neurologic/Psychiatric: Alert, Abnormal rent collector II-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 FIM Transfers Therapy Code Descriptions/Definitions Functional [place] Measure: 0=Not Assessed/NA 4=Minimal Assistance 1=Total Assistance 5=Supervision or Setup 2=Maximal Assistance 6=Modified [place] 3=Moderate Assistance 7=Complete IndependenceSCALE: Activities may be completed with or without assistive devices. 9-Pddcifcdgj-qxsodnw completes the activity by him/herself with no assistance from a helper. 5-Set-up or Clean-up Assistance-helper sets up or cleans up; patient completes activity. [place] assists only prior to or following the activity. 4-Supervision or Touching Assistance-helper provides verbal cues and/or touching/steadying and/or contact guard assistance as patient completes activity. Assistance may be provided throughout the activity or intermittently. 3-Partial/Moderate Assistance-helper does LESS THAN HALF the effort. [place] lifts, holds or supports trunk or limbs, but provides less than half the effort. 2-Substantial/Maximal Assistance-helper does MORE THAN HALF the effort. [place] lifts or holds trunk or limbs and provides more than half the effort. 5-Pjgovluue-cuqiqq does ALL the effort. Patient does none of the effort to complete the activity. Or, the assistance of 2 or more helpers is required for the patient to complete the activity. If activity was not attempted, code reason: 7-Patient Refused. 9-Not Applicable-not attempted and the patient did not perform the activity before the current illness, exacerbation or injury. 10-Not Attempted due to Environmental Limitations-(lack of equipment, weather restraints, etc.). 88-Not Attempted due to Medical Conditions or Safety Concerns. Roll Left to Right (QC): 2 Sit to Lying (QC): 2 Sit to Stand (QC): 2 Chair/Fmq-qn-Ahgct Xfer(QC): 2 Car Transfer (QC): 88 Gait Training Does the Patient Walk?: No and Walking Goal IS indicated Walk 10 feet (QC): 88 Walk 50 ft with 2 Turns(QC): 88 Walk 150 ft (QC): 88 Walking 10ft/uneven surface-QC: 88 Wheelchair Training Does the Pt Use a Wheelchair?: Yes Distance: 300' Wheel 50 ft with 2 turns (QC): 1 Wheel 150 ft (QC): 1 Type of Wheelchair: Manual Stair Training 1 Step (curb) (QC): 88 4 Steps (QC): 88 12 Steps (QC): 88 Balance Picking up an Object (QC): 88 ADL-Treatment Eating (QC): 3 (mod A scooping food and bringing to mouth. Pt able to swallow with modified diet. Pt requires cues for use of adaptive handle due to decreased LUE movement/ strength/ endurance and tracking food to mouth. Pt requires mod physical cues to place bite into mouth as spoon is placed on R side of mouth by pt. ) Oral Hygiene (QC): 1 Shower/Bathe Self (QC): 1 (Bathing completed while seated on rolling shower chair. Pt used left UE to partially wash chest and abdomen, but required assist for all other areas. ) Upper Body Dressing (QC): 1 (Pt dependent to thread bilateral UE into nightgown, lumber puller head, and pull down in back. 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 Lord regarding Arana catheter discontinuation Continue crushed pills Continue Clinimix Living will and palliative care consult 05/08/20: Reconsult Dr. Lord since she is not ready for palliative care Discontinued Catheter monitor for retention Bowels are a bit loose hold laxatives Peg tube will be required so will consult general surgery on that 05/09/20: PEG to placement per Dr. 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 05/10/20: Arana cath DC and she is able to empty with some incontinence appreciate Dr Mckinney PEG today Will DC IVF once PEG functioning Monitor closely (1) CVA (cerebral vascular accident) (2) EMPHYSEMA, UNSPECIFIED Status: Chronic (3) Denial about severity of illness (4) History of shingles (5) Uncontrolled hypertension Status: Acute (6) Aphasia (7) Debility Status: Acute (8) Hypoxia Status: Chronic (9) Dementia (10) Delirium (11) Memory loss (12) Paroxysmal atrial fibrillation Status: Chronic (13) Myopathy (14) Noncompliance with medication regimen Status: Chronic JEROME NEAL DO May 10, 2020 09:14
--- NOTE | 2020-05-10 09:31 | Progress Note - Urology ---
Progress Note-Urology Progress Notes/Assess & Plan Progress/Assessment & Plan VOIDING WELL. EMPTIES WELL. CONTROL BETTER. OBSERVE Final Diagnosis URINE RETENTION BROOK MASON MD May 10, 2020 09:31
--- NOTE | 2020-05-10 10:30 | Physical Therapy Daily Note ---
PT Daily Note-Current Subjective Pt in bed upon arrival and agrees to co-treat. Pt more alert today. Use of two clinicians d/t poor activity tolerance and balance, impaired mobility, ROM, and weakness. Mental Status Patient Orientation: Person, Situation, [place] Attachments: IV Pt whispery voice and a loose, rattling cough. Transfers SCALE: Activities may be completed with or without assistive devices. 7-Mcrzbgsvgj-gtmytug completes the activity by him/herself with no assistance from a helper. 5-Set-up or Clean-up Assistance-helper sets up or cleans up; patient completes activity. [place] assists only prior to or following the activity. 4-Supervision or Touching Assistance-helper provides verbal cues and/or touching/steadying and/or contact guard assistance as patient completes activity. Assistance may be provided throughout the activity or intermittently. 3-Partial/Moderate Assistance-helper does LESS THAN HALF the effort. [place] lifts, holds or supports trunk or limbs, but provides less than half the effort. 2-Substantial/Maximal Assistance-helper does MORE THAN HALF the effort. [place] lifts or holds trunk or limbs and provides more than half the effort. 0-Mzofzbkrf-ddwxqu does ALL the effort. Patient does none of the effort to complete the activity. Or, the assistance of 2 or more helpers is required for the patient to complete the activity. If activity was not attempted, code reason: 7-Patient Refused. 9-Not Applicable-not attempted and the patient did not perform the activity before the current illness, exacerbation or injury. 10-Not Attempted due to Environmental Limitations-(lack of equipment, weather restraints, etc.). 88-Not Attempted due to Medical Conditions or Safety Concerns. Roll Left & Right (QC): 2 Sit to Lying (QC): 2 Lying to Sitting/Side of Bed(Q: 2 Sit to Stand (QC): 2 Chair/Cic-zg-Kgkfa Xfer(QC): 2 Pt required Max assist x2 for sitting to lying, PT turns legs as OT turns torso, using bed pad to help sit EOB. Pt sit to stand max assist x2. PT stood pt as OT assists in turning pt to shower chair transfer. Pt sit to stand while pulling on railing in shower room max assist PT stabilizes pt while OT dresses pt. Weight Bearing Right Lower Extremity: Right Weight Bearing/Tolerated Left Lower Extremity: Left Weight Bearing/Tolerated Wheelchair Training Does the Pt Use a Wheelchair?: Yes Type of Wheelchair: Manual Attempted to have pt use L side to propel WC, UE propelling rims and LE pulling forward. Pt unable to complete task and was total dependent on WC mobility. Exercises Supine Ex: Ankle pumps (PROM), Heel Slides, Knee to chest (PROM), Straight leg raise, Hip abd/add Supine Reps: 8 Treatments Pt supine to sit max assist x2 to sit EOB, one clinician directs LE and another directs torso. PT assist pt in static sitting balance and shower chair brought by bed. Pt transferred to shower chair, requiring VC to reach for arm rest of chair. Pt taken to shower room on unit. Pt required assist x2 for undressing, PT assist to stand pt as OT undressed pt. OT cleaned pt's LE as pt cleaned UE, requiring VC and TC on where to clean. PT assisted with sitting balance and keeping pt in midline as pt tends to lean to R side. PT and OT assisted pt in drying LE and pt dried UE. Pt sit to stand while pulling up on railing to don clothing. PT assist with standing balance while OT dressed pt. Pt taken back to room and transferred to bed max assist x2 as PT performed sit to stand and OT assisted in directing pt from behind to EOB. Pt sit to supine requiring max assistance as OT directed torso and PT directed LEs. Pt performed AROM/AAROM/PROM in all planes of R LE, requiring VC to assist with AROM. PT focused on transfers, static sitting/standing balance, LE stretching/strengthening/positioning. OT focused on dressing, bathing, UE stretching/strengthening/positioning. Assessment Current Status: Fair Progress Pt easily fatigues during tx needing frequent rest breaks. Pt requires VC and TC for transfers, mobility, and exercises. Pt very tired throughout tx, requiring VC to keep eyes open. When Dr. Verde entered room, pt able to speak up and complete full sentences. PT Short Term Goals Short Term Goals Time Frame: May 25, 2020 Roll Left & Right: 3 Sit to lyin Lying to sitting on side of be: 3 Sit to stand: 3 Chair/cmp-bi-xohmb transfer: 3 Toilet transfer: 3 Car transfer: 3 Walk 10 feet: 3 PT Compensation Manager Goals Compensation Manager Goals PT Long-Term Goals Time Frame: Jun 08, 2020 Roll Left & Right (QC): 4 Sit to Lying (QC): 4 Lying-Sitting on Side/Bed(QC): 4 Sit to Stand (QC): 4 Chair/Vhw-bp-Kzolk Xfer(QC): 4 Toilet Transfer (QC): 4 Car Transfer (QC): 4 Does the Patient Walk: No and Walking Goal IS indicated Walk 10 feet (QC): 4 Walk 50ft with 2 Turns (QC): 4 Walk 150 ft (QC): 4 Walking 10ft on Uneven Surface: 4 1 Step (curb) (QC): 4 4 Steps (QC): 4 12 Steps (QC): 9 Picking up an Object (QC): 3 Does the Pt use WC or Scooter?: Yes Wheel 50 feet with 2 turns (QC: 4 Type: Manual Wheel 150 feet: 4 PT Plan Treatment/Plan Treatment Plan: Continue Plan of Care Treatment Plan: Bed Mobility, Concurrent Therapy, Education, Functional Activity Rex, Functional Strength, Group Therapy, Gait, Safety, Therapeutic Exercise, Transfers Treatment Duration: Jun 08, 2020 Frequency: Modified Program (IRF) (01/05) Estimated Hrs Per Day: 1.5 hours per day Patient and/or Family Agrees t: Yes Safety Risks/Education Patient Education: Transfer Techniques, Correct Positioning, Safety Issues Teaching Recipient: Patient Teaching Methods: Demonstration, Discussion Response to Teaching: Verbalize Understanding, Reinforcement Needed Time/GCodes Time In: 915 Time Out: 1030 Total Billed Treatment Time: 75 Total Billed Treatment 1, FA x3 (45m), Ex x2 (30m) DANYELLE CALLEJAS PANTRY GOODS WORKER May 10, 2020 10:30
--- NOTE | 2020-05-10 10:51 | Occupational Ther Daily Note ---
OT Current Status-Daily Note Subjective Pt. in bed when therapy entered room. Pt. more alert this am. No c/o pain reported. Pt. agreeable to therapy. Mental Status/Objective Patient Orientation: Person, Unable to Assess Attachments: IV ADL-Treatment Therapy Code Descriptions/Definitions Functional [place] Measure: 0=Not Assessed/NA 4=Minimal Assistance 1=Total Assistance 5=Supervision or Setup 2=Maximal Assistance 6=Modified [place] 3=Moderate Assistance 7=Complete IndependenceSCALE: Activities may be completed with or without assistive devices. 1-Nddpxeraxe-tpxthdc completes the activity by him/herself with no assistance from a helper. 5-Set-up or Clean-up Assistance-helper sets up or cleans up; patient completes activity. [place] assists only prior to or following the activity. 4-Supervision or Touching Assistance-helper provides verbal cues and/or touching/steadying and/or contact guard assistance as patient completes a ctivity. Assistance may be provided throughout the activity or intermittently. 3-Partial/Moderate Assistance-helper does LESS THAN HALF the effort. [place] lifts, holds or supports trunk or limbs, but provides less than half the effort. 2-Substantial/Maximal Assistance-helper does MORE THAN HALF the effort. [place] lifts or holds trunk or limbs and provides more than half the effort. 9-Qaxnfgoux-amjqcy does ALL the effort. Patient does none of the effort to complete the activity. Or, the assistance of 2 or more helpers is required for the patient to complete the activity. If activity was not attempted, code reason: 7-Patient Refused. 9-Not Applicable-not attempted and the patient did not perform the activity before the current illness, exacerbation or injury. 10-Not Attempted due to Environmental Limitations-(lack of equipment, weather restraints, etc.). 88-Not Attempted due to Medical Conditions or Safety Concerns. Shower/Bathe Self (QC): 1 Lower Body Dressing (QC): 1 On/Off Footwear: 2 Toileting Hygiene (QC): 1 Co-treated with PT due to the need of 2 skilled therapists due to medical complexity. PT focusing on transfers, LE ROM, and bed mobility while OT facili tated UE ROM, functional transfers, and ADL skills. Pt. agreed to shower this am. She required max assist to transfer supine-sit at EOB and for transfer to shower chair with cutout. Once in rolling shower chair, pt transported to large shower room. Pt. requested using the bathroom, and a bucket was placed under the shower chair. Pt. required assist x2 to doff brief, one to help stand and one to doff brief. Pt. had incontinent of bowel in brief. Cleansing of jen area required assist x2 to stand and clean. OT cued pt to remove socks providing 1 step instructions and time for processing. Pt. able to bring ankle to knee, but unable to reach down and doff socks. OT completed the task. Pt. dependent for doffing shirt requiring 1 assist to lean forward and one to car repairer pullman head. OT handed pt wet washcloth with soap and cued to wash body. Pt attempted washing of face, chest, right arm, and upper legs when provided cues to initiate each task. OT completed the remainder of bathing. Pt. positioned at grabbar to pull herself to stand while donning brief, requiring assist x2 for standing and pulling brief over hips. Pt. reported feeling fatigued and OT completed the remainder of dressing. Pt. returned to room and required max A to transfer back into bed. Once in bed, pt. tolerated 15 minutes PROM/AROM/AAROM of all joints of R UE in all planes. Pt able to complete AROM at shoulder and elbow with multiple cues and extra time. Note that pt. was much more verbal today answering questions with full sentences and asking questions. Pt. properly positioned in bed, with call light in reach when therapy left the room. All needs met. Education OT Patient Education: Correct positioning, Energy conservation, Modified ADL techniques, Progress toward Goal/Update tx plan, Purpose of tx/functional activities, Rehab process, Transfer techniques Teaching Recipient: Patient Teaching Methods: Demonstration, Discussion Response to Teaching: Verbalize Understanding, Return Demonstration, Reinforcement Needed OT Short Term Goals Short Term Goals Time Frame: May 17, 2020 Shower/bathe self: 2 Upper body dressin Lower body dressin OT Fdc Goals Fdc Goals Time Frame: May 31, 2020 Eating (QC): 4 Oral Hygiene (QC): 4 Toileting Hygiene (QC): 3 Shower/Bathe Self (QC): 3 Upper Body Dressing (QC): 4 Lower Body Dressing (QC): 3 On/Off Footwear (QC): 3 Additional Goals: 1-Demonstrate ADL Tasks, 2-Verbalize Understanding, 3- ImproveStrength/Rex 1=Demonstrate adherence to instructed precautions during ADL tasks. 2=Patient will verbalize/demonstrate understanding of assistive devices/modifications for ADL. 3=Patient will improve strength/tolerance for activity to enable patient to perform ADL's. OT Education/Plan Problem List/Assessment Assessment: Decreased Activ Tolerance, Decreased UE Strength, Dependent Transfers, Impaired Bed Mobility, Impaired Coordination, Impaired Funct Balance, Impaired I ADL's, Impaired Self-Care Skills Discharge Recommendations Plan/Recommendations: Continue POC Therapy Discharge Recommendati: Post Acute OT Treatment Plan/Plan of Care Treatment,Training & Education: Yes Patient would benefit from OT for education, treatment and training to promote independence in ADL's, mobility, safety and/or upper extremity function for ADL's. Plan of Care: ADL Retraining, Functional Mobility, Group Exercise/Act as Ind, UE Funct Exercise/Act, UE Neuromus Re-Ed/Coord, Visual/Perceptual Retrain Treatment Duration: May 31, 2020 Frequency: Modified Program (IRF) (01/05) Estimated Hrs Per Day: Other Agreement: Yes Rehab Potential: Fair Time/GCodes Start Time: 09:15 Stop Time: 10:30 Total Time Billed (hr/min): 75 Billed Treatment Time 1, ADL 4 (60 minutes), EX (15 minutes) Co-treated with PT for full treatment. Please see above note for designated roles. JENELLE RAMSEY May 10, 2020 10:51
[2020-05-10] MEDS: AA 4.25% W/LYTES IN D5W IV SOL 1,000 ML IV SCH (11:35)
--- NOTE | 2020-05-10 13:30 | NUR ---
C/O NAUSEA. PT NPO FOR PEG TUBE PLACEMENT PROCEDURE. ALERTED DR. TILLMAN ORDERS REC'D. 1X DOSE ZOFRAN IV OK'D. GIVEN. ZOFRAN EDU. GIVEN TO DAUGHTER, PRESENT IN ROOM. GOOD ORAL CARES GIVEN. PATIENT RESTS, AWAITING SURGERY. WILL CON'T TO MONITOR.
[2020-05-10] MEDS ORDERED: ONDANSETRON 4 MG/2 ML (SDV) Z0FRAN ONE (14:07)
[2020-05-10] MEDS ORDERED: ONDANSETRON 4 MG/2 ML (SDV) Z0FRAN IVP NR (14:15)
--- NOTE | 2020-05-10 15:15 | NUR ---
PATIENT RETURNS TO FLOOR FROM SURGERY, SLEEPY. DAUGHTER ACCOMPANIES. TEMP 35.8, O2SAT 98% ON 2L/nc, HR 102, B/P 158/94. PT TO TAKE CARDIZEM IN PUDDING UPON WAKING FROM ANESTHESIA. ORDERS TO BEGIN USING TOMORROW. RECOMMENDATIONS REC'D FROM DIETARY FOR CALORIE INTAKE ONCE FEEDINGS BEGIN. NOTIFIED.
--- NOTE | 2020-05-10 15:35 | NUR ---
PATIENT TAKEN TO SURGERY FOR PEG TUBE PLACEMENT. DAUGHTER ACCOMPANIES PATIENT AND STAFF TO SURGERY WAITING AREA.
[2020-05-10] MEDS ORDERED: PROPOFOL INJECTION 50 ML IV ONE (15:49)
[2020-05-10] MEDS ORDERED: MIDAZOLAM 2 MG/2 ML (VERSED) VIAL ONE (15:49)
[2020-05-10] MEDS ORDERED: LACTATED RINGERS 1,000 ML IV ONE (15:53)
[2020-05-10] MEDS ORDERED: KETAMINE/NaCl 50 MG/5 ML SYRINGE (ED ONLY) ONE (15:54)
[2020-05-10] MEDS ORDERED: ESMOLOL 100 MG/10 ML (BREVIBLOC) VIAL ONE (16:09)
--- NOTE | 2020-05-10 17:20 | NUR ---
PT RETURNS FROM S/P WITH DAUGHTER AT SIDE; ON 2L/nc. PT TO TAKE HELD 09AM 240MG CARDIZEM UPON WAKING FROM PROCEDURE AND ABLE TO SWALLOW. NEW ORDERS REC'D TO D/C CLINIMAX IVF IN AM WITH STARTING TUBE FEEDING. PT TO BEGIN JEVITY 1.5 CONTINUOUS @ 10ML/HR, INCREASING BY 10ML/HR Q6HRS, UNTIL REACHING GOAL RATE OF 45ML/HR. FLUSH WITH 75ML H20 Q4HRS TO PROMOTE HYDRATION. WILL CON'T TO MONITOR.
[2020-05-10 17:38] VITALS: BP 158/94
--- NOTE | 2020-05-10 18:45 | NUR ---
PT AWAKE, B/P 158/109, CARDIZEM 240MG GIVEN PO WITH PUDDING. THIS RN REMINDS PT TO TUCK CHIN TO CHEST TO HELP PROMOTE SWALLOWING. PT CLEARING THROAT AFTER SWALLOWS WITH MINIMAL COUGHING. WILL CON'T TO MONITOR.
--- NOTE | 2020-05-11 00:30 | NUR ---
Pt resting with eyes closed. Opens eyes when turned but makes no effort to communicate. Oral care performed. Pt has weak non productive cough at this time. Attempted to use [place] to suction any secretions but unable. Zina-care given and pt turned. Will cont to monitor.
[2020-05-11] MEDS: APAP 325 MG/10.15 ML LIQ (TYLENOL) UDC PO PRN ×2 (00:55→10:04)
[2020-05-11 05:08] VITALS: BP 140/84
--- NOTE | 2020-05-11 05:27 | NUR ---
Pt has been more lethargic tonight than the previous noc. VS have been stable. Dr. Verde notified and new new orders at this time.
[2020-05-11 06:04] LABS: BASOPHILS % (AUTO) 0 % (0-10); EOSINOPHILS # (AUTO) 0.1 10^3/uL (0.0-0.3); EOSINOPHILS % (AUTO) 1 % (0-10); HEMATOCRIT 42 % (35-52); HEMOGLOBIN 13.7 G/DL (11.5-16.0); LYMPHOCYTES # (AUTO) 1.5 X 10^3 (1.0-4.0); LYMPHOCYTES % (AUTO) 10 % (12-44); MEAN CORPUSCULAR HEMOGLOBIN 30 PG (25-34); MEAN CORPUSCULAR HGB CONC 33 G/DL (32-36); MEAN CORPUSCULAR VOLUME 91 FL (80-99); MEAN PLATELET VOLUME 10.9 FL (7.4-10.4); MONOCYTES # (AUTO) 1.2 X 10^3 (0.0-1.0); MONOCYTES % (AUTO) 8 % (0-12); NEUTROPHILS # (AUTO) 11.9 X 10^3 (1.8-7.8); NEUTROPHILS % (AUTO) 80 % (42-75); PLATELET COUNT 339 10^3/uL (130-400); RED CELL DISTRIBUTION WIDTH 13.7 % (10.0-14.5); WHITE BLOOD COUNT 14.8 10^3/uL (4.3-11.0)
[2020-05-11 06:05] LABS: ALBUMIN 3.4 GM/DL (3.2-4.5); CHLORIDE 103 MMOL/L (98-107); POTASSIUM 4.4 MMOL/L (3.6-5.0); SODIUM 139 MMOL/L (135-145)
[2020-05-11 06:07] LABS: CALCIUM 9.5 MG/DL (8.5-10.1)
[2020-05-11 06:08] LABS: GLUCOSE 123 MG/DL (70-105); TOTAL PROTEIN 6.8 GM/DL (6.4-8.2)
[2020-05-11 06:09] LABS: BILIRUBIN,TOTAL 1.1 MG/DL (0.1-1.0); CARBON DIOXIDE 25 MMOL/L (21-32)
[2020-05-11 06:11] LABS: ALKALINE PHOSPHATASE 177 U/L (40-136); CREATININE SERUM 0.83 MG/DL (0.60-1.30); GFR ESTIMATED > 60
[2020-05-11 06:12] LABS: BUN/CREATININE RATIO 35
[2020-05-11 06:14] LABS: ALANINE AMINOTRANSFERASE 62 U/L (0-55)
[2020-05-11 06:23] LABS: BAND NEUTROPHILS 6 %; NEUTROPHILS % (MANUAL) 78 %
[2020-05-11 06:24] LABS: EOSINOPHILS % (MANUAL) 1 %; LYMPHOCYTES % (MANUAL) 10 %; MONOCYTES % (MANUAL) 5 %; RBC MORPH NORMAL
--- NOTE | 2020-05-11 07:33 | PM&R Progress Note ---
Subjective HPI/CC On Admission Date Seen by Provider: May 11, 2020 Time Seen by Provider: 10:00 Subjective/Events-last exam PEG tube was placed yesterday by Dr. Domingo later Restarted Sonia in order to have that surgery now back on it in PEG tube route Overall extremely debilitated and aphasia continues which she speaks clearer early in the day usually Coarseness in breath sounds noted and will monitor closely due to COPD and h/o PNA and CHF so will start Duoneb treatments DC Clinimix infusion since PEG tube is placed Overall prognosis is extremely poor Updated at bedside Checked meds and labs Conferred with RN Reviewed therapy notes Review of Systems General: Fatigue, Malaise Pulmonary: Dyspnea, Cough 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: Weakness, Incoordination Objective Exam Vital Signs Vital Signs Date Time Temp Pulse Resp B/P (MAP) Pulse Ox O2 Delivery O2 Flow Rate FiO2 05/11/20 05:08 36.6 119 21 140/84 (102) 93 Nasal Cannula 2.00 Capillary Refill : Less Than 3 Seconds General Appearance: No Apparent Distress, WD/WN, Chronically ill HEENT: PERRL/EOMI, Normal ENT Inspection, Pharynx Normal Neck: Full Range of Motion, Normal Inspection, Non Tender, Supple, Carotid Bruit Respiratory: Chest Non Tender, Lungs Clear, Normal Breath Sounds, No Accessory Muscle Use, No Respiratory Distress Cardiovascular: Regular Rate, Rhythm, No Edema, No Gallop, No JVD, No Murmur, Normal Peripheral Pulses Gastrointestinal: Normal Bowel Sounds, No Organomegaly, No Pulsatile Mass, Non Tender, Soft Back: Normal Inspection, No CVA Tenderness, No Vertebral Tenderness Extremity: Normal Capillary Refill, Normal Inspection, Normal Range of Motion, Non Tender, No Calf Tenderness, No Pedal Edema Neurologic/Psychiatric: Alert, Abnormal pca II-XII, Aphasia, Depressed Affect, Disoriented, Facial Droop, Motor Weakness (right sided) Skin: Normal Color, Warm/Dry Lymphatic: No Adenopathy Results/Procedures Lab Laboratory Tests 05/11/20 05:50 Patient resulted labs reviewed. FIM Transfers Therapy Code Descriptions/Definitions Functional [place] Measure: 0=Not Assessed/NA 4=Minimal Assistance 1=Total Assistance 5=Supervision or Setup 2=Maximal Assistance 6=Modified [place] 3=Moderate Assistance 7=Complete IndependenceSCALE: Activities may be completed with or without assistive devices. 8-Jlbyyzetgb-gxelzan completes the activity by him/herself with no assistance f rom a helper. 5-Set-up or Clean-up Assistance-helper sets up or cleans up; patient completes activity. [place] assists only prior to or following the activity. 4-Supervision or Touching Assistance-helper provides verbal cues and/or touching/steadying and/or contact guard assistance as patient completes activity. Assistance may be provided throughout the activity or intermittently. 3-Partial/Moderate Assistance-helper does LESS THAN HALF the effort. [place] lifts, holds or supports trunk or limbs, but provides less than half the effort. 2-Substantial/Maximal Assistance-helper does MORE THAN HALF the effort. [place] lifts or holds trunk or limbs and provides more than half the effort. 2-Qybjtrmxy-lnmwvq does ALL the effort. Patient does none of the effort to complete the activity. Or, the assistance of 2 or more helpers is required for the patient to complete the activity. If activity was not attempted, code reason: 7-Patient Refused. 9-Not Applicable-not attempted and the patient did not perform the activity before the current illness, exacerbation or injury. 10-Not Attempted due to Environmental Limitations-(lack of equipment, weather restraints, etc.). 88-Not Attempted due to Medical Conditions or Safety Concerns. Roll Left to Right (QC): 2 Sit to Lying (QC): 2 Sit to Stand (QC): 2 Chair/Mxg-uj-Fzefv Xfer(QC): 2 Car Transfer (QC): 88 Gait Training Does the Patient Walk?: No and Walking Goal IS indicated Walk 10 feet (QC): 88 Walk 50 ft with 2 Turns(QC): 88 Walk 150 ft (QC): 88 Walking 10ft/uneven surface-QC: 88 Wheelchair Training Does the Pt Use a Wheelchair?: Yes Distance: 300' Wheel 50 ft with 2 turns (QC): 1 Wheel 150 ft (QC): 1 Type of Wheelchair: Manual Stair Training 1 Step (curb) (QC): 88 4 Steps (QC): 88 12 Steps (QC): 88 Balance Picking up an Object (QC): 88 ADL-Treatment Eating (QC): 3 (mod A scooping food and bringing to mouth. Pt able to swallow with modified diet. Pt requires cues for use of adaptive handle due to decreased LUE movement/ strength/ endurance and tracking food to mouth. Pt requires mod physical cues to place bite into mouth as spoon is placed on R side of mouth by pt. ) Oral Hygiene (QC): 1 Shower/Bathe Self (QC): 1 Upper Body Dressing (QC): 1 (Pt dependent to thread bilateral UE into nightgown, bone puller head, and pull down in back. 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 Lord regarding Arana catheter discontinuation Continue crushed pills Continue Clinimix Living will and palliative care consult 05/08/20: Reconsult Dr. Lord since she is not ready for palliative care Discontinued Catheter monitor for retention Bowels are a bit loose hold laxatives Peg tube will be required so will consult general surgery on that 05/09/20: PEG to placement per Dr. 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 05/10/20: Arana cath DC and she is able to empty with some incontinence appreciate Dr Mckinney PEG today Will DC IVF once PEG functioning Monitor closely 05/11/20: PEG tube for nutrition and fluids DC Clinimix Duonebs to dry up upper airway secretions (1) CVA (cerebral vascular accident) (2) EMPHYSEMA, UNSPECIFIED Status: Chronic (3) Denial about severity of illness (4) History of shingles (5) Uncontrolled hypertension Status: Acute (6) Aphasia (7) Debility Status: Acute (8) Hypoxia Status: Chronic (9) Dementia (10) Delirium (11) Memory loss (12) Paroxysmal atrial fibrillation Status: Chronic (13) Myopathy (14) Noncompliance with medication regimen Status: Chronic JEROME NEAL DO May 11, 2020 07:33
[2020-05-11 09:00] VITALS: BP 132/65
[2020-05-11] MEDS ORDERED: PATIENT MAY USE OWN MED,SINGLE MED PO SCH (09:00)
[2020-05-11] MEDS ORDERED: INSTAFLEX PO SCH (09:00)
--- NOTE | 2020-05-11 09:03 | Diagnostic Imaging Report ---
INDICATION: Wheezing Upright portable chest shows cardiomegaly with normal vascularity. The lungs are clear. There is no effusion or pneumothorax. IMPRESSION: There is cardiomegaly with no failure. The vascular congestion and interstitial edema has resolved since the 05/03/20 study. Dictated by: Dictated on workstation # [id number]
[2020-05-11] MEDS: SENNA W/DOCUSATE (SENOKOT S) TABLET PO SCH ×2 (09:04→21:15)
[2020-05-11] MEDS: APIXABAN 5 MG (ELIQUIS) TABLET PO SCH ×2 (09:05→21:15)
[2020-05-11] MEDS: DOCUSATE SODIUM 100 MG (COLACE) CAP PO SCH ×2 (09:05→19:54)
[2020-05-11] MEDS: ASPIRIN 81 MG CHEW (CHILDREN'S ASA) PO SCH (09:05)
[2020-05-11] MEDS: polyethylene glycoL POWDER 17 GM (MIRALAX) PACK PO SCH ×2 (09:06→19:54)
--- NOTE | 2020-05-11 11:04 | Physical Therapy Daily Note ---
PT Daily Note-Current Subjective Pt non verbal, non responsive. Pt nurse present for assist in repositioning. Transfers SCALE: Activities may be completed with or without assistive devices. 6-Hhxxflirkc-huwjemj completes the activity by him/herself with no assistance from a helper. 5-Set-up or Clean-up Assistance-helper sets up or cleans up; patient completes activity. [place] assists only prior to or following the activity. 4-Supervision or Touching Assistance-helper provides verbal cues and/or touching/steadying and/or contact guard assistance as patient completes activity. Assistance may be provided throughout the activity or intermittently. 3-Partial/Moderate Assistance-helper does LESS THAN HALF the effort. [place] lifts, holds or supports trunk or limbs, but provides less than half the effort. 2-Substantial/Maximal Assistance-helper does MORE THAN HALF the effort. [place] lifts or holds trunk or limbs and provides more than half the effort. 5-Bdlgiafiw-cgbkdt does ALL the effort. Patient does none of the effort to complete the activity. Or, the assistance of 2 or more helpers is required for the patient to complete the activity. If activity was not attempted, code reason: 7-Patient Refused. 9-Not Applicable-not attempted and the patient did not perform the activity before the current illness, exacerbation or injury. 10-Not Attempted due to Environmental Limitations-(lack of equipment, weather restraints, etc.). 88-Not Attempted due to Medical Conditions or Safety Concerns. Weight Bearing Right Lower Extremity: Right Weight Bearing/Tolerated Left Lower Extremity: Left Weight Bearing/Tolerated Treatments Pt seen for PROM (B) UE and LE all joints and all planes within tolerable ranges. Pt was repositioned in semi sidelying on (L), (B) LE's floating on pillows. Compression pumps in place/on. Assessment Current Status: Poor Progress Possible change in status. Nurse present and monitoring pt. All vitals good at this time. PT Short Term Goals Short Term Goals Time Frame: May 25, 2020 Roll Left & Right: 3 Sit to lyin Lying to sitting on side of be: 3 Sit to stand: 3 Chair/xfl-ou-rulgx transfer: 3 Toilet transfer: 3 Car transfer: 3 Walk 10 feet: 3 PT Care Home Goals Care Home Goals PT Certified Public Accountant Goals Time Frame: Jun 08, 2020 Roll Left & Right (QC): 4 Sit to Lying (QC): 4 Lying-Sitting on Side/Bed(QC): 4 Sit to Stand (QC): 4 Chair/Rvj-vv-Lbswl Xfer(QC): 4 Toilet Transfer (QC): 4 Car Transfer (QC): 4 Does the Patient Walk: No and Walking Goal IS indicated Walk 10 feet (QC): 4 Walk 50ft with 2 Turns (QC): 4 Walk 150 ft (QC): 4 Walking 10ft on Uneven Surface: 4 1 Step (curb) (QC): 4 4 Steps (QC): 4 12 Steps (QC): 9 Picking up an Object (QC): 3 Does the Pt use WC or Scooter?: Yes Wheel 50 feet with 2 turns (QC: 4 Type: Manual Wheel 150 feet: 4 PT Plan Treatment/Plan Treatment Plan: Continue Plan of Care Treatment Plan: Bed Mobility, Concurrent Therapy, Education, Functional Activity Rex, Functional Strength, Group Therapy, Gait, Safety, Therapeutic Exercise, Transfers Treatment Duration: Jun 08, 2020 Frequency: Modified Program (IRF) (01/05) Estimated Hrs Per Day: 1.5 hours per day Patient and/or Family Agrees t: Yes Time/GCodes Time In: 833 Time Out: 856 Total Billed Treatment Time: 23 Total Billed Treatment 1, ther ex 23' CHRISTOPHER BARKLEY CPTA May 11, 2020 11:04
[2020-05-11] MEDS: RT-ALBUTEROL/IPRATROPIUM 3 ML (DUONEB) VIAL INH SCH ×3 (14:23→19:31)
--- NOTE | 2020-05-11 15:20 | NUR ---
Started tube feeding 10ml/hr per order. Delayed starting d/t unable to obtain kangaroo pump.
[2020-05-11 18:56] VITALS: BP 116/65
--- NOTE | 2020-05-11 21:20 | NUR ---
Peg tube feeding at 10cc/hr with Jevity. 0 residual noted and pt tolerating well. Rate increased to 20cc/hr. Cont to monitor
--- NOTE | 2020-05-12 01:05 | NUR ---
Pt c/o's nausea. Zofran 4mg ODT given at this time and Peg tube feeding decreased back down to 10cc/hr. Cont to monitor.
--- NOTE | 2020-05-12 02:30 | NUR ---
Pt no longer c/o's nausea. Peg tube feeding residual is 5 cc. Rate increased back to 20cc/hr. Cont to monitor.
[2020-05-12 05:18] VITALS: BP 136/72
--- NOTE | 2020-05-12 06:47 | NUR ---
Peg tube feeding increased to 30 cc/hr. Pt mariama well at this time. Cont to monitor
[2020-05-12 08:00] VITALS: BP 133/72
[2020-05-12] MEDS: RT-ALBUTEROL/IPRATROPIUM 3 ML (DUONEB) VIAL INH SCH ×3 (08:06→19:32)
--- NOTE | 2020-05-12 08:51 | PM&R Progress Note ---
Subjective HPI/CC On Admission Date Seen by Provider: May 12, 2020 Time Seen by Provider: 12:45 Subjective/Events-last exam PEG tube was Wednesday by Dr. Domingo and is functioning properly Restarted Elijohn in order to have that surgery now back on it in PEG tube route Overall extremely debilitated and aphasia continues which she speaks clearer early in the day usually Coarseness in breath sounds much improved with Duonebs Patient was able to use her call light and ask for bedpan which is very much improved Overall prognosis is extremely poor half-way Checked meds and labs Conferred with RN Reviewed therapy notes Review of Systems General: Fatigue, Malaise 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: Weakness, Incoordination Objective Exam Vital Signs Vital Signs Date Time Temp Pulse Resp B/P (MAP) Pulse Ox O2 Delivery O2 Flow Rate FiO2 05/12/20 15:21 93 Nasal Cannula 1.00 05/12/20 08:00 36.6 76 20 133/72 (92) Capillary Refill : Less Than 3 Seconds General Appearance: No Apparent Distress, WD/WN, Chronically ill HEENT: PERRL/EOMI, Normal ENT Inspection, Pharynx Normal Neck: Full Range of Motion, Normal Inspection, Non Tender, Supple, Carotid Bruit Respiratory: Chest Non Tender, Lungs Clear, Normal Breath Sounds, No Accessory Muscle Use, No Respiratory Distress Cardiovascular: Regular Rate, Rhythm, No Edema, No Gallop, No JVD, No Murmur, Normal Peripheral Pulses Gastrointestinal: Normal Bowel Sounds, No Organomegaly, No Pulsatile Mass, Non Tender, Soft Back: Normal Inspection, No CVA Tenderness, No Vertebral Tenderness Extremity: Normal Capillary Refill, Normal Inspection, Normal Range of Motion, Non Tender, No Calf Tenderness, No Pedal Edema Neurologic/Psychiatric: Alert, Abnormal special educator II-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 FIM Transfers Therapy Code Descriptions/Definitions Functional [place] Measure: 0=Not Assessed/NA 4=Minimal Assistance 1=Total Assistance 5=Supervision or Setup 2=Maximal Assistance 6=Modified [place] 3=Moderate Assistance 7=Complete IndependenceSCALE: Activities may be completed with or without assistive devices. 6-Yrlesvsrvv-twesodp completes the activity by him/herself with no assistance from a helper. 5-Set-up or Clean-up Assistance-helper sets up or cleans up; patient completes activity. [place] assists only prior to or following the activity. 4-Supervision or Touching Assistance-helper provides verbal cues and/or touching/steadying and/or contact guard assistance as patient completes activity. Assistance may be provided throughout the activity or intermittently. 3-Partial/Moderate Assistance-helper does LESS THAN HALF the effort. [place] lifts, holds or supports trunk or limbs, but provides less than half the effort. 2-Substantial/Maximal Assistance-helper does MORE THAN HALF the effort. [place] lifts or holds trunk or limbs and provides more than half the effort. 9-Msmiwkppc-sauxxa does ALL the effort. Patient does none of the effort to complete the activity. Or, the assistance of 2 or more helpers is required for the patient to complete the activity. If activity was not attempted, code reason: 7-Patient Refused. 9-Not Applicable-not attempted and the patient did not perform the activity before the current illness, exacerbation or injury. 10-Not Attempted due to Environmental Limitations-(lack of equipment, weather restraints, etc.). 88-Not Attempted due to Medical Conditions or Safety Concerns. Roll Left to Right (QC): 2 Sit to Lying (QC): 2 Sit to Stand (QC): 2 Chair/Upt-ro-Vxmgt Xfer(QC): 2 Car Transfer (QC): 88 Gait Training Does the Patient Walk?: No and Walking Goal IS indicated Walk 10 feet (QC): 88 Walk 50 ft with 2 Turns(QC): 88 Walk 150 ft (QC): 88 Walking 10ft/uneven surface-QC: 88 Wheelchair Training Does the Pt Use a Wheelchair?: Yes Distance: 300' Wheel 50 ft with 2 turns (QC): 1 Wheel 150 ft (QC): 1 Type of Wheelchair: Manual Stair Training 1 Step (curb) (QC): 88 4 Steps (QC): 88 12 Steps (QC): 88 Balance Picking up an Object (QC): 88 ADL-Treatment Eating (QC): 3 (mod A scooping food and bringing to mouth. Pt able to swallow with modified diet. Pt requires cues for use of adaptive handle due to decreased LUE movement/ strength/ endurance and tracking food to mouth. Pt requires mod physical cues to place bite into mouth as spoon is placed on R side of mouth by pt. ) Oral Hygiene (QC): 1 Shower/Bathe Self (QC): 1 Upper Body Dressing (QC): 1 (Pt dependent to thread bilateral UE into nightgown, tail puller head, and pull down in back. 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 Lord regarding Arana catheter discontinuation Continue crushed pills Continue Clinimix Living will and palliative care consult 05/08/20: Reconsult Dr. Lord since she is not ready for palliative care Discontinued Catheter monitor for retention Bowels are a bit loose hold laxatives Peg tube will be required so will consult general surgery on that 05/09/20: PEG to placement per Dr. Chayo Scott today Continue therapies Prognosis poor watermaster considering catastrophic level of stroke 05/10/20: Arana cath DC and she is able to empty with some incontinence appreciate Dr Mckinney PEG today Will DC IVF once PEG functioning Monitor closely 05/11/20: PEG tube for nutrition and fluids DC Clinimix Duonebs to dry up upper airway secretions 05/12/20: Maintain PEG tube feedings and free water Continue to use swallowing and ST to work with her for that to become stronger (1) CVA (cerebral vascular accident) (2) EMPHYSEMA, UNSPECIFIED Status: Chronic (3) Denial about severity of illness (4) History of shingles (5) Uncontrolled hypertension Status: Acute (6) Aphasia (7) Debility Status: Acute (8) Hypoxia Status: Chronic (9) Dementia (10) Delirium (11) Memory loss (12) Paroxysmal atrial fibrillation Status: Chronic (13) Myopathy (14) Noncompliance with medication regimen Status: Chronic JEROME NEAL DO May 12, 2020 08:51
[2020-05-12] MEDS: APIXABAN 5 MG (ELIQUIS) TABLET PO SCH ×2 (09:14→21:13)
[2020-05-12] MEDS: ASPIRIN 81 MG CHEW (CHILDREN'S ASA) PO SCH (09:14)
[2020-05-12] MEDS: SENNA W/DOCUSATE (SENOKOT S) TABLET PO SCH ×2 (09:14→19:33)
[2020-05-12] MEDS: polyethylene glycoL POWDER 17 GM (MIRALAX) PACK PO SCH ×2 (09:15→19:33)
[2020-05-12] MEDS: DOCUSATE SODIUM 100 MG (COLACE) CAP PO SCH ×2 (09:15→19:32)
[2020-05-12] MEDS: APAP 325 MG/10.15 ML LIQ (TYLENOL) UDC PO PRN ×2 (09:29→18:01)
[2020-05-12 17:42] VITALS: BP 125/59
[2020-05-12] MEDS: MELATONIN 3 MG TABLET PO PRN (21:13)
[2020-05-13 05:14] VITALS: BP 149/70
[2020-05-13 06:23] LABS: BASOPHILS % (AUTO) 0 % (0-10); EOSINOPHILS # (AUTO) 0.3 10^3/uL (0.0-0.3); EOSINOPHILS % (AUTO) 3 % (0-10); HEMATOCRIT 41 % (35-52); HEMOGLOBIN 12.9 G/DL (11.5-16.0); LYMPHOCYTES # (AUTO) 1.4 X 10^3 (1.0-4.0); LYMPHOCYTES % (AUTO) 14 % (12-44); MEAN CORPUSCULAR HEMOGLOBIN 29 PG (25-34); MEAN CORPUSCULAR HGB CONC 32 G/DL (32-36); MEAN CORPUSCULAR VOLUME 93 FL (80-99); MEAN PLATELET VOLUME 10.7 FL (7.4-10.4); MONOCYTES # (AUTO) 0.8 X 10^3 (0.0-1.0); MONOCYTES % (AUTO) 8 % (0-12); NEUTROPHILS # (AUTO) 7.4 X 10^3 (1.8-7.8); NEUTROPHILS % (AUTO) 75 % (42-75); PLATELET COUNT 282 10^3/uL (130-400); RED CELL DISTRIBUTION WIDTH 13.8 % (10.0-14.5); WHITE BLOOD COUNT 9.9 10^3/uL (4.3-11.0)
[2020-05-13 06:37] LABS: ALBUMIN 3.3 GM/DL (3.2-4.5); CHLORIDE 105 MMOL/L (98-107); POTASSIUM 3.9 MMOL/L (3.6-5.0); SODIUM 142 MMOL/L (135-145)
[2020-05-13 06:38] LABS: CALCIUM 9.3 MG/DL (8.5-10.1)
[2020-05-13 06:39] LABS: GLUCOSE 141 MG/DL (70-105); TOTAL PROTEIN 6.6 GM/DL (6.4-8.2)
[2020-05-13 06:40] LABS: CARBON DIOXIDE 27 MMOL/L (21-32)
[2020-05-13 06:41] LABS: BILIRUBIN,TOTAL 0.6 MG/DL (0.1-1.0)
[2020-05-13 06:43] LABS: ALKALINE PHOSPHATASE 216 U/L (40-136); CREATININE SERUM 0.75 MG/DL (0.60-1.30); GFR ESTIMATED > 60
[2020-05-13 06:44] LABS: BUN/CREATININE RATIO 29
[2020-05-13 06:46] LABS: ALANINE AMINOTRANSFERASE 73 U/L (0-55)
--- NOTE | 2020-05-13 09:16 | PM&R Progress Note ---
Subjective HPI/CC On Admission Date Seen by Provider: May 13, 2020 Time Seen by Provider: 09:15 Subjective/Events-last exam Tube feedings are helpful in providing energy [place] liquid with food maintained Right hand waved to the nurse today Lucid today Increased LFT's noted Overall improved Checked meds and labs Conferred with RN Reviewed therapy notes Review of Systems 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: Weakness, Numbness, Incoordination Objective Exam Vital Signs Vital Signs Date Time Temp Pulse Resp B/P (MAP) Pulse Ox O2 Delivery O2 Flow Rate FiO2 05/13/20 19:27 96 Room Air 05/13/20 18:32 35.6 87 16 154/79 (104) 1.00 Capillary Refill : Less Than 3 Seconds General Appearance: No Apparent Distress, WD/WN, Chronically ill HEENT: PERRL/EOMI, Normal ENT Inspection, Pharynx Normal Neck: Full Range of Motion, Normal Inspection, Non Tender, Supple, Carotid Bruit Respiratory: Chest Non Tender, Lungs Clear, Normal Breath Sounds, No Accessory Muscle Use, No Respiratory Distress Cardiovascular: Regular Rate, Rhythm, No Edema, No Gallop, No JVD, No Murmur, Normal Peripheral Pulses Gastrointestinal: Normal Bowel Sounds, No Organomegaly, No Pulsatile Mass, Non Tender, Soft Back: Normal Inspection, No CVA Tenderness, No Vertebral Tenderness Extremity: Normal Capillary Refill, Normal Inspection, Normal Range of Motion, Non Tender, No Calf Tenderness, No Pedal Edema Neurologic/Psychiatric: Alert, Abnormal steam hand II-XII, Aphasia, Depressed Affect, Disoriented, Facial Droop, Motor Weakness (right sided) Skin: Normal Color, Warm/Dry Lymphatic: No Adenopathy Results/Procedures Lab Laboratory Tests 05/13/20 06:10 Patient resulted labs reviewed. FIM Transfers Therapy Code Descriptions/Definitions Functional [place] Measure: 0=Not Assessed/NA 4=Minimal Assistance 1=Total Assistance 5=Supervision or Setup 2=Maximal Assistance 6=Modified [place] 3=Moderate Assistance 7=Complete IndependenceSCALE: Activities may be completed with or without assistive devices. 1-Aciwdipmxk-ekabymk completes the activity by him/herself with no assistance from a helper. 5-Set-up or Clean-up Assistance-helper sets up or cleans up; patient completes activity. [place] assists only prior to or following the activity. 4-Supervision or Touching Assistance-helper provides verbal cues and/or touching/steadying and/or contact guard assistance as patient completes activity. Assistance may be provided throughout the activity or intermittently. 3-Partial/Moderate Assistance-helper does LESS THAN HALF the effort. [place] lifts, holds or supports trunk or limbs, but provides less than half the effort. 2-Substantial/Maximal Assistance-helper does MORE THAN HALF the effort. [place] lifts or holds trunk or limbs and provides more than half the effort. 7-Vtjiaewbw-qpdobg does ALL the effort. Patient does none of the effort to complete the activity. Or, the assistance of 2 or more helpers is required for the patient to complete the activity. If activity was not attempted, code reason: 7-Patient Refused. 9-Not Applicable-not attempted and the patient did not perform the activity before the current illness, exacerbation or injury. 10-Not Attempted due to Environmental Limitations-(lack of equipment, weather restraints, etc.). 88-Not Attempted due to Medical Conditions or Safety Concerns. Roll Left to Right (QC): 2 Sit to Lying (QC): 2 Sit to Stand (QC): 2 Chair/Bma-mi-Avcwp Xfer(QC): 2 Car Transfer (QC): 88 Gait Training Does the Patient Walk?: No and Walking Goal IS indicated Walk 10 feet (QC): 88 Walk 50 ft with 2 Turns(QC): 88 Walk 150 ft (QC): 88 Walking 10ft/uneven surface-QC: 88 Wheelchair Training Does the Pt Use a Wheelchair?: Yes Distance: 300' Wheel 50 ft with 2 turns (QC): 1 Wheel 150 ft (QC): 1 Type of Wheelchair: Manual Stair Training 1 Step (curb) (QC): 88 4 Steps (QC): 88 12 Steps (QC): 88 Balance Picking up an Object (QC): 88 ADL-Treatment Eating (QC): 3 (mod A scooping food and bringing to mouth. Pt able to swallow with modified diet. Pt requires cues for use of adaptive handle due to decreased LUE movement/ strength/ endurance and tracking food to mouth. Pt requires mod physical cues to place bite into mouth as spoon is placed on R side of mouth by pt. ) Oral Hygiene (QC): 1 Shower/Bathe Self (QC): 1 Upper Body Dressing (QC): 1 (Pt dependent to thread bilateral UE into nightgown, sinker puller head, and pull down in back. 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 Lord regarding Arana catheter discontinuation Continue crushed pills Continue Clinimix Living will and palliative care consult 05/08/20: Reconsult Dr. Lord since she is not ready for palliative care Discontinued Catheter monitor for retention Bowels are a bit loose hold laxatives Peg tube will be required so will consult general surgery on that 05/09/20: PEG to placement per Dr. Chayo Scott today Continue therapies Prognosis poor fpc considering catastrophic level of stroke 05/10/20: Arana cath DC and she is able to empty with some incontinence appreciate Dr Mckinney PEG today Will DC IVF once PEG functioning Monitor closely 05/11/20: PEG tube for nutrition and fluids DC Clinimix Duonebs to dry up upper airway secretions 05/12/20: Maintain PEG tube feedings and free water Continue to use swallowing and ST to work with her for that to become stronger 05/13/20: Lab reviewed Monitor BP Nebs TF tolerated and change to bolus feeds (1) CVA (cerebral vascular accident) (2) EMPHYSEMA, UNSPECIFIED Status: Chronic (3) Denial about severity of illness (4) History of shingles (5) Uncontrolled hypertension Status: Acute (6) Aphasia (7) Debility Status: Acute (8) Hypoxia Status: Chronic (9) Dementia (10) Delirium (11) Memory loss (12) Paroxysmal atrial fibrillation Status: Chronic (13) Myopathy (14) Noncompliance with medication regimen Status: Chronic JEROME NEAL DO May 13, 2020 09:16
[2020-05-13] MEDS: APIXABAN 5 MG (ELIQUIS) TABLET PO SCH ×2 (09:29→21:58)
[2020-05-13] MEDS: SENNA W/DOCUSATE (SENOKOT S) TABLET PO SCH ×2 (09:29→21:58)
[2020-05-13] MEDS: ASPIRIN 81 MG CHEW (CHILDREN'S ASA) PO SCH (09:29)
[2020-05-13] MEDS: polyethylene glycoL POWDER 17 GM (MIRALAX) PACK PO SCH ×2 (09:30→21:51)
[2020-05-13] MEDS: DOCUSATE SODIUM 100 MG (COLACE) CAP PO SCH ×2 (09:30→21:51)
[2020-05-13] MEDS: RT-ALBUTEROL/IPRATROPIUM 3 ML (DUONEB) VIAL INH SCH ×4 (10:00→19:32)
--- NOTE | 2020-05-13 10:00 | NUR ---
DR. AMSON HERE, NEW ORDERS GIVEN TO BLADDER SCAN TODAY POST VOID AND CONTACT HIM IF GREATER THAN 100ML. BLADDER SCAN POST VOID @ [phone] 55ML.
--- NOTE | 2020-05-13 10:02 | Speech Therapy Daily Note ---
Speech Daily Progress Note Subjective Date Seen by Provider: May 13, 2020 Time Seen by Provider: 00:30 Patient was much more alert and talkative today. Objective Patient completed memory tasks related to her needs at 80% with decreased (15%) v/c's. Assessment Assessment Current Status: Good Progress Treatment Plan Continue Plan of Care Speech Short Term Goals Short Term Goals Short Term Goals 1) Patient will answer y/n questions related to herself with 80% or greater with minimal cues. 2) Patient will respond to questions related to items/pictures at 80% or greater with minimal cues. 3) Patient will tolerate least restrictive diet level without s/s of aspiration at 80% or greater. 4) Patient/caregiver will utilize compensatory strategies as trained at 90% or greater with minimal cues. Speech Ship Rigger Goals Nursing Home Goals Patient will improve communication necessary for safety and daily living tasks with minimal assist. Patient will maintain adequate nutrition/hydration via safe, effective swallow function. Speech-Plan Patient/Family Goals Patient/Family Goals: Patient's family would like her to return home upon discharge. Treatment Plan Speech Therapy Treatment Plan: Continue Plan of Care Treatment Duration: May 17, 2020 Frequency: 5 times per week Estimated Hrs Per Day: .5 hour per day Rehab Potential: Fair Barriers to Learning: Patient's medical status Pt/Family Agrees to Plan: Yes Safety Risks/Education Teaching Recipient: Patient Teaching Methods: Demonstration, Discussion Response to Teaching: Verbalize Understanding, Return Demonstration Education Topics Provided: Continued safety and communicaation Time Speech Therapy Time In: 08:30 Speech Therapy Time Out: 09:00 Total Billed Time: 30 Billed Treatment Time 1PATIENCE B[facility] ST May 13, 2020 10:02
--- NOTE | 2020-05-13 10:43 | Occupational Ther Daily Note ---
OT Current Status-Daily Note Subjective Pt in bed with nursing in room when therapy entered. Pt more alert this am. No c/o pain. Mental Status/Objective Patient Orientation: Unable to Assess Attachments: IV, PEG Tube ADL-Treatment Therapy Code Descriptions/Definitions Functional [place] Measure: 0=Not Assessed/NA 4=Minimal Assistance 1=Total Assistance 5=Supervision or Setup 2=Maximal Assistance 6=Modified [place] 3=Moderate Assistance 7=Complete IndependenceSCALE: Activities may be completed with or without assistive devices. 1-Ujrxomruzr-xdfghxr completes the activity by him/herself with no assistance from a helper. 5-Set-up or Clean-up Assistance-helper sets up or cleans up; patient completes activity. [place] assists only prior to or following the activity. 4-Supervision or Touching Assistance-helper provides verbal cues and/or touching/steadying and/or contact guard assistance as patient completes activity. Assistance may be provided throughout the activity or intermittently. 3-Partial/Moderate Assistance-helper does LESS THAN HALF the effort. [place] lifts, holds or supports trunk or limbs, but provides less than half the effort. 2-Substantial/Maximal Assistance-helper does MORE THAN HALF the effort. [place] lifts or holds trunk or limbs and provides more than half the effort. 0-Scvuouidk-vbfmhd does ALL the effort. Patient does none of the effort to complete the activity. Or, the assistance of 2 or more helpers is required for the patient to complete the activity. If activity was not attempted, code reason: 7-Patient Refused. 9-Not Applicable-not attempted and the patient did not perform the activity before the current illness, exacerbation or injury. 10-Not Attempted due to Environmental Limitations-(lack of equipment, weather restraints, etc.). 88-Not Attempted due to Medical Conditions or Safety Concerns. Shower/Bathe Self (QC): 1 Upper Body Dressing (QC): 2 On/Off Footwear: 2 Toileting Hygiene (QC): 1 Co-treat with PT due to the need of two skilled clinicians due to medical complexity. PT focused on LE ROM and strength, bed mobility, and transfers. OT facilitated ADL skills, UE ROM, and functional transfers. Pt. in bed when therapy entered room. Pt. requested cleaning up stating "this gown is dirty". Max assist needed for bed mobility to roll side to side. Max assist x2 required to doff/don brief and clean jen area while in bed. Pt. handed wet washcloth and cued to wash face. Max assist required to wash during bed bath. Pt. required multiple cues to redirect to bathing from touching PEG tube and line. Pt. able to lift each foot while therapist dons slipper socks. Supine-sit transfer requires assist x2. Once seated EOB, dependent transfer to w/c. Pt. cued to initiate self propelling w/c to gym and given extra time to process and attempt. Pt. kicked feet as instructed, but could not propel. Once in gym, pt. dependent squat pivot transfer to mat. Pt. given multiple cues and positioned to properly maintain unsupported sitting balance. After verbal and tactile cues for weightbearing through BUE, pt. able to sit unsupported with SBA for approximately 30 seconds on two attempts with a rest break between.A mirror was placed in front of the pt. so that she could watch and correct posture. To work on dynamic sitting balance with minimal support and tactile cues to maintain posture, pt. was told to reach and grab a cone with left UE. Once she had done so, she was instructed to cross midline and stack the cone on another one, moving in a diagonal motion and crossing midline required for daily tasks. The therapist moved the cones throughout the activity to work on dynamic sitting balance and visual scanning. Pt. required multiple cues to look at the cone and where she was going to stack it. Dependent squat pivot transfer to w/c needed. Pt. transferred back to room and dependent squat pivot transfer used to position her in reclining chair. in room. Call light within reach. All needs met. Education OT Patient Education: Correct positioning, Modified ADL techniques, Progress toward Goal/Update tx plan, Purpose of tx/functional activities, Reviewed pre cautions, Rehab process, Safety issues, Transfer techniques, W/C management Teaching Recipient: Patient, Family Teaching Methods: Demonstration, Discussion Response to Teaching: Verbalize Understanding, Return Demonstration, Reinforcement Needed OT Short Term Goals Short Term Goals Time Frame: May 17, 2020 Shower/bathe self: 2 Upper body dressin Lower body dressin OT Golf Cart Repairer Goals Halfway Goals Time Frame: May 31, 2020 Eating (QC): 4 Oral Hygiene (QC): 4 Toileting Hygiene (QC): 3 Shower/Bathe Self (QC): 3 Upper Body Dressing (QC): 4 Lower Body Dressing (QC): 3 On/Off Footwear (QC): 3 Additional Goals: 1-Demonstrate ADL Tasks, 2-Verbalize Understanding, 3- ImproveStrength/Rex 1=Demonstrate adherence to instructed precautions during ADL tasks. 2=Patient will verbalize/demonstrate understanding of assistive devices/modifications for ADL. 3=Patient will improve strength/tolerance for activity to enable patient to perform ADL's. OT Education/Plan Problem List/Assessment Assessment: Decreased Activ Tolerance, Decreased Safety Aware, Decreased UE Strength, Dependent Transfers, Impaired Bed Mobility, Impaired Coordination, Impaired Funct Balance, Impaired I ADL's, Impaired Self-Care Skills, Restricted Funct UE ROM, Visual-Perceptual Deficit Discharge Recommendations Plan/Recommendations: Continue POC Therapy Discharge Recommendati: Post Acute OT Treatment Plan/Plan of Care Treatment,Training & Education: Yes Patient would benefit from OT for education, treatment and training to promote independence in ADL's, mobility, safety and/or upper extremity function for ADL's. Plan of Care: ADL Retraining, Functional Mobility, Group Exercise/Act as Ind, UE Funct Exercise/Act, UE Neuromus Re-Ed/Coord, Visual/Perceptual Retrain Treatment Duration: May 31, 2020 Frequency: Modified Program (IRF) (01/05) Estimated Hrs Per Day: Other Agreement: Yes Rehab Potential: Fair Time/GCodes Start Time: 09:15 Stop Time: 10:30 Total Time Billed (hr/min): 75 Billed Treatment Time 1, ADL 2 (30 minutes), FA 3 (45 minutes) Co-treat with PT time stamp assembler. See above note for designated roles. RILEY DUBON OT May 13, 2020 10:42
--- NOTE | 2020-05-13 11:04 | Progress Note - Urology ---
Progress Note-Urology Progress Notes/Assess & Plan Progress/Assessment & Plan VOIDING WELL, SOME INCONTINENCE, OBSERVE AND CHECK PVR TODAY Final Diagnosis URINE RETENTION BROOK MASON MD May 13, 2020 11:04
--- NOTE | 2020-05-13 11:28 | NUR ---
Palliative Care RN in to see patient. is at bedside and patient is laying on right side with HOB elevated. She is alert but unable to determine orientation due to whispered speech. The only thing I was able to make out was in reference to her PEG tube...which she repots "I didn't want that". She is not expressive in her facial features, rather gives a confused directed gaze when asked a question. Unsure what the plan is for discharge but currently they are not interested in hospice. If this should change please call and I will be happy to visit again with the patient and her .
--- NOTE | 2020-05-13 12:21 | Physical Therapy Daily Note ---
PT Daily Note-Current Subjective Pt in bed upon arrival and is more alert today. Pt agrees to co-treat. Mental Status Patient Orientation: Person, Place, Time, Situation Pt was on O2 upon entering room as she had been asleep, this was discontinued for tx as per orders, O2 for 2L was donned again after pt was returned to recliner for napping. Transfers SCALE: Activities may be completed with or without assistive devices. 9-Gfshuydphn-sjjemmr completes the activity by him/herself with no assistance from a helper. 5-Set-up or Clean-up Assistance-helper sets up or cleans up; patient completes activity. [place] assists only prior to or following the activity. 4-Supervision or Touching Assistance-helper provides verbal cues and/or touching/steadying and/or contact guard assistance as patient completes activity. Assistance may be provided throughout the activity or intermittently. 3-Partial/Moderate Assistance-helper does LESS THAN HALF the effort. [place] lifts, holds or supports trunk or limbs, but provides less than half the effort. 2-Substantial/Maximal Assistance-helper does MORE THAN HALF the effort. [place] lifts or holds trunk or limbs and provides more than half the effort. 7-Zdysbmdcw-viaovu does ALL the effort. Patient does none of the effort to complete the activity. Or, the assistance of 2 or more helpers is required for the patient to complete the activity. If activity was not attempted, code reason: 7-Patient Refused. 9-Not Applicable-not attempted and the patient did not perform the activity before the current illness, exacerbation or injury. 10-Not Attempted due to Environmental Limitations-(lack of equipment, weather restraints, etc.). 88-Not Attempted due to Medical Conditions or Safety Concerns. Roll Left & Right (QC): 2 Sit to Lying (QC): 2 Lying to Sitting/Side of Bed(Q: 2 Sit to Stand (QC): 2 Chair/Kbl-oy-Kfgoh Xfer(QC): 2 Pt rolled R to L during bed bath at beginning of tx. Pt able to bend leg and p ush, requiring max assistance to roll completely onto side as PT rolled torso and OT cleaned pt for bed bath. Pt was assisted up to head of bed max assist x2 with use of bed pad under pt. Pt supine to sit, able to move legs close to EOB, requiring PT to assist get LE off of bed and OT directing torso into upright position. Pt transferred bed to chair max assist x1, PT SPT to L side to . Pt assisted in WB briefly during transfer, but doesn't always assist.Education and instruction was given to reach for arm rest, OT hand over hand contact bringing L hand to arm rest. Upon returning to room, PT SPT pt back to recliner, pt lifted back in chair by OT and PT with use of bed pad under pt for more upright posture. Weight Bearing Right Lower Extremity: Right Weight Bearing/Tolerated Left Lower Extremity: Left Weight Bearing/Tolerated Gait Training Does the Patient Walk?: No and Walking Goal NOT indicated Wheelchair Training Does the Pt Use a Wheelchair?: Yes Wheel 50 ft with 2 turns (QC): 2 Wheel 150 ft (QC): 2 Type of Wheelchair: Manual Pt was instructed to use LE to assist propel WC forward in hallway, pt unable to do so, PT propelled WC to gym as OT followed with IV pole. Exercises Supine Ex: Straight leg raise Supine Reps: 6 Pt performed SLR on BLE with VC. Pt able to perform activity indep. Treatments Pt performs supine exercise in bed as OT prepares for bed bath. Pt doffs gown max assist, PT doffing L arm and OT doffing R arm. Pt able to lift arms to get gown out from under arms. Pt attempts to clean UE as PT and OT cleaned pt's LE. Pt able to wipe face, some of chest, and some R UE. OT assist pt in cleaning rest of body. Pt performs bed mobility max assist as stated above. Pt rolled on each side with PT assisting with rolling and OT cleans pt's backside. RN enters room and cleans feeding tube during a rest break. Pt supine to sit as stated above. Once sitting EOB, pt pulls feeding tube apart at juncture, requiring OT to go find RN and PT supports pt in sitting balance. Once RN is located and addresses issue, pt transferred to and taken to gym. Pt SPT to mat in gym and performs static sitting balance. Pt able to hold SBA 30 secs x2. Pt had tendency to lean towards R side, requiring VC to lean towards L side. Full length mirror was placed in front of pt for visual feedback to help correct alignment, this did not appear to be successful. Pt performed reaching activity with cones while seated, pt reached with L hand only, crossing midline to grab cones and handing them to a therapist on other side of her. PT provided support through R UE during this, hand on hand on R side and extending R elbow to provide support with WB. Pt moved R hand toward cone, but still grabbed with L hand, moving both L and R hands toward cone and across midline. PT provided support with sitting balance as OT performed activity. Pt SPT back to and taken back into room. Pt transferred to recliner and left with all needs met. PT focused on sitting balance, bed mobility, WC mobility, transfers, LE strengthening/positioning. OT focused on bathing, UE strengthening, positioning, and dressing. Assessment Current Status: Fair Progress Use of two clinicians d/t poor activity tolerance, weakness, poor ROM, poor balance, poor mobility, and poor transfers. Pt more alert and comprehensive throughout tx, pt makes more attempts to assist throughout tx. PT Short Term Goals Short Term Goals Time Frame: May 25, 2020 Roll Left & Right: 3 Sit to lyin Lying to sitting on side of be: 3 Sit to stand: 3 Chair/nwv-oy-lnzqh transfer: 3 Toilet transfer: 3 Car transfer: 3 Walk 10 feet: 3 PT Nursing Home Goals Director Of Sales And Marketing Goals PT Nursing Home Goals Time Frame: Jun 08, 2020 Roll Left & Right (QC): 4 Sit to Lying (QC): 4 Lying-Sitting on Side/Bed(QC): 4 Sit to Stand (QC): 4 Chair/Fhs-ft-Nmqdr Xfer(QC): 4 Toilet Transfer (QC): 4 Car Transfer (QC): 4 Does the Patient Walk: No and Walking Goal IS indicated Walk 10 feet (QC): 4 Walk 50ft with 2 Turns (QC): 4 Walk 150 ft (QC): 4 Walking 10ft on Uneven Surface: 4 1 Step (curb) (QC): 4 4 Steps (QC): 4 12 Steps (QC): 9 Picking up an Object (QC): 3 Does the Pt use WC or Scooter?: Yes Wheel 50 feet with 2 turns (QC: 4 Type: Manual Wheel 150 feet: 4 PT Plan Treatment/Plan Treatment Plan: Continue Plan of Care Treatment Plan: Bed Mobility, Concurrent Therapy, Education, Functional Activity Rex, Functional Strength, Group Therapy, Gait, Safety, Therapeutic Ex ercise, Transfers Treatment Duration: Jun 08, 2020 Frequency: Modified Program (IRF) (01/05) Estimated Hrs Per Day: 1.5 hours per day Patient and/or Family Agrees t: Yes Safety Risks/Education Patient Education: Transfer Techniques, Correct Positioning, Safety Issues Teaching Recipient: Patient Teaching Methods: Demonstration, Discussion Response to Teaching: Verbalize Understanding, Return Demonstration, Reinforcement Needed Time/GCodes Time In: 915 Time Out: 1030 Total Billed Treatment Time: 75 Total Billed Treatment 1, FA x3 (45m), NM x2 (30m) DANYELLE CALLEJAS FRONT SERVICES AGENT May 13, 2020 12:21
--- NOTE | 2020-05-13 13:20 | NUR ---
RD FOLLOW-UP Spoke with RN today about plan of care to switch from continuous tube feeds to bolus feeds. Would recommend the following. 1 can Jevity 1.5 kcal x5can/day. Flush with 75ml before and after each can for hydration status. Provides 1775 kcal (28 kcal/kg); 76 g Pro (1.2 g Pro/kg); and 165oml free water (with flushes). Will continue to follow and reassess as pt needs, intake, and status change. Alma Ansari MS, RD, LD [phone]
[2020-05-13 15:15] VITALS: BP 146/67
[2020-05-13 18:32] VITALS: BP 154/79
[2020-05-13] MEDS: MELATONIN 3 MG TABLET PO PRN (21:58)
[2020-05-14 05:39] VITALS: BP 133/85
--- NOTE | 2020-05-14 06:48 | PM&R Progress Note ---
Subjective HPI/CC On Admission Date Seen by Provider: May 14, 2020 Time Seen by Provider: 10:00 Subjective/Events-last exam Dietary will provide small bites and soft diet and nectar thickened liquids She said that they're starving her Tolerating tube feedings Sleeping pretty well Aphasiais improved Overall improved Checked meds and labs Conferred with RN Reviewed therapy notes Review of Systems General: Fatigue, Malaise 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: Weakness Objective Exam Vital Signs Vital Signs Date Time Temp Pulse Resp B/P (MAP) Pulse Ox O2 Delivery O2 Flow Rate FiO2 05/14/20 17:20 36.0 92 20 183/86 (118) 96 Nasal Cannula 1.00 Capillary Refill : Less Than 3 Seconds General Appearance: No Apparent Distress, WD/WN, Chronically ill HEENT: PERRL/EOMI, Normal ENT Inspection, Pharynx Normal Neck: Full Range of Motion, Normal Inspection, Non Tender, Supple, Carotid Bruit Respiratory: Chest Non Tender, Lungs Clear, Normal Breath Sounds, No Accessory Muscle Use, No Respiratory Distress Cardiovascular: Regular Rate, Rhythm, No Edema, No Gallop, No JVD, No Murmur, Normal Peripheral Pulses Gastrointestinal: Normal Bowel Sounds, No Organomegaly, No Pulsatile Mass, Non Tender, Soft Back: Normal Inspection, No CVA Tenderness, No Vertebral Tenderness Extremity: Normal Capillary Refill, Normal Inspection, Normal Range of Motion, Non Tender, No Calf Tenderness, No Pedal Edema Neurologic/Psychiatric: Alert, Abnormal instrumentation technologist II-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 FIM Transfers Therapy Code Descriptions/Definitions Functional [place] Measure: 0=Not Assessed/NA 4=Minimal Assistance 1=Total Assistance 5=Supervision or Setup 2=Maximal Assistance 6=Modified [place] 3=Moderate Assistance 7=Complete IndependenceSCALE: Activities may be completed with or without assistive devices. 8-Wyykmqgloy-desfmqs completes the activity by him/herself with no assistance from a helper. 5-Set-up or Clean-up Assistance-helper sets up or cleans up; patient completes activity. [place] assists only prior to or following the activity. 4-Supervision or Touching Assistance-helper provides verbal cues and/or touching/steadying and/or contact guard assistance as patient completes activi ty. Assistance may be provided throughout the activity or intermittently. 3-Partial/Moderate Assistance-helper does LESS THAN HALF the effort. [place] lifts, holds or supports trunk or limbs, but provides less than half the effort. 2-Substantial/Maximal Assistance-helper does MORE THAN HALF the effort. [place] lifts or holds trunk or limbs and provides more than half the effort. 7-Agjsiipfu-olupxo does ALL the effort. Patient does none of the effort to complete the activity. Or, the assistance of 2 or more helpers is required for the patient to complete the activity. If activity was not attempted, code reason: 7-Patient Refused. 9-Not Applicable-not attempted and the patient did not perform the activity before the current illness, exacerbation or injury. 10-Not Attempted due to Environmental Limitations-(lack of equipment, weather restraints, etc.). 88-Not Attempted due to Medical Conditions or Safety Concerns. Roll Left to Right (QC): 2 Sit to Lying (QC): 2 Sit to Stand (QC): 2 Chair/Zwf-di-Ltkew Xfer(QC): 2 Car Transfer (QC): 88 Gait Training Does the Patient Walk?: No and Walking Goal NOT indicated Walk 10 feet (QC): 88 Walk 50 ft with 2 Turns(QC): 88 Walk 150 ft (QC): 88 Walking 10ft/uneven surface-QC: 88 Wheelchair Training Does the Pt Use a Wheelchair?: Yes Distance: 300' Wheel 50 ft with 2 turns (QC): 2 Wheel 150 ft (QC): 2 Type of Wheelchair: Manual Stair Training 1 Step (curb) (QC): 88 4 Steps (QC): 88 12 Steps (QC): 88 Balance Picking up an Object (QC): 88 ADL-Treatment Eating (QC): 3 (mod A scooping food and bringing to mouth. Pt able to swallow with modified diet. Pt requires cues for use of adaptive handle due to decreased LUE movement/ strength/ endurance and tracking food to mouth. Pt requires mod physical cues to place bite into mouth as spoon is placed on R side of mouth by pt. 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 Lord regarding Arana catheter discontinuation Continue crushed pills Continue Clinimix Living will and palliative care consult 05/08/20: Reconsult Dr. Lord since she is not ready for palliative care Discontinued Catheter monitor for retention Bowels are a bit loose hold laxatives Peg tube will be required so will consult general surgery on that 05/09/20: PEG to placement per Dr. Domingo Hold Eliquis today Continue therapies Prognosis poor chcf considering catastrophic level of stroke 05/10/20: Arana cath DC and she is able to empty with some incontinence appreciate Dr Mckinney PEG today Will DC IVF once PEG functioning Monitor closely 05/11/20: PEG tube for nutrition and fluids DC Clinimix Duonebs to dry up upper airway secretions 05/12/20: Maintain PEG tube feedings and free water Continue to use swallowing and ST to work with her for that to become stronger 05/13/20: Lab reviewed Monitor BP Nebs TF tolerated and change to bolus feeds 05/14/20: Increase oral food intake Maintain tube feedings Continue aggressive therapy (1) CVA (cerebral vascular accident) (2) EMPHYSEMA, UNSPECIFIED Status: Chronic (3) Denial about severity of illness (4) History of shingles (5) Uncontrolled hypertension Status: Acute (6) Aphasia (7) Debility Status: Acute (8) Hypoxia Status: Chronic (9) Dementia (10) Delirium (11) Memory loss (12) Paroxysmal atrial fibrillation Status: Chronic (13) Myopathy (14) Noncompliance with medication regimen Status: Chronic JEROME NEAL DO May 14, 2020 06:48
[2020-05-14] MEDS: RT-ALBUTEROL/IPRATROPIUM 3 ML (DUONEB) VIAL INH SCH ×3 (07:31→19:00)
[2020-05-14] MEDS: DOCUSATE SODIUM 100 MG (COLACE) CAP PO SCH ×2 (08:47→21:51)
[2020-05-14] MEDS: SENNA W/DOCUSATE (SENOKOT S) TABLET PO SCH ×2 (08:47→21:50)
[2020-05-14] MEDS: APIXABAN 5 MG (ELIQUIS) TABLET PO SCH ×2 (08:47→21:50)
[2020-05-14] MEDS: ASPIRIN 81 MG CHEW (CHILDREN'S ASA) PO SCH (08:47)
[2020-05-14] MEDS: polyethylene glycoL POWDER 17 GM (MIRALAX) PACK PO SCH ×2 (09:54→21:51)
--- NOTE | 2020-05-14 10:34 | Physical Therapy Daily Note ---
PT Daily Note-Current Subjective Pt in bed upon arrival and agrees to co-treat. Use of two clinicians d/t poor activity tolerance, balance, mobility, weakness, impaired ROM, and poor transfers. Mental Status Patient Orientation: Person, Place, Time, Situation Transfers SCALE: Activities may be completed with or without assistive devices. 7-Uxxverafbb-xlrzjru completes the activity by him/herself with no assistance from a helper. 5-Set-up or Clean-up Assistance-helper sets up or cleans up; patient completes activity. [place] assists only prior to or following the activity. 4-Supervision or Touching Assistance-helper provides verbal cues and/or touching/steadying and/or contact guard assistance as patient completes activity. Assistance may be provided throughout the activity or intermittently. 3-Partial/Moderate Assistance-helper does LESS THAN HALF the effort. [place] lifts, holds or supports trunk or limbs, but provides less than half the effort. 2-Substantial/Maximal Assistance-helper does MORE THAN HALF the effort. [place] lifts or holds trunk or limbs and provides more than half the effort. 9-Jeibfyaot-drnwca does ALL the effort. Patient does none of the effort to complete the activity. Or, the assistance of 2 or more helpers is required for the patient to complete the activity. If activity was not attempted, code reason: 7-Patient Refused. 9-Not Applicable-not attempted and the patient did not perform the activity before the current illness, exacerbation or injury. 10-Not Attempted due to Environmental Limitations-(lack of equipment, weather restraints, etc.). 88-Not Attempted due to Medical Conditions or Safety Concerns. Roll Left & Right (QC): 2 Sit to Lying (QC): 2 Lying to Sitting/Side of Bed(Q: 2 Sit to Stand (QC): 2 Chair/Bkz-hh-Dbqvo Xfer(QC): 2 Toilet Transfer (QC): 2 Pt supine to sit, guiding legs toward EOB, but requiring PT assist to get legs over edge, OT directed torso into upright position. Pt sat EOB maxA requiring PT to sit on R side of pt d/t pt leaning to R side. Pt transferred to [facility] S[facility], PT standing pt and OT A to direct pt. Pt transferred back to bed and sit to supine maxA x2, PT directing LE and OT directing torso. Pt brought up in bed with use of bed pad. Pt roll L to R for dressing, requiring PT to assist pt in bending of leg, and directing pt onto side while OT dresses pt. Weight Bearing Right Lower Extremity: Right Weight Bearing/Tolerated Left Lower Extremity: Left Weight Bearing/Tolerated Exercises Supine Ex: Ankle pumps, Rolling, Heel Slides, Straight leg raise, Hip abd/add Supine Reps: 6 Treatments Pt transferred to [facility] and given bed bath at this time. OT dons gown on pt as PT assist pt in sitting balance, as pt leans to R side and forward. Pt transferred back to bed and performs bed mobility. Pt brought up in bed with use of bed pad, and performs supine exercises. Pt requires max VC to stay focused and performs activities. Pt left in bed with all needs met, call light in hand. PT focused on static sitting balance, transfers, bed mobility, and LE strengthening/positioning. OT focused on bathing, dressing, and UE strengthening/positioning. Assessment Current Status: Fair Progress Pt more alert today, but physically fatigued. Pt resists any passive movements. PT Short Term Goals Short Term Goals Time Frame: May 25, 2020 Roll Left & Right: 3 Sit to lyin Lying to sitting on side of be: 3 Sit to stand: 3 Chair/ubr-rx-nilgv transfer: 3 Toilet transfer: 3 Car transfer: 3 Walk 10 feet: 3 PT Prison Goals Routing Machine Operator Goals PT Prison Goals Time Frame: Jun 08, 2020 Roll Left & Right (QC): 4 Sit to Lying (QC): 4 Lying-Sitting on Side/Bed(QC): 4 Sit to Stand (QC): 4 Chair/Usm-qt-Lqder Xfer(QC): 4 Toilet Transfer (QC): 4 Car Transfer (QC): 4 Does the Patient Walk: No and Walking Goal IS indicated Walk 10 feet (QC): 4 Walk 50ft with 2 Turns (QC): 4 Walk 150 ft (QC): 4 Walking 10ft on Uneven Surface: 4 1 Step (curb) (QC): 4 4 Steps (QC): 4 12 Steps (QC): 9 Picking up an Object (QC): 3 Does the Pt use WC or Scooter?: Yes Wheel 50 feet with 2 turns (QC: 4 Type: Manual Wheel 150 feet: 4 PT Plan Treatment/Plan Treatment Plan: Continue Plan of Care Treatment Plan: Bed Mobility, Concurrent Therapy, Education, Functional Activity Rex, Functional Strength, Group Therapy, Gait, Safety, Therapeutic Exercise, Transfers Treatment Duration: Jun 08, 2020 Frequency: Modified Program (IRF) (01/05) Estimated Hrs Per Day: 1.5 hours per day Patient and/or Family Agrees t: Yes Safety Risks/Education Patient Education: Transfer Techniques, Correct Positioning, Safety Issues Teaching Recipient: Patient Teaching Methods: Demonstration, Discussion Response to Teaching: Verbalize Understanding, Return Demonstration, Reinforcement Needed Time/GCodes Time In: 915 Time Out: 1030 Total Billed Treatment Time: 75 Total Billed Treatment 1, FA x3 (45m), Ex x2 (30m) KLARISSA RITCHIE CLEANER May 14, 2020 10:34
--- NOTE | 2020-05-14 11:23 | Progress Note - Urology ---
Progress Note-Urology Progress Notes/Assess & Plan Progress/Assessment & Plan DOING WELL BLACK. WE WILL SEE PRN Final Diagnosis URINE RETENTION (RESOLVED) BROOK MASON MD May 14, 2020 11:23
--- NOTE | 2020-05-14 11:35 | Occupational Ther Daily Note ---
OT Current Status-Daily Note Subjective Pt in bed when therapy entered room. Pt. reported that she was having no pain this am. Mental Status/Objective Patient Orientation: Person Attachments: IV, PEG Tube ADL-Treatment Therapy Code Descriptions/Definitions Functional [place] Measure: 0=Not Assessed/NA 4=Minimal Assistance 1=Total Assistance 5=Supervision or Setup 2=Maximal Assistance 6=Modified [place] 3=Moderate Assistance 7=Complete IndependenceSCALE: Activities may be completed with or without assistive devices. 2-Dgvirpaixq-epvnhrg completes the activity by him/herself with no assistance from a helper. 5-Set-up or Clean-up Assistance-helper sets up or cleans up; patient completes activity. [place] assists only prior to or following the activity. 4-Supervision or Touching Assistance-helper provides verbal cues and/or touching/steadying and/or contact guard assistance as patient completes activity. Assistance may be provided throughout the activity or intermittently. 3-Partial/Moderate Assistance-helper does LESS THAN HALF the effort. [place] lifts, holds or supports trunk or limbs, but provides less than half the effort. 2-Substantial/Maximal Assistance-helper does MORE THAN HALF the effort. [place] lifts or holds trunk or limbs and provides more than half the effort. 4-Bazfodmmr-fdndck does ALL the effort. Patient does none of the effort to complete the activity. Or, the assistance of 2 or more helpers is required for the patient to complete the activity. If activity was not attempted, code reason: 7-Patient Refused. 9-Not Applicable-not attempted and the patient did not perform the activity before the current illness, exacerbation or injury. 10-Not Attempted due to Environmental Limitations-(lack of equipment, weather restraints, etc.). 88-Not Attempted due to Medical Conditions or Safety Concerns. Shower/Bathe Self (QC): 2 On/Off Footwear: 3 Toileting Hygiene (QC): 1 Toilet Transfer (QC): 1 Co-treated with PT due to need of two skilled clinicians. PT focused on bed mobility, transfers, and LE strength. OT facilitated ADL skills, functional transfers, and UE strength. Pt. in bed when therapy entered room. Pt. agreeable to cleaning up. Noted that pt was alert today and initiated several conversations. When asked if she needed to use the restroom, pt. reported that she did. Dependent transfer to [facility]. Pt. provided with mirror and multiple cues to maintain sitting balance while on BSC. Pt. provided with warm wet cloths to wash face and body. Max A required to wash and dry, as patient washed and dried face and some of arms and legs, requiring therapists to complete task. Pt. required assist x2 for toilet hygiene, one for standing and one to cleanse and pull brief over hips. Pt. reported that she was exhausted and transferred back to bed. Once in bed, pt. completed 25 minutes of BUE AAROM/AROM exercises in all planes. OT provided pt. with yellow therapy sponges for both hands to work on simultaneous bilateral community planning technician. Pt. provided with step by step cues to position self in bed to remove socks. She successfully grasped and pulled B socks to heels. Pt. then reported that she was fatigued but would continue to work on this at a later time. Pt. instructed for positioning BLE and LUE to pull self up in bed for proper positioning. Pt. positioned properly in bed with call light in lap. All needs met. Education OT Patient Education: Correct positioning, Exercise program, Modified ADL techniques, Progress toward Goal/Update tx plan, Purpose of tx/functional activities, Reviewed precautions, Rehab process, Safety issues, Transfer techniques Teaching Recipient: Patient Teaching Methods: Demonstration, Discussion Response to Teaching: Verbalize Understanding, Return Demonstration, Reinforcement Needed OT Short Term Goals Short Term Goals Time Frame: May 17, 2020 Shower/bathe self: 2 Upper body dressin Lower body dressin OT Clinical Review Specialist Goals [facility] Goals Time Frame: May 31, 2020 Eating (QC): 4 Oral Hygiene (QC): 4 Toileting Hygiene (QC): 3 Shower/Bathe Self (QC): 3 Upper Body Dressing (QC): 4 Lower Body Dressing (QC): 3 On/Off Footwear (QC): 3 Additional Goals: 1-Demonstrate ADL Tasks, 2-Verbalize Understanding, 3- ImproveStrength/Rex 1=Demonstrate adherence to instructed precautions during ADL tasks. 2=Patient will verbalize/demonstrate understanding of assistive devices/modifications for ADL. 3=Patient will improve strength/tolerance for activity to enable patient to perform ADL's. OT Education/Plan Problem List/Assessment Assessment: Decreased Activ Tolerance, Decreased UE Strength, Dependent Transfe rs, Impaired Bed Mobility, Impaired Cognition, Impaired Coordination, Impaired Funct Balance, Impaired I ADL's, Impaired Self-Care Skills, Restricted Funct UE ROM Discharge Recommendations Plan/Recommendations: Continue POC Therapy Discharge Recommendati: Post Acute OT Treatment Plan/Plan of Care Treatment,Training & Education: Yes Patient would benefit from OT for education, treatment and training to promote independence in ADL's, mobility, safety and/or upper extremity function for ADL's. Plan of Care: ADL Retraining, Functional Mobility, Group Exercise/Act as Ind, UE Funct Exercise/Act, UE Neuromus Re-Ed/Coord, Visual/Perceptual Retrain Treatment Duration: May 31, 2020 Frequency: Modified Program (IRF) (01/05) Estimated Hrs Per Day: Other Agreement: Yes Rehab Potential: Fair Time/GCodes Start Time: 09:15 Stop Time: 10:30 Total Time Billed (hr/min): 75 Billed Treatment Time 1, ADL 2 (30 minutes), FA (15 minutes), EX 2 (30 minutes) Co-treat with PT legal researcher. See above note for designated roles. RILEY DUBON OT May 14, 2020 11:35
--- NOTE | 2020-05-14 14:16 | Speech Therapy Daily Note ---
Speech Daily Progress Note Subjective Date Seen by Provider: May 14, 2020 Time Seen by Provider: 00:30 Patient was alert and stated she was hungry. "They are starving me". Objective Patient utilizes small bites of comfort food without difficulty. Patient is allowed small bits of oral intake with the PEG tube. Assessment Assessment Current Status: Good Progress Treatment Plan Continue Plan of Care Speech Short Term Goals Short Term Goals Short Term Goals 1) Patient will answer y/n questions related to herself with 80% or greater with minimal cues. 2) Patient will respond to questions related to items/pictures at 80% or greater with minimal cues. 3) Patient will tolerate least restrictive diet level without s/s of aspiration at 80% or greater. 4) Patient/caregiver will utilize compensatory strategies as trained at 90% or greater with minimal cues. Speech Mcc Goals Assistant Infant Toddler Teacher Goals Patient will improve communication necessary for safety and daily living tasks with minimal assist. Patient will maintain adequate nutrition/hydration via safe, effective swallow function. Speech-Plan Patient/Family Goals Patient/Family Goals: Patient plans on returning home where she lives with her . Patient's discharge will be discussed at the Medicare meeting. Treatment Plan Speech Therapy Treatment Plan: Continue Plan of Care Treatment Duration: May 17, 2020 Frequency: 5 times per week Estimated Hrs Per Day: .5 hour per day Rehab Potential: Fair Barriers to Learning: Patient's medical history and recent CVA Pt/Family Agrees to Plan: Yes Safety Risks/Education Teaching Recipient: Patient Teaching Methods: Demonstration, Discussion Response to Teaching: Verbalize Understanding, Return Demonstration Education Topics Provided: Continued safety of oral intake and PEG education Time Speech Therapy Time In: 10:30 Speech Therapy Time Out: 11:00 Total Billed Time: 30 Billed Treatment Time 1JOSEPH [address] May 14, 2020 14:16
[2020-05-14 17:20] VITALS: BP 183/86
--- NOTE | 2020-05-14 18:11 | NUR ---
Patient requested to sit up at the side of bed earlier this evening. Patient does not have trunk control to support sitting at edge of bed on her own. Patient agreed to transfer to recliner. Patient transferred with gait belt x2 with stand and pivot. Patient sat up in chair for about 30 minutes and then alerted family at bedside that she needed to have a BM. Patient was transferred again via stand and pivot [facility] and [facility]. Patient then sat up in chair to eat evening meal. After evening meal, patient alerted family again that she needed to void. Patient again did another stand and [facility] with a total continent void, then to bed, as she was tiring and needed to be positioned on her side. During transfers, patient moved right leg side to side and backwards with verbal cuing.
[2020-05-14] MEDS: MELATONIN 3 MG TABLET PO PRN (21:50)
[2020-05-15 05:40] VITALS: BP 173/79
--- NOTE | 2020-05-15 05:56 | PM&R Progress Note ---
Subjective HPI/CC On Admission Date Seen by Provider: May 15, 2020 Time Seen by Provider: 10:30 Subjective/Events-last exam Groin has some yeast infection Residual of tube feedings has caused a holding of her food tray Bowels moved yesterday at the bedside Aphasiais improved Overall improved Checked meds and labs Conferred with RN Reviewed therapy notes Review of Systems General: Fatigue, Malaise 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: Weakness Objective Exam Vital Signs Vital Signs Date Time Temp Pulse Resp B/P (MAP) Pulse Ox O2 Delivery O2 Flow Rate FiO2 05/15/20 19:28 92 Room Air 05/15/20 18:50 36.3 87 20 123/73 (90) 05/14/20 17:20 1.00 Capillary Refill : Less Than 3 Seconds General Appearance: No Apparent Distress, WD/WN, Chronically ill HEENT: PERRL/EOMI, Normal ENT Inspection, Pharynx Normal Neck: Full Range of Motion, Normal Inspection, Non Tender, Supple, Carotid Bruit Respiratory: Chest Non Tender, Lungs Clear, Normal Breath Sounds, No Accessory Muscle Use, No Respiratory Distress Cardiovascular: Regular Rate, Rhythm, No Edema, No Gallop, No JVD, No Murmur, N ormal Peripheral Pulses Gastrointestinal: Normal Bowel Sounds, No Organomegaly, No Pulsatile Mass, Non Tender, Soft Back: Normal Inspection, No CVA Tenderness, No Vertebral Tenderness Extremity: Normal Capillary Refill, Normal Inspection, Normal Range of Motion, Non Tender, No Calf Tenderness, No Pedal Edema Neurologic/Psychiatric: Alert, Abnormal public health sanitarian II-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 FIM Transfers Therapy Code Descriptions/Definitions Functional [place] Measure: 0=Not Assessed/NA 4=Minimal Assistance 1=Total Assistance 5=Supervision or Setup 2=Maximal Assistance 6=Modified [place] 3=Moderate Assistance 7=Complete IndependenceSCALE: Activities may be completed with or without assistive devices. 4-Xahddgvvan-hsziype completes the activity by him/herself with no assistance from a helper. 5-Set-up or Clean-up Assistance-helper sets up or cleans up; patient completes activity. [place] assists only prior to or following the activity. 4-Supervision or Touching Assistance-helper provides verbal cues and/or touching/steadying and/or contact guard assistance as patient completes activity. Assistance may be provided throughout the activity or intermittently. 3-Partial/Moderate Assistance-helper does LESS THAN HALF the effort. [place] lifts, holds or supports trunk or limbs, but provides less than half the effort. 2-Substantial/Maximal Assistance-helper does MORE THAN HALF the effort. [place] lifts or holds trunk or limbs and provides more than half the effort. 2-Fhuqscfky-finbgr does ALL the effort. Patient does none of the effort to complete the activity. Or, the assistance of 2 or more helpers is required for the patient to complete the activity. If activity was not attempted, code reason: 7-Patient Refused. 9-Not Applicable-not attempted and the patient did not perform the activity before the current illness, exacerbation or injury. 10-Not Attempted due to Environmental Limitations-(lack of equipment, weather restraints, etc.). 88-Not Attempted due to Medical Conditions or Safety Concerns. Roll Left to Right (QC): 2 Sit to Lying (QC): 2 Sit to Stand (QC): 2 Chair/Vsx-et-Zcpfl Xfer(QC): 2 Car Transfer (QC): 88 Gait Training Does the Patient Walk?: No and Walking Goal NOT indicated Walk 10 feet (QC): 88 Walk 50 ft with 2 Turns(QC): 88 Walk 150 ft (QC): 88 Walking 10ft/uneven surface-QC: 88 Wheelchair Training Does the Pt Use a Wheelchair?: Yes Distance: 300' Wheel 50 ft with 2 turns (QC): 2 Wheel 150 ft (QC): 2 Type of Wheelchair: Manual Stair Training 1 Step (curb) (QC): 88 4 Steps (QC): 88 12 Steps (QC): 88 Balance Picking up an Object (QC): 88 ADL-Treatment Eating (QC): 3 (mod A scooping food and bringing to mouth. Pt able to swallow with modified diet. Pt requires cues for use of adaptive handle due to decreased LUE movement/ strength/ endurance and tracking food to mouth. Pt requires mod physical cues to place bite into mouth as spoon is placed on R side of mouth by pt. 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 Lord regarding Arana catheter discontinuation Continue crushed pills Continue Clinimix Living will and palliative care consult 05/08/20: Reconsult Dr. Lord since she is not ready for palliative care Discontinued Catheter monitor for retention Bowels are a bit loose hold laxatives Peg tube will be required so will consult general surgery on that 05/09/20: PEG to placement per Dr. 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 05/10/20: Arana cath DC and she is able to empty with some incontinence appreciate Dr Mckinney PEG today Will DC IVF once PEG functioning Monitor closely 05/11/20: PEG tube for nutrition and fluids DC Clinimix Duonebs to dry up upper airway secretions 05/12/20: Maintain PEG tube feedings and free water Continue to use swallowing and ST to work with her for that to become stronger 05/13/20: Lab reviewed Monitor BP Nebs TF tolerated and change to bolus feeds 05/14/20: Increase oral food intake Maintain tube feedings Continue aggressive therapy 05/15/20: Supportive care for groin rash Monitor residule tube feedings Bowels are moving well Unsure of disposition plan (1) CVA (cerebral vascular accident) (2) EMPHYSEMA, UNSPECIFIED Status: Chronic (3) Denial about severity of illness (4) History of shingles (5) Uncontrolled hypertension Status: Acute (6) Aphasia (7) Debility Status: Acute (8) Hypoxia Status: Chronic (9) Dementia (10) Delirium (11) Memory loss (12) Paroxysmal atrial fibrillation Status: Chronic (13) Myopathy (14) Noncompliance with medication regimen Status: Chronic JEROME NEAL DO May 15, 2020 05:56
[2020-05-15] MEDS: RT-ALBUTEROL/IPRATROPIUM 3 ML (DUONEB) VIAL INH SCH ×3 (08:15→19:28)
--- NOTE | 2020-05-15 10:34 | Physical Therapy Daily Note ---
PT Daily Note-Current Subjective Pt in WC with OT upon arrival and agrees to co-treat. Pt stated she is extremely tired, with eyes closed most of tx. Mental Status Patient Orientation: Person, Place Transfers SCALE: Activities may be completed with or without assistive devices. 4-Djjtwwtywl-jraauej completes the activity by him/herself with no assistance from a helper. 5-Set-up or Clean-up Assistance-helper sets up or cleans up; patient completes activity. [place] assists only prior to or following the activity. 4-Supervision or Touching Assistance-helper provides verbal cues and/or touching/steadying and/or contact guard assistance as patient completes activity. Assistance may be provided throughout the activity or intermittently. 3-Partial/Moderate Assistance-helper does LESS THAN HALF the effort. [place] lifts, holds or supports trunk or limbs, but provides less than half the effort. 2-Substantial/Maximal Assistance-helper does MORE THAN HALF the effort. [place] lifts or holds trunk or limbs and provides more than half the effort. 0-Ihkqemamo-rwyllt does ALL the effort. Patient does none of the effort to complete the activity. Or, the assistance of 2 or more helpers is required for the patient to complete the activity. If activity was not attempted, code reason: 7-Patient Refused. 9-Not Applicable-not attempted and the patient did not perform the activity before the current illness, exacerbation or injury. 10-Not Attempted due to Environmental Limitations-(lack of equipment, weather restraints, etc.). 88-Not Attempted due to Medical Conditions or Safety Concerns. Sit to Stand (QC): 2 Chair/Gtd-wd-Ubvhx Xfer(QC): 2 Weight Bearing Right Lower Extremity: Right Weight Bearing/Tolerated Left Lower Extremity: Left Weight Bearing/Tolerated Wheelchair Training Does the Pt Use a Wheelchair?: Yes Wheel 50 ft with 2 turns (QC): 2 Wheel 150 ft (QC): 2 Type of Wheelchair: Manual Pt able to move WC backwards w/o instruction 5', with instruction, pt unable to propel WC forward. Exercises Seated Therapy Exercises: Ankle pumps, Long arc quads, Hip flexion Treatments Pt attempted to eat, requiring maxA by OT to put food on spoon, and bring spoon to mouth. Pt too fatigued to perform activity. Pt brought out to gym and attempted feeding again. Pt slightly more alert at this time and able to take a couple bites with spoon in hand, only after OT placed food onto spoon. Pt stated she was done eating performed seated LAQ. Pt taken over to // bars and performs sit to stand maxA x2, requiring OT and PT to place both hands onto bar and positioning both legs on floor, and bringing pt to standing. Pt standing balance fair, with 2 persons assist. Pt required TC and VC for upright position and staying in midline. Pt stood 30 seconds x3, with seated rest breaks in WC. Pt performed other seated exercises and taken back to room. Pt SPT to recliner in room and left with all needs met, call light in hand. PT focused on transfers, static standing balance, and LE strengthening/positioning. OT focused on feeding, dressing, and UE strengthening/positioning. Assessment Current Status: Fair Progress Pt extremely fatigued, unable to perform some activity. Pt required TC and VC for all activity. Use of two clinicians d/t poor activity tolerance, balance, transfers, weakness, and poor ROM. PT Short Term Goals Short Term Goals Time Frame: May 25, 2020 Roll Left & Right: 3 Sit to lyin Lying to sitting on side of be: 3 Sit to stand: 3 Chair/dtp-yx-coemr transfer: 3 Toilet transfer: 3 Car transfer: 3 Walk 10 feet: 3 PT Truckload Checker Goals Truckload Checker Goals PT Longterm Goals Time Frame: Jun 08, 2020 Roll Left & Right (QC): 4 Sit to Lying (QC): 4 Lying-Sitting on Side/Bed(QC): 4 Sit to Stand (QC): 4 Chair/Mkd-kp-Uuepo Xfer(QC): 4 Toilet Transfer (QC): 4 Car Transfer (QC): 4 Does the Patient Walk: No and Walking Goal IS indicated Walk 10 feet (QC): 4 Walk 50ft with 2 Turns (QC): 4 Walk 150 ft (QC): 4 Walking 10ft on Uneven Surface: 4 1 Step (curb) (QC): 4 4 Steps (QC): 4 12 Steps (QC): 9 Picking up an Object (QC): 3 Does the Pt use WC or Scooter?: Yes Wheel 50 feet with 2 turns (QC: 4 Type: Manual Wheel 150 feet: 4 PT Plan Treatment/Plan Treatment Plan: Continue Plan of Care Treatment Plan: Bed Mobility, Concurrent Therapy, Education, Functional Activity Rex, Functional Strength, Group Therapy, Gait, Safety, Therapeutic Exercise, Transfers Treatment Duration: Jun 08, 2020 Frequency: Modified Program (IRF) (01/05) Estimated Hrs Per Day: 1.5 hours per day Patient and/or Family Agrees t: Yes Safety Risks/Education Patient Education: Transfer Techniques, Correct Positioning, Safety Issues Teaching Methods: Demonstration, Discussion Response to Teaching: Verbalize Understanding, Reinforcement Needed Time/GCodes Time In: 915 Time Out: 1030 Total Billed Treatment Time: 75 Total Billed Treatment 1, FA x3 (45m), EX x2 (30m) KLARISSA RITCHIE MEDICAL GENETICS DIRECTOR May 15, 2020 10:34
[2020-05-15] MEDS: SENNA W/DOCUSATE (SENOKOT S) TABLET PO SCH ×2 (10:53→22:00)
[2020-05-15] MEDS: polyethylene glycoL POWDER 17 GM (MIRALAX) PACK PO SCH ×2 (10:53→21:56)
[2020-05-15] MEDS: ASPIRIN 81 MG CHEW (CHILDREN'S ASA) PO SCH (10:53)
[2020-05-15] MEDS: APIXABAN 5 MG (ELIQUIS) TABLET PO SCH ×2 (10:53→22:00)
[2020-05-15] MEDS: DOCUSATE SODIUM 100 MG (COLACE) CAP PO SCH ×2 (10:53→21:56)
--- NOTE | 2020-05-15 11:48 | Speech Therapy Daily Note ---
Speech Daily Progress Note Subjective Date Seen by Provider: May 15, 2020 Time Seen by Provider: 00:30 Patient resting in her recliner following her OT session upon my arrival to her room. Patient's at her side. Objective Patient completed general information trivia at 50% with maximum repetitions and/or cuing. Assessment Assessment Current Status: Fair Progress Treatment Plan Continue Plan of Care Speech Short Term Goals Short Term Goals Short Term Goals 1) Patient will answer y/n questions related to herself with 80% or greater with minimal cues. 2) Patient will respond to questions related to items/pictures at 80% or greater with minimal cues. 3) Patient will tolerate least restrictive diet level without s/s of aspiration at 80% or greater. 4) Patient/caregiver will utilize compensatory strategies as trained at 90% or greater with minimal cues. Speech Retirement Goals Chrome Tanner Goals Patient will improve communication necessary for safety and daily living tasks with minimal assist. Patient will maintain adequate nutrition/hydration via safe, effective swallow function. Speech-Plan Patient/Family Goals Patient/Family Goals: Patient plans on returning to her home upon rehab discharge. Treatment Plan Speech Therapy Treatment Plan: Continue Plan of Care Treatment Duration: May 17, 2020 Frequency: 5 times per week Estimated Hrs Per Day: .5 hour per day Rehab Potential: Fair Barriers to Learning: Patient's current medical status and cognitive deficits which will require 24 hr care. Pt/Family Agrees to Plan: Yes Safety Risks/Education Teaching Recipient: Patient, Significant Other Teaching Methods: Demonstration, Discussion Response to Teaching: Verbalize Understanding, Return Demonstration, Reinforcement Needed Education Topics Provided: Continued safety and commiunication Time Speech Therapy Time In: 10:30 Speech Therapy Time Out: 11:00 Total Billed Time: 30 Billed Treatment Time 1PATIENCE BETHANIA ST May 15, 2020 11:48
--- NOTE | 2020-05-15 14:31 | Occupational Ther Daily Note ---
OT Current Status-Daily Note Subjective Pt. asleep in bed when OT entered room and struggled to become alert. Pt. awoke but had difficultly remaining alert. Her bp while in bed was 144/77. Once pt. was transferred to chair, she was more alert. No c/o pain. Nursing is notified of BP. Mental Status/Objective Patient Orientation: Unable to Assess Attachments: PEG Tube ADL-Treatment Therapy Code Descriptions/Definitions Functional [place] Measure: 0=Not Assessed/NA 4=Minimal Assistance 1=Total Assistance 5=Supervision or Setup 2=Maximal Assistance 6=Modified [place] 3=Moderate Assistance 7=Complete IndependenceSCALE: Activities may be completed with or without assistive devices. 1-Rrzzrnstho-njmxzto completes the activity by him/herself with no assistance from a helper. 5-Set-up or Clean-up Assistance-helper sets up or cleans up; patient completes activity. [place] assists only prior to or following the activity. 4-Supervision or Touching Assistance-helper provides verbal cues and/or touching/steadying and/or contact guard assistance as patient completes activity. Assistance may be provided throughout the activity or intermittently. 3-Partial/Moderate Assistance-helper does LESS THAN HALF the effort. [place] lifts, holds or supports trunk or limbs, but provides less than half the effort. 2-Substantial/Maximal Assistance-helper does MORE THAN HALF the effort. [place] lifts or holds trunk or limbs and provides more than half the effort. 7-Rslncqozb-gngtks does ALL the effort. Patient does none of the effort to complete the activity. Or, the assistance of 2 or more helpers is required for the patient to complete the activity. If activity was not attempted, code reason: 7-Patient Refused. 9-Not Applicable-not attempted and the patient did not perform the activity before the current illness, exacerbation or injury. 10-Not Attempted due to Environmental Limitations-(lack of equipment, weather restraints, etc.). 88-Not Attempted due to Medical Conditions or Safety Concerns. Eating (QC): 2 (Max A) On/Off Footwear: 2 (Max A) Toileting Hygiene (QC): 1 Partial Co-treat with PT due to need of 2 skilled clinicians. PT focusing on mobility, transfers, and LE strength. OT facilitating ADL skills, functional transfers, and UE strength. Pt. in bed when OT entered room. OT attempted to awake her and pt. struggled to become alert. Once alert, pt. had difficulty maintaining alertness. Pt. reported that she did not sleep well last night. BP was taken while pt. was in bed 144/77. Pt.'s soiled brief and gown changed while in bed with max assist for toilet hygiene, donning slipper socks, and bed mobility. Max A and verbal cues required for supine-sit. Max assist x2 required to pull brief over hips while standing. SPT EOB- w/c was dependent. Pt. was asked if she was hungry as there was a full breakfast tray. She indicated that she was hungry, but did not initiate feeding self. Pt. was transferred to therapy gym to continue working on feeding in a more stimulating environment to increase her alertness. Pt. required Max A for feeding with verbal cues for sequencing and attending to task. Pt. could successfully bring spoon built up with red foam to mouth when cued to do so. It is noted that pt. coughed after each small bite of pureed fruit, and sip of orange juice. Due to this, task was stopped. Nursing notified. When offered the choice of working on sitting unsupported or standing, pt. stated that she had no preference. Pt. moved to parallel bars and required max assist x2 to stand and maintain standing 3 times for approximately 30 seconds each attempt. When cued to self-propel in chair, pt. could do so, but only in a backwards direction for very small distances.Pt. with PT when OT left the gym. Education OT Patient Education: Correct positioning, Disease process, Modified ADL techniques, Progress toward Goal/Update tx plan, Purpose of tx/functional activ ities, Reviewed precautions, Rehab process, Safety issues, Transfer techniques, W/C management Teaching Recipient: Patient, Family Teaching Methods: Demonstration, Discussion Response to Teaching: Verbalize Understanding, Return Demonstration, Reinforcement Needed OT Short Term Goals Short Term Goals Time Frame: May 17, 2020 Shower/bathe self: 2 Upper body dressin Lower body dressin OT Fpc Goals Tree Expert Goals Time Frame: May 31, 2020 Eating (QC): 4 Oral Hygiene (QC): 4 Toileting Hygiene (QC): 3 Shower/Bathe Self (QC): 3 Upper Body Dressing (QC): 4 Lower Body Dressing (QC): 3 On/Off Footwear (QC): 3 Additional Goals: 1-Demonstrate ADL Tasks, 2-Verbalize Understanding, 3- ImproveStrength/Rex 1=Demonstrate adherence to instructed precautions during ADL tasks. 2=Patient will verbalize/demonstrate understanding of assistive devices/modifications for ADL. 3=Patient will improve strength/tolerance for activity to enable patient to perform ADL's. OT Education/Plan Problem List/Assessment Assessment: Decreased Activ Tolerance, Decreased Safety Aware, Decreased UE St rength, Dependent Transfers, Impaired Bed Mobility, Impaired Cognition, Impaired Coordination, Impaired Funct Balance, Impaired I ADL's, Impaired Self-Care Skills, Restricted Funct UE ROM, Visual-Perceptual Deficit Discharge Recommendations Plan/Recommendations: Continue POC Therapy Discharge Recommendati: 24 Hour Supervision, Post Acute OT Treatment Plan/Plan of Care Treatment,Training & Education: Yes Patient would benefit from OT for education, treatment and training to promote independence in ADL's, mobility, safety and/or upper extremity function for ADL's. Plan of Care: ADL Retraining, Functional Mobility, Group Exercise/Act as Ind, UE Funct Exercise/Act, UE Neuromus Re-Ed/Coord, Visual/Perceptual Retrain Treatment Duration: May 31, 2020 Frequency: Modified Program (IRF) (01/05) Estimated Hrs Per Day: Other Agreement: Yes Rehab Potential: Fair Time/GCodes Start Time: 09:00 Stop Time: 10:15 Total Time Billed (hr/min): 75 Billed Treatment Time 1, ADL x4 (60 minutes), FA (15 minutes) Individual treatment [id number] Co-treat with PT [id number]. See above note for designated roles. RILEY DUBON OT May 15, 2020 14:31
--- NOTE | 2020-05-15 18:00 | NUR ---
red rash noted in jen area. dr notified, new orders rec'd. mycostatin pwdr topical prn. will continue to monitor.
[2020-05-15 18:50] VITALS: BP 123/73
[2020-05-15] MEDS: MELATONIN 3 MG TABLET PO PRN (22:00)
[2020-05-16 05:04] VITALS: BP 120/76
[2020-05-16] MEDS: RT-ALBUTEROL/IPRATROPIUM 3 ML (DUONEB) VIAL INH SCH ×3 (07:20→21:07)
[2020-05-16] MEDS: SENNA W/DOCUSATE (SENOKOT S) TABLET PO SCH ×2 (08:32→21:05)
[2020-05-16] MEDS: MICONAZOLE 2% POWDER (DESENEX AF) 90 GM TOP PRN (08:33)
[2020-05-16] MEDS: APIXABAN 5 MG (ELIQUIS) TABLET PO SCH ×2 (08:33→21:05)
[2020-05-16] MEDS: ASPIRIN 81 MG CHEW (CHILDREN'S ASA) PO SCH (08:33)
[2020-05-16] MEDS: DOCUSATE SODIUM 100 MG (COLACE) CAP PO SCH ×2 (08:33→21:05)
--- NOTE | 2020-05-16 09:38 | PM&R Progress Note ---
Subjective HPI/CC On Admission Date Seen by Provider: May 16, 2020 Time Seen by Provider: 10:45 Subjective/Events-last exam Increased food intake about 30% of her requirement Tube feedings are tolerated well Bowels are moving well two days ago Daughter at the bedside Itching around the peg tube, will do Nystatin powder Checked meds and labs Conferred with RN Reviewed therapy notes Review of Systems General: Fatigue, Malaise 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: Weakness Objective Exam Vital Signs Vital Signs Date Time Temp Pulse Resp B/P (MAP) Pulse Ox O2 Delivery O2 Flow Rate FiO2 05/16/20 21:08 92 Room Air 05/16/20 18:00 36.5 83 18 157/74 (101) 05/14/20 17:20 1.00 Capillary Refill : Less Than 3 Seconds General Appearance: No Apparent Distress, WD/WN, Chronically ill HEENT: PERRL/EOMI, Normal ENT Inspection, Pharynx Normal Neck: Full Range of Motion, Normal Inspection, Non Tender, Supple, Carotid Bruit Respiratory: Chest Non Tender, Lungs Clear, Normal Breath Sounds, No Accessory Muscle Use, No Respiratory Distress Cardiovascular: Regular Rate, Rhythm, No Edema, No Gallop, No JVD, No Murmur, Normal Peripheral Pulses Gastrointestinal: Normal Bowel Sounds, No Organomegaly, No Pulsatile Mass, Non Tender, Soft Back: Normal Inspection, No CVA Tenderness, No Vertebral Tenderness Extremity: Normal Capillary Refill, Normal Inspection, Normal Range of Motion, Non Tender, No Calf Tenderness, No Pedal Edema Neurologic/Psychiatric: Alert, Abnormal regional sales director II-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 FIM Transfers Therapy Code Descriptions/Definitions Functional [place] Measure: 0=Not Assessed/NA 4=Minimal Assistance 1=Total Assistance 5=Supervision or Setup 2=Maximal Assistance 6=Modified [place] 3=Moderate Assistance 7=Complete IndependenceSCALE: Activities may be completed with or without assistive devices. 1-Cbtuackalu-gyglqkj completes the activity by him/herself with no assistance from a helper. 5-Set-up or Clean-up Assistance-helper sets up or cleans up; patient completes activity. [place] assists only prior to or following the activity. 4-Supervision or Touching Assistance-helper provides verbal cues and/or touching/steadying and/or contact guard assistance as patient completes activity. Assistance may be provided throughout the activity or intermittently. 3-Partial/Moderate Assistance-helper does LESS THAN HALF the effort. [place] lifts, holds or supports trunk or limbs, but provides less than half the effort. 2-Substantial/Maximal Assistance-helper does MORE THAN HALF the effort. [place] lifts or holds trunk or limbs and provides more than half the effort. 6-Htwkhzirr-lfdcrg does ALL the effort. Patient does none of the effort to complete the activity. Or, the assistance of 2 or more helpers is required for the patient to complete the activity. If activity was not attempted, code reason: 7-Patient Refused. 9-Not Applicable-not attempted and the patient did not perform the activity before the current illness, exacerbation or injury. 10-Not Attempted due to Environmental Limitations-(lack of equipment, weather restraints, etc.). 88-Not Attempted due to Medical Conditions or Safety Concerns. Roll Left to Right (QC): 2 Sit to Lying (QC): 2 Sit to Stand (QC): 2 Chair/Hlt-dz-Zfwfh Xfer(QC): 2 Car Transfer (QC): 88 Gait Training Does the Patient Walk?: No and Walking Goal NOT indicated Walk 10 feet (QC): 88 Walk 50 ft with 2 Turns(QC): 88 Walk 150 ft (QC): 88 Walking 10ft/uneven surface-QC: 88 Wheelchair Training Does the Pt Use a Wheelchair?: Yes Distance: 300' Wheel 50 ft with 2 turns (QC): 2 Wheel 150 ft (QC): 2 Type of Wheelchair: Manual Stair Training 1 Step (curb) (QC): 88 4 Steps (QC): 88 12 Steps (QC): 88 Balance Picking up an Object (QC): 88 ADL-Treatment Eating (QC): 2 (Max A) Oral Hygiene (QC): 1 Shower/Bathe Self (QC): 2 Upper Body Dressing (QC): 2 Lower Body Dressing (QC): 1 On/Off Footwear (QC): 2 (Max A) Toileting Hygiene (QC): 1 Toilet Transfer (QC): 1 Assessment/Plan Assessment and Plan Assess & Plan/Chief Complaint Assessment: 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 Lord regarding Arana catheter discontinuation Continue crushed pills Continue Clinimix Living will and palliative care consult 05/08/20: Reconsult Dr. Lord since she is not ready for palliative care Discontinued Catheter monitor for retention Bowels are a bit loose hold laxatives Peg tube will be required so will consult general surgery on that 05/09/20: PEG to placement per Dr. Chayo Scott today Continue therapies Prognosis poor intermediate card tender considering catastrophic level of stroke 05/10/20: Arana cath DC and she is able to empty with some incontinence appreciate Dr Mckinney PEG today Will DC IVF once PEG functioning Monitor closely 05/11/20: PEG tube for nutrition and fluids DC Clinimix Duonebs to dry up upper airway secretions 05/12/20: Maintain PEG tube feedings and free water Continue to use swallowing and ST to work with her for that to become stronger 05/13/20: Lab reviewed Monitor BP Nebs TF tolerated and change to bolus feeds 05/14/20: Increase oral food intake Maintain tube feedings Continue aggressive therapy 05/15/20: Supportive care for groin rash Monitor residule tube feedings Bowels are moving well Unsure of disposition plan 05/16/20: Increase food intake Two feedings providing calories Bowels are moving well (1) CVA (cerebral vascular accident) (2) EMPHYSEMA, UNSPECIFIED Status: Chronic (3) Denial about severity of illness (4) History of shingles (5) Uncontrolled hypertension Status: Acute (6) Aphasia (7) Debility Status: Acute (8) Hypoxia Status: Chronic (9) Dementia (10) Delirium (11) Memory loss (12) Paroxysmal atrial fibrillation Status: Chronic (13) Myopathy (14) Noncompliance with medication regimen Status: Chronic JEROME NEAL DO May 16, 2020 09:38
[2020-05-16] MEDS: polyethylene glycoL POWDER 17 GM (MIRALAX) PACK PO SCH ×2 (09:48→21:06)
--- NOTE | 2020-05-16 10:42 | Physical Therapy Daily Note ---
PT Daily Note-Current Subjective Pt in bed upon arrival and agrees to tx. Co-treat last 30 mins of tx d/t poor sitting balance, weakness, decreased ROM, and poor mobility. Mental Status Patient Orientation: Person, Place, Time, Situation Transfers SCALE: Activities may be completed with or without assistive devices. 6-Kuednpszbr-gjsixpk completes the activity by him/herself with no assistance from a helper. 5-Set-up or Clean-up Assistance-helper sets up or cleans up; patient completes activity. Max assists only prior to or following the activity. 4-Supervision or Touching Assistance-helper provides verbal cues and/or touching/steadying and/or contact guard assistance as patient completes activity. Assistance may be provided throughout the activity or intermittently. 3-Partial/Moderate Assistance-helper does LESS THAN HALF the effort. Max lifts, holds or supports trunk or limbs, but provides less than half the effort. 2-Substantial/Maximal Assistance-helper does MORE THAN HALF the effort. Max lifts or holds trunk or limbs and provides more than half the effort. 4-Bvatraxrr-usfmdz does ALL the effort. Patient does none of the effort to compl ete the activity. Or, the assistance of 2 or more helpers is required for the patient to complete the activity. If activity was not attempted, code reason: 7-Patient Refused. 9-Not Applicable-not attempted and the patient did not perform the activity before the current illness, exacerbation or injury. 10-Not Attempted due to Environmental Limitations-(lack of equipment, weather restraints, etc.). 88-Not Attempted due to Medical Conditions or Safety Concerns. Roll Left & Right (QC): 3 Sit to Lying (QC): 2 Lying to Sitting/Side of Bed(Q: 2 Sit to Stand (QC): 2 Chair/Mzr-nt-Pysac Xfer(QC): 2 Pt performed bed mobility at beginning of tx in order to change brief. Pt rolled to L and R side ModA x1, requiring assistance getting completely on side. Pt able to bed leg and push over, as well as reach with UE to handrail to A in rolling with VC on placement. Pt supine to side, able to bring LE EOB, needing A getting in an upright position and centered in midline. Pt sit to stand MaxAx2 and well as transfers, with PT performing sit to stand and another person A guide pt to WC. Pt sit to supine back in bed, with PT guiding legs and OT guiding torso. Weight Bearing Right Lower Extremity: Right Weight Bearing/Tolerated Left Lower Extremity: Left Weight Bearing/Tolerated Wheelchair Training Does the Pt Use a Wheelchair?: Yes Type of Wheelchair: Manual Pt able to propel WC with max VC and TC to A with hand placement. Pt propelled WC approx 15' x2, from the bed to the doorway and doorway back to the bed. Pt able to use BLE and L UE to propel WC, needing A with steering. Exercises Supine Ex: Ankle pumps, Heel Slides, Short Arc Quads, Straight leg raise, Hip abd/add Supine Reps: 6 Treatments Pt in bed upon arrival and performs bed mobility. Pt performs supine exercises, and transfers to . Pt propels WC from bed to doorway, and PT takes pt to gym. Pt SPT to mat in gym to perform static sitting balance. Pt able to hold static sitting approx 90 secs SBA. Pt takes rest break and hold static standing 20 secs x2 w a lean to the R. OT joins tx at this time and A with sitting balance. Pt performs dynamic sitting balance activity with reaching for cones. Pt reaches with L hand across midline in PNF patterns. Pt grabs 6 cones x2. Pt reaches for one cone with R hand, unable to reach full AROM. Pt transferred back to and propels WC backwards approx 10' then taken back to room. Pt propels WC from doorway to bed, and SPT back to bed. Pt performed bed mobility in order to change brief and be cleaned. Pt washed face at end of tx. Pt left in bed with all needs met, call light in hand. PT focused on transfers, bed mobility, sitting balance, and LE strengthening/positioning. OT focused on ADLs, cleaning, and UE strengthening/positioning. Assessment Current Status: Fair Progress Pt able to hold static sitting balance SBA, and bed mobility ModA x1 persons. Pt easily fatigues, needing frequent rest breaks. PT Short Term Goals Short Term Goals Time Frame: May 25, 2020 Roll Left & Right: 3 Sit to lyin Lying to sitting on side of be: 3 Sit to stand: 3 Chair/fwb-dr-fksyf transfer: 3 Toilet transfer: 3 Car transfer: 3 Walk 10 feet: 3 PT Shelter Goals Shelter Goals PT Shelter Goals Time Frame: Jun 08, 2020 Roll Left & Right (QC): 4 Sit to Lying (QC): 4 Lying-Sitting on Side/Bed(QC): 4 Sit to Stand (QC): 4 Chair/Twt-wt-Binif Xfer(QC): 4 Toilet Transfer (QC): 4 Car Transfer (QC): 4 Does the Patient Walk: No and Walking Goal IS indicated Walk 10 feet (QC): 4 Walk 50ft with 2 Turns (QC): 4 Walk 150 ft (QC): 4 Walking 10ft on Uneven Surface: 4 1 Step (curb) (QC): 4 4 Steps (QC): 4 12 Steps (QC): 9 Picking up an Object (QC): 3 Does the Pt use WC or Scooter?: Yes Wheel 50 feet with 2 turns (QC: 4 Type: Manual Wheel 150 feet: 4 PT Plan Treatment/Plan Treatment Plan: Continue Plan of Care Treatment Plan: Bed Mobility, Concurrent Therapy, Education, Functional Activity Rex, Functional Strength, Group Therapy, Gait, Safety, Therapeutic Exercise, Transfers Treatment Duration: Jun 08, 2020 Frequency: Modified Program (IRF) (01/05) Estimated Hrs Per Day: 1.5 hours per day Patient and/or Family Agrees t: Yes Safety Risks/Education Patient Education: Transfer Techniques, Correct Positioning, W/C Management, Safety Issues Teaching Recipient: Patient Teaching Methods: Demonstration, Discussion Response to Teaching: Verbalize Understanding, Return Demonstration, Reinforcement Needed Time/GCodes Time In: 900 Time Out: 1015 Total Billed Treatment Time: 75 Total Billed Treatment 1, NM x2 (30m), EX (15m), [facility] (15m), FA (15m) [place] w/OT for 30m ([id number]) KLARISSA RITCHIE PTA May 16, 2020 10:42
--- NOTE | 2020-05-16 11:13 | Occupational Ther Daily Note ---
OT Current Status-Daily Note Subjective Pt. seated on edge of mat in therapy gym with PT at start of this session. No c/o pain. Mental Status/Objective Patient Orientation: Person Attachments: PEG Tube ADL-Treatment Therapy Code Descriptions/Definitions Functional [place] Measure: 0=Not Assessed/NA 4=Minimal Assistance 1=Total Assistance 5=Supervision or Setup 2=Maximal Assistance 6=Modified [place] 3=Moderate Assistance 7=Complete IndependenceSCALE: Activities may be completed with or without assistive devices. 8-Nfqerhfvlh-squqtwn completes the activity by him/herself with no assistance from a helper. 5-Set-up or Clean-up Assistance-helper sets up or cleans up; patient completes activity. [place] assists only prior to or following the activity. 4-Supervision or Touching Assistance-helper provides verbal cues and/or touching/steadying and/or contact guard assistance as patient completes activity. Assistance may be provided throughout the activity or intermittently. 3-Partial/Moderate Assistance-helper does LESS THAN HALF the effort. [place] lifts, holds or supports trunk or limbs, but provides less than half the effort. 2-Substantial/Maximal Assistance-helper does MORE THAN HALF the effort. [place] lifts or holds trunk or limbs and provides more than half the effort. 9-Jackkpjmw-lghwrs does ALL the effort. Patient does none of the effort to complete the activity. Or, the assistance of 2 or more helpers is required for the patient to complete the activity. If activity was not attempted, code reason: 7-Patient Refused. 9-Not Applicable-not attempted and the patient did not perform the activity before the current illness, exacerbation or injury. 10-Not Attempted due to Environmental Limitations-(lack of equipment, weather restraints, etc.). 88-Not Attempted due to Medical Conditions or Safety Concerns. Toileting Hygiene (QC): 1 Toilet Transfer (QC): 2 (Max assist for bed mobility onto bed gallagher) Other Treatment Co-treat with PT due to skilled need of 2 clinicians for medical complexity. PT focusing on mobility, and balance. OT facilitating UE ROM, functional activity tolerance, and functional transfers. Pt. seated on edge of mat working on unsupported sitting balance. Pt. able to sit without assistance for 15 seconds on two attempts with an extended rest break between. With min A for sitting balance, pt. able to grab cones using left hand, move them across midline and place them on a stack of cones. She was also able to visually locate cone and stack as they moved location. Pt. able to tolerate activity for 8 minutes before fatiguing and requesting to return to bed. SPT required max A. Pt. self propelled w/c backwards 10 feet, then returned to room. Verbal cues provided for pt. to attempt to self propel from door to bed approximately 20 feet. Multiple cues and extra time provided for pt to propel 10 feet. Max A SPT w/c-bed. Pt. instructed on how to complete sit-supine transfer requiring mod A to complete. Positioning in bed required assist x2. Pt. educated on rehab process and importa nce of participation to reach goals. She verbalized understanding. Pt. requested using restroom and was placed on a bed gallagher with mod A for bed mobility. Zina area cleansing and brief donning dependent. Pt. in bed with call light in reach. All needs met. Education OT Patient Education: Correct positioning, Disease process, Energy conservation, Modified ADL techniques, Progress toward Goal/Update tx plan, Purpose of tx/functional activities, Reviewed precautions, Rehab process, Transfer techniques, W/C management Teaching Recipient: Patient Teaching Methods: Demonstration, Discussion Response to Teaching: Verbalize Understanding, Return Demonstration, Reinforcem ent Needed OT Short Term Goals Short Term Goals Time Frame: May 17, 2020 Shower/bathe self: 2 Upper body dressin Lower body dressin OT Diamond Saw Operator Goals Senior Living Goals Time Frame: May 31, 2020 Eating (QC): 4 Oral Hygiene (QC): 4 Toileting Hygiene (QC): 3 Shower/Bathe Self (QC): 3 Upper Body Dressing (QC): 4 Lower Body Dressing (QC): 3 On/Off Footwear (QC): 3 Additional Goals: 1-Demonstrate ADL Tasks, 2-Verbalize Understanding, 3- ImproveStrength/Rex 1=Demonstrate adherence to instructed precautions during ADL tasks. 2=Patient will verbalize/demonstrate understanding of assistive devices/modifications for ADL. 3=Patient will improve strength/tolerance for activity to enable patient to perform ADL's. OT Education/Plan Problem List/Assessment Assessment: Decreased Activ Tolerance, Decreased UE Strength, Dependent Transfers, Impaired Bed Mobility, Impaired Cognition, Impaired Coordination, Impaired Funct Balance, Impaired I ADL's, Impaired Self-Care Skills, Restricted Funct UE ROM, Visual-Perceptual Deficit Discharge Recommendations Plan/Recommendations: Continue POC Therapy Discharge Recommendati: 24 Hour Supervision Treatment Plan/Plan of Care Treatment,Training & Education: Yes Patient would benefit from OT for education, treatment and training to promote independence in ADL's, mobility, safety and/or upper extremity function for ADL's. Plan of Care: ADL Retraining, Functional Mobility, Group Exercise/Act as Ind, UE Funct Exercise/Act, UE Neuromus Re-Ed/Coord, Visual/Perceptual Retrain Treatment Duration: May 31, 2020 Frequency: Modified Program (IRF) (01/05) Estimated Hrs Per Day: Other Agreement: Yes Rehab Potential: Fair Time/GCodes Start Time: 09:45 Stop Time: 10:15 Total Time Billed (hr/min): 30 Billed Treatment Time 1, FA2 Co-treated with PT time piece repairer. Please see above note for designated roles. RILEY DUBON OT May 16, 2020 11:13
--- NOTE | 2020-05-16 14:00 | Speech Therapy Daily Note ---
Speech Daily Progress Note Subjective Date Seen by Provider: May 16, 2020 Time Seen by Provider: 00:30 Patient was resting in bed with her daughter at bedside. Patient was alert and talkative this date. Objective Patient completed q/a related to her needs with 60% given min to mod verbal cues and/or repetitions. Assessment Assessment Current Status: Good Progress Treatment Plan Continue Plan of Care Speech Short Term Goals Short Term Goals Short Term Goals 1) Patient will answer y/n questions related to herself with 80% or greater with minimal cues. 2) Patient will respond to questions related to items/pictures at 80% or greater with minimal cues. 3) Patient will tolerate least restrictive diet level without s/s of aspiration at 80% or greater. 4) Patient/caregiver will utilize compensatory strategies as trained at 90% or greater with minimal cues. Speech Group Home Goals Bladder Trimmer Goals Patient will improve communication necessary for safety and daily living tasks with minimal assist. Patient will maintain adequate nutrition/hydration via safe, effective swallow function. Speech-Plan Patient/Family Goals Patient/Family Goals: Patient plans on returning to her home with family support. Treatment Plan Speech Therapy Treatment Plan: Continue Plan of Care Treatment Duration: May 17, 2020 Frequency: 5 times per week Estimated Hrs Per Day: .5 hour per day Rehab Potential: Fair Barriers to Learning: Patient's medical status, age, cognitive deficits Pt/Family Agrees to Plan: Yes Safety Risks/Education Teaching Recipient: Patient, Family Teaching Methods: Demonstration, Discussion Response to Teaching: Verbalize Understanding, Return Demonstration Education Topics Provided: Continued safety and communication Time Speech Therapy Time In: 11:00 Speech Therapy Time Out: 11:30 Total Billed Time: 30 Billed Treatment Time PATIENCE Garza [address] May 16, 2020 13:59
--- NOTE | 2020-05-16 14:11 | NUR ---
CM/SS PATIENT CARE CONFERENCE Reviewed Summary with patient's daughter/DPOA, Shahida Alvarez, by phone. Patient's daughter Lyly is here visiting today, spouse will come tomorrow, per the current Covid protocol one visitor per patient per day. Approached Shahida about forward thinking regarding whether they envision patient returning home with private caregiver assistance vs return to a community long term facility. Track Vehicle Repairer did again review that patient does not have any Medicare skilled benefits to access and that either post hospital care plan would be private pay. Shahida indicates they fully intend for patient to return home, she desires patient to stay on ARU as long as is possible hopeful for increasing gains in her level of functioning. It will be important to maintain communication regarding the assistive devices and overall personal care patient will require so that the home can be set up and a team of caregivers can be coordinated in advance of a target discharge. Advised Shahida of physician regina roundwolf so she can be present and her medical questions can be shared and answered to her satisfaction. Patient has PEG tube, unsure if this will be temporary or continue at discharge, depending on patient's ability to manage oral intake.
--- NOTE | 2020-05-16 15:33 | Occupational Ther Daily Note ---
OT Current Status-Daily Note Subjective Pt in bed when OT entered the room. No c/o pain. Pt. agreeable to showering with OT. Mental Status/Objective Patient Orientation: Person Attachments: PEG Tube ADL-Treatment Therapy Code Descriptions/Definitions Functional [place] Measure: 0=Not Assessed/NA 4=Minimal Assistance 1=Total Assistance 5=Supervision or Setup 2=Maximal Assistance 6=Modified [place] 3=Moderate Assistance 7=Complete IndependenceSCALE: Activities may be completed with or without assistive devices. 0-Gjmbahjrxo-hsxcviz completes the activity by him/herself with no assistance from a helper. 5-Set-up or Clean-up Assistance-helper sets up or cleans up; patient completes activity. [place] assists only prior to or following the activity. 4-Supervision or Touching Assistance-helper provides verbal cues and/or touching/steadying and/or contact guard assistance as patient completes activity. Assistance may be provided throughout the activity or intermittently. 3-Partial/Moderate Assistance-helper does LESS THAN HALF the effort. [place] lif ts, holds or supports trunk or limbs, but provides less than half the effort. 2-Substantial/Maximal Assistance-helper does MORE THAN HALF the effort. [place] lifts or holds trunk or limbs and provides more than half the effort. 9-Oynazpzzy-btewww does ALL the effort. Patient does none of the effort to complete the activity. Or, the assistance of 2 or more helpers is required for the patient to complete the activity. If activity was not attempted, code reason: 7-Patient Refused. 9-Not Applicable-not attempted and the patient did not perform the activity before the current illness, exacerbation or injury. 10-Not Attempted due to Environmental Limitations-(lack of equipment, weather restraints, etc.). 88-Not Attempted due to Medical Conditions or Safety Concerns. Shower/Bathe Self (QC): 1 On/Off Footwear: 2 (Max A) Toileting Hygiene (QC): 1 Toilet Transfer (QC): 2 (Max A) Pt. transferred supine- sit with Max A. She transferred to shower chair with Max A. [place] dirty brief required assist x2 one for standing and one for removing brief. Pt. was then wheeled into shower. Max A required to doff slipper socks as pt. facilitated by raising her feet. Pt. began to bathe, but became emotional when discussing current situation. After OT washed and dried pt, pt. required max A for donning slipper socks. Pt. then transferred from shower chair to toilet with Max A. Pt. handed toilet paper and attempted to get her own toilet paper, but struggled with sequencing jen cleansing. Assist x2 needed to don new brief. Seated in w/c in front of sink, pt attempted to brush her hair and required Max A to complete task. Pt. taken to bed and transferred w/c to EOB with Max A. When transferring supine, pt. able to lift legs requiring Mod A to position. Pt. was much more alert and oriented this session and was emotional about her current situation. Nursing notified that pt. was ready for bandage pm feeding tube to be changed. All needs met. Education OT Patient Education: Correct positioning, Energy conservation, Modified ADL techniques, Progress toward Goal/Update tx plan, Purpose of tx/functional activities, Reviewed precautions, Rehab process, Safety issues, Transfer techniques Teaching Recipient: Patient Teaching Methods: Demonstration, Discussion Response to Teaching: Verbalize Understanding, Return Demonstration, Reinforcement Needed OT Short Term Goals Short Term Goals Time Frame: May 17, 2020 Shower/bathe self: 2 Upper body dressin Lower body dressin OT Inspector Insulation Goals Inspector Insulation Goals Time Frame: May 31, 2020 Eating (QC): 4 Oral Hygiene (QC): 4 Toileting Hygiene (QC): 3 Shower/Bathe Self (QC): 3 Upper Body Dressing (QC): 4 Lower Body Dressing (QC): 3 On/Off Footwear (QC): 3 Additional Goals: 1-Demonstrate ADL Tasks, 2-Verbalize Understanding, 3-ImproveStrength/Rex 1=Demonstrate adherence to instructed precautions during ADL tasks. 2=Patient will verbalize/demonstrate understanding of assistive devices/modifications for ADL. 3=Patient will improve strength/tolerance for activity to enable patient to perform ADL's. OT Education/Plan Problem List/Assessment Assessment: Decreased Activ Tolerance, Decreased Safety Aware, Decreased UE Strength, Dependent Transfers, Impaired Bed Mobility, Impaired Cognition, Impaired Coordination, Impaired Funct Balance, Impaired I ADL's, Impaired Self- Care Skills, Restricted Funct UE ROM, Visual-Perceptual Deficit Discharge Recommendations Plan/Recommendations: Continue POC Therapy Discharge Recommendati: 24 Hour Supervision, Post Acute OT Treatment Plan/Plan of Care Treatment,Training & Education: Yes Patient would benefit from OT for education, treatment and training to promote independence in ADL's, mobility, safety and/or upper extremity function for ADL's. Plan of Care: ADL Retraining, Functional Mobility, Group Exercise/Act as Ind, UE Funct Exercise/Act, UE Neuromus Re-Ed/Coord, Visual/Perceptual Retrain Treatment Duration: May 31, 2020 Frequency: Modified Program (IRF) (01/05) Estimated Hrs Per Day: Other Agreement: Yes Rehab Potential: Fair Time/GCodes Start Time: 14:15 Stop Time: 15:00 Total Time Billed (hr/min): 45 Billed Treatment Time 1, ADL 3 (45 minutes) RILEY DUBON OT May 16, 2020 15:33
[2020-05-16 18:00] VITALS: BP 157/74
[2020-05-16] MEDS: MICONAZOLE 2% POWDER (DESENEX AF) 90 GM TOP SCH (21:05)
[2020-05-17 05:13] VITALS: BP 145/70
--- NOTE | 2020-05-17 06:22 | PM&R Progress Note ---
Subjective HPI/CC On Admission Date Seen by Provider: May 17, 2020 Time Seen by Provider: 10:00 Subjective/Events-last exam Ate 50% supper last night Difficult getting spoon to mouth BM+ No pain reported Checked meds and labs Conferred with RN Reviewed therapy notes Review of Systems General: Fatigue, Malaise 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: Weakness Objective Exam Vital Signs Vital Signs Date Time Temp Pulse Resp B/P (MAP) Pulse Ox O2 Delivery O2 Flow Rate FiO2 05/17/20 21:00 Room Air 05/17/20 18:36 100 05/17/20 17:17 36.2 84 18 145/70 (95) 05/14/20 17:20 1.00 Capillary Refill : Less Than 3 Seconds General Appearance: No Apparent Distress, WD/WN, Chronically ill HEENT: PERRL/EOMI, Normal ENT Inspection, Pharynx Normal Neck: Full Range of Motion, Normal Inspection, Non Tender, Supple, Carotid Bruit Respiratory: Chest Non Tender, Lungs Clear, Normal Breath Sounds, No Accessory Muscle Use, No Respiratory Distress Cardiovascular: Regular Rate, Rhythm, No Edema, No Gallop, No JVD, No Murmur, Normal Peripheral Pulses Gastrointestinal: Normal Bowel Sounds, No Organomegaly, No Pulsatile Mass, Non Tender, Soft Back: Normal Inspection, No CVA Tenderness, No Vertebral Tenderness Extremity: Normal Capillary Refill, Normal Inspection, Normal Range of Motion, Non Tender, No Calf Tenderness, No Pedal Edema Neurologic/Psychiatric: Alert, 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 FIM Transfers Therapy Code Descriptions/Definitions Functional [place] Measure: 0=Not Assessed/NA 4=Minimal Assistance 1=Total Assistance 5=Supervision or Setup 2=Maximal Assistance 6=Modified [place] 3=Moderate Assistance 7=Complete IndependenceSCALE: Activities may be completed with or without assistive devices. 3-Lmqaithecy-nbzrjuc completes the activity by him/herself with no assistance from a helper. 5-Set-up or Clean-up Assistance-helper sets up or cleans up; patient completes activity. [place] assists only prior to or following the activity. 4-Supervision or Touching Assistance-helper provides verbal cues and/or touching/steadying and/or contact guard assistance as patient completes activity. Assistance may be provided throughout the activity or intermittently. 3-Partial/Moderate Assistance-helper does LESS THAN HALF the effort. [place] lifts, holds or supports trunk or limbs, but provides less than half the effort. 2-Substantial/Maximal Assistance-helper does MORE THAN HALF the effort. [place] lifts or holds trunk or limbs and provides more than half the effort. 4-Dgyyzohon-yicwee does ALL the effort. Patient does none of the effort to complete the activity. Or, the assistance of 2 or more helpers is required for the patient to complete the activity. If activity was not attempted, code reason: 7-Patient Refused. 9-Not Applicable-not attempted and the patient did not perform the activity before the current illness, exacerbation or injury. 10-Not Attempted due to Environmental Limitations-(lack of equipment, weather restraints, etc.). 88-Not Attempted due to Medical Conditions or Safety Concerns. Roll Left to Right (QC): 3 Sit to Lying (QC): 2 Sit to Stand (QC): 2 Chair/Xoq-uc-Tbyvq Xfer(QC): 2 Car Transfer (QC): 88 Gait Training Does the Patient Walk?: No and Walking Goal NOT indicated Walk 10 feet (QC): 88 Walk 50 ft with 2 Turns(QC): 88 Walk 150 ft (QC): 88 Walking 10ft/uneven surface-QC: 88 Wheelchair Training Does the Pt Use a Wheelchair?: Yes Distance: 300' Wheel 50 ft with 2 turns (QC): 2 Wheel 150 ft (QC): 2 Type of Wheelchair: Manual Stair Training 1 Step (curb) (QC): 88 4 Steps (QC): 88 12 Steps (QC): 88 Balance Picking up an Object (QC): 88 ADL-Treatment Eating (QC): 2 (Max A) Oral Hygiene (QC): 1 Shower/Bathe Self (QC): 1 Upper Body Dressing (QC): 2 Lower Body Dressing (QC): 1 On/Off Footwear (QC): 2 (Max A) Toileting Hygiene (QC): 1 Toilet Transfer (QC): 2 (Max A) Assessment/Plan Assessment and Plan Assess & Plan/Chief Complaint Assessment: 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 Lord regarding Arana catheter discontinuation Continue crushed pills Continue Clinimix Living will and palliative care consult 05/08/20: Reconsult Dr. Lord since she is not ready for palliative care Discontinued Catheter monitor for retention Bowels are a bit loose hold laxatives Peg tube will be required so will consult general surgery on that 05/09/20: PEG to placement per Dr. 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 05/10/20: Arana cath DC and she is able to empty with some incontinence appreciate Dr Mckinney PEG today Will DC IVF once PEG functioning Monitor closely 05/11/20: PEG tube for nutrition and fluids DC Clinimix Duonebs to dry up upper airway secretions 05/12/20: Maintain PEG tube feedings and free water Continue to use swallowing and ST to work with her for that to become stronger 05/13/20: Lab reviewed Monitor BP Nebs TF tolerated and change to bolus feeds 05/14/20: Increase oral food intake Maintain tube feedings Continue aggressive therapy 05/15/20: Supportive care for groin rash Monitor residule tube feedings Bowels are moving well Unsure of disposition plan 05/16/20: Increase food intake Two feedings providing calories Bowels are moving well 05/17/20: Encourage oral nutrition Work on getting spoon to her mouth Bowels are moving well (1) CVA (cerebral vascular accident) (2) EMPHYSEMA, UNSPECIFIED Status: Chronic (3) Denial about severity of illness (4) History of shingles (5) Uncontrolled hypertension Status: Acute (6) Aphasia (7) Debility Status: Acute (8) Hypoxia Status: Chronic (9) Dementia (10) Delirium (11) Memory loss (12) Paroxysmal atrial fibrillation Status: Chronic (13) Myopathy (14) Noncompliance with medication regimen Status: Chronic JEROME NEAL DO May 17, 2020 06:22
[2020-05-17] MEDS: ASPIRIN 81 MG CHEW (CHILDREN'S ASA) PO SCH (08:20)
[2020-05-17] MEDS: MICONAZOLE 2% POWDER (DESENEX AF) 90 GM TOP PRN (08:20)
[2020-05-17] MEDS: APIXABAN 5 MG (ELIQUIS) TABLET PO SCH ×2 (08:20→20:34)
[2020-05-17] MEDS: DOCUSATE SODIUM 100 MG (COLACE) CAP PO SCH ×2 (08:20→20:34)
[2020-05-17] MEDS: MICONAZOLE 2% POWDER (DESENEX AF) 90 GM TOP SCH ×2 (08:20→20:35)
[2020-05-17] MEDS: polyethylene glycoL POWDER 17 GM (MIRALAX) PACK PO SCH ×2 (09:37→20:35)
[2020-05-17] MEDS: SENNA W/DOCUSATE (SENOKOT S) TABLET PO SCH ×2 (09:38→20:34)
[2020-05-17] MEDS: RT-ALBUTEROL/IPRATROPIUM 3 ML (DUONEB) VIAL INH SCH ×3 (10:00→18:36)
--- NOTE | 2020-05-17 11:19 | Physical Therapy Daily Note ---
PT Daily Note-Current Subjective Pt in bed upon arrival and agrees to co-treat. Pt states she is extremely tired and didn't sleep well last night. Throughout tx, pt states she wants to return to bed. Mental Status Patient Orientation: Person, Place, Time, Situation Transfers SCALE: Activities may be completed with or without assistive devices. 4-Cuzslajfhb-iurjyyb completes the activity by him/herself with no assistance from a helper. 5-Set-up or Clean-up Assistance-helper sets up or cleans up; patient completes activity. [place] assists only prior to or following the activity. 4-Supervision or Touching Assistance-helper provides verbal cues and/or touch ing/steadying and/or contact guard assistance as patient completes activity. Assistance may be provided throughout the activity or intermittently. 3-Partial/Moderate Assistance-helper does LESS THAN HALF the effort. [place] lifts, holds or supports trunk or limbs, but provides less than half the effort. 2-Substantial/Maximal Assistance-helper does MORE THAN HALF the effort. [place] lifts or holds trunk or limbs and provides more than half the effort. 1-Xgrgrcvme-lcuntx does ALL the effort. Patient does none of the effort to complete the activity. Or, the assistance of 2 or more helpers is required for the patient to complete the activity. If activity was not attempted, code reason: 7-Patient Refused. 9-Not Applicable-not attempted and the patient did not perform the activity before the current illness, exacerbation or injury. 10-Not Attempted due to Environmental Limitations-(lack of equipment, weather restraints, etc.). 88-Not Attempted due to Medical Conditions or Safety Concerns. Roll Left & Right (QC): 2 Sit to Lying (QC): 2 Lying to Sitting/Side of Bed(Q: 2 Sit to Stand (QC): 2 Chair/Fyo-gi-Rzqzw Xfer(QC): 2 Pt supine to sit, requiring VC to bring LE to EOB, but pt unable to do so. PT assisted pt bring LE on EOB as OT brings torso upright. Pt instructed to bring bottom closer to EOB, but required PT and OT to use bed pad square under and bring her closer to EOB. Pt SPT to WC, PT instructed pt. to reach out with R UE for armrest on chair to assist in turning for Stand pivot TRF with OT guiding hand over hand , but pt unable to do so. PT SPT pt as OT directed pt towards WC. Pt taken to gym at this time. Pt performed sit to stand x2 by pulling up on // bars. Pt required 2 assist, PT on one side supporting R LE and providing TC and significant support on hips for upright position as well as support and stabilizing to right knee into some extension. OT providing support for R UE to provide WB, and providing TC on shoulder for upright position. Pt taken back to room and SPT by PT as RN assist guiding pt to bed. Pt performed bed mobility, requiring assistance bending knee and reaching using hand rail on bed. PT assisted pt in rolling completely on side as RN placed pillows behind pt for positioning. Weight Bearing Right Lower Extremity: Right Weight Bearing/Tolerated Left Lower Extremity: Left Weight Bearing/Tolerated Wheelchair Training Does the Pt Use a Wheelchair?: Yes Type of Wheelchair: Manual Pt instructed to propel WC in room from bed to door, given VC and TC with hand on hand placement onto WC rims. Pt given ample opportunity to engage in w/c mobility but did not respond. Pt taken out to hallway on unit and instructed to propel WC again. Pt able to propel approx 2' with VC and TC, as well as assistance for steering. Pt pushed rest of way to PT gym. Post tx, pt taken back out to hallway and instructed to propel WC, with hand on hand placement and VC/TC on LEs. Pt again did not perform WC mobility at this time and taken back to room. Exercises Supine Ex: Rolling, Lower trunk rotation, Heel Slides, Hip abd/add Supine Reps: 4 (to facilitate bed mobility) Standing: Sit to Stand (45 secs each) Standing Reps: 2 Treatments Pt in bed perform supine to sit as stated above. Pt instructed by OT to attempt to take off gown, to change into clean clothes. Pt did not complete this task. OT assist pt in doffing gown as PT assist pt with sitting balance as pt tends to lean to R and forward. OT assist pt in donning shirt and pants while PT focuses on sitting balance w/ pt. Once pt has donned clothes, PT SPT pt to WC, as OT guides pt to WC and assist pt in pulling pants up. Pt asked to propel WC Indep at this time but did not complete this. Pt taken to gym and instructed to take off socks. PT assisted pt in getting L foot onto R knee, OT hand on hand placement as pt reached for sock with L UE and pulled off sock. Pt required OT to doff sock once it was passed ankle. Pt attempted to doff sock on L LE, but was unable to. OT gave pt dressing stick and instructed pt on use. Pt able to get sock down to ankle, but did not complete doffing of sock. Pt required assistance donning both socks. After a resting period, pt taken to // bars and instructed in sit to stand, and performed static standing balance as stated above with great assist of 2 for task. Pt performed static standing balance x2 trials with total assist of 2 for approx 45 secs each. Pt taken out of gym to [place] on unit, and instructed to propel WC. Pt again did not complete this task a t this time. Pt taken back to room. Pt given breathing tx while in WC, and at this time OT finished with their tx time. PT and RN transferred pt back to bed as stated above, and was left with all needs met, call light in hand. PT focused on functional transfers, sit to stands, static sitting/standing balance, and LE positioning/strengthening. OT focused on dressing, functional transfers, and UE positioning/strengthening. Assessment Current Status: Fair Progress Use of two clinicians for neuromuscular retraining with functional movement d/t dependent weakness and decreased mobility. Pt more fatigued throughout tx today, requiring more motivation to perform tasks. PT Short Term Goals Short Term Goals Time Frame: May 25, 2020 Roll Left & Right: 3 Sit to lyin Lying to sitting on side of be: 3 Sit to stand: 3 Chair/llp-ff-wzaem transfer: 3 Toilet transfer: 3 Car transfer: 3 Walk 10 feet: 3 PT Shelter Goals Shelter Goals PT Shelter Goals Time Frame: Jun 08, 2020 Roll Left & Right (QC): 4 Sit to Lying (QC): 4 Lying-Sitting on Side/Bed(QC): 4 Sit to Stand (QC): 4 Chair/Bbr-yq-Jvgwi Xfer(QC): 4 Toilet Transfer (QC): 4 Car Transfer (QC): 4 Does the Patient Walk: No and Walking Goal IS indicated Walk 10 feet (QC): 4 Walk 50ft with 2 Turns (QC): 4 Walk 150 ft (QC): 4 Walking 10ft on Uneven Surface: 4 1 Step (curb) (QC): 4 4 Steps (QC): 4 12 Steps (QC): 9 Picking up an Object (QC): 3 Does the Pt use WC or Scooter?: Yes Wheel 50 feet with 2 turns (QC: 4 Type: Manual Wheel 150 feet: 4 PT Plan Treatment/Plan Treatment Plan: Continue Plan of Care Treatment Plan: Bed Mobility, Concurrent Therapy, Education, Functional Activity Rex, Functional Strength, Group Therapy, Gait, Safety, Therapeutic Exercise, Transfers Treatment Duration: Jun 08, 2020 Frequency: Modified Program (IRF) (01/05) Estimated Hrs Per Day: 1.5 hours per day Patient and/or Family Agrees t: Yes Safety Risks/Education Patient Education: Correct Positioning, W/C Management, Safety Issues Teaching Recipient: Patient Teaching Methods: Demonstration, Discussion Response to Teaching: Verbalize Understanding, Return Demonstration, Reinforcement Needed Time/GCodes Time In: 900 Time Out: 1015 Total Billed Treatment Time: 75 Total Billed Treatment 1, NM x2 (30m), FA x2 (30m), WCH (15m) DANYELLE CALLEJAS [employer] May 17, 2020 11:19
--- NOTE | 2020-05-17 11:50 | Occupational Ther Daily Note ---
OT Current Status-Daily Note Subjective Pt reported that she did not sleep well last night. No c/o pain. Pt agreeable to therapy. Mental Status/Objective Patient Orientation: Person Attachments: Central Line, PEG Tube ADL-Treatment Therapy Code Descriptions/Definitions Functional [place] Measure: 0=Not Assessed/NA 4=Minimal Assistance 1=Total Assistance 5=Supervision or Setup 2=Maximal Assistance 6=Modified [place] 3=Moderate Assistance 7=Complete IndependenceSCALE: Activities may be completed with or without assistive devices. 0-Oweweyysfd-gbeiqve completes the activity by him/herself with no assistance from a helper. 5-Set-up or Clean-up Assistance-helper sets up or cleans up; patient completes activity. [place] assists only prior to or following the activity. 4-Supervision or Touching Assistance-helper provides verbal cues and/or touching/steadying and/or contact guard assistance as patient completes activity. Assistance may be provided throughout the activity or intermittently. 3-Partial/Moderate Assistance-helper does LESS THAN HALF the effort. [place] lifts, holds or supports trunk or limbs, but provides less than half the effort. 2-Substantial/Maximal Assistance-helper does MORE THAN HALF the effort. [place] lifts or holds trunk or limbs and provides more than half the effort. 3-Ojaiepbbt-egiijn does ALL the effort. Patient does none of the effort to complete the activity. Or, the assistance of 2 or more helpers is required for the patient to complete the activity. If activity was not attempted, code reason: 7-Patient Refused. 9-Not Applicable-not attempted and the patient did not perform the activity before the current illness, exacerbation or injury. 10-Not Attempted due to Environmental Limitations-(lack of equipment, weather restraints, etc.). 88-Not Attempted due to Medical Conditions or Safety Concerns. Upper Body Dressing (QC): 3 (Mod A) Lower Body Dressing (QC): 1 On/Off Footwear: 3 (Mod A) Co-treat with PT as pt required assistance of two skilled therapists. PT focusing on mobility, transfers, and LE strength. OT facilitating ADL skills, functional transfers, and UE positioning. Pt. laying supine in bed when therapy entered room. She reported that she did not sleep well last night. Pt. agreed to getting up and ready to go to the gym. Pt. required extra encouragement throughout session today. Max A required for supine-sit EOB transfer. Pt. handed shirt and required Mod A to thread arms and extractor puller torso, while she pulled shirt up over her head. Pt. required assist x2 for donning pants, one to assist with standing and one to pull pants over hips. She transferred from EOB to w/c with Max A. Multiple cues and encouragement provided for pt. to self-propel w/c 10 feet. Pt. then transported to gym. Once in gym, pt. provided with clean socks. Pt. able to doff and don slipper sock on R foot with Min A for positioning. Max A needed to doff and don L sock due to pain, education on dressing stick to doff socks attempted. Pt. tolerated standing for approximately 30 seconds on 2 attempts at the parallel bars with Max assist x2 to maintain proper posture. Pt. with PT when OT left room. All needs met. Education OT Patient Education: Correct positioning, Disease process, Energy conservation, Modified ADL techniques, Progress toward Goal/Update tx plan, Purpose of tx/functional activities, Reviewed precautions, Rehab process, Safety issues, Transfer techniques, Use of adapted equipment, W/C management Teaching Recipient: Patient, Family Teaching Methods: Demonstration, Discussion Response to Teaching: Verbalize Understanding, Unable to Return Demonstration, Return Demonstration, Reinforcement Needed OT Short Term Goals Short Term Goals Time Frame: May 17, 2020 Shower/bathe self: 2 Upper body dressin Lower body dressin OT Mcfp Goals Mcfp Goals Time Frame: May 31, 2020 Eating (QC): 4 Oral Hygiene (QC): 4 Toileting Hygiene (QC): 3 Shower/Bathe Self (QC): 3 Upper Body Dressing (QC): 4 Lower Body Dressing (QC): 3 On/Off Footwear (QC): 3 Additional Goals: 1-Demonstrate ADL Tasks, 2-Verbalize Understanding, 3- ImproveStrength/Rex 1=Demonstrate adherence to instructed precautions during ADL tasks. 2=Patient will verbalize/demonstrate understanding of assistive devices/modific ations for ADL. 3=Patient will improve strength/tolerance for activity to enable patient to perform ADL's. OT Education/Plan Problem List/Assessment Assessment: Decreased Activ Tolerance, Decreased Safety Aware, Decreased UE Strength, Dependent Transfers, Impaired Bed Mobility, Impaired Cognition, Impaired Coordination, Impaired Funct Balance, Impaired I ADL's, Impaired Self- Care Skills, Restricted Funct UE ROM Discharge Recommendations Plan/Recommendations: Continue POC Therapy Discharge Recommendati: 24 Hour Supervision Treatment Plan/Plan of Care Treatment,Training & Education: Yes Patient would benefit from OT for education, treatment and training to promote independence in ADL's, mobility, safety and/or upper extremity function for ADL's. Plan of Care: ADL Retraining, Functional Mobility, Group Exercise/Act as Ind, UE Funct Exercise/Act, UE Neuromus Re-Ed/Coord, Visual/Perceptual Retrain Treatment Duration: May 31, 2020 Frequency: Modified Program (IRF) (01/05) Estimated Hrs Per Day: Other Agreement: Yes Rehab Potential: Fair Time/GCodes Start Time: 09:00 Stop Time: 10:00 Total Time Billed (hr/min): 60 Billed Treatment Time 1, ADL 2 (30 minutes), FA 2 (30 minutes) Co-treat with PT 60 min. See above note for designated roles. JENELLE RAMSEY May 17, 2020 11:50
--- NOTE | 2020-05-17 13:18 | Occupational Ther Daily Note ---
OT Current Status-Daily Note Subjective Pt. alert lying supine in bed when OT entered room. No c/o pain. Pt. agreeable to therapy. Mental Status/Objective Patient Orientation: Person Attachments: Central Line, PEG Tube ADL-Treatment Therapy Code Descriptions/Definitions Functional [place] Measure: 0=Not Assessed/NA 4=Minimal Assistance 1=Total Assistance 5=Supervision or Setup 2=Maximal Assistance 6=Modified [place] 3=Moderate Assistance 7=Complete IndependenceSCALE: Activities may be completed with or without assistive devices. 2-Jdrzeztzac-puaxzuw completes the activity by him/herself with no assistance from a helper. 5-Set-up or Clean-up Assistance-helper sets up or cleans up; patient completes activity. [place] assists only prior to or following the activity. 4-Supervision or Touching Assistance-helper provides verbal cues and/or touching/steadying and/or contact guard assistance as patient completes activity. Assistance may be provided throughout the activity or intermittently. 3-Partial/Moderate Assistance-helper does LESS THAN HALF the effort. [place] lifts, holds or supports trunk or limbs, but provides less than half the effort. 2-Substantial/Maximal Assistance-helper does MORE THAN HALF the effort. [place] lifts or holds trunk or limbs and provides more than half the effort. 8-Yrshqbzyp-ldrytk does ALL the effort. Patient does none of the effort to complete the activity. Or, the assistance of 2 or more helpers is required for the patient to complete the activity. If activity was not attempted, code reason: 7-Patient Refused. 9-Not Applicable-not attempted and the patient did not perform the activity before the current illness, exacerbation or injury. 10-Not Attempted due to Environmental Limitations-(lack of equipment, weather restraints, etc.). 88-Not Attempted due to Medical Conditions or Safety Concerns. Other Treatment Noted that pt has increased tone in R UE. Pt. participated in 15 minutes of AROM exercises with L UE and AAROM/PROM with R UE. L UE able to complete AROM in all planes. Pt. provided yellow therapy sponge for mill machinist strength in B hands and able to mill machinist with L, had some finger movement with R hand when completed simultan eously. R UE completed AAROM in all planes at the shoulder. PROM completed with R elbow joint to decrease tone. Pt. positioned in bed with RUE positioned in elbow extension. Call light within reach and in the room. All needs met. Education OT Patient Education: Correct positioning, Exercise program, Modified ADL techniques, Progress toward Goal/Update tx plan, Purpose of tx/functional activities, Reviewed precautions, Rehab process Teaching Recipient: Patient Teaching Methods: Demonstration, Discussion Response to Teaching: Verbalize Understanding, Return Demonstration, Reinforcement Needed OT Short Term Goals Short Term Goals Time Frame: May 17, 2020 Shower/bathe self: 2 Upper body dressin Lower body dressin OT Sales Systems Engineer Goals Sales Systems Engineer Goals Time Frame: May 31, 2020 Eating (QC): 4 Oral Hygiene (QC): 4 Toileting Hygiene (QC): 3 Shower/Bathe Self (QC): 3 Upper Body Dressing (QC): 4 Lower Body Dressing (QC): 3 On/Off Footwear (QC): 3 Additional Goals: 1-Demonstrate ADL Tasks, 2-Verbalize Understanding, 3- ImproveStrength/Rex 1=Demonstrate adherence to instructed precautions during ADL tasks. 2=Patient will verbalize/demonstrate understanding of assistive devices/modifications for ADL. 3=Patient will improve strength/tolerance for activity to enable patient to perform ADL's. OT Education/Plan Problem List/Assessment Assessment: Decreased Activ Tolerance, Decreased Safety Aware, Decreased UE Strength, Dependent Transfers, Impaired Bed Mobility, Impaired Cognition, Impaired Coordination, Impaired Funct Balance, Impaired I ADL's, Impaired Self- Care Skills, Restricted Funct UE ROM, Visual-Perceptual Deficit Discharge Recommendations Plan/Recommendations: Continue POC Therapy Discharge Recommendati: 24 Hour Supervision, Post Acute OT Treatment Plan/Plan of Care Treatment,Training & Education: Yes Patient would benefit from OT for education, treatment and training to promote independence in ADL's, mobility, safety and/or upper extremity function for ADL's. Plan of Care: ADL Retraining, Functional Mobility, Group Exercise/Act as Ind, UE Funct Exercise/Act, UE Neuromus Re-Ed/Coord, Visual/Perceptual Retrain Treatment Duration: May 31, 2020 Frequency: Modified Program (IRF) (01/05) Estimated Hrs Per Day: Other Agreement: Yes Rehab Potential: Fair Time/GCodes Start Time: 12:45 Stop Time: 13:00 Total Time Billed (hr/min): 15 Billed Treatment Time 1, EX (15 minutes) JENELLE RAMSEY May 17, 2020 13:18
--- NOTE | 2020-05-17 13:23 | Speech Therapy Daily Note ---
Speech Daily Progress Note Subjective Date Seen by Provider: May 17, 2020 Time Seen by Provider: 00:30 Patient was laying in bed following PT and OT. Patient's was present. Objective Patient completed expressive language activity with 75% given moderate cues. Assessment Assessment Current Status: Fair Progress Treatment Plan Continue Plan of Care Speech Short Term Goals Short Term Goals Short Term Goals 1) Patient will answer y/n questions related to herself with 80% or greater with minimal cues. 2) Patient will respond to questions related to items/pictures at 80% or greater with minimal cues. 3) Patient will tolerate least restrictive diet level without s/s of aspiration at 80% or greater. 4) Patient/caregiver will utilize compensatory strategies as trained at 90% or greater with minimal cues. Speech Detention Goals Hand Frame Surgical Elastic Knitter Goals Patient will improve communication necessary for safety and daily living tasks with minimal assist. Patient will maintain adequate nutrition/hydration via safe, effective swallow function. Speech-Plan Patient/Family Goals Patient/Family Goals: Patient's family plans for patient to return home with family and hired support for her daily needs. Treatment Plan Speech Therapy Treatment Plan: Continue Plan of Care Treatment Duration: May 17, 2020 Frequency: 5 times per week Estimated Hrs Per Day: .5 hour per day Rehab Potential: Fair Barriers to Learning: Patient was very sleepy requiring frequent prompts to stay awake to participate Pt/Family Agrees to Plan: Yes Safety Risks/Education Teaching Recipient: Patient Teaching Methods: Demonstration, Discussion Response to Teaching: Verbalize Understanding, Return Demonstration, Reinforcement Needed Education Topics Provided: Continued effective communication for wants/needs Time Speech Therapy Time In: 11:00 Speech Therapy Time Out: 11:30 Total Billed Time: 30 Billed Treatment Time 1PATIENCE BETHANIA ST May 17, 2020 13:23
[2020-05-17 17:17] VITALS: BP 145/70
[2020-05-17] MEDS: MELATONIN 3 MG TABLET PO PRN (20:34)
[2020-05-17] MEDS: APAP 325 MG/10.15 ML LIQ (TYLENOL) UDC PO PRN (20:35)
[2020-05-18 06:00] VITALS: BP 149/83
[2020-05-18] MEDS: RT-ALBUTEROL/IPRATROPIUM 3 ML (DUONEB) VIAL INH SCH ×3 (07:48→20:18)
--- NOTE | 2020-05-18 09:24 | Physical Therapy Daily Note ---
PT Daily Note-Current Subjective Patient in bed pre tx, agrees to PT, has no complaints of pain, she is speaking much better than when I last saw her. Appearance Patient in recliner post tx with nurse call, phone, tray, all needs met, legs elevated. Mental Status Patient Orientation: Person, Confused, Place Attachments: PEG Tube Transfers SCALE: Activities may be completed with or without assistive devices. 9-Wadjtskomc-cojaygu completes the activity by him/herself with no assistance from a helper. 5-Set-up or Clean-up Assistance-helper sets up or cleans up; patient completes activity. [place] assists only prior to or following the activity. 4-Supervision or Touching Assistance-helper provides verbal cues and/or touching/steadying and/or contact guard assistance as patient completes activity. Assistance may be provided throughout the activity or intermittently. 3-Partial/Moderate Assistance-helper does LESS THAN HALF the effort. [place] lifts, holds or supports trunk or limbs, but provides less than half the effort. 2-Substantial/Maximal Assistance-helper does MORE THAN HALF the effort. [place] lifts or holds trunk or limbs and provides more than half the effort. 9-Jsqrqnyqx-ydhqem does ALL the effort. Patient does none of the effort to complete the activity. Or, the assistance of 2 or more helpers is required for the patient to complete the activity. If activity was not attempted, code reason: 7-Patient Refused. 9-Not Applicable-not attempted and the patient did not perform the activity before the current illness, exacerbation or injury. 10-Not Attempted due to Environmental Limitations-(lack of equipment, weather restraints, etc.). 88-Not Attempted due to Medical Conditions or Safety Concerns. Roll Left & Right (QC): 2 Lying to Sitting/Side of Bed(Q: 2 Sit to Stand (QC): 2 Chair/Pxo-xt-Rqenl Xfer(QC): 2 supine to sit and then stand pivot transfer to recliner. Patient leans to the right side when sitting, cues for positioning and safety. Weight Bearing Right Lower Extremity: Right Weight Bearing/Tolerated Left Lower Extremity: Left Weight Bearing/Tolerated Exercises Seated Therapy Exercises: Ankle pumps, Long arc quads, Hip flexion Seated Reps: 20 Treatments bed mobility and transfers, LE exercise Assessment Current Status: Fair Progress Max assist to stand pivot, when sitting in a recliner she doesn't lean to the right side. PT Short Term Goals Short Term Goals Time Frame: May 25, 2020 Roll Left & Right: 3 Sit to lyin Lying to sitting on side of be: 3 Sit to stand: 3 Chair/ygc-eq-tittm transfer: 3 Toilet transfer: 3 Car transfer: 3 Walk 10 feet: 3 PT Detention Goals Lacquer Polisher Goals PT Detention Goals Time Frame: Jun 08, 2020 Roll Left & Right (QC): 4 Sit to Lying (QC): 4 Lying-Sitting on Side/Bed(QC): 4 Sit to Stand (QC): 4 Chair/Lul-ph-Mutxy Xfer(QC): 4 Toilet Transfer (QC): 4 Car Transfer (QC): 4 Does the Patient Walk: No and Walking Goal IS indicated Walk 10 feet (QC): 4 Walk 50ft with 2 Turns (QC): 4 Walk 150 ft (QC): 4 Walking 10ft on Uneven Surface: 4 1 Step (curb) (QC): 4 4 Steps (QC): 4 12 Steps (QC): 9 Picking up an Object (QC): 3 Does the Pt use WC or Scooter?: Yes Wheel 50 feet with 2 turns (QC: 4 Type: Manual Wheel 150 feet: 4 PT Plan Problem List Problem List: Activity Tolerance, Functional Strength, Safety, Balance, Gait, Transfer, Bed Mobility, ROM Treatment/Plan Treatment Plan: Continue Plan of Care Treatment Plan: Bed Mobility, Concurrent Therapy, Education, Functional Activity Rex, Functional Strength, Group Therapy, Gait, Safety, Therapeutic Exercise, Transfers Treatment Duration: Jun 08, 2020 Frequency: Modified Program (IRF) (01/05) Estimated Hrs Per Day: 1.5 hours per day Patient and/or Family Agrees t: Yes Safety Risks/Education Patient Education: Transfer Techniques, Correct Positioning, Safety Issues Teaching Recipient: Patient Teaching Methods: Demonstration, Discussion Response to Teaching: Reinforcement Needed Time/GCodes Time In: 821 Time Out: 832 Total Billed Treatment Time: 11 Total Billed Treatment 1 visit FA 11' XIAO COLEY PT May 18, 2020 09:23
[2020-05-18] MEDS: SENNA W/DOCUSATE (SENOKOT S) TABLET PO SCH ×2 (10:14→20:22)
[2020-05-18] MEDS: DOCUSATE SODIUM 100 MG (COLACE) CAP PO SCH ×2 (10:14→20:23)
[2020-05-18] MEDS: ASPIRIN 81 MG CHEW (CHILDREN'S ASA) PO SCH (10:14)
[2020-05-18] MEDS: APIXABAN 5 MG (ELIQUIS) TABLET PO SCH ×2 (10:14→20:22)
[2020-05-18] MEDS: MICONAZOLE 2% POWDER (DESENEX AF) 90 GM TOP SCH ×2 (10:15→20:27)
[2020-05-18] MEDS: polyethylene glycoL POWDER 17 GM (MIRALAX) PACK PO SCH ×2 (10:15→20:28)
--- NOTE | 2020-05-18 11:07 | PM&R Progress Note ---
Subjective HPI/CC On Admission Date Seen by Provider: May 18, 2020 Time Seen by Provider: 11:15 Subjective/Events-last exam Eating better Difficult getting spoon to mouth still BM+ Told me she wants to go home No pain reported Checked meds and labs Conferred with RN Reviewed therapy notes Review of Systems General: Fatigue, Malaise 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: Weakness Objective Exam Vital Signs Vital Signs Date Time Temp Pulse Resp B/P (MAP) Pulse Ox O2 Delivery O2 Flow Rate FiO2 05/18/20 14:53 92 Room Air 05/18/20 06:00 36.4 88 18 149/83 (105) 05/14/20 17:20 1.00 Capillary Refill : Less Than 3 Seconds General Appearance: No Apparent Distress, WD/WN, Chronically ill HEENT: PERRL/EOMI, Normal ENT Inspection, Pharynx Normal Neck: Full Range of Motion, Normal Inspection, Non Tender, Supple, Carotid Bruit Respiratory: Chest Non Tender, Lungs Clear, Normal Breath Sounds, No Accessory Muscle Use, No Respiratory Distress Cardiovascular: Regular Rate, Rhythm, No Edema, No Gallop, No JVD, No Murmur, Normal Peripheral Pulses Gastrointestinal: Normal Bowel Sounds, No Organomegaly, No Pulsatile Mass, Non Tender, Soft Back: Normal Inspection, No CVA Tenderness, No Vertebral Tenderness Extremity: Normal Capillary Refill, Normal Inspection, Normal Range of Motion, Non Tender, No Calf Tenderness, No Pedal Edema Neurologic/Psychiatric: Alert, Abnormal outlet manager II-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 FIM Transfers Therapy Code Descriptions/Definitions Functional [place] Measure: 0=Not Assessed/NA 4=Minimal Assistance 1=Total Assistance 5=Supervision or Setup 2=Maximal Assistance 6=Modified [place] 3=Moderate Assistance 7=Complete IndependenceSCALE: Activities may be completed with or without assistive devices. 4-Dvrxijllaw-vrwvzqa completes the activity by him/herself with no assistance from a helper. 5-Set-up or Clean-up Assistance-helper sets up or cleans up; patient completes activity. [place] assists only prior to or following the activity. 4-Supervision or Touching Assistance-helper provides verbal cues and/or t ouching/steadying and/or contact guard assistance as patient completes activity. Assistance may be provided throughout the activity or intermittently. 3-Partial/Moderate Assistance-helper does LESS THAN HALF the effort. [place] lifts, holds or supports trunk or limbs, but provides less than half the effort. 2-Substantial/Maximal Assistance-helper does MORE THAN HALF the effort. [place] lifts or holds trunk or limbs and provides more than half the effort. 1-Nqksgicyo-idhmrn does ALL the effort. Patient does none of the effort to complete the activity. Or, the assistance of 2 or more helpers is required for the patient to complete the activity. If activity was not attempted, code reason: 7-Patient Refused. 9-Not Applicable-not attempted and the patient did not perform the activity before the current illness, exacerbation or injury. 10-Not Attempted due to Environmental Limitations-(lack of equipment, weather restraints, etc.). 88-Not Attempted due to Medical Conditions or Safety Concerns. Roll Left to Right (QC): 2 Sit to Lying (QC): 2 Sit to Stand (QC): 2 Chair/Efo-ar-Qddxi Xfer(QC): 2 Car Transfer (QC): 88 Gait Training Does the Patient Walk?: No and Walking Goal NOT indicated Walk 10 feet (QC): 88 Walk 50 ft with 2 Turns(QC): 88 Walk 150 ft (QC): 88 Walking 10ft/uneven surface-QC: 88 Wheelchair Training Does the Pt Use a Wheelchair?: Yes Distance: 300' Wheel 50 ft with 2 turns (QC): 2 Wheel 150 ft (QC): 2 Type of Wheelchair: Manual Stair Training 1 Step (curb) (QC): 88 4 Steps (QC): 88 12 Steps (QC): 88 Balance Picking up an Object (QC): 88 ADL-Treatment Eating (QC): 2 (Max A) Oral Hygiene (QC): 1 Shower/Bathe Self (QC): 1 Upper Body Dressing (QC): 3 (Mod A) Lower Body Dressing (QC): 1 On/Off Footwear (QC): 3 (Mod A) Toileting Hygiene (QC): 1 Toilet Transfer (QC): 2 (Max A) Assessment/Plan Assessment and Plan Assess & Plan/Chief Complaint Assessment: 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 Lord regarding Arana catheter discontinuation Continue crushed pills Continue Clinimix Living will and palliative care consult 05/08/20: Reconsult Dr. Lord since she is not ready for palliative care Discontinued Catheter monitor for retention Bowels are a bit loose hold laxatives Peg tube will be required so will consult general surgery on that 05/09/20: PEG to placement per Dr. Chayo Scott today Continue therapies Prognosis poor ocean transportation intermediary considering catastrophic level of stroke 05/10/20: Arana cath DC and she is able to empty with some incontinence appreciate Dr Mckinney PEG today Will DC IVF once PEG functioning Monitor closely 05/11/20: PEG tube for nutrition and fluids DC Clinimix Duonebs to dry up upper airway secretions 05/12/20: Maintain PEG tube feedings and free water Continue to use swallowing and ST to work with her for that to become stronger 05/13/20: Lab reviewed Monitor BP Nebs TF tolerated and change to bolus feeds 05/14/20: Increase oral food intake Maintain tube feedings Continue aggressive therapy 05/15/20: Supportive care for groin rash Monitor residule tube feedings Bowels are moving well Unsure of disposition plan 05/16/20: Increase food intake Two feedings providing calories Bowels are moving well 05/17/20: Encourage oral nutrition Work on getting spoon to her mouth Bowels are moving well 05/18/20: Increase po nutrition Maintain TF for calories Nebs maintained (1) CVA (cerebral vascular accident) (2) EMPHYSEMA, UNSPECIFIED Status: Chronic (3) Denial about severity of illness (4) History of shingles (5) Uncontrolled hypertension Status: Acute (6) Aphasia (7) Debility Status: Acute (8) Hypoxia Status: Chronic (9) Dementia (10) Delirium (11) Memory loss (12) Paroxysmal atrial fibrillation Status: Chronic (13) Myopathy (14) Noncompliance with medication regimen Status: Chronic JEROME NEAL DO May 18, 2020 11:07
[2020-05-18 18:00] VITALS: BP 136/92
[2020-05-18 18:30] VITALS: BP 152/81
[2020-05-18] MEDS: ALPRAZolam 0.25 MG (XANAX) TAB PO PRN (20:22)
[2020-05-18] MEDS: MELATONIN 3 MG TABLET PO PRN (20:23)
[2020-05-19 06:00] VITALS: BP 158/90
--- NOTE | 2020-05-19 06:35 | PM&R Progress Note ---
Subjective HPI/CC On Admission Date Seen by Provider: May 19, 2020 Time Seen by Provider: 12:30 Subjective/Events-last exam Eating better but still with difficulty getting spoon to mouth Family visits cause a lot of anxiety for the patient Wants to go home and states it constantly BM+ No pain with swallowing No pain reported Checked meds and labs Conferred with RN Reviewed therapy notes Review of Systems General: Fatigue, Malaise 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: Weakness, Incoordination Objective Exam Vital Signs Vital Signs Date Time Temp Pulse Resp B/P (MAP) Pulse Ox O2 Delivery O2 Flow Rate FiO2 05/19/20 21:00 Room Air 05/19/20 20:37 98 05/19/20 17:46 29.6 81 20 130/64 (86) 05/14/20 17:20 1.00 Capillary Refill : Less Than 3 Seconds General Appearance: No Apparent Distress, WD/WN, Chronically ill HEENT: PERRL/EOMI, Normal ENT Inspection, Pharynx Normal Neck: Full Range of Motion, Normal Inspection, Non Tender, Supple, Carotid Bruit Respiratory: Chest Non Tender, Lungs Clear, Normal Breath Sounds, No Accessory Muscle Use, No Respiratory Distress Cardiovascular: Regular Rate, Rhythm, No Edema, No Gallop, No JVD, No Murmur, Normal Peripheral Pulses Gastrointestinal: Normal Bowel Sounds, No Organomegaly, No Pulsatile Mass, Non Tender, Soft Back: Normal Inspection, No CVA Tenderness, No Vertebral Tenderness Extremity: Normal Capillary Refill, Normal Inspection, Normal Range of Motion, Non Tender, No Calf Tenderness, No Pedal Edema Neurologic/Psychiatric: Alert, 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 FIM Transfers Therapy Code Descriptions/Definitions Functional [place] Measure: 0=Not Assessed/NA 4=Minimal Assistance 1=Total Assistance 5=Supervision or Setup 2=Maximal Assistance 6=Modified [place] 3=Moderate Assistance 7=Complete IndependenceSCALE: Activities may be completed with or without assistive devices. 8-Lpgcnmqkdm-skppyms completes the activity by him/herself with no assistance from a helper. 5-Set-up or Clean-up Assistance-helper sets up or cleans up; patient completes activity. [place] assists only prior to or following the activity. 4-Supervision or Touching Assistance-helper provides verbal cues and/or touching/steadying and/or contact guard assistance as patient completes activity. Assistance may be provided throughout the activity or intermittently. 3-Partial/Moderate Assistance-helper does LESS THAN HALF the effort. [place] lifts, holds or supports trunk or limbs, but provides less than half the effort. 2-Substantial/Maximal Assistance-helper does MORE THAN HALF the effort. [place] lifts or holds trunk or limbs and provides more than half the effort. 4-Voiasnrqy-yzwrrf does ALL the effort. Patient does none of the effort to complete the activity. Or, the assistance of 2 or more helpers is required for the patient to complete the activity. If activity was not attempted, code reason: 7-Patient Refused. 9-Not Applicable-not attempted and the patient did not perform the activity before the current illness, exacerbation or injury. 10-Not Attempted due to Environmental Limitations-(lack of equipment, weather restraints, etc.). 88-Not Attempted due to Medical Conditions or Safety Concerns. Roll Left to Right (QC): 2 Sit to Lying (QC): 2 Sit to Stand (QC): 2 Chair/Fgu-xf-Fmomi Xfer(QC): 2 Car Transfer (QC): 88 Gait Training Does the Patient Walk?: No and Walking Goal NOT indicated Walk 10 feet (QC): 88 Walk 50 ft with 2 Turns(QC): 88 Walk 150 ft (QC): 88 Walking 10ft/uneven surface-QC: 88 Wheelchair Training Does the Pt Use a Wheelchair?: Yes Distance: 300' Wheel 50 ft with 2 turns (QC): 2 Wheel 150 ft (QC): 2 Type of Wheelchair: Manual Stair Training 1 Step (curb) (QC): 88 4 Steps (QC): 88 12 Steps (QC): 88 Balance Picking up an Object (QC): 88 ADL-Treatment Eating (QC): 2 (Max A) Oral Hygiene (QC): 1 Shower/Bathe Self (QC): 1 Upper Body Dressing (QC): 3 (Mod A) Lower Body Dressing (QC): 1 On/Off Footwear (QC): 3 (Mod A) Toileting Hygiene (QC): 1 Toilet Transfer (QC): 2 (Max A) Assessment/Plan Assessment and Plan Assess & Plan/Chief Complaint Assessment: 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 Lord regarding Arana catheter discontinuation Continue crushed pills Continue Clinimix Living will and palliative care consult 05/08/20: Reconsult Dr. Lord since she is not ready for palliative care Discontinued Catheter monitor for retention Bowels are a bit loose hold laxatives Peg tube will be required so will consult general surgery on that 05/09/20: PEG to placement per Dr. 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 05/10/20: Arana cath DC and she is able to empty with some incontinence appreciate Dr Mckinney PEG today Will DC IVF once PEG functioning Monitor closely 05/11/20: PEG tube for nutrition and fluids DC Clinimix Duonebs to dry up upper airway secretions 05/12/20: Maintain PEG tube feedings and free water Continue to use swallowing and ST to work with her for that to become stronger 05/13/20: Lab reviewed Monitor BP Nebs TF tolerated and change to bolus feeds 05/14/20: Increase oral food intake Maintain tube feedings Continue aggressive therapy 05/15/20: Supportive care for groin rash Monitor residule tube feedings Bowels are moving well Unsure of disposition plan 05/16/20: Increase food intake Two feedings providing calories Bowels are moving well 05/17/20: Encourage oral nutrition Work on getting spoon to her mouth Bowels are moving well 05/18/20: Increase po nutrition Maintain TF for calories Nebs maintained 05/19/20: Monitor dysphagia TF maintained No more skilled days left so unsure of disposition (1) CVA (cerebral vascular accident) (2) EMPHYSEMA, UNSPECIFIED Status: Chronic (3) Denial about severity of illness (4) History of shingles (5) Uncontrolled hypertension Status: Acute (6) Aphasia (7) Debility Status: Acute (8) Hypoxia Status: Chronic (9) Dementia (10) Delirium (11) Memory loss (12) Paroxysmal atrial fibrillation Status: Chronic (13) Myopathy (14) Noncompliance with medication regimen Status: Chronic JEROME NEAL DO May 19, 2020 06:35
[2020-05-19] MEDS: RT-ALBUTEROL/IPRATROPIUM 3 ML (DUONEB) VIAL INH SCH ×3 (07:28→20:37)
[2020-05-19] MEDS: ASPIRIN 81 MG CHEW (CHILDREN'S ASA) PO SCH (09:56)
[2020-05-19] MEDS: DOCUSATE SODIUM 100 MG (COLACE) CAP PO SCH ×2 (09:56→20:07)
[2020-05-19] MEDS: MICONAZOLE 2% POWDER (DESENEX AF) 90 GM TOP SCH ×2 (09:57→20:08)
[2020-05-19] MEDS: SENNA W/DOCUSATE (SENOKOT S) TABLET PO SCH ×2 (09:57→20:07)
[2020-05-19] MEDS: polyethylene glycoL POWDER 17 GM (MIRALAX) PACK PO SCH ×2 (09:57→20:07)
[2020-05-19] MEDS: APIXABAN 5 MG (ELIQUIS) TABLET PO SCH ×2 (09:57→20:07)
--- NOTE | 2020-05-19 12:30 | NUR ---
Patient's present, eating lunch with patient. Patient voices her previous caregiver, Janet, was a very good care-taker/helper when she was home last time. Voices Janet will be up on Wednesday or Wednesday to visit and ask questions regarding care.
--- NOTE | 2020-05-19 15:00 | NUR ---
Patient requests chocolate. education given to spouse regarding attempting only soft chocolate, such as rachana's bar only; no hard candy, no nuts, no cookie parts. purchases m&m's to given. education given, spouse calls daughter for candy bars, as vending machine does not have plain rachana's bar available. rachana bar brought up, consumes half chocolate bar in small bites with small sips of nectar-thickened coffee. patient voices, "that's enough, use the rest for dessert at supper."
[2020-05-19 17:46] VITALS: BP 130/64
[2020-05-19] MEDS: MELATONIN 3 MG TABLET PO PRN (20:07)
[2020-05-20 05:16] VITALS: BP 155/79
--- NOTE | 2020-05-20 06:00 | PM&R Progress Note ---
Subjective HPI/CC On Admission Date Seen by Provider: May 20, 2020 Time Seen by Provider: 10:00 Subjective/Events-last exam Eating better but still with difficulty getting spoon to mouth which is a very real challenge Family visits cause a lot of anxiety for the patient this weekend Wants to go home and states it constantly BM+ No pain with swallowing No pain reported Checked meds and labs Conferred with RN Reviewed therapy notes Review of Systems General: Fatigue, Malaise 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: Weakness Objective Exam Vital Signs Vital Signs Date Time Temp Pulse Resp B/P (MAP) Pulse Ox O2 Delivery O2 Flow Rate FiO2 05/20/20 20:31 98 Room Air 05/20/20 09:01 36.0 74 20 132/87 (102) 05/14/20 17:20 1.00 Capillary Refill : Less Than 3 Seconds General Appearance: No Apparent Distress, WD/WN, Chronically ill HEENT: PERRL/EOMI, Normal ENT Inspection, Pharynx Normal Neck: Full Range of Motion, Normal Inspection, Non Tender, Supple, Carotid Bruit Respiratory: Chest Non Tender, Lungs Clear, Normal Breath Sounds, No Accessory Muscle Use, No Respiratory Distress Cardiovascular: Regular Rate, Rhythm, No Edema, No Gallop, No JVD, No Murmur, Normal Peripheral Pulses Gastrointestinal: Normal Bowel Sounds, No Organomegaly, No Pulsatile Mass, Non Tender, Soft Back: Normal Inspection, No CVA Tenderness, No Vertebral Tenderness Extremity: Normal Capillary Refill, Normal Inspection, Normal Range of Motion, Non Tender, No Calf Tenderness, No Pedal Edema Neurologic/Psychiatric: Alert, 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 FIM Transfers Therapy Code Descriptions/Definitions Functional [place] Measure: 0=Not Assessed/NA 4=Minimal Assistance 1=Total Assistance 5=Supervision or Setup 2=Maximal Assistance 6=Modified [place] 3=Moderate Assistance 7=Complete IndependenceSCALE: Activities may be completed with or without assistive devices. 2-Wzecoylpwx-yiqafxl completes the activity by him/herself with no assistance from a helper. 5-Set-up or Clean-up Assistance-helper sets up or cleans up; patient completes activity. [place] assists only prior to or following the activity. 4-Supervision or Touching Assistance-helper provides verbal cues and/or touching/steadying and/or contact guard assistance as patient completes activity. Assistance may be provided throughout the activity or intermittently. 3-Partial/Moderate Assistance-helper does LESS THAN HALF the effort. [place] lifts, holds or supports trunk or limbs, but provides less than half the effort. 2-Substantial/Maximal Assistance-helper does MORE THAN HALF the effort. [place] lifts or holds trunk or limbs and provides more than half the effort. 3-Hwrxrivit-lcrpha does ALL the effort. Patient does none of the effort to complete the activity. Or, the assistance of 2 or more helpers is required for the patient to complete the activity. If activity was not attempted, code reason: 7-Patient Refused. 9-Not Applicable-not attempted and the patient did not perform the activity before the current illness, exacerbation or injury. 10-Not Attempted due to Environmental Limitations-(lack of equipment, weather restraints, etc.). 88-Not Attempted due to Medical Conditions or Safety Concerns. Roll Left to Right (QC): 2 Sit to Lying (QC): 2 Sit to Stand (QC): 2 Chair/Alu-je-Zfnuk Xfer(QC): 2 Car Transfer (QC): 88 Gait Training Does the Patient Walk?: No and Walking Goal NOT indicated Walk 10 feet (QC): 88 Walk 50 ft with 2 Turns(QC): 88 Walk 150 ft (QC): 88 Walking 10ft/uneven surface-QC: 88 Wheelchair Training Does the Pt Use a Wheelchair?: Yes Distance: 300' Wheel 50 ft with 2 turns (QC): 2 Wheel 150 ft (QC): 2 Type of Wheelchair: Manual Stair Training 1 Step (curb) (QC): 88 4 Steps (QC): 88 12 Steps (QC): 88 Balance Picking up an Object (QC): 88 ADL-Treatment Eating (QC): 2 (Max A) Oral Hygiene (QC): 1 Shower/Bathe Self (QC): 1 Upper Body Dressing (QC): 3 (Mod A) Lower Body Dressing (QC): 1 On/Off Footwear (QC): 3 (Mod A) Toileting Hygiene (QC): 1 Toilet Transfer (QC): 2 (Max A) Assessment/Plan Assessment and Plan Assess & Plan/Chief Complaint Assessment: 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 Lord regarding Arana catheter discontinuation Continue crushed pills Continue Clinimix Living will and palliative care consult 05/08/20: Reconsult Dr. Lord since she is not ready for palliative care Discontinued Catheter monitor for retention Bowels are a bit loose hold laxatives Peg tube will be required so will consult general surgery on that 05/09/20: PEG to placement per Dr. 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 05/10/20: Arnaa cath DC and she is able to empty with some incontinence appreciate Dr Mckinney PEG today Will DC IVF once PEG functioning Monitor closely 05/11/20: PEG tube for nutrition and fluids DC Clinimix Duonebs to dry up upper airway secretions 05/12/20: Maintain PEG tube feedings and free water Continue to use swallowing and ST to work with her for that to become stronger 05/13/20: Lab reviewed Monitor BP Nebs TF tolerated and change to bolus feeds 05/14/20: Increase oral food intake Maintain tube feedings Continue aggressive therapy 05/15/20: Supportive care for groin rash Monitor residule tube feedings Bowels are moving well Unsure of disposition plan 05/16/20: Increase food intake Two feedings providing calories Bowels are moving well 05/17/20: Encourage oral nutrition Work on getting spoon to her mouth Bowels are moving well 05/18/20: Increase po nutrition Maintain TF for calories Nebs maintained 05/19/20: Monitor dysphagia TF maintained No more skilled days left so unsure of disposition 05/20/20: Labs reviewed Bowels moved yesterday Aphasia continues Wants to go home desperately (1) CVA (cerebral vascular accident) (2) EMPHYSEMA, UNSPECIFIED Status: Chronic (3) Denial about severity of illness (4) History of shingles (5) Uncontrolled hypertension Status: Acute (6) Aphasia (7) Debility Status: Acute (8) Hypoxia Status: Chronic (9) Dementia (10) Delirium (11) Memory loss (12) Paroxysmal atrial fibrillation Status: Chronic (13) Myopathy (14) Noncompliance with medication regimen Status: Chronic JEROME NEAL DO May 20, 2020 06:00
[2020-05-20 06:18] LABS: BASOPHILS % (AUTO) 0 % (0-10); EOSINOPHILS # (AUTO) 0.5 10^3/uL (0.0-0.3); EOSINOPHILS % (AUTO) 5 % (0-10); HEMATOCRIT 42 % (35-52); HEMOGLOBIN 13.7 G/DL (11.5-16.0); LYMPHOCYTES # (AUTO) 1.7 X 10^3 (1.0-4.0); LYMPHOCYTES % (AUTO) 17 % (12-44); MEAN CORPUSCULAR HEMOGLOBIN 30 PG (25-34); MEAN CORPUSCULAR HGB CONC 33 G/DL (32-36); MEAN CORPUSCULAR VOLUME 91 FL (80-99); MEAN PLATELET VOLUME 11.6 FL (7.4-10.4); MONOCYTES # (AUTO) 0.7 X 10^3 (0.0-1.0); MONOCYTES % (AUTO) 7 % (0-12); NEUTROPHILS # (AUTO) 6.9 X 10^3 (1.8-7.8); NEUTROPHILS % (AUTO) 70 % (42-75); PLATELET COUNT 366 10^3/uL (130-400); RED CELL DISTRIBUTION WIDTH 13.6 % (10.0-14.5); WHITE BLOOD COUNT 9.9 10^3/uL (4.3-11.0)
[2020-05-20 06:25] LABS: ALBUMIN 3.3 GM/DL (3.2-4.5)
[2020-05-20 06:26] LABS: CHLORIDE 105 MMOL/L (98-107); POTASSIUM 3.7 MMOL/L (3.6-5.0); SODIUM 143 MMOL/L (135-145)
[2020-05-20 06:27] LABS: CALCIUM 9.6 MG/DL (8.5-10.1)
[2020-05-20 06:28] LABS: GLUCOSE 104 MG/DL (70-105); TOTAL PROTEIN 6.8 GM/DL (6.4-8.2)
[2020-05-20 06:29] LABS: CARBON DIOXIDE 26 MMOL/L (21-32)
[2020-05-20 06:30] LABS: BILIRUBIN,TOTAL 0.5 MG/DL (0.1-1.0)
[2020-05-20 06:31] LABS: ALKALINE PHOSPHATASE 180 U/L (40-136)
[2020-05-20 06:32] LABS: GFR ESTIMATED > 60
[2020-05-20 06:33] LABS: BUN/CREATININE RATIO 21
[2020-05-20 06:35] LABS: ALANINE AMINOTRANSFERASE 52 U/L (0-55)
[2020-05-20] MEDS: RT-ALBUTEROL/IPRATROPIUM 3 ML (DUONEB) VIAL INH SCH ×3 (08:34→20:31)
[2020-05-20 09:01] VITALS: BP 132/87
[2020-05-20] MEDS: ASPIRIN 81 MG CHEW (CHILDREN'S ASA) PO SCH (10:20)
[2020-05-20] MEDS: APIXABAN 5 MG (ELIQUIS) TABLET PO SCH ×2 (10:20→21:32)
[2020-05-20] MEDS: SENNA W/DOCUSATE (SENOKOT S) TABLET PO SCH ×2 (10:20→21:32)
[2020-05-20] MEDS: DOCUSATE SODIUM 100 MG (COLACE) CAP PO SCH ×2 (10:21→21:35)
[2020-05-20] MEDS: MICONAZOLE 2% POWDER (DESENEX AF) 90 GM TOP PRN ×3 (10:22→11:21)
[2020-05-20] MEDS: polyethylene glycoL POWDER 17 GM (MIRALAX) PACK PO SCH ×2 (10:23→21:35)
--- NOTE | 2020-05-20 11:07 | Physical Therapy Daily Note ---
PT Daily Note-Current Subjective Patient in bed pre tx, very lethargic, doesn't seem to be able to speak, will be co-treating with OT for part of tx, due to poor patient mobility, strength, endurance, hemiparesis, the need to coordinate UE and LE during activity, poor sitting and standing balance. Eventually patient woke up more and was able to speak. Appearance Patient in therapy gym post tx with OT to finish up. Mental Status Patient Orientation: Person, Confused Transfers SCALE: Activities may be completed with or without assistive devices. 5-Tjwngfosfg-lrksecm completes the activity by him/herself with no assistance from a helper. 5-Set-up or Clean-up Assistance-helper sets up or cleans up; patient completes activity. [place] assists only prior to or following the activity. 4-Supervision or Touching Assistance-helper provides verbal cues and/or touching/steadying and/or contact guard assistance as patient completes activity. Assistance may be provided throughout the activity or intermittently. 3-Partial/Moderate Assistance-helper does LESS THAN HALF the effort. [place] lifts, holds or supports trunk or limbs, but provides less than half the effort. 2-Substantial/Maximal Assistance-helper does MORE THAN HALF the effort. [place] lifts or holds trunk or limbs and provides more than half the effort. 3-Pbefrqoue-ypdtgk does ALL the effort. Patient does none of the effort to complete the activity. Or, the assistance of 2 or more helpers is required for the patient to complete the activity. If activity was not attempted, code reason: 7-Patient Refused. 9-Not Applicable-not attempted and the patient did not perform the activity before the current illness, exacerbation or injury. 10-Not Attempted due to Environmental Limitations-(lack of equipment, weather restraints, etc.). 88-Not Attempted due to Medical Conditions or Safety Concerns. Roll Left & Right (QC): 2 Lying to Sitting/Side of Bed(Q: 2 Sit to Stand (QC): 2 Chair/Pzp-ui-Bxyib Xfer(QC): 2 Supine to sit, stand pivot transfer to , taken to therapy gym, stand x3 in parallel bars, standing in standing frame for 15 min while performing OT activity, patient needs assist with positioning and weight shifting while in s tanding frame Weight Bearing Right Lower Extremity: Right Weight Bearing/Tolerated Left Lower Extremity: Left Weight Bearing/Tolerated Treatments PT performed bed mobility and transfers, sit to stand, standing frame, balance and positioning, OT performed UE activity, assist with standing frame and transfers. Assessment Current Status: Poor Progress no change in mobility PT Short Term Goals Short Term Goals Time Frame: May 25, 2020 Roll Left & Right: 3 Sit to lyin Lying to sitting on side of be: 3 Sit to stand: 3 Chair/fdi-vz-tkoup transfer: 3 Toilet transfer: 3 Car transfer: 3 Walk 10 feet: 3 PT Account Manager Relief Goals Account Manager Relief Goals PT Chcf Goals Time Frame: Jun 08, 2020 Roll Left & Right (QC): 4 Sit to Lying (QC): 4 Lying-Sitting on Side/Bed(QC): 4 Sit to Stand (QC): 4 Chair/Jco-ai-Wuwjj Xfer(QC): 4 Toilet Transfer (QC): 4 Car Transfer (QC): 4 Does the Patient Walk: No and Walking Goal IS indicated Walk 10 feet (QC): 4 Walk 50ft with 2 Turns (QC): 4 Walk 150 ft (QC): 4 Walking 10ft on Uneven Surface: 4 1 Step (curb) (QC): 4 4 Steps (QC): 4 12 Steps (QC): 9 Picking up an Object (QC): 3 Does the Pt use WC or Scooter?: Yes Wheel 50 feet with 2 turns (QC: 4 Type: Manual Wheel 150 feet: 4 PT Plan Problem List Problem List: Activity Tolerance, Functional Strength, Safety, Balance, Gait, Transfer, Bed Mobility, ROM Treatment/Plan Treatment Plan: Continue Plan of Care Treatment Plan: Bed Mobility, Concurrent Therapy, Education, Functional Activity Rex, Functional Strength, Group Therapy, Gait, Safety, Therapeutic Exercise, Transfers Treatment Duration: Jun 08, 2020 Frequency: Modified Program (IRF) (01/05) Estimated Hrs Per Day: 1.5 hours per day Patient and/or Family Agrees t: Yes Safety Risks/Education Patient Education: Transfer Techniques, Correct Positioning, Safety Issues Teaching Recipient: Patient Teaching Methods: Demonstration, Discussion Response to Teaching: Reinforcement Needed Time/GCodes Time In: 0845 Time Out: 929 Total Billed Treatment Time: 45 Total Billed Treatment 1 visit FA 45' co-treat with OT for 30' XIAO COLEY PT May 20, 2020 11:07
[2020-05-20] MEDS: MICONAZOLE 2% POWDER (DESENEX AF) 90 GM TOP SCH ×2 (11:22→21:35)
--- NOTE | 2020-05-20 11:55 | Occupational Ther Daily Note ---
OT Current Status-Daily Note Subjective Pt. in gym with PT when OT entered room. No c/o pain. Pt reported that she did not sleep well last night. Mental Status/Objective Patient Orientation: Person Attachments: Central Line, PEG Tube ADL-Treatment Therapy Code Descriptions/Definitions Functional [place] Measure: 0=Not Assessed/NA 4=Minimal Assistance 1=Total Assistance 5=Supervision or Setup 2=Maximal Assistance 6=Modified [place] 3=Moderate Assistance 7=Complete IndependenceSCALE: Activities may be completed with or without assistive devices. 6-Hulcvdulce-uswoqfd completes the activity by him/herself with no assistance from a helper. 5-Set-up or Clean-up Assistance-helper sets up or cleans up; patient completes activity. [place] assists only prior to or following the activity. 4-Supervision or Touching Assistance-helper provides verbal cues and/or touching/steadying and/or contact guard assistance as patient completes act ivity. Assistance may be provided throughout the activity or intermittently. 3-Partial/Moderate Assistance-helper does LESS THAN HALF the effort. [place] lifts, holds or supports trunk or limbs, but provides less than half the effort. 2-Substantial/Maximal Assistance-helper does MORE THAN HALF the effort. [place] lifts or holds trunk or limbs and provides more than half the effort. 8-Ozhlklknu-foudqp does ALL the effort. Patient does none of the effort to complete the activity. Or, the assistance of 2 or more helpers is required for the patient to complete the activity. If activity was not attempted, code reason: 7-Patient Refused. 9-Not Applicable-not attempted and the patient did not perform the activity before the current illness, exacerbation or injury. 10-Not Attempted due to Environmental Limitations-(lack of equipment, weather restraints, etc.). 88-Not Attempted due to Medical Conditions or Safety Concerns. Eating (QC): 4 (CGA) Shower/Bathe Self (QC): 2 (Max A) On/Off Footwear: 1 Toileting Hygiene (QC): 1 Toilet Transfer (QC): 1 Partial Co-treat with PT due to need of 2 skilled clinicians. PT focusing on mobility and transfers. OT facilitating ADL skills, UE placement, and functional transfers. Pt. positioned in standing frame. She was able to tolerate 15 minutes standing in standing frame to promote weight bearing and upright posture. While standing, pt participated in fine motor activity working on grasp, hand eye coordination, and finger strength. Pt. easily distracted during this task. Once back in w/c, pt. encouraged and given extra time to self-propel in w/c toward room. Pt.'s caregiver entered gym. Pt. returned to room. Once in room, pt. given warm wash cloth to clean face and completed with min A from hired caregiver. Pt. then provided bath pack and VC to initiate washing chest. Pt required Max A to bathe and dry. Encouragement to doff dirty socks and don clean socks provided, along with extra time, and verbal cues for sequencing. Pt. refused to change socks, stating that she was "very tired". When asked if she wanted some of her full breakfast tray, pt. declined, but requested orange juice. CGA provided to bring cup to mouth. Pt. able to take several sips of thickened orange juice without any coughing after. Pt transferred to bed with dependent assist. Sit- supine transfer mod A. Pt. then requested to use restroom and was transferred to the [facility] with assist x2, one to stand and one to doff brief. Noted pt. had already been incontinent in brief. Pt. returned to bed with dependent assist. Noted that pt. very physically fatigued by the end of session and asleep before positioned in bed. All needs met. Education OT Patient Education: Correct positioning, Energy conservation, Instructions to caregiver, Modified ADL techniques, Progress toward Goal/Update tx plan, Purpose of tx/functional activities, Reviewed precautions, Rehab process Teaching Recipient: Patient, Friend Teaching Methods: Demonstration, Discussion Response to Teaching: Verbalize Understanding, Return Demonstration, Reinforcement Needed OT Short Term Goals Short Term Goals Time Frame: May 17, 2020 Shower/bathe self: 2 Upper body dressin Lower body dressin OT Usp Goals Coal Inspector Goals Time Frame: May 31, 2020 Eating (QC): 4 Oral Hygiene (QC): 4 Toileting Hygiene (QC): 3 Shower/Bathe Self (QC): 3 Upper Body Dressing (QC): 4 Lower Body Dressing (QC): 3 On/Off Footwear (QC): 3 Additional Goals: 1-Demonstrate ADL Tasks, 2-Verbalize Understanding, 3- ImproveStrength/Rex 1=Demonstrate adherence to instructed precautions during ADL tasks. 2=Patient will verbalize/demonstrate understanding of assistive devices/modifications for ADL. 3=Patient will improve strength/tolerance for activity to enable patient to perform ADL's. OT Education/Plan Problem List/Assessment Assessment: Decreased Activ Tolerance, Decreased Safety Aware, Decreased UE Strength, Dependent Transfers, Impaired Bed Mobility, Impaired Cognition, Impaired Coordination, Impaired Funct Balance, Impaired I ADL's, Impaired Self- Care Skills, Restricted Funct UE ROM Discharge Recommendations Plan/Recommendations: Continue POC Therapy Discharge Recommendati: 24 Hour Supervision, Post Acute OT Treatment Plan/Plan of Care Treatment,Training & Education: Yes Patient would benefit from OT for education, treatment and training to promote independence in ADL's, mobility, safety and/or upper extremity function for AD L's. Plan of Care: ADL Retraining, Functional Mobility, Group Exercise/Act as Ind, UE Funct Exercise/Act, UE Neuromus Re-Ed/Coord, Visual/Perceptual Retrain Treatment Duration: May 31, 2020 Frequency: Modified Program (IRF) (01/05) Estimated Hrs Per Day: Other Agreement: Yes Rehab Potential: Fair Time/GCodes Start Time: 09:00 Stop Time: 10:15 Total Time Billed (hr/min): 75 Billed Treatment Time 1, FA 2 (30 minutes), ADL 3 (45 minutes) [id number] co-treat with PT. See above note for designated role [id number] individual treatment RILEY DUBON OT May 20, 2020 11:55
--- NOTE | 2020-05-20 13:26 | Physical Therapy Daily Note ---
PT Daily Note-Current Subjective Patient in bed pre tx, lethargic again, will perform some LE exercises but will not speak or open eyes. Appearance Patient in bed post tx with nurse call, phone, tray, all needs met, visitor in room. Mental Status Patient Orientation: Unable to Assess Attachments: Arana Catheter Transfers SCALE: Activities may be completed with or without assistive devices. 8-Jfotxfcoik-zremxqg completes the activity by him/herself with no assistance from a helper. 5-Set-up or Clean-up Assistance-helper sets up or cleans up; patient completes activity. [place] assists only prior to or following the activity. 4-Supervision or Touching Assistance-helper provides verbal cues and/or touching/steadying and/or contact guard assistance as patient completes activity. Assistance may be provided throughout the activity or intermittently. 3-Partial/Moderate Assistance-helper does LESS THAN HALF the effort. [place] lifts, holds or supports trunk or limbs, but provides less than half the effort. 2-Substantial/Maximal Assistance-helper does MORE THAN HALF the effort. [place] lifts or holds trunk or limbs and provides more than half the effort. 3-Fjfjepbjn-qenucr does ALL the effort. Patient does none of the effort to complete the activity. Or, the assistance of 2 or more helpers is required for the patient to complete the activity. If activity was not attempted, code reason: 7-Patient Refused. 9-Not Applicable-not attempted and the patient did not perform the activity before the current illness, exacerbation or injury. 10-Not Attempted due to Environmental Limitations-(lack of equipment, weather restraints, etc.). 88-Not Attempted due to Medical Conditions or Safety Concerns. Weight Bearing Right Lower Extremity: Right Weight Bearing/Tolerated Left Lower Extremity: Left Weight Bearing/Tolerated Exercises Supine Ex: Ankle pumps, Quad Set, Heel Slides, Short Arc Quads, Straight leg raise, Hip abd/add Supine Reps: 20 (BLE AAROM) BLE stretching in all planes Treatments BLE stretching and exercises Assessment Current Status: Poor Progress no change in mobility, very lethargic PT Short Term Goals Short Term Goals Time Frame: May 25, 2020 Roll Left & Right: 3 Sit to lyin Lying to sitting on side of be: 3 Sit to stand: 3 Chair/mvd-wp-kqgxw transfer: 3 Toilet transfer: 3 Car transfer: 3 Walk 10 feet: 3 PT Senior Sql Server Developer Goals Senior Sql Server Developer Goals PT Senior Sql Server Developer Goals Time Frame: Jun 08, 2020 Roll Left & Right (QC): 4 Sit to Lying (QC): 4 Lying-Sitting on Side/Bed(QC): 4 Sit to Stand (QC): 4 Chair/Pig-tl-Ehrkl Xfer(QC): 4 Toilet Transfer (QC): 4 Car Transfer (QC): 4 Does the Patient Walk: No and Walking Goal IS indicated Walk 10 feet (QC): 4 Walk 50ft with 2 Turns (QC): 4 Walk 150 ft (QC): 4 Walking 10ft on Uneven Surface: 4 1 Step (curb) (QC): 4 4 Steps (QC): 4 12 Steps (QC): 9 Picking up an Object (QC): 3 Does the Pt use WC or Scooter?: Yes Wheel 50 feet with 2 turns (QC: 4 Type: Manual Wheel 150 feet: 4 PT Plan Problem List Problem List: Activity Tolerance, Functional Strength, Safety, Balance, Gait, Transfer, Bed Mobility, ROM Treatment/Plan Treatment Plan: Continue Plan of Care Treatment Plan: Bed Mobility, Concurrent Therapy, Education, Functional Activity Rex, Functional Strength, Group Therapy, Gait, Safety, Therapeutic Exercise, Transfers Treatment Duration: Jun 08, 2020 Frequency: Modified Program (IRF) (01/05) Estimated Hrs Per Day: 1.5 hours per day Patient and/or Family Agrees t: Yes Safety Risks/Education Patient Education: Correct Positioning, Safety Issues Teaching Recipient: Patient Teaching Methods: Demonstration, Discussion Response to Teaching: Reinforcement Needed Time/GCodes Time In: 1300 Time Out: 1330 Total Billed Treatment Time: 30 Total Billed Treatment 1 visit EX 30' XIAO COLEY PT May 20, 2020 13:26
--- NOTE | 2020-05-20 14:59 | Progress Note ---
LAINEY ESTEVEZ MED STUDENT 05/20/20 1459: Progress Note Review of therapy notes 74 yo F presents after cerebrovascular accident. pt presents with aphasia and R- sided weakness. patient history includes paroxysmal atrial fibrillation, delirium, dementia, copd and pneumonia. pt is currently on peg tube feeds with supplemental po thickened liquids. pt has had coughing with the thickened liquids. pt presents with difficulty with raising a spoon to her mouth. pt was quiet, but stated that she wants to go home. Pt previous caregiver is present with her today. Previous level of function pt showered with assistance pt ate on her own pt bladder and bowel functions were normal, needed minimal assistance using restroom pt lives with Goals patient was unable to communicate any current goals for care. TERESE VERDE DO 05/20/202052: Supervisory-Addendum Brief Verification & Attestation Participated in pt care: history, MDM, physical Personally performed: exam, history, MDM, supervision of care Care discussed with: Medical Student Procedures: n/a Results interpretation: Verified all documentation Verification and Attestation of Medical Student E/M Service A medical student performed and documented this service in my presence. I reviewed and verified all information documented by the medical student and made modifications to such information, when appropriate. I personally performed the physical exam and medical decision making. Terese Verde, May 20, 2020,20:53 LAINEY ESTEVEZ MED STUDENT May 20, 2020 14:59 TERESE VERDE DO May 20, 2020 20:53
--- NOTE | 2020-05-20 15:14 | NUR ---
"RD ASSESSMENT PMHx: RA; COPD; CAD; HTN; HLP; GERD; stroke (04/2020) PT INTERACTION: Pt was awake and pleasant during nutrition follow-up. Pt states she has been eating okay since last assessment. Note avg PO intake 50% x3d, per chart review. Note pt has been receiving bolus feedings through PEG tube, per chart review. Pt receives 1 can Jevity 1.5 x5 can/day, with flushes of 75ml H2O before and after bolus feed. Provides 1775 kcal (25 kcal/kg); 76 g Pro (1.1 g Pro/kg); and 1650ml free water (with flushes). Pt states no issues with nausea, vomiting, constipation, or diarrhea since last assessment. Note last BM was 05/19, and pt currently on bowel regimen of colace BID; senna BID; and miralax BID, per chart review. ABNORMAL NUTRITION-RELATED LAB VALUES LOW: HIGH: alkphos 180 Est. kcal needs: 1750 kcal | 25 kcal/kg Est. Pro needs: 70 g Pro | 1.0 g Pro/kg PES STATEMENT: Inadequate oral intake (NI-2.1) related to swallowing issues | self feeding issues as evidenced by pt interview | avg PO intake 50% x3d INTERVENTION: Continue with current diet order of DYS1 Pureed diet, with modifier of [place]-Thickened Liquids. Continue TF regimen of bolus feeding of 1 can Jevity 1.5 x5 can/day, with flushes of 75ml H2O before and after bolus feed. Provides 1775 kcal (25 kcal/kg); 76 g Pro (1.1 g Pro/kg); and 1650ml free water (with flushes). Will continue to follow and reassess as pt needs, intake, and status change. MONITOR/EVALUATE: PO Intake; Plan of Care; Hydration Status; Weight Status; Lab Values Alma Ansari, MS, RD, LD"
--- NOTE | 2020-05-20 16:47 | Speech Therapy Daily Note ---
Speech Daily Progress Note Subjective Date Seen by Provider: May 20, 2020 Time Seen by Provider: 00:30 Patient was resting in her bed when I entered her room. Patient alert and talkative. Objective Patient completed a series of safety awareness cards with 70% accuracy given minimal cues. Patient utilizes compensatory strategies as trained for oral intake for food/drink alternating as well as small sips/bites at 80% with minimal cues. Assessment Assessment Current Status: Good Progress Treatment Plan Continue Plan of Care Speech Short Term Goals Short Term Goals Short Term Goals 1) Patient will answer y/n questions related to herself with 80% or greater with minimal cues. 2) Patient will respond to questions related to items/pictures at 80% or greater with minimal cues. 3) Patient will tolerate least restrictive diet level without s/s of aspiration at 80% or greater. 4) Patient/caregiver will utilize compensatory strategies as trained at 90% or greater with minimal cues. Speech Custodial Goals Custodial Goals Patient will improve communication necessary for safety and daily living tasks with minimal assist. Patient will maintain adequate nutrition/hydration via safe, effective swallow function. Speech-Plan Patient/Family Goals Patient/Family Goals: Patient plans on returning to her home with hired care and family for her daily needs. Treatment Plan Speech Therapy Treatment Plan: Continue Plan of Care Treatment Duration: May 17, 2020 Frequency: 5 times per week Estimated Hrs Per Day: .5 hour per day Rehab Potential: Fair Barriers to Learning: Patient's recent CVA and medical status Pt/Family Agrees to Plan: Yes Safety Risks/Education Teaching Recipient: Patient Teaching Methods: Demonstration, Discussion Response to Teaching: Verbalize Understanding, Return Demonstration Education Topics Provided: Continued safety with oral intake and overall safety Time Speech Therapy Time In: 16:30 Speech Therapy Time Out: 17:00 Total Billed Time: 30 Billed Treatment Time 1, SLTS, DYST YUE Cruz May 20, 2020 16:47
[2020-05-20 19:00] VITALS: BP 145/67
[2020-05-20] MEDS: ALPRAZolam 0.25 MG (XANAX) TAB PO PRN (21:32)
[2020-05-20] MEDS: MELATONIN 3 MG TABLET PO PRN (21:32)
[2020-05-21 05:19] VITALS: BP 136/80
[2020-05-21] MEDS: RT-ALBUTEROL/IPRATROPIUM 3 ML (DUONEB) VIAL INH SCH ×3 (07:17→20:15)
--- NOTE | 2020-05-21 08:51 | PM&R Progress Note ---
Subjective HPI/CC On Admission Date Seen by Provider: May 21, 2020 Time Seen by Provider: 09:45 Subjective/Events-last exam 05/21/20: Had a long conversation with Shahida her daughter Discharge is planned for Wednesday Appears to be more alert and wants to go home Family will meet with manager social work to arrange for family education and training Eating better but still with difficulty getting spoon to mouth which is a very real challenge Family visits cause a lot of anxiety for the patient this weekend Wants to go home and states it constantly BM+ No pain with swallowing No pain reported Checked meds and labs Conferred with RN Reviewed therapy notes Review of Systems General: Fatigue, Malaise 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: Weakness Objective Exam Vital Signs Vital Signs Date Time Temp Pulse Resp B/P (MAP) Pulse Ox O2 Delivery O2 Flow Rate FiO2 05/21/20 20:15 94 Room Air 05/21/20 05:19 36.0 90 18 136/80 (98) Capillary Refill : Less Than 3 Seconds General Appearance: No Apparent Distress, WD/WN, Chronically ill HEENT: PERRL/EOMI, Normal ENT Inspection, Pharynx Normal Neck: Full Range of Motion, Normal Inspection, Non Tender, Supple, Carotid Bruit Respiratory: Chest Non Tender, Lungs Clear, Normal Breath Sounds, No Accessory Muscle Use, No Respiratory Distress Cardiovascular: Regular Rate, Rhythm, No Edema, No Gallop, No JVD, No Murmur, Normal Peripheral Pulses Gastrointestinal: Normal Bowel Sounds, No Organomegaly, No Pulsatile Mass, Non Tender, Soft Back: Normal Inspection, No CVA Tenderness, No Vertebral Tenderness Extremity: Normal Capillary Refill, Normal Inspection, Normal Range of Motion, Non Tender, No Calf Tenderness, No Pedal Edema Neurologic/Psychiatric: Alert, Abnormal tub operator II-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 FIM Transfers Therapy Code Descriptions/Definitions Functional [place] Measure: 0=Not Assessed/NA 4=Minimal Assistance 1=Total Assistance 5=Supervision or Setup 2=Maximal Assistance 6=Modified [place] 3=Moderate Assistance 7=Complete IndependenceSCALE: Activities may be completed with or without assistive devices. 9-Oxrlzgdvjc-ydzmvvj completes the activity by him/herself with no assistance from a helper. 5-Set-up or Clean-up Assistance-helper sets up or cleans up; patient completes activity. [place] assists only prior to or following the activity. 4-Supervision or Touching Assistance-helper provides verbal cues and/or touching/steadying and/or contact guard assistance as patient completes activity. Assistance may be provided throughout the activity or intermittently. 3-Partial/Moderate Assistance-helper does LESS THAN HALF the effort. [place] lifts, holds or supports trunk or limbs, but provides less than half the effort. 2-Substantial/Maximal Assistance-helper does MORE THAN HALF the effort. [place] lifts or holds trunk or limbs and provides more than half the effort. 2-Pdujordjj-blvowm does ALL the effort. Patient does none of the effort to complete the activity. Or, the assistance of 2 or more helpers is required for the patient to complete the activity. If activity was not attempted, code reason: 7-Patient Refused. 9-Not Applicable-not attempted and the patient did not perform the activity before the current illness, exacerbation or injury. 10-Not Attempted due to Environmental Limitations-(lack of equipment, weather restraints, etc.). 88-Not Attempted due to Medical Conditions or Safety Concerns. Roll Left to Right (QC): 2 Sit to Lying (QC): 2 Sit to Stand (QC): 2 Chair/Rjv-jf-Podnl Xfer(QC): 2 Car Transfer (QC): 88 Gait Training Does the Patient Walk?: No and Walking Goal NOT indicated Walk 10 feet (QC): 88 Walk 50 ft with 2 Turns(QC): 88 Walk 150 ft (QC): 88 Walking 10ft/uneven surface-QC: 88 Wheelchair Training Does the Pt Use a Wheelchair?: Yes Distance: 300' Wheel 50 ft with 2 turns (QC): 2 Wheel 150 ft (QC): 2 Type of Wheelchair: Manual Stair Training 1 Step (curb) (QC): 88 4 Steps (QC): 88 12 Steps (QC): 88 Balance Picking up an Object (QC): 88 ADL-Treatment Eating (QC): 4 (CGA) Oral Hygiene (QC): 1 Shower/Bathe Self (QC): 2 (Max A) Upper Body Dressing (QC): 3 (Mod A) Lower Body Dressing (QC): 1 On/Off Footwear (QC): 1 Toileting Hygiene (QC): 1 Toilet Transfer (QC): 1 Assessment/Plan Assessment and Plan Assess & Plan/Chief Complaint Assessment: 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 Lord regarding Arana catheter discontinuation Continue crushed pills Continue Clinimix Living will and palliative care consult 05/08/20: Reconsult Dr. Lord since she is not ready for palliative care Discontinued Catheter monitor for retention Bowels are a bit loose hold laxatives Peg tube will be required so will consult general surgery on that 05/09/20: PEG to placement per Dr. Chayo Smart Eliquis today Continue therapies Prognosis poor supervisor intermediates considering catastrophic level of stroke 05/10/20: Arana cath DC and she is able to empty with some incontinence appreciate Dr Mckinney PEG today Will DC IVF once PEG functioning Monitor closely 05/11/20: PEG tube for nutrition and fluids DC Clinimix Duonebs to dry up upper airway secretions 05/12/20: Maintain PEG tube feedings and free water Continue to use swallowing and ST to work with her for that to become stronger 05/13/20: Lab reviewed Monitor BP Nebs TF tolerated and change to bolus feeds 05/14/20: Increase oral food intake Maintain tube feedings Continue aggressive therapy 05/15/20: Supportive care for groin rash Monitor residule tube feedings Bowels are moving well Unsure of disposition plan 05/16/20: Increase food intake Two feedings providing calories Bowels are moving well 05/17/20: Encourage oral nutrition Work on getting spoon to her mouth Bowels are moving well 05/18/20: Increase po nutrition Maintain TF for calories Nebs maintained 05/19/20: Monitor dysphagia TF maintained No more skilled days left so unsure of disposition 05/20/20: Labs reviewed Bowels moved yesterday Aphasia continues Wants to go home desperately 05/21/20: Discharge on Wednesday Family training Social work to arrange everything for home since she refuses to go to a penitentiary (1) CVA (cerebral vascular accident) (2) EMPHYSEMA, UNSPECIFIED Status: Chronic (3) Denial about severity of illness (4) History of shingles (5) Uncontrolled hypertension Status: Acute (6) Aphasia (7) Debility Status: Acute (8) Hypoxia Status: Chronic (9) Dementia (10) Delirium (11) Memory loss (12) Paroxysmal atrial fibrillation Status: Chronic (13) Myopathy (14) Noncompliance with medication regimen Status: Chronic JEROME NEAL DO May 21, 2020 08:51
[2020-05-21] MEDS: APIXABAN 5 MG (ELIQUIS) TABLET PO SCH ×2 (08:55→20:44)
[2020-05-21] MEDS: SENNA W/DOCUSATE (SENOKOT S) TABLET PO SCH ×2 (08:55→20:45)
[2020-05-21] MEDS: polyethylene glycoL POWDER 17 GM (MIRALAX) PACK PO SCH ×2 (08:55→20:44)
[2020-05-21] MEDS: MICONAZOLE 2% POWDER (DESENEX AF) 90 GM TOP PRN ×3 (08:55→20:45)
[2020-05-21] MEDS: DOCUSATE SODIUM 100 MG (COLACE) CAP PO SCH ×2 (08:55→20:44)
[2020-05-21] MEDS: ASPIRIN 81 MG CHEW (CHILDREN'S ASA) PO SCH (08:55)
[2020-05-21] MEDS: MICONAZOLE 2% POWDER (DESENEX AF) 90 GM TOP SCH ×2 (08:58→21:25)
--- NOTE | 2020-05-21 10:57 | Physical Therapy Daily Note ---
PT Daily Note-Current Subjective Patient in recliner pre tx, has no complaints of pain, will be co-treating with OT due to poor patient mobility, strength, endurance, sitting and standing balance, hemiparesis, the need to coordinate UE and LE during activity. Appearance Patient in recliner post tx with nurse call, phone, tray, all needs met, will be continuing with OT for a bit. Mental Status Patient Orientation: Person, Unable to Assess Transfers SCALE: Activities may be completed with or without assistive devices. 7-Gjgccrfpez-pdmohii completes the activity by him/herself with no assistance from a helper. 5-Set-up or Clean-up Assistance-helper sets up or cleans up; patient completes activity. [place] assists only prior to or following the activity. 4-Supervision or Touching Assistance-helper provides verbal cues and/or touching/steadying and/or contact guard assistance as patient completes activity. Assistance may be provided throughout the activity or intermittently. 3-Partial/Moderate Assistance-helper does LESS THAN HALF the effort. [place] lifts, holds or supports trunk or limbs, but provides less than half the effort. 2-Substantial/Maximal Assistance-helper does MORE THAN HALF the effort. [place] lifts or holds trunk or limbs and provides more than half the effort. 0-Rvrenefmi-pfxptc does ALL the effort. Patient does none of the effort to complete the activity. Or, the assistance of 2 or more helpers is required for the patient to complete the activity. If activity was not attempted, code reason: 7-Patient Refused. 9-Not Applicable-not attempted and the patient did not perform the activity before the current illness, exacerbation or injury. 10-Not Attempted due to Environmental Limitations-(lack of equipment, weather restraints, etc.). 88-Not Attempted due to Medical Conditions or Safety Concerns. Sit to Stand (QC): 2 Chair/Wod-oj-Dwvmf Xfer(QC): 2 Transfer to , attempt WC training but patient will not attempt to push wheel with hand, taken to therapy gym, stood in standing frame for 15 min while performing OT activity, transferred to therapy table and worked on sitting nathan ce, transferred back to and attempted mobility training, again, transferred to recliner. Weight Bearing Right Lower Extremity: Right Weight Bearing/Tolerated Left Lower Extremity: Left Weight Bearing/Tolerated Treatments PT worked on transfers, standing for sling placement, sitting balance training, adjusting posture in standing frame, OT worked on OT activity while standing, assisted with balance training and transfers. Assessment Current Status: Poor Progress No change in mobility. Patient makes little to no effort to assist in her rehab, poor motivation, discussed with patient the need to have her participate in order to improve her functional mobility, she seemed uninterested. PT Short Term Goals Short Term Goals Time Frame: May 25, 2020 Roll Left & Right: 3 Sit to lyin Lying to sitting on side of be: 3 Sit to stand: 3 Chair/muo-qg-dgfdh transfer: 3 Toilet transfer: 3 Car transfer: 3 Walk 10 feet: 3 PT Literacy Consultant Goals Literacy Consultant Goals PT Literacy Consultant Goals Time Frame: Jun 08, 2020 Roll Left & Right (QC): 4 Sit to Lying (QC): 4 Lying-Sitting on Side/Bed(QC): 4 Sit to Stand (QC): 4 Chair/Lyy-sf-Wiire Xfer(QC): 4 Toilet Transfer (QC): 4 Car Transfer (QC): 4 Does the Patient Walk: No and Walking Goal IS indicated Walk 10 feet (QC): 4 Walk 50ft with 2 Turns (QC): 4 Walk 150 ft (QC): 4 Walking 10ft on Uneven Surface: 4 1 Step (curb) (QC): 4 4 Steps (QC): 4 12 Steps (QC): 9 Picking up an Object (QC): 3 Does the Pt use WC or Scooter?: Yes Wheel 50 feet with 2 turns (QC: 4 Type: Manual Wheel 150 feet: 4 PT Plan Problem List Problem List: Activity Tolerance, Functional Strength, Safety, Balance, Gait, Transfer, Bed Mobility, ROM Treatment/Plan Treatment Plan: Continue Plan of Care Treatment Plan: Bed Mobility, Concurrent Therapy, Education, Functional Activity Rex, Functional Strength, Group Therapy, Gait, Safety, Therapeutic Exercise, Transfers Treatment Duration: Jun 08, 2020 Frequency: Modified Program (IRF) (01/05) Estimated Hrs Per Day: 1.5 hours per day Patient and/or Family Agrees t: Yes Safety Risks/Education Patient Education: Transfer Techniques, Correct Positioning, W/C Management, Safety Issues Teaching Recipient: Patient Teaching Methods: Demonstration, Discussion Response to Teaching: Reinforcement Needed Time/GCodes Time In: 1000 Time Out: 1100 Total Billed Treatment Time: 60 Total Billed Treatment 1 visit FA 60' co-treated with OT for 60' XIAO COLEY PT May 21, 2020 10:56
--- NOTE | 2020-05-21 13:47 | Physical Therapy Daily Note ---
PT Daily Note-Current Subjective Patient in bed pre tx, agrees to PT, has no complaints of pain. Appearance Patient in bed post tx with nurse call, phone, tray, bed alarm on, in the room. Mental Status Patient Orientation: Person, Unable to Assess Transfers SCALE: Activities may be completed with or without assistive devices. 7-Ifntgyhgyy-qwqxmeh completes the activity by him/herself with no assistance from a helper. 5-Set-up or Clean-up Assistance-helper sets up or cleans up; patient completes activity. [place] assists only prior to or following the activity. 4-Supervision or Touching Assistance-helper provides verbal cues and/or touching/steadying and/or contact guard assistance as patient completes activity. Assistance may be provided throughout the activity or intermittently. 3-Partial/Moderate Assistance-helper does LESS THAN HALF the effort. [place] lifts, holds or supports trunk or limbs, but provides less than half the effort. 2-Substantial/Maximal Assistance-helper does MORE THAN HALF the effort. [place] lifts or holds trunk or limbs and provides more than half the effort. 2-Jzxfjhjis-bjwrac does ALL the effort. Patient does none of the effort to complete the activity. Or, the assistance of 2 or more helpers is required for the patient to complete the activity. If activity was not attempted, code reason: 7-Patient Refused. 9-Not Applicable-not attempted and the patient did not perform the activity before the current illness, exacerbation or injury. 10-Not Attempted due to Environmental Limitations-(lack of equipment, weather restraints, etc.). 88-Not Attempted due to Medical Conditions or Safety Concerns. Weight Bearing Right Lower Extremity: Right Weight Bearing/Tolerated Left Lower Extremity: Left Weight Bearing/Tolerated Exercises Supine Ex: Ankle pumps, Quad Set, Glut sets, Heel Slides (AAROM), Short Arc Quads, Straight leg raise (AAROM), Hip abd/add (AAROM) Supine Reps: 20 (BLE) Treatments BLE exercises Assessment Current Status: Poor Progress no change in mobility, speech is sometimes understandable PT Short Term Goals Short Term Goals Time Frame: May 25, 2020 Roll Left & Right: 3 Sit to lyin Lying to sitting on side of be: 3 Sit to stand: 3 Chair/qtl-ah-cpsmr transfer: 3 Toilet transfer: 3 Car transfer: 3 Walk 10 feet: 3 PT Product Safety Professional Goals Assisted Goals PT Assisted Goals Time Frame: Jun 08, 2020 Roll Left & Right (QC): 4 Sit to Lying (QC): 4 Lying-Sitting on Side/Bed(QC): 4 Sit to Stand (QC): 4 Chair/Cjp-qa-Ybcnt Xfer(QC): 4 Toilet Transfer (QC): 4 Car Transfer (QC): 4 Does the Patient Walk: No and Walking Goal IS indicated Walk 10 feet (QC): 4 Walk 50ft with 2 Turns (QC): 4 Walk 150 ft (QC): 4 Walking 10ft on Uneven Surface: 4 1 Step (curb) (QC): 4 4 Steps (QC): 4 12 Steps (QC): 9 Picking up an Object (QC): 3 Does the Pt use WC or Scooter?: Yes Wheel 50 feet with 2 turns (QC: 4 Type: Manual Wheel 150 feet: 4 PT Plan Problem List Problem List: Activity Tolerance, Functional Strength, Safety, Balance, Gait, Transfer, Bed Mobility, ROM Treatment/Plan Treatment Plan: Continue Plan of Care Treatment Plan: Bed Mobility, Concurrent Therapy, Education, Functional Activity Rex, Functional Strength, Group Therapy, Gait, Safety, Therapeutic Exercise, Transfers Treatment Duration: Jun 08, 2020 Frequency: Modified Program (IRF) (01/05) Estimated Hrs Per Day: 1.5 hours per day Patient and/or Family Agrees t: Yes Safety Risks/Education Patient Education: Correct Positioning, Safety Issues Teaching Recipient: Patient Teaching Methods: Demonstration, Discussion Response to Teaching: Reinforcement Needed Time/GCodes Time In: 1330 Time Out: 1345 Total Billed Treatment Time: 15 Total Billed Treatment 1 visit EX XIAO MOONEY PT May 21, 2020 13:47
--- NOTE | 2020-05-21 13:53 | Speech Therapy Daily Note ---
Speech Daily Progress Note Subjective Date Seen by Provider: May 21, 2020 Time Seen by Provider: 00:30 Patient was resting in her bed with her by her side. Patient alerted to name and participated with therapy. Objective Patient completed q/a related to her daily routine over the past 24 hours with 75% given min to mod cues. Patient utilizes safe oral intake with 1/2 tsp bite/sip size. Assessment Assessment Current Status: Good Progress Treatment Plan Continue Plan of Care Speech Short Term Goals Short Term Goals Short Term Goals 1) Patient will answer y/n questions related to herself with 80% or greater with minimal cues. 2) Patient will respond to questions related to items/pictures at 80% or greater with minimal cues. 3) Patient will tolerate least restrictive diet level without s/s of aspiration at 80% or greater. 4) Patient/caregiver will utilize compensatory strategies as trained at 90% or greater with minimal cues. Speech Offset Printing Operator Goals Usp Goals Patient will improve communication necessary for safety and daily living tasks with minimal assist. Patient will maintain adequate nutrition/hydration via safe, effective swallow function. Speech-Plan Patient/Family Goals Patient/Family Goals: Patient plans to return home with family and hired staff support for her daily needs. Treatment Plan Speech Therapy Treatment Plan: Continue Plan of Care Treatment Duration: May 17, 2020 Frequency: 5 times per week Estimated Hrs Per Day: .5 hour per day Rehab Potential: Fair Barriers to Learning: Patient's recent CVA and medical status Pt/Family Agrees to Plan: Yes Safety Risks/Education Teaching Recipient: Patient, Significant Other Teaching Methods: Demonstration, Discussion Response to Teaching: Verbalize Understanding, Return Demonstration Education Topics Provided: Continued communication of wants/needs, continued safety of all oral intake Time Speech Therapy Time In: 11:30 Speech Therapy Time Out: 12:00 Total Billed Time: 30 Billed Treatment Time 1, SLTS, DYST YUE Cruz May 21, 2020 13:53
--- NOTE | 2020-05-21 15:29 | Occupational Ther Daily Note ---
OT Current Status-Daily Note Subjective Pt seated in recliner, present throughout session. Pt agreeable to therapy, she did not verbalize any pain during tx. ADL-Treatment Therapy Code Descriptions/Definitions Functional [place] Measure: 0=Not Assessed/NA 4=Minimal Assistance 1=Total Assistance 5=Supervision or Setup 2=Maximal Assistance 6=Modified [place] 3=Moderate Assistance 7=Complete IndependenceSCALE: Activities may be completed with or without assistive devices. 8-Zwnbujsiji-htjjmqv completes the activity by him/herself with no assistance from a helper. 5-Set-up or Clean-up Assistance-helper sets up or cleans up; patient completes activity. [place] assists only prior to or following the activity. 4-Supervision or Touching Assistance-helper provides verbal cues and/or touching/steadying and/or contact guard assistance as patient completes activity. Assistance may be provided throughout the activity or intermittently. 3-Partial/Moderate Assistance-helper does LESS THAN HALF the effort. [place] lifts, holds or supports trunk or limbs, but provides less than half the effort. 2-Substantial/Maximal Assistance-helper does MORE THAN HALF the effort. [place] lifts or holds trunk or limbs and provides more than half the effort. 5-Ahvdvhvoe-cufwfb does ALL the effort. Patient does none of the effort to complete the activity. Or, the assistance of 2 or more helpers is required for the patient to complete the activity. If activity was not attempted, code reason: 7-Patient Refused. 9-Not Applicable-not attempted and the patient did not perform the activity before the current illness, exacerbation or injury. 10-Not Attempted due to Environmental Limitations-(lack of equipment, weather restraints, etc.). 88-Not Attempted due to Medical Conditions or Safety Concerns. Other Treatment [id number] OT/PT cotreat: OT/PT cotreat due to skill of 2 clinicians required which a director of rehabilitation and wellness could not perform secondary to poor patient mobility, strength, endurance, sitting and standing balance, decrease fall risk, hemiparesis, the need to coordinate UE and LE during activity. OT focused on UE placement, cues for sequencing and safety, balance training, functional transfers while PT focused on transfers, standing, balance training, and posture. Pt seated in recliner, transferred to w/c, pt instructed to self propel w/c but did not make any attempts to follow directions even with verbal and tactile cues. Pt taken to the gym and transitioned into standing frame where pt stood for 15 minutes. PT focused on posture in stand while OT focused on UE fine motor activity. Pt required hand over hand assistance with her right hand during fine motor task, and moderate verbal/tactile cues for fine motor activity using LUE. Pt then transferred onto mat, OT attempted reaching activity to promote weight shifting and sitting balance, pt leaned to the right during task and did not make any attempts to self correct even with verbal and tactile cues. OT placed mirror with vertical line in the center to show midline and placed mirror in front of pt. OT/PT encouraged pt to sit upright and find her midline, but pt did not make any attempts to push herself back to midline. OT/PT had to self- correct pt back to midline. Pt then assisted into weightbearing through L elbow, pt able to hold this position for a couple mins, then assistance required to achieve midline again. Pt transferred back to the w/c, and encouraged to self- propel w/c. Pt required hand over hand assistance of her L hand in order for her to attempt to propel w/c. Pt taken back to her room and transferred to the recliner. [id number] OT tx: Pt asked for a drink, OT handed pt glass of OJ, CGA to bring hand to mouth and take a drink. OT provided pt with washcloth asking pt to wash her face. Pt washed half of her face, requiring assistance with washing the other half. OT placed hair brush in pt's right hand, pt started to bring hand towards her head but then stopped. OT attempted to provide hand over hand assistance to bring right hand to her head, but pt resisted movement. OT then placed brush in pt's left hand, pt brought it to her head and brushed the left side of her hair above her ear. Pt then stopped task, OT finished brushing the rest of pt's hair. Pt requested to return to bed, 2 person assist recliner to bed, then sit to supine due to fatigue after tx. Post OT tx, pt laying in bed, call light in reach and all needs met. Education OT Patient Education: Correct positioning, Energy conservation, Exercise program, Modified ADL techniques, Progress toward Goal/Update tx plan, Purpose of tx/functional activities, Safety issues, Transfer techniques, W/C management Teaching Recipient: Patient Teaching Methods: Discussion Response to Teaching: Reinforcement Needed OT Short Term Goals Short Term Goals Time Frame: May 17, 2020 Shower/bathe self: 2 Upper body dressin Lower body dressin OT Turner In Goals [place] In Goals Time Frame: May 31, 2020 Eating (QC): 4 Oral Hygiene (QC): 4 Toileting Hygiene (QC): 3 Shower/Bathe Self (QC): 3 Upper Body Dressing (QC): 4 Lower Body Dressing (QC): 3 On/Off Footwear (QC): 3 Additional Goals: 1-Demonstrate ADL Tasks, 2-Verbalize Understanding, 3- ImproveStrength/Rex 1=Demonstrate adherence to instructed precautions during ADL tasks. 2=Patient will verbalize/demonstrate understanding of assistive devices/modifications for ADL. 3=Patient will improve strength/tolerance for activity to enable patient to perform ADL's. OT Education/Plan Problem List/Assessment Assessment: Decreased Activ Tolerance, Decreased UE Strength, Impaired Bed Mobility, Impaired Coordination, Impaired Funct Balance, Impaired I ADL's, Impaired Self-Care Skills, Restricted Funct UE ROM Discharge Recommendations Plan/Recommendations: Continue POC Treatment Plan/Plan of Care Patient would benefit from OT for education, treatment and training to promote independence in ADL's, mobility, safety and/or upper extremity function for ADL's. Plan of Care: ADL Retraining, Functional Mobility, Group Exercise/Act as Ind, UE Funct Exercise/Act, UE Neuromus Re-Ed/Coord, Visual/Perceptual Retrain Treatment Duration: May 31, 2020 Frequency: Modified Program (IRF) (01/05) Estimated Hrs Per Day: Other Agreement: Yes Rehab Potential: Fair Time/GCodes Start Time: 10:00 Stop Time: 11:15 Total Time Billed (hr/min): 75 Billed Treatment Time [id number] OT/PT cotreat x60 mins [id number] OT tx x15' 1, ADL (15'), FA 4 (60') SAY ROMANO OT May 21, 2020 15:29
--- NOTE | 2020-05-21 16:48 | NUR ---
CM/SS CONCURRENT DOCUMENTATION and DISCHARGE PLANNING Physician spoke with patient's daughter/DPOA Shahida Alvarez this a.m. by phone regarding diagnosis, prognosis, and target discharge of 05/24/20. Knowing that family propose to care for patient at home, report writer followed up with therapy team members to get their recommendations for necessary assistive devices. Firestopper Installer spoke with Shahida and then, as agreed, sent email with list of the anticipated items: Brielle lift, 3 in 1 BSC, hospital bed, wheelchair, PEG tube Jevity 1.5, Thick and Easy or some other thickening for DYS1 Pureed Diet/[place] Thickened Liquids. Shahida verbalized her biggest concern to be what kind of caregivers to have in place and how many. Family education and training scheduled for at 0900, informed Lead Therapist and updated communication board. One of the caregivers, Janet, who had worked for patient prior to this new onset of illness came yesterday. Staff reported her saying she could not take care of patient at home in her current state. Discussed this with Shahida and offered that she personally talk with Janet maloney same. Since patient just left [facility] a short time prior to this hospitalization, report writer contacted them as a courtesy and again confirmed they remain under a no visitor policy. Shahida has not been willing for patient to go where she can not have family with her daily citing this would likely lead to a rapid decline. Continue discharge planning with patient and family. Home setup will be tedious, including family securing private pay caregivers since she will need monitor/supervision/assistance all waking hours.
[2020-05-21 18:00] VITALS: BP 128/67
[2020-05-21] MEDS: ALPRAZolam 0.25 MG (XANAX) TAB PO PRN (20:43)
[2020-05-22 05:31] VITALS: BP 127/65
--- NOTE | 2020-05-22 07:29 | Occupational Ther Daily Note ---
OT Current Status-Daily Note Subjective Pt alert, sitting in recliner. Pt spoke a few words quietly to answer questions then went to head nods. No c/o pain at this time. QC's collected this date. Mental Status/Objective Patient Orientation: Person, Place, Time, Situation Attachments: IV ADL-Treatment 1st treatment ([id number])-Pt require set up for eating. Pt would not initiate reaching to grasp spoon and bring to mouth but with max encouragement completed 3 times then max A for rest of meal. Pt requested to use BSC. Max A x2 for transfer to BSC <--> recliner. Assist x2 for hygiene and clothing manipulation. After session, pt sitting in recliner with call light/phone in reach. Nrsg in room. 2nd treatment ([id number])-Co-treat with PT 60 min, skills of 2 clinicians req uired for skilled instruction, transfers, mobility. PT working in transfers, w/c mobility, car transfers, standing. OT working on transfers, w/c mobility, ADLs. Assist x2 for transfer to shower chair with cutout. Pt leaning toward R side, assist to sit upright while taking shower. Pt directed to wash front of body, pt swiped area with washcloth then stopped. Max A x2 for bathing. Max A for donning shirt. Max A x2 for lower body dressing. Max A for footwear. After session, pt lying in bed with call light/phone in reach. All needs met in room. Therapy Code Descriptions/Definitions Functional [place] Measure: 0=Not Assessed/NA 4=Minimal Assistance 1=Total Assistance 5=Supervision or Setup 2=Maximal Assistance 6=Modified [place] 3=Moderate Assistance 7=Complete IndependenceSCALE: Activities may be completed with or without assistive devices. 2-Vpjgqnsbri-gmobrpv completes the activity by him/herself with no assistance from a helper. 5-Set-up or Clean-up Assistance-helper sets up or cleans up; patient completes activity. [place] assists only prior to or following the activity. 4-Supervision or Touching Assistance-helper provides verbal cues and/or touching/steadying and/or contact guard assistance as patient completes activity. Assistance may be provided throughout the activity or intermittently. 3-Partial/Moderate Assistance-helper does LESS THAN HALF the effort. [place] lifts, holds or supports trunk or limbs, but provides less than half the effort. 2-Substantial/Maximal Assistance-helper does MORE THAN HALF the effort. [place] lifts or holds trunk or limbs and provides more than half the effort. 5-Szkvbwary-ztqnph does ALL the effort. Patient does none of the effort to complete the activity. Or, the assistance of 2 or more helpers is required for the patient to complete the activity. If activity was not attempted, code reason: 7-Patient Refused. 9-Not Applicable-not attempted and the patient did not perform the activity before the current illness, exacerbation or injury. 10-Not Attempted due to Environmental Limitations-(lack of equipment, weather restraints, etc.). 88-Not Attempted due to Medical Conditions or Safety Concerns. Eating (QC): 2 Shower/Bathe Self (QC): 1 Upper Body Dressing (QC): 2 Lower Body Dressing (QC): 1 On/Off Footwear: 2 Toileting Hygiene (QC): 1 Toilet Transfer (QC): 1 OT Short Term Goals Short Term Goals Time Frame: May 17, 2020 Shower/bathe self: 2 Upper body dressin Lower body dressin OT Biology Internship Goals Biology Internship Goals Time Frame: May 31, 2020 Eating (QC): 4 Oral Hygiene (QC): 4 Toileting Hygiene (QC): 3 Shower/Bathe Self (QC): 3 Upper Body Dressing (QC): 4 Lower Body Dressing (QC): 3 On/Off Footwear (QC): 3 Additional Goals: 1-Demonstrate ADL Tasks, 2-Verbalize Understanding, 3- ImproveStrength/Rex 1=Demonstrate adherence to instructed precautions during ADL tasks. 2=Patient will verbalize/demonstrate understanding of assistive devices/modifications for ADL. 3=Patient will improve strength/tolerance for activity to enable patient to perform ADL's. OT Education/Plan Problem List/Assessment Assessment: Decreased Activ Tolerance, Decreased Safety Aware, Decreased UE Strength, Dependent Transfers, Impaired Bed Mobility, Impaired Cognition, Impaired Coordination, Impaired Funct Balance, Impaired I ADL's, Impaired Self- Care Skills, Restricted Funct UE ROM Discharge Recommendations Plan/Recommendations: Continue POC Treatment Plan/Plan of Care Patient would benefit from OT for education, treatment and training to promote independence in ADL's, mobility, safety and/or upper extremity function for ADL's. Plan of Care: ADL Retraining, Functional Mobility, Group Exercise/Act as Ind, UE Funct Exercise/Act, UE Neuromus Re-Ed/Coord, Visual/Perceptual Retrain Treatment Duration: May 31, 2020 Frequency: Modified Program (IRF) (01/05) Estimated Hrs Per Day: Other Agreement: Yes Rehab Potential: Fair Time/GCodes Start Time: 07:00 ([id number]) Stop Time: 11:00 ([id number]) Total Time Billed (hr/min): 90 Billed Treatment Time 1 visit-ADL 2 (30 min) individual 1 visit-ADL 4 (60 min) co-treat with PT 60 min JENELLE RAMSEY May 22, 2020 07:29
[2020-05-22] MEDS: RT-ALBUTEROL/IPRATROPIUM 3 ML (DUONEB) VIAL INH SCH ×3 (07:39→18:24)
--- NOTE | 2020-05-22 08:21 | PM&R Progress Note ---
Subjective HPI/CC On Admission Date Seen by Provider: May 22, 2020 Time Seen by Provider: 09:45 Subjective/Events-last exam 05/22/20: Patient little bit sleepy today Discharge planned for Wednesday 2 large Bowel movements yesterday Uses the commode when she needs to go to have a bowel movement 05/21/20: Had a long conversation with Crystal her daughter Discharge is planned for Wednesday Appears to be more alert and wants to go home Family will meet with social worker palliative care to arrange for family education and training Eating better but still with difficulty getting spoon to mouth which is a very real challenge Family visits cause a lot of anxiety for the patient this Wants to go home and states it constantly BM+ No pain with swallowing No pain reported Checked meds and labs Conferred with RN Reviewed therapy notes Review of Systems General: Fatigue, Malaise 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: Weakness Objective Exam Vital Signs Vital Signs Date Time Temp Pulse Resp B/P (MAP) Pulse Ox O2 Delivery O2 Flow Rate FiO2 05/22/20 18:24 96 Room Air 05/22/20 18:00 36.9 87 16 133/60 (84) Capillary Refill : Less Than 3 Seconds General Appearance: No Apparent Distress, WD/WN, Chronically ill HEENT: PERRL/EOMI, Normal ENT Inspection, Pharynx Normal Neck: Full Range of Motion, Normal Inspection, Non Tender, Supple, Carotid Bruit Respiratory: Chest Non Tender, Lungs Clear, Normal Breath Sounds, No Accessory Muscle Use, No Respiratory Distress Cardiovascular: Regular Rate, Rhythm, No Edema, No Gallop, No JVD, No Murmur, Normal Peripheral Pulses Gastrointestinal: Normal Bowel Sounds, No Organomegaly, No Pulsatile Mass, Non Tender, Soft Back: Normal Inspection, No CVA Tenderness, No Vertebral Tenderness Extremity: Normal Capillary Refill, Normal Inspection, Normal Range of Motion, Non Tender, No Calf Tenderness, No Pedal Edema Neurologic/Psychiatric: Alert, 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 FIM Transfers Therapy Code Descriptions/Definitions Functional [place] Measure: 0=Not Assessed/NA 4=Minimal Assistance 1=Total Assistance 5=Supervision or Setup 2=Maximal Assistance 6=Modified [place] 3=Moderate Assistance 7=Complete IndependenceSCALE: Activities may be completed with or without assistive devices. 9-Igpajmvnfu-mtjaubd completes the activity by him/herself with no assistance from a helper. 5-Set-up or Clean-up Assistance-helper sets up or cleans up; patient completes activity. [place] assists only prior to or following the activity. 4-Supervision or Touching Assistance-helper provides verbal cues and/or touching/steadying and/or contact guard assistance as patient completes activity. Assistance may be provided throughout the activity or intermittently. 3-Partial/Moderate Assistance-helper does LESS THAN HALF the effort. [place] lifts, holds or supports trunk or limbs, but provides less than half the effort. 2-Substantial/Maximal Assistance-helper does MORE THAN HALF the effort. [place] lifts or holds trunk or limbs and provides more than half the effort. 3-Dqtqjmavb-wwstvd does ALL the effort. Patient does none of the effort to complete the activity. Or, the assistance of 2 or more helpers is required for the patient to complete the activity. If activity was not attempted, code reason: 7-Patient Refused. 9-Not Applicable-not attempted and the patient did not perform the activity before the current illness, exacerbation or injury. 10-Not Attempted due to Environmental Limitations-(lack of equipment, weather restraints, etc.). 88-Not Attempted due to Medical Conditions or Safety Concerns. Roll Left to Right (QC): 2 Sit to Lying (QC): 2 Sit to Stand (QC): 2 Chair/Skm-xd-Qervy Xfer(QC): 2 Car Transfer (QC): 88 Gait Training Does the Patient Walk?: No and Walking Goal NOT indicated Walk 10 feet (QC): 88 Walk 50 ft with 2 Turns(QC): 88 Walk 150 ft (QC): 88 Walking 10ft/uneven surface-QC: 88 Wheelchair Training Does the Pt Use a Wheelchair?: Yes Distance: 300' Wheel 50 ft with 2 turns (QC): 2 Wheel 150 ft (QC): 2 Type of Wheelchair: Manual Stair Training 1 Step (curb) (QC): 88 4 Steps (QC): 88 12 Steps (QC): 88 Balance Picking up an Object (QC): 88 ADL-Treatment Eating (QC): 2 Oral Hygiene (QC): 1 Shower/Bathe Self (QC): 2 (Max A) Upper Body Dressing (QC): 3 (Mod A) Lower Body Dressing (QC): 1 On/Off Footwear (QC): 1 Toileting Hygiene (QC): 1 Toilet Transfer (QC): 1 Assessment/Plan Assessment and Plan Assess & Plan/Chief Complaint Assessment: 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 Lord regarding Arana catheter discontinuation Continue crushed pills Continue Clinimix Living will and palliative care consult 05/08/20: Reconsult Dr. Lord since she is not ready for palliative care Discontinued Catheter monitor for retention Bowels are a bit loose hold laxatives Peg tube will be required so will consult general surgery on that 05/09/20: PEG to placement per Dr. Chayo Scott today Continue therapies Prognosis poor terminal supervisor considering catastrophic level of stroke 05/10/20: Arana cath DC and she is able to empty with some incontinence appreciate Dr Mckinney PEG today Will DC IVF once PEG functioning Monitor closely 05/11/20: PEG tube for nutrition and fluids DC Clinimix Duonebs to dry up upper airway secretions 05/12/20: Maintain PEG tube feedings and free water Continue to use swallowing and ST to work with her for that to become stronger 05/13/20: Lab reviewed Monitor BP Nebs TF tolerated and change to bolus feeds 05/14/20: Increase oral food intake Maintain tube feedings Continue aggressive therapy 05/15/20: Supportive care for groin rash Monitor residule tube feedings Bowels are moving well Unsure of disposition plan 05/16/20: Increase food intake Two feedings providing calories Bowels are moving well 05/17/20: Encourage oral nutrition Work on getting spoon to her mouth Bowels are moving well 05/18/20: Increase po nutrition Maintain TF for calories Nebs maintained 05/19/20: Monitor dysphagia TF maintained No more skilled days left so unsure of disposition 05/20/20: Labs reviewed Bowels moved yesterday Aphasia continues Wants to go home desperately 05/21/20: Discharge on Wednesday Family training Social work to arrange everything for home since she refuses to go to a care home 05/22/20: Discharge Wednesday Family education on Monitor closely (1) CVA (cerebral vascular accident) (2) EMPHYSEMA, UNSPECIFIED Status: Chronic (3) Denial about severity of illness (4) History of shingles (5) Uncontrolled hypertension Status: Acute (6) Aphasia (7) Debility Status: Acute (8) Hypoxia Status: Chronic (9) Dementia (10) Delirium (11) Memory loss (12) Paroxysmal atrial fibrillation Status: Chronic (13) Myopathy (14) Noncompliance with medication regimen Status: Chronic JEROME NEAL DO May 22, 2020 08:21
[2020-05-22] MEDS: APIXABAN 5 MG (ELIQUIS) TABLET PO SCH ×2 (08:53→22:47)
[2020-05-22] MEDS: DOCUSATE SODIUM 100 MG (COLACE) CAP PO SCH ×2 (08:53→22:47)
[2020-05-22] MEDS: ASPIRIN 81 MG CHEW (CHILDREN'S ASA) PO SCH (08:53)
[2020-05-22] MEDS: polyethylene glycoL POWDER 17 GM (MIRALAX) PACK PO SCH ×2 (08:53→22:51)
[2020-05-22] MEDS: SENNA W/DOCUSATE (SENOKOT S) TABLET PO SCH ×2 (08:53→22:46)
[2020-05-22] MEDS: MICONAZOLE 2% POWDER (DESENEX AF) 90 GM TOP SCH ×2 (08:54→22:48)
--- NOTE | 2020-05-22 09:17 | Speech Therapy Daily Note ---
Speech Daily Progress Note Subjective Date Seen by Provider: May 22, 2020 Time Seen by Provider: 00:30 Patient was sitting up in her recliner watching television when I entered her room. She was agreeable to ST. Objective Patient completed intermediate level questions related to her daily needs with 80% accuracy given 30% verbal cues and/or repetitions. Patient also consumed nectar consistency liquids via small sips without s/s of aspiration at 90% patient requires zero to few verbal cues for small sips. Assessment Assessment Current Status: Good Progress Treatment Plan Continue Plan of Care Speech Short Term Goals Short Term Goals Short Term Goals 1) Patient will answer y/n questions related to herself with 80% or greater with minimal cues. 2) Patient will respond to questions related to items/pictures at 80% or greater with minimal cues. 3) Patient will tolerate least restrictive diet level without s/s of aspiration at 80% or greater. 4) Patient/caregiver will utilize compensatory strategies as trained at 90% or greater with minimal cues. Speech Prison Goals Starch Mangle Tender Goals Patient will improve communication necessary for safety and daily living tasks with minimal assist. Patient will maintain adequate nutrition/hydration via safe, effective swallow function. Speech-Plan Patient/Family Goals Patient/Family Goals: Patient plans on returning to her home where she will receive assistance with daily needs from her family and hired staff. Treatment Plan Speech Therapy Treatment Plan: Continue Plan of Care Treatment Duration: May 17, 2020 Frequency: 5 times per week Estimated Hrs Per Day: .5 hour per day Rehab Potential: Fair Barriers to Learning: Patient's medical status and need for assistance with all of her daily needs. Pt/Family Agrees to Plan: Yes Safety Risks/Education Teaching Recipient: Patient Teaching Methods: Demonstration, Discussion Response to Teaching: Verbalize Understanding, Return Demonstration Education Topics Provided: Continued safety in general as well as with oral intake. Time Speech Therapy Time In: 09:00 Speech Therapy Time Out: 09:30 Total Billed Time: 30 Billed Treatment Time 1, PATIENCE, YUE Gil May 22, 2020 09:17
--- NOTE | 2020-05-22 12:01 | Physical Therapy Daily Note ---
PT Daily Note-Current Subjective Pt sitting in recliner upon arrival. Pt agrees to PT/OT co-treat for shower. Need for 2 skilled clinicians due to extreme weakness, decreased balance (both sitting and standing), need for coordinating UE & LE during transfers as well as hemiparesis. Mental Status Patient Orientation: Person, Confused Attachments: IV Transfers SCALE: Activities may be completed with or without assistive devices. 0-Zverinrpej-iiosaos completes the activity by him/herself with no assistance from a helper. 5-Set-up or Clean-up Assistance-helper sets up or cleans up; patient completes activity. [place] assists only prior to or following the activity. 4-Supervision or Touching Assistance-helper provides verbal cues and/or touching/steadying and/or contact guard assistance as patient completes activity. Assistance may be provided throughout the activity or intermittently. 3-Partial/Moderate Assistance-helper does LESS THAN HALF the effort. [place] lifts, holds or supports trunk or limbs, but provides less than half the effort. 2-Substantial/Maximal Assistance-helper does MORE THAN HALF the effort. [place] lifts or holds trunk or limbs and provides more than half the effort. 9-Cwhkcxyry-cdntrg does ALL the effort. Patient does none of the effort to complete the activity. Or, the assistance of 2 or more helpers is required for the patient to complete the activity. If activity was not attempted, code reason: 7-Patient Refused. 9-Not Applicable-not attempted and the patient did not perform the activity before the current illness, exacerbation or injury. 10-Not Attempted due to Environmental Limitations-(lack of equipment, weather restraints, etc.). 88-Not Attempted due to Medical Conditions or Safety Concerns. Roll Left & Right (QC): 2 Sit to Lying (QC): 2 Lying to Sitting/Side of Bed(Q: 2 Sit to Stand (QC): 2 Chair/Iyk-hk-Rbhqi Xfer(QC): 2 Toilet Transfer (QC): 2 Car Transfer (QC): 2 Weight Bearing Right Lower Extremity: Right Weight Bearing/Tolerated Left Lower Extremity: Left Weight Bearing/Tolerated Gait Training Does the Patient Walk?: No and Walking Goal IS indicated Walk 10 feet (QC): 88 Walk 50 ft with 2 Turns(QC): 88 Walk 150 ft (QC): 88 Walking 10ft/uneven surface-QC: 88 Wheelchair Training Does the Pt Use a Wheelchair?: Yes Wheel 50 ft with 2 turns (QC): 1 Wheel 150 ft (QC): 1 Type of Wheelchair: Manual Stair Training 1 Step (curb) (QC): 88 4 Steps (QC): 88 12 Steps (QC): 88 Balance Picking up an Object (QC): 88 Treatments Pt 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 Pt is dependent on the ones that are tested including transfers. PT & OT assist pt in showering today. Pt then dresses with assistance from PT & OT. Pt transfers back to bed at end of tx. Pt has all needs met. PT focuses on sequencing during transfers, sitting and standing balance while OT focuses on ADLs and coordinating UE with LE during transfers. Assessment Current Status: Poor Progress Pt has very flat affect during tx., will occasionally smile, talks with quiet whisper. PT Short Term Goals Short Term Goals Time Frame: May 25, 2020 Roll Left & Right: 3 Sit to lyin Lying to sitting on side of be: 3 Sit to stand: 3 Chair/ali-nw-drknw transfer: 3 Toilet transfer: 3 Car transfer: 3 Walk 10 feet: 3 PT Erp Implementation Consultant Goals Erp Implementation Consultant Goals PT Erp Implementation Consultant Goals Time Frame: Jun 08, 2020 Roll Left & Right (QC): 4 Sit to Lying (QC): 4 Lying-Sitting on Side/Bed(QC): 4 Sit to Stand (QC): 4 Chair/Vft-hv-Rubva Xfer(QC): 4 Toilet Transfer (QC): 4 Car Transfer (QC): 4 Does the Patient Walk: No and Walking Goal IS indicated Walk 10 feet (QC): 4 Walk 50ft with 2 Turns (QC): 4 Walk 150 ft (QC): 4 Walking 10ft on Uneven Surface: 4 1 Step (curb) (QC): 4 4 Steps (QC): 4 12 Steps (QC): 9 Picking up an Object (QC): 3 Does the Pt use WC or Scooter?: Yes Wheel 50 feet with 2 turns (QC: 4 Type: Manual Wheel 150 feet: 4 PT Plan Problem List Problem List: Activity Tolerance, Functional Strength, Safety, Balance, Gait, Transfer, Bed Mobility Treatment/Plan Treatment Plan: Continue Plan of Care Treatment Plan: Bed Mobility, Concurrent Therapy, Education, Functional Activity Rex, Functional Strength, Group Therapy, Gait, Safety, Therapeutic Exercise, Transfers Treatment Duration: Jun 08, 2020 Frequency: Modified Program (IRF) (01/05) Estimated Hrs Per Day: 1.5 hours per day Patient and/or Family Agrees t: Yes Safety Risks/Education Patient Education: Transfer Techniques, Correct Positioning, Safety Issues Teaching Recipient: Patient Teaching Methods: Discussion Response to Teaching: Reinforcement Needed Time/GCodes Time In: 1000 Time Out: 1100 Total Billed Treatment Time: 60 Total Billed Treatment 1,FA x4 (60m) KLARISSA RITCHIE AUTO PORTER May 22, 2020 12:01
--- NOTE | 2020-05-22 15:29 | NUR ---
CM/SS PATIENT CARE CONFERENCE and DISCHARGE PLANNING Summary reviewed with daughter/DPOA Shahida Alvarez by phone confirming patient target discharge is May 24. Physician spoke with Shahida by phone Wednesday and the discharge date was determined at that time. Butcher confirmed with [facility] needed assistive devices are in stock, informed physician of required orders: Wheelchair, hospital bed, bailee, 3-in-1 commode, Jevity per RD recommendations, Thick and Easy. Will complete referral with Home Medical once orders received, items to be delivered to patient's home prior to her arrival there. Butcher notified Television News Video Editor that 4-5 family/caregivers will be here tomorrow at 0900 for education/training regarding patient care in the home. Addendum: 05/22/20 at 1542 by ANGEL ARCHER Building of a ramp at the home has started today.
[2020-05-22 18:00] VITALS: BP 133/60
[2020-05-22] MEDS: MICONAZOLE 2% POWDER (DESENEX AF) 90 GM TOP PRN (22:47)
[2020-05-22] MEDS: ALPRAZolam 0.25 MG (XANAX) TAB PO PRN (22:47)
[2020-05-23 05:53] VITALS: BP 142/65
[2020-05-23] MEDS ORDERED: [UNRECOGNIZED DRUG - CODE] PO (06:02)
--- NOTE | 2020-05-23 06:05 | D/C HH Face to Face Order ---
D/C Face to Face Orders Reconcile Patient Problems Problems Reviewed?: Yes Instructions for Patient Via [facility], Patient Instructions/FollowUp: Dr Verde in 2 weeks Physician to follow Patient: [place] Discharge Diet for Home: Eat Small Frequent Meals, Tube Feeding Patient Problems: CVA Patient Data-Allergies,Ht & Wt Patient Allergies: Coded Allergies: Sulfa (Sulfonamide Antibiotics) (Verified Allergy, Unknown, 12/27/17) Height (Feet): 5 Height (Inches): 4.00 Weight (Pounds): 170 Weight (Ounces): 0 Home Health Need/Face to Face Date of Face to Face: May 23, 2020 Clinical Findings: Generalized weakness and fatigue, Immune-compromised, I nstability, Muscle weakness, Shortness of breath I have seen Pt uqrx-xk-vihm: Yes Discharged To: Home Diagnosis/Conditions: CVA Patient is Homebound due to: CognItive deficits, Joselyn fall risk due to instabilty, Muscle weakness, Shortness of breath/distress Homebound Status Due to the above stated illness, injury or surgical procedure (medical condition or diagnosis) and associated clinical findings, the patient is homebound because of his/her inability to leave home except with aid of a supportive device and/or person AND leaving the home requires a considerable and taxing effort or is medically contraindicated. Pt req the following assistanc: Wheelchair Home Health Nursing Orders Home Health Services Order: Nursing Services, Production Estimator-Evaluate & Treat, Physical Therapy-Evaluate & Treat, Speech Language-Evaluate & Treat, Oth er (bath aide) Home Health Infusion Therapy Line Start Date: May 06, 2020 Certify Stmt I certify that this patient is under my care and that I, a nurse practitioner or a physician; a assistant director of plant operations working with me, had a face to face encounter that - meets the physician face to face encounter requirements with this patient as dated. JEROME VERDE DO May 23, 2020 06:05
--- NOTE | 2020-05-23 06:12 | PM&R Progress Note ---
Subjective HPI/CC On Admission Date Seen by Provider: May 23, 2020 Time Seen by Provider: 09:45 Subjective/Events-last exam 05/23/20: Family here for family training her two daughters and Had a bowel movement on the floor Reviewed discharge Meds and put all orders in Plan for discharge tomorrow I would highly recommend retirement placement but family and patient will not hear of it I will see her in clinic next week 05/22/20: Patient little bit sleepy today Discharge planned for Wednesday 2 large Bowel movements yesterday Uses the commode when she needs to go to have a bowel movement 05/21/20: Had a long conversation with Shahida her daughter Discharge is planned for Wednesday Appears to be more alert and wants to go home Family will meet with social services manager to arrange for family education and training Eating better but still with difficulty getting spoon to mouth which is a very real challenge Family visits cause a lot of anxiety for the patient this Wants to go home and states it constantly BM+ No pain with swallowing No pain reported Checked meds and labs Conferred with RN Reviewed therapy notes Review of Systems General: Fatigue, Malaise 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: Weakness Objective Exam Vital Signs Vital Signs Date Time Temp Pulse Resp B/P (MAP) Pulse Ox O2 Delivery O2 Flow Rate FiO2 05/23/20 08:49 Room Air 05/23/20 05:53 35.6 89 18 142/65 (90) 93 Capillary Refill : Less Than 3 Seconds General Appearance: No Apparent Distress, WD/WN, Chronically ill HEENT: PERRL/EOMI, Normal ENT Inspection, Pharynx Normal Neck: Full Range of Motion, Normal Inspection, Non Tender, Supple, Carotid Bruit Respiratory: Chest Non Tender, Lungs Clear, Normal Breath Sounds, No Accessory Muscle Use, No Respiratory Distress Cardiovascular: Regular Rate, Rhythm, No Edema, No Gallop, No JVD, No Murmur, Normal Peripheral Pulses Gastrointestinal: Normal Bowel Sounds, No Organomegaly, No Pulsatile Mass, Non Tender, Soft Back: Normal Inspection, No CVA Tenderness, No Vertebral Tenderness Extremity: Normal Capillary Refill, Normal Inspection, Normal Range of Motion, Non Tender, No Calf Tenderness, No Pedal Edema Neurologic/Psychiatric: Alert, 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 FIM Transfers Therapy Code Descriptions/Definitions Functional [place] Measure: 0=Not Assessed/NA 4=Minimal Assistance 1=Total Assistance 5=Supervision or Setup 2=Maximal Assistance 6=Modified [place] 3=Moderate Assistance 7=Complete IndependenceSCALE: Activities may be completed with or without assistive devices. 5-Aplgpvugse-wolvpyc completes the activity by him/herself with no assistance from a helper. 5-Set-up or Clean-up Assistance-helper sets up or cleans up; patient completes activity. [place] assists only prior to or following the activity. 4-Supervision or Touching Assistance-helper provides verbal cues and/or touching/steadying and/or contact guard assistance as patient completes activity. Assistance may be provided throughout the activity or intermittently. 3-Partial/Moderate Assistance-helper does LESS THAN HALF the effort. [place] lifts, holds or supports trunk or limbs, but provides less than half the effort. 2-Substantial/Maximal Assistance-helper does MORE THAN HALF the effort. [place] lifts or holds trunk or limbs and provides more than half the effort. 7-Chbazvqqq-ipglwr does ALL the effort. Patient does none of the effort to complete the activity. Or, the assistance of 2 or more helpers is required for the patient to complete the activity. If activity was not attempted, code reason: 7-Patient Refused. 9-Not Applicable-not attempted and the patient did not perform the activity before the current illness, exacerbation or injury. 10-Not Attempted due to Environmental Limitations-(lack of equipment, weather restraints, etc.). 88-Not Attempted due to Medical Conditions or Safety Concerns. Roll Left to Right (QC): 2 Sit to Lying (QC): 2 Sit to Stand (QC): 2 Chair/Yjh-qh-Gtoyy Xfer(QC): 2 Car Transfer (QC): 2 Gait Training Does the Patient Walk?: No and Walking Goal IS indicated Walk 10 feet (QC): 88 Walk 50 ft with 2 Turns(QC): 88 Walk 150 ft (QC): 88 Walking 10ft/uneven surface-QC: 88 Wheelchair Training Does the Pt Use a Wheelchair?: Yes Distance: 300' Wheel 50 ft with 2 turns (QC): 1 Wheel 150 ft (QC): 1 Type of Wheelchair: Manual Stair Training 1 Step (curb) (QC): 88 4 Steps (QC): 88 12 Steps (QC): 88 Balance Picking up an Object (QC): 88 ADL-Treatment Eating (QC): 2 Oral Hygiene (QC): 1 Shower/Bathe Self (QC): 1 Upper Body Dressing (QC): 2 Lower Body Dressing (QC): 1 On/Off Footwear (QC): 2 Toileting Hygiene (QC): 1 Toilet Transfer (QC): 1 Assessment/Plan Assessment and Plan Assess & Plan/Chief Complaint Assessment: 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 Lord regarding Arana catheter discontinuation Continue crushed pills Continue Clinimix Living will and palliative care consult 05/08/20: Reconsult Dr. Lord since she is not ready for palliative care Discontinued Catheter monitor for retention Bowels are a bit loose hold laxatives Peg tube will be required so will consult general surgery on that 05/09/20: PEG to placement per Dr. Chayo Scott today Continue therapies Prognosis poor longterm considering catastrophic level of stroke 05/10/20: Arana cath DC and she is able to empty with some incontinence appreciate Dr Mckinney PEG today Will DC IVF once PEG functioning Monitor closely 05/11/20: PEG tube for nutrition and fluids DC Clinimix Duonebs to dry up upper airway secretions 05/12/20: Maintain PEG tube feedings and free water Continue to use swallowing and ST to work with her for that to become stronger 05/13/20: Lab reviewed Monitor BP Nebs TF tolerated and change to bolus feeds 05/14/20: Increase oral food intake Maintain tube feedings Continue aggressive therapy 05/15/20: Supportive care for groin rash Monitor residule tube feedings Bowels are moving well Unsure of disposition plan 05/16/20: Increase food intake Two feedings providing calories Bowels are moving well 05/17/20: Encourage oral nutrition Work on getting spoon to her mouth Bowels are moving well 05/18/20: Increase po nutrition Maintain TF for calories Nebs maintained 05/19/20: Monitor dysphagia TF maintained No more skilled days left so unsure of disposition 05/20/20: Labs reviewed Bowels moved yesterday Aphasia continues Wants to go home desperately 05/21/20: Discharge on Wednesday Family training Social work to arrange everything for home since she refuses to go to a retirement 05/22/20: Discharge Wednesday Family education on Monitor closely 05/23/20; Discharge home tomorrow Tube feedings per dietary consultation Monitor closely (1) CVA (cerebral vascular accident) Qualifiers: Qualified Codes: I63.9 - Cerebral infarction, unspecified (2) EMPHYSEMA, UNSPECIFIED Status: Chronic (3) Denial about severity of illness (4) History of shingles (5) Uncontrolled hypertension Status: Acute (6) Aphasia (7) Debility Status: Acute (8) Hypoxia Status: Chronic (9) Dementia (10) Delirium (11) Memory loss (12) Paroxysmal atrial fibrillation Status: Chronic (13) Myopathy (14) Noncompliance with medication regimen Status: Chronic JEROME NEAL DO May 23, 2020 06:12
[2020-05-23] MEDS: APIXABAN 5 MG (ELIQUIS) TABLET PO SCH (08:10)
[2020-05-23] MEDS: ASPIRIN 81 MG CHEW (CHILDREN'S ASA) PO SCH (08:11)
[2020-05-23] MEDS: DOCUSATE SODIUM 100 MG (COLACE) CAP PO SCH (08:30)
[2020-05-23] MEDS: SENNA W/DOCUSATE (SENOKOT S) TABLET PO SCH (08:30)
[2020-05-23] MEDS: polyethylene glycoL POWDER 17 GM (MIRALAX) PACK PO SCH (08:30)
[2020-05-23] MEDS: MICONAZOLE 2% POWDER (DESENEX AF) 90 GM TOP SCH (08:30)
[2020-05-23] MEDS ORDERED: MICO90PO TOP (10:44)
[2020-05-23] MEDS ORDERED: LACT-72 PO (10:44)
[2020-05-23] MEDS ORDERED: ALPR0.254 PO (10:44)
--- NOTE | 2020-05-23 10:58 | Occupational Ther Daily Note ---
OT Current Status-Daily Note Subjective Pt laying in bed, agreeable to therapy. Pt's family and caregiver present for family training. Mental Status/Objective Patient Orientation: Person ADL-Treatment Therapy Code Descriptions/Definitions Functional [place] Measure: 0=Not Assessed/NA 4=Minimal Assistance 1=Total Assistance 5=Supervision or Setup 2=Maximal Assistance 6=Modified [place] 3=Moderate Assistance 7=Complete IndependenceSCALE: Activities may be completed with or without assistive devices. 8-Devtmqtwbe-dfrutao completes the activity by him/herself with no assistance from a helper. 5-Set-up or Clean-up Assistance-helper sets up or cleans up; patient completes activity. [place] assists only prior to or following the activity. 4-Supervision or Touching Assistance-helper provides verbal cues and/or touching/steadying and/or contact guard assistance as patient completes activity. Assistance may be provided throughout the activity or intermittently. 3-Partial/Moderate Assistance-helper does LESS THAN HALF the effort. [place] lifts, holds or supports trunk or limbs, but provides less than half the effort. 2-Substantial/Maximal Assistance-helper does MORE THAN HALF the effort. [place] lifts or holds trunk or limbs and provides more than half the effort. 8-Nokiueknf-gjidqy does ALL the effort. Patient does none of the effort to complete the activity. Or, the assistance of 2 or more helpers is required for the patient to complete the activity. If activity was not attempted, code reason: 7-Patient Refused. 9-Not Applicable-not attempted and the patient did not perform the activity before the current illness, exacerbation or injury. 10-Not Attempted due to Environmental Limitations-(lack of equipment, weather restraints, etc.). 88-Not Attempted due to Medical Conditions or Safety Concerns. Lower Body Dressing (QC): 1 (Assist x2 to change soiled brief, 1 person to focus on stand/transfer while the other assists with pant hike) Toileting Hygiene (QC): 1 (Assist x2, 1 person to focus on safe transfer and 1 to complete clothing management and hygiene.) Other Treatment Co-treat with PT 75 min, skills of 2 clinicians required for skilled instruction, transfers, mobility, decrease fall risk. PT working in transfers, w/c mobility, standing. OT working on transfers, w/c mobility, ADLs, cues for safety/sequencing. Pt's family and caregiver present for family training session. Family reports they are looking into getting a bailee lift for use at home. OT/PT educated family on correct placement of sling and operation of bailee. Family practiced using bailee remote in order to raise/lower. Pt transferred to w/c via bailee, education provided to family on correct positioning so pt is upright with hips back in w/c as the bailee is lowered. Family verbalized understanding of bailee and state no questions/concerns. OT/PT then demo'd stand pivot transfer from w/c to recliner. Pt's caregiver practiced transfer back to the w/c with close supervision from therapists. Family then asked about transferring to BS, OT positioned commode, PT/OT demo'd SPT from w/c to C, 1 person focusing on transfer and the other on clothing management. Pt completed toileting, then 2 person assist to complete hygiene and manage pants up. Pt sat back on BSC for rest break before transferring back to w/c. Pt requested to return to bed. Pt's and daughter performed transfer from w/c to bed with supervision of therapists. Pt assisted to supine. Family demo'd and verbalized understanding of transfers. Family asked about options for showering. OT educated family on different shower chair options available including BSC, shower chair with wheels and cutout. Family discussed different options that may work in their bathroom but they feel they will start off with sponge baths. Post OT/PT cotreat, pt laying in bed, call light in reach and all needs met, family present stating no further questions/concerns. Education OT Patient Education: Correct positioning, Energy conservation, Modified ADL techniques, Progress toward Goal/Update tx plan, Purpose of tx/functional activities, Safety issues, Transfer techniques Teaching Recipient: Patient, Family, Significant Other Teaching Methods: Demonstration, Discussion Response to Teaching: Verbalize Understanding, Return Demonstration OT Short Term Goals Short Term Goals Time Frame: May 17, 2020 Shower/bathe self: 2 Upper body dressin Lower body dressin OT Transmission Specialist Goals [facility] Goals Time Frame: May 31, 2020 Eating (QC): 4 Oral Hygiene (QC): 4 Toileting Hygiene (QC): 3 Shower/Bathe Self (QC): 3 Upper Body Dressing (QC): 4 Lower Body Dressing (QC): 3 On/Off Footwear (QC): 3 Additional Goals: 1-Demonstrate ADL Tasks, 2-Verbalize Understanding, 3- ImproveStrength/Rex 1=Demonstrate adherence to instructed precautions during ADL tasks. 2=Patient will verbalize/demonstrate understanding of assistive devices/modifications for ADL. 3=Patient will improve strength/tolerance for activity to enable patient to perform ADL's. OT Education/Plan Problem List/Assessment Assessment: Decreased Activ Tolerance, Decreased UE Strength, Impaired Bed Mobility, Impaired Cognition, Impaired Funct Balance, Impaired I ADL's, Impaired Self-Care Skills, Restricted Funct UE ROM Discharge Recommendations Plan/Recommendations: Continue POC Treatment Plan/Plan of Care Patient would benefit from OT for education, treatment and training to promote independence in ADL's, mobility, safety and/or upper extremity function for ADL's. Plan of Care: ADL Retraining, Functional Mobility, Group Exercise/Act as Ind, UE Funct Exercise/Act, UE Neuromus Re-Ed/Coord, Visual/Perceptual Retrain Treatment Duration: May 31, 2020 Frequency: Modified Program (IRF) (01/05) Estimated Hrs Per Day: Other Agreement: Yes Rehab Potential: Fair Time/GCodes Start Time: 09:00 Stop Time: 10:15 Total Time Billed (hr/min): 75 Billed Treatment Time OT/PT cotreat x75 mins 1, FA 4 (60'), ADL (15') SAY ROMANO OT May 23, 2020 10:58
--- NOTE | 2020-05-23 11:33 | Physical Therapy Daily Note ---
PT Daily Note-Current Subjective Pt laying Supine in bed with Caregiver and family members present for Family Training. Pt agrees to PT although states she doesn't want Brielle lift or house changes made. "Just want to go home". Pain Location: No Pain Reported Mental Status Patient Orientation: Person, Confused, Place Transfers SCALE: Activities may be completed with or without assistive devices. 5-Zabflddlad-fusuuuh completes the activity by him/herself with no assistance from a helper. 5-Set-up or Clean-up Assistance-helper sets up or cleans up; patient completes activity. [place] assists only prior to or following the activity. 4-Supervision or Touching Assistance-helper provides verbal cues and/or touching/steadying and/or contact guard assistance as patient completes activity. Assistance may be provided throughout the activity or intermittently. 3-Partial/Moderate Assistance-helper does LESS THAN HALF the effort. [place] lifts, holds or supports trunk or limbs, but provides less than half the effort. 2-Substantial/Maximal Assistance-helper does MORE THAN HALF the effort. [place] lifts or holds trunk or limbs and provides more than half the effort. 5-Yivqdwuru-zuxpvt does ALL the effort. Patient does none of the effort to com plete the activity. Or, the assistance of 2 or more helpers is required for the patient to complete the activity. If activity was not attempted, code reason: 7-Patient Refused. 9-Not Applicable-not attempted and the patient did not perform the activity before the current illness, exacerbation or injury. 10-Not Attempted due to Environmental Limitations-(lack of equipment, weather restraints, etc.). 88-Not Attempted due to Medical Conditions or Safety Concerns. Roll Left & Right (QC): 2 Sit to Lying (QC): 1 Lying to Sitting/Side of Bed(Q: 1 Sit to Stand (QC): 2 Chair/Kpi-fh-Dnjcv Xfer(QC): 2 Toilet Transfer (QC): 2 Weight Bearing Right Lower Extremity: Right Weight Bearing/Tolerated Left Lower Extremity: Left Weight Bearing/Tolerated Treatments Co-treat with PT 75 min, skills of 2 clinicians required for skilled instruction, transfers, mobility, decrease fall risk. PT working in transfers, w/c mobility, standing. OT working on transfers, w/c mobility, ADLs, cues for safety/sequencing. Pt's family and caregiver present for family training session. Family reports they are looking into getting a brielle lift for use at home. OT/PT educated family on correct placement of sling and operation of brielle. Family practiced using brielle remote in order to raise/lower. Pt transferred to w/c via brielle, education provided to family on correct positioning so pt is upright with hips back in w/c as the brielle is lowered. Family verbalized understanding of brielle and state no questions/concerns. OT/PT then demo'd stand pivot transfer from w/c to recliner. Pt's caregiver practiced transfer back to the w/c with close supervision from therapists. Family then asked about transferring to BSC, OT positioned commode, PT/OT demo'd SPT from w/c to BSC, 1 person focusing on transfer and the other on clothing management. Pt completed toileting, then 2 person assist to complete hygiene and manage pants up. Pt sat back on BSC for rest break before transferring back to w/c. Pt requested to return to bed. Pt's and daughter performed transfer from w/c to bed with supervision of therapists. Pt assisted to supine. Family demo'd and verbalized understanding of transfers. Family asked about options for showering. OT educated family on different shower chair options available including BSC, shower chair with wheels and cutout. Family discussed different options that may work in their bathroom but they feel they will start off with sponge baths. Post OT/PT cotreat, pt laying in bed, call light in reach and all needs met, family present stating no further questions/concerns. Assessment Current Status: Fair Progress Pt has made progress but minimal and is Max A. Brielle lift is needed for less burden of care on family & caregiver. PT Short Term Goals Short Term Goals Time Frame: May 25, 2020 Roll Left & Right: 3 Sit to lyin Lying to sitting on side of be: 3 Sit to stand: 3 Chair/nvg-kw-rojcf transfer: 3 Toilet transfer: 3 Car transfer: 3 Walk 10 feet: 3 PT Cloth Dyeing Range Tender Goals Cloth Dyeing Range Tender Goals PT Cloth Dyeing Range Tender Goals Time Frame: Jun 08, 2020 Roll Left & Right (QC): 4 Sit to Lying (QC): 4 Lying-Sitting on Side/Bed(QC): 4 Sit to Stand (QC): 4 Chair/Jkq-do-Qbdbf Xfer(QC): 4 Toilet Transfer (QC): 4 Car Transfer (QC): 4 Does the Patient Walk: No and Walking Goal IS indicated Walk 10 feet (QC): 4 Walk 50ft with 2 Turns (QC): 4 Walk 150 ft (QC): 4 Walking 10ft on Uneven Surface: 4 1 Step (curb) (QC): 4 4 Steps (QC): 4 12 Steps (QC): 9 Picking up an Object (QC): 3 Does the Pt use WC or Scooter?: Yes Wheel 50 feet with 2 turns (QC: 4 Type: Manual Wheel 150 feet: 4 PT Plan Problem List Problem List: Activity Tolerance, Functional Strength, Safety, Balance, Transfer, Bed Mobility Treatment/Plan Treatment Plan: Continue Plan of Care Treatment Plan: Bed Mobility, Concurrent Therapy, Education, Functional Activity Rex, Functional Strength, Group Therapy, Gait, Safety, Therapeutic Exercise, Transfers Treatment Duration: Jun 08, 2020 Frequency: Modified Program (IRF) (01/05) Estimated Hrs Per Day: 1.5 hours per day Patient and/or Family Agrees t: Yes Safety Risks/Education Patient Education: Transfer Techniques, Correct Positioning, W/C Management, Instructions to Caregiver, Safety Issues Teaching Recipient: Patient, Primary Caregiver, Family Teaching Methods: Demonstration, Discussion Response to Teaching: Verbalize Understanding, Return Demonstration Time/GCodes Time In: 900 Time Out: 1015 Total Billed Treatment Time: 75 Total Billed Treatment 1, FA x4 (60m) & EX (15m) Co-treat with OT for 75m KLARISSA RITCHIE MANUFACTURE SPECIALIST May 23, 2020 11:33
--- NOTE | 2020-05-23 11:56 | Progress Note ---
LAINEY ESTEVEZ MED STUDENT 05/23/20 1156: Progress Note 74 yo F presents after cerebrovascular accident with aphasia and R-sided weakness. pt currently on peg tube feeds with supplemental po thickened liquids. pt has with difficulty with raising spoon to mouth. past medical history- paroxysmal atrial fibrillation, delirium, dementia, copd and pneumonia. In my opinion, the following has been observed since 05/20/2020 [address] or situation pt is more alert when family members are present pt is adamant about going home pt able to express when needing to defecate Goals patient unable to communicate goals TERESE VERDE DO 05/24/20 0539: Supervisory-Addendum Brief Verification & Attestation Participated in pt care: history, MDM, physical Personally performed: exam, history, MDM, supervision of care Care discussed with: Medical Student Procedures: n/a Results interpretation: Verified all documentation Verification and Attestation of Medical Student E/M Service A medical student performed and documented this service in my presence. I reviewed and verified all information documented by the medical student and made modifications to such information, when appropriate. I personally performed the physical exam and medical decision making. Terese Verde, May 24, 2020,05:39 LAINEY ESTEVEZ MED STUDENT May 23, 2020 11:56 TERESE VERDE DO May 24, 2020 05:39
--- NOTE | 2020-05-23 12:51 | Speech Therapy Daily Note ---
Speech Daily Progress Note Subjective Date Seen by Provider: May 23, 2020 Time Seen by Provider: 00:30 Patient was resting in her bed. She alerted to name and gentle touch. Patient had just finished her breathing treatment. Objective Patient completed a series of questions related to her return home tomorrow with 80% given moderate repetitions. Patient also had other support personnel present for family training prior to going home. Assessment Assessment Current Status: Fair Progress Treatment Plan Discontinue ST Speech Short Term Goals Short Term Goals Short Term Goals 1) Patient will answer y/n questions related to herself with 80% or greater with minimal cues. 2) Patient will respond to questions related to items/pictures at 80% or greater with minimal cues. 3) Patient will tolerate least restrictive diet level without s/s of aspiration at 80% or greater. 4) Patient/caregiver will utilize compensatory strategies as trained at 90% or greater with minimal cues. Speech Rural Service Engineer Goals Rural Service Engineer Goals Patient will improve communication necessary for safety and daily living tasks with minimal assist. Patient will maintain adequate nutrition/hydration via safe, effective swallow function. Speech-Plan Patient/Family Goals Patient/Family Goals: Patient will be discharging to her home with family tomorrow Treatment Plan Speech Therapy Treatment Plan: Continue Plan of Care Treatment Duration: May 17, 2020 Frequency: 5 times per week Estimated Hrs Per Day: .5 hour per day Rehab Potential: Fair Barriers to Learning: Patient's cognitive and physical deficits Pt/Family Agrees to Plan: Yes Safety Risks/Education Teaching Recipient: Patient Teaching Methods: Demonstration, Discussion Response to Teaching: Verbalize Understanding, Return Demonstration, Reinforcement Needed Education Topics Provided: Continued safety upon her return home with familyo Time Speech Therapy Time In: 14:00 Speech Therapy Time Out: 14:30 Total Billed Time: 30 Billed Treatment Time l, DYST, SLTS No QUALITY CODES: EXPRESSION OF IDEAS/WANTS: 3 UNDERSTANDING VERBAL CONTENT: 3 BRIEF INTERVIEW MENTAL STATUS: YES REPETITION OF 3 WORDS: 3 TEMPORAL ORIENTATION: YEAR: CORRECT, MONTH: CORRECT, DAY: NO ANSWER RECALL: SOCK: YES WITH CUE, COLOR: NO BED: NO MEMORY/RECALL ABILITY: SEASON, THAT SHE IS IN THE HOSPITAL YUE JARAMILLO May 23, 2020 12:51
[2020-05-23] MEDS: RT-ALBUTEROL/IPRATROPIUM 3 ML (DUONEB) VIAL INH SCH ×2 (14:02→21:07)
[2020-05-23] MEDS: MICONAZOLE 2% POWDER (DESENEX AF) 90 GM TOP PRN (14:22)
--- NOTE | 2020-05-23 14:22 | NUR ---
RD FOLLOW-UP Met with pt and family to discuss TF and oral feeding plan of care upon discharge. Provided instructions on how to bolus feed, flushing before and after each bolus feed, and balance of PO intake and TF. Discussed also pureed food and methods to create it at home or purchasing it at the grocery store. Provided contact information should pt or family have questions upon discharge. Alma Ansari MS, RD, LD
--- NOTE | 2020-05-23 16:23 | NUR ---
CM/SS DISCHARGE PLANNING Patient will discharge home tomorrow under the care of her family, their chosen paid caregiver(s), and home health services. HHC: Finalized with [facility] for RN, PT, OT, ST. DME: Orders finalized with [facility] for: Hospital Bed, Wheelchair, 3-in-1 Commode, Brielle Lift with sling, Thick and Easy, Jevity and equipment. Family to coordinate shower equipment according to what their bath will accommodate. TRANSPORT: Patient's wheelchair will be delivered to her room tomorrow a.m. to be utilized for Care Van transport at 1330 to her home. Staff to have patient down at Outpatient Entrance to meet Care Van. Family and caregiver(s) here for a.m. and p.m. education/training sessions today. Questions answered intermittently throughout the day. Complex process re discharge planning due to high care needs in the home and detailed resources to finalize. Followup in a.m. Addendum: 05/23/20 at 1658 by ANGEL FIGUEROA [place] does not have gravity bags for Jevity, will order for expedited delivery and deliver once arrived. Behavioral Health Specialist instructed RN's to send home 5 gravity bags with patient/family and passed along HME recommendations to rinse with HOT water if reusing but no detergents or chemicals.
[2020-05-23] MEDS: ALPRAZolam 0.25 MG (XANAX) TAB PO PRN (17:12)
[2020-05-23 18:00] VITALS: BP 163/85
--- NOTE | 2020-05-23 22:00 | NUR ---
PATIENT REFUSED TUBE FEEDING STATING, "I DON'T WANT THAT OR THIS TUBE." PATIENT DID EAT 75% OF SUPPER PER CHARTING RECORD.
[2020-05-24] MEDS: SENNA W/DOCUSATE (SENOKOT S) TABLET PO SCH ×2 (01:21→08:45)
[2020-05-24] MEDS: APIXABAN 5 MG (ELIQUIS) TABLET PO SCH ×2 (01:21→08:45)
[2020-05-24] MEDS: DOCUSATE SODIUM 100 MG (COLACE) CAP PO SCH ×2 (01:21→08:45)
[2020-05-24] MEDS: MICONAZOLE 2% POWDER (DESENEX AF) 90 GM TOP SCH ×2 (01:21→09:04)
[2020-05-24] MEDS: polyethylene glycoL POWDER 17 GM (MIRALAX) PACK PO SCH ×2 (01:21→09:04)
--- NOTE | 2020-05-24 05:37 | NUR ---
PATIENT REFUSED TUBE FEEDING THIS AM. STATED, "I JUST WANT TO GET HOME." PATIENT DID ALLOW TUBE FLUSH. NO DIFFICULTY NOTED.
--- NOTE | 2020-05-24 05:52 | Discharge Summary ---
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 Lord regarding Arana catheter discontinuation Continue crushed pills Continue Clinimix Living will and palliative care consult 05/08/20: Reconsult Dr. Lord since she is not ready for palliative care Discontinued Catheter monitor for retention Bowels are a bit loose hold laxatives Peg tube will be required so will consult general surgery on that 05/09/20: PEG to placement per Dr. 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 05/10/20: Arana cath DC and she is able to empty with some incontinence appreciate Dr Mckinney PEG today Will DC IVF once PEG functioning Monitor closely 05/11/20: PEG tube for nutrition and fluids DC Clinimix Duonebs to dry up upper airway secretions 05/12/20: Maintain PEG tube feedings and free water Continue to use swallowing and ST to work with her for that to become stronger 05/13/20: Lab reviewed Monitor BP Nebs TF tolerated and change to bolus feeds 05/14/20: Increase oral food intake Maintain tube feedings Continue aggressive therapy 05/15/20: Supportive care for groin rash Monitor residule tube feedings Bowels are moving well Unsure of disposition plan 05/16/20: Increase food intake Two feedings providing calories Bowels are moving well 05/17/20: Encourage oral nutrition Work on getting spoon to her mouth Bowels are moving well 05/18/20: Increase po nutrition Maintain TF for calories Nebs maintained 05/19/20: Monitor dysphagia TF maintained No more skilled days left so unsure of disposition 05/20/20: Labs reviewed Bowels moved yesterday Aphasia continues Wants to go home desperately 05/21/20: Discharge on Wednesday Family training Social work to arrange everything for home since she refuses to go to a [place] health care facility 05/22/20: Discharge Wednesday Family education on Monitor closely 05/23/20; Discharge home tomorrow Tube feedings per dietary consultation Monitor closely Discharge Summary Discharge Physical Examination Allergies: Coded Allergies: Sulfa (Sulfonamide Antibiotics) (Verified Allergy, Unknown, 12/27/17) Vitals & I&Os Vital Signs Date Time Temp Pulse Resp B/P (MAP) Pulse Ox O2 Delivery O2 Flow Rate FiO2 05/24/20 09:00 Room Air 05/24/20 07:52 93 05/24/20 06:38 36.2 93 20 149/84 (105) General Appearance: Alert, Oriented X3 Respiratory: Normal Air Movement Hospital Course Was the Problem List Reviewed?: Yes Patient had a very lengthy hospital course for three weeks in rehab after catastrophic stroke. She was able to participate in all therapies but the severity of the stroke residual limited her recovery. Patient was maintained on all of her home medication including oral anticoagulants. Overall she did well even after peg tube feedings were initiated for dysphasia and unable to keep up with her caloric requirement. Patient denied any pain her bowels were moving well vital signs remain stable and overall she was discharged in improved condition but she had no skilled days left and family requested her to be sent home with home health and tube feedings. Labs (last 24 hrs) Laboratory Tests 05/04/20 05:11: White Blood Count 13.2H, Red Blood Count 4.85, Hemoglobin 14.5, Hematocrit 44, Mean Corpuscular Volume 91, Mean Corpuscular Hemoglobin 30, Mean Corpuscular Hemoglobin Concent 33, Red Cell Distribution Width 14.3, Platelet Count 331, Mean Platelet Volume 10.4, Neutrophils (%) (Auto) 77H, Lymphocytes (%) (Auto) 13, Monocytes (%) (Auto) 7, Eosinophils (%) (Auto) 2, Basophils (%) (Auto) 0, Neutrophils # (Auto) 10.2H, Lymphocytes # (Auto) 1.8, Monocytes # (Auto) 1.0, Eosinophils # (Auto) 0.2, Basophils # (Auto) 0.0, Sodium Level 142, Potassium Level 4.1, Chloride Level 106, Carbon Dioxide Level 24, Anion Gap 12, Blood Urea Nitrogen 36H, Creatinine 0.75, Estimat Glomerular Filtration Rate > 60, BUN/Creatinine Ratio 48, Glucose Level 124H, Calcium Level 9.4, Corrected Calcium 9.8, Total Bilirubin 1.2H, Aspartate Amino Transf (AST/SGOT) 25, Alanine Aminotransferase (ALT/SGPT) 18, Alkaline Phosphatase 118, Total Protein 7.1, Albumin 3.5 05/06/20 05:15: White Blood Count 10.5, Red Blood Count 4.42, Hemoglobin 13.2, Hematocrit 41, Mean Corpuscular Volume 92, Mean Corpuscular Hemoglobin 30, Mean Corpuscular Hemoglobin Concent 33, Red Cell Distribution Width 13.6, Platelet Count 235, Mean Platelet Volume 11.0H, Neutrophils (%) (Auto) 75, Lymphocytes (%) (Auto) 13, Monocytes (%) (Auto) 9, Eosinophils (%) (Auto) 3, Basophils (%) (Auto) 0, Neutrophils # (Auto) 7.9H, Lymphocytes # (Auto) 1.3, Monocytes # (Auto) 0.9, Eosinophils # (Auto) 0.3, Basophils # (Auto) 0.0, Sodium Level 139, Potassium Level 4.5, Chloride Level 106, Carbon Dioxide Level 24, Anion Gap 9, Blood Urea Nitrogen 26H, Creatinine 0.67, Estimat Glomerular Filtration Rate > 60, BUN/Creatinine Ratio 39, Glucose Level 106H, Calcium Level 9.1, Corrected Calcium 9.7, Total Bilirubin 1.0, Aspartate Amino Transf (AST/SGOT) 36H, Alanine Aminotransferase (ALT/SGPT) 36, Alkaline Phosphatase 108, Total Protein 6.4, Albumin 3.3, B-Type Natriuretic Peptide 166.2H 05/11/20 05:50: White Blood Count 14.8H, Red Blood Count 4.60, Hemoglobin 13.7, Hematocrit 42, Mean Corpuscular Volume 91, Mean Corpuscular Hemoglobin 30, Mean Corpuscular Hemoglobin Concent 33, Red Cell Distribution Width 13.7, Platelet Count 339, Mean Platelet Volume 10.9H, Neutrophils (%) (Auto) 80H, Lymphocytes (%) (Auto) 10L, Monocytes (%) (Auto) 8, Eosinophils (%) (Auto) 1, Basophils (%) (Auto) 0, Neutrophils # (Auto) 11.9H, Lymphocytes # (Auto) 1.5, Monocytes # (Auto) 1.2H, Eosinophils # (Auto) 0.1, Basophils # (Auto) 0.0, Sodium Level 139, Potassium Level 4.4, Chloride Level 103, Carbon Dioxide Level 25, Anion Gap 11, Blood Urea Nitrogen 29H, Creatinine 0.83, Estimat Glomerular Filtration Rate > 60, BUN/Creatinine Ratio 35, Glucose Level 123H, Calcium Level 9.5, Corrected Calcium 10.0, Total Bilirubin 1.1H, Aspartate Amino Transf (AST/SGOT) 38H, Alanine Aminotransferase (ALT/SGPT) 62H, Alkaline Phosphatase 177H, Total Protein 6.8, Albumin 3.4, B-Type Natriuretic Peptide 237.1H, Neutrophils % (Manual) 78, Lymphocytes % (Manual) 10, Monocytes % (Manual) 5, Eosinophils % (Manual) 1, Band Neutrophils 6, Blood Morphology Comment NORMAL, Procalcitonin 0.14H 05/13/20 06:10: White Blood Count 9.9, Red Blood Count 4.41, Hemoglobin 12.9, Hematocrit 41, Mean Corpuscular Volume 93, Mean Corpuscular Hemoglobin 29, Mean Corpuscular Hemoglobin Concent 32, Red Cell Distribution Width 13.8, Platelet Count 282, Mean Platelet Volume 10.7H, Neutrophils (%) (Auto) 75, Lymphocytes (%) (Auto) 14, Monocytes (%) (Auto) 8, Eosinophils (%) (Auto) 3, Basophils (%) (Auto) 0, Neutrophils # (Auto) 7.4, Lymphocytes # (Auto) 1.4, Monocytes # (Auto) 0.8, Eosinophils # (Auto) 0.3, Basophils # (Auto) 0.0, Sodium Level 142, Potassium Level 3.9, Chloride Level 105, Carbon Dioxide Level 27, Anion Gap 10, Blood Urea Nitrogen 22H, Creatinine 0.75, Estimat Glomerular Filtration Rate > 60, BUN/Creatinine Ratio 29, Glucose Level 141H, Calcium Level 9.3, Corrected Calcium 9.9, Total Bilirubin 0.6, Aspartate Amino Transf (AST/SGOT) 48H, Alanine Aminotransferase (ALT/SGPT) 73H, Alkaline Phosphatase 216H, Total Protein 6.6, Albumin 3.3 05/20/20 06:00: White Blood Count 9.9, Red Blood Count 4.64, Hemoglobin 13.7, Hematocrit 42, Mean Corpuscular Volume 91, Mean Corpuscular Hemoglobin 30, Mean Corpuscular Hemoglobin Concent 33, Red Cell Distribution Width 13.6, Platelet Count 366, Mean Platelet Volume 11.6H, Neutrophils (%) (Auto) 70, Lymphocytes (%) (Auto) 17, Monocytes (%) (Auto) 7, Eosinophils (%) (Auto) 5, Basophils (%) (Auto) 0, Neutrophils # (Auto) 6.9, Lymphocytes # (Auto) 1.7, Monocytes # (Auto) 0.7, Eosinophils # (Auto) 0.5H, Basophils # (Auto) 0.0, Sodium Level 143, Potassium Level 3.7, Chloride Level 105, Carbon Dioxide Level 26, Anion Gap 12, Blood Urea Nitrogen 15, Creatinine 0.70, Estimat Glomerular Filtration Rate > 60, BUN/Creatinine Ratio 21, Glucose Level 104, Calcium Level 9.6, Corrected Calcium 10.2H, Total Bilirubin 0.5, Aspartate Amino Transf (AST/SGOT) 34, Alanine Aminotransferase (ALT/SGPT) 52, Alkaline Phosphatase 180H, Total Protein 6.8, Albumin 3.3 Microbiology 05/09/20 MRSA Screen - Final, Complete MRSA not isolated Pending Labs Microbiology Date/Time Source Procedure Growth Status 05/09/20 17:45 Nasal MRSA Screen - Final MRSA not isolated Complete Laboratory Tests 05/04/20 05:11: White Blood Count 13.2, Red Blood Count 4.85, Hemoglobin 14.5, Hematocrit 44, Mean Corpuscular Volume 91, Mean Corpuscular Hemoglobin 30, Mean Corpuscular Hemoglobin Concent 33, Red Cell Distribution Width 14.3, Platelet Count 331, Mean Platelet Volume 10.4, Neutrophils (%) (Auto) 77, Lymphocytes (%) (Auto) 13, Monocytes (%) (Auto) 7, Eosinophils (%) (Auto) 2, Basophils (%) (Auto) 0, Neutrophils # (Auto) 10.2, Lymphocytes # (Auto) 1.8, Monocytes # (Auto) 1.0, Eosinophils # (Auto) 0.2, Basophils # (Auto) 0.0, Sodium Level 142, Potassium Level 4.1, Chloride Level 106, Carbon Dioxide Level 24, Anion Gap 12, Blood Urea Nitrogen 36, Creatinine 0.75, Estimat Glomerular Filtration Rate > 60, BUN/Creatinine Ratio 48, Glucose Level 124, Calcium Level 9.4, Corrected Calcium 9.8, Total Bilirubin 1.2, Aspartate Amino Transf (AST/SGOT) 25, Alanine Aminotransferase (ALT/SGPT) 18, Alkaline Phosphatase 118, Total Protein 7.1, Albumin 3.5 05/06/20 05:15: White Blood Count 10.5, Red Blood Count 4.42, Hemoglobin 13.2, Hematocrit 41, Mean Corpuscular Volume 92, Mean Corpuscular Hemoglobin 30, Mean Corpuscular Hemoglobin Concent 33, Red Cell Distribution Width 13.6, Platelet Count 235, Mean Platelet Volume 11.0, Neutrophils (%) (Auto) 75, Lymphocytes (%) (Auto) 13, Monocytes (%) (Auto) 9, Eosinophils (%) (Auto) 3, Basophils (%) (Auto) 0, Neutrophils # (Auto) 7.9, Lymphocytes # (Auto) 1.3, Monocytes # (Auto) 0.9, Eosinophils # (Auto) 0.3, Basophils # (Auto) 0.0, Sodium Level 139, Potassium Level 4.5, Chloride Level 106, Carbon Dioxide Level 24, Anion Gap 9, Blood Urea Nitrogen 26, Creatinine 0.67, Estimat Glomerular Filtration Rate > 60, BUN/Creatinine Ratio 39, Glucose Level 106, Calcium Level 9.1, Corrected Calcium 9.7, Total Bilirubin 1.0, Aspartate Amino Transf (AST/SGOT) 36, Alanine Aminotransferase (ALT/SGPT) 36, Alkaline Phosphatase 108, Total Protein 6.4, Albumin 3.3, B-Type Natriuretic Peptide 166.2 05/11/20 05:50: White Blood Count 14.8, Red Blood Count 4.60, Hemoglobin 13.7, Hematocrit 42, Mean Corpuscular Volume 91, Mean Corpuscular Hemoglobin 30, Mean Corpuscular Hemoglobin Concent 33, Red Cell Distribution Width 13.7, Platelet Count 339, Mean Platelet Volume 10.9, Neutrophils (%) (Auto) 80, Lymphocytes (%) (Auto) 10, Monocytes (%) (Auto) 8, Eosinophils (%) (Auto) 1, Basophils (%) (Auto) 0, Neutrophils # (Auto) 11.9, Lymphocytes # (Auto) 1.5, Monocytes # (Auto) 1.2, Eosinophils # (Auto) 0.1, Basophils # (Auto) 0.0, Sodium Level 139, Potassium L evel 4.4, Chloride Level 103, Carbon Dioxide Level 25, Anion Gap 11, Blood Urea Nitrogen 29, Creatinine 0.83, Estimat Glomerular Filtration Rate > 60, BUN/Creatinine Ratio 35, Glucose Level 123, Calcium Level 9.5, Corrected Calcium 10.0, Total Bilirubin 1.1, Aspartate Amino Transf (AST/SGOT) 38, Alanine Aminotransferase (ALT/SGPT) 62, Alkaline Phosphatase 177, Total Protein 6.8, Al bumin 3.4, B-Type Natriuretic Peptide 237.1, Neutrophils % (Manual) 78, Lymphocytes % (Manual) 10, Monocytes % (Manual) 5, Eosinophils % (Manual) 1, Band Neutrophils 6, Blood Morphology Comment NORMAL, Procalcitonin 0.14 05/13/20 06:10: White Blood Count 9.9, Red Blood Count 4.41, Hemoglobin 12.9, Hematocrit 41, Mean Corpuscular Volume 93, Mean Corpuscular Hemoglobin 29, Mean Corpuscular Hemoglobin Concent 32, Red Cell Distribution Width 13.8, Platelet Count 282, Mean Platelet Volume 10.7, Neutrophils (%) (Auto) 75, Lymphocytes (%) (Auto) 14, Monocytes (%) (Auto) 8, Eosinophils (%) (Auto) 3, Basophils (%) (Auto) 0, Neutrophils # (Auto) 7.4, Lymphocytes # (Auto) 1.4, Monocytes # (Auto) 0.8, Eosinophils # (Auto) 0.3, Basophils # (Auto) 0.0, Sodium Level 142, Potassium Level 3.9, Chloride Level 105, Carbon Dioxide Level 27, Anion Gap 10, Blood Urea Nitrogen 22, Creatinine 0.75, Estimat Glomerular Filtration Rate > 60, BUN/Creatinine Ratio 29, Glucose Level 141, Calcium Level 9.3, Corrected Calcium 9.9, Total Bilirubin 0.6, Aspartate Amino Transf (AST/SGOT) 48, Alanine Aminotransferase (ALT/SGPT) 73, Alkaline Phosphatase 216, Total Protein 6.6, Albumin 3.3 05/20/20 06:00: White Blood Count 9.9, Red Blood Count 4.64, Hemoglobin 13.7, Hematocrit 42, Mean Corpuscular Volume 91, Mean Corpuscular Hemoglobin 30, Mean Corpuscular Hemoglobin Concent 33, Red Cell Distribution Width 13.6, Platelet Count 366, Mean Platelet Volume 11.6, Neutrophils (%) (Auto) 70, Lymphocytes (%) (Auto) 17, Monocytes (%) (Auto) 7, Eosinophils (%) (Auto) 5, Basophils (%) (Auto) 0, Neutrophils # (Auto) 6.9, Lymphocytes # (Auto) 1.7, Monocytes # (Auto) 0.7, Eosinophils # (Auto) 0.5, Basophils # (Auto) 0.0, Sodium Level 143, Potassium Level 3.7, Chloride Level 105, Carbon Dioxide Level 26, Anion Gap 12, Blood Urea Nitrogen 15, Creatinine 0.70, Estimat Glomerular Filtration Rate > 60, BUN/Creatinine Ratio 21, Glucose Level 104, Calcium Level 9.6, Corrected Calcium 10.2, Total Bilirubin 0.5, Aspartate Amino Transf (AST/SGOT) 34, Alanine Aminotransferase (ALT/SGPT) 52, Alkaline Phosphatase 180, Total Protein 6.8, Albumin 3.3 Discharge Home Medications: Active Scripts Active Lotrimin AF (Miconazole Nitrate) 90 Gm Powder 0 Gm TOP BID PRN Lotrimin AF (Miconazole Nitrate) 90 Gm Powder 0 Gm TOP BID Alprazolam 0.25 Mg Tablet 0.25 Mg PO Q8H PRN Jevity 1.5 Hemant Liquid (Lactose-Reduced Food/Fiber) 237 Ml Liquid 237 Ml PO UD 5 cans daily with free water 75cc before and after giving Reported Hydroxyzine HCl 10 Mg Tablet 10 Mg PO TID PRN LAST FILLED 03-15-2020 #90 Aspirin 81 Mg Tab.chew 81 Mg PO DAILY Flax Seed Oil (Flaxseed Oil) 1,000 Mg Capsule 1,000 Mg PO DAILY [Instaflex] 1 Tab PO DAILY Levothyroxine Sodium 50 Mcg Tablet 50 Mcg PO DAILY Diltiazem 24Hr Cd (Diltiazem HCl) 240 Mg Cap.er.24h 240 Mg PO DAILY Tylenol 8 Hour (Acetaminophen) 650 Mg Tablet.er 1,300 Mg PO Q8H PRN Carvedilol 6.25 Mg Tablet 6.25 Mg PO BID Iprat-Albut 0.5-3(2.5) mg/3 ml (Ipratropium/Albuterol Sulfate) 3 Ml Ampul.neb 3 Ml NEB QID PRN Singulair (Montelukast Sodium) 10 Mg Tablet 10 Mg PO DAILY Atorvastatin Calcium 20 Mg Tablet 20 Mg PO HS Celexa (Citalopram Hydrobromide) 20 Mg Tablet 20 Mg PO HS Eliquis (Apixaban) 5 Mg Tablet 5 Mg PO BID Instructions to patient/family Please see electronic discharge instructions given to patient. Diagnosis/Problems Diagnosis/Problems (1) CVA (cerebral vascular accident) Qualifiers: Qualified Codes: I63.9 - Cerebral infarction, unspecified (2) EMPHYSEMA, UNSPECIFIED Status: Chronic (3) Denial about severity of illness (4) History of shingles (5) Uncontrolled hypertension Status: Acute (6) Aphasia (7) Debility Status: Acute (8) Hypoxia Status: Chronic (9) Dementia (10) Delirium (11) Memory loss (12) Paroxysmal atrial fibrillation Status: Chronic (13) Myopathy (14) Noncompliance with medication regimen Status: Chronic Clinical Quality Measures DVT/VTE Risk/Contraindication: Risk Factor Score Per Nursin RFS Level Per Nursing on Admit: 4+=Very High JEROME NEAL DO May 24, 2020 05:52
[2020-05-24 06:38] VITALS: BP 149/84
[2020-05-24] MEDS: RT-ALBUTEROL/IPRATROPIUM 3 ML (DUONEB) VIAL INH SCH (07:52)
[2020-05-24] MEDS: ASPIRIN 81 MG CHEW (CHILDREN'S ASA) PO SCH (08:44)
--- NOTE | 2020-05-24 13:30 | NUR ---
PATIENT'S COMES TO HOSPITAL TO SIGN PAPERWORK. PATIENT SITTING UP IN NEW W/C FOR TRANSPORT IN [facility]. DISCHARGE PAPERWORK AND ALL ITEMS SENT HOME WITH FOR FOLLOWUP. Addendum: 05/24/20 at 1347 by RAFA VALDEZ RN FOLLOWUP EDUCATION RE: PEG TUBE, AND FOLLOWUP APPOINTMENTS TO ALL DR OFFICES. VOICES UNDERSTANDING.
--- NOTE | 2020-05-24 13:42 | Therapy Team Discharge Summary ---
Therapy Discharge Summary Discharge Recommendations Date of Discharge Occupational Therapy Decreased Activ Tolerance, Decreased UE Strength, Impaired Bed Mobility, Impaired Cognition, Impaired Funct Balance, Impaired I ADL's, Impaired Self-Care Skills, Restricted Funct UE ROM Speech-Language Pathology Patient was admitted to the ARU s/p CVA. Patient received ST services for dsyphagia and speech. Patient was unable to consume adequate hydration and nutrition orally and received a PEG tube a week ago. Patient progressed with speech and swallowing. She is discharging to her home today with family. PT Physical Therapy Aides Teacher Goals Fdc Goals PT Fdc Goals Time Frame: Jun 08, 2020 Roll Left to Right (QC): 4 Sit to Lying (QC): 4 Lying-Sitting on Side/Bed(QC): 4 Sit to Stand (QC): 4 Chair/Yiz-rn-Immhi Xfer(QC): 4 Car Transfer (QC): 4 Does the Patient Walk: No and Walking Goal IS indicated Walk 10 feet (QC): 4 Walk 10ft-Uneven Surface(QC): 4 Walk 50ft with 2 Turns (QC): 4 Walk 150 ft (QC): 4 Does the Pt use WC or Scooter?: Yes Wheel 50 feet with 2 turns (QC: 4 1 Step (curb) (QC): 4 4 Steps (QC): 4 12 Steps (QC): 9 Picking up an Object (QC): 3 OT Fdc Goals Physical Therapy Aides Teacher Goals Time Frame: May 31, 2020 Eating (QC): 4 Oral Hygiene (QC): 4 Shower/Bathe Self (QC): 3 Upper Body Dressing (QC): 4 Lower Body Dressing (QC): 3 On/Off Footwear (QC): 3 Toileting Hygiene (QC): 3 Toilet/Commode Transfer (QC): 4 Additional Goals: 1-Demonstrate ADL Tasks, 2-Verbalize Understanding, 3- ImproveStrength/Rex 1=Demonstrate adherence to instructed precautions during ADL tasks. 2=Patient will verbalize/demonstrate understanding of assistive devices/modifications for ADL. 3=Patient will improve strength/tolerance for activity to enable patient to perform ADL's. Speech Physical Therapy Aides Teacher Goals Physical Therapy Aides Teacher Goals Patient will improve communication necessary for safety and daily living tasks with minimal assist. Patient will maintain adequate nutrition/hydration via safe, effective swallow function. YUE JARAMILLO May 24, 2020 13:42
--- NOTE | 2020-05-24 13:58 | Therapy Team Discharge Summary ---
Therapy Discharge Summary Discharge Recommendations Date of Discharge May 24, 2020 at 13:30 Physical Therapy Patient came to rehab following a CVA. Upon evaluation patient was dependent for all mobility, no ambulation. Patient has been performing bed mobility and transfer training, balance and endurance training, functional strengthening, WC mobility training, and education. 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 Now, patient performs bed mobility with max assist, supine <-> sit dependent, sit to stand and transfers, max assist. Patient is discharging from this facility today and will be discharged from PT at this time. Occupational Therapy Decreased Activ Tolerance, Decreased UE Strength, Impaired Bed Mobility, Impaired Cognition, Impaired Funct Balance, Impaired I ADL's, Impaired Self-Care Skills, Restricted Funct UE ROM PT Maintenance Mechanic Telephone Goals Maintenance Mechanic Telephone Goals PT Maintenance Mechanic Telephone Goals Time Frame: Jun 08, 2020 Roll Left to Right (QC): 4 Sit to Lying (QC): 4 Lying-Sitting on Side/Bed(QC): 4 Sit to Stand (QC): 4 Chair/Vrn-vf-Dcqae Xfer(QC): 4 Car Transfer (QC): 4 Does the Patient Walk: No and Walking Goal IS indicated Walk 10 feet (QC): 4 Walk 10ft-Uneven Surface(QC): 4 Walk 50ft with 2 Turns (QC): 4 Walk 150 ft (QC): 4 Does the Pt use WC or Scooter?: Yes Wheel 50 feet with 2 turns (QC: 4 1 Step (curb) (QC): 4 4 Steps (QC): 4 12 Steps (QC): 9 Picking up an Object (QC): 3 OT Maintenance Mechanic Telephone Goals Maintenance Mechanic Telephone Goals Time Frame: May 31, 2020 Eating (QC): 4 Oral Hygiene (QC): 4 Shower/Bathe Self (QC): 3 Upper Body Dressing (QC): 4 Lower Body Dressing (QC): 3 On/Off Footwear (QC): 3 Toileting Hygiene (QC): 3 Toilet/Commode Transfer (QC): 4 Additional Goals: 1-Demonstrate ADL Tasks, 2-Verbalize Understanding, 3- ImproveStrength/Rex 1=Demonstrate adherence to instructed precautions during ADL tasks. 2=Patient will verbalize/demonstrate understanding of assistive devices/modifications for ADL. 3=Patient will improve strength/tolerance for activity to enable patient to perform ADL's. Speech Maintenance Mechanic Telephone Goals Group Home Goals Patient will improve communication necessary for safety and daily living tasks with minimal assist. Patient will maintain adequate nutrition/hydration via safe, effective swallow function. XIAO COLEY PT May 24, 2020 13:58
--- NOTE | 2020-05-24 14:42 | NUR ---
CM/SS Patient discharged home as planned. [facility]: Finalized referral with [facility], they will open patient services tomorrow, 05/25/20. [facility] staff has communicated directly with RN about care plan. DME: Finalized signed orders with [facility], equipment and supplies were delivered to patient's home late a.m. Family members present to direct and assist. TRANSPORT: [facility] as scheduled. Multiple intermittent communications this a.m. with agencies and family. Spouse came to review discharge packet with RN and took patient belongings. IMM2 reviewed, explained, signed by spouse. Discharge in motion for 5 days, no intention to appeal voiced.
--- NOTE | 2020-05-24 15:29 | Therapy Team Discharge Summary ---
Therapy Discharge Summary Discharge Recommendations Date of Discharge May 24, 2020 at 13:30 Occupational Therapy Pt admitted to ARU, upon initial evaluation pt was dependent with all ADLS. OT tx with focus on neuromuscular reeducation, increasing independence and safety with ADLs, increasing BUE strength and functional endurance, sitting balance, and family training. At discharge pt required max assistance with feeding, showering and lower body dressing, and was dependent with oral hygiene, upper body dressing, footwear, and toileting. Although pt had slight functional gains, she did not meet any goals. Pt discharged from facility on this date, d/c from OT at this time. Decreased Activ Tolerance, Decreased UE Strength, Impaired Bed Mobility, Impaired Cognition, Impaired Funct Balance, Impaired I ADL's, Impaired Self-Care Skills, Restricted Funct UE ROM PT Conveyor Man Goals Conveyor Man Goals PT [facility] Goals Time Frame: Jun 08, 2020 Roll Left to Right (QC): 4 Sit to Lying (QC): 4 Lying-Sitting on Side/Bed(QC): 4 Sit to Stand (QC): 4 Chair/Phb-gg-Uyqke Xfer(QC): 4 Car Transfer (QC): 4 Does the Patient Walk: No and Walking Goal IS indicated Walk 10 feet (QC): 4 Walk 10ft-Uneven Surface(QC): 4 Walk 50ft with 2 Turns (QC): 4 Walk 150 ft (QC): 4 Does the Pt use WC or Scooter?: Yes Wheel 50 feet with 2 turns (QC: 4 1 Step (curb) (QC): 4 4 Steps (QC): 4 12 Steps (QC): 9 Picking up an Object (QC): 3 OT Conveyor Man Goals [facility] Goals Time Frame: May 31, 2020 Eating (QC): 4 (not met) Oral Hygiene (QC): 4 (not met) Shower/Bathe Self (QC): 3 (not met) Upper Body Dressing (QC): 4 (not met) Lower Body Dressing (QC): 3 (not met) On/Off Footwear (QC): 3 (not met) Toileting Hygiene (QC): 3 (not met) Toilet/Commode Transfer (QC): 4 (not met) Additional Goals: 1-Demonstrate ADL Tasks, 2-Verbalize Understanding, 3-Improve Strength/Rex 1=Demonstrate adherence to instructed precautions during ADL tasks. 2=Patient will verbalize/demonstrate understanding of assistive devices/modifications for ADL. 3=Patient will improve strength/tolerance for activity to enable patient to pe rform ADL's. Speech Conveyor Man Goals Conveyor Man Goals Patient will improve communication necessary for safety and daily living tasks with minimal assist. Patient will maintain adequate nutrition/hydration via safe, effective swallow function. SAY ROMANO OT May 24, 2020 15:29
== END 2020-05-24 13:30 | disposition home health service (06) | DRG 57 ==
PROVIDERS: ADMIT Internal Medicine; ATTEND Internal Medicine
DX: I69.351 Hemiplegia and hemiparesis following cerebral infarction affecting right dominant side (principal); I50.42 Chronic combined systolic (congestive) and diastolic (congestive) heart failure; I69.320 Aphasia following cerebral infarction; I69.391 Dysphagia following cerebral infarction; R13.10 Dysphagia, unspecified; I69.392 Facial weakness following cerebral infarction; J43.9 Emphysema, unspecified; I48.0 Paroxysmal atrial fibrillation; I11.0 Hypertensive heart disease with heart failure; I27.20 Pulmonary hypertension, unspecified; I08.1 Rheumatic disorders of both mitral and tricuspid valves; G72.9 Myopathy, unspecified; I25.10 Atherosclerotic heart disease of native coronary artery without angina pectoris; E78.5 Hyperlipidemia, unspecified; R33.9 Retention of urine, unspecified; F03.90 Unspecified dementia, unspecified severity, without behavioral disturbance, psychotic disturbance, mood disturbance, and anxiety; B37.2 Candidiasis of skin and nail; K21.9 Gastro-esophageal reflux disease without esophagitis; F41.9 Anxiety disorder, unspecified; F32.9 Major depressive disorder, single episode, unspecified; M06.9 Rheumatoid arthritis, unspecified; M19.91 Primary osteoarthritis, unspecified site; Z91.14 Patient's other noncompliance with medication regimen; Z87.891 Personal history of nicotine dependence; Z87.01 Personal history of pneumonia (recurrent); Z99.81 Dependence on supplemental oxygen; Z95.5 Presence of coronary angioplasty implant and graft; Z79.01 Long term (current) use of anticoagulants
CPT/HCPCS: 36415; 71045; 76937; 80053; 83880; 84145; 85007; 85025; 85027; 87081; 94640; 94664; 94760

== ENCOUNTER → 2020-05-10 | Day surgery (SDC) | payer MEDICARE, OTHER ==
[~2020-05-10] MED LIST changes: -BISACODYL 10 MG SUPP (DULCOLAX) PR PRN; -CALCIUM CARBONATE 500 MG (TUMS) TAB.CHEW PO PRN; -DOCUSATE SODIUM 100 MG (COLACE) CAP PO PRN; -FLEET ENEMA ADULT 1 EA BTL PR PRN; -LACTULOSE SYRUP 10GM/15ML (ENULOSE) 30ML UDC PO PRN; -LOPERAMIDE 2 MG (IMODIUM) TABLET PO PRN; -ONDANSETRON 4 MG (ZOFRAN) ORAL DISSOLVE TAB PO PRN; -diphenhydrAMINE 25 MG TAB (BENADRYL) PO PRN; -guaiFENesin/CODEINE (ROBITUSSIN AC) 10ML UDC PO PRN
[2020-05-10 16:25] VITALS: BP 89/44
[2020-05-10 16:30] VITALS: BP 98/51
[2020-05-10 16:35] VITALS: BP 89/60
[2020-05-10 16:40] VITALS: BP 102/56
[2020-05-10 16:45] VITALS: BP 137/81
[2020-05-10 16:50] VITALS: BP 133/81
--- NOTE | 2020-05-11 03:51 | OPERATIVE REPORT ---
DATE OF SERVICE: 05/10/2020 PREOPERATIVE DIAGNOSES: Dysphagia, aspiration, history of stroke. POSTOPERATIVE DIAGNOSES: Dysphagia, aspiration, history of stroke. PROCEDURE: Gastrostomy tube placement. SURGEON: Nathaniel Le DO CABINET FINISHER: Salo Domingo DO ANESTHESIA: IV sedation by the PARKING SUPERVISOR. SPECIMENS: None. BLOOD LOSS: Scant. FLUIDS: Per anesthesia. POSTOPERATIVE CONDITION: Stable. INDICATION FOR PROCEDURE: The patient is a 74-year-old female who unfortunately has dysphagia with aspiration secondary to a stroke and is unable to take oral food and so needs a gastrostomy tube for feeding and nutrition. FINDINGS: The patient had a gastrostomy tube placed with endoscopy assistance. PROCEDURE NOTE: After informed consent was obtained, the patient was brought to the endoscopy suite. Dr. Domingo has performed an EGD and then elected to place a gastrostomy tube. The abdomen was sterilely prepped and draped in normal fashion. Local lidocaine was used to infiltrate the skin between the umbilicus and the rib, able to push on the stomach and see this coming into the stomach. Dr. Domingo had insufflated the stomach. Made a small stab incision with #11 blade and then advanced the needle without catheter into the stomach, went in easily. Dr. Domingo then grasped the catheter, removed the needle and then placed a guidewire using the Seldinger technique. Dr. Domingo was able to grasp the guidewire and pulled all the way out, attached the PEG tube to this guidewire and then I pulled this gently in. He followed it down. I pulled this all the way out and then attached the bolster and put some Betadine gel down, pulled it to about 3 to 3.5 cm. This was snug, but not too tight, able to still twist just a little bit and then cut off the distal portion of the tube and attached the locking mechanism and then the triple port. At this point, took down the dressing. Area was cleaned and dried, dressing placed and the tube was taped down. Dr. Domingo then finished his portion of the case. Job ID: [id number] DocumentID: [id number] Dictated Date: 05/10/2020 16:23:30 Roving Weight Gauger Date: 05/11/2020 03:50:50 Dictated By: NATHANIEL LE DO [facility]
== END | disposition home or self-care (01) ==
LOC: ENDO 14:30
PROVIDERS: ATTEND Surgery
DX: I69.391 Dysphagia following cerebral infarction (principal); R13.10 Dysphagia, unspecified; I69.398 Other sequelae of cerebral infarction; I69.351 Hemiplegia and hemiparesis following cerebral infarction affecting right dominant side; J44.9 Chronic obstructive pulmonary disease, unspecified; I11.0 Hypertensive heart disease with heart failure; I50.9 Heart failure, unspecified; I48.91 Unspecified atrial fibrillation; I25.10 Atherosclerotic heart disease of native coronary artery without angina pectoris; E78.00 Pure hypercholesterolemia, unspecified; K44.9 Diaphragmatic hernia without obstruction or gangrene; K21.9 Gastro-esophageal reflux disease without esophagitis; F41.9 Anxiety disorder, unspecified; F32.9 Major depressive disorder, single episode, unspecified; M06.9 Rheumatoid arthritis, unspecified; M54.9 Dorsalgia, unspecified; Z95.5 Presence of coronary angioplasty implant and graft; Z87.891 Personal history of nicotine dependence; Z79.01 Long term (current) use of anticoagulants; Z79.890 Hormone replacement therapy; Z79.899 Other long term (current) drug therapy

== ENCOUNTER 2020-07-17 15:30 | Emergency (ER) | payer MEDICARE, OTHER ==
[~2020-07-17] VITALS: Ht 172.7 cm; Wt 65.7 kg
[~2020-07-17 15:30] MED LIST changes: +ACET-2055 PO; -ACET650T13 PO; +ALPR.25T PO; -ALPR0.254 PO; +ASPI-1238 PO; -ASPI-983 PO; +LACT-72 PO; +MICO90PO TOP; +[UNRECOGNIZED DRUG - CODE] PO
--- NOTE | 2020-07-17 15:30 | NUR ---
Mei medina in [facility] - 07/17/20 at 1851 by VAISHALI UNABLE TO DO NIH DUE TO PTS PREVIOUS STROKES.
--- NOTE | 2020-07-17 15:38 | ED 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 Problem ---
General Stated Complaint: RULE OUT STROKE Source: patient, EMS History of Present Illness Date Seen by Provider: Jul 17, 2020 Time Seen by Provider: 15:38 Initial Comments 74-year-old female brought in with weakness. Patient has a history of strokes. S he has home physical therapy and home health care. Her home nurse noticed that about 3 days ago she started going backwards are not progressing as much is or physical therapy. Patient does have some facial droop but we are unsure if this is new over from a previous stroke. Patient was brought in by EMS reports the family does not does a lot of acute changes the day are aware of and is unsure about some of the 1 such as facial droop. They report that the home health care nurse called her primary care provider who wanted her sent in to be evaluated for acute stroke. Patient herself states she feels fine. There is no other history of present illness available Allergies and Home Medications Allergies Coded Allergies: Sulfa (Sulfonamide Antibiotics) (Verified Allergy, Unknown, 12/27/17) Home Medications ALPRAZolam 0.25 Mg Tablet, 0.25 MG PO Q8H PRN for ANXIETY Prescribed by: JEROME NEAL on 05/23/20 1045 Acetaminophen 650 Mg Tablet.er, 1,300 MG PO Q8H PRN for PAIN-MILD (1-4), (Reported) Apixaban 5 Mg Tablet, 5 MG PO BID, (Reported) Aspirin 81 Mg Tab.chew, 81 MG PO DAILY, (Reported) Atorvastatin Calcium 20 Mg Tablet, 20 MG PO HS, (Reported) Carvedilol 6.25 Mg Tablet, 6.25 MG PO BID, (Reported) Citalopram Hydrobromide 20 Mg Tablet, 20 MG PO HS, (Reported) Diltiazem HCl 240 Mg Cap.er.24h, 240 MG PO DAILY, (Reported) Flaxseed Oil 1,000 Mg Capsule, 1,000 MG PO DAILY, (Reported) Hydroxyzine HCl 10 Mg Tablet, 10 MG PO TID PRN for ANXIETY, (Reported) LAST FILLED 03-15-2020 #90 Ipratropium/Albuterol Sulfate 3 Ml Ampul.neb, 3 ML NEB QID PRN for SHORTNESS OF BREATH, (Reported) Lactose-Reduced Food/Fiber 237 Ml Liquid, 237 ML PO UD 5 cans daily with free water 75cc before and after giving Prescribed by: JEROME NEAL on 05/23/20 1044 Levothyroxine Sodium 50 Mcg Tablet, 50 MCG PO DAILY, (Reported) Miconazole Nitrate 90 Gm Powder, 0 GM TOP BID Prescribed by: JEROME NEAL on 05/23/20 1044 Miconazole Nitrate 90 Gm Powder, 0 GM TOP BID PRN for RASH Prescribed by: JEROME NEAL on 05/23/20 1044 Montelukast Sodium 10 Mg Tablet, 10 MG PO DAILY, (Reported) [Instaflex] , 1 TAB PO DAILY, (Reported) Patient Home Medication List Home Medication List Reviewed: Yes Review of Systems Review of Systems Constitutional: see HPI, weakness Eyes: No Symptoms Reported Ears, Nose, Mouth, Throat: no symptoms reported Respiratory: no symptoms reported Cardiovascular: no symptoms reported Gastrointestinal: no symptoms reported Genitourinary: no symptoms reported Musculoskeletal: see HPI Skin: no symptoms reported Psychiatric/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: See HPI Past Otkuzhp-Uyfopb-Jilbmt Hx Past Med/Social Hx: Reviewed Nursing Past Med/Soc Hx Patient Social History Type Used: Cigarettes Former Smoker, Quit: Aug 27, 2004 2nd Hand Smoke Exposure: No Recent Hopitalizations: No Immunizations Up To Date Tetanus Booster (TDap): Unknown Date of Pneumonia Vaccine: Sep 17, 2015 Date of Influenza Vaccine: Jul 19, 2019 Seasonal Allergies Seasonal Allergies: No Past Medical History Surgeries: Yes (CARDIAC CATH X 3--STENTS X 4) Cardiac, Coronary Stent, Gallbladder, Tubal Ligation Respiratory: Yes Pneumonia, COPD Currently Using CPAP: No Currently Using BIPAP: No Cardiac: Yes (CHF; CARDIAC CATHS X 3 WITH STENTS X 4) Atrial Fibrillation, Coronary Artery Disease, High Cholesterol, Hypertension 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: No Dementia, Stroke 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 ) Loss of Vision: Denies Cancer: No Psychosocial: Yes Anxiety, Depression Integumentary: No Blood Disorders: No Adverse Reaction/Blood Tranf: No Family Medical History Cardiovascular disease 19 MOTHER Diabetes mellitus 19 MOTHER Hypertension 19 MOTHER No Pertinent Family Hx LONG HISTORY OF NON-COMPLIANCE Physical Exam Vital Signs Vital Signs - First Documented 07/17/20 15:30 Temp 36.4 Pulse 74 Resp 26 B/P (MAP) 142/91 (108) Pulse Ox 94 O2 Delivery Room Air Capillary Refill : Height, Weight, BMI Height: 5'4.00" Weight: 170lbs. 0oz. [id number]; 29.00 BMI Method:Stated General Appearance: WD/WN, no apparent distress Respiratory: lungs clear, normal breath sounds Cardiovascular: normal peripheral pulses, regular rate, rhythm Gastrointestinal: non tender, soft Neurologic/Psychiatric: alert, normal mood/affect Crainal Nerves: facial droop (mild right sided ), other Motor/Sensory: other (generalized motor weakness but moves all extremities ) Stroke NIH Stroke Scale Assessment Gaze: Partial Gaze Palsy (1), Total: Stroke Thrombolytic Exclusion Age 18 or Over: Yes Acute intenal hemorrhage: No History of CVA: No Uncontrolled Coagulation Defec: No Intracranial Hemorrhage: No Severe Hypertension: No GI or Bleed: No Subarachnoid Hemorrhage: No Intracranial Neoplasm/Aneurysm: No Oral Anticoagulants: Yes Surgery or Trauma: No Puncture of Non-Compressible V: No Recent CPR: No Diabetic Hemorrhagic Retinopat: No Organ Biopsy: No Recent Obstetric Delivery: No Glucose: No Significant Hepatic Dysfunctio: No NIH Stoke Scale >22: No Bacterial Endocarditis: No Pericarditis: No Improving Symptoms: Yes Platelets: No Progress/Results/Core Measures Results/Orders Lab Results Laboratory Tests Test 07/17/20 15:25 07/17/20 15:37 Range/Units Urine Color ORANGE Urine Clarity TURBID Urine pH 6.0 5-9 Urine Specific [place] 1.025 H 1.016-1.022 Urine Protein 2+ H NEGATIVE Urine Glucose (UA) NEGATIVE NEGATIVE Urine Ketones TRACE H NEGATIVE Urine Nitrite POSITIVE H NEGATIVE Urine Bilirubin NEGATIVE NEGATIVE Urine Urobilinogen 1.0 < = 1.0 MG/DL Urine Leukocyte Esterase 2+ H NEGATIVE Urine RBC (Auto) 3+ H NEGATIVE Urine RBC >100 H /HPF Urine WBC >100 H /HPF Urine Squamous Epithelial Cells NONE /HPF Urine Crystals NONE /LPF Urine Bacteria LARGE H /HPF Urine Casts NONE /LPF Urine Mucus NEGATIVE /LPF Urine Other /HPF Urine Culture Indicated YES White Blood Count 10.1 4.3-11.0 10^3/uL Red Blood Count 4.42 3.80-5.11 10^6/uL Hemoglobin 12.8 11.5-16.0 g/dL Hematocrit 40 35-52 % Mean Corpuscular Volume 90 80-99 fL Mean Corpuscular Hemoglobin 29 25-34 pg Mean Corpuscular Hemoglobin Concent 32 32-36 g/dL Red Cell Distribution Width 12.8 10.0-14.5 % Platelet Count 268 130-400 10^3/uL Mean Platelet Volume 10.1 9.0-12.2 fL Immature Granulocyte % (Auto) 0 % Neutrophils (%) (Auto) 71 42-75 % Lymphocytes (%) (Auto) 18 12-44 % Monocytes (%) (Auto) 8 0-12 % Eosinophils (%) (Auto) 3 0-10 % Basophils (%) (Auto) 1 0-10 % Neutrophils # (Auto) 7.1 1.8-7.8 10^3/uL Lymphocytes # (Auto) 1.8 1.0-4.0 10^3/uL Monocytes # (Auto) 0.8 0.0-1.0 10^3/uL Eosinophils # (Auto) 0.3 0.0-0.3 10^3/uL Basophils # (Auto) 0.1 0.0-0.1 10^3/uL Immature Granulocyte # (Auto) 0.0 0.0-0.1 10^3/uL Sodium Level 139 135-145 MMOL/L Potassium Level 3.5 L 3.6-5.0 MMOL/L Chloride Level 99 98-107 MMOL/L Carbon Dioxide Level 31 21-32 MMOL/L Anion Gap 9 5-14 MMOL/L Blood Urea Nitrogen 13 7-18 MG/DL Creatinine 0.77 0.60-1.30 MG/DL Estimat Glomerular Filtration Rate > 60 BUN/Creatinine Ratio 17 Glucose Level 83 70-105 MG/DL Calcium Level 9.0 8.5-10.1 MG/DL Corrected Calcium 9.5 8.5-10.1 MG/DL Total Bilirubin 1.5 H 0.1-1.0 MG/DL Aspartate Amino Transf (AST/SGOT) 24 5-34 U/L Alanine Aminotransferase (ALT/SGPT) 29 0-55 U/L Alkaline Phosphatase 145 H 40-136 U/L Total Protein 7.0 6.4-8.2 GM/DL Albumin 3.4 3.2-4.5 GM/DL My Orders Orders - JUDGE,VIBHA L DO Chest 1 View, Ap/Pa Only (07/17/20 15:38) Ct Head Wo-R/O Stroke (07/17/20 15:38) Cbc With Automated Diff (07/17/20 15:38) Comprehensive Metabolic Panel (07/17/20 15:38) Ua Culture If Indicated (07/17/20 15:38) Ceftriaxone For Iv Use (Rocephin For I (07/17/20 16:00) Ed Iv/Invasive Line Start (07/17/20 16:00) Ns Iv 500 Ml (Sodium Chloride 0.9%) (07/17/20 16:00) Urine Culture (07/17/20 15:25) Medications Given in ED Current Medications Medications Dose Ordered Sig/Kadeem Route Start Time Stop Time Status Last Admin Dose Admin Ceftriaxone Sodium 1000 mg/ Sterile Water 10 ml @ 200 mls/hr ONCE ONCE IV 07/17/20 16:00 07/17/20 16:02 DC 07/17/20 16:37 200 MLS/HR Sodium Chloride 500 ml @ 0 mls/hr Q0M ONCE IV 07/17/20 16:00 07/17/20 16:02 DC 07/17/20 16:26 500 MLS/HR Vital Signs/I&O 07/17/20 15:30 Temp 36.4 Pulse 74 Resp 26 B/P (MAP) 142/91 (108) Pulse Ox 94 O2 Delivery Room Air Progress Progress Note : Time: 16:[address] scan shows no signs of acute stroke. Patient's increased weakness over the last couple days is likely due to her significant urinary tract infection. Patient was given a Rocephin IV here in the ER. She will be discharged home on Keflex. Patient is stable upon discharge. They should follow- up with her primary care provider in approximally 3 days for recheck of her symptoms. Departure Impression Primary Impression: UTI (urinary tract infection) Qualified Codes: N30.01 - Acute cystitis with hematuria Disposition: HOME, SELF-CARE Condition: Stable Departure-Patient Inst. Referrals: JEROME NEAL DO (PCP/Family) Primary Care Physician Patient Instructions: Urinary Tract Infection, Adult (DC) Add. Discharge Instructions: Follow-up with her primary care provider in approximately 3 days for recheck of today symptoms Scripts Cephalexin (Keflex) 500 Mg Capsule 500 MG PO TID for 10 Days, #30 CAP Prov: VIBHA JUDGE DO 07/17/20 Copy Copies To 1: JEROME NEAL DO VIHBA JUDGE DO Jul 17, 2020 15:38
[2020-07-17 15:45] LABS: BASOPHILS # (AUTO) 0.1 10^3/uL (0.0-0.1); BASOPHILS % (AUTO) 1 % (0-10); EOSINOPHILS # (AUTO) 0.3 10^3/uL (0.0-0.3); EOSINOPHILS % (AUTO) 3 % (0-10); HEMATOCRIT 40 % (35-52); HEMOGLOBIN 12.8 g/dL (11.5-16.0); LYMPHOCYTES # (AUTO) 1.8 10^3/uL (1.0-4.0); LYMPHOCYTES % (AUTO) 18 % (12-44); MEAN CORPUSCULAR HEMOGLOBIN 29 pg (25-34); MEAN CORPUSCULAR HGB CONC 32 g/dL (32-36); MEAN CORPUSCULAR VOLUME 90 fL (80-99); MEAN PLATELET VOLUME 10.1 fL (9.0-12.2); MONOCYTES # (AUTO) 0.8 10^3/uL (0.0-1.0); MONOCYTES % (AUTO) 8 % (0-12); NEUTROPHILS # (AUTO) 7.1 10^3/uL (1.8-7.8); NEUTROPHILS % (AUTO) 71 % (42-75); PLATELET COUNT 268 10^3/uL (130-400); WHITE BLOOD COUNT 10.1 10^3/uL (4.3-11.0)
[2020-07-17 15:57] LABS: ALBUMIN 3.4 GM/DL (3.2-4.5)
[2020-07-17 15:58] LABS: CHLORIDE 99 MMOL/L (98-107); POTASSIUM 3.5 MMOL/L (3.6-5.0); SODIUM 139 MMOL/L (135-145)
[2020-07-17 16:00] LABS: GLUCOSE 83 MG/DL (70-105)
[2020-07-17] MEDS ORDERED: cefTRIAXone FOR IV USE 1,000 MG in WATER (STERILE) FOR INJECTION 10 ML IV ONE (16:00)
[2020-07-17] MEDS ORDERED: NS IV 500 ML 500 ML IV ONE (16:00)
--- NOTE | 2020-07-17 16:00 | NUR ---
URINE SHOWN TO URINE LIGHT BROWN AND THICK.
--- NOTE | 2020-07-17 16:00 | NUR ---
ASSUMED CARE OF PT. UNABLE TO COMPLETE NIH DUE TO PT'S PREVIOUS STROKES.
[2020-07-17 16:01] LABS: CARBON DIOXIDE 31 MMOL/L (21-32)
[2020-07-17 16:02] LABS: BILIRUBIN,TOTAL 1.5 MG/DL (0.1-1.0)
[2020-07-17 16:03] LABS: ALKALINE PHOSPHATASE 145 U/L (40-136)
[2020-07-17 16:04] LABS: CREATININE SERUM 0.77 MG/DL (0.60-1.30); GFR ESTIMATED > 60
[2020-07-17 16:05] LABS: BUN/CREATININE RATIO 17
[2020-07-17 16:07] LABS: ALANINE AMINOTRANSFERASE 29 U/L (0-55)
--- NOTE | 2020-07-17 16:15 | NUR ---
LAB CALLED ET STATES THERE IS NOT ENOUGH URINE FOR A SAMPLE ET ANOTHER ST CATH PERFORMED.
--- NOTE | 2020-07-17 16:21 | Diagnostic Imaging Report ---
INDICATION: Stroke symptoms and weakness. TECHNIQUE: Multiple contiguous axial images were obtained through the brain without the use of intravenous contrast. Auto Exposure Controls were utilized during the CT exam to meet ALARA standards for radiation dose reduction. COMPARISON: Comparison is made with 05/01/2020. FINDINGS: There are patchy low-density changes throughout the deep white matter compatible with chronic ischemic change. There are old lacunar infarcts in the left periventricular white matter and right caudate nucleus. These findings are unchanged compared to the prior study. There is no hemorrhage or mass effect or acute intracranial finding. Ventricles are nondilated. Calvarial windows show no acute bony abnormality. There is opacification of the right sphenoid sinus which is new compared to the previous study. IMPRESSION: Stable chronic changes in deep white matter and old lacunar infarcts, similar to 05/01/2020. No acute hemorrhage or acute intracranial finding. There is new opacification of the right sphenoid sinus, not present on 05/01/2020. Dictated by: Dictated on workstation # [id number]
--- NOTE | 2020-07-17 16:31 | Diagnostic Imaging Report ---
INDICATION: Weakness and possible stroke. TECHNIQUE/COMPARISON: A frontal chest was obtained at 4:05 PM and compared to 06/20/2020. FINDINGS: There is prominent cardiomegaly. There is mild central vascular prominence with chronic appearing increased interstitial markings which are similar to 06/20/2020. There is no new infiltrate or pleural fluid. IMPRESSION: Chronic cardiomegaly and central vascular prominence with chronic appearing increased interstitial markings. No acute consolidation or pleural fluid. Dictated by: Dictated on workstation # [id number]
[2020-07-17 16:34] LABS: CLARITY,URINE TURBID; COLOR,URINE ORANGE; GLUCOSE, URINE (UA) NEGATIVE (NEGATIVE); KETONES,URINE TRACE (NEGATIVE); LEUKOCYTE ESTERASE ,URINE 2+ (NEGATIVE); NITRITE,URINE POSITIVE (NEGATIVE); PROTEIN,URINE 2+ (NEGATIVE)
[2020-07-17 16:45] LABS: BACTERIA,URINE LARGE /HPF; BILIRUBIN,URINE NEGATIVE (NEGATIVE); RBC,URINE >100 /HPF; WBC,URINE >100 /HPF
[2020-07-17] MEDS ORDERED: CEPH-507 PO (16:53)
[2020-07-17 17:10] VITALS: BP 145/85
--- NOTE | 2020-07-17 17:10 | NUR ---
PT WAS A HARD ASSIST INTO HUSBANDS CAR. TALKED WITH HIM ABOUT CALLING RESCUE TO HELP HIM GET HER INTO THE HOUSE. STATES HE WILL CALL HIS ADULT CHILDREN TO HELP.
--- NOTE | 2020-07-17 18:45 | NUR ---
DAUGHTER CALLED ON THE PHONE. CONCERNED THAT WE SENT HER HOME WITH A DIAGNOSIS OF A UTI AND STATES SHE IS BEING TREATED FOR A UTI. ALSO CONCERNED WITH A WHEEZE IN HER CHEST. EXPLAINED TO HER THAT IF SHE SEEMS WORSE OR WOULD LIKE US TO SEE HER AGAIN TO BRING HER BACK OUT TO THE ER WE WOULD BE HAPPY TO SEE HER OR TO CALL DR GARCIA OFFICE IN THE AM FOR A FOLLOW UP APPTOINTMENT. DAUGHTER WOULD ALSO LIKE HER MOMS MEDICATION LIST BACK. TOLD HER I WOULD LEAVE IT AT THE BOOKING SUPERVISOR AND SHE COULD COME GET IT. MEDICATION LIST WHICH INCLUDED X2 PAPERS LEFT AT THE BOOKING SUPERVISOR.
== END 2020-07-17 17:10 | disposition home or self-care (01) ==
LOC: EDUNIT# 15:30 → ER 15:31
DX: N39.0 Urinary tract infection, site not specified (principal); I11.0 Hypertensive heart disease with heart failure; I50.9 Heart failure, unspecified; I48.91 Unspecified atrial fibrillation; I25.10 Atherosclerotic heart disease of native coronary artery without angina pectoris; E78.00 Pure hypercholesterolemia, unspecified; J44.9 Chronic obstructive pulmonary disease, unspecified; G89.29 Other chronic pain; M54.9 Dorsalgia, unspecified; F41.9 Anxiety disorder, unspecified; F32.9 Major depressive disorder, single episode, unspecified; M06.9 Rheumatoid arthritis, unspecified; Z86.73 Personal history of transient ischemic attack (TIA), and cerebral infarction without residual deficits; Z88.2 Allergy status to sulfonamides; Z79.01 Long term (current) use of anticoagulants; Z79.82 Long term (current) use of aspirin; Z87.891 Personal history of nicotine dependence; Z95.5 Presence of coronary angioplasty implant and graft; Z82.49 Family history of ischemic heart disease and other diseases of the circulatory system
CPT/HCPCS: 36415; 51701; 70450; 71045; 80053; 81000; 85025; 87077; 87088; 87186

== ENCOUNTER 2020-07-30 15:30 | Inpatient (IN) | payer MEDICARE, OTHER ==
[~2020-07-30] VITALS: Ht 162.5 cm; Wt 69.8 kg
[~2020-07-30 15:30] MED LIST changes: +CEPH-507 PO
--- NOTE | 2020-07-30 15:39 | ED General ---
General Stated Complaint: DEHYDRATION Source of Information: Patient Exam Limitations: No Limitations History of Present Illness Date Seen by Provider: Jul 30, 2020 Time Seen by Provider: 15:37 Initial Comments To ER with reports of reduced urine output, nausea vomiting chills. She gets home health. She is rehabbing from a stroke with subsequent right-sided deficit, she has a PEG tube. Timing/Duration: 1-2 Days Severity: Moderate Allergies and Home Medications Allergies Coded Allergies: Sulfa (Sulfonamide Antibiotics) (Verified Allergy, Unknown, 12/27/17) Home Medications ALPRAZolam 0.25 Mg Tablet, 0.25 MG PO Q8H PRN for ANXIETY Prescribed by: JEROME NEAL on 05/23/20 1045 Acetaminophen 650 Mg Tablet.er, 1,300 MG PO Q8H PRN for PAIN-MILD (1-4), (Reported) Apixaban 5 Mg Tablet, 5 MG PO BID, (Reported) Aspirin 81 Mg Tab.chew, 81 MG PO DAILY, (Reported) Atorvastatin Calcium 20 Mg Tablet, 20 MG PO HS, (Reported) Carvedilol 6.25 Mg Tablet, 6.25 MG PO BID, (Reported) Cephalexin 500 Mg Capsule, 500 MG PO TID Prescribed by: VIBHA JUDGE on 07/17/20 1653 Citalopram Hydrobromide 20 Mg Tablet, 20 MG PO HS, (Reported) Diltiazem HCl 240 Mg Cap.er.24h, 240 MG PO DAILY, (Reported) Flaxseed Oil 1,000 Mg Capsule, 1,000 MG PO DAILY, (Reported) Hydroxyzine HCl 10 Mg Tablet, 10 MG PO TID PRN for ANXIETY, (Reported) LAST FILLED 03-15-2020 #90 Ipratropium/Albuterol Sulfate 3 Ml Ampul.neb, 3 ML NEB QID PRN for SHORTNESS OF BREATH, (Reported) Lactose-Reduced Food/Fiber 237 Ml Liquid, 237 ML PO UD 5 cans daily with free water 75cc before and after giving Prescribed by: JEROME NEAL on 05/23/20 1044 Levothyroxine Sodium 50 Mcg Tablet, 50 MCG PO DAILY, (Reported) Miconazole Nitrate 90 Gm Powder, 0 GM TOP BID Prescribed by: JEROME NEAL on 05/23/20 1044 Miconazole Nitrate 90 Gm Powder, 0 GM TOP BID PRN for RASH Prescribed by: JEROME NEAL on 05/23/20 1044 Montelukast Sodium 10 Mg Tablet, 10 MG PO DAILY, (Reported) [Instaflex] , 1 TAB PO DAILY, (Reported) Patient Home Medication List Home Medication List Reviewed: Yes Review of Systems Review of Systems Constitutional: see HPI, chills, other (obtained from daughter) Respiratory: no symptoms reported Cardiovascular: no symptoms reported Gastrointestinal: nausea, vomiting Genitourinary: see HPI, decreased output Musculoskeletal: no symptoms reported Skin: no symptoms reported Psychiatric/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: No Symptoms Reported Hematologic/Lymphatic: No Symptoms Reported Past Jpgstpj-Wfkkoa-Mcjrgl Hx Patient Social History Type Used: Cigarettes Former Smoker, Quit: Aug 27, 2004 2nd Hand Smoke Exposure: No Recent Hopitalizations: Yes (april 2020-stroke) Immunizations Up To Date Tetanus Booster (TDap): Unknown Date of Pneumonia Vaccine: Sep 17, 2015 Date of Influenza Vaccine: Jul 19, 2019 Seasonal Allergies Seasonal Allergies: No Past Medical History Surgeries: Yes (CARDIAC CATH X 3--STENTS X 4) Cardiac, Coronary Stent, Gallbladder, Tubal Ligation Respiratory: Yes Pneumonia, COPD Currently Using CPAP: No Currently Using BIPAP: No Cardiac: Yes (CHF; CARDIAC CATHS X 3 WITH STENTS X 4) Atrial Fibrillation, Coronary Artery Disease, High Cholesterol, Hypertension 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: Yes Dementia, Stroke 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 ) Loss of Vision: Denies Cancer: No Psychosocial: Yes Anxiety, Depression Integumentary: No Blood Disorders: No Adverse Reaction/Blood Tranf: No Family Medical History Cardiovascular disease 19 MOTHER Diabetes mellitus 19 MOTHER Hypertension 19 MOTHER No Pertinent Family Hx LONG HISTORY OF NON-COMPLIANCE Physical Exam Vital Signs Vital Signs - First Documented 07/30/20 15:30 Temp 36.9 Pulse 100 Resp 18 B/P (MAP) 144/84 (104) Pulse Ox 100 O2 Delivery Room Air Capillary Refill : Height, Weight, BMI Height: 5'4.00" Weight: 170lbs. 0oz. 77.501688vg; 22.00 BMI Method:Stated General Appearance: No Apparent Distress, WD/WN Eyes: Bilateral Eye Normal Inspection, Bilateral Eye PERRL, Bilateral Eye EOMI HEENT: PERRL/EOMI, TMs Normal Neck: Full Range of Motion, Normal Inspection Respiratory: No Accessory Muscle Use, No Respiratory Distress Gastrointestinal: Non Tender, Soft Extremity: Normal Capillary Refill, Normal Inspection Neurologic/Psychiatric: Alert, Oriented x3 Skin: Normal Color, Warm/Dry Focused Exam Lactate Level 07/30/20 16:40: Lactic Acid Level Laboratory Tests Test 07/30/20 16:40 Progress/Results/Core Measures Suspected Sepsis SIRS Temperature: Pulse: Respiratory Rate: Laboratory Tests 07/30/20 15:45: White Blood Count 21.7H Blood Pressure / Mean: 07/30/20 16:40: Laboratory Tests 07/30/20 15:45: Creatinine 0.69, INR Comment 1.2, Platelet Count 315, Total Bilirubin 1.9H Results/Orders Lab Results Laboratory Tests Test 07/30/20 15:40 07/30/20 15:45 07/30/20 16:22 07/30/20 16:40 Range/Units Urine Color YELLOW Urine Clarity SL CLOUDY Urine pH 6.5 5-9 Urine Specific [place] 1.025 H 1.016-1.022 Urine Protein 2+ H NEGATIVE Urine Glucose (UA) NEGATIVE NEGATIVE Urine Ketones NEGATIVE NEGATIVE Urine Nitrite NEGATIVE NEGATIVE Urine Bilirubin 1+ H NEGATIVE Urine Urobilinogen 0.2 < = 1.0 MG/DL Urine Leukocyte Esterase TRACE H NEGATIVE Urine RBC (Auto) 3+ H NEGATIVE Urine RBC 25-50 H /HPF Urine WBC 5-10 H /HPF Urine Crystals PRESENT H /LPF Urine Amorphous Sediment FEW WALDEMAR URATES H /LPF Urine Bacteria TRACE /HPF Urine Casts PRESENT /LPF Urine Hyaline Casts 10-25 H /LPF Urine Mucus NEGATIVE /LPF Urine Culture Indicated YES White Blood Count 21.7 H 4.3-11.0 10^3/uL Red Blood Count 5.22 H 3.80-5.11 10^6/uL Hemoglobin 15.1 11.5-16.0 g/dL Hematocrit 47 35-52 % Mean Corpuscular Volume 90 80-99 fL Mean Corpuscular Hemoglobin 29 25-34 pg Mean Corpuscular Hemoglobin Concent 32 32-36 g/dL Red Cell Distribution Width 13.2 10.0-14.5 % Platelet Count 315 130-400 10^3/uL Mean Platelet Volume 10.0 9.0-12.2 fL Immature Granulocyte % (Auto) 1 % Neutrophils (%) (Auto) 88 H 42-75 % Lymphocytes (%) (Auto) 7 L 12-44 % Monocytes (%) (Auto) 3 0-12 % Eosinophils (%) (Auto) 0 0-10 % Basophils (%) (Auto) 0 0-10 % Neutrophils # (Auto) 19.2 H 1.8-7.8 10^3/uL Lymphocytes # (Auto) 1.6 1.0-4.0 10^3/uL Monocytes # (Auto) 0.7 0.0-1.0 10^3/uL Eosinophils # (Auto) 0.0 0.0-0.3 10^3/uL Basophils # (Auto) 0.1 0.0-0.1 10^3/uL Immature Granulocyte # (Auto) 0.1 0.0-0.1 10^3/uL Neutrophils % (Manual) 86 % Lymphocytes % (Manual) 10 % Monocytes % (Manual) 3 % Basophils % (Manual) 1 % Blood Morphology Comment NORMAL Prothrombin Time 15.8 H 12.2-14.7 SEC INR Comment 1.2 0.8-1.4 Sodium Level 140 135-145 MMOL/L Potassium Level 3.9 3.6-5.0 MMOL/L Chloride Level 99 98-107 MMOL/L Carbon Dioxide Level 29 21-32 MMOL/L Anion Gap 12 5-14 MMOL/L Blood Urea Nitrogen 14 7-18 MG/DL Creatinine 0.69 0.60-1.30 MG/DL Estimat Glomerular Filtration Rate > 60 BUN/Creatinine Ratio 20 Glucose Level 113 H 70-105 MG/DL Calcium Level 9.5 8.5-10.1 MG/DL Corrected Calcium 9.7 8.5-10.1 MG/DL Total Bilirubin 1.9 H 0.1-1.0 MG/DL Aspartate Amino Transf (AST/SGOT) 21 5-34 U/L Alanine Aminotransferase (ALT/SGPT) 23 0-55 U/L Alkaline Phosphatase 151 H 40-136 U/L Total Protein 7.6 6.4-8.2 GM/DL Albumin 3.7 3.2-4.5 GM/DL Procalcitonin 0.03 <0.10 NG/ML Coronavirus 2019 ([facility]) Negative Negative My Orders Orders - PRITCHETT,PETER J MANAGER DOCUMENTATION Chest 1 View, Ap/Pa Only (07/30/20 15:36) Blood Culture (07/30/20 15:36) Cbc With Automated Diff (07/30/20 15:36) Comprehensive Metabolic Panel (07/30/20 15:36) Protime With Inr (07/30/20 15:36) Ct Head Wo (07/30/20 15:36) Straight Cath (Urinary) (07/30/20 15:36) Ua Culture If Indicated (07/30/20 15:42) Manual Differential (07/30/20 15:45) Lactic Acid Analyzer (07/30/20 16:05) Urine Culture (07/30/20 15:40) Procalcitonin (Pct) (07/30/20 16:21) Covid 19 Inhouse Test (07/30/20 16:22) Cefepime Injection (Maxipime Injection) (07/30/20 16:30) Coronavirus Sars-Cov-2 So 2018 (07/30/20 17:16) Vital Signs/I&O 07/30/20 15:30 Temp 36.9 Pulse 100 Resp 18 B/P (MAP) 144/84 (104) Pulse Ox 100 O2 Delivery Room Air Capillary Refill : Diagnostic Imaging Diagonstic Imaging: Xray Plain Films/CT/US/NM/MRI: chest Comments NAME: KELLEY GARCIA [facility] REC#: [id number] PT STATUS: REG ER : 1945 PHYSICIAN: JACQUE PRITCHETT APRN ADMIT DATE: 07/30/20/ER Draft Date of Exam:07/30/20 CHEST 1 VIEW, AP/PA ONLY INDICATION: Cough Frontal chest obtained at 0353 p.m. and compared to 07/17/2020 Cardiomegaly is again noted. There is mild central vascular prominence. There are chronic appearing increased interstitial markings. There is no new consolidation or pneumothorax or pleural fluid. IMPRESSION: Cardiomegaly with stable chronic interstitial prominence. No new abnormality in the chest. Dictated on workstation # [id number] Dict: 07/30/20 1553 Trans: 07/30/20 1555 [facility] [id number] Interpreted by: GISELLE BECKHAM MD Electronically signed by: Departure Communication (Admissions) 1722-I spoke with her Michael , DO NOT RESUSCITATE status. WIll admit. advised him of visiting policy Impression Primary Impression: Dehydration Additional Impression: UTI (urinary tract infection) Disposition: ADMITTED INPATIENT Condition: Stable Admissions Decision to Admit Reason: Admit from ER (General) Decision to Admit/Date: Jul 30, 2020 Time/Decision to Admit Time: 17:23 Departure-Patient Inst. Referrals: JEROME NEAL DO (PCP/Family) Primary Care Physician JACQUE PRITCHETT APRN Jul 30, 2020 15:39
[2020-07-30 15:50] LABS: CLARITY,URINE SL CLOUDY; COLOR,URINE YELLOW; GLUCOSE, URINE (UA) NEGATIVE (NEGATIVE); KETONES,URINE NEGATIVE (NEGATIVE); LEUKOCYTE ESTERASE ,URINE TRACE (NEGATIVE); NITRITE,URINE NEGATIVE (NEGATIVE); PH,URINE 6.5 (5-9); PROTEIN,URINE 2+ (NEGATIVE)
[2020-07-30 15:52] LABS: BASOPHILS # (AUTO) 0.1 10^3/uL (0.0-0.1); BASOPHILS % (AUTO) 0 % (0-10); EOSINOPHILS % (AUTO) 0 % (0-10); HEMATOCRIT 47 % (35-52); HEMOGLOBIN 15.1 g/dL (11.5-16.0); LYMPHOCYTES # (AUTO) 1.6 10^3/uL (1.0-4.0); LYMPHOCYTES % (AUTO) 7 % (12-44); MEAN CORPUSCULAR HEMOGLOBIN 29 pg (25-34); MEAN CORPUSCULAR HGB CONC 32 g/dL (32-36); MEAN CORPUSCULAR VOLUME 90 fL (80-99); MONOCYTES # (AUTO) 0.7 10^3/uL (0.0-1.0); MONOCYTES % (AUTO) 3 % (0-12); NEUTROPHILS # (AUTO) 19.2 10^3/uL (1.8-7.8); NEUTROPHILS % (AUTO) 88 % (42-75); PLATELET COUNT 315 10^3/uL (130-400); WHITE BLOOD COUNT 21.7 10^3/uL (4.3-11.0)
--- NOTE | 2020-07-30 15:55 | Diagnostic Imaging Report ---
INDICATION: Cough Frontal chest obtained at 0353 p.m. and compared to 07/17/2020 Cardiomegaly is again noted. There is mild central vascular prominence. There are chronic appearing increased interstitial markings. There is no new consolidation or pneumothorax or pleural fluid. IMPRESSION: Cardiomegaly with stable chronic interstitial prominence. No new abnormality in the chest. Dictated by: Dictated on workstation # [id number]
[2020-07-30 16:04] LABS: ALBUMIN 3.7 GM/DL (3.2-4.5); CHLORIDE 99 MMOL/L (98-107); POTASSIUM 3.9 MMOL/L (3.6-5.0); SODIUM 140 MMOL/L (135-145)
[2020-07-30 16:05] LABS: CALCIUM 9.5 MG/DL (8.5-10.1)
[2020-07-30 16:06] LABS: GLUCOSE 113 MG/DL (70-105); TOTAL PROTEIN 7.6 GM/DL (6.4-8.2)
[2020-07-30 16:07] LABS: CARBON DIOXIDE 29 MMOL/L (21-32)
[2020-07-30 16:08] LABS: BILIRUBIN,TOTAL 1.9 MG/DL (0.1-1.0)
[2020-07-30 16:10] LABS: ALKALINE PHOSPHATASE 151 U/L (40-136); CREATININE SERUM 0.69 MG/DL (0.60-1.30); GFR ESTIMATED > 60
[2020-07-30 16:11] LABS: BUN/CREATININE RATIO 20
[2020-07-30 16:13] LABS: ALANINE AMINOTRANSFERASE 23 U/L (0-55)
[2020-07-30 16:13] LABS: AMORPHOUS SEDIMENT,UR FEW AMOR URATES /LPF; BACTERIA,URINE TRACE /HPF; RBC,URINE 25-50 /HPF
[2020-07-30 16:19] LABS: BILIRUBIN,URINE 1+ (NEGATIVE)
[2020-07-30 16:24] LABS: INR 1.2 (0.8-1.4); PROTHROMBIN TIME PATIENT 15.8 SEC (12.2-14.7)
[2020-07-30] MEDS ORDERED: CEFEPIME INJECTION 1,000 MG in WATER (STERILE) FOR INJECTION 10 ML IV ONE (16:30)
[2020-07-30 17:16] LABS: BASOPHILS % (MANUAL) 1 %; LYMPHOCYTES % (MANUAL) 10 %; MONOCYTES % (MANUAL) 3 %; NEUTROPHILS % (MANUAL) 86 %; RBC MORPH NORMAL
--- NOTE | 2020-07-30 17:30 | NUR ---
Johnny PRITCHETT APRN TALKED WITH
--- NOTE | 2020-07-30 17:52 | Diagnostic Imaging Report ---
PROCEDURE: CT head without contrast. TECHNIQUE: Multiple contiguous axial images were obtained through the brain without the use of intravenous contrast. Auto Exposure Controls were utilized during the CT exam to meet ALARA standards for radiation dose reduction. INDICATION: Confusion, dehydration, weakness. COMPARISON: 07/17/2020. FINDINGS: Chronic lacunar infarcts and age-related cerebral volume loss and chronic microvascular changes are again seen. There is no focus of acute ischemia or hemorrhage. There is no shift. No extra-axial fluid collection is seen. There is no skull fracture. Stable right sphenoid sinus disease is present. IMPRESSION: No acute intracranial abnormalities. Dictated by: Dictated on workstation # [id number]
--- NOTE | 2020-07-30 18:14 | NUR ---
UPDATE GIVEN TO ADRIAN ARCOS
--- NOTE | 2020-07-30 18:38 | NUR ---
KELLEY GARCIA admitted to room 415-1, with an admitting diagnosis of UTI/Sepsis, on 07/30/20 from ED, accompanied by staff.KELLEY GARCIA introduced to surroundings, call light, bed controls, phone, TV, temperature control, lights, meal times, smoking policy, visitor policy, side rail policy, bathrooms and showers. Patient Rights given to patient in the handbook. KELLEY GARCIA verbalizes understanding that [facility] is not responsible for the loss or damage to any personal effects or valuables that are kept in the patients posession during their hospitalization. KELLEY GARCIA verbalizes understanding of Interdisciplinary Patient Education. Patient and/or family were informed about the Rapid Response Team and its purpose.
[2020-07-30 18:40] VITALS: BP 174/98
[2020-07-30] MEDS: LACTATED RINGERS 1,000 ML IV SCH (19:50)
[2020-07-30] MEDS ORDERED: AZITHROMYCIN 500 MG/NS 250 ML IVPB IV SCH ×2 (20:00)
[2020-07-30 20:11] VITALS: BP 174/98
[2020-07-30] MEDS ORDERED: CALCIUM CARBONATE 500 MG (TUMS) TAB.CHEW PO PRN (21:00)
[2020-07-30] MEDS ORDERED: LOPERAMIDE 2 MG (IMODIUM) TABLET PO PRN (21:00)
[2020-07-30] MEDS ORDERED: DOCUSATE SODIUM 100 MG (COLACE) CAP PO PRN (21:00)
[2020-07-30] MEDS ORDERED: fentaNYL INJECTION 100 MCG/2 ML AMP IVP PRN (21:00)
[2020-07-30] MEDS ORDERED: MELATONIN 3 MG TABLET PO PRN (21:00)
[2020-07-30] MEDS ORDERED: ACETAMINOPHEN 500 MG TAB (TYLENOL) PO PRN (21:00)
[2020-07-30] MEDS ORDERED: HYDROcodone/APAP 5 MG/325 MG (LORTAB) TAB PO PRN (21:00)
[2020-07-30] MEDS ORDERED: ALPRAZolam 0.25 MG (XANAX) TAB PO PRN (21:00)
[2020-07-30] MEDS ORDERED: diphenhydrAMINE 25 MG TAB (BENADRYL) PO PRN (21:00)
--- NOTE | 2020-07-30 21:07 | NUR ---
Called warehouse selector and requested they attempt to insert a talbot catheter on the patient after two failed attempts. Sandy stated she would be up shortly.
[2020-07-30] MEDS: SENNA W/DOCUSATE (SENOKOT S) TABLET PO SCH (22:20)
[2020-07-30] MEDS: APIXABAN 5 MG (ELIQUIS) TABLET PO SCH (22:21)
[2020-07-31] VITALS (7 sets, daily range): BP systolic 125–174; BP diastolic 56–97
[2020-07-31 05:27] LABS: BASOPHILS # (AUTO) 0.1 10^3/uL (0.0-0.1); BASOPHILS % (AUTO) 0 % (0-10); EOSINOPHILS # (AUTO) 0.1 10^3/uL (0.0-0.3); EOSINOPHILS % (AUTO) 0 % (0-10); HEMATOCRIT 43 % (35-52); HEMOGLOBIN 13.8 g/dL (11.5-16.0); LYMPHOCYTES % (AUTO) 11 % (12-44); MEAN CORPUSCULAR HEMOGLOBIN 29 pg (25-34); MEAN CORPUSCULAR HGB CONC 32 g/dL (32-36); MEAN CORPUSCULAR VOLUME 90 fL (80-99); MEAN PLATELET VOLUME 10.5 fL (9.0-12.2); MONOCYTES # (AUTO) 0.9 10^3/uL (0.0-1.0); MONOCYTES % (AUTO) 5 % (0-12); NEUTROPHILS # (AUTO) 15.1 10^3/uL (1.8-7.8); NEUTROPHILS % (AUTO) 83 % (42-75); PLATELET COUNT 284 10^3/uL (130-400); WHITE BLOOD COUNT 18.2 10^3/uL (4.3-11.0)
[2020-07-31 05:57] LABS: ALANINE AMINOTRANSFERASE 19 U/L (0-55); ALBUMIN 3.2 GM/DL (3.2-4.5); ALKALINE PHOSPHATASE 120 U/L (40-136); BILIRUBIN,TOTAL 1.6 MG/DL (0.1-1.0); BUN/CREATININE RATIO 21; CALCIUM 9.2 MG/DL (8.5-10.1); CARBON DIOXIDE 29 MMOL/L (21-32); CHLORIDE 100 MMOL/L (98-107); CREATININE SERUM 0.73 MG/DL (0.60-1.30); GFR ESTIMATED > 60; GLUCOSE 110 MG/DL (70-105); POTASSIUM 3.9 MMOL/L (3.6-5.0); SODIUM 140 MMOL/L (135-145); TOTAL PROTEIN 6.7 GM/DL (6.4-8.2)
[2020-07-31] MEDS ORDERED: CEFEPIME 2,000 MG/SWFI 20 ML IV PUSH IV SCH ×2 (06:00)
[2020-07-31] MEDS: LACTATED RINGERS 1,000 ML IV SCH ×2 (06:03→17:43)
--- NOTE | 2020-07-31 08:49 | Occupational Therapy Eval ---
OT Evaluation-General/PLF Medical Diagnosis Admission Date Jul 30, 2020 at 17:32 Medical Diagnosis: UTI/sepsis Onset Date: Jul 30, 2020 Therapy Diagnosis Therapy Diagnosis: decreased ADL status, decreased functional mobility Height/Weight Height (Feet): 5 Height (Inches): 4.00 Weight (Pounds): 170 Weight (Ounces): 0 Precautions Precautions/Isolations: Fall Prevention, Standard Precautions Referral Physician: Ammon Referral Reason: Evaluation/Treatment Medical History Pertinent Medical History: Atrial Fib, Arthritis, CAD, COPD, Dementia, HTN, PR, Renal Insufficiency, Rheumatoid Arthritis Additional Medical History cardiac cath x3, stents x4, pneumonia, tubal ligation, COPD, CAD, Afib, HTN, RA, anxiety/depression Current History Pt to ED with decreased urine output, nausea, vomiting, chills. COVID-19 test negative. Pt had been receiving home health services and has a hx of stroke with R side deficits. Reviewed History: Yes Social History Home: Single Level Current Living Status: Spouse Entry Into Home: Stairs With Railing Steps Into Home: 4 ADL-Prior Level of Function SCALE: Activities may be completed with or without assistive devices. 0-Mryuundoja-dwrmciq completes the activity by him/herself with no assistance from a helper. 5-Set-up or Clean-up Assistance-helper sets up or cleans up; patient completes activity. [place] assists only prior to or following the activity. 4-Supervision or Touching Assistance-helper provides verbal cues and/or touching/steadying and/or contact guard assistance as patient completes activity. Assistance may be provided throughout the activity or intermittently. 3-Partial/Moderate Assistance-helper does LESS THAN HALF the effort. [place] lifts, holds or supports trunk or limbs, but provides less than half the effort. 2-Substantial/Maximal Assistance-helper does MORE THAN HALF the effort. [place] lifts or holds trunk or limbs and provides more than half the effort. 4-Qzfqylebo-sgnbxo does ALL the effort. Patient does none of the effort to compl ete the activity. Or, the assistance of 2 or more helpers is required for the patient to complete the activity. If activity was not attempted, code reason: 7-Patient Refused. 9-Not Applicable-not attempted and the patient did not perform the activity before the current illness, exacerbation or injury. 10-Not Attempted due to Environmental Limitations-(lack of equipment, weather restraints, etc.). 88-Not Attempted due to Medical Conditions or Safety Concerns. ADL PLOF Comments Pt indicates she required assistance with ADLs at PLOF, she states she was able to feed herself but required assistance with bathing and dressing. Pt did not provide information about level of assistance needed at home. Other aspects of PLOF unknown, pt did not respond when asked about DME/Equipment at home Self Care: Needed Some Help Functional Cognition: Needed Some Help OT Current Status Subjective Pt laying in bed attempting to eat breakfast, states she is very fatigued. Pt did not report any pain during tx. Mental Status/Objective Patient Orientation: Person, Place Attachments: IV Current Glasses/Contacts: Yes Hearing Aids: No Dentures/Partials: Yes Hand Dominance: Right Upper Extremity ROM Pt reports R UE does not work well due to stroke. LUE decreased ROM, pt had difficulty feeding herself during tx. Upper Extremity Coordination decreased BUEs Upper Extremity Strength grossly 2/5 ADL-Treatment Eating (QC): 2 (Max A with feeding. Pt required assistance with getting food onto utensils, hand over hand assist to bring fork to mouth. Pt also unable to lift glass to take a drink, once straw in place pt able to lean forward to take drink.) Other Treatments Pt laying in bed, eating breakfast with difficulty. Pt unable to get food onto utensils. Pt indicates she was able to do this at PLOF but feels very tired and weak. OT assisted pt with taking small bites of food. Pt coughed after taking small bites, nurse notified. Pt indicates she would like to lay down, head of bed lowered to pt's comfort. Pt indicates she has not been able to use her R side much since her stroke, call light placed on L side of pt. Post OT tx, pt laying in bed, call light in reach and all needs met. Education OT Patient Education: Correct positioning, Energy conservation, Modified ADL techniques, Progress toward Goal/Update tx plan, Purpose of tx/functional activities, Rehab process Teaching Recipient: Patient Teaching Methods: Discussion Response to Teaching: Verbalize Understanding OT Care Home Goals Care Home Goals Time Frame: Aug 09, 2020 Eating (QC): 5 Oral Hygiene (QC): 4 Toileting Hygiene (QC): 2 Shower/Bathe Self (QC): 2 Upper Body Dressing (QC): 3 Lower Body Dressing (QC): 2 On/Off Footwear (QC): 2 Additional Goals: 1-Demonstrate ADL Tasks, 2-Verbalize Understanding, 3- ImproveStrength/Rex 1=Demonstrate adherence to instructed precautions during ADL tasks. 2=Patient will verbalize/demonstrate understanding of assistive devices/modifications for ADL. 3=Patient will improve strength/tolerance for activity to enable patient to perform ADL's. OT Education/Plan Problem List/Assessment Assessment: Decreased Activ Tolerance, Decreased UE Strength, Impaired Funct Balance, Impaired I ADL's, Impaired Self-Care Skills, Restricted Funct UE ROM Pt would benefit from skilled OT in order to increase functional strength and endurance, and increase independence with ADLs to maximize LOF to return home with . Discharge Recommendations Plan/Recommendations: Continue POC Therapy Discharge Recommendati: Home & Family, Post Acute OT Treatment Plan/Plan of Care Patient would benefit from OT for education, treatment and training to promote independence in ADL's, mobility, safety and/or upper extremity function for ADL's. Plan of Care: ADL Retraining, Functional Mobility, UE Funct Exercise/Act Treatment Duration: Aug 09, 2020 Frequency: 5 times per week Estimated Hrs Per Day: .25 hour per day Rehab Potential: Fair Time/GCodes Start Time: 08:15 Stop Time: 08:38 Total Time Billed (hr/min): 23 Billed Treatment Time 1, EVM (10'), ADL (13') SAY ROMANO OT Jul 31, 2020 08:49
[2020-07-31] MEDS: APIXABAN 5 MG (ELIQUIS) TABLET PO SCH ×2 (09:02→21:23)
[2020-07-31] MEDS: SENNA W/DOCUSATE (SENOKOT S) TABLET PO SCH ×2 (09:02→21:23)
--- NOTE | 2020-07-31 09:20 | History & Physical-Hospitalist ---
History of Present Illness HPI/Chief Complaint CC: AMS with hypoxia and wheezing HPI: CC: Decline in status HPI: This is a 75yoWF clinic Pt of mine who has had a significant decline in status the last couple of years, more profoundly since the first of the year wi th a hip fracture and ultimately experienced a catastrophic embolic stroke after stopping her oral anticoagulation for four days. At this current time Pt is sleeping and doesnt want to be disturbed. CC: HPI: Ms. Lindsay Lee is a 74 y/o female with Hx of chronic A-fib, CHF and recent CVA w/ PEG tube placement who presents from the ER for UTI and dehydration. Patient has had multiple visits to the [facility] ER over the last three years for a wide range of issues spanning repiratory insufficiency secondary to COPD, recurrent pneumonia, Afib and CHF. Patient was seen earlier this year (11/02) for Herpes Zoster flare, closed L hip fracture on (12/31) for fall and subsequent screw fixation and L sided CVA occurring (05/01) following 4 days of noncompliance with her Eliquis (due to miscommunication per daughter). Patient had PEG tube placement shortly after this secondary to poor oral intake on (05/09). Patient was discharged home at personal insistance despite PT/OT recomendation for inpatient stay with home health. Patient was later seen on (06/20) for confusion and bradycardia, discharged with instructions for outpatient f/u with cardiology. Patient was discharged for ER on (07/17) for weakness secondary to UTI. Patient admitted now for decreased urine output, nausea, vomiting and chills; dx as UTI and dehydration, admitted for further management. PT/OT and Cardiology (Dr. Fischer) consulted. Patient is DNR. ROS: General: no fever, no chills HEENT: no headache, no eye pain Cardiac: irregular heartbeat, regular rate, no murmurs appreciated Respiratory: inspiratory and expiratory diffuse rhonchi GI: no abdominal pain, no vomiting, no diarrhea Urinary: no blood in urine, no change in frequency Extremities: no pain, no swelling Neuro: no dizziness, no LOC PMH: -Afib -CAD -CHF -COPD -HTN -HLD -L sided CVA -Dementia -L hip fracture -Rhematoid Arthritis -GERD -Herpes Zoster -Depression -Anxiety Family Hx: -CAD (mother) -DM (mother) -HTN (mother) Social Hx: -Hx smoking: quit 2003 Surgical Hx: -cardiac cahtheterization x3 -Cardiac stents x4 -Tubal ligation -cholecystectomy -PEG tube placement Allergies: -Sulfa drugs (unspecified reaction) Medications: -Acetaminophen -Alprazolam -Apixaban -Aspirin -Atorvastatin -Carvedilol -Diltiazam -Flaxseed oil -Hydroxyzine -Ipratropium/Albuterol -Levothyroxine -Miconazole -Montelukast -Instaflex Physical Exam: -General: Well appearing, WD/WN, sitting and talking comfortably -Head: No ecchymosis, no tenderness -Eyes: PERRL, EOMI -Nose: nares patent, no lesions -Heart: No appreciable murmurs (note: limited due to life vest), regular rate -Lungs: CTAB, no accessory muscle use, no respiratory distress -Abdomen: soft, nontender, nondistended -Extremities: normal peripheral pulses, 2+ pitting pedal edema -Neuro/Psych: alert, oriented Assessment: -Dehydration -UTI hyperproteinuria trace leukocyte esterase elevated urine RBCs/WBCs/hyaline casts -Elevated WBC (improving) -Elevated biliruben -hx CVA with PEG tube placement -Chronic Afib CAD CHF HTN HLD DM COPD Dementia Rhematoid Arthritis GERD Depression Anxiety -hx smoking: resolved -Hx Herpes Zoster: resolved Plan: -IV Fluids -Azithromycin -Pain management PRN -Consult PT/OT -Consult Cardiology -Dysphagia evaluation -Maintain home medications -Monitor labs OTF BREAUX STUDENT Source: patient Exam Limitations: clinical condition Date Seen 07/31/20 Time Seen by a Provider: 10:00 Attending Physician Terese Neal DO PCP Terese Neal DO Referring Physician Date of Admission Jul 30, 2020 at 17:32 Home Medications & Allergies Home Medications Reviewed patient Home Medication Reconciliation performed by pharmacy medication reconciliations tar processing technician and/or nursing. Patients Allergies have been reviewed. Allergies Allergies Coded Allergies Sulfa (Sulfonamide Antibiotics) (Verified Allergy, Unknown, 12/27/17) Past Xrtgkgq-Xexaqf-Ldmsoe Hx Past Med/Social Hx: Reviewed Nursing Past Med/Soc Hx, Reviewed and Corrections made Patient Social History Marrital Status: Employed/Student: retired Alcohol Use: Denies Use Recreational Drug Use: No Smoking Status: Former Smoker Former Smoker, Quit: Aug 27, 2004 Type Used: Cigarettes 2nd Hand Smoke Exposure: No Recent Hopitalizations: Yes (april 2020-stroke) Immunizations Up To Date Tetanus Booster (TDap): Unknown Date of Pneumonia Vaccine: Sep 17, 2015 Date of Influenza Vaccine: Jul 19, 2019 Seasonal Allergies Seasonal Allergies: No Past Medical History Surgeries: Cardiac, Coronary Stent, Gallbladder, Tubal Ligation Respiratory: Chronic Bronchitis, COPD, Emphysema, Pneumonia Currently Using CPAP: No Currently Using BIPAP: No Cardiac: Atrial Fibrillation, Coronary Artery Disease, High Cholesterol, Hyper tension 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: Dementia, Stroke : No Sexually Transmitted Disease: No HIV/AIDS: No Menopausal Genitourinary: Bladder Infection Gastrointestinal: Gastroesophageal Reflux Musculoskeletal: Arthritis, Rheumatoid Arthritis, Chronic Back Pain Loss of Vision: Denies Psychosocial: Anxiety, Depression History of Blood Disorders: No Adverse Reaction to Blood Sousa: No Family History Cardiovascular disease 19 MOTHER Diabetes mellitus 19 MOTHER Hypertension 19 MOTHER No Pertinent Family Hx LONG HISTORY OF NON-COMPLIANCE Review of Systems Constitutional: see HPI, weakness Respiratory: dyspnea on exertion Psychiatric/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: Other (confusion) Physical Exam Physical Exam Vital Signs Vital Signs - First Documented 07/30/20 15:30 Temp 36.9 Pulse 100 Resp 18 B/P (MAP) 144/84 (104) Pulse Ox 100 O2 Delivery Room Air Capillary Refill : Less Than 3 Seconds Height, Weight, BMI Height: 5'4.00" Weight: 170lbs. 0oz. [id number]; 26.43 BMI Method:Stated General Appearance: No Apparent Distress, WD/WN, Chronically ill Eyes: Right Eye Normal Inspection, Right Eye PERRL HEENT: Other (won't open eyes of mouth) Neck: Full Range of Motion, Normal Inspection Respiratory: Chest Non Tender, Normal Breath Sounds, No Accessory Muscle Use, No Respiratory Distress, Decreased Breath Sounds Cardiovascular: Regular Rate, Rhythm, No Edema, No Gallop, No JVD, No Murmur, Normal Peripheral Pulses Gastrointestinal: Normal Bowel Sounds, No Organomegaly, No Pulsatile Mass, Non Tender, Soft Back: Normal Inspection, No CVA Tenderness, No Vertebral Tenderness Extremity: Normal Capillary Refill, Normal Inspection, Normal Range of Motion, Non Tender, No Calf Tenderness, No Pedal Edema Neurologic/Psychiatric: No Motor/Sensory Deficits, Depressed Affect, Disoriented, Motor Weakness (generalized all extremities) Skin: Normal Color, Warm/Dry Lymphatic: No Adenopathy Results Results/Procedures Labs Laboratory Tests 07/30/20 15:45 07/31/20 04:55 Patient resulted labs reviewed. Assessment/Plan Admission Diagnosis Assessment: AMS Fever Hypoxia AECOPD Acute bronchitis AF CVA with dysphagia and dysarthria HTN CAD RA Plan: IV abx Supportive care PT OT ST PEG tube to be used if necessary Admission Status: Inpatient Order (span 2 midnights) Reason for Inpatient Admission: ams with cva hx Diagnosis/Problems Diagnosis/Problems (1) Delirium (2) COPD exacerbation Status: Acute (3) Hypoxia Status: Chronic (4) Paroxysmal atrial fibrillation Status: Chronic (5) Debility Status: Acute (6) Aphasia (7) Uncontrolled hypertension Status: Acute (8) History of shingles (9) UTI (urinary tract infection) TERESE NEAL DO Jul 31, 2020 09:20
[2020-07-31] MEDS ORDERED: cloNIDine 0.1 MG (CATAPRES) TAB PO PRN (09:30)
[2020-07-31] MEDS ORDERED: amLODIPine 5 MG (NORVASC) TAB PO NR (09:30)
--- NOTE | 2020-07-31 10:09 | Physical Therapy Evaluation ---
PT Evaluation-General Medical Diagnosis Admission Date Jul 30, 2020 at 17:32 Medical Diagnosis: UTI/sepsis Onset Date: Jul 30, 2020 Therapy Diagnosis Therapy Diagnosis: Impaired mobility and strength Height/Weight Height (Feet): 5 Height (Inches): 4.00 Weight (Pounds): 170 Weight (Ounces): 0 Precautions Precautions/Isolations: Fall Prevention, Standard Precautions Referral Physician: Ammon Reason for Referral: Evaluation/Treatment Medical History Pertinent Medical History: Atrial Fib, Arthritis, CAD, COPD, Dementia, HTN, SD, Renal Insufficiency, Rheumatoid Arthritis Reviewed History: Yes Social History Home: Single Level Current Living Status: Spouse Entry Into Home: Ramp, Stairs With Railing PT Steps Into Home: 4 Prior Prior Level of Function SCALE: Activities may be completed with or without assistive devices. 5-Aefqsebebf-bjvizgy completes the activity by him/herself with no assistance from a helper. 5-Set-up or Clean-up Assistance-helper sets up or cleans up; patient completes activity. [place] assists only prior to or following the activity. 4-Supervision or Touching Assistance-helper provides verbal cues and/or touching/steadying and/or contact guard assistance as patient completes activity. Assistance may be provided throughout the activity or intermittently. 3-Partial/Moderate Assistance-helper does LESS THAN HALF the effort. [place]ry lifts, holds or supports trunk or limbs, but provides less than half the effort. 2-Substantial/Maximal Assistance-helper does MORE THAN HALF the effort. [place] lifts or holds trunk or limbs and provides more than half the effort. 4-Milhhjecd-tinjei does ALL the effort. Patient does none of the effort to complete the activity. Or, the assistance of 2 or more helpers is required for the patient to complete the activity. If activity was not attempted, code reason: 7-Patient Refused. 9-Not Applicable-not attempted and the patient did not perform the activity before the current illness, exacerbation or injury. 10-Not Attempted due to Environmental Limitations-(lack of equipment, weather restraints, etc.). 88-Not Attempted due to Medical Conditions or Safety Concerns. Bed Mobility: 3 Transfers (B,C,W/C): 3 Wheelchair Mobility: 3 Indoor Mobility (Ambulation): Unknown Stairs: Needed Some Help Prior Devices Use: Manual wheelchair, Walker Pt unclear on the amount of assistance she needed prior. Pt she utilized a walker and wheelchair at times, and need some help getting in and out of bed but was not clear on how much. PT Evaluation-Current Subjective Pt presents laying supine in bed. Pt agrees to PT but refuses to get out of bed, agrees to sitting on the side of the bed. Pt voices no complaints of pain. Pt/Family Goals Return home Objective Patient Orientation: Person, Unable to Assess, Mumbles Attachments: Arana Catheter, IV ROM/Strength ROM Lower Extremities WFL Strength Lower Extremities R knee ext 4+/5 L knee ext 4/5 Other strengths were not tested due to patient's position and limited comprehension. Sensory Hand Dominance: Right Sensation Lower Extremities BLE Sensation appeared intact but assessment was unclear due to patient's limited comprehension and participation in the task. Transfers Sit to Lying (QC): 2 Lying to Sitting/Side of Bed(Q: 2 Pt required max assist in lying<->EOB; pt received assistance with BLE and trunk. Balance Sitting Static: Fair Sitting Dynamic: Poor Treatment B ankle pumps x20 Assessment/Needs Pt struggled to focus on therapy as she was extremely tired. Pt refused getting out of bed and into chair, but agreed to sitting on the EOB for a short period of time. Pt is unable to actively abduct LLE when cued; pt is able to ext knees in the seated position. She sat there for about 5 min. Rehab Potential: Poor PT [facility] Goals Shirt Ironer Supervisor Goals PT Shirt Ironer Supervisor Goals Time Frame: Aug 07, 2020 Roll Left & Right (QC): 4 Sit to Lying (QC): 3 Lying-Sitting on Side/Bed(QC): 3 Sit to Stand (QC): 3 Chair/Tdk-pg-Rnrzj Xfer(QC): 3 Does the Patient Walk: No and Walking Goal IS indicated Walk 10 feet (QC): 3 PT Plan Problem List Problem List: Activity Tolerance, Functional Strength, Safety, Balance, Gait, Transfer, Bed Mobility, ROM Treatment/Plan Treatment Plan: Continue Plan of Care Treatment Plan: Bed Mobility, Education, Functional Activity Rex, Functional Strength, Gait, Safety, Therapeutic Exercise, Transfers Treatment Duration: Aug 07, 2020 Frequency: 6 times per week Estimated Hrs Per Day: .25 hour per day Patient and/or Family Agrees t: Yes Safety Risks/Education Patient Education: Transfer Techniques, Correct Positioning, Safety Issues Teaching Recipient: Patient Teaching Methods: Demonstration, Discussion Response to Teaching: Reinforcement Needed Discharge Recommendations Plan Pt will work with PT on bed mobility, functional strengthening, transfers, balance and gait. Time/GCodes Time In: 912 Time Out: 931 Total Billed Treatment Time: 19 Total Billed Treatment 1 visit KAYLA Donahue' XIAO COLEY PT Jul 31, 2020 10:09
--- NOTE | 2020-07-31 10:30 | ST Dysphagia Evaluation ---
Speech Evaluation-General Medical Diagnosis UTI/sepsis Onset Date: Jul 30, 2020 Therapy Diagnosis Therapy Diagnosis: Oropharyngeal Dysphagia Precautions Precautions: Aspiration Referral Referring Physician: Dr. Verde Medical History Pertinent Medical History: Atrial Fib, Arthritis, CAD, COPD, Dementia, HTN, MA, Renal Insufficiency, Rheumatoid Arthritis Reviewed History: Yes Social History Current Living Status: Spouse Speech PLF/Current-Dysphagia Prior Level of Function Patient lives at home with her and involved family who assist her with her daily needs. Patient is also receiving home health services. Subjective Patient was very sleepy, however with much encouragement she did participate with the Bedside Dysphagia Evaluation. Oral Motor Skills Dentition: Natural Current Food Consistancy: Mechanical Soft, Thin Liquids Ability to Follow Directions: Good Oral Expression Ability: Mild Impairment Voice Voice Phonatory-Based Quality: Weak Voice Pitch: Normal Voice Loudness: Moderately Soft/Quiet Face Facial Symmetry: Symmetrical Oral-Facial Assessment Oral-Facial Dentition: Normal Labial Seal Description: Weak Smile: Reduced ROM Lingual Protrusion: Normal Lingual ROM: Normal Lingual Strength: Normal Volitional Dry Swallow: Yes Voluntary Cough: Yes Can Clear Throat Volitionally: Yes Dysphagia Evaluation Consistencies Presented: Mechanical Soft, Pureed Oral phase is within normal range of function for all consistencies presented. Pharyngeal phase is within normal range of function for all consistencies presented. Dietary Recommendations: Mechanical Soft Liquid Recommendations: Thin Swallowing Precautions: Alternate Liquids/Solids, Double Swallow, Decreased Bolus 1/2 Tsp, Liquids from Straw, Small Bites and Sips, Sitting Upright 90 Degrees, Sitting 90 Degrees 30 Post Intake Dysphagia Evaluation Summary Patient is known to me following ARU admission in April s/p CVA. The patient received dysphagia therapy at that time. Her oral intake was inadequate at that time for meeting nutritional needs. She received a PEG tube during that admission to ensure her nutritional needs were met. The patient is admitted with a UTI this time with patient's diet level at Dysphagia II and thin. The patient completed a BDE with presentations of thin liquids at 1/2 tsp x2 and small sips via straw x2 without difficulty. Patient was given presentations of 1/2 tsp of puree and mechanical soft without difficulty with or post intake. The patient is recommended to continue on current diet level with PEG as well. This information was provided to her nurse as well as written on the white board in her room. Speech Short Term Goals Short Term Goals Short Term Goals 1) Patient will tolerate least restrictive diet level without s/s of aspiration at 80% or greater. 2) Patient/caregiver will utilize compensatory strategies as trained at 90% or greater with minimal cues. Speech [facility] Goals [employer] Platemaker Goals Patient will maintain adequate nutrition/hydration via oral and/or PEG. Speech-Plan Patient/Family Goals Patient/Family Goals: Patient plans on returning to her home where she lives with her . Patient also has home health services as well as other family support. Treatment Plan Speech Therapy Treatment Plan: Discontinue ST Treatment Duration: Jul 31, 2020 Frequency: 1 time per week Estimated Hrs Per Day: .5 hour per day Rehab Potential: Fair Barriers to Learning: Patient's health issues, age, decreased compliance Pt/Family Agrees to Plan: Yes Safety Risks/Education Teaching Recipient: Patient Teaching Methods: Demonstration, Discussion Response to Teaching: Verbalize Understanding, Return Demonstration, Re inforcement Needed Education Topics Provided: Safety of oral intake, diet level Time Speech Therapy Time In: 10:15 Speech Therapy Time Out: 10:40 Total Billed Time: 25 Billed Treatment Time 1, DYSEVS, DYST No YUE JARAMILLO Jul 31, 2020 10:30
--- NOTE | 2020-07-31 10:55 | Consultation-Cardiology ---
HPI-Cardiology Cardiology Consultation: Date of Consultation 07/31/20 Time Seen by a Provider: 10:45 Date of Admission 07-30-2020 Attending Physician Terese Neal DO Admitting Physician Terese Neal DO Consulting Physician Ayden Fischer MD HPI: Chief Complaint: A-fib Ms. Lee is a 74 year old female who has been admitted to [facility] from the ED. She has a known h/o a-fib with recent CVA for which she has been receiving rehab services. She is currently lying in bed. She is lethargic this morning. She opens her eyes and then drifts back to sleep. She nods her head no that she is not having chest pain, but she does not answer any other questions. She had to be awakened several times during the exam. Review of Systems-Cardiology Review of Systems Other comments She is non-contributory, the extent of RO UXE-Hwiwjl-Eeuhmr Hx Patient Social History Alcohol Use: Denies Use Recreational Drug Use: No Former smoker/When Quit: Oct 11, 2004 Type Used: Cigarettes 2nd Hand Smoke Exposure: No Hospitalization with Isolation: Denies Immunizations Up To Date Tetanus Booster (TDap): Unknown Date of Pneumonia Vaccine: Sep 17, 2015 Date of Influenza Vaccine: Jul 19, 2019 Past Medical History PMH As described under Assessment. Family Medical History Family Medical History: She has a reported h/o of her mother having coronary artery disease and hypertension. Family History: Cardiovascular disease 19 MOTHER Diabetes mellitus 19 MOTHER Hypertension 19 MOTHER Allergies and Home Medications Allergies Coded Allergies: Sulfa (Sulfonamide Antibiotics) (Verified Allergy, Unknown, 12/27/17) Home Medications ALPRAZolam 0.25 Mg Tab, 0.125 MG PO HS, (Reported) Acetaminophen 650 Mg Tablet.er, 1,300 MG PO Q8H PRN for PAIN-MILD (1-4), (Reported) Apixaban 5 Mg Tablet, 5 MG PO BID, (Reported) Aspirin 81 Mg Tab.chew, 81 MG PO HS, (Reported) Atorvastatin Calcium 20 Mg Tablet, 20 MG PO HS, (Reported) Carvedilol 6.25 Mg Tablet, 6.25 MG PO BID, (Reported) Diltiazem HCl 120 Mg Cap.er.24h, 120 MG PO DAILY, (Reported) Flaxseed Oil 1,000 Mg Capsule, 1,000 MG PO DAILY, (Reported) Hydroxyzine HCl 10 Mg Tablet, 10 MG PO TID PRN for ANXIETY, (Reported) LAST FILLED 03-15-2020 #90 Ipratropium/Albuterol Sulfate 3 Ml Ampul.neb, 3 ML NEB QID PRN for SHORTNESS OF BREATH, (Reported) Levothyroxine Sodium 50 Mcg Tablet, 50 MCG PO DAILY, (Reported) Miconazole Nitrate 90 Gm Powder, 0 GM TOP BID Prescribed by: TERESE NEAL on 05/23/20 1044 Miconazole Nitrate 90 Gm Powder, 0 GM TOP BID PRN for RASH Prescribed by: TERESE NEAL on 05/23/20 1044 Montelukast Sodium 10 Mg Tablet, 10 MG PO DAILY, (Reported) [Instaflex] , 1 TAB PO DAILY, (Reported) Physical Exam-Cardiology Physical Exam Vital Signs/I&O 07/31/20 08/01/20 08/01/20 08/01/20 23:51 01:00 03:55 07:00 Temp 36.4 36.4 Pulse 83 72 78 68 Resp 18 18 B/P (MAP) 125/56 (79) 121/58 (79) Pulse Ox 92 92 O2 Delivery Room Air Room Air 08/01/20 08:00 Temp 35.9 Pulse 64 Resp 20 B/P (MAP) 152/75 (100) Pulse Ox 97 O2 Delivery Room Air 08/01/20 00:00 Intake Total 600 ml Output Total 950 ml Balance -350 ml Capillary Refill : Less Than 3 Seconds Constitutional: other (opens eyes when you say her name; lethargic; does not answer questions) HEENT: PERRL Neck: No carotid bruit; carotid pulses are 2 + bilaterally Respiratory: No accessory muscle use, No respiratory distress; chest expansion is symmetric, chest is bilaterally symmetric, lungs clear to auscultation Cardiovascular: irregularly irregular; No JVD; S1 and S2, systolic murmur Gastrointestinal: soft, round, audible bowel sounds, other (PEG tube in place) Extremities: no lower extremity edema bilateral Neurologic/Psychiatric: other (right sided upper and lower extremity weakness) Skin: No rash on exposed areas, No ulcerations on exposed areas Data Review Labs Laboratory Tests 08/01/20 04:54: White Blood Count 10.1, Red Blood Count 4.24, Hemoglobin 12.4, Hematocrit 39, Mean Corpuscular Volume 92, Mean Corpuscular Hemoglobin 29, Mean Corpuscular Hemoglobin Concent 32, Red Cell Distribution Width 13.4, Platelet Count 221, Mean Platelet Volume 10.0, Immature Granulocyte % (Auto) 0, Neutrophils (%) (Auto) 72, Lymphocytes (%) (Auto) 17, Monocytes (%) (Auto) 6, Eosinophils (%) (Auto) 3, Basophils (%) (Auto) 1, Neutrophils # (Auto) 7.3, Lymphocytes # (Auto) 1.7, Monocytes # (Auto) 0.7, Eosinophils # (Auto) 0.3, Basophils # (Auto) 0.1, Immature Granulocyte # (Auto) 0.0, Sodium Level 138, Potassium Level 3.5L, Chloride Level 101, Carbon Dioxide Level 28, Anion Gap 9, Blood Urea Nitrogen 13, Creatinine 0.64, Estimat Glomerular Filtration Rate > 60, BUN/Creatinine Ratio 20, Glucose Level 96, Lactic Acid Level 1.04, Calcium Level 8.7, Corrected Calcium 9.6, Total Bilirubin 1.5H, Aspartate Amino Transf (AST/SGOT) 16, Alanine Aminotransferase (ALT/SGPT) 15, Alkaline Phosphatase 95, Total Protein 5.9L, Albumin 2.9L, Procalcitonin 0.04 Microbiology 07/30/20 Blood Culture - Preliminary, Resulted No growth 07/30/20 Urine Culture - Final, Complete NO GROWTH A/P-Cardiology Assessment/Admission Diagnosis UTI with prob sepsis - management per Dr. Neal H/O CVA (had been off OAC 3 days prior to event) April 2020 with right sided deficit and dysphagia - PEG tube in place Atrial fibrillation, chronic OAC with Eliquis Coronary artery disease, history of multiple intervention a total of 4 stents, last cardiac catheterization was done by Dr. Hamilton - details unknown Chronic systolic/diastolic congestive heart failure Echocardiogram done 05/04/2020 showed normal LVEF with moderate to severe mitral regurgitation. PA pressure 35-40 mmHg. Unes-zo-bjbojpvg tricuspid regurgitation. Hypertension Hyperlipidemia Diabetes mellitus, followed and managed by primary care physician History of smoking. Quit in 2003. Discussion and Recomendations Management of UTI per with probable sepsis management per Dr. Neal Chronic a-fib - advise continuation of OAC with Eliquis HTN - BP not well controlled - Norvasc has been started by medical services - resume Coreg Restart Cardizem CD for rate control Restart ASA d/t known h/o CAD Telemetry EKG today Monitor lab closely Replace electrolytes as indicated Further recs will be based on her hospital course We would like to thank medical services for this consult SHY NOEL Jul 31, 2020 10:54
[2020-07-31] MEDS ORDERED: ASPIRIN 81 MG CHEW (CHILDREN'S ASA) PO NR (11:30)
[2020-07-31] MEDS ORDERED: CARVEDILOL 6.25 MG (COREG) TAB PO NR (11:30)
[2020-07-31] MEDS ORDERED: ALPR.25T PO (11:49)
[2020-07-31] MEDS ORDERED: DILT-27 PO (11:49)
[2020-07-31] MEDS: CEFEPIME 1,000 MG/SWFI 10 ML IV PUSH IV SCH ×4 (12:26→17:41)
--- NOTE | 2020-07-31 13:28 | NUR ---
PT IS NOT ABLE TO GIVE ANY INFORMATION ABOUT HER MEDICATIONS. THERE IS A COPY OF PAST DISCHARGE ORDERS (THE PTS FAMILY HAS DOCUMENTED MED CHANGES), I ALSO WENT THRU THE EXT MED HISTORY AND SPOKE WITH PTS (TONY) TO COMPLETE THE MED REC PTS ANSWERED ALL MY QUESTIONS TO THE BEST OF HIS ABILITY AND ALL HIS INFORMATION MATCHED THE EXT MED HISTORY OTC MEDS: TYLENOL ASPIRIN 81 FLAXSEED INSTAFLEX
--- NOTE | 2020-07-31 13:55 | NUR ---
"RD ASSESSMENT PMHx: COPD; pneumonia; emphysema; afib; CAD; hypercholesterolemia; HTN; dementia; stroke; GERD; RA PT INTERACTION: Pt was awake and pleasant during nutrition assessment. Note pt has dementia, per chart review. Pt states current appetite is okay. Note PO intake 50% x1meal, per chart review. Pt states no issues with chewing/swallowing food. Note pt has hx of stroke and was on DYS2 Mechanically Altered diet during last ARU stay. Pt states some recent issues with nausea and vomiting. Pt states no recent issues with constipation or diarrhea, and that her last BM was 07/30. Note pt currently on bowel regimen of senna BID, per chart review. Pt states no recent wt changes. Note recent 16# wt gain x3mon, per chart review. Note pt currently has PEG tube placed, per chart review. ABNORMAL NUTRITION-RELATED LAB VALUES LOW: HIGH: glu 110; bili 1.6 Est. kcal needs: 1750 kcal | 25 kcal/kg Est. Pro needs: 56 g Pro | 0.8 g Pro/kg PES STATEMENT: Inadequate oral intake (NI-2.1) related to loss of appetite | nausea | vomiting as evidenced by pt interview | chart review | PO intake 50% x1meal INTERVENTION: Continue with current diet order of DYS2 Mechanically Altered diet. Pt may benefit from nutrition supplementation if PO intake declines. Encouraged pt to eat when able. Will continue to follow and reassess as pt needs, intake, and status change. Alma Ansari, MS RD LD"
--- NOTE | 2020-07-31 14:21 | NUR ---
CM/SS: Visited with pt as per consult related to in home assist prior to her admission Plan: Pt to return home when deemed appropriate with [facility] to resume care Summary: Pt initially talks with this worker and answers questions with yes or no answers. Pt then closes her eyes and would not answer questions. This worker assures pt that she will call her daughter and talk with her. Telephone call to Daughter Shahida [phone]. She reports pt has had [facility]. Addendum: 07/31/20 at 1459 by GREGORY AGUAYO SS Telephone Call to daughter - she reports that pt has an UTI and has not been real good for the last two weeks. She does report that pt can talk pretty well and has been eating and drinking by mouth and only doing water via the peg tube. She would request pt continue on home care at the time of discharge. At times pt spend some of her time up in the chair and some in the bed. She called this morning and got an update on pt. This worker will follow up as they know more on the discharge plan for pt. she verbalizes understanding.
--- NOTE | 2020-07-31 14:36 | Consultation-Cardiology ---
HPI-Cardiology Cardiology Consultation: Date of Consultation 07/31/20 Time Seen by a Provider: 10:45 Date of Admission Attending Physician Terese Neal DO Admitting Physician Terese Neal DO Consulting Physician MK GRACE MD, MA, FACP, FACC, FACP, CCDS HPI: Chief Complaint: Reason for consultation: H/o A-fib HPI Ms. Lee is a 74 year old female who has been admitted to [facility] from the ED. She has a known h/o a-fib with recent CVA for which she has been receiving rehab services. She is currently lying in bed. She is lethargic this morning. She opens her eyes and then drifts back to sleep. She nods her head no that she is not having chest pain, but she does not answer any other questions. She had to be awakened several times during the exam. Review of Systems-Cardiology Review of Systems Constitutional: other (Not able to provide a review of systems) [id number] Hx Patient Social History Alcohol Use: Denies Use Recreational Drug Use: No Former smoker/When Quit: Oct 11, 2004 Type Used: Cigarettes 2nd Hand Smoke Exposure: No Hospitalization with Isolation: Denies Immunizations Up To Date Tetanus Booster (TDap): Unknown Date of Pneumonia Vaccine: Sep 17, 2015 Date of Influenza Vaccine: Jul 19, 2019 Past Medical History PMH As described under Assessment. Family Medical History Family Medical History: She has a reported h/o of her mother having coronary artery disease and hypertension. Family History: Cardiovascular disease 19 MOTHER Diabetes mellitus 19 MOTHER Hypertension 19 MOTHER Allergies and Home Medications Allergies Coded Allergies: Sulfa (Sulfonamide Antibiotics) (Verified Allergy, Unknown, 12/27/17) Home Medications ALPRAZolam 0.25 Mg Tab, 0.125 MG PO HS, (Reported) Acetaminophen 650 Mg Tablet.er, 1,300 MG PO Q8H PRN for PAIN-MILD (1-4), (Reported) Apixaban 5 Mg Tablet, 5 MG PO BID, (Reported) Aspirin 81 Mg Tab.chew, 81 MG PO HS, (Reported) Atorvastatin Calcium 20 Mg Tablet, 20 MG PO HS, (Reported) Carvedilol 6.25 Mg Tablet, 6.25 MG PO BID, (Reported) Diltiazem HCl 120 Mg Cap.er.24h, 120 MG PO DAILY, (Reported) Flaxseed Oil 1,000 Mg Capsule, 1,000 MG PO DAILY, (Reported) Hydroxyzine HCl 10 Mg Tablet, 10 MG PO TID PRN for ANXIETY, (Reported) LAST FILLED 03-15-2020 #90 Ipratropium/Albuterol Sulfate 3 Ml Ampul.neb, 3 ML NEB QID PRN for SHORTNESS OF BREATH, (Reported) Levothyroxine Sodium 50 Mcg Tablet, 50 MCG PO DAILY, (Reported) Miconazole Nitrate 90 Gm Powder, 0 GM TOP BID Prescribed by: TERESE NEAL on 05/23/20 1044 Miconazole Nitrate 90 Gm Powder, 0 GM TOP BID PRN for RASH Prescribed by: TERESE NEAL on 05/23/20 1044 Montelukast Sodium 10 Mg Tablet, 10 MG PO DAILY, (Reported) [Instaflex] , 1 TAB PO DAILY, (Reported) Patient Home Medication List Home Medication List Reviewed: Yes Physical Exam-Cardiology Physical Exam Vital Signs/I&O 07/31/20 07/31/20 07/31/20 07/31/20 04:31 08:28 12:41 14:31 Temp 36.2 35.6 36.6 Pulse 100 105 107 97 Resp 22 22 20 B/P (MAP) 156/84 (108) 174/97 (122) 171/91 (117) Pulse Ox 95 95 96 O2 Delivery Room Air Room Air Room Air 07/31/20 00:00 Intake Total 320 ml Output Total 100 ml Balance 220 ml Capillary Refill : Less Than 3 Seconds Constitutional: other (opens eyes when you say her name; lethargic; does not answer questions) HEENT: PERRL Neck: No carotid bruit; carotid pulses are 2 + bilaterally Respiratory: No accessory muscle use, No respiratory distress; chest expansion is symmetric, chest is bilaterally symmetric, lungs clear to auscultation Cardiovascular: irregularly irregular; No JVD; S1 and S2, systolic murmur Gastrointestinal: soft, round, audible bowel sounds, other (PEG tube in place) Extremities: no lower extremity edema bilateral Neurologic/Psychiatric: other (right sided upper and lower extremity weakness) Skin: No rash on exposed areas, No ulcerations on exposed areas Data Review Labs Laboratory Tests 07/30/20 15:40: Urine Color YELLOW, Urine Clarity SL CLOUDY, Urine pH 6.5, Urine Specific [place] 1.025H, Urine Protein 2+H, Urine Glucose (UA) NEGATIVE, Urine Ketones NEGATIVE, Urine Nitrite NEGATIVE, Urine Bilirubin 1+H, Urine Urobilinogen 0.2, Urine Leukocyte Esterase TRACEH, Urine RBC (Auto) 3+H, Urine RBC 25-50H, Urine WBC 5-10H, Urine Crystals PRESENTH, Urine Amorphous Sediment FEW [place] URATESH, Urine Bacteria TRACE, Urine Casts PRESENT, Urine Hyaline Casts 10-25H, Urine Mucus NEGATIVE, Urine Culture Indicated YES 07/30/20 15:45: White Blood Count 21.7H, Red Blood Count 5.22H, Hemoglobin 15.1, Hematocrit 47, Mean Corpuscular Volume 90, Mean Corpuscular Hemoglobin 29, Mean Corpuscular Hemoglobin Concent 32, Red Cell Distribution Width 13.2, Platelet Count 315, Mean Platelet Volume 10.0, Immature Granulocyte % (Auto) 1, Neutrophils (%) (Auto) 88H, Lymphocytes (%) (Auto) 7L, Monocytes (%) (Auto) 3, Eosinophils (%) (Auto) 0, Basophils (%) (Auto) 0, Neutrophils # (Auto) 19.2H, Lymphocytes # (Auto) 1.6, Monocytes # (Auto) 0.7, Eosinophils # (Auto) 0.0, Basophils # (Auto) 0.1, Immature Granulocyte # (Auto) 0.1, Neutrophils % (Manual) 86, Lymphocytes % (Manual) 10, Monocytes % (Manual) 3, Basophils % (Manual) 1, Blood Morphology Comment NORMAL, Prothrombin Time 15.8H, INR Comment 1.2, Sodium Level 140, Potassium Level 3.9, Chloride Level 99, Carbon Dioxide Level 29, Anion Gap 12, Blood Urea Nitrogen 14, Creatinine 0.69, Estimat Glomerular Filtration Rate > 60, BUN/Creatinine Ratio 20, Glucose Level 113H, Calcium Level 9.5, Corrected Calcium 9.7, Total Bilirubin 1.9H, Aspartate Amino Transf (AST/SGOT) 21, Alanine Aminotransferase (ALT/SGPT) 23, Alkaline Phosphatase 151H, Total Protein 7.6, Albumin 3.7, Procalcitonin 0.03 07/30/20 16:22: 07/30/20 16:40: Lactic Acid Level 1.73, Coronavirus 2019 ([place]) Negative 07/31/20 04:55: White Blood Count 18.2H, Red Blood Count 4.73, Hemoglobin 13.8, Hematocrit 43, Mean Corpuscular Volume 90, Mean Corpuscular Hemoglobin 29, Mean Corpuscular Hemoglobin Concent 32, Red Cell Distribution Width 13.2, Platelet Count 284, Mean Platelet Volume 10.5, Immature Granulocyte % (Auto) 0, Neutrophils (%) (Auto) 83H, Lymphocytes (%) (Auto) 11L, Monocytes (%) (Auto) 5, Eosinophils (%) (Auto) 0, Basophils (%) (Auto) 0, Neutrophils # (Auto) 15.1H, Lymphocytes # (Auto) 2.0, Monocytes # (Auto) 0.9, Eosinophils # (Auto) 0.1, Basophils # (Auto) 0.1, Immature Granulocyte # (Auto) 0.1, Sodium Level 140, Potassium Level 3.9, Chloride Level 100, Carbon Dioxide Level 29, Anion Gap 11, Blood Urea Nitrogen 15, Creatinine 0.73, Estimat Glomerular Filtration Rate > 60, BUN/Creatinine Ratio 21, Glucose Level 110H, Calcium Level 9.2, Corrected Calcium 9.8, Total Bilirubin 1.6H, Aspartate Amino Transf (AST/SGOT) 16, Alanine Aminotransferase (ALT/SGPT) 19, Alkaline Phosphatase 120, Total Protein 6.7, Albumin 3.2 Laboratory Tests 07/30/20 15:45 07/31/20 04:55 A/P-Cardiology Assessment/Admission Diagnosis UTI with prob sepsis - management per Dr. Neal H/O CVA (had been off OAC 3 days prior to event) April 2020 with right sided deficit and dysphagia - PEG tube in place Atrial fibrillation, chronic OAC with Eliquis Coronary artery disease, history of multiple intervention a total of 4 stents, last cardiac catheterization was done by Dr. Hamilton - details unknown Chronic systolic/diastolic congestive heart failure Echocardiogram done 05/04/2020 showed normal LVEF with moderate to severe mitral regurgitation. PA pressure 35-40 mmHg. [id number] tricuspid regurgitation. Hypertension Hyperlipidemia Diabetes mellitus, followed and managed by primary care physician History of smoking. Quit in 2003. Discussion and Recomendations Chronic a-fib - advise continuation of OAC with Eliquis HTN - BP not well controlled - Norvasc has been started by medical services - resume Coreg Restart Cardizem CD for rate control Restart ASA d/t known h/o CAD Telemetry EKG today Monitor lab closely Replace electrolytes as indicated Further recs will be based on her hospital course We would like to thank Medical services for this consult MK GRACE MD FACP FAC CCDS Jul 31, 2020 14:36
--- NOTE | 2020-07-31 14:53 | Progress Note ---
[employer] MED STUDENT 07/31/20 1453: Progress Note CC: HPI: Ms. Lindsay Lee is a 74 y/o female with Hx of chronic A-fib, CHF and recent CVA w/ PEG tube placement who presents from the ER for UTI and dehydration. Patient has had multiple visits to the [facility] ER over the last three years for a wide range of issues spanning repiratory insufficiency secondary to COPD, recurrent pneumonia, Afib and CHF. Patient was seen earlier this year (11/02) for Herpes Zoster flare, closed L hip fracture on (12/31) for fall and subsequent screw fixation and L sided CVA occurring (05/01) following 4 days of non compliance with her Eliquis (due to miscommunication per daughter). Patient had PEG tube placement shortly after this secondary to poor oral intake on (05/09). Patient was discharged home at personal insistance despite PT/OT recomendation for inpatient stay with home health. Patient was later seen on (06/20) for confusion and bradycardia, discharged with instructions for outpatient f/u with cardiology. Patient was discharged for ER on (07/17) for weakness secondary to UTI. Patient admitted now for decreased urine output, nausea, vomiting and chills; dx as UTI and dehydration, admitted for further management. PT/OT and Cardiology (Dr. Fischer) consulted. Patient is DNR. ROS: General: no fever, no chills HEENT: no headache, no eye pain Cardiac: irregular heartbeat, regular rate, no murmurs appreciated Respiratory: inspiratory and expiratory diffuse rhonchi GI: no abdominal pain, no vomiting, no diarrhea Urinary: no blood in urine, no change in frequency Extremities: no pain, no swelling Neuro: no dizziness, no LOC PMH: -Afib -CAD -CHF -COPD -HTN -HLD -L sided CVA -Dementia -L hip fracture -Rhematoid Arthritis -GERD -Herpes Zoster -Depression -Anxiety Family Hx: -CAD (mother) -DM (mother) -HTN (mother) Social Hx: -Hx smoking: quit 2003 Surgical Hx: -cardiac cahtheterization x3 -Cardiac stents x4 -Tubal ligation -cholecystectomy -PEG tube placement Allergies: -Sulfa drugs (unspecified reaction) Medications: -Acetaminophen -Alprazolam -Apixaban -Aspirin -Atorvastatin -Carvedilol -Diltiazam -Flaxseed oil -Hydroxyzine -Ipratropium/Albuterol -Levothyroxine -Miconazole -Montelukast -Instaflex Physical Exam: -General: Well appearing, WD/WN, sitting and talking comfortably -Head: No ecchymosis, no tenderness -Eyes: PERRL, EOMI -Nose: nares patent, no lesions -Heart: No appreciable murmurs (note: limited due to life vest), regular rate -Lungs: CTAB, no accessory muscle use, no respiratory distress -Abdomen: soft, nontender, nondistended -Extremities: normal peripheral pulses, 2+ pitting pedal edema -Neuro/Psych: alert, oriented Assessment: -Dehydration -UTI hyperproteinuria trace leukocyte esterase elevated urine RBCs/WBCs/hyaline casts -Elevated WBC (improving) -Elevated biliruben -hx CVA with PEG tube placement -Chronic Afib CAD CHF HTN HLD DM COPD Dementia Rhematoid Arthritis GERD Depression Anxiety -hx smoking: resolved -Hx Herpes Zoster: resolved Plan: -IV Fluids -Azithromycin -Pain management PRN -Consult PT/OT -Consult Cardiology -Dysphagia evaluation -Maintain home medications -Monitor labs TERESE NEAL DO 07/31/202050: Supervisory-Addendum Brief Verification & Attestation Participated in pt care: history, MDM, physical Personally performed: exam, history, MDM, supervision of care Care discussed with: Medical Student Procedures: n/a Results interpretation: Verified all documentation Verification and Attestation of Medical Student E/M Service A medical student performed and documented this service in my presence. I reviewed and verified all information documented by the medical student and made modifications to such information, when appropriate. I personally performed the physical exam and medical decision making. Terese Neal, Jul 31, 2020,20:51 [employer] [employer] STUDENT Jul 31, 2020 14:53 TERESE NEAL DO Jul 31, 2020 20:51
[2020-07-31] MEDS ORDERED: AZITHROMYCIN 250 MG TAB (ZITHROMAX) PO SCH (21:00)
[2020-07-31] MEDS: CARVEDILOL 6.25 MG (COREG) TAB PO SCH (21:27)
[2020-08-01] MEDS: CEFEPIME 1,000 MG/SWFI 10 ML IV PUSH IV SCH ×6 (00:34→12:51)
[2020-08-01 03:55] VITALS: BP 121/58
[2020-08-01 05:02] LABS: WHITE BLOOD COUNT 10.1 10^3/uL (4.3-11.0)
[2020-08-01 05:03] LABS: BASOPHILS # (AUTO) 0.1 10^3/uL (0.0-0.1); BASOPHILS % (AUTO) 1 % (0-10); EOSINOPHILS # (AUTO) 0.3 10^3/uL (0.0-0.3); EOSINOPHILS % (AUTO) 3 % (0-10); HEMATOCRIT 39 % (35-52); HEMOGLOBIN 12.4 g/dL (11.5-16.0); LYMPHOCYTES # (AUTO) 1.7 10^3/uL (1.0-4.0); LYMPHOCYTES % (AUTO) 17 % (12-44); MEAN CORPUSCULAR HEMOGLOBIN 29 pg (25-34); MEAN CORPUSCULAR HGB CONC 32 g/dL (32-36); MEAN CORPUSCULAR VOLUME 92 fL (80-99); MONOCYTES # (AUTO) 0.7 10^3/uL (0.0-1.0); MONOCYTES % (AUTO) 6 % (0-12); NEUTROPHILS # (AUTO) 7.3 10^3/uL (1.8-7.8); NEUTROPHILS % (AUTO) 72 % (42-75); PLATELET COUNT 221 10^3/uL (130-400)
[2020-08-01 05:25] LABS: ALANINE AMINOTRANSFERASE 15 U/L (0-55); ALBUMIN 2.9 GM/DL (3.2-4.5); ALKALINE PHOSPHATASE 95 U/L (40-136); BILIRUBIN,TOTAL 1.5 MG/DL (0.1-1.0); BUN/CREATININE RATIO 20; CALCIUM 8.7 MG/DL (8.5-10.1); CARBON DIOXIDE 28 MMOL/L (21-32); CHLORIDE 101 MMOL/L (98-107); CREATININE SERUM 0.64 MG/DL (0.60-1.30); GFR ESTIMATED > 60; GLUCOSE 96 MG/DL (70-105); POTASSIUM 3.5 MMOL/L (3.6-5.0); SODIUM 138 MMOL/L (135-145); TOTAL PROTEIN 5.9 GM/DL (6.4-8.2)
--- NOTE | 2020-08-01 05:45 | Progress Note - Hospitalist ---
Subjective HPI/CC On Admission CC: AMS with hypoxia and wheezing HPI: CC: Decline in status HPI: This is a 75yoWF clinic Pt of mine who has had a significant decline in status the last couple of years, more profoundly since the first of the year with a hip fracture and ultimately experienced a catastrophic embolic stroke after stopping her oral anticoagulation for four days. At this current time Pt is sleeping and doesnt want to be disturbed. CC: HPI: Ms. Lindsay Lee is a 74 y/o female with Hx of chronic A-fib, CHF and recent CVA w/ PEG tube placement who presents from the ER for UTI and dehydration. Patient has had multiple visits to the [facility] ER over the last three years for a wide range of issues spanning repiratory insufficiency secondary to COPD, recurrent pneumonia, Afib and CHF. Patient was seen earlier this year (11/02) for Herpes Zoster flare, closed L hip fracture on (12/31) for fall and subsequent screw fixation and L sided CVA occurring (05/01) following 4 days of noncompliance with her Eliquis (due to miscommunication per daughter). Patient had PEG tube placement shortly after this secondary to poor oral intake on (05/09). Patient was discharged home at personal insistance despite PT/OT recomendation for inpatient stay with home health. Patient was later seen on (06/20) for confusion and bradycardia, discharged with instructions for outpatient f/u with cardiology. Patient was discharged for ER on (07/17) for weakness s econdary to UTI. Patient admitted now for decreased urine output, nausea, vomiting and chills; dx as UTI and dehydration, admitted for further management. PT/OT and Cardiology (Dr. Fischer) consulted. Patient is DNR. ROS: General: no fever, no chills HEENT: no headache, no eye pain Cardiac: irregular heartbeat, regular rate, no murmurs appreciated Respiratory: inspiratory and expiratory diffuse rhonchi GI: no abdominal pain, no vomiting, no diarrhea Urinary: no blood in urine, no change in frequency Extremities: no pain, no swelling Neuro: no dizziness, no LOC PMH: -Afib -CAD -CHF -COPD -HTN -HLD -L sided CVA -Dementia -L hip fracture -Rhematoid Arthritis -GERD -Herpes Zoster -Depression -Anxiety Family Hx: -CAD (mother) -DM (mother) -HTN (mother) Social Hx: -Hx smoking: quit 2003 Surgical Hx: -cardiac cahtheterization x3 -Cardiac stents x4 -Tubal ligation -cholecystectomy -PEG tube placement Allergies: -Sulfa drugs (unspecified reaction) Medications: -Acetaminophen -Alprazolam -Apixaban -Aspirin -Atorvastatin -Carvedilol -Diltiazam -Flaxseed oil -Hydroxyzine -Ipratropium/Albuterol -Levothyroxine -Miconazole -Montelukast -Instaflex Physical Exam: -General: Well appearing, WD/WN, sitting and talking comfortably -Head: No ecchymosis, no tenderness -Eyes: PERRL, EOMI -Nose: nares patent, no lesions -Heart: No appreciable murmurs (note: limited due to life vest), regular rate -Lungs: CTAB, no accessory muscle use, no respiratory distress -Abdomen: soft, nontender, nondistended -Extremities: normal peripheral pulses, 2+ pitting pedal edema -Neuro/Psych: alert, oriented Assessment: -Dehydration -UTI hyperproteinuria trace leukocyte esterase elevated urine RBCs/WBCs/hyaline casts -Elevated WBC (improving) -Elevated biliruben -hx CVA with PEG tube placement -Chronic Afib CAD CHF HTN HLD DM COPD Dementia Rhematoid Arthritis GERD Depression Anxiety -hx smoking: resolved -Hx Herpes Zoster: resolved Plan: -IV Fluids -Azithromycin -Pain management PRN -Consult PT/OT -Consult Cardiology -Dysphagia evaluation -Maintain home medications -Monitor labs [employer] STUDENT Focused Exam Lactate Level 07/30/20 16:40: Lactic Acid Level 1.73 08/01/20 04:54: Lactic Acid Level 1.04 Lactic Acid Level Objective Exam Vital Signs Vital Signs Date Time Temp Pulse Resp B/P (MAP) Pulse Ox O2 Delivery O2 Flow Rate FiO2 08/01/20 08:00 35.9 64 20 152/75 (100) 97 Room Air Capillary Refill : Less Than 3 Seconds Results/Procedures Lab Laboratory Tests 08/01/20 04:54 Patient resulted labs reviewed. Diagnosis/Problems Diagnosis/Problems (1) Delirium (2) COPD exacerbation Status: Acute (3) Hypoxia Status: Chronic (4) Paroxysmal atrial fibrillation Status: Chronic (5) Debility Status: Acute (6) Aphasia (7) Uncontrolled hypertension Status: Acute (8) History of shingles (9) UTI (urinary tract infection) JEROME NEAL DO Aug 01, 2020 05:45
[2020-08-01 08:00] VITALS: BP 152/75
[2020-08-01] MEDS ORDERED: ASPIRIN 81 MG CHEW (CHILDREN'S ASA) PO SCH ×2 (09:00→21:00)
[2020-08-01] MEDS ORDERED: amLODIPine 5 MG (NORVASC) TAB PO SCH (09:00)
[2020-08-01] MEDS: SENNA W/DOCUSATE (SENOKOT S) TABLET PO SCH (09:13)
[2020-08-01] MEDS: APIXABAN 5 MG (ELIQUIS) TABLET PO SCH (09:14)
[2020-08-01] MEDS: CARVEDILOL 6.25 MG (COREG) TAB PO SCH (09:14)
--- NOTE | 2020-08-01 10:14 | Progress Note - Cardiology ---
Cardiology SOAP Progress Note Subjective: Sitting up in bed drinking juice. States she feels better. No c/o CP or SOB. Very limited amt of information per pt Objective: I&O/Vital Signs Weight (Pounds): 170 Weight (Ounces): 0 Weight (Calculated Kilograms): 77.716118 Constitutional: AAO x 3 (oriented to self) Respiratory: No accessory muscle use, No respiratory distress; chest expansion is symmetric, chest is bilaterally symmetric, lungs clear to auscultation Cardiovascular: irregularly irregular; No JVD; S1 and S2, systolic murmur Gastrointestional: soft, round, audible bowel sounds, other (PEG tube in place) Extremities: no lower extremity edema bilateral Neurologic/Psychiatric: other (right sided upper and lower extremity weakness) Skin: No rash on exposed areas, No ulcerations on exposed areas Results/Procedures: Labs Microbiology 07/30/20 Blood Culture - Final, Complete No growth 07/30/20 Urine Culture - Final, Complete NO GROWTH A/P: Assessment: UTI - management per Dr. Verde H/O CVA (had been off OAC 3 days prior to event) April 2020 with right sided deficit and dysphagia - PEG tube in place Atrial fibrillation, chronic OAC with Eliquis Coronary artery disease, history of multiple intervention a total of 4 stents, last cardiac catheterization was done by Dr. Hamilton - details unknown Chronic systolic/diastolic congestive heart failure - clinically compensated Echocardiogram done 05/04/2020 showed normal LVEF with moderate to severe mitral regurgitation. PA pressure 35-40 mmHg. [id number] tricuspid regurgitation. Hypertension Hyperlipidemia Diabetes mellitus, followed and managed by primary care physician History of smoking. Quit in 2003. Prob COPD Plan: Chronic a-fib with controlled rate -continue OAC with Eliquis BP improved with addition of Coreg and Norvasc Continue Cardizem CD for rate control - improved Continue ASA d/t known h/o CAD Monitor lab closely Replace electrolytes as indicated SHY NOEL Aug 01, 2020 10:14
[2020-08-01] MEDS ORDERED: KCL 10 MEQ TAB (MICRO K) PO NR (10:15)
[2020-08-01] MEDS ORDERED: AZIT250T12 PO (11:28)
[2020-08-01] MEDS ORDERED: CEFD300C3 PO (11:28)
[2020-08-01] MEDS ORDERED: DILT240C91 PO (11:28)
[2020-08-01] MEDS ORDERED: NITR-65 PO (11:28)
--- NOTE | 2020-08-01 11:29 | Discharge Summary ---
Discharge Summary Hospital Course Was the Problem List Reviewed?: Yes Problems/Dx: (1) Delirium (2) COPD exacerbation Status: Acute (3) Hypoxia Status: Chronic (4) Paroxysmal atrial fibrillation Status: Chronic (5) Debility Status: Acute (6) Aphasia (7) Uncontrolled hypertension Status: Acute (8) History of shingles (9) UTI (urinary tract infection) Hospital Course Date of Admission: Jul 30, 2020 at 17:32 Admission Diagnosis : Family Physician/Provider: Terese Verde DO Date of Discharge: 08/01/20 Discharge Diagnosis: AMS, Elevated wbc, acute on chronic bronchitis, abnormal UTI, AF, COPD, CVA hx Hospital Course: Short course after admitted for AMS and hypoxia, COVID swab done and negative. Abx maintained for acute bronchitis and wbc returned to normal. Overall she was doing well and back to baseline of very debilitated status from stroke earlier this year. Labs and Pending Lab Test: Laboratory Tests 08/01/20 04:54: White Blood Count 10.1, Red Blood Count 4.24, Hemoglobin 12.4, Hematocrit 39, Mean Corpuscular Volume 92, Mean Corpuscular Hemoglobin 29, Mean Corpuscular Hemoglobin Concent 32, Red Cell Distribution Width 13.4, Platelet Count 221, Mean Platelet Volume 10.0, Immature Granulocyte % (Auto) 0, Neutrophils (%) (Auto) 72, Lymphocytes (%) (Auto) 17, Monocytes (%) (Auto) 6, Eosinophils (%) (Auto) 3, Basophils (%) (Auto) 1, Neutrophils # (Auto) 7.3, Lymphocytes # (Auto) 1.7, Monocytes # (Auto) 0.7, Eosinophils # (Auto) 0.3, Basophils # (Auto) 0.1, Immature Granulocyte # (Auto) 0.0, Sodium Level 138, Potassium Level 3.5L, Chloride Level 101, Carbon Dioxide Level 28, Anion Gap 9, Blood Urea Nitrogen 13, Creatinine 0.64, Estimat Glomerular Filtration Rate > 60, BUN/Creatinine Ratio 20, Glucose Level 96, Lactic Acid Level 1.04, Calcium Level 8.7, Corrected Calcium 9.6, Total Bilirubin 1.5H, Aspartate Amino Transf (AST/SGOT) 16, Alanine Aminotransferase (ALT/SGPT) 15, Alkaline Phosphatase 95, Total Protein 5.9L, Albumin 2.9L, Procalcitonin 0.04 Microbiology 07/30/20 Blood Culture - Preliminary, Resulted No growth 07/30/20 Urine Culture - Final, Complete NO GROWTH Home Meds Active Lotrimin AF (Miconazole Nitrate) 90 Gm Powder 0 Gm TOP BID PRN Lotrimin AF (Miconazole Nitrate) 90 Gm Powder 0 Gm TOP BID Reported Diltiazem 24Hr ER (Diltiazem HCl) 120 Mg Cap.er.24h 120 Mg PO DAILY Xanax Tablet (Alprazolam) 0.25 Mg Tab 0.125 Mg PO HS Hydroxyzine HCl 10 Mg Tablet 10 Mg PO TID PRN LAST FILLED 03-15-2020 #90 Aspirin 81 Mg Tab.chew 81 Mg PO HS Flax Seed Oil (Flaxseed Oil) 1,000 Mg Capsule 1,000 Mg PO DAILY [Instaflex] 1 Tab PO DAILY Levothyroxine Sodium 50 Mcg Tablet 50 Mcg PO DAILY Tylenol 8 Hour (Acetaminophen) 650 Mg Tablet.er 1,300 Mg PO Q8H PRN Carvedilol 6.25 Mg Tablet 6.25 Mg PO BID Iprat-Albut 0.5-3(2.5) mg/3 ml (Ipratropium/Albuterol Sulfate) 3 Ml Ampul.neb 3 Ml NEB QID PRN Singulair (Montelukast Sodium) 10 Mg Tablet 10 Mg PO DAILY Atorvastatin Calcium 20 Mg Tablet 20 Mg PO HS Eliquis (Apixaban) 5 Mg Tablet 5 Mg PO BID Assessment/Pt Instructions Dr Verde in 1 week Discharge Planning: <30 minutes discharge planning Discharge Instructions Discharge Diet: No Restrictions Discharge Physical Examination Vital Signs Vital Signs Date Time Temp Pulse Resp B/P (MAP) Pulse Ox O2 Delivery O2 Flow Rate FiO2 08/01/20 08:00 35.9 64 20 152/75 (100) 97 Room Air General Appearance: No Apparent Distress, WD/WN, Chronically ill Allergies: Coded Allergies: Sulfa (Sulfonamide Antibiotics) (Verified Allergy, Unknown, 12/27/17) Discharge Summary Date of Admission Jul 30, 2020 at 17:32 Date of Discharge Discharge Date: Aug 01, 2020 Admission Diagnosis Assessment: AMS Fever Hypoxia AECOPD Acute bronchitis AF CVA with dysphagia and dysarthria HTN CAD RA Plan: IV abx Supportive care PT OT ST PEG tube to be used if necessary Discharge Diagnosis (1) Delirium (2) COPD exacerbation Status: Acute (3) Hypoxia Status: Chronic (4) Paroxysmal atrial fibrillation Status: Chronic (5) Debility Status: Acute (6) Aphasia (7) Uncontrolled hypertension Status: Acute (8) History of shingles (9) UTI (urinary tract infection) TERESE VERDE DO Aug 01, 2020 11:29
[2020-08-01] MEDS ORDERED: hydrOXYzine (ATARAX) 10 MG TAB PO PRN (11:30)
[2020-08-01] MEDS ORDERED: RT-ALBUTEROL/IPRATROPIUM 3 ML (DUONEB) VIAL IH PRN (11:30)
[2020-08-01] MEDS ORDERED: MICONAZOLE 2% POWDER (DESENEX AF) 90 GM TOP PRN (11:30)
--- NOTE | 2020-08-01 11:59 | Physical Therapy Daily Note ---
PT Daily Note-Current Subjective Patient in bed pre tx, agrees to PT, has no complaints of pain. Appearance Patient in recliner post tx with nurse call, phone, tray, legs elevated, all needs met. Has bailee sling under her if nursing needs it to get her back to bed. Mental Status Patient Orientation: Person, [place] Transfers SCALE: Activities may be completed with or without assistive devices. 0-Jtvawftgyg-silrcbo completes the activity by him/herself with no assistance from a helper. 5-Set-up or Clean-up Assistance-helper sets up or cleans up; patient completes activity. [place] assists only prior to or following the activity. 4-Supervision or Touching Assistance-helper provides verbal cues and/or touching/steadying and/or contact guard assistance as patient completes activity. Assistance may be provided throughout the activity or intermittently. 3-Partial/Moderate Assistance-helper does LESS THAN HALF the effort. [place] lifts, holds or supports trunk or limbs, but provides less than half the effort. 2-Substantial/Maximal Assistance-helper does MORE THAN HALF the effort. [place] lifts or holds trunk or limbs and provides more than half the effort. 7-Ylsbjkxii-amthcu does ALL the effort. Patient does none of the effort to complete the activity. Or, the assistance of 2 or more helpers is required for the patient to complete the activity. If activity was not attempted, code reason: 7-Patient Refused. 9-Not Applicable-not attempted and the patient did not perform the activity before the current illness, exacerbation or injury. 10-Not Attempted due to Environmental Limitations-(lack of equipment, weather restraints, etc.). 88-Not Attempted due to Medical Conditions or Safety Concerns. Roll Left & Right (QC): 2 Lying to Sitting/Side of Bed(Q: 2 Sit to Stand (QC): 2 Chair/Ges-xq-Mprtj Xfer(QC): 2 Patient is max assist for supine to sit, needs mod assist to maintain sitting balance, max assist stand pivot transfer to recliner. Patient stands again with max assist and is only able to stand for a few seconds, sits in a better position in the recliner. Treatments bed mobility and transfers, standing Assessment Current Status: Poor Progress no change in mobility PT Skilled Nursing Goals Skilled Nursing Goals PT Landscape Artist Goals Time Frame: Aug 07, 2020 Roll Left & Right (QC): 4 Sit to Lying (QC): 3 Lying-Sitting on Side/Bed(QC): 3 Sit to Stand (QC): 3 Chair/Pmz-jk-Ypefv Xfer(QC): 3 Does the Patient Walk: No and Walking Goal IS indicated Walk 10 feet (QC): 3 PT Plan Problem List Problem List: Activity Tolerance, Functional Strength, Safety, Balance, Gait, Transfer, Bed Mobility, ROM Treatment/Plan Treatment Plan: Continue Plan of Care Treatment Plan: Bed Mobility, Education, Functional Activity Rex, Functional Strength, Gait, Safety, Therapeutic Exercise, Transfers Treatment Duration: Aug 07, 2020 Frequency: 6 times per week Estimated Hrs Per Day: .25 hour per day Patient and/or Family Agrees t: Yes Safety Risks/Education Patient Education: Transfer Techniques, Correct Positioning, Safety Issues Teaching Recipient: Patient Teaching Methods: Demonstration, Discussion Response to Teaching: Reinforcement Needed Time/GCodes Time In: 1142 Time Out: 1152 Total Billed Treatment Time: 10 Total Billed Treatment 1 visit FA XIAO DIAZ PT Aug 01, 2020 11:59
[2020-08-01 12:00] VITALS: BP 144/91
--- NOTE | 2020-08-01 12:29 | Progress Note - Cardiology ---
Cardiology SOAP Progress Note Subjective: Does not report cp or palp or syncope or shortness of breath Gen malaise and weakness Objective: I&O/Vital Signs 08/01/20 08/01/20 08/01/20 08/01/20 01:00 03:55 07:00 08:00 Temp 36.4 35.9 Pulse 72 78 68 64 Resp 18 20 B/P (MAP) 121/58 (79) 152/75 (100) Pulse Ox 92 97 O2 Delivery Room Air Room Air 08/01/20 09:00 Pulse Ox 96 O2 Delivery Room Air 08/01/20 00:00 Intake Total 600 ml Output Total 950 ml Balance -350 ml Weight (Pounds): 170 Weight (Ounces): 0 Weight (Calculated Kilograms): 77.440292 Constitutional: AAO x 3 (oriented to self) Respiratory: No accessory muscle use, No respiratory distress; chest expansion is symmetric, chest is bilaterally symmetric, lungs clear to auscultation Cardiovascular: irregularly irregular; No JVD; S1 and S2, systolic murmur Gastrointestional: soft, round, audible bowel sounds, other (PEG tube in place) Extremities: no lower extremity edema bilateral Neurologic/Psychiatric: other (right sided upper and lower extremity weakness) Skin: No rash on exposed areas, No ulcerations on exposed areas Results/Procedures: Labs Laboratory Tests 08/01/20 04:54: White Blood Count 10.1, Red Blood Count 4.24, Hemoglobin 12.4, Hematocrit 39, Mean Corpuscular Volume 92, Mean Corpuscular Hemoglobin 29, Mean Corpuscular Hemoglobin Concent 32, Red Cell Distribution Width 13.4, Platelet Count 221, Mean Platelet Volume 10.0, Immature Granulocyte % (Auto) 0, Neutrophils (%) (Auto) 72, Lymphocytes (%) (Auto) 17, Monocytes (%) (Auto) 6, Eosinophils (%) (Auto) 3, Basophils (%) (Auto) 1, Neutrophils # (Auto) 7.3, Lymphocytes # (Auto) 1.7, Monocytes # (Auto) 0.7, Eosinophils # (Auto) 0.3, Basophils # (Auto) 0.1, Immature Granulocyte # (Auto) 0.0, Sodium Level 138, Potassium Level 3.5L, Chloride Level 101, Carbon Dioxide Level 28, Anion Gap 9, Blood Urea Nitrogen 13, Creatinine 0.64, Estimat Glomerular Filtration Rate > 60, BUN/Creatinine Ratio 20, Glucose Level 96, Lactic Acid Level 1.04, Calcium Level 8.7, Corrected Calcium 9.6, Total Bilirubin 1.5H, Aspartate Amino Transf (AST/SGOT) 16, Alanine Aminotransferase (ALT/SGPT) 15, Alkaline Phosphatase 95, Total Protein 5.9L, Albumin 2.9L, Procalcitonin 0.04 Microbiology 07/30/20 Blood Culture - Preliminary, Resulted No growth 07/30/20 Urine Culture - Final, Complete NO GROWTH Laboratory Tests 07/30/20 15:45 07/31/20 04:55 08/01/20 04:54 A/P: Assessment: UTI - management per Dr. Verde H/O CVA (had been off OAC 3 days prior to event) April 2020 with right sided deficit and dysphagia - PEG tube in place Atrial fibrillation, chronic OAC with Eliquis Coronary artery disease, history of multiple intervention a total of 4 stents, last cardiac catheterization was done by Dr. Hamilton - details unknown Chronic systolic/diastolic congestive heart failure - clinically compensated Echocardiogram done 05/04/2020 showed normal LVEF with moderate to severe mitral regurgitation. PA pressure 35-40 mmHg. Qszp-qd-yjefvzqv tricuspid regurgitation. Hypertension Hyperlipidemia Diabetes mellitus, followed and managed by primary care physician History of smoking. Quit in 2003. Prob COPD Plan: Chronic a-fib with controlled rate -continue OAC with Eliquis BP improved with addition of Coreg and Norvasc Continue Cardizem CD for rate control - improved Continue ASA d/t known h/o CAD Monitor lab closely Replace electrolytes as indicated MK GRACE MD FACP FAC CCDS Aug 01, 2020 12:29
[2020-08-01] MEDS ORDERED: ACETAMINOPHEN 325 MG TABLET PO PRN (12:30)
--- NOTE | 2020-08-01 13:23 | Occupational Ther Daily Note ---
OT Current Status-Daily Note Subjective Pt laying in bed, agreeable to OT tx. Pt indicates she is hoping to go home today. ADL-Treatment Therapy Code Descriptions/Definitions Functional [place] Measure: 0=Not Assessed/NA 4=Minimal Assistance 1=Total Assistance 5=Supervision or Setup 2=Maximal Assistance 6=Modified [place] 3=Moderate Assistance 7=Complete IndependenceSCALE: Activities may be completed with or without assistive devices. 3-Dcrfohkuio-kbqbxyl completes the activity by him/herself with no assistance from a helper. 5-Set-up or Clean-up Assistance-helper sets up or cleans up; patient completes activity. [place] assists only prior to or following the activity. 4-Supervision or Touching Assistance-helper provides verbal cues and/or touching/steadying and/or contact guard assistance as patient completes activity. Assistance may be provided throughout the activity or intermittently. 3-Partial/Moderate Assistance-helper does LESS THAN HALF the effort. [place] lifts, holds or supports trunk or limbs, but provides less than half the effort. 2-Substantial/Maximal Assistance-helper does MORE THAN HALF the effort. [place] lifts or holds trunk or limbs and provides more than half the effort. 3-Ekbcrftnk-kbnusl does ALL the effort. Patient does none of the effort to complete the activity. Or, the assistance of 2 or more helpers is required for the patient to complete the activity. If activity was not attempted, code reason: 7-Patient Refused. 9-Not Applicable-not attempted and the patient did not perform the activity before the current illness, exacerbation or injury. 10-Not Attempted due to Environmental Limitations-(lack of equipment, weather restraints, etc.). 88-Not Attempted due to Medical Conditions or Safety Concerns. Eating (QC): 3 (Pt able to grab water from tray table and bring to mouth to take a drink from stray, min A with bringing cup to mouth.) Other Treatment Pt laying in bed, transferred supine to sit EOB with max A. Pt requires mod A to maintain sitting balance. Pt agreeable to transfer to recliner, requiring max A SPT. Pt required max A in order to scoot back in seat for a better position. Pt indicates she is fatigued, she had just completed a sponge bath with nursing prior to tx. Pt states she is hoping to go home where she is looking forward to taking a shower. Pt requests drink of water, OT repositioned lid of container to where handle was L side of cup, this allows pt to reach forward with her left and to grasp cup to bring to her mouth. Pt still required min A with getting cup from table and to her mouth, pt able to take drink of water through straw. Post OT tx, pt seated in recliner, call light in reach and all needs met, legs elevated. Education OT Patient Education: Correct positioning, Modified ADL techniques, Progress toward Goal/Update tx plan, Purpose of tx/functional activities, Safety issues, Transfer techniques Teaching Recipient: Patient Teaching Methods: Discussion Response to Teaching: Verbalize Understanding OT Intermediate Goals Scorekeeper Goals Time Frame: Aug 09, 2020 Eating (QC): 5 Oral Hygiene (QC): 4 Toileting Hygiene (QC): 2 Shower/Bathe Self (QC): 2 Upper Body Dressing (QC): 3 Lower Body Dressing (QC): 2 On/Off Footwear (QC): 2 Additional Goals: 1-Demonstrate ADL Tasks, 2-Verbalize Understanding, 3-Improv eStrength/Rex 1=Demonstrate adherence to instructed precautions during ADL tasks. 2=Patient will verbalize/demonstrate understanding of assistive devices/modifications for ADL. 3=Patient will improve strength/tolerance for activity to enable patient to p erform ADL's. OT Education/Plan Problem List/Assessment Assessment: Decreased Activ Tolerance, Decreased Safety Aware, Impaired Bed Mobility, Impaired Funct Balance, Impaired I ADL's, Impaired Self-Care Skills Pt would benefit from skilled OT in order to increase functional strength and endurance, and increase independence with ADLs to maximize LOF to return home with . Discharge Recommendations Plan/Recommendations: Continue POC Treatment Plan/Plan of Care Patient would benefit from OT for education, treatment and training to promote independence in ADL's, mobility, safety and/or upper extremity function for ADL's. Plan of Care: ADL Retraining, Functional Mobility, UE Funct Exercise/Act Treatment Duration: Aug 09, 2020 Frequency: 5 times per week Estimated Hrs Per Day: .25 hour per day Rehab Potential: Poor Time/GCodes Start Time: 11:42 Stop Time: 11:52 Total Time Billed (hr/min): 10 Billed Treatment Time 1, SAY TOBAR OT Aug 01, 2020 13:23
--- NOTE | 2020-08-01 13:57 | NUR ---
Received dietary consult regarding poor PO intake. Note pt has PEG tube, and note avg PO intake 43% x1d. If avg PO intake were to decline to 25% or below, would recommend enteral feeding through the PEG tube. Would recommend the following TF: Jevity 1.5 kcal bolus feed of 1 can x5/day, with flushes of 75ml water before and after bolus. Total cans provides 1775 kcal (25 kcal/kg); 76 g Pro (1.1 g Pro/kg); and 1650ml free water (with flushes). Will continue to follow and reassess as pt needs, intake, and status change. Alma Ansari MS RD LD [phone]
--- NOTE | 2020-08-01 14:23 | NUR ---
CM/SS: Care Van [phone] - is arranged to hand picker pt - They are able to be here at 2:30pm to transport pt to home. Pt is ready to go home. She had expressed wanting to go home earlier. Daughter Shahida [phone] is notified and she is able to bring the wheelchair to the hospital for pt to ride in on the van. [facility] are notified that pt will be discharge to home today. They will resume care.
[2020-08-01 14:29] VITALS: BP 144/91
[2020-08-01] MEDS ORDERED: CARVEDILOL 6.25 MG (COREG) TAB PO SCH (21:00)
[2020-08-01] MEDS ORDERED: APIXABAN 5 MG (ELIQUIS) TABLET PO SCH (21:00)
[2020-08-01] MEDS ORDERED: ALPRAZolam 0.25 MG (XANAX) TAB PO SCH (21:00)
[2020-08-01] MEDS ORDERED: MICONAZOLE 2% POWDER (DESENEX AF) 90 GM TOP SCH (21:00)
[2020-08-02] MEDS ORDERED: LEVOTHYROXINE 50 MCG (LEVOTHROID) TAB PO SCH (06:30)
[2020-08-02] MEDS ORDERED: MONTELUKAST 10 MG (SINGULAIR) TAB PO SCH (09:00)
[2020-08-02] MEDS ORDERED: dilTIAZem120 MG (CARDIZEM CD) CAP PO SCH (09:00)
[2020-08-02] MEDS ORDERED: NON-FORMULARY MEDICATION 1 EA EA (Flaxseed Oil (Flax Seed Oil) 1,000 MG) PO SCH (09:00)
[2020-08-02] MEDS ORDERED: INSTAFLEX PO SCH (09:00)
--- NOTE | 2020-08-02 10:36 | Physician Query Clarification ---
PQ-Conflicting Diagnosis Admission/Discharge Admission Date: Jul 30, 2020 at 17:32 Discharge Date: Aug 01, 2020 at 14:29 Dr. Verde, The medical record reflects the following clinical scenario: History/Risk Factors: dehydration, acute bronchitis, UTI, hx CVA, HTN w/acute on chronic systolic/diastolic CHF Clinical Findings: T 36.9, P 112, R 24, WBC 21.7, Lactic acid 1.73, Procalcitonin 0.03 Treatment: IV Cefepime, IV Azithromycin Question: Do you agree with the impression of probable sepsis per Dr. Fischer? Please document a response in Progress Note or Discharge Summary. 1. Yes 2. No 3. Other, with explanation of clinical findings 4. Clinically undetermined, no explanation for clinical findings. PHYSICIAN RESPONSE Do you agree w/Consulting Dx?: No Please remember a lack of response to the above will prompt a phone page by CDI/Coding staff. In responding to this query, please exercise your independent professional judgment. The purpose of this communication is to more accurately reflect the complexity of your patients condition. The fact that a question is asked does not imply that any particular answer is desired or expected. Thank you for your timely response to this clarification. Requestors name: [place] THIS PHYSICIAN QUERY FORM IS A PERMANENT PART OF THE MEDICAL RECORD MILTON CARRILLO Aug 02, 2020 10:36 JEROME VERDE DO Aug 02, 2020 10:51
== END 2020-08-01 14:29 | disposition home health service (06) | DRG 202 ==
LOC: EDUNIT# 15:30 → ER 15:31 → 4TH 17:32
PROVIDERS: ADMIT Internal Medicine; ATTEND Internal Medicine
DX: J20.9 Acute bronchitis, unspecified (principal); N39.0 Urinary tract infection, site not specified; I69.351 Hemiplegia and hemiparesis following cerebral infarction affecting right dominant side; I50.42 Chronic combined systolic (congestive) and diastolic (congestive) heart failure; J43.9 Emphysema, unspecified; I69.391 Dysphagia following cerebral infarction; I69.322 Dysarthria following cerebral infarction; R13.10 Dysphagia, unspecified; Z66 Do not resuscitate; I11.0 Hypertensive heart disease with heart failure; I48.0 Paroxysmal atrial fibrillation; I25.10 Atherosclerotic heart disease of native coronary artery without angina pectoris; R09.02 Hypoxemia; I08.1 Rheumatic disorders of both mitral and tricuspid valves; K21.9 Gastro-esophageal reflux disease without esophagitis; M19.91 Primary osteoarthritis, unspecified site; M06.9 Rheumatoid arthritis, unspecified; M54.9 Dorsalgia, unspecified; F41.9 Anxiety disorder, unspecified; F32.9 Major depressive disorder, single episode, unspecified; E78.00 Pure hypercholesterolemia, unspecified; E78.5 Hyperlipidemia, unspecified; F03.90 Unspecified dementia, unspecified severity, without behavioral disturbance, psychotic disturbance, mood disturbance, and anxiety; Z87.891 Personal history of nicotine dependence; Z79.01 Long term (current) use of anticoagulants; Z20.828 Contact with and (suspected) exposure to other viral communicable diseases; Z93.1 Gastrostomy status; Z95.5 Presence of coronary angioplasty implant and graft; Z87.01 Personal history of pneumonia (recurrent)
CPT/HCPCS: 36415; 51701; 70450; 71045; 80053; 81000; 83605; 84145; 85007; 85025; 85027; 85610; 87040; 87088; 87635; 93005

== ENCOUNTER → 2020-11-12 | Outpatient (CLI) | payer MEDICARE, OTHER ==
[~2020-11-12] MED LIST changes: +AZIT250T12 PO; +BAMLANIVIMAB (NON FORM) 700 MG in NS (IVPB) 250 ML IV ONE; +DILT-27 PO; +DILT240C91 PO; +EPINEPHrine INJECTION 1 MG/ML AMP IM PRN; -MONT10TA26 PO; +MONT10TA97 PO; +NITR-65 PO; +diphenhydrAMINE 50 MG/ML INJ (BENADRYL) IV PRN
[2020-11-12 13:07] VITALS: BP 154/88
[2020-11-12 14:29] VITALS: BP 153/94
[2020-11-12 14:30] VITALS: BP 153/94
== END ==
LOC: INFUSION 12:47
PROVIDERS: ATTEND Nurse Practitioner Family
DX: U07.1 COVID-19 (principal)

== ENCOUNTER 2021-01-07 08:45 | Emergency (ER) | payer MEDICARE, OTHER ==
[~2021-01-07] VITALS: Ht 162.5 cm; Wt 48.0 kg
[~2021-01-07 08:45] MED LIST changes: -BAMLANIVIMAB (NON FORM) 700 MG in NS (IVPB) 250 ML IV ONE; -EPINEPHrine INJECTION 1 MG/ML AMP IM PRN; -LISI10TA2 PO; +LISI10TA25 PO; +MONT10TA32 PO; -MONT10TA97 PO; -diphenhydrAMINE 50 MG/ML INJ (BENADRYL) IV PRN
[2021-01-07 08:59] LABS: BASOPHILS # (AUTO) 0.1 10^3/uL (0.0-0.1); BASOPHILS % (AUTO) 1 % (0-10); EOSINOPHILS # (AUTO) 0.3 10^3/uL (0.0-0.3); EOSINOPHILS % (AUTO) 3 % (0-10); HEMATOCRIT 40 % (35-52); HEMOGLOBIN 12.4 g/dL (11.5-16.0); LYMPHOCYTES # (AUTO) 1.2 10^3/uL (1.0-4.0); LYMPHOCYTES % (AUTO) 13 % (12-44); MEAN CORPUSCULAR HEMOGLOBIN 29 pg (25-34); MEAN CORPUSCULAR HGB CONC 31 g/dL (32-36); MEAN CORPUSCULAR VOLUME 93 fL (80-99); MONOCYTES # (AUTO) 0.6 10^3/uL (0.0-1.0); MONOCYTES % (AUTO) 6 % (0-12); NEUTROPHILS # (AUTO) 7.3 10^3/uL (1.8-7.8); NEUTROPHILS % (AUTO) 77 % (42-75); PLATELET COUNT 243 10^3/uL (130-400); WHITE BLOOD COUNT 9.5 10^3/uL (4.3-11.0)
[2021-01-07] MEDS ORDERED: RT-ALBUTEROL/IPRATROPIUM 3 ML (DUONEB) VIAL INH ONE ×2 (09:00→10:30)
[2021-01-07] MEDS ORDERED: methylPREDNISolone 125 MG (Solu-MEDROL) VIAL IVP ONE (09:00)
[2021-01-07 09:18] LABS: ALANINE AMINOTRANSFERASE 37 U/L (0-55); ALBUMIN 3.5 GM/DL (3.2-4.5); ALKALINE PHOSPHATASE 140 U/L (40-136); BILIRUBIN,TOTAL 1.7 MG/DL (0.1-1.0); BUN/CREATININE RATIO 18; CALCIUM 9.4 MG/DL (8.5-10.1); CARBON DIOXIDE 29 MMOL/L (21-32); CHLORIDE 101 MMOL/L (98-107); CREATININE SERUM 0.73 MG/DL (0.60-1.30); GFR ESTIMATED > 60; GLUCOSE 101 MG/DL (70-105); POTASSIUM 3.9 MMOL/L (3.6-5.0); SODIUM 139 MMOL/L (135-145); TOTAL PROTEIN 6.8 GM/DL (6.4-8.2)
--- NOTE | 2021-01-07 09:27 | Diagnostic Imaging Report ---
INDICATION: Shortness of air. Difficulty breathing. COMPARISON: 07/30/2020. FINDINGS: A single frontal radiographic view of the chest was obtained and shows mild cardiomegaly and pulmonary vascular congestion. The lungs continue to show diffuse prominence of the interstitium. There are, however, new scattered alveolar opacities, greatest within the bilateral mid and lower lung beltran. No large effusion or pneumothorax is seen. The osseous structures show no gross acute abnormalities. IMPRESSION: 1. Cardiomegaly with mild vascular congestion. 2. Bilateral mixed interstitial and alveolar opacities, suspicious for mixed pulmonary edema. Infiltrate is also a consideration. Clinical correlation is advised. Dictated by: Dictated on workstation # [id number]
[2021-01-07 09:59] LABS: FREE T4 (FREE THYROXINE) 0.88 NG/DL (0.70-1.48)
--- NOTE | 2021-01-07 10:23 | ED Respiratory ---
General Chief Complaint: Respiratory Problems Stated Complaint: SOB Nursing Triage Note: TO ED PER EMS FAMILY REPORT TO EMS THAT PATIENT HAS BEEN WHEEZING TX BY FAMILY GEOSPATIAL INTELLIGENCE ANALYST. PATIENT HAD COVID IN OCT. Source: patient, family Exam Limitations: no limitations History of Present Illness Date Seen by Provider: Jan 07, 2021 Time Seen by Provider: 08:47 Initial Comments This is 75-year-old woman with history of COPD and CHF presents to the emergency room via EMS with increased shortness of breath and wheezing today. She is here at the request of her family. Patient does not particularly desire to be here or think she needs treatment. She did receive a nebulizer treatment prior to leaving the home and that did help her some. She uses oxygen via nasal cannula at 2 L/min at home. She had a COVID-19 in October. Allergies and Home Medications Allergies Coded Allergies: cefdinir (Unverified Allergy, Mild, Rash, 11/12/20) Sulfa (Sulfonamide Antibiotics) (Verified Allergy, Unknown, 12/27/17) Home Medications ALPRAZolam 0.25 Mg Tab, 0.125 MG PO HS, (Reported) Acetaminophen 650 Mg Tablet.er, 1,300 MG PO Q8H PRN for PAIN-MILD (1-4), (Reported) Apixaban 5 Mg Tablet, 5 MG PO BID, (Reported) Aspirin 81 Mg Tab.chew, 81 MG PO HS, (Reported) Atorvastatin Calcium 20 Mg Tablet, 20 MG PO HS, (Reported) Azithromycin 250 Mg Tablet, 250 MG PO HS Prescribed by: JEROME NEAL on 08/01/20 1128 Azithromycin 250 Mg Tablet, 250 MG PO DAILY Start morning of January 08 Prescribed by: JACQUELINE PORTER on 01/07/21 1029 Carvedilol 6.25 Mg Tablet, 6.25 MG PO BID, (Reported) Cefdinir 300 Mg Capsule, 300 MG PO BID Prescribed by: JEROME NEAL on 08/01/20 1128 Diltiazem HCl 240 Mg Cap.er.24h, 240 MG PO DAILY Prescribed by: JEROME NEAL on 08/01/20 1128 Flaxseed Oil 1,000 Mg Capsule, 1,000 MG PO DAILY, (Reported) Hydroxyzine HCl 10 Mg Tablet, 10 MG PO TID PRN for ANXIETY, (Reported) LAST FILLED 03-15-2020 #90 Ipratropium/Albuterol Sulfate 3 Ml Ampul.neb, 3 ML NEB QID PRN for SHORTNESS OF BREATH, (Reported) Levothyroxine Sodium 50 Mcg Tablet, 50 MCG PO DAILY, (Reported) Miconazole Nitrate 90 Gm Powder, 0 GM TOP BID Prescribed by: JEROME NEAL on 05/23/20 1044 Miconazole Nitrate 90 Gm Powder, 0 GM TOP BID PRN for RASH Prescribed by: JEROME ENAL on 05/23/20 1044 Montelukast Sodium 10 Mg Tablet, 10 MG PO DAILY, (Reported) Nitrofurantoin Monohyd/M-Cryst 100 Mg Capsule, 1 TAB PO DAILY Take 1 pill daily AFTER completing Omnicef for 10 dasees to prevent UTI Prescribed by: JEROME NEAL on 08/01/20 1128 Prednisone 20 Mg Tab, 40 MG PO DAILY Prescribed by: JACQUELINE POTRER on 01/07/21 1029 [Instaflex] , 1 TAB PO DAILY, (Reported) Patient Home Medication List Home Medication List Reviewed: Yes Review of Systems Review of Systems Constitutional: no symptoms reported EENTM: no symptoms reported Respiratory: see HPI Cardiovascular: no symptoms reported Gastrointestinal: no symptoms reported Genitourinary: no symptoms reported : No Musculoskeletal: no symptoms reported Skin: no symptoms reported Psychiatric/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: No Symptoms Reported Hematologic/Lymphatic: No Symptoms Reported Immunological/Allergic: no symptoms reported Past Zpxggma-Xezuyf-Kxpywv Hx Past Med/Social Hx: Reviewed Nursing Past Med/Soc Hx Patient Social History Alcohol Use: Denies Use Smoking Status: Former Smoker Type Used: Cigarettes Former Smoker, Quit: Aug 27, 2004 2nd Hand Smoke Exposure: No Recent Infectious Disease Expo: No Recent Hopitalizations: Yes (april 2020-stroke) Immunizations Up To Date Tetanus Booster (TDap): Unknown Date of Pneumonia Vaccine: Sep 17, 2015 Date of Influenza Vaccine: Jul 19, 2019 Seasonal Allergies Seasonal Allergies: No Past Medical History Surgeries: Yes (CARDIAC CATH X 3--STENTS X 4) Cardiac, Coronary Stent, Gallbladder, Tubal Ligation Respiratory: Yes (COVID-, October,) Pneumonia, COPD (Oxygen via nasal cannula at 2 L/min) Currently Using CPAP: No Currently Using BIPAP: No Cardiac: Yes (CHF; CARDIAC CATHS X 3 WITH STENTS X 4) Atrial Fibrillation, Coronary Artery Disease, High Cholesterol, Hypertension 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: Yes Dementia, Stroke : No Reproductive Disorders: No GARBAGE PERSON History: Menopausal Sexually Transmitted Disease: No HIV/AIDS: No Genitourinary: Yes Bladder Infection Gastrointestinal: Yes Gastroesophageal Reflux Musculoskeletal: Yes Arthritis, Rheumatoid Arthritis, Chronic Back Pain Endocrine: No HEENT: Yes (ONGOING PROBLEMS WITH "CLICKING" NOISE IN LEFT EAR. ) Loss of Vision: Denies Cancer: No Psychosocial: Yes Anxiety, Depression Integumentary: No Blood Disorders: No Adverse Reaction/Blood Tranf: No Family Medical History Cardiovascular disease 19 MOTHER Diabetes mellitus 19 MOTHER Hypertension 19 MOTHER No Pertinent Family Hx LONG HISTORY OF NON-COMPLIANCE Physical Exam Vital Signs - First Documented 01/07/21 09:05 Temp 36.1 Pulse 76 Resp 18 B/P (MAP) 166/99 (121) Pulse Ox 96 O2 Delivery Nasal Cannula O2 Flow Rate 3.00 Capillary Refill : Less Than 3 Seconds Height: 5'4.00" Weight: 170lbs. 0oz. 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 II-XII nml as tested, alert, oriented x 3 Skin: normal color, warm/dry Progress/Results/Core Measures Suspected Sepsis Recent Fever Within 48 Hours: No Infection Criteria Present: None New/Unexplained Altered Menta: No Sepsis Screen: No Definite Risk SIRS Temperature: Pulse: 76 Respiratory Rate: 18 Laboratory Tests 01/07/21 08:50: White Blood Count 9.5 Blood Pressure 166 /99 Mean: 121 Laboratory Tests 01/07/21 08:50: Creatinine 0.73, Platelet Count 243, Total Bilirubin 1.7H Results/Orders Lab Results Laboratory Tests Test 01/07/21 08:50 Range/Units White Blood Count 9.5 4.3-11.0 10^3/uL Red Blood Count 4.29 3.80-5.11 10^6/uL Hemoglobin 12.4 11.5-16.0 g/dL Hematocrit 40 35-52 % Mean Corpuscular Volume 93 80-99 fL Mean Corpuscular Hemoglobin 29 25-34 pg Mean Corpuscular Hemoglobin Concent 31 L 32-36 g/dL Red Cell Distribution Width 13.7 10.0-14.5 % Platelet Count 243 130-400 10^3/uL Mean Platelet Volume 10.0 9.0-12.2 fL Immature Granulocyte % (Auto) 0 % Neutrophils (%) (Auto) 77 H 42-75 % Lymphocytes (%) (Auto) 13 12-44 % Monocytes (%) (Auto) 6 0-12 % Eosinophils (%) (Auto) 3 0-10 % Basophils (%) (Auto) 1 0-10 % Neutrophils # (Auto) 7.3 1.8-7.8 10^3/uL Lymphocytes # (Auto) 1.2 1.0-4.0 10^3/uL Monocytes # (Auto) 0.6 0.0-1.0 10^3/uL Eosinophils # (Auto) 0.3 0.0-0.3 10^3/uL Basophils # (Auto) 0.1 0.0-0.1 10^3/uL Immature Granulocyte # (Auto) 0.0 0.0-0.1 10^3/uL Sodium Level 139 135-145 MMOL/L Potassium Level 3.9 3.6-5.0 MMOL/L Chloride Level 101 98-107 MMOL/L Carbon Dioxide Level 29 21-32 MMOL/L Anion Gap 9 5-14 MMOL/L Blood Urea Nitrogen 13 7-18 MG/DL Creatinine 0.73 0.60-1.30 MG/DL Estimat Glomerular Filtration Rate > 60 BUN/Creatinine Ratio 18 Glucose Level 101 70-105 MG/DL Calcium Level 9.4 8.5-10.1 MG/DL Corrected Calcium 9.8 8.5-10.1 MG/DL Total Bilirubin 1.7 H 0.1-1.0 MG/DL Aspartate Amino Transf (AST/SGOT) 37 H 5-34 U/L Alanine Aminotransferase (ALT/SGPT) 37 0-55 U/L Alkaline Phosphatase 140 H 40-136 U/L C-Reactive Protein High Sensitivity 1.28 H 0.00-0.50 MG/DL B-Type Natriuretic Peptide 328.5 H <100.0 PG/ML Total Protein 6.8 6.4-8.2 GM/DL Albumin 3.5 3.2-4.5 GM/DL Thyroid Stimulating Hormone (TSH) 1.99 0.35-4.94 UIU/ML Free Thyroxine 0.88 0.70-1.48 NG/DL My Orders Orders - JACQUELINE GONZALEZ MD BNP (01/07/21 08:53) Cbc With Automated Diff (01/07/21 08:53) Comprehensive Metabolic Panel (01/07/21 08:53) Hs C Reactive Protein (01/07/21 08:53) Ed Iv/Invasive Line Start (01/07/21 08:53) Chest 1 View, Ap/Pa Only (01/07/21 08:53) Albuterol/Ipra Inhalation Soln (Duoneb I (01/07/21 09:00) Svn Small Volume Nebulizer (01/07/21 08:53) Methylprednisolone Sod Succ (Solu-Medrol (01/07/21 09:00) Thyroid Stimulating Hormone (01/07/21 09:21) Free T4 (Free Thyroxine) (01/07/21 09:21) Albuterol/Ipra Inhalation Soln (Duoneb I (01/07/21 10:30) Svn Small Volume Nebulizer (01/07/21 10:17) Azithromycin Tablet (Zithromax Tablet) (01/07/21 10:30) Furosemide Tablet (Lasix Tablet) (01/07/21 10:30) Potassium Chloride (Tablet) (Klor Con Ta (01/07/21 10:30) Medications Given in ED Current Medications Medications Dose Ordered Sig/Kadeem Route Start Time Stop Time Status Last Admin Dose Admin Albuterol/ Ipratropium 3 ml ONCE ONCE INH 01/07/21 09:00 01/07/21 09:01 DC 01/07/21 09:09 3 ML Albuterol/ Ipratropium 3 ml ONCE ONCE INH 01/07/21 10:30 01/07/21 10:31 DC 01/07/21 10:21 3 ML Azithromycin 500 mg ONCE ONCE PO 01/07/21 10:30 01/07/21 10:31 DC 01/07/21 10:34 500 MG Furosemide 40 mg ONCE ONCE PO 01/07/21 10:30 01/07/21 10:31 DC 01/07/21 10:40 40 MG Methylprednisolone Sodium Succinate 125 mg ONCE ONCE IVP 01/07/21 09:00 01/07/21 09:01 DC 01/07/21 09:01 125 MG Potassium Chloride 10 meq ONCE ONCE PO 01/07/21 10:30 01/07/21 10:31 DC 01/07/21 10:34 10 MEQ Vital Signs/I&O 01/07/21 01/07/21 01/07/21 01/07/21 09:05 09:10 10:23 11:27 Temp 36.1 Pulse 76 78 Resp 18 18 B/P (MAP) 166/99 (121) 164/100 Pulse Ox 96 95 95 95 O2 Delivery Nasal Cannula Nasal Cannula Nasal Cannula Nasal Cannula O2 Flow Rate 3.00 1.00 2.00 2.00 Capillary Refill : Less Than 3 Seconds Blood Pressure Mean: 121 Progress Note : Progress Note Patient received DuoNeb treatment x2 and Solu-Medrol. Work-up was relatively unremarkable except for some congestion and possibly infiltrate on the chest x- ray. Patient remarks that she had been on Lasix at one point in time but was taken off for unknown reasons. She was given a dose of Lasix and potassium in the ER. She was also started on a azithromycin to cover for possible secondary pneumonia. See discharge instructions. Diagnostic Imaging Diagonstic Imaging: Xray Plain Films/CT/US/NM/MRI: chest Comments Chest x-ray viewed by me and report reviewed. See report below: NAME: KELLEY GARCIA [facility] REC#: [id number] PT STATUS: REG ER : 1945 PHYSICIAN: JACQUELINE GONZALEZ MD ADMIT DATE: 01/07/21/ER Draft Date of Exam:01/07/21 CHEST 1 VIEW, AP/PA ONLY INDICATION: Shortness of air. Difficulty breathing. COMPARISON: 07/30/2020. FINDINGS: A single frontal radiographic view of the chest was obtained and shows mild cardiomegaly and pulmonary vascular congestion. The lungs continue to show diffuse prominence of the interstitium. There are, however, new scattered alveolar opacities, greatest within the bilateral mid and lower lung beltran. No large effusion or pneumothorax is seen. The osseous structures show no gross acute abnormalities. IMPRESSION: 1. Cardiomegaly with mild vascular congestion. 2. Bilateral mixed interstitial and alveolar opacities, suspicious for mixed pulmonary edema. Infiltrate is also a consideration. Clinical correlation is advised. Dictated on workstation # [id number] Dict: 01/07/21919 Trans: 01/07/21926 [id number] Interpreted by: LULI ROSS MD Departure Impression Primary Impression: COPD with acute exacerbation Additional Impressions: Pulmonary congestion Pulmonary infiltrate Disposition: HOME, SELF-CARE Condition: Improved Departure-Patient Inst. Decision time for Depature: 10:20 Referrals: JEROME NEAL DO (PCP/Family) Primary Care Physician Patient Instructions: Chronic Obstructive Pulmonary Disease (COPD), Including Emphysema Add. Discharge Instructions: Continue using your nebulizer treatments every 4 hours as needed for shortness of breath and wheezing. Complete your steroid therapy and antibiotics as prescribed. Take your first dose of prednisone this afternoon and then continue each morning until gone. Take with food or milk to avoid stomach upset. Complete a azithromycin antibiotic as prescribed. Follow-up with Dr. Neal soon as possible. Return to the emergency room if you have worsening of condition. Please have a low threshold for returning. Call with any questions or concerns. All discharge instructions reviewed with patient and/or family. Voiced understanding. Scripts Azithromycin (Azithromycin) 250 Mg Tablet 250 MG PO DAILY, #4 TAB 0 Refills Start morning of January 08 Prov: JACQUELINE GONZALEZ MD 01/07/21 Prednisone (Prednisone) 20 Mg Tab 40 MG PO DAILY, #8 TAB 0 Refills Prov: JACQUELINE GONZALEZ MD 01/07/21 Copy Copies To 1: JEROME NEAL JOSHUA T MD Jan 07, 2021 10:23
[2021-01-07] MEDS ORDERED: AZIT250T12 PO (10:29)
[2021-01-07] MEDS ORDERED: PRD20T PO (10:29)
[2021-01-07] MEDS ORDERED: FUROSEMIDE 40 MG (LASIX) TAB PO ONE (10:30)
[2021-01-07] MEDS ORDERED: AZITHROMYCIN 250 MG TAB (ZITHROMAX) PO ONE (10:30)
[2021-01-07] MEDS ORDERED: KCL 10 MEQ TAB (MICRO K) PO ONE (10:30)
[2021-01-07 11:27] VITALS: BP 164/100
== END 2021-01-07 11:16 | disposition home or self-care (01) ==
LOC: EDUNIT# 08:46 → ER 08:47
DX: J44.1 Chronic obstructive pulmonary disease with (acute) exacerbation (principal); J81.0 Acute pulmonary edema; R91.8 Other nonspecific abnormal finding of lung field; I11.0 Hypertensive heart disease with heart failure; I50.9 Heart failure, unspecified; I48.91 Unspecified atrial fibrillation; I25.10 Atherosclerotic heart disease of native coronary artery without angina pectoris; F41.9 Anxiety disorder, unspecified; F03.90 Unspecified dementia, unspecified severity, without behavioral disturbance, psychotic disturbance, mood disturbance, and anxiety; F32.9 Major depressive disorder, single episode, unspecified; Z86.16 Personal history of COVID-19; Z99.81 Dependence on supplemental oxygen; Z95.5 Presence of coronary angioplasty implant and graft; Z95.9 Presence of cardiac and vascular implant and graft, unspecified; Z87.01 Personal history of pneumonia (recurrent); Z86.73 Personal history of transient ischemic attack (TIA), and cerebral infarction without residual deficits; Z87.891 Personal history of nicotine dependence; Z79.52 Long term (current) use of systemic steroids; Z79.01 Long term (current) use of anticoagulants; Z79.82 Long term (current) use of aspirin; Z79.890 Hormone replacement therapy; Z88.1 Allergy status to other antibiotic agents; Z88.2 Allergy status to sulfonamides
CPT/HCPCS: 36415; 71045; 80053; 83880; 84439; 84443; 85025; 86141; 94640

== ENCOUNTER → 2021-01-20 | Outpatient (CLI) | payer MEDICARE, OTHER ==
[~2021-01-20] MED LIST changes: +PRD20T PO
--- NOTE | 2021-01-20 16:08 | Diagnostic Imaging Report ---
EXAMINATION: Chest 2 views. HISTORY: Cough. COMPARISON: 01/07/2021 FINDINGS: There is mild edema. Heart is enlarged. There are tiny pleural effusions. No pneumothorax. IMPRESSION: 1. Mild edema and tiny effusions. Dictated by: Dictated on workstation # [id number]
== END ==
LOC: RAD 12:56
PROVIDERS: ATTEND Nurse Practitioner Family
DX: J81.1 Chronic pulmonary edema (principal); J90 Pleural effusion, not elsewhere classified
CPT/HCPCS: 71046

== ENCOUNTER → 2021-03-05 | Outpatient (CLI) | payer MEDICARE, OTHER ==
[2021-03-05 14:04] LABS: BASOPHILS % (AUTO) 0 % (0-10); EOSINOPHILS % (AUTO) 0 % (0-10); HEMATOCRIT 41 % (35-52); HEMOGLOBIN 13.4 g/dL (11.5-16.0); LYMPHOCYTES # (AUTO) 0.9 10^3/uL (1.0-4.0); LYMPHOCYTES % (AUTO) 5 % (12-44); MEAN CORPUSCULAR HEMOGLOBIN 30 pg (25-34); MEAN CORPUSCULAR HGB CONC 33 g/dL (32-36); MEAN CORPUSCULAR VOLUME 90 fL (80-99); MEAN PLATELET VOLUME 10.1 fL (9.0-12.2); MONOCYTES # (AUTO) 0.4 10^3/uL (0.0-1.0); MONOCYTES % (AUTO) 2 % (0-12); NEUTROPHILS # (AUTO) 14.7 10^3/uL (1.8-7.8); NEUTROPHILS % (AUTO) 92 % (42-75); PLATELET COUNT 294 10^3/uL (130-400)
[2021-03-05 14:25] LABS: BAND NEUTROPHILS 1 %; LYMPHOCYTES % (MANUAL) 3 %; MONOCYTES % (MANUAL) 3 %; NEUTROPHILS % (MANUAL) 93 %
[2021-03-05 14:26] LABS: BASOPHILS % (MANUAL) 0 %; EOSINOPHILS % (MANUAL) 0 %; RBC MORPH NORMAL
[2021-03-05 14:42] LABS: ALANINE AMINOTRANSFERASE 23 U/L (0-55); ALBUMIN 3.9 GM/DL (3.2-4.5); ALKALINE PHOSPHATASE 109 U/L (40-136); BILIRUBIN,TOTAL 1.1 MG/DL (0.1-1.0); BUN/CREATININE RATIO 21; CALCIUM 9.8 MG/DL (8.5-10.1); CARBON DIOXIDE 30 MMOL/L (21-32); CHLORIDE 101 MMOL/L (98-107); CREATININE SERUM 0.86 MG/DL (0.60-1.30); GFR ESTIMATED > 60; GLUCOSE 134 MG/DL (70-105); POTASSIUM 4.2 MMOL/L (3.6-5.0); SODIUM 137 MMOL/L (135-145); TOTAL PROTEIN 7.3 GM/DL (6.4-8.2)
== END ==
LOC: LAB 13:46
PROVIDERS: ATTEND Nurse Practitioner Family
DX: I50.9 Heart failure, unspecified (principal); J18.9 Pneumonia, unspecified organism
CPT/HCPCS: 36415; 80053; 83880; 85007; 85027

== ENCOUNTER 2021-03-25 13:09 | Emergency (ER) | payer MEDICARE, OTHER ==
[~2021-03-25] VITALS: Ht 162 cm; Wt 48.0 kg
--- NOTE | 2021-03-25 13:22 | ED General ---
General Stated Complaint: AMS Source of Information: Patient Exam Limitations: No Limitations History of Present Illness Date Seen by Provider: Mar 25, 2021 Time Seen by Provider: 13:12 Initial Comments This is a well-appearing 75-year-old female who presents to the ER per [facility] for "not acting right". Family activated EMS stating that patient was not acting her norm and appeared more disoriented. EMS reports she had a stroke recently and had feeding tube placed. Had feeding tube removed by Dr. Domingo yesterday. Patient states that she feels fine and does not know why she is here. She denies fever, chills, cough, shortness of breath, nausea, vomiting, diarrhea, abdominal pain. She has no complaints. Allergies and Home Medications Allergies Coded Allergies: cefdinir (Unverified Allergy, Mild, Rash, 11/12/20) Sulfa (Sulfonamide Antibiotics) (Verified Allergy, Unknown, 12/27/17) Home Medications ALPRAZolam 0.25 Mg Tab, 0.125 MG PO HS, (Reported) Acetaminophen 650 Mg Tablet.er, 1,300 MG PO Q8H PRN for PAIN-MILD (1-4), (Reported) Apixaban 5 Mg Tablet, 5 MG PO BID, (Reported) Aspirin 81 Mg Tab.chew, 81 MG PO HS, (Reported) Atorvastatin Calcium 20 Mg Tablet, 20 MG PO HS, (Reported) Azithromycin 250 Mg Tablet, 250 MG PO HS Prescribed by: JEROME NEAL on 08/01/201127 Azithromycin 250 Mg Tablet, 250 MG PO DAILY Start morning of January 08 Prescribed by: JACQUELINE PORTER on 01/07/21 1029 Carvedilol 6.25 Mg Tablet, 6.25 MG PO BID, (Reported) Cefdinir 300 Mg Capsule, 300 MG PO BID Prescribed by: JEROME NEAL on 08/01/20 1128 Diltiazem HCl 240 Mg Cap.er.24h, 240 MG PO DAILY Prescribed by: JEROME NEAL on 08/01/20 1128 Flaxseed Oil 1,000 Mg Capsule, 1,000 MG PO DAILY, (Reported) Hydroxyzine HCl 10 Mg Tablet, 10 MG PO TID PRN for ANXIETY, (Reported) LAST FILLED 03-15-2020 #90 Ipratropium/Albuterol Sulfate 3 Ml Ampul.neb, 3 ML NEB QID PRN for SHORTNESS OF BREATH, (Reported) Levothyroxine Sodium 50 Mcg Tablet, 50 MCG PO DAILY, (Reported) Miconazole Nitrate 90 Gm Powder, 0 GM TOP BID Prescribed by: JEROME NEAL on 05/23/20 1044 Miconazole Nitrate 90 Gm Powder, 0 GM TOP BID PRN for RASH Prescribed by: JEROME NEAL on 05/23/20 1044 Montelukast Sodium 10 Mg Tablet, 10 MG PO DAILY, (Reported) Nitrofurantoin Monohyd/M-Cryst 100 Mg Capsule, 1 TAB PO DAILY Take 1 pill daily AFTER completing Omnicef for 10 dasees to prevent UTI Prescribed by: JEROME NEAL on 08/01/20 1128 Nitrofurantoin Monohyd/M-Cryst 100 Mg Capsule, 1 TAB PO BID Prescribed by: LINDSEY BRINK on 03/25/21 1455 Prednisone 20 Mg Tab, 40 MG PO DAILY Prescribed by: JACQUELINE PORTER on 01/07/21 1029 [Instaflex] , 1 TAB PO DAILY, (Reported) Patient Home Medication List Home Medication List Reviewed: Yes Review of Systems Review of Systems Constitutional: see HPI EENTM: no symptoms reported Respiratory: no symptoms reported Cardiovascular: no symptoms reported Gastrointestinal: see HPI Genitourinary: no symptoms reported Musculoskeletal: no symptoms reported Skin: no symptoms reported Psychiatric/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: No Symptoms Reported Hematologic/Lymphatic: See HPI Immunological/Allergic: no symptoms reported Past Xjctfhi-Hkuuav-Vwziop Hx Patient Social History Type Used: Cigarettes Former Smoker, Quit: Aug 27, 2004 2nd Hand Smoke Exposure: No Recent Hopitalizations: Yes (april 2020-stroke) Immunizations Up To Date Tetanus Booster (TDap): Unknown Date of Pneumonia Vaccine: Sep 17, 2015 Date of Influenza Vaccine: Jul 19, 2019 Seasonal Allergies Seasonal Allergies: No Past Medical History Surgeries: Yes (CARDIAC CATH X 3--STENTS X 4) Cardiac, Coronary Stent, Gallbladder, Tubal Ligation Respiratory: Yes (COVID-October,) Pneumonia, COPD Currently Using CPAP: No Currently Using BIPAP: No Cardiac: Yes (CHF; CARDIAC CATHS X 3 WITH STENTS X 4) Atrial Fibrillation, Coronary Artery Disease, High Cholesterol, Hypertension 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: Yes Dementia, Stroke 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 ) Loss of Vision: Denies Cancer: No Psychosocial: Yes Anxiety, Depression Integumentary: No Blood Disorders: No Adverse Reaction/Blood Tranf: No Family Medical History Cardiovascular disease 19 MOTHER Diabetes mellitus 19 MOTHER Hypertension 19 MOTHER No Pertinent Family Hx LONG HISTORY OF NON-COMPLIANCE Physical Exam Vital Signs Vital Signs - First Documented 03/25/21 13:10 Temp 36.4 Pulse 79 Resp 18 B/P (MAP) 161/97 (118) Pulse Ox 100 O2 Delivery Nasal Cannula O2 Flow Rate 3.00 Capillary Refill : Height, Weight, BMI Height: 5'4.00" Weight: 170lbs. 0oz. 77.593708mg; 18.00 BMI Method:Stated General Appearance: No Apparent Distress, WD/WN Eyes: Bilateral Eye Normal Inspection, Bilateral Eye PERRL, Bilateral Eye EOMI HEENT: PERRL/EOMI, Normal ENT Inspection, Pharynx Normal, Moist Mucous Membranes Neck: Full Range of Motion, Non Tender, Supple Respiratory: Chest Non Tender, Lungs Clear, Normal Breath Sounds, No Accessory Muscle Use, No Respiratory Distress Cardiovascular: No Edema, Normal Peripheral Pulses, Irregularly Irregular Gastrointestinal: Normal Bowel Sounds, Non Tender, Soft Extremity: Normal Capillary Refill, Normal Inspection, No Pedal Edema Neurologic/Psychiatric: Alert, Oriented x3, No Motor/Sensory Deficits, 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; No Aphasia, No EOM Palsy, No Facial Droop, No Sensory Deficit Skin: Normal Color, Warm/Dry Progress/Results/Core Measures Suspected Sepsis SIRS Temperature: Pulse: Respiratory Rate: Laboratory Tests 03/25/21 13:20: White Blood Count 7.9 Blood Pressure / Mean: Laboratory Tests 03/25/21 13:20: Creatinine 0.74, Platelet Count 243, Total Bilirubin 1.6H Results/Orders Lab Results Laboratory Tests Test 03/25/21 13:20 03/25/21 14:30 Range/Units White Blood Count 7.9 4.3-11.0 10^3/uL Red Blood Count 4.27 3.80-5.11 10^6/uL Hemoglobin 12.6 11.5-16.0 g/dL Hematocrit 39 35-52 % Mean Corpuscular Volume 91 80-99 fL Mean Corpuscular Hemoglobin 30 25-34 pg Mean Corpuscular Hemoglobin Concent 32 32-36 g/dL Red Cell Distribution Width 13.3 10.0-14.5 % Platelet Count 243 130-400 10^3/uL Mean Platelet Volume 10.4 9.0-12.2 fL Immature Granulocyte % (Auto) 0 % Neutrophils (%) (Auto) 72 42-75 % Lymphocytes (%) (Auto) 17 12-44 % Monocytes (%) (Auto) 7 0-12 % Eosinophils (%) (Auto) 4 0-10 % Basophils (%) (Auto) 0 0-10 % Neutrophils # (Auto) 5.7 1.8-7.8 10^3/uL Lymphocytes # (Auto) 1.3 1.0-4.0 10^3/uL Monocytes # (Auto) 0.5 0.0-1.0 10^3/uL Eosinophils # (Auto) 0.3 0.0-0.3 10^3/uL Basophils # (Auto) 0.0 0.0-0.1 10^3/uL Immature Granulocyte # (Auto) 0.0 0.0-0.1 10^3/uL Sodium Level 142 135-145 MMOL/L Potassium Level 3.7 3.6-5.0 MMOL/L Chloride Level 100 98-107 MMOL/L Carbon Dioxide Level 31 21-32 MMOL/L Anion Gap 11 5-14 MMOL/L Blood Urea Nitrogen 10 7-18 MG/DL Creatinine 0.74 0.60-1.30 MG/DL Estimat Glomerular Filtration Rate > 60 BUN/Creatinine Ratio 14 Glucose Level 102 70-105 MG/DL Calcium Level 9.3 8.5-10.1 MG/DL Corrected Calcium 9.8 8.5-10.1 MG/DL Total Bilirubin 1.6 H 0.1-1.0 MG/DL Aspartate Amino Transf (AST/SGOT) 21 5-34 U/L Alanine Aminotransferase (ALT/SGPT) 19 0-55 U/L Alkaline Phosphatase 103 40-136 U/L Total Protein 6.6 6.4-8.2 GM/DL Albumin 3.4 3.2-4.5 GM/DL Urine Color YELLOW Urine Clarity SL CLOUDY Urine pH 7.5 5-9 Urine Specific Earling 1.015 L 1.016-1.022 Urine Protein NEGATIVE NEGATIVE Urine Glucose (UA) NEGATIVE NEGATIVE Urine Ketones NEGATIVE NEGATIVE Urine Nitrite POSITIVE H NEGATIVE Urine Bilirubin NEGATIVE NEGATIVE Urine Urobilinogen 1.0 < = 1.0 MG/DL Urine Leukocyte Esterase 3+ H NEGATIVE Urine RBC (Auto) 2+ H NEGATIVE Urine RBC 5-10 H /HPF Urine WBC >100 H /HPF Urine Squamous Epithelial Cells 5-10 /HPF Urine Crystals NONE /LPF Urine Bacteria LARGE H /HPF Urine Casts NONE /LPF Urine Mucus NEGATIVE /LPF Urine Culture Indicated YES My Orders Orders - [employer] Ct Abdomen/Pelvis Wo (03/25/21 13:17) Ct Head Wo-R/O Stroke (03/25/21 13:17) Cbc With Automated Diff (03/25/21 13:17) Comprehensive Metabolic Panel (03/25/21 13:17) Urinalysis (03/25/21 13:17) Urine Culture (03/25/21 14:30) Vital Signs/I&O 03/25/21 03/25/21 13:10 15:14 Temp 36.4 Pulse 79 68 Resp 18 18 B/P (MAP) 161/97 (118) 150/88 (118) Pulse Ox 100 100 O2 Delivery Nasal Cannula O2 Flow Rate 3.00 3.00 Capillary Refill : Progress Note : Progress Note Patient examined and in no acute distress. No focal or gross neurological deficits. Has mild right sided weakness, which she states is her baseline since her prior stroke. She is noted to be on Eliquis. Answers questions ap propriately. Will obtain CT head without, basic labs, UA. Urinalysis indicates urinary tract infection. Remaining labs unremarkable. CT head without negative for acute pathology. Reviewed discharge plan of care with patient and she is agreeable with plan. Continued to have no complaints through her emergency department course. Diagnostic Imaging Diagonstic Imaging: CT Plain Films/CT/US/NM/MRI: head Comments [facility]. [place], [place] NAME: KELLEY GARCIA Luis Armando [facility] REC#: [id number] PT STATUS: DEP ER : 1945 PHYSICIAN: [employer] ADMIT DATE: 03/25/21/ER Signed Date of Exam:03/25/21 CT HEAD WO-R/O STROKE CLINICAL INDICATION: Patient with history of CVA. Non-stroke activation. Patient has no deficit and altered mental status. EXAM: Axial CT scan of the brain performed without IV contrast. High-resolution axial CT brain images with sagittal and coronal reformations were also created. Auto Exposure Controls were utilized during the CT exam to meet ALARA standards for radiation dose reduction. COMPARISON: Head CT without contrast dated 07/30/2020. FINDINGS: There is no evidence of interval acute cerebral infarct, intracranial hemorrhage, brain herniation or midline shift. There is no dense vessel sign seen. There is diffuse brain parenchymal volume loss again seen. There is no significant change to multiple patchy low-attenuation areas involving the posterior left frontal lobe rushing radiata, right basal ganglia regions concerning for small chronic infarcts. There are low-density changes involving the bilateral basal ganglia regions which may represent prominent perivascular spaces versus chronic infarcts. There is diffuse low attenuation seen throughout both cerebral hemispheres which has not significantly changed in interim. There is diffuse brain parenchymal volume loss. There is no hydrocephalus, brain herniation or midline shift. Basal cisterns are unremarkable. The extracranial soft tissue, skull, and orbits show no acute finding. Stable chronic compression deformity of the nasal bone again seen. There is mild mucosal thickening involving the sphenoid sinus. Mastoid air cells are clear. IMPRESSION: 1: There is no dense vessel sign seen. There is no definite interval CT evidence of interval acute cerebral infarction, intracranial hemorrhage, or mass seen. The diffuse low attenuation changes throughout the brain parenchyma may possibly obscure more subtle findings. If there is clinical concern for acute cerebral infarction, MRI of the brain would better evaluate. 2: There is no significant change to the small bilateral cerebral hemisphere chronic infarcts. 3: There is no significant change to the diffuse low attenuation white matter changes throughout both cerebral hemispheres which may be related to chronic small vessel ischemic disease and leukoaraiosis. Results of this report was discussed with Lindsey Brink APRN via the telephone 03/25/2021 at 1355 hours. Dictated by: Dictated on workstation # [id number] Dict: 03/25/21 1348 Trans: 03/25/21 1708 [id number] Interpreted by: ARIA CHAVIS MD Electronically signed by: ARIA CHAVIS MD 03/25/21 1708 Reviewed: Reviewed by Me Diagonstic Imaging: CT Plain Films/CT/US/NM/MRI: abdomen, pelvis Comments [facility]. [place], [place] NAME: KELLEY GARCIA [facility] REC#: [id number] PT STATUS: REG ER : 1945 PHYSICIAN: [employer] ADMIT DATE: 03/25/21/ER Signed Date of Exam:03/25/21 CT ABDOMEN/PELVIS WO PROCEDURE: CT abdomen and pelvis without contrast. TECHNIQUE: Multiple contiguous axial images were obtained through the abdomen and pelvis without the use of intravenous contrast. Auto Exposure Controls were utilized during the CT exam to meet ALARA standards for radiation dose reduction. INDICATION: Feeding tube removed yesterday. Erythema over the tube site. COMPARISON: 11/02/2018. FINDINGS: The heart is prominent. Interstitial markings are seen throughout the lungs with trace bilateral pleural effusions. Excreted contrast is seen in the collecting system in the right kidney. No evidence of hydronephrosis or obstructing calculi. The urinary bladder is nondistended. The liver, pancreas, and adrenal glands have a normal appearance. Calcified granulomas are seen throughout the spleen. The gallbladder surgically absent. There is no pathologically enlarged mesenteric or retroperitoneal adenopathy. A tract is seen in the anterior abdomen representing the patient's recent PEG tube. No evidence of abscess or fistula formation at this time. The bowel loops are nondilated. There is no free fluid or free air. No acute osseous abnormalities. Prior hip pinning is seen in the proximal left femur. There is calcified aortic and iliac atherosclerotic plaque without aneurysm. There is no free air, loculated collection, or adenopathy in the pelvis. IMPRESSION: 1. Tract in the anterior abdomen representing the patient's recent PEG tube. No evidence of associated abscess or persistent fistula at this time. Recommend follow-up as indicated. 2. Cardiomegaly with likely interstitial edema. Trace pleural effusions are noted in the lung bases. 3. No acute abnormalities are seen in the abdomen and pelvis. Dictated by: Dictated on workstation # [id number] Dict: 03/25/21 1353 Trans: 03/25/21 1406 [id number] Interpreted by: BUSHRA WILSON DO Electronically signed by: BUSHRA WILSON DO 03/25/21 1406 Reviewed: Reviewed by Me Departure Impression Primary Impression: UTI (urinary tract infection) Disposition: 01 HOME, SELF-CARE Condition: Improved Departure-Patient Inst. Decision time for Depature: 14:54 Referrals: JEROME NEAL DO (PCP/Family) Primary Care Physician Patient Instructions: Urinary Tract Infection, Adult (DC) Add. Discharge Instructions: Plan: 1. Drink plenty of fluids. 2. Take Macrobid twice a day as directed for 7 days. 3. Return to ER for any new, concerning, or worsening symptoms. Scripts Nitrofurantoin Monohyd/M-Cryst (Macrobid 100 mg Capsule) 100 Mg Capsule 1 TAB PO BID for 7 Days, #14 CAP 0 Refills Prov: [employer] 03/25/21 [employer] Mar 25, 2021 13:22
[2021-03-25 13:42] LABS: BASOPHILS % (AUTO) 0 % (0-10); EOSINOPHILS # (AUTO) 0.3 10^3/uL (0.0-0.3); EOSINOPHILS % (AUTO) 4 % (0-10); HEMATOCRIT 39 % (35-52); HEMOGLOBIN 12.6 g/dL (11.5-16.0); LYMPHOCYTES # (AUTO) 1.3 10^3/uL (1.0-4.0); LYMPHOCYTES % (AUTO) 17 % (12-44); MEAN CORPUSCULAR HEMOGLOBIN 30 pg (25-34); MEAN CORPUSCULAR HGB CONC 32 g/dL (32-36); MEAN CORPUSCULAR VOLUME 91 fL (80-99); MEAN PLATELET VOLUME 10.4 fL (9.0-12.2); MONOCYTES # (AUTO) 0.5 10^3/uL (0.0-1.0); MONOCYTES % (AUTO) 7 % (0-12); NEUTROPHILS # (AUTO) 5.7 10^3/uL (1.8-7.8); NEUTROPHILS % (AUTO) 72 % (42-75); PLATELET COUNT 243 10^3/uL (130-400); WHITE BLOOD COUNT 7.9 10^3/uL (4.3-11.0)
[2021-03-25 13:50] LABS: ALBUMIN 3.4 GM/DL (3.2-4.5); CHLORIDE 100 MMOL/L (98-107); POTASSIUM 3.7 MMOL/L (3.6-5.0); SODIUM 142 MMOL/L (135-145)
[2021-03-25 13:52] LABS: CALCIUM 9.3 MG/DL (8.5-10.1)
[2021-03-25 13:53] LABS: GLUCOSE 102 MG/DL (70-105); TOTAL PROTEIN 6.6 GM/DL (6.4-8.2)
[2021-03-25 13:54] LABS: BILIRUBIN,TOTAL 1.6 MG/DL (0.1-1.0); CARBON DIOXIDE 31 MMOL/L (21-32)
[2021-03-25 13:56] LABS: ALKALINE PHOSPHATASE 103 U/L (40-136); CREATININE SERUM 0.74 MG/DL (0.60-1.30); GFR ESTIMATED > 60
[2021-03-25 13:57] LABS: BUN/CREATININE RATIO 14
[2021-03-25 13:59] LABS: ALANINE AMINOTRANSFERASE 19 U/L (0-55)
--- NOTE | 2021-03-25 14:01 | Diagnostic Imaging Report ---
PROCEDURE: CT abdomen and pelvis without contrast. TECHNIQUE: Multiple contiguous axial images were obtained through the abdomen and pelvis without the use of intravenous contrast. Auto Exposure Controls were utilized during the CT exam to meet ALARA standards for radiation dose reduction. INDICATION: Feeding tube removed yesterday. Erythema over the tube site. COMPARISON: 11/02/2018. FINDINGS: The heart is prominent. Interstitial markings are seen throughout the lungs with trace bilateral pleural effusions. Excreted contrast is seen in the collecting system in the right kidney. No evidence of hydronephrosis or obstructing calculi. The urinary bladder is nondistended. The liver, pancreas, and adrenal glands have a normal appearance. Calcified granulomas are seen throughout the spleen. The gallbladder surgically absent. There is no pathologically enlarged mesenteric or retroperitoneal adenopathy. A tract is seen in the anterior abdomen representing the patient's recent PEG tube. No evidence of abscess or fistula formation at this time. The bowel loops are nondilated. There is no free fluid or free air. No acute osseous abnormalities. Prior hip pinning is seen in the proximal left femur. There is calcified aortic and iliac atherosclerotic plaque without aneurysm. There is no free air, loculated collection, or adenopathy in the pelvis. IMPRESSION: 1. Tract in the anterior abdomen representing the patient's recent PEG tube. No evidence of associated abscess or persistent fistula at this time. Recommend follow-up as indicated. 2. Cardiomegaly with likely interstitial edema. Trace pleural effusions are noted in the lung bases. 3. No acute abnormalities are seen in the abdomen and pelvis. Dictated by: Dictated on workstation # [id number]
--- NOTE | 2021-03-25 14:05 | Diagnostic Imaging Report ---
CLINICAL INDICATION: Patient with history of CVA. Non-stroke activation. Patient has no deficit and altered mental status. EXAM: Axial CT scan of the brain performed without IV contrast. High-resolution axial CT brain images with sagittal and coronal reformations were also created. Auto Exposure Controls were utilized during the CT exam to meet ALARA standards for radiation dose reduction. COMPARISON: Head CT without contrast dated 07/30/2020. FINDINGS: There is no evidence of interval acute cerebral infarct, intracranial hemorrhage, brain herniation or midline shift. There is no dense vessel sign seen. There is diffuse brain parenchymal volume loss again seen. There is no significant change to multiple patchy low-attenuation areas involving the posterior left frontal lobe rushing radiata, right basal ganglia regions concerning for small chronic infarcts. There are low-density changes involving the bilateral basal ganglia regions which may represent prominent perivascular spaces versus chronic infarcts. There is diffuse low attenuation seen throughout both cerebral hemispheres which has not significantly changed in interim. There is diffuse brain parenchymal volume loss. There is no hydrocephalus, brain herniation or midline shift. Basal cisterns are unremarkable. The extracranial soft tissue, skull, and orbits show no acute finding. Stable chronic compression deformity of the nasal bone again seen. There is mild mucosal thickening involving the sphenoid sinus. Mastoid air cells are clear. IMPRESSION: 1: There is no dense vessel sign seen. There is no definite interval CT evidence of interval acute cerebral infarction, intracranial hemorrhage, or mass seen. The diffuse low attenuation changes throughout the brain parenchyma may possibly obscure more subtle findings. If there is clinical concern for acute cerebral infarction, MRI of the brain would better evaluate. 2: There is no significant change to the small bilateral cerebral hemisphere chronic infarcts. 3: There is no significant change to the diffuse low attenuation white matter changes throughout both cerebral hemispheres which may be related to chronic small vessel ischemic disease and leukoaraiosis. Results of this report was discussed with Lindsey Polanco APRN via the telephone 03/25/2021 at 1355 hours. Dictated by: Dictated on workstation # [id number]
[2021-03-25 14:36] LABS: BILIRUBIN,URINE NEGATIVE (NEGATIVE); CLARITY,URINE SL CLOUDY; COLOR,URINE YELLOW; GLUCOSE, URINE (UA) NEGATIVE (NEGATIVE); KETONES,URINE NEGATIVE (NEGATIVE); LEUKOCYTE ESTERASE ,URINE 3+ (NEGATIVE); NITRITE,URINE POSITIVE (NEGATIVE); PH,URINE 7.5 (5-9); PROTEIN,URINE NEGATIVE (NEGATIVE)
[2021-03-25 14:45] LABS: BACTERIA,URINE LARGE /HPF; WBC,URINE >100 /HPF
[2021-03-25] MEDS ORDERED: NITR-65 PO (14:55)
[2021-03-25 15:14] VITALS: BP 150/88
== END 2021-03-25 16:45 | disposition home or self-care (01) ==
LOC: EDUNIT# 13:09 → ER 13:10
DX: N39.0 Urinary tract infection, site not specified (principal); J44.9 Chronic obstructive pulmonary disease, unspecified; I11.0 Hypertensive heart disease with heart failure; I50.9 Heart failure, unspecified; E78.00 Pure hypercholesterolemia, unspecified; I48.91 Unspecified atrial fibrillation; F41.9 Anxiety disorder, unspecified; Z88.2 Allergy status to sulfonamides; Z88.1 Allergy status to other antibiotic agents; Z86.73 Personal history of transient ischemic attack (TIA), and cerebral infarction without residual deficits; Z87.891 Personal history of nicotine dependence; Z79.52 Long term (current) use of systemic steroids; Z79.82 Long term (current) use of aspirin; Z79.01 Long term (current) use of anticoagulants; Z79.899 Other long term (current) drug therapy
CPT/HCPCS: 36415; 70450; 74176; 80053; 81000; 85025; 87077; 87088

== ENCOUNTER 2021-07-07 10:11 | Inpatient (IN) | payer MEDICARE, OTHER ==
[~2021-07-07] VITALS: Ht 162 cm; Wt 72.0 kg
[~2021-07-07 10:11] MED LIST changes: +DOXY-311 PO; -DOXY100C42 PO
[2021-07-07 10:45] LABS: BASOPHILS # (AUTO) 0.1 10^3/uL (0.0-0.1); BASOPHILS % (AUTO) 0 % (0-10); EOSINOPHILS # (AUTO) 0.1 10^3/uL (0.0-0.3); EOSINOPHILS % (AUTO) 0 % (0-10); HEMATOCRIT 47 % (35-52); LYMPHOCYTES % (AUTO) 6 % (12-44); MEAN CORPUSCULAR HEMOGLOBIN 29 pg (25-34); MEAN CORPUSCULAR HGB CONC 32 g/dL (32-36); MEAN CORPUSCULAR VOLUME 91 fL (80-99); MEAN PLATELET VOLUME 10.2 fL (9.0-12.2); MONOCYTES % (AUTO) 6 % (0-12); NEUTROPHILS # (AUTO) 13.3 10^3/uL (1.8-7.8); NEUTROPHILS % (AUTO) 86 % (42-75); PLATELET COUNT 289 10^3/uL (130-400); WHITE BLOOD COUNT 15.5 10^3/uL (4.3-11.0)
[2021-07-07] MEDS ORDERED: NS IV 1000 ML 1,000 ML IV SCH (10:45)
[2021-07-07 10:49] LABS: ALBUMIN 3.8 GM/DL (3.2-4.5); CHLORIDE 98 MMOL/L (98-107); POTASSIUM 3.6 MMOL/L (3.6-5.0); SODIUM 138 MMOL/L (135-145)
[2021-07-07 10:50] LABS: CALCIUM 10.2 MG/DL (8.5-10.1)
[2021-07-07 10:51] LABS: GLUCOSE 112 MG/DL (70-105); INR 1.4 (0.8-1.4); PROTHROMBIN TIME PATIENT 17.4 SEC (12.2-14.7); TOTAL PROTEIN 7.9 GM/DL (6.4-8.2)
[2021-07-07 10:52] LABS: CARBON DIOXIDE 29 MMOL/L (21-32)
[2021-07-07 10:53] LABS: BILIRUBIN,TOTAL 2.7 MG/DL (0.1-1.0)
[2021-07-07 10:54] LABS: BILIRUBIN,URINE NEGATIVE (NEGATIVE); CLARITY,URINE SL CLOUDY; COLOR,URINE YELLOW; GLUCOSE, URINE (UA) NEGATIVE (NEGATIVE); KETONES,URINE NEGATIVE (NEGATIVE); LEUKOCYTE ESTERASE ,URINE 2+ (NEGATIVE); NITRITE,URINE POSITIVE (NEGATIVE); PROTEIN,URINE 3+ (NEGATIVE)
[2021-07-07 10:55] LABS: ALKALINE PHOSPHATASE 134 U/L (40-136); CREATININE SERUM 0.76 MG/DL (0.60-1.30); GFR ESTIMATED 74
[2021-07-07 10:56] LABS: BUN/CREATININE RATIO 17
[2021-07-07 10:58] LABS: ALANINE AMINOTRANSFERASE 21 U/L (0-55)
--- NOTE | 2021-07-07 11:21 | ED General ---
General Chief Complaint: COVID19 Suspect/Confirmed Stated Complaint: WEAKNESS Nursing Triage Note: PT BROUGHT IN BY [facility] FROM HOME WITH COMPLAINT OF GENERAL DECLINE SINCE WEDNESDAY. DAUGHTER STATES PT HAS HAD INCREASING WEAKNESS, INCREASED DROOLING, NAUSEA, AND INCREASED COUGH. PT HAD COVID IN OCTOBER AND HAS NOT HAD VACCINE. PT WEARS HOME O2 2LNC. STATES PT HAS NOT BEEN DRINKING WELL ALSO Source of Information: Family Exam Limitations: Physical Impairments (ALON VERA) History of Present Illness Date Seen by Provider: Jul 07, 2021 Time Seen by Provider: 10:45 Initial Comments CC: Cognitive and Physical Decline 75 yo female with daughter at bedside presents with decreased verbal communication since Wednesday, Patient has a history of right sided hemiparesis and dysphagia due to a stroke april 2020, however, patient has had increased drooling from the right side of the mouth and increased swallowing difficulties. Patient had episodes of vomiting yesterday after lunch and dinner. Daughter did report that patient asked family why the ambulance was called and appeared confused. Patient was non-verbal during history and physical exam but did open eyes to noise and touch. . Patient did not communicate any complaints at this time. Timing/Duration: 3-4 Days Severity: Mild Associated Systoms: Cough (chronic), Nausea/Vomiting, Other (HPI was limited to family and no complaints were reported by the patient) (ALON VERA) Allergies and Home Medications Allergies Coded Allergies: cefdinir (Unverified Allergy, Mild, Rash, 11/12/20) Sulfa (Sulfonamide Antibiotics) (Verified Allergy, Unknown, 12/27/17) Patient Home Medication List Home Medication List Reviewed: Yes (PRITESH BRINK APRN) ALPRAZolam (ALPRAZolam) 0.25 Mg Tablet, 0.125 MG PO DAILY, (Reported) Entered as Reported by: JESSICA SHER on 07/08/21 111 Last Action: Reviewed Alprazolam (Xanax) 0.25 Mg Tablet, 0.25 MG PO HS, (Reported) Entered as Reported by: JESSICA SHER on 07/08/211111 Last Action: Reviewed Amoxicillin/Potassium Clav (Augmentin 250-62.5 mg/5 ml) 250 Mg/5 Ml Susp.recon, 10 ML PO TID Prescribed by: ANNIE MANE on 07/10/21 1059 Apixaban (Eliquis) 5 Mg Tablet, 5 MG PO BID, (Reported) Entered as Reported by: FLORA HDEZ on 12/27/17 0948 Last Action: Continued Aspirin (Aspirin EC) 81 Mg Tablet.dr, 81 MG PO DAILY, (Reported) Entered as Reported by: JESSICA SHER on 07/08/211111 Last Action: Reviewed Atorvastatin Calcium (Atorvastatin Calcium) 20 Mg Tablet, 20 MG PO HS, (Reported) Entered as Reported by: JESSICA SHER on 10/09/19 1237 Last Action: Reviewed Carvedilol (Carvedilol) 6.25 Mg Tablet, 6.25 MG PO BID Prescribed by: ANNIE MANE on 07/10/21 1059 Citalopram Hydrobromide (Citalopram HBr) 40 Mg Tablet, 40 MG PO HS, (Reported) Entered as Reported by: JESSICA SHER on 07/08/211111 Last Action: Converted Diltiazem HCl (Diltiazem HCl) 120 Mg Tablet, 120 MG PO 1500 PRN for BLOOD PRESSURE, (Reported) Entered as Reported by: JESSICA SHER on 07/08/211111 Last Action: Reviewed Flaxseed Oil (Flaxseed Oil) 1,000 Mg Capsule, 1,000 MG PO DAILY, (Reported) Entered as Reported by: JESSICA SHER on 07/08/211111 Last Action: Reviewed Fluticasone/Salmeterol (Advair Hfa 115-21 Mcg Inhaler) 12 Gm Hfa.aer.ad, 2 PUFF INH Q12H, (Reported) Entered as Reported by: JESSICA SHER on 07/08/211111 Last Action: Reviewed Ipratropium/Albuterol Sulfate (Iprat-Albut 0.5-3(2.5) mg/3 ml) 3 Ml Ampul.neb, 3 ML NEB QID PRN for SHORTNESS OF BREATH, (Reported) Entered as Reported by: FLORA HDEZ on 11/03/19 1041 Last Action: Reviewed Levothyroxine Sodium (Levothyroxine Sodium) 50 Mcg Tablet, 50 MCG PO DAILY, (Reported) Entered as Reported by: JESSICA SHER on 05/02/20 1006 Last Action: Continued Montelukast Sodium (Montelukast Sodium) 10 Mg Tablet, 10 MG PO HS, (Reported) Entered as Reported by: JESSICA SHER on 07/08/21 111 Last Action: Continued Waves-3/Dha/Epa/Fish Oil (Fish Oil 1,000 mg Softgel) 1 Each Capsule, 1 EACH PO DAILY, (Reported) Entered as Reported by: JESSICA SHER on 07/08/211111 Last Action: Reviewed Tizanidine HCl (Tizanidine HCl) 2 Mg Tablet, 1 MG PO BID, (Reported) Entered as Reported by: JESSICA SHER on 07/08/211111 Last Action: Converted [Instaflex] , 1 TAB PO DAILY, (Reported) Entered as Reported by: JESSICA SHER on 05/02/20 1008 Last Action: Reviewed Discontinued Medications ALPRAZolam (Xanax Tablet) 0.25 Mg Tab, 0.125 MG PO HS, (Reported) Discontinued Reason: Duplicate Order Entered as Reported by: JESSICA SHER on 07/31/20 1149 Last Action: Discontinued Acetaminophen (Tylenol 8 Hour) 650 Mg Tablet.er, 1,300 MG PO Q8H PRN for PAIN- MILD (1-4), (Reported) Discontinued Reason: Duplicate Order Entered as Reported by: JESSICA SHER on 01/01/20 1358 Last Action: Discontinued Azithromycin (Azithromycin) 250 Mg Tablet, 250 MG PO HS Discontinued Reason: No Longer Taking Prescribed by: JEROME NEAL on 08/01/20 1128 Last Action: Discontinued Azithromycin (Azithromycin) 250 Mg Tablet, 250 MG PO DAILY Discontinued Reason: No Longer Taking Prescribed by: JACQUELINE PORTER on 01/07/21 1029 Last Action: Discontinued Carvedilol (Carvedilol) 6.25 Mg Tablet, 6.25 MG PO BID, (Reported) Discontinued Reason: No Longer Taking Entered as Reported by: JESSICA SHER on 01/01/20 1358 Last Action: Discontinued Carvedilol (Carvedilol) 3.125 Mg Tablet, 3.125 MG PO BID, (Reported) Entered as Reported by: JESSICA SHER on 07/08/21 111 Last Action: Reviewed Cefdinir (Cefdinir) 300 Mg Capsule, 300 MG PO BID Discontinued Reason: No Longer Taking Prescribed by: JEROME NEAL on 08/01/20 1128 Last Action: Discontinued Diltiazem HCl (Diltiazem 24Hr ER) 240 Mg Cap.er.24h, 240 MG PO DAILY Discontinued Reason: No Longer Taking Prescribed by: JEROME NEAL on 08/01/20 1128 Last Action: Discontinued Hydroxyzine HCl (Hydroxyzine HCl) 10 Mg Tablet, 10 MG PO TID PRN for ANXIETY, (Reported) Discontinued Reason: No Longer Taking Entered as Reported by: JESSICA SHER on 05/02/20 1030 Last Action: Discontinued Miconazole Nitrate (Lotrimin AF) 90 Gm Powder, 0 GM TOP BID Discontinued Reason: No Longer Taking Prescribed by: JEROME NEAL on 05/23/20 1044 Last Action: Discontinued Miconazole Nitrate (Lotrimin AF) 90 Gm Powder, 0 GM TOP BID PRN for RASH Discontinued Reason: No Longer Taking Prescribed by: JEROME NEAL on 05/23/20 1044 Last Action: Discontinued Montelukast Sodium (Singulair) 10 Mg Tablet, 10 MG PO DAILY, (Reported) Discontinued Reason: No Longer Taking Entered as Reported by: FLORA HDEZ on 11/03/19 1041 Last Action: Discontinued Nitrofurantoin Monohyd/M-Cryst (Macrobid 100 mg Capsule) 100 Mg Capsule, 1 TAB PO DAILY Discontinued Reason: No Longer Taking Prescribed by: JEROME NEAL on 08/01/20 1128 Last Action: Discontinued Nitrofurantoin Monohyd/M-Cryst (Macrobid 100 mg Capsule) 100 Mg Capsule, 1 TAB PO BID Discontinued Reason: No Longer Taking Prescribed by: PRITESH BRINK on 03/25/21 1455 Last Action: Discontinued Prednisone (Prednisone) 20 Mg Tab, 40 MG PO DAILY Discontinued Reason: No Longer Taking Prescribed by: JACQUELINE PORTER on 01/07/21 1029 Last Action: Discontinued Review of Systems Review of Systems Constitutional: see HPI EENTM: see HPI Respiratory: see HPI, cough (daughter reported this is chronic) Cardiovascular: see HPI Gastrointestinal: see HPI Genitourinary: see HPI Musculoskeletal: see HPI Skin: see HPI (ALON VERA) Past Tncpiqy-Jslocc-Yhtpmm Hx Immunizations Up To Date Tetanus Booster (TDap): Unknown (ALON VERA) Seasonal Allergies Seasonal Allergies: No (ALON VERA) Past Medical History Surgeries: Yes (CARDIAC CATH X 3--STENTS X 4) Cardiac, Coronary Stent, Gallbladder, Tubal Ligation Respiratory: Yes (COVID-19, October,) Pneumonia, COPD Currently Using CPAP: No Currently Using BIPAP: No Cardiac: Yes (CHF; CARDIAC CATHS X 3 WITH STENTS X 4) Atrial Fibrillation, Coronary Artery Disease, High Cholesterol, Hypertension 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: Yes Dementia, Stroke Reproductive Disorders: No 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 ) Loss of Vision: Denies Cancer: No Psychosocial: Yes Anxiety, Depression Integumentary: No Blood Disorders: No Adverse Reaction/Blood Tranf: No (ALON VERA) Family Medical History Cardiovascular disease 19 MOTHER Diabetes mellitus 19 MOTHER Hypertension 19 MOTHER No Pertinent Family Hx LONG HISTORY OF NON-COMPLIANCE (ALON VERA) Physical Exam Vital Signs (PRITESH BRINK APRN) Vital Signs Capillary Refill : Less Than 3 Seconds (ALON VERA) Height, Weight, BMI Height: 5'4.00" Weight: 170lbs. 0oz. 77.447783qn; 18.00 BMI Method:Stated General Appearance: No Apparent Distress, WD/WN Eyes: Bilateral Eye Normal Inspection, Bilateral Eye PERRL HEENT: Other (Visual inspection of TM's was limited due to cerumen build up) Respiratory: Chest Non Tender, No Accessory Muscle Use, No Respiratory Distress, Crackles (on the left and right flank ); No Wheezing Cardiovascular: No Edema, No Murmur, Normal Peripheral Pulses (radial pulses), Irregularly Irregular, Tachycardia Gastrointestinal: Non Tender, Soft Neurologic/Psychiatric: Alert (ALON VERA) Focused Exam Lactate Level 07/07/21 10:23: Lactic Acid Level 1.28 (PRITESH BRINK APRN) Lactic Acid Level Laboratory Tests Test 07/07/21 10:23 Lactic Acid Level 1.28 MMOL/L (0.50-2.00) (KEENA,STORMY D WELDING TECHNICIAN) Progress/Results/Core Measures Suspected Sepsis SIRS Temperature: Pulse: 110 Respiratory Rate: 19 Laboratory Tests 07/07/21 10:23: White Blood Count 15.5H Blood Pressure 158 /133 Mean: 141 07/07/21 10:23: Lactic Acid Level 1.28 Laboratory Tests 07/07/21 10:23: Creatinine 0.76, INR Comment 1.4, Platelet Count 289, Total Bilirubin 2.7H (ALON VERA) Results/Orders Lab Results Laboratory Tests Test 07/07/21 10:23 07/07/21 10:28 07/07/21 14:05 Range/Units White Blood Count 15.5 H 4.3-11.0 10^3/uL Red Blood Count 5.16 H 3.80-5.11 10^6/uL Hemoglobin 15.0 11.5-16.0 g/dL Hematocrit 47 35-52 % Mean Corpuscular Volume 91 80-99 fL Mean Corpuscular Hemoglobin 29 25-34 pg Mean Corpuscular Hemoglobin Concent 32 32-36 g/dL Red Cell Distribution Width 13.6 10.0-14.5 % Platelet Count 289 130-400 10^3/uL Mean Platelet Volume 10.2 9.0-12.2 fL Immature Granulocyte % (Auto) 1 % Neutrophils (%) (Auto) 86 H 42-75 % Lymphocytes (%) (Auto) 6 L 12-44 % Monocytes (%) (Auto) 6 0-12 % Eosinophils (%) (Auto) 0 0-10 % Basophils (%) (Auto) 0 0-10 % Neutrophils # (Auto) 13.3 H 1.8-7.8 10^3/uL Lymphocytes # (Auto) 1.0 1.0-4.0 10^3/uL Monocytes # (Auto) 1.0 0.0-1.0 10^3/uL Eosinophils # (Auto) 0.1 0.0-0.3 10^3/uL Basophils # (Auto) 0.1 0.0-0.1 10^3/uL Immature Granulocyte # (Auto) 0.1 0.0-0.1 10^3/uL Neutrophils % (Manual) 83 % Lymphocytes % (Manual) 6 % Monocytes % (Manual) 6 % Eosinophils % (Manual) 2 % Basophils % (Manual) 0 % Band Neutrophils 3 % Elliptocytes SLIGHT Prothrombin Time 17.4 H 12.2-14.7 SEC INR Comment 1.4 0.8-1.4 Activated Partial Thromboplast Time 33 24-35 SEC Sodium Level 138 135-145 MMOL/L Potassium Level 3.6 3.6-5.0 MMOL/L Chloride Level 98 98-107 MMOL/L Carbon Dioxide Level 29 21-32 MMOL/L Anion Gap 11 5-14 MMOL/L Blood Urea Nitrogen 13 7-18 MG/DL Creatinine 0.76 0.60-1.30 MG/DL Estimat Glomerular Filtration Rate 74 BUN/Creatinine Ratio 17 Glucose Level 112 H 70-105 MG/DL Lactic Acid Level 1.28 0.50-2.00 MMOL/L Calcium Level 10.2 H 8.5-10.1 MG/DL Corrected Calcium 10.4 H 8.5-10.1 MG/DL Total Bilirubin 2.7 H 0.1-1.0 MG/DL Aspartate Amino Transf (AST/SGOT) 27 5-34 U/L Alanine Aminotransferase (ALT/SGPT) 21 0-55 U/L Alkaline Phosphatase 134 40-136 U/L Troponin I < 0.028 <0.028 NG/ML B-Type Natriuretic Peptide 500.0 H <100.0 PG/ML Total Protein 7.9 6.4-8.2 GM/DL Albumin 3.8 3.2-4.5 GM/DL Procalcitonin 0.07 <0.10 NG/ML Urine Color YELLOW Urine Clarity SL CLOUDY Urine pH 7.0 5-9 Urine Specific [place] 1.025 H 1.016-1.022 Urine Protein 3+ H NEGATIVE Urine Glucose (UA) NEGATIVE NEGATIVE Urine Ketones NEGATIVE NEGATIVE Urine Nitrite POSITIVE H NEGATIVE Urine Bilirubin NEGATIVE NEGATIVE Urine Urobilinogen 0.2 < = 1.0 MG/DL Urine Leukocyte Esterase 2+ H NEGATIVE Urine RBC (Auto) 2+ H NEGATIVE Urine RBC 2-5 H /HPF Urine WBC >100 H /HPF Urine Squamous Epithelial Cells 0-2 /HPF Urine Crystals NONE /LPF Urine Bacteria MODERATE H /HPF Urine Casts NONE /LPF Urine Mucus NEGATIVE /LPF Urine Culture Indicated CULTURE PENDING Influenza Type A (RT-PCR) Not Detected Not Detecte Influenza Type B (RT-PCR) Not Detected Not Detecte SARS-CoV-2 RNA (RT-PCR) Not Detected Not Detecte Lab Scanned Report Referred Lab Report [id number] (PRITESH BRINK APRN) Micro Results Microbiology 07/07/21 Blood Culture - Final, Complete Klebsiella pneumoniae 07/07/21 Urine Culture - Final, Complete Klebsiella pneumoniae Escherichia coli 07/07/21 Blood Culture - Final, Complete Klebsiella pneumoniae (PRITESH BRINK APRN) My Orders Orders - PRITESH BRINK APRN Metoprolol Tartrate Injection (Lopressor (07/07/21 12:45) Procalcitonin (Pct) (07/07/21 12:55) BNP (07/07/21 13:36) Piperacillin Sodium/Tazobactam (Zosyn Vi (07/07/21 14:15) (PRITESH BRINK APRN) Medications Given in ED (PRITESH BRINK APRN) Vital Signs/I&O (PRITESH BRINK APRN) Vital Signs/I&O Capillary Refill : Less Than 3 Seconds (ALON VERA) Blood Pressure Mean: 141 ECG Initial ECG Impression Date: Jul 07, 2021 Initial ECG Impression Time: 10:17 Initial ECG Rate: 116 Initial ECG Rhythm: A Fib/Flutter Initial ECG Impression: Atrial Fibrillation Initial ECG Comparisson: Unchanged (PRITESH BRINK APRN) Diagnostic Imaging Diagonstic Imaging: Xray Plain Films/CT/US/NM/MRI: chest Comments [facility], [place] NAME: KELLEY GARCIA Luis Armando [facility] REC#: [id number] PT STATUS: ADM IN : 1945 PHYSICIAN: HEMANT BAL MD ADMIT DATE: 07/07/21/ Signed Date of Exam:07/07/21 CHEST 1 VIEW, AP/PA ONLY INDICATION: Generalized decline, increasing weakness and drooling, nausea with cough. Compared with study 01/20/2021. FINDINGS: The heart size is increased. There is increased distention of the pulmonary vascularity. There is new 5 lobe interstitial pulmonary opacities given the additional findings suspicious for edema correlate for failure or hypervolemia. Infectious etiology superimposed could not be excluded. There is no evidence for pleural fluid or pneumothorax. IMPRESSION: 1. Increased cardiomegaly and vascular distention with 5 lobe pulmonary infiltrates suspect for edema correlate clinically. Superimposition of infectious lung disease could not be excluded in the appropriate scenario. 2. No pleural fluid or pneumothorax. Dictated by: Dictated on workstation # [id number] Dict: 07/07/21 1137 Trans: 07/07/21 1613 [id number] Interpreted by: CLARIBEL BANERJEE Electronically signed by: CLARIBEL BANERJEE 07/07/21 1613 Reviewed: Reviewed by Me (PRITESH BRINK APRN) Departure Communication (Admissions) Time/Spoke to Admitting Phy: 14:03 Dr. Mane (PRITESH BRINK WELDING TECHNICIAN) Impression Primary Impression: Pneumonia Additional Impressions: UTI (urinary tract infection) History of CVA with residual deficit Generalized weakness Dysphagia Disposition: ADMITTED INPATIENT Condition: Stable Admissions Decision to Admit Reason: Admit from ER (General) Decision to Admit/Date: Jul 07, 2021 Time/Decision to Admit Time: 13:14 (PRITESH BRINK APRN) Departure-Patient Inst. Referrals: JEROME NEAL DO (PCP/Family) Primary Care Physician Scripts Amoxicillin/Potassium Clav (Augmentin 250-62.5 mg/5 ml) 250 Mg/5 Ml Susp.recon 10 ML PO TID for 7 Days, #250 ML Prov: ANNIE MANE MD 07/10/21 Carvedilol (Carvedilol) 6.25 Mg Tablet 6.25 MG PO BID, #60 TAB 3 Refills Prov: ANNIE MANE MD 07/10/21 I have personally examined the patient and agree with the history and physical assessment findings of MS Alon Vera unless otherwise stated. GEN: Non verbal, appears chronically ill. HEENT: PERRL, no icterus or injection. Flattened right nasolabial fold. CV: irregularly/irregular RES: Crackles bilateral bases ABD: Soft, non tender, normal bowel sounds. Spouse at bedside to answer all questions. (PRITESH BRINK WELDING TECHNICIAN) Copy Copies To 1: ANNIE MANE MD [facility]ON [facility]A [facility] Jul 07, 2021 11:21 PRITESH BRINK APRN Jul 07, 2021 13:14
[2021-07-07 11:29] LABS: BACTERIA,URINE MODERATE /HPF; SQUAMOUS EPITHELIAL CELL,UR 0-2 /HPF; WBC,URINE >100 /HPF
[2021-07-07 11:45] LABS: BAND NEUTROPHILS 3 %; BASOPHILS % (MANUAL) 0 %; EOSINOPHILS % (MANUAL) 2 %; LYMPHOCYTES % (MANUAL) 6 %; MONOCYTES % (MANUAL) 6 %; NEUTROPHILS % (MANUAL) 83 %
[2021-07-07 11:46] LABS: ELLIPT/OVALOCYTES SLIGHT
--- NOTE | 2021-07-07 11:46 | Diagnostic Imaging Report ---
INDICATION: Generalized decline, increasing weakness and drooling, nausea with cough. Compared with study 01/20/2021. FINDINGS: The heart size is increased. There is increased distention of the pulmonary vascularity. There is new 5 lobe interstitial pulmonary opacities given the additional findings suspicious for edema correlate for failure or hypervolemia. Infectious etiology superimposed could not be excluded. There is no evidence for pleural fluid or pneumothorax. IMPRESSION: 1. Increased cardiomegaly and vascular distention with 5 lobe pulmonary infiltrates suspect for edema correlate clinically. Superimposition of infectious lung disease could not be excluded in the appropriate scenario. 2. No pleural fluid or pneumothorax. Dictated by: Dictated on workstation # [id number]
[2021-07-07] MEDS ORDERED: meTOprolol 5 MG/5 ML (LOPRESSOR) VIAL IV ONE (12:45)
[2021-07-07] MEDS ORDERED: PIPERACILLIN SODIUM/TAZOBACTAM 4.5 GM in NS (IVPB) 100 ML IV ONE (14:15)
[2021-07-07 16:00] VITALS: BP 185/96
[2021-07-07] MEDS ORDERED: ACETAMINOPHEN 650 MG SUPP (TYLENOL) PR PRN (17:00)
[2021-07-07] MEDS ORDERED: ONDANSETRON 4 MG/2 ML (SDV) Z0FRAN IVP PRN (17:00)
[2021-07-07] MEDS ORDERED: CATHETER FLUSH 10 ML SYR IV PRN (17:00)
[2021-07-07] MEDS: PIPERACILLIN/TAZOBACTAM (BULK) 4.5 GM in NS (IVPB) 100 ML IV SCH (19:44)
[2021-07-07] MEDS: CATHETER FLUSH 10 ML SYR IV SCH (19:44)
[2021-07-07 19:55] VITALS: BP 154/93
[2021-07-07] MEDS: RT-ALBUTEROL SULF 2.5 MG/3 ML PRE-MIX VIAL INH SCH ×2 (19:59→20:03)
--- NOTE | 2021-07-07 20:17 | History & Physical ---
History of Present Illness History of Present Illness Reason for visit/HPI PT IS A 75 Y/O FEMALE WHO IS KNOWN TO ME FROM CLINIC. SHE PRESENTED TO THE EMERGENCY DEPARTMENT AFTER HAVING INCREASING LETHARGY AND FAMILY UNABLE TO CARE FOR HER AT HOME. THE ER WORK-UP SHOWED AN ELEVATED WHITE COUNT, AND POSSIBLE PNEUMONIA VERSUS INTERSTITIAL EDEMA WITH SUPERIMPOSED UTI. Date of Admission Jul 07, 2021 at 14:05 Date Seen by a Provider: Jul 07, 2021 Time Seen by a Provider: 19:45 Attending Physician Annie Mane MD Admitting Physician Annie Mane MD Consult Allergies and Home Medications Allergies Coded Allergies: cefdinir (Unverified Allergy, Mild, Rash, 11/12/20) Sulfa (Sulfonamide Antibiotics) (Verified Allergy, Unknown, 12/27/17) Patient Home Medication List Home Medication List Reviewed: Yes ALPRAZolam (Xanax Tablet) 0.25 Mg Tab, 0.125 MG PO HS, (Reported) Entered as Reported by: JESSICA SHER on 07/31/20 1149 Acetaminophen (Tylenol 8 Hour) 650 Mg Tablet.er, 1,300 MG PO Q8H PRN for PAIN- MILD (1-4), (Reported) Entered as Reported by: JESSICA SHER on 01/01/20 1358 Apixaban (Eliquis) 5 Mg Tablet, 5 MG PO BID, (Reported) Entered as Reported by: FLORA HDEZ on 12/27/17 0944 Aspirin (Aspirin) 81 Mg Tab.chew, 81 MG PO HS, (Reported) Entered as Reported by: JESSICA SHER on 05/02/20 1008 Atorvastatin Calcium (Atorvastatin Calcium) 20 Mg Tablet, 20 MG PO HS, (Reported) Entered as Reported by: JESSICA SHER on 10/09/19 1237 Azithromycin (Azithromycin) 250 Mg Tablet, 250 MG PO HS Prescribed by: JEROME NEAL on 08/01/20 1128 Azithromycin (Azithromycin) 250 Mg Tablet, 250 MG PO DAILY Prescribed by: JACQUELINE PORTER on 01/07/21 1029 Carvedilol (Carvedilol) 6.25 Mg Tablet, 6.25 MG PO BID, (Reported) Entered as Reported by: JESSICA SHER on 01/01/20 1358 Cefdinir (Cefdinir) 300 Mg Capsule, 300 MG PO BID Prescribed by: JEROME NEAL on 08/01/20 1128 Diltiazem HCl (Diltiazem 24Hr ER) 240 Mg Cap.er.24h, 240 MG PO DAILY Prescribed by: JEROME NEAL on 08/01/20 1128 Flaxseed Oil (Flax Seed Oil) 1,000 Mg Capsule, 1,000 MG PO DAILY, (Reported) Entered as Reported by: JESSICA SHER on 05/02/20 1008 Hydroxyzine HCl (Hydroxyzine HCl) 10 Mg Tablet, 10 MG PO TID PRN for ANXIETY, (Reported) Entered as Reported by: JESSICA SHER on 05/02/20 1030 Ipratropium/Albuterol Sulfate (Iprat-Albut 0.5-3(2.5) mg/3 ml) 3 Ml Ampul.neb, 3 ML NEB QID PRN for SHORTNESS OF BREATH, (Reported) Entered as Reported by: FLORA HDEZ on 11/03/19 1041 Levothyroxine Sodium (Levothyroxine Sodium) 50 Mcg Tablet, 50 MCG PO DAILY, (Reported) Entered as Reported by: JESSICA SHER on 05/02/20 1006 Miconazole Nitrate (Lotrimin AF) 90 Gm Powder, 0 GM TOP BID Prescribed by: JEROME NEAL on 05/23/20 1044 Miconazole Nitrate (Lotrimin AF) 90 Gm Powder, 0 GM TOP BID PRN for RASH Prescribed by: JEROME NEAL on 05/23/20 1044 Montelukast Sodium (Singulair) 10 Mg Tablet, 10 MG PO DAILY, (Reported) Entered as Reported by: FLORA HDEZ on 11/03/19 1041 Nitrofurantoin Monohyd/M-Cryst (Macrobid 100 mg Capsule) 100 Mg Capsule, 1 TAB PO DAILY Prescribed by: JEROME NEAL on 08/01/20 1128 Nitrofurantoin Monohyd/M-Cryst (Macrobid 100 mg Capsule) 100 Mg Capsule, 1 TAB PO BID Prescribed by: PRITESH BRINK on 03/25/21 1455 Prednisone (Prednisone) 20 Mg Tab, 40 MG PO DAILY Prescribed by: JACQUELINE PORTER on 01/07/21 1029 [Instaflex] , 1 TAB PO DAILY, (Reported) Entered as Reported by: JESSICA SHER on 05/02/20 1008 Past Tmlzrkg-Szmcij-Qmrmmu Hx Patient Social History Marrital Status: Living Status: LIVES AT HOME WITH HER AND CAREGIVERS Employed/Student: retired Tobacco Use?: No Smoking Status: Former Smoker Smokeless Tobacco Frequency: Never a User Use of E-Cig and/or Vaping dev: No Substance use?: No Alcohol Use?: No Pt feels they are or have been: No Immunizations Up To Date Date of Influenza Vaccine: Jul 19, 2019 First/Initial COVID19 Vaccinat: UNKNOWN Second COVID19 Vaccination Sergio: UNKNOWN Tetanus Booster (TDap): Unknown Date of Pneumonia Vaccine: Sep 17, 2015 Seasonal Allergies Seasonal Allergies: No Current Status status: No Advance Directives: Unable to obtain Advance Directive Location: Unable to obtain copy Primary Language: Ethiopian Preferred Spoken Language: Ethiopian Is interpretation needed?: No Sensory deficits: Speech impairment Implanted or Applied Medical D: Stents Past Medical History Surgeries: Cardiac, Coronary Stent, Gallbladder, Tubal Ligation Pneumonia, COPD Currently Using CPAP: No Currently Using BIPAP: No Atrial Fibrillation, Coronary Artery Disease, High Cholesterol, Hypertension Dementia, Stroke 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 Sexually Transmitted Disease: No HIV/AIDS: No Bladder Infection Gastroesophageal Reflux Arthritis, Rheumatoid Arthritis, Chronic Back Pain Are Your Blood Sugars Over 250: No Loss of Vision: Denies Hearing Impairment: Denies Anxiety, Depression Blood Disorders: No Adverse Reaction/Blood Tranf: No Family Medical History Reviewed and Corrections made Cardiovascular disease 19 MOTHER Diabetes mellitus 19 MOTHER Hypertension 19 MOTHER Heart Disease, Diabetes, Hypertension LONG HISTORY OF NON-COMPLIANCE Review of Systems Constitutional: No chills, No fever; malaise, weakness, other (REFUSAL TO EAT/DRINK, AND INCREASINGLY NON-VERBAL OVER THE WEEKEND) EENTM: No throat pain Respiratory: No cough, No dyspnea on exertion, No short of breath Cardiovascular: No chest pain; Hx of Intervention Gastrointestinal: No abdominal pain; loss of appetite; No nausea, No vomiting Genitourinary: incontinence (urge) Musculoskeletal: muscle weakness, other (STIFFNESS OF ARMS/LEGS/HANDS - WORSENING) Skin: no symptoms reported Psychiatric/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: Anxiety, Depressed, Pre-Existing Deficit, Weakness All Other Systems Reviewed Negative Unless Noted: Yes Physical Exam Vital Signs Vital Signs - First Documented 07/07/21 10:15 Pulse 110 Resp 19 B/P (MAP) 158/133 (141) Pulse Ox 94 O2 Delivery Nasal Cannula O2 Flow Rate 2.00 Capillary Refill : Less Than 3 Seconds Height, Weight, BMI Height: 5'4.00" Weight: 170lbs. 0oz. [id number]; 18.28 BMI Method:Stated General Appearance: WD/WN, Other (GROGGY/SLEEPY - AVOIDING CONVERSATION) HEENT: PERRL/EOMI Neck: Full Range of Motion, Supple Respiratory: Chest Non Tender, No Accessory Muscle Use, No Respiratory Distress, Crackles (IN BASES) Cardiovascular: Regular Rate, Rhythm Gastrointestinal: Normal Bowel Sounds, No Organomegaly, No Pulsatile Mass, Non Tender, Soft Rectal: Deferred Back: Normal Inspection Extremity: Normal Capillary Refill, Non Tender, No Calf Tenderness, No Pedal Edema Neurologic/Psychiatric: Alert, Other (FLAT AFFECT, PT IS VERBAL, JUST REFUSES TO RESPOND VERBALLY TONIGHT EXCPET FOR ONE WORD ANSWERS) Skin: Normal Color, Warm/Dry Lymphatic: No Adenopathy Assessment/Plan Assessment and Plan URINARY TRACT INFECTION PROBABLE PNEUMONIA PULMONARY EDEMA HYPERTENSION CORONARY ARTERY DISEASE HISTORY OF MASSIVE STROKE MILD VASCULAR DEMENTIA CHRONIC ANXIETY URINARY TRACT INFECTION - STARTED ON ZOSYN - WAITING ON CULTURE REPORT - CONTINUE WITH IV FLUIDS PROBABLE PNEUMONIA VERSUS PULMONARY EDEMA - MONITOR REPEAT CXR, CONTINUE WITH IV ANTIBIOTICS. HYPERTENSION - CONTINUE WITH HOME MEDICATIONS ONCE MEDICATIONS HAVE BEEN RECONCILED. CORONARY ARTERY DISEASE - SUPPORTIVE CARE HISTORY OF MASSIVE STROKE - DISCUSSED WITH PATIENT'S DAUGHTER TONIGHT - THEY ARE INTERESTED IN HOSPICE - [facility]. MILD VASCULAR DEMENTIA - SUPPORTIVE CARE CHRONIC ANXIETY - WILL RESTART ANXIOLYTIC. Admission Diagnosis URINARY TRACT INFECTION PROBABLE PNEUMONIA PULMONARY EDEMA HYPERTENSION CORONARY ARTERY DISEASE HISTORY OF MASSIVE STROKE MILD VASCULAR DEMENTIA CHRONIC ANXIETY Admission Status: Inpatient Order (span 2 midnights) Reason for Inpatient Admission: INPT ADMISSION FOR UTI, PNEUMONIA VERSUS PULMONARY EDEMA, WILL REQUIRE AT LEAST 2 MIDNIGHTS FOR MEDICATION ADJUSTMENT AND CULTURE GROWTH REPORT. ANNIE MANE MD Jul 07, 2021 20:17
[2021-07-08] VITALS: BP 165/94
[2021-07-08 04:00] VITALS: BP 174/94
[2021-07-08] MEDS: PIPERACILLIN/TAZOBACTAM (BULK) 4.5 GM in NS (IVPB) 100 ML IV SCH ×3 (04:34→21:22)
[2021-07-08] MEDS: CATHETER FLUSH 10 ML SYR IV SCH ×3 (05:26→21:25)
[2021-07-08 06:33] LABS: BASOPHILS # (AUTO) 0.1 10^3/uL (0.0-0.1); BASOPHILS % (AUTO) 0 % (0-10); EOSINOPHILS % (AUTO) 0 % (0-10); HEMATOCRIT 45 % (35-52); HEMOGLOBIN 14.4 g/dL (11.5-16.0); LYMPHOCYTES # (AUTO) 1.1 10^3/uL (1.0-4.0); LYMPHOCYTES % (AUTO) 6 % (12-44); MEAN CORPUSCULAR HEMOGLOBIN 29 pg (25-34); MEAN CORPUSCULAR HGB CONC 32 g/dL (32-36); MEAN CORPUSCULAR VOLUME 91 fL (80-99); MEAN PLATELET VOLUME 10.1 fL (9.0-12.2); MONOCYTES # (AUTO) 1.1 10^3/uL (0.0-1.0); MONOCYTES % (AUTO) 6 % (0-12); NEUTROPHILS # (AUTO) 15.4 10^3/uL (1.8-7.8); NEUTROPHILS % (AUTO) 87 % (42-75); PLATELET COUNT 238 10^3/uL (130-400); WHITE BLOOD COUNT 17.7 10^3/uL (4.3-11.0)
[2021-07-08 06:43] LABS: POTASSIUM 3.4 MMOL/L (3.6-5.0)
[2021-07-08 06:44] LABS: CALCIUM 9.4 MG/DL (8.5-10.1)
[2021-07-08] MEDS: RT-ALBUTEROL SULF 2.5 MG/3 ML PRE-MIX VIAL INH SCH ×4 (06:45→18:56)
[2021-07-08 06:48] LABS: CREATININE SERUM 0.85 MG/DL (0.60-1.30)
[2021-07-08 08:00] VITALS: BP 137/88
--- NOTE | 2021-07-08 08:45 | Progress Note ---
EMILEE CLARK MED STUDENT 07/08/21 0845: Subjective Date Seen by a Provider: Jul 08, 2021 Time Seen by a Provider: 08:15 Subjective/Events-last exam Pt laying in bed with daughter at her side. Pt non-verbal during encounter- ROS could not be obtained. Drank a lot of water during the visit orally. Does not appear to be in any discomfort. Focused Exam Lactate Level 07/07/21 10:23: Lactic Acid Level 1.28 Objective Exam Last Set of Vital Signs Vital Signs Date Time Temp Pulse Resp B/P (MAP) Pulse Ox O2 Delivery O2 Flow Rate FiO2 07/08/21 06:45 95 Nasal Cannula 2.00 07/08/21 04:00 35.6 106 18 174/94 (120) Capillary Refill : Less Than 3 Seconds I&O Intake and Output 07/08/21 00:00 Intake Total 1100 ml Output Total 1350 ml Balance -250 ml Intake Oral 0 ml IV Total 1100 ml Output Urine Total 1350 ml Daily Weight Change No General: Alert, No Acute Distress HEENT: Atraumatic, Mucous Memb Moist/[place] Neck: Supple, No Thyromegaly Lungs: Normal Air Movement Heart: Other (tahycardic, irregular rhythem. ) Abdomen: Soft, No Tenderness Extremities: No Clubbing, No Cyanosis, Normal Pulses Skin: No Significant Lesion Neuro: Other (s/p stroke with residual right hemiparesis ) Psych/Mental Status: Mood NL Results Lab Laboratory Tests 07/07/21 10:23: White Blood Count 15.5H, Red Blood Count 5.16H, Hemoglobin 15.0, Hematocrit 47, Mean Corpuscular Volume 91, Mean Corpuscular Hemoglobin 29, Mean Corpuscular Hemoglobin Concent 32, Red Cell Distribution Width 13.6, Platelet Count 289, Mean Platelet Volume 10.2, Immature Granulocyte % (Auto) 1, Neutrophils (%) (Auto) 86H, Lymphocytes (%) (Auto) 6L, Monocytes (%) (Auto) 6, Eosinophils (%) (Auto) 0, Basophils (%) (Auto) 0, Neutrophils # (Auto) 13.3H, Lymphocytes # (Auto) 1.0, Monocytes # (Auto) 1.0, Eosinophils # (Auto) 0.1, Basophils # (Auto) 0.1, Immature Granulocyte # (Auto) 0.1, Neutrophils % (Manual) 83, Lymphocytes % (Manual) 6, Monocytes % (Manual) 6, Eosinophils % (Manual) 2, Basophils % (Ma nual) 0, Band Neutrophils 3, Elliptocytes SLIGHT, Prothrombin Time 17.4H, INR Comment 1.4, Activated Partial Thromboplast Time 33, Sodium Level 138, Potassium Level 3.6, Chloride Level 98, Carbon Dioxide Level 29, Anion Gap 11, Blood Urea Nitrogen 13, Creatinine 0.76, Estimat Glomerular Filtration Rate 74, BUN/Creatinine Ratio 17, Glucose Level 112H, Lactic Acid Level 1.28, Calcium Level 10.2H, Corrected Calcium 10.4H, Total Bilirubin 2.7H, Aspartate Amino Transf (AST/SGOT) 27, Alanine Aminotransferase (ALT/SGPT) 21, Alkaline Abhi sphatase 134, Troponin I < 0.028, B-Type Natriuretic Peptide 500.0H, Total Protein 7.9, Albumin 3.8, Procalcitonin 0.07 07/07/21 10:28: Urine Color YELLOW, Urine Clarity SL CLOUDY, Urine pH 7.0, Urine Specific [place] 1.025H, Urine Protein 3+H, Urine Glucose (UA) NEGATIVE, Urine Ketones NEGATIVE, Urine Nitrite POSITIVEH, Urine Bilirubin NEGATIVE, Urine Urobilinogen 0.2, Urine Leukocyte Esterase 2+H, Urine RBC (Auto) 2+H, Urine RBC 2-5H, Urine WBC >100H, Urine Squamous Epithelial Cells 0-2, Urine Crystals NONE, Urine Bacteria MODERATEH, Urine Casts NONE, Urine Mucus NEGATIVE, Urine Culture Indicated CULTURE PENDING, Influenza Type A (RT-PCR) Not Detected, Influenza Type B (RT-PCR) Not Detected, SARS-CoV-2 RNA (RT-PCR) Not Detected 07/08/21 06:15: White Blood Count 17.7H, Red Blood Count 4.94, Hemoglobin 14.4, Hematocrit 45, Mean Corpuscular Volume 91, Mean Corpuscular Hemoglobin 29, Mean Corpuscular Hemoglobin Concent 32, Red Cell Distribution Width 13.9, Platelet Count 238, Mean Platelet Volume 10.1, Immature Granulocyte % (Auto) 1, Neutrophils (%) (Auto) 87H, Lymphocytes (%) (Auto) 6L, Monocytes (%) (Auto) 6, Eosinophils (%) (Auto) 0, Basophils (%) (Auto) 0, Neutrophils # (Auto) 15.4H, Lymphocytes # (Auto) 1.1, Monocytes # (Auto) 1.1H, Eosinophils # (Auto) 0.0, Basophils # (Auto) 0.1, Immature Granulocyte # (Auto) 0.1, Sodium Level 142, Potassium Level 3.4L, Chloride Level 102, Carbon Dioxide Level 25, Anion Gap 15H, Blood Urea Nitrogen 18, Creatinine 0.85, Estimat Glomerular Filtration Rate 65, BUN/Creatinine Ratio 21, Glucose Level 130H, Calcium Level 9.4 Assessment/Plan Assessment/Plan Assess & Plan/Chief Complaint Sepsis possibly 2/2 UTI versus PNA. 2/4 SIRS criteria + in ER yesterday. Tachycardic with 15.5 WBC. Lactic acid 1.28 U/A + for UTI. Reviewed patients past cultures, does not have a hx of growing AB-resistant organisms. CXR showed new 5 lobe infiltrates, pulm vascular congestion, and cardiomegaly. WBC 17.7 today from 15.5 in ER yesterday. Delgado cultures pending. Zosyn Pulmonary infiltrates: Pulmonary edema Vs 5-lobe PNA. Vacular congestion and cardiomegaly. BNP 500 neg flu and COVID PCR IS and Albuterol Neb Consider 1x Lasix 20mg IV. Hypokalemia 3.4 today. Start 10mEq/hr K IV CAD HTN Hypercholesterolemia s/p 2019 stroke with residual R-side hemiparesis s/p 4x stent. 04/2020 echo: normal LVEF, moderate-severe mitral regurg, Pa Pressure 35-40. Restart home HTN and lipid meds. Oral hydration. Anxiety Hypothyroidism Home meds DVT prophylaxis: SCD, restart home Eliquis. GI prophylaxis: PO protonix. Lines and tubes: Urinary catheter, 1x PIV. ANNIE MELCHOR MD 07/08/21 0927: Subjective Date Seen by a Provider: Jul 08, 2021 Time Seen by a Provider: 08:40 Subjective/Events-last exam PT IS A 75 Y/O FEMALE WHO IS KNOWN TO ME FROM CLINIC. ADRIAN - HER DTR - IS AT THE BEDSIDE THIS MORNING. SHE REPORTS THAT HER MOM INDICATED SHE WAS FEELING "OKAY" AND SHE WAS REALLY THIRSTY THIS MORNING. ADRIAN CONTINUES TO DESIRE FOR HER MOM TO GO HOME ON HOSPICE AND A FAMILY THEY DO NOT WANT TO PUSH HER TO EAT OR DRINK THINGS SHE DOES NOT WANT. KELLEY IS NOT VERY VERBAL THIS MORNING. Review of Systems General: Fatigue HEENT: No Sore Throat; Other (DRY MOUTH) Pulmonary: No Dyspnea; Cough Cardiovascular: No: Chest Pain, Palpitations Gastrointestinal: No: Nausea, Abdominal Pain Genitourinary: Other (WRAY IN PLACE) 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: Weakness Objective Exam General: Alert, No Acute Distress HEENT: Atraumatic Neck: Supple Lungs: Other (DECREASED IN BASES WITH CRACKLES PRESENT) Abdomen: Normal Bowel Sounds, Soft, No Tenderness, No Hepatosplenomegaly, No Masses Extremities: No Clubbing, No Cyanosis, Normal Pulses Skin: No Significant Lesion Psych/Mental Status: Mental Status NL, Other (FLAT AFFECT, MINIMAL VERBAL RESPONSES, MOSTLY BLINKING OR NODDING OF HEAD) Assessment/Plan Assessment/Plan Assess & Plan/Chief Complaint URINARY TRACT INFECTION PROBABLE PNEUMONIA PULMONARY EDEMA HYPERTENSION CORONARY ARTERY DISEASE HISTORY OF MASSIVE STROKE MILD VASCULAR DEMENTIA CHRONIC ANXIETY URINARY TRACT INFECTION - STARTED ON ZOSYN, WHITE COUNT ELEVATED THIS MORNING - WAITING ON FINAL RESULTS - VERBAL REPORT WAS GRAM NEG ANDRESSA - WAITING ON CULTURE REPORT - CONTINUE WITH IV FLUIDS PROBABLE PNEUMONIA VERSUS PULMONARY EDEMA - MONITOR REPEAT CXR, CONTINUE WITH IV ANTIBIOTICS. - WILL GIVE LASIX THIS MORNING HYPOKALEMIA - MILD - WILL CHECK MAGNESIUM LEVEL AND REPLACE POTASSIUM IV TODAY. HYPERTENSION - CONTINUE WITH HOME MEDICATIONS ONCE MEDICATIONS HAVE BEEN RECONCILED. CORONARY ARTERY DISEASE - SUPPORTIVE CARE HISTORY OF MASSIVE STROKE - DISCUSSED WITH PATIENT'S DAUGHTER SHASTA - THEY ARE INTERESTED IN HOSPICE - [facility]. MILD VASCULAR DEMENTIA - SUPPORTIVE CARE CHRONIC ANXIETY - WILL RESTART ANXIOLYTIC. Supervisory-Addendum Brief Verification & Attestation Participated in pt care: history, MDM, physical Personally performed: exam, history, MDM, supervision of care Care discussed with: Medical Student Procedures: n/a Results interpretation: Verified all documentation AGREE WITH STUDENT NOTE DOCUMENTED EMILEE CLARK MED STUDENT Jul 08, 2021 08:45 ANNIE MELCHOR MD Jul 08, 2021 09:27
[2021-07-08] MEDS ORDERED: hydrALAZINE (APESOLINE) 20 MG/ML VIAL IV ONE (09:00)
[2021-07-08] MEDS ORDERED: FUROSEMIDE 40 MG/4 ML INJ (LASIX) IVP ONE (09:30)
[2021-07-08] MEDS ORDERED: ALPRAZolam 0.25 MG (XANAX) TAB PO ONE (09:30)
--- NOTE | 2021-07-08 09:40 | Diagnostic Imaging Report ---
INDICATION: Pneumonia. TECHNIQUE: Single view chest at 9:06 AM. CORRELATION STUDY: 07/07/2021. FINDINGS: Prominent severity of cardiac enlargement is again demonstrated. There is presence of pulmonary vascular congestion and perihilar edema but overall less severe and improved from prior. Mildly prominent interstitial markings are noted throughout both lung beltran. There may be trace pleural effusions. IMPRESSION: Findings of congestive heart failure are again demonstrated but overall appear improved and less severe from the previous day's study. Dictated by: Dictated on workstation # [id number]
[2021-07-08] MEDS ORDERED: NS IV 500 ML 500 ML ONE (10:14)
[2021-07-08] MEDS: FAMOTIDINE 20MG/2ML IV (PEPCID) IVP SCH ×2 (10:17→21:22)
[2021-07-08] MEDS: POTASSIUM CL 10MEQ/50ML IVPB 50 ML IV SCH ×2 (10:18→11:20)
[2021-07-08] MEDS ORDERED: OMEG-160 PO (11:12)
[2021-07-08] MEDS ORDERED: CARV3.122 PO (11:12)
[2021-07-08] MEDS ORDERED: FLUT12AE4 INH (11:12)
[2021-07-08] MEDS ORDERED: ALPR0.25 PO (11:12)
[2021-07-08] MEDS ORDERED: ASPI-1238 PO (11:12)
[2021-07-08] MEDS ORDERED: CITA40TA11 PO (11:12)
[2021-07-08] MEDS ORDERED: ALPR0.254 PO (11:12)
[2021-07-08] MEDS ORDERED: FLAX10004 PO (11:12)
[2021-07-08] MEDS ORDERED: MONT10TA32 PO (11:12)
[2021-07-08] MEDS ORDERED: DILT120T3 PO (11:12)
[2021-07-08] MEDS ORDERED: TIZA-169 PO (11:12)
[2021-07-08 12:00] VITALS: BP 123/80
[2021-07-08 16:00] VITALS: BP 144/80
[2021-07-08 20:00] VITALS: BP 135/84
[2021-07-08] MEDS ORDERED: TIZANIDINE HCL PO SCH (21:00)
[2021-07-08] MEDS: MONTELUKAST 10 MG (SINGULAIR) TAB PO SCH (21:27)
[2021-07-08] MEDS: APIXABAN 5 MG (ELIQUIS) TABLET PO SCH (21:27)
[2021-07-08] MEDS: ALPRAZolam 0.25 MG (XANAX) TAB PO SCH (21:27)
[2021-07-09] VITALS (7 sets, daily range): BP systolic 139–184; BP diastolic 81–105
[2021-07-09] MEDS: PIPERACILLIN/TAZOBACTAM (BULK) 4.5 GM in NS (IVPB) 100 ML IV SCH ×3 (05:16→19:51)
[2021-07-09] MEDS: CATHETER FLUSH 10 ML SYR IV SCH ×3 (05:16→21:45)
[2021-07-09] MEDS: RT-ALBUTEROL SULF 2.5 MG/3 ML PRE-MIX VIAL INH SCH ×4 (07:30→19:56)
[2021-07-09] MEDS: LEVOTHYROXINE 50 MCG (LEVOTHROID) TAB PO SCH (08:36)
[2021-07-09] MEDS: ALPRAZolam 0.25 MG (XANAX) TAB PO SCH ×2 (08:36→19:50)
[2021-07-09] MEDS: FAMOTIDINE 20MG/2ML IV (PEPCID) IVP SCH ×2 (08:36→19:50)
[2021-07-09] MEDS: APIXABAN 5 MG (ELIQUIS) TABLET PO SCH ×2 (08:37→19:50)
[2021-07-09 09:07] LABS: HEMATOCRIT 46 % (35-52); HEMOGLOBIN 14.4 g/dL (11.5-16.0); MEAN CORPUSCULAR HEMOGLOBIN 29 pg (25-34); MEAN CORPUSCULAR HGB CONC 31 g/dL (32-36); MEAN CORPUSCULAR VOLUME 91 fL (80-99); MEAN PLATELET VOLUME 10.3 fL (9.0-12.2); PLATELET COUNT 247 10^3/uL (130-400); WHITE BLOOD COUNT 14.5 10^3/uL (4.3-11.0)
--- NOTE | 2021-07-09 09:18 | Progress Note ---
EMILEE CLARK MED STUDENT 07/09/21 0918: Subjective Date Seen by a Provider: Jul 09, 2021 Time Seen by a Provider: 08:00 Subjective/Events-last exam Pt appears improved today, pt communicating some, shook head 'no' when asked if shes in any discomfort. ROS could not be obtained. Focused Exam Lactate Level 07/07/21 10:23: Lactic Acid Level 1.28 Objective Exam Last Set of Vital Signs Vital Signs Date Time Temp Pulse Resp B/P (MAP) Pulse Ox O2 Delivery O2 Flow Rate FiO2 07/09/21 08:00 36.4 96 20 166/81 (109) 97 Nasal Cannula 2.00 Capillary Refill : Less Than 3 Seconds I&O Intake and Output 07/09/21 00:00 Intake Total 700 ml Output Total 1350 ml Balance -650 ml Intake Oral 700 ml Output Urine Total 1350 ml General: Alert, No Acute Distress HEENT: Atraumatic, Mucous Memb Moist/[place] Neck: Supple Lungs: Clear to Auscultation, Normal Air Movement Heart: Other (tachycardic, irregular rhythem ) Abdomen: Soft, No Tenderness Extremities: No Clubbing, No Cyanosis Skin: No Breakdown, No Significant Lesion Neuro: Other (s/p stroke with residual R-sided hemiparesis. ) Psych/Mental Status: Mood NL Results Lab Laboratory Tests 07/09/21 09:00: Microbiology 07/07/21 Blood Culture - Preliminary, Resulted Klebsiella pneumoniae 07/07/21 Urine Culture - Preliminary, Resulted Klebsiella pneumoniae Escherichia coli Assessment/Plan Assessment/Plan Assess & Plan/Chief Complaint Sepsis 2/2 UTI. 2/4 SIRS criteria + in ER yesterday. Tachycardic with 15.5 WBC. Lactic acid 1.28 07/07 CXR showed new 5 lobe infiltrates, pulm vascular congestion, and cardiomegaly. Urine culture + for Klebseilla and E. Coli. Reviewed patients past cultures, does not have a hx of growing AB-resistant organisms. Sensitivity on urine culture pending - discharge tomorrow seems likely if sensitivities available then. d/c talbot catheter Repeat CBC Zosyn Pulmonary infiltrates: Pulmonary edema Vs 5-lobe PNA. Vacular congestion and cardiomegaly. neg flu and COVID PCR Repeat 07/08 CXR improved - decreased infiltrative markings. IS and Albuterol Neb Hypokalemia 3.4 K yesterday. 1.6 Mg. 2x 10mEq K bags given Repeat BMP. CAD HTN Hypercholesterolemia s/p 2019 stroke with residual R-side hemiparesis A-fib s/p 4x stent. 04/2020 echo: normal LVEF, moderate-severe mitral regurg, Pa Pressure 35-40. Pt in Afib during encounter this am. Coreg, eliquis Oral hydration. Anxiety Hypothyroidism Home meds DVT prophylaxis: SCD, restart home Eliquis. GI prophylaxis: IV pepcid 20mg BID . Lines and tubes: 1x PIV. ANNIE MELCHOR MD 07/09/212031: Subjective Date Seen by a Provider: Jul 09, 2021 Time Seen by a Provider: 08:45 Subjective/Events-last exam PT REPORTS THAT SHE IS "OKAY" - SHAKING HER HEAD YES TO FEELING BETTER - THEN SHE SPOKE A SENTENCE TO THIS PROVIDER NOT IN RESPONSE TO ANY QUESTIONS AND THEN DID NOT SPEAK AGAIN. HER DTR INDICATED THAT SHE WAS WANTING A DRINK, AND THEN DID NOT DRINK ONCE THEY GOT HER THE WATER. Review of Systems General: No Chills; Fatigue HEENT: Other (DIFFICULTY SWALLOWING) Pulmonary: No Dyspnea, No Cough Cardiovascular: No: Chest Pain Gastrointestinal: No: Nausea, Abdominal Pain Genitourinary: Other (TALBOT IN PLACE) 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: Weakness Objective Exam General: Alert, No Acute Distress HEENT: Atraumatic, Mucous Memb Moist/[place] Neck: Supple Lungs: Clear to Auscultation, Normal Air Movement Heart: Other (IRREGULARLY IRREGULAR) Abdomen: Soft, No Tenderness Extremities: No Clubbing, No Cyanosis Skin: No Breakdown Neuro: Other (CHRONIC PARESIS POST STROKE) Assessment/Plan Assessment/Plan Assess & Plan/Chief Complaint URINARY TRACT INFECTION PROBABLE PNEUMONIA PULMONARY EDEMA HYPERTENSION CORONARY ARTERY DISEASE HISTORY OF MASSIVE STROKE MILD VASCULAR DEMENTIA CHRONIC ANXIETY URINARY TRACT INFECTION - STARTED ON ZOSYN, WHITE COUNT ELEVATED THIS MORNING - WAITING ON FINAL SENSITIVITY RESULTS - ECOLI AND KLEBSIELLA - CONTINUE WITH IV FLUIDS PROBABLE PNEUMONIA VERSUS PULMONARY EDEMA - MONITOR REPEAT CXR, CONTINUE WITH IV ANTIBIOTICS. - GAVE LASIX YESTERDAY HYPOKALEMIA - MILD - - STATUS POST POTASSIUM REPLACEMENT IV. HYPERTENSION AND ATRIAL FIBRILLATION - CONTINUE WITH HOME MEDICATIONS (COREG AND ELIQUIS) CORONARY ARTERY DISEASE - SUPPORTIVE CARE HISTORY OF MASSIVE STROKE - DISCUSSED WITH PATIENT'S DAUGHTER - THEY ARE INTERESTED IN HOSPICE - [facility]. MILD VASCULAR DEMENTIA - SUPPORTIVE CARE CHRONIC ANXIETY -RESTARTED ANXIOLYTIC. Supervisory-Addendum Brief Verification & Attestation Participated in pt care: history, MDM, physical Personally performed: exam, history, MDM, supervision of care Care discussed with: Medical Student Procedures: n/a Results interpretation: Verified all documentation SEE MY DOCUMENTATION EMILEE CLARK MED STUDENT Jul 09, 2021 09:18 ANNIE MELCHOR MD Jul 09, 2021 20:32
[2021-07-09 09:32] LABS: POTASSIUM 3.4 MMOL/L (3.6-5.0)
[2021-07-09 09:33] LABS: CALCIUM 9.8 MG/DL (8.5-10.1)
[2021-07-09 09:38] LABS: CREATININE SERUM 0.98 MG/DL (0.60-1.30)
[2021-07-09] MEDS ORDERED: FUROSEMIDE 40 MG/4 ML INJ (LASIX) IVP ONE (12:00)
[2021-07-09] MEDS: MONTELUKAST 10 MG (SINGULAIR) TAB PO SCH (19:50)
[2021-07-10 04:00] VITALS: BP 172/112
[2021-07-10] MEDS: PIPERACILLIN/TAZOBACTAM (BULK) 4.5 GM in NS (IVPB) 100 ML IV SCH (04:06)
[2021-07-10] MEDS: CATHETER FLUSH 10 ML SYR IV SCH ×2 (05:09→14:46)
[2021-07-10 06:30] LABS: HEMATOCRIT 45 % (35-52); MEAN CORPUSCULAR HEMOGLOBIN 29 pg (25-34); MEAN CORPUSCULAR HGB CONC 32 g/dL (32-36); MEAN CORPUSCULAR VOLUME 91 fL (80-99); MEAN PLATELET VOLUME 10.8 fL (9.0-12.2); PLATELET COUNT 280 10^3/uL (130-400)
[2021-07-10 06:51] LABS: POTASSIUM 3.1 MMOL/L (3.6-5.0)
[2021-07-10 06:52] LABS: CALCIUM 9.7 MG/DL (8.5-10.1)
[2021-07-10 06:57] LABS: CREATININE SERUM 0.97 MG/DL (0.60-1.30)
[2021-07-10] MEDS: RT-ALBUTEROL SULF 2.5 MG/3 ML PRE-MIX VIAL INH SCH ×3 (06:58→15:10)
--- NOTE | 2021-07-10 07:35 | Diagnostic Imaging Report ---
INDICATION: CHF. Frontal chest obtained at 03:56 a.m. and compared with 07/08/2021. FINDINGS: There is cardiomegaly. There is mild central vascular congestion with interstitial edema. There is no change in appearance compared to 07/08/2021. There is no new consolidation or pneumothorax or pleural fluid. IMPRESSION: Cardiomegaly and congestive changes appear similar to the prior study. There is no new abnormality. Dictated by: Dictated on workstation # [id number]
[2021-07-10 08:00] VITALS: BP 198/132
[2021-07-10] MEDS: LEVOTHYROXINE 50 MCG (LEVOTHROID) TAB PO SCH (08:25)
[2021-07-10] MEDS: FAMOTIDINE 20MG/2ML IV (PEPCID) IVP SCH (08:25)
[2021-07-10] MEDS: ALPRAZolam 0.25 MG (XANAX) TAB PO SCH (08:26)
[2021-07-10] MEDS: APIXABAN 5 MG (ELIQUIS) TABLET PO SCH (08:27)
[2021-07-10] MEDS ORDERED: NS IV 1000 ML 1,000 ML IV ONE (09:00)
[2021-07-10] MEDS: POTASSIUM CL 10MEQ/50ML IVPB 50 ML IV SCH ×4 (10:27→13:43)
[2021-07-10] MEDS ORDERED: AMOX250S70 PO (10:59)
[2021-07-10] MEDS ORDERED: CARV6.252 PO (10:59)
--- NOTE | 2021-07-10 11:02 | Discharge Inst-Simple/Standard ---
Discharge Inst-Standard Reconcile Patient Problems Problems Reviewed?: Yes Discharge Medications New, Converted or Re-Newed RX: Transmitted to Pharmacy Patient Instructions/Follow Up Plan of Care/Instructions/FU: 1 wk [facility] Activity as Tolerated: Yes Discharge Diet: Regular Diet (as tolerated) Health Concerns: stroke hypertension afib uti Medication List: Active Scripts Active Augmentin 250-62.5 mg/5 ml (Amoxicillin/Potassium Clav) 250 Mg/5 Ml Susp.recon 10 Ml PO TID 7 Days Carvedilol 6.25 Mg Tablet 6.25 Mg PO BID Reported Fish Oil 1,000 mg Softgel (Curtis-3/Dha/Epa/Fish Oil) 1 Each Capsule 1 Each PO DAILY Citalopram HBr (Citalopram Hydrobromide) 40 Mg Tablet 40 Mg PO HS Diltiazem HCl 120 Mg Tablet 120 Mg PO 1500 PRN Montelukast Sodium 10 Mg Tablet 10 Mg PO HS Tizanidine HCl 2 Mg Tablet 1 Mg PO BID TAKES OF A 2MG TAB Advair Hfa 115-21 Mcg Inhaler (Fluticasone/Salmeterol) 12 Gm Hfa.aer.ad 2 Puff INH Q12H Xanax (Alprazolam) 0.25 Mg Tablet 0.25 Mg PO HS ALPRAZolam 0.25 Mg Tablet 0.125 Mg PO DAILY TAKES OF A 0.25MG TAB Carvedilol 3.125 Mg Tablet 3.125 Mg PO BID Aspirin EC (Aspirin) 81 Mg Tablet.dr 81 Mg PO DAILY Flaxseed Oil 1,000 Mg Capsule 1,000 Mg PO DAILY [Instaflex] 1 Tab PO DAILY Levothyroxine Sodium 50 Mcg Tablet 50 Mcg PO DAILY Iprat-Albut 0.5-3(2.5) mg/3 ml (Ipratropium/Albuterol Sulfate) 3 Ml Ampul.neb 3 Ml NEB QID PRN Atorvastatin Calcium 20 Mg Tablet 20 Mg PO HS Eliquis (Apixaban) 5 Mg Tablet 5 Mg PO BID Lab results: Laboratory Tests Test 07/10/21 05:40 Range/Units White Blood Count 13.0 H 4.3-11.0 10^3/uL Red Blood Count 4.88 3.80-5.11 10^6/uL Hemoglobin 14.0 11.5-16.0 g/dL Hematocrit 45 35-52 % Mean Corpuscular Volume 91 80-99 fL Mean Corpuscular Hemoglobin 29 25-34 pg Mean Corpuscular Hemoglobin Concent 32 32-36 g/dL Red Cell Distribution Width 13.8 10.0-14.5 % Platelet Count 280 130-400 10^3/uL Mean Platelet Volume 10.8 9.0-12.2 fL Sodium Level 146 H 135-145 MMOL/L Potassium Level 3.1 L 3.6-5.0 MMOL/L Chloride Level 102 98-107 MMOL/L Carbon Dioxide Level 28 21-32 MMOL/L Anion Gap 16 H 5-14 MMOL/L Blood Urea Nitrogen 28 H 7-18 MG/DL Creatinine 0.97 0.60-1.30 MG/DL Estimat Glomerular Filtration Rate 56 BUN/Creatinine Ratio 29 Glucose Level 146 H 70-105 MG/DL Calcium Level 9.7 8.5-10.1 MG/DL My orders: Orders - ANNIE MELCHOR MD Carvedilol Tablet (Coreg Tablet) (07/09/21 21:00) Hydralazine Tablet (Apresoline Tablet) (07/10/21 07:15) Potassium Cl 10meq/50ml Ivpb (Kcl 10 Meq (07/10/21 08:45) Ns Iv 1000 Ml (Sodium Chloride 0.9%) (07/10/21 09:00) Cefazolin Injection (Ancef Injection) (07/10/21 14:00) Dys2 Mechanically Altered (07/10/21 Lunch) Attending Discharge Inpt/Inobs (07/10/21 10:56) ANNIE MELCHOR MD Jul 10, 2021 11:02
--- NOTE | 2021-07-10 11:03 | Discharge Summary ---
Diagnosis/Chief Complaint Date of Admission Jul 07, 2021 at 14:05 Date of Discharge Discharge Date: Jul 10, 2021 Discharge Time: 1400 Reason Hospital Visit PT IS A 75 Y/O FEMALE WHO IS KNOWN TO ME FROM CLINIC. SHE PRESENTED TO THE EMERGENCY DEPARTMENT AFTER HAVING INCREASING LETHARGY AND FAMILY UNABLE TO CARE FOR HER AT HOME. THE ER WORK-UP SHOWED AN ELEVATED WHITE COUNT, AND POSSIBLE PN EUMONIA VERSUS INTERSTITIAL EDEMA WITH SUPERIMPOSED UTI. Discharge Summary Discharge Physical Examination Allergies: Coded Allergies: cefdinir (Unverified Allergy, Mild, Rash, 11/12/20) Sulfa (Sulfonamide Antibiotics) (Verified Allergy, Unknown, 12/27/17) Vitals & I&Os Vital Signs Date Time Temp Pulse Resp B/P (MAP) Pulse Ox O2 Delivery O2 Flow Rate FiO2 07/10/21 10:55 97 Nasal Cannula 2.00 07/10/21 08:00 36.6 95 18 198/132 (154) Hospital Course Pending Labs Laboratory Tests 07/10/21 05:40: White Blood Count 13.0, Red Blood Count 4.88, Hemoglobin 14.0, Hematocrit 45, Mean Corpuscular Volume 91, Mean Corpuscular Hemoglobin 29, Mean Corpuscular Hemoglobin Concent 32, Red Cell Distribution Width 13.8, Platelet Count 280, Mean Platelet Volume 10.8, Sodium Level 146, Potassium Level 3.1, Chloride Level 102, Carbon Dioxide Level 28, Anion Gap 16, Blood Urea Nitrogen 28, Creatinine 0.97, Estimat Glomerular Filtration Rate 56, BUN/Creatinine Ratio 29, Glucose Level 146, Calcium Level 9.7 Discharge Instructions to patient/family Please see electronic discharge instructions given to patient. Discharge Medications Reviewed and agree with Discharge Medication list on patient's Discharge Inst ruction sheet ANNEI MELCHOR MD Jul 10, 2021 11:03
[2021-07-10 12:00] VITALS: BP 168/95
[2021-07-10] MEDS ORDERED: ceFAZolin 1,000 MG/SWFI 10 ML IV PUSH IV SCH ×2 (14:00)
[2021-07-10 15:45] VITALS: BP 168/95
== END 2021-07-10 15:45 | disposition hospice, home (50) | DRG 871 ==
LOC: EDUNIT# 10:11 → ER 10:13 → 4TH 14:05
PROVIDERS: ADMIT Family Medicine; ATTEND Family Medicine
DX: A41.89 Other specified sepsis (principal); J18.9 Pneumonia, unspecified organism; N39.0 Urinary tract infection, site not specified; I69.351 Hemiplegia and hemiparesis following cerebral infarction affecting right dominant side; A41.51 Sepsis due to Escherichia coli [E. coli]; F01.50 Vascular dementia, unspecified severity, without behavioral disturbance, psychotic disturbance, mood disturbance, and anxiety; I11.0 Hypertensive heart disease with heart failure; Z66 Do not resuscitate; Z20.822 Contact with and (suspected) exposure to COVID-19; K21.9 Gastro-esophageal reflux disease without esophagitis; I50.9 Heart failure, unspecified; J44.9 Chronic obstructive pulmonary disease, unspecified; I69.391 Dysphagia following cerebral infarction; R13.10 Dysphagia, unspecified; E87.6 Hypokalemia; E03.9 Hypothyroidism, unspecified; I48.91 Unspecified atrial fibrillation; Z79.01 Long term (current) use of anticoagulants; I25.10 Atherosclerotic heart disease of native coronary artery without angina pectoris; E78.00 Pure hypercholesterolemia, unspecified; M19.91 Primary osteoarthritis, unspecified site; M06.9 Rheumatoid arthritis, unspecified; F41.9 Anxiety disorder, unspecified; F32.9 Major depressive disorder, single episode, unspecified; Z86.16 Personal history of COVID-19; Z99.81 Dependence on supplemental oxygen; Z79.82 Long term (current) use of aspirin; Z79.52 Long term (current) use of systemic steroids; Z95.5 Presence of coronary angioplasty implant and graft; Z88.1 Allergy status to other antibiotic agents; Z88.2 Allergy status to sulfonamides; Z82.49 Family history of ischemic heart disease and other diseases of the circulatory system
CPT/HCPCS: 36415; 51702; 71045; 80048; 80053; 81000; 83605; 83735; 83880; 84145; 84484; 85007; 85025; 85027; 85610; 85730; 87040; 87077; 87088; 87186; 87636; 93005; 94640; 94760; 96361; 96365; 96375